=== PATIENT | female | born 1975 | race Caucasian/White ===

== ENCOUNTER 2022-03-11 22:39 | Emergency (ER) | payer OTHER, SELFPAY ==
--- OUTSIDE RECORDS SUMMARY | 2022-03-11 22:58 | XMS REPORT | Continuity of Care Document ---
:[address] [facility] t Address [address] [place] [address] Care Team Providers Name Role Phone SONG Primary Care Physician Unavailable Maynor LOVETT, L Attending Clinician Unavailable Tadeo PITTS Attending Clinician TADEO Attending Clinician Unavailable BIPIN Attending Clinician Unavailable Mac PITTS S Attending Clinician Davon Attending Clinician Karina FU, F Attending Clinician Arnoldo PITTS Attending Clinician LUCILA MONTES Attending Clinician Unavailable Tarun PITTS Attending Clinician Alex LOPES Attending Clinician Ridge FU Attending Clinician Malinda Tadeo MD Attending Clinician Iris Duval MD Attending Clinician Wilson Perez MD Attending Clinician Truong YIP, G Attending Clinician Singer LOPES Attending Clinician TUSHAR Attending Clinician Unavailable Tushar ANP Attending Clinician Sarah ROMAN, S Attending Clinician Sonam PITTS, Christopher Attending Clinician Lee RN, E Attending Clinician Deuce LOVETT Attending Clinician Unavailable Cassandra Sevilla DO Attending Clinician Juan Ramon PITTS Attending Clinician Sirisha PITTS, H Attending Clinician Dev Pandey Attending Clinician Unavailable WILSON PEREZ Attending Clinician Unavailable JUAN RAMON Attending Clinician Unavailable Lorena PITTS, Elijah Attending Clinician Unknown Attending Clinician Unavailable GREYSON WILEY Attending Clinician Unavailable Greyson Wiley MD Attending Clinician Pob, Lab Main Attending Clinician Unavailable Zack Su MD Attending Clinician Arnoldo PITTS Admitting Clinician Alex LOPES Admitting Clinician Iris Duval MD Admitting Clinician Sonam PITTS, Christopher Admitting Clinician [phone] Juan Ramon PITTS Admitting Clinician JUAN RAMON Admitting Clinician Unavailable ARNOLDO Admitting Clinician Unavailable Claudine PITTS, Greyson Admitting Clinician Payers Payer Name Policy Type Policy Number Effective Date Expiration Date S [facility] [place] PEND[place] 2021 00:00:00 Problems Condition Condition Condition Status Onset Resolution Last Treating Co mments Source Name Details Category Date Date Treatment Clinician Date Abdominal Abdominal Disease Active Uni vers pain pain 6-06 ity of 00:00: [address] Colitis Colitis Disease Active Univers 4-25 ity of 00:00: [address] Nausea & Nausea & Disease Active Unive rs vomiting vomiting 3-12 ity of 00:00: [address] Current Current Disease Active Univers mild mild 1-15 ity of episode [place] major major 00 Medical depressive depressive Br anch disorder, disorder, unspecifie unspecifie d whether d whether recurrent recurrent Hypokalemi Hypokalemi Disease Active U nivers a a 1-15 ity of 00:00: [place] 00 Medical Branch Colitis Colitis Disease Active Univers due to due to 1-15 ity of Clostridiu Clostridiu [place] m m 00 Medical difficile difficile Bran ch Intractabl Intractabl Disease Active 2019-11 U nivers e e 2-17 [place] of abdominal abdominal 00:[place] pain pain 00 [facility] Alcohol-in Alcohol-in Disease Active 2019-11 U nivers duced duced 1-10 ity of chronic chronic 00:00: [place] pancreatit pancreatit 00 Me dical is is Branch Screening Screening Disease Active 2019-11 Uni vers for for 1-10 ity of malignant malignant 00:[place] neoplasm neoplasm 00 Medica l of the of the Branch cervix cervix Need for Need for Disease Active 2019-11 Unive rs diphtheria diphtheria 1-10 it y of -tetanus-p -tetanus-p 00:00[place] ertussis ertussis 00 Medica l (Tdap) (Tdap) Branch vaccine vaccine Need for Need for Disease Active 2019-11 Unive rs immunizati immunizati 1-10 it y of on against on against 00:00: [place] influenza influenza 00 [facility] 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 00:00: [place] gland, gland, 00 Medical unspecifie unspecifie Br anch d d laterality laterality 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 arnieers protein-ca protein-ca 7-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 00:00: [place] malnutriti malnutriti 00 Me dical on on Branch Chronic Chronic Disease Active Univers generalize generalize 6-11 it y of d pain d pain 00:00: [place] 00 [facility] Branch Does not Does not Disease Active Unive rs have have 6-11 ity of health health 00:00: [place] insurance insurance 00 [facility] Intractabl Intractabl Disease Active U nivers e vomiting e vomiting 5-24 it y of 00:00: [place] 00 [facility] Branch Alcohol-in Alcohol-in Disease Active U nivers duced duced 5-01 ity of acute acute 00:00: [place] pancreatit pancreatit 00 Me dical is, is, Branch unspecifie unspecifie d d complicati complicati on status on status Alcoholism Alcoholism Disease Active 2020- U nivers 03-13 ity of 00:00: [place] [facility] Generalize Generalize Disease Active 2020- U nivers d d 03-13 ity of abdominal abdominal 00:00[place] discomfort discomfort 00 Me dical Branch Essential Essential Disease Active Uni vers hypertensi hypertensi 03-13 it y of on on 00:00: [place] [facility] Current Current Disease Active 2020- Univers 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-13 ity of episode of episode of 00:[place] major major 00 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, features, unspecifie unspecifie d whether d whether recurrent recurrent Anxiety Anxiety Disease Active 2019- Univers 03-13 ity of 00:00: [place] [facility] Encounter Encounter Disease Active Uni vers for for 03-13 ity of screening screening 00:00: [place] mammogram mammogram 00 [facility] for for Branch malignant malignant neoplasm neoplasm of breast of breast [facility] Disease Active Unive rs discharge discharge 03-13 ity of follow-up follow-up 00:00[place] [facility] Nicotine Nicotine Disease Active Unive rs dependence dependence 03-13 it y of , , 00:00: [place] cigarettes cigarettes 00 Me dical , , Branch uncomplica uncomplica carrie carrie Tobacco Tobacco Disease Active Univers dependence dependence 03-13 it y of 00:00: [place] [facility] Abnormal Abnormal Disease Active Unive rs CT of the CT of the 03-04 ity of abdomen abdomen 00:00: [place] 00 Medical Branch Vomiting, Vomiting, Disease Active 2020 Uni vers intractabi intractabi 03-02 it y of lity of lity of 00:00: [place] vomiting vomiting 00 Medica l not not Branch specified, specified, presence presence of nausea of nausea not not specified, specified, unspecifie unspecifie d vomiting d vomiting type type Allergies, Adverse Reactions, Alerts Allergy Allergy Status Severity Reaction(s) Onset Inactive Treating Comm ents Source Name Type Date Date Clinician Ceftriax Propensi Active Anaphylaxis 2020-0 U nivers one ty to 4-22 ity of Sodium adverse 00:00: [place] reaction 00 Medical s Branch CEFTRIAX DRUG Active Anaphylaxis 2020-0 Uni vers ONE INGREDI 4-22 ity of SODIUM 00:00: [place] 00 Medical Branch NO KNOWN Drug Active Univers ALLERGIE Class ity of S [facility] Social History Social Habit Start Date Stop Date Quantity Comments Source History of tobacco Cigarette Smoker [facility] Exposure to Not sure University SARS-CoV-2 (event) [facility] Cigarettes smoked 2021-05-01 2021-05-01 Univers ity of current (pack per 00:00:00 00:00:00 [facility] ) - Reported Branch Cigarette 2021-05-01 2021-05-01 University of pack-years 00:00:00 00:00:00 [facility] Tobacco use and 2021-05-01 2021-05-01 Never used Universit y of exposure 00:00:00 00:00:00 [facility] Alcohol intake 2021-05-01 2021-05-01 Ex-drinker University of 00:00:00 00:00:00 (finding) [facility] Branch History SDOH 2020-09-29 2020-09-29 3 University o f Financial 00:00:00 00:00:00 [place] [facility] History SDME Food 2020-09-29 2020-09-29 2 Univers ity of Worry 00:00:00 00:00:00 [facility] History SDOH Food 2020-09-29 2020-09-29 2 Univers ity of Scarcity 00:00:00 00:00:00 [facility] History SDOH 2020-09-29 2020-09-29 1 University o f Transport Med 00:00:00 00:00:00 [place] [facility] History SDOH 2020-09-29 2020-09-29 2 University o f Transport Non-Med 00:00:00 00:00:00 [facility] edical Branch History SDOH 2020-09-28 2020-09-28 17 University o f Education 00:00:00 00:00:00 [facility] Alcohol Comment 2020-03-05 2020-03-05 quit Nov 2019 Univer sity of 00:00:00 00:00:00 [facility] Sex Ass[birth year] At [birth year] Universit y of 00:00:00 00:00:00 [place] [facility] Smoking Status Start Date Stop Date Source Unknown if ever smoked Universit y of [facility] Current every day smoker 2021-05-01 00:00[facility]00 [facility] Start Stop Current Ordering Indication Dosage Frequency Signature Comments Components Source Medication Medication Date Date Medication? Clinician (SIG) Name Name pantoprazol No 40mg Take 40 mg Univers e 8-07-08 by mouth ity of (PROTONIX) 22:05: 00:00 [place]. [place] 40 [place] EC 06 :00 Medical tablet Branch pantoprazol 2020- No 40mg Take 40 mg Univers e 8-26 -26 by mouth ity of (PROTONIX) 22:05: 00:00 daily. [place] 40 mg EC 06 :00 Medical tablet Branch PANTOPRAZOL Yes [id number] TAKE ONE Univers E 40 mg EC 8-26 TABLET BY ity of tablet 00:00: MOUTH [place] DAILY Medical Branch PANTOPRAZOL Yes [id number] TAKE ONE Univers E 40 mg EC 8-26 TABLET BY ity of tablet 00:00: MOUTH [place] DAILY Medical Branch PANTOPRAZOL Yes [id number] TAKE ONE Univers E 40 mg EC 8-26 TABLET BY ity of tablet 00:00: MOUTH [place] DAILY Medical Branch PANTOPRAZOL Yes [id number] TAKE ONE Univers E 40 mg EC 8-26 TABLET BY ity of tablet 00:00: MOUTH [place] DAILY Medical Branch levoFLOXaci 2020- No 750mg 750 mg, U nivers n 04-30 Oral, ONCE ity of (LEVAQUIN) 08:45: 07:44 NOW, 1 [place] tablet 750 00 :00 dose, Fri Medi eugenio mg 04/30/21 at Branch 0345, PINEDA
Re ason for Anti-Infec tive: Empiric Therapy for Suspected Infection< br>Empiric Therapy Site: Respirator y
Durat ion of therapy: 72 hours iopamidol 2020- No [id number] 120mL 120 mL, Univers (ISOVUE 04-3018 Intravenou ity o f 370-500 mL) 08:00: 06:48 s, ONCE, 1 [place] injection 00 :00 dose, Fri Medic al 120 mL 6/18/21 at Branch 0300, Routine ketorolac 2020- No 30mg 30 mg, Unive rs (TORADOL) 04-30 Slow IV ity of injection 07:30: 06:37 Push, [place] 30 mg 00 :00 ONCE, 1 Medical dose, Fri Branch 04/30/21 at 0230, Routine
membership counselor approving Restricted medication : RUTH WATTS levoFLOXaci Yes [id number] 750mg Take 1 Univers n 6-18 tablet by ity of (LEVAQUIN) 00:00: mouth [place] 750 mg 00 every 24 Medical tablet (twenty-fo Branch ur) hours. traMADoL 0 Yes [id number] 50mg Take 1 Univers (ULTRAM) 50 6-18 tablet by ity of mg tablet 00:00: mouth [place] 00 every 6 Medical (six) Branch hours as needed for Pain (scale 7-10). Indication s: acute pain levoFLOXaci Yes [id number] 750mg Take 1 Univers n 6-18 tablet by ity of (LEVAQUIN) 00:00: mouth [place] 750 mg 00 every 24 Medical tablet (twenty-fo Branch ur) hours. traMADoL 0 Yes [id number] 50mg Take 1 Univers (ULTRAM) 50 6-18 tablet by ity of mg tablet 00:00: mouth [place] 00 every 6 Medical (six) Branch hours as needed for Pain (scale 7-10). Indication s: acute pain levoFLOXaci 0 Yes [id number] 750mg Take 1 Univers n 6-18 tablet by ity of (LEVAQUIN) 00:00: mouth [place] 750 mg 00 every 24 Medical tablet (twenty-fo Branch ur) hours. traMADoL 2020-0 Yes [id number] 50mg Take 1 Univers (ULTRAM) 50 6-18 tablet by ity of mg tablet 00:00: mouth [place] 00 every 6 Medical (six) Branch hours as needed for Pain (scale 7-10). Indication s: acute pain levoFLOXaci 2020-0 Yes [id number] 750mg Take 1 Univers n 6-18 tablet by ity of (LEVAQUIN) 00:00: mouth [place] 750 mg 00 every 24 Medical tablet (twenty-fo Branch ur) hours. traMADoL 2021-0 Yes [id number] 50mg Take 1 Univers (ULTRAM) 50 6-18 tablet by ity of mg tablet 00:00: mouth [place] 00 every 6 Medical (six) Branch hours as needed for Pain (scale 7-10). Indication s: acute pain levoFLOXaci 0 Yes [id number] 750mg Take 1 Univers n 6-18 tablet by ity of (LEVAQUIN) 00:00: mouth [place] 750 mg 00 every 24 Medical tablet (twenty-fo Branch ur) hours. traMADoL Yes [id number] 50mg Take 1 Univers (ULTRAM) 50 6-18 tablet by ity of mg tablet 00:00: mouth [place] 00 every 6 Medical (six) Branch hours as needed for Pain (scale 7-10). Indication s: acute pain levoFLOXaci Yes [id number] 750mg Take 1 Univers n 6-18 tablet by ity of (LEVAQUIN) 00:00: mouth [place] 750 mg 00 every 24 Medical tablet (twenty-fo Branch ur) hours. traMADoL Yes [id number] 50mg Take 1 Univers (ULTRAM) 50 6-18 tablet by ity of mg tablet 00:00: mouth [place] 00 every 6 Medical (six) Branch hours as needed for Pain (scale 7-10). Indication s: acute pain amLODIPine Yes 10mg Take 10 mg U nivers 10 mg 6-08 by mouth ity of tablet 20:57: daily. [address] busPIRone 5 Yes 5mg Take 5 mg U nivers mg tablet 6-08 by mouth 2 ity of 20:57: (two) [place] 17 times Medical daily. Branch FLUoxetine Yes 40mg Take 40 mg U nivers 40 mg 6-08 by mouth ity of capsule 20:57: daily. [address] lipase-prot Yes 2{capsu Take 2 U nivers ease-amylas 6-08 le} capsules ity of e (CREON) 20:57: by mouth [place] 36,000-114, 17 before Medica l 000- meals. Branch 180,000 Take 2 unit CpDR capsules by mouth with meals and 1 with each snack. metoprolol Yes 25mg Take 25 mg U nivers succinate 6-08 by mouth ity of XL 25 mg 24 20:57: daily. [place] hr tablet 17 Medical Branch pantoprazol Yes 40mg Take 40 mg Univers e 6-08 by mouth ity of (PROTONIX) 20:57: daily. [place] 40 mg EC 17 Medical tablet Branch amLODIPine Yes 10mg Take 10 mg U nivers 10 mg 6-08 by mouth ity of tablet 20:57: daily. [address] busPIRone 5 Yes 5mg Take 5 mg U nivers mg tablet 6-08 by mouth 2 ity of 20:57: (two) [place] 17 times Medical daily. Branch FLUoxetine Yes 40mg Take 40 mg U nivers 40 mg 6-08 by mouth ity of capsule 20:57: daily. [address] lipase-prot Yes 2{capsu Take 2 U nivers ease-amylas 6-08 le} capsules ity of e (CREON) 20:57: by mouth [place] 36,000-114, 17 before Medica l 000- meals. Branch 180,000 Take 2 unit CpDR capsules by mouth with meals and 1 with each snack. metoprolol Yes 25mg Take 25 mg U nivers succinate 6-08 by mouth ity of XL 25 mg 24 20:57: daily. [place] hr tablet [address] [place] [address] Branch pantoprazol Yes 40mg Take 40 mg Univers e 6-08 by mouth ity of (PROTONIX) 20:57: daily. [place] 40 mg EC 17 Medical tablet Branch amLODIPine Yes 10mg Take 10 mg U nivers 10 mg 6-08 by mouth ity of tablet 20:57: daily. [address] busPIRone 5 Yes 5mg Take 5 mg U nivers mg tablet 6-08 by mouth 2 ity of 20:57: (two) [place] 17 times Medical daily. Branch FLUoxetine 0 Yes 40mg Take 40 mg U nivers 40 mg 6-08 by mouth ity of capsule 20:57: daily. [address] lipase-prot Yes 2{capsu Take 2 U nivers ease-amylas 6-08 le} capsules ity of e (CREON) 20:57: by mouth [place] 36,000-114, 17 before Medica l 000- meals. Branch 180,000 Take 2 unit CpDR capsules by mouth with meals and 1 with each snack. metoprolol 0 Yes 25mg Take 25 mg U nivers succinate 6-08 by mouth ity of XL 25 mg 24 20:57: daily. [place] hr tablet 17 Medical Branch pantoprazol Yes 40mg Take 40 mg Univers e 6-08 by mouth ity of (PROTONIX) 20:57: daily. [place] 40 mg EC 17 Medical tablet Branch amLODIPine 0 Yes 10mg Take 10 mg U nivers 10 mg 6-08 by mouth ity of tablet 20:57: daily. [address] Branch busPIRone 5 Yes 5mg Take 5 mg U nivers mg tablet 6-08 by mouth 2 ity of 20:57: (two) [place] 17 times Medical daily. Branch FLUoxetine Yes 40mg Take 40 mg U nivers 40 mg 6-08 by mouth ity of capsule 20:57: daily. [address] lipase-prot Yes 2{capsu Take 2 U nivers ease-amylas 6-08 le} capsules ity of e (CREON) 20:57: by mouth [place] 36,000-114, 17 before Medica l 000- meals. Branch 180,000 Take 2 unit CpDR capsules by mouth with meals and 1 with each snack. metoprolol Yes 25mg Take 25 mg U nivers succinate 6-08 by mouth ity of XL 25 mg 24 20:57: daily. [place] hr tablet Medical Branch pantoprazol Yes 40mg Take 40 mg Univers e 6-08 by mouth ity of (PROTONIX) 20:57: daily. [place] 40 mg EC 17 Medical tablet Branch amLODIPine 0 Yes 10mg Take 10 mg U nivers 10 mg 6-08 by mouth ity of tablet 20:57: daily. [address] busPIRone 5 Yes 5mg Take 5 mg U nivers mg tablet 6-08 by mouth 2 ity of 20:57: (two) [place] 17 times Medical daily. Branch FLUoxetine 0 Yes 40mg Take 40 mg U nivers 40 mg 6-08 by mouth ity of capsule 20:57: daily. [address] lipase-prot Yes 2{capsu Take 2 U nivers ease-amylas 6-08 le} capsules ity of e (CREON) 20:57: by mouth [place] 36,000-114, 17 before Medica l 000- meals. Branch 180,000 Take 2 unit CpDR capsules by mouth with meals and 1 with each snack. metoprolol Yes 25mg Take 25 mg U nivers succinate 6-08 by mouth ity of XL 25 mg 24 20:57: daily. [place] hr tablet 17 [facility] amLODIPine Yes 10mg Take 10 mg U nivers 10 mg 6-08 by mouth ity of tablet 20:57: daily. [address] busPIRone 5 Yes 5mg Take 5 mg U nivers mg tablet 6-08 by mouth 2 ity of 20:57: (two) [place] [address] times Medical daily. Branch FLUoxetine Yes 40mg Take 40 mg U nivers 40 mg 6-08 by mouth ity of capsule 20:57: daily. [address] lipase-prot Yes 2{capsu Take 2 U nivers ease-amylas 6-08 le} capsules ity of e (CREON) 20:57: by mouth [place] 36,000-114, 17 before Medica l 000- meals. Branch 180,000 Take 2 unit CpDR capsules by mouth with meals and 1 with each snack. metoprolol Yes 25mg Take 25 mg U nivers succinate 6-08 by mouth ity of XL 25 mg 24 20:57: daily. [place] hr tablet [address] [place] [address] amLODIPine Yes 10mg Take 10 mg U nivers 10 mg 6-08 by mouth ity of tablet 20:57: daily. [address] busPIRone 5 Yes 5mg Take 5 mg U nivers mg tablet 6-08 by mouth 2 ity of 20:57: (two) [place] [address] times Medical daily. Branch FLUoxetine Yes 40mg Take 40 mg U nivers 40 mg 6-08 by mouth ity of capsule 20:57: daily. [address] lipase-prot Yes 2{capsu Take 2 U nivers ease-amylas 6-08 le} capsules ity of e (CREON) 20:57: by mouth [place] 36,000-114, 17 before Medica l 000- meals. Branch 180,000 Take 2 unit CpDR capsules by mouth with meals and 1 with each snack. metoprolol Yes 25mg Take 25 mg U nivers succinate 6-08 by mouth ity of XL 25 mg 24 20:57: daily. [place] hr tablet [address] [place] [address] Branch amLODIPine Yes 10mg Take 10 mg U nivers 10 mg 6-08 by mouth ity of tablet 20:57: daily. [address] busPIRone 5 Yes 5mg Take 5 mg U nivers mg tablet 6-08 by mouth 2 ity of 20:57: (two) [place] [address] times [facility] daily. Branch FLUoxetine Yes 40mg Take 40 mg U nivers 40 mg 6-08 by mouth ity of capsule 20:57: daily. [address] lipase-prot Yes 2{capsu Take 2 U nivers ease-amylas 6-08 le} capsules ity of e (CREON) 20:57: by mouth [place] 36,000-114, 17 before Medica l 000- meals. Branch 180,000 Take 2 unit CpDR capsules by mouth with meals and 1 with each snack. metoprolol Yes 25mg Take 25 mg U nivers succinate 6-08 by mouth ity of XL 25 mg 24 20:57: daily. [place] hr tablet 17 [facility] Branch acetaminoph Yes [id number] 1{tbl} Take 1-2 Univers en-codeine 6-08 tablets by ity of 300-30 mg 00:00: mouth [place] tablet 00 every 6 Medical (six) Branch hours as needed for Pain (scale 4-6). Indication s: acute pain acetaminoph Yes 4647 1{tbl} Take 1-2 Univers en-codeine 6-08 tablets by ity of 300-30 mg 00:00: mouth [place] tablet 00 every 6 Medical (six) Branch hours as needed for Pain (scale 4-6). Indication s: acute pain acetaminoph Yes 4647 1{tbl} Take 1-2 Univers en-codeine 6-08 tablets by ity of 300-30 mg 00:00: mouth [place] tablet 00 every 6 Medical (six) Branch hours as needed for Pain (scale 4-6). Indication s: acute pain acetaminoph 2020-0 Yes 4647 1{tbl} Take 1-2 Univers en-codeine 6-08 tablets by ity of 300-30 mg 00:00: mouth [place] tablet 00 every 6 Medical (six) Branch hours as needed for Pain (scale 4-6). Indication s: acute pain acetaminoph 2020-0 Yes 4647 1{tbl} Take 1-2 Univers en-codeine 6-08 tablets by ity of 300-30 mg 00:00: mouth [place] tablet 00 every 6 Medical (six) Branch hours as needed for Pain (scale 4-6). Indication s: acute pain acetaminoph 2020-0 Yes 4647 1{tbl} Take 1-2 Univers en-codeine 6-08 tablets by ity of 300-30 mg 00:00: mouth [place] tablet 00 every 6 Medical (six) Branch hours as needed for Pain (scale 4-6). Indication s: acute pain acetaminoph 2020-0 Yes 4647 1{tbl} Take 1-2 Univers en-codeine 6-08 tablets by ity of 300-30 mg 00:00: mouth [place] tablet 00 every 6 Medical (six) Branch hours as needed for Pain (scale 4-6). Indication s: acute pain acetaminoph 2020-0 Yes 4647 1{tbl} Take 1-2 Univers en-codeine 6-08 tablets by ity of 300-30 mg 00:00: mouth [place] tablet 00 every 6 Medical (six) Branch hours as needed for Pain (scale 4-6). Indication s: acute pain nicotine 14 2020- No [id number] 1{patch Apply 1 Univers mg/24 hr 04-20 } Patch to ity of patch 00:00: 04:59 area(s) [place] 00 :00 every 24 Medical (twenty-fo Branch ur) hours for 30 days. nicotine 14 2020-2020- No [id number] 1{patch Apply 1 Univers mg/24 hr 04-20 } Patch to ity of patch 00:00: 04:59 area(s) [place] 00 :00 every 24 Medical (twenty-fo Branch ur) hours for 30 days. nicotine 14 2020- No [id number] 1{patch Apply 1 Univers mg/24 hr 04-20 } Patch to ity of patch 00:00: 04:59 area(s) [place] 00 :00 every 24 Medical ([facility] Branch ur) hours for 30 days. levoFLOXaci 2020- No [id number] 750mg Take 1 Univers n 750 mg 04-20 tablet by ity o f tablet 00:00: 04:59 mouth [place] 00 :00 every 24 Medical ([facility] Branch ur) hours for 4 days. metroNIDAZO 2020- No [id number] 500mg Take 2 Univers LE 250 mg 04-20 tablets by ity of tablet 00:00: 04:59 mouth [place] 00 :00 every 8 Medical (eight) Branch hours for 4 days. levoFLOXaci 2020- No [id number] 750mg Take 1 Univers n 750 mg 04-20 tablet by ity o f tablet 00:00: 04:59 mouth [place] 00 :00 every 24 Medical ([facility] Branch ur) hours for 4 days. metroNIDAZO 2020- No [id number] 500mg Take 2 Univers LE 250 mg 04-20 tablets by ity of tablet 00:00: 04:59 mouth [place] 00 :00 every 8 Medical (eight) Branch hours for 4 days. levoFLOXaci Yes 750mg 750 mg, IV Univers n in D5W 04-19 Piggyback, ity o f (LEVAQUIN) 19:00: Q24H ABX, [place] mg/150 00 First dose Med ical mL (after Branch Piggyback last 750 mg reorder) on Mon04/19/21 at 1400, Until Discontinu ed, 150 mL
Reas on for Anti-Infec tive: Empiric Therapy for Suspected Infection< br>Empiric Therapy Site: Abdominal< br>Duratio n of therapy: 7 days FLUoxetine Yes 40mg 40 mg, Unive rs (PROZAC) 04-19 Oral, ity of capsule 40 14:00: DAILY, [place] mg 00 First dose Medical on Mon04/19/21 at 0900, Until Discontinu ed, Routine pantoprazol Yes 40mg 40 mg, Univ ers e 04-19 Oral, ity of (PROTONIX) 14:00: DAILY, [place] EC tablet 00 First dose Medi eugenio 40 mg on Mon04/19/21 at 0900, Until Discontinu ed, Routine metoprolol Yes 25mg 25 mg, [facility] rs succinate 04-19 Oral, ity of XL (TOPROL 14:00: DAILY, [place] XL) tablet 00 First dose Med ical 25 mg on Mon04/19/21 at 0900, Until Discontinu ed, Routine amLODIPine Yes 10mg 10 mg, Unive rs (NORVASC) 04-19 Oral, ity of tablet 10 14:00: DAILY, [place] mg 00 First dose Medical on Mon04/19/21 at 0900, Until Discontinu ed, Routine metroNIDAZO Yes 500mg 500 mg, IV Univers LE in NaCl 04-19 Piggyback, ity of (iso-os) 05:00: Q8H ABX, [place] (FLAGYL 00 First dose Medica l I.V.) RTU (after Branch IV infusion last 500 mg reorder) on Mon04/19/21 at 0000, Until Discontinu ed, 100 mL
Reas on for Anti-Infec tive: Empiric Therapy for Suspected Infection< br>Empiric Therapy Site: Abdominal< br>Duratio n of therapy: 7 days potassium 2020- No 15mmol 15 mmol, U nivers phosphate 04-19 IV ity of 15 mmol in 02:15: 13:42 Piggyback, [place] NaCl 0.9% 00 :00 ONCE, 1 Medical (NS) 150 mL dose, [facility] piggyback 04/18/21 at 2115, 150 mL busPIRone 0 Yes 5mg 5 mg, Univers (BUSPAR) 04-19 Oral, BID, ity o f tablet 5 mg 01:00: First dose [place] 00 on [facility] 04/18/21 at Branch 2000, Until Discontinu ed, Routine lipase-prot 0 Yes 2{capsu 2 capsule, Univers ease-amylas 04-18 le} Oral, TID ity of e (CREON) 23:00: MEALS, [place] 12,000-38,0 00 First dose Me dical 00 -60,000 on [place] Branch unit 04/18/21 at capsule 2 1800, capsule Until Discontinu ed HYDROcodone Yes 1{tbl} 1 tablet, Univers -acetaminop 04-18 Oral, ity of hen (NORCO 22:37: Q6HPRN, [place] 5) 5-325 mg 56 Starting Medi eugenio tablet 1 [place] 04/18/21 Branc h tablet at 1737, Until Discontinu ed, Routine, Pain (scale 4-6) D5W 0.45% 2020- No IV Univers NaCl 04-18-07 Infusion, ity of (1/2NS) 1 L 21:00: 13:26 at 100 [place] Enrique as + KCL 20 00 :19 mL/hr, Medical mEq CONTINUOUS Branch , Starting 04/18/21 at 1600, Until 04/19/21 at 0826, Routine acetaminoph Yes 650mg 650 mg, Un yogesh en 04-18 Oral, ity of (TYLENOL) 19:56: Q6HPRN, [place] tablet 650 43 Starting Medic al mg [place] 04/18/21 Branch at 1456, Until Discontinu ed, Routine, Pain (scale 1-3) morpHINE Yes 4mg 4 mg, Slow Uni vers injection 4 04-18 IV Push, ity of mg 19:56: Q6HPRN, [place] 01 Starting Medical [place] 04/18/21 Branch at 1456, Until Discontinu ed, STAT, Pain (scale 7-10) proMETHazin Yes 12.5mg 12.5 mg, Univers e 04-18 IV ity of (PHENERGAN) 19:55: Piggyback, [place] 12.5 mg in 51 Q4HPRN, Medica l NaCl 0.9% Starting Branch (NS) 50 mL [place] 04/18/21 IV at 1455, piggyback Until Discontinu ed, Routine, Nausea and Vomiting (N/V) morpHINE 2020- No 4mg 4 mg, Slow Un yogesh injection 4 04-18 06-06 IV Push, ity of mg 18:30: 17:40 ONCE, 1 [place] 00 :00 dose, [place] [facility] 04/18/21 at Branch 1330, STAT KCL 2020- No 40meq 40 mEq, Univers (KLOR-CON 04-18 Oral, ity of M20) tablet 18:15: 17:29 ONCE, 1 [place] 40 mEq 00 :00 dose, [facility] 04/18/21 at Branch 1315, Routine metroNIDAZO 2020- No 500mg 500 mg, IV Univers LE in NaCl 04-18 Piggyback, it y of (iso-os) 18:15: 18:56 ONCE, 1 [place] (FLAGYL 00 :00 dose, [place] [facility] I.V.) RTU 04/18/21 at [facility] h IV infusion 1315, 100 500 mg mL
Reas on for Anti-Infec tive: Empiric Therapy for Suspected Infection< br>Empiric Therapy Site: Abdominal< br>Duratio n of therapy: 7 days iopamidol 2020- No [id number] 100mL 100 mL, Univers (ISOVUE 04-18 Intravenou ity o f 370-500 mL) 18:15: 17:00 s, ONCE, 1 [place] injection 00 :00 dose, [place] Medic al 100 mL 04/18/21 at Branch 1315, Routine NaCl 0.9% 2020- No 1000mL at 999 Uni vers (NS) bolus 04-18 mL/hr, ity of infusion 17:15: 18:40 1,000 mL, [place] Enrique as 1,000 mL 00 :00 IV Medical Infusion, [place] ONCE, 1 dose, 04/18/21 at 1215, STAT levoFLOXaci 2020- No 750mg 750 mg, IV Univers n in D5W 04-18 Piggyback, ity of (LEVAQUIN) 17:15: 20:11 ONCE, 1 [place] Enrique as 750 mg/150 00 :00 dose, [place] [facility] mL 04/18/21 at [place] Piggyback 1215, 150 750 mg mL
Reas on for Anti-Infec tive: Empiric Therapy for Suspected Infection< br>Empiric Therapy Site: Abdominal< br>Duratio n of therapy: 7 days diphenhydrA 2020- No 25mg 25 mg, Uni vers MINE 04-18 Slow IV ity of (BENADRYL) 17:15: 18:47 Push, [place] injection 00 :00 ONCE, 1 Medical 25 mg dose, [facility] 04/18/21 at 1215, STAT haloperidol 2020- No 2.5mg 2.5 mg, U nivers lactate 04-18 Intravenou ity o f (HALDOL) 17:15: 16:14 s, ONCE, 1 [place] injection 00 :00 dose, [place] [facility] al 2.5 mg 04/18/21 at Branch 1215, STAT morpHINE 2020- No 4mg 4 mg, Slow Un yogesh injection 4 04-18 IV Push, ity of mg 16:45: 15:57 ONCE, 1 [place] 00 :00 dose, [place] [facility] 04/18/21 at Branch 1145, STAT metoclopram 2020- No 10mg 10 mg, Uni vers curtis HCl 04-18 Slow IV ity of (REGLAN) 16:30: 15:24 Push, [place] injection 00 :00 ONCE, 1 Medical 10 mg dose, [facility] 04/18/21 at 1130, PINEDA NaCl 0.9% 2020- No 1000mL at 999 Uni vers (NS) bolus 04-18 mL/hr, ity of infusion 16:00: 16:48 1,000 mL, [place] Enrique as 1,000 mL 00 :00 IV Medical Infusion, [place] ONCE, 1 dose, [place] 04/18/21 at 1100, PIENDA lipase-prot 2020- No Take 2 Uni vers ease-amylas 03-10-28 TAB-CAP/M2 i ty of e (CREON) 14:32: 00:00 by mouth [place] Enrique as 36,000-114, 33 :00 before Medica l 000- meals. [place] 180,000 Take 2 unit CpDR capsules by mouth with meals and 1 with each snack. amLODIPine 2020- No [id number] 10mg Take 1 Univers 10 mg 03-10 tablet by ity of tablet 00:00: 04:59 mouth [place] 00 :00 daily for Medical 30 days. [place] busPIRone 5 2020- No [id number] 5mg Take 1 Univers mg tablet 03-10-29 tablet by ity of 00:00: 04:59 mouth 2 [place] 00 :00 (two) Medical times [place] daily for 30 days. FLUoxetine 2020- No [id number] 40mg Take 1 Univers 40 mg - 05-29 capsule by ity of capsule 00:00: 04:59 mouth [place] 00 :00 daily for Medical 30 days. Branch lipase-prot 2020- No [id number] Take 2 Univers ease-amylas 4-28 05-29 TAB-CAP/M2 i ty of e (CREON) 00:00: 04:59 by mouth [place] Enrique as 36,000-114, 00 :00 before Medica l 000- meals for Branch 180,000 30 days. unit CpDR Take 2 capsules by mouth with meals and 1 with each snack. metoprolol 2020- No [id number] 25mg Take 1 Univers succinate -09 04-29 tablet by ity of XL 25 mg 24 00:00: 04:59 mouth [place] hr tablet 00 :00 daily for Medic al 30 days. Branch pantoprazol 2020- No [id number] 40mg Take 1 Univers e 40 mg EC 03-10-29 tablet by ity of tablet 00:00: 04:59 mouth [place] 00 :00 daily for Medical 30 days. Branch amLODIPine 2020- No [id number] 10mg Take 1 Univers 10 mg -09 04-29 tablet by ity of tablet 00:00: 04:59 mouth [place] 00 :00 daily for Medical 30 days. Branch busPIRone 5 2020- No [id number] 5mg Take 1 Univers mg tablet 03-10-29 tablet by ity of 00:00: 04:59 mouth 2 [place] 00 :00 (two) Medical times [place] daily for 30 days. FLUoxetine 2020- No [id number] 40mg Take 1 Univers 40 mg - 05-29 capsule by ity of capsule 00:00: 04:59 mouth [place] 00 :00 daily for Medical 30 days. Branch lipase-prot 2020- No [id number] Take 2 Univers ease-amylas 4-28 05-29 TAB-CAP/M2 i ty of e (CREON) 00:00: 04:59 by mouth [place] Enrique as 36,000-114, 00 :00 before Medica l 000- meals for Branch 180,000 30 days. unit CpDR Take 2 capsules by mouth with meals and 1 with each snack. metoprolol 2020- No [id number] 25mg Take 1 Univers succinate 03-10 tablet by ity of XL 25 mg 24 00:00: 04:59 mouth [place] hr tablet 00 :00 daily for Medic al 30 days. Branch pantoprazol 2020- No [id number] 40mg Take 1 Univers e 40 mg EC 03-10 tablet by ity of tablet 00:00: 04:59 mouth [place] 00 :00 daily for Medical 30 days. Branch proMETHazin 2020- No [id number] 12.5mg Insert 1 Univers e 12.5 mg 03-10 Suppositor ity of suppository 00:00: 04:59 y into [place] Enrique as 00 :00 rectum Medical every 4 Branch (four) hours as needed for N/V unresponsi ve to Ondansetro n for up to 15 days. proMETHazin No [id number] 12.5mg Insert 1 Univers e 12.5 mg 03-10 Suppositor ity of suppository 00:00: 04:59 y into [place] Enrique as 00 :00 rectum Medical every 4 Branch (four) hours as needed for N/V unresponsi ve to Ondansetro n for up to 15 days. acetaminoph 2020- No [id number] 1{tbl} Take 1 U nivers en-codeine 03-10- tablet by ity of 300-30 mg 00:00: 04:59 mouth [place] tablet 00 :00 every 4 Medical (four) Branch hours as needed for Pain (scale 7-10) for up to 7 days. Indication s: acute pain acetaminoph 2020- No [id number] 1{tbl} Take 1 U nivers en-codeine 03-10-06 tablet by ity of 300-30 mg 00:00: 04:59 mouth [place] tablet 00 :00 every 4 Medical (four) Branch hours as needed for Pain (scale 7-10) for up to 7 days. Indication s: acute pain ciprofloxac 2020- No [id number] 500mg Take 1 Univers in HCl 500 03-10 tablet by ity of mg tablet 00:00: 04:59 mouth [place] 00 :00 every 12 Medical (twelve) Branch hours for 3 days. metroNIDAZO 2020- No [id number] 500mg Take 1 Univers LE 500 mg 03-10- tablet by ity of tablet 00:00: 04:59 mouth [place] 00 :00 every 8 Medical (eight) Branch hours for 3 days. acetaminoph Yes 1{tbl} 1 tablet, Univers en-codeine 03-09 Oral, ity of (TYLENOL 21:10: Q4HPRN, [place] #3) 300-30 45 Starting Medic al mg tablet 1 Mon tablet 03/09/21 at 1610, Until Discontinu ed, Routine, Pain (scale 7-10) FENTanyl PF 2020- No 50ug 50 mcg, Un yogesh (SUBLIMAZE 03-08 Slow IV ity o f (PF)) 22:31: 21:11 Push, [place] injection 56 :00 Q3HPRN, Medical 50 mcg Starting Branch Mon03/08/21 at 1731, Until Mon03/09/21 at 1611, Routine, Pain (scale 7-10) FENTanyl PF 2020- No 100ug 100 mcg, Univers (SUBLIMAZE 03-08 Slow IV ity o f (PF)) 19:08: 22:33 Push, [place] injection 03 :12 Q3HPRN, Medical 100 mcg Starting Branch Mon03/08/21 at 1408, Until Mon03/08/21 at 1733, Routine, Pain (scale 7-10) diphenhydrA Yes 25mg 25 mg, Univ ers MINE 03-08 Slow IV ity of (BENADRYL) 15:10: Push, [place] injection 49 Q6HPRN, Medical 25 mg Starting Branch Mon03/08/21 at 1010, Until Discontinu ed, Routine, anxiety / intractabl e nausea FLUoxetine Yes 40mg 40 mg, Unive rs (PROZAC) 03-08 Oral, ity of capsule 40 14:00: DAILY, [place] mg 00 First dose Medical on Mon26/21 at 0900, Until Discontinu ed, Routine pantoprazol Yes 40mg 40 mg, Univ ers e 03-08 Oral, ity of (PROTONIX) 14:00: DAILY, [place] EC tablet 00 First dose Medi eugenio 40 mg on [facility] 03/08/21 at 0900, Until Discontinu ed, Routine metoprolol Yes 25mg 25 mg, Unive rs succinate 03-08 Oral, ity of XL (TOPROL 14:00: DAILY, [place] XL) tablet 00 First dose Med ical 25 mg on Mon [place] 03/08/21 at 0900, Until Discontinu ed, Routine amLODIPine Yes 10mg 10 mg, Unive rs (NORVASC) 03-08 Oral, ity of tablet 10 14:00: DAILY, [place] mg 00 First dose Medical on [facility] 03/08/21 at 0900, Until Discontinu ed, Routine NaCl 0.9% 2020- No 1000mL at 100 Uni vers (NS) IV 03-08 04-28 mL/hr, IV ity of infusion 01:15: 14:23 Infusion, [place] Enrique as 1,000 mL 00 :30 CONTINUOUS Medic al , Starting Branch [place] 03/07/21 at 2015, Until Mon03/10/21 at 0923, Routine busPIRone Yes 5mg 5 mg, Univers (BUSPAR) 03-08 Oral, BID, ity o f tablet 5 mg 01:00: First dose [place] 00 on [facility] 03/07/21 at Branch 2000, Until Discontinu ed, Routine lipase-prot 0 Yes 1{capsu 1 capsule, Univers ease-amylas 03-07 le} Oral, TID ity of e 22:00: MEALS, [place] (PANCREAZE) 00 First dose Me dical 16,800-56,8 on [facility] 00- 98,400 03/07/21 at unit 1700, capsule 1 Until capsule Discontinu ed enoxaparin 0 Yes 40mg 40 mg, Unive rs (LOVENOX) 03-07 Subcutaneo ity of injection 22:00: us, DAILY, [place] 40 mg 00 First dose Medical on [facility] 03/07/21 at 1700, Until Discontinu ed, Routine ketorolac No 15mg 15 mg, Unive rs (TORADOL) 03-0727 Slow IV ity of injection 21:07: 00:46 Push, [place] 15 mg 38 :00 Q8HPRN, 4 Medical doses, Branch Starting [place] 03/07/21 at 1607, Until Discontinu ed, Routine, Breakthrou gh pain
Fa culty member approving Restricted medication : MADDY COBURN FENTanyl PF No 100ug 100 mcg, Univers (SUBLIMAZE 03-07-25 Slow IV ity o f (PF)) 20:30: 19:30 Push, [place] injection 00 :00 ONCE, 1 Medical 100 mcg dose, [facility] 03/07/21 at 1530, STAT metroNIDAZO Yes 500mg 500 mg, IV Univers LE in NaCl 03-07 Infusion, ity of (iso-os) 19:30: Q8H ABX, [place] (FLAGYL 00 First dose Medica l I.V.) RTU on [facility] IV infusion 03/07/21 at 500 mg 1430, Until Discontinu ed, 100 mL
Reas on for Anti-Infec tive: Documented Infection< br>Documen carrie Infection Site: Abdominal< br>Dura tion of Therapy: Other (see Comments) ciprofloxac Yes 400mg 400 mg, IV Univers in in 5 % 25 Piggyback, ity of dextrose 19:30: Administer [place] Enrique as (CIPRO) 00 over 60 Medical piggyback Minutes, Branch 400 mg Q12H ABX, First dose on [place] 03/07/21 at 1430, Until Discontinu ed, PINEDA
Re ason for Anti-Infec tive: Documented Infection< br>Documen carrie Infection Site: Abdominal< br>Duratio n of Therapy: Other (see Comments) NaCl 0.9% No 1000mL at 999 Uni vers (NS) bolus 03-07 04-25 mL/hr, ity of infusion 19:30: 19:28 1,000 mL, [place] Enrique as 1,000 mL 00 :00 IV Medical Infusion, Branch ONCE, 1 dose, [place] 03/07/21 at 1430, STAT proMETHazin 2020- No 12.5mg 12.5 mg, Univers e 03-07 IV ity of (PHENERGAN) 18:45: 17:40 Piggyback, [place] 12.5 mg in 00 :00 ONCE, 1 Medica l NaCl 0.9% dose, [facility] h (NS) 50 mL 03/07/21 at piggyback 1345, 50 mL FENTanyl PF 2020- No 100ug 100 mcg, Univers (SUBLIMAZE 03-07 Slow IV ity o f (PF)) 18:45: 17:39 Push, [place] injection 00 :00 ONCE, 1 Medical 100 mcg dose, [facility] 03/07/21 at 1345, STAT proMETHazin Yes 12.5mg 12.5 mg, Univers e 03-07 Rectal, ity of (PROMETHEGA 18:37: Q4HPRN, [place] Enrique as N) 34 Starting Medical suppository [facility] 12.5 mg 03/07/21 at 1337, Until Discontinu ed, Routine, N/V unresponsi ve to Ondansetro n ondansetron Yes 4mg 4 mg, Slow Univers (ZOFRAN 03-07 IV Push, ity of (PF)) 18:37: Q6HPRN, [place] injection 4 07 Starting Medi eugenio mg [facility] 03/07/21 at 1337, Until Discontinu ed, Routine, Nausea and Vomiting (N/V) FENTanyl PF 2020- No 50ug 50 mcg, Un yogesh (SUBLIMAZE 03-07 Slow IV ity o f (PF)) 18:34: 18:33 Push, [place] injection 42 :42 Q3HPRN, Medical 50 mcg Starting Branch [place] 03/07/21 at 1334, Until 03/08/21 at 1333, Routine, Pain (scale 7-10) traMADoL No 50mg 50 mg, Univer s (ULTRAM) 03-07 Oral, ity of tablet 50 18:34: 18:33 Q8HPRN, [place] mg 38 :38 Starting Medical [facility] 03/07/21 at 1334, Until 03/09/21 at 1333, Routine, Pain (scale 4-6) acetaminoph Yes 650mg 650 mg, Un yogesh en 4-25 Oral, ity of (TYLENOL) 18:34: Q6HPRN, [place] tablet 650 35 Starting Medic al mg [facility] 03/07/21 at 1334, Until Discontinu ed, Routine, Pain (scale 1-3) ondansetron 2020- No 4mg 4 mg, Slow Univers (ZOFRAN 03-07 04-25 IV Push, ity of (PF)) 17:45: 16:39 ONCE, 1 [place] injection 4 00 :00 dose, [place] Med ical mg 03/07/21 at Branch 1245, PINEDA iohexol 2020- No [id number] 100mL 100 mL, U nivers (OMNIPAQUE 03-0725 Intravenou it y of 350 17:30: 17:18 s, ONCE, 1 [place] BULK-100 00 :00 dose, [place] Medica l mL) 03/07/21 at [place] injection 1230, 100 mL Routine morpHINE 2020- No 4mg 4 mg, Slow Un yogesh injection 4 03-07 04-25 IV Push, ity of mg 17:30: 16:34 ONCE, 1 [place] 00 :00 dose, [place] [facility] 03/07/21 at Branch 1230, STAT NaCl 0.9% 2020- No 1000mL at 999 Uni vers (NS) bolus 03-07 04-25 mL/hr, ity of infusion 17:30: 18:27 1,000 mL, [place] Enrique as 1,000 mL 00 :00 IV Medical Infusion, [place] ONCE, 1 dose, [place] 03/07/21 at 1230, STAT proMETHazin Yes [id number] 25mg Take 1 Univers e 25 mg 4-14 tablet by ity of tablet 00:00: mouth [place] 00 every 6 Medical (six) Branch hours as needed for Nausea and Vomiting (N/V). ondansetron Yes [id number] 4mg Take 1 Univers (ZOFRAN) 4 4-14 tablet by ity of mg tablet 00:00: mouth [place] 00 every 8 Medical (eight) Branch hours as needed for Nausea and Vomiting (N/V). proMETHazin 0 2020- No [id number] 25mg Take 1 Univers e 25 mg 4-14 -28 tablet by ity of tablet 00:00: 00:00 mouth [place] 00 :00 every 6 Medical (six) Branch hours as needed for Nausea and Vomiting (N/V). ondansetron 2020- No [id number] 4mg Take 1 Univers (ZOFRAN) 4 4-14 -28 tablet by ity of mg tablet 00:00: 00:00 mouth [place] 00 :00 every 8 Medical (eight) Branch hours as needed for Nausea and Vomiting (N/V). lipase-prot Yes Take 2 Univ ers ease-amylas 3-14 TAB-CAP/M2 it y of e (CREON) 01:22: by mouth [place] 36,000-114, 29 before Medica l 000- meals. Branch 180,000 Take 2 unit CpDR capsules by mouth with meals and 1 with each snack. lipase-prot Yes Take 2 Univ ers ease-amylas 3-14 TAB-CAP/M2 it y of e (CREON) 01:22: by mouth [place] 36,000-114, 29 before Medica l 000- meals. Branch 180,000 Take 2 unit CpDR capsules by mouth with meals and 1 with each snack. lipase-prot Yes Take 2 Univ ers ease-amylas 3-14 TAB-CAP/M2 it y of e (CREON) 01:22: by mouth [place] 36,000-114, 29 before Medica l 000- meals. Branch 180,000 Take 2 unit CpDR capsules by mouth with meals and 1 with each snack. lidocaine 2020- No 1{patch 1 Patch, Univers (LIDODERM) 01-23 } Topical, ity of 5 % (700 15:30: 04:06 Administer [place] mg/patch) 00 :00 over 12 Medical patch 1 Hours, Branch Patch ONCE, 1 dose, 01/23/21 at 0930, Routine enoxaparin Yes 40mg 40 mg, Unive rs (LOVENOX) 01-23 Subcutaneo ity of injection 15:00: us, DAILY, [place] 40 mg 00 First dose Medical on Sat Branch 01/23/21 at 0900, Until Discontinu ed, Routine pantoprazol 2021-0 Yes 40mg 40 mg, Univ ers e 3-13 Oral, ity of (PROTONIX) 15:00: DAILY, [place] EC tablet 00 First dose Medi eugenio 40 mg on [facility] 01/23/21 at 0900, Until Discontinu ed, Routine metoprolol 0 Yes 25mg 25 mg, Unive rs succinate 3-13 Oral, ity of XL (TOPROL 15:00: DAILY, [place] XL) tablet 00 First dose Med ical 25 mg on [facility] 01/23/21 at 0900, Until Discontinu ed, Routine losartan Yes 50mg 50 mg, Univers (COZAAR) 3-13 Oral, ity of tablet 50 15:00: DAILY, [place] mg 00 First dose Medical on [facility] 01/23/21 at 0900, Until Discontinu ed, Routine amLODIPine Yes 10mg 10 mg, Unive rs (NORVASC) 3-13 Oral, ity of tablet 10 15:00: DAILY, [place] mg 00 First dose Medical on [facility] 01/23/21 at 0900, Until Discontinu ed, Routine morpHINE 0 Yes 4mg 4 mg, Slow Uni vers injection 4 -13 IV Push, ity of mg 14:04: Q6HPRN, [place] 09 Starting Medical [facility] 01/23/21 at 0804, Until Discontinu ed, Routine, Pain (scale 7-10) lipase-prot 2020-0 Yes 2{capsu 2 capsule, Univers ease-amylas 3- le} Oral, TID ity of e 14:00: MEALS, [place] (PANCREAZE) 00 First dose Me dical 16,800-56,8 on [facility] Branch 00- 98,400 01/23/21 at unit 0800, capsule 2 Until capsule Discontinu ed busPIRone 0 Yes 5mg 5 mg, Univers (BUSPAR) 3-13 Oral, BID, ity o f tablet 5 mg 14:00: First dose [place] 00 on [facility] 01/23/21 at Branch 0800, Until Discontinu ed, Routine morpHINE 2020-0 2020- No 2mg 2 mg, Slow Un yogesh injection 2 3- 03-13 IV Push, ity of mg 08:14: 08:43 ONCE, 1 [place] 00 :00 dose, [facility] 01/23/21 at Branch 0215, Routine ondansetron 0 Yes 4mg 4 mg, Slow Univers (ZOFRAN 313 IV Push, ity of (PF)) 07:40: Q6HPRN, [place] injection 4 39 Starting Medi eugenio mg Sat [place] 01/23/21 at 0140, Until Discontinu ed, Routine, Nausea and Vomiting (N/V) NaCl 0.9% 0 Yes IV Univers (NS) IV 3 Infusion, ity of infusion 05:15: at 100 [place] 00 mL/hr, Medical CONTINUOUS Branch , Starting 01/22/21 at 2315, Until Discontinu ed, Routine ondansetron 0 2020- No 4mg 4 mg, Slow Univers (ZOFRAN 01-23 IV Push, ity of (PF)) 03:31: 04:09 ONCE, 1 [place] injection 4 00 :00 dose, Mon Med ical mg 01/22/21 at Branch 2145, Routine morpHINE 2020- No 2mg 2 mg, Slow Un yogesh injection 2 01-23 IV Push, ity of mg 03:31: 04:09 ONCE, 1 [place] 00 :00 dose, [facility] Medical 01/22/21 at Branch 2145, Routine acetaminoph 0 Yes 650mg 650 mg, Un yogesh en 3- Oral, ity of (TYLENOL) 03:27: Q6HPRN, [place] tablet 650 55 Starting Medic al mg Fri [place] 01/22/21 at 2127, Until Discontinu ed, Routine, Pain (scale 1-3) proMETHazin 0 Yes 25mg 25 mg, Univ ers e 3-13 Oral, ity of (PHENERGAN) 03:27: Q6HPRN, [place] Enrique as tablet 25 54 Starting Medica l mg Fri [place] 01/22/21 at 2127, Until Discontinu ed, Routine, Nausea and Vomiting (N/V) morpHINE 2020-0 2020- No 4mg 4 mg, Slow Un yogesh injection 4 01-22 IV Push, ity of mg 23:45: 22:55 ONCE, 1 [place] 00 :00 dose, [facility] Medical 01/22/21 at Branch 1745, STAT proMETHazin 2022020- No 25mg 25 mg, IV Univers e 01-22 Piggyback, ity of (PHENERGAN) 23:45: 23:45 ONCE, 1 [place] 25 mg in 00 :00 dose, Fri Medica l NaCl 0.9% 01/22/21 at [facility] ch (NS) 50 mL 1745, 50 piggyback mL diphenhydrA 2020- No 25mg 25 mg, Uni vers MINE 01-22 Intravenou ity of (BENADRYL) 23:15: 22:17 s, ONCE, 1 [place] injection 00 :00 dose, Fri Medic al 25 mg 01/22/21 at Branch 1715, PINEDA metoclopram 2020- No 10mg 10 mg, Uni vers curtis HCl 01-22 Slow IV ity of (REGLAN) 23:15: 22:16 Push, [place] injection 00 :00 ONCE, 1 Medical 10 mg dose, Fri [place] 01/22/21 at 1715, PINEDA haloperidol 2020- No 5mg 5 mg, Univ ers lactate 01-22 Intravenou ity o f (HALDOL) 22:00: 20:58 s, ONCE, 1 [place] injection 5 00 :00 dose, Fri Med ical mg 01/22/21 at Branch 1600, STAT iohexol 2020- No [id number] 120mL 120 mL, U nivers (OMNIPAQUE 01-22 Intravenou it y of 350 21:15: 21:12 s, ONCE, 1 [place] BULK-150 00 :00 dose, Fri Medica l mL) 01/22/21 at Branch injection 1515, 120 mL Routine NaCl 0.9% 2020- No 1000mL at 999 Uni vers (NS) bolus 01-22 mL/hr, ity of infusion 20:30: 01:20 1,000 mL, [place] Enrique as 1,000 mL 00 :00 IV Medical Infusion, Branch ONCE, 1 dose, 01/22/21 at 1430, STAT ondansetron 2020- No 4mg 4 mg, Slow Univers (ZOFRAN 01-22 IV Push, ity of (PF)) 20:30: 20:02 ONCE, 1 [place] injection 4 00 :00 dose, Fri Med ical mg 01/22/21 at Branch 1430, PINEDA morpHINE 2020- No 4mg 4 mg, Slow Un yogesh injection 4 01-2212 IV Push, ity of mg 20:30: 20:02 ONCE, 1 [place] 00 :00 dose, Fri Medical 01/22/21 at Branch 1430, STAT NaCl 0.9% 2020- No 1000mL at 999 Uni vers (NS) bolus 01-2212 mL/hr, ity of infusion 20:00: 22:15 1,000 mL, [place] Enrique as 1,000 mL 00 :00 IV Medical Infusion, Branch ONCE, 1 dose, 01/22/21 at 1400, STAT pantoprazol Yes [id number] 40mg Take 1 Univers e 40 mg EC 3-02 tablet by ity of tablet 00:00: mouth [place] 00 daily. [facility] Branch pantoprazol Yes [id number] 40mg Take 1 Univers e 40 mg EC 3-02 tablet by ity of tablet 00:00: mouth [place] 00 daily. [facility] Branch pantoprazol Yes [id number] 40mg Take 1 Univers e 40 mg EC 3-02 tablet by ity of tablet 00:00: mouth [place] 00 daily. [facility] Branch pantoprazol Yes [id number] 40mg Take 1 Univers e 40 mg EC 3-02 tablet by ity of tablet 00:00: mouth [place] 00 daily. [facility] Branch pantoprazol Yes [id number] 40mg Take 1 Univers e 40 mg EC 3-02 tablet by ity of tablet 00:00: mouth [place] 00 daily. [facility] Branch pantoprazol 2020- No [id number] 40mg Take 1 Univers e 40 mg EC 3-02 04-28 tablet by ity of tablet 00:00: 00:00 mouth [place] 00 :00 daily. [facility] Branch acetaminoph 2020- No [id number] 1{tbl} Take 1 U nivers en-codeine 01-12 03-10 tablet by ity of (TYLENOL-CO 00:00: 05:59 mouth [place] DEINE #3) 00 :00 every 6 Medical 300-30 mg (six) Branch tablet hours as needed for Pain (scale 7-10) for up to 7 days. Indication s: acute pain acetaminoph 2020- No [id number] 1{tbl} Take 1 U nivers en-codeine 3-02 03-10 tablet by ity of (TYLENOL-CO 00:00: 05:59 mouth [place] DEINE #3) 00 :00 every 6 Medical 300-30 mg (six) Branch tablet hours as needed for Pain (scale 7-10) for up to 7 days. Indication s: acute pain proMETHazin Yes [id number] 25mg Take 1 Univers e 25 mg 2-12 tablet by ity of tablet 00:00: mouth [place] 00 every 6 Medical (six) Branch hours as needed for Nausea and Vomiting (N/V). ondansetron Yes [id number] 4mg Take 1 Univers (ZOFRAN) 4 2-12 tablet by ity of mg tablet 00:00: mouth [place] 00 every 8 Medical (eight) Branch hours as needed for Nausea and Vomiting (N/V). proMETHazin Yes [id number] 25mg Take 1 Univers e 25 mg 2-12 tablet by ity of tablet 00:00: mouth [place] 00 every 6 Medical (six) Branch hours as needed for Nausea and Vomiting (N/V). ondansetron 0 Yes [id number] 4mg Take 1 Univers (ZOFRAN) 4 2-12 tablet by ity of mg tablet 00:00: mouth [place] 00 every 8 Medical (eight) Branch hours as needed for Nausea and Vomiting (N/V). proMETHazin 0 Yes [id number] 25mg Take 1 Univers e 25 mg 2-12 tablet by ity of tablet 00:00: mouth [place] 00 every 6 Medical (six) Branch hours as needed for Nausea and Vomiting (N/V). ondansetron 0 Yes [id number] 4mg Take 1 Univers (ZOFRAN) 4 2-12 tablet by ity of mg tablet 00:00: mouth [place] 00 every 8 Medical (eight) Branch hours as needed for Nausea and Vomiting (N/V). proMETHazin 0 Yes [id number] 25mg Take 1 Univers e 25 mg 2-12 tablet by ity of tablet 00:00: mouth [place] 00 every 6 Medical (six) Branch hours as needed for Nausea and Vomiting (N/V). ondansetron 0 Yes [id number] 4mg Take 1 Univers (ZOFRAN) 4 2-12 tablet by ity of mg tablet 00:00: mouth [place] 00 every 8 Medical (eight) Branch hours as needed for Nausea and Vomiting (N/V). proMETHazin 0 Yes [id number] 25mg Take 1 [facility] e 25 mg 2-12 tablet by ity of tablet 00:00: mouth [place] 00 every 6 Medical (six) Branch hours as needed for Nausea and Vomiting (N/V). ondansetron 0 Yes [id number] 4mg Take 1 [facility] (ZOFRAN) 4 2-12 tablet by ity of mg tablet 00:00: mouth [place] 00 every 8 Medical (eight) Branch hours as needed for Nausea and Vomiting (N/V). proMETHazin 0 Yes [id number] 25mg Take 1 [facility] e 25 mg 2-12 tablet by ity of tablet 00:00: mouth [place] 00 every 6 Medical (six) Branch hours as needed for Nausea and Vomiting (N/V). ondansetron Yes [id number] 4mg Take 1 [facility] (ZOFRAN) 4 2-12 tablet by ity of mg tablet 00:00: mouth [place] 00 every 8 Medical (eight) Branch hours as needed for Nausea and Vomiting (N/V). proMETHazin 2020- No [id number] 25mg Take 1 [facility] e 25 mg 2-12 04-14 tablet by ity of tablet 00:00: 00:00 mouth [place] 00 :00 every 6 Medical (six) Branch hours as needed for Nausea and Vomiting (N/V). ondansetron 2020- No [id number] 4mg Take 1 [facility] (ZOFRAN) 4 2-12 04-14 tablet by ity of mg tablet 00:00: 00:00 mouth [place] 00 :00 every 8 Medical (eight) Branch hours as needed for Nausea and Vomiting (N/V). FLUoxetine 0 2020- No 40mg Take 40 mg [facility] (PROZAC) 20 1-15 -15 by mouth ity of mg capsule 15:28: 00:00 [place]. [place] :00 [facility] metoprolol 2020-0 2020- No 25mg Take 25 mg [facility] succinate 1-15 01-15 by mouth ity o f XL 25 mg 24 15:28: 00:00 daily. [place] En[facility] as hr tablet 40 :00 Medical Branch busPIRone 5 0 Yes [id number] 5mg Take 1 [facility] mg tablet 1-15 tablet by ity o f 00:00: mouth 2 [place] 00 (two) Medical times Branch daily. amLODIPine Yes [id number] 10mg Take 1 U nivers 10 mg 1-15 tablet by ity of tablet 00:00: mouth [place] 00 daily. Medical Branch losartan 50 0 Yes [id number] 50mg Take 1 [facility] mg tablet 1-15 tablet by ity o f 00:00: mouth [place] 00 daily. Medical Branch FLUoxetine Yes [id number] 40mg Take 1 U nivers 40 mg 1-15 capsule by ity of capsule 00:00: mouth [place] 00 daily. Medical Branch metoprolol Yes [id number] 25mg Take 1 U nivers succinate 1-15 tablet by ity o f XL 25 mg 24 00:00: mouth [place] hr tablet 00 daily. Medical Branch potassium Yes [id number] 10meq Take 1 U nivers chloride 10 1-15 tablet by ity of mEq CR 00:00: mouth [place] tablet 00 every Medical Monday, Branch Monday and Monday. busPIRone 5 Yes [id number] 5mg Take 1 [facility] mg tablet 1-15 tablet by ity o f 00:00: mouth 2 [place] 00 (two) Medical times Branch daily. amLODIPine Yes [id number] 10mg Take 1 U nivers 10 mg 1-15 tablet by ity of tablet 00:00: mouth [place] 00 daily. Medical Branch losartan 50 0 Yes [id number] 50mg Take 1 [facility] mg tablet 1-15 tablet by ity o f 00:00: mouth [place] 00 daily. Medical Branch FLUoxetine Yes [id number] 40mg Take 1 [facility] nivers 40 mg 1-15 capsule by ity of capsule 00:00: mouth [place] 00 daily. Medical Branch metoprolol Yes [id number] 25mg Take 1 U nivers succinate 1-15 tablet by ity o f XL 25 mg 24 00:00: mouth [place] hr tablet 00 daily. Medical Branch potassium Yes [id number] 10meq Take 1 U nivers chloride 10 1-15 tablet by ity of mEq CR 00:00: mouth [place] tablet 00 every Medical Monday, Branch Monday and Monday. busPIRone 5 Yes [id number] 5mg Take 1 [facility] mg tablet 1-15 tablet by ity o f 00:00: mouth 2 [place] 00 (two) Medical times Branch daily. amLODIPine Yes [id number] 10mg Take 1 U nivers 10 mg 1-15 tablet by ity of tablet 00:00: mouth [place] 00 daily. Medical Branch losartan 50 Yes [id number] 50mg Take 1 [facility] mg tablet 1-15 tablet by ity o f 00:00: mouth [place] 00 daily. Medical Branch FLUoxetine Yes [id number] 40mg Take 1 [facility] nivers 40 mg 1-15 capsule by ity of capsule 00:00: mouth [place] 00 daily. Medical Branch metoprolol Yes [id number] 25mg Take 1 U nivers succinate 1-15 tablet by ity o f XL 25 mg 24 00:00: mouth [place] hr tablet 00 daily. Medical Branch potassium Yes [id number] 10meq Take 1 U nivers chloride 10 1-15 tablet by ity of mEq CR 00:00: mouth [place] tablet 00 every Medical Monday, Branch Monday and Monday. busPIRone 5 Yes [id number] 5mg Take 1 [facility] mg tablet 1-15 tablet by ity o f 00:00: mouth 2 [place] 00 (two) Medical times Branch daily. amLODIPine Yes [id number] 10mg Take 1 U nivers 10 mg 1-15 tablet by ity of tablet 00:00: mouth [place] 00 daily. Medical Branch losartan 50 Yes [id number] 50mg Take 1 [facility] mg tablet 1-15 tablet by ity o f 00:00: mouth [place] 00 daily. Medical Branch FLUoxetine Yes [id number] 40mg Take 1 U nivers 40 mg 1-15 capsule by ity of capsule 00:00: mouth [place] 00 daily. Medical Branch metoprolol Yes [id number] 25mg Take 1 U nivers succinate 1-15 tablet by ity o f XL 25 mg 24 00:00: mouth [place] hr tablet 00 daily. Medical Branch potassium Yes [id number] 10meq Take 1 U nivers chloride 10 1-15 tablet by ity of mEq CR 00:00: mouth [place] tablet 00 every Medical Monday, Branch Monday and Monday. busPIRone 5 Yes [id number] 5mg Take 1 [facility] mg tablet 1-15 tablet by ity o f 00:00: mouth 2 [place] 00 (two) Medical times Branch daily. amLODIPine Yes [id number] 10mg Take 1 U nivers 10 mg 1-15 tablet by ity of tablet 00:00: mouth [place] 00 daily. Medical Branch losartan 50 Yes [id number] 50mg Take 1 [facility] mg tablet 1-15 tablet by ity o f 00:00: mouth [place] 00 daily. Medical Branch FLUoxetine Yes [id number] 40mg Take 1 [facility] nivers 40 mg 1-15 capsule by ity of capsule 00:00: mouth [place] 00 daily. Medical Branch metoprolol Yes [id number] 25mg Take 1 U nivers succinate 1-15 tablet by ity o f XL 25 mg 24 00:00: mouth [place] hr tablet 00 daily. Medical Branch potassium Yes [id number] 10meq Take 1 U nivers chloride 10 1-15 tablet by ity of mEq CR 00:00: mouth [place] tablet 00 every Medical Monday, Branch Monday and Monday. busPIRone 5 Yes [id number] 5mg Take 1 [facility] mg tablet 1-15 tablet by ity o f 00:00: mouth 2 [place] 00 (two) Medical times Branch daily. amLODIPine Yes [id number] 10mg Take 1 U nivers 10 mg 1-15 tablet by ity of tablet 00:00: mouth [place] 00 daily. Medical Branch losartan 50 Yes [id number] 50mg Take 1 [facility] mg tablet 1-15 tablet by ity o f 00:00: mouth [place] 00 daily. Medical Branch FLUoxetine Yes [id number] 40mg Take 1 [facility] nivers 40 mg 1-15 capsule by ity of capsule 00:00: mouth [place] 00 daily. Medical Branch metoprolol Yes [id number] 25mg Take 1 U nivers succinate 1-15 tablet by ity o f XL 25 mg 24 00:00: mouth [place] hr tablet 00 daily. Medical Branch potassium Yes [id number] 10meq Take 1 U nivers chloride 10 1-15 tablet by ity of mEq CR 00:00: mouth [place] tablet 00 every Medical Monday, Branch Monday and Monday. busPIRone 5 Yes [id number] 5mg Take 1 [facility] mg tablet 1-15 tablet by ity o f 00:00: mouth 2 [place] 00 (two) Medical times Branch daily. amLODIPine Yes [id number] 10mg Take 1 U nivers 10 mg 1-15 tablet by ity of tablet 00:00: mouth [place] 00 daily. Medical Branch losartan 50 Yes [id number] 50mg Take 1 [facility] mg tablet 1-15 tablet by ity o f 00:00: mouth [place] 00 daily. Medical Branch FLUoxetine Yes [id number] 40mg Take 1 [facility] nivers 40 mg 1-15 capsule by ity of capsule 00:00: mouth [place] 00 daily. Medical Branch metoprolol Yes [id number] 25mg Take 1 U nivers succinate 1-15 tablet by ity o f XL 25 mg 24 00:00: mouth [place] hr tablet 00 daily. Medical Branch potassium Yes [id number] 10meq Take 1 U nivers chloride 10 1-15 tablet by ity of mEq CR 00:00: mouth [place] tablet 00 every Medical Monday, Branch Monday and Monday. busPIRone 5 Yes [id number] 5mg Take 1 [facility] mg tablet 1-15 tablet by ity o f 00:00: mouth 2 [place] 00 (two) Medical times Branch daily. amLODIPine Yes [id number] 10mg Take 1 U nivers 10 mg 1-15 tablet by ity of tablet 00:00: mouth [place] 00 daily. Medical Branch losartan 50 Yes [id number] 50mg Take 1 [facility] mg tablet 1-15 tablet by ity o f 00:00: mouth [place] 00 daily. Medical Branch FLUoxetine Yes [id number] 40mg Take 1 [facility] nivers 40 mg 1-15 capsule by ity of capsule 00:00: mouth [place] 00 daily. Medical Branch metoprolol Yes [id number] 25mg Take 1 U nivers succinate 1-15 tablet by ity o f XL 25 mg 24 00:00: mouth [place] hr tablet 00 daily. Medical Branch potassium Yes [id number] 10meq Take 1 U nivers chloride 10 1-15 tablet by ity of mEq CR 00:00: mouth [place] tablet 00 every Medical Monday, Branch Monday and Monday. busPIRone 5 Yes [id number] 5mg Take 1 [facility] mg tablet 1-15 tablet by ity o f 00:00: mouth 2 [place] 00 (two) Medical times Branch daily. amLODIPine Yes [id number] 10mg Take 1 [facility] nivers 10 mg 1-15 tablet by ity of tablet 00:00: mouth [place] 00 daily. Medical Branch losartan 50 Yes [id number] 50mg Take 1 [facility] mg tablet 1-15 tablet by ity o f 00:00: mouth [place] 00 daily. Medical Branch FLUoxetine Yes [id number] 40mg Take 1 [facility] nivers 40 mg 1-15 capsule by ity of capsule 00:00: mouth [place] 00 daily. Medical Branch metoprolol Yes [id number] 25mg Take 1 U nivers succinate 1-15 tablet by ity o f XL 25 mg 24 00:00: mouth [place] hr tablet 00 daily. Medical Branch potassium Yes [id number] 10meq Take 1 U nivers chloride 10 1-15 tablet by ity of mEq CR 00:00: mouth [place] tablet 00 every Medical Monday, Branch Monday and Monday. busPIRone 5 Yes [id number] 5mg Take 1 [facility] mg tablet 1-15 tablet by ity o f 00:00: mouth 2 [place] 00 (two) Medical times Branch daily. amLODIPine Yes [id number] 10mg Take 1 U nivers 10 mg 1-15 tablet by ity of tablet 00:00: mouth [place] 00 daily. Medical Branch losartan 50 Yes [id number] 50mg Take 1 [facility] mg tablet 1-15 tablet by ity o f 00:00: mouth [place] 00 daily. Medical Branch FLUoxetine Yes [id number] 40mg Take 1 [facility] nivers 40 mg 1-15 capsule by ity of capsule 00:00: mouth [place] 00 daily. Medical Branch metoprolol Yes [id number] 25mg Take 1 U nivers succinate 1-15 tablet by ity o f XL 25 mg 24 00:00: mouth [place] hr tablet 00 daily. Medical Branch potassium Yes [id number] 10meq Take 1 U nivers chloride 10 -15 tablet by ity of mEq CR 00:00: mouth [place] tablet 00 every Medical Monday, Branch Monday and Monday. busPIRone 5 2020- No [id number] 5mg Take 1 [facility] mg tablet 11-27- tablet by ity of 00:00: 00:00 mouth 2 [place] 00 :00 (two) Medical times Branch daily. amLODIPine 2020- No [id number] 10mg Take 1 [facility] 10 mg -25 02- tablet by ity of tablet 00:00: 00:00 mouth [place] 00 :00 daily. Medical Branch losartan 50 2020- No [id number] 50mg Take 1 [facility] mg tablet 11-27- tablet by ity of 00:00: 00:00 mouth [place] 00 :00 daily. Medical Branch FLUoxetine 2020- No [id number] 40mg Take 1 [facility] 40 mg 11-27- capsule by ity of capsule 00:00: 00:00 mouth [place] 00 :00 daily. Medical Branch metoprolol 2020- No [id number] 25mg Take 1 [facility] succinate 11-27-28 tablet by ity of XL 25 mg 24 00:00: 00:00 mouth [place] hr tablet 00 :00 daily. Medical Branch potassium 2020- No [id number] 10meq Take 1 [facility] chloride 10 11-27 tablet by it y of mEq CR 00:00: 00:00 mouth [place] tablet 00 :00 every Medical Monday, Branch Monday and Monday. amLODIPine 2019-11- No [id number] 10mg Take 1 [facility] 10 mg -04 12- tablet by ity of tablet 00:00: 05:59 mouth [place] 00 :00 daily for Medical 30 days. Branch amLODIPine 2019-11- No [id number] 10mg Take 1 [facility] 10 mg -04 12- tablet by ity of tablet 00:00: 05:59 mouth [place] 00 :00 daily for Medical 30 days. Branch amLODIPine 2019-11- No [id number] 10mg Take 1 [facility] 10 mg 2-22 -22 tablet by ity of tablet 00:00: 05:59 mouth [place] 00 :00 daily for Medical 30 days. Branch amLODIPine 2019-11- No [id number] 10mg Take 1 [facility] 10 mg 2-22 -15 tablet by ity of tablet 00:00: 00:00 mouth [place] 00 :00 daily for Medical 30 days. Branch FLUoxetine 2019-11 Yes 40mg Take 40 mg U nivers (PROZAC) 20 2-21 by mouth ity of mg capsule 20:53: daily. [address] metoprolol 2019-11 Yes 25mg Take 25 mg U nivers succinate 2-21 by mouth ity of XL 25 mg 24 20:53: daily. [place] hr tablet 14 [facility] lipase-prot 2019-11 Yes Take 2 Univ ers ease-amylas 2-21 TAB-CAP/M2 it y of e (CREON) 20:53: by mouth [place] 36,000-114, 14 before Medica l 000- meals. Branch 180,000 Take 2 unit CpDR capsules by mouth with meals and 1 with each snack. FLUoxetine 2019-11 Yes 40mg Take 40 mg U nivers (PROZAC) 20 2-21 by mouth ity of mg capsule 20:53: daily. [address] metoprolol 2019-11 Yes 25mg Take 25 mg U nivers succinate 2-21 by mouth ity of XL 25 mg 24 20:53: daily. [place] hr tablet 14 [facility] lipase-prot 2019-11 Yes Take 2 Univ ers ease-amylas 2-21 TAB-CAP/M2 it y of e (CREON) 20:53: by mouth [place] 36,000-114, 14 before Medica l 000- meals. Branch 180,000 Take 2 unit CpDR capsules by mouth with meals and 1 with each snack. FLUoxetine 2019-11 Yes 40mg Take 40 mg U nivers (PROZAC) 20 2-21 by mouth ity of mg capsule 20:53: daily. [address] metoprolol 2019-11 Yes 25mg Take 25 mg U nivers succinate 2-21 by mouth ity of XL 25 mg 24 20:53: daily. [place] hr tablet 14 [facility] Branch lipase-prot 2020- Yes Take 2 Univ ers ease-amylas 2-21 TAB-CAP/M2 it y of e (CREON) 20:53: by mouth [place] 36,000-114, 14 before Medica l 000- meals. Branch 180,000 Take 2 unit CpDR capsules by mouth with meals and 1 with each snack. lipase-prot 2019- Yes Take 2 Univ ers ease-amylas 2-21 TAB-CAP/M2 it y of e (CREON) 20:53: by mouth [place] 36,000-114, 14 before Medica l 000- meals. Branch 180,000 Take 2 unit CpDR capsules by mouth with meals and 1 with each snack. lipase-prot 2019- Yes Take 2 Univ ers ease-amylas 2-21 TAB-CAP/M2 it y of e (CREON) 20:53: by mouth [place] 36,000-114, 14 before Medica l 000- meals. Branch 180,000 Take 2 unit CpDR capsules by mouth with meals and 1 with each snack. lipase-prot 2019-11 Yes Take 2 Univ ers ease-amylas 2-21 TAB-CAP/M2 it y of e (CREON) 20:53: by mouth [place] 36,000-114, 14 before Medica l 000- meals. Branch 180,000 Take 2 unit CpDR capsules by mouth with meals and 1 with each snack. lipase-prot 2019-11 Yes Take 2 Univ ers ease-amylas 2-21 TAB-CAP/M2 it y of e (CREON) 20:53: by mouth [place] 36,000-114, 14 before Medica l 000- meals. Branch 180,000 Take 2 unit CpDR capsules by mouth with meals and 1 with each snack. lipase-prot 2019- Yes Take 2 Univ ers ease-amylas 2-21 TAB-CAP/M2 it y of e (CREON) 20:53: by mouth [place] 36,000-114, 14 before Medica l 000- meals. Branch 180,000 Take 2 unit CpDR capsules by mouth with meals and 1 with each snack. lipase-prot 2019- Yes Take 2 Univ ers ease-amylas 2-21 TAB-CAP/M2 it y of e (CREON) 20:53: by mouth [place] 36,000-114, 14 before Medica l 000- meals. Branch 180,000 Take 2 unit CpDR capsules by mouth with meals and 1 with each snack. lipase-prot 2019-11 Yes Take 2 Univ ers ease-amylas 2-21 TAB-CAP/M2 it y of e (CREON) 20:53: by mouth [place] 36,000-114, 14 before Medica l 000- meals. Branch 180,000 Take 2 unit CpDR capsules by mouth with meals and 1 with each snack. KCL 20 2019-11- No 40meq 40 mEq, Univer s mEq/15 mL -02 11- Oral, ity of solution 40 16:00: 18:41 ONCE, 1 [place] mEq 00 :00 dose, [facility] Medical 11/02/20 Branch at 1000, Routine amLODIPine 2019-11 Yes 10mg 10 mg, Unive rs (NORVASC) - Oral, ity of tablet 10 15:00: DAILY, [place] mg 00 First dose Medical (after Branch last modificati on) on [facility] 11/02/20 at 0900, Until Discontinu ed, Routine busPIRone 5 2019-11- No [id number] 5mg Take 1 [facility] mg tablet 01-03 tablet by ity of 00:00: 05:59 mouth 2 [place] 00 :00 (two) Medical times Branch daily for 30 days. busPIRone 5 2019-11- No [id number] 5mg Take 1 [facility] mg tablet 01-03- tablet by ity of 00:00: 05:59 mouth 2 [place] 00 :00 (two) Medical times Branch daily for 30 days. busPIRone 5 2019-11- No [id number] 5mg Take 1 [facility] mg tablet 01-03- tablet by ity of 00:00: 05:59 mouth 2 [place] 00 :00 (two) Medical times Branch daily for 30 days. busPIRone 5 2019-11- No [id number] 5mg Take 1 [facility] mg tablet 01-03- tablet by ity of 00:00: 00:00 mouth 2 [place] 00 :00 (two) Medical times Branch daily for 30 days. ondansetron 2019-11- No [id number] 4mg Take 1 [facility] 4 mg tablet 01-03 tablet by it y of 00:00: 05:59 mouth [place] 00 :00 every 8 Medical (eight) Branch hours as needed for Nausea and Vomiting (N/V) for up to 10 days. ondansetron 2019-11 [id number] 4mg Take 1 [facility] 4 mg tablet 01-03 tablet by it y of 00:00: 05:59 mouth [place] 00 :00 every 8 Medical (eight) Branch hours as needed for Nausea and Vomiting (N/V) for up to 10 days. vancomycin 2019-11 No [id number] 125mg Take 1 [facility] 125 mg 2-02 11- capsule by ity of capsule 00:00: 05:59 mouth 4 [place] 00 :00 (four) Medical times Branch daily for 6 days. vancomycin 2019-11 No [id number] 125mg Take 1 [facility] 125 mg 2-02 11- capsule by ity of capsule 00:00: 05:59 mouth 4 [place] 00 :00 (four) Medical times Branch daily for 6 days. acetaminoph 2019-11- No [id number] 1{tbl} Take 1 U nivers en-codeine 01-03 tablet by ity of 300-30 mg 00:00: 05:59 mouth [place] tablet 00 :00 every 8 Medical (eight) Branch hours as needed for Pain (scale 7-10) for up to 5 days. Indication s: acute pain acetaminoph 2019-11 No [id number] 1{tbl} Take 1 U nivers en-codeine 2-02 11- tablet by ity of 300-30 mg 00:00: 05:59 mouth [place] tablet 00 :00 every 8 Medical (eight) Branch hours as needed for Pain (scale 7-10) for up to 5 days. Indication s: acute pain morpHINE 2019-11 Yes 2mg 2 mg, Slow Uni vers injection 2 2-20 IV Push, ity of mg 20:28: Q4HPRN, [place] 41 Starting Medical [facility] 11/01/20 at 1428, Until Discontinu ed, Routine, Pain (scale 7-10) amLODIPine 2019-11- No 5mg 5 mg, Unive rs (NORVASC) 2-20 12-20 Oral, ity of tablet 5 mg 20:15: 20:53 ONCE, 1 [place] 00 :00 dose, [facility] 11/01/20 Branch at 1415, Routine morpHINE 2019-11- No 2mg 2 mg, Slow Un yogesh injection 2 01-02 IV Push, ity of mg 15:36: 20:29 Q4HPRN, [place] 41 :[address] [facility] 11/01/20 at 0936, Until [place] 11/01/20 at 1429, Routine, Pain (scale 7-10) busPIRone 2019-11 Yes 5mg 5 mg, Univers (BUSPAR) 2-20 Oral, BID, ity o f tablet 5 mg 02:00: First dose [place] 00 on [facility] 10/31/20 Branch at 2000, Until Discontinu ed, Routine ALPRAZolam 2019-11 Yes .5mg 0.5 mg, Univ ers (XANAX) 2-20 Oral, ity of tablet 0.5 00:20: TIDPRN, [place] mg 02 Starting [facility] 10/31/20 at 1820, Until Discontinu ed, Routine, anxiety morpHINE 2019-11- No 2mg 2 mg, Slow Un yogesh injection 2 01-01 IV Push, ity of mg 22:52: 05:51 Q4HPRN, [place] 10 :10 Starting [facility] 10/31/20 at 1652, Until [facility] 10/31/20 at 2351, Routine, Pain (scale 7-10) NaCl 0.9% 2019-11 Yes 1000mL at 50 Unive rs (NS) IV 2-19 mL/hr, IV ity of infusion 14:15: Infusion, [place] 1,000 mL 00 CONTINUOUS Medic al , Starting Branch [facility] 10/31/20 at 0815, Until Discontinu ed, Routine morpHINE 2019-11 2020- No 2mg 2 mg, Slow Un yogesh injection 2 01-01 IV Push, ity of mg 14:15: 21:14 Q4HPRN, [place] 00 :00 Starting [facility] 10/31/20 at 0815, Until [facility] 10/31/20 at 1514, Routine, Pain (scale 7-10) hydralAZINE 2019-11 Yes 10mg 10 mg, Univ ers (APRESOLINE 2-19 Slow IV ity o f ) injection 14:10: Push, [place] 10 mg 47 Q4HPRN, Medical Starting Branch [facility] 10/31/20 at 0810, Until Discontinu ed, Routine, DBP=>100; SBP=>160, Q4h for SBP>160 or DBP>100
Indicatio n: Hypertensi ve Emergency HYDROcodone 2019-11 Yes 1{tbl} 1 tablet, Univers -acetaminop 01-01 Oral, ity of hen (NORCO 14:09: Q6HPRN, [place] 5) 5-325 mg 50 Starting Medi eugenio tablet 1 Sat Branch tablet 10/31/20 at 0809, Until Discontinu ed, Routine, Pain (scale 4-6) morpHINE 2019-11 2020- No 2mg 2 mg, Slow Un yogesh injection 2 12-31 IV Push, ity of mg 21:19: 14:09 Q3HPRN, [place] 57 :18 Starting Medical Fri Branch 10/30/20 at 1519, Until 10/31/20 at 0809, Routine, Pain (scale 7-10) KCL 2019-11 2020- No 40meq 40 mEq, Univers (KLOR-CON 12-31 Oral, ity of M20) tablet 18:15: 20:45 ONCE, 1 [place] 40 mEq 00 :00 dose, Fri Medical 10/30/20 Branch at 1215, Routine magnesium 2019-11 2020- No 2g 2 g, IV Univ ers sulfate in 12-31 Piggyback, it y of water 2 18:15: 20:37 ONCE, 1 [place] gram/50 mL 00 :00 dose, Fri Medi eugenio (4 %) 10/30/20 Branch infusion 2 at 1215, g Routine metoprolol 2019-11 Yes 25mg 25 mg, Unive rs succinate 12-31 Oral, ity of XL (TOPROL 15:00: DAILY, [place] XL) tablet 00 First dose Med ical 25 mg on Fri Branch 10/30/20 at 0900, Until Discontinu ed, Routine losartan 2019-11 Yes 50mg 50 mg, Univers (COZAAR) 12-31 Oral, ity of tablet 50 15:00: DAILY, [place] mg 00 First dose Medical on Fri Branch 10/30/20 at 0900, Until Discontinu ed, Routine FLUoxetine 2019-11 Yes 40mg 40 mg, Unive rs (PROZAC) 12-31 Oral, ity of capsule 40 15:00: DAILY, [place] mg 00 First dose Medical on Mon Branch 10/30/20 at 0900, Until Discontinu ed, Routine amLODIPine 2019-11- No 5mg 5 mg, Unive rs (NORVASC) 12-31 Oral, ity of tablet 5 mg 15:00: 19:00 DAILY, [place] Enrique as 00 :30 First dose Medical on Mon Branch 10/30/20 at 0900, Until Discontinu ed, Routine lipase-prot 2019-11 Yes 2{capsu 2 capsule, Univers ease-amylas 12-30 le} Oral, TID ity of e 23:00: MEALS, [place] (PANCREAZE) 00 First dose Me dical 16,800-56,8 on Ne Branch 00 98,400 10/29/20 unit at 1700, capsule 2 Until capsule Discontinu ed
Facu lty member approving Non-formul jesus medication : AZAEL ROGEL
Radha son for non-formul jesus use: PATIENT CURRENTLY TAKING NONFORMULA RY PRODUCT vancomycin 2019-11 Yes 125mg 125 mg, Uni vers (VANCOCIN) 12-30 Oral, QID, ity of capsule 125 22:00: First dose [place] mg 00 on [facility] 10/29/20 Branch at 1600, Until Discontinu ed, Routine
Reason for Anti-Infec tive: Empiric Therapy for Suspected Infection< br>Empiric Therapy Site: Abdominal& lt;br>Dura tion of therapy: 7 days morpHINE 2019-11- No 2mg 2 mg, Slow Un yogesh injection 2 12-30 IV Push, ity of mg 21:01: 21:00 Q3HPRN, [place] 53 :53 Starting Medical [facility] 10/29/20 at 1501, Until Mon10/30/20 at 1500, Routine, Pain (scale 7-10) KCL 2019-11- No 40meq 40 mEq, Univers (KLOR-CON 12-30 Oral, ity of M20) tablet 17:45: 18:56 ONCE, 1 [place] 40 mEq 00 :00 dose, [facility] 10/29/20 Branch at 1145, Routine magnesium 2019-11- No 2g 2 g, IV Univ ers sulfate in 12-30 Piggyback, it y of water 2 17:45: 21:24 ONCE, 1 [place] gram/50 mL 00 :00 dose, Ne Medi eugenio (4 %) 10/29/20 Branch infusion 2 at 1145, g Routine NaCl 0.9% 2019-11- No 1000mL at 125 Uni vers (NS) IV 12-30 12-19 mL/hr, IV ity of infusion 10:00: 14:08 Infusion, [place] En[place] as 1,000 mL 00 :50 CONTINUOUS Medic al , Starting Branch Ne 10/29/20 at 0400, Until 10/31/20 at 0808, Routine enoxaparin 2019-11 Yes 30mg 30 mg, Unive rs (LOVENOX) 12-29 Subcutaneo ity of injection 23:00: [place], DAILY, [place] 30 mg 00 First dose Medical on Wed Branch 10/28/20 at 1700, Until Discontinu ed, Routine pantoprazol 2019-11 Yes 40mg 40 mg, IV U nivers e 12-29 Piggyback, ity of (PROTONIX) 22:15: Q24H, [place] 40 mg in 00 First dose Medic al NaCl 0.9% on Mon Branch (NS) 100 mL 10/28/20 MINI-BAG at 1615, Until Discontinu ed, 100 mL lactated 2019-11- No 1000mL at 125 Univ ers ringers IV 12-29- mL/hr, ity of infusion 21:30: 08:49 1,000 mL, [place] as 1,000 mL 00 :30 IV Medical Infusion, Branch CONTINUOUS , Starting 10/28/20 at 1530, Until Ne 10/29/20 at 0249, Routine dicyclomine 2019-11- No 20mg 20 mg, Uni vers (BENTYL) 12-29 Intramuscu ity of injection 21:30: 20:34 lar, ONCE, [place] 20 mg 00 :00 1 dose, Medical Wed Branch 10/28/20 at 1530, Routine haloperidol 2019-11- No 5mg 5 mg, Univ ers lactate 12-29 Intravenou ity o f (HALDOL) 21:30: 20:40 s, ONCE, 1 [place] injection 5 00 :00 dose, Mon Med ical mg 10/28/20 Branch at 1530, STAT ketorolac 2020-1 2020- No 30mg 30 mg, Unive rs (TORADOL) 12-29 Slow IV ity of injection 20:30: 19:42 Push, [place] 30 mg 00 :00 ONCE, 1 Medical dose, [facility] Branch 10/28/20 at 1430, Routine
membership counselor approving Restricted medication : TRUONG EVELIN Jewel metoclopram 2019-11- No 10mg 10 mg, Uni vers curtis HCl 12-29 Slow IV ity of (REGLAN) 20:30: 19:42 Push, [place] injection 00 :00 ONCE, 1 Medical 10 mg dose, [facility] Branch 10/28/20 at 1430, PINEDA proCHLORper 2019-11 2020- No 10mg 10 mg, IV Univers azine 12-29 Piggyback, ity of (COMPAZINE) 20:26: 20:26 Q4HPRN, [place] 10 mg in 31 :57 Starting Medical NaCl 0.9% [facility] Branch (NS) 10/28/20 piggyback at 1426, Until 11/01/20 at 1426, 50 mL proMETHazin 2019-11 Yes 25mg 25 mg, IV U nivers e 12-29 Piggyback, ity of (PHENERGAN) 20:26: Q4HPRN, Carlos Enrique as 25 mg in 17 Starting Medical NaCl 0.9% [facility] (NS) 50 mL 10/28/20 piggyback at 1426, Until Discontinu ed, 50 mL morpHINE 2019-11- No 2mg 2 mg, Slow Un yogesh injection 2 12-2917 IV Push, ity of mg 20:20: 20:19 Q3HPRN, [place] 13 :13 Starting Medical [facility] 10/28/20 at 1420, Until Ne 10/29/20 at 1419, Routine, Pain (scale 7-10) HYDROcodone 2019-11 2020- No 1{tbl} 1 tablet, Univers -acetaminop 12-29 Oral, ity of hen (NORCO 20:20: 20:19 Q6HPRN, Carlos Enrique as 5) 5-325 mg 02 :02 Starting Medi eugenio tablet 1 [facility] tablet 10/28/20 at 1420, Until 10/30/20 at 1419, Routine, Pain (scale 4-6) acetaminoph 2019-11 Yes 650mg 650 mg, Un yogesh en 12-29 Oral, ity of (TYLENOL) 20:20: Q6HPRN, [place] tablet 650 00 Starting Medic al mg [facility] 10/28/20 at 1420, Until Discontinu ed, Routine, Pain (scale 1-3) NaCl 0.9% 2019-11 2020- No 1000mL at 500 Uni vers (NS) IV 12-29 mL/hr, ity of infusion 18:00: 20:26 Intravenou [place] 1,000 mL 00 :49 s, Medical CONTINUOUS Branch , Starting Mon10/28/20 at 1200, Until Mon10/28/20 at 1426, PINEDA proMETHazin 2019-11- No 25mg 25 mg, IV Univers e 12-29 Piggyback, ity of (PHENERGAN) 18:00: 16:57 ONCE, 1 [place] 25 mg in 00 :00 dose, Mon Medica l NaCl 0.9% 10/28/20 Branch (NS) 50 mL at 1200, piggyback 50 mL iohexol 2019-11 2020- No 120mL 120 mL, Unive rs (OMNIPAQUE 12-29 Intravenou it y of 350 17:45: 17:38 s, ONCE, 1 [place] BULK-150 00 :00 dose, Wed Medica l mL) 10/28/20 Branch injection at 1145, 120 mL Routine FLUoxetine 2019-11 Yes 20mg Take 20 mg U nivers (PROZAC) 20 11-30 by mouth ity of mg capsule 18:46: daily. [place] 19 Medical Branch metoprolol 2019-11 Yes 25mg Take 25 mg U nivers succinate 11-30 by mouth ity of XL 25 mg 24 18:46: daily. [place] hr tablet 19 Medical Branch lipase-prot 2019-11 Yes Take 2 Univ ers ease-amylas -18 TAB-CAP/M2 it y of e (CREON) 18:46: by mouth [place] 36,000-114, 19 before Medica l 000- meals. Branch 180,000 Take 2 unit CpDR capsules by mouth with meals and 1 with each snack. magnesium 2019-11 2020- No 2g 2 g, IV Univ ers sulfate in 11-3018 Piggyback, it y of water 2 02:30: 02:29 ONCE, 1 [place] gram/50 mL 00 :00 dose, Tue Medi eugenio (4 %) 09/29/20 Branch infusion 2 at 2030, g Routine magnesium 2019-11 Yes 400mg 400 mg, Univ ers oxide 1-18 Oral, BID, ity of (MAG-OX 01:30: First dose [place] 400) tablet 00 on Tue Medica l 400 mg 09/29/20 Branch at 1930, Until Discontinu ed, Routine KCL 2019-11 Yes 20meq 20 mEq, Univers (KLOR-CON 1-18 Oral, ity of M20) tablet 01:30: DAILY, [place] 20 mEq 00 First dose Medical on Tue Branch 09/29/20 at 1930, Until Discontinu ed, Routine proMETHazin 2019-11 Yes [id number] 25mg Take 1 Univers e 25 mg -18 tablet by ity of tablet 00:00: mouth 3 [place] 00 (three) Medical times Branch daily as needed for Nausea and Vomiting (N/V). metoclopram 2019-11 Yes [id number] 10mg Take 1 Univers curtis HCl 10 -18 tablet by ity of mg tablet 00:00: mouth 3 [place] 00 (three) Medical times Branch daily as needed for Nausea and Vomiting (N/V). proMETHazin 2019-11 2020- No [id number] 25mg Take 1 Univers e 25 mg -18 12-21 tablet by ity of tablet 00:00: 00:00 mouth 3 [place] 00 :00 (three) Medical times Branch daily as needed for Nausea and Vomiting (N/V). metoclopram 2019-11 2020- No [id number] 10mg Take 1 [facility] curtis HCl 10 -18 12-21 tablet by ity of mg tablet 00:00: 00:00 mouth 3 [place] 00 :00 (three) Medical times Branch daily as needed for Nausea and Vomiting (N/V). lactobacill 2019-11 2020- No [id number] 1{tbl} Take 1 Univers us -18 12-03 tablet by ity of acidophilus 00:00: 05:59 mouth 2 [place] 25 million 00 :00 (two) Medical cell -100 times Branch mg captab daily for 14 days. acetaminoph 2019-11 2020- No [id number] 2{tbl} Take 2 U nivers en-codeine 1-18 11-26 tablets by it y of 300-30 mg 00:00: 05:59 mouth 2 [place] tablet 00 :00 (two) Medical times Branch daily as needed for Pain (scale 4-6) or Pain (scale 7-10) for up to 7 days. Indication s: acute pain ciprofloxac 2019-11 2020- No [id number] 500mg Take 1 Univers in HCl 500 11-30 tablet by ity of mg tablet 00:00: 05:59 mouth [place] 00 :00 every 12 Medical (twelve) Branch hours for 5 days. metroNIDAZO 2019-11- No [id number] 500mg Take 1 Univers LE 500 mg 11-30 tablet by ity of tablet 00:00: 05:59 mouth [place] 00 :00 every 8 Medical (eight) Branch hours for 5 days. morpHINE 2019-11 2020- No 2mg 2 mg, Slow Un yogesh injection 2 11-29 IV Push, ity of mg 20:51: 20:50 Q4HPRN, [place] 08 :08 Starting Medical [facility] 09/29/20 at 1451, Until Mon09/30/20 at 1450, Routine, Pain (scale 7-10) metoclopram 2019-11 Yes 10mg 10 mg, Univ ers curtis HCl 11-29 Slow IV ity of (REGLAN) 20:00: Push, TID, [place] Enrique as injection 00 First dose Medi eugenio 10 mg on [facility] 09/29/20 at 1400, Until Discontinu ed, Routine alum-mag 2019-11 Yes 30mL 30 mL, Univers hydroxide-s -17 Oral, BID, it y of imeth 19:30: First dose [place] (MAALOX 00 on [facility] PLUS / 09/29/20 Branch MAG-AL at 1330, PLUS) Until 200-200-20 Discontinu mg/5 mL ed, suspension Routine 30 mL lactobacill 2019-11 Yes 1{tbl} 1 tablet, Univers us -17 Oral, BID, ity of acidophilus 19:30: First dose [place] (ACIDOPHILL 00 on [facility] l US) 09/29/20 Branch million at 1330, cell -100 Until mg captab 1 Discontinu tablet ed, Routine HYDROcodone 2019-11 Yes 1{tbl} 1 tablet, Univers -acetaminop 1-17 Oral, ity of hen (NORCO 19:16: TIDPRN, [place] 5) 5-325 mg 37 Starting Medi eugenio tablet 1 [facility] tablet 09/29/20 at 1316, Until Discontinu ed, Routine, Pain (scale 4-6) pantoprazol 2019-11 Yes 40mg 40 mg, Univ ers e 17 Oral, ity of (PROTONIX) 15:00: DAILY, [place] EC tablet 00 First dose Medi eugenio 40 mg on [facility] 09/29/20 at 0900, Until Discontinu ed, Routine metoprolol 2019-11 Yes 25mg 25 mg, Unive rs succinate 17 Oral, ity of XL (TOPROL 15:00: DAILY, [place] XL) tablet 00 First dose Med ical 25 mg on [facility] 09/29/20 at 0900, Until Discontinu ed, Routine FLUoxetine 2019-11 Yes 20mg 20 mg, Unive rs (PROZAC) 17 Oral, ity of capsule 20 15:00: DAILY, [place] mg 00 First dose Medical on [facility] 09/29/20 at 0900, Until Discontinu ed, Routine losartan 2019-11 2020- No 50mg 50 mg, Univer s (COZAAR) 11-29 Oral, ity of tablet 50 15:00: 19:14 DAILY, [place] mg 00 :30 First dose Medical on [facility] 09/29/20 at 0900, Until Discontinu ed, Routine amLODIPine 2019-11 2020- No 5mg 5 mg, Unive rs (NORVASC) 11-29 Oral, ity of tablet 5 mg 15:00: 19:14 DAILY, Carlos Enriqeu as 00 :30 First dose Medical on [facility] 09/29/20 at 0900, Until Discontinu ed, Routine lipase-prot 2019-11 Yes 2{capsu 2 capsule, Univers ease-amylas 17 le} Oral, TID ity of e (CREON) 14:00: MEALS, [place] 12,000-38,0 00 First dose Me dical 00 -60,000 on [facility] unit 09/29/20 capsule 2 at 0800, capsule Until Discontinu ed ondansetron 2019-11 Yes 4mg 4 mg, Slow Univers (ZOFRAN 11-29 IV Push, ity of (PF)) 08:45: Q6HPRN, [place] injection 4 10 Starting Medi eugenio mg [facility] 09/29/20 at 0245, Until Discontinu ed, Routine, Nausea and Vomiting (N/V) metoclopram 2019-11- No 10mg 10 mg, Uni vers curtis HCl 11-28 Slow IV ity of (REGLAN) 23:30: 22:25 Push, [place] injection 00 :00 ONCE, 1 Medical 10 mg dose, [facility] 09/28/20 at 1730, PINEDA morpHINE 2019-11- No 2mg 2 mg, Slow Un yogesh injection 2 11-28 IV Push, ity of mg 23:21: 19:17 Q3HPRN, [place] 45 :54 Starting Medical [facility] 09/28/20 at 1721, Until [facility] 09/29/20 at 1317, Routine, Pain (scale 7-10) proMETHazin 2019-11 Yes 25mg 25 mg, IV U nivers e 11-28 Piggyback, ity of (PHENERGAN) 23:18: Q6HPRN, [place] Enrique as 25 mg in 48 Starting Medical NaCl 0.9% [facility] (NS) 50 mL 09/28/20 piggyback at 1718, Until Discontinu ed, 50 mL enoxaparin 2019-11 Yes 30mg 30 mg, Unive rs (LOVENOX) 11-28 Subcutaneo ity of injection 23:00: [place], DAILY, [place] 30 mg 00 First dose Medical on [facility] 09/28/20 at 1700, Until Discontinu ed, Routine D5W 0.45% 2019-11 Yes IV Univers NaCl 11-28 Infusion, ity of (1/2NS) 1 L 21:45: at 125 [place] + KCL 20 00 mL/hr, Medical mEq CONTINUOUS Branch , Starting Mon09/28/20 at 1545, Until Discontinu ed, Routine metroNIDAZO 2019-11 Yes 500mg 500 mg, IV Univers LE in NaCl 11-28 Infusion, ity of (iso-os) 21:30: Q8H ABX, [place] (FLAGYL 00 First dose Medica l I.V.) RTU on [facility] IV infusion 09/28/20 500 mg at 1530, Until Discontinu ed, 100 mL
R zohra for Anti-Infec tive: Documented Infection< br>Documen carrie Infection Site: Abdominal< br>Dura tion of Therapy: Other (see Comments) ciprofloxac 2019-11 Yes 400mg 400 mg, IV Univers in in 5 % 11-28 Piggyback, ity of dextrose 21:30: Administer Carlos Enrique as (CIPRO) 00 over 60 Medical piggyback Minutes, Branch 400 mg Q12H ABX, First dose on 09/28/20 at 1530, Until Discontinu ed, PINEDA
Re ason for Anti-Infec tive: Documented Infection< br>Documen carrie Infection Site: Abdominal< br>Duratio n of Therapy: Other (see Comments) haloperidol 2019-11- No 1mg 1 mg, Univ ers lactate 11-28 Intravenou ity o f (HALDOL) 21:30: 20:34 s, ONCE, 1 [place] injection 1 00 :00 dose, Mon Med ical mg 09/28/20 Branch at 1530, STAT morpHINE 2019-11- No 4mg 4 mg, Slow Un yogesh injection 4 11-28 IV Push, ity of mg 21:15: 20:34 ONCE, 1 [place] 00 :00 dose, Mon Medical 09/28/20 Branch at 1515, STAT ondansetron 2019-11- No 4mg 4 mg, Slow Univers (ZOFRAN 11-28 IV Push, ity of (PF)) 21:00: 20:01 ONCE, 1 [place] injection 4 00 :00 dose, Mon Med ical mg 09/28/20 Branch at 1500, PINEDA iohexol 2019-11 2020- No 120mL 120 mL, Unive rs (OMNIPAQUE 11-28 Intravenou it y of 350 19:45: 19:38 s, ONCE, 1 [place] BULK-150 00 :00 dose, Mon Medica l mL) 09/28/20 Branch injection at 1345, 120 mL Routine haloperidol 2019-11- No 1mg 1 mg, Slow Univers lactate 11-28 IV Push, ity of (HALDOL) 19:15: 18:32 ONCE, 1 [place] injection 1 00 :00 dose, Mon Med ical mg 09/28/20 Branch at 1315, STAT proMETHazin 2019-11 2020- No 25mg 25 mg, IV Univers e 11-28-16 Piggyback, ity of (PHENERGAN) 18:45: 17:55 ONCE, 1 [place] 25 mg in 00 :00 dose, Mon Medica l NaCl 0.9% 09/28/20 Branch (NS) 50 mL at 1245, piggyback 50 mL NaCl 0.9% 2019-11 2020- No 1000mL at 999 Uni vers (NS) bolus 11-28-16 mL/hr, ity of infusion 18:45: 20:03 1,000 mL, [place] Enrique as 1,000 mL 00 :00 IV Medical Infusion, Branch ONCE, 1 dose, 09/28/20 at 1245, STAT haloperidol 2020-0 2020- No 2.5mg 2.5 mg, U nivers lactate 08-05 Slow IV ity of (HALDOL) 18:30: 17:30 Push, [place] injection 00 :00 ONCE, 1 Medical 2.5 mg dose, Wed Branch 08/05/20 at 1330, Routine diphenhydrA 2019-0 2020- No 25mg 25 mg, Uni vers MINE 08-05 Slow IV ity of (BENADRYL) 16:30: 15:41 Push, [place] injection 00 :00 ONCE, 1 Medical 25 mg dose, Wed Branch 08/05/20 at 1130, STAT haloperidol 2020-0 2020- No 2.5mg 2.5 mg, U nivers lactate 08-05 Slow IV ity of (HALDOL) 16:30: 15:38 Push, [place] injection 00 :00 ONCE, 1 Medical 2.5 mg dose, Wed Branch 08/05/20 at 1130, Routine NaCl 0.9% 2020-0 2020- No 1000mL at 999 Uni vers (NS) bolus 08-05-23 mL/hr, ity of infusion 15:30: 20:00 1,000 mL, [place] Enrique as 1,000 mL 00 :00 IV Medical Infusion, Branch ONCE, 1 dose, [facility] 08/05/20 at 1030, STAT NaCl 0.9% 2020-0 2020- No 1000mL at 999 Uni vers (NS) bolus 08-03 09-21 mL/hr, ity of infusion 17:15: 17:20 1,000 mL, [place] Enrique as 1,000 mL 00 :00 IV Medical Piggyback, [place] ONCE, 1 dose, 08/03/20 at 1215, STAT iohexol 2020-0 2020- No 120mL 120 mL, Unive rs (OMNIPAQUE 08-03 Intravenou it y of 350 15:30: 14:47 s, ONCE, 1 [place] BULK-150 00 :00 dose, Mon Medica l mL) 08/03/20 at [place] injection 1030, 120 mL Routine haloperidol 2020-0 2020- No 2.5mg 2.5 mg, U nivers lactate 08-03 Intravenou ity o f (HALDOL) 15:30: 16:11 s, ONCE, 1 [place] injection 00 :00 dose, Mon Medic al 2.5 mg 08/03/20 at Branch 1030, STAT ondansetron 2019-0 2020- No 4mg 4 mg, Slow Univers (ZOFRAN 08-03 IV Push, ity of (PF)) 15:30: 14:21 ONCE, 1 [place] injection 4 00 :00 dose, Mon Med ical mg 08/03/20 at Branch 1030, PINEDA morpHINE 2020-0 2020- No 4mg 4 mg, Slow Un yogesh injection 4 08-03 IV Push, ity of mg 15:30: 14:21 ONCE, 1 [place] 00 :00 dose, Mon Medical 08/03/20 at Branch 1030, STAT sucralfate 2020-0 Yes [id number] 1g Take 1 U nivers 1 gram 9-21 tablet by ity of tablet 00:00: mouth [place] 00 before Medical meals and Branch at bedtime. dicyclomine 2020-0 Yes [id number] 10mg Take 1 Univers (BENTYL) 10 9-21 capsule by it y of mg capsule 00:00: mouth [place] 00 every 8 Medical (eight) Branch hours as needed for Abdominal pain. ondansetron 2020-0 Yes [id number] 4mg Take 1 Univers 4 mg 9-21 tablet by ity of disintegrat 00:00: mouth [place] ing tablet 00 every 8 Medica l (eight) Branch hours as needed for Nausea and Vomiting (N/V). sucralfate 2020-0 Yes [id number] 1g Take 1 U nivers 1 gram 9-21 tablet by ity of tablet 00:00: mouth [place] 00 before Medical meals and Branch at bedtime. dicyclomine 2020-0 Yes [id number] 10mg Take 1 Univers (BENTYL) 10 9-21 capsule by it y of mg capsule 00:00: mouth [place] 00 every 8 Medical (eight) Branch hours as needed for Abdominal pain. ondansetron 2020-0 Yes [id number] 4mg Take 1 Univers 4 mg 9-21 tablet by ity of disintegrat 00:00: mouth [place] ing tablet 00 every 8 Medica l (eight) Branch hours as needed for Nausea and Vomiting (N/V). sucralfate 2020-0 Yes [id number] 1g Take 1 U nivers 1 gram 9-21 tablet by ity of tablet 00:00: mouth [place] 00 before Medical meals and Branch at bedtime. dicyclomine 2020-0 Yes [id number] 10mg Take 1 Univers (BENTYL) 10 9-21 capsule by it y of mg capsule 00:00: mouth [place] 00 every 8 Medical (eight) Branch hours as needed for Abdominal pain. ondansetron 2020-0 Yes [id number] 4mg Take 1 Univers 4 mg 9-21 tablet by ity of disintegrat 00:00: mouth [place] ing tablet 00 every 8 Medica l (eight) Branch hours as needed for Nausea and Vomiting (N/V). sucralfate 2020-0 Yes [id number] 1g Take 1 U nivers 1 gram 9-21 tablet by ity of tablet 00:00: mouth [place] 00 before Medical meals and Branch at bedtime. dicyclomine 2020-0 Yes [id number] 10mg Take 1 Univers (BENTYL) 10 9-21 capsule by it y of mg capsule 00:00: mouth [place] 00 every 8 Medical (eight) Branch hours as needed for Abdominal pain. ondansetron 2020-0 Yes [id number] 4mg Take 1 Univers 4 mg 9-21 tablet by ity of disintegrat 00:00: mouth [place] ing tablet 00 every 8 Medica l (eight) Branch hours as needed for Nausea and Vomiting (N/V). sucralfate 2020-0 Yes [id number] 1g Take 1 U nivers 1 gram 9-21 tablet by ity of tablet 00:00: mouth [place] 00 before Medical meals and Branch at bedtime. dicyclomine 2020-0 Yes [id number] 10mg Take 1 Univers (BENTYL) 10 9-21 capsule by it y of mg capsule 00:00: mouth [place] 00 every 8 Medical (eight) Branch hours as needed for Abdominal pain. ondansetron 2020-0 Yes [id number] 4mg Take 1 Univers 4 mg 9-21 tablet by ity of disintegrat 00:00: mouth [place] ing tablet 00 every 8 Medica l (eight) Branch hours as needed for Nausea and Vomiting (N/V). sucralfate 2020-0 Yes [id number] 1g Take 1 U nivers 1 gram 9-21 tablet by ity of tablet 00:00: mouth [place] 00 before Medical meals and Branch at bedtime. dicyclomine 2020-0 Yes [id number] 10mg Take 1 Univers (BENTYL) 10 9-21 capsule by it y of mg capsule 00:00: mouth [place] 00 every 8 Medical (eight) Branch hours as needed for Abdominal pain. ondansetron 2020-0 Yes [id number] 4mg Take 1 Univers 4 mg 9-21 tablet by ity of disintegrat 00:00: mouth [place] ing tablet 00 every 8 Medica l (eight) Branch hours as needed for Nausea and Vomiting (N/V). sucralfate 2020-0 2020- No [id number] 1g Take 1 Univers 1 gram 9-21 12-21 tablet by ity of tablet 00:00: 00:00 mouth [place] 00 :00 before Medical meals and Branch at bedtime. dicyclomine 2020-0 2020- No [id number] 10mg Take 1 Univers (BENTYL) 10 9-21 12-21 capsule by i ty of mg capsule 00:00: 00:00 mouth [place] 00 :00 every 8 Medical (eight) Branch hours as needed for Abdominal pain. ondansetron 2020-0 2020- No [id number] 4mg Take 1 Univers 4 mg 9-21 12-21 tablet by ity of disintegrat 00:00: 00:00 mouth [place] ing tablet 00 :00 every 8 Medica l (eight) Branch hours as needed for Nausea and Vomiting (N/V). omeprazole 2020-0 2020- No [id number] 20mg Take 1 Univers 20 mg 9-21 10-22 capsule by ity of capsule 00:00: 04:59 mouth [place] 00 :00 daily for Medical 30 days. Branch omeprazole 2020-0 2020- No [id number] 20mg Take 1 Univers 20 mg 9-21 10-22 capsule by ity of capsule 00:00: 04:59 mouth [place] 00 :00 daily for Medical 30 days. Branch omeprazole 2020-0 2020- No [id number] 20mg Take 1 Univers 20 mg 9-21 10-22 capsule by ity of capsule 00:00: 04:59 mouth [place] 00 :00 daily for Medical 30 days. Branch omeprazole 2019-0 2020- No [id number] 20mg Take 1 Univers 20 mg 9-21 10-22 capsule by ity of capsule 00:00: 04:59 mouth [place] 00 :00 daily for Medical 30 days. [place] FLUoxetine 2019-0 Yes 20mg Take 20 mg U nivers (PROZAC) 20 7-10 by mouth ity of mg capsule 20:40: daily. [address] metoprolol 2019-0 Yes 25mg Take 25 mg U nivers succinate 7-10 by mouth ity of XL 25 mg 24 20:40: daily. [place] hr tablet [address] [place] [address] FLUoxetine 0 Yes 20mg Take 20 mg U nivers (PROZAC) 20 7-10 by mouth ity of mg capsule 20:40: daily. [address] metoprolol 2019-0 Yes 25mg Take 25 mg U nivers succinate 7-10 by mouth ity of XL 25 mg 24 20:40: daily. [place] hr tablet [address] [place] [address] FLUoxetine 0 Yes 20mg Take 20 mg U nivers (PROZAC) 20 7-10 by mouth ity of mg capsule 20:40: daily. [address] metoprolol 2020-0 Yes 25mg Take 25 mg U nivers succinate 7-10 by mouth ity of XL 25 mg 24 20:40: daily. [place] hr tablet [address] [place] [address] FLUoxetine 2019-0 Yes 20mg Take 20 mg U nivers (PROZAC) 20 7-10 by mouth ity of mg capsule 20:40: daily. [address] metoprolol 2020-0 Yes 25mg Take 25 mg U nivers succinate 7-10 by mouth ity of XL 25 mg 24 20:40: daily. [place] hr tablet [address] [place] [address] FLUoxetine 2019-0 Yes 20mg Take 20 mg U nivers (PROZAC) 20 7-10 by mouth ity of mg capsule 20:40: daily. [address] metoprolol 2020-0 Yes 25mg Take 25 mg U nivers succinate 7-10 by mouth ity of XL 25 mg 24 20:40: daily. [place] hr tablet 13 [facility] FLUoxetine 2020-0 Yes 20mg Take 20 mg U nivers (PROZAC) 20 7-10 by mouth ity of mg capsule 20:40: daily. [address] metoprolol 2020-0 Yes 25mg Take 25 mg U nivers succinate 7-10 by mouth ity of XL 25 mg 24 20:40: daily. [place] hr tablet [address] [place] [address] FLUoxetine 2020-0 Yes 20mg Take 20 mg U nivers (PROZAC) 20 7-10 by mouth ity of mg capsule 20:40: daily. [address] metoprolol 2020-0 Yes 25mg Take 25 mg U nivers succinate 7-10 by mouth ity of XL 25 mg 24 20:40: daily. [place] hr tablet [address] [place] [address] FLUoxetine 2020-0 Yes 20mg Take 20 mg U nivers (PROZAC) 20 7-10 by mouth ity of mg capsule 20:40: daily. [address] metoprolol 2020-0 Yes 25mg Take 25 mg U nivers succinate 7-10 by mouth ity of XL 25 mg 24 20:40: daily. [place] hr tablet [address] [place] [address] FLUoxetine 2020-0 Yes 20mg Take 20 mg U nivers (PROZAC) 20 7-10 by mouth ity of mg capsule 20:40: daily. [address] metoprolol 2020-0 Yes 25mg Take 25 mg U nivers succinate 7-10 by mouth ity of XL 25 mg 24 20:40: daily. [place] hr tablet [address] [place] [address] FLUoxetine 2020-0 Yes 20mg Take 20 mg U nivers (PROZAC) 20 7-10 by mouth ity of mg capsule 20:40: daily. [address] metoprolol 2020-0 Yes 25mg Take 25 mg U nivers succinate 7-10 by mouth ity of XL 25 mg 24 20:40: daily. [place] hr tablet [address] [place] [address] FLUoxetine 2020-0 Yes 20mg Take 20 mg U nivers (PROZAC) 20 7-10 by mouth ity of mg capsule 20:40: daily. [address] metoprolol 2020-0 Yes 25mg Take 25 mg U nivers succinate 7-10 by mouth ity of XL 25 mg 24 20:40: daily. [place] hr tablet 13 [facility] FLUoxetine 2020-0 Yes 20mg Take 20 mg U nivers (PROZAC) 20 7-10 by mouth ity of mg capsule 20:40: daily. [address] metoprolol 2020-0 Yes 25mg Take 25 mg U nivers succinate 7-10 by mouth ity of XL 25 mg 24 20:40: daily. [place] hr tablet 13 [facility] FLUoxetine 2020-0 Yes 20mg Take 20 mg U nivers (PROZAC) 20 7-10 by mouth ity of mg capsule 19:59: daily. [address] metoprolol 2020-0 Yes 25mg Take 25 mg U nivers succinate 7-10 by mouth ity of XL 25 mg 24 19:59: daily. [place] hr tablet [address] [place] [address] proMETHazin 2019-0 Yes 25mg 25 mg, IV U nivers e 7 Piggyback, ity of (PHENERGAN) 13:40: Q4HPRN, [place] Enrique as 25 mg in 37 Starting Medical NaCl 0.9% Fri Branch (NS) 50 mL 05/22/20 at (COMPOUNDED 0840, ) Piggyback Until 25 mg Discontinu ed, 50 mL morpHINE 2019-0 2020- No 2mg 2 mg, Slow Un yogesh injection 2 05-22 IV Push, ity of mg 12:51: 12:50 Q4HPRN, [place] 57 :57 Starting Medical Fri Branch 05/22/20 at 0751, Until 05/23/20 at 0750, Routine, Pain (scale 7-10), Hold for SBP<110, DBP<60, RR<12, and/or drowsiness /sedation LORazepam 2019-0 Yes .5mg 0.5 mg, Unive rs (ATIVAN) 05-22 Oral, ity of tablet 0.5 01:19: QHSPRN, [place] mg 21 Starting Medical Ne 05/21/20 Branch at 2019, Until Discontinu ed, Routine, Anxiety lipase-prot 2019-0 Yes 2{capsu 2 capsule, Univers ease-amylas 05-22 le} Oral, TID ity of e (CREON) 01:00: MEALS, [place] 12,000-38,0 00 First dose Me dical 00 -60,000 on Ne Branch unit 05/21/20 at capsule 2 1999, capsule Until Discontinu ed, Routine KCL 20 2019-0 2020- No 40meq 40 mEq, Univer s mEq/15 mL 05-22 Oral, BID, ity of solution 40 01:00: 13:36 First dose [place] mEq 00 :49 on Ne Medical 05/21/20 at Branch 2000, Until Discontinu ed, Routine Amylase-Lip 2020-0 2020- No [id number] 53000Q Take 1 Univers ase-Proteas 05-22 capsule by i ty of e (CREON) 00:00: 04:59 mouth 3 [place] 24,000-76,0 00 :00 (three) Medic al 00 -120,000 times Branch unit daily for capsule 7 days. Amylase-Lip 2020-0 2020- No [id number] 00644Q Take 1 Univers ase-Proteas 05-22 capsule by i ty of e (CREON) 00:00: 04:59 mouth 3 [place] 24,000-76,0 00 :00 (three) Medic al 00 -120,000 times Branch unit daily for capsule 7 days. potassium 2020-0 2020- No 10meq 10 mEq, IV Univers chloride 10 05-21 Piggyback, i ty of mEq in 100 19:30: 00:45 Q1H, 3 [place] mL RTU 00 :00 doses, Medical First dose Branch on Mon05/21/20 at 1430, Last dose on Mon05/21/20 at 1600, 100 mL NaCl 0.9% 2020-0 2020- No IV Univers (NS) 1000 05-21 Infusion, ity of mL + KCL 20 14:15: 15:12 at 125 Carlos Enrique as mEq 00 :13 mL/hr, Medical CONTINUOUS Branch , Starting Mon05/21/20 at 0915, Until Mon05/22/20 at 1012, Routine KCL 20 2020-0 2020- No 40meq 40 mEq, Univer s mEq/15 mL 05-21 Oral, ity of solution 40 14:15: 15:06 ONCE, 1 [place] mEq 00 :00 dose, Ne Medical 05/21/20 at Branch 0915, Routine pantoprazol 2020-0 Yes 40mg 40 mg, Univ ers e 7- Oral, ity of (PROTONIX) 14:00: DAILY, [place] EC tablet 00 First dose Medi eugenio 40 mg on [facility] Branch 05/21/20 at 0900, Until Discontinu ed, Routine metoprolol 2020-0 Yes 25mg 25 mg, Unive rs succinate - Oral, ity of XL (TOPROL 14:00: DAILY, [place] XL) tablet 00 First dose Med ical 25 mg on [facility] 05/21/20 at 0900, Until Discontinu ed, Routine losartan 2020-0 Yes 50mg 50 mg, Univers (COZAAR) - Oral, ity of tablet 50 14:00: DAILY, [place] mg 00 First dose Medical on [facility] Branch 05/21/20 at 0900, Until Discontinu ed, Routine FLUoxetine 2020-0 Yes 20mg 20 mg, Unive rs (PROZAC) - Oral, ity of capsule 20 14:00: DAILY, [place] mg 00 First dose Medical on [facility] 05/21/20 at 0900, Until Discontinu ed, Routine amLODIPine 2020-0 Yes 5mg 5 mg, Univer s (NORVASC) 05-21 Oral, ity of tablet 5 mg 14:00: DAILY, [place] 00 First dose Medical on [facility] 05/21/20 at 0900, Until Discontinu ed, Routine magnesium 2020-0 2020- No 2g 2 g, IV Univ ers sulfate in 05-21 07-09 Piggyback, it y of water 2 14:00: 15:07 ONCE, 1 [place] gram/50 mL 00 :00 dose, [facility] Medi eugenio (4 %) 05/21/20 at Branch infusion 2 0900, g Routine HYDROcodone 2020-0 Yes 1{tbl} 1 tablet, Univers -acetaminop - Oral, Q6H, it y of hen (NORCO) 13:15: First dose [place] 10-325 mg 00 on [facility] Medical tablet 1 05/21/20 at Branch tablet 0815, Until Discontinu ed, Routine proMETHazin 2020-0 Yes 25mg 25 mg, IV U nivers e - Piggyback, ity of (PHENERGAN) 13:02: Q4HPRN, [place] Enrique as 25 mg in 09 Starting Medical NaCl 0.9% [facility] 05/21/20 Bran ch (NS) 50 mL at 0802, piggyback Until Discontinu ed, 50 mL lipase-prot 2019-0 2020- No 1{capsu 1 capsule, Univers ease-amylas 05-21 0710 le} Oral, TID it y of e (CREON) 13:00: 00:50 MEALS, [place] 12,000-38,0 00 :41 First dose Me dical 00 -60,000 on Ne Branch unit 05/21/20 at capsule 1 0800, capsule Until Discontinu ed, Routine hydralAZINE 2019-0 Yes 10mg 10 mg, Univ ers (APRESOLINE 05-21 Intravenou it y of ) injection 10:46: s, Q6HPRN, [place] 10 mg 34 Starting Medical Ne 05/21/20 Branch at 0546, Until Discontinu ed, Routine, Hypertensi on FLUoxetine 2020-0 Yes 20mg Take 20 mg U nivers (PROZAC) 20 7- by mouth ity of mg capsule 10:41: daily. [address] metoprolol 2020-0 Yes 25mg Take 25 mg U nivers succinate 7- by mouth ity of XL 25 mg 24 10:41: daily. [place] hr tablet [address] [place] [address] Branch FLUoxetine 2020-0 Yes 20mg Take 20 mg U nivers (PROZAC) 20 7- by mouth ity of mg capsule 10:41: daily. [address] metoprolol 2020-0 Yes 25mg Take 25 mg U nivers succinate 7- by mouth ity of XL 25 mg 24 10:41: daily. [place] hr tablet [address] [place] [address] FLUoxetine 2020-0 Yes 20mg Take 20 mg U nivers (PROZAC) 20 7-09 by mouth ity of mg capsule 10:41: daily. [address] metoprolol 2020-0 Yes 25mg Take 25 mg U nivers succinate 7- by mouth ity of XL 25 mg 24 10:41: daily. [place] hr tablet 19 [facility] Branch NaCl 0.9% 2020-0 2020- No 1000mL at 125 Uni vers (NS) IV 05-21 mL/hr, IV ity of infusion 09:15: 13:06 Infusion, [place] Enrique as 1,000 mL 00 :56 CONTINUOUS Medic al , Starting Branch [facility] 05/21/20 at 0415, Until Ne 05/21/20 at 0806, Routine proCHLORper 0 Yes 10mg 10 mg, Univ ers azine 05-21 Slow IV ity of (COMPAZINE) 09:10: Push, [place] injection 14 Q6HPRN, Medical 10 mg Starting Branch [facility] 05/21/20 at 0410, Until Discontinu ed, Routine, Nausea and Vomiting (N/V), N/V unresponsi ve to Ondansetro n morpHINE 2020- No 2mg 2 mg, Slow Un yogesh injection 2 05-21 0710 IV Push, ity of mg 09:09: 09:08 Q4HPRN, [place] 25 :25 Starting Medical [facility] 05/21/20 Branch at 0409, Until Mon05/22/20 at 0408, Routine, Pain (scale 7-10), Hold for SBP<110, DBP<60, RR<12, and/or drowsiness /sedation acetaminoph Yes 650mg 650 mg, Un yogesh en 05-21 Oral, ity of (TYLENOL) 09:09: Q6HPRN, [place] tablet 650 12 Starting Medic al mg [facility] 05/21/20 Branch at 0409, Until Discontinu ed, Routine, Pain (scale 1-3) LORazepam 2020- No 1mg 1 mg, Slow U nivers (ATIVAN) 05-21 IV Push, ity of injection 1 06:30: 05:31 ONCE, 1 [place] mg 00 :00 dose, Ne Medical 05/21/20 at Branch 0130, STAT proMETHazin 2020- No 25mg 25 mg, IV Univers e 05-21 Piggyback, ity of (PHENERGAN) 06:30: 05:34 ONCE, 1 [place] 25 mg in 00 :00 dose, Ne Medica l NaCl 0.9% 05/21/20 at [facility] h (NS) 50 mL 0130, 50 piggyback mL potassium 2019-0 2020- No 10meq 10 mEq, IV Univers chloride in 05-21 Piggyback, i ty of water 10 05:30: 06:30 ONCE, 1 [place] mEq/100 mL 00 :00 dose, Ne Medi eugenio 10 mEq 05/21/20 at Branch piggyback 0030 proCHLORper 2019-0 2020- No 10mg 10 mg, IV Univers azine 05-21 Piggyback, ity of (COMPAZINE) 04:15: 04:15 ONCE, 1 [place] 10 mg in 00 :00 dose, Wed Medica l NaCl 0.9% 05/20/20 at Branc h (NS) 2315, 50 piggyback mL NaCl 0.9% 2019-0 2020- No 1000mL at 999 Uni vers (NS) bolus 05-21- mL/hr, ity of infusion 04:15: 06:53 1,000 mL, [place] Enrique as 1,000 mL 00 :00 IV Medical Infusion, Branch ONCE, 1 dose, 05/20/20 at 2315, STAT losartan 50 2020-0 Yes [id number] 50mg Take 1 Univers mg tablet 7-09 tablet by ity o f 00:00: mouth [place] 00 daily. [facility] losartan 50 2020-0 Yes [id number] 50mg Take 1 Univers mg tablet 7-09 tablet by ity o f 00:00: mouth [place] 00 daily. [facility] losartan 50 2020-0 Yes [id number] 50mg Take 1 Univers mg tablet 7-09 tablet by ity o f 00:00: mouth [place] 00 daily. [facility] amLODIPine 2020-0 Yes [id number] 5mg Take 1 Univers 5 mg tablet 7-09 tablet by ity of 00:00: mouth [place] 00 daily. [facility] losartan 50 2020-0 Yes [id number] 50mg Take 1 Univers mg tablet 7-09 tablet by ity o f 00:00: mouth [place] 00 daily. [facility] amLODIPine 2020-0 Yes [id number] 5mg Take 1 Univers 5 mg tablet 7-09 tablet by ity of 00:00: mouth [place] 00 daily. [facility] losartan 50 2020-0 Yes [id number] 50mg Take 1 Univers mg tablet 7-09 tablet by ity o f 00:00: mouth [place] 00 daily. [facility] amLODIPine 2020-0 Yes [id number] 5mg Take 1 Univers 5 mg tablet 7-09 tablet by ity of 00:00: mouth [place] 00 daily. [facility] losartan 50 2020-0 Yes [id number] 50mg Take 1 Univers mg tablet 7-09 tablet by ity o f 00:00: mouth [place] 00 daily. Medical Branch amLODIPine 2020-0 Yes [id number] 5mg Take 1 Univers 5 mg tablet 7-09 tablet by ity of 00:00: mouth [place] 00 daily. Medical Branch losartan 50 2020-0 Yes [id number] 50mg Take 1 Univers mg tablet 7-09 tablet by ity o f 00:00: mouth [place] 00 daily. Medical Branch amLODIPine 2020-0 Yes [id number] 5mg Take 1 Univers 5 mg tablet 7-09 tablet by ity of 00:00: mouth [place] 00 daily. Medical Branch losartan 50 2020-0 Yes [id number] 50mg Take 1 Univers mg tablet 7-09 tablet by ity o f 00:00: mouth [place] 00 daily. Medical Branch amLODIPine 2020-0 Yes [id number] 5mg Take 1 Univers 5 mg tablet 7-09 tablet by ity of 00:00: mouth [place] 00 daily. Medical Branch losartan 50 2020-0 Yes [id number] 50mg Take 1 Univers mg tablet 7-09 tablet by ity o f 00:00: mouth [place] 00 daily. Medical Branch amLODIPine 2020-0 Yes [id number] 5mg Take 1 Univers 5 mg tablet 7-09 tablet by ity of 00:00: mouth [place] 00 daily. Medical Branch losartan 50 2020-0 Yes [id number] 50mg Take 1 Univers mg tablet 7-09 tablet by ity o f 00:00: mouth [place] 00 daily. Medical Branch amLODIPine 2020-0 Yes [id number] 5mg Take 1 Univers 5 mg tablet 7-09 tablet by ity of 00:00: mouth [place] 00 daily. Medical Branch losartan 50 2020-0 Yes [id number] 50mg Take 1 Univers mg tablet 7-09 tablet by ity o f 00:00: mouth [place] 00 daily. Medical Branch amLODIPine 2020-0 Yes [id number] 5mg Take 1 Univers 5 mg tablet 7-09 tablet by ity of 00:00: mouth [place] 00 daily. Medical Branch losartan 50 2020-0 Yes [id number] 50mg Take 1 Univers mg tablet 7-09 tablet by ity o f 00:00: mouth [place] 00 daily. Medical Branch amLODIPine 2020-0 Yes [id number] 5mg Take 1 Univers 5 mg tablet 7-09 tablet by ity of 00:00: mouth [place] 00 daily. Medical Branch losartan 50 2020-0 Yes [id number] 50mg Take 1 Univers mg tablet 7-09 tablet by ity o f 00:00: mouth [place] 00 daily. Medical Branch amLODIPine 2020-0 Yes [id number] 5mg Take 1 Univers 5 mg tablet 7-09 tablet by ity of 00:00: mouth [place] 00 daily. Medical Branch losartan 50 2020-0 Yes [id number] 50mg Take 1 Univers mg tablet 7-09 tablet by ity o f 00:00: mouth [place] 00 daily. Medical Branch amLODIPine 2020-0 Yes [id number] 5mg Take 1 Univers 5 mg tablet 7-09 tablet by ity of 00:00: mouth [place] 00 daily. Medical Branch losartan 50 2020-0 Yes [id number] 50mg Take 1 Univers mg tablet 7-09 tablet by ity o f 00:00: mouth [place] 00 daily. Medical Branch amLODIPine 2020-0 Yes [id number] 5mg Take 1 Univers 5 mg tablet 7-09 tablet by ity of 00:00: mouth [place] 00 daily. Medical Branch losartan 50 2020-0 Yes [id number] 50mg Take 1 Univers mg tablet 7-09 tablet by ity o f 00:00: mouth [place] 00 daily. Medical Branch amLODIPine 2020-0 Yes [id number] 5mg Take 1 Univers 5 mg tablet 7-09 tablet by ity of 00:00: mouth [place] 00 daily. Medical Branch losartan 50 2020-0 Yes [id number] 50mg Take 1 Univers mg tablet 7-09 tablet by ity o f 00:00: mouth [place] 00 daily. Medical Branch amLODIPine 2020-0 Yes [id number] 5mg Take 1 Univers 5 mg tablet 7-09 tablet by ity of 00:00: mouth [place] 00 daily. Medical Branch losartan 50 2020-0 Yes [id number] 50mg Take 1 Univers mg tablet 7-09 tablet by ity o f 00:00: mouth [place] 00 daily. Medical Branch amLODIPine 2020-0 Yes [id number] 5mg Take 1 Univers 5 mg tablet 7-09 tablet by ity of 00:00: mouth [place] 00 daily. Medical Branch losartan 50 2020-0 Yes [id number] 50mg Take 1 Univers mg tablet 7-09 tablet by ity o f 00:00: mouth [place] 00 daily. Medical Branch amLODIPine 2020-0 Yes [id number] 5mg Take 1 Univers 5 mg tablet 7-09 tablet by ity of 00:00: mouth [place] 00 daily. Medical Branch losartan 50 2020-0 Yes [id number] 50mg Take 1 Univers mg tablet 7-09 tablet by ity o f 00:00: mouth [place] 00 daily. Medical Branch losartan 50 2019-0 2020- No [id number] 50mg Take 1 Univers mg tablet 05-21 01-15 tablet by ity of 00:00: 00:00 mouth [place] 00 :00 daily. Medical Branch amLODIPine 2019-0 2020- No [id number] 5mg Take 1 Univers 5 mg tablet 05-21 12-21 tablet by it y of 00:00: 00:00 mouth [place] 00 :00 daily. Medical Branch FLUoxetine 2019-0 Yes 20mg Take 20 mg U nivers (PROZAC) 20 7-08 by mouth ity of mg capsule 20:11: daily. [place] [address] Medical Branch metoprolol 2020-0 Yes 25mg Take 25 mg U nivers succinate 7-08 by mouth ity of XL 25 mg 24 20:11: daily. [facility] s [facility] 39 Medical Branch proMETHazin 2019-0 Yes [id number] 25mg Take 1 Univers e 25 mg 7-08 tablet by ity of tablet 00:00: mouth [place] 00 every 6 Medical (six) Branch hours as needed for Nausea and Vomiting (N/V). proMETHazin 2020-0 Yes [id number] 25mg Take 1 Univers e 25 mg 7-08 tablet by ity of tablet 00:00: mouth [place] 00 every 6 Medical (six) Branch hours as needed for Nausea and Vomiting (N/V). proMETHazin 2020-0 Yes [id number] 25mg Take 1 Univers e 25 mg 7-08 tablet by ity of tablet 00:00: mouth [place] 00 every 6 Medical (six) Branch hours as needed for Nausea and Vomiting (N/V). proMETHazin 2020-0 Yes [id number] 25mg Take 1 Univers e 25 mg 7-08 tablet by ity of tablet 00:00: mouth [place] 00 every 6 Medical (six) Branch hours as needed for Nausea and Vomiting (N/V). proMETHazin 2020-0 Yes [id number] 25mg Take 1 Univers e 25 mg 7-08 tablet by ity of tablet 00:00: mouth [place] 00 every 6 Medical (six) Branch hours as needed for Nausea and Vomiting (N/V). HYDROcodone 2020-0 Yes [id number] 1{tbl} Take 1 Un yogesh -acetaminop 7-08 tablet by ity of hen 10-325 00:00: mouth [place] mg tablet 00 every 6 Medical (six) Branch hours as needed for Pain (scale 7-10). Indication s: acute pain proMETHazin 2020-0 Yes [id number] 25mg Take 1 Univers e 25 mg 7-08 tablet by ity of tablet 00:00: mouth [place] 00 every 6 Medical (six) Branch hours as needed for Nausea and Vomiting (N/V). HYDROcodone 2020-0 Yes [id number] 1{tbl} Take 1 Un yogesh -acetaminop 7-08 tablet by ity of hen 10-325 00:00: mouth [place] mg tablet 00 every 6 Medical (six) Branch hours as needed for Pain (scale 7-10). Indication s: acute pain proMETHazin 2020-0 Yes [id number] 25mg Take 1 Univers e 25 mg 7-08 tablet by ity of tablet 00:00: mouth [place] 00 every 6 Medical (six) Branch hours as needed for Nausea and Vomiting (N/V). HYDROcodone 2020-0 Yes [id number] 1{tbl} Take 1 Un yogesh -acetaminop 7-08 tablet by ity of hen 10-325 00:00: mouth [place] mg tablet 00 every 6 Medical (six) Branch hours as needed for Pain (scale 7-10). Indication s: acute pain proMETHazin 2020-0 Yes [id number] 25mg Take 1 Univers e 25 mg 7-08 tablet by ity of tablet 00:00: mouth [place] 00 every 6 Medical (six) Branch hours as needed for Nausea and Vomiting (N/V). HYDROcodone 2020-0 Yes [id number] 1{tbl} Take 1 Un yogesh -acetaminop 7-08 tablet by ity of hen 10-325 00:00: mouth [place] mg tablet 00 every 6 Medical (six) Branch hours as needed for Pain (scale 7-10). Indication s: acute pain proMETHazin 2020-0 Yes [id number] 25mg Take 1 Univers e 25 mg 7-08 tablet by ity of tablet 00:00: mouth [place] 00 every 6 Medical (six) Branch hours as needed for Nausea and Vomiting (N/V). HYDROcodone 2020-0 Yes [id number] 1{tbl} Take 1 Un yogesh -acetaminop 7-08 tablet by ity of hen 10-325 00:00: mouth [place] mg tablet 00 every 6 Medical (six) Branch hours as needed for Pain (scale 7-10). Indication s: acute pain proMETHazin 2020-0 Yes [id number] 25mg Take 1 Univers e 25 mg 7-08 tablet by ity of tablet 00:00: mouth [place] 00 every 6 Medical (six) Branch hours as needed for Nausea and Vomiting (N/V). HYDROcodone 2020-0 Yes [id number] 1{tbl} Take 1 Un yogesh -acetaminop 7-08 tablet by ity of hen 10-325 00:00: mouth [place] mg tablet 00 every 6 Medical (six) Branch hours as needed for Pain (scale 7-10). Indication s: acute pain proMETHazin 2020-0 Yes [id number] 25mg Take 1 Univers e 25 mg 7-08 tablet by ity of tablet 00:00: mouth [place] 00 every 6 Medical (six) Branch hours as needed for Nausea and Vomiting (N/V). HYDROcodone 2020-0 Yes [id number] 1{tbl} Take 1 Un yogesh -acetaminop 7-08 tablet by ity of hen 10-325 00:00: mouth [place] mg tablet 00 every 6 Medical (six) Branch hours as needed for Pain (scale 7-10). Indication s: acute pain proMETHazin 2020-0 Yes [id number] 25mg Take 1 Univers e 25 mg 7-08 tablet by ity of tablet 00:00: mouth [place] 00 every 6 Medical (six) Branch hours as needed for Nausea and Vomiting (N/V). HYDROcodone 2020-0 Yes [id number] 1{tbl} Take 1 Un yogesh -acetaminop 7-08 tablet by ity of hen 10-325 00:00: mouth [place] mg tablet 00 every 6 Medical (six) Branch hours as needed for Pain (scale 7-10). Indication s: acute pain proMETHazin 2020-0 Yes [id number] 25mg Take 1 Univers e 25 mg 7-08 tablet by ity of tablet 00:00: mouth [place] 00 every 6 Medical (six) Branch hours as needed for Nausea and Vomiting (N/V). HYDROcodone 2020-0 Yes [id number] 1{tbl} Take 1 Un yogesh -acetaminop 7-08 tablet by ity of hen 10-325 00:00: mouth [place] mg tablet 00 every 6 Medical (six) Branch hours as needed for Pain (scale 7-10). Indication s: acute pain proMETHazin 2020-0 Yes [id number] 25mg Take 1 Univers e 25 mg 7-08 tablet by ity of tablet 00:00: mouth [place] 00 every 6 Medical (six) Branch hours as needed for Nausea and Vomiting (N/V). HYDROcodone 2020-0 Yes [id number] 1{tbl} Take 1 Un yogesh -acetaminop 7-08 tablet by ity of hen 10-325 00:00: mouth [place] mg tablet 00 every 6 Medical (six) Branch hours as needed for Pain (scale 7-10). Indication s: acute pain proMETHazin 2020-0 Yes [id number] 25mg Take 1 Univers e 25 mg 7-08 tablet by ity of tablet 00:00: mouth [place] 00 every 6 Medical (six) Branch hours as needed for Nausea and Vomiting (N/V). HYDROcodone 2020-0 Yes [id number] 1{tbl} Take 1 Un yogesh -acetaminop 7-08 tablet by ity of hen 10-325 00:00: mouth [place] mg tablet 00 every 6 Medical (six) Branch hours as needed for Pain (scale 7-10). Indication s: acute pain proMETHazin 2020-0 Yes [id number] 25mg Take 1 Univers e 25 mg 7-08 tablet by ity of tablet 00:00: mouth [place] 00 every 6 Medical (six) Branch hours as needed for Nausea and Vomiting (N/V). HYDROcodone 2020-0 Yes [id number] 1{tbl} Take 1 Un yogesh -acetaminop 7-08 tablet by ity of hen 10-325 00:00: mouth [place] mg tablet 00 every 6 Medical (six) Branch hours as needed for Pain (scale 7-10). Indication s: acute pain proMETHazin 2020-0 Yes [id number] 25mg Take 1 Univers e 25 mg 7-08 tablet by ity of tablet 00:00: mouth [place] 00 every 6 Medical (six) Branch hours as needed for Nausea and Vomiting (N/V). HYDROcodone 2020-0 Yes [id number] 1{tbl} Take 1 Un yogesh -acetaminop 7-08 tablet by ity of hen 10-325 00:00: mouth [place] mg tablet 00 every 6 Medical (six) Branch hours as needed for Pain (scale 7-10). Indication s: acute pain proMETHazin 2020-0 Yes [id number] 25mg Take 1 Univers e 25 mg 7-08 tablet by ity of tablet 00:00: mouth [place] 00 every 6 Medical (six) Branch hours as needed for Nausea and Vomiting (N/V). HYDROcodone 2020-0 Yes [id number] 1{tbl} Take 1 Un yogesh -acetaminop 7-08 tablet by ity of hen 10-325 00:00: mouth [place] mg tablet 00 every 6 Medical (six) Branch hours as needed for Pain (scale 7-10). Indication s: acute pain proMETHazin 2020-0 Yes [id number] 25mg Take 1 Univers e 25 mg 7-08 tablet by ity of tablet 00:00: mouth [place] 00 every 6 Medical (six) Branch hours as needed for Nausea and Vomiting (N/V). HYDROcodone 2020-0 Yes [id number] 1{tbl} Take 1 Un yogesh -acetaminop 7-08 tablet by ity of hen 10-325 00:00: mouth [place] mg tablet 00 every 6 Medical (six) Branch hours as needed for Pain (scale 7-10). Indication s: acute pain proMETHazin 2020-0 Yes [id number] 25mg Take 1 Univers e 25 mg 7-08 tablet by ity of tablet 00:00: mouth [place] 00 every 6 Medical (six) Branch hours as needed for Nausea and Vomiting (N/V). HYDROcodone 2020-0 Yes [id number] 1{tbl} Take 1 Un yogesh -acetaminop 7-08 tablet by ity of hen 10-325 00:00: mouth [place] mg tablet 00 every 6 Medical (six) Branch hours as needed for Pain (scale 7-10). Indication s: acute pain proMETHazin 2020-0 Yes [id number] 25mg Take 1 Univers e 25 mg 7-08 tablet by ity of tablet 00:00: mouth [place] 00 every 6 Medical (six) Branch hours as needed for Nausea and Vomiting (N/V). HYDROcodone 2020-0 Yes [id number] 1{tbl} Take 1 Un yogesh -acetaminop 7-08 tablet by ity of hen 10-325 00:00: mouth [place] mg tablet 00 every 6 Medical (six) Branch hours as needed for Pain (scale 7-10). Indication s: acute pain proMETHazin 2020- No [id number] 25mg Take 1 Univers e 25 mg 05-20 tablet by ity of tablet 00:00: 00:00 mouth [place] 00 :00 every 6 Medical (six) Branch hours as needed for Nausea and Vomiting (N/V). HYDROcodone 2019- No [id number] 1{tbl} Take 1 U nivers -acetaminop 05-2021 tablet by it y of hen 10-325 00:00: 00:00 mouth [place] mg tablet 00 :00 every 6 Medical (six) Branch hours as needed for Pain (scale 7-10). Indication s: acute pain doxycycline 2019- No [id number] 100mg Take 1 Univers hyclate 100 05-20-14 capsule by i ty of mg capsule 00:00: 04:59 mouth 2 [place] Enrique as 00 :00 (two) Medical times Branch daily for 5 days. doxycycline 2019- No [id number] 100mg Take 1 Univers hyclate 100 05-20-14 capsule by i ty of mg capsule 00:00: 04:59 mouth 2 [place] Enrique as 00 :00 (two) Medical times Branch daily for 5 days. doxycycline 2019- No [id number] 100mg Take 1 Univers hyclate 100 05-20-14 capsule by i ty of mg capsule 00:00: 04:59 mouth 2 [place] Enrique as 00 :00 (two) Medical times Branch daily for 5 days. doxycycline 2019- No [id number] 100mg Take 1 Univers hyclate 100 05-20-14 capsule by i ty of mg capsule 00:00: 04:59 mouth 2 [place] Enrique as 00 :00 (two) Medical times Branch daily for 5 days. doxycycline 2019-2019- No [id number] 100mg Take 1 Univers hyclate 100 05-20-14 capsule by i ty of mg capsule 00:00: 04:59 mouth 2 [place] Enrique as 00 :00 (two) Medical times Branch daily for 5 days. gadobenate 2019- 2020- No .2mL/kg 12.6 mL Univers dimeglumine 05-19- (0.2 mL/kg i ty of (MULTIHANCE 16:30: 16:30 ?63 kg), [place] -20 mL) 00 :00 Intravenou Medica l injection s, ONCE, 1 Bran ch 12.6 mL dose, [facility] 05/19/20 at 1130, Routine losartan 2020-0 Yes 50mg 50 mg, Univers (COZAAR) 05-19 Oral, ity of tablet 50 14:00: DAILY, [place] mg 00 First dose Medical on [facility] 05/19/20 at 0900, Until Discontinu ed, Routine amLODIPine 2020-0 Yes 5mg 5 mg, Univer s (NORVASC) 05-19 Oral, ity of tablet 5 mg 14:00: DAILY, [place] 00 First dose Medical on [facility] 05/19/20 at 0900, Until Discontinu ed, Routine morpHINE 2019-0 Yes 2mg 2 mg, Slow Uni vers injection 2 05-18 IV Push, ity of mg 17:54: Q4HPRN, [place] 40 Starting Medical [facility] 05/18/20 Branch at 1254, Until Discontinu ed, Routine, Pain (scale 7-10) HYDROcodone 2019-0 2020- No 1{tbl} 1 tablet, Univers -acetaminop 05-18 Oral, ity of hen (NORCO 15:26: 17:50 Q6HPRN, [place] Enrique as 5) 5-325 mg 40 :42 Starting Medi eugenio tablet 1 Mon05/18/20 Branc h tablet at 1026, Until Mon05/18/20 at 1250, Routine, Pain (scale 4-6) sincalide 2019-0 2020- No 1.1ug 1.1 mcg, Un yogesh (KINEVAC) 05-18 IV Push, ity o f injection 15:00: 15:00 ONCE, 1 [place] 1.1 mcg 00 :00 dose, [facility] 05/18/20 at Branch 1000, Routine tc 2020-0 2020- No 9.3mCi 9.3 Univers 99m-mebrofe 05-18 millicurie i ty of hammad 13:45: 13:45 , [place] injection 00 :00 Intravenou Medi eugenio 9.3 s, ONCE, 1 Branch millicurie dose, [facility] 05/18/20 at 0845, Routine haloperidol 2019-0 2020- No 5mg 5 mg, Univ ers lactate 05-17 Intramuscu ity o f (HALDOL) 23:00: 22:37 lar, ONCE, [place] injection 5 00 :00 1 dose, Medic al mg [place] 05/17/20 Branch at 1800, Routine ketorolac 2019-0 2020- No 15mg 15 mg, Unive rs (TORADOL) 05-17 07-06 Slow IV ity of injection 20:24: 17:42 Push, [place] 15 mg 30 :00 Q6HPRN, 4 Medical doses, Branch Starting [place] 05/17/20 at 1524, Until 05/18/20 at 1242, Routine, Pain (scale 4-6), Pain (scale 7-10)
F aculty member approving Restricted medication : SUNITHA CORRAL proCHLORper 2020-0 Yes 5mg 5 mg, IV Un yogesh azine 05-17 Piggyback, ity of (COMPAZINE) 20:23: Q6HPRN, [place] Enrique as 5 mg in 37 Starting Medical NaCl 0.9% [place] 05/17/20 Bran ch (NS) at 1523, piggyback Until Discontinu ed, 50 mL LORazepam 0 Yes .5mg 0.5 mg, Unive rs (ATIVAN) 05-17 Slow IV ity of injection 18:47: Push, [place] 0.5 mg 11 BIDPRN, Medical Starting Branch [place] 05/17/20 at 1347, Until Discontinu ed, Routine, Anxiety ALPRAZolam 2019-0 2020- No .5mg 0.5 mg, Uni vers (XANAX) 05-17 Oral, ity of tablet 0.5 17:39: 18:46 TIDPRN, [place] En[place] as mg 17 :54 Starting Medical [place] 05/17/20 Branch at 1239, Until 05/17/20 at 1346, Routine, anxiety nicotine 2020-0 Yes 1{patch 1 Patch, Un yogesh (NICODERM) 05-16 } Topical, ity o f 14 mg/24 hr 19:30: Administer [place] patch 1 00 over 24 Medical Patch Hours, Branch Q24H, First dose on 05/16/20 at 1430, Until Discontinu ed, Routine busPIRone 2019-0 Yes 10mg 10 mg, Univer s (BUSPAR) 05-16 Oral, BID, ity o f tablet 10 18:30: First dose [place] mg 00 on [facility] Medical 05/16/20 at Branch 1330, Until Discontinu ed, Routine enoxaparin 2020-0 Yes 40mg 40 mg, Unive rs (LOVENOX) 05-16 Subcutaneo ity of injection 14:00: us, DAILY, [place] 40 mg 00 First dose Medical on [facility] Branch 05/16/20 at 0900, Until Discontinu ed, Routine metoprolol 2020-0 Yes 25mg 25 mg, Unive rs succinate 05-16 Oral, ity of XL (TOPROL 14:00: DAILY, [place] XL) tablet 00 First dose Med ical 25 mg on [facility] Branch 05/16/20 at 0900, Until Discontinu ed, Routine FLUoxetine 2020-0 Yes 20mg 20 mg, Unive rs (PROZAC) 05-16 Oral, ity of capsule 20 14:00: DAILY, [place] mg 00 First dose Medical on [facility] Branch 05/16/20 at 0900, Until Discontinu ed, Routine lipase-prot 2020-0 Yes 1{capsu 1 capsule, Univers ease-amylas 05-16 le} Oral, TID ity of e (CREON) 13:00: MEALS, [place] 12,000-38,0 00 First dose Me dical 00 -60,000 on [facility] unit 05/16/20 at capsule 1 0800, capsule Until Discontinu ed, Routine dicyclomine 2020-0 2020- No 20mg 20 mg, Uni vers (BENTYL) 05-16 0704 Intramuscu ity of injection 13:00: 06:32 lar, QID, [place] 20 mg 00 :40 First dose Medical on [facility] Branch 05/16/20 at 0800, Until Discontinu ed, Routine proMETHazin 2020-0 Yes 25mg 25 mg, IV U nivers e 05-16 Piggyback, ity of (PHENERGAN) 12:44: Q4HPRN, [place] En[place] as 25 mg in 34 Starting Medical NaCl 0.9% [facility] 05/16/20 Bran ch (NS) 50 mL at 0744, IV Until piggyback Discontinu ed, Routine, N/V unresponsi ve to Ondansetro n hydralAZINE 2020-0 Yes 5mg 5 mg, Unive rs (APRESOLINE 05-16 Intravenou it y of ) injection 08:08: s, Q4HPRN, [place] 5 mg 09 Starting Medical 05/16/20 Branch at 0308, Until Discontinu ed, Routine, sbp > 160 or dbp > 100 NaCl 0.9% 2020-0 Yes 1000mL at 100 Univ ers (NS) IV 7-04 mL/hr, IV ity of infusion 07:00: Infusion, [place] 1[place]000 [place] 00 CONTINUOUS Medic al , Starting Branch 05/16/20 at 0200, Until Discontinu ed, Routine morpHINE 2020-0 2020- No 2mg 2 mg, Slow Un yogesh injection 2 05-16 07-05 IV Push, ity of mg 06:56: 12:58 Q4HPRN, [place] 47 :18 Starting Medical 05/16/20 Branch at 0156, Until 05/17/20 at 0758, Routine, Pain (scale 7-10) FLUoxetine 2020-0 Yes 20mg Take 20 mg U nivers (PROZAC) 20 05-16 by mouth ity of mg capsule 06:53: daily. [address] Branch metoprolol 2019-0 Yes 25mg Take 25 mg U nivers succinate 05-16 by mouth ity of XL 25 mg 24 06:53: daily. [place] hr tablet 16 [place] Branch traMADol 2019-0 2020- No 50mg 50 mg, Univer s (ULTRAM) 05-16 07-05 Oral, ity of tablet 50 06:30: 12:58 Q8HPRN, [place] mg 02 :18 Starting Medical 05/16/20 Branch at 0130, Until 05/17/20 at 0758, Routine, Pain (scale 4-6) famotidine 2020-0 Yes 20mg 20 mg, Unive rs (PEPCID - Slow IV ity of (PF)) 06:30: Push, [place] injection 00 Q12H, Medical 20 mg First dose Branch on 05/16/20 at 0130, Until Discontinu ed, Routine acetaminoph 2020-0 Yes 650mg 650 mg, Un yogesh en 05-16 Oral, ity of (TYLENOL) 06:29: Q6HPRN, [place] tablet 650 54 Starting Medic al mg 05/16/20 Branch at 0129, Until Discontinu ed, Routine, Pain (scale 1-3) proCHLORper 2019-0 2020- No 10mg 10 mg, IV Univers azine 05-16 Piggyback, ity of (COMPAZINE) 06:15: 05:14 ONCE, 1 [place] 10 mg in 00 :00 dose, Sat Medica l NaCl 0.9% 05/16/20 at Branc h (NS) 0115, 50 piggyback mL KCL 2019-0 2020- No 20meq 20 mEq, IV Unive rs (POTASSIUM 05-16 Piggyback, it y of CHLORIDE) 06:14: 07:34 ONCE, 1 [place] 20 mEq in 00 :00 dose, Sat Medic al NaCl 0.9% 05/16/20 at Branc h (NS) 100 mL 0115, 100 piggyback mL ondansetron 0 Yes 4mg 4 mg, Slow Univers (ZOFRAN 05-16 IV Push, ity of (PF)) 05:53: Q6HPRN, [place] injection 4 28 Starting Medi eugenio mg 05/16/20 Branch at 0053, Until Discontinu ed, Routine, Nausea and Vomiting (N/V) NaCl 0.9% 2019-0 2020- No 1000mL at 999 Uni vers (NS) bolus 05-16 mL/hr, ity of infusion 05:15: 05:14 1,000 mL, [place] Enrique [place] 1,000 mL 00 :00 IV Medical Infusion, Branch ONCE, 1 dose, 05/16/20 at 0015, PINEDA proMETHazin 2019- 2020- No 25mg 25 mg, IV Univers e 05-16 Piggyback, ity of (PHENERGAN) 05:00: 04:23 ONCE, 1 [place] 25 mg in 00 :00 dose, Sat Medica l NaCl 0.9% 05/16/20 at Branc h (NS) 50 mL 0000, 50 piggyback mL metoclopram 2019-0 2020- No 10mg 10 mg, Uni vers curtis HCl 05-16 Slow IV ity of (REGLAN) 03:30: 02:23 Push, [place] injection 00 :00 ONCE, 1 Medical 10 mg dose, Fri Branch 05/15/20 at 2230, PINEDA haloperidol 2019-0 2020- No 2.5mg 2.5 mg, U nivers lactate 05-16-04 Intravenou ity o f (HALDOL) 03:30: 02:23 s, ONCE, 1 [place] injection 00 :00 dose, Fri Medic al 2.5 mg 05/15/20 at Branch 2230, STAT NaCl 0.9% 2019- No 1000mL at 999 Uni vers (NS) bolus 05-16 mL/hr, ity of infusion 02:30: 03:17 1,000 mL, [place] En[place] 1,000 mL 00 :00 IV Medical Infusion, Branch ONCE, 1 dose, 05/15/20 at 2130, PINEDA proMETHazin 2019-0 Yes [id number] 25mg Take 1 Univers e 25 mg 6-11 tablet by ity of tablet 00:00: mouth [place] 00 every 6 Medical (six) Branch hours as needed for Nausea and Vomiting (N/V). acetaminoph 2019-0 Yes [id number] 1{tbl} Take 1 Univers en-codeine 6-11 tablet by ity of 300-30 mg 00:00: mouth [place] tablet 00 every 4 Medical (four) Branch hours as needed for Pain (scale 4-6). proMETHazin 2020-0 Yes [id number] 25mg Take 1 Univers e 25 mg 6-11 tablet by ity of tablet 00:00: mouth [place] 00 every 6 Medical (six) Branch hours as needed for Nausea and Vomiting (N/V). acetaminoph 2020-0 Yes [id number] 1{tbl} Take 1 Univers en-codeine 6-11 tablet by ity of 300-30 mg 00:00: mouth [place] tablet 00 every 4 Medical (four) Branch hours as needed for Pain (scale 4-6). proMETHazin 2020-0 Yes [id number] 25mg Take 1 Univers e 25 mg 6-11 tablet by ity of tablet 00:00: mouth [place] 00 every 6 Medical (six) Branch hours as needed for Nausea and Vomiting (N/V). acetaminoph 2020-0 Yes [id number] 1{tbl} Take 1 Univers en-codeine 6-11 tablet by ity of 300-30 mg 00:00: mouth [place] tablet 00 every 4 Medical (four) Branch hours as needed for Pain (scale 4-6). proMETHazin 2020-0 2020- No [id number] 25mg Take 1 Univers e 25 mg 6- 07-08 tablet by ity of tablet 00:00: 00:00 mouth [place] 00 :00 every 6 Medical (six) Branch hours as needed for Nausea and Vomiting (N/V). acetaminoph 2019- No [id number] 1{tbl} Take 1 Univers en-codeine 6- 07-08 tablet by ity of 300-30 mg 00:00: 00:00 mouth [place] tablet 00 :00 every 4 Medical (four) Branch hours as needed for Pain (scale 4-6). proMETHazin 2019-2019- No [id number] 25mg Take 1 Univers e 25 mg 6-09 19-08 tablet by ity of tablet 00:00: 00:00 mouth [place] 00 :00 every 6 Medical (six) Branch hours as needed for Nausea and Vomiting (N/V). acetaminoph 2019- No [id number] 1{tbl} Take 1 Univers en-codeine 6-09 19-08 tablet by ity of 300-30 mg 00:00: 00:00 mouth [place] tablet 00 :00 every 4 Medical (four) Branch hours as needed for Pain (scale 4-6). FLUoxetine 2020-0 Yes 20mg Take 20 mg U nivers (PROZAC) 20 6-02 by mouth ity of mg capsule 19:36: daily. [address] Branch metoprolol 2020-0 Yes 25mg Take 25 mg U nivers succinate 6-02 by mouth ity of XL 25 mg 24 19:36: daily. [place] hr tablet [address] [place] [address] Branch FLUoxetine 2020-0 Yes 20mg Take 20 mg U nivers (PROZAC) 20 6-02 by mouth ity of mg capsule 19:36: daily. [address] Branch metoprolol 2020-0 Yes 25mg Take 25 mg U nivers succinate 6-02 by mouth ity of XL 25 mg 24 19:36: daily. [place] hr tablet 55 [facility] Branch pantoprazol 2020-0 Yes [id number] 40mg Take 1 Univers e 40 mg EC 6-02 tablet by ity of tablet 00:00: mouth [place] 00 daily. Medical Branch pantoprazol 2020-0 Yes [id number] 40mg Take 1 Univers e 40 mg EC 6-02 tablet by ity of tablet 00:00: mouth [place] 00 daily. Medical Branch pantoprazol 2020-0 Yes [id number] 40mg Take 1 Univers e 40 mg EC 6-02 tablet by ity of tablet 00:00: mouth [place] 00 daily. Medical Branch pantoprazol 2020-0 Yes [id number] 40mg Take 1 Univers e 40 mg EC 6-02 tablet by ity of tablet 00:00: mouth [place] 00 daily. Medical Branch pantoprazol 2020-0 Yes [id number] 40mg Take 1 Univers e 40 mg EC 6-02 tablet by ity of tablet 00:00: mouth [place] 00 daily. Medical Branch pantoprazol 2020-0 Yes [id number] 40mg Take 1 Univers e 40 mg EC 6-02 tablet by ity of tablet 00:00: mouth [place] 00 daily. Medical Branch pantoprazol 2020-0 Yes [id number] 40mg Take 1 Univers e 40 mg EC 6-02 tablet by ity of tablet 00:00: mouth [place] 00 daily. Medical Branch lipase-prot 2020-0 Yes [id number] 1{capsu Take 1 Univers ease-amylas 6-02 le} capsule by it y of e 00:00: mouth 3 [place] 12,000-38,0 00 (three) Medic al 00 -60,000 times Branch unit daily with capsule meals. pantoprazol 2020-0 Yes [id number] 40mg Take 1 Univers e 40 mg EC 6-02 tablet by ity of tablet 00:00: mouth [place] 00 daily. Medical Branch lipase-prot 2020-0 Yes [id number] 1{capsu Take 1 Univers ease-amylas 6-02 le} capsule by it y of e 00:00: mouth 3 [place] 12,000-38,0 00 (three) Medic al 00 -60,000 times Branch unit daily with capsule meals. pantoprazol 2020-0 Yes [id number] 40mg Take 1 Univers e 40 mg EC 6-02 tablet by ity of tablet 00:00: mouth [place] 00 daily. Medical Branch lipase-prot 2020-0 Yes [id number] 1{capsu Take 1 Univers ease-amylas 6-02 le} capsule by it y of e 00:00: mouth 3 [place] 12,000-38,0 00 (three) Medic al 00 -60,000 times Branch unit daily with capsule meals. pantoprazol 2020-0 Yes [id number] 40mg Take 1 Univers e 40 mg EC 6-02 tablet by ity of tablet 00:00: mouth [place] 00 daily. Medical Branch lipase-prot 2020-0 Yes [id number] 1{capsu Take 1 [facility] ease-amylas 6-02 le} capsule by it y of e 00:00: mouth 3 [place] 12,000-38,0 00 (three) Medic al 00 -60,000 times Branch unit daily with capsule meals. pantoprazol 2020-0 Yes [id number] 40mg Take 1 Univers e 40 mg EC 6-02 tablet by ity of tablet 00:00: mouth [place] 00 daily. Medical Branch lipase-prot 2020-0 Yes [id number] 1{capsu Take 1 [facility] ease-amylas 6-02 le} capsule by it y of e 00:00: mouth 3 [place] 12,000-38,0 00 (three) Medic al 00 -60,000 times Branch unit daily with capsule meals. pantoprazol 2020-0 Yes [id number] 40mg Take 1 Univers e 40 mg EC 6-02 tablet by ity of tablet 00:00: mouth [place] 00 daily. Medical Branch lipase-prot 2020-0 Yes [id number] 1{capsu Take 1 [facility] ease-amylas 6-02 le} capsule by it y of e 00:00: mouth 3 [place] 12,000-38,0 00 (three) Medic al 00 -60,000 times Branch unit daily with capsule meals. pantoprazol 2020-0 Yes [id number] 40mg Take 1 Univers e 40 mg EC 6-02 tablet by ity of tablet 00:00: mouth [place] 00 daily. Medical Branch lipase-prot 2020-0 Yes [id number] 1{capsu Take 1 [facility] ease-amylas 6-02 le} capsule by it y of e 00:00: mouth 3 [place] 12,000-38,0 00 (three) Medic al 00 -60,000 times Branch unit daily with capsule meals. pantoprazol 2020-0 Yes [id number] 40mg Take 1 Univers e 40 mg EC 6-02 tablet by ity of tablet 00:00: mouth [place] 00 daily. Medical Branch pantoprazol 2020-0 Yes [id number] 40mg Take 1 Univers e 40 mg EC 6-02 tablet by ity of tablet 00:00: mouth [place] 00 daily. Medical Branch pantoprazol 2020-0 Yes [id number] 40mg Take 1 Univers e 40 mg EC 6-02 tablet by ity of tablet 00:00: mouth [place] 00 daily. Medical Branch pantoprazol 2020-0 Yes [id number] 40mg Take 1 Univers e 40 mg EC 6-02 tablet by ity of tablet 00:00: mouth [place] 00 daily. Medical Branch pantoprazol 2020-0 Yes [id number] 40mg Take 1 Univers e 40 mg EC 6-02 tablet by ity of tablet 00:00: mouth [place] 00 daily. Medical Branch pantoprazol 2020-0 Yes [id number] 40mg Take 1 Univers e 40 mg EC 6-02 tablet by ity of tablet 00:00: mouth [place] 00 daily. Medical Branch pantoprazol 2020-0 Yes [id number] 40mg Take 1 Univers e 40 mg EC 6-02 tablet by ity of tablet 00:00: mouth [place] 00 daily. Medical Branch pantoprazol 2020-0 Yes [id number] 40mg Take 1 Univers e 40 mg EC 6-02 tablet by ity of tablet 00:00: mouth [place] 00 daily. Medical Branch pantoprazol 2020-0 Yes [id number] 40mg Take 1 Univers e 40 mg EC 6-02 tablet by ity of tablet 00:00: mouth [place] 00 daily. Medical Branch pantoprazol 2020-0 Yes [id number] 40mg Take 1 Univers e 40 mg EC 6-02 tablet by ity of tablet 00:00: mouth [place] 00 daily. Medical Branch pantoprazol 2020-0 Yes [id number] 40mg Take 1 Univers e 40 mg EC 6-02 tablet by ity of tablet 00:00: mouth [place] 00 daily. Medical Branch pantoprazol 2020-0 Yes [id number] 40mg Take 1 Univers e 40 mg EC 6-02 tablet by ity of tablet 00:00: mouth [place] 00 daily. Medical Branch pantoprazol 2020-0 Yes [id number] 40mg Take 1 Univers e 40 mg EC 6-02 tablet by ity of tablet 00:00: mouth [place] 00 daily. Medical Branch pantoprazol 2020-0 Yes [id number] 40mg Take 1 Univers e 40 mg EC 6-02 tablet by ity of tablet 00:00: mouth [place] 00 daily. Medical Branch pantoprazol 2020-0 2020- No [id number] 40mg Take 1 Univers e 40 mg EC 6-02 03-02 tablet by ity of tablet 00:00: 00:00 mouth [place] 00 :00 daily. Medical Branch lipase-prot 2020-0 2020- No [id number] 1{capsu Take 1 [facility] ease-amylas 6-02 07-10 le} capsule by i ty of e 00:00: 00:00 mouth 3 [place] 12,000-38,0 00 :00 (three) Medic al 00 -60,000 times Branch unit daily with capsule meals. lipase-prot No [id number] 1{capsu Take 1 Univers ease-amylas 6-02 07-10 le} capsule by i ty of e 00:00: 00:00 mouth 3 [place] 12,000-38,0 00 :00 (three) Medic al 00 -60,000 times Branch unit daily with capsule meals. lipase-prot No [id number] 1{capsu Take 1 [facility] ease-amylas 6-02 07-10 le} capsule by i ty of e 00:00: 00:00 mouth 3 [place] 12,000-38,0 00 :00 (three) Medic al 00 -60,000 times Branch unit daily with capsule meals. proMETHazin No [id number] 25mg Take 1 Univers e 25 mg 6-02 06-11 tablet by ity of tablet 00:00: 00:00 mouth [place] 00 :00 every 4 Medical (four) Branch hours as needed for Nausea and Vomiting (N/V). acetaminoph No [id number] 1{tbl} Take 1 Univers en-codeine 6-02 06-11 tablet by ity of 300-30 mg 00:00: 00:00 mouth [place] tablet 00 :00 every 4 Medical (four) Branch hours as needed for Pain (scale 4-6). proMETHazin No [id number] 25mg Take 1 Univers e 25 mg 6-02 06-11 tablet by ity of tablet 00:00: 00:00 mouth [place] 00 :00 every 4 Medical (four) Branch hours as needed for Nausea and Vomiting (N/V). acetaminoph No [id number] 1{tbl} Take 1 Univers en-codeine 6-02 06-11 tablet by ity of 300-30 mg 00:00: 00:00 mouth [place] tablet 00 :00 every 4 Medical (four) Branch hours as needed for Pain (scale 4-6). lisinopril No [id number] 10mg Take 1 Univers 10 mg 5-27 -27 tablet by ity of tablet 00:00: 04:59 mouth [place] 00 :00 daily for Medical 30 days. [place] lisinopril 2019-0 2020- No [id number] 10mg Take 1 Univers 10 mg 5-27 -27 tablet by ity of tablet 00:00: 04:59 mouth [place] 00 :00 daily for Medical 30 days. [place] lisinopril 2019-2019- No [id number] 10mg Take 1 Univers 10 mg 5-27 -27 tablet by ity of tablet 00:00: 04:59 mouth [place] 00 :00 daily for Medical 30 days. [place] lisinopril 2019-0 2019- No [id number] 10mg Take 1 Univers 10 mg 5-27 -27 tablet by ity of tablet 00:00: 04:59 mouth [place] 00 :00 daily for Medical 30 days. [place] FLUoxetine Yes 20mg Take 20 mg U nivers (PROZAC) 20 5-26 by mouth ity of mg capsule 17:23: daily. [address] busPIRone 0 Yes 10mg Take 10 mg Un yogesh 10 mg 5-26 by mouth 2 ity of tablet 17:23: (two) [place] [address] times Medical daily. Branch metoprolol 0 Yes 25mg Take 25 mg U nivers succinate 5-26 by mouth ity of XL 25 mg 24 17:23: daily. [place] hr tablet 03 [facility] Branch hydralAZINE Yes 10mg 10 mg, Univ ers (APRESOLINE 5-26 Intravenou it y of ) injection 15:20: s, PRN - [place] 10 mg 11 SEE Medical INSTRUCTIO Branch NS, Starting Mon04/07/20 at 1020, Until Discontinu ed, Routine, Hypertensi ve emergency, Hypertensi on, Q4h for SBP>160 or DBP>100 KCL 2019-2019- No 40meq 40 mEq, Univers (KLOR-CON - 05-26 Oral, ity of M20) tablet 14:15: 13:40 ONCE, 1 [place] 40 mEq 00 :00 dose, Tu Medical 04/07/20 at Branch 0915, Routine lisinopril 0 Yes 10mg 10 mg, Unive rs (PRINIVIL,Z 5-26 Oral, ity of ESTRIL) 14:00: DAILY, [place] tablet 10 00 First dose Medi eugenio mg on Branch 04/07/20 at 0900, Until Discontinu ed, Routine proMETHazin 2020-0 Yes [id number] 25mg Take 1 Univers e 25 mg 5-26 tablet by ity of tablet 00:00: mouth [place] 00 every 4 Medical (four) Branch hours as needed for Nausea and Vomiting (N/V). acetaminoph 2020-0 Yes [id number] 1{tbl} Take 1 Univers en-codeine 5-26 tablet by ity of 300-30 mg 00:00: mouth [place] tablet 00 every 4 Medical (four) Branch hours as needed for Pain (scale 4-6). haloperidol 2020-0 2020- No 5mg 5 mg, Univ ers lactate 5-25 05-25 Intravenou ity o f (HALDOL) 19:45: 18:46 s, ONCE, 1 [place] injection 5 00 :00 dose, Mon Med ical mg 04/06/20 at Branch 1445, STAT proCHLORper 2020-0 2020- No 5mg 5 mg, Slow Univers azine 5-25 05-25 IV Push, ity of (COMPAZINE) 14:30: 14:21 ONCE, 1 [place] injection 5 00 :00 dose, Mon Med ical mg 04/06/20 at Branch 0930, Routine enoxaparin 2020-0 Yes 40mg 40 mg, Unive rs (LOVENOX) 5-25 Subcutaneo ity of injection 14:00: us, DAILY, [place] 40 mg 00 First dose Medical on [facility] 04/06/20 at 0900, Until Discontinu ed, Routine sennosides 2020-0 Yes 8.6mg 8.6 mg, Uni vers (SENOKOT) 5-25 Oral, ity of tablet 8.6 14:00: DAILY, [place] mg 00 First dose Medical on [facility] 04/06/20 at 0900, Until Discontinu ed, Routine metoprolol 2020-0 Yes 25mg 25 mg, Unive rs succinate 5-25 Oral, ity of XL (TOPROL 14:00: DAILY, [place] XL) tablet 00 First dose Med ical 25 mg on Mon [place] 5/25/20 at 0900, Until Discontinu ed, Routine FLUoxetine 2020-0 Yes 20mg 20 mg, Unive rs (PROZAC) 5-25 Oral, ity of capsule 20 14:00: DAILY, [place] mg 00 First dose Medical on [facility] 04/06/20 at 0900, Until Discontinu ed, Routine lipase-prot 2020-0 Yes 1{capsu 1 capsule, Univers ease-amylas 5-25 le} Oral, TID ity of e (CREON) 13:00: MEALS, [place] 12,000-38,0 00 First dose Me dical 00 -60,000 on [facility] unit 04/06/20 at capsule 1 0800, capsule Until Discontinu ed, Routine NaCl 0.9% 2020-0 Yes 1000mL at 75 Unive rs (NS) IV 5-25 mL/hr, IV ity of infusion 02:00: Infusion, [place] 1,000 mL 00 CONTINUOUS Medic al , Starting [facility] 04/05/20 at 2100, Until Discontinu ed, Routine busPIRone 2020-0 Yes 10mg 10 mg, Univer s (BUSPAR) 5-25 Oral, BID, ity o f tablet 10 01:00: First dose [place] mg 00 on [facility] 04/05/20 at Branch 1999, Until Discontinu ed, Routine pantoprazol 2020-0 Yes 40mg 40 mg, IV U nivers e 5-25 Piggyback, ity of (PROTONIX) 01:00: Q12H, [place] 40 mg in 00 First dose Medic al NaCl 0.9% on [facility] (NS) 100 mL 04/05/20 at MINI-BAG 1999, Until Discontinu ed, 100 mL haloperidol 2020-0 2020- No 5mg 5 mg, Univ ers lactate 5-25 05-25 Intravenou ity o f (HALDOL) 01:00: 00:01 s, ONCE, 1 [place] injection 5 00 :00 dose, [place] Med ical mg 04/05/20 at Branch 1999, STAT hydralAZINE 2020-0 Yes 10mg 10 mg, Univ ers (APRESOLINE 5-25 Intravenou it y of ) injection 00:53: s, Q4HPRN, [place] [address] [facility] 04/05/20 at 1953, Until Discontinu ed, Routine, Hypertensi on, sbp > 160 or dbp > 100 NaCl 0.9% 2020-0 2020- No 1000mL at 999 Uni vers (NS) IV 5-25 05-25 mL/hr, ity of infusion 00:45: 00:56 Intravenou [place] 1,000 mL 00 :00 s, ONCE, 1 Medic al dose, [facility] 04/05/20 at 1945, Routine morpHINE 2020-0 Yes 2mg 2 mg, Slow Uni vers injection 2 5-25 IV Push, ity of mg 00:35: Q4HPRN, [place] 04 Starting Medical [facility] 04/05/20 at 1935, Until Discontinu ed, Routine, Pain (scale 7-10) traMADol 2019-0 2020- No 50mg 50 mg, Univer s (ULTRAM) 5- 05-27 Oral, ity of tablet 50 00:34: 00:33 Q8HPRN, [place] mg 51 :[address] [facility] 04/05/20 at 1934, Until 04/07/20 at 1933, Routine, Pain (scale 4-6) acetaminoph 2020-0 Yes 650mg 650 mg, Un yogesh en 5-25 Oral, ity of (TYLENOL) 00:34: Q6HPRN, [place] tablet 650 48 Starting Medic al mg [facility] 04/05/20 at 1934, Until Discontinu ed, Routine, Pain (scale 1-3) proMETHazin 2020-0 Yes 25mg 25 mg, IV U nivers e 5-25 Piggyback, ity of (PHENERGAN) 00:23: Q6HPRN, [place] Enrique as 25 mg in 32 Starting Medical NaCl 0.9% [facility] (NS) 50 mL 04/05/20 at piggyback 1923, Until Discontinu ed, 50 mL ondansetron 2020-0 Yes 4mg 4 mg, Slow Univers (ZOFRAN 5-25 IV Push, ity of (PF)) 00:23: Q6HPRN, [place] injection 4 24 Starting Medi eugenio mg [facility] 04/05/20 at 1923, Until Discontinu ed, Routine, Nausea and Vomiting (N/V) metoclopram 2019-0 2020- No 10mg 10 mg, Uni vers curtis HCl 5-25 05-24 Slow IV ity of (REGLAN) 00:15: 23:14 Push, [place] injection 00 :00 ONCE, 1 Medical 10 mg dose, [facility] 04/05/20 at 1915, PINEDA iohexol 2019-0 2020- No 120mL 120 mL, Unive rs (OMNIPAQUE 04-05 Intravenou it y of 350 23:42: 23:42 s, ONCE, 1 [place] BULK-150 00 :00 dose, [place] [facility] mL) 04/05/20 at Branch injection 1845, 120 mL Routine ketorolac 2019-2019- No 30mg 30 mg, Unive rs (TORADOL) 04-05 Slow IV ity of injection 23:15: 22:14 Push, [place] 30 mg 00 :00 ONCE, 1 Medical dose, [facility] 04/05/20 at 1815, Routine
membership counselor approving Restricted medication : EVELIN GUERIN proMETHazin 2020- No 25mg 25 mg, IV Univers e 04-05 Piggyback, ity of (PHENERGAN) 23:15: 22:13 ONCE, 1 [place] 25 mg in 00 :00 dose, [place] [facility] NaCl 0.9% 04/05/20 at Bran ch (NS) 50 mL 1815, 50 piggyback mL traMADol 2020-0 Yes [id number] 100mg Take 1 U nivers 100 mg 24 5-01 tablet by ity o f hr tablet 00:00: mouth once [place] 00 daily as Medical needed for Branch Pain. lipase-prot 2020-0 Yes [id number] 1{capsu Take 1 Univers ease-amylas 5-01 le} capsule by it y of e 00:00: mouth 3 [place] 12,000-38,0 00 (three) Medic al 00 -60,000 times Branch unit daily with capsule meals. traMADol 2020-0 Yes [id number] 100mg Take 1 U nivers 100 mg 24 5-01 tablet by ity o f hr tablet 00:00: mouth once [place] 00 daily as Medical needed for Branch Pain. lipase-prot 2020-0 Yes [id number] 1{capsu Take 1 Univers ease-amylas 5-01 le} capsule by it y of e 00:00: mouth 3 [place] 12,000-38,0 00 (three) Medic al 00 -60,000 times Branch unit daily with capsule meals. lipase-prot 2020-0 Yes [id number] 1{capsu Take 1 Univers ease-amylas 5-01 le} capsule by it y of e 00:00: mouth 3 [place] 12,000-38,0 00 (three) Medic al 00 -60,000 times Branch unit daily with capsule meals. traMADol 2019-0 2020- No [id number] 100mg Take 1 Univers 100 mg 24 5- 05-26 tablet by ity of hr tablet 00:00: 00:00 mouth once [place] 00 :00 daily as Medical needed for Branch Pain. pantoprazol 2020-0 Yes 40mg 40 mg, Univ ers e 4-25 Oral, BID, ity of (PROTONIX) 01:00: First dose [place] EC tablet 00 on Mon Medical 40 mg 4/24/20 at Branch 2000, Until Discontinu ed, Routine FLUoxetine 2020-0 Yes 20mg Take 20 mg U nivers (PROZAC) 20 4-24 by mouth ity of mg capsule 22:29: daily. [place] [address] Medical Branch busPIRone 2020-0 Yes 10mg Take 10 mg Un yogesh 10 mg 4-24 by mouth 2 ity of tablet 22:29: (two) [place] [address] times Medical daily. Branch metoprolol 2020-0 Yes 25mg Take 25 mg U nivers succinate 4-24 by mouth ity of XL 25 mg 24 22:29: daily. [place] hr tablet 53 Medical Branch FLUoxetine 2020-0 Yes 20mg Take 20 mg U nivers (PROZAC) 20 4-24 by mouth ity of mg capsule 22:29: daily. [place] [address] Medical Branch busPIRone 2020-0 Yes 10mg Take 10 mg Un yogesh 10 mg 4-24 by mouth 2 ity of tablet 22:29: (two) [place] [address] times Medical daily. Branch metoprolol 2020-0 Yes 25mg Take 25 mg U nivers succinate 4-24 by mouth ity of XL 25 mg 24 22:29: daily. [place] hr tablet 53 Medical Branch FLUoxetine 2020-0 Yes 20mg Take 20 mg U nivers (PROZAC) 20 4-24 by mouth ity of mg capsule 22:29: daily. [place] [address] Medical Branch busPIRone 2020-0 Yes 10mg Take 10 mg Un yogesh 10 mg 4-24 by mouth 2 ity of tablet 22:29: (two) [place] [address] times [facility] daily. Branch metoprolol 2020-0 Yes 25mg Take 25 mg U nivers succinate 4-24 by mouth ity of XL 25 mg 24 22:29: daily. [place] hr tablet 53 [place] Branch FLUoxetine 2020-0 Yes 20mg Take 20 mg U nivers (PROZAC) 20 4-24 by mouth ity of mg capsule 22:29: daily. [address] Branch busPIRone 2020-0 Yes 10mg Take 10 mg Un yogesh 10 mg 4-24 by mouth 2 ity of tablet 22:29: (two) [address] daily. Branch metoprolol 2020-0 Yes 25mg Take 25 mg U nivers succinate 4-24 by mouth ity of XL 25 mg 24 22:29: daily. [place] hr tablet Medical Branch FLUoxetine 2020-0 Yes 20mg Take 20 mg U nivers (PROZAC) 20 4-24 by mouth ity of mg capsule 22:29: daily. [address] Branch busPIRone 2020-0 Yes 10mg Take 10 mg Un yogesh 10 mg 4-24 by mouth 2 ity of tablet 22:29: (two) [address] daily. Branch metoprolol 2020-0 Yes 25mg Take 25 mg U nivers succinate 4-24 by mouth ity of XL 25 mg 24 22:29: daily. [place] hr tablet Medical Branch FLUoxetine 2019-0 Yes 20mg Take 20 mg U nivers (PROZAC) 20 4-24 by mouth ity of mg capsule 22:29: daily. [address] Branch busPIRone 2019-0 Yes 10mg Take 10 mg Un yogesh 10 mg 4-24 by mouth 2 ity of tablet 22:29: (two) [address] daily. Branch metoprolol 2020-0 Yes 25mg Take 25 mg U nivers succinate 4-24 by mouth ity of XL 25 mg 24 22:29: daily. [place] hr tablet 53 Medical Branch LORazepam 2019-0 2019- No Slow IV Univ ers (ATIVAN) 03-06 Push, PRN, ity of injection 16:30: 16:30 Starting [place] Enrique as 00 :00 [facility] Medical 03/06/20 at Branch 1130, Until Discontinu ed, Routine midazolam 0 2019- No IV Push, Uni vers (VERSED) 03-06 PRN, ity of injection 16:05: 16:20 Starting [place] Enrique as 00 :00 [facility] 03/06/20 at Branch 1105, Until Discontinu ed, Routine FENTanyl PF 2020- No Slow IV Un yogesh (SUBLIMAZE 03-06 Push, PRN, it y of (PF)) 15:54: 16:45 Starting [place] injection 00 :00 [facility] 03/06/20 at Branch 1054, Until Discontinu ed, Routine enoxaparin 2019-0 Yes 40mg 40 mg, Unive rs (LOVENOX) 03-06 Subcutaneo ity of injection 14:00: us, DAILY, [place] 40 mg 00 First dose Medical on Mon [place] 03/06/20 at 0900, Until Discontinu ed, Routine hydralAZINE 0 2020- No 5mg 5 mg, Univ ers (APRESOLINE 03-06 Intravenou i ty of ) injection 02:10: 17:47 s, Q6HPRN, [place] 5 mg 23 :14 Starting [facility] 03/05/20 at 2110, Until Mon03/06/20 at 1247, Routine, Hypertensi on, For SBP greater than 180 or DBP greater than 110 LORazepam 2019- 2020- No .5mg 0.5 mg, Univ ers (ATIVAN) 03-06 Slow IV ity of injection 00:45: 00:14 Push, [place] 0.5 mg 00 :00 ONCE, 1 Medical dose, [facility] 03/05/20 at 1945, Routine sennosides 2019-0 Yes [id number] 8.6mg Take 1 Univers 8.6 mg 4-24 tablet by ity of tablet 00:00: mouth 00 daily. Medical Branch pantoprazol 2019-0 Yes [id number] 40mg Take 1 Univers e 40 mg EC 4-24 tablet by ity of tablet 00:00: mouth 2 [place] 00 (two) Medical times Branch daily. nicotine 14 2019-0 Yes [id number] 1{patch Apply 1 Univers mg/24 hr 4-24 } Patch to ity of patch 00:00: area(s) [place] 00 daily. Medical Branch HYDROcodone 2019-0 Yes [id number] 1{tbl} Take 1 Univers -acetaminop 4-24 tablet by ity of hen 10-325 00:00: mouth [place] mg tablet 00 every 8 Medical (eight) Branch hours as needed for Pain (scale 7-10). hydrOXYzine 2020-0 Yes [id number] 10mg Take 1 Univers 10 mg 4-24 tablet by ity of tablet 00:00: mouth [place] 00 every 6 Medical (six) Branch hours as needed for Anxiety. sennosides 2020-0 Yes [id number] 8.6mg Take 1 Univers 8.6 mg 4-24 tablet by ity of tablet 00:00: mouth [place] 00 daily. Medical Branch pantoprazol 2020-0 Yes [id number] 40mg Take 1 Univers e 40 mg EC 4-24 tablet by ity of tablet 00:00: mouth 2 [place] 00 (two) Medical times Branch daily. nicotine 14 2020-0 Yes [id number] 1{patch Apply 1 Univers mg/24 hr 4-24 } Patch to ity of patch 00:00: area(s) [place] 00 daily. Medical Branch HYDROcodone 2020-0 Yes [id number] 1{tbl} Take 1 Univers -acetaminop 4-24 tablet by ity of hen 10-325 00:00: mouth [place] mg tablet 00 every 8 Medical (eight) Branch hours as needed for Pain (scale 7-10). hydrOXYzine 2020-0 Yes [id number] 10mg Take 1 Univers 10 mg 4-24 tablet by ity of tablet 00:00: mouth [place] 00 every 6 Medical (six) Branch hours as needed for Anxiety. sennosides 2020-0 Yes [id number] 8.6mg Take 1 Univers 8.6 mg 4-24 tablet by ity of tablet 00:00: mouth [place] 00 daily. Medical Branch pantoprazol 2020-0 Yes [id number] 40mg Take 1 Univers e 40 mg EC 4-24 tablet by ity of tablet 00:00: mouth 2 [place] 00 (two) Medical times Branch daily. nicotine 14 2020-0 Yes [id number] 1{patch Apply 1 Univers mg/24 hr 4-24 } Patch to ity of patch 00:00: area(s) [place] 00 daily. Medical Branch HYDROcodone 2020-0 Yes [id number] 1{tbl} Take 1 Univers -acetaminop 4-24 tablet by ity of hen 10-325 00:00: mouth [place] mg tablet 00 every 8 Medical (eight) Branch hours as needed for Pain (scale 7-10). hydrOXYzine 2020-0 Yes [id number] 10mg Take 1 Univers 10 mg 4-24 tablet by ity of tablet 00:00: mouth [place] 00 every 6 Medical (six) Branch hours as needed for Anxiety. sennosides 2020-0 Yes [id number] 8.6mg Take 1 Univers 8.6 mg 4-24 tablet by ity of tablet 00:00: mouth [place] 00 daily. Medical Branch pantoprazol 2020-0 Yes [id number] 40mg Take 1 Univers e 40 mg EC 4-24 tablet by ity of tablet 00:00: mouth 2 [place] 00 (two) Medical times Branch daily. nicotine 14 2020-0 Yes [id number] 1{patch Apply 1 Univers mg/24 hr 4-24 } Patch to ity of patch 00:00: area(s) [place] 00 daily. Medical Branch HYDROcodone 2020-0 Yes [id number] 1{tbl} Take 1 Univers -acetaminop 4-24 tablet by ity of hen 10-325 00:00: mouth [place] mg tablet 00 every 8 Medical (eight) Branch hours as needed for Pain (scale 7-10). hydrOXYzine 2020-0 Yes [id number] 10mg Take 1 Univers 10 mg 4-24 tablet by ity of tablet 00:00: mouth [place] 00 every 6 Medical (six) Branch hours as needed for Anxiety. sennosides 2020-0 Yes [id number] 8.6mg Take 1 Univers 8.6 mg 4-24 tablet by ity of tablet 00:00: mouth [place] 00 daily. Medical Branch pantoprazol 2020-0 Yes [id number] 40mg Take 1 Univers e 40 mg EC 4-24 tablet by ity of tablet 00:00: mouth 2 [place] 00 (two) Medical times Branch daily. nicotine 14 2020-0 Yes [id number] 1{patch Apply 1 Univers mg/24 hr 4-24 } Patch to ity of patch 00:00: area(s) [place] 00 daily. Medical Branch HYDROcodone 2020-0 Yes [id number] 1{tbl} Take 1 Univers -acetaminop 4-24 tablet by ity of hen 10-325 00:00: mouth [place] mg tablet 00 every 8 Medical (eight) Branch hours as needed for Pain (scale 7-10). hydrOXYzine 2020-0 Yes [id number] 10mg Take 1 Univers 10 mg 4-24 tablet by ity of tablet 00:00: mouth [place] 00 every 6 Medical (six) Branch hours as needed for Anxiety. sennosides 2020-0 Yes [id number] 8.6mg Take 1 Univers 8.6 mg 4-24 tablet by ity of tablet 00:00: mouth [place] 00 daily. Medical Branch pantoprazol 2020-0 Yes [id number] 40mg Take 1 Univers e 40 mg EC 4-24 tablet by ity of tablet 00:00: mouth 2 [place] 00 (two) Medical times Branch daily. nicotine 14 2020-0 Yes [id number] 1{patch Apply 1 Univers mg/24 hr 4-24 } Patch to ity of patch 00:00: area(s) [place] 00 daily. Medical Branch HYDROcodone 2020-0 Yes [id number] 1{tbl} Take 1 Univers -acetaminop 4-24 tablet by ity of hen 10-325 00:00: mouth [place] mg tablet 00 every 8 Medical (eight) Branch hours as needed for Pain (scale 7-10). hydrOXYzine 2020-0 Yes [id number] 10mg Take 1 Univers 10 mg 4-24 tablet by ity of tablet 00:00: mouth [place] 00 every 6 Medical (six) Branch hours as needed for Anxiety. sennosides 2020-0 Yes [id number] 8.6mg Take 1 Univers 8.6 mg 4-24 tablet by ity of tablet 00:00: mouth [place] 00 daily. Medical Branch pantoprazol 2020-0 Yes [id number] 40mg Take 1 Univers e 40 mg EC 4-24 tablet by ity of tablet 00:00: mouth 2 [place] 00 (two) Medical times Branch daily. nicotine 14 2020-0 Yes [id number] 1{patch Apply 1 Univers mg/24 hr 4-24 } Patch to ity of patch 00:00: area(s) [place] 00 daily. Medical Branch hydrOXYzine 2020-0 Yes [id number] 10mg Take 1 Univers 10 mg 4-24 tablet by ity of tablet 00:00: mouth [place] 00 every 6 Medical (six) Branch hours as needed for Anxiety. HYDROcodone 2020-0 2020- No [id number] 1{tbl} Take 1 Univers -acetaminop 4-24 05-26 tablet by it y of hen 10-325 00:00: 00:00 mouth [place] mg tablet 00 :00 every 8 Medical (eight) Branch hours as needed for Pain (scale 7-10). nicotine 2020-0 Yes 1{patch 1 Patch, Un yogesh (NICODERM) 03-05 } Topical, ity o f 14 mg/24 hr 03:15: Administer [place] patch 1 00 over 24 Medical Patch Hours, [place] Q24H, First dose on Mon03/04/20 at 2215, Until Discontinu ed, Routine magnesium 2020-0 2020- No 2g 2 g, IV Univ ers sulfate in 03-05 Piggyback, it y of water 2 01:30: 02:13 ONCE, 1 [place] gram/50 mL 00 :00 dose, Mon Medi eugenio (4 %) 03/04/20 at [place] infusion 2 2029, g Routine lactated 2020-0 2020- No 1000mL at 100 Univ ers ringers IV 03-05 mL/hr, ity of infusion 00:45: 17:14 1,000 mL, [place] Enrique as 1,000 mL 00 :54 IV Medical Infusion, Branch CONTINUOUS , Starting Mon03/04/20 at 1945, Until Mon03/06/20 at 1214, Routine KCL 2020-0 2020- No 20meq 20 mEq, Univers (KLOR-CON 03-05 Oral, ity of M20) tablet 00:45: 00:34 ONCE, 1 [place] 20 mEq 00 :00 dose, Mon Medical 03/04/20 at Branch 1945, Routine peg-electro 2020-0 2020- No 4000mL 4,000 mL, Univers lyte soln 03-05 Oral, ity of (GOLYTELY) 00:30: 00:34 ONCE, 1 [place] Enrique as 236-22.74-6 00 :00 dose, Mon Med ical .74 -5.86 03/04/20 at [facility] 1930, solution Routine 4,000 mL magnesium 2020-0 Yes 400mg 400 mg, Univ ers oxide 03-04 Oral, BID, ity of (MAG-OX 23:45: [place] 400[place] tablet 00 on Mon Medica l 400 mg 03/04/20 at Branch 1845, Until Discontinu ed, Routine metoprolol 2020-0 Yes 25mg 25 mg, Unive rs succinate 03-04 Oral, ity of XL (TOPROL 23:30: DAILY, [place] XL) tablet 00 First dose Med ical 25 mg on Mon Branch 03/04/20 at 1830, Until Discontinu ed, Routine FLUoxetine 2020-0 Yes 20mg 20 mg, Unive rs (PROZAC) - Oral, ity of capsule 20 23:30: DAILY, [place] mg 00 First dose Medical on Mon [place] 03/04/20 at 1830, Until Discontinu ed, Routine busPIRone 2020-0 Yes 10mg 10 mg, Univer s (BUSPAR) - Oral, BID, ity o f tablet 10 23:30: First dose [place] mg 00 on Mon [facility] 03/04/20 at Branch 1830, Until Discontinu ed, Routine docusate 2020-0 Yes 100mg 100 mg, [facility] ([facility] - Oral, BID, ity o f capsule 100 23:30: First dose [place] mg 00 on Mon [facility] 03/04/20 at Branch 1830, Until Discontinu ed, Routine sennosides 2020-0 Yes 8.6mg 8.6 mg, Uni vers (SENOKOT) 03-04 Oral, BID, ity of tablet 8.6 23:30: First dose [place] mg 00 on Mon [facility] 03/04/20 at Branch 1830, Until Discontinu ed, Routine LORazepam 2019-0 2020- No .5mg 0.5 mg, [facility] ers (ATIVAN) 03-04 Slow IV ity of injection 23:16: 23:18 Push, [place] 0.5 mg 58 :52 BIDPRN, Medical Starting Branch Mon03/04/20 at 1816, Until Ne 03/05/20 at 1818, Routine, Anxiety lactated 2019-0 2020- No 1000mL at 100 [facility] ers ringers IV 03-04 mL/hr, ity of infusion 15:30: 23:16 1,000 mL, [place] Enrique as 1,000 mL 00 :02 IV Medical Infusion, Branch CONTINUOUS , Starting Mon03/04/20 at 1030, Until Mon03/04/20 at 1816, Routine, PACU ondansetron 2019-0 2020- No 4mg 4 mg, Slow Univers (ZOFRAN 03-04 IV Push, ity of (PF)) 15:15: 15:31 PRN, 1 [place] injection 4 19 :00 dose, Medical mg Starting Branch [facility] 03/04/20 at 1015, Until Discontinu ed, Routine, Nausea and Vomiting (N/V), PACU D5W 0.9% 2019-0 2020- No 1000mL at 150 Univ ers NaCl (NS) 03-0322 mL/hr, ity of IV infusion 23:00: 23:41 1,000 mL, [place] 1,000 mL 00 :28 IV Medical Infusion, Branch CONTINUOUS , Starting Mon03/03/20 at 1800, Until 03/04/20 at 1841, Routine iohexol 2019-0 2020- No 120mL 120 mL, Unive rs (OMNIPAQUE 03-03 Intravenou it y of 350 22:45: 22:45 s, ONCE, 1 [place] BULK-150 00 :00 dose, Tue Medica l mL) 03/03/20 at Branch injection 1745, 120 mL Routine morpHINE 2019-0 Yes 4mg 4 mg, Slow Uni vers injection 4 03-03 IV Push, ity of mg 21:59: Q4HPRN, [place] 08 Starting [facility] 03/03/20 at 1659, Until Discontinu ed, Routine, Pain (scale 7-10) morpHINE 2019-0 2020- No 2mg 2 mg, Slow Un yogesh injection 2 03-03 IV Push, ity of mg 19:30: 21:59 Q4HPRN, [place] 00 :24 Starting [facility] 03/03/20 at 1430, Until [facility] 03/03/20 at 1659, Routine, Pain (scale 7-10) morpHINE 2019-0 2020- No 2mg 2 mg, Slow Un yogesh injection 2 03-03 IV Push, ity of mg 14:47: 19:16 Q6HPRN, [place] 44 :00 Starting [facility] 03/03/20 at 0947, Until [facility] 03/03/20 at 1416, Routine, Pain (scale 7-10) zolpidem 2019-0 Yes 5mg 5 mg, Univers (AMBIEN) 03-03 Oral, ity of tablet 5 mg 04:13: QHSPRN, [place] Enrique as 06 Starting [facility] 03/02/20 at 2313, Until Discontinu ed, Routine, Insomnia pantoprazol 2019-0 2020- No 40mg 40 mg, IV Univers e 03-0324 Piggyback, ity of (PROTONIX) 01:00: 17:48 Q12H, [place] 40 mg in 00 :17 First dose Medic al NaCl 0.9% on Mon Branch (NS) 100 mL 03/02/20 at MINI-BAG 2000, Until Discontinu ed, 100 mL proMETHazin 2020-0 Yes 25mg 25 mg, IV U nivers e - Piggyback, ity of (PHENERGAN) 22:40: Q4HPRN, [place] Enrique as 25 mg in 41 Starting Medical NaCl 0.9% Mon Branch (NS) 50 mL 03/02/20 at IV 1740, piggyback Until Discontinu ed, Routine, Nausea and Vomiting (N/V) D5W 0.45% 2020-0 2020- No IV Univers NaCl -02 03- Infusion, ity of (1/2NS) 1 L 21:30: 21:52 at 150 [place] Enrique as + KCL 20 00 :49 mL/hr, Medical mEq CONTINUOUS Branch , Starting Mon03/02/20 at 1630, Until Tu03/03/20 at 1652, Routine metoclopram 2020-0 2020- No 10mg 10 mg, Uni vers curtis HCl -02 03-20 Slow IV ity of (REGLAN) 18:52: 22:40 Push, [place] injection 00 :51 Q6HPRN, Medical 10 mg Starting Branch 03/02/20 at 1352, Until Mon03/02/20 at 1740, PINEDA, Nausea and Vomiting (N/V) ondansetron 2020-0 Yes 4mg 4 mg, Slow Univers (ZOFRAN 4-20 IV Push, ity of (PF)) 18:51: Q6HPRN, [place] injection 4 45 Starting Medi eugenio mg Mon Branch 03/02/20 at 1351, Until Discontinu ed, PINEDA, Nausea and Vomiting (N/V) D5W 0.45% 2020-0 2020- No IV Univers NaCl -02 03-20 Infusion, ity of (1/2NS) 1 L 18:45: 21:27 at 100 [place] Enrique as + KCL 20 00 :01 mL/hr, Medical mEq CONTINUOUS Branch , Starting Mon03/02/20 at 1345, Until Mon03/02/20 at 1627, Routine LORazepam 2019-0 2020- No .5mg 0.5 mg, Univ ers (ATIVAN) 03-02 Slow IV ity of injection 18:15: 17:46 Push, [place] 0.5 mg 00 :00 ONCE, 1 Medical dose, [facility] 03/02/20 at 1315, STAT NaCl 0.9% 2020- No 1000mL at 999 Uni vers (NS) bolus 03-02 mL/hr, ity of infusion 18:00: 17:47 1,000 mL, [place] Enrique as 1,000 mL 00 :00 IV Medical Infusion, [place] ONCE, 1 dose, [facility] 03/02/20 at 1300, STAT traMADol 2019- No 50mg 50 mg, Univer s (ULTRAM) 03-02 Oral, ity of tablet 50 17:41: 17:40 Q8HPRN, [place] mg 01 :01 Starting Medical [facility] 03/02/20 at 1241, Until 03/04/20 at 1240, Routine, Pain (scale 4-6) acetaminoph Yes 650mg 650 mg, Un yogesh en 03-02 Oral, ity of (TYLENOL) 17:40: Q6HPRN, [place] tablet 650 59 Starting Medic al mg [facility] 03/02/20 at 1240, Until Discontinu ed, Routine, Pain (scale 1-3) proMETHazin 2019- No 12.5mg 12.5 mg, Univers e 03-02 IV ity of (PHENERGAN) 16:30: 15:36 [place], [place] 12.5 mg in 00 :00 ONCE, 1 Medica l NaCl 0.9% dose, [facility] (NS) 50 mL 03/02/20 at piggyback 1130, 50 mL pantoprazol 2019- No 40mg 40 mg, IV Univers e 03-02 Piggyback, ity of (PROTONIX) 15:45: 14:55 ONCE, 1 [place] Enrique as 40 mg in 00 :00 dose, [facility] Medica l NaCl 0.9% 03/02/20 at [facility] ch (NS) 100 mL 1045, 100 MINI-BAG mL metoclopram 2019- No 10mg 10 mg, Uni vers curtis HCl 03-02 Slow IV ity of (REGLAN) 15:45: 14:40 Push, [place] injection 00 :00 ONCE, 1 Medical 10 mg dose, Mon Branch 03/02/20 at 1045, PINEDA NaCl 0.9% 2019- No 1000mL at 999 Uni vers (NS) bolus - 04-20 mL/hr, ity of infusion 15:30: 14:17 1,000 mL, [place] Enrique as 1,000 mL 00 :00 IV Medical Piggyback, Branch ONCE, 1 dose, 03/02/20 at 1030, STAT ondansetron 2019- No 4mg 4 mg, Slow Univers (ZOFRAN -02 03-20 IV Push, ity of (PF)) 15:30: 14:17 ONCE, 1 [place] injection 4 00 :00 dose, Mon Med ical mg 03/02/20 at Branch 1030, PINEDA No known No [facility] Vital Name Observation Time Observation Value Comments Source Systolic blood 2021-04-30 07:00:00 126 mm[Hg] Univer sity [facility] [place] Diastolic blood 2021-04-30 07:00:00 78 [facility]Hg[facility] 2021-04-30 07:00:00 81 /min [facility] Respiratory rate 2021-04-30 07:00:00 20 /[facility] O[facility] saturation in 2021-04-30 07:00:00 96 /min [facility] Arterial blood by [facility] Pulse oximetry [place] Body temperature 2021-04-30 04:54:00 36.72 [facility] Body height 2021-04-30 04:54:00 160 cm [facility] Body weight 2021-04-30 04:54:00 56.7 kg [facility] BMI 2021-04-30 04:54:00 22.14 kg/m2 [facility] Systolic blood 2021-04-20 16:36:00 126 mm[Hg] Univer sity [facility] [place] Diastolic blood 2021-04-20 16:36:00 95 mm[facility]Hg] [facility] 2021-04-20 16:36:00 68 /min [facility] Body temperature 2021-04-20 16:36:00 36.94 [facility] Univ ersity of [place] [facility] Respiratory rate 2021-04-20 16:36:00 18 /min Univ ersity of [place] [facility] Oxygen saturation in 2021-04-20 16:36:00 97 /min University of Arterial blood by [facility] Pulse oximetry Branch Body weight 2021-04-19 09:13:00 65.431 kg Universi ty of [place] [facility] BMI 2021-04-19 09:13:00 25.55 kg/m2 Universi ty of [place] [facility] Body height 2021-04-18 20:39:00 160 cm Universi ty of [place] [facility] Systolic blood 2021-03-10 12:16:00 139 mm[Hg] Univer sity of pressure [place] [facility] Diastolic blood 2021-03-10 12:16:00 94 mm[Hg] Unive rsity of pressure [place] [facility] Heart rate 2021-03-10 12:16:00 70 /min Universi ty of [place] [facility] Body temperature 2021-03-10 12:16:00 36.72 [facility] Univ ersity of [place] [facility] Respiratory rate 2021-03-10 12:16:00 18 /min Univ ersity of [place] [facility] Oxygen saturation in 2021-03-10 12:16:00 95 /min University of Arterial blood by [facility] Pulse oximetry Branch Body height 2021-03-07 19:45:00 160 cm Universi ty of [place] [facility] Body weight 2021-03-07 19:45:00 65.772 kg Universi ty of [place] [facility] BMI 2021-03-07 19:45:00 25.69 kg/m2 Universi ty [facility] [place] [facility] Systolic blood 2021-01-23 13:23:00 141 mm[Hg] Univer sity of pressure [place] [facility] Diastolic blood 2021-01-23 13:23:00 80 mm[Hg] Unive rsity of pressure [place] [facility] Heart rate 2021-01-23 13:23:00 95 /min Universi ty of [place] [facility] Body temperature 2021-01-23 13:23:00 36.28 [facility] Univ ersity of [place] [facility] Respiratory rate 2021-01-23 13:23:00 18 /min Univ ersity of [place] [facility] Oxygen saturation in 2021-01-23 13:23:00 96 /min University of Arterial blood by [facility] eugenio Pulse oximetry Branch Body height 2021-01-23 03:00:00 160 cm Universi ty of [place] [facility] Body weight 2021-01-23 03:00:00 65.908 kg bedscale Universi ty [facility] [place] [facility] BMI 2021-01-23 03:00:00 25.74 kg/m2 Universi ty [facility] [place] [facility] Systolic blood 2020-11-02 17:18:00 144 mm[Hg] Univer sity of pressure [place] [facility] Diastolic blood 2020-11-02 17:18:00 97 mm[Hg] Unive rsity of pressure [place] [facility] Heart rate 2020-11-02 17:18:00 93 /min Universi ty of [place] [facility] Body temperature 2020-11-02 17:18:00 37.11 K[facility] Univ ersity of [place] [facility] Respiratory rate 2020-11-02 17:18:00 20 /min Univ ersity of [place] [facility] Oxygen saturation in 2020-11-02 17:18:00 96 /min University of Arterial blood by [facility] Pulse oximetry Branch Body weight 2020-11-02 09:29:00 65.913 kg Universi ty of [place] [facility] BMI 2020-11-02 09:29:00 25.74 kg/m2 Universi ty [facility] [place] [facility] Body height 2020-10-28 22:57:00 160 cm Universi ty of [place] [facility] Systolic blood 2020-09-30 17:45:00 143 mm[Hg] Univer sity of pressure [place] [facility] Diastolic blood 2020-09-30 17:45:00 85 mm[Hg] Unive rsity of pressure [place] [facility] Heart rate 2020-09-30 17:45:00 70 /min Universi ty of [place] [facility] Body temperature 2020-09-30 17:45:00 36.44 K[facility] Univ ersity of [place] [facility] Respiratory rate 2020-09-30 17:45:00 18 /min Univ ersity of [place] [facility] Oxygen saturation in 2020-09-30 17:45:00 100 /min University of Arterial blood by [facility] Pulse oximetry Branch Body weight 2020-09-30 10:10:00 68.992 kg Universi ty of [place] [facility] BMI 2020-09-30 10:10:00 26.94 kg/m2 Universi ty [facility] [place] [facility] Body height 2020-09-28 22:42:00 160 cm Universi ty of [place] [facility] Systolic blood 2020-08-05 16:00:00 132 mm[Hg] Univer sity of pressure [place] [facility] Diastolic blood 2020-08-05 16:00:00 78 mm[Hg] Unive rsity of pressure [place] [facility] Heart rate 2020-08-05 16:00:00 57 /min Universi ty of [place] [facility] Respiratory rate 2020-08-05 16:00:00 18 /min Univ ersity of [place] [facility] Oxygen saturation in 2020-08-05 16:00:00 97 /min University of Arterial blood by [place] [employer] Pulse oximetry Branch Body temperature 2020-08-05 15:25:00 37.94 [place] Univ ersity of [place] [facility] Body weight 2020-08-05 12:00:00 65.772 kg Universi ty [facility] [place] [facility] BMI 2020-08-05 12:00:00 25.69 kg/m2 Universi ty [facility] [place] [facility] Systolic blood 2020-08-03 19:00:00 141 mm[Hg] Univer sity of pressure [place] [facility] Diastolic blood 2020-08-03 19:00:00 83 mm[Hg] Unive rsity of pressure [place] [facility] Heart rate 2020-08-03 19:00:00 77 /min Universi ty [facility] [place] [facility] Body temperature 2020-08-03 19:00:00 37.17 K[place] Univ ersity of [place] [facility] Respiratory rate 2020-08-03 19:00:00 23 /min Univ ersity of [place] [facility] Oxygen saturation in 2020-08-03 19:00:00 96 /min University of Arterial blood by [place] [employer] eugenio Pulse oximetry Branch Body weight 2020-08-03 14:04:00 65.772 kg Universi ty of [place] [facility] BMI 2020-08-03 14:04:00 25.69 kg/m2 [facility]i ty [facility] [place] [facility] Systolic blood 2020-05-22 16:30:00 129 mm[Hg] Univer sity of pressure [place] [facility] Diastolic blood 2020-05-22 16:30:00 93 mm[Hg] Unive rsity of pressure [place] [facility] Heart rate 2020-05-22 16:30:00 74 /min Universi ty of [place] [facility] Body temperature 2020-05-22 16:30:00 36.89 K[place] Univ ersity of [place] [facility] Respiratory rate 2020-05-22 16:30:00 18 /min Univ ersity of [place] [facility] Oxygen saturation in 2020-05-22 16:30:00 99 /min University of Arterial blood by [facility] Pulse oximetry Branch Body weight 2020-05-22 09:09:00 63.05 kg Universi ty of [place] [facility] BMI 2020-05-22 09:09:00 24.62 kg/m2 Universi ty of [place] [facility] Systolic blood 2020-05-20 16:01:00 153 mm[Hg] Univer sity of pressure [place] [facility] Diastolic blood 2020-05-20 16:01:00 94 mm[Hg] Unive rsity of pressure [place] [facility] Heart rate 2020-05-20 16:01:00 86 /min Universi ty of [place] [facility] Body temperature 2020-05-20 16:01:00 37 Kesha Univ ersity of [place] [facility] Respiratory rate 2020-05-20 16:01:00 18 /min Univ ersity of [place] [facility] Oxygen saturation in 2020-05-20 16:01:00 98 /min University of Arterial blood by [facility] Pulse oximetry Branch Body weight 2020-05-20 09:00:00 64.456 kg Universi ty of [place] [facility] BMI 2020-05-20 09:00:00 25.17 kg/m2 [facility]i ty [facility] [place] [facility] Body height 2020-05-16 07:01:00 160 cm [facility]i ty [facility] [place] [facility] Systolic blood 2020-04-07 15:39:00 146 mm[Hg] Univer sity of pressure [place] [facility] Diastolic blood 2020-04-07 15:39:00 78 mm[Hg] Unive rsity of pressure [place] [facility] Heart rate 2020-04-07 15:39:00 68 /min Universi ty of [place] [facility] Body temperature 2020-04-07 15:39:00 37.17 K[place]ha Univ ersity of [place] [facility] Respiratory rate 2020-04-07 15:39:00 18 /min Univ ersity of [place] [facility] Oxygen saturation in 2020-04-07 15:39:00 98 /min University of Arterial blood by [facility] Pulse oximetry Branch Body weight 2020-04-07 09:01:00 60.963 kg [facility] BMI 2020-04-07 09:01:00 21.69 kg/m2 [facility] Body height 2020-04-05 22:08[facility]-03-06 17:33:00 146 mm[Hg] Univer sity of pressure [facility] Diastolic blood 2020-03-06 17:33:00 96 mm[Hg] Unive rsity of pressure [facility] Heart rate 2020-03-06 17:33:00 73 /min [facility] Body temperature 2020-03-06 17:33:00 36.5 [facility] 2020-03-06 17:33:00 18 /min [facility] in 2020-03-06 17:33:00 99 /min [facility] Arterial blood by [facility] Pulse oximetry Branch Body height 2020-03-06 14:20:00 160 cm [facility] Body weight 2020-03-06 14:20:00 62.596 kg [facility] BMI 2020-03-06 14:20:00 24.45 kg/m2 [facility] Procedures Procedure Date / Time Performing Clinician Source Performed CT ABDOMEN PELVIS W CONTRAST 2021-04-30 Ruth Watts Un iversity of 06:57:51 [facility] XR CHEST 1 VW 2021-04-30 Ruth Watts [facility] 05:13:21 [facility] LIPASE 2021-04-30 Ruth Watts [facility] 05:00:00 [facility] [facility] TROPONIN I 2021-04-30 Ruth Watts [facility] 05:00:00 [facility] COMP. METABOLIC PANEL ([id number]) 2021-04-30 Ruth Watts [facility] of 05:00:00 [facility] CBC WITH DIFF 2021-04-30 Ruth Watts [place] of 05:00:00 [facility] COVID-19 (ID NOW RAPID TESTING) 2021-04-30 Ruth Watts [facility] 05:00:00 [facility] LIPASE 2021-04-20 Geronimo De Los Santos [facility] 08:45:00 [facility] MAGNESIUM 2021-04-20 [facility] of 08:45:00 [facility] BASIC METABOLIC PANEL (NA, K, CL, 2021-04-20 Kade De Los Santos [place] of CO2, GLUCOSE, BUN, CREATININE, 08:45:00 T ex Medical CA) Branch CBC WITH DIFF 2021-04-20 [facility] [place] of 08:45:00 [facility] FECAL LEUKOCYTES 2021-04-19 Juan Ramon [facility] of 09:35:00 [facility] MAGNESIUM 2021-04-[address] [facility] of 08:59:00 [facility] BASIC METABOLIC PANEL (NA, K, CL, 2021-04-19 [facility] of CO2, GLUCOSE, BUN, CREATININE, 08:59:00 [facility] [place] CBC WITH DIFF 2021-04-19 [facility] of 08:59:00 [facility] PHOSPHORUS 2021-04-18 [facility] of 21:55:00 [facility] LACTIC ACID WHOLE BLOOD 2021-04-18 Juan Ramon [facility] ersity of 21:55:00 [facility] PROCALCITONIN 2021-04-18 Juan Ramon [facility] o f 21:55:00 [facility] BLOOD CULTURE SCREEN 2021-04-18 Rehan Collins [facility] ity of 17:37:00 [facility] LACTIC ACID WHOLE BLOOD 2021-04-18 Rehan Collins [facility] ersity of 17:34:00 [facility] BLOOD CULTURE SCREEN 2021-04-18 Rehan Collins [facility] ity of 17:17:00 [facility] CT ABDOMEN PELVIS W CONTRAST 2021-04-18 Rehan Collins [place] of 17:01:30 [facility] POCT TEST 2021-04-18 [facility] of 16:45:00 [facility] URINE DRUG (IMMUNOASSAY) - 2021-04-18 Rehan Collins [facility] of COMPREHENSIVE DRUG SCREEN 16:39:00 [facility] URINALYSIS 2021-04-[address] [facility] o f 16:39:00 [facility] URINE CULTURE 2021-04-[address] [facility] o f 16:39:00 [facility] COVID-19 (ID NOW RAPID TESTING) 2021-04-18 [facility] of 15:59:00 [facility] LAB ONLY COVID INTERPRETATION 2021-04-[address] [facility] of 15:59:00 [facility] LIPASE 2021-04-[address] [facility] o f 15:55:00 [facility] COMP. METABOLIC PANEL ([id number]) 2021-04-[address] [facility] of 15:55:00 [facility] ETHANOL 2021-04-[address] [facility] o f 15:55:00 [facility] CBC WITH DIFF 2021-04-[address] [facility] o f 15:55:00 [facility] CBC WITH DIFF 2021-03-10 Maddy Coburn [place] of 09:07:00 [facility] LACTIC ACID WHOLE BLOOD 2021-03-08 ShahzadilleJey [facility] ty of 09:53:00 [facility] BASIC METABOLIC PANEL (NA, K, CL, 2021-03-08 AlexMaddy [place] of CO2, GLUCOSE, BUN, CREATININE, 09:52:00 T [facility] CBC WITH DIFF 2021-03-08 Maddy Coburn [place] of 09:52:00 [facility] LACTIC ACID WHOLE BLOOD 2021-03-07 Cooper Mcneil [facility] ty of 22:42:00 [facility] TEST, URINE 2021-03-07 Maddy Coburn [place] of 18:03:00 [facility] URINE DRUG (IMMUNOASSAY) - 4 ER 2021-03-07 Cooper Mcneil [place] of PANEL 18:03:00 [facility] BLOOD CULTURE SCREEN 2021-03-07 Cooper Mcneil of 17:50:00 [facility] LACTIC ACID WHOLE BLOOD 2021-03-07 Cooper Mcneil [facility] ty of 17:33:00 [facility] BLOOD CULTURE SCREEN 2021-03-07 Cooper Mcneil of 17:30:00 [facility] CT ABDOMEN PELVIS W CONTRAST 2021-03-07 Cooper Mcneil Uni versity of 17:25:17 [facility] HB ECG ROUTINE & RHYTHM STRIP 2021-03-07 Cooper Mcneil iversity of 16:43:55 [facility] COVID-19 (ID NOW RAPID TESTING) 2021-03-07 Cooper Mcneil of 16:33:00 [facility] LIPASE 2021-03-07 Cooper Mcneil of 16:30:00 [facility] HEPATIC FUNCTION PANEL ([id number]) 2021-03-07 Cooper Mcneil niversity of (ALB,T.PRO,BILI 16:30:00 [facility],BU/BC,ALT,AST,ALK PHOS) [place] BASIC METABOLIC PANEL (NA, K, CL, 2021-03-07 Vince Mcneil [place] of CO2, GLUCOSE, BUN, CREATININE, 16:30:00 [facility] ETHANOL 2021-03-07 Cooper Mcneil of 16:30:00 [facility] CBC WITH DIFF 2021-03-07 Cooper Mcneil of 16:30:00 [facility] PROTHROMBIN TIME / INR 2021-03-07 Cooper Mcneilit y of 16:30:00 [facility] ACTIVATED PARTIAL THRMPLAS HUMBERTO 2021-03-07 Cooper Mcneil niversity of 16:30:00 [facility] TEST, URINE 2021-01-23 [facility] 11:30:00 [facility] MAGNESIUM 2021-01-23 [facility] o f 10:53:00 [facility] COMP. METABOLIC PANEL ([id number]) 2021-01-23 Beto [facility] of 10:53:00 [facility] ETHANOL 2021-01-23 [facility] o f 10:53:00 [facility] CBC WITH DIFF 2021-01-23 [facility] of 10:53:00 [facility] GLYCOSYLATED HEMOGLOBIN (A1C) 2021-01-23 [facility] of 10:53:00 [facility] US ABDOMEN LIMITED 2021-01-23 Beto, [facility] of 06:30:00 [facility] HB ECG ROUTINE & RHYTHM STRIP 2021-01-22 Deejay Sabillon Un iversity of 23:53:07 [facility] ADC / LCC - DRUG SCREEN TRIAGE 2021-01-22 Deejay Sabillon [facility]iversity of 23:35:00 [facility] COVID-19 (ID NOW RAPID TESTING) 2021-01-22 Deejay Sabillon of 22:45:00 [facility] CT ABDOMEN PELVIS W CONTRAST 2021-01-22 Deejay Sabillon Uni versity of 21:13:48 [facility] URINALYSIS 2021-01-22 Deejay Sabillon of 20:07:00 [facility] LIPASE 2021-01-22 Deejay Sabillon [place] of 19:54:00 [facility] COMP. METABOLIC PANEL ([id number]) 2021-01-22 Deejay Sabillon Un iversity of 19:54:00 [facility] CBC WITHOUT DIFF 2021-01-22 Deejay Sabillon [place] of 19:54:00 [facility] COMP. METABOLIC PANEL ([id number]) 2020-11-02 Azael Rogel Un iversity of 10:13:00 [facility] CBC WITH DIFF 2020-11-02 Azael Rogel [place] of 10:13:00 [facility] MAGNESIUM 2020-10-31 Rogel [facility] of 09:59:00 [facility] BASIC METABOLIC PANEL (NA, K, CL, 2020-10-31 Azael Rogel [place] of CO2, GLUCOSE, BUN, CREATININE, 09:59:00 [facility] [place] CBC WITH DIFF 2020-10-31 Azael Rogel [place] of 09:59:00 [facility] MAGNESIUM 2020-10-30 Juan F [facility] of 11:41:00 [facility] BASIC METABOLIC PANEL (NA, K, CL, 2020-10-30 Juan F [facility] of CO2, GLUCOSE, BUN, CREATININE, 11:41:00 [facility] [place] CBC WITH DIFF 2020-10-30 Azael Rogel [place] of 11:41:00 [facility] FECES CULTURE 2020-10-29 Chris Mclaughlin [place] of 22:54:00 [facility] CLOSTRIDIUM DIFFICILE TOXIN 2020-10-29 Chris Mclaughlin [facility] ersity of 22:54:00 [facility] FECAL PATHOGENS BY PCR 2020-10-29 Chris Mclaughlin [facility] y of 22:54:00 [facility] CBC WITH DIFF 2020-10-29 Chris Mclaughlin [place] of 13:43:00 [facility] PHOSPHORUS 2020-10-29 Richard [facility] of 12:30:00 [facility] MAGNESIUM 2020-10-[address] [facility] of 12:30:00 [facility] BASIC METABOLIC PANEL (NA, K, CL, 2020-10-29 SundayAbram [facility] of CO2, GLUCOSE, BUN, CREATININE, 12:30:00 [facility] [place] COVID-19 (ID NOW RAPID TESTING) 2020-10-28 Evelin Guerin [facility] 19:49:00 [facility] LAB ONLY COVID INTERPRETATION 2020-10-28 Evelin Guerin [facility] of 19:49:00 [facility] URINALYSIS 2020-10-28 Truong Evelin [facility] 18:06:00 [facility] ADC / LCC - DRUG SCREEN TRIAGE 2020-10-28 Truong Evelin [facility] 18:06:00 [facility] CT ABDOMEN PELVIS W CONTRAST 2020-10-28 Evelin Guerin Un iversity of 17:42:32 [facility] HB ECG ROUTINE & RHYTHM STRIP 2020-10-28 Evelin Guerin [facility] of 17:05:24 [facility] LIPASE 2020-10-28 Evelin Guerin [facility] 16:54:00 [facility] TROPONIN I 2020-10-28 Truong [facility] 16:54:00 [facility] HEPATIC FUNCTION PANEL ([id number]) 2020-10-28 Evelin Guerin [facility] (ALB,T.PRO,BILI 16:54:00 [facility],BU/BC,ALT,AST,ALK PHOS) [place] BASIC METABOLIC PANEL (NA, K, CL, 2020-10-28 Truong Evelin G [place] of CO2, GLUCOSE, BUN, CREATININE, 16:54:00 T ex [facility]) Branch ETHANOL 2020-10-28 Evelin Guerin [facility] 16:54:00 [facility] CBC WITH DIFF 2020-10-28 Evelin Guerin [facility] 16:54:00 [facility] HOSPITAL ADM - MISC 2020-10-28 Doctor Unassigned, No Univer sity of 06:01:00 Name [facility] PHOSPHORUS 2020-09-30 Mouna Kebede [place] of 10:31:00 [facility] MAGNESIUM 2020-09-30 [facility] of 10:31:00 [facility] COMP. METABOLIC PANEL ([id number]) 2020-09-30 Mouna Kebede iversity of 10:31:00 [facility] CBC WITH DIFF 2020-09-30 [facility] 10:31:00 [facility] BLOOD CULTURE SCREEN 2020-09-30 Delio [facility] of 03:42:00 [facility] BLOOD CULTURE SCREEN 2020-09-30 Delio [facility] of 03:04:00 [facility] PROCALCITONIN 2020-09-30 Delio, [facility] of 03:04:00 [facility] CLOSTRIDIUM DIFFICILE TOXIN 2020-09-29 Chris Mclaughlin [facility] ersity of 19:48:00 [facility] LIPASE 2020-09-29 Delio [facility] of 10:32:00 [facility] MAGNESIUM 2020-09-29 Delio [facility] of 10:32:00 [facility] BASIC METABOLIC PANEL (NA, K, CL, 2020-09-29 Abram Mclaughlin [facility] of CO2, GLUCOSE, BUN, CREATININE, 10:32:00 [facility] SEDIMENTATION RATE 2020-09-29 Delio [facility] of 10:32:00 [facility] CBC WITH DIFF 2020-09-[address] [facility] of 10:32:00 [facility] LACTIC ACID WHOLE BLOOD 2020-09-29 Cooper Mcneil [facility] ty of 05:26:00 [facility] COVID-19 (ID NOW RAPID TESTING) 2020-09-28 Cooper Mcneil [place] of 21:09:00 [facility] LACTIC ACID WHOLE BLOOD 2020-09-28 Cooper Mcneil [facility] ty of 20:59:00 [facility] BLOOD CULTURE SCREEN 2020-09-28 Cooper Mcneil [place] of 20:58:00 [facility] BLOOD CULTURE WORKUP 2020-09-28 Cooper Mcneil [place] of 20:58:00 [facility] GRAM POSITIVE BLOOD PATHOGENS DNA 2020-09-28 Vince Mcneil [place] of PROBE-AEROBIC 20:58:00 [facility] URINALYSIS 2020-09-28 Cooper Mcneil [place] of 19:53:00 [facility] ADC / LCC - DRUG SCREEN TRIAGE 2020-09-28 Cooper Mcneil niversity of 19:52:00 [facility] CT ABDOMEN PELVIS W CONTRAST 2020-09-28 Cooper Mcneil Uni versity of 19:44:06 [facility] LIPASE 2020-09-28 Cooper Mcneil of 17:55:00 [facility] TEST, SERUM 2020-09-28 Cooper Mcneil of 17:55:00 [facility] TROPONIN I 2020-09-28 Cooper Mcneil of 17:55:00 [facility] HEPATIC FUNCTION PANEL ([id number]) 2020-09-28 Cooper Mcneil niversity of (ALB,T.PRO,BILI 17:55:00 [facility],BU/BC,ALT,AST,ALK PHOS) Branch BASIC METABOLIC PANEL (NA, K, CL, 2020-09-28 Vince Mcneil [place] of CO2, GLUCOSE, BUN, CREATININE, 17:55:00 [facility] [place] ETHANOL 2020-09-28 Cooper Mcneil of 17:55:00 [facility] CBC WITH DIFF 2020-09-28 Cooper Mcneil of 17:55:00 [facility] PROTHROMBIN TIME / INR 2020-09-28 Cooper Mcneilit y of 17:55:00 [facility] ACTIVATED PARTIAL THRMPLAS HUMBERTO 2020-09-28 Cooper Mcneil niversity of 17:55:00 [facility] EMERGENCY DEPARTMENT DOCUMENTS 2020-09-28 Doctor Unassigned , [facility] of 06:01:00 Name [facility] URINALYSIS 2020-08-05 Tino Oneil of 16:45:00 [facility] LIPASE 2020-08-05 Tino Oneil of 15:45:00 [facility] COMP. METABOLIC PANEL ([id number]) 2020-08-05 Tino Oneil iversity of 15:45:00 [facility] LIPID PANEL ([id number])(TOTAL 2020-08-05 Tino Oneil sity of CHOLESTEROL, TRIGLYCERIDES, HDL) 15:45:00 [facility] CBC WITH DIFF 2020-08-05 Tino Oneil of 15:45:00 [facility] LACTIC ACID WHOLE BLOOD 2020-08-03 Tino Oneil ty of 17:49:00 [facility] URINALYSIS 2020-08-03 [facility] of 16:15:00 [facility] CT ABDOMEN PELVIS W CONTRAST 2020-08-03 Oneil [facility] versity of 15:15:44 [facility] COVID-19 (ID NOW RAPID TESTING) 2020-08-03 [facility] of 14:12:00 [facility] LIPASE 2020-08-03 [facility] of 14:11:00 [facility] COMP. METABOLIC PANEL ([id number]) 2020-08-03 [place] [facility] iversity of 14:11:00 [facility] LIPID PANEL ([id number])(TOTAL 2020-08-03 [facility] sity of CHOLESTEROL, TRIGLYCERIDES, HDL) 14:11:00 [facility] CBC WITH DIFF 2020-08-03 [facility] of 14:11:00 [facility] GLYCOSYLATED HEMOGLOBIN (A1C) 2020-08-03 Oneil [facility] iversity of 14:11:00 [facility] LACTIC ACID WHOLE BLOOD 2020-08-03 [facility] 14:10:00 [facility] PHOSPHORUS 2020-05-22 [facility] of 06:20:00 [facility] MAGNESIUM 2020-05-22 [facility] of 06:20:00 [facility] BASIC METABOLIC PANEL (NA, K, CL, 2020-05-22 [facility] of CO2, GLUCOSE, BUN, CREATININE, 06:20:00 [facility]) Branch CBC WITH DIFFERENTIAL 2020-05-22 [facility] of 06:20:00 [facility] MAGNESIUM 2020-05-21 Judith Yo [facility] o f 18:31:00 [facility] BASIC METABOLIC PANEL (NA, K, CL, 2020-05-21 [facility] of CO2, GLUCOSE, BUN, CREATININE, 18:31:[address] [facility] [place]) Branch COVID-19 (ID NOW RAPID TESTING) 2020-05-21 Judith Smith [place] of 05:14:00 [facility] LIPASE 2020-05-21 Judith Smith [place] of 03:22:00 [facility] MAGNESIUM 2020-05-21 Ninfa Sevilla [place] of 03:22:00 [facility] COMP. METABOLIC PANEL ([id number]) 2020-05-21 Judith Smith Un iversity of 03:22:00 [facility] CBC WITH DIFFERENTIAL 2020-05-21 Judith Smith [facility] of 03:22:00 [facility] MR ABDOMEN W WO CONTRAST MRCP 2020-05-19 Ganga Cash Un iversity of 16:24:44 [facility] NM HEPATOBILIARY W INTERVENTION 2020-05-18 [facility] of 15:10:00 [facility] BASIC METABOLIC PANEL (NA, K, CL, 2020-05-17 Juan Ramon [facility] of CO2, GLUCOSE, BUN, CREATININE, 08:59:00 T ex Medical [place]) Branch CBC WITH DIFFERENTIAL 2020-05-17 Juan F [facility] of 08:59:00 [facility] ADC / LCC - DRUG SCREEN TRIAGE 2020-05-16 Antonina Yo niversity of 06:51:00 [facility] XR KUB 2020-05-16 Juan Ramon [facility] of 06:40:53 [facility] COVID-19 (ID NOW RAPID TESTING) 2020-05-16 Ninfa Sevilla [place] of 05:01:00 [facility] URINALYSIS 2020-05-16 Ninfa Sevilla [facility] 04:23:00 [facility] LIPASE 2020-05-16 Ninfa Sevilla [place] of 02:22:00 [facility] HEPATIC FUNCTION PANEL ([id number]) 2020-05-16 Ninfa Sevilla [facility] (ALB,T.PRO,BILI 02:22:00 [facility],BU/BC,ALT,AST,ALK PHOS) Branch BASIC METABOLIC PANEL (NA, K, CL, 2020-05-16 Zainab Sevilla ra [facility] CO2, GLUCOSE, BUN, CREATININE, 02:22:00 [facility] ex Medical [place]) Branch CBC WITH DIFFERENTIAL 2020-05-16 Ninfa Sevilla [facility] ity of 02:22:00 [facility] EMERGENCY DEPARTMENT DOCUMENTS 2020-05-15 Doctor Unassigned , [facility] of 05:01:00 Name [facility] BASIC METABOLIC PANEL (NA, K, CL, 2020-04-07 Juan F [facility] CO2, GLUCOSE, BUN, CREATININE, 08:50:00 [facility] [place] CBC WITH DIFFERENTIAL 2020-04-07 Azael Rogel [place] of 08:50:00 [facility] POCT GLUCOSE (AUTOMATED) 2020-04-06 [facility] 16:18:00 [facility] US GALL BLADDER 2020-04-06 Juan Ramon [facility] of 13:43:29 [facility] BASIC METABOLIC PANEL (NA, K, CL, 2020-04-06 [facility] of CO2, GLUCOSE, BUN, CREATININE, 08:06:00 [facility] [place] [place] COVID-19 (ID NOW RAPID TESTING) 2020-04-06 Evelin Guerin [place] of 00:25:00 [facility] CT ABDOMEN PELVIS W CONTRAST 2020-04-05 Evelin Guerin Un iversity of 23:39:23 [facility] URINALYSIS 2020-04-05 Truong [facility] 23:04:00 [facility] ADC / LCC - DRUG SCREEN TRIAGE 2020-04-05 Truong Evelin [facility] 23:04:00 [facility] EKG-12 LEAD 2020-04-05 Ninfa Sevilla [place] of 22:17:33 [facility] LIPASE 2020-04-05 Truong Evelin G [facility] 22:10:00 [facility] MAGNESIUM 2020-04-05 [facility] 22:10:00 [facility] TROPONIN I 2020-04-05 [facility] 22:10:00 [facility] COMP. METABOLIC PANEL ([id number]) 2020-04-05 Evelin Guerin U niversity of 22:10:00 [facility] ETHANOL 2020-04-05 Truong [facility] 22:10:00 [facility] CBC WITH DIFFERENTIAL 2020-04-05 [facility] 22:10:00 [facility] EKG-12 LEAD 2020-04-05 Truong [facility] of 22:08:47 [facility] CANCER ANTIGEN-GI (CA 19-9) 2020-03-06 Mouna Kebede [facility] ersity of 10:53:00 [facility] C-REACTIVE PROTEIN 2020-03-06 Mouna Kebede [place] of 10:53:00 [facility] SEDIMENTATION RATE 2020-03-06 Mouna Kebede [place] of 10:53:00 [facility] COLONOSCOPY 2020-03-05 Nohemi Magallon [place] of 16:21:00 [facility] CARCINOEMBRYONIC ANTIGEN 2020-03-05 Mouna Kebede ity of 15:31:00 [facility] COLONOSCOPY (ENDO) 2020-03-05 Chris Mclaughlin of 13:52:32 [facility] PHOSPHORUS 2020-03-05 Mouna Kebede of 10:23:00 [facility] MAGNESIUM 2020-03-05 Mouna Kebede of 10:23:00 [facility] COMP. METABOLIC PANEL ([id number]) 2020-03-05 Mouna Kebede Un iversity of 10:23:00 [facility] CBC WITH DIFFERENTIAL 2020-03-05 Mouna Kebede of 10:23:00 [facility] PROTHROMBIN TIME / INR 2020-03-05 Mouna Kebedeit y of 10:23:00 [facility] US PELVIS COMPLETE WITH 2020-03-05 Mouna Kebede ty of TRANSVAGINAL 01:35:11 [facility] SURGICAL PATHOLOGY EXAM 2020-03-04 Nohemi Magallon Un iversity of 15:04:00 [facility] ESOPHAGOGASTRODUODENOSCOPY 2020-03-04 Nohemi Magallon [place] of 14:46:00 [facility] EGD (ENDO) 2020-03-04 Shauna Song [place] of 14:39:56 [facility] PHOSPHORUS 2020-03-04 Mouna Kebede of 09:00:00 [facility] MAGNESIUM 2020-03-04 Mouna Kebede of 09:00:00 [facility] BASIC METABOLIC PANEL (NA, K, CL, 2020-03-04 Abram Mclaughlin [facility] of CO2, GLUCOSE, BUN, CREATININE, 09:00:00 T exas Medical CA) Branch CBC WITH DIFFERENTIAL 2020-03-04 Chris Mclaughlin of 09:00:00 [facility] CT ABDOMEN PELVIS W CONTRAST 2020-03-03 Chris Mclaughlin Uni versity of 22:35:33 [facility] BASIC METABOLIC PANEL (NA, K, CL, 2020-03-03 Abram Mclaughlin University of CO2, GLUCOSE, BUN, CREATININE, 08:34:00 [place] [facility] [place]) Branch CBC WITH DIFFERENTIAL 2020-03-03 Chris Mclaughlin of 08:34:00 [facility] ECHO ROUTINE W/DOPPLER COLOR 2020-03-02 Chris Mclaughlin versity of 18:34:01 [facility] XR ABDOMEN ACUTE SERIES 2020-03-02 Cooper Mcneil ty of 17:14:17 [facility] URINALYSIS 2020-03-02 Cooper Mcneil of 16:22:00 [facility] ADC / LCC - DRUG SCREEN TRIAGE 2020-03-02 Cooper Mcneil niversity of 16:21:00 [facility] TEST, SERUM 2020-03-02 Cooper Mcneil of 14:27:00 [facility] PROTHROMBIN TIME / INR 2020-03-02 Cooper Mcneilit y of 14:27:00 [facility] ACTIVATED PARTIAL THRMPLAS HUMBERTO 2020-03-02 Cooper Mcneil niversity of 14:27:00 [facility] EKG-12 LEAD 2020-03-02 Cooper Mcneil of 14:19:13 [facility] LIPASE 2020-03-02 Cooper Mcneil of 14:13:00 [facility] TROPONIN I 2020-03-02 Cooper Mcneil of 14:13:00 [facility] HEPATIC FUNCTION PANEL (99569) 2020-03-02 Cooper Mcneil niversity of (ALB,T.PRO,BILI 14:13:00 [facility],BU/BC,ALT,AST,ALK PHOS) Branch BASIC METABOLIC PANEL (NA, K, CL, 2020-03-02 Vince Mcneil University of CO2, GLUCOSE, BUN, CREATININE, 14:13:00 [facility]) Branch ETHANOL 2020-03-02 Cooper Mcneil of 14:13:00 [facility] CBC WITH DIFFERENTIAL 2020-03-02 Cooper Mcneil of 14:13:00 [facility] N-TERMINAL PRO-BNP 2020-03-02 Cooper Mcneil of 14:13:00 [facility] CORONAVIRUS COVID-19 TESTING 2020-03-02 Cooper Mcneil versity of 14:13:00 [facility] EKG-12 LEAD 2020-03-02 Cooper Mcneil of 14:10:10 [facility] EXTERNAL PROVIDER RECORDS 2020-03-02 Doctor Unassigned, No University of 05:01:00 Name [facility] HOSPITAL ADMISSION 2020-03-02 Doctor Unassigned, No Univers ity of 05:01:00 Name [facility] CBC WITH DIFFERENTIAL 2020-01-01 Shauna Song Universit y of 17:34:00 [facility] GLYCOSYLATED HEMOGLOBIN (A1C) 2020-01-01 Shauna Song U niversity of 17:34:00 [facility] Encounters Start End Encounter Admission Attending Care Care Encounter Source Date/Time Date/Time Type Type Clinicians Facility Department ID 2021-09-13 Emergency [facility] [id number] Univers 02:01:28 ity of [facility] 2021-09-13 Emergency [facility] [id number] Univers 02:01:16 ity of [facility] 2021-09-12 Emergency [facility] [id number] Univers 23:24:18 ity of [facility] 2021-09-12 Emergency [facility] [id number] Univers 15:06:45 ity of [facility] 2021-09-12 Emergency [facility] [id number] Univers 05:36:25 ity of [facility] 2021-09-11 Emergency [facility] [id number] Univers 11:36:34 ity of [facility] 2021-09-11 Emergency [facility] [id number] Univers 05:46:33 ity of [facility] 2021-09-10 Emergency [facility] [id number] Univers 18:59:11 ity of [facility] 2021-09-10 Emergency [facility] [id number] Univers 18:31:55 ity of [facility] 2021-09-10 Emergency [facility] [id number] Univers 05:39:41 ity of [facility] 2021-09-10 Emergency [facility] [id number] Univers 04:39:39 ity of [facility] 2021-07-09 2021-07-09 Telephone Maynor Irwin 1.2.840.114 [id number] Univers 00:00:00 00:00:00 , Jenn Conte [id number] ity of [phone] [place] [address] Branch 2021-07-04 2021-07-04 [facility] 1.2.840.114 [id number] Univers 00:00:00 00:00:00 Jessica Galicia [id number] i ty of [place] [id number] Carlos Enriquea s Professio [phone] [address] Building 2021-06-24 2021-06-24 Outpatient R [facility] [id number] 42Q-20 Univers 10:40:00 10:40:00 JESSICA [id number] [facility] 2021-06-24 2021-06-24 Outpatient R [facility] [id number] Univers 10:40:00 10:40:00 JESSICA [facility] 2021-06-23 2021-06-23 Outpatient R [facility] [id number] 42Q-20 Univers 10:20:00 10:20:00 JESSICA [id number] [facility] 2021-06-23 2021-06-23 [facility] [id number] Univers 10:20:00 10:20:00 JESSICA [facility] 2021-06-18 2021-06-18 Telephone [facility] 1.2.840.114 [id number] Univers 00:00:00 00:00:[address] [facility] [id number] it y [place] 4.2.7.2.686 Carlos Enrique as Professio [phone] [address] Office Building One 2021-05-21 2021-05-21 Outpatient R [facility] [id number] Univers 14:00:00 14:00:00 [id number] [facility] 2021-05-21 2021-05-21 [facility] [id number] Univers 14:00:00 14:00:00 INDIRADENATERRY [facility] 2021-04-29 2021-04-30 Emergency [facility] 1.2.949.055 [id number] Univers 23:48:00 02:58:00 Ruth Johnton 350.1.13.10 it[place] [phone] [facility] 084 Branch 2021-04-21 2021-04-21 Transition Dc Mays 1.2.840.114 [id number] Univers 00:00:00 00:00:00 of Care Martha Conte 350.1.13.10 ity of [place] [phone] [facility] 403 Branch 2021-04-18 2021-04-20 [facility] Karina Rehan [facility] 1.2.8 40.114 [id number] Univers 10:18:00 14:37:00 Chris Barnhart [place] [id number] ity [id number] [place] [phone] [place] 142671 [place] 2021-03-30 2021-03-30 Outpatient R JYOTI GORGE [facility] [id number] Univers 15:30:00 15:30:00 [id number] ity of [facility] 2021-03-30 2021-03-30 Outpatient R JYOTI [facility] [id number] Univers 15:30:00 15:30:00 ity [facility] 2021-03-23 2021-03-23 [facility] [id number] 42Q-20 Univers 11:20:00 11:20:00 JESSICA [id number] ity [facility] 2021-03-23 2021-03-23 [facility] [id number] Univers 11:20:00 11:20:00 JESSICA ity [facility] 2021-03-11 2021-03-11 Dc Cloud 1.2.840.114 [id number] Univers 00:00:00 00:00:00 of Care Martha Conte 350.1.13.10 ity of [place] [phone] [facility] 403 Branch 2021-03-07 2021-03-10 [facility] Cooper Mcneil [facility] 1.2.840.1 [id number] Univers 11:20:00 11:00:00 Encounter Maddy Coburn 350.1.13.10 ity [place] [phone] [address] 2021-03-04 2021-03-04 Outpatient [facility] [id number] Univers 14:30:00 14:30:00 [id number] [facility] 2021-03-04 2021-03-04 Outpatient R [facility] [id number] Univers 14:30:00 14:30:00 [facility] 2021-02-24 2021-02-24 Telemedici [facility] 1.2.840.114 [id number] Univers 07:48:34 10:55:01 ne Visit Jessica Galicia 350.1.13.10 ity [facility] 4.2.7.2.[place] Profess[place] [phone] [place] dicma nal [address] [place] [address] 2021-02-24 2021-02-24 Outpatient R [facility] [id number] 42Q-20 Univers 09:00:00 09:00:00 JESSICA [id number] [facility] 2021-02-24 2021-02-24 Outpatient R [facility] [id number] Univers 09:00:00 09:00:00 JESSICA [facility] 2021-02-23 2021-02-23 Refill [facility] .2.840.114 [id number] Univers 00:00:00 00:00:00 Jessica Galicia 350.1.13.10 i [place] [phone] La dical [place]al [address] [place] [address] 2021-02-23 2021-02-23 Telephone [facility] 1.2.840.114 [id number] Univers 00:00:00 00:00:00 Jessica Galicia 350.1.13.10 i ty [place]2.[place] [phone] La dical nal 044 [facility] 2021-01-22 2021-01-23 Emergency Deejay Sabillon 1.2.840. 114 [id number] Univers 12:08:00 17:00:00 NenachrisMayank 350.1.13. 10 ity of [facility] 4.2.7.2.686 [place] [phone] [facility] 093 [place] 2021-01-12 2021-01-12 [facility] [id number] 42Q-[id number] Univers 16:00:00 16:00:00 JESSICA [id number] ity [facility] 2021-01-12 2021-01-12 Outpatient R [facility] [id number] Univers 16:00:00 16:00:00 JESSICA [facility] 2021-01-12 2021-01-12 Telemedici [facility] 1.2.840.114 [id number] Univers 10:23:44 15:47:19 ne Visit Jessica Galicia 350.1.13.10 it[place] [phone] La dical nal [address] [place] [address] 2021-01-12 2021-01-12 Telephone [facility] 1.2.840.114 [id number] Univers 00:00:00 00:00:00 Jessica Galicia 350.1.13.10 i ty of [place] 4.2.7.[place] [phone] La dical nal 231 [facility] 2021-01-08 2021-01-08 Telephone [facility] 1.2.840.114 [id number] Univers 00:00:00 00:00:00 Jessica Galicia 350.1.13.10 i ty of [place].2.[place] [phone] La dical nal 044 [facility] 2021-01-06 2021-01-06 [facility] 1.2.840.114 [id number] Univers 00:00:00 00:00:00 Paris Galicia 350.1.13.10 i ty of [place] 4.2.7.2.[place] [phone] La dicma nal [address] [place] [address] 2020-12-25 2020-12-25 Telemedici [facility] 1.2.840.114 [id number] Univers 08:52:48 12:11:43 ne Visit Jessica Galicia 350.1.13.10 ity [place] [phone] [address] 2020-12-25 2020-12-25 [facility] [id number] 42Q-20 Univers 09:40:00 09:40:00 JESSICA [id number] [facility] 2020-12-25 2020-12-25 [facility] [id number] Univers 09:40:00 09:40:00 JESSICA [facility] 2020-12-23 2020-12-23 [facility] [id number] 42Q-20 Univers 10:40:00 10:40:00 JESSICA [id number] [facility] 2020-12-23 2020-12-23 [facility] [id number] Univers 10:40:00 10:40:00 JESSICA [facility] 2020-12-23 2020-12-23 Telephone [facility] 1.2.840.114 [id number] Univers 00:00:00 00:00:00 Jessica Galicia 350.1.13.10 i ty [place] [phone] [address] 2020-11-27 2020-11-27 Outpatient [facility] [id number] 42Q-20 Univers 08:40:00 08:40:00 JESSICA [id number] [facility] 2020-11-27 2020-11-27 [facility] [id number] Univers 08:40:00 08:40:00 JESSICA itviktoria [facility] 2020-11-27 2020-11-27 Telemedici [facility] 1.2.840.114 [id number] Univers 08:11:31 08:26:31 ne Visit Jessica Galicia 350.1.13.10 ity of [place] 4.2.7.[place] [phone] La dical nal 044 [facility] 2020-11-25 2020-11-25 Out[facility] [id number] 42Q-20 Univers 09:40:00 09:40:00 JESSICA [id number] ity [facility] 2020-11-25 2020-11-25 Outpatient R [facility] [id number] Univers 09:40:00 09:40:00 JESSICA meehan [facility] 2020-11-19 2020-11-19 Telemedici [facility] 1.2.840.114 [id number] Univers 09:00:00 09:40:00 ne Visit Jessica Galicia 350.1.13.10 ity of [place] 4[place]2.7.2.[place] [phone] La dical nal [address] [place] [address] 2020-11-19 2020-11-19 Outpatient [facility] [id number] Univers 09:00:00 09:00:00 JESSICA ity [facility] 2020-11-03 2020-11-03 Transition Dc Mays 1.2.840.114 [id number] Univers 00:00:00 00:00:00 of Eboni Conte 350.1.13.10 ity of [place] [phone] [facility] 403 Branch 2020-10-28 2020-11-02 [facility] Evelin Guerin [facility] 1.2.840. 114 [id number] Univers 10:32:00 14:53:00 Encounter Chris Mclaughlin 350.1.13.10 ity of [place] 4.2.7.2.[place] [phone] [address] 2020-09-28 2020-09-30 Emergency Cooper Mcneil [facility] 1.2.840. 114 [id number] Univers 11:24:00 12:40:00 Chris Mclaughlin 350.1.13.10 ity of [place].2.[place] [phone] [address] 2020-09-22 2020-09-22 Telemedici [facility] 1.2.840.114 [id number] Univers 07:55:46 16:43:37 ne Visit Jessica Galicia 350.1.13.10 ity of [place] 4.2.7.2.[place] [phone] La dical nal [address] [place] [address] 2020-09-22 2020-09-22 Outpatient R [facility] [id number] 42Q-20 Univers 09:40:00 09:40:00 JESSICA [id number] ity [facility] 2020-09-22 2020-09-22 Outpatient R [facility] [id number] Univers 09:40:00 09:40:00 [facility] 2020-08-10 2020-08-10 Telephone [facility] 1.2.840.114 [id number] Univers 00:00:00 00:00:00 Jessica Galicia 350.1.13.10 i ty of [place] 4.2.7.2.686 [facility] [phone] La dical nal [address] [place] [address] 2020-08-05 2020-08-05 Emergency [facility] 1.2.827.602 [id number] Univers 10:29:00 17:15:00 Tino Galicia 350.1.13.10 i ty of [place] 4.2.7.2.686 [facility] [place] [phone] [address] 2020-08-03 2020-08-03 Emergency [facility] 1.2.563.859 [id number] 1916 [facility] 09:00:00 14:22:00 Tino Galicia 350.1.13.10 i ty [place] [phone] [place] 142674 [place] 2020-07-27 2020-07-27 Outpatient R [facility] [id number] Univers 10:00:00 10:00:00 ISAlphonse, [id number] ity of [facility] 2020-07-27 2020-07-27 Outpatient R [facility] [id number] Univers 10:00:00 10:00:00 CALEB, ity of [facility] 2020-07-06 2020-07-06 Outpatient R [facility] [id number] Univers 11:00:00 11:00:00 CALEB, [id number] ity of [facility] 2020-06-22 2020-06-22 [facility]medici [facility] 1.2.840.114 [id number] Univers 08:27:30 13:13:04 ne Visit Jessica Galicia 350.1.13.10 ity [facility] 4.2.7.2.[place] [phone] La dical nal [address] [place] [address] 2020-06-22 2020-06-22 [facility] [id number] Univers 10:00:00 10:00:00 JESSICA [facility] 2020-06-22 2020-06-22 Outpatient [facility] [id number] 42Q-20 Univers 10:00:00 10:00:00 JESSICA ity [facility] 2020-06-22 2020-06-22 Telephone [facility] 1.2.840.114 [id number] Univers 00:00:00 00:00:00 Jessica Galicia 350.1.13.10 i ty of [place] 4[place].2.[place] [phone] La dical nal [address] [place] [address] 2020-06-17 2020-06-17 Outpatient R [facility] [id number] Univers 08:00:00 08:00:00 CALEB, ity of [facility] 2020-06-17 2020-06-17 Outpatient R [facility] [id number] Univers 08:00:00 08:00:00 ISE, ity of [facility] 2020-06-16 2020-06-16 Outpatient R TADEO [facility] [id number] 42Q-20 Univers 15:00:00 15:00:00 JESSICA [id number] ity of [facility] 2020-06-16 2020-06-16 Outpatient R TADEO [facility] [id number] Univers 15:00:00 15:00:00 JESSICA ity of [facility] 2020-06-10 2020-06-10 Outpatient R [facility] [id number] Univers 13:30:00 13:30:00 ISAlphonse [id number] ity of [facility] 2020-06-10 2020-06-10 Outpatient R [facility] [id number] Univers 13:30:00 13:30:00 ISE, ity of [facility] 2020-06-03 2020-06-03 [facility] 1.2.840.114 [id number] Univers 10:30:00 11:00:00 ne Visit BRENNEN dixon 350.1.13.10 ity of [facility] 4.2.7.2.[place] C[place] AT [phone] La evgeny FRANCIS [address] [place] [address] 2020-06-03 2020-06-03 Outpatient R [facility] [id number] Univers 10:30:00 10:30:00 CALEB [id number] ity of [facility] 2020-06-03 2020-06-03 Outpatient R [facility] [id number] Univers 10:30:00 10:30:00 ISE, ity of [facility] 2020-04-23 2020-05-26 [facility]medici [facility] 1.2.840.114 [id number] Univers 13:37:13 13:31:13 ne Visit Jessica Galicia 350.1.13.10 ity of [place] [phone] La evgeny nal 044 [facility] 2020-05-20 2020-05-22 Emergency Judith Smith [facility] 1.2.840.1 14 [id number] Univers 21:33:07 15:38:00 MandyLinnea mccann Christopher Galicia 350.1.13.10 ity of [place] 4.2.7.2.686 [facility] [phone] [place] [address] [place] 2020-05-22 2020-05-22 Patient Regine Howarddev 1.2.840.114 [id number] Univers 00:00:00 00:00:00 Outreach Alphonse Conte 350.1.13.10 i ty of [place] 4[place]2.7.2.[place] [phone] [facility] 403 [address] 2020-05-21 2020-05-21 Transition Dc Mays 1.2.840.114 [id number] Univers 00:00:00 00:00:00 of Care Martha Conte 350.1.13.10 ity of [place].2.[place] [phone] [address] 2020-05-21 2020-05-21 Telephone JENN Tripathi 1.2.675.974 [id number] Univers 00:00:00 00:00:00 Eliane MENON 350.1.13.10 it y of [facility] 4.2.7.2.686 Carlos Enrique as [phone] [address] 2020-05-15 2020-05-20 Hospital Ninfa Sevilla [facility] 1.2.84 0.114 [id number] Univers 21:13:06 15:09:00 Encounter Antonina Yo 350.1.13.10 ity of [place] 4.2.7.2.686 [facility] [phone] [place] [address] Branch 2020-05-17 2020-05-17 Telephone JENN Grimm 1.2.842.059 [id number] Univers 00:00:00 00:00:00 Piotr MENON 350.1.13.10 i ty of [facility] 4.2.7.2.686 [place] Enrique as [phone] [address] 2020-04-24 2020-04-24 Patient Dannie [facility] 1.2.840.114 [id number] Univers 00:00:00 00:00:00 Outreach Meaghan Galicia 350.1.13.10 ity of [place].2.[place] [phone] La dical nal 231 [facility] 2020-04-23 2020-04-23 Outpatient R TADEO, [facility] [id number] 42Q-20 Univers 14:40:00 14:40:00 JESSICA [id number] ity [facility] 2020-04-23 2020-04-23 Outpatient R TADEO, [facility] [id number] Univers 14:40:00 14:40:00 [facility] 2020-04-14 2020-04-14 Outpatient R KINZAYUNIERMEERA, [facility] [id number] Univers 14:30:00 14:30:00 PARIS [facility] 2020-04-05 2020-04-07 Outpatient X JUAN RAMON [facility] [id number] Univers 17:11:25 11:20:00 ANTONINA [facility] 2020-04-05 2020-04-07 Emergency Evelin Guerin [facility] 1.2.840 .114 [id number] Univers 17:11:25 11:20:00 Antonina Yo 350.1.13.10 ity [facility] 4.2.7.2.[place] [phone] [facility] [address] [place] [address] 2020-03-13 2020-03-13 Telemedici [facility] 1.2.840.114 [id number] Univers 09:21:37 15:27:34 ne Visit Jessica Galicia 350.1.13.10 ity of [place].2.7.2.[place] [phone] La dical nal 044 [facility] 2020-03-13 2020-03-13 [facility] [id number] 42Q-20 Univers 14:20:00 14:20:00 JESSICA ity [facility] 2020-03-13 2020-03-13 Outpatient [facility] [id number] Univers 14:20:00 14:20:00 [facility] 2020-03-12 2020-03-12 Telephone Lorena [facility] 1.2.840.114 [id number] Univers 00:00:00 00:00:00 Randall PRIMARY 350.1.13.10 it y of [place] 4.2.7.2.[place] [phone] La dical [address] 2020-03-10 2020-03-10 Telephone Twila, [facility] 1.2.840.114 [id number] Univers 00:00:00 00:00:00 Attending [facility] 350.1.13.10 ity of [place] 4.2.7.2.686 Carlos Enrique as Professio [phone] La dical nal 044 [address] Office Building One 2020-03-09 2020-03-09 Transition Davon Marichuydev 1.2.840.114 [id number] Univers 00:00:00 00:00:00 of Care Martha Conte 350.1.13.10 ity of [place]2.7.2.686 [place] [phone] [facility] 403 [place] 2020-03-02 2020-03-06 Inpatient X [facility] ELDA [id number] Univers 09:03:51 16:00:00 OPHELIA ity [facility] 2020-03-02 2020-03-06 [facility] Cooper Mcneil 1.2.840.1 [id number] Univers 09:03:51 16:00:00 Encounter Chris Mclaughlin 350.1.13.10 ity of [facility]ia [facility] 4.2.7.2.[address] [place] [address] [phone] [facility] 095 [place] 2020-01-01 2020-01-01 Presiding Judge Yeni Amaya Lab Main [facility] 1.2.8 40.114 [id number] Univers 11:21:38 11:36:38 Visit Joselin Su 350.1.13 .10 ity of [place].2.[place] [phone] La dical nal [address] Building Results Test Test Test Results Result Source Description Time Comments Comments CT ABDOMEN 2021-04- Mild patchy groundglass [facility] PELVIS W 18 attenuation in the right [facility] CONTRAST 07:23:03 middle lobe, Branch possiblyrepresenting a small focus of aspiration or pneumonia. Stable bilateral adrenal nodules. Thickening of the wall of the descending colon, suggestive of colitis.Compared to the prior study, the extent of involvement is less pronounced,with primary involvement of the descending colon rather than pancolitis. RL: [id number] [facility]: [id number] Ordering physician: RUTH WATTS Indication: Diffuse abdominal pain, history of chronic pancreatitis,history of colitis COMPARISON: None TECHNIQUE: Axial images of the abdomen and pelvis are performed followingadministration of intravenous contrast material. Images were reformatted inthe coronal and sagittal plane. CT scan was performed according to ALARA(as low as reasonably achievable) policy. FINDINGS: There is mild patchy groundglass attenuation in the right middlelobe.. The liver, gallbladder, spleen and pancreas are within normallimits. The main pancreatic duct is at the upper limits of normal at 3 mm.There are stable 20 mm left adrenal and 8 mm right adrenal nodule is. Thekidneys are normal in appearance bilaterally without hydronephrosis. Noabdominal aortic aneurysm or dissection is appreciated. There is no free fluid in the pelvis. The CT appearance of the uterus andovaries is within normal limits. There is thickening of the wall of thedescending colon. There is no bowel obstruction, widespread diverticulosisor acute diverticulitis. The appendix is identified and within normallimits. ?Bone windows through the abdomen and pelvis demonstrate no osseousdestructive lesion. [facility], Radiant Results Inft User - 04/30/2021 2:24 AM CDT Ordering physician: RUTH WATTSIndication: Diffuse abdominal pain, history of chronic pancreatitis,history of colitisCOMPARISON: NoneTECHNIQUE: Axial images of the abdomen and pelvis are performed followingadministration of intravenous contrast material. Images were reformatted inthe coronal and sagittal plane. CT scan was performed according to ALARA(as low as reasonably achievable) policy.FINDINGS: There is mild patchy groundglass attenuation in the right middlelobe.. The liver, gallbladder, spleen and pancreas are within normallimits. The main pancreatic duct is at the upper limits of normal at 3 mm.There are stable 20 mm left adrenal and 8 mm right adrenal nodule is. Thekidneys are normal in appearance bilaterally without hydronephrosis. Noabdominal aortic aneurysm or dissection is appreciated.There is no free fluid in the pelvis. The CT appearance of the uterus andovaries is within normal limits. There is thickening of the wall of thedescending colon. There is no bowel obstruction, widespread diverticulosisor acute diverticulitis. The appendix is identified and within normallimits. Bone windows through the abdomen and pelvis demonstrate no osseousdestructive lesion.IMPRESSIONMild patchy groundglass attenuation in the right middle lobe, possiblyrepresenting a small focus of aspiration or pneumonia.Stable bilateral adrenal nodules.Thickening of the wall of the descending colon, suggestive of colitis.Compared to the prior study, the extent of involvement is less pronounced,with primary involvement of the descending colon rather than pancolitis.RL: [id number]: [id number] CHEST 2021-04- Impression: Mild Unive rsity of 18 cardiomegaly without acute [facility] 06:37:24 pulmonary process. RL: Yeni garcia 460 AFC: [id number] Ordering physician: RUTH WATTS Indication: Shortness of breath Comparison: None Findings: Single AP view of the chest. The cardiopericardial silhouette ismildly enlarged. The lungs are clear bilaterally. The visualized bonythorax is intact. [facility], Radiant Results Inft User - 04/30/2021 1:38 AM CDT Ordering physician: RUTH WATTSIndication: Shortness of breathComparison: NoneFindings: Single AP view of the chest. The cardiopericardial silhouette ismildly enlarged. The lungs are clear bilaterally. The visualized bonythorax is intact.IMPRESSIONImpressio n:Mild cardiomegaly without acute pulmonary process.RL: [id number]: [id number] signed by Alexsandra Suazo MD, PhD at 04/30/2021 1:37 AM TROPONIN I 2021-04-30 05:55:52 Test Item Value Reference Range Interpretation Comme nts TROPONIN I (test code = 0.004 ng/mL See_Comment [Au tomated message] The 6561247598) system which nerated this result tra nsmitted reference range : <=0.034. The reference r cayden was not used to int erpret this result as normal/abnormal . THEODORA (test code = THEODORA) Equal or Less than 0.034 ng/ml---Normal ?Note: Cardiac troponin begins to rise 3-4 hours after the onset of ischemia. Repeat in 4-6 hours if the sample was drawn within 3-4 hours of the onset of the symptom and found normal. Between 0.035 and 0.120 ng/mL--- Borderline. Questionable myocardial injury or necrosis ? ?Note: Serial measurement may be necessary to confirm or exclude the diagnosis of myocardial injury or necrosis; Clinical correlation (symptoms, EKGs, imaging studies, and others) required; Repeat in 4-6 hours if clinically indicated. ? Equal or Higher than 0.121 ng/mL---Abnormal. Myocardial Injury or Necrosis Likely ? Biotin has been reported to cause a negative bias, interpret results relative to patient's use of biotin. ? Lab Interpretation (test Normal code = 73063-8) [facility]. METABOLIC PANEL (45210)2021-04-30 05:55:07 Test Item Value Reference Range Interpretation Comments NA (test code = 135 mmol/L 135-145 8805685189) K (test code = 3.6 mmol/L 3.5-5.0 2276114498) CL (test code = 103 mmol/L 98-108 9977098802) CO2 TOTAL (test code = 27 mmol/L 23-31 0988634674) AGAP (test code = 2-16 9426402325) BUN (test code = 11 mg/dL 7-23 2128352609) GLUCOSE (test code = 80 mg/dL 70-110 1846620495) CREATININE (test code = 0.42 mg/dL 0.50-1.04 L 3802520007) TOTAL BILI (test code = 0.7 mg/dL 0.1-1.7 0984944098) CALCIUM (test code = 10.0 mg/dL 8.6-10.6 2126330077) T PROTEIN (test code = 7.4 g/dL 6.3-8.2 7121708922) ALBUMIN (test code = 4.2 g/dL 3.5-5.0 0157518393) ALK PHOS (test code = 80 U/L 34-122 7539708770) ALTv (test code = 19 U/L 5-35 1742-6) AST(SGOT) (test code = 45 U/L 13-40 H 9083399493) eGFR (test code = mL/min/1.73m2 0958932426) THEODORA (test code = THEODORA) Association of Glomerular Filtration Rate (GFR) and Staging of Kidney Disease* + --+ --+ ------+| GFR (mL/min/1.73 m2) ?| With Kidney Damage ?| ?Without Kidney Damage+ --------+ --------+ +| ?>90 ?| ?Stage one ?| ? Normal ?+ ---+ ---+ -------+| ?60-89 ?| ?Stage two ?| ? Decreased GFR ? + --+ --+ ------+| ?30-59 ?| ?Stage three ?| ? Stage three ? + --+ --+ ------+| ?15-29 ?| ?Stage four ? | ? Stage four ?+ ---+ ---+ -------+| ?<15 (or dialysis) ? ?| ?Stage five ? | ? Stage five ?+ ---+ ---+ -------+ *Each stage assumes the associated GFR level has been in effect for at least three months. ?Stages 1 to 5, with or without kidney disease, indicate chronic kidney disease. Notes: Determination of stages one and two (with eGFR >59mL/min/1.73 m2) requires estimation of kidney damage for at least three months as defined by structural or functional abnormalities of the kidney, manifested by either:Pathological abnormalities or Markers of kidney damage (including abnormalities in the composition of the blood or urine or abnormalities in imaging tests). Lab Interpretation Abnormal (test code = 06807-1) [facility]12 Test Item Value Reference Range Interpretation Comments LIPASE (test code = 4398746636) 39 U/L 0-220 Lab Interpretation (test code = Normal 46470-7) [facility] CenterCOVID[facility] (ID NOW RAPID TESTING)2021-04-30 05:36:54 Test Item Value Reference Range Interpretation Comments SARS-CoV-2 Rapid ID NOW Not Detected Not Detected (test code = 05778-9) THEODORA (test code = THEODORA) ID NOW COVID-19 Assay is an isothermal nucleic acid amplification test intended for the qualitative detection of nucleic acid from SARS-CoV-2 viral RNA in nasopharyngeal (EVENT [employer]ING [employer]N) specimens. It is used under Emergency Use Authorization (EUA) by FDA. The limit of detection (LOD) of the assay is 125 Genome Equivalents/mL. A positive result is indicative of the presence of SARS-CoV-2 RNA. ?Clinical correlation with patient history and other diagnostic information is necessary to determine patient infection status. A negative (Not Detected) result does not preclude SARS-CoV-2 infection. In patients with clinical symptoms and other tests that are consistent with SARS-CoV-2 infection, negative results should be treated as presumptive negative and a new specimen should be tested with alternative PCR molecular test. Invalid: Please collect a new specimen for repeat patient testing if clinically indicated. Lab Interpretation Normal (test code = 88899-5) [facility] CenterCB WITH [id number] 05:21:49 Test Item Value Reference Range Interpretation Comments WBC (test code = See_Comment H [Automated 3070-2) message] The system which generated this result transmit carrie reference range : 4.30 - 11.10 10*3/?L. The reference range was not used to interpret this result as normal/abnormal . RBC (test code = See_Comment [Automated 956-8) message] The system which generated this result transmit carrie reference range : 3.93 - 5.25 10*6/?L. The reference range was not used to interpret this result as normal/abnormal . HGB (test code = 12.0 g/dL 11.6-15.0 718-7) HCT (test code = 36.6 % 35.7-45.2 4544-3) MCV (test code = 89.1 fL 80.6-95.5 787-2) MCH (test code = 29.2 pg 25.9-32.8 785-6) MCHC (test code = 32.8 g/dL 31.6-35.1 786-4) RDW-SD (test code = 54.4 fL 39.0-49.9 H 84231-8) RDW-CV (test code = 16.7 % 12.0-15.5 H 788-0) PLT (test code = See_Comment [Automated 777-3) message] The system which generated this result transmit carrie reference range : 166 - 358 10*3/ ?L. The reference range was not u sed to interpret th is result as normal/abnormal . MPV (test code = 9.9 fL 9.5-12.9 31723-6) NRBC/100 WBC (test See_Comment [Automat ed code = 3314387008) message] The system which generated this result transmit carrie reference range : 0.0 - 10.0 /100 WBCs. The reference range was not used to interpret this result as normal/abnormal . NRBC x10^3 (test code <0.01 See_Comment [Auto mated = 5607138925) message] The system which generated this result transmit carrie reference range : 10*3/?L. The reference range was not used to interpret this result as normal/abnormal . GRAN MAT (NEUT) % 75.0 % (test code = 770-8) IMM GRAN % (test code 1.00 % = 5029042340) LYMPH % (test code = 15.7 % 736-9) MONO % (test code = 6.6 % 5905-5) EOS % (test code = 1.2 % 713-8) BASO % (test code = 0.5 % 706-2) GRAN MAT x10^3(ANC) 12.35 10*3/uL 1.88-7.09 H (test code = 0728206340) IMM GRAN x10^3 (test 0.16 10*3/uL 0.00-0.06 H code = 9994992019) LYMPH x10^3 (test code 2.58 10*3/uL 1.32-3.29 = 731-0) MONO x10^3 (test code 1.09 10*3/uL 0.33-0.92 H = 742-7) EOS x10^3 (test code = 0.20 10*3/uL 0.03-0.39 711-2) BASO x10^3 (test code 0.09 10*3/uL 0.01-0.07 H = 704-7) Lab Interpretation Abnormal (test code = 05042-7) [facility] METABOLIC PANEL (NA, K, CL, CO2, GLUCOSE, BUN, CREATININE, CA)2021-04-20 09:57:13 Test Item Value Reference Range Interpretation Comments NA (test code = 139 mmol/L 135-145 6776108560) K (test code = 3.9 mmol/L 3.5-5.0 6413147038) CL (test code = 107 mmol/L 98-108 4417720300) CO2 TOTAL (test code = 25 mmol/L 23-31 3143918094) AGAP (test code = 2-16 3828824856) BUN (test code = 4 mg/dL 7-23 L 5181237284) GLUCOSE (test code = 93 mg/dL 70-110 2460671091) CREATININE (test code = 0.47 mg/dL 0.50-1.04 L 5272465944) CALCIUM (test code = 10.1 mg/dL 8.6-10.6 7798051037) eGFR (test code = mL/min/1.73m2 2963702624) THEODORA (test code = THEODORA) Association of Glomerular Filtration Rate (GFR) and Staging of Kidney Disease* + --+ --+ ------+| GFR (mL/min/1.73 m2) ?| With Kidney Damage ?| ?Without Kidney Damage+ --------+ --------+ +| ?>90 ?| ?Stage one ?| ? Normal ?+ ---+ ---+ -------+| ?60-89 ?| ?Stage two ?| ? Decreased GFR ? + --+ --+ ------+| ?30-59 ?| ?Stage three ?| ? Stage three ? + --+ --+ ------+| ?15-29 ?| ?Stage four ? | ? Stage four ?+ ---+ ---+ -------+| ?<15 (or dialysis) ? ?| ?Stage five ? | ? Stage five ?+ ---+ ---+ -------+ *Each stage assumes the associated GFR level has been in effect for at least three months. ?Stages 1 to 5, with or without kidney disease, indicate chronic kidney disease. Notes: Determination of stages one and two (with eGFR >59mL/min/1.73 m2) requires estimation of kidney damage for at least three months as defined by structural or functional abnormalities of the kidney, manifested by either:Pathological abnormalities or Markers of kidney damage (including abnormalities in the composition of the blood or urine or abnormalities in imaging tests). Lab Interpretation Abnormal (test code = 51504-6) [facility]MAGN[facility]UM2021-[facility]-08 09:57:13 Test Item Value Reference Range Interpretation Comments MAGNESIUM (test code = 2759883312) 1.8 mg/dL 1.7-2.4 Lab Interpretation (test code = Normal 79788-9) [facility] 09:56:32 Test Item Value Reference Range Interpretation Comments LIPASE (test code = 4906659481) 21 U/L 0-220 Lab Interpretation (test code = Normal 59733-2) [facility] WITH [id number] 09:36:49 Test Item Value Reference Range Interpretation Comments WBC (test code = See_Comment H [Automated 7671-2) message] The sy stem which generated this result transmitted reference range : 4.30 - 11.10 10*3/?L. The reference range was not used to interpret this result as normal/abnormal . RBC (test code = See_Comment [Automated 576-8) message] The sy stem which generated this result transmitted reference range : 3.93 - 5.25 10*6/?L. The reference range was not used to interpret this result as normal/abnormal . HGB (test code = 12.7 g/dL 11.6-15.0 718-7) HCT (test code = 39.4 % 35.7-45.2 4544-3) MCV (test code = 89.3 fL 80.6-95.5 787-2) MCH (test code = 28.8 pg 25.9-32.8 785-6) MCHC (test code = 32.2 g/dL 31.6-35.1 786-4) RDW-SD (test code = 55.2 fL 39.0-49.9 H 01488-6) RDW-CV (test code = 16.8 % 12.0-15.5 H 788-0) PLT (test code = See_Comment [Automated 777-3) message] The sy stem which generated this result transmitted reference range : 166 - 358 10*3/ ?L. The reference r cayden was not used to interpret this result as normal/abnormal . MPV (test code = 11.0 fL 9.5-12.9 48421-4) NRBC/100 WBC (test See_Comment [Automat ed code = 2079977511) message] The system which generated this result transmitted reference range : 0.0 - 10.0 /100 WBCs. The refer ence range was not u sed to interpret th is result as normal/abnormal . NRBC x10^3 (test code <0.01 See_Comment [Auto mated = 9301123292) message] The s ystem which generated this result transmitted reference range : 10*3/?L. The reference range was not used to interpret this result as normal/abnormal . GRAN MAT (NEUT) % 72.1 % (test code = 770-8) IMM GRAN % (test code 0.70 % = 9957169708) LYMPH % (test code = 18.5 % 736-9) MONO % (test code = 6.9 % 5905-5) EOS % (test code = 1.2 % 713-8) BASO % (test code = 0.6 % 706-2) GRAN MAT x10^3(ANC) 9.92 10*3/uL 1.88-7.09 H (test code = 7180196833) IMM GRAN x10^3 (test 0.10 10*3/uL 0.00-0.06 H code = 2120274959) LYMPH x10^3 (test code 2.55 10*3/uL 1.32-3.29 = 731-0) MONO x10^3 (test code 0.95 10*3/uL 0.33-0.92 H = 742-7) EOS x10^3 (test code = 0.16 10*3/uL 0.03-0.39 711-2) BASO x10^3 (test code 0.08 10*3/uL 0.01-0.07 H = 704-7) Lab Interpretation Abnormal (test code = 58817-0) [facility] CenterFECAL [id number] 20:28:26 Test Item Value Reference Range Interpretation Comments Fecal Leukocytes (test code = Negative Negative 3159545170) Lab Interpretation (test code = Normal 17843-5) [facility] CenterLAB ONLY COVID [id number] 17:28:19COVID DMT InterpretationInterpretation/Recommendations: Molecular NAAT Tests for Active Infection with the SARS-CoV-2 Virus: The patient has currently tested negative for the SARS-CoV-2 virus that causes COVID-19 illness. This most likely indicates that the patient does not have an active infection with the SARS-CoV-2 virus. However, infection is not completely ruled out as the false negative rate for molecular NAAT testing using a nasopharyngeal sample can be up to 30%, mostly dependent on the timing of sample collection in relation to illness onset and any deficiencies in sampling techniques. If the patient has symptoms concerning for COVID-19 illness, a repeat NAAT test (PCR, Rapid ID Now, etc.) should be performed, at which time the SARS-CoV-2 virus - if present - may have reached a detectable viral load (usually peaking by the end of the first week of symptoms). Tests for IgM and/or IgGAntibodies to the SARS-CoV-2 Virus: If the patient develops COVID-19 illness in the future, testingfor IgM and IgG antibodies approximately 3 weeks after illness onset will likely indicate if the patient has produced antibodies to the SARS-CoV-2 virus. However, some patients may take longer to develop detectable antibodies, while some patients who were infected with SARS-CoV-2 may never develop antibodies. While antibodies to SARS-CoV-2 may provide some degree of immunity, at this time the strength and duration of the antibody response is unknown. ? ? Interpretation Result Comments:These interpretation comments are based upon all COVID-19 testing the patient has had at [facility], including molecular NAAT testing (more commonlyknown as PCR testing and Rapid ID Now testing) and antibody testing. It does not take into account any testing that a patient has had outside of the [facility] medical record. [facility] LABORATORY SERVICESCOVID MwobarmACLE-MdF-3 Rapid ID NOW (no units) ? ? Date ? Value ? 04/18/2021 ? Not Detected ? ? ? 03/07/2021 ? Not Detected ? ? ? 01/22/2021 ? Not Detected ? ? ? 10/28/2020 ? Not Detected ? ? ? 09/28/2020 ? Not Detected ? ? ? 08/03/2020 ? Not Detected ? ? ? 05/21/2020 ? Not Detected ? ?? 05/16/2020 ? Not Detected ? ? ? 04/05/2020 ? Not Detected ? ? ? 03/02/2020 ? Not Detected ? [facility] LABORATORY SERVICESUnMethodist McKinney HospitalUrine [id number] 16:27:48 Test Item Value Reference Range Interpretation Comments URINE CULTURE (test No aerobic growth (< code = 630-4) 1000 CFU/mL) [facility] CenterBasic Metabolic Panel (NA, K, CL, CO2, GLUCOSE, BUN, CREATININE, CA)2021-04-19 10:41:34 Test Item Value Reference Range Interpretation Comments NA (test code = 141 mmol/L 135-145 7276679194) K (test code = 3.9 mmol/L 3.5-5.0 9397963405) CL (test code = 109 mmol/L 98-108 H 6350758617) CO2 TOTAL (test code = 24 mmol/L 23-31 3263672317) AGAP (test code = 2-16 5166888835) BUN (test code = 8 mg/dL 7-23 5666324819) GLUCOSE (test code = 99 mg/dL 70-110 9795573026) CREATININE (test code = 0.49 mg/dL 0.50-1.04 L 3888183174) CALCIUM (test code = 10.5 mg/dL 8.6-10.6 8360312226) eGFR (test code = mL/min/1.73m2 1937171521) THEODORA (test code = THEODORA) Association of Glomerular Filtration Rate (GFR) and Staging of Kidney Disease* + --+ --+ ------+| GFR (mL/min/1.73 m2) ?| With Kidney Damage ?| ?Without Kidney Damage+ --------+ --------+ +| ?>90 ?| ?Stage one ?| ? Normal ?+ ---+ ---+ -------+| ?60-89 ?| ?Stage two ?| ? Decreased GFR ? + --+ --+ ------+| ?30-59 ?| ?Stage three ?| ? Stage three ? + --+ --+ ------+| ?15-29 ?| ?Stage four ? | ? Stage four ?+ ---+ ---+ -------+| ?<15 (or dialysis) ? ?| ?Stage five ? | ? Stage five ?+ ---+ ---+ -------+ *Each stage assumes the associated GFR level has been in effect for at least three months. ?Stages 1 to 5, with or without kidney disease, indicate chronic kidney disease. Notes: Determination of stages one and two (with eGFR >59mL/min/1.73 m2) requires estimation of kidney damage for at least three months as defined by structural or functional abnormalities of the kidney, manifested by either:Pathological abnormalities or Markers of kidney damage (including abnormalities in the composition of the blood or urine or abnormalities in imaging tests). Lab Interpretation Abnormal (test code = 38879-3) [facility] CenterMagnesium [id number] 10:23:08 Test Item Value Reference Range Interpretation Comments MAGNESIUM (test code = 6574206871) 1.9 mg/dL 1.7-2.4 Lab Interpretation (test code = Normal 81534-7) [facility] with Agbnoodvpghx4774-35-63 09:34:01 Test Item Value Reference Range Interpretation Comments WBC (test code = See_Comment H [Automated 6690-2) message] The system which generated this result transmit carrie reference range : 4.30 - 11.10 10*3/?L. The reference range was not used to interpret this result as normal/abnormal . RBC (test code = See_Comment [Automated 789-8) message] The system which generated this result transmit carrie reference range : 3.93 - 5.25 10*6/?L. The reference range was not used to interpret this result as normal/abnormal . HGB (test code = 14.4 g/dL 11.6-15.0 718-7) HCT (test code = 44.0 % 35.7-45.2 4544-3) MCV (test code = 89.4 fL 80.6-95.5 787-2) MCH (test code = 29.3 pg 25.9-32.8 785-6) MCHC (test code = 32.7 g/dL 31.6-35.1 786-4) RDW-SD (test code = 56.8 fL 39.0-49.9 H 24624-7) RDW-CV (test code = 17.5 % 12.0-15.5 H 788-0) PLT (test code = See_Comment [Automated 777-3) message] The system which generated this result transmit carrie reference range : 166 - 358 10*3/ ?L. The reference range was not u sed to interpret th is result as normal/abnormal . MPV (test code = 10.5 fL 9.5-12.9 14106-1) NRBC/100 WBC (test See_Comment [Automat ed code = 1096762479) message] The system which generated this result transmit carrie reference range : 0.0 - 10.0 /100 WBCs. The reference range was not used to interpret this result as normal/abnormal . NRBC x10^3 (test code <0.01 See_Comment [Auto mated = 4598739733) message] The system which generated this result transmit carrie reference range : 10*3/?L. The reference range was not used to interpret this result as normal/abnormal . GRAN MAT (NEUT) % 76.6 % (test code = 770-8) IMM GRAN % (test code 0.50 % = 4002846044) LYMPH % (test code = 15.7 % 736-9) MONO % (test code = 6.1 % 5905-5) EOS % (test code = 0.7 % 713-8) BASO % (test code = 0.4 % 706-2) GRAN MAT x10^3(ANC) 11.95 10*3/uL 1.88-7.09 H (test code = 9340758538) IMM GRAN x10^3 (test 0.08 10*3/uL 0.00-0.06 H code = 5957708880) LYMPH x10^3 (test code 2.46 10*3/uL 1.32-3.29 = 731-0) MONO x10^3 (test code 0.96 10*3/uL 0.33-0.92 H = 742-7) EOS x10^3 (test code = 0.11 10*3/uL 0.03-0.39 711-2) BASO x10^3 (test code 0.06 10*3/uL 0.01-0.07 = 704-7) Lab Interpretation Abnormal (test code = 68271-8) [facility] CenterPROCALCITONIN2021-06-07 06:16:05 Test Item Value Reference Range Interpretation Comments Procalcitonin (test 0.02 ng/mL <0.07 code = 2398482667) THEODORA (test code = THEODORA) INTERPRETATION OF PROCALCITONIN RESULTS IN ADULTS >= 18 YEARS OF AGE Initiation and discontinuation of antibiotics on patients with suspected or confirmed Lower Respiratory Tract Infection in Adults >= 18 years of age. + +-------- --------+ + -----+|Procalcitonin |Interpretation ?|Antibiotic ? ? |Considerations ? |ng/mL ? | ?|recommendation | ? + +-------- --------+ + -----+| <0.1 ? | Bacterial ? ? ?| Strongly ? ? ?| ? | ?| infection very | discouraged ? | Overruling: ? | ?| unlikely ? ? ? | ? | ? Clinically unstable ? ? ? + +-------- --------+ + ? High risk for adverse ? ? | <0.25 ?| Bacterial ? ? ?| Discouraged ? | ? outcome ? | ?| infection ? ? ?| ? | ? SEE IMPORTANT NOTE ?| ?| unlikely ? ? ? | ? | ? + +-------- --------+ + -----+| >=0.25 ? ? ? | Bacterial ? ? ?| Encouraged ? ?| ? | ?| infection ? ? ?| ? | ? | ?| likely ? | ? | Consider treatment failure ?+ +------- ---------+ -+ if levels does not decrease | >0.5 ? | Bacterial ? ? ?| Strongly ? ? ?| appropriately ? | ?| infection very | encouraged ? ?| ? | ?| likely ? | ? | ? + +-------- --------+ + -----+ Discontinuation of antibiotics in high-acuity patients with suspected or confirmed sepsis in Adults >= 18 years of age. + +-------- --------+ + -----+|Procalcitonin |Interpretation ?|Antibiotic ? ? |Considerations ? |ng/mL ? | ?|recommendation | ? + +-------- --------+ + -----+| <0.25 ?| Bacterial ? ? ?| Strongly ? ? ?| ? | ?| infection very | discouraged ? | Overruling: ? | ?| unlikely ? ? ? | ? | ? Clinically unstable ? ? ? + +-------- --------+ + ? High risk for adverse ? ? | <0.5 or drop | Bacterial ? ? ?| Discouraged ? | ? outcome ? | >80% from ? ?| infection ? ? ?| ? | ? SEE IMPORTANT NOTE ?| highest PCT ?| unlikely ? ? ? | ? | ? | level ?| ?| ? | ? + +-------- --------+ + -----+| >=0.5 ?| Bacterial ? ? ?| Encouraged ? ?| ? | ?| infection ? ? ?| ? | ? | ?| likely ? | ? | Consider treatment failure ?+ +------- ---------+ -+ if levels does not decrease | >1.0 ? | Bacterial ? ? ?| Strongly ? ? ?| appropriately ? | ?| infection very | encouraged ? ?| ? | ?| likely ? | ? | ? + +-------- --------+ + -----+ Percentage of drop of Procalcitonin calculation for Discontinuation of antibiotics in high-acuity patients with suspected or confirmed sepsis in Adults >= 18 years of age. ? Procalcitonin highest{}-Procalcitonin current{}Delta Procalcitonin = x100% ? Procalcitonin current {} IMPORTANT NOTE: Procalcitonin may be elevated without bacterial infection by physiologic stress related to trauma, levy, chronic dialysis, metastatic cancer, surgery in the past seven days, malaria, some fungal infections, and some forms of vasculitis. The interpretation algorithm may not apply to patients with immunosuppression (equivalent of >10 mg of prednisone daily), HIV with CD4 cell count < 350 cells/mm3, active malignancy on systemic chemotherapy, solid organ transplant or hematopoietic stem cell transplantation, or hospital acquired pneumonia. Additionally, some clinical trials of procalcitonin have excluded patients with shock requiring vasopressor use, acute respiratory failure requiring mechanical ventilation, or those with known lung abscess/empyema. For further information please refer to:[email or web address] Lab Interpretation Normal (test code = 42718-5) [facility] CenterPhosphorus [id number] 22:28:07 Test Item Value Reference Range Interpretation Comments PHOSPHORUS (test code = 7969107953) 2.2 mg/dL 2.5-5.0 L Lab Interpretation (test code = Abnormal 88568-9) [facility] CenterLactic Acid Whole [id number] 22:19:30 Test Item Value Reference Range Interpretation Comments LACTIC ACID (test code = 1.43 mmol/L 0.50-2.20 5027134981) Lab Interpretation (test code = Normal 34560-8) [facility] CenterCT ABDOMEN PELVIS W [id number] 20:19:24 1. ?No acute intra-abdominal abnormality. 2. ?Similar appearance of prominent gastric folds at the gastricantrum/pylorus as well as prominent colonic thickening at the distaldescending and sigmoid colon. 3. ?Stable appearance of indeterminate adrenal nodules and groundglassopacities at the bilateral lungs. Preliminary Report Dictated by Resident: Javi Awad ?MD Rebecca., have reviewed this study and agree with theabove report.EXAM: CT ABDOMEN PELVIS W CONTRAST 04/18/2021 11:47 AM HISTORY: 45 years- old Female with Nausea/vomiting Abdominal pain, acute,nonlocalized . COMPARISON: CT abdomen pelvis with IV contrast 03/07/2021, 01/22/2021. TECHNIQUE AND FINDINGS: Contiguous axial imagingfrom the level of the lungbases through the pubic symphysis was performed after the administration ofintravenous nonionic iodinated contrast. Abdomen was scanned in venousphase. Corresponding coronal an d sagittal MPR reconstructions wereobtained. ?Auto mA and/or iterative reconstruction were used to reduceradiation dose. FINDINGS: LOWER THORAX: Redemonstration of nonspecific groundglass attenuation in thebilateral lung bases. Calcified granuloma seen in the right upper lobe.Trace streaky bibasilar atelectasis. No pleural or pericardial effusionsare visualized. LIVER: The liver has normal parenchyma and contour. No focal hepatic lesionis seen within the limits of a single phase CT. The portal veins arepatent. GALLBLADDER AND BILIARY TREE: The gallbladder is unremarkable. There is nointra or extrahepatic biliary ductal dilation. SPLEEN: The spleen enhances normally. PANCREAS: The pancreas enhances normally without ductal dilation. ADRENAL GLANDS: Redemonstration of 1.5 cm right and 2.2 cm leftindeterminate attenuation adrenal nodules and appear largely similar toprior. KIDNEYS: The kidneys enhance normally. No nephrolithiasis or hydronephrosisis seen. No masses are seen within the limits of asingle phase CT. PERITONEUM AND RETROPERITONEUM: No free air or free fluid. ABDOMINAL WALL: Unremarkable. LYMPH NODES: Slight improvement in nodular densities scattered throughoutthe abdomen, for example 1.3 cm structure at the tail of the pancreas,previously 1.5 cm (2:46) as well as 1.1 cm mesenteric structure, previously1.4 cm (2:59). GI TRACT: Largely similar appearance of prominent gastric foldsandcircumferential thickening of the distal stomach as well as persistentthickening of a moderate length of sigmoid and descending colon. Tracediverticulosis of the distal sigmoid colon is seen withoutevidence ofdiverticulitis. The appendix is unremarkable.. PELVIS/BLADDER: The urinary bladder is unremarkable. The uterus andbilateral ovaries are unremarkable. VESSELS: Unremarkable. BONES AND SOFT TISSUES: No suspicious lytic or sclerotic bony lesions.Intramedullary nail excision is partially seen at the left femur. [facility], Radiant Results Inft User - 04/18/2021 3:20 PM CDT EXAM: CT ABDOMEN PELVIS W CONTRAST 04/18/2021 11:47 AMHISTORY: 45 years-old Female with Nausea/vomiting Abdominal pain, acute,nonlocalized .COMPARISON: CT abdomen pelvis with IV contrast 03/07/2021, 01/22/2021.TECHNIQUE AND FINDINGS: Contiguous axial imaging from the level of the lungbases through the pubic symphysis was performed after the administration ofintravenous nonionic iodinated contrast. Abdomen was scanned in venousphase. Corresponding coronal and sagittal MPR reconstructions wereobtained. Auto mA and/or iterative reconstruction were used to reduceradiation dose.FINDINGS:LOWER THORAX: Redemonstration of nonspecific groundglass attenuation in thebilateral lung bases. Calcified granuloma seen in the right upper lobe.Trace streaky bibasilar atelectasis. No pleural or pericardial effusionsare visualized. LIVER: The liver has normal parenchyma and contour. No focal hepatic lesionis seen within the limits of a single phase CT. The portal veins arepatent.GALLBLADDER AND BILIARY TREE: The gallbladder is unremarkable. There is nointra or extrahepatic biliary ductal dilation.SPLEEN: The spleen enhances normally. PANCREAS: The pancreas enhances normally without ductal dilation.ADRENAL GLANDS: Redemonstration of 1.5 cm right and 2.2 cm leftindeterminate attenuation adrenal nodules and appear largely similar toprior.KIDNEYS: The kidneys enhance normally. No nephrolithiasis or hydronephrosisis seen. No masses are seen within the limits of a single phase CT. PERITONEUM AND RETROPERITONEUM: No free air or free fluid.ABDOMINAL WALL: Unremarkable.LYMPH NODES: Slight improvement in nodular densities scattered throughoutthe abdomen, for example 1.3 cm structure at the tail of the pancreas,previously 1.5 cm (2:46) as well as 1.1 cm mesenteric structure, previously1.4 cm (2:59).GI TRACT: Largely similar appearance of prominent gastric folds andcircumferential thickening of the distal stomach as well as persistentthickening of a moderate length of sigmoid and descending colon. Tracediverticulosis of the distal sigmoid colon is seen without evidence ofdiverticulitis. The appendix is unremarkable..PELVIS/BLADDER: The urinary bladder is unremarkable. The uterus andbilateral ovaries are unremarkable.VESSELS: Unremarkable.BONES AND SOFT TISSUES: No suspicious lytic or sclerotic bony lesions.Intramedullary nail excision is partially seen at the left femur.IMPRESSION1. No acute intra-abdominal abnormality.2. Similar appearance of prominent gastric folds at the gastricantrum/pylorus as well as prominent colonic thickening at the distaldescending and sigmoid colon.3. Stable appearance of indeterminate adrenal nodules and groundglassopacities at the bilateral lungs.Preliminary Report Dictated by Resident: Javi Karimi MD., have reviewed thisstudy and agree with theabove report. [facility] CenterETHANOL2021-06-06 18:13:26 Test Item Value Reference Range Interpretation Comments ALCOHOL (test code = <10 mg/dL 5024445569) THEODORA (test code = THEODORA) <10 [id number] Toxic>100 Depression of MANAGER PUBLISHING>400 Fatalities Reported [facility] CenterDRUG SCREEN PANEL 2 [id number] 17:54:21 Test Item Value Reference Range Interpretation Comments AMPHET (test code = Negative Negative 8082552098) KOTA U (test code = Negative Negative 4152029503) BENZO U (test code = Presumptive Positive Negative A 1889020897) Cocaine Metabolite (test Negative Negative code = 5236886732) METHADONE (test code = Negative Negative 4916726085) OPIATES (test code = Presumptive Positive Negative A 5387913672) PCP (test code = Negative Negative 8117672878) THC (test code = Presumptive Positive Negative A 0126762384) THEODORA (test code = THEODORA) Urine Drug Cutoff Ranges Cocaine: ? 150 ng/mLBenzodiazepines: ? ? 200 ng/mLMethadone: ? 300 ng/mLAmphetamine: ? 1,000 ng/mLOpiates: ? 300 ng/mLCannabinoids: ?50 ng/mLPhencyclidine: ? ? ? 25 ng/mLBarbiturates: ?200 ng/mL The results are to be used only for medical (i.e., treatment) purposes. Unconfirmed screening results must not be used for non-medical purposes (e.g., employment testing, legal testing). Lab Interpretation (test Abnormal code = 73146-9) [facility] CenterLactic Acid Whole [id number] 17:37:56 Test Item Value Reference Range Interpretation Comments LACTIC ACID (test code = 3.24 mmol/L 0.50-2.20 H 3102057856) Lab Interpretation (test code = Abnormal 65355-6) [facility] CenterUrinalysis2021-06-06 17:09:41 Test Item Value Reference Range Interpretation Comments APPEARANCE (test code = Hazy Clear A 1605339944) COLOR (test code = Yellow Yellow 8623073821) PH (test code = 4.8-8.0 A 8131629906) SP GRAVITY (test code = 1.003-1.030 3273668662) GLU U QUAL (test code = 50 mg/dL Normal A 5920781451) BLOOD (test code = Negative Negative 3912767653) KETONES (test code = 5 mg/dL Negative A 1489657696) PROTEIN (test code = 30 mg/dL Negative A 2887-8) UROBILIN (test code = Normal Normal 8835011004) BILIRUBIN (test code = Negative Negative 3260596355) NITRITE (test code = Negative Negative 6083695679) LEUK BIRDIE (test code = Negative Negative 7119812263) RBC/HPF (test code = See_Comment H [Autom ated message] 8678038064) The system [employer] generated this result transmitted ref erence range: 0 - 3 HP F. The reference range was not used to int erpret this result as normal/abnormal . WBC/HPF (test code = See_Comment H [Autom ated message] 1535308637) The system [employer] generated this result transmitted ref erence range: 0 - 5 HP F. The reference range was not used to int erpret this result as normal/abnormal . BACTERIA (test code = Many Negative A 0154275269) MUCOUS (test code = Slight Negative LPF A 5084619546) SQ EPITH (test code = HPF 5756353955) Lab Interpretation (test Abnormal code = 08977-9) [facility] CenterCOVID-19 (ID NOW RAPID TESTING)2021-04-18 16:52:35 Test Item Value Reference Range Interpretation Comments SARS-CoV-2 Rapid ID NOW Not Detected Not Detected (test code = 97415-8) THEODORA (test code = THEODORA) ID NOW COVID-19 Assay is an isothermal nucleic acid amplification test intended for the qualitative detection of nucleic acid from SARS-CoV-2 viral RNA in nasopharyngeal (EVENT [employer]ANNING [employer]N) specimens. It is used under Emergency Use Authorization (EUA) by FDA. The limit of detection (LOD) of the assay is 125 Genome Equivalents/mL. A positive result is indicative of the presence of SARS-CoV-2 RNA. ?Clinical correlation with patient history and other diagnostic information is necessary to determine patient infection status. A negative (Not Detected) result does not preclude SARS-CoV-2 infection. In patients with clinical symptoms and other tests that are consistent with SARS-CoV-2 infection, negative results should be treated as presumptive negative and a new specimen should be tested with alternative PCR molecular test. Invalid: Please collect a new specimen for repeat patient testing if clinically indicated. Lab Interpretation Normal (test code = 21270-5) [facility] CenterPOCT [id number] 16:45:00 Test Item Value Reference Range Interpretation Comments POCT PREG (test code = 1605) negative On board controls acceptable with present C Line (test code = 3574) POCT PREG LOT # (test code = 3575) [id number] POCT PREG TEST DATE (test 10/12/2022 code = 3576) Lab Interpretation (test code = Normal 73819-7) [facility] with [id number] 16:36:18 Test Item Value Reference Range Interpretation Comments WBC (test code = See_Comment H [Automated 6690-2) message] The system which generated this result transmit carrie reference range : 4.30 - 11.10 10*3/?L. The reference range was not used to interpret this result as normal/abnormal . RBC (test code = See_Comment [Automated 789-8) message] The system which generated this result transmit carrie reference range : 3.93 - 5.25 10*6/?L. The reference range was not used to interpret this result as normal/abnormal . HGB (test code = 14.4 g/dL 11.6-15.0 718-7) HCT (test code = 43.6 % 35.7-45.2 4544-3) MCV (test code = 87.9 fL 80.6-95.5 787-2) MCH (test code = 29.0 pg 25.9-32.8 785-6) MCHC (test code = 33.0 g/dL 31.6-35.1 786-4) RDW-SD (test code = 53.9 fL 39.0-49.9 H 66492-7) RDW-CV (test code = 16.7 % 12.0-15.5 H 788-0) PLT (test code = See_Comment [Automated 777-3) message] The system which generated this result transmit carrie reference range : 166 - 358 10*3/ ?L. The reference range was not u sed to interpret th is result as normal/abnormal . MPV (test code = 10.7 fL 9.5-12.9 20947-4) NRBC/100 WBC (test See_Comment [Automat ed code = 8551457195) message] The system which generated this result transmit carrie reference range : 0.0 - 10.0 /100 WBCs. The reference range was not used to interpret this result as normal/abnormal . NRBC x10^3 (test code <0.01 See_Comment [Auto mated = 6830506038) message] The system which generated this result transmit carrie reference range : 10*3/?L. The reference range was not used to interpret this result as normal/abnormal . GRAN MAT (NEUT) % 91.6 % (test code = 770-8) IMM GRAN % (test code 0.70 % = 9021293132) LYMPH % (test code = 4.0 % 736-9) MONO % (test code = 3.3 % 5905-5) EOS % (test code = 0.0 % 713-8) BASO % (test code = 0.4 % 706-2) GRAN MAT x10^3(ANC) 22.53 10*3/uL 1.88-7.09 H (test code = 8369920886) IMM GRAN x10^3 (test 0.16 10*3/uL 0.00-0.06 H code = 1636765975) LYMPH x10^3 (test code 0.99 10*3/uL 1.32-3.29 L = 731-0) MONO x10^3 (test code 0.80 10*3/uL 0.33-0.92 = 742-7) EOS x10^3 (test code = <0.03 0.03-0.39 L 711-2) BASO x10^3 (test code 0.09 10*3/uL 0.01-0.07 H = 704-7) Lab Interpretation Abnormal (test code = 75246-3) [facility]. METABOLIC PANEL (48902)2021-04-18 16:14:51 Test Item Value Reference Range Interpretation Comments NA (test code = 140 mmol/L 135-145 8344614159) K (test code = 3.2 mmol/L 3.5-5.0 L 8606022255) CL (test code = 105 mmol/L 98-108 2463048363) CO2 TOTAL (test code = 23 mmol/L 23-31 7996809572) AGAP (test code = 2-16 9043452836) BUN (test code = 17 mg/dL 7-23 1440309096) GLUCOSE (test code = 178 mg/dL 70-110 H 1828811837) CREATININE (test code = 0.60 mg/dL 0.50-1.04 8608008513) TOTAL BILI (test code = 0.9 mg/dL 0.1-1.1 9159593774) CALCIUM (test code = 10.7 mg/dL 8.6-10.6 H 7636073869) T PROTEIN (test code = 8.3 g/dL 6.3-8.2 H 0088922392) ALBUMIN (test code = 4.8 g/dL 3.5-5.0 4945873817) ALK PHOS (test code = 129 U/L 34-122 H 8541834108) ALTv (test code = 23 U/L 5-35 1742-6) AST(SGOT) (test code = 36 U/L 13-40 6274121484) eGFR (test code = mL/min/1.73m2 2186107551) THEODORA (test code = THEODORA) Association of Glomerular Filtration Rate (GFR) and Staging of Kidney Disease* + --+ --+ ------+| GFR (mL/min/1.73 m2) ?| With Kidney Damage ?| ?Without Kidney Damage+ --------+ --------+ +| ?>90 ?| ?Stage one ?| ? Normal ?+ ---+ ---+ -------+| ?60-89 ?| ?Stage two ?| ? Decreased GFR ? + --+ --+ ------+| ?30-59 ?| ?Stage three ?| ? Stage three ? + --+ --+ ------+| ?15-29 ?| ?Stage four ? | ? Stage four ?+ ---+ ---+ -------+| ?<15 (or dialysis) ? ?| ?Stage five ? | ? Stage five ?+ ---+ ---+ -------+ *Each stage assumes the associated GFR level has been in effect for at least three months. ?Stages 1 to 5, with or without kidney disease, indicate chronic kidney disease. Notes: Determination of stages one and two (with eGFR >59mL/min/1.73 m2) requires estimation of kidney damage for at least three months as defined by structural or functional abnormalities of the kidney, manifested by either:Pathological abnormalities or Markers of kidney damage (including abnormalities in the composition of the blood or urine or abnormalities in imaging tests). Lab Interpretation Abnormal (test code = 05428-2) [facility] CenterLIPASE2021-06-06 16:14:31 Test Item Value Reference Range Interpretation Comments LIPASE (test code = 5051167259) 33 U/L 0-220 Lab Interpretation (test code = Normal 75820-2) [facility] WITH [id number] 09:40:02 Test Item Value Reference Range Interpretation Comments WBC (test code = See_Comment [Automated 6690-2) message] The sy stem which generated this result transmitted reference range : 4.30 - 11.10 10*3/?L. The reference range was not used to interpret this result as normal/abnormal . RBC (test code = See_Comment [Automated 789-8) message] The sy stem which generated this result transmitted reference range : 3.93 - 5.25 10*6/?L. The reference range was not used to interpret this result as normal/abnormal . HGB (test code = 11.3 g/dL 11.6-15.0 L 718-7) HCT (test code = 35.4 % 35.7-45.2 L 4544-3) MCV (test code = 89.6 fL 80.6-95.5 787-2) MCH (test code = 28.6 pg 25.9-32.8 785-6) MCHC (test code = 31.9 g/dL 31.6-35.1 786-4) RDW-SD (test code = 50.4 fL 39.0-49.9 H 11710-9) RDW-CV (test code = 15.2 % 12.0-15.5 788-0) PLT (test code = See_Comment [Automated 777-3) message] The sy stem which generated this result transmitted reference range : 166 - 358 10*3/ ?L. The reference r cayden was not used to interpret this result as normal/abnormal . MPV (test code = 10.2 fL 9.5-12.9 90296-5) NRBC/100 WBC (test See_Comment [Automat ed code = 5620382519) message] The system which generated this result transmitted reference range : 0.0 - 10.0 /100 WBCs. The refer ence range was not u sed to interpret th is result as normal/abnormal . NRBC x10^3 (test code <0.01 See_Comment [Auto mated = 9661518289) message] The s ystem which generated this result transmitted reference range : 10*3/?L. The reference range was not used to interpret this result as normal/abnormal . GRAN MAT (NEUT) % 76.3 % (test code = 770-8) IMM GRAN % (test code 0.70 % = 4342740513) LYMPH % (test code = 14.3 % 736-9) MONO % (test code = 6.6 % 5905-5) EOS % (test code = 1.6 % 713-8) BASO % (test code = 0.5 % 706-2) GRAN MAT x10^3(ANC) 7.04 10*3/uL 1.88-7.09 (test code = 0473628807) IMM GRAN x10^3 (test 0.06 10*3/uL 0.00-0.06 code = 6460452468) LYMPH x10^3 (test code 1.32 10*3/uL 1.32-3.29 = 731-0) MONO x10^3 (test code 0.61 10*3/uL 0.33-0.92 = 742-7) EOS x10^3 (test code = 0.15 10*3/uL 0.03-0.39 711-2) BASO x10^3 (test code 0.05 10*3/uL 0.01-0.07 = 704-7) Lab Interpretation Abnormal (test code = 19076-1) [facility] Metabolic Panel (NA, K, CL, CO2, GLUCOSE, BUN, CREATININE, CA)2021-03-08 11:47:33 Test Item Value Reference Range Interpretation Comments NA (test code = 138 mmol/L 135-145 4573309753) K (test code = 3.6 mmol/L 3.5-5.0 3954204985) CL (test code = 109 mmol/L 98-108 H 5657312480) CO2 TOTAL (test code = 22 mmol/L 23-31 L 7047394067) AGAP (test code = 2-16 2433268653) BUN (test code = 7 mg/dL 7-23 1474839035) GLUCOSE (test code = 96 mg/dL 70-110 9297301657) CREATININE (test code = 0.44 mg/dL 0.50-1.04 L 4382445378) CALCIUM (test code = 9.2 mg/dL 8.6-10.6 3470521226) eGFR (test code = mL/min/1.73m2 6929551498) THEODORA (test code = THEODORA) Association of Glomerular Filtration Rate (GFR) and Staging of Kidney Disease* + --+ --+ ------+| GFR (mL/min/1.73 m2) ?| With Kidney Damage ?| ?Without Kidney Damage+ --------+ --------+ +| ?>90 ?| ?Stage one ?| ? Normal ?+ ---+ ---+ -------+| ?60-89 ?| ?Stage two ?| ? Decreased GFR ? + --+ --+ ------+| ?30-59 ?| ?Stage three ?| ? Stage three ? + --+ --+ ------+| ?15-29 ?| ?Stage four ? | ? Stage four ?+ ---+ ---+ -------+| ?<15 (or dialysis) ? ?| ?Stage five ? | ? Stage five ?+ ---+ ---+ -------+ *Each stage assumes the associated GFR level has been in effect for at least three months. ?Stages 1 to 5, with or without kidney disease, indicate chronic kidney disease. Notes: Determination of stages one and two (with eGFR >59mL/min/1.73 m2) requires estimation of kidney damage for at least three months as defined by structural or functional abnormalities of the kidney, manifested by either:Pathological abnormalities or Markers of kidney damage (including abnormalities in the composition of the blood or urine or abnormalities in imaging tests). Lab Interpretation Abnormal (test code = 64932-3) [facility] with [id number] 10:40:46 Test Item Value Reference Range Interpretation Comments WBC (test code = See_Comment H [Automated 8640-2) message] The system which generated this result transmit carrie reference range : 4.30 - 11.10 10*3/?L. The reference range was not used to interpret this result as normal/abnormal . RBC (test code = See_Comment [Automated 809-8) message] The system which generated this result transmit carrie reference range : 3.93 - 5.25 10*6/?L. The reference range was not used to interpret this result as normal/abnormal . HGB (test code = 11.9 g/dL 11.6-15.0 718-7) HCT (test code = 35.8 % 35.7-45.2 4544-3) MCV (test code = 88.4 fL 80.6-95.5 787-2) MCH (test code = 29.4 pg 25.9-32.8 785-6) MCHC (test code = 33.2 g/dL 31.6-35.1 786-4) RDW-SD (test code = 51.5 fL 39.0-49.9 H 29472-3) RDW-CV (test code = 15.9 % 12.0-15.5 H 788-0) PLT (test code = See_Comment [Automated 777-3) message] The system which generated this result transmit carrie reference range : 166 - 358 10*3/ ?L. The reference range was not u sed to interpret th is result as normal/abnormal . MPV (test code = 10.5 fL 9.5-12.9 30796-6) NRBC/100 WBC (test See_Comment [Automat ed code = 6059075565) message] The system which generated this result transmit carrie reference range : 0.0 - 10.0 /100 WBCs. The reference range was not used to interpret this result as normal/abnormal . NRBC x10^3 (test code <0.01 See_Comment [Auto mated = 9696593268) message] The system which generated this result transmit carrie reference range : 10*3/?L. The reference range was not used to interpret this result as normal/abnormal . GRAN MAT (NEUT) % 83.9 % (test code = 770-8) IMM GRAN % (test code 0.50 % = 7264493496) LYMPH % (test code = 8.9 % 736-9) MONO % (test code = 6.1 % 5905-5) EOS % (test code = 0.3 % 713-8) BASO % (test code = 0.3 % 706-2) GRAN MAT x10^3(ANC) 14.15 10*3/uL 1.88-7.09 H (test code = 8358282281) IMM GRAN x10^3 (test 0.08 10*3/uL 0.00-0.06 H code = 4011704069) LYMPH x10^3 (test code 1.50 10*3/uL 1.32-3.29 = 731-0) MONO x10^3 (test code 1.03 10*3/uL 0.33-0.92 H = 742-7) EOS x10^3 (test code = 0.05 10*3/uL 0.03-0.39 711-2) BASO x10^3 (test code 0.05 10*3/uL 0.01-0.07 = 704-7) Lab Interpretation Abnormal (test code = 25076-8) [facility] CenterL[facility] Whole [id number] 10:04:06 Test Item Value Reference Range Interpretation Comments LACTIC ACID (test code = 0.84 mmol/L 0.50-2.20 1350495436) Lab Interpretation (test code = Normal 24889-7) [facility] CenterLactic Acid Whole [id number] 22:58:14 Test Item Value Reference Range Interpretation Comments LACTIC ACID (test code = 3.09 mmol/L 0.50-2.20 H 6684855757) Lab Interpretation (test code = Abnormal 55828-6) [facility] CenterPREGNANCY TEST, [id number] 19:53:09 Test Item Value Reference Range Interpretation Comments PREG URINE (test code Negative = 7785812576) THEODORA (test code = THEODORA) Less than 20 IU/L. ?If low titer or ectopic is suspected, resubmit specimen in 48-72 hours. [facility] CenterUR[facility] (IM[facility]OASSAY) - 4 ER PANEL 2021-03-07 19:14:30 Test Item Value Reference Range Interpretation Comments AMPHET (test code = Negative Negative 4013172088) Cocaine Metabolite (test Negative Negative code = 8374060798) OPIATES (test code = Presumptive Positive Negative A 6478269930) THC (test code = Presumptive Positive Negative A 1725102540) THEODORA (test code = THEODORA) Urine Drug Cutoff Ranges Amphetamine: ? 1,000 ng/mLCocaine: ? 150 ng/mLOpiates: ? 300 ng/mLCannabinoids: ?50 ng/mL The results are to be used only for medical (i.e., treatment) purposes. Unconfirmed screening results must not be used for non-medical purposes (e.g., employment testing, legal testing). Lab Interpretation (test Abnormal code = 91303-3) [facility]CT [facility] W [id number] 18:15:36 Wall thickening of the distal descending colon and sigmoid colon suspiciousfor infectious or inflammatory colitis. Scattered colonic diverticulosis. Redemonstration of bilateral adrenal nodules. RL: [id number] AFC: [id number] End of report Ordering physician:COOPER MCNEIL CLINICAL HISTORY: Abdominal abscess/infection suspected Concern fornecrotizingpancreatitis TECHNIQUE: Contrast enhanced CT images were obtained through the abdomenand pelvis withIV contrast. ?Coronal and sagittal reformats were alsoobtained. ALARA (As Low As Reasonably Achievable) ?principles was usedduring this examination. COMPARISON: ?01/22/2021 FINDINGS: The lung bases are clear bilaterally. ? The liver, spleen, gallbladder, pancreas, and kidneys are unremarkable.Redemonstration of bilateral adrenal nodules. No evidence of obstruction. There is wall thickening of the distaldescending colon and sigmoid colon. Scattered colonic diverticuli.Unremarkable appendix. No free fluid or adenopathy is demonstrated in the abdomen or pelvis. Noevidence of free air. The urinary bladder is unremarkable. The uterus is unremarkable. The aortoiliac vessels are normal caliber. Minimal atheroscleroticcalcifications. No acute osseous abnormality. Postsurgical changes of the left femur. [facility], Radiant Results Inft User - 03/07/2021 1:16 PM CDTOrdering physician:COOPER MCNEILCLINICAL HISTORY: Abdominal abscess/infection suspected Concern fornecrotizing pancreatitisTECHNIQUE: Contrast enhanced CT images were obtained through the abdomenand pelvis with IV contrast. Coronal and sagittal reformats were alsoobtained. ALARA (As Low As Reasonably Achievable) principles was usedduring this examination.COMPARISON: 01/22/2021FINDINGS:The lung bases are clear bilaterally. The liver, spleen, gallbladder, pancreas, and kidneys are unremarkable.Redemonstration of bilateral adrenal nodules.No evidence of obstruction. There is wall thickening of the distaldescending colon and sigmoid colon. Scattered colonic diverticuli.Unremarkable appendix.No free fluid or adenopathy is demonstrated in the abdomen or pelvis. Noevidence of free air.The urinary bladder is unremarkable. The uterus is unremarkable.The aortoiliac vessels are normal caliber. Minimal atheroscleroticcalcifications.No acute osseous abnormality. Postsurgical changes of the left femur.IMPRESSIONWall thickening of the distal descending colon and sigmoid colon suspiciousfor infectious or inflammatory colitis.Scattered colonic diverticu losis.Redemonstration of bilateral adrenal nodules.RL: [id number]: [id number] End of report [facility] Acid Whole [id number] 17:41:23 Test Item Value Reference Range Interpretation Comments LACTIC ACID (test code = 3.59 mmol/L 0.50-2.20 H 9752055444) Lab Interpretation (test code = Abnormal 61808-9) [facility] CenterCB with [id number] 17:32:40 Test Item Value Reference Range Interpretation Comments WBC (test code = See_Comment H [Automated 7790-2) message] The system which generated this result transmit carrie reference range : 4.30 - 11.10 10*3/?L. The reference range was not used to interpret this result as normal/abnormal . RBC (test code = See_Comment [Automated 395-8) message] The system which generated this result transmit carrie reference range : 3.93 - 5.25 10*6/?L. The reference range was not used to interpret this result as normal/abnormal . HGB (test code = 14.8 g/dL 11.6-15.0 718-7) HCT (test code = 44.7 % 35.7-45.2 4544-3) MCV (test code = 87.1 fL 80.6-95.5 787-2) MCH (test code = 28.8 pg 25.9-32.8 785-6) MCHC (test code = 33.1 g/dL 31.6-35.1 786-4) RDW-SD (test code = 49.1 fL 39.0-49.9 29170-9) RDW-CV (test code = 15.3 % 12.0-15.5 788-0) PLT (test code = See_Comment H [Automated 777-3) message] The system which generated this result transmit carrie reference range : 166 - 358 10*3/ ?L. The reference range was not u sed to interpret th is result as normal/abnormal . MPV (test code = 9.7 fL 9.5-12.9 83007-0) NRBC/100 WBC (test See_Comment [Automat ed code = 6343026614) message] The system which generated this result transmit carrie reference range : 0.0 - 10.0 /100 WBCs. The reference range was not used to interpret this result as normal/abnormal . NRBC x10^3 (test code <0.01 See_Comment [Auto mated = 7673444877) message] The system which generated this result transmit carrie reference range : 10*3/?L. The reference range was not used to interpret this result as normal/abnormal . GRAN MAT (NEUT) % 93.1 % (test code = 770-8) IMM GRAN % (test code 0.90 % = 0167833212) LYMPH % (test code = 2.9 % 736-9) MONO % (test code = 2.7 % 5905-5) EOS % (test code = 0.0 % 713-8) BASO % (test code = 0.4 % 706-2) GRAN MAT x10^3(ANC) 25.17 10*3/uL 1.88-7.09 H (test code = 7671703910) IMM GRAN x10^3 (test 0.23 10*3/uL 0.00-0.06 H code = 5219686600) LYMPH x10^3 (test code 0.77 10*3/uL 1.32-3.29 L = 731-0) MONO x10^3 (test code 0.73 10*3/uL 0.33-0.92 = 742-7) EOS x10^3 (test code = <0.03 0.03-0.39 L 711-2) BASO x10^3 (test code 0.10 10*3/uL 0.01-0.07 H = 704-7) Lab Interpretation Abnormal (test code = 81694-8) [facility] CenterETHANOL2021-04-25 17:24:12 Test Item Value Reference Range Interpretation Comments ALCOHOL (test code = <10 mg/dL 6371796135) THEODORA (test code = THEODORA) <10 Aczmwpaq04-482 Toxic>100 Depression of MANAGER PUBLISHING>400 Fatalities Reported [facility] (NA, K, CL, CO2, GLUCOSE, BUN, CREATININE, CA)2021-03-07 17:18:15 Test Item Value Reference Range Interpretation Comments NA (test code = 141 mmol/L 135-145 7528733487) K (test code = 4.0 mmol/L 3.5-5.0 1239277447) CL (test code = 106 mmol/L 98-108 3218817413) CO2 TOTAL (test code = 19 mmol/L 23-31 L 1451344062) AGAP (test code = 2-16 2838033364) BUN (test code = 16 mg/dL 7-23 7483338139) GLUCOSE (test code = 156 mg/dL 70-110 H 9771755839) CREATININE (test code = 0.47 mg/dL 0.50-1.04 L 2456836211) CALCIUM (test code = 10.7 mg/dL 8.6-10.6 H 4867050572) eGFR (test code = mL/min/1.73m2 1876761218) THEODORA (test code = THEODORA) Association of Glomerular Filtration Rate (GFR) and Staging of Kidney Disease* + --+ --+ ------+| GFR (mL/min/1.73 m2) ?| With Kidney Damage ?| ?Without Kidney Damage+ --------+ --------+ +| ?>90 ?| ?Stage one ?| ? Normal ?+ ---+ ---+ -------+| ?60-89 ?| ?Stage two ?| ? Decreased GFR ? + --+ --+ ------+| ?30-59 ?| ?Stage three ?| ? Stage three ? + --+ --+ ------+| ?15-29 ?| ?Stage four ? | ? Stage four ?+ ---+ ---+ -------+| ?<15 (or dialysis) ? ?| ?Stage five ? | ? Stage five ?+ ---+ ---+ -------+ *Each stage assumes the associated GFR level has been in effect for at least three months. ?Stages 1 to 5, with or without kidney disease, indicate chronic kidney disease. Notes: Determination of stages one and two (with eGFR >59mL/min/1.73 m2) requires estimation of kidney damage for at least three months as defined by structural or functional abnormalities of the kidney, manifested by either:Pathological abnormalities or Markers of kidney damage (including abnormalities in the composition of the blood or urine or abnormalities in imaging tests). Lab Interpretation Abnormal (test code = 78624-9) [facility] CenterHepatic Function Panel (ALB, T.PRO, BILI T, BU/BC, ALT, AST, ALK PHOS)2021-03-07 17:18:15 Test Item Value Reference Range Interpretation Comments TOTAL BILI (test code = 2683478932) 0.9 mg/dL 0.1-1.1 BILI UNCON (test code = 4102776491) 0.9 mg/dL 0.1-1.1 BILI CONJ (test code = 3360431751) 0.0 mg/dL 0.0-0.3 T PROTEIN (test code = 9719470748) 7.8 g/dL 6.3-8.2 ALBUMIN (test code = 2892960677) 4.8 g/dL 3.5-5.0 ALK PHOS (test code = 9714814834) 180 U/L 34-122 H ALTv (test code = 1742-6) 15 U/L 5-35 AST(SGOT) (test code = 6091504589) 29 U/L 13-40 Lab Interpretation (test code = Abnormal 38133-5) [facility] CenterLipase [id number] 17:18:15 Test Item Value Reference Range Interpretation Comments LIPASE (test code = 5151395117) 41 U/L 0-220 Lab Interpretation (test code = Normal 40709-6) [facility] CenterCOVID-19 (ID NOW RAPID TESTING)2021-03-07 17:01:56 Test Item Value Reference Range Interpretation Comments SARS-CoV-2 Rapid ID NOW Not Detected Not Detected (test code = 57587-8) THEODORA (test code = THEODORA) ID NOW COVID-19 Assay is an isothermal nucleic acid amplification test intended for the qualitative detection of nucleic acid from SARS-CoV-2 viral RNA in nasopharyngeal (EVENT PLANNING INTERN) specimens. It is used under Emergency Use Authorization (EUA) by FDA. The limit of detection (LOD) of the assay is 125 Genome Equivalents/mL. A positive result is indicative of the presence of SARS-CoV-2 RNA. ?Clinical correlation with patient history and other diagnostic information is necessary to determine patient infection status. A negative (Not Detected) result does not preclude SARS-CoV-2 infection. In patients with clinical symptoms and other tests that are consistent with SARS-CoV-2 infection, negative results should be treated as presumptive negative and a new specimen should be tested with alternative PCR molecular test. Invalid: Please collect a new specimen for repeat patient testing if clinically indicated. Lab Interpretation Normal (test code = 46168-8) [facility] CenteraPTT2021-04-25 16:54:54 Test Item Value Reference Range Interpretation Comments APTT Patient (test See_Comment [Automat ed code = 3173-2) message] The system which generated this result transmitted reference range : 23 - 38 Seconds . The reference range was not used to interpr et this result as normal/abnormal . THEODORA (test code = THEODORA) The [facility] patient population mean normal value for aPTT is 30 seconds. Lab Interpretation Normal (test code = 92425-8) [facility] CenterProthrombin Time (PT) / [id number] 16:52:53 Test Item Value Reference Range Interpretation Comments PROTIME PATIENT (test See_Comment [Auto mated message] code = 5964-2) The system wh ich generated this result transmitted ref erence range: 12.0 - 1 4.7 Seconds. The re ference range was not u sed to interpret this result as normal/abnor mal. INR (test code = 6301-6) Nor mal INR <1.1; Warfarin Therap eutic range 2.0 to 3. 0 or 2.5 to 3.5, dep ending upon the indica tions. Lab Interpretation (test Normal code = 27278-4) [facility] CenterUS ABDOMEN [id number] 23:10:00 Unremarkable gallbladder ultrasound. Preliminary Report Dictated by Resident: Johnathan Maloney I, Jazmin Chandler MD., have reviewed this study and agree with theabove report.RIGHT UPPER QUADRANT ABDOMINAL ULTRASOUND HISTORY: Abd pain, RUQ pain COMPARISON: None. FINDINGS: The upper abdominal aorta is normal in caliber with an AP dimension of 1.9cm. PANCREAS: The visualized portions of the pancreatic head and body areunremarkable. LIVER: The liver is normal in size at 15 cm.Normal echogenicity,echotexture, and contour. No focal hepatic lesion. ?Hepatopetal ?flowwithin the main portal vein. GALLBLADDER: No cholelithiasis, pericholecystic fluid, distention, or wallthickening. Negative sonographic Qureshi's sign although the patient waspremedicated. The common bile duct measures 2 mm. RIGHT KIDNEY: The visualized portions of the right kidney are unremarkable. [facility], Radiant Results Inft User -01/23/2021 5:11 PM CSTRIGHT UPPER QUADRANT ABDOMINAL ULTRASOUND HISTORY: Abd pain, RUQ pain COMPARISON: None. FINDINGS:The upper abdominal aorta is normal in caliber with an AP dimension of 1.9cm. PANCREAS: The visualized portions of the pancreatic head and body areunremarkable. LIVER: The liver is normal in size at 15 cm.Normal echogenicity,echotexture, and contour. No focal hepatic lesion. Hepatopetal flowwithin the main portal vein. GALLBLADDER: No cholelithiasis, pericholecystic fluid, distention, or wallthickening. Negative sonographic Qureshi's sign although the patient waspremedicated. Thecommon bile duct measures 2 mm.RIGHT KIDNEY: The visualized portions of the right kidney are unremarkable.IMPRESSION Unremarkable gallbladder ultrasound.Preliminary Report Dictated by Resident: Johnathan Waddell, Jazmin Zelaya MD., have reviewed this study and agree with theabove report.[facility] CenterGLYCOSYLATED HEMOGLOBIN (A1C)2021-01-23 17:29:16 Test Item Value Reference Range Interpretation Comments HGB A1C (test code = 4548-4) 5.4 % 4.0-6.0 Lab Interpretation (test code = Normal 60281-8) [facility] CenterETHANOL2021-03-13 16:01:04 Test Item Value Reference Range Interpretation Comments ALCOHOL (test code = <10 mg/dL 6059033873) THEODORA (test code = Toxic Greater than or THEODORA) equal to 80 mg/dL. NOTE: Whole blood values are approximately 10% to 15% lower than serum and plasma. [facility] CenterMAGNESIUM2021-03-13 15:58:23 Test Item Value Reference Range Interpretation Comments MAGNESIUM (test code = 9895637579) 1.6 mg/dL 1.7-2.4 L Lab Interpretation (test code = Abnormal 46928-2) [facility] CenterPREGNANCY TEST, [id number] 15:31:23 Test Item Value Reference Range Interpretation Comments PREG URINE (test code Negative = 3747410953) THEODORA (test code = THEODORA) Less than 20 IU/L. ?If low titer or ectopic is suspected, resubmit specimen in 48-72 hours. [facility] CenterCB WITH [id number] 12:39:12 Test Item Value Reference Range Interpretation Comments WBC (test code = See_Comment H [Automated 2290-2) message] The system which generated this result transmit carrie reference range : 4.30 - 11.10 10*3/?L. The reference range was not used to interpret this result as normal/abnormal . RBC (test code = See_Comment [Automated 669-8) message] The system which generated this result transmit carrie reference range : 3.93 - 5.25 10*6/?L. The reference range was not used to interpret this result as normal/abnormal . HGB (test code = 11.8 g/dL 11.6-15.0 718-7) HCT (test code = 37.0 % 35.7-45.2 4544-3) MCV (test code = 89.8 fL 80.6-95.5 787-2) MCH (test code = 28.6 pg 25.9-32.8 785-6) MCHC (test code = 31.9 g/dL 31.6-35.1 786-4) RDW-SD (test code = 56.8 fL 39.0-49.9 H 52091-4) RDW-CV (test code = 17.4 % 12.0-15.5 H 788-0) PLT (test code = See_Comment H [Automated 777-3) message] The system which generated this result transmit carrie reference range : 166 - 358 10*3/ ?L. The reference range was not u sed to interpret th is result as normal/abnormal . MPV (test code = 10.1 fL 9.5-12.9 66947-9) NRBC/100 WBC (test See_Comment [Automat ed code = 1162885844) message] The system which generated this result transmit carrie reference range : 0.0 - 10.0 /100 WBCs. The reference range was not used to interpret this result as normal/abnormal . NRBC x10^3 (test code <0.01 See_Comment [Auto mated = 5465988439) message] The system which generated this result transmit carrie reference range : 10*3/?L. The reference range was not used to interpret this result as normal/abnormal . GRAN MAT (NEUT) % 87.6 % (test code = 770-8) IMM GRAN % (test code 0.90 % = 7411368750) LYMPH % (test code = 7.0 % 736-9) MONO % (test code = 4.3 % 5905-5) EOS % (test code = 0.0 % 713-8) BASO % (test code = 0.2 % 706-2) GRAN MAT x10^3(ANC) 20.18 10*3/uL 1.88-7.09 H (test code = 6242597367) IMM GRAN x10^3 (test 0.20 10*3/uL 0.00-0.06 H code = 8912363527) LYMPH x10^3 (test code 1.61 10*3/uL 1.32-3.29 = 731-0) MONO x10^3 (test code 0.99 10*3/uL 0.33-0.92 H = 742-7) EOS x10^3 (test code = <0.03 0.03-0.39 L 711-2) BASO x10^3 (test code 0.05 10*3/uL 0.01-0.07 = 704-7) Lab Interpretation Abnormal (test code = 81957-7) [facility]. METABOLIC PANEL (79457)2021-01-23 12:25:33 Test Item Value Reference Range Interpretation Comments NA (test code = 137 mmol/L 135-145 5159682154) K (test code = 3.3 mmol/L 3.5-5.0 L 4338070446) CL (test code = 105 mmol/L 98-108 2440113589) CO2 TOTAL (test code = 24 mmol/L 23-31 6524070988) AGAP (test code = 2-16 3108332645) BUN (test code = 7 mg/dL 7-23 5922473346) GLUCOSE (test code = 100 mg/dL 70-110 6987065087) CREATININE (test code = 0.40 mg/dL 0.50-1.04 L 4943094028) TOTAL BILI (test code = 0.3 mg/dL 0.1-1.6 2965604605) CALCIUM (test code = 9.0 mg/dL 8.6-10.6 3909075566) T PROTEIN (test code = 6.4 g/dL 6.3-8.2 4902214877) ALBUMIN (test code = 3.4 g/dL 3.5-5.0 L 1837687857) ALK PHOS (test code = 109 U/L 34-122 9828568344) ALTv (test code = 9 U/L 5-35 1742-6) AST(SGOT) (test code = 21 U/L 13-40 9310802067) eGFR Calculation mL/min/1.73m2 (Non-) (test code = 3936922506) eGFR Calculation mL/min/1.73m2 () (test code = 2233060870) THEODORA (test code = THEODORA) Association of Glomerular Filtration Rate (GFR) and Staging of Kidney Disease* + --+ --+ ------+| GFR (mL/min/1.73 m2) ?| With Kidney Damage ?| ?Without Kidney Damage+ --------+ --------+ +| ?>90 ?| ?Stage one ?| ? Normal ?+ ---+ ---+ -------+| ?60-89 ?| ?Stage two ?| ? Decreased GFR ? + --+ --+ ------+| ?30-59 ?| ?Stage three ?| ? Stage three ? + --+ --+ ------+| ?15-29 ?| ?Stage four ? | ? Stage four ?+ ---+ ---+ -------+| ?<15 (or dialysis) ? ?| ?Stage five ? | ? Stage five ?+ ---+ ---+ -------+ *Each stage assumes the associated GFR level has been in effect for at least three months. ?Stages 1 to 5, with or without kidney disease, indicate chronic kidney disease. Notes: Determination of stages one and two (with eGFR >59mL/min/1.73 m2) requires estimation of kidney damage for at least three months as defined by structural or functional abnormalities of the kidney, manifested by either:Pathological abnormalities or Markers of kidney damage (including abnormalities in the composition of the blood or urine or abnormalities in imaging tests). Lab Interpretation Abnormal (test code = 85459-8) [facility] / [facility] - DRUG SCREEN [id number] 00:10:57 Test Item Value Reference Range Interpretation Comments BENZO U (test code = Negative Negative 8857818283) KOTA U (test code = Negative Negative 3821712884) AMPHET (test code = Negative Negative 9401232760) THC (test code = Presumptive Negative A Confirmatio n of 6499712371) Positive Presumptive Positive THC result requires physician order . METHADONE (test code Negative Negative = 5709322326) Meth U (test code = Negative Negative 7877655824) OPIATES (test code = Presumptive Negative A 7151213906) Positive Cocaine Metabolite Negative Negative (test code = 0113635427) PROPOXY (test code = Negative Negative 4038294956) Tric U (test code = Negative Negative 2882070678) PCP (test code = Negative Negative 6107163584) OXYCOD (test code = Negative Negative 7611944118) THEODORA (test code = Urine Drug Cutoff THEODORA) Ranges Benzodiazepines: ? ? 150 ng/mLBarbiturates : ?200 ng/mLAmphetamine: ? 500 ng/mLCannabinoids : ?50 ?ng/mLMethadone: ? 200 ng/mLMethamphetam ine: ? ? 500 ng/mL Opiates: ? 100 ng/mL or 2000 ng/mLCocaine: ? 150 ng/mLPropoxyphene : ?300 ng/mLTricyclics: ?300 ng/mLOxycodone: ? 100 ng/mLPCP: ? 25 ?ng/mL The results are to be used only for medical (i.e., treatment) purposes. Unconfirmed screening results must not be used for non-medical purposes (e.g., employment testing, legal testing). Lab Interpretation Abnormal (test code = 55468-1) [facility] CenterCOVID-19 (ID NOW RAPID TESTING)2021-01-22 23:16:50 Test Item Value Reference Range Interpretation Comments SARS-CoV-2 Rapid ID NOW Not Detected Not Detected (test code = 58598-4) THEODORA (test code = THEODORA) ID NOW COVID-19 Assay is an isothermal nucleic acid amplification test intended for the qualitative detection of nucleic acid from SARS-CoV-2 viral RNA in nasopharyngeal (EVENT PLANNING INTERN) specimens. It is used under Emergency Use Authorization (EUA) by FDA. The limit of detection (LOD) of the assay is 125 Genome Equivalents/mL. A positive result is indicative of the presence of SARS-CoV-2 RNA. ?Clinical correlation with patient history and other diagnostic information is necessary to determine patient infection status. A negative (Not Detected) result does not preclude SARS-CoV-2 infection. In patients with clinical symptoms and other tests that are consistent with SARS-CoV-2 infection, negative results should be treated as presumptive negative and a new specimen should be tested with alternative PCR molecular test. Invalid: Please collect a new specimen for repeat patient testing if clinically indicated. Lab Interpretation Normal (test code = 67022-1) [facility] CenterCT [facility]EN PEL[facility] W [id number] 22:01:40 1. ?No acute abnormality identified in the abdomen or pelvis. 2. ?Persistent prominence of gastric folds with circumferential thickeningin the antrum. (Previously diagnosed with antral gastritis on EGD in February2020). 3. ?Persistent circumferential wall thickening in the sigmoid colon,similar to priorexaminations. Evaluation limited by nondistention.(Previously evaluated with colonoscopy in February 2020.) 4. ?Stable indeterminate adrenal nodules. 5. ?Few peripheral areas of groundglass attenuation inthe lower lobes.Nonspecific and could be seen with infection or inflammation. Considerfurther evaluation of the lungs with chest radiograph.EXAM: CT ABDOMEN PELVIS W CONTRAST HISTORY: 45 year -old woman with abdominal pain, acute, nonlocalized TECHNIQUE: Contrast - IV contrast was given, no oral contrast was given Portal venous phase - abdomen and pelvisReconstructions - coronal and sagittal planes COMPARISON: Multiple prior CT examinations from February 2020 to October 2020 FINDINGS:Statements: None. Thoracic: Few areas of nonspecific groundglass attenuation in the peripheryof the lower lobes (2:4 and 2:9), nonspecific. Band of atelectasis in theright posterior lung base. Hepatobiliary: The liver is unremarkable without focal lesion. Thegallbladder is unremarkable. No biliary dilation. Pancreas: No abnormality identified in the pancreas. Spleen: No abnormality identified in the spleen. Adrenals: Bilateral adrenal nodules (1.6 cm right and 1.9 cm left),unchanged. Genitourinary: No parenchymal abnormality identified in either kidney. Nohydronephrosis. The bladder is unremarkable. The uterus is unremarkable.Dominant follicle or small physiologic cyst at left ovary Gastrointestinal:Persistent prominence of gastric folds and circumferential low- attenuationwall thickening in the distal stomach in this patient with findings ofmoderate antral gastritis on EGD examination in February 2020. No evidence of bowel obstruction or perienteric inflammation. The appendixis normal. Evaluation of the colon given nonspecific distention. Mildpericolonic fat stranding. Few colonic diverticula in the descending andsigmoid colon. Persistent apparent thickening of moderate length segment ofsigmoid colon. Vascular/Lymphatics: No enlarged lymph nodes by CT size criteria. Abdominalaorta is normal in caliber. Minimal atherosclerotic disease. MSK/Body Wall: No concerning bony lesion identified. Andres and screw at theproximal left femur. Peritoneum/Other: No extraluminal air. No extraluminal fluid. [facility], Radiant Results Inft User - 01/22/2021 4:02 PM CSTEXAM: CT ABDOMEN PELVIS W CONTRASTHISTORY: 45 year -old woman with abdominal pain, acute, nonlocalized TECHNIQUE: Contrast - IV contrast was given, no oral contrastwas given Portal venous phase - abdomen and pelvisReconstructions - coronal and sagittal planesCOMPARISON: Multiple prior CT examinations from February 2020 to October 2020FINDINGS:Statements: None.Thoracic: Few areas of nonspecific groundglass attenuation in the peripheryof the lower lobes (2:4 and 2:9), nonspecific. Band of atelectasis in theright posterior lung base.Hepatobiliary: The liver is unremarkable without focal lesion. Thegallbladder is unremarkable. No biliary dilation.Pancreas: No abnormality identified in the pancreas.Spleen: No abnormality identified in the spleen. Adrenals: Bilateraladrenal nodules (1.6 cm right and 1.9 cm left),unchanged. Genitourinary: No parenchymal abnormality identified in either kidney. Nohydronephrosis. The bladder is unremarkable. The uterus is unremarkable .Dominant follicle or small physiologic cyst at left ovaryGastrointestinal:Persistent prominence of gastric folds and circumferential low-attenuationwall thickening in the distal stomach in this patient with findings ofmoderate antral gastritis on EGD examination in February 2020.No evidence of bowel obstruction or perienteric inflammation. The appendixis normal. Evaluation of the colon given nonspecific distention. Mildpericolonic fat stranding. Few colonic diverticula in the descending andsigmoid colon. Persistent apparent thickening of moderate length segment ofsigmoid colon.Vascular/Lymphatics: Noenlarged lymph nodes by CT size criteria. Abdominalaorta is normal in caliber. Minimal atherosclerotic disease.MSK/Body Wall: No concerning bony lesion identified. Andres and screw at theproximal left femur.Peritoneum/Other: No extraluminal air. No extraluminal fluid.IMPRESSION1. No acute abnormality identified in the abdomen or pelvis.2. Persistent prominence of gastric folds with circumferential thickeningin the antrum. (Previously diagnosed with antral gastritis on EGD in February2020).3. Persistent circumferential wall thickening in the sigmoid colon,similar to prior examinations. Evaluation limited by nondistention.(Previously evaluated with colonoscopy in February 2020.)4. Stable indeterminate adrenal nodules.5. Few peripheral areas of groundglass attenuation in the lower lobes.Nonspecific and c ould be seen with infection or inflammation. Considerfurther evaluation of the lungs with chest radiograph.[facility] 20:42:10 Test Item Value Reference Range Interpretation Comments APPEARANCE (test code = Clear Clear 1612137431) COLOR (test code = Yellow Yellow 5951782903) PH (test code = 4.8-8.0 2841164929) SP GRAVITY (test code = 1.003-1.030 4793323830) GLU U QUAL (test code = 50 mg/dL Normal A 2704235778) BLOOD (test code = 3+ Negative A 6113283041) KETONES (test code = 80 mg/dL Negative A 6527914972) PROTEIN (test code = 30 mg/dL Negative A 2887-8) UROBILIN (test code = Normal Normal 0236694296) BILIRUBIN (test code = Negative Negative 4797460308) NITRITE (test code = Negative Negative 3484691875) LEUK BIRDIE (test code = Negative Negative 3552847664) RBC/HPF (test code = >182 See_Comment H [Autom ated message] 5477920922) The system [employer] generated this result transmitted ref erence range: 0 - 3 HP F. The reference range was not used to int erpret this result as normal/abnormal . WBC/HPF (test code = See_Comment [Autom ated message] 0306118277) The system [employer] generated this result transmitted ref erence range: 0 - 5 HP F. The reference range was not used to int erpret this result as normal/abnormal . BACTERIA (test code = Negative Negative 2800215869) MUCOUS (test code = Slight Negative LPF A 4261199183) SQ EPITH (test code = <1 HPF 7985302701) Lab Interpretation (test Abnormal code = 09171-8) [facility] CenterCOMP[facility] MET[facility]OLIC PANEL ([id number])2021-01-22 20:31:50 Test Item Value Reference Range Interpretation Comments NA (test code = 139 mmol/L 135-145 3491628332) K (test code = 3.8 mmol/L 3.5-5.0 5562423893) CL (test code = 108 mmol/L 98-108 7129940883) CO2 TOTAL (test code = 28 mmol/L 23-31 3394098215) AGAP (test code = 2-16 1687877951) BUN (test code = 14 mg/dL 7-23 6343211411) GLUCOSE (test code = 126 mg/dL 70-110 H 9042012551) CREATININE (test code = 0.42 mg/dL 0.50-1.04 L 4918999895) TOTAL BILI (test code = 0.5 mg/dL 0.1-1.9 6988003108) CALCIUM (test code = 9.0 mg/dL 8.6-10.6 0863167993) T PROTEIN (test code = 6.6 g/dL 6.3-8.2 7782673942) ALBUMIN (test code = 3.7 g/dL 3.5-5.0 4522936495) ALK PHOS (test code = 115 U/L 34-122 3365671663) ALTv (test code = 9 U/L 5-35 1742-6) AST(SGOT) (test code = 21 U/L 13-40 1849781528) eGFR Calculation mL/min/1.73m2 (Non-) (test code = 3896132898) eGFR Calculation mL/min/1.73m2 () (test code = 7326470592) THEODORA (test code = THEODORA) Association of Glomerular Filtration Rate (GFR) and Staging of Kidney Disease* + --+ --+ ------+| GFR (mL/min/1.73 m2) ?| With Kidney Damage ?| ?Without Kidney Damage+ --------+ --------+ +| ?>90 ?| ?Stage one ?| ? Normal ?+ ---+ ---+ -------+| ?60-89 ?| ?Stage two ?| ? Decreased GFR ? + --+ --+ ------+| ?30-59 ?| ?Stage three ?| ? Stage three ? + --+ --+ ------+| ?15-29 ?| ?Stage four ? | ? Stage four ?+ ---+ ---+ -------+| ?<15 (or dialysis) ? ?| ?Stage five ? | ? Stage five ?+ ---+ ---+ -------+ *Each stage assumes the associated GFR level has been in effect for at least three months. ?Stages 1 to 5, with or without kidney disease, indicate chronic kidney disease. Notes: Determination of stages one and two (with eGFR >59mL/min/1.73 m2) requires estimation of kidney damage for at least three months as defined by structural or functional abnormalities of the kidney, manifested by either:Pathological abnormalities or Markers of kidney damage (including abnormalities in the composition of the blood or urine or abnormalities in imaging tests). Lab Interpretation Abnormal (test code = 33731-9) [facility] CenterLIPASE2021-[facility] 20:31:50 Test Item Value Reference Range Interpretation Comments LIPASE (test code = 5020701052) 28 U/L 0-220 Lab Interpretation (test code = Normal 35306-6) [facility] WITHOUT [id number] 20:08:21 Test Item Value Reference Range Interpretation Comments WBC (test code = 6690-2) See_Comment H [A utomated message] The system [employer] generated this result transmit carrie reference range : 4.30 - 11.10 10*3/?L. The reference range was not used to interpret this result as normal/abnormal . RBC (test code = 789-8) See_Comment [Au tomated message] The system [employer] generated this result transmit carrie reference range : 3.93 - 5.25 10* 6/?L. The reference r cayden was not used to interpret this result as normal/abnormal . HGB (test code = 718-7) 12.8 g/dL 11.6-15.0 HCT (test code = 4544-3) 39.9 % 35.7-45.2 MCH (test code = 785-6) 28.9 pg 25.9-32.8 MCV (test code = 787-2) 90.1 fL 80.6-95.5 MCHC (test code = 786-4) 32.1 g/dL 31.6-35.1 PLT (test code = 777-3) See_Comment H [Au tomated message] The system [employer] generated this result transmit carrie reference range : 166 - 358 10*3/?L. The reference range was not used to interpret this result as normal/abnormal . MPV (test code = 9.5 fL 9.5-12.9 35850-0) RDW-CV (test code = 17.2 % 12.0-15.5 H 788-0) RDW-SD (test code = 56.6 fL 39.0-49.9 H 61683-5) NRBC x10^3 (test code = <0.01 See_Comment [Au tomated message] 5600334364) The system [employer] generated this result transmit carrie reference range : 10*3/?L. The reference range was not used to interpret this result as normal/abnormal . NRBC/100 WBC (test code See_Comment [Au tomated message] = 8607397950) The system [facility] generated this result transmit carrie reference range : 0.0 - 10.0 /100 WBC s. The reference r cayden was not used to interpret this result as normal/abnormal . IPF % (test code = 1495584352) Lab Interpretation (test Abnormal code = 20979-8) [facility] [id number] 20:23:00 Test Item Value Reference Range Interpretation Comments Feces Culture (test No Salmonella, No code = 625-4) Shigella, No Campylobacter, and No E. coli 0157 isolated. THEODORA (test code = THEODORA) Feces specimens are routinely cultured for Salmonella, Shigella, Campylobacter, and E. coli 0157. [facility]. METABOLIC PANEL ([id number])2020-11-02 11:08:00 Test Item Value Reference Range Interpretation Comments NA (test code = 138 mmol/L 135-145 5041405981) K (test code = 3.5 mmol/L 3.5-5 3249378456) CL (test code = 104 mmol/L 98-108 7095027056) CO2 TOTAL (test code = 25 mmol/L 23-31 8757336188) AGAP (test code = 2-16 4592371290) BUN (test code = 10 mg/dL 7-23 4991711807) GLUCOSE (test code = 105 mg/dL 70-110 9252007424) CREATININE (test code 0.52 mg/dL 0.5-1.04 = 3379674431) TOTAL BILI (test code 0.9 mg/dL 0.1-1.1 = 4130301415) CALCIUM (test code = 9.9 mg/dL 8.6-10.6 5292636039) T PROTEIN (test code = 6.6 g/dL 6.3-8.2 0639710468) ALBUMIN (test code = 3.8 g/dL 3.5-5 0971300136) ALK PHOS (test code = 104 U/L 34-122 0598039264) ALTv (test code = 9 U/L 5-35 1742-6) AST(SGOT) (test code = 15 U/L 13-40 1236452624) eGFR Calculation mL/min/1.73m2 (Non-) (test code = 8352675713) eGFR Calculation mL/min/1.73m2 () (test code = 9258125649) THEODORA (test code = THEODORA) Association of Glomerular Filtration Rate (GFR) and Staging of Kidney Disease* + -+ + ---+| GFR (mL/min/1.73 m2) ?| With Kidney Damage ?| ?Without Kidney Damage+ -------+ ------+ ---------+| ?>90 ?| ?Stage one ?| ? Normal ?+ --+ -+ ----+| ?60-89 ?| ?Stage two ?| ? Decreased GFR ? + -+ + ---+| ?30-59 ?| ?Stage three ?| ? Stage three ? + -+ + ---+| ?15-29 ?| ?Stage four ? | ? Stage four ?+ --+ -+ ----+| ?<15 (or dialysis) ? ?| ?Stage five ? | ? Stage five ?+ --+ -+ ----+ *Each stage assumes the associated GFR level has been in effect for at least three months. ?Stages 1 to 5, with or without kidney disease, indicate chronic kidney disease. Notes: Determination of stages one and two (with eGFR >59mL/min/1.73 m2) requires estimation of kidney damage for at least three months as defined by structural or functional abnormalities of the kidney, manifested by either:Pathological abnormalities or Markers of kidney damage (including abnormalities in the composition of the blood or urine or abnormalities in imaging tests). [facility] WITH [id number] 10:45:00 Test Item Value Reference Range Interpretation Comments WBC (test code = See_Comment H [Automated 1045-2) message] The sy stem which generated this result transmitted reference range : 4.30 - 11.10 10*3/?L. The reference range was not used to interpret this result as normal/abnormal . RBC (test code = See_Comment [Automated 518-8) message] The sy stem which generated this result transmitted reference range : 3.93 - 5.25 10*6/?L. The reference range was not used to interpret this result as normal/abnormal . HGB (test code = 14.3 g/dL 11.6-15 718-7) HCT (test code = 44.1 % 35.7-45.2 4544-3) MCV (test code = 88.2 fL 80.6-95.5 787-2) MCH (test code = 28.6 pg 25.9-32.8 785-6) MCHC (test code = 32.4 g/dL 31.6-35.1 786-4) RDW-SD (test code = 50.1 fL 39-49.9 H 88671-3) RDW-CV (test code = 15.7 % 12-15.5 H 788-0) PLT (test code = See_Comment [Automated 777-3) message] The sy stem which generated this result transmitted reference range : 166 - 358 10*3/ ?L. The reference r cayden was not used to interpret this result as normal/abnormal . MPV (test code = 10.7 fL 9.5-12.9 37082-0) NRBC/100 WBC (test See_Comment [Automat ed code = 1522562442) message] The system which generated this result transmitted reference range : 0.0 - 10.0 /100 WBCs. The refer ence range was not u sed to interpret th is result as normal/abnormal . NRBC x10^3 (test code <0.01 See_Comment [Auto mated = 2606879551) message] The s ystem which generated this result transmitted reference range : 10*3/?L. The reference range was not used to interpret this result as normal/abnormal . GRAN MAT (NEUT) % 69.2 % (test code = 770-8) IMM GRAN % (test code 0.90 % = 3276290498) LYMPH % (test code = 19.8 % 736-9) MONO % (test code = 8.4 % 5905-5) EOS % (test code = 1.1 % 713-8) BASO % (test code = 0.6 % 706-2) GRAN MAT x10^3(ANC) 7.74 10*3/uL 1.88-7.09 H (test code = 2211286656) IMM GRAN x10^3 (test 0.10 10*3/uL 0-0.06 H code = 5948221732) LYMPH x10^3 (test code 2.22 10*3/uL 1.32-3.29 = 731-0) MONO x10^3 (test code 0.94 10*3/uL 0.33-0.92 H = 742-7) EOS x10^3 (test code = 0.12 10*3/uL 0.03-0.39 711-2) BASO x10^3 (test code 0.07 10*3/uL 0.01-0.07 = 704-7) Lab Interpretation Abnormal (test code = 95549-7) [facility] METABOLIC PANEL (NA, K, CL, CO2, GLUCOSE, BUN, CREATININE, CA)2020-10-31 10:38:00 Test Item Value Reference Range Interpretation Comments NA (test code = 136 mmol/L 135-145 5884512428) K (test code = 3.6 mmol/L 3.5-5 1825552210) CL (test code = 107 mmol/L 98-108 6006087503) CO2 TOTAL (test code = 25 mmol/L 23-31 2317457552) AGAP (test code = 2-16 8886737368) BUN (test code = 8 mg/dL 7-23 2674742569) GLUCOSE (test code = 100 mg/dL 70-110 9767032756) CREATININE (test code = 0.46 mg/dL 0.5-1.04 L 7870487068) CALCIUM (test code = 9.1 mg/dL 8.6-10.6 6131420512) eGFR Calculation mL/min/1.73m2 (Non-) (test code = 8546852749) eGFR Calculation mL/min/1.73m2 () (test code = 1917474396) THEODORA (test code = THEODORA) Association of Glomerular Filtration Rate (GFR) and Staging of Kidney Disease* + --+ --+ ------+| GFR (mL/min/1.73 m2) ?| With Kidney Damage ?| ?Without Kidney Damage+ --------+ --------+ +| ?>90 ?| ?Stage one ?| ? Normal ?+ ---+ ---+ -------+| ?60-89 ?| ?Stage two ?| ? Decreased GFR ? + --+ --+ ------+| ?30-59 ?| ?Stage three ?| ? Stage three ? + --+ --+ ------+| ?15-29 ?| ?Stage four ? | ? Stage four ?+ ---+ ---+ -------+| ?<15 (or dialysis) ? ?| ?Stage five ? | ? Stage five ?+ ---+ ---+ -------+ *Each stage assumes the associated GFR level has been in effect for at least three months. ?Stages 1 to 5, with or without kidney disease, indicate chronic kidney disease. Notes: Determination of stages one and two (with eGFR >59mL/min/1.73 m2) requires estimation of kidney damage for at least three months as defined by structural or functional abnormalities of the kidney, manifested by either:Pathological abnormalities or Markers of kidney damage (including abnormalities in the composition of the blood or urine or abnormalities in imaging tests). Lab Interpretation Abnormal (test code = 70097-2) [facility]2020-[facility] 10:38:00 Test Item Value Reference Range Interpretation Comments MAGNESIUM (test code = 7553582686) 2.0 mg/dL 1.7-2.4 Lab Interpretation (test code = Normal 94123-3) [facility] WITH [id number] 10:20:00 Test Item Value Reference Range Interpretation Comments WBC (test code = See_Comment [Automated 4290-2) message] The sy stem which generated this result transmitted reference range : 4.30 - 11.10 10*3/?L. The reference range was not used to interpret this result as normal/abnormal . RBC (test code = See_Comment [Automated 136-8) message] The sy stem which generated this result transmitted reference range : 3.93 - 5.25 10*6/?L. The reference range was not used to interpret this result as normal/abnormal . HGB (test code = 12.8 g/dL 11.6-15 718-7) HCT (test code = 37.9 % 35.7-45.2 4544-3) MCV (test code = 86.9 fL 80.6-95.5 787-2) MCH (test code = 29.4 pg 25.9-32.8 785-6) MCHC (test code = 33.8 g/dL 31.6-35.1 786-4) RDW-SD (test code = 48.8 fL 39-49.9 87274-3) RDW-CV (test code = 15.6 % 12-15.5 H 788-0) PLT (test code = See_Comment [Automated 777-3) message] The sy stem which generated this result transmitted reference range : 166 - 358 10*3/ ?L. The reference r cayden was not used to interpret this result as normal/abnormal . MPV (test code = 10.2 fL 9.5-12.9 97121-3) NRBC/100 WBC (test See_Comment [Automat ed code = 9740712780) message] The system which generated this result transmitted reference range : 0.0 - 10.0 /100 WBCs. The refer ence range was not u sed to interpret th is result as normal/abnormal . NRBC x10^3 (test code <0.01 See_Comment [Auto mated = 8503666379) message] The s ystem which generated this result transmitted reference range : 10*3/?L. The reference range was not used to interpret this result as normal/abnormal . GRAN MAT (NEUT) % 68.5 % (test code = 770-8) IMM GRAN % (test code 0.50 % = 3181809776) LYMPH % (test code = 22.1 % 736-9) MONO % (test code = 7.7 % 5905-5) EOS % (test code = 0.6 % 713-8) BASO % (test code = 0.6 % 706-2) GRAN MAT x10^3(ANC) 7.41 10*3/uL 1.88-7.09 H (test code = 3783886722) IMM GRAN x10^3 (test 0.05 10*3/uL 0-0.06 code = 2860560188) LYMPH x10^3 (test code 2.39 10*3/uL 1.32-3.29 = 731-0) MONO x10^3 (test code 0.83 10*3/uL 0.33-0.92 = 742-7) EOS x10^3 (test code = 0.06 10*3/uL 0.03-0.39 711-2) BASO x10^3 (test code 0.06 10*3/uL 0.01-0.07 = 704-7) Lab Interpretation Abnormal (test code = 77102-8) [facility] CenterFEC[facility]ENS BY [id number] 04:40:00 Test Item Value Reference Range Interpretation Comments Campylobacter (jejuni, Negative Negative, coli and upsaliensis) Indeterminate, (test code = 41787-8) See comment Plesiomonas shigelloides Negative Negative, (test code = 14379-0) Indeterminate, See comment Salmonella (test code = Negative Negative, 95745-9) Indeterminate, See comment Yersinia enterocolitica Negative Negative, (test code = 31916-5) Indeterminate, See comment Vibrio (test code = Negative Negative, 54845-7) Indeterminate, See comment Vibrio cholerae (test Negative Negative, code = 30424-0) Indeterminate, See comment Enteroaggregative E. coli Negative Negative, (EAEC) (test code = Indeterminate, 97503-2) See comment Enteropathogenic E. coli Negative Negative, N/A, (EPEC) (test code = Indeterminate, 67850-9) See comment Enterotoxigenic E. coli Negative Negative, (ETEC) (test code = Indeterminate, 53993-0) See comment Shiga toxin-Producing E. Negative Negative, coli (STEC) (test code = Indeterminate, 70321-2) See comment Shigella/Enteroinvasive Negative Negative, E. coli (EIEC) (test code Indeterminate, = 25454-2) See comment Cryptosporidium (test Negative Negative, code = 27526-8) Indeterminate, See comment Cyclospora cayetanensis Negative Negative, (test code = 43600-5) Indeterminate, See comment Entamoeba histolytica Negative Negative, (test code = 17495-1) Indeterminate, See comment Giardia lamblia (test Negative Negative, code = 34838-1) Indeterminate, See comment Adenovirus F 40/41 (test Negative Negative, code = 59811-7) Indeterminate, See comment Astrovirus (test code = Negative Negative, 00630-9) Indeterminate, See comment Norovirus GI/GII (test Negative Negative, code = 56921-9) Indeterminate, See comment Rotavirus A (test code = Negative Negative, 87426-2) Indeterminate, See comment Sapovirus (test code = Negative Negative, 56111-4) Indeterminate, See comment THEODORA (test code = THEODORA) Negative:A negative result does not rule-out infection. ?This assay does not test for all potential infectious agents of diarrheal disease. Positive:A positive test result does not necessarily indicate the presence of viable organism. Lab Interpretation (test Normal code = 27693-8) [facility] ONLY COVID [id number] 12:55:00COVID DMT InterpretationInterpretation/Recommendations: Molecular NAAT Tests for Active Infection with the SARS-CoV-2 Virus: This patient has a history of testing negative on multiple occasions for hzqGIQN-MpZ-1 virus that causes COVID-19 illness, with no prior history of a positive result. The current test results are also negative. This most likely indicates that the patient does not have an active infection with the SARS-CoV-2 virus, especially if all of these tests coincide with the patient's current presentation. However, infection is not completely ruled out as the false negative rate for molecular NAAT testing using a nasopharyngeal sample can be up to 30%, mostly dependent on the timing of sample collection in relation to illness onset and any deficiencies in sampling techniques. If the patient continues to have persistent or worsening symptoms concerning for COVID-19 illness, a repeat NAAT test (PCR, Rapid ID Now, etc.) should be performed, at which time the SARS-CoV-2 virus - if present - may have reached a detectable viral load (usually peaking by the end of the first week of symptoms). Tests for IgM and/or IgG Antibodies to SARS-CoV-2 Virus: Testing for IgM and IgG antibodies 1-3 weeks after illness onset will indicate whether the patient has produced antibodies to the virus. At this time, it is not known if the production of antibodies - specifically IgG antibodies - indicates whether the patient is immune to future infections with the SARS-CoV-2 virus. Interpretation Result Comments:These interpretation comments are based upon all COVID-19 testing the patient has had at [facility], including molecular NAAT testing (more commonly known as PCR testing and Rapid ID Now testing) and antibody testing. It does not take into account any testing that a patient has had outside of the [facility] medical record. [facility]LABORATORY SERVICESCOVID [id number]-[id number]-4 Rapid ID NOW (no units) ? ? Date ? Value ? 10/28/2020 ? Not Detected ? ? ? 09/28/2020 ? Not Detected ?? ? 08/03/2020 ? Not Detected ? ? ? 05/21/2020 ? Not Detected ? ? ? 05/16/2020 ? Not Detected ? ? ? 04/05/2020 ? Not Detected ? ? ? 03/02/2020 ? Not Detected ? [facility] SERVICESUn[facility] [id number] 12:41:00 Test Item Value Reference Range Interpretation Comments MAGNESIUM (test code = 8581230690) 1.6 mg/dL 1.7-2.4 L Lab Interpretation (test code = Abnormal 47345-1) [facility]OL[facility] (NA, K, CL, CO2, GLUCOSE, BUN, CREATININE, CA)2020-10-30 12:40:00 Test Item Value Reference Range Interpretation Comments NA (test code = 135 mmol/L 135-145 9890473990) K (test code = 3.5 mmol/L 3.5-5 7386333923) CL (test code = 102 mmol/L 98-108 7899236347) CO2 TOTAL (test code = 24 mmol/L 23-31 5303312176) AGAP (test code = 2-16 8698413183) BUN (test code = 7 mg/dL 7-23 0756033925) GLUCOSE (test code = 133 mg/dL 70-110 H 1369593301) CREATININE (test code = 0.36 mg/dL 0.5-1.04 L 6411356493) CALCIUM (test code = 9.3 mg/dL 8.6-10.6 2377463463) eGFR Calculation mL/min/1.73m2 (Non-) (test code = 2503289164) eGFR Calculation mL/min/1.73m2 () (test code = 4813031266) THEODORA (test code = THEODORA) Association of Glomerular Filtration Rate (GFR) and Staging of Kidney Disease* + --+ --+ ------+| GFR (mL/min/1.73 m2) ?| With Kidney Damage ?| ?Without Kidney Damage+ --------+ --------+ +| ?>90 ?| ?Stage one ?| ? Normal ?+ ---+ ---+ -------+| ?60-89 ?| ?Stage two ?| ? Decreased GFR ? + --+ --+ ------+| ?30-59 ?| ?Stage three ?| ? Stage three ? + --+ --+ ------+| ?15-29 ?| ?Stage four ? | ? Stage four ?+ ---+ ---+ -------+| ?<15 (or dialysis) ? ?| ?Stage five ? | ? Stage five ?+ ---+ ---+ -------+ *Each stage assumes the associated GFR level has been in effect for at least three months. ?Stages 1 to 5, with or without kidney disease, indicate chronic kidney disease. Notes: Determination of stages one and two (with eGFR >59mL/min/1.73 m2) requires estimation of kidney damage for at least three months as defined by structural or functional abnormalities of the kidney, manifested by either:Pathological abnormalities or Markers of kidney damage (including abnormalities in the composition of the blood or urine or abnormalities in imaging tests). Lab Interpretation Abnormal (test code = 87758-0) [facility] WITH [id number] 12:31:00 Test Item Value Reference Range Interpretation Comments WBC (test code = See_Comment H [Automated 8231-2) message] The system which generated this result transmit carrie reference range : 4.30 - 11.10 10*3/?L. The reference range was not used to interpret this result as normal/abnormal . RBC (test code = See_Comment [Automated 366-1) message] The system which generated this result transmit carrie reference range : 3.93 - 5.25 10*6/?L. The reference range was not used to interpret this result as normal/abnormal . HGB (test code = 13.3 g/dL 11.6-15 718-7) HCT (test code = 39.2 % 35.7-45.2 4544-3) MCV (test code = 86.0 fL 80.6-95.5 787-2) MCH (test code = 29.2 pg 25.9-32.8 785-6) MCHC (test code = 33.9 g/dL 31.6-35.1 786-4) RDW-SD (test code = 48.4 fL 39-49.9 42571-7) RDW-CV (test code = 15.4 % 12-15.5 788-0) PLT (test code = See_Comment [Automated 777-3) message] The system which generated this result transmit crarie reference range : 166 - 358 10*3/ ?L. The reference range was not u sed to interpret th is result as normal/abnormal . MPV (test code = 11.1 fL 9.5-12.9 99841-4) NRBC/100 WBC (test See_Comment [Automat ed code = 0737672722) message] The system which generated this result transmit carrie reference range : 0.0 - 10.0 /100 WBCs. The reference range was not used to interpret this result as normal/abnormal . NRBC x10^3 (test code <0.01 See_Comment [Auto mated = 1181571962) message] The system which generated this result transmit carrie reference range : 10*3/?L. The reference range was not used to interpret this result as normal/abnormal . GRAN MAT (NEUT) % 91.2 % (test code = 770-8) IMM GRAN % (test code 0.60 % = 0932357331) LYMPH % (test code = 5.6 % 736-9) MONO % (test code = 2.3 % 5905-5) EOS % (test code = 0.0 % 713-8) BASO % (test code = 0.3 % 706-2) GRAN MAT x10^3(ANC) 14.57 10*3/uL 1.88-7.09 H (test code = 8308849692) IMM GRAN x10^3 (test 0.10 10*3/uL 0-0.06 H code = 6698935015) LYMPH x10^3 (test code 0.89 10*3/uL 1.32-3.29 L = 731-0) MONO x10^3 (test code 0.36 10*3/uL 0.33-0.92 = 742-7) EOS x10^3 (test code = <0.03 0.03-0.39 L 711-2) BASO x10^3 (test code 0.05 10*3/uL 0.01-0.07 = 704-7) Lab Interpretation Abnormal (test code = 39029-3) [facility]FF[facility] [id number] 00:59:00 Test Item Value Reference Range Interpretation Comments Clostridioides (Clostridium) Positive Negative A difficile (test code = 59976-7) Lab Interpretation (test code = Abnormal 08633-8) [facility] CenterPhosphorus [id number] 15:26:00 Test Item Value Reference Range Interpretation Comments PHOSPHORUS (test code = 5110367970) 3.2 mg/dL 2.5-5 Lab Interpretation (test code = Normal 91816-5) [facility] CenterB[facility] Metabolic Panel (NA, K, CL, CO2, GLUCOSE, BUN, CREATININE, CA)2020-10-29 15:08:00 Test Item Value Reference Range Interpretation Comments NA (test code = 136 mmol/L 135-145 4164284525) K (test code = 3.3 mmol/L 3.5-5 L 3830685564) CL (test code = 104 mmol/L 98-108 9693354014) CO2 TOTAL (test code = 22 mmol/L 23-31 L 6892867125) AGAP (test code = 2-16 4163534443) BUN (test code = 8 mg/dL 7-23 9497924247) GLUCOSE (test code = 114 mg/dL 70-110 H 2584077026) CREATININE (test code = 0.44 mg/dL 0.5-1.04 L 7357414036) CALCIUM (test code = 9.5 mg/dL 8.6-10.6 7536197771) eGFR Calculation mL/min/1.73m2 (Non-) (test code = 6122324548) eGFR Calculation mL/min/1.73m2 () (test code = 8510916610) THEODORA (test code = THEODORA) Association of Glomerular Filtration Rate (GFR) and Staging of Kidney Disease* + --+ --+ ------+| GFR (mL/min/1.73 m2) ?| With Kidney Damage ?| ?Without Kidney Damage+ --------+ --------+ +| ?>90 ?| ?Stage one ?| ? Normal ?+ ---+ ---+ -------+| ?60-89 ?| ?Stage two ?| ? Decreased GFR ? + --+ --+ ------+| ?30-59 ?| ?Stage three ?| ? Stage three ? + --+ --+ ------+| ?15-29 ?| ?Stage four ? | ? Stage four ?+ ---+ ---+ -------+| ?<15 (or dialysis) ? ?| ?Stage five ? | ? Stage five ?+ ---+ ---+ -------+ *Each stage assumes the associated GFR level has been in effect for at least three months. ?Stages 1 to 5, with or without kidney disease, indicate chronic kidney disease. Notes: Determination of stages one and two (with eGFR >59mL/min/1.73 m2) requires estimation of kidney damage for at least three months as defined by structural or functional abnormalities of the kidney, manifested by either:Pathological abnormalities or Markers of kidney damage (including abnormalities in the composition of the blood or urine or abnormalities in imaging tests). Lab Interpretation Abnormal (test code = 29772-8) [facility] with [id number] 14:01:00 Test Item Value Reference Range Interpretation Comments WBC (test code = See_Comment H [Automated 4213-2) message] The system which generated this result transmit carrie reference range : 4.30 - 11.10 10*3/?L. The reference range was not used to interpret this result as normal/abnormal . RBC (test code = See_Comment [Automated 475-8) message] The system which generated this result transmit carrie reference range : 3.93 - 5.25 10*6/?L. The reference range was not used to interpret this result as normal/abnormal . HGB (test code = 12.9 g/dL 11.6-15 718-7) HCT (test code = 38.1 % 35.7-45.2 4544-3) MCV (test code = 86.6 fL 80.6-95.5 787-2) MCH (test code = 29.3 pg 25.9-32.8 785-6) MCHC (test code = 33.9 g/dL 31.6-35.1 786-4) RDW-SD (test code = 49.9 fL 39-49.9 05098-9) RDW-CV (test code = 15.8 % 12-15.5 H 788-0) PLT (test code = See_Comment [Automated 777-3) message] The system which generated this result transmit carrie reference range : 166 - 358 10*3/ ?L. The reference range was not u sed to interpret th is result as normal/abnormal . MPV (test code = 10.5 fL 9.5-12.9 83097-4) NRBC/100 WBC (test See_Comment [Automat ed code = 1520152298) message] The system which generated this result transmit carrie reference range : 0.0 - 10.0 /100 WBCs. The reference range was not used to interpret this result as normal/abnormal . NRBC x10^3 (test code <0.01 See_Comment [Auto mated = 5173792703) message] The system which generated this result transmit carrie reference range : 10*3/?L. The reference range was not used to interpret this result as normal/abnormal . GRAN MAT (NEUT) % 83.5 % (test code = 770-8) IMM GRAN % (test code 0.80 % = 0312253592) LYMPH % (test code = 10.4 % 736-9) MONO % (test code = 5.1 % 5905-5) EOS % (test code = 0.0 % 713-8) BASO % (test code = 0.2 % 706-2) GRAN MAT x10^3(ANC) 14.30 10*3/uL 1.88-7.09 H (test code = 0297972513) IMM GRAN x10^3 (test 0.14 10*3/uL 0-0.06 H code = 2901960007) LYMPH x10^3 (test code 1.78 10*3/uL 1.32-3.29 = 731-0) MONO x10^3 (test code 0.87 10*3/uL 0.33-0.92 = 742-7) EOS x10^3 (test code = <0.03 0.03-0.39 L 711-2) BASO x10^3 (test code 0.04 10*3/uL 0.01-0.07 = 704-7) Lab Interpretation Abnormal (test code = 34706-4) [facility] CenterMagnesium [id number] 13:57:00 Test Item Value Reference Range Interpretation Comments MAGNESIUM (test code = 7697507218) 1.5 mg/dL 1.7-2.4 L Lab Interpretation (test code = Abnormal 24645-7) [facility] CenterCOVID-19 (ID NOW RAPID TESTING)2020-10-28 20:12:00 Test Item Value Reference Range Interpretation Comments SARS-CoV-2 Rapid ID NOW Not Detected Not Detected (test code = 24704-2) THEODORA (test code = THEODORA) ID NOW COVID-19 Assay is an isothermal nucleic acid amplification test intended for the qualitative detection of nucleic acid from SARS-CoV-2 viral RNA in nasopharyngeal (EVENT [employer]ING [employer]) specimens. It is used under Emergency Use Authorization (EUA) by FDA. The limit of detection (LOD) of the assay is 125 Genome Equivalents/mL. A positive result is indicative of the presence of SARS-CoV-2 RNA. ?Clinical correlation with patient history and other diagnostic information is necessary to determine patient infection status. A negative (Not Detected) result does not preclude SARS-CoV-2 infection. In patients with clinical symptoms and other tests that are consistent with SARS-CoV-2 infection, negative results should be treated as presumptive negative and a new specimen should be tested with alternative PCR molecular test. Invalid: Please collect a new specimen for repeat patient testing if clinically indicated. Lab Interpretation Normal (test code = 89295-2) [facility] CenterETHANOL2020-12-16 20:02:00 Test Item Value Reference Range Interpretation Comments ALCOHOL (test code = <10 mg/dL 7573441016) THEODORA (test code = THEODORA) <10 Exckhqgn49-505 Toxic>100 Depression of MANAGER PUBLISHING>400 Fatalities Reported [facility] CenterADC / [facility] - DRUG SCREEN [id number] 18:36:00 Test Item Value Reference Range Interpretation Comments BENZO U (test code = Presumptive Negative A 3277851047) Positive KOTA U (test code = Negative Negative 8664315394) AMPHET (test code = Negative Negative 9663838165) THC (test code = Presumptive Negative A Confirmatio n of 3182353371) Positive Presumptive Positive THC result requires physician order . METHADONE (test code Negative Negative = 0595309503) Meth U (test code = Negative Negative 4224035590) OPIATES (test code = Presumptive Negative A 5908293601) Positive Cocaine Metabolite Negative Negative (test code = 0386199641) PROPOXY (test code = Negative Negative 1341749124) Tric U (test code = Negative Negative 6898267425) PCP (test code = Negative Negative 2085839462) OXYCOD (test code = Negative Negative 6228454783) THEODORA (test code = Urine Drug Cutoff THEODORA) Ranges Benzodiazepines: ? ? 150 ng/mLBarbiturates : ?200 ng/mLAmphetamine: ? 500 ng/mLCannabinoids : ?50 ?ng/mLMethadone: ? 200 ng/mLMethamphetam ine: ? ? 500 ng/mL Opiates: ? 100 ng/mL or 2000 ng/mLCocaine: ? 150 ng/mLPropoxyphene : ?300 ng/mLTricyclics: ?300 ng/mLOxycodone: ? 100 ng/mLPCP: ? 25 ?ng/mL The results are to be used only for medical (i.e., treatment) purposes. Unconfirmed screening results must not be used for non-medical purposes (e.g., employment testing, legal testing). Lab Interpretation Abnormal (test code = 32440-1) [facility] FfqomiKnoqoawdtv4503-51-74 18:32:00 Test Item Value Reference Range Interpretation Comments APPEARANCE (test code = Clear Clear 6533302605) COLOR (test code = Yellow Yellow 0979588655) PH (test code = 4.8-8.0 0702846711) SP GRAVITY (test code = 1.003-1.030 H 2512890368) GLU U QUAL (test code = Normal Normal 2486641332) BLOOD (test code = Negative Negative 2313897872) KETONES (test code = 20 mg/dL Negative A 9732986469) PROTEIN (test code = Negative Negative 2887-8) UROBILIN (test code = Normal Normal 3236224788) BILIRUBIN (test code = Negative Negative 6837394123) NITRITE (test code = Negative Negative 6782014748) LEUK BIRDIE (test code = Negative Negative 4868211266) RBC/HPF (test code = See_Comment [Autom ated message] 2161396577) The system [employer] generated this result transmitted ref erence range: 0 - 3 HP F. The reference range was not used to int erpret this result as normal/abnormal . WBC/HPF (test code = <1 See_Comment [Autom ated message] 5954627322) The system [employer] generated this result transmitted ref erence range: 0 - 5 HP F. The reference range was not used to int erpret this result as normal/abnormal . BACTERIA (test code = Negative Negative 1782104496) SQ EPITH (test code = HPF 3491198689) Lab Interpretation (test Abnormal code = 42177-0) [facility] CenterCT ABDOMEN PELVIS W [id number] 17:50:14CT Abdomen and Pelvis with intravenous contrast. CLINICAL HISTORY: Abdominal pain. Radiculitis is suspected. DOSE: Up-to-date CT equipment and radiation dose reduction techniques wereemployed. CTDIvol: 6.91 mGy. DLP: 325 mGy-cm. TECHNIQUE : Contiguous axial imaging from the level of the lung basesthrough the pubic symphysis were performed after the uncomplicatedadministration of Omnipaque contrast material. Coronal and sagittalreconstructions were obtained. Auto mA and/or iterative reconstruction wereused to reduce radiation dose. FINDINGS: ? Lower lungs: Clear. No pleural effusion or pericardial effusion. Liver, Gallbladder and Spleen: No focal lesions detected in the liver or inthe spleen. No calcified gallstones. Biliary ducts appear of normal size.Liver measures approximately 13.6 cm in length and spleen is 9 x 3.8 cm. Peritoneum: ?No free air or free fluid. No lymphadenopathy. Pancreas andAdrenals: ?Unremarkable pancreas. 8 mm nodule in the rightadrenal gland and 20 mm nodule in the leftadrenal gland noted, of unknownetiology but likely incidental nonfunctioning adenomas, essentiallyunc hanged compared with September 28, 2020 study. Kidneys and Ureters: ?No visible calculi in the renal collecting systems. No hydroureter or hydronephrosis. Vessels: Mild atherosclerosis. No aortic aneurysm. Retroperitoneum: No abnormal fluid or lymphadenopathy. Bowel: Normal appendix. Diffuse colonic wall thickening with submucosaledema and congestion of the pericolonic fat noted. No localized changesofacute diverticulitis. Small bowel gas pattern is normal. Bladder and Reproductive Organs: Thickened endometrium is likelyphysiologic. Several cystic lesions are seen in the ovaries, consistentwith physiologic changes. Grossly unremarkable unopacified and underdistended urinary bladder. Bones: Metallic andres noted in the left femur. No acute changes in the lowerthoracic or lumbar spines. Mild lumbar levoscoliosis noted. Soft tissues: Small fat-containing indirect type left inguinal hernia. CONCLUSION:1. Abnormal findings in large bowel, particularly more in the distaldescending and sigmoid colon contains, consisting of wall thickening,submucosal edema and minimal congestion of the pericolonic fat. Findingsare consistent with nonspecific colitis. No diverticulitis. Abnormal CTfindings are slightly more severe when compared with the recent CT scan of09/28/2020.2. Bilateral adrenal gland nodules arestable since the previous CT scan. [facility], Radiant Results Inft User - 10/28/2020 11:51 AM CSTCT Abdomen and Pelvis with intravenous contrast.CLINICAL HISTORY: Abdominal pain. Radiculitis is suspected.DOSE: Up-to-date CT equipment and radiation dose reduction techniques wereemployed. CTDIvol: 6.91 mGy. DLP: 325 mGy-cm.TECHNIQUE : Contiguous axial imaging from the level of the lung basesthrough the pubic symphysis were performed after the uncomplicatedadministration of Omnipaque contrast material. Coronal and sagittalreconstructions were obtained. Auto mA and/or iterative reconstruction wereused to reduce radiation dose.FINDINGS: Lower lungs: Clear. No pleural effusion or pericardial effusion.Liver,Gallbladder and Spleen: No focal lesions detected in the liver or inthe spleen. No calcified gallstones. Biliary ducts appear of normal size.Liver measures approximately 13.6 cm in length and spleen is9 x 3.8 cm.Peritoneum: No free air or free fluid. No lymphadenopathy.Pancreas and Adrenals: Unremarkable pancreas. 8 mm nodule in the rightadrenal gland and 20 mm nodule in the left adrenal gland noted, of unknownetiology but likely incidental nonfunctioning adenomas, essentiallyunchanged compared with September 28, 2020 study.Kidneys and Ureters: No visible calculi in the renal collecting systems.No hydroureter or hydronephrosis. Vessels: Mild atherosclerosis. No aortic aneurysm.Retroperitoneum: No abnormal fluid or lymphadenopathy.Bowel: Normal appendix. Diffuse colonic wall thickening with submucosaledema and congestion of the pericolonic fat noted. No localized changes ofacute diverticulitis. Small bowel gas pattern is normal.Bladder and Reproductive Organs: Thickened endometrium is likelyphysiologic. Several cystic lesions are seen in the ovaries, consistentwith physiologic changes. Grossly unremarkable unopacified and underdistended urinary bladder.Bones: Metallic andres noted in the left femur. No acute changes in the lowerthoracic or lumbar spines. Mild lumbar levoscoliosis noted.Softtissues: Small fat-containing indirect type left inguinal hernia.CONCLUSION:1. Abnormal findings in large bowel, particularly more in the distaldescending and sigmoid colon contains, consisting of wall thickening,submucosal edema and minimal congestion of the pericolonic fat. Findingsare consistent with nonspecific colitis. No diverticulitis. Abnormal CTfindings are slightly more severe when comparedwith the recent CT scan of09/28/2020.2. Bilateral adrenal gland nodules are stable since the previous CT scan.[facility] CenterMessi [id number] 17:29:00 Test Item Value Reference Range Interpretation Comments TROPONIN I (test <0.012 See_Comment [Automated code = 1406781143) message] The system which generated this result transmitted reference range : <=0.034 ng/mL. The reference range was not used to interpr et this result as normal/abnormal . THEODORA (test code = Equal or Less than THEODORA) 0.034 ng/ml---Normal ?Note: Cardiac troponin begins to rise 3-4 hours after the onset of ischemia. Repeat in 4-6 hours if the sample was drawn within 3-4 hours of the onset of the symptom and found normal. Between 0.035 and 0.120 ng/mL--- Borderline. Questionable myocardial injury or necrosis ? ?Note: Serial measurement may be necessary to confirm or exclude the diagnosis of myocardial injury or necrosis; Clinical correlation (symptoms, EKGs, imaging studies, and others) required; Repeat in 4-6 hours if clinically indicated. ? Equal or Higher than 0.121 ng/mL---Abnormal. Myocardial Injury or Necrosis Likely ? Biotin has been reported to cause a negative bias, interpret results relative to patient's use of biotin. ? Lab Interpretation Normal (test code = 65084-8) [facility] (NA, K, CL, CO2, GLUCOSE, BUN, CREATININE, CA)2020-10-28 17:18:00 Test Item Value Reference Range Interpretation Comments NA (test code = 138 mmol/L 135-145 7358296757) K (test code = 4.7 mmol/L 3.5-5 4449177744) CL (test code = 106 mmol/L 98-108 2001972053) CO2 TOTAL (test code = 24 mmol/L 23-31 2688709119) AGAP (test code = 2-16 8812168499) BUN (test code = 8 mg/dL 7-23 2609397012) GLUCOSE (test code = 154 mg/dL 70-110 H 2504135720) CREATININE (test code = 0.50 mg/dL 0.5-1.04 2136895465) CALCIUM (test code = 10.0 mg/dL 8.6-10.6 7796005175) eGFR Calculation mL/min/1.73m2 (Non-) (test code = 9969308692) eGFR Calculation mL/min/1.73m2 () (test code = 2046989345) THEODORA (test code = THEODORA) Association of Glomerular Filtration Rate (GFR) and Staging of Kidney Disease* + --+ --+ ------+| GFR (mL/min/1.73 m2) ?| With Kidney Damage ?| ?Without Kidney Damage+ --------+ --------+ +| ?>90 ?| ?Stage one ?| ? Normal ?+ ---+ ---+ -------+| ?60-89 ?| ?Stage two ?| ? Decreased GFR ? + --+ --+ ------+| ?30-59 ?| ?Stage three ?| ? Stage three ? + --+ --+ ------+| ?15-29 ?| ?Stage four ? | ? Stage four ?+ ---+ ---+ -------+| ?<15 (or dialysis) ? ?| ?Stage five ? | ? Stage five ?+ ---+ ---+ -------+ *Each stage assumes the associated GFR level has been in effect for at least three months. ?Stages 1 to 5, with or without kidney disease, indicate chronic kidney disease. Notes: Determination of stages one and two (with eGFR >59mL/min/1.73 m2) requires estimation of kidney damage for at least three months as defined by structural or functional abnormalities of the kidney, manifested by either:Pathological abnormalities or Markers of kidney damage (including abnormalities in the composition of the blood or urine or abnormalities in imaging tests). Lab Interpretation Abnormal (test code = 17491-0) [facility] CenterHepatic Function Panel (ALB, T.PRO, BILI T, BU/BC, ALT, AST, ALK PHOS)2020-10-28 17:18:00 Test Item Value Reference Range Interpretation Comments TOTAL BILI (test code = 6405121206) 0.9 mg/dL 0.1-1.1 BILI UNCON (test code = 3722850231) 0.8 mg/dL 0.1-1.1 BILI CONJ (test code = 3979819308) 0.0 mg/dL 0-0.3 T PROTEIN (test code = 6154954592) 7.6 g/dL 6.3-8.2 ALBUMIN (test code = 8515819192) 4.4 g/dL 3.5-5 ALK PHOS (test code = 9340689880) 139 U/L 34-122 H ALTv (test code = 1742-6) 11 U/L 5-35 AST(SGOT) (test code = 5872839997) 27 U/L 13-40 Lab Interpretation (test code = Abnormal 56740-2) [facility] CenterLipase [id number] 17:18:00 Test Item Value Reference Range Interpretation Comments LIPASE (test code = 2975236886) 29 U/L 0-220 Lab Interpretation (test code = Normal 22477-4) [facility] CenterCBC with [id number] 17:13:00 Test Item Value Reference Range Interpretation Comments WBC (test code = See_Comment H [Automated 6690-2) message] The system which generated this result transmit carrie reference range : 4.30 - 11.10 10*3/?L. The reference range was not used to interpret this result as normal/abnormal . RBC (test code = See_Comment [Automated 789-8) message] The system which generated this result transmit carrie reference range : 3.93 - 5.25 10*6/?L. The reference range was not used to interpret this result as normal/abnormal . HGB (test code = 14.7 g/dL 11.6-15 718-7) HCT (test code = 45.6 % 35.7-45.2 H 4544-3) MCV (test code = 89.2 fL 80.6-95.5 787-2) MCH (test code = 28.8 pg 25.9-32.8 785-6) MCHC (test code = 32.2 g/dL 31.6-35.1 786-4) RDW-SD (test code = 50.3 fL 39-49.9 H 64605-7) RDW-CV (test code = 15.5 % 12-15.5 788-0) PLT (test code = See_Comment [Automated 777-3) message] The system which generated this result transmit carrie reference range : 166 - 358 10*3/ ?L. The reference range was not u sed to interpret th is result as normal/abnormal . MPV (test code = 10.4 fL 9.5-12.9 01523-9) NRBC/100 WBC (test See_Comment [Automat ed code = 3978422599) message] The system which generated this result transmit carrie reference range : 0.0 - 10.0 /100 WBCs. The reference range was not used to interpret this result as normal/abnormal . NRBC x10^3 (test code <0.01 See_Comment [Auto mated = 2728007335) message] The system which generated this result transmit carrie reference range : 10*3/?L. The reference range was not used to interpret this result as normal/abnormal . GRAN MAT (NEUT) % 91.1 % (test code = 770-8) IMM GRAN % (test code 0.50 % = 1642850370) LYMPH % (test code = 5.9 % 736-9) MONO % (test code = 2.0 % 5905-5) EOS % (test code = 0.1 % 713-8) BASO % (test code = 0.4 % 706-2) GRAN MAT x10^3(ANC) 11.63 10*3/uL 1.88-7.09 H (test code = 1625464491) IMM GRAN x10^3 (test 0.07 10*3/uL 0-0.06 H code = 1744258411) LYMPH x10^3 (test code 0.75 10*3/uL 1.32-3.29 L = 731-0) MONO x10^3 (test code 0.25 10*3/uL 0.33-0.92 L = 742-7) EOS x10^3 (test code = <0.03 0.03-0.39 L 711-2) BASO x10^3 (test code 0.05 10*3/uL 0.01-0.07 = 704-7) Lab Interpretation Abnormal (test code = 85486-8) [facility]. METABOLIC PANEL (71447)2020-09-30 15:21:00 Test Item Value Reference Range Interpretation Comments NA (test code = 139 mmol/L 135-145 5339214171) K (test code = 4.1 mmol/L 3.5-5 0899587144) CL (test code = 110 mmol/L 98-108 H 5469717500) CO2 TOTAL (test code = 23 mmol/L 23-31 4202642412) AGAP (test code = 2-16 6233654558) BUN (test code = 4 mg/dL 7-23 L 7631295818) GLUCOSE (test code = 125 mg/dL 70-110 H 6519891530) CREATININE (test code = 0.46 mg/dL 0.5-1.04 L 4346399521) TOTAL BILI (test code = 0.4 mg/dL 0.1-1.1 1855880672) CALCIUM (test code = 9.4 mg/dL 8.6-10.6 6515226599) T PROTEIN (test code = 6.2 g/dL 6.3-8.2 L 6466325152) ALBUMIN (test code = 3.5 g/dL 3.5-5 3699595730) ALK PHOS (test code = 90 U/L 34-122 0724933197) ALTv (test code = 15 U/L 5-35 1742-6) AST(SGOT) (test code = 27 U/L 13-40 4581707838) eGFR Calculation mL/min/1.73m2 (Non-) (test code = 8089234133) eGFR Calculation mL/min/1.73m2 () (test code = 2943003946) THEODORA (test code = THEODORA) Association of Glomerular Filtration Rate (GFR) and Staging of Kidney Disease* + --+ --+ ------+| GFR (mL/min/1.73 m2) ?| With Kidney Damage ?| ?Without Kidney Damage+ --------+ --------+ +| ?>90 ?| ?Stage one ?| ? Normal ?+ ---+ ---+ -------+| ?60-89 ?| ?Stage two ?| ? Decreased GFR ? + --+ --+ ------+| ?30-59 ?| ?Stage three ?| ? Stage three ? + --+ --+ ------+| ?15-29 ?| ?Stage four ? | ? Stage four ?+ ---+ ---+ -------+| ?<15 (or dialysis) ? ?| ?Stage five ? | ? Stage five ?+ ---+ ---+ -------+ *Each stage assumes the associated GFR level has been in effect for at least three months. ?Stages 1 to 5, with or without kidney disease, indicate chronic kidney disease. Notes: Determination of stages one and two (with eGFR >59mL/min/1.73 m2) requires estimation of kidney damage for at least three months as defined by structural or functional abnormalities of the kidney, manifested by either:Pathological abnormalities or Markers of kidney damage (including abnormalities in the composition of the blood or urine or abnormalities in imaging tests). Lab Interpretation Abnormal (test code = 60974-2) [facility]00 Test Item Value Reference Range Interpretation Comments MAGNESIUM (test code = 2119182153) 1.9 mg/dL 1.7-2.4 Lab Interpretation (test code = Normal 53508-1) [facility] CenterPHOSPHORUS2020-11-18 15:15:00 Test Item Value Reference Range Interpretation Comments PHOSPHORUS (test code = 9043526323) 2.8 mg/dL 2.5-5 Lab Interpretation (test code = Normal 23565-5) [facility]BL[facility] [id number] 15:03:00 Test Item Value Reference Range Interpretation Comments Blood Culture-Aerobic Culture positive. No growth AA P revious (test code = 41288-5) See Blood prelim inary Culture Workup verified resu lt for additional was Culture I n information. Progress on 09/28/2020 at 1902 [employer] Blood Culture positive. No growth AA Previous Culture-Anaerobic See Blood preliminar y (test code = 29475-1) Culture Workup veri fied result for additional was Culture I n information. Progress on 09/28/2020 at 1902 [employer]END[employer] Lab Interpretation Abnormal (test code = 82053-5) [facility] WITH [id number] 12:48:00 Test Item Value Reference Range Interpretation Comments WBC (test code = See_Comment [Automated message] 6690-2) The system [employer] generated this result transmitted ref erence range: 4.30 - 1 1.10 10*3/?L. The re ference range was not u sed to interpret this result as normal/abnor mal. RBC (test code = See_Comment [Automated message] 789-8) The system [employer] generated this result transmitted ref erence range: 3.93 - 5 .25 10*6/?L. The re ference range was not u sed to interpret this result as normal/abnor mal. HGB (test code = 12.5 g/dL 11.6-15 718-7) HCT (test code = 38.3 % 35.7-45.2 4544-3) MCV (test code = 90.1 fL 80.6-95.5 787-2) MCH (test code = 29.4 pg 25.9-32.8 785-6) MCHC (test code = 32.6 g/dL 31.6-35.1 786-4) RDW-SD (test code 48.5 fL 39-49.9 = 61368-7) RDW-CV (test code 14.7 % 12-15.5 = 788-0) PLT (test code = See_Comment [Automated message] 777-3) The system whic h generated this result transmitted ref erence range: 166 - 35 8 10*3/?L. The re ference range was not u sed to interpret this result as normal/abnor mal. MPV (test code = 11.2 fL 9.5-12.9 55063-9) NRBC/100 WBC (test See_Comment [Automat ed message] code = 3391330584) The syste m which generated this result transmitted ref erence range: 0.0 - 10 .0 /100 WBCs. The refer ence range was not u sed to interpret this result as normal/abnor mal. NRBC x10^3 (test <0.01 See_Comment [Automated message] code = 7087226216) The syste m which generated this result transmitted ref erence range: 10*3/?L. The reference range was not used to interpr et this result as normal/abnormal . GRAN MAT (NEUT) % 67.1 % (test code = 770-8) IMM GRAN % (test 0.50 % code = 3542969849) LYMPH % (test code 22.8 % = 736-9) MONO % (test code 7.7 % = 5905-5) EOS % (test code = 1.3 % 713-8) BASO % (test code 0.6 % = 706-2) GRAN MAT 5.83 10*3/uL 1.88-7.09 x10^3(ANC) (test code = 4275311499) IMM GRAN x10^3 0.04 10*3/uL 0-0.06 (test code = 6127669946) LYMPH x10^3 (test 1.98 10*3/uL 1.32-3.29 code = 731-0) MONO x10^3 (test 0.67 10*3/uL 0.33-0.92 code = 742-7) EOS x10^3 (test 0.11 10*3/uL 0.03-0.39 code = 711-2) BASO x10^3 (test 0.05 10*3/uL 0.01-0.07 code = 704-7) [facility] CenterPROCALCITONIN2020-11-18 08:08:00 Test Item Value Reference Interpretation Comments Range Procalcitonin (test <0.02 See_Comment [Automa carrie code = 0201878894) message] The system which generated this result transmitted reference range: <0.07 ng/mL. The reference range was not used to interpret this result as normal/abnormal . THEODORA (test code = INTERPRETATION OF THEODORA) PROCALCITONIN RESULTS IN ADULTS >= 18 YEARS OF AGE Initiation and discontinuation of antibiotics on patients with suspected or confirmed Lower Respiratory Tract Infection in Adults >= 18 years of age. + +------ + ----+ +|Procalcit onin |Interpretation ?|Antibiotic ? ? |Considerations ? |ng/mL ? | ?|recommendation | ? + +------ + ----+ +| <0.1 ? | Bacterial ? ? ?| Strongly ? ? ?| ? | ?| infection very | discouraged ? | Overruling: ? | ?| unlikely ? ? ? | ? | ? Clinically unstable ? ? ? + +------ + ----+ ? High risk for adverse ? ? | <0.25 ?| Bacterial ? ? ?| Discouraged ? | ? outcome ? | ?| infection ? ? ?| ? | ? SEE IMPORTANT NOTE ?| ?| unlikely ? ? ? | ? | ? + +------ + ----+ +| >=0.25 ? ? ? | Bacterial ? ? ?| Encouraged ? ?| ? | ?| infection ? ? ?| ? | ? | ?| likely ? | ? | Consider treatment failure ?+ +----- + -----+ if levels does not decrease | >0.5 ? | Bacterial ? ? ?| Strongly ? ? ?| appropriately ? | ?| infection very | encouraged ? ?| ? | ?| likely ? | ? | ? + +------ + ----+ + Discontinuation of antibiotics in high-acuity patients with suspected or confirmed sepsis in Adults >= 18 years of age. + +------ + ----+ +|Procalcit onin |Interpretation ?|Antibiotic ? ? |Considerations ? |ng/mL ? | ?|recommendation | ? + +------ + ----+ +| <0.25 ?| Bacterial ? ? ?| Strongly ? ? ?| ? | ?| infection very | discouraged ? | Overruling: ? | ?| unlikely ? ? ? | ? | ? Clinically unstable ? ? ? + +------ + ----+ ? High risk for adverse ? ? | <0.5 or drop | Bacterial ? ? ?| Discouraged ? | ? outcome ? | >80% from ? ?| infection ? ? ?| ? | ? SEE IMPORTANT NOTE ?| highest PCT ?| unlikely ? ? ? | ? | ? | level ?| ?| ? | ? + +------ + ----+ +| >=0.5 ?| Bacterial ? ? ?| Encouraged ? ?| ? | ?| infection ? ? ?| ? | ? | ?| likely ? | ? | Consider treatment failure ?+ +----- + -----+ if levels does not decrease | >1.0 ? | Bacterial ? ? ?| Strongly ? ? ?| appropriately ? | ?| infection very | encouraged ? ?| ? | ?| likely ? | ? | ? + +------ + ----+ + Percentage of drop of Procalcitonin calculation for Discontinuation of antibiotics in high-acuity patients with suspected or confirmed sepsis in Adults >= 18 years of age. ? Procalcitonin highest{}-Procalcitoni n current{}Delta Procalcitonin = ___ x100% ? Procalcitonin current {} IMPORTANT NOTE: Procalcitonin may be elevated without bacterial infection by physiologic stress related to trauma, levy, chronic dialysis, metastatic cancer, surgery in the past seven days, malaria, some fungal infections, and some forms of vasculitis. The interpretation algorithm may not apply to patients with immunosuppression (equivalent of >10 mg of prednisone daily), HIV with CD4 cell count < 350 cells/mm3, active malignancy on systemic chemotherapy, solid organ transplant or hematopoietic stem cell transplantation, or hospital acquired pneumonia. Additionally, some clinical trials of procalcitonin have excluded patients with shock requiring vasopressor use, acute respiratory failure requiring mechanical ventilation, or those with known lung abscess/empyema. For further information please refer to:[email or web address] Lab Interpretation Normal (test code = 13870-3) [facility] CenterGRAM POSITIVE BLOOD PATHOGENS DNA [id number] 07:16:00 Test Item Value Reference Range Interpretation Comments Streptococcus species Positive Negative, See A (test code = 21570-5) Comment/Narrativ e THEODORA (test code = THEODORA) See blood culture result for additional information. Testing included eleven identification and three resistancemarker targets. Lab Interpretation Abnormal (test code = 80413-8) [facility] CenterCLOSTRIDIUM DIFFICILE [id number] 00:53:00 Test Item Value Reference Range Interpretation Comments Clostridioides (Clostridium) Negative Negative difficile (test code = 61710-8) Lab Interpretation (test code = Normal 89187-4) [facility] CenterSEDIMENTATION [id number] 20:13:00 Test Item Value Reference Range Interpretation Comments ESR (test code = See_Comment [Automated message] 6494284760) The system [employer] generated this result transmitted ref erence range: 0 - 20 m m/HR. The reference r cayden was not used to interpret this result as normal/abnor mal. Lab Interpretation (test Normal code = 37340-8) [facility] 19:44:00 Test Item Value Reference Range Interpretation Comments MAGNESIUM (test code = 5206815405) 1.6 mg/dL 1.7-2.4 L Lab Interpretation (test code = Abnormal 21014-5) [facility] CenterLIPASE2020-11-17 19:43:00 Test Item Value Reference Range Interpretation Comments LIPASE (test code = 1316774706) 27 U/L 0-220 Lab Interpretation (test code = Normal 42141-0) [facility] CenterCBC with [id number] 13:42:00 Test Item Value Reference Range Interpretation Comments WBC (test code = See_Comment H [Automated 8490-2) message] The system which generated this result transmit carrie reference range : 4.30 - 11.10 10*3/?L. The reference range was not used to interpret this result as normal/abnormal . RBC (test code = See_Comment [Automated 799-8) message] The system which generated this result transmit carrie reference range : 3.93 - 5.25 10*6/?L. The reference range was not used to interpret this result as normal/abnormal . HGB (test code = 12.3 g/dL 11.6-15 718-7) HCT (test code = 37.7 % 35.7-45.2 4544-3) MCV (test code = 88.5 fL 80.6-95.5 787-2) MCH (test code = 28.9 pg 25.9-32.8 785-6) MCHC (test code = 32.6 g/dL 31.6-35.1 786-4) RDW-SD (test code = 46.1 fL 39-49.9 74485-3) RDW-CV (test code = 14.4 % 12-15.5 788-0) PLT (test code = See_Comment [Automated 777-3) message] The system which generated this result transmit carrie reference range : 166 - 358 10*3/ ?L. The reference range was not u sed to interpret th is result as normal/abnormal . MPV (test code = 11.0 fL 9.5-12.9 73434-3) NRBC/100 WBC (test See_Comment [Automat ed code = 2682551996) message] The system which generated this result transmit carrie reference range : 0.0 - 10.0 /100 WBCs. The reference range was not used to interpret this result as normal/abnormal . NRBC x10^3 (test code <0.01 See_Comment [Auto mated = 0286145959) message] The system which generated this result transmit carrie reference range : 10*3/?L. The reference range was not used to interpret this result as normal/abnormal . GRAN MAT (NEUT) % 79.5 % (test code = 770-8) IMM GRAN % (test code 0.60 % = 2868513308) LYMPH % (test code = 12.6 % 736-9) MONO % (test code = 7.1 % 5905-5) EOS % (test code = 0.0 % 713-8) BASO % (test code = 0.2 % 706-2) GRAN MAT x10^3(ANC) 16.11 10*3/uL 1.88-7.09 H (test code = 4668063547) IMM GRAN x10^3 (test 0.12 10*3/uL 0-0.06 H code = 4590189636) LYMPH x10^3 (test code 2.55 10*3/uL 1.32-3.29 = 731-0) MONO x10^3 (test code 1.45 10*3/uL 0.33-0.92 H = 742-7) EOS x10^3 (test code = <0.03 0.03-0.39 L 711-2) BASO x10^3 (test code 0.05 10*3/uL 0.01-0.07 = 704-7) REACT LYMPHS (test Rare code = 6795975021) Lab Interpretation Abnormal (test code = 29189-4) [facility] Metabolic Panel (NA, K, CL, CO2, GLUCOSE, BUN, CREATININE, CA)2020-09-29 12:43:00 Test Item Value Reference Range Interpretation Comments NA (test code = 137 mmol/L 135-145 0894074596) K (test code = 3.4 mmol/L 3.5-5 L 1276368105) CL (test code = 108 mmol/L 98-108 7295219873) CO2 TOTAL (test code = 23 mmol/L 23-31 8320695406) AGAP (test code = 2-16 5598809615) BUN (test code = 7 mg/dL 7-23 7116781058) GLUCOSE (test code = 113 mg/dL 70-110 H 2285557488) CREATININE (test code = 0.42 mg/dL 0.5-1.04 L 9588837858) CALCIUM (test code = 9.6 mg/dL 8.6-10.6 9890529913) eGFR Calculation mL/min/1.73m2 (Non-) (test code = 2525674002) eGFR Calculation mL/min/1.73m2 () (test code = 3640700550) THEODORA (test code = THEODORA) Association of Glomerular Filtration Rate (GFR) and Staging of Kidney Disease* + --+ --+ ------+| GFR (mL/min/1.73 m2) ?| With Kidney Damage ?| ?Without Kidney Damage+ --------+ --------+ +| ?>90 ?| ?Stage one ?| ? Normal ?+ ---+ ---+ -------+| ?60-89 ?| ?Stage two ?| ? Decreased GFR ? + --+ --+ ------+| ?30-59 ?| ?Stage three ?| ? Stage three ? + --+ --+ ------+| ?15-29 ?| ?Stage four ? | ? Stage four ?+ ---+ ---+ -------+| ?<15 (or dialysis) ? ?| ?Stage five ? | ? Stage five ?+ ---+ ---+ -------+ *Each stage assumes the associated GFR level has been in effect for at least three months. ?Stages 1 to 5, with or without kidney disease, indicate chronic kidney disease. Notes: Determination of stages one and two (with eGFR >59mL/min/1.73 m2) requires estimation of kidney damage for at least three months as defined by structural or functional abnormalities of the kidney, manifested by either:Pathological abnormalities or Markers of kidney damage (including abnormalities in the composition of the blood or urine or abnormalities in imaging tests). Lab Interpretation Abnormal (test code = 38701-4) [facility]Lauofl [facility] Acid Whole [id number] 05:38:00 Test Item Value Reference Range Interpretation Comments LACTIC ACID (test code = 0.78 mmol/L 6257293044) [facility] CenterCOVID-19 (ID NOW RAPID TESTING)2020-09-28 21:38:00 Test Item Value Reference Range Interpretation Comments SARS-CoV-2 Rapid ID NOW Not Detected Not Detected (test code = 44988-6) THEODORA (test code = THEODORA) ID NOW COVID-19 Assay is an isothermal nucleic acid amplification test intended for the qualitative detection of nucleic acid from SARS-CoV-2 viral RNA in nasopharyngeal ([employer]) specimens. It is used under Emergency Use Authorization (EUA) by FDA. The limit of detection (LOD) of the assay is 125 Genome Equivalents/mL. A positive result is indicative of the presence of SARS-CoV-2 RNA. ?Clinical correlation with patient history and other diagnostic information is necessary to determine patient infection status. A negative (Not Detected) result does not preclude SARS-CoV-2 infection. In patients with clinical symptoms and other tests that are consistent with SARS-CoV-2 infection, negative results should be treated as presumptive negative and a new specimen should be tested with alternative PCR molecular test. Invalid: Please collect a new specimen for repeat patient testing if clinically indicated. Lab Interpretation Normal (test code = 63432-1) [facility] CenterLactic Acid Whole [id number] 21:09:00 Test Item Value Reference Range Interpretation Comments LACTIC ACID (test code = 3.83 mmol/L 7101283613) [facility] CenterCT ABDOMEN PELVIS W [id number] 20:23:491. Diffuse colonic wall thickening and hyperemia is identified with subtlepericolonic edema. The findings suggest a diffuse colitis. No evidence forpneumatosis, perforation or free air is identified.2.Bilateral adrenal nodules are identified measuring up to 1.6 cm ingreatest dimension. These may represent adrenal adenomas, however, adrenalmass protocol CT or MRI may be considered for more definitivecharacterization. RL: 2831 RL: 2831 ORDERING PHYSICIAN: COOPER MCNEIL ABDOMEN AND PELVIS CT WITH INTRAVENOUS CONTRAST. DATE: ?09/28/2020 CLINICAL INDICATIONS: ?Nausea, vomiting. TECHNIQUE: ?Axial computed tomographic images of the abdomen and pelviswere performed after administration of 100 cc of Omnipaque 350intravenously. CT scan was performed according to ALARA (As Low asReasonably Achievable). COMPARISON: ?None. Abdomen findings: The lung bases are clear. The cardiac apex isunremarkable. Diffuse thickening of the wall of the colon is identified with mildhyperemia and slight pericolonic edema. The findings suggest a mild diffusecolitis. No perforation or abscess is identified. A normal appendix isidentified in the right lower quadrant. The stomach and small boweldemonstrate no evidence for obstruction or inflammation. The liver, spleen, pancreas, gallbladder and kidneys have an unremarkablecontrast enhanced appearance. Bilateral adrenal nodules are identifiedwhich measure 1.6 x 1.4 cm on the left and 1.6 x 0.9 cm on the right. Thesemay represent adrenal adenomas, however, adrenal mass protocol CT or MRI isrecommended for more definitive characterization. No adenopathy or free fluid are identified in the abdomen. No acute osseousabnormality is demonstrated. Pelvis findings: The small bowel is unremarkable. Diffuse colonicwallthickening and edema is present. The urinary bladder demonstrates noabnormality. The uterus and ovaries have an unremarkable appearance. Noadenopathy or free fluid are identified in the pelvis. No acute osseousabnormalities demonstrated. [facility], Radiant Results Inft User - 09/28/2020 2:25 PM CSTORDERING PHYSICIAN: COOPER MCNEILABDOMEN AND PELVIS CT WITH INTRAVENOUS CONTRAST.DATE: 09/28/2020CLINICAL INDICATIONS: Nausea, vomiting.TECHNIQUE: Axial computed tomographic images of the abdomen and pelviswere performed after administration of 100 cc of Omnipaque 350intravenously. CT scan was performed according to ALARA (As Low asReasonably Achievable).COMPARISON: None.Abdomen findings: The lung bases are clear. The cardiac apex isunremarkable.Diffuse thickening of the wall of the colon is identified with mildhyperemia and slight pericolonic edema. The findings suggest a mild diffusecolitis. No perforation or abscess is identified. A normal appendix isidentified in the right lower quadrant. Thestomach and small boweldemonstrate no evidence for obstruction or inflammation.The liver, spleen, pancreas, gallbladder and kidneys have an unremarkablecontrast enhanced appearance. Bilateral adrenal nodules are identifiedwhich measure 1.6 x 1.4 cm on the left and 1.6 x 0.9 cm on the right. Thesemay represent adrenal adenomas, however, adrenal mass protocol CT or MRI isrecommended for more definitive characterization.No adenopathy or free fluid are identified in the abdomen. No acute osseousabnormality is demonstrated.Pelvis findings: The small bowel is unremarkable. Diffuse colonic wallthickening and edema is present. The urinary bladder demonstrates noabnormality. The uterus and ovaries have an unremarkable appearance. Noadenopathy or free fluid are identified in the pelvis. No acute osseousabnormalities demonstrated.IMPRESSION1. Diffuse colonic wall thickening and hyperemia is identified withsubtlepericolonic edema. The findings suggest a diffuse colitis. No evidence forpneumatosis, perforation or free air is identified.2. Bilateral adrenal nodules are identified measuring up to 1.6 cm ingreatest dimension. These may represent adrenal adenomas, however, adrenalmass protocol CT or MRI may be considered for more definitivecharacterization.RL: 2831RL: 2831 [facility] CenterUrinalysis2020-11-16 20:18:00 Test Item Value Reference Range Interpretation Comments APPEARANCE (test code = Clear Clear 5217407258) COLOR (test code = Yellow Yellow 1338870165) PH (test code = 4.8-8.0 8526650644) SP GRAVITY (test code = 1.003-1.030 5133652344) GLU U QUAL (test code = 150 mg/dL Normal A 8289224021) BLOOD (test code = Negative Negative 1372816083) KETONES (test code = 20 mg/dL Negative A 0666148577) PROTEIN (test code = Negative Negative 2887-8) UROBILIN (test code = Normal Normal 9685789509) BILIRUBIN (test code = Negative Negative 7907731126) NITRITE (test code = Negative Negative 1618037504) LEUK BIRDIE (test code = Negative Negative 8703809682) RBC/HPF (test code = See_Comment [Autom ated message] 6951661655) The system [employer] generated this result transmit carrie reference range : 0 - 3 HPF. The refe rence range was not u sed to interpret th is result as normal/abnormal . WBC/HPF (test code = See_Comment [Autom ated message] 3312224646) The system [employer] generated this result transmit carrie reference range : 0 - 5 HPF. The refe rence range was not u sed to interpret th is result as normal/abnormal . BACTERIA (test code = Negative Negative 3798290812) SQ EPITH (test code = HPF 4247225725) Lab Interpretation (test Abnormal code = 27047-0) [facility] / [facility] - DRUG SCREEN [id number] 20:13:00 Test Item Value Reference Range Interpretation Comments BENZO U (test code = Negative Negative 5962442611) KOTA U (test code = Negative Negative 1965150936) AMPHET (test code = Negative Negative 1656157932) THC (test code = Presumptive Negative A Confirmatio n of 5076697356) Positive Presumptive Positive THC result requires physician order . METHADONE (test code Negative Negative = 0607701472) Meth U (test code = Negative Negative 6939265724) OPIATES (test code = Negative Negative 2891166697) Cocaine Metabolite Negative Negative (test code = 4501023370) PROPOXY (test code = Negative Negative 9419952750) Tric U (test code = Negative Negative 4285280522) PCP (test code = Negative Negative 9431956129) OXYCOD (test code = Negative Negative 3342322016) THEODORA (test code = Urine Drug Cutoff THEODORA) Ranges Benzodiazepines: ? ? 150 ng/mLBarbiturates : ?200 ng/mLAmphetamine: ? 500 ng/mLCannabinoids : ?50 ?ng/mLMethadone: ? 200 ng/mLMethamphetam ine: ? ? 500 ng/mL Opiates: ? 100 ng/mL or 2000 ng/mLCocaine: ? 150 ng/mLPropoxyphene : ?300 ng/mLTricyclics: ?300 ng/mLOxycodone: ? 100 ng/mLPCP: ? 25 ?ng/mL The results are to be used only for medical (i.e., treatment) purposes. Unconfirmed screening results must not be used for non-medical purposes (e.g., employment testing, legal testing). Lab Interpretation Abnormal (test code = 39689-1) [facility] with [id number] 18:53:00 Test Item Value Reference Range Interpretation Comments WBC (test code = See_Comment H [Automated 1990-2) message] The system which generated this result transmit carrie reference range : 4.30 - 11.10 10*3/?L. The reference range was not used to interpret this result as normal/abnormal . RBC (test code = See_Comment [Automated 789-8) message] The system which generated this result transmit carrie reference range : 3.93 - 5.25 10*6/?L. The reference range was not used to interpret this result as normal/abnormal . HGB (test code = 14.7 g/dL 11.6-15 718-7) HCT (test code = 45.0 % 35.7-45.2 4544-3) MCV (test code = 88.8 fL 80.6-95.5 787-2) MCH (test code = 29.0 pg 25.9-32.8 785-6) MCHC (test code = 32.7 g/dL 31.6-35.1 786-4) RDW-SD (test code = 45.8 fL 39-49.9 45999-0) RDW-CV (test code = 14.0 % 12-15.5 788-0) PLT (test code = See_Comment [Automated 777-3) message] The system which generated this result transmit carrie reference range : 166 - 358 10*3/ ?L. The reference range was not u sed to interpret th is result as normal/abnormal . MPV (test code = 10.3 fL 9.5-12.9 71720-1) NRBC/100 WBC (test See_Comment [Automat ed code = 3320848741) message] The system which generated this result transmit carrie reference range : 0.0 - 10.0 /100 WBCs. The reference range was not used to interpret this result as normal/abnormal . NRBC x10^3 (test code <0.01 See_Comment [Auto mated = 4773007693) message] The system which generated this result transmit carrie reference range : 10*3/?L. The reference range was not used to interpret this result as normal/abnormal . GRAN MAT (NEUT) % 91.1 % (test code = 770-8) IMM GRAN % (test code 0.80 % = 1784505435) LYMPH % (test code = 5.6 % 736-9) MONO % (test code = 2.3 % 5905-5) EOS % (test code = 0.0 % 713-8) BASO % (test code = 0.2 % 706-2) GRAN MAT x10^3(ANC) 15.35 10*3/uL 1.88-7.09 H (test code = 6626942900) IMM GRAN x10^3 (test 0.13 10*3/uL 0-0.06 H code = 6277708671) LYMPH x10^3 (test code 0.95 10*3/uL 1.32-3.29 L = 731-0) MONO x10^3 (test code 0.39 10*3/uL 0.33-0.92 = 742-7) EOS x10^3 (test code = <0.03 0.03-0.39 L 711-2) BASO x10^3 (test code 0.04 10*3/uL 0.01-0.07 = 704-7) Lab Interpretation Abnormal (test code = 03654-1) [facility] CenterP[facility]NCY TEST, [id number] 18:48:00 Test Item Value Reference Range Interpretation Comments PREG SERUM (test code Negative = 1227981153) THEODORA (test code = THEODORA) Less than 10 IU/L. ?If low titer or ectopic is suspected, resubmit specimen in 48-72 hours. [facility] CenterTroponin [id number] 18:44:00 Test Item Value Reference Range Interpretation Comments TROPONIN I (test <0.012 See_Comment [Automated code = 7538293872) message] The system which generated this result transmitted reference range : <=0.034 ng/mL. The reference range was not used to interpr et this result as normal/abnormal . THEODORA (test code = Equal or Less than THEODORA) 0.034 ng/ml---Normal ?Note: Cardiac troponin begins to rise 3-4 hours after the onset of ischemia. Repeat in 4-6 hours if the sample was drawn within 3-4 hours of the onset of the symptom and found normal. Between 0.035 and 0.120 ng/mL--- Borderline. Questionable myocardial injury or necrosis ? ?Note: Serial measurement may be necessary to confirm or exclude the diagnosis of myocardial injury or necrosis; Clinical correlation (symptoms, EKGs, imaging studies, and others) required; Repeat in 4-6 hours if clinically indicated. ? Equal or Higher than 0.121 ng/mL---Abnormal. Myocardial Injury or Necrosis Likely ? Biotin has been reported to cause a negative bias, interpret results relative to patient's use of biotin. ? Lab Interpretation Normal (test code = 31297-9) [facility] 18:44:00 Test Item Value Reference Range Interpretation Comments ALCOHOL (test code = <10 mg/dL 7442428934) THEODORA (test code = THEODORA) <10 [id number] Toxic>100 Depression of MANAGER PUBLISHING>400 Fatalities Reported [facility]eraPTT2020-[facility] 18:35:00 Test Item Value Reference Range Interpretation Comments APTT Patient (test See_Comment [Automat ed code = 3173-2) message] The system which generated this result transmitted reference range : 23 - 38 Seconds . The reference range was not used to interpr et this result as normal/abnormal . THEODORA (test code = THEODORA) The [facility] patient population mean normal value for aPTT is 30 seconds. Lab Interpretation Normal (test code = 03101-8) [facility] CenterBasi Metabolic Panel (NA, K, CL, CO2, GLUCOSE, BUN, CREATININE, CA)2020-09-28 18:34:00 Test Item Value Reference Range Interpretation Comments NA (test code = 140 mmol/L 135-145 0743820271) K (test code = 3.7 mmol/L 3.5-5 8596695847) CL (test code = 109 mmol/L 98-108 H 3236523706) CO2 TOTAL (test code = 22 mmol/L 23-31 L 7006597715) AGAP (test code = 2-16 4912923414) BUN (test code = 16 mg/dL 7-23 1325913528) GLUCOSE (test code = 210 mg/dL 70-110 H 6624718600) CREATININE (test code = 0.51 mg/dL 0.5-1.04 9131000144) CALCIUM (test code = 10.3 mg/dL 8.6-10.6 9754490614) eGFR Calculation mL/min/1.73m2 (Non-) (test code = 6249339800) eGFR Calculation mL/min/1.73m2 () (test code = 0691026293) THEODORA (test code = THEODORA) Association of Glomerular Filtration Rate (GFR) and Staging of Kidney Disease* + --+ --+ ------+| GFR (mL/min/1.73 m2) ?| With Kidney Damage ?| ?Without Kidney Damage+ --------+ --------+ +| ?>90 ?| ?Stage one ?| ? Normal ?+ ---+ ---+ -------+| ?60-89 ?| ?Stage two ?| ? Decreased GFR ? + --+ --+ ------+| ?30-59 ?| ?Stage three ?| ? Stage three ? + --+ --+ ------+| ?15-29 ?| ?Stage four ? | ? Stage four ?+ ---+ ---+ -------+| ?<15 (or dialysis) ? ?| ?Stage five ? | ? Stage five ?+ ---+ ---+ -------+ *Each stage assumes the associated GFR level has been in effect for at least three months. ?Stages 1 to 5, with or without kidney disease, indicate chronic kidney disease. Notes: Determination of stages one and two (with eGFR >59mL/min/1.73 m2) requires estimation of kidney damage for at least three months as defined by structural or functional abnormalities of the kidney, manifested by either:Pathological abnormalities or Markers of kidney damage (including abnormalities in the composition of the blood or urine or abnormalities in imaging tests). Lab Interpretation Abnormal (test code = 83913-1) [facility] CenterHepatic Function Panel (ALB, T.PRO, BILI T, BU/BC, ALT, AST, ALK PHOS)2020-09-28 18:34:00 Test Item Value Reference Range Interpretation Comments TOTAL BILI (test code = 5729239628) 0.7 mg/dL 0.1-1.1 BILI UNCON (test code = 2700394580) 0.7 mg/dL 0.1-1.1 BILI CONJ (test code = 9113340433) 0.0 mg/dL 0-0.3 T PROTEIN (test code = 6536298399) 7.2 g/dL 6.3-8.2 ALBUMIN (test code = 5868478053) 4.1 g/dL 3.5-5 ALK PHOS (test code = 7869295971) 134 U/L 34-122 H ALTv (test code = 1742-6) 17 U/L 5-35 AST(SGOT) (test code = 3393147626) 23 U/L 13-40 Lab Interpretation (test code = Abnormal 68278-9) [facility] CenterLipase [id number] 18:34:00 Test Item Value Reference Range Interpretation Comments LIPASE (test code = 2158222193) 35 U/L 0-220 Lab Interpretation (test code = Normal 09657-1) [facility] CenterProthrombin Time (PT) / [id number] 18:33:00 Test Item Value Reference Range Interpretation Comments PROTIME PATIENT (test See_Comment [Auto mated message] code = 5964-2) The system [employer]-dat[employer] generated this result transmitted ref erence range: 12.0 - 1 4.7 Seconds. The re ference range was not u sed to interpret this result as normal/abnor mal. INR (test code = 6301-6) Nor mal INR <1.1; Warfarin Therap eutic range 2.0 to 3. 0 or 2.5 to 3.5, dep ending upon the indica tions. Lab Interpretation (test Normal code = 73387-2) [facility] CenterURINALYSIS2020-09-23 17:08:00 Test Item Value Reference Range Interpretation Comments APPEARANCE (test code = Cloudy Clear A 9397679955) COLOR (test code = Yellow Yellow 6107930567) PH (test code = 4.8-8.0 9873748305) SP GRAVITY (test code = 1.003-1.030 7831509459) GLU U QUAL (test code = Normal Normal 3856205757) BLOOD (test code = Negative Negative 5045457845) KETONES (test code = 5 mg/dL Negative A 8599704694) PROTEIN (test code = Negative Negative 2887-8) UROBILIN (test code = Normal Normal 3946949778) BILIRUBIN (test code = Negative Negative 4202117075) NITRITE (test code = Negative Negative 9507833224) LEUK BIRDIE (test code = Negative Negative 9763210258) RBC/HPF (test code = See_Comment [Autom ated message] 8735082166) The system [employer] generated this result transmitted ref erence range: 0 - 3 HP F. The reference range was not used to int erpret this result as normal/abnormal . WBC/HPF (test code = <1 See_Comment [Autom ated message] 0621072005) The system [employer] generated this result transmitted ref erence range: 0 - 5 HP F. The reference range was not used to int erpret this result as normal/abnormal . BACTERIA (test code = Moderate Negative A 6351380803) MUCOUS (test code = Slight Negative LPF A 5468603649) AMORPHOUS (test code = Many Rare HPF A 2845028515) SQ EPITH (test code = HPF 3761781566) YEAST BUD (test code = See_Comment [Aut omated message] 1514490779) The system [employer] generated this result transmitted ref erence range: <=1 HPF. The reference range was not used to int erpret this result as normal/abnormal . HYAL CAST (test code = See_Comment [Aut omated message] 1184226416) The system [employer] generated this result transmitted ref erence range: <=2 LPF. The reference range was not used to int erpret this result as normal/abnormal . Lab Interpretation (test Abnormal code = 96860-8) [facility] BranchL[facility] (75532)(TOTAL CHOLESTEROL, TRIGLYCERIDES, HDL)2020-08-05 16:11:00 Test Item Value Reference Range Interpretation Comments CHOL (test code = 215 mg/dL 120-200 H 6155759603) HDL (test code = 63 mg/dL >50 3779315225) HDLC RATIO (test code = See_Comment [Au tomated message] 6216264608) The system [employer] generated this result transmit carrie reference range : <=4.5. The refe rence range was not u sed to interpret th is result as normal/abnormal . TRIG (test code = 121 mg/dL 30-170 2565232375) LDL CHOL (test code = 128 mg/dL See_Comment [Auto mated message] 46623-9) The system [employer] h generated this result transmit carrie reference range : <=160. The refe rence range was not u sed to interpret th is result as normal/abnormal . VLDL (test code = 24 mg/dL 5-60 0269448900) Lab Interpretation (test Abnormal code = 52820-8) [facility] WITH [id number] 16:11:00 Test Item Value Reference Range Interpretation Comments WBC (test code = See_Comment [Automated 0590-2) message] The sy stem which generated this result transmitted reference range : 4.30 - 11.10 10*3/?L. The reference range was not used to interpret this result as normal/abnormal . RBC (test code = See_Comment [Automated 409-8) message] The sy stem which generated this result transmitted reference range : 3.93 - 5.25 10*6/?L. The reference range was not used to interpret this result as normal/abnormal . HGB (test code = 13.9 g/dL 11.6-15 718-7) HCT (test code = 41.4 % 35.7-45.2 4544-3) MCV (test code = 88.1 fL 80.6-95.5 787-2) MCH (test code = 29.6 pg 25.9-32.8 785-6) MCHC (test code = 33.6 g/dL 31.6-35.1 786-4) RDW-SD (test code = 44.3 fL 39-49.9 23773-1) RDW-CV (test code = 13.7 % 12-15.5 788-0) PLT (test code = See_Comment [Automated 357-3) message] The sy stem which generated this result transmitted reference range : 166 - 358 10*3/ ?L. The reference r cayden was not used to interpret this result as normal/abnormal . MPV (test code = 10.6 fL 9.5-12.9 38052-6) NRBC/100 WBC (test See_Comment [Automat ed code = 2712432675) message] The system which generated this result transmitted reference range : 0.0 - 10.0 /100 WBCs. The refer ence range was not u sed to interpret th is result as normal/abnormal . NRBC x10^3 (test code <0.01 See_Comment [Auto mated = 1914814917) message] The s ystem which generated this result transmitted reference range : 10*3/?L. The reference range was not used to interpret this result as normal/abnormal . GRAN MAT (NEUT) % 86.0 % (test code = 770-8) IMM GRAN % (test code 0.50 % = 4737934089) LYMPH % (test code = 9.1 % 736-9) MONO % (test code = 3.6 % 5905-5) EOS % (test code = 0.4 % 713-8) BASO % (test code = 0.4 % 706-2) GRAN MAT x10^3(ANC) 9.56 10*3/uL 1.88-7.09 H (test code = 2831164583) IMM GRAN x10^3 (test 0.05 10*3/uL 0-0.06 code = 8073290943) LYMPH x10^3 (test code 1.01 10*3/uL 1.32-3.29 L = 731-0) MONO x10^3 (test code 0.40 10*3/uL 0.33-0.92 = 742-7) EOS x10^3 (test code = 0.04 10*3/uL 0.03-0.39 711-2) BASO x10^3 (test code 0.04 10*3/uL 0.01-0.07 = 704-7) Lab Interpretation Abnormal (test code = 28380-4) [facility] CenterCOMP. METABOLIC PANEL (41566)2020-08-05 16:11:00 Test Item Value Reference Range Interpretation Comments NA (test code = 137 mmol/L 135-145 3922242972) K (test code = 3.6 mmol/L 3.5-5 4447099262) CL (test code = 104 mmol/L 98-108 9550546035) CO2 TOTAL (test code = 23 mmol/L 23-31 1727810205) AGAP (test code = 2-16 1067119552) BUN (test code = 13 mg/dL 7-23 9915122763) GLUCOSE (test code = 140 mg/dL 70-110 H 0442669276) CREATININE (test code = 0.44 mg/dL 0.5-1.04 L 8162121517) TOTAL BILI (test code = 0.6 mg/dL 0.1-1.0 1393312443) CALCIUM (test code = 10.0 mg/dL 8.6-10.6 3994001089) T PROTEIN (test code = 7.1 g/dL 6.3-8.2 7082494764) ALBUMIN (test code = 3.9 g/dL 3.5-5 0372600315) ALK PHOS (test code = 117 U/L 34-122 4587013839) ALTv (test code = 17 U/L 5-35 1742-6) AST(SGOT) (test code = 25 U/L 13-40 8864745871) eGFR Calculation mL/min/1.73m2 (Non-) (test code = 4660372648) eGFR Calculation mL/min/1.73m2 () (test code = 0373926264) THEODORA (test code = THEODORA) Association of Glomerular Filtration Rate (GFR) and Staging of Kidney Disease* + --+ --+ ------+| GFR (mL/min/1.73 m2) ?| With Kidney Damage ?| ?Without Kidney Damage+ --------+ --------+ +| ?>90 ?| ?Stage one ?| ? Normal ?+ ---+ ---+ -------+| ?60-89 ?| ?Stage two ?| ? Decreased GFR ? + --+ --+ ------+| ?30-59 ?| ?Stage three ?| ? Stage three ? + --+ --+ ------+| ?15-29 ?| ?Stage four ? | ? Stage four ?+ ---+ ---+ -------+| ?<15 (or dialysis) ? ?| ?Stage five ? | ? Stage five ?+ ---+ ---+ -------+ *Each stage assumes the associated GFR level has been in effect for at least three months. ?Stages 1 to 5, with or without kidney disease, indicate chronic kidney disease. Notes: Determination of stages one and two (with eGFR >59mL/min/1.73 m2) requires estimation of kidney damage for at least three months as defined by structural or functional abnormalities of the kidney, manifested by either:Pathological abnormalities or Markers of kidney damage (including abnormalities in the composition of the blood or urine or abnormalities in imaging tests). Lab Interpretation Abnormal (test code = 37202-9) [facility] CenterLIPASE2020-09-23 16:10:00 Test Item Value Reference Range Interpretation Comments LIPASE (test code = 9140299180) 42 U/L 0-220 Lab Interpretation (test code = Normal 42528-0) [facility] CenterLactic Acid Whole [id number] 17:58:00 Test Item Value Reference Range Interpretation Comments LACTIC ACID (test code = 1.61 mmol/L 1807026356) [facility] CenterURINALYSIS2020-09-21 17:13:00 Test Item Value Reference Range Interpretation Comments APPEARANCE (test code = Clear Clear 5680956715) COLOR (test code = Yellow Yellow 5575326800) PH (test code = 4.8-8.0 4050061916) SP GRAVITY (test code = 1.003-1.030 4277354715) GLU U QUAL (test code = Negative Negative 2053516769) BLOOD (test code = Trace Negative A 4692487019) KETONES (test code = Negative Negative 7846264063) PROTEIN (test code = Negative Negative 2887-8) UROBILIN (test code = 0.2 mg/dL See_Comment [Auto mated message] 7185539754) The system [employer] generated this result transmit carrie reference range : 0-1.0 mg/dL. Th e reference range was not used to interpret this result as normal/abnormal . BILIRUBIN (test code = Negative Negative 4523163018) NITRITE (test code = Negative Negative 7138728599) LEUK BIRDIE (test code = Negative Negative 5136721652) RBC/HPF (test code = See_Comment [Autom ated message] 8324968113) The system [employer] generated this result transmit carrie reference range : 0 - 3 HPF. The refe rence range was not u sed to interpret th is result as normal/abnormal . WBC/HPF (test code = See_Comment [Autom ated message] 8069437234) The system [employer] generated this result transmit carrie reference range : 0 - 5 HPF. The refe rence range was not u sed to interpret th is result as normal/abnormal . BACTERIA (test code = Negative Negative 8295287320) SQ EPITH (test code = <1 HPF 8750623318) Lab Interpretation (test Abnormal code = 65580-8) [facility] CenterCT ABDOMEN PELVIS W [id number] 16:01:06 1. ?No acute abdominopelvic process is identified. 2. ?Pancreatic parenchymal atrophy. 3. ?Scattered nodular soft tissue densities in the peritoneal cavity withinterval decrease in size in comparison to the prior exam as describedabove. 4. ?Unchanged circumferential thickening of the gastric antrum-pylorus anddescending/sigmoid colon. 5. ?Stable indeterminate adrenal nodules. Preliminary Report Dictated by Resident: Edward Davidson I, Alexsandra Pedro MD., have reviewed this study and agree with the abovereport.EXAM: CT ABDOMEN AND PELVIS WITH CONTRAST HISTORY: PMH of pancreatitis complaining of sudden onset of pain withnausea/vomiting at 5 am COMPARISON: MR abdomen and MRCP 05/19/2020, abdominalultrasound 04/06/2020,CT abdomen and pelvis 04/05/2020. TECHNIQUE AND FINDINGS: Contiguous axial imaging from the level of the lungbases through the proximal thighs was performed after the administrationofintravenous Omnipaque contrast. Coronal and sagittal reconstructions wereobtained. ?Auto mA and/oriterative reconstruction were used to reduceradiation dose. FINDINGS: LOWER THORAX: The lungs bases are clear. No cardiomegaly. LIVER: No focal hepatic lesions. ?Normal contour. GALLBLADDER AND BILIARY TREE: No biliary ductal dilation. ?No gallbladderwall thickening. SPLEEN: No splenomegaly. PANCREAS: No ductal dilation or masses. Pancreatic parenchymal atrophy. ADRENAL GLANDS: Stable bilateral adrenal nodules are indeterminate,measuring up to 1.4 cm on the left KIDNEYS: No hydronephrosis, stones, or masses. PERITONEUM AND RETROPERITONEUM: No free air or fluid. Scattered nodularsoft tissue throughout the peritoneal cavity with interval decrease in sizein comparison to the prior exam on 04/05/2020,for example: A nodularpancreatic tail soft tissue density has decreased from 3.1 x 3.9 cm to 0.9x 1.5 cm (2:35), left para colonic gutter nodule has decreased from 0.7 to0.5 cm, and right para colonic nodule has decreased from 3.1 x 2.1 to 1.3 x2 cm (2:72), and pancreatic head nodular soft tissue density has decreasedfrom 4.2 x 1.8 to 1.4 x 1.1 cm (2:49). LYMPH NODES: Stable portacaval lymph node measuring 0.8 cm (2:35). GI TRACT: Unchanged circumferential thickening and mucosal enhancement ofthe gastric antrum-pylorus. Unchanged circumferential thickening of thedescending/sigmoid colon. Few diverti cula of the distal descending/sigmoidcolon are seen. ?The appendix is unremarkable. PELVIS/BLADDER: The uterus and bilateral ovaries are unremarkable. Theurinary bladder is partially distended and unremarkable. VESSELS: Unremarkable. BONES AND SOFT TISSUES: No suspicious lytic or sclerotic bony lesions.Partially visualized intramedullary nail and screw fixation of the leftfemur is noted. [facility], Radiant Results Inft User - 08/03/2020 11:02 AM CDTEXAM: CT ABDOMEN AND PELVIS WITH CONTRASTHISTORY: [facility] ofpancreatitis complaining of sudden onset of pain withnausea/vomiting at 5 amCOMPARISON: MR abdomen and MRCP 05/19/2020, abdominal ultrasound 04/06/2020,CT abdomen and pelvis 04/05/2020.TECHNIQUE AND FINDINGS: Contiguous axial imaging from the level of the lungbases through the proximal thighs was performed after the administration ofintravenous Omnipaque contrast. Coronal and sagittal reconstructions were obtained. Auto mA and/or iterative reconstruction were used to reduceradiation dose.FINDINGS:LOWER THORAX: The lungs bases are clear. No cardiomegaly. LIVER: No focal hepatic lesions. Normal contour.GALLBLADDER AND BILIARY TREE: No biliary ductal dilation. No gallbladderwall thickening.SPLEEN: No sp lenomegaly.PANCREAS: No ductal dilation or masses. Pancreatic parenchymal atrophy.ADRENAL GLANDS: Stable bilateral adrenal nodules are indeterminate,measuring up to 1.4 cm on the leftKIDNEYS: No hydronephrosis, stones, or masses.PERITONEUM AND RETROPERITONEUM: No free air or fluid. Scattered nodularsoft tissue throughout the peritoneal cavity with interval decrease in sizein comparison to the prior exam on 04/05/2020, for example: A nodularpancreatic tail soft tissue density has decreased from 3.1 x 3.9 cm to 0.9x 1.5 cm (2:35), left para colonic gutter nodule has decreased from 0.7 to0.5 cm, and right para colonic nodule has decreased from 3.1 x 2.1 to 1.3 x2 cm (2:72), and pancreatic head nodularsoft tissue density has decreasedfrom 4.2 x 1.8 to 1.4 x 1.1 cm (2:49).LYMPH NODES: Stable portacaval lymph node measuring 0.8 cm (2:35).GI TRACT: Unchanged circumferential thickening and mucosal enhanc ement ofthe gastric antrum-pylorus. Unchanged circumferential thickening of thedescending/sigmoid colon. Few diverticula of the distal descending/sigmoidcolon are seen. The appendix is unremarkable.PELVIS/BLADDER: The uterus and bilateral ovaries are unremarkable. Theurinary bladder is partially distended and unremarkable.VESSELS: Unremarkable.BONES AND SOFT TISSUES: No suspicious lytic or scleroticbony lesions.Partially visualized intramedullary nail and screw fixation of the leftfemur is noted.IMPRESSION1. No acute abdominopelvic process is identified.2. Pancreatic parenchymal atrophy.3. Scattered nodular soft tissue densities in the peritoneal cavity withinterval decrease in size in comparison to the prior exam as describedabove.4. Unchanged circumferential thickening of the gastric antrum- pylorus anddescending/sigmoid colon.5. Stable indeterminate adrenal nodules.Preliminary Report Dictated by Resident: Alexsandra Almendarez MD., have reviewed this study and agree with the abovereport.[facility] CenterGLYCOSYLATED HEMOGLOBIN (A1C)2020-08-03 14:40:00 Test Item Value Reference Range Interpretation Comments HGB A1C (test code = 5.4 % 4-6 4548-4) THEODORA (test code = THEODORA) %A1C (NGSP) Interpretation (ADA)4.8-5.6 ? ? Normal or (Non-Diabetic Range)5.7-6.4 ? ? Increased Risk (Pre-Diabetic)>6.5 ?Diabetes Indicated Lab Interpretation Normal (test code = 52173-0) [facility] CenterCOVID-19 (ID NOW RAPID TESTING)2020-08-03 14:37:00 Test Item Value Reference Range Interpretation Comments SARS-CoV-2 Rapid ID NOW Not Detected Not Detected (test code = 05600-7) THEODORA (test code = THEODORA) ID NOW COVID-19 Assay is an isothermal nucleic acid amplification test intended for the qualitative detection of nucleic acid from SARS-CoV-2 viral RNA in nasopharyngeal ([employer]) specimens. It is used under Emergency Use Authorization (EUA) by FDA. The limit of detection (LOD) of the assay is 125 Genome Equivalents/mL. A positive result is indicative of the presence of SARS-CoV-2 RNA. ?Clinical correlation with patient history and other diagnostic information is necessary to determine patient infection status. A negative (Not Detected) result does not preclude SARS-CoV-2 infection. In patients with clinical symptoms and other tests that are consistent with SARS-CoV-2 infection, negative results should be treated as presumptive negative and a new specimen should be tested with alternative PCR molecular test. Invalid: Please collect a new specimen for repeat patient testing if clinically indicated. Lab Interpretation Normal (test code = 07633-7) [facility] CenterLIPID PANEL (46810)(TOTAL CHOLESTEROL, TRIGLYCERIDES, HDL)2020-08-03 14:33:00 Test Item Value Reference Range Interpretation Comments CHOL (test code = 213 mg/dL 120-200 H 9264722713) HDL (test code = 65 mg/dL >50 1731208268) HDLC RATIO (test code = See_Comment [Au tomated message] 3545300072) The system [employer] generated this result transmit carrie reference range : <=4.5. The refe rence range was not u sed to interpret th is result as normal/abnormal . TRIG (test code = 148 mg/dL 30-170 7645934284) LDL CHOL (test code = 118 mg/dL See_Comment [Auto mated message] 83279-8) The system [employer] generated this result transmit carrie reference range : <=160. The refe rence range was not u sed to interpret th is result as normal/abnormal . VLDL (test code = 30 mg/dL 5-60 9163124027) Lab Interpretation (test Abnormal code = 37137-0) [facility]. METABOLIC PANEL (20381)2020-08-03 14:32:00 Test Item Value Reference Range Interpretation Comments NA (test code = 138 mmol/L 135-145 4801242432) K (test code = 3.8 mmol/L 3.5-5 4713801250) CL (test code = 105 mmol/L 98-108 6020090511) CO2 TOTAL (test code = 23 mmol/L 23-31 3500540817) AGAP (test code = 2-16 9063427746) BUN (test code = 13 mg/dL 7-23 7948122652) GLUCOSE (test code = 160 mg/dL 70-110 H 9165491668) CREATININE (test code = 0.59 mg/dL 0.5-1.04 2765222797) TOTAL BILI (test code = 0.4 mg/dL 0.1-1.6 1783691687) CALCIUM (test code = 10.8 mg/dL 8.6-10.6 H 1622721536) T PROTEIN (test code = 7.2 g/dL 6.3-8.2 2798436034) ALBUMIN (test code = 4.1 g/dL 3.5-5 5096210312) ALK PHOS (test code = 125 U/L 34-122 H 4070036182) ALTv (test code = 18 U/L 5-35 1742-6) AST(SGOT) (test code = 24 U/L 13-40 5067238631) eGFR Calculation mL/min/1.73m2 (Non-) (test code = 9317249155) eGFR Calculation mL/min/1.73m2 () (test code = 4721800456) THEODORA (test code = THEODORA) Association of Glomerular Filtration Rate (GFR) and Staging of Kidney Disease* + --+ --+ ------+| GFR (mL/min/1.73 m2) ?| With Kidney Damage ?| ?Without Kidney Damage+ --------+ --------+ +| ?>90 ?| ?Stage one ?| ? Normal ?+ ---+ ---+ -------+| ?60-89 ?| ?Stage two ?| ? Decreased GFR ? + --+ --+ ------+| ?30-59 ?| ?Stage three ?| ? Stage three ? + --+ --+ ------+| ?15-29 ?| ?Stage four ? | ? Stage four ?+ ---+ ---+ -------+| ?<15 (or dialysis) ? ?| ?Stage five ? | ? Stage five ?+ ---+ ---+ -------+ *Each stage assumes the associated GFR level has been in effect for at least three months. ?Stages 1 to 5, with or without kidney disease, indicate chronic kidney disease. Notes: Determination of stages one and two (with eGFR >59mL/min/1.73 m2) requires estimation of kidney damage for at least three months as defined by structural or functional abnormalities of the kidney, manifested by either:Pathological abnormalities or Markers of kidney damage (including abnormalities in the composition of the blood or urine or abnormalities in imaging tests). Lab Interpretation Abnormal (test code = 03851-4) [facility] [facility]2020-09-[facility] 14:32:00 Test Item Value Reference Range Interpretation Comments LIPASE (test code = 1112906469) 40 U/L 0-220 Lab Interpretation (test code = Normal 65358-1) [facility] WITH [id number] 14:18:00 Test Item Value Reference Range Interpretation Comments WBC (test code = See_Comment H [Automated 9903-2) message] The system which generated this result transmit carrie reference range : 4.30 - 11.10 10*3/?L. The reference range was not used to interpret this result as normal/abnormal . RBC (test code = See_Comment [Automated 883-8) message] The system which generated this result transmit carrie reference range : 3.93 - 5.25 10*6/?L. The reference range was not used to interpret this result as normal/abnormal . HGB (test code = 14.1 g/dL 11.6-15 718-7) HCT (test code = 43.5 % 35.7-45.2 4544-3) MCV (test code = 91.4 fL 80.6-95.5 787-2) MCH (test code = 29.6 pg 25.9-32.8 785-6) MCHC (test code = 32.4 g/dL 31.6-35.1 786-4) RDW-SD (test code = 46.1 fL 39-49.9 35386-1) RDW-CV (test code = 13.6 % 12-15.5 788-0) PLT (test code = See_Comment [Automated 777-3) message] The system which generated this result transmit carrie reference range : 166 - 358 10*3/ ?L. The reference range was not u sed to interpret th is result as normal/abnormal . MPV (test code = 9.9 fL 9.5-12.9 11253-9) NRBC/100 WBC (test See_Comment [Automat ed code = 9233703190) message] The system which generated this result transmit carrie reference range : 0.0 - 10.0 /100 WBCs. The reference range was not used to interpret this result as normal/abnormal . NRBC x10^3 (test code <0.01 See_Comment [Auto mated = 1222243277) message] The system which generated this result transmit carrie reference range : 10*3/?L. The reference range was not used to interpret this result as normal/abnormal . GRAN MAT (NEUT) % 85.5 % (test code = 770-8) IMM GRAN % (test code 0.70 % = 3043358101) LYMPH % (test code = 9.6 % 736-9) MONO % (test code = 3.4 % 5905-5) EOS % (test code = 0.4 % 713-8) BASO % (test code = 0.4 % 706-2) GRAN MAT x10^3(ANC) 11.69 10*3/uL 1.88-7.09 H (test code = 8327320161) IMM GRAN x10^3 (test 0.10 10*3/uL 0-0.06 H code = 0958918702) LYMPH x10^3 (test code 1.32 10*3/uL 1.32-3.29 = 731-0) MONO x10^3 (test code 0.47 10*3/uL 0.33-0.92 = 742-7) EOS x10^3 (test code = 0.06 10*3/uL 0.03-0.39 711-2) BASO x10^3 (test code 0.06 10*3/uL 0.01-0.07 = 704-7) Lab Interpretation Abnormal (test code = 17591-2) [facility] Whole [id number] 14:16:00 Test Item Value Reference Range Interpretation Comments LACTIC ACID (test code = 3.50 mmol/L 5936225460) [facility] Metabolic Panel (NA, K, CL, CO2, GLUCOSE, BUN, CREATININE, CA)2020-05-22 07:14:00 Test Item Value Reference Range Interpretation Comments NA (test code = 138 mmol/L 135-145 9916945353) K (test code = 4.0 mmol/L 3.5-5 4509264467) CL (test code = 109 mmol/L 98-108 H 6332997961) CO2 TOTAL (test code = 25 mmol/L 23-31 5527670874) AGAP (test code = 2-16 9016217103) BUN (test code = 8 mg/dL 7-23 0152696962) GLUCOSE (test code = 95 mg/dL 70-110 7453837583) CREATININE (test code = 0.50 mg/dL 0.5-1.04 5670092262) CALCIUM (test code = 9.7 mg/dL 8.6-10.6 7318798157) eGFR Calculation mL/min/1.73m2 (Non-) (test code = 2811526627) eGFR Calculation mL/min/1.73m2 () (test code = 1284761689) THEODORA (test code = THEODORA) Association of Glomerular Filtration Rate (GFR) and Staging of Kidney Disease* + --+ --+ ------+| GFR (mL/min/1.73 m2) ?| With Kidney Damage ?| ?Without Kidney Damage+ --------+ --------+ +| ?>90 ?| ?Stage one ?| ? Normal ?+ ---+ ---+ -------+| ?60-89 ?| ?Stage two ?| ? Decreased GFR ? + --+ --+ ------+| ?30-59 ?| ?Stage three ?| ? Stage three ? + --+ --+ ------+| ?15-29 ?| ?Stage four ? | ? Stage four ?+ ---+ ---+ -------+| ?<15 (or dialysis) ? ?| ?Stage five ? | ? Stage five ?+ ---+ ---+ -------+ *Each stage assumes the associated GFR level has been in effect for at least three months. ?Stages 1 to 5, with or without kidney disease, indicate chronic kidney disease. Notes: Determination of stages one and two (with eGFR >59mL/min/1.73 m2) requires estimation of kidney damage for at least three months as defined by structural or functional abnormalities of the kidney, manifested by either:Pathological abnormalities or Markers of kidney damage (including abnormalities in the composition of the blood or urine or abnormalities in imaging tests). Lab Interpretation Abnormal (test code = 79179-8) [facility]2020-[facility]-10 06:58:00 Test Item Value Reference Range Interpretation Comments MAGNESIUM (test code = 6805617878) 2.2 mg/dL 1.7-2.4 Lab Interpretation (test code = Normal 34226-6) [facility]PHOS[facility]US2020-07-10 06:57:00 Test Item Value Reference Range Interpretation Comments PHOSPHORUS (test code = 3146281466) 2.8 mg/dL 2.5-5 Lab Interpretation (test code = Normal 37381-0) [facility] WITH [id number] 06:33:00 Test Item Value Reference Range Interpretation Comments WBC (test code = See_Comment [Automated message] 6690-2) The system [employer] generated this result transmitted ref erence range: 4.30 - 1 1.10 10*3/?L. The re ference range was not u sed to interpret this result as normal/abnor mal. RBC (test code = See_Comment [Automated message] 789-8) The system [employer] generated this result transmitted ref erence range: 3.93 - 5 .25 10*6/?L. The re ference range was not u sed to interpret this result as normal/abnor mal. HGB (test code = 12.3 g/dL 11.6-15 718-7) HCT (test code = 37.1 % 35.7-45.2 4544-3) MCV (test code = 89.0 fL 80.6-95.5 787-2) MCH (test code = 29.5 pg 25.9-32.8 785-6) MCHC (test code = 33.2 g/dL 31.6-35.1 786-4) RDW-SD (test code 49.1 fL 39-49.9 = 95362-6) RDW-CV (test code 14.9 % 12-15.5 = 788-0) PLT (test code = See_Comment [Automated message] 777-3) The system [employer] generated this result transmitted ref erence range: 166 - 35 8 10*3/?L. The re ference range was not u sed to interpret this result as normal/abnor mal. MPV (test code = 10.1 fL 9.5-12.9 96417-6) NRBC/100 WBC (test See_Comment [Automat ed message] code = 8968556556) The syste m which generated this result transmitted ref erence range: 0.0 - 10 .0 /100 WBCs. The refer ence range was not u sed to interpret this result as normal/abnor mal. NRBC x10^3 (test <0.01 See_Comment [Automated message] code = 5262992753) The syste m which generated this result transmitted ref erence range: 10*3/?L. The reference range was not used to interpr et this result as normal/abnormal . GRAN MAT (NEUT) % 52.7 % (test code = 770-8) IMM GRAN % (test 0.60 % code = 8677392717) LYMPH % (test code 31.6 % = 736-9) MONO % (test code 10.4 % = 5905-5) EOS % (test code = 4.0 % 713-8) BASO % (test code 0.7 % = 706-2) GRAN MAT 4.46 10*3/uL 1.88-7.09 x10^3(ANC) (test code = 0895551571) IMM GRAN x10^3 0.05 10*3/uL 0-0.06 (test code = 9722447578) LYMPH x10^3 (test 2.68 10*3/uL 1.32-3.29 code = 731-0) MONO x10^3 (test 0.88 10*3/uL 0.33-0.92 code = 742-7) EOS x10^3 (test 0.34 10*3/uL 0.03-0.39 code = 711-2) BASO x10^3 (test 0.06 10*3/uL 0.01-0.07 code = 704-7) [facility] Metabolic Panel (NA, K, CL, CO2, GLUCOSE, BUN, CREATININE, CA)2020-05-21 19:22:00 Test Item Value Reference Range Interpretation Comments NA (test code = 137 mmol/L 135-145 1481890821) K (test code = 2.9 mmol/L 3.5-5 LL 8894440208) CL (test code = 105 mmol/L 98-108 5929231939) CO2 TOTAL (test code = 25 mmol/L 23-31 9051156292) AGAP (test code = 2-16 9113862211) BUN (test code = 12 mg/dL 7-23 2825534514) GLUCOSE (test code = 127 mg/dL 70-110 H 2778318563) CREATININE (test code = 0.50 mg/dL 0.5-1.04 5301479079) CALCIUM (test code = 9.4 mg/dL 8.6-10.6 6179758494) eGFR Calculation mL/min/1.73m2 (Non-) (test code = 8670960727) eGFR Calculation mL/min/1.73m2 () (test code = 2586431231) THEODORA (test code = THEODORA) Association of Glomerular Filtration Rate (GFR) and Staging of Kidney Disease* + --+ --+ ------+| GFR (mL/min/1.73 m2) ?| With Kidney Damage ?| ?Without Kidney Damage+ --------+ --------+ +| ?>90 ?| ?Stage one ?| ? Normal ?+ ---+ ---+ -------+| ?60-89 ?| ?Stage two ?| ? Decreased GFR ? + --+ --+ ------+| ?30-59 ?| ?Stage three ?| ? Stage three ? + --+ --+ ------+| ?15-29 ?| ?Stage four ? | ? Stage four ?+ ---+ ---+ -------+| ?<15 (or dialysis) ? ?| ?Stage five ? | ? Stage five ?+ ---+ ---+ -------+ *Each stage assumes the associated GFR level has been in effect for at least three months. ?Stages 1 to 5, with or without kidney disease, indicate chronic kidney disease. Notes: Determination of stages one and two (with eGFR >59mL/min/1.73 m2) requires estimation of kidney damage for at least three months as defined by structural or functional abnormalities of the kidney, manifested by either:Pathological abnormalities or Markers of kidney damage (including abnormalities in the composition of the blood or urine or abnormalities in imaging tests). Lab Interpretation Abnormal (test code = 90417-8) [facility] Test Item Value Reference Range Interpretation Comments MAGNESIUM (test code = 7347806133) 2.6 mg/dL 1.7-2.4 H Lab Interpretation (test code = Abnormal 93974-0) [facility] CenterCOVID[facility] (ID NOW RAPID TESTING)2020-05-21 06:02:00 Test Item Value Reference Range Interpretation Comments SARS-CoV-2 Rapid ID NOW Not Detected Not Detected (test code = 75519-8) THEODORA (test code = THEODORA) ID NOW COVID-19 Assay is an isothermal nucleic acid amplification test intended for the qualitative detection of nucleic acid from SARS-CoV-2 viral RNA in nasopharyngeal ([employer]) specimens. It is used under Emergency Use Authorization (EUA) by FDA. The limit of detection (LOD) of the assay is 125 Genome Equivalents/mL. A positive result is indicative of the presence of SARS-CoV-2 RNA. ?Clinical correlation with patient history and other diagnostic information is necessary to determine patient infection status. A negative (Not Detected) result does not preclude SARS-CoV-2 infection. In patients with clinical symptoms and other tests that are consistent with SARS-CoV-2 infection, negative results should be treated as presumptive negative and a new specimen should be tested with alternative PCR molecular test. Invalid: Please collect a new specimen for repeat patient testing if clinically indicated. Lab Interpretation Normal (test code = 13142-8) [facility] 04:47:00 Test Item Value Reference Range Interpretation Comments MAGNESIUM (test code = 1.6 mg/dL 1.7-2.4 L Sligh t hemolysis 6845833551) Lab Interpretation (test Abnormal code = 98909-3) [facility]. METABOLIC PANEL (22403)2020-05-21 04:05:00 Test Item Value Reference Range Interpretation Comments NA (test code = 136 mmol/L 135-145 7391824564) K (test code = 2.9 mmol/L 3.5-5 LL 6227508394) CL (test code = 100 mmol/L 98-108 2989065046) CO2 TOTAL (test code = 22 mmol/L 23-31 L 1029954915) AGAP (test code = 2-16 8373271910) BUN (test code = 13 mg/dL 7-23 0632538274) GLUCOSE (test code = 101 mg/dL 70-110 7921844351) CREATININE (test code = 0.52 mg/dL 0.5-1.04 0551647169) TOTAL BILI (test code = 1.4 mg/dL 0.1-1.1 H 7910243542) CALCIUM (test code = 10.3 mg/dL 8.6-10.6 3666353036) T PROTEIN (test code = 8.3 g/dL 6.3-8.2 H 5703674678) ALBUMIN (test code = 4.6 g/dL 3.5-5 1286780923) ALK PHOS (test code = 83 U/L 34-122 2226757899) ALTv (test code = 14 U/L 5-35 1742-6) AST(SGOT) (test code = 28 U/L 13-40 2911561564) eGFR Calculation mL/min/1.73m2 (Non-) (test code = 0602284626) eGFR Calculation mL/min/1.73m2 () (test code = 0214638163) THEODORA (test code = THEODORA) Association of Glomerular Filtration Rate (GFR) and Staging of Kidney Disease* + --+ --+ ------+| GFR (mL/min/1.73 m2) ?| With Kidney Damage ?| ?Without Kidney Damage+ --------+ --------+ +| ?>90 ?| ?Stage one ?| ? Normal ?+ ---+ ---+ -------+| ?60-89 ?| ?Stage two ?| ? Decreased GFR ? + --+ --+ ------+| ?30-59 ?| ?Stage three ?| ? Stage three ? + --+ --+ ------+| ?15-29 ?| ?Stage four ? | ? Stage four ?+ ---+ ---+ -------+| ?<15 (or dialysis) ? ?| ?Stage five ? | ? Stage five ?+ ---+ ---+ -------+ *Each stage assumes the associated GFR level has been in effect for at least three months. ?Stages 1 to 5, with or without kidney disease, indicate chronic kidney disease. Notes: Determination of stages one and two (with eGFR >59mL/min/1.73 m2) requires estimation of kidney damage for at least three months as defined by structural or functional abnormalities of the kidney, manifested by either:Pathological abnormalities or Markers of kidney damage (including abnormalities in the composition of the blood or urine or abnormalities in imaging tests). Lab Interpretation Abnormal (test code = 98729-0) [facility] 03:51:00 Test Item Value Reference Range Interpretation Comments LIPASE (test code = 4491546312) 17 U/L 0-220 Lab Interpretation (test code = Normal 11828-2) [facility] WITH [id number] 03:39:00 Test Item Value Reference Range Interpretation Comments WBC (test code = See_Comment H [Automated 1755-2) message] The system which generated this result transmit carrie reference range : 4.30 - 11.10 10*3/?L. The reference range was not used to interpret this result as normal/abnormal . RBC (test code = See_Comment [Automated 790-3) message] The system which generated this result transmit carrie reference range : 3.93 - 5.25 10*6/?L. The reference range was not used to interpret this result as normal/abnormal . HGB (test code = 14.8 g/dL 11.6-15 718-7) HCT (test code = 42.9 % 35.7-45.2 4544-3) MCV (test code = 85.6 fL 80.6-95.5 787-2) MCH (test code = 29.5 pg 25.9-32.8 785-6) MCHC (test code = 34.5 g/dL 31.6-35.1 786-4) RDW-SD (test code = 45.1 fL 39-49.9 08682-4) RDW-CV (test code = 14.5 % 12-15.5 788-0) PLT (test code = See_Comment [Automated 777-3) message] The system which generated this result transmit carrie reference range : 166 - 358 10*3/ ?L. The reference range was not u sed to interpret th is result as normal/abnormal . MPV (test code = 10.4 fL 9.5-12.9 27473-2) NRBC/100 WBC (test See_Comment [Automat ed code = 3884933268) message] The system which generated this result transmit carrie reference range : 0.0 - 10.0 /100 WBCs. The reference range was not used to interpret this result as normal/abnormal . NRBC x10^3 (test code <0.01 See_Comment [Auto mated = 0413515496) message] The system which generated this result transmit carrie reference range : 10*3/?L. The reference range was not used to interpret this result as normal/abnormal . GRAN MAT (NEUT) % 89.5 % (test code = 770-8) IMM GRAN % (test code 0.80 % = 1925364763) LYMPH % (test code = 6.2 % 736-9) MONO % (test code = 2.9 % 5905-5) EOS % (test code = 0.1 % 713-8) BASO % (test code = 0.5 % 706-2) GRAN MAT x10^3(ANC) 11.85 10*3/uL 1.88-7.09 H (test code = 3792036436) IMM GRAN x10^3 (test 0.11 10*3/uL 0-0.06 H code = 6239560404) LYMPH x10^3 (test code 0.82 10*3/uL 1.32-3.29 L = 731-0) MONO x10^3 (test code 0.38 10*3/uL 0.33-0.92 = 742-7) EOS x10^3 (test code = <0.03 0.03-0.39 L 711-2) BASO x10^3 (test code 0.06 10*3/uL 0.01-0.07 = 704-7) Lab Interpretation Abnormal (test code = 52603-0) [facility] CenterMR [facility] CONTRAST [id number] 16:59:56HISTORY: Chronic pancreatitis. TECHNIQUE: MRI studies of the abdomen were obtained using T2 SSFSE, dualecho FSPGR, coronal VIBE/T2 HASTE, axial DWI, axial LAVA/T2 HASTEsequences. Multiple MRCP studies are also obtained. Multiphasecontrast-enhanced T1 fat-sat LAVA imaging was completed after intravenousinjection of 12 mL of MultiHance. FINDINGS: Normal anatomy is demonstrated of the common bile duct,pancreatic duct (both ductal Santorini as well as ventral duct of [place]) with single entranceinto papilla of Vater. There is no dilatationof the biliary duct or the pancreatic duct. No gallstones are seen. Liver, spleen, kidneys appear normal. Left adrenal gland lesion is seen without any specific MRI features. Rightadrenal gland lesion is smaller in size and is also poorly visualizedwithout any specific MRI features. No aortic aneurysm or enlarged lymphnodes in the retroperitoneum. No pleural effusion or pericardial effusionor free fluid in the upper abdomen. Visualized bones showed no abnormalmarrow signal. CONCLUSIONS:1. Mild diffuse atrophy of the pancreas noted, otherwise MRCP studies.2. 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 [facility], Radiant Results Inft User - 05/19/2020 12:01 PM CDTHISTORY: Chronic pancreatitis.TECHNIQUE: MRI studies of the abdomen were obtained using T2 SSFSE, dualecho FSPGR, coronal VIBE/T2 HASTE, axial DWI, axial LAVA/T2 HASTEsequences. Multiple MRCP studies are also obtained. Multiphasecontrast- enhanced T1 fat-sat LAVA imaging was completed after intravenousinjection of 12 mL of MultiHance.FINDINGS: Normal anatomy is demonstrated of the common bile duct,pancreatic duct (both ductal Santorini as well as ventral duct of [place]) with single entrance into papilla of Vater. There is no dilatationof the biliary duct or the pancreatic duct.No gallstones are seen.Liver, spleen,kidneys appear normal.Left adrenal gland lesion is seen without any specific MRI features. Rightadrenal gland lesion is smaller in size and is also poorly visualizedwithout any specific MRI features. No aortic aneurysm or enlarged lymphnodes in the retroperitoneum. No pleural effusion or pericardial effusionor free fluid in the upper abdomen. Visualized bones showed no abnormalmarrow signal.CONCLUSIONS:1. Mild diffuse atrophy of the pancreas noted, otherwise MRCP studies.2. 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 [facility]NM HE[facility] W [id number] 17:44:55 Normal hepatobiliary scintigraphy. 1. Prior cholecystectomy.2. No evidence of biliary obstruction or leak. IGanga MD., have reviewed this study and agree with the abovereport.EXAM DESCRIPTION: HEPATOBILIARY SCAN CLINICAL HISTORY: ?Nausea, vomiting Abdominal pain COMPARISON: None. Correlation with abdominal CT 04/05/2020 TECHNIQUE: The patient received an intravenous injection of 9.3 mCi technetium 99mmebrofenin and sequential images of the abdomen were obtained in the leftanterior oblique projection for one hour. The patient received an intravenous injection of 1.1 mcg CCK and dynamicimaging continued for one hour. FINDINGS: Gallbladder is visualized normally with filling noted at10 minutes. There is normal biliary to bowel transit. Gallbladder ejection fraction was 82%. [facility], Radiant Results Inft User - 05/18/2020 12:46 PM CDTEXAM DESCRIPTION: HEPATOBILIARY SCANCLINICAL HISTORY: Nausea, vomiting Abdominal painCOMPARISON: None. Correlation with abdominal CT 04/05/2020TECHNIQUE:The patient received an intravenous injection of 9.3 mCi technetium 99mmebrofenin and sequential images of the abdomen were obtained in the leftanterior oblique projection for one hour.The patient recei tate an intravenous injection of 1.1 mcg CCK and dynamicimaging continued for one hour.FINDINGS:Gallbladder is visualized normally with filling noted at 10 minutes. There is normal biliary to bowel transit. Gallbladder ejection fraction was 82%. IMPRESSIONNormal hepatobiliary scintigraphy.1. Prior cholecystectomy.2. No evidence of biliary obstruction or leak. I, Ganga Lee MD., have reviewed this study and agree with the abovereport.[facility] (NA, K, CL, CO2, GLUCOSE, BUN, CREATININE, CA) 2020-05-17 11:08:00 Test Item Value Reference Range Interpretation Comments NA (test code = 141 mmol/L 135-145 8975522676) K (test code = 4.0 mmol/L 3.5-5 7419755539) CL (test code = 113 mmol/L 98-108 H 6525197033) CO2 TOTAL (test code = 23 mmol/L 23-31 9187921200) AGAP (test code = 2-16 9552933219) BUN (test code = 11 mg/dL 7-23 2800129759) GLUCOSE (test code = 86 mg/dL 70-110 7397478724) CREATININE (test code = 0.59 mg/dL 0.5-1.04 5802294360) CALCIUM (test code = 10.3 mg/dL 8.6-10.6 6049374656) eGFR Calculation mL/min/1.73m2 (Non-) (test code = 3385802934) eGFR Calculation mL/min/1.73m2 () (test code = 9438028349) THEODORA (test code = THEODORA) Association of Glomerular Filtration Rate (GFR) and Staging of Kidney Disease* + --+ --+ ------+| GFR (mL/min/1.73 m2) ?| With Kidney Damage ?| ?Without Kidney Damage+ --------+ --------+ +| ?>90 ?| ?Stage one ?| ? Normal ?+ ---+ ---+ -------+| ?60-89 ?| ?Stage two ?| ? Decreased GFR ? + --+ --+ ------+| ?30-59 ?| ?Stage three ?| ? Stage three ? + --+ --+ ------+| ?15-29 ?| ?Stage four ? | ? Stage four ?+ ---+ ---+ -------+| ?<15 (or dialysis) ? ?| ?Stage five ? | ? Stage five ?+ ---+ ---+ -------+ *Each stage assumes the associated GFR level has been in effect for at least three months. ?Stages 1 to 5, with or without kidney disease, indicate chronic kidney disease. Notes: Determination of stages one and two (with eGFR >59mL/min/1.73 m2) requires estimation of kidney damage for at least three months as defined by structural or functional abnormalities of the kidney, manifested by either:Pathological abnormalities or Markers of kidney damage (including abnormalities in the composition of the blood or urine or abnormalities in imaging tests). Lab Interpretation Abnormal (test code = 01861-9) [facility] WITH [id number] 10:19:00 Test Item Value Reference Range Interpretation Comments WBC (test code = See_Comment [Automated 8390-2) message] The sy stem which generated this result transmitted reference range : 4.30 - 11.10 10*3/?L. The reference range was not used to interpret this result as normal/abnormal . RBC (test code = See_Comment [Automated 979-8) message] The sy stem which generated this result transmitted reference range : 3.93 - 5.25 10*6/?L. The reference range was not used to interpret this result as normal/abnormal . HGB (test code = 13.7 g/dL 11.6-15 718-7) HCT (test code = 43.0 % 35.7-45.2 4544-3) MCV (test code = 91.5 fL 80.6-95.5 787-2) MCH (test code = 29.1 pg 25.9-32.8 785-6) MCHC (test code = 31.9 g/dL 31.6-35.1 786-4) RDW-SD (test code = 54.3 fL 39-49.9 H 40338-7) RDW-CV (test code = 16.0 % 12-15.5 H 788-0) PLT (test code = See_Comment [Automated 777-3) message] The sy stem which generated this result transmitted reference range : 166 - 358 10*3/ ?L. The reference r cayden was not used to interpret this result as normal/abnormal . MPV (test code = 10.8 fL 9.5-12.9 14334-0) NRBC/100 WBC (test See_Comment [Automat ed code = 4431269334) message] The system which generated this result transmitted reference range : 0.0 - 10.0 /100 WBCs. The refer ence range was not u sed to interpret th is result as normal/abnormal . NRBC x10^3 (test code <0.01 See_Comment [Auto mated = 4060697297) message] The s ystem which generated this result transmitted reference range : 10*3/?L. The reference range was not used to interpret this result as normal/abnormal . GRAN MAT (NEUT) % 56.9 % (test code = 770-8) IMM GRAN % (test code 0.60 % = 8696734066) LYMPH % (test code = 32.7 % 736-9) MONO % (test code = 7.2 % 5905-5) EOS % (test code = 1.7 % 713-8) BASO % (test code = 0.9 % 706-2) GRAN MAT x10^3(ANC) 5.45 10*3/uL 1.88-7.09 (test code = 4829749328) IMM GRAN x10^3 (test 0.06 10*3/uL 0-0.06 code = 8144630389) LYMPH x10^3 (test code 3.13 10*3/uL 1.32-3.29 = 731-0) MONO x10^3 (test code 0.69 10*3/uL 0.33-0.92 = 742-7) EOS x10^3 (test code = 0.16 10*3/uL 0.03-0.39 711-2) BASO x10^3 (test code 0.09 10*3/uL 0.01-0.07 H = 704-7) Lab Interpretation Abnormal (test code = 48376-5) [facility] CenterXR [id number] 13:32:31 No acute intra- abdominal findings. Preliminary Report Dictated by Resident: Lamin Cotton MD., have reviewed this study and agree withthe above report.EXAM: XR KUB HISTORY: n/v COMPARISON: 03/02/2020.. FINDINGS: The bowel gas pattern is unremarkable. No abnormal calcifications or radiopaque stones are identified. No acutebony abnormalities are noted. Left hip intramedullary pin partialvisualized. [facility], Radiant Results Inft User - 05/16/2020 8:33AM CDTEXAM: XR KUBHISTORY: n/v COMPARISON: 03/02/2020..FINDINGS:The bowel gas pattern is unremarkable. No abnormal calcifications or radiopaque stones are identified. No acutebony abnormalities are noted. Left hip intramedullary pin partialvisualized.IMPRESSIONNo acute intra-abdominal findings.Preliminary Report Dictated by Resident: Siddharth Sewell, Lamin Salas MD., have reviewed this study and agree withthe above report.[facility] / [facility] - DRUG SCREEN [id number] 07:34:00 Test Item Value Reference Range Interpretation Comments BENZO U (test code = Presumptive Negative A 1117775441) Positive KOTA U (test code = Negative Negative 4087996462) AMPHET (test code = Negative Negative 5495652454) THC (test code = Presumptive Negative A Confirmatio n of 1733192147) Positive Presumptive Positive THC result requires physician order . METHADONE (test code Negative Negative = 7910238116) Meth U (test code = Negative Negative 4576943228) OPIATES (test code = Negative Negative 1029115549) Cocaine Metabolite Negative Negative (test code = 9133861467) PROPOXY (test code = Negative Negative 6707283746) Tric U (test code = Negative Negative 9959482000) PCP (test code = Negative Negative 1328910394) OXYCOD (test code = Negative Negative 3413905901) THEODORA (test code = Urine Drug Cutoff THEODORA) Ranges Benzodiazepines: ? ? 150 ng/mLBarbiturates : ?200 ng/mLAmphetamine: ? 500 ng/mLCannabinoids : ?50 ?ng/mLMethadone: ? 200 ng/mLMethamphetam ine: ? ? 500 ng/mL Opiates: ? 100 ng/mL or 2000 ng/mLCocaine: ? 150 ng/mLPropoxyphene : ?300 ng/mLTricyclics: ?300 ng/mLOxycodone: ? 100 ng/mLPCP: ? 25 ?ng/mL The results are to be used only for medical (i.e., treatment) purposes. Unconfirmed screening results must not be used for non-medical purposes (e.g., employment testing, legal testing). Lab Interpretation Abnormal (test code = 86343-6) [facility]OVID[facility] ([facility] NOW [facility]ID TESTING)2020-05-16 05:44:00 Test Item Value Reference Range Interpretation Comments SARS-CoV-2 Rapid ID NOW Not Detected Not Detected (test code = 30285-8) THEODORA (test code = THEODORA) ID NOW COVID-19 Assay is an isothermal nucleic acid amplification test intended for the qualitative detection of nucleic acid from SARS-CoV-2 viral RNA in nasopharyngeal (EVENT PLANNING INTERN) specimens. It is used under Emergency Use Authorization (EUA) by FDA. The limit of detection (LOD) of the assay is 125 Genome Equivalents/mL. A positive result is indicative of the presence of SARS-CoV-2 RNA. ?Clinical correlation with patient history and other diagnostic information is necessary to determine patient infection status. A negative (Not Detected) result does not preclude SARS-CoV-2 infection. In patients with clinical symptoms and other tests that are consistent with SARS-CoV-2 infection, negative results should be treated as presumptive negative and a new specimen should be tested with alternative PCR molecular test. Invalid: Please collect a new specimen for repeat patient testing if clinically indicated. Lab Interpretation Normal (test code = 48432-1) [facility] CenterUrinalysis2020-07-04 05:21:00 Test Item Value Reference Range Interpretation Comments APPEARANCE (test code = Hazy Clear A 5951674249) COLOR (test code = Yellow Yellow 9637986495) PH (test code = 4.8-8.0 0818637085) SP GRAVITY (test code = 1.003-1.030 0392935776) GLU U QUAL (test code = 50 mg/dL Normal A 9213749413) BLOOD (test code = Negative Negative 8708661406) KETONES (test code = 20 mg/dL Negative A 4977910442) PROTEIN (test code = Negative Negative 2887-8) UROBILIN (test code = Normal Normal 8882611375) BILIRUBIN (test code = Negative Negative 9873558640) NITRITE (test code = Negative Negative 1212078435) LEUK BIRDIE (test code = Negative Negative 9909022959) RBC/HPF (test code = See_Comment H [Autom ated message] 6257581759) The system [employer] generated this result transmitted ref erence range: 0 - 3 HP F. The reference range was not used to int erpret this result as normal/abnormal . WBC/HPF (test code = See_Comment [Autom ated message] 3162219935) The system [employer] generated this result transmitted ref erence range: 0 - 5 HP F. The reference range was not used to int erpret this result as normal/abnormal . BACTERIA (test code = Few Negative A 2423288886) MUCOUS (test code = Moderate Negative LPF A 7055376025) SQ EPITH (test code = HPF 7429405625) Lab Interpretation (test Abnormal code = 01320-1) [facility] Metabolic Panel (NA, K, CL, CO2, GLUCOSE, BUN, CREATININE, CA)2020-05-16 02:56:00 Test Item Value Reference Range Interpretation Comments NA (test code = 138 mmol/L 135-145 5503037025) K (test code = 3.4 mmol/L 3.5-5 L 3222055581) CL (test code = 106 mmol/L 98-108 6921925057) CO2 TOTAL (test code = 22 mmol/L 23-31 L 3676774625) AGAP (test code = 2-16 0623180627) BUN (test code = 21 mg/dL 7-23 6043385932) GLUCOSE (test code = 164 mg/dL 70-110 H 1899150202) CREATININE (test code = 0.59 mg/dL 0.5-1.04 3243520508) CALCIUM (test code = 11.2 mg/dL 8.6-10.6 H 4581852040) eGFR Calculation mL/min/1.73m2 (Non-) (test code = 4702331874) eGFR Calculation mL/min/1.73m2 () (test code = 0907472128) THEODORA (test code = THEODORA) Association of Glomerular Filtration Rate (GFR) and Staging of Kidney Disease* + --+ --+ ------+| GFR (mL/min/1.73 m2) ?| With Kidney Damage ?| ?Without Kidney Damage+ --------+ --------+ +| ?>90 ?| ?Stage one ?| ? Normal ?+ ---+ ---+ -------+| ?60-89 ?| ?Stage two ?| ? Decreased GFR ? + --+ --+ ------+| ?30-59 ?| ?Stage three ?| ? Stage three ? + --+ --+ ------+| ?15-29 ?| ?Stage four ? | ? Stage four ?+ ---+ ---+ -------+| ?<15 (or dialysis) ? ?| ?Stage five ? | ? Stage five ?+ ---+ ---+ -------+ *Each stage assumes the associated GFR level has been in effect for at least three months. ?Stages 1 to 5, with or without kidney disease, indicate chronic kidney disease. Notes: Determination of stages one and two (with eGFR >59mL/min/1.73 m2) requires estimation of kidney damage for at least three months as defined by structural or functional abnormalities of the kidney, manifested by either:Pathological abnormalities or Markers of kidney damage (including abnormalities in the composition of the blood or urine or abnormalities in imaging tests). Lab Interpretation Abnormal (test code = 15606-0) [facility] CenterHepatic Function Panel (ALB, T.PRO, BILI T, BU/BC, ALT, AST, ALK PHOS)2020-05-16 02:56:00 Test Item Value Reference Range Interpretation Comments TOTAL BILI (test code = 1038125123) 0.9 mg/dL 0.1-1.1 BILI UNCON (test code = 2051910482) 1.0 mg/dL 0.1-1.1 BILI CONJ (test code = 3108490279) 0.0 mg/dL 0-0.3 T PROTEIN (test code = 1845048003) 8.3 g/dL 6.3-8.2 H ALBUMIN (test code = 1877279540) 4.6 g/dL 3.5-5 ALK PHOS (test code = 5731185981) 102 U/L 34-122 ALTv (test code = 1742-6) 19 U/L 5-35 AST(SGOT) (test code = 6057225062) 29 U/L 13-40 Lab Interpretation (test code = Abnormal 57273-4) [facility] CenterLipase [id number] 02:56:00 Test Item Value Reference Range Interpretation Comments LIPASE (test code = 3401395412) 29 U/L 0-220 Lab Interpretation (test code = Normal 98608-1) [facility] CenterCBC WITH [id number] 02:41:00 Test Item Value Reference Range Interpretation Comments WBC (test code = See_Comment H [Automated 6690-2) message] The system which generated this result transmit carrie reference range : 4.30 - 11.10 10*3/?L. The reference range was not used to interpret this result as normal/abnormal . RBC (test code = See_Comment [Automated 789-8) message] The system which generated this result transmit carrie reference range : 3.93 - 5.25 10*6/?L. The reference range was not used to interpret this result as normal/abnormal . HGB (test code = 14.6 g/dL 11.6-15 718-7) HCT (test code = 43.3 % 35.7-45.2 4544-3) MCV (test code = 86.3 fL 80.6-95.5 787-2) MCH (test code = 29.1 pg 25.9-32.8 785-6) MCHC (test code = 33.7 g/dL 31.6-35.1 786-4) RDW-SD (test code = 46.8 fL 39-49.9 85119-8) RDW-CV (test code = 14.9 % 12-15.5 788-0) PLT (test code = See_Comment [Automated 777-3) message] The system which generated this result transmit carrie reference range : 166 - 358 10*3/ ?L. The reference range was not u sed to interpret th is result as normal/abnormal . MPV (test code = 10.1 fL 9.5-12.9 61965-0) NRBC/100 WBC (test See_Comment [Automat ed code = 9544318051) message] The system which generated this result transmit carrie reference range : 0.0 - 10.0 /100 WBCs. The reference range was not used to interpret this result as normal/abnormal . NRBC x10^3 (test code <0.01 See_Comment [Auto mated = 8593481528) message] The system which generated this result transmit carrie reference range : 10*3/?L. The reference range was not used to interpret this result as normal/abnormal . GRAN MAT (NEUT) % 90.5 % (test code = 770-8) IMM GRAN % (test code 0.60 % = 6681197062) LYMPH % (test code = 6.4 % 736-9) MONO % (test code = 2.2 % 5905-5) EOS % (test code = 0.0 % 713-8) BASO % (test code = 0.3 % 706-2) GRAN MAT x10^3(ANC) 15.84 10*3/uL 1.88-7.09 H (test code = 4009515031) IMM GRAN x10^3 (test 0.10 10*3/uL 0-0.06 H code = 9200378269) LYMPH x10^3 (test code 1.12 10*3/uL 1.32-3.29 L = 731-0) MONO x10^3 (test code 0.38 10*3/uL 0.33-0.92 = 742-7) EOS x10^3 (test code = <0.03 0.03-0.39 L 711-2) BASO x10^3 (test code 0.05 10*3/uL 0.01-0.07 = 704-7) Lab Interpretation Abnormal (test code = 98729-3) [facility] METABOLIC PANEL (NA, K, CL, CO2, GLUCOSE, BUN, CREATININE, CA)2020-04-07 10:06:00 Test Item Value Reference Range Interpretation Comments NA (test code = 139 mmol/L 135-145 5165126153) K (test code = 3.4 mmol/L 3.5-5 L 7263922366) CL (test code = 104 mmol/L 98-108 5874890905) CO2 TOTAL (test code = 25 mmol/L 23-31 8331800124) AGAP (test code = 2-16 5087145335) BUN (test code = 11 mg/dL 7-23 1319240901) GLUCOSE (test code = 113 mg/dL 70-110 H 3625287231) CREATININE (test code = 0.44 mg/dL 0.5-1.04 L 2907445768) CALCIUM (test code = 10.0 mg/dL 8.6-10.6 9209430129) eGFR Calculation mL/min/1.73m2 (Non-) (test code = 1011444924) eGFR Calculation mL/min/1.73m2 () (test code = 6512279751) THEODORA (test code = THEODORA) Association of Glomerular Filtration Rate (GFR) and Staging of Kidney Disease* + --+ --+ ------+| GFR (mL/min/1.73 m2) ?| With Kidney Damage ?| ?Without Kidney Damage+ --------+ --------+ +| ?>90 ?| ?Stage one ?| ? Normal ?+ ---+ ---+ -------+| ?60-89 ?| ?Stage two ?| ? Decreased GFR ? + --+ --+ ------+| ?30-59 ?| ?Stage three ?| ? Stage three ? + --+ --+ ------+| ?15-29 ?| ?Stage four ? | ? Stage four ?+ ---+ ---+ -------+| ?<15 (or dialysis) ? ?| ?Stage five ? | ? Stage five ?+ ---+ ---+ -------+ *Each stage assumes the associated GFR level has been in effect for at least three months. ?Stages 1 to 5, with or without kidney disease, indicate chronic kidney disease. Notes: Determination of stages one and two (with eGFR >59mL/min/1.73 m2) requires estimation of kidney damage for at least three months as defined by structural or functional abnormalities of the kidney, manifested by either:Pathological abnormalities or Markers of kidney damage (including abnormalities in the composition of the blood or urine or abnormalities in imaging tests). Lab Interpretation Abnormal (test code = 63067-9) [facility] WITH [id number] 09:38:00 Test Item Value Reference Range Interpretation Comments WBC (test code = See_Comment H [Automated 6690-2) message] The system which generated this result transmit carrie reference range : 4.30 - 11.10 10*3/?L. The reference range was not used to interpret this result as normal/abnormal . RBC (test code = See_Comment [Automated 789-8) message] The system which generated this result transmit carrie reference range : 3.93 - 5.25 10*6/?L. The reference range was not used to interpret this result as normal/abnormal . HGB (test code = 13.6 g/dL 11.6-15 718-7) HCT (test code = 41.3 % 35.7-45.2 4544-3) MCV (test code = 88.4 fL 80.6-95.5 787-2) MCH (test code = 29.1 pg 25.9-32.8 785-6) MCHC (test code = 32.9 g/dL 31.6-35.1 786-4) RDW-SD (test code = 47.5 fL 39-49.9 10216-2) RDW-CV (test code = 14.8 % 12-15.5 788-0) PLT (test code = See_Comment [Automated 777-3) message] The system which generated this result transmit carrie reference range : 166 - 358 10*3/ ?L. The reference range was not u sed to interpret th is result as normal/abnormal . MPV (test code = 11.0 fL 9.5-12.9 57562-4) NRBC/100 WBC (test See_Comment [Automat ed code = 9031610676) message] The system which generated this result transmit carrie reference range : 0.0 - 10.0 /100 WBCs. The reference range was not used to interpret this result as normal/abnormal . NRBC x10^3 (test code <0.01 See_Comment [Auto mated = 6917401486) message] The system which generated this result transmit carrie reference range : 10*3/?L. The reference range was not used to interpret this result as normal/abnormal . GRAN MAT (NEUT) % 83.9 % (test code = 770-8) IMM GRAN % (test code 0.60 % = 8335987080) LYMPH % (test code = 10.0 % 736-9) MONO % (test code = 5.1 % 5905-5) EOS % (test code = 0.0 % 713-8) BASO % (test code = 0.4 % 706-2) GRAN MAT x10^3(ANC) 10.44 10*3/uL 1.88-7.09 H (test code = 3137789203) IMM GRAN x10^3 (test 0.07 10*3/uL 0-0.06 H code = 2965673712) LYMPH x10^3 (test code 1.25 10*3/uL 1.32-3.29 L = 731-0) MONO x10^3 (test code 0.63 10*3/uL 0.33-0.92 = 742-7) EOS x10^3 (test code = <0.03 0.03-0.39 L 711-2) BASO x10^3 (test code 0.05 10*3/uL 0.01-0.07 = 704-7) Lab Interpretation Abnormal (test code = 13215-3) [facility])2020-04-06 16:49:00 Test Item Value Reference Range Interpretation Comments POCT GLU (test code = 9596822357) 114 mg/dL 70-110 H Lab Interpretation (test code = Abnormal 22547-1) [facility] CenterUS GALL [id number] 14:42:32 No cholelithiasis or sonographic evidence of cholecystitis. Preliminary Report Dictated by Resident: Rey Pierce ?MD Esther., have reviewed this study and agree with the abovereport.US GALL BLADDER HISTORY: 44 years-old; Female; N/V COMPARISON: Abdominopelvic CT 04/05/2020 FINDINGS: LIVER: The liver is normal in size and measures 15 cm. Normal echotexture,echogenicity, and contour No focal hepatic lesion. ?Hepatopetal ?flowwithin the main portal vein. GALLBLADDER: There is no cholelithiasis, wall thickening (3 mm),gallbladder distention, or pericholecystic fluid. Negative sonographicMurphy's sign. ?The common bile duct measures 4 mm. PANCREAS: Incompletely visualized due to overlyi ng bowel gas. RIGHT KIDNEY: The partially visualized right kidney is unremarkable. [facility], Radiant Results Inft User - 04/06/2020 9:43 AM CDTUS GALL BLADDER HISTORY: 44 years-old; Female; N/V COMPARISON: Abdominopelvic CT 04/05/2020 FINDINGS: LIVER: The liver is normal in size and measures 15 cm. Normal echotexture,echogenicity, and contour No focal hepatic lesion. Hepatopetal flowwithin the main portal vein. GALLBLADDER: There is no cholelithiasis, wall thickening (3 mm),gallbladder distention, or pericholecystic fluid. Negative sonographicMurphy's sign. The common bile duct measures 4 mm.PANCREAS: Incompletely visualized due to overlying bowel gas.RIGHT KIDNEY: The partially visualized right kidney is unremarkable.IMPRESSIONNo cholelithiasis or sonographic evidence of cholecystitis.Preliminary Report Dictated by Resident: Marisel Phipps, Rey Santana MD., have reviewed this study and agree with the abovereport.[facility] (NA, K, CL, CO2, GLUCOSE, BUN, CREATININE, CA)2020-04-06 10:17:00 Test Item Value Reference Range Interpretation Comments NA (test code = 139 mmol/L 135-145 9184382443) K (test code = 3.2 mmol/L 3.5-5 L 3942550241) CL (test code = 106 mmol/L 98-108 4158947173) CO2 TOTAL (test code = 22 mmol/L 23-31 L 5301242903) AGAP (test code = 2-16 9094553045) BUN (test code = 12 mg/dL 7-23 2403014310) GLUCOSE (test code = 115 mg/dL 70-110 H 7142666762) CREATININE (test code = 0.43 mg/dL 0.5-1.04 L 8467341422) CALCIUM (test code = 9.9 mg/dL 8.6-10.6 9805967166) eGFR Calculation mL/min/1.73m2 (Non-) (test code = 2858591501) eGFR Calculation mL/min/1.73m2 () (test code = 4938058499) THEODORA (test code = THEODORA) Association of Glomerular Filtration Rate (GFR) and Staging of Kidney Disease* + --+ --+ ------+| GFR (mL/min/1.73 m2) ?| With Kidney Damage ?| ?Without Kidney Damage+ --------+ --------+ +| ?>90 ?| ?Stage one ?| ? Normal ?+ ---+ ---+ -------+| ?60-89 ?| ?Stage two ?| ? Decreased GFR ? + --+ --+ ------+| ?30-59 ?| ?Stage three ?| ? Stage three ? + --+ --+ ------+| ?15-29 ?| ?Stage four ? | ? Stage four ?+ ---+ ---+ -------+| ?<15 (or dialysis) ? ?| ?Stage five ? | ? Stage five ?+ ---+ ---+ -------+ *Each stage assumes the associated GFR level has been in effect for at least three months. ?Stages 1 to 5, with or without kidney disease, indicate chronic kidney disease. Notes: Determination of stages one and two (with eGFR >59mL/min/1.73 m2) requires estimation of kidney damage for at least three months as defined by structural or functional abnormalities of the kidney, manifested by either:Pathological abnormalities or Markers of kidney damage (including abnormalities in the composition of the blood or urine or abnormalities in imaging tests). Lab Interpretation Abnormal (test code = 92381-7) [facility] CenterCOVID[facility] (ID NOW RAPID TESTING)2020-04-06 00:45:00 Test Item Value Reference Range Interpretation Comments SARS-CoV-2 Rapid ID NOW Not Detected Not Detected (test code = 93746-1) THEODORA (test code = THEODORA) ID NOW COVID-19 Assay is an isothermal nucleic acid amplification test intended for the qualitative detection of nucleic acid from SARS-CoV-2 viral RNA in nasopharyngeal (EVENT PLANNING INTERN) specimens. It is used under Emergency Use Authorization (EUA) by FDA. The limit of detection (LOD) of the assay is 125 Genome Equivalents/mL. A positive result is indicative of the presence of SARS-CoV-2 RNA. ?Clinical correlation with patient history and other diagnostic information is necessary to determine patient infection status. A negative (Not Detected) result does not preclude SARS-CoV-2 infection. In patients with clinical symptoms and other tests that are consistent with SARS-CoV-2 infection, negative results should be treated as presumptive negative and a new specimen should be tested with alternative PCR molecular test. Invalid: Please collect a new specimen for repeat patient testing if clinically indicated. Lab Interpretation Normal (test code = 58228-1) [facility] CenterCT [facility]BD[facility] PEL[facility] W [id number] 00:41:36 No acute intra-abdominal or pelvic abnormality. Colonic diverticulosis. Marked descending and sigmoid colon circumferentialwall thickening results in significant luminal narrowing. These findingsremain similar to most recent comparison CT dated 03/03/2020. This may beseen with colitis. Stable scattered nodular densities through the peritoneal cavity. Indeterminate bilateral 1.4 cm adrenal nodules. Hepatosteatosis. Preliminary Report Dictated by Resident: Lamin Landrum ?MD Josue., have reviewed this study and agree withthe above report.EXAM: CT ABDOMEN AND PELVIS WITH CONTRAST HISTORY: 44-year-old female with "abdominal pain, fever, abscesssuspected". Pathology for peritoneal implant biopsy resulted no malignancy.Colonoscopy performed February 2020 resulted in no findings to suggestmalignancy. COMPARISON: CT abdomen and pelvis with contrast 03/03/2020. DOSE: 258mGycm TECHNIQUE AND FINDINGS: Contiguous axial imaging from the level of the lungbases through the pubic symphysis was performed after the uncomplicatedadministration of 120 cc of intravenous Omnipaque contrast. Coronal andsagittal reconstructions were obtained. ?Auto mA and/or iterativereconstruction were used toreduce radiation dose. FINDINGS: LOWER THORAX: The lungs bases are clear. No cardiomegaly. LIVER: Diffuse hypoattenuation of the liver is seen. Normal contour. Nofocal hepatic lesions. ?Normal contour.GALLBLADDER AND BILIARY TREE: No biliary ductal dilation. ?No gallbladderwall thickening. SPLEEN: Nosplenomegaly. PANCREAS: No ductal dilation or mass. ADRENAL GLANDS: Heterogeneous bilateral adrenal gland lesions measuring 1.4cm are seen. KIDNEYS: No hydronephrosis, stones, or masses. PERITONEUM ANDRETROPERITONEUM: No free air or fluid. Multiple scattered soft tissue densities are noted along the peritonealcavity, for example:-Inferior to the pancreatic tail, measuring approximately 3.9 x 3.1 cm,unchanged.-Left paracolic gutter, measuring 2.3 cm in AP dimension, previously 2.5cm.-Right paracolicgutter measuring 3.6 cm, unchanged. LYMPH NODES: No enlarged abdominal or pelvic lymph nodes are seen. ?0.7 cmpericolonic lymph node is seen (2:76). GI TRACT: No dilation or wall thickening. Normal appendix (2:90).Descending and sigmoid diverticulosis. Marked circumferential wallthickening of the descending and proximal sigmoid colon (4:42), similar tomost recent comparison CT dated 03/03/2020.. PELVIS/BLADDER: The urinary bladder is mildly distended without wallthickening. The uterus and ovaries areunremarkable. Small volume fluid inthe dependent portion of the pelvis, likely physiologic. VESSELS:Unremarkable. BONES AND SOFT TISSUES: No suspicious lytic or sclerotic bony lesions.Intramedullary nail fixation of the left femur is partially visualized. [facility], Radiant Results Inft User - 04/05/20207:42 PM CDTEXAM: CT ABDOMEN AND PELVIS WITH CONTRASTHISTORY: 44-year-old female with "abdominal pain, fever, abscesssuspected". Pathology for peritoneal implant biopsy resulted no malignancy.Colonoscopy performed February 2020 resulted in no findings to suggestmalignancy.COMPARISON: CT abdomen and pelviswith contrast 03/03/2020.DOSE: 258mGycmTECHNIQUE AND FINDINGS: Contiguous axial imaging from the level of the lungbases through the pubic symphysis was performed after the uncomplicatedadministration of120 cc of intravenous Omnipaque contrast. Coronal andsagittal reconstructions were obtained. Auto mA and/or iterativereconstruction were used to reduce radiation dose.FINDINGS:LOWER THORAX: The lungs bases are clear. No cardiomegaly.LIVER: Diffuse hypoattenuation of the liver is seen. Normal contour.Nofocal hepatic lesions. Normal contour.GALLBLADDER AND BILIARY TREE: No biliary ductal dilation. No gallbladderwall thickening.SPLEEN: No splenomegaly.PANCREAS: No ductal dilation or mass.ADRENAL GLANDS: Heterogeneous bilateral adrenal gland lesions measuring 1.4cm are seen.KIDNEYS: No hydronephrosis, stones, or masses.PERITONEUM AND RETROPERITONEUM: No free air or fluid.Multiple scattered soft tissue densities are noted along the peritonealcavity, for example:-Inferior to the pancreatic tail, measuring approximately 3.9 x 3.1 cm,unchanged.-Left paracolic gutter, measuring 2.3 cm in AP dimension, previously 2.5cm.-Right paracolic gutter measuring 3.6 cm, unchanged.LYMPH NODES: No enlarged abdominal or pelvic lymph nodes are seen. 0.7 cmpericolonic lymph node is seen (2:76).GI TRACT: No dilation or wall thickening. Normal appendix (2:90).Descending and sigmoid diverticulosis. Marked circumferential wallthickening of the descending and proximal sigmoid colon (4:42), similar tomost recent comparison CT dated 03/03/2020..PELVIS/BLADDER: The urinary bladder is mildly distended without wallthickening. The uterus and ovaries are unremarkable. Small volume fluid inthe dependent portion of the pelvis, likely physiologic.VESSELS: Unremarkable.BONES AND SOFT TISSUES: No suspicious lytic or scleroticbony lesions.Intramedullary nail fixation of the left femur is partially visualized.IMPRESSIONNo acute intra-abdominal or pelvic abnormality.Colonic diverticulosis. Marked descending and sigmoid colon circumferentialwall thickening results in significant luminal narrowing. These findingsremain similarto most recent comparison CT dated 03/03/2020. This may beseen with colitis. Stable scattered nodulardensities through the peritoneal cavity.Indeterminate bilateral 1.4 cm adrenal nodules.Hepatosteatosi s.Preliminary Report Dictated by Resident: Jasen Schuler, Lamin Salas MD., have reviewed this study and agree withthe above report. [facility] 23:31:00 Test Item Value Reference Range Interpretation Comments APPEARANCE (test code = Clear Clear 6254305977) COLOR (test code = Yellow Yellow 8494747508) PH (test code = 4.8-8.0 0083435352) SP GRAVITY (test code = 1.003-1.030 5802059799) GLU U QUAL (test code = 50 mg/dL Normal A 3927439206) BLOOD (test code = Negative Negative 2225663619) KETONES (test code = 80 mg/dL Negative A 9602117589) PROTEIN (test code = Negative Negative 2887-8) UROBILIN (test code = Normal Normal 8054817213) BILIRUBIN (test code = Negative Negative 1739849585) NITRITE (test code = Negative Negative 1152643025) LEUK BIRDIE (test code = Negative Negative 4824086313) RBC/HPF (test code = See_Comment [Autom ated message] 4049602170) The system [employer] generated this result transmitted ref erence range: 0 - 3 HP F. The reference range was not used to int erpret this result as normal/abnormal . WBC/HPF (test code = <1 See_Comment [Autom ated message] 3678465224) The system [employer] generated this result transmitted ref erence range: 0 - 5 HP F. The reference range was not used to int erpret this result as normal/abnormal . BACTERIA (test code = Few Negative A 1316750198) MUCOUS (test code = Slight Negative LPF A 2294060502) SQ EPITH (test code = HPF 8685784542) HYAL CAST (test code = See_Comment [Aut omated message] 7229349739) The system [employer] generated this result transmitted ref erence range: <=2 LPF. The reference range was not used to int erpret this result as normal/abnormal . Lab Interpretation (test Abnormal code = 47251-9) [facility] / [facility] - DRUG SCREEN [id number] 23:25:00 Test Item Value Reference Range Interpretation Comments BENZO U (test code = Negative Negative 5847726685) KOTA U (test code = Negative Negative 0858443152) AMPHET (test code = Negative Negative 1436514974) THC (test code = Presumptive Negative A Confirmatio n of 5407725044) Positive Presumptive Positive THC result requires physician order . METHADONE (test code Negative Negative = 6860229164) Meth U (test code = Negative Negative 2206271899) OPIATES (test code = Presumptive Negative A 2688879873) Positive Cocaine Metabolite Negative Negative (test code = 4079627141) PROPOXY (test code = Negative Negative 9946579905) Tric U (test code = Negative Negative 5958563533) PCP (test code = Negative Negative 4837581010) OXYCOD (test code = Negative Negative 7780683860) THEODORA (test code = Urine Drug Cutoff THEODORA) Ranges Benzodiazepines: ? ? 150 ng/mLBarbiturates : ?200 ng/mLAmphetamine: ? 500 ng/mLCannabinoids : ?50 ?ng/mLMethadone: ? 200 ng/mLMethamphetam ine: ? ? 500 ng/mL Opiates: ? 100 ng/mL or 2000 ng/mLCocaine: ? 150 ng/mLPropoxyphene : ?300 ng/mLTricyclics: ?300 ng/mLOxycodone: ? 100 ng/mLPCP: ? 25 ?ng/mL The results are to be used only for medical (i.e., treatment) purposes. Unconfirmed screening results must not be used for non-medical purposes (e.g., employment testing, legal testing). 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 The reference range was not used to interpr et this result as normal/abnormal . THEODORA (test code = Equal or Less than THEODORA) 0.034 ng/ml---Normal ?Note: Cardiac troponin begins to rise 3-4 hours after the onset of ischemia. Repeat in 4-6 hours if the sample was drawn within 3-4 hours of the onset of the symptom and found normal. Between 0.035 and 0.120 ng/mL--- Borderline. Questionable myocardial injury or necrosis ? ?Note: Serial measurement may be necessary to confirm or exclude the diagnosis of myocardial injury or necrosis; Clinical correlation (symptoms, EKGs, imaging studies, and others) required; Repeat in 4-6 hours if clinically indicated. ? Equal or Higher than 0.121 ng/mL---Abnormal. Myocardial Injury or Necrosis Likely ? Biotin has been reported to cause a negative bias, interpret results relative to patient's use of biotin. ? Lab Interpretation Normal (test code = 62600-7) [facility] CenterCOMP. METABOLIC PANEL (83422)2020-04-05 22:51:00 Test Item Value Reference Range Interpretation Comments NA (test code = 141 mmol/L 135-145 4656160083) K (test code = 3.9 mmol/L 3.5-5 0881014795) CL (test code = 109 mmol/L 98-108 H 9067841829) CO2 TOTAL (test code = 21 mmol/L 23-31 L 6304006032) AGAP (test code = 2-16 5650484444) BUN (test code = 13 mg/dL 7-23 3068474096) GLUCOSE (test code = 159 mg/dL 70-110 H 2474942747) CREATININE (test code = 0.47 mg/dL 0.5-1.04 L 8683831540) TOTAL BILI (test code = 0.9 mg/dL 0.1-1.9 5477362789) CALCIUM (test code = 10.6 mg/dL 8.6-10.6 3263838823) T PROTEIN (test code = 7.7 g/dL 6.3-8.2 2122214950) ALBUMIN (test code = 4.4 g/dL 3.5-5 3562751501) ALK PHOS (test code = 105 U/L 34-122 7003990960) ALTv (test code = 13 U/L 5-35 1742-6) AST(SGOT) (test code = 29 U/L 13-40 7321407769) eGFR Calculation mL/min/1.73m2 (Non-) (test code = 2057846309) eGFR Calculation mL/min/1.73m2 () (test code = 9252133561) THEODORA (test code = THEODORA) Association of Glomerular Filtration Rate (GFR) and Staging of Kidney Disease* + --+ --+ ------+| GFR (mL/min/1.73 m2) ?| With Kidney Damage ?| ?Without Kidney Damage+ --------+ --------+ +| ?>90 ?| ?Stage one ?| ? Normal ?+ ---+ ---+ -------+| ?60-89 ?| ?Stage two ?| ? Decreased GFR ? + --+ --+ ------+| ?30-59 ?| ?Stage three ?| ? Stage three ? + --+ --+ ------+| ?15-29 ?| ?Stage four ? | ? Stage four ?+ ---+ ---+ -------+| ?<15 (or dialysis) ? ?| ?Stage five ? | ? Stage five ?+ ---+ ---+ -------+ *Each stage assumes the associated GFR level has been in effect for at least three months. ?Stages 1 to 5, with or without kidney disease, indicate chronic kidney disease. Notes: Determination of stages one and two (with eGFR >59mL/min/1.73 m2) requires estimation of kidney damage for at least three months as defined by structural or functional abnormalities of the kidney, manifested by either:Pathological abnormalities or Markers of kidney damage (including abnormalities in the composition of the blood or urine or abnormalities in imaging tests). Lab Interpretation Abnormal (test code = 28122-8) [facility] CenterLIPASE2020-05-24 22:51:00 Test Item Value Reference Range Interpretation Comments LIPASE (test code = 2231648408) 34 U/L 0-220 Lab Interpretation (test code = Normal 40918-6) [facility] CenterMAGNESIUM2020-05-24 22:51:00 Test Item Value Reference Range Interpretation Comments MAGNESIUM (test code = 7584689275) 1.7 mg/dL 1.7-2.4 Lab Interpretation (test code = Normal 53344-7) [facility] CenterCB WITH [id number] 22:37:00 Test Item Value Reference Range Interpretation Comments WBC (test code = See_Comment H [Automated 1212-2) message] The system which generated this result transmit carrie reference range : 4.30 - 11.10 10*3/?L. The reference range was not used to interpret this result as normal/abnormal . RBC (test code = See_Comment [Automated 465-8) message] The system which generated this result transmit carrie reference range : 3.93 - 5.25 10*6/?L. The reference range was not used to interpret this result as normal/abnormal . HGB (test code = 15.0 g/dL 11.6-15 718-7) HCT (test code = 45.6 % 35.7-45.2 H 4544-3) MCV (test code = 89.2 fL 80.6-95.5 787-2) MCH (test code = 29.4 pg 25.9-32.8 785-6) MCHC (test code = 32.9 g/dL 31.6-35.1 786-4) RDW-SD (test code = 47.7 fL 39-49.9 26195-2) RDW-CV (test code = 14.6 % 12-15.5 788-0) PLT (test code = See_Comment [Automated 777-3) message] The system which generated this result transmit carrie reference range : 166 - 358 10*3/ ?L. The reference range was not u sed to interpret th is result as normal/abnormal . MPV (test code = 10.5 fL 9.5-12.9 32243-1) NRBC/100 WBC (test See_Comment [Automat ed code = 8169189878) message] The system which generated this result transmit carrie reference range : 0.0 - 10.0 /100 WBCs. The reference range was not used to interpret this result as normal/abnormal . NRBC x10^3 (test code <0.01 See_Comment [Auto mated = 7615503835) message] The system which generated this result transmit carrie reference range : 10*3/?L. The reference range was not used to interpret this result as normal/abnormal . GRAN MAT (NEUT) % 89.0 % (test code = 770-8) IMM GRAN % (test code 0.60 % = 2417920937) LYMPH % (test code = 7.3 % 736-9) MONO % (test code = 2.7 % 5905-5) EOS % (test code = 0.1 % 713-8) BASO % (test code = 0.3 % 706-2) GRAN MAT x10^3(ANC) 10.74 10*3/uL 1.88-7.09 H (test code = 0829962002) IMM GRAN x10^3 (test 0.07 10*3/uL 0-0.06 H code = 3515961378) LYMPH x10^3 (test code 0.88 10*3/uL 1.32-3.29 L = 731-0) MONO x10^3 (test code 0.32 10*3/uL 0.33-0.92 L = 742-7) EOS x10^3 (test code = <0.03 0.03-0.39 L 711-2) BASO x10^3 (test code 0.04 10*3/uL 0.01-0.07 = 704-7) Lab Interpretation Abnormal (test code = 12683-2) [facility] CenterS[facility] PATHOLOGY [id number] 15:05:00 Test Item Value Reference Range Interpretation Comments Case Report (test code Surgical Pathology ? ? = [id number]) ?Case: [id number] ? Authorizing Provider: ?Nohemi Magallon MD ?Collected: ? 03/04/2020 1004 ?Ordering Location: ? ? [facility] ? ? ?Received: ?03/04/2020 1548 ? [facility] ?Pathologist: ? Claudette Singh MD ? Specimen: ? ?STOMACH, antrum ? Final Diagnosis (test b4ngnCUyDHDea3tgBGYltF code = 9711746195) FuZzEwMzNcZnRuYmpcdWMx HHrtkxExPPeri5LwG0PuXc AwMFxhbnNpXGRlZmxhbmcx FYUfNAT3iqEaVVVfJXudEH JpNDokCt8qdYEvwWzhZcHq YSVoq8bdrdKBfsaokTd5kX tzM97ez7T7GbswX5hlHZMh TGckZLBeZXgvbPRzJML5TC KaGON2VUaxiaYlzpP5AHor bNSwRfH0BRa0j3gywFqsCF BzXFT7g8bxYIguhoSuAW5i gh3mzHx6f0ybmzGuASWhHE QibVNRGRPnI4ZbnPvuWo5k aBn0dQzfOgnhNGI6Ger8LR 8zhe62zzb5dNfeEVCpbaag OuA1AXkcVNVhqdlrSSx9GV jmBVFxiSRmYLNunKLlT7Al WWheVT5hnqw6VxFvTP2bqz rwQQscRVWmWBY2EtUeAEGk x7HveekqVwKvbm3tyn82MF U2c9YcwBrbQOF0HHN6SzFt Vv8ouIYcBHPiUW4qMkWvfY WrOTChtp32oJckWMnuukNl vS2iFnNcNVZyxWXpRPBnGA 6gqPCmPAItxP5yhbbvQVFu YnJkcmhlYWRccGdicmRyZm 4keBhxAZY8LQcfZ5lmhZ7w RrF6SWnpR9becL2hJXw8IO thxXG8URPhoQ5sLH1tlmga j2orXUY2FTgpTKAufhX8ii NlMPPrrNBiZ9JokA06MhLu hMGwB0YurY3zSOxqDKAzov w8MaQpFx4aoRHpaEI7MWnq YmtwYWdlXHBnbmNvbnRccG duZGVjXHBsYWluXHBsYWlu XGYwXGZzMjBccWxccGxhaW 5cZjBcZnMyMFxwbGFpblxm MFxmczIwXHBhclxwYXJkXH BsYWluXGYwXGZzMjBccGxh yD9dXxEzGzMdSNAXCtFMUB 4BHPATCXUSZkEFGL4rCEUB A1TDTLbqbWReSZTaCT3vZ5 FTVFJJQyBBTlRSQUwgTVVD I8AIFPqJVOimQjBNC3UXJt HlL3AKPUWWLTUSYSaqrGHp DZSzDX5oQd2eATDWGWDBZB ejC7LdZC8MFBICPM5BLDMB WVEUDYoGW9iHLSuMPE0MDN ZJRURccGFyXHFsXHBsYWlu XCJdYKBlIgTsbSqnkL5yNd UxVwWzYPVsRBRtTW3LVEjn RBULYH0XRS1YGGdCLH9CP0 FOSVNNUyBJREVOVElGSUVE AMPshploMFK4m6ggpYEjRL FhxSDgTwJeLZXeIFTuo4rq ZGVmbGFuZzEwMzNcZnRuYm pdqFAkIUUmXlRjy2lpq559 wRBxq9xdAFRkNoK7kFDvBZ JcaMoafnw6jHclKgLfMQAh x5esqcKyQuDbMAJrCRVeVH XvpDPhB209DTFtCGkhu1gb p6XpGGNblOLop9L3ATCXLD onRdDtU631b2fly7mpjzBz oXQ6YSIaCPH8WSyxxnQtay T5WVpekUZhUnY7ZLumxgBd UErtzwQyjsUlUbw6ACQlK6 81SIP8xVviv6ugGOT1FJMl YGRgXhlvRg0dzYJkW074IT WfWGVQQNTsvHw6XYRbvlYu qcLqaOFDj357U378u1kgGD RjksWceJcDklois4ydI753 XHBhcGVydzEyMjQwXHBhcG QuhCZ2QQVgMG2vuxssLLms DSnqBIZmjqP2YBBqzWKzC7 CaFVJpLD1fpicpMWT2RTer MRAtXHQ8NqNeQSDbh7Qrpx d6KzQxem5edn95DLU1z1Gx iFdhBJT8WVI8DhZuMi6wjP XnLQUsLN1jMvVpdKNfORRy pw32zOstHHjphaSuvR2eBq MgHRVkuHVaVRMtZB2ehNHs WNDicY7vzvzgUVSdLpVieo vlIWCxzHibkyYiLs7wxQmm LOO9SBdpZ0kglH3xOsA1MT cvK5vbsY1lNOa5YGtkeYJ3 SSPeeQ7oAF8gtcguj7ofBA csQYfwRNUzyqA1uvK5MWAj fXUeJ3SsgR2xEQMtBT2stg pcm0frKRK6PHikEQHkTMS6 KmKpHPXcz5Xywwe9EvWkk4 AzgRYkOChzC82tp019QBLa alBgK5lktXXnmdihzOJhop fkXChlkmR7JKXdAMHtCBtg XGYxXGZzMjBcbGFuZzEwMz NcaGljaFxmMVxkYmNoXGYx EZbwD6ffMmTwV0QdDQInYn PviKKlYJmpgJF6KULpRPYo r47dlHu6VDHojckvf1CtDA JdvDCyqTRjyG1tqxNcz8un PTDjFKOuHDQcR7ZeCBU2pB DgHVJlmTHqvFF1SF3eirEz UW4rNJSkJjcjjiNajQAtbk OyOPWuKWrmv8lmJY8bPVAq xBzelA5zqMS0XQNxk2mmmK QpbTHpm1hpe4ZckdRxNUeg GATcKVktCTQlEMGlGI4mKX YrlOFshbFov4K3TrtfoRZm pmjmGfltadQ4FPrpxgijNY YxQPbtL8tjNuJkACEkpLcp Lebdl3ZdRLKbCDTgXesfnN FyfX0= Clinical Information Abnormal CT (test code = 2843563743) Gross Description (test c5thiXPmTLTvlXBqVbRoVT code = 4096940072) XoKWSwv0meQTNekOTyNrFx MzNcZnRuYmpcdWMxXGRlZm Tqc6nme576mNCjy9nuBDLl IzE2mNPiTFCxfDWjG682FZ CdDLdfk4yzy2EyHJYjwIWa w1E0VIDXmbygvOr7b4mcCl AqVlP1jZYkBRalS6sipdHw cXZvSDOfT9XrqzPYRDFtGf q1xMpuU69nj6V2KrmeM1nz ZWQwXGdyZWVuMFxibHVlMC R0IZYqDND9FRwjahUzyvP3 RWthsRNnAaV2WPl8h3eewX vwYTUoSBH2e7wuNGqhkgCd BC3qkz4pzEh3f9aoovRfDC KbIULlfTQZDZLtE4XqnSrp Ah1bqCq1yTscUlgvJVY0Um c9DM3lsf86gik5sPzlEHXr bhvvUhB2IFsgLADviohkUZ s4NWfpXZGihYDnUNAkxUUu L4DtMGmpCS3qjkw4IiNaXO 8uekwsOGueIYQhOIS3DbOj GCNso8RkgndfOqCwkh9ajw 12TYH4l3SooEagMKK4HKO2 CrDxIf0chBWpCCNgSK7oEp OnpOCnZMBqqb54eOtlENsd zsCkeZ7tIdDcMBAgjJBmSC ApDK7zmEBcVQEceR3klyab XHBnYnJkcmhlYWRccGdicm MfEy7bpHljSNY7ZOkoH3ge gM2xIyO5ZUbkG8ugfD0gNG z0HHhseKU0FLEbhF9cTB7f knpwq2qfUWS6HCksYUAxfo Q5hpUtXLQshHYuA9VyrY57 MgLkzMViF0XeiY7yGPwxLK Igghz7AzQtYq7ujKUsoZT7 MFxzYmtwYWdlXHBnbmNvbn RccGduZGVjXHBsYWluXHBs WXocUXAxQCAiZiDzq5SaMB Joa3ceYqHdf2bqiHh3OQbr bFxwbGFpblxmMFxmczIwXH BsEKkeNBCbQUUdIoOfL2Un K4odJA1sCVNzoiKnDXShwB LhSPLvouDfm7ArBJejmsLg IRMyuZeqILW6jBBcNNZbNQ FmZQAeOA33GXTuYIeiFGOe BDMfQnTqoFttQZceCNf5Ns xwbGFpblxmMVxmczIwIHMg bmFtZSwgVUggbnVtYmVyIC MxkV1dVZChROFesBS4fCby xJOlzseiZWmejlEqYEI3Kw ZiTDljTOGhfGnzkT4pLiSs LvKuFTFwFV5gEYAgriEsh7 TiQZ8yFYSznXRyGBVzrggs vKQzNFu8jOElMZKaRnYzpQ tns4OhNMMhIAjdUO90sbBd DE10RTztSX94CBshCD6wQR LnUCraCBFbB0JaD6Z1UWbd XLNeKIDrdIReyA1jlxKzfm FpfBd2IMYmSGY2rVZrhHtf RLSxDxlnmWE8LMKkHuUfxg JmAV34yWEaeOlpa9TeyRm8 jVEvDIxkYYKqpY3hyD4pWL EuXHBhclxwYXJkXHBsYWlu ZQAxELNnZeGhoGpreW5bUk IzJcDnGLNNbAjdABRAO5dw aGFuZXksIFBBXHBsYWluXG YxXGZzMjBcbGFuZzEwMzNc aGljaFxmMVxkYmNoXGYxXG ceM1ksNvHlE3EhNXFsJyCc b8QpABEemYXaLUPnXSgyCT YyXGZzMTZcbGFuZzEwMzNc aGljaFxmMlxkYmNoXGYyXG foO8kwMtYkQ8YdHDZgIGXk cGFyXHBhclxxbFxwbGFpbl xmMFxmczIwXHBsYWluXGYx XGZzMjBccGFyfQ== Embedded Images (test code = 8214380570) [facility] CenterC-REACTIVE [id number] 15:01:00 Test Item Value Reference Range Interpretation Comments CRP (test code = 2883649328) 1.1 mg/dL <0.8 H Lab Interpretation (test code = Abnormal 97093-4) [facility] CenterCANCER ANTIGEN-GI (CA 19-9)2020-03-06 12:43:00 Test Item Value Reference Range Interpretation Comments CA 19-9 (test code = 7.7 U/mL 0-35 3502816958) THEODORA (test code = THEODORA) Biotin has been reported to cause a negative bias, interpret results relative to patient's use of biotin. Lab Interpretation (test Normal code = 01162-8) [facility] CenterSEDIMENTATION [id number] 11:52:00 Test Item Value Reference Range Interpretation Comments ESR (test code = See_Comment [Automated message] 5844074066) The system [employer] generated this result transmitted ref erence range: 0 - 20 m m/HR. The reference r cayden was not used to interpret this result as normal/abnor mal. Lab Interpretation (test Normal code = 78411-2) [facility] CenterCARCINOEMBRYONIC [id number] 21:16:00 Test Item Value Reference Range Interpretation Comments CEA (test code = 1.6 ng/mL 0-10 1534529332) THEODORA (test code = THEODORA) CEA Ranges: Non-Smokers ?0-5.0 ng/mLSmokers ? ? ?0-10.0 ng/mL Lab Interpretation (test Normal code = 29652-5) [facility] CenterCOMP[facility] METABOLIC PANEL (99781)2020-03-05 11:36:00 Test Item Value Reference Range Interpretation Comments NA (test code = 140 mmol/L 135-145 2315434791) K (test code = 3.7 mmol/L 3.5-5 2702529215) CL (test code = 109 mmol/L 98-108 H 1178859101) CO2 TOTAL (test code = 25 mmol/L 23-31 2564686905) AGAP (test code = 2-16 2018083760) BUN (test code = 4 mg/dL 7-23 L 5420820669) GLUCOSE (test code = 79 mg/dL 70-110 5864757956) CREATININE (test code = 0.39 mg/dL 0.5-1.04 L 3314766069) TOTAL BILI (test code = 0.5 mg/dL 0.1-1.4 9422076269) CALCIUM (test code = 9.3 mg/dL 8.6-10.6 4208963552) T PROTEIN (test code = 5.9 g/dL 6.3-8.2 L 1951323919) ALBUMIN (test code = 3.1 g/dL 3.5-5 L 8083200379) ALK PHOS (test code = 50 U/L 34-122 6432215415) ALTv (test code = 15 U/L 5-35 1742-6) AST(SGOT) (test code = 27 U/L 13-40 3118700318) eGFR Calculation mL/min/1.73m2 (Non-) (test code = 7295324315) eGFR Calculation mL/min/1.73m2 () (test code = 0350975210) THEODORA (test code = THEODORA) Association of Glomerular Filtration Rate (GFR) and Staging of Kidney Disease* + --+ --+ ------+| GFR (mL/min/1.73 m2) ?| With Kidney Damage ?| ?Without Kidney Damage+ --------+ --------+ +| ?>90 ?| ?Stage one ?| ? Normal ?+ ---+ ---+ -------+| ?60-89 ?| ?Stage two ?| ? Decreased GFR ? + --+ --+ ------+| ?30-59 ?| ?Stage three ?| ? Stage three ? + --+ --+ ------+| ?15-29 ?| ?Stage four ? | ? Stage four ?+ ---+ ---+ -------+| ?<15 (or dialysis) ? ?| ?Stage five ? | ? Stage five ?+ ---+ ---+ -------+ *Each stage assumes the associated GFR level has been in effect for at least three months. ?Stages 1 to 5, with or without kidney disease, indicate chronic kidney disease. Notes: Determination of stages one and two (with eGFR >59mL/min/1.73 m2) requires estimation of kidney damage for at least three months as defined by structural or functional abnormalities of the kidney, manifested by either:Pathological abnormalities or Markers of kidney damage (including abnormalities in the composition of the blood or urine or abnormalities in imaging tests). Lab Interpretation Abnormal (test code = 16314-1) [facility] CenterMAGNESIUM2020-04-23 11:36:00 Test Item Value Reference Range Interpretation Comments MAGNESIUM (test code = 4874311523) 2.0 mg/dL 1.7-2.4 Lab Interpretation (test code = Normal 65108-2) [facility] CenterPHOSPHORUS2020-04-23 11:36:00 Test Item Value Reference Range Interpretation Comments PHOSPHORUS (test code = 9763690840) 3.3 mg/dL 2.5-5 Lab Interpretation (test code = Normal 16512-6) [facility] CenterPROTHROMBIN TIME / [id number] 10:59:00 Test Item Value Reference Range Interpretation Comments PROTIME PATIENT (test See_Comment [Auto mated message] code = 5964-2) The system [employer] generated this result transmitted ref erence range: 12.0 - 1 4.7 Seconds. The re ference range was not u sed to interpret this result as normal/abnor mal. INR (test code = 6301-6) Nor mal INR <1.1; Warfarin Therap eutic range 2.0 to 3. 0 or 2.5 to 3.5, dep ending upon the indica tions. Lab Interpretation (test Normal code = 46053-4) [facility] CenterCB WITH [id number] 10:55:00 Test Item Value Reference Range Interpretation Comments WBC (test code = See_Comment [Automated 6690-2) message] The sy stem which generated this result transmitted reference range : 4.30 - 11.10 10*3/?L. The reference range was not used to interpret this result as normal/abnormal . RBC (test code = See_Comment L [Automated 789-8) message] The sy stem which generated this result transmitted reference range : 3.93 - 5.25 10*6/?L. The reference range was not used to interpret this result as normal/abnormal . HGB (test code = 10.8 g/dL 11.6-15 L 718-7) HCT (test code = 33.3 % 35.7-45.2 L 4544-3) MCV (test code = 94.3 fL 80.6-95.5 787-2) MCH (test code = 30.6 pg 25.9-32.8 785-6) MCHC (test code = 32.4 g/dL 31.6-35.1 786-4) RDW-SD (test code = 48.1 fL 39-49.9 06669-0) RDW-CV (test code = 13.9 % 12-15.5 788-0) PLT (test code = See_Comment [Automated 777-3) message] The sy stem which generated this result transmitted reference range : 166 - 358 10*3/ ?L. The reference r cayden was not used to interpret this result as normal/abnormal . MPV (test code = 11.1 fL 9.5-12.9 83888-5) NRBC/100 WBC (test See_Comment [Automat ed code = [id number]) message] The system which generated this result transmitted reference range : 0.0 - 10.0 /100 WBCs. The refer ence range was not u sed to interpret th is result as normal/abnormal . NRBC x10^3 (test code <0.01 See_Comment [Auto mated = [id number]) message] The s ystem which generated this result transmitted reference range : 10*3/?L. The reference range was not used to interpret this result as normal/abnormal . GRAN MAT (NEUT) % 59.6 % (test code = 770-8) IMM GRAN % (test code 0.40 % = 5143556477) LYMPH % (test code = 26.5 % 736-9) MONO % (test code = 9.7 % 5905-5) EOS % (test code = 3.0 % 713-8) BASO % (test code = 0.8 % 706-2) GRAN MAT x10^3(ANC) 4.36 10*3/uL 1.88-7.09 (test code = 5707980560) IMM GRAN x10^3 (test 0.03 10*3/uL 0-0.06 code = [id number]) LYMPH x10^3 (test code 1.94 10*3/uL 1.32-3.29 = 731-0) MONO x10^3 (test code 0.71 10*3/uL 0.33-0.92 = 742-7) EOS x10^3 (test code = 0.22 10*3/uL 0.03-0.39 711-2) BASO x10^3 (test code 0.06 10*3/uL 0.01-0.07 = 704-7) Lab Interpretation Abnormal (test code = 14136-7) [facility] PELVIS COMPLETE WITH [id number] 02:21:23 Right ovarian cyst measuring up to 2.4 cm. No suspicious feature. Prominent vessels seen within theendometrium without discernible polypoidlesion or other endometrial abnormality. Correlate with patient's symptoms. Preliminary Report Dictated by Resident: Domenic Landrum MD., have reviewed this study and agree with theabove report.EXAM: PELVIC ULTRASOUND, TRANSABDOMINAL ANDTRANSVAGINAL HISTORY: right ovarian growth, concern for malignancy, concerning CTabdomen. On CT abdomen and pelvis yesterday a right dominant follicle wasseen. No additional abnormality. Ab0, LMP02/19/2020. TECHNIQUE: Real-time grayscale and color Doppler images through the pelvisvia transvaginaland transabdominal approach. COMPARISON: 03/03/2020 FINDINGS: UTERUS: The uterus measures 7.2 x 3.2 x 5.0 cm. The endometrium ishomogeneous and measures 6 mm in thickness. Two prominent vessels appear irene coursing parallel adjacent to or in the endometrium. Cervix contains afew nabothian cysts with the largest one measuring up to 0.6 cm. OVARIES: The right ovary measures 3.4 x 2.3 x 2.7 cm (11 mL) and contains a2.4 x 2 x 2.3 cm anechoic structure without color Doppler flow consistentwith an ovariancyst. The left ovary measures 2.9 x 1.3 x 2.2 cm (4.3 mL).Dominant follicle within the left ovary chelly sures up to 0.9 cm. No adnexal mass. No ?free fluid. [facility], Radiant Results Inft User - 03/04/2020 9:22 PM CDTEXAM: PELVIC ULTRASOUND, TRANSABDOMINAL AND TRANSVAGINALHISTORY: right ovarian growth, concern for malignancy, concerning CTabdomen. On CT abdomen and pelvis yesterday a right dominant follicle wasseen. No additional abnormality. Ab0, LMP 02/19/2020.TECHNIQUE: Real-time grayscale and color Doppler images through the pelvisvia transvaginal and transabdominal approach.COMPARISON: 03/03/2020FINDINGS: UTERUS: The uterus measures 7.2 x 3.2 x 5.0 cm. The endometrium ishomogeneous and measures 6 mm in thickness. Two prominent vessels appear irene coursing parallel adjacent to or in the endometrium. Cervix contains afew nabothian cysts with the largest one measuring up to 0.6 cm.OVARIES: The right ovary measures 3.4 x 2.3 x 2.7 cm (11 mL) and contains a2.4 x 2 x 2.3 cm anechoic structure without color Doppler flow consistentwith an ovarian cyst. The left ovary measures 2.9 x 1.3 x 2.2 cm (4.3 mL).Dominant follicle within the left ovary measures up to 0.9 cm.No adnexal mass.No free fluid.IMPRESSIONRight ovarian cyst measuring up to 2.4 cm. No suspicious feature.Prominent vessels seen withinthe endometrium without discernible polypoidlesion or other endometrial abnormality. Correlate with p atient's symptoms.Preliminary Report Dictated by Resident: Domenic Rose MD., have reviewed this study and agree with theabove report.[facility]00 Test Item Value Reference Range Interpretation Comments MAGNESIUM (test code = 6321370703) 1.5 mg/dL 1.7-2.4 L Lab Interpretation (test code = Abnormal 45726-9) [facility]17:00 Test Item Value Reference Range Interpretation Comments PHOSPHORUS (test code = 3.0 mg/dL 2.5-5 Slig ht hemolysis 3639661348) Lab Interpretation (test Normal code = 23556-2) [facility] (NA, K, CL, CO2, GLUCOSE, BUN, CREATININE, CA)2020-03-04 11:17:00 Test Item Value Reference Range Interpretation Comments NA (test code = 139 mmol/L 135-145 5215637938) K (test code = 3.5 mmol/L 3.5-5 7762891332) CL (test code = 110 mmol/L 98-108 H 8467301770) CO2 TOTAL (test code = 24 mmol/L 23-31 5633710015) AGAP (test code = 2-16 6857222588) BUN (test code = 4 mg/dL 7-23 L 9106677267) GLUCOSE (test code = 100 mg/dL 70-110 0023765770) CREATININE (test code = 0.42 mg/dL 0.5-1.04 L 1070634434) CALCIUM (test code = 9.7 mg/dL 8.6-10.6 6159759025) eGFR Calculation mL/min/1.73m2 (Non-) (test code = 1391036701) eGFR Calculation mL/min/1.73m2 () (test code = 9392456136) THEODORA (test code = THEODORA) Association of Glomerular Filtration Rate (GFR) and Staging of Kidney Disease* + --+ --+ ------+| GFR (mL/min/1.73 m2) ?| With Kidney Damage ?| ?Without Kidney Damage+ --------+ --------+ +| ?>90 ?| ?Stage one ?| ? Normal ?+ ---+ ---+ -------+| ?60-89 ?| ?Stage two ?| ? Decreased GFR ? + --+ --+ ------+| ?30-59 ?| ?Stage three ?| ? Stage three ? + --+ --+ ------+| ?15-29 ?| ?Stage four ? | ? Stage four ?+ ---+ ---+ -------+| ?<15 (or dialysis) ? ?| ?Stage five ? | ? Stage five ?+ ---+ ---+ -------+ *Each stage assumes the associated GFR level has been in effect for at least three months. ?Stages 1 to 5, with or without kidney disease, indicate chronic kidney disease. Notes: Determination of stages one and two (with eGFR >59mL/min/1.73 m2) requires estimation of kidney damage for at least three months as defined by structural or functional abnormalities of the kidney, manifested by either:Pathological abnormalities or Markers of kidney damage (including abnormalities in the composition of the blood or urine or abnormalities in imaging tests). Lab Interpretation Abnormal (test code = 44953-6) [facility] WITH [id number] 11:00:00 Test Item Value Reference Range Interpretation Comments WBC (test code = See_Comment H [Automated 6690-2) message] The sy stem which generated this result transmitted reference range : 4.30 - 11.10 10*3/?L. The reference range was not used to interpret this result as normal/abnormal . RBC (test code = See_Comment L [Automated 789-8) message] The sy stem which generated this result transmitted reference range : 3.93 - 5.25 10*6/?L. The reference range was not used to interpret this result as normal/abnormal . HGB (test code = 11.5 g/dL 11.6-15 L 718-7) HCT (test code = 34.7 % 35.7-45.2 L 4544-3) MCV (test code = 94.3 fL 80.6-95.5 787-2) MCH (test code = 31.3 pg 25.9-32.8 785-6) MCHC (test code = 33.1 g/dL 31.6-35.1 786-4) RDW-SD (test code = 49.3 fL 39-49.9 92164-2) RDW-CV (test code = 14.2 % 12-15.5 788-0) PLT (test code = See_Comment [Automated 777-3) message] The sy stem which generated this result transmitted reference range : 166 - 358 10*3/ ?L. The reference r cayden was not used to interpret this result as normal/abnormal . MPV (test code = 11.9 fL 9.5-12.9 43882-8) NRBC/100 WBC (test See_Comment [Automat ed code = 8377921826) message] The system which generated this result transmitted reference range : 0.0 - 10.0 /100 WBCs. The refer ence range was not u sed to interpret th is result as normal/abnormal . NRBC x10^3 (test code <0.01 See_Comment [Auto mated = 6374929502) message] The s ystem which generated this result transmitted reference range : 10*3/?L. The reference range was not used to interpret this result as normal/abnormal . GRAN MAT (NEUT) % 74.9 % (test code = 770-8) IMM GRAN % (test code 0.60 % = 0246871169) LYMPH % (test code = 15.4 % 736-9) MONO % (test code = 8.5 % 5905-5) EOS % (test code = 0.3 % 713-8) BASO % (test code = 0.3 % 706-2) GRAN MAT x10^3(ANC) 8.44 10*3/uL 1.88-7.09 H (test code = 2222880812) IMM GRAN x10^3 (test 0.07 10*3/uL 0-0.06 H code = 5391426256) LYMPH x10^3 (test code 1.74 10*3/uL 1.32-3.29 = 731-0) MONO x10^3 (test code 0.96 10*3/uL 0.33-0.92 H = 742-7) EOS x10^3 (test code = 0.03 10*3/uL 0.03-0.39 711-2) BASO x10^3 (test code 0.03 10*3/uL 0.01-0.07 = 704-7) Lab Interpretation Abnormal (test code = 76992-0) [facility] W [id number] 04:10:34 Focal circumferential thickening of the stomach antrum/pylorus concerningfor malignancy. Direct visualization with endoscopy is recommended. Marked circumferential segmental rectosigmoid thickening and luminalnarrowing. Underlying mass is not completely excluded. Colitis is anotherpossibility. However, there is no significant hyperemia to this region.Recommend GI consult and endoscopy. Scattered nodular soft tissue densities throughout the peritoneal cavityare concerning for peritoneal carcinomatosis. Recommend tissue sampling. Rectosigmoid intramural collection measuring 1.0 cm with mild periphera lenhancement. Alternatively, this lesion may represent intraluminal pocketof fluid. Assessment is difficult due to prominent wall thickening. Indeterminate 1.5 cm left and 0.7 cm right adrenal nodules.Furthernonemergent evaluation with CT adrenal mass protocol is recommended. Hepatosteatosis. Preliminary Report Dictated by Resident: Domenic Landrum MD., have reviewed this study and agree with theabove report.EXAM: CT ABDOMEN AND PELVIS WITH CONTRAST HISTORY: 44-year-old female "abdominal pain, acute, generalized, emesis,history of pancreatitis". COMPARISON: None. DOSE: 253mGycm TECHNIQUE AND FINDINGS: Contiguous axial imaging from the level of the lungbases through the proximal thighs was performed after the uncomplicatedadministration of intravenous Omnipaque contrast. Coronal and sagittalreconstructions were obtained. Auto mA and/or iterative reconstruction wereused to reduce radiation dose. FINDINGS: LOWER THORAX: Bilateral dependent atelectasis. LIVER: Normal liver contour. Diffuse hypoattenuation of the liver is seen.Mild fatty infiltration at the falciform ligament. Otherwise, no focalhepatic lesion identified. GALLBLADDER AND BILIARY TREE: Neurologically distended gallbladder withoutradiopaque cholelithiasis. No pericholecystic free fluid. No biliary ductaldilatation. SPLEEN: No splenomegaly. PANCREAS: Pancreas is diffusely atrophic. No pancreatic ductal dilatation. ADRENAL GLANDS: 0.7 cm indeterminate right adrenal nodule is present(2:40). 1.5 cm indeterminate left adrenal nodule is present (2:40). KIDNEYS: No hydronephrosis, stones, or mass. PERITONEUM AND RETROPERITONEUM: No free air. Trace pelvic free fluid ispresent. Scattered nodular soft tissue densities are seen throughout the peritonealcavity, for example: -Left paracolic gutter measuring 1.5 x1.3 cm (2:90).-Left paracolic gutter measuring 2.5 x 0.8 cm (2:78).-Adjacent to the pancreatic tail,measuring 4.4 x 2.9 cm (2:50).-Anterior mesentery measuring 2.1 x 4.4 cm (2:64)-Right paracolic gutter measuring 1.9 x 3.6 cm (2:81). LYMPH NODES: No enlarged lymph nodes are identified in the abdomen orpelvis. GI TRACT: Focal circumferential thickening and mucosal enhancement of the stomachantrum/pylorus is seen (2:49). No dilation or wall thickening of the small bowel. Normal appendix (2:97). Prom inent circumferential segmental thickening of the distal sigmoid colon.Involved segment measures approximately 12 cm. An intramuralhypoattenuating lesion with peripheral enhancement in the rectosigmoidmayreflect intramural collection versus luminal contents (2:114). Few rectosigmoid diverticuli without diverticulitis. No evidence ofobstruction at this time. PELVIS/BLADDER: The urinary bladder is mildly distended without wallthickening. The uterus is unremarkable. A dominant follicle is noted in theright ovary measuring 2.3 cm. The left ovary is unremarkable. Trace pelvicfree fluid is present. VESSELS: Patent abdominal vasculature. No significant atheroscleroticcalcifications in the abdominal aorta. BONES AND SOFT TISSUES: No suspicious lytic or sclerotic bony lesions.Hardware fixation of the proximal left femur is partially visualized. [facility], Radiant Results Inft User - 03/03/2020 11:11 PM CDTEXAM: CT ABDOMEN AND PELVIS WITH CONTRASTHISTORY: 44-year-old female "abdominal pain, acute, generalized, emesis,history of pancreatitis".COMPARISON: None.DOSE: 253mGycmTECHNIQUE AND FINDINGS: Contiguousaxial imaging from the level of the lungbases through the proximal thighs was performed after the unc omplicatedadministration of intravenous Omnipaque contrast. Coronal and sagittalreconstructions wereobtained. Auto mA and/or iterative reconstruction wereused to reduce radiation dose.FINDINGS:LOWER THORAX: Bilateral dependent atelectasis. LIVER: Normal liver contour. Diffuse hypoattenuation of the liver is seen.Mild fatty infiltration at the falciform ligament. Otherwise, no focalhepatic lesion identified.GALLBLADDER AND BILIARY TREE: Neurologically distended gallbladder withoutradiopaque cholelithiasis. No pericholecystic free fluid. No biliary ductaldilatation.SPLEEN: No splenomegaly.PANCREAS: Pancreas is diffusely atrophic. No pancreatic ductal dilatation.ADRENAL GLANDS: 0.7 cm indeterminate right adrenal nodule is present(2:40). 1.5 cm indeterminate left adrenal nodule is present (2:40).KIDNEYS: No hydronephrosis, stones, or mass.PERITONEUM AND RETROPERITONEUM: No free air. Trace pelvic free fluid ispresent.Scattered nodular soft tissue densities are seen throughout the peritonealcavity, for example:-Left paracolic gutter measuring 1.5 x 1.3 cm (2:90).-Left paracolic gutter measuring 2.5x 0.8 cm (2:78).-Adjacent to the pancreatic tail, measuring 4.4 x 2.9 cm (2:50).-Anterior mesentery measuring 2.1 x 4.4 cm (2:64)-Right paracolic gutter measuring 1.9 x 3.6 cm (2:81).LYMPH NODES: No enlarged lymph nodes are identified in the abdomen orpelvis.GI TRACT: Focal circumferential thickening and mucosal enhancement of the stomachantrum/pylorus is seen (2:49). No dilation or wall thickening of the small bowel. Normal appendix (2:97).Prominent circumferential segmental thickening of the distal sigmoid colon.Involved segment measures approximately 12 cm. An intramuralhypoattenuating lesion with peripheral enhancement in the rectosigmoid mayreflect intramural collection versus luminal contents (2:114). Few rectosigmoid diverticuli without diverticulitis. No evidence ofobstruction at this time.PELVIS/BLADDER: The urinary bladder is mildly distended without wallthickening. The uterus is unremarkable. A dominant follicle is noted in theright ovary measuring 2.3 cm. The left ovary is unremarkable. Trace pelvicfree fluid is present.VESSELS: Patent abdominal vasculature. No significant atheroscleroticcalcifications in the abdominal aorta.BONES AND SOFT TISSUES: No suspicious lytic or scleroticbony lesions.Hardware fixation of the proximal left femur is partially visualized.IMPRESSIONFocal circumferential thickening of the stomach antrum/pylorus concerningfor malignancy. Direct visualizationwith endoscopy is recommended.Marked circumferential segmental rectosigmoid thickening and luminalnarrowing. Underlying mass is not completely excluded. Colitis is anotherpossibility. However, there isno significant hyperemia to this region.Recommend GI consult and endoscopy.Scattered nodular soft tissue densities throughout the peritoneal cavityare concerning for peritoneal carcinomatosis. Recommend tissue sampling.Rectosigmoid intramural collection measuring 1.0 cm with mild peripheralenhancement. Alternatively, this lesion may represent intraluminal pocketof fluid. Assessment is difficult due to prominent wall thickening.Indeterminate 1.5 cm left and 0.7 cm right adrenal nodules. Furthernonemergent evaluation with CT adrenal mass protocol is recommended.Hepatosteatosis.Preliminary Report Dictated by Resident: Domenic Rose MD., have reviewed this study and agree with theabove report.[facility] WITH DIFFERENTIAL 2020-03-03 10:27:00 Test Item Value Reference Range Interpretation Comments WBC (test code = See_Comment H [Automated 7767-2) message] The system which generated this result transmit carrie reference range : 4.30 - 11.10 10*3/?L. The reference range was not used to interpret this result as normal/abnormal . RBC (test code = See_Comment L [Automated 089-8) message] The system which generated this result transmit carrie reference range : 3.93 - 5.25 10*6/?L. The reference range was not used to interpret this result as normal/abnormal . HGB (test code = 12.1 g/dL 11.6-15 718-7) HCT (test code = 36.0 % 35.7-45.2 4544-3) MCV (test code = 92.3 fL 80.6-95.5 787-2) MCH (test code = 31.0 pg 25.9-32.8 785-6) MCHC (test code = 33.6 g/dL 31.6-35.1 786-4) RDW-SD (test code = 48.2 fL 39-49.9 09494-3) RDW-CV (test code = 14.3 % 12-15.5 788-0) PLT (test code = See_Comment [Automated 777-3) message] The system which generated this result transmit carrie reference range : 166 - 358 10*3/ ?L. The reference range was not u sed to interpret th is result as normal/abnormal . MPV (test code = 11.9 fL 9.5-12.9 50364-6) NRBC/100 WBC (test See_Comment [Automat ed code = 7953072160) message] The system which generated this result transmit carrie reference range : 0.0 - 10.0 /100 WBCs. The reference range was not used to interpret this result as normal/abnormal . NRBC x10^3 (test code <0.01 See_Comment [Auto mated = 6879879777) message] The system which generated this result transmit carrie reference range : 10*3/?L. The reference range was not used to interpret this result as normal/abnormal . GRAN MAT (NEUT) % 88.6 % (test code = 770-8) IMM GRAN % (test code 0.80 % = 6844092423) LYMPH % (test code = 5.1 % 736-9) MONO % (test code = 5.3 % 5905-5) EOS % (test code = 0.0 % 713-8) BASO % (test code = 0.2 % 706-2) GRAN MAT x10^3(ANC) 17.00 10*3/uL 1.88-7.09 H (test code = 0298856350) IMM GRAN x10^3 (test 0.16 10*3/uL 0-0.06 H code = 7713483211) LYMPH x10^3 (test code 0.97 10*3/uL 1.32-3.29 L = 731-0) MONO x10^3 (test code 1.02 10*3/uL 0.33-0.92 H = 742-7) EOS x10^3 (test code = <0.03 0.03-0.39 L 711-2) BASO x10^3 (test code 0.03 10*3/uL 0.01-0.07 = 704-7) Lab Interpretation Abnormal (test code = 41254-9) [facility] Metabolic Panel (NA, K, CL, CO2, GLUCOSE, BUN, CREATININE, CA)2020-03-03 09:50:00 Test Item Value Reference Range Interpretation Comments NA (test code = 134 mmol/L 135-145 L 1556748668) K (test code = 3.9 mmol/L 3.5-5 8394369742) CL (test code = 103 mmol/L 98-108 2605908816) CO2 TOTAL (test code = 22 mmol/L 23-31 L 7073319617) AGAP (test code = 2-16 8024244990) BUN (test code = 5 mg/dL 7-23 L 0729930998) GLUCOSE (test code = 139 mg/dL 70-110 H 1081150554) CREATININE (test code = 0.37 mg/dL 0.5-1.04 L 1193186423) CALCIUM (test code = 9.5 mg/dL 8.6-10.6 0682427276) eGFR Calculation mL/min/1.73m2 (Non-) (test code = 2825549104) eGFR Calculation mL/min/1.73m2 () (test code = 2804040724) THEODORA (test code = THEODORA) Association of Glomerular Filtration Rate (GFR) and Staging of Kidney Disease* + --+ --+ ------+| GFR (mL/min/1.73 m2) ?| With Kidney Damage ?| ?Without Kidney Damage+ --------+ --------+ +| ?>90 ?| ?Stage one ?| ? Normal ?+ ---+ ---+ -------+| ?60-89 ?| ?Stage two ?| ? Decreased GFR ? + --+ --+ ------+| ?30-59 ?| ?Stage three ?| ? Stage three ? + --+ --+ ------+| ?15-29 ?| ?Stage four ? | ? Stage four ?+ ---+ ---+ -------+| ?<15 (or dialysis) ? ?| ?Stage five ? | ? Stage five ?+ ---+ ---+ -------+ *Each stage assumes the associated GFR level has been in effect for at least three months. ?Stages 1 to 5, with or without kidney disease, indicate chronic kidney disease. Notes: Determination of stages one and two (with eGFR >59mL/min/1.73 m2) requires estimation of kidney damage for at least three months as defined by structural or functional abnormalities of the kidney, manifested by either:Pathological abnormalities or Markers of kidney damage (including abnormalities in the composition of the blood or urine or abnormalities in imaging tests). Lab Interpretation Abnormal (test code = 84355-3) [facility]XR [facility] [id number] 17:54:41 No acute intrathoracic abnormality. The bowel gas pattern is nonobstructive. Air- fluid levels are visualizedwithin the gastric body and small bowel without dilatation or evidence offree air on erect images. Preliminary Report Dictated by Resident: Zane Wu MD., have reviewedthis study and agree with the abovereport.PROCEDURE: XR ABDOMEN ACUTE SERIES CLINICAL INDICATION: vomiting COMPARISON: None FINDINGS: The lungs are well-expanded and clear without focal consolidation,pleuraleffusion, or pneumothorax. No subdiaphragmatic free air. The cardiac silhouette is normal in size. No subdiaphragmatic air is seen on erect images. Air-fluid levels arevisualized within the gastric body and loops of small bowel without dilatedbowel loops. No radiopaque stones or abnormal calcifications areidentified. No acute osseous abnormality. Andres and screw fixation securing a leftfemoral fracture is partially visualized superior liver. [facility], Radiant Results Inft User - 03/02/2020 12:55 PM CDTPROCEDURE: XR ABDOMEN ACUTE SERIESCLINICAL INDICATION: vomiting COMPARISON: NoneFINDINGS:The lungs are well-expanded and clear without focal consolidation, pleuraleffusion, or pneumothorax. No subdiaphragmatic free air.The cardiac silhouette is normal in size. No subdiaphragmatic air is seen on erect images. Air-fluid levels arevisualized within the gastric body and loops of small bowel without dilatedbowel loops. No radiopaque stones or abnormal calcifications areidentified.No acute osseous abnormality. Andres and screw fixation securing a leftfemoral fracture is partially visualized superior liver.IMPRESSIONNo acute intrathoracic abnormality.The bowel gas pattern is nonobstructive. Air-fluid lev els are visualizedwithin the gastric body and small bowel without dilatation or evidence offree air on erect images.Preliminary Report Dictated by Resident: Zane Becerra MD., have reviewed this study and agree with the abovereport.[facility] CenterUrinalysis2020-04-20 16:47:00 Test Item Value Reference Range Interpretation Comments APPEARANCE (test code = Clear Clear 0150146652) COLOR (test code = Straw Yellow A 8767777551) PH (test code = 4.8-8.0 7267421721) SP GRAVITY (test code = 1.003-1.030 5944104057) GLU U QUAL (test code = 50 mg/dL Normal A 0326780134) BLOOD (test code = Negative Negative 2140804223) KETONES (test code = 80 mg/dL Negative A 1033086283) PROTEIN (test code = Negative Negative 2887-8) UROBILIN (test code = Normal Normal 0294548902) BILIRUBIN (test code = Negative Negative 1422562953) NITRITE (test code = Negative Negative 5174361314) LEUK BIRDIE (test code = Negative Negative 0237839719) RBC/HPF (test code = See_Comment [Autom ated message] 4452792885) The system [employer] generated this result transmitted ref erence range: 0 - 3 HP F. The reference range was not used to int erpret this result as normal/abnormal . WBC/HPF (test code = See_Comment [Autom ated message] 5614525537) The system [employer] generated this result transmitted ref erence range: 0 - 5 HP F. The reference range was not used to int erpret this result as normal/abnormal . BACTERIA (test code = Negative Negative 5597580138) MUCOUS (test code = Slight Negative LPF A 6814927859) SQ EPITH (test code = HPF 5886333980) Lab Interpretation (test Abnormal code = 06116-8) [facility] / [facility] - DRUG SCREEN [id number] 16:45:00 Test Item Value Reference Range Interpretation Comments BENZO U (test code = Negative Negative 2634557767) KOTA U (test code = Negative Negative 7624952985) AMPHET (test code = Negative Negative 0186847624) THC (test code = Presumptive Negative A Confirmatio n of 4698726016) Positive Presumptive Positive THC result requires physician order . METHADONE (test code Negative Negative = 5183570750) Meth U (test code = Negative Negative 1485011061) OPIATES (test code = Presumptive Negative A 8823601799) Positive Cocaine Metabolite Negative Negative (test code = 6900089471) PROPOXY (test code = Negative Negative 3646313324) Tric U (test code = Negative Negative 7767980320) PCP (test code = Negative Negative 4312822293) OXYCOD (test code = Negative Negative 9043687871) THEODORA (test code = Urine Drug Cutoff THEODORA) Ranges Benzodiazepines: ? ? 150 ng/mLBarbiturates : ?200 ng/mLAmphetamine: ? 500 ng/mLCannabinoids : ?50 ?ng/mLMethadone: ? 200 ng/mLMethamphetam ine: ? ? 500 ng/mL Opiates: ? 100 ng/mL or 2000 ng/mLCocaine: ? 150 ng/mLPropoxyphene : ?300 ng/mLTricyclics: ?300 ng/mLOxycodone: ? 100 ng/mLPCP: ? 25 ?ng/mL The results are to be used only for medical (i.e., treatment) purposes. Unconfirmed screening results must not be used for non-medical purposes (e.g., employment testing, legal testing). Lab Interpretation Abnormal (test code = 62316-4) [facility] CenterPREGNANCY TEST, [id number] 16:08:00 Test Item Value Reference Range Interpretation Comments PREG SERUM (test code Negative = 8588508059) THEODORA (test code = THEODORA) Less than 10 IU/L. ?If low titer or ectopic is suspected, resubmit specimen in 48-72 hours. [facility] CenterLIPASE2020-04-20 15:45:00 Test Item Value Reference Range Interpretation Comments LIPASE (test code = 9013672831) 67 U/L 0-220 Lab Interpretation (test code = Normal 25064-8) [facility] CenterETHANOL2020-04-20 15:38:00 Test Item Value Reference Range Interpretation Comments ALCOHOL (test code = <10 mg/dL 8182045176) THEODORA (test code = THEODORA) <10 Gnyfihov06-513 Toxic>100 Depression of MANAGER PUBLISHING>400 Fatalities Reported [facility] CenterTroponin [id number] 15:01:00 Test Item Value Reference Range Interpretation Comments TROPONIN I (test <0.012 See_Comment [Automated code = 6210282709) message] The system which generated this result transmitted reference range : <=0.034 ng/mL. The reference range was not used to interpr et this result as normal/abnormal . THEODORA (test code = Equal or Less than THEODORA) 0.034 ng/ml---Normal ?Note: Cardiac troponin begins to rise 3-4 hours after the onset of ischemia. Repeat in 4-6 hours if the sample was drawn within 3-4 hours of the onset of the symptom and found normal. Between 0.035 and 0.120 ng/mL--- Borderline. Questionable myocardial injury or necrosis ? ?Note: Serial measurement may be necessary to confirm or exclude the diagnosis of myocardial injury or necrosis; Clinical correlation (symptoms, EKGs, imaging studies, and others) required; Repeat in 4-6 hours if clinically indicated. ? Equal or Higher than 0.121 ng/mL---Abnormal. Myocardial Injury or Necrosis Likely ? Biotin has been reported to cause a negative bias, interpret results relative to patient's use of biotin. ? Lab Interpretation Normal (test code = 73514-4) [facility] CenterN-TERMINAL [id number] 14:58:00 Test Item Value Reference Range Interpretation Comments NT-proBNP (test code 2310 pg/mL See_Comment H [Autom ated = 2157782899) message] The system which generated this result transmitted reference range : <=125. The reference range was not used to interpret this result as normal/abnormal . THEODORA (test code = THEODORA) Biotin has been reported to cause a negative bias, interpret results relative to patient's use of biotin. Lab Interpretation Abnormal (test code = 77119-8) [facility] CenterCORONAVIRUS COVID-19 [id number] 14:58:00 Test Item Value Reference Range Interpretation Comments SARS-CoV-2 (test code = Not Detected Not Detected 23279-2) THEODORA (test code = THEODORA) ID NOW COVID-19 Assay is an isothermal nucleic acid amplification test intended for the qualitative detection of nucleic acid from SARS-CoV-2 viral RNA in nasopharyngeal (EVENT [employer]ING [employer]) specimens. It is used under Emergency Use Authorization (EUA) by FDA. The limit of detection (LOD) of the assay is 125 Genome Equivalents/mL. A positive result is indicative of the presence of SARS-CoV-2 RNA. ?Clinical correlation with patient history and other diagnostic information is necessary to determine patient infection status. A negative (Not Detected) result does not preclude SARS-CoV-2 infection. Clinical correlation with patient history and other diagnostic information should be used in patient management decisions. Invalid: Please collect a new specimen for repeat patient testing if clinically indicated. Lab Interpretation Normal (test code = 68588-8) [facility] CenterProthrombin Time (PT) / [id number] 14:52:00 Test Item Value Reference Range Interpretation Comments PROTIME PATIENT (test See_Comment [Auto mated message] code = 5964-2) The system wh ich generated this result transmitted ref erence range: 12.0 - 1 4.7 Seconds. The re ference range was not u sed to interpret this result as normal/abnor mal. INR (test code = 6301-6) Nor mal INR <1.1; Warfarin Therap eutic range 2.0 to 3. 0 or 2.5 to 3.5, dep ending upon the indica tions. Lab Interpretation (test Normal code = 21329-6) [facility] CenteraPTT2020-04-20 14:51:00 Test Item Value Reference Range Interpretation Comments APTT Patient (test See_Comment [Automat ed code = 3173-2) message] The system which generated this result transmitted reference range : 23 - 38 Seconds . The reference range was not used to interpr et this result as normal/abnormal . THEODORA (test code = THEODORA) The [facility] patient population mean normal value for aPTT is 30 seconds. Lab Interpretation Normal (test code = 07514-3) [facility] CenterBasi Metabolic Panel (NA, K, CL, CO2, GLUCOSE, BUN, CREATININE, CA)2020-03-02 14:49:00 Test Item Value Reference Range Interpretation Comments NA (test code = 139 mmol/L 135-145 8579544709) K (test code = 3.8 mmol/L 3.5-5 9469542777) CL (test code = 108 mmol/L 98-108 0012870442) CO2 TOTAL (test code = 21 mmol/L 23-31 L 2721473392) AGAP (test code = 2-16 7196284876) BUN (test code = 8 mg/dL 7-23 7602425341) GLUCOSE (test code = 133 mg/dL 70-110 H 0118701535) CREATININE (test code = 0.55 mg/dL 0.5-1.04 7933473473) CALCIUM (test code = 10.7 mg/dL 8.6-10.6 H 8164026876) eGFR Calculation mL/min/1.73m2 (Non-) (test code = 6758942236) eGFR Calculation mL/min/1.73m2 () (test code = 2917057406) THEODORA (test code = THEODORA) Association of Glomerular Filtration Rate (GFR) and Staging of Kidney Disease* + --+ --+ ------+| GFR (mL/min/1.73 m2) ?| With Kidney Damage ?| ?Without Kidney Damage+ --------+ --------+ +| ?>90 ?| ?Stage one ?| ? Normal ?+ ---+ ---+ -------+| ?60-89 ?| ?Stage two ?| ? Decreased GFR ? + --+ --+ ------+| ?30-59 ?| ?Stage three ?| ? Stage three ? + --+ --+ ------+| ?15-29 ?| ?Stage four ? | ? Stage four ?+ ---+ ---+ -------+| ?<15 (or dialysis) ? ?| ?Stage five ? | ? Stage five ?+ ---+ ---+ -------+ *Each stage assumes the associated GFR level has been in effect for at least three months. ?Stages 1 to 5, with or without kidney disease, indicate chronic kidney disease. Notes: Determination of stages one and two (with eGFR >59mL/min/1.73 m2) requires estimation of kidney damage for at least three months as defined by structural or functional abnormalities of the kidney, manifested by either:Pathological abnormalities or Markers of kidney damage (including abnormalities in the composition of the blood or urine or abnormalities in imaging tests). Lab Interpretation Abnormal (test code = 13832-5) [facility] CenterHepatic Function Panel (ALB, T.PRO, BILI T, BU/BC, ALT, AST, ALK PHOS)2020-03-02 14:49:00 Test Item Value Reference Range Interpretation Comments TOTAL BILI (test code = 1285027301) 0.5 mg/dL 0.1-1.1 BILI UNCON (test code = 0825395422) 0.6 mg/dL 0.1-1.1 BILI CONJ (test code = 6014795109) 0.0 mg/dL 0-0.3 T PROTEIN (test code = 1070189603) 7.9 g/dL 6.3-8.2 ALBUMIN (test code = 5576116833) 4.6 g/dL 3.5-5 ALK PHOS (test code = 8971333909) 99 U/L 34-122 ALTv (test code = 1742-6) 17 U/L 5-35 AST(SGOT) (test code = 0721032097) 29 U/L 13-40 Lab Interpretation (test code = Normal 98505-1) [facility] WITH [id number] 14:44:00 Test Item Value Reference Range Interpretation Comments WBC (test code = See_Comment [Automated 1490-2) message] The sy stem which generated this result transmitted reference range : 4.30 - 11.10 10*3/?L. The reference range was not used to interpret this result as normal/abnormal . RBC (test code = See_Comment [Automated 991-8) message] The sy stem which generated this result transmitted reference range : 3.93 - 5.25 10*6/?L. The reference range was not used to interpret this result as normal/abnormal . HGB (test code = 14.1 g/dL 11.6-15 718-7) HCT (test code = 43.7 % 35.7-45.2 4544-3) MCV (test code = 93.8 fL 80.6-95.5 787-2) MCH (test code = 30.3 pg 25.9-32.8 785-6) MCHC (test code = 32.3 g/dL 31.6-35.1 786-4) RDW-SD (test code = 48.9 fL 39-49.9 20120-1) RDW-CV (test code = 14.1 % 12-15.5 788-0) PLT (test code = See_Comment [Automated 777-3) message] The sy stem which generated this result transmitted reference range : 166 - 358 10*3/ ?L. The reference r cayden was not used to interpret this result as normal/abnormal . MPV (test code = 10.8 fL 9.5-12.9 88081-3) NRBC/100 WBC (test See_Comment [Automat ed code = 5406919767) message] The system which generated this result transmitted reference range : 0.0 - 10.0 /100 WBCs. The refer ence range was not u sed to interpret th is result as normal/abnormal . NRBC x10^3 (test code <0.01 See_Comment [Auto mated = 6097592637) message] The s ystem which generated this result transmitted reference range : 10*3/?L. The reference range was not used to interpret this result as normal/abnormal . GRAN MAT (NEUT) % 82.3 % (test code = 770-8) IMM GRAN % (test code 0.60 % = 0102446279) LYMPH % (test code = 11.1 % 736-9) MONO % (test code = 4.9 % 5905-5) EOS % (test code = 0.7 % 713-8) BASO % (test code = 0.4 % 706-2) GRAN MAT x10^3(ANC) 8.66 10*3/uL 1.88-7.09 H (test code = 7408822636) IMM GRAN x10^3 (test 0.06 10*3/uL 0-0.06 code = 5365693062) LYMPH x10^3 (test code 1.17 10*3/uL 1.32-3.29 L = 731-0) MONO x10^3 (test code 0.52 10*3/uL 0.33-0.92 = 742-7) EOS x10^3 (test code = 0.07 10*3/uL 0.03-0.39 711-2) BASO x10^3 (test code 0.04 10*3/uL 0.01-0.07 = 704-7) Lab Interpretation Abnormal (test code = 76322-6) [facility] WITH [id number] 17:56:00 Test Item Value Reference Range Interpretation Comments WBC (test code = See_Comment [Automated 6690-2) message] The sy stem which generated this result transmitted reference range : 4.30 - 11.10 10*3/?L. The reference range was not used to interpret this result as normal/abnormal . RBC (test code = See_Comment L [Automated 789-8) message] The sy stem which generated this result transmitted reference range : 3.93 - 5.25 10*6/?L. The reference range was not used to interpret this result as normal/abnormal . HGB (test code = 11.3 g/dL 11.6-15 L 718-7) HCT (test code = 34.9 % 35.7-45.2 L 4544-3) MCV (test code = 98.0 fL 80.6-95.5 H 787-2) MCH (test code = 31.7 pg 25.9-32.8 785-6) MCHC (test code = 32.4 g/dL 31.6-35.1 786-4) RDW-SD (test code = 63.9 fL 39-49.9 H 43556-5) RDW-CV (test code = 17.8 % 12-15.5 H 788-0) PLT (test code = See_Comment [Automated 777-3) message] The sy stem which generated this result transmitted reference range : 166 - 358 10*3/ ?L. The reference r cayden was not used to interpret this result as normal/abnormal . MPV (test code = 10.6 fL 9.5-12.9 35003-8) NRBC/100 WBC (test See_Comment [Automat ed code = 6973311578) message] The system which generated this result transmitted reference range : 0.0 - 10.0 /100 WBCs. The refer ence range was not u sed to interpret th is result as normal/abnormal . NRBC x10^3 (test code <0.01 See_Comment [Auto mated = 5538715026) message] The s ystem which generated this result transmitted reference range : 10*3/?L. The reference range was not used to interpret this result as normal/abnormal . GRAN MAT (NEUT) % 76.2 % (test code = 770-8) IMM GRAN % (test code 0.20 % = 9263183979) LYMPH % (test code = 13.7 % 736-9) MONO % (test code = 5.8 % 5905-5) EOS % (test code = 3.1 % 713-8) BASO % (test code = 1.0 % 706-2) GRAN MAT x10^3(ANC) 7.17 10*3/uL 1.88-7.09 H (test code = 9004021779) IMM GRAN x10^3 (test <0.03 0-0.06 code = 5589917612) LYMPH x10^3 (test code 1.29 10*3/uL 1.32-3.29 L = 731-0) MONO x10^3 (test code 0.55 10*3/uL 0.33-0.92 = 742-7) EOS x10^3 (test code = 0.29 10*3/uL 0.03-0.39 711-2) BASO x10^3 (test code 0.09 10*3/uL 0.01-0.07 H = 704-7) Lab Interpretation Abnormal (test code = 42065-9) [facility] CenterGLYCOSYLATED HEMOGLOBIN (A1C)2020-01-01 17:52:00 Test Item Value Reference Range Interpretation Comments HGB A1C (test code = 5.0 % 4-6 4548-4) THEODORA (test code = THEODORA) %A1C (NGSP) Interpretation (ADA)4.8-5.6 ? ? Normal or (Non-Diabetic Range)5.7-6.4 ? ? Increased Risk (Pre-Diabetic)>6.5 ?Diabetes Indicated Lab Interpretation Normal (test code = 34951-3) [facility]
[2022-03-12] MEDS ORDERED: LIDOCAINE 1% 20 ML MDV ONE (00:10)
[2022-03-12] MEDS ORDERED: HYDROCODONE/APAP 5/325 MG TAB ONE (00:18)
--- NOTE | 2022-03-12 02:40 | ER ---
Nurse's Notes [facility] Name: Melanie Salgado Age: 46 yrs Sex: Female : 1975 Arrival Date: 03/11/2022 Time: 22:42 Bed 6 Private MD: Diagnosis: Abscess of Bartholin's gland Presentation: 03/11 23:22 Chief complaint: Patient states: C/O right groin pain 08/22, abscess noted, pt states ll3 pain started on monday. Coronavirus screen: Vaccine status: Patient reports receiving the 2nd dose of the covid vaccine. At this time, the client does not indicate any symptoms associated with coronavirus-19. Ebola Screen: No symptoms or risks identified at this time. Initial Sepsis Screen: Does the patient meet any 2 criteria? No. Patient's initial sepsis screen is negative. Does the patient have a suspected source of infection? No. Patient's initial sepsis screen is negative. Risk Assessment: Do you want to hurt yourself or someone else? Patient reports no desire to harm self or others. Onset of symptoms was March 09, 2022. 23:22 Method Of Arrival: Ambulatory ll3 23:22 Acuity: STEVEN 3 ll3 Triage Assessment: 23:24 General: Appears uncomfortable, Behavior is cooperative, crying. Pain: Complains of ll3 pain in groin Pain currently is 10 out of 10 on a pain scale. Derm: Abscess located on groin Reports pain that is 10 out of 10 on a pain scale. 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 - Social history:: Smoking status: Reported history of juuling and/or vaping. Screenin:27 Abuse screen: Denies threats or abuse. Nutritional screening: No deficits noted. ll3 Tuberculosis screening: No symptoms or risk factors identified. 03/12 01:40 Fall Risk None identified. vc1 Assessment: 00:03 General: Appears in no apparent distress. Behavior is crying. Pain: Complains of pain ag7 in right groin Pain does not radiate. Pain currently is 10 out of 10 on a pain scale. Quality of pain is described as burning, aching, sharp, Pain began suddenly, Is continuous, Alleviated by nothing. Neuro: Level of Consciousness is awake, alert, obeys commands, Oriented to Appropriate for age Velocity Shooter are equal bilaterally. Cardiovascular: Heart tones S1 S2 present Capillary refill < 3 seconds in bilateral fingers Patient's skin is warm and dry. Respiratory: Airway is patent Trachea midline Respiratory effort is even, unlabored, Respiratory pattern is regular, symmetrical. : Blisters noted Swelling noted on labia on perineum right side with erythema. 01:00 Reassessment: Patient and/or family updated on plan of care and expected duration. Pain vc1 level reassessed. Patient states symptoms have not improved. 02:00 Reassessment: Patient and/or family updated on plan of care and expected duration. Pain vc1 level reassessed. Patient states symptoms have not improved. General: Appears in no apparent distress. uncomfortable, Behavior is crying, inappropriate for age. Pain: Complains of pain in right labia majora Pain does not radiate. Pain currently is 10 out of 10 on a pain scale. Quality of pain is described as burning, sharp. Neuro: Level of Consciousness is awake, alert, obeys commands, Oriented to person, place, time, situation, Appropriate for age. Vital Signs: 03/11 23:22 BP 162 / 90; Pulse 92; Resp 16; Temp 98.1(O); Pulse Ox 100% on R/A; Weight 90.26 kg ll3 (R); Height 5 ft. 4 in. (162.56 cm) (R); Pain 10/10; 03/12 01:38 BP 155 / 86; Pulse 89; Resp 16; Pulse Ox 100% on R/A; vc1 03/11 23:22 Body Mass Index 34.16 (90.26 kg, 162.56 cm) ll3 ED Course: 03/11 22:42 Patient arrived in ED. kz 23:19 Danita Prajapati RN is Primary Nurse. ag7 23:19 Dennis Horner MD is Attending Physician. mh7 23:24 Triage completed. ll3 23:24 Arm band placed on Patient placed in an exam room, on a stretcher, on pulse oximetry. ll3 23:27 Patient has correct armband on for positive identification. Placed in gown. Bed in low ll3 position. Call light in reach. Side rails up X 1. 03/12 02:39 Assist provider with I \T\ D: of an abscess on right Bartholin's gland Set up I\T\D tray. vc 1 Performed by Dennis Horner MD Wound packed. iodoform gauze, Dressing with 4X4s, tape Patient tolerated poorly. 02:56 Patient did not have IV access during this emergency room visit. vc1 Administered Medications: 02:39 Drug: Lidocaine (1 %) 10 ml Volume: 20 ml; Route: Infiltration; vc1 Outcome: 02:39 Discharge ordered by . [facility] 02:55 Discharged to home ambulatory. vc1 02:55 Condition: good 02:55 Discharge instructions given to patient, Instructed on discharge instructions, follow up and referral plans. wound care, Demonstrated understanding of instructions, follow-up care, medications, wound care, Prescriptions given X 2. 02:56 Patient left the ED. vc1 Signatures: Dennis Horner MD MD 7 Lars Ash RN RN ll3 Roxy Ribeiro RN RN vc1 Delfina Mckeon Angela, RN RN ag7
--- NOTE | 2022-03-12 02:40 | EDPHYS ---
Physician Documentation [facility] Name: Melanie Salgado Age: 46 yrs Sex: Female : 1975 Arrival Date: 03/11/2022 Time: 22:42 Bed 6 Private MD: TRIP Physician Dennis Horner HPI: 03/11 23:59 This 46 yrs old Female presents to ER via Ambulatory with complaints of Leg Swelling - mh7 Right. 23:59 the patient presents with a swollen area of the right labia. Description: draining, mh7 erythematous, swollen. Onset: The symptoms/episode began/occurred 4 day(s) ago. Possible cause(s): unknown. Associated signs and symptoms: Pertinent negatives: discharge, foreign body sensation, fever, headache, nausea, shortness of breath, vomiting. Modifying factors: the symptoms are alleviated by nothing, the symptoms are aggravated by squeezing the lesion and expressing the contents, touching. Severity of symptoms: At their worst the symptoms were moderate, 2 day(s) ago, in the emergency department the symptoms are unchanged. The patient has experienced a previous episode, approximately 3 years ago. 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 - Social history:: Smoking status: Reported history of juuling and/or vaping. ROS: 23:59 Constitutional: Negative for fever, chills, and weight loss, Eyes: Negative for injury, mh7 pain, redness, and discharge, ENT: Negative for injury, pain, and discharge, Neck: Negative for injury, pain, and swelling, Cardiovascular: Negative for chest pain, palpitations, and edema, Respiratory: Negative for shortness of breath, cough, wheezing, and pleuritic chest pain, Abdomen/GI: Negative for abdominal pain, nausea, vomiting, diarrhea, and constipation, Back: Negative for injury and pain, MS/Extremity: Negative for injury and deformity, Neuro: Negative for headache, weakness, numbness, tingling, and seizure, Psych: Negative for depression, anxiety, suicide ideation, homicidal ideation, and hallucinations, Allergy/Immunology: Negative for hives, rash, and allergies, Endocrine: Negative for neck swelling, polydipsia, polyuria, polyphagia, and marked weight changes, Hematologic/Lymphatic: Negative for swollen nodes, abnormal bleeding, and unusual bruising. Exam: 23:59 Constitutional: This is a well developed, well nourished patient who is awake, alert, mh7 and in no acute distress. Head/Face: Normocephalic, atraumatic. Eyes: Pupils equal round and reactive to light, extra-ocular motions intact. Lids and lashes normal. Conjunctiva and sclera are non-icteric and not injected. Cornea within normal limits. Periorbital areas with no swelling, redness, or edema. Neck: Trachea midline, no thyromegaly or masses palpated, and no cervical lymphadenopathy. Supple, full range of motion without nuchal rigidity, or vertebral point tenderness. No Meningismus. Chest/axilla: Normal chest wall appearance and motion. Nontender with no deformity. No lesions are appreciated. Cardiovascular: Regular rate and rhythm with a normal S1 and S2. No gallops, murmurs, or rubs. Normal PMI, no JVD. No pulse deficits. Respiratory: Lungs have equal breath sounds bilaterally, clear to auscultation and percussion. No rales, rhonchi or wheezes noted. No increased work of breathing, no retractions or nasal flaring. Abdomen/GI: Soft, non-tender, with normal bowel sounds. No distension or tympany. No guarding or rebound. No evidence of tenderness throughout. Back: No spinal tenderness. No costovertebral tenderness. Full range of motion. MS/ Extremity: Pulses equal, no cyanosis. Neurovascular intact. Full, normal range of motion. Neuro: Awake and alert, GCS 15, oriented to person, place, time, and situation. Cranial nerves II-XII grossly intact. Motor strength 5/5 in all extremities. Sensory grossly intact. Cerebellar exam normal. Normal gait. Psych: Awake, alert, with orientation to person, place and time. Behavior, mood, and affect are within normal limits. 23:59 : Pelvic Exam: External exam: Bartholin's cyst present, erythema is noted, the nurse mh7 was present for the exam. 23:59 Skin: abscess, that is small, approximately 2 cm(s), of the right outer labia, with fluctuance, that is mild, with induration. Vital Signs: 23:22 BP 162 / 90; Pulse 92; Resp 16; Temp 98.1(O); Pulse Ox 100% on R/A; Weight 90.26 kg ll3 (R); Height 5 ft. 4 in. (162.56 cm) (R); Pain 08/22; 03/12 01:38 BP 155 / 86; Pulse 89; Resp 16; Pulse Ox 100% on R/A; vc1 03/11 23:22 Body Mass Index 34.16 (90.26 kg, 162.56 cm) ll3 Procedures: 02:30 I \T\ D: Incision and drainage was performed for an abscess of the right Bartholin's mh7 gland. Prepped with Betadine, Anesthetized with 5 ml's 1% Lidocaine. Incised with #11 blade. Drained small amount purulent fluid. Loculations removed. Abscess cavity explored. Packed with iodoform gauze, Dressing: non-Adherent dressing, the patient tolerated the procedure well. MDM: 02:37 Differential diagnosis: abscess, allergic reaction, cellulitis. Data reviewed: vital [facility] signs, nurses notes. Data interpreted: Pulse oximetry: on room air is 100 %. Interpretation: normal. Counseling: I had a detailed discussion with the patient and/or guardian regarding: the historical points, exam findings, and any diagnostic results supporting the discharge/admit diagnosis, the need for outpatient follow up, to return to the emergency department if symptoms worsen or persist or if there are any questions or concerns that arise at home. Response to treatment: the patient's symptoms have markedly improved after treatment. 02:39 Patient medically screened. [facility] Administered Medications: 02:39 Drug: Lidocaine (1 %) 10 ml Volume: 20 ml; Route: Infiltration; vc1 Disposition Summary: 03/12/22 02:39 Discharge Ordered Location: Home [facility] Problem: new [facility] Symptoms: have improved mh Condition: Stable [facility] Diagnosis - Abscess of Bartholin's gland [facility] Followup: [facility] - With: Private Physician - When: 1 - 2 days - Reason: Wound Recheck, Worsening of condition, Recheck today's complaints, Continuance of care, Re-evaluation by your physician Followup: [facility] - With: Emergency Department - When: 48 Hours - Reason: Wound Recheck, Worsening of condition, Re-evaluation by your physician Discharge Instructions: - Discharge Summary Sheet [facility] - Incision and Drainage [facility] - Skin Abscess, [id number] [facility] - Bartholin's Cyst, [id number] [facility] - Incision and Drainage, Care After [facility] Forms: - Medication Reconciliation Form [facility] - Thank You Letter [facility] - Antibiotic Education [facility] - Prescription Opioid Use [facility] - Work release form vc1 Prescriptions: - ketorolac 10 mg Oral tablet - take 1 tablet by ORAL route every 6 hours As needed not to exceed 40 mg in [facility] 24hrs; 12 tablet; Refills: 0, Product Selection Permitted - Clindamycin HCl 300 mg Oral Capsule - take 1 capsule by ORAL route every 6 hours for 7 days; 28 capsule; Refills: 0, 7 Product Selection Permitted Signatures: Dennis Horner MD MD 7 Lars Ash RN RN 3 Roxy Ribeiro RN RN 1
[2022-03-12 03:16] VITALS: TEMP 98.1; O2SAT 100
[2022-03-12 03:17] VITALS: BP 155/86
== END 2022-03-12 02:56 | disposition home or self-care (01) ==
LOC: ER 22:39
PROC: 0U9L0ZZ Drainage of Vestibular Gland, Open Approach (ICD-10-PCS; principal; 2022-03-12)
DX: N75.1 Abscess of Bartholin's gland (principal); I10 Essential (primary) hypertension; Z88.3 Allergy status to other anti-infective agents
CPT/HCPCS: 99284

== ENCOUNTER 2024-05-21 08:52 | Emergency (ER) | payer SELFPAY ==
--- OUTSIDE RECORDS SUMMARY | 2024-05-21 09:09 | XMS REPORT | Continuity of Care Document ---
Author Name Unknown Address [address] [place] [address] [facility] Address 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 Role Phone PCP, PATIENT DOES NOT HAVE A Primary Care Physic olya Unavailable JIMBO ROMERO Attending Clinician UnavailJIMBO Mccord Attending Clinician UnavailISABELL Mata Attending Clinician Unavailable Sandro YIP, Jeanna Attending Clinician [phone] Isabell Lizarraga MD Attending Clinician +[phone] JESSICA PIEDRA Attending Clinician Unavailable Nighat Sanchez RN Attending Clinician Unavailable RUBIA SALEEM Attending Clinician UnavailBenedicto Nunes MD Attending Clinician [phone] Rubia Saleem MD Attending Clinician [phone] Jessica Piedra MD Attending Clinician [phone] NINFA PEARL Attending Clinician UnavailNinfa Alvarez DO Attending Clinician + [phone] Jenn Mcguire RN Attending Clinician UnaTIM Flores Attending Clinician UnavailRuth Clemons MD Attending Clinician [phone] Martha Mays Attending Clinician [phone] Rehan Kuo Attending Clinician [phone] Arnoldo PITTS, Devin Attending Clinician [phone] GORGE MONTES Attending Clinician Unavailhumza Mcneil MD, Cooper Attending Clinician [phone] Maddy Coburn DO Attending Clinician [phone] Ridge MEDICAL TRANSCRIPTION EDITOR, Deejay Attending Clinician [phone] Carlyle PITTS, Mayank Petty Attending Clinician [phone] Mukund PITTS, Louis Simmons Attending Clinician [phone] Chaim PITTS, Paris Rachel Attending Clinician + [phone] Leona GEOSCIENTIST, Evelin Holloway Attending Clinician [phone] Tino Oneil DO Attending Clinician [phone] KIYA FINLEY Attending Clinician Unav nisha Finley ANP, Kiya Attending Clinician Judith Gracia Attending Clinician [phone] Sonam PITTS, Linnea White Attending Clini reshma Regine Howard RN Attending Clinician [phone] Deuce LOVETT, Eliane Attending Clinician Unavailab Andrei PITTS, Antonina Attending Clinician [phone] Piotr Grimm MD Attending Clinician [phone] Meaghan Pandey Attending Clinician Unavailable PARIS PEREZ Attending Clinician ANTONINA Hopkins Attending Clinician Unavailable Lorena PITTS, Randall Nava Attending Clinician Unknown, Attending Attending Clinician UnavailOPHELIA Murguia Attending Clinician Brittany Chow MD, Ophelia Rubi Attending Clinician + [phone] Po, Y[facility] Main Attending Clinician Unavailhumza Su MD, Joselin Dixon Attending Clinician [phone] JIMBO ROMERO Admitting Clinician UnavailISABELL Mata Admitting Clinician Unavailable Elham PITTS, Isabell Admitting Clinician [phone] RUBIA SALEEM Admitting Clinician Unavailhumza Saleem MD, Rubia Staples Admitting Clinician [phone] NINFA PEARL Admitting Clinician Unavailab Rossi PITTS, Devin Admitting Clinician [phone] Maddy Coburn DO Admitting Clinician Mukund PITTS, Louis Simmons Admitting Clinician +[phone] Sonam PITTS, Linnea White Admitting Clini reshma Antonina Delatorre MD Admitting Clinician [phone] ANTNOINA DELATORRE Admitting Clinician Unavailable DEVIN MCLAUGHLIN Admitting Clinician Unavailable Inez PITTS, Ophelia Rubi Admitting Clinician [phone] Payers Payer Name Policy Type Policy Number Effective Date Expirati on Date Source MEDICAID PENDING PENDING 2021 00:00:00 Problems Condition Name Condition Details Condition Category Status Onset Date Resolution Date Last Treatment Date Treating Clinician Comments Source Acute diverticul itis of intestine Acute diverticul itis of intestine Disease Active 3- 00:00: 00 [facility] Generalize d abdominal pain Generalize d abdominal pain Disease Active 3- 00:00: 00 [facility] Pancreatit is, unspecifie d pancreatit is type Pancreatit is, unspecifie d pancreatit is type Disease Active 2022-11 00:00: 00 [facility] Obesity (BMI 30-39.9) Obesity (BMI 30-39.9) Disease Active 2022-11 00:00: 00 [facility] Abdominal pain Abdominal pain Disease Active 6-06 00:00: 00 [facility] Colitis Colitis Disease Active 4-25 00:00: 00 [facility] Nausea & vomiting Nausea & vomiting Disease Active 3-12 00:00: 00 [facility] Current mild episode of major depressive disorder, unspecifie d whether recurrent Current mild episode of major depressive disorder, unspecifie d whether recurrent Disease Active -15 00:00: 00 [facility] Hypokalemi a Hypokalemi a Disease Active -15 00:00: 00 [facility] Colitis due to Clostridiu m difficile Colitis due to Clostridiu m difficile Disease Active 15 00:00: 00 [facility] Intractabl e abdominal pain Intractabl e abdominal pain Disease Active 2019-11 217 00:00: 00 [facility] Alcohol-in duced chronic pancreatit is Alcohol-in duced chronic pancreatit is Disease Active 2019-11 00:00: 00 [facility] Screening for malignant neoplasm of the cervix Screening for malignant neoplasm of the cervix Disease Active 2019-11 00:00: 00 [facility] Need for diphtheria -tetanus-p ertussis (Tdap) vaccine Need for diphtheria -tetanus-p ertussis (Tdap) vaccine Disease Active 2019-11 00:00: 00 [facility] Need for immunizati on against influenza Need for immunizati on against influenza Disease Active 2019-11 00:00: 00 [facility] Benign tumor of adrenal gland, 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, unspecifie d laterality Disease Active 14 00:00: 00 [facility] 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.1 Mild protein-ca hunter malnutriti on Disease Active 05-21 00:00: 00 [facility] 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.1 Mild protein-ca hunter malnutriti on Disease Active 05-21 00:00: 00 [facility] Chronic generalize d pain Chronic generalize d pain Disease Active 04-23 00:00: 00 [facility] Does not have health insurance Does not have health insurance Disease Active 04-23 00:00: 00 [facility] Does not have health insurance Does not have health insurance Disease Active 2020-0 6-11 00:00: 00 [facility] Intractabl e vomiting Intractabl e vomiting Disease Active 524 00:00: 00 [facility] Alcohol-in duced acute pancreatit is, unspecifie d complicati on status Alcohol-in duced acute pancreatit is, unspecifie d complicati on status Disease Active 03-13 00:00: 00 [facility] Alcoholism Alcoholism Disease Active 03-13 00:00: 00 [facility] Generalize d abdominal discomfort Generalize d abdominal discomfort Disease Active 03-13 00:00: 00 [facility] Essential hypertensi on Essential hypertensi on Disease Active 03-13 00:00: 00 [facility] Current severe episode of major depressive disorder without psychotic features, unspecifie d whether recurrent Current severe episode of major depressive disorder without psychotic features, unspecifie d whether recurrent Disease Active 03-13 00:00: 00 [facility] Anxiety Anxiety Disease Active 03-13 00:00: 00 [facility] Encounter for screening mammogram for malignant neoplasm of breast Encounter for screening mammogram for malignant neoplasm of breast Disease Active 03-13 00:00: 00 [facility] Hospital discharge follow-up Hospital discharge follow-up Disease Active 03-13 00:00: 00 [facility] Nicotine dependence , cigarettes , uncomplica carrie Nicotine dependence , cigarettes , uncomplica carrie Disease Active 03-13 00:00: 00 [facility] Tobacco dependence Tobacco dependence Disease Active 03-13 00:00: 00 [facility] Abnormal CT of the abdomen Abnormal CT of the abdomen Disease Active 03-04 00:00: 00 [facility] Vomiting, intractabi lity of vomiting not specified, presence of nausea not specified, unspecifie d vomiting type Vomiting, intractabi lity of vomiting not specified, presence of nausea not specified, unspecifie d vomiting type Disease Active -20 00:00: 00 [facility] Allergies, Adverse Reactions, Alerts Allergy Name Allergy Type Status Severity Reaction(s) Onset Date Inactive Date Treating Clinician Comments Source CLINDAMY RED DRUG INGREDI Active Anaphylaxis 01-19 00:00: 00 [facility] Clindamy red Propensi ty to adverse reaction s Active Anaphylaxis 01-19 00:00: 00 [facility] Ceftriax one Sodium Propensi ty to adverse reaction s Active Anaphylaxis 03-04 00:00: 00 [facility] CEFTRIAX ONE SODIUM DRUG INGREDI Active Anaphylaxis 03-04 00:00: 00 [facility] NO KNOWN ALLERGIE S Drug Class Active [facility] Social History Social Habit Start Date Stop Date Quantity Comments Source History of tobacco use Cigarette Smoker [facility] Exposure to SARS-CoV-2 (event) Not sure [facility] Alcoholic beverage intake 2024-05-05 00:00:00 2024-05-05 00:00:00 Ex-drinker (finding) [facility] Cigarettes smoked current (pack per day) - Reported 2024-01-20 00:00:00 2024-01-20 00:00:00 [facility] Cigarette pack-years 2024-01-20 00:00:00 2024-01-20 00:00:00 [facility] Tobacco use and exposure 2024-01-20 00:00:00 2024-01-20 00:00:00 Smokeless tobacco non-user [facility] Alcohol intake 2024-01-20 00:00:00 2024-01-20 00:00:00 Ex-drinker (finding) [facility] History SDOH Financial 2020-09-29 00:00:00 2020-09-29 00:00:00 3 [facility] History SDOH Food Worry 2020-09-29 00:00:00 2020-09-29 00:00:00 2 [facility] History SDOH Food Scarcity 2020-09-29 00:00:00 2020-09-29 00:00:00 2 [facility] History SDOH Transport Med 2020-09-29 00:00:00 2020-09-29 00:00:00 1 [facility] History SDOH Transport Non-Med 2020-09-29 00:00:00 2020-09-29 00:00:00 2 [facility] Education 2020-09-28 00:00:00 2020-09-28 00:00:00 17 [facility] Alcohol Comment 2020-03-05 00:00:00 2020-03-05 00:00:00 quit Nov 2019 [facility] History of Social function 2020-03-05 00:00:00 2020-03-05 00:00:00 [facility] Sex assigned at 1975 00:00:00 1975 00:00:00 [facility] Smoking Status Start Date Stop Date Source Unknown if ever smoked [facility] Ex-smoker 2024-01-20 00:00:00 2024-01-20 00:00:00 [facility] Smokes tobacco daily 2023-11-04 00:00:00 [facility] Medications Ordered Medication Name Filled Medication Name Start Date Stop Date Current Medication? Ordering Clinician Indication Dosage Frequency Signature (SIG) Comments Components Source iopamidol (ISOVUE 370-500 mL) injection 85 mL 05-05 20:30: 00 05-05 20:45 :00 No [id number] 85mL 85 mL, Intravenou s, ONCE, 1 dose, On Mon05/05/24 at 1545, Routine [facility] NaCl 0.9% (NS) bolus infusion 1,000 mL 05-05 20:15: 00 05-05 21:54 :00 No 1000mL at 999 mL/hr, 1,000 mL, IV Infusion, ONCE, 1 dose, On Mon05/05/24 at 1515, PINEDA [facility] famotidine (PEPCID (PF)) injection 20 mg 05-05 19:30: 00 05-05 20:04 :00 No 20mg 20 mg, Slow IV Push, ONCE, 1 dose, On Mon05/05/24 at 1430, [facility] proMETHazin e (PHENERGAN) 12.5 mg in NS 50 mL IV piggyback (CNR) 05-05 19:30: 00 05-05 20:21 :00 No 12.5mg 12.5 mg, IV Piggyback, at 200 mL/hr Administer over 15 Minutes, ONCE, 1 dose, On Mon05/05/24 at 1430, PINEDA [facility] morpHINE (4 mg/mL) injection 4 mg 05-05 19:30: 00 05-05 20:04 :00 No 4mg 4 mg, Slow IV Push, ONCE, 1 dose, On Mon05/05/24 at 1430, STAT [facility] proMETHazin e 25 mg tablet 05-05 00:00: 00 Yes [id number] 25mg Take 1 tablet by mouth every 6 (six) hours as needed for Nausea and Vomiting (N/V). [facility] dicyclomine 20 mg tablet 05-05 00:00: 00 Yes [id number] 20mg Take 1 tablet by mouth every 6 (six) hours as needed for Abdominal pain. [facility] traMADoL 50 mg tablet 05-05 00:00: 00 Yes [id number] 50mg Take 1 tablet by mouth every 6 (six) hours as needed (pain). Indication s: acute pain [facility] amoxicillin -clavulanat e (AUGMENTIN) 875-125 mg per tablet 1 tablet 01-23 01:00: 00 01-30 00:59 :00 No 1{tbl} 1 tablet, Oral, Q12H, 14 doses, First dose on Mon01/23/24 at 1999, Last dose on Mon01/30/24 at 0800, Routine
Reason for Anti-Infec tive: Documented Infection< br>Documen carrie Infection Site: Abdominal< br>Duratio n of Therapy: 7 days [facility] metoprolol tartrate 50 mg tablet 01-22 18:27: 31 Yes 100mg Take 2 tablets by mouth in the morning. Take 2 tablets by mouth once daily [facility] Omeprazole 20 mg tablet 01-22 18:27: 31 Yes 20mg Take 1 tablet by mouth in the morning. [facility] traZODone 50 mg tablet 01-22 18:27: 31 Yes 50mg Take 1 tablet by mouth at bedtime as needed for Insomnia. [facility] aspirin 81 mg chewable tablet 01-22 18:27: 31 Yes 81mg Take 1 tablet by mouth in the morning. [facility] ketorolac 10 mg tablet 01-22 18:27: 31 Yes 10mg Take 1 tablet by mouth every 8 (eight) hours. [facility] busPIRone 10 mg tablet 01-22 18:27: 31 Yes 20mg Take 2 tablets by mouth in the morning and 2 tablets in the evening. Take 2 tablets by mouth twice a day [facility] amoxicillin 500 mg capsule 01-22 18:27: 29 01-22 00:00 :00 No 500mg Take 1 capsule by mouth every 8 (eight) hours. For one week [facility] metoprolol succinate XL 50 mg 24 hr tablet 01-22 18:27: 29 01-19 00:00 :00 No 50mg Take 1 tablet by mouth in the morning. Take 2 tablets by mouth once daily [facility] metoprolol succinate XL 25 mg 24 hr tablet 01-22 15:49: 49 01-22 00:00 :00 No 25mg Take 1 tablet by mouth in the morning. [facility] amLODIPine 10 mg tablet 01-22 15:48: 47 01-22 00:00 :00 No 10mg Take 10 mg by mouth daily. [facility] polyethylen e glycol 3350 powder 17 g 01-22 01:00: 00 Yes 17g 17 g, Oral, BID, First dose on Mon01/22/24 at 1999, Until Discontinu ed, Routine [facility] amoxicillin 500 mg capsule 01-22 00:00: 00 Yes [id number] 500mg Take 1 capsule by mouth every 8 (eight) hours. For one week [facility] benzonatate 100 mg capsule 01-22 00:00: 00 Yes [id number] 100mg Take 1 capsule by mouth every 8 (eight) hours as needed for Cough. [facility] ondansetron 4 mg tablet 01-22 00:00: 00 Yes [id number] 4mg Take 1 tablet by mouth every 8 (eight) hours as needed for Nausea and Vomiting (N/V). [facility] acetaminoph en-codeine 300-30 mg tablet 01-22 00:00: 00 01-30 04:59 :00 No [id number] 1{tbl} Take 1 tablet by mouth every 6 (six) hours as needed for Pain (scale 4-6) for up to 7 days. Indication s: acute pain [facility] morpHINE (2 mg/mL) injection 2 mg 01-21 00:38: 30 Yes 2mg 2 mg, Slow IV Push, Q4HPRN, Starting on Mon01/21/24 at 1938, Until Discontinu ed, Routine, Pain (scale 7-10) [facility] morpHINE (2 mg/mL) injection 2 mg 01-20 15:33: 37 01-21 00:21 :08 No 2mg 2 mg, Slow IV Push, Q4HPRN, Starting on Mon01/21/24 at 1033, Until Mon01/21/24 at 1921, Routine, Pain (scale 7-10) [facility] benzonatate (TESSALON PERLES) capsule 100 mg 01-20 15:33: 21 Yes 100mg 100 mg, Oral, Q8HPRN, Starting on Mon01/21/24 at 1033, Until Discontinu ed, Routine, Cough [facility] codeine-gua ifenesin (ROBITUSSIN AC) 10-100 mg/5 mL oral solution 10 mL 01-20 14:00: 57 Yes 10mL 10 mL, Oral, Q6HPRN, Starting on Mon01/21/24 at 0900, Until Discontinu ed, Routine, Cough [facility] FLUoxetine (PROZAC) capsule 40 mg 01-20 14:00: 00 Yes 40mg 40 mg, Oral, DAILY, First dose on 01/21/24 at 0900, Until Discontinu ed, Routine [facility] metoprolol succinate XL (TOPROL XL) tablet 25 mg 01-20 14:00: 00 Yes 25mg 25 mg, Oral, DAILY, First dose on 01/21/24 at 0900, Until Discontinu ed, Routine [facility] amLODIPine (NORVASC) tablet 10 mg 01-20 14:00: 00 Yes 10mg 10 mg, Oral, DAILY, First dose on 01/21/24 at 0900, Until Discontinu ed, Routine [facility] enoxaparin (LOVENOX) injection 40 mg 01-20 14:00: 00 Yes 40mg 40 mg, Subcutaneo us, DAILY, First dose on 01/21/24 at 0900, Until Discontinu ed, Routine [facility] busPIRone (BUSPAR) tablet 10 mg 01-20 13:00: 00 Yes 10mg 10 mg, Oral, BID, First dose on 01/21/24 at 0800, Until Discontinu ed, Routine [facility] pantoprazol e (PROTONIX) EC tablet 40 mg 01-20 11:00: 00 Yes 40mg 40 mg, Oral, QAM-0600, First dose on 01/21/24 at 0600, Until Discontinu ed, Routine [facility] piperacilli n-tazobacta m (ZOSYN) 3.375 g in NaCl 0.9% (NS) 100 mL MINI-BAG 01-20 08:00: 00 01-22 18:00 :00 No 3.375g 3.375 g, IV Piggyback, Q8H ABX, 21 doses, First dose on Mon01/21/24 at 0300, Last dose on 01/27/24 at 1900, Administer over 4 Hours, 100 mL
Reas on for Anti-Infec tive: Documented Infection& lt;br>Docu mented Infection Site: Abdominal< br>Duratio n of Therapy: 7 days [facility] NaCl 0.9% (NS) IV infusion 1,000 mL 01-20 07:15: 00 Yes 1000mL at 100 mL/hr, IV Infusion, CONTINUOUS , Starting on 01/21/24 at 0115, Until Discontinu ed, Routine [facility] diazePAM (VALIUM) tablet 5 mg 01-20 02:14: 45 Yes 5mg 5 mg, Oral, TIDPRN, Starting on 01/20/24 at 2013, Until Discontinu ed, Routine, Agitation, Anxiety [facility] morpHINE (2 mg/mL) injection 5 mg 01-20 02:14: 15 01-20 15:34 :06 No 5mg 5 mg, Slow IV Push, Q4HPRN, Starting on 01/20/24 at 2013, Until [place] 01/21/24 at 1034, Routine, Pain (scale 7-10) [facility] HYDROcodone -acetaminop hen (NORCO) 10-325 mg tablet 1 tablet 01-20 02:14: 07 Yes 1{tbl} 1 tablet, Oral, Q4HPRN, Starting on 01/20/24 at 2013, Until Discontinu ed, Routine, Pain (scale 4-6) [facility] ondansetron (ZOFRAN) tablet 4 mg 01-20 02:12: 47 Yes 4mg 4 mg, Oral, Q6HPRN, Starting on 01/20/24 at 2011, Until Discontinu ed, Routine, Nausea and Vomiting (N/V) [facility] ondansetron (ZOFRAN (PF)) injection 4 mg 01-20 00:22: 09 Yes 4mg 4 mg, Slow IV Push, Q6HPRN, Starting on 01/20/24 at 1822, Until Discontinu ed, Routine, Nausea and Vomiting (N/V) [facility] morpHINE (2 mg/mL) injection 4 mg 01-20 00:22: 08 01-20 02:14 :29 No 4mg 4 mg, Slow IV Push, Q4HPRN, Starting on 3/9/24 at 1822, Until 01/20/24 at 2014, Routine, Pain (scale 7-10) [facility] acetaminoph en (TYLENOL) tablet 650 mg 01-20 00:22: 01 Yes 650mg 650 mg, Oral, Q6HPRN, Starting on 01/20/24 at 1822, Until Discontinu ed, Routine, Pain (scale 1-3), Temp > 38 C [facility] NaCl 0.9% (NS) bolus infusion 1,000 mL 01-20 00:15: 00 01-19 23:23 :00 No 1000mL at 999 mL/hr, 1,000 mL, IV Infusion, ONCE, 1 dose, On 01/20/24 at 1815, [facility] piperacilli n-tazobacta m (ZOSYN) 3.375 g in NaCl 0.9% (NS) 100 mL MINI-BAG 01-20 00:00: 00 01-20 00:49 :00 No 3.375g 3.375 g, IV Piggyback, ONCE, 1 dose, On 01/20/24 at 1800, Administer over 30 Minutes, 100 mL
Reas on for Anti-Infec tive: Documented Infection< br>Documen carrie Infection Site: Abdominal< br>Duratio n of Therapy: Other (see Comments) [facility] dicyclomine (BENTYL) tablet 20 mg 01-19 23:30: 00 01-19 23:23 :00 No 20mg 20 mg, Oral, ONCE, 1 dose, [facility] 1730[facility] 370-500 mL) injection 85 mL 01-19 22:30: 00 01-19 22:45 :00 No [id number] 85mL 85 mL, Intravenou s, ONCE, 1 dose, On 01/20/24 at 1645, Routine [facility] dicyclomine 20 mg tablet 01-19 00:00: 00 01-19 00:00 :00 No 20mg Take 1 tablet by mouth every 6 (six) hours as needed for Abdominal pain. [facility] ondansetron 4 mg disintegrat ing tablet 01-19 00:00: 00 01-19 00:00 :00 No 4mg Take 1 tablet by mouth every 8 (eight) hours as needed for Nausea and Vomiting (N/V). [facility] chlordiazeP OXIDE (LIBRIUM) capsule 10 mg 2022-11 02:00: 00 Yes 10mg 10 mg, Oral, BID, First dose (after last modificati on) on 11/05/23 at 2000, Until Discontinu ed, Routine [facility] diazePAM (VALIUM) tablet 5 mg 2022-11 16:47: 25 Yes 5mg 5 mg, Oral, BIDPRN, Starting on Mon11/05/23 at 1047, Until Discontinu ed, Routine, Agitation, Anxiety [facility] HYDROcodone -acetaminop hen (NORCO) 10-325 mg tablet 1 tablet 2022-11 16:46: 43 Yes 1{tbl} 1 tablet, Oral, Q6HPRN, Starting on 11/05/23 at 1046, Until Discontinu ed, Routine, Pain (scale 7-10) [facility] amLODIPine (NORVASC) tablet 5 mg 2022-11 15:15: 00 Yes 5mg 5 mg, Oral, DAILY, First dose on Mon11/05/23 at 0915, Until Discontinu ed, Routine [facility] magnesium sulfate in water 2 gram/50 mL (4 %) infusion 2 g 2022-11 14:30: 00 11-05 15:49 :00 No 2g 2 g, IV Piggyback, Administer over 60 Minutes, ONCE, 1 dose, On Mon11/05/23 at 0830, Routine [facility] amLODIPine 10 mg tablet 2022-11 13:23: 18 Yes 10mg Take 10 mg by mouth daily. [facility] metoprolol succinate XL 25 mg 24 hr tablet 2022-11 13:23: 18 Yes 25mg Take 25 mg by mouth daily. [facility] busPIRone 5 mg tablet 2022-11 12:37: 19 11-05 00:00 :00 No 5mg Take 5 mg by mouth 2 (two) times daily. [facility] FLUoxetine 40 mg capsule 2022-11 12:37: 19 11-05 00:00 :00 No 40mg Take 40 mg by mouth daily. [facility] lipase-prot ease-amylas e (CREON) 36,000-114, 000- 180,000 unit CpDR 2022-11 12:37: 19 11-05 00:00 :00 No 2{capsu le} Take 2 capsules by mouth before meals. Take 2 capsules by mouth with meals and 1 with each snack. [facility] cloNIDine (CATAPRES) tablet 0.2 mg 2022-11 04:15: 00 11-05 03:53 :00 No .2mg 0.2 mg, Oral, ONCE, 1 dose, On 11/04/23 at 2215, Routine [facility] hydralAZINE (APRESOLINE ) injection 10 mg 2022-11 03:19: 55 Yes 10mg 10 mg, Slow IV Push, Q4HPRN, Starting on 11/04/23 at 2119, Until Discontinu ed, Routine, DBP=>100; SBP=>180 [facility] busPIRone (BUSPAR) tablet 10 mg 2022-11 02:00: 00 Yes 10mg 10 mg, Oral, BID, First dose (after last modificati on) on 11/04/23 at 2000, Until Discontinu ed, Routine [facility] FLUoxetine (PROZAC) capsule 40 mg 2022-11 02:00: 00 Yes 40mg 40 mg, Oral, BID, First dose (after last modificati on) on 11/04/23 at 2000, Until Discontinu ed, Routine [facility] potassium chloride in water 10 mEq/100 mL RTU 10 mEq 2022-11 02:00: 00 11-05 06:50 :00 No 10meq 10 mEq, IV Piggyback, Q2H, 3 doses, First dose (after last modificati on) on 11/04/23 at 2000, Last dose on 11/05/23 at 0000, Administer over 60 Minutes, 100 mL [facility] diazePAM 5 mg tablet 2022-11 00:00: 00 Yes [id number] 5mg Take 1 tablet by mouth 2 (two) times daily as needed for Agitation or Anxiety. [facility] ondansetron 4 mg tablet 2022-11 00:00: 00 Yes [id number] 4mg Take 1 tablet by mouth every 6 (six) hours as needed for Nausea and Vomiting (N/V). [facility] busPIRone 10 mg tablet 2022-11 00:00: 00 01-22 00:00 :00 No 10mg Take 1 tablet by mouth in the morning and 1 tablet in the evening. [facility] FLUoxetine 40 mg capsule 2022-11 00:00: 00 01-22 00:00 :00 No 40mg Take 1 capsule by mouth in the morning and 1 capsule in the evening. [facility] HYDROcodone -acetaminop hen 5-325 mg tablet 2022-11 00:00: 00 11-10 05:59 :00 No [id number] 1{tbl} Take 1 tablet by mouth every 4 (four) hours as needed for Pain (scale 4-6) for up to 4 days. Indication s: acute pain [facility] [facility] HYDROcodone -acetaminop hen 10-325 mg tablet 2022-11 00:00: 00 11-05 00:00 :00 No [id number] 1{tbl} Take 1 tablet by mouth every 6 (six) hours as needed for Pain (scale 7-10) for up to 4 days. Indication s: acute pain [facility] potassium chloride in water 10 mEq/100 mL RTU 10 mEq 2022-11 00:00: 00 11-04 23:38 :25 No 10meq 10 mEq, IV Piggyback, Q1H, 4 doses, First dose on 11/04/23 at 1800, Last dose on 11/04/23 at 2100, Administer over 60 Minutes, 100 mL [facility] enoxaparin (LOVENOX) injection 30 mg 2022-11 23:00: 00 Yes 30mg 30 mg, Subcutaneo us, DAILY, First dose on 11/04/23 at 1700, Until Discontinu ed, Routine [facility] Potassium Bicarb-Citr ic Acid (EFFER-K) effervescen t tablet 40 mEq 2022-11 23:00: 00 11-04 22:41 :00 No 40meq 40 mEq, Oral, ONCE, 1 dose, On 11/04/23 at 1700, Routine [facility] metoprolol succinate XL (TOPROL XL) tablet 25 mg 2022-11 22:15: 00 Yes 25mg 25 mg, Oral, DAILY, First dose on 11/04/23 at 1615, Until Discontinu ed, Routine [facility] magnesium sulfate in water 2 gram/50 mL (4 %) infusion 2 g 2022-11 17:15: 00 11-04 18:15 :00 No 2g 2 g, IV Piggyback, Administer over 60 Minutes, ONCE, 1 dose, On 11/04/23 at 1115, Routine [facility] pantoprazol e (PROTONIX) EC tablet 40 mg 2022-11 16:30: 00 Yes 40mg 40 mg, Oral, DAILY, First dose on 11/04/23 at 1030, Until Discontinu ed, Routine [facility] busPIRone (BUSPAR) tablet 5 mg 2022-11 16:30: 00 11-04 22:14 :20 No 5mg 5 mg, Oral, BID, First dose on 11/04/23 at 1030, Until Discontinu ed, Routine [facility] FLUoxetine (PROZAC) capsule 40 mg 2022-11 16:30: 00 11-04 22:14 :20 No 40mg 40 mg, Oral, DAILY, First dose on 11/04/23 at 1030, Until Discontinu ed, Routine [facility] morpHINE (4 mg/mL) injection 4 mg 2022-11 16:27: 47 11-05 16:47 :48 No 4mg 4 mg, Slow IV Push, Q4HPRN, Starting on 11/04/23 at 1027, Until 11/05/23 at 1047, Routine, Pain (scale 7-10) [facility] docusate (COLACE) capsule 100 mg 2022-11 15:00: 00 Yes 100mg 100 mg, Oral, DAILY, First dose on 11/04/23 at 0900, Until Discontinu ed, Routine [facility] potassium chloride in water 10 mEq/100 mL RTU 10 mEq 2022-11 14:15: 00 11-04 14:46 :00 No 10meq 10 mEq, IV Piggyback, ONCE, 1 dose, On 11/04/23 at 0815, Administer over 60 Minutes, 100 mL [facility] HYDROcodone -acetaminop hen (NORCO 5) 5-325 mg tablet 1 tablet 2022-11 11:00: 00 11-06 05:59 :00 No 1{tbl} 1 tablet, Oral, Q4HPRN, Starting on 11/04/23 at 0500, Until 11/05/23 at 2359, Routine, Pain (scale 4-6) [facility] FENTanyl PF (SUBLIMAZE (PF)) injection 25 mcg 2022-11 11:00: 00 11-04 16:28 :22 No 25ug 25 mcg, Slow IV Push, Q4HPRN, Starting on 11/04/23 at 0500, Until 11/04/23 at 1028, Routine, Pain (scale 7-10) [facility] FENTanyl PF (SUBLIMAZE (PF)) injection 50 mcg 2022-11 07:15: 00 11-04 06:17 :00 No 50ug 50 mcg, Slow IV Push, ONCE, 1 dose, On 11/04/23 at 0115, STAT [facility] potassium chloride in water 10 mEq/100 mL RTU 10 mEq 2022-11 07:00: 00 11-04 11:48 :00 No 10meq 10 mEq, IV Piggyback, Q1H, 4 doses, First dose on 11/04/23 at 0100, Last dose on 11/04/23 at 0400, Administer over 60 Minutes, 100 mL [facility] NaCl 0.9% (NS) IV infusion 1,000 mL 2022-11 06:30: 00 Yes 1000mL at 150 mL/hr, IV Infusion, CONTINUOUS , Starting on 11/04/23 at 0030, Until Discontinu ed, Routine [facility] chlordiazeP OXIDE (LIBRIUM) capsule 10 mg 2022-11 06:30: 00 11-05 14:58 :48 No 10mg 10 mg, Oral, TID, First dose on 11/04/23 at 0030, Until Discontinu ed, Routine [facility] diazePAM (VALIUM) injection 2 mg 2022-11 06:26: 36 11-05 16:47 :48 No 2mg 2 mg, Slow IV Push, TIDPRN, Starting on 11/04/23 at 0026, Until 11/05/23 at 1047, Routine, Agitation [facility] ondansetron (ZOFRAN (PF)) injection 4 mg 2022-11 06:25: 39 Yes 4mg 4 mg, Slow IV Push, Q6HPRN, Starting on 11/04/23 at 0025, Until Discontinu ed, Routine, Nausea and Vomiting (N/V) [facility] FENTanyl PF (SUBLIMAZE (PF)) injection 25 mcg 2022-11 06:25: 31 11-04 10:59 :53 No 25ug 25 mcg, Slow IV Push, Q6HPRN, Starting on 11/04/23 at 0025, Until 11/04/23 at 0459, Routine, Pain (scale 7-10) [facility] HYDROcodone -acetaminop hen (NORCO 5) 5-325 mg tablet 1 tablet 2022-11 06:25: 23 11-04 10:59 :53 No 1{tbl} 1 tablet, Oral, Q6HPRN, Starting on 11/04/23 at 0025, Until 11/04/23 at 0459, Routine, Pain (scale 4-6) [facility] acetaminoph en (TYLENOL) tablet 650 mg 2022-11 06:25: 21 Yes 650mg 650 mg, Oral, Q6HPRN, Starting on 11/04/23 at 0025, Until Discontinu ed, Routine, Pain (scale 1-3) [facility] cloNIDine (CATAPRES) tablet 0.1 mg 2022-11 06:15: 00 11-04 06:38 :00 No .1mg 0.1 mg, Oral, ONCE, 1 dose, On 11/04/23 at 0015, STAT [facility] famotidine (PEPCID (PF)) injection 20 mg 2022-11 06:00: 00 11-04 05:00 :00 No 20mg 20 mg, Slow IV Push, ONCE, 1 dose, On 11/04/23 at 0000, [facility] ondansetron (ZOFRAN (PF)) injection 4 mg 2022-11 05:00: 00 11-04 05:00 :00 No 4mg 4 mg, Slow IV Push, ONCE, 1 dose, On Mon11/03/23 at 2300, [facility] furosemide (LASIX) injection 40 mg 2022-11 15:15: 00 09-15 15:26 :00 No 40mg 40 mg, IV Push, ONCE, 1 dose, On Mon09/15/23 at 1015, [facility] albuterol (PROVENTIL) 2.5 mg /3 mL (0.083 %) nebulizer solution 5 mg 2022-11 15:15: 00 09-15 14:30 :00 No 5mg 5 mg, Inhalation , ONCE, 1 dose, On Mon09/15/23 at 1015, [facility] albuterol 90 mcg/actuati on inhaler 2022-11 00:00: 00 Yes [id number] 2{puff} Inhale 2 Puffs every 4 (four) hours as needed for Wheezing or Shortness of Breath. [facility] levoFLOXaci n 750 mg tablet 2022-11 00:00: 00 11-03 00:00 :00 No [id number] 750mg Take 1 tablet by mouth every 24 (twenty-fo ur) hours. [facility] pantoprazol e (PROTONIX) 40 mg EC tablet 07-08 22:05: 06 07-08 00:00 :00 No 40mg Take 40 mg by mouth daily. [facility] PANTOPRAZOL E 40 mg EC tablet 07-08 00:00: 00 Yes [id number] TAKE ONE TABLET BY MOUTH DAILY [facility] levoFLOXaci n (LEVAQUIN) tablet 750 mg 04-30 08:45: 00 04-30 07:44 :00 No 750mg 750 mg, Oral, ONCE NOW, 1 dose, Mon04/30/21 at 0345, [facility]
Re ason for Anti-Infec tive: Empiric Therapy for Suspected Infection< br>Empiric Therapy Site: Respirator y
Durat ion of therapy: 72 hours [facility] iopamidol (ISOVUE 370-500 mL) injection 120 mL 04-30 08:00: 00 04-30 06:48 :00 No [id number] 120mL 120 mL, Intravenou s, ONCE, 1 dose, Mon04/30/21 at 0300, Routine [facility] ketorolac (TORADOL) injection 30 mg 04-30 07:30: 00 04-30 06:37 :00 No 30mg 30 mg, Slow IV Push, ONCE, 1 dose, Mon04/30/21 at 0230, Routine
[place] tribunal member approving Restricted medication : RUTH WATTS [facility] levoFLOXaci n (LEVAQUIN) 750 mg tablet 04-30 00:00: 00 09-15 00:00 :00 No [id number] 750mg Take 1 tablet by mouth every 24 (twenty-fo ur) hours. [facility] traMADoL (ULTRAM) 50 mg tablet 04-30 00:00: 00 09-15 00:00 :00 No [id number] 50mg Take 1 tablet by mouth every 6 (six) hours as needed for Pain (scale 7-10). Indication s: acute pain [facility] amLODIPine 10 mg tablet 04-20 20:57: 17 Yes 10mg Take 10 mg by mouth daily. [facility] busPIRone 5 mg tablet 04-20 20:57: 17 Yes 5mg Take 5 mg by mouth 2 (two) times daily. [facility] FLUoxetine 40 mg capsule 04-20 20:57: 17 Yes 40mg Take 40 mg by mouth daily. [facility] lipase-prot ease-amylas e (CREON) 36,000-114, 000- 180,000 unit CpDR 04-20 20:57: 17 Yes 2{capsu le} Take 2 capsules by mouth before meals. Take 2 capsules by mouth with meals and 1 with each snack. [facility] metoprolol succinate XL 25 mg 24 hr tablet 04-20 20:57: 17 Yes 25mg Take 25 mg by mouth daily. [facility] pantoprazol e (PROTONIX) 40 mg EC tablet 04-20 20:57: 17 Yes 40mg Take 40 mg by mouth daily. [facility] amLODIPine 10 mg tablet 04-20 15:57: 17 Yes 10mg Take 10 mg by mouth daily. [facility] busPIRone 5 mg tablet 04-20 15:57: 17 Yes 5mg Take 5 mg by mouth 2 (two) times daily. [facility] FLUoxetine 40 mg capsule 04-20 15:57: 17 Yes 40mg Take 40 mg by mouth daily. [facility] lipase-prot ease-amylas e (CREON) 36,000-114, 000- 180,000 unit CpDR 04-20 15:57: 17 Yes 2{capsu le} Take 2 capsules by mouth before meals. Take 2 capsules by mouth with meals and 1 with each snack. [facility] metoprolol succinate XL 25 mg 24 hr tablet 04-20 15:57: 17 Yes 25mg Take 25 mg by mouth daily. [facility] acetaminoph en-codeine 300-30 mg tablet 04-20 00:00: 00 09-15 00:00 :00 No [id number] 1{tbl} Take 1-2 tablets by mouth every 6 (six) hours as needed for Pain (scale 4-6). Indication s: acute pain [facility] nicotine 14 mg/24 hr patch 04-20 00:00: 00 05-21 04:59 :00 No [id number] 1{patch } Apply 1 Patch to area(s) every 24 (twenty-fo ur) hours for 30 days. [facility] levoFLOXaci n 750 mg tablet 04-20 00:00: 00 04-25 04:59 :00 No [id number] 750mg Take 1 tablet by mouth every 24 (twenty-fo ur) hours for 4 days. [facility] metroNIDAZO LE 250 mg tablet 04-20 00:00: 00 04-25 04:59 :00 No [id number] 500mg Take 2 tablets by mouth every 8 (eight) hours for 4 days. [facility] levoFLOXaci n in D5W (LEVAQUIN) 750 mg/150 mL Piggyback 750 mg 04-19 19:00: 00 Yes 750mg 750 mg, IV Piggyback, Q24H ABX, First dose (after last reorder) on Mon04/19/21 at 1400, Until Discontinu ed, 150 mL
Reas on for Anti-Infec tive: Empiric Therapy for Suspected Infection< br>Empiric Therapy Site: Abdominal< br>Duratio n of therapy: 7 days [facility] FLUoxetine (PROZAC) capsule 40 mg 04-19 14:00: 00 Yes 40mg 40 mg, Oral, DAILY, First dose on Mon04/19/21 at 0900, Until Discontinu ed, Routine [facility] pantoprazol e (PROTONIX) EC tablet 40 mg 04-19 14:00: 00 Yes 40mg 40 mg, Oral, DAILY, First dose on Mon04/19/21 at 0900, Until Discontinu ed, Routine [facility] metoprolol succinate XL (TOPROL XL) tablet 25 mg 04-19 14:00: 00 Yes 25mg 25 mg, Oral, DAILY, First dose on Mon04/19/21 at 0900, Until Discontinu ed, Routine [facility] amLODIPine (NORVASC) tablet 10 mg 04-19 14:00: 00 Yes 10mg 10 mg, Oral, DAILY, First dose on Mon04/19/21 at 0900, Until Discontinu ed, Routine [facility] metroNIDAZO LE in NaCl (iso-os) (FLAGYL I.V.) RTU IV infusion 500 mg 04-19 05:00: 00 Yes 500mg 500 mg, IV Piggyback, Q8H ABX, First dose (after last reorder) on Mon04/19/21 at 0000, Until Discontinu ed, 100 mL
Reas on for Anti-Infec tive: Empiric Therapy for Suspected Infection< br>Empiric Therapy Site: Abdominal< br>Duratio n of therapy: 7 days [facility] potassium phosphate 15 mmol in NaCl 0.9% (NS) 150 mL piggyback 04-19 02:15: 00 04-19 13:42 :00 No 15mmol 15 mmol, IV Piggyback, ONCE, 1 dose, Mon04/18/21 at 2115, 150 mL [facility] busPIRone (BUSPAR) tablet 5 mg 04-19 01:00: 00 Yes 5mg 5 mg, Oral, BID, First dose on Mon04/18/21 at 2000, Until Discontinu ed, Routine [facility] lipase-prot ease-amylas e (CREON) 12,000-38,0 00 -60,000 unit capsule 2 capsule 04-18 23:00: 00 Yes 2{capsu le} 2 capsule, Oral, TID MEALS, First dose on Mon04/18/21 at 1800, Until Discontinu ed [facility] HYDROcodone -acetaminop hen (NORCO 5) 5-325 mg tablet 1 tablet 04-18 22:37: 56 Yes 1{tbl} 1 tablet, Oral, Q6HPRN, Starting Mon04/18/21 at 1737, Until Discontinu ed, Routine, Pain (scale 4-6) [facility] D5W 0.45% NaCl (1/2NS) 1 L + KCL 20 mEq 04-18 21:00: 00 04-19 13:26 :19 No IV Infusion, at 100 mL/hr, CONTINUOUS , Starting Mon04/18/21 at 1600, Until Mon04/19/21 at 0826, Routine [facility] acetaminoph en (TYLENOL) tablet 650 mg 04-18 19:56: 43 Yes 650mg 650 mg, Oral, Q6HPRN, Starting Mon04/18/21 at 1456, Until Discontinu ed, Routine, Pain (scale 1-3) [facility] morpHINE injection 4 mg 04-18 19:56: 01 Yes 4mg 4 mg, Slow IV Push, Q6HPRN, Starting [place] 04/18/21 at 1456, Until Discontinu ed, STAT, Pain (scale 7-10) [facility] proMETHazin e (PHENERGAN) 12.5 mg in NaCl 0.9% (NS) 50 mL IV piggyback 04-18 19:55: 51 Yes 12.5mg 12.5 mg, IV Piggyback, Q4HPRN, Starting [place] 04/18/21 at 1455, Until Discontinu ed, Routine, Nausea and Vomiting (N/V) [facility] morpHINE injection 4 mg 04-18 18:30: 00 04-18 17:40 :00 No 4mg 4 mg, Slow IV Push, ONCE, 1 dose, [place] 04/18/21 at 1330, STAT [facility] KCL (KLOR-CON M20) tablet 40 mEq 04-18 18:15: 00 04-18 17:29 :00 No 40meq 40 mEq, Oral, ONCE, 1 dose, 04/18/21 at 1315, Routine [facility] metroNIDAZO LE in NaCl (iso-os) (FLAGYL I.V.) RTU IV infusion 500 mg 04-18 18:15: 00 04-18 18:56 :00 No 500mg 500 mg, IV Piggyback, ONCE, 1 dose, 04/18/21 at 1315, 100 mL
Reas on for Anti-Infec tive: Empiric Therapy for Suspected Infection< br>Empiric Therapy Site: Abdominal< br>Duratio n of therapy: 7 days [facility] iopamidol (ISOVUE 370-500 mL) injection 100 mL 04-18 18:15: 00 04-18 17:00 :00 No [id number] 100mL 100 mL, Intravenou s, ONCE, 1 dose, 04/18/21 at 1315, Routine [facility] NaCl 0.9% (NS) bolus infusion 1,000 mL 04-18 17:15: 00 04-18 18:40 :00 No 1000mL at 999 mL/hr, 1,000 mL, IV Infusion, ONCE, 1 dose, 04/18/21 at 1215, STAT [facility] levoFLOXaci n in D5W (LEVAQUIN) 750 mg/150 mL Piggyback 750 mg 04-18 17:15: 00 04-18 20:11 :00 No 750mg 750 mg, IV Piggyback, ONCE, 1 dose, 04/18/21 at 1215, 150 mL
Reas on for Anti-Infec tive: Empiric Therapy for Suspected Infection< br>Empiric Therapy Site: Abdominal< br>Duratio n of therapy: 7 days [facility] diphenhydrA MINE (BENADRYL) injection 25 mg 04-18 17:15: 00 04-18 18:47 :00 No 25mg 25 mg, Slow IV Push, ONCE, 1 dose, 04/18/21 at 1215, STAT [facility] haloperidol lactate (HALDOL) injection 2.5 mg 04-18 17:15: 00 04-18 16:14 :00 No 2.5mg 2.5 mg, Intravenou s, ONCE, 1 dose, 04/18/21 at 1215, STAT [facility] morpHINE injection 4 mg 04-18 16:45: 00 04-18 15:57 :00 No 4mg 4 mg, Slow IV Push, ONCE, 1 dose, 04/18/21 at 1145, STAT [facility] metoclopram curtis HCl (REGLAN) injection 10 mg 04-18 16:30: 00 04-18 15:24 :00 No 10mg 10 mg, Slow IV Push, ONCE, 1 dose, 04/18/21 at 1130, [facility] NaCl 0.9% (NS) bolus infusion 1,000 mL 04-18 16:00: 00 04-18 16:48 :00 No 1000mL at 999 mL/hr, 1,000 mL, IV Infusion, ONCE, 1 dose, 04/18/21 at 1100, [facility] lipase-prot ease-amylas e (CREON) 36,000-114, 000- 180,000 unit CpDR 03-10 14:32: 33 03-10 00:00 :00 No Take 2 TAB-CAP/M2 by mouth before meals. Take 2 capsules by mouth with meals and 1 with each snack. [facility] amLODIPine 10 mg tablet 03-10 00:00: 00 04-10 04:59 :00 No [id number] 10mg Take 1 tablet by mouth daily for 30 days. [facility] busPIRone 5 mg tablet 03-10 00:00: 00 04-10 04:59 :00 No [id number] 5mg Take 1 tablet by mouth 2 (two) times daily for 30 days. [facility] FLUoxetine 40 mg capsule 03-10 00:00: 00 04-10 04:59 :00 No [id number] 40mg Take 1 capsule by mouth daily for 30 days. [facility] lipase-prot ease-amylas e (CREON) 36,000-114, 000- 180,000 unit CpDR 03-10 00:00: 00 04-10 04:59 :00 No [id number] Take 2 TAB-CAP/M2 by mouth before meals for 30 days. Take 2 capsules by mouth with meals and 1 with each snack. [facility] metoprolol succinate XL 25 mg 24 hr tablet 03-10 00:00: 00 04-10 04:59 :00 No [id number] 25mg Take 1 tablet by mouth daily for 30 days. [facility] pantoprazol e 40 mg EC tablet 03-10 00:00: 00 04-10 04:59 :00 No [id number] 40mg Take 1 tablet by mouth daily for 30 days. [facility] proMETHazin e 12.5 mg suppository 03-10 00:00: 00 03-26 04:59 :00 No [id number] 12.5mg Insert 1 Suppositor y into rectum every 4 (four) hours as needed for N/V unresponsi ve to Ondansetro n for up to 15 days. [facility] acetaminoph en-codeine 300-30 mg tablet 03-10 00:00: 00 03-18 04:59 :00 No [id number] 1{tbl} Take 1 tablet by mouth every 4 (four) hours as needed for Pain (scale 7-10) for up to 7 days. Indication s: acute pain [facility] ciprofloxac in HCl 500 mg tablet 03-10 00:00: 00 03-14 04:59 :00 No [id number] 500mg Take 1 tablet by mouth every 12 (twelve) hours for 3 days. [facility] metroNIDAZO LE 500 mg tablet 2021-0 4-28 00:00: 00 03-14 04:59 :00 No [id number] 500mg Take 1 tablet by mouth every 8 (eight) hours for 3 days. [facility] acetaminoph en-codeine (TYLENOL #3) 300-30 mg tablet 1 tablet 03-09 21:10: 45 Yes 1{tbl} 1 tablet, Oral, Q4HPRN, Starting Mon03/09/21 at 1610, Until Discontinu ed, Routine, Pain (scale 7-10) [facility] FENTanyl PF (SUBLIMAZE (PF)) injection 50 mcg 03-08 22:31: 56 03-09 21:11 :00 No 50ug 50 mcg, Slow IV Push, Q3HPRN, Starting Mon03/08/21 at 1731, Until Mon03/09/21 at 1611, Routine, Pain (scale 7-10) [facility] FENTanyl PF (SUBLIMAZE (PF)) injection 100 mcg 03-08 19:08: 03 03-08 22:33 :12 No 100ug 100 mcg, Slow IV Push, Q3HPRN, Starting Mon03/08/21 at 1408, Until Mon03/08/21 at 1733, Routine, Pain (scale 7-10) [facility] diphenhydrA MINE (BENADRYL) injection 25 mg 03-08 15:10: 49 Yes 25mg 25 mg, Slow IV Push, Q6HPRN, Starting Mon03/08/21 at 1010, Until Discontinu ed, Routine, anxiety / intractabl e nausea [facility] FLUoxetine (PROZAC) capsule 40 mg 03-08 14:00: 00 Yes 40mg 40 mg, Oral, DAILY, First dose on Mon03/08/21 at 0900, Until Discontinu ed, Routine [facility] pantoprazol e (PROTONIX) EC tablet 40 mg 03-08 14:00: 00 Yes 40mg 40 mg, Oral, DAILY, First dose on Mon03/08/21 at 0900, Until Discontinu ed, Routine [facility] metoprolol succinate XL (TOPROL XL) tablet 25 mg 03-08 14:00: 00 Yes 25mg 25 mg, Oral, DAILY, First dose on Mon03/08/21 at 0900, Until Discontinu ed, Routine [facility] amLODIPine (NORVASC) tablet 10 mg 03-08 14:00: 00 Yes 10mg 10 mg, Oral, DAILY, First dose on Mon03/08/21 at 0900, Until Discontinu ed, Routine [facility] NaCl 0.9% (NS) IV infusion 1,000 mL 03-08 01:15: 00 03-10 14:23 :30 No 1000mL at 100 mL/hr, IV Infusion, CONTINUOUS , Starting Mon03/07/21 at 2015, Until Mon03/10/21 at 0923, Routine [facility] busPIRone (BUSPAR) tablet 5 mg 03-08 01:00: 00 Yes 5mg 5 mg, Oral, BID, First dose on [place] 03/07/21 at 2000, Until Discontinu ed, Routine [facility] lipase-prot ease-amylas e (PANCREAZE) 16,800-56,8 00- 98,400 unit capsule 1 capsule 03-07 22:00: 00 Yes 1{capsu le} 1 capsule, Oral, TID MEALS, First dose on [place] 03/07/21 at 1700, Until Discontinu ed [facility] enoxaparin (LOVENOX) injection 40 mg 03-07 22:00: 00 Yes 40mg 40 mg, Subcutaneo us, DAILY, First dose on Mon03/07/21 at 1700, Until Discontinu ed, Routine [facility] ketorolac (TORADOL) injection 15 mg 03-07 21:07: 38 03-09 00:46 :00 No 15mg 15 mg, Slow IV Push, Q8HPRN, 4 doses, Starting [place] 03/07/21 at 1607, Until Discontinu ed, Routine, Breakthrou gh pain
Fa culty member approving Restricted medication : MADDY COBURN [facility] FENTanyl PF (SUBLIMAZE (PF)) injection 100 mcg 03-07 20:30: 00 03-07 19:30 :00 No 100ug 100 mcg, Slow IV Push, ONCE, 1 dose, [place] 03/07/21 at 1530, STAT [facility] metroNIDAZO LE in NaCl (iso-os) (FLAGYL I.V.) RTU IV infusion 500 mg 03-07 19:30: 00 Yes 500mg 500 mg, IV Infusion, Q8H ABX, First dose on Mon03/07/21 at 1430, Until Discontinu ed, 100 mL
Reas on for Anti-Infec tive: Documented Infection< br>Documen carrie Infection Site: Abdominal< br>Duratio n of Therapy: Other (see Comments) [facility] ciprofloxac in in 5 % dextrose (CIPRO) piggyback 400 mg 03-07 19:30: 00 Yes 400mg 400 mg, IV Piggyback, Administer over 60 Minutes, Q12H ABX, First dose on Mon03/07/21 at 1430, Until Discontinu ed, [place]
Re ason for Anti-Infec tive: Documented Infection< br>Documen carrie Infection Site: Abdominal< br>Duratio n of Therapy: Other (see Comments) [facility] NaCl 0.9% (NS) bolus infusion 1,000 mL 03-07 19:30: 00 03-07 19:28 :00 No 1000mL at 999 mL/hr, 1,000 mL, IV Infusion, ONCE, 1 dose, [place] 03/07/21 at 1430, STAT [facility] proMETHazin e (PHENERGAN) 12.5 mg in NaCl 0.9% (NS) 50 mL piggyback 03-07 18:45: 00 03-07 17:40 :00 No 12.5mg 12.5 mg, IV Piggyback, ONCE, 1 dose, [place] 03/07/21 at 1345, 50 mL [facility] FENTanyl PF (SUBLIMAZE (PF)) injection 100 mcg 03-07 18:45: 00 03-07 17:39 :00 No 100ug 100 mcg, Slow IV Push, ONCE, 1 dose, 03/07/21 at 1345, STAT [facility] proMETHazin e (PROMETHEGA N) suppository 12.5 mg 03-07 18:37: 34 Yes 12.5mg 12.5 mg, Rectal, Q4HPRN, Starting 03/07/21 at 1337, Until Discontinu ed, Routine, N/V unresponsi ve to Ondansetro n [facility] ondansetron (ZOFRAN (PF)) injection 4 mg 03-07 18:37: 07 Yes 4mg 4 mg, Slow IV Push, Q6HPRN, Starting 03/07/21 at 1337, Until Discontinu ed, Routine, Nausea and Vomiting (N/V) [facility] FENTanyl PF (SUBLIMAZE (PF)) injection 50 mcg 03-07 18:34: 42 03-08 18:33 :42 No 50ug 50 mcg, Slow IV Push, Q3HPRN, Starting 03/07/21 at 1334, Until 03/08/21 at 1333, Routine, Pain (scale 7-10) [facility] traMADoL (ULTRAM) tablet 50 mg 03-07 18:34: 38 03-09 18:33 :38 No 50mg 50 mg, Oral, Q8HPRN, Starting Mon03/07/21 at 1334, Until 03/09/21 at 1333, Routine, Pain (scale 4-6) [facility] acetaminoph en (TYLENOL) tablet 650 mg 03-07 18:34: 35 Yes 650mg 650 mg, Oral, Q6HPRN, Starting 03/07/21 at 1334, Until Discontinu ed, Routine, Pain (scale 1-3) [facility] ondansetron (ZOFRAN (PF)) injection 4 mg 03-07 17:45: 00 03-07 16:39 :00 No 4mg 4 mg, Slow IV Push, ONCE, 1 dose, 03/07/21 at 1245, [facility]ED[place] [facility] iohexol (OMNIPAQUE 350 BULK-100 mL) injection 100 mL 03-07 17:30: 00 03-07 17:18 :00 No [id number] 100mL 100 mL, Intravenou s, ONCE, 1 dose, 03/07/21 at 1230, Routine [facility] morpHINE injection 4 mg 03-07 17:30: 03-07 16:34 :00 No 4mg 4 mg, Slow IV Push, ONCE, 1 dose, 03/07/21 at 1230, STAT [facility] NaCl 0.9% (NS) bolus infusion 1,000 mL 03-07 17:30: 03-07 18:27 :00 No 1000mL at 999 mL/hr, 1,000 mL, IV Infusion, ONCE, 1 dose, [place] 03/07/21 at 1230, STAT [facility] proMETHazin e 25 mg tablet 02-24 00:00: 00 Yes [id number] 25mg Take 1 tablet by mouth every 6 (six) hours as needed for Nausea and Vomiting (N/V). [facility] ondansetron (ZOFRAN) 4 mg tablet 02-24 00:00: 00 Yes [id number] 4mg Take 1 tablet by mouth every 8 (eight) hours as needed for Nausea and Vomiting (N/V). [facility] lipase-prot ease-amylas e (CREON) 36,000-114, 000- 180,000 unit CpDR 01-24 01:22: 29 Yes Take 2 TAB-CAP/M2 by mouth before meals. Take 2 capsules by mouth with meals and 1 with each snack. [facility] lidocaine (LIDODERM) 5 % (700 mg/patch) patch 1 Patch 01-23 15:30: 00 01-24 04:06 :00 No 1{patch } 1 Patch, Topical, Administer over 12 Hours, ONCE, 1 dose, 01/23/21 at 0930, Routine [facility] enoxaparin (LOVENOX) injection 40 mg 01-23 15:00: 00 Yes 40mg 40 mg, Subcutaneo us, DAILY, First dose on 01/23/21 at 0900, Until Discontinu ed, Routine [facility] pantoprazol e (PROTONIX) EC tablet 40 mg 01-23 15:00: 00 Yes 40mg 40 mg, Oral, DAILY, First dose on 01/23/21 at 0900, Until Discontinu ed, Routine [facility] metoprolol succinate XL (TOPROL XL) tablet 25 mg 01-23 15:00: 00 Yes 25mg 25 mg, Oral, DAILY, First dose on 01/23/21 at 0900, Until Discontinu ed, [facility]ine [facility] [facility] (COZAAR[facility] tablet 50 mg 01-23 15:00: 00 Yes 50mg 50 mg, Oral, DAILY, First dose on 01/23/21 at 0900, Until Discontinu ed, Routine [facility] amLODIPine (NORVASC) tablet 10 mg 01-23 15:00: 00 Yes 10mg 10 mg, Oral, DAILY, First dose on 01/23/21 at 0900, Until Discontinu ed, Routine [facility] morpHINE injection 4 mg 01-23 14:04: 09 Yes 4mg 4 mg, Slow IV Push, Q6HPRN, Starting 01/23/21 at 0804, Until Discontinu ed, Routine, Pain (scale 7-10) [facility] lipase-prot ease-amylas e (PANCREAZE) 16,800-56,8 00- 98,400 unit capsule 2 capsule 01-23 14:00: 00 Yes 2{capsu le} 2 capsule, Oral, TID MEALS, First dose on 01/23/21 at 0800, Until Discontinu ed [facility] busPIRone (BUSPAR) tablet 5 mg 01-23 14:00: 00 Yes 5mg 5 mg, Oral, BID, First dose on 01/23/21 at 0800, Until Discontinu ed, Routine [facility] morpHINE injection 2 mg 01-23 08:14: 00 01-23 08:43 :00 No 2mg 2 mg, Slow IV Push, ONCE, 1 dose, 01/23/21 at 0215, Routine [facility] ondansetron (ZOFRAN (PF)) injection 4 mg 01-23 07:40: 39 Yes 4mg 4 mg, Slow IV Push, Q6HPRN, Starting 01/23/21 at 0140, Until Discontinu ed, Routine, Nausea and Vomiting (N/V) [facility] NaCl 0.9% (NS) IV infusion 01-23 05:15: 00 Yes IV Infusion, at 100 mL/hr, CONTINUOUS , Starting Mon01/22/21 at 2315, Until Discontinu ed, Routine [facility] ondansetron (ZOFRAN (PF)) injection 4 mg 01-23 03:31: 00 01-23 04:09 :00 No 4mg 4 mg, Slow IV Push, ONCE, 1 dose, Mon01/22/21 at 2145, Routine [facility] morpHINE injection 2 mg 01-23 03:31: 00 01-23 04:09 :00 No 2mg 2 mg, Slow IV Push, ONCE, 1 dose, Mon01/22/21 at 2145, Routine [facility] acetaminoph en (TYLENOL) tablet 650 mg 01-23 03:27: 55 Yes 650mg 650 mg, Oral, Q6HPRN, Starting Mon01/22/21 at 2127, Until Discontinu ed, Routine, Pain (scale 1-3) [facility] proMETHazin e (PHENERGAN) tablet 25 mg 01-23 03:27: 54 Yes 25mg 25 mg, Oral, Q6HPRN, Starting Mon01/22/21 at 2127, Until Discontinu ed, Routine, Nausea and Vomiting (N/V) [facility] morpHINE injection 4 mg 01-22 23:45: 00 01-22 22:55 :00 No 4mg 4 mg, Slow IV Push, ONCE, 1 dose, 01/22/21 at 1745, STAT [facility] proMETHazin e (PHENERGAN) 25 mg in NaCl 0.9% (NS) 50 mL piggyback 01-22 23:45: 00 01-22 23:45 :00 No 25mg 25 mg, IV Piggyback, ONCE, 1 dose, 01/22/21 at 1745, 50 mL [facility] diphenhydrA MINE (BENADRYL) injection 25 mg 01-22 23:15: 00 01-22 22:17 :00 No 25mg 25 mg, Intravenou s, ONCE, 1 dose, 01/22/21 at 1715, [facility] metoclopram curtis HCl (REGLAN) injection 10 mg 01-22 23:15: 00 01-22 22:16 :00 No 10mg 10 mg, Slow IV Push, ONCE, 1 dose, 01/22/21 at 1715, [facility] haloperidol lactate (HALDOL) injection 5 mg 01-22 22:00: 00 01-22 20:58 :00 No 5mg 5 mg, Intravenou s, ONCE, 1 dose, 01/22/21 at 1600, STAT [facility] iohexol (OMNIPAQUE 350 BULK-150 mL) injection 120 mL 01-22 21:15: 00 01-22 21:12 :00 No [id number] 120mL 120 mL, Intravenou s, ONCE, 1 dose, 01/22/21 at 1515, Routine [facility] NaCl 0.9% (NS) bolus infusion 1,000 mL 01-22 20:30: 00 01-23 01:20 :00 No 1000mL at 999 mL/hr, 1,000 mL, IV Infusion, ONCE, 1 dose, 01/22/21 at 1430, STAT [facility] ondansetron (ZOFRAN (PF)) injection 4 mg 01-22 20:30: 00 01-22 20:02 :00 No 4mg 4 mg, Slow IV Push, ONCE, 1 dose, 01/22/21 at 1430, PINEDA [facility] morpHINE injection 4 mg 01-22 20:30: 00 01-22 20:02 :00 No 4mg 4 mg, Slow IV Push, ONCE, 1 dose, Mon01/22/21 at 1430, STAT [facility] NaCl 0.9% (NS) bolus infusion 1,000 mL 01-22 20:00: 00 01-22 22:15 :00 No 1000mL at 999 mL/hr, 1,000 mL, IV Infusion, ONCE, 1 dose, Mon01/22/21 at 1400, STAT [facility] pantoprazol e 40 mg EC tablet 01-12 00:00: 00 03-10 00:00 :00 No [id number] 40mg Take 1 tablet by mouth daily. [facility] acetaminoph en-codeine (TYLENOL-CO DEINE #3) 300-30 mg tablet 01-12 00:00: 00 01-20 05:59 :00 No [id number] 1{tbl} Take 1 tablet by mouth every 6 (six) hours as needed for Pain (scale 7-10) for up to 7 days. Indication s: acute pain [facility] proMETHazin e 25 mg tablet 12-25 00:00: 00 02-24 00:00 :00 No [id number] 25mg Take 1 tablet by mouth every 6 (six) hours as needed for Nausea and Vomiting (N/V). [facility] ondansetron (ZOFRAN) 4 mg tablet 12-25 00:00: 00 02-24 00:00 :00 No [id number] 4mg Take 1 tablet by mouth every 8 (eight) hours as needed for Nausea and Vomiting (N/V). [facility] FLUoxetine (PROZAC) 20 mg capsule - 15:28: 40 11-27 00:00 :00 No 40mg Take 40 mg by mouth daily. [facility] metoprolol succinate XL 25 mg 24 hr tablet 11-27 15:28: 40 11-27 00:00 :00 No 25mg Take 25 mg by mouth daily. [facility] busPIRone 5 mg tablet 11-27 00:00: 00 03-10 00:00 :00 No [id number] 5mg Take 1 tablet by mouth 2 (two) times daily. [facility] amLODIPine 10 mg tablet 11-27 00:00: 00 03-10 00:00 :00 No [id number] 10mg Take 1 tablet by mouth daily. [facility] losartan 50 mg tablet 11-27 00:00: 00 03-10 00:00 :00 No [id number] 50mg Take 1 tablet by mouth daily. [facility] FLUoxetine 40 mg capsule 11-27 00:00: 00 03-10 00:00 :00 No [id number] 40mg Take 1 capsule by mouth daily. [facility] metoprolol succinate XL 25 mg 24 hr tablet 11-27 00:00: 00 03-10 00:00 :00 No [id number] 25mg Take 1 tablet by mouth daily. [facility] potassium chloride 10 mEq CR tablet 11-27 00:00: 00 03-10 00:00 :00 No [id number] 10meq Take 1 tablet by mouth every Monday, Monday and Monday. [facility] amLODIPine 10 mg tablet 2019-11 00:00: 00 11-27 00:00 :00 No [id number] 10mg Take 1 tablet by mouth daily for 30 days. [facility] FLUoxetine (PROZAC) 20 mg capsule 2019-11 20:53: 14 Yes 40mg Take 40 mg by mouth daily. [facility] metoprolol succinate XL 25 mg 24 hr tablet 2019-11 20:53: 14 Yes 25mg Take 25 mg by mouth daily. [facility] lipase-prot ease-amylas e (CREON) 36,000-114, 000- 180,000 unit CpDR 2019-11 20:53: 14 Yes Take 2 TAB-CAP/M2 by mouth before meals. Take 2 capsules by mouth with meals and 1 with each snack. [facility] KCL 20 mEq/15 mL solution 40 mEq 2019-11 16:00: 00 11-02 18:41 :00 No 40meq 40 mEq, Oral, ONCE, 1 dose, Mon11/02/20 at 1000, Routine [facility] amLODIPine (NORVASC) tablet 10 mg 2019-11 15:00: 00 Yes 10mg 10 mg, Oral, DAILY, First dose (after last modificati on) on Mon11/02/20 at 0900, Until Discontinu ed, Routine [facility] busPIRone 5 mg tablet 2019-11 00:00: 00 11-27 00:00 :00 No [id number] 5mg Take 1 tablet by mouth 2 (two) times daily for 30 days. [facility] ondansetron 4 mg tablet 2019-11 00:00: 00 11-13 05:59 :00 No [id number] 4mg Take 1 tablet by mouth every 8 (eight) hours as needed for Nausea and Vomiting (N/V) for up to 10 days. [facility] vancomycin 125 mg capsule 2019-11 00:00: 00 11-09 05:59 :00 No [id number] 125mg Take 1 capsule by mouth 4 (four) times daily for 6 days. [facility] acetaminoph en-codeine 300-30 mg tablet 2019-11 00:00: 00 11-08 05:59 :00 No [id number] 1{tbl} Take 1 tablet by mouth every 8 (eight) hours as needed for Pain (scale 7-10) for up to 5 days. Indication s: acute pain [facility] morpHINE injection 2 mg 2019-11 20:28: 41 Yes 2mg 2 mg, Slow IV Push, Q4HPRN, Starting 11/01/20 at 1428, Until Discontinu ed, Routine, Pain (scale 7-10) [facility] amLODIPine (NORVASC) tablet 5 mg 2019-11 20:15: 00 11-01 20:53 :00 No 5mg 5 mg, Oral, ONCE, 1 dose, 11/01/20 at 1415, [facility] 2 mg 2019-11 15:36: 41 11-01 20:29 :17 No 2mg 2 mg, Slow IV Push, Q4HPRN, Starting 11/01/20 at 0936, Until 11/01/20 at 1429, Routine, Pain (scale 7-10) [facility] busPIRone (BUSPAR) tablet 5 mg 2019-11 02:00: 00 Yes 5mg 5 mg, Oral, BID, First dose on 10/31/20 at 2000, Until Discontinu ed, Routine [facility] ALPRAZolam (XANAX) tablet 0.5 mg 2019-11 00:20: 02 Yes .5mg 0.5 mg, Oral, TIDPRN, Starting 10/31/20 at 1820, Until Discontinu ed, Routine, anxiety [facility] morpHINE injection 2 mg 2019-11 22:52: 10 11-01 05:51 :10 No 2mg 2 mg, Slow IV Push, Q4HPRN, Starting 10/31/20 at 1652, Until 10/31/20 at 2351, Routine, Pain (scale 7-10) [facility] NaCl 0.9% (NS) IV infusion 1,000 mL 2019-11 14:15: 00 Yes 1000mL at 50 mL/hr, IV Infusion, CONTINUOUS , Starting 10/31/20 at 0815, Until Discontinu ed, Routine [facility] morpHINE injection 2 mg 2019-11 14:15: 00 10-31 21:14 :00 No 2mg 2 mg, Slow IV Push, Q4HPRN, Starting 10/31/20 at 0815, Until 10/31/20 at 1514, Routine, Pain (scale 7-10) [facility] hydralAZINE (APRESOLINE ) injection 10 mg 2019-11 14:10: 47 Yes 10mg 10 mg, Slow IV Push, Q4HPRN, Starting 10/31/20 at 0810, Until Discontinu ed, Routine, DBP=>100; SBP=>160, Q4h for SBP>160 or DBP>100
Indicatio n: Hypertensi ve Emergency [facility] HYDROcodone -acetaminop hen (NORCO 5) 5-325 mg tablet 1 tablet 2019-11 14:09: 50 Yes 1{tbl} 1 tablet, Oral, Q6HPRN, Starting 10/31/20 at 0809, Until Discontinu ed, Routine, Pain (scale 4-6) [facility] morpHINE injection 2 mg 2019-11 21:19: 57 10-31 14:09 :18 No 2mg 2 mg, Slow IV Push, Q3HPRN, Starting Mon10/30/20 at 1519, Until 10/31/20 at 0809, Routine, Pain (scale 7-10) [facility] KCL (KLOR-CON M20) tablet 40 mEq 2019-11 18:15: 00 10-30 20:45 :00 No 40meq 40 mEq, Oral, ONCE, 1 dose, Mon10/30/20 at 1215, Routine [facility] magnesium sulfate in water 2 gram/50 mL (4 %) infusion 2 g 2019-11 18:15: 00 10-30 20:37 :00 No 2g 2 g, IV Piggyback, ONCE, 1 dose, Mon10/30/20 at 1215, Routine [facility] metoprolol succinate XL (TOPROL XL) tablet 25 mg 2019-11 15:00: 00 Yes 25mg 25 mg, Oral, DAILY, First dose on Mon10/30/20 at 0900, Until Discontinu ed, Routine [facility] losartan (COZAAR) tablet 50 mg 2019-11 15:00: 00 Yes 50mg 50 mg, Oral, DAILY, First dose on Mon10/30/20 at 0900, Until Discontinu ed, Routine [facility] FLUoxetine (PROZAC) capsule 40 mg 2019-11 15:00: 00 Yes 40mg 40 mg, Oral, DAILY, First dose on Mon10/30/20 at 0900, Until Discontinu ed, Routine [facility] amLODIPine (NORVASC) tablet 5 mg 2019-11 15:00: 00 11-01 19:00 :30 No 5mg 5 mg, Oral, DAILY, First dose on Mon10/30/20 at 0900, Until Discontinu ed, Routine [facility] lipase-prot ease-amylas e (PANCREAZE) 16,800-56,8 00- 98,400 unit capsule 2 capsule 2019-11 23:00: 00 Yes 2{capsu le} 2 capsule, Oral, TID MEALS, First dose on Mon10/29/20 at 1700, Until Discontinu ed
Facu lty member approving Non-formul jesus medication : AZAEL ROGEL
Fieldon son for non-formul jesus use: PATIENT CURRENTLY TAKING NONFORMULA RY PRODUCT [facility] vancomycin (VANCOCIN) capsule 125 mg 2019-11 22:00: 00 Yes 125mg 125 mg, Oral, QID, First dose on Mon10/29/20 at 1600, Until Discontinu ed, Routine
Reason for Anti-Infec tive: Empiric Therapy for Suspected Infection< br>Empiric Therapy Site: Abdominal< br>Duratio n of therapy: 7 days [facility] morpHINE injection 2 mg 2019-11 21:01: 53 10-30 21:00 :53 No 2mg 2 mg, Slow IV Push, Q3HPRN, Starting Mon10/29/20 at 1501, Until Mon10/30/20 at 1500, Routine, Pain (scale 7-10) [facility] KCL (KLOR-CON M20) tablet 40 mEq 2019-11 17:45: 00 10-29 18:56 :00 No 40meq 40 mEq, Oral, ONCE, 1 dose, Mon10/29/20 at 1145, Routine [facility] magnesium sulfate in water 2 gram/50 mL (4 %) infusion 2 g 2019-11 17:45: 00 10-29 21:24 :00 No 2g 2 g, IV Piggyback, ONCE, 1 dose, Ne 10/29/20 at 1145, Routine [facility] NaCl 0.9% (NS) IV infusion 1,000 mL 2019-11 10:00: 00 10-31 14:08 :50 No 1000mL at 125 mL/hr, IV Infusion, CONTINUOUS , Starting Ne 10/29/20 at 0400, Until 10/31/20 at 0808, Routine [facility] enoxaparin (LOVENOX) injection 30 mg 2019-11 23:00: 00 Yes 30mg 30 mg, Subcutaneo us, DAILY, First dose on Mon10/28/20 at 1700, Until Discontinu ed, Routine [facility] pantoprazol e (PROTONIX) 40 mg in NaCl 0.9% (NS) 100 mL MINI-BAG 2019-11 22:15: 00 Yes 40mg 40 mg, IV Piggyback, Q24H, First dose on Mon10/28/20 at 1615, Until Discontinu ed, 100 mL [facility] lactated ringers IV infusion 1,000 mL 2019-11 21:30: 00 10-29 08:49 :30 No 1000mL at 125 mL/hr, 1,000 mL, IV Infusion, CONTINUOUS , Starting Mon10/28/20 at 1530, Until Ne 10/29/20 at 0249, Routine [facility] dicyclomine (BENTYL) injection 20 mg 2019-11 21:30: 00 10-28 20:34 :00 No 20mg 20 mg, Intramuscu lar, ONCE, 1 dose, Mon10/28/20 at 1530, Routine [facility] haloperidol lactate (HALDOL) injection 5 mg 2019-11 21:30: 00 10-28 20:40 :00 No 5mg 5 mg, Intravenou s, ONCE, 1 dose, Mon10/28/20 at 1530, STAT [facility] ketorolac (TORADOL) injection 30 mg 2019-11 20:30: 00 10-28 19:42 :00 No 30mg 30 mg, Slow IV Push, ONCE, 1 dose, Mon10/28/20 at 1430, Routine
[place] tribunal member approving Restricted medication : EVELIN GUERIN [facility] metoclopram curtis HCl (REGLAN) injection 10 mg 2019-11 20:30: 00 10-28 19:42 :00 No 10mg 10 mg, Slow IV Push, ONCE, 1 dose, Mon10/28/20 at 1430, PINEDA [facility] proCHLORper azine (COMPAZINE) 10 mg in NaCl 0.9% (NS) piggyback 2019-11 20:26: 31 11-01 20:26 :57 No 10mg 10 mg, IV Piggyback, Q4HPRN, Starting Mon10/28/20 at 1426, Until 11/01/20 at 1426, 50 mL [facility] proMETHazin e (PHENERGAN) 25 mg in NaCl 0.9% (NS) 50 mL piggyback 2019-11 20:26: 17 Yes 25mg 25 mg, IV Piggyback, Q4HPRN, Starting Mon10/28/20 at 1426, Until Discontinu ed, 50 mL [facility] morpHINE injection 2 mg 2019-11 20:20: 13 10-29 20:19 :13 No 2mg 2 mg, Slow IV Push, Q3HPRN, Starting Mon10/28/20 at 1420, Until Ne 10/29/20 at 1419, Routine, Pain (scale 7-10) [facility] HYDROcodone -acetaminop hen (NORCO 5) 5-325 mg tablet 1 tablet 2019-11 20:20: 02 10-30 20:19 :02 No 1{tbl} 1 tablet, Oral, Q6HPRN, Starting Mon10/28/20 at 1420, Until 10/30/20 at 1419, Routine, Pain (scale 4-6) [facility] acetaminoph en (TYLENOL) tablet 650 mg 2019-11 20:20: 00 Yes 650mg 650 mg, Oral, Q6HPRN, Starting Mon10/28/20 at 1420, Until Discontinu ed, Routine, Pain (scale 1-3) [facility] NaCl 0.9% (NS) IV infusion 1,000 mL 2019-11 18:00: 00 10-28 20:26 :49 No 1000mL at 500 mL/hr, Intravenou s, CONTINUOUS , Starting Mon10/28/20 at 1200, Until Mon10/28/20 at 1426, PINEDA [facility] proMETHazin e (PHENERGAN) 25 mg in NaCl 0.9% (NS) 50 mL piggyback 2019-11 18:00: 00 10-28 16:57 :00 No 25mg 25 mg, IV Piggyback, ONCE, 1 dose, Mon10/28/20 at 1200, 50 mL [facility] iohexol (OMNIPAQUE 350 BULK-150 mL) injection 120 mL 2019-11 17:45: 00 10-28 17:38 :00 No 120mL 120 mL, Intravenou s, ONCE, 1 dose, Mon10/28/20 at 1145, Routine [facility] FLUoxetine (PROZAC) 20 mg capsule 2019-11 18:46: 19 Yes 20mg Take 20 mg by mouth daily. [facility] metoprolol succinate XL 25 mg 24 hr tablet 2019-11 18:46: 19 Yes 25mg Take 25 mg by mouth daily. [facility] lipase-prot ease-amylas e (CREON) 36,000-114, 000- 180,000 unit CpDR 2019-11 18:46: 19 Yes Take 2 TAB-CAP/M2 by mouth before meals. Take 2 capsules by mouth with meals and 1 with each snack. [facility] magnesium sulfate in water 2 gram/50 mL (4 %) infusion 2 g 2019-11 02:30: 00 09-30 02:29 :00 No 2g 2 g, IV Piggyback, ONCE, 1 dose, Mon09/29/20 at 2030, Routine [facility] magnesium oxide (MAG-OX 400) tablet 400 mg 2019-11 01:30: 00 Yes 400mg 400 mg, Oral, BID, First dose on Mon09/29/20 at 1930, Until Discontinu ed, Routine [facility] KCL (KLOR-CON M20) tablet 20 mEq 2019-11 01:30: 00 Yes 20meq 20 mEq, Oral, DAILY, First dose on Mon09/29/20 at 1930, Until Discontinu ed, Routine [facility] proMETHazin e 25 mg tablet 2019-11 00:00: 11-02 00:00 :00 No [id number] 25mg Take 1 tablet by mouth 3 (three) times daily as needed for Nausea and Vomiting (N/V). [facility] metoclopram curtis HCl 10 mg tablet 2019-11 00:00: 11-02 00:00 :00 No [id number] 10mg Take 1 tablet by mouth 3 (three) times daily as needed for Nausea and Vomiting (N/V). [facility] lactobacill us acidophilus 25 million cell -100 mg captab 2019-11 00:00: 00 10-15 05:59 :00 No [id number] 1{tbl} Take 1 tablet by mouth 2 (two) times daily for 14 days. [facility] acetaminoph en-codeine 300-30 mg tablet 2019-11 00:00: 00 10-08 05:59 :00 No [id number] 2{tbl} Take 2 tablets by mouth 2 (two) times daily as needed for Pain (scale 4-6) or Pain (scale 7-10) for up to 7 days. Indication s: acute pain [facility] ciprofloxac in HCl 500 mg tablet 2019-11 00:00: 00 10-06 05:59 :00 No [id number] 500mg Take 1 tablet by mouth every 12 (twelve) hours for 5 days. [facility] metroNIDAZO LE 500 mg tablet 2019-11 00:00: 00 10-06 05:59 :00 No [id number] 500mg Take 1 tablet by mouth every 8 (eight) hours for 5 days. [facility] morpHINE injection 2 mg 2019-11 20:51: 08 09-30 20:50 :08 No 2mg 2 mg, Slow IV Push, Q4HPRN, Starting Mon09/29/20 at 1451, Until Mon09/30/20 at 1450, Routine, Pain (scale 7-10) [facility] metoclopram curtis HCl (REGLAN) injection 10 mg 2019-11 20:00: 00 Yes 10mg 10 mg, Slow IV Push, TID, First dose on Mon09/29/20 at 1400, Until Discontinu ed, Routine [facility] alum-mag hydroxide-s imeth (MAALOX PLUS / MAG-AL PLUS) 200-200-20 mg/5 mL suspension 30 mL 2019-11 19:30: 00 Yes 30mL 30 mL, Oral, BID, First dose on Mon09/29/20 at 1330, Until Discontinu ed, Routine [facility] lactobacill us acidophilus (ACIDOPHILL US) 25 million cell -100 mg captab 1 tablet 2019-11 19:30: 00 Yes 1{tbl} 1 tablet, Oral, BID, First dose on Mon09/29/20 at 1330, Until Discontinu ed, Routine [facility] HYDROcodone -acetaminop hen (NORCO 5) 5-325 mg tablet 1 tablet 2019-11 19:16: 37 Yes 1{tbl} 1 tablet, Oral, TIDPRN, Starting Mon09/29/20 at 1316, Until Discontinu ed, Routine, Pain (scale 4-6) [facility] pantoprazol e (PROTONIX) EC tablet 40 mg 2019-11 15:00: 00 Yes 40mg 40 mg, Oral, DAILY, First dose on Mon09/29/20 at 0900, Until Discontinu ed, Routine [facility] metoprolol succinate XL (TOPROL XL) tablet 25 mg 2019-11 15:00: 00 Yes 25mg 25 mg, Oral, DAILY, First dose on Mon09/29/20 at 0900, Until Discontinu ed, [facility] FLU[facility] ([facility]AC) capsule 20 mg 2019-11 15:00: 00 Yes 20mg 20 mg, Oral, DAILY, First dose on Mon09/29/20 at 0900, Until Discontinu ed, Routine [facility] losartan (COZAAR) tablet 50 mg 2019-11 15:00: 00 09-29 19:14 :30 No 50mg 50 mg, Oral, DAILY, First dose on Mon09/29/20 at 0900, Until Discontinu ed, Routine [facility] amLODIPine (NORVASC) tablet 5 mg 2019-11 15:00: 00 09-29 19:14 :30 No 5mg 5 mg, Oral, DAILY, First dose on Mon09/29/20 at 0900, Until Discontinu ed, Routine [facility] lipase-prot ease-amylas e (CREON) 12,000-38,0 00 -60,000 unit capsule 2 capsule 2019-11 14:00: 00 Yes 2{capsu le} 2 capsule, Oral, TID MEALS, First dose on Mon09/29/20 at 0800, Until Discontinu ed [facility] ondansetron (ZOFRAN (PF)) injection 4 mg 2019-11 08:45: 10 Yes 4mg 4 mg, Slow IV Push, Q6HPRN, Starting Mon09/29/20 at 0245, Until Discontinu ed, Routine, Nausea and Vomiting (N/V) [facility] metoclopram curtis HCl (REGLAN) injection 10 mg 2019-11 23:30: 00 09-28 22:25 :00 No 10mg 10 mg, Slow IV Push, ONCE, 1 dose, Mon09/28/20 at 1730, PINEDA [facility] morpHINE injection 2 mg 2019-11 23:21: 45 09-29 19:17 :54 No 2mg 2 mg, Slow IV Push, Q3HPRN, Starting Mon09/28/20 at 1721, Until Mon09/29/20 at 1317, Routine, Pain (scale 7-10) [facility] proMETHazin e (PHENERGAN) 25 mg in NaCl 0.9% (NS) 50 mL piggyback 2019-11 23:18: 48 Yes 25mg 25 mg, IV Piggyback, Q6HPRN, Starting Mon09/28/20 at 1718, Until Discontinu ed, 50 mL [facility] enoxaparin (LOVENOX) injection 30 mg 2019-11 23:00: 00 Yes 30mg 30 mg, Subcutaneo us, DAILY, First dose on Mon09/28/20 at 1700, Until Discontinu ed, Routine [facility] D5W 0.45% NaCl (1/2NS) 1 L + KCL 20 mEq 2019-11 21:45: 00 Yes IV Infusion, at 125 mL/hr, CONTINUOUS , Starting Mon09/28/20 at 1545, Until Discontinu ed, Routine [facility] metroNIDAZO LE in NaCl (iso-os) (FLAGYL I.V.) RTU IV infusion 500 mg 2019-11 21:30: 00 Yes 500mg 500 mg, IV Infusion, Q8H ABX, First dose on Mon09/28/20 at 1530, Until Discontinu ed, 100 mL
Reas on for Anti-Infec tive: Documented Infection< br>Documen carrie Infection Site: Abdominal< br>Duratio n of Therapy: Other (see Comments) [facility] ciprofloxac in in 5 % dextrose (CIPRO) piggyback 400 mg 2019-11 21:30: 00 Yes 400mg 400 mg, IV Piggyback, Administer over 60 Minutes, Q12H ABX, First dose on Mon09/28/20 at 1530, Until Discontinu ed, PINEDA
Re ason for Anti-Infec tive: Documented Infection< br>Documen carrie Infection Site: Abdominal< br>Duratio n of Therapy: Other (see Comments) [facility] haloperidol lactate (HALDOL) injection 1 mg 2019-11 21:30: 00 09-28 20:34 :00 No 1mg 1 mg, Intravenou s, ONCE, 1 dose, Mon09/28/20 at 1530, STAT [facility] morpHINE injection 4 mg 2019-11 21:15: 00 09-28 20:34 :00 No 4mg 4 mg, Slow IV Push, ONCE, 1 dose, 09/28/20 at 1515, STAT [facility] ondansetron (ZOFRAN (PF)) injection 4 mg 2019-11 21:00: 00 09-28 20:01 :00 No 4mg 4 mg, Slow IV Push, ONCE, 1 dose, 09/28/20 at 1500, PINEDA [facility] iohexol (OMNIPAQUE 350 BULK-150 mL) injection 120 mL 2019-11 19:45: 00 09-28 19:38 :00 No 120mL 120 mL, Intravenou s, ONCE, 1 dose, 09/28/20 at 1345, Routine [facility] haloperidol lactate (HALDOL) injection 1 mg 2019-11 19:15: 00 09-28 18:32 :00 No 1mg 1 mg, Slow IV Push, ONCE, 1 dose, 09/28/20 at 1315, STAT [facility] proMETHazin e (PHENERGAN) 25 mg in NaCl 0.9% (NS) 50 mL piggyback 2019-11 18:45: 00 09-28 17:55 :00 No 25mg 25 mg, IV Piggyback, ONCE, 1 dose, 09/28/20 at 1245, 50 mL [facility] NaCl 0.9% (NS) bolus infusion 1,000 mL 2019-11 18:45: 00 09-28 20:03 :00 No 1000mL at 999 mL/hr, 1,000 mL, IV Infusion, ONCE, 1 dose, 09/28/20 at 1245, STAT [facility] haloperidol lactate (HALDOL) injection 2.5 mg 08-05 18:30: 00 08-05 17:30 :00 No 2.5mg 2.5 mg, Slow IV Push, ONCE, 1 dose, 08/05/20 at 1330, Routine [facility] diphenhydrA MINE (BENADRYL) injection 25 mg 08-05 16:30: 00 08-05 15:41 :00 No 25mg 25 mg, Slow IV Push, ONCE, 1 dose, 08/05/20 at 1130, STAT [facility] haloperidol lactate (HALDOL) injection 2.5 mg 08-05 16:30: 00 08-05 15:38 :00 No 2.5mg 2.5 mg, Slow IV Push, ONCE, 1 dose, 08/05/20 at 1130, Routine [facility] NaCl 0.9% (NS) bolus infusion 1,000 mL 08-05 15:30: 08-05 20:00 :00 No 1000mL at 999 mL/hr, 1,000 mL, IV Infusion, ONCE, 1 dose, 08/05/20 at 1030, STAT [facility] NaCl 0.9% (NS) bolus infusion 1,000 mL 08-03 17:15: 00 08-03 17:20 :00 No 1000mL at 999 mL/hr, 1,000 mL, IV Piggyback, ONCE, 1 dose, 08/03/20 at 1215, STAT [facility] iohexol (OMNIPAQUE 350 BULK-150 mL) injection 120 mL 08-03 15:30: 00 08-03 14:47 :00 No 120mL 120 mL, Intravenou s, ONCE, 1 dose, 08/03/20 at 1030, Routine [facility] haloperidol lactate (HALDOL) injection 2.5 mg 08-03 15:30: 00 08-03 16:11 :00 No 2.5mg 2.5 mg, Intravenou s, ONCE, 1 dose, 08/03/20 at 1030, STAT [facility] ondansetron (ZOFRAN (PF)) injection 4 mg 08-03 15:30: 00 08-03 14:21 :00 No 4mg 4 mg, Slow IV Push, ONCE, 1 dose, 08/03/20 at 1030, PINEDA [facility] morpHINE injection 4 mg 08-03 15:30: 00 08-03 14:21 :00 No 4mg 4 mg, Slow IV Push, ONCE, 1 dose, 08/03/20 at 1030, STAT [facility] sucralfate 1 gram tablet 08-03 00:00: 00 11-02 00:00 :00 No [id number] 1g Take 1 tablet by mouth before meals and at bedtime. [facility] dicyclomine (BENTYL) 10 mg capsule 08-03 00:00: 11-02 00:00 :00 No [id number] 10mg Take 1 capsule by mouth every 8 (eight) hours as needed for Abdominal pain. [facility] ondansetron 4 mg disintegrat ing tablet 08-03 00:00: 00 11-02 00:00 :00 No [id number] 4mg Take 1 tablet by mouth every 8 (eight) hours as needed for Nausea and Vomiting (N/V). [facility] omeprazole 20 mg capsule 08-03 00:00: 00 09-03 04:59 :00 No [id number] 20mg Take 1 capsule by mouth daily for 30 days. [facility] FLUoxetine (PROZAC) 20 mg capsule 05-22 20:40: 13 Yes 20mg Take 20 mg by mouth daily. [facility] metoprolol succinate XL 25 mg 24 hr tablet 05-22 20:40: 13 Yes 25mg Take 25 mg by mouth daily. [facility] FLUoxetine (PROZAC) 20 mg capsule 05-22 19:59: 15 Yes 20mg Take 20 mg by mouth daily. [facility] metoprolol succinate XL 25 mg 24 hr tablet 05-22 19:59: 15 Yes 25mg Take 25 mg by mouth daily. [facility] proMETHazin e (PHENERGAN) 25 mg in NaCl 0.9% (NS) 50 mL (COMPOUNDED ) Piggyback 25 mg 05-22 13:40: 37 Yes 25mg 25 mg, IV Piggyback, Q4HPRN, Starting Mon05/22/20 at 0840, Until Discontinu ed, 50 mL [facility] morpHINE injection 2 mg 05-22 12:51: 57 05-23 12:50 :57 No 2mg 2 mg, Slow IV Push, Q4HPRN, Starting Mon05/22/20 at 0751, Until 05/23/20 at 0750, Routine, Pain (scale 7-10), Hold for SBP<110, DBP<60, RR<12, and/or drowsiness /sedation [facility] LORazepam (ATIVAN) tablet 0.5 mg 05-22 01:19: 21 Yes .5mg 0.5 mg, Oral, QHSPRN, Starting Mon05/21/20 at 2019, Until Discontinu ed, Routine, Anxiety [facility] lipase-prot ease-amylas e (CREON) 12,000-38,0 00 -60,000 unit capsule 2 capsule 05-22 01:00: 00 Yes 2{capsu le} 2 capsule, Oral, TID MEALS, First dose on Mon05/21/20 at 2000, Until Discontinu ed, Routine [facility] KCL 20 mEq/15 mL solution 40 mEq 05-22 01:00: 00 05-22 13:36 :49 No 40meq 40 mEq, Oral, BID, First dose on Mon05/21/20 at 2000, Until Discontinu ed, Routine [facility] Amylase-Lip ase-Proteas e (CREON) 24,000-76,0 00 -120,000 unit capsule 05-22 00:00: 00 05-30 04:59 :00 No [id number] Take 1 capsule by mouth 3 (three) times daily for 7 days. [facility] potassium chloride 10 mEq in 100 mL RTU 05-21 19:30: 00 05-22 00:45 :00 No 10meq 10 mEq, IV Piggyback, Q1H, 3 doses, First dose on Mon05/21/20 at 1430, Last dose on Mon05/21/20 at 1600, 100 mL [facility] NaCl 0.9% (NS) 1000 mL + KCL 20 mEq 05-21 14:15: 00 05-22 15:12 :13 No IV Infusion, at 125 mL/hr, CONTINUOUS , Starting Mon05/21/20 at 0915, Until Mon05/22/20 at 1012, Routine [facility] KCL 20 mEq/15 mL solution 40 mEq 05-21 14:15: 00 05-21 15:06 :00 No 40meq 40 mEq, Oral, ONCE, 1 dose, En 05/21/20 at 0915, Routine [facility] pantoprazol e (PROTONIX) EC tablet 40 mg 05-21 14:00: 00 Yes 40mg 40 mg, Oral, DAILY, First dose on Ne 05/21/20 at 0900, Until Discontinu ed, Routine [facility] metoprolol succinate XL (TOPROL XL) tablet 25 mg 05-21 14:00: 00 Yes 25mg 25 mg, Oral, DAILY, First dose on Ne 05/21/20 at 0900, Until Discontinu ed, Routine [facility] losartan (COZAAR) tablet 50 mg 05-21 14:00: 00 Yes 50mg 50 mg, Oral, DAILY, First dose on Ne 05/21/20 at 0900, Until Discontinu ed, Routine [facility] FLUoxetine (PROZAC) capsule 20 mg 05-21 14:00: 00 Yes 20mg 20 mg, Oral, DAILY, First dose on Ne 05/21/20 at 0900, Until Discontinu ed, Routine [facility] amLODIPine (NORVASC) tablet 5 mg 05-21 14:00: 00 Yes 5mg 5 mg, Oral, DAILY, First dose on Ne 05/21/20 at 0900, Until Discontinu ed, Routine [facility] magnesium sulfate in water 2 gram/50 mL (4 %) infusion 2 g 05-21 14:00: 00 05-21 15:07 :00 No 2g 2 g, IV Piggyback, ONCE, 1 dose, Ne 7/9/20 at 0900, Routine [facility] HYDROcodone -acetaminop hen (NORCO) 10-325 mg tablet 1 tablet 05-21 13:15: 00 Yes 1{tbl} 1 tablet, Oral, Q6H, First dose on Ne 05/21/20 at 0815, Until Discontinu ed, Routine [facility] proMETHazin e (PHENERGAN) 25 mg in NaCl 0.9% (NS) 50 mL piggyback 05-21 13:02: 09 Yes 25mg 25 mg, IV Piggyback, Q4HPRN, Starting [facility] 05/21/20 at 0802, Until Discontinu ed, 50 mL [facility] lipase-prot ease-amylas e (CREON) 12,000-38,0 00 -60,000 unit capsule 1 capsule 05-21 13:00: 00 05-22 00:50 :41 No 1{capsu le} 1 capsule, Oral, TID MEALS, First dose on Ne 05/21/20 at 0800, Until Discontinu ed, Routine [facility] hydralAZINE (APRESOLINE ) injection 10 mg 05-21 10:46: 34 Yes 10mg 10 mg, Intravenou s, Q6HPRN, Starting Ne 05/21/20 at 0546, Until Discontinu ed, Routine, Hypertensi on [facility] FLUoxetine (PROZAC) 20 mg capsule 05-21 10:41: 19 Yes 20mg Take 20 mg by mouth daily. [facility] metoprolol succinate XL 25 mg 24 hr tablet 05-21 10:41: 19 Yes 25mg Take 25 mg by mouth daily. [facility] NaCl 0.9% (NS) IV infusion 1,000 mL 05-21 09:15: 00 05-21 13:06 :56 No 1000mL at 125 mL/hr, IV Infusion, CONTINUOUS , Starting [facility] 05/21/20 at 0415, Until Ne 05/21/20 at 0806, Routine [facility] proCHLORper azine (COMPAZINE) injection 10 mg 05-21 09:10: 14 Yes 10mg 10 mg, Slow IV Push, Q6HPRN, Starting Ne 05/21/20 at 0410, Until Discontinu ed, Routine, Nausea and Vomiting (N/V), N/V unresponsi ve to Ondansetro n [facility] morpHINE injection 2 mg 05-21 09:09: 25 05-22 09:08 :25 No 2mg 2 mg, Slow IV Push, Q4HPRN, Starting Mon05/21/20 at 0409, Until Mon05/22/20 at 0408, Routine, Pain (scale 7-10), Hold for SBP<110, DBP<60, RR<12, and/or drowsiness /sedation [facility] acetaminoph en (TYLENOL) tablet 650 mg 05-21 09:09: 12 Yes 650mg 650 mg, Oral, Q6HPRN, Starting [facility] 05/21/20 at 0409, Until Discontinu ed, Routine, Pain (scale 1-3) [facility] LORazepam (ATIVAN) injection 1 mg 05-21 06:30: 00 05-21 05:31 :00 No 1mg 1 mg, Slow IV Push, ONCE, 1 dose, [facility] 05/21/20 at 0130, STAT [facility] proMETHazin e (PHENERGAN) 25 mg in NaCl 0.9% (NS) 50 mL piggyback 05-21 06:30: 00 05-21 05:34 :00 No 25mg 25 mg, IV Piggyback, ONCE, 1 dose, [facility] 05/21/20 at 0130, 50 mL [facility] potassium chloride in water 10 mEq/100 mL 10 mEq piggyback 05-21 05:30: 00 05-21 06:30 :00 No 10meq 10 mEq, IV Piggyback, ONCE, 1 dose, [facility] 05/21/20 at 0030 [facility] proCHLORper azine (COMPAZINE) 10 mg in NaCl 0.9% (NS) piggyback 05-21 04:15: 00 05-21 04:15 :00 No 10mg 10 mg, IV Piggyback, ONCE, 1 dose, 05/20/20 at 2315, 50 mL [facility] NaCl 0.9% (NS) bolus infusion 1,000 mL 05-21 04:15: 00 05-21 06:53 :00 No 1000mL at 999 mL/hr, 1,000 mL, IV Infusion, ONCE, 1 dose, Mon05/20/20 at 2315, STAT [facility] losartan 50 mg tablet 05-21 00:00: 11-27 00:00 :00 No [id number] 50mg Take 1 tablet by mouth daily. [facility] amLODIPine 5 mg tablet 05-21 00:00: 11-02 00:00 :00 No [id number] 5mg Take 1 tablet by mouth daily. [facility] FLUoxetine (PROZAC) 20 mg capsule 05-20 20:11: 39 Yes 20mg Take 20 mg by mouth daily. [facility] metoprolol succinate XL 25 mg 24 hr tablet 05-20 20:11: 39 Yes 25mg Take 25 mg by mouth daily. [facility] proMETHazin e 25 mg tablet 05-20 00:00: 00 12-25 00:00 :00 No [id number] 25mg Take 1 tablet by mouth every 6 (six) hours as needed for Nausea and Vomiting (N/V). [facility] HYDROcodone -acetaminop hen 10-325 mg tablet 05-20 00:00: 11-02 00:00 :00 No [id number] 1{tbl} Take 1 tablet by mouth every 6 (six) hours as needed for Pain (scale 7-10). Indication s: acute pain [facility] doxycycline hyclate 100 mg capsule 05-20 00:00: 00 05-26 04:59 :00 No [id number] 100mg Take 1 capsule by mouth 2 (two) times daily for 5 days. [facility] gadobenate dimeglumine (MULTIHANCE -20 mL) injection 12.6 mL 05-19 16:30: 00 05-19 16:30 :00 No .2mL/kg 12.6 mL (0.2 mL/kg ?63 kg), Intravenou s, ONCE, 1 dose, Mon05/19/20 at 1130, Routine [facility] losartan (COZAAR) tablet 50 mg 05-19 14:00: 00 Yes 50mg 50 mg, Oral, DAILY, First dose on Mon05/19/20 at 0900, Until Discontinu ed, Routine [facility] amLODIPine (NORVASC) tablet 5 mg 05-19 14:00: 00 Yes 5mg 5 mg, Oral, DAILY, First dose on Mon05/19/20 at 0900, Until Discontinu ed, Routine [facility] morpHINE injection 2 mg 05-18 17:54: 40 Yes 2mg 2 mg, Slow IV Push, Q4HPRN, Starting Mon05/18/20 at 1254, Until Discontinu ed, Routine, Pain (scale 7-10) [facility] HYDROcodone -acetaminop hen (NORCO 5) 5-325 mg tablet 1 tablet 05-18 15:26: 40 05-18 17:50 :42 No 1{tbl} 1 tablet, Oral, Q6HPRN, Starting Mon05/18/20 at 1026, Until Mon05/18/20 at 1250, Routine, Pain (scale 4-6) [facility] sincalide (KINEVAC) injection 1.1 mcg 05-18 15:00: 00 05-18 15:00 :00 No 1.1ug 1.1 mcg, IV Push, ONCE, 1 dose, Mon05/18/20 at 1000, Routine [facility] tc 99m-mebrofe hammad injection 9.3 millicurie 05-18 13:45: 00 05-18 13:45 :00 No 9.3mCi 9.3 millicurie , Intravenou s, ONCE, 1 dose, Mon05/18/20 at 0845, Routine [facility] haloperidol lactate (HALDOL) injection 5 mg 05-17 23:00: 00 05-17 22:37 :00 No 5mg 5 mg, Intramuscu lar, ONCE, 1 dose, 05/17/20 at 1800, Routine [facility] ketorolac (TORADOL) injection 15 mg 05-17 20:24: 30 05-18 17:42 :00 No 15mg 15 mg, Slow IV Push, Q6HPRN, 4 doses, Starting 05/17/20 at 1524, Until 05/18/20 at 1242, Routine, Pain (scale 4-6), Pain (scale 7-10)
F aculty member approving Restricted medication : SUINTHA CORRAL [facility] proCHLORper azine (COMPAZINE) 5 mg in NaCl 0.9% (NS) piggyback 05-17 20:23: 37 Yes 5mg 5 mg, IV Piggyback, Q6HPRN, Starting 05/17/20 at 1523, Until Discontinu ed, 50 mL [facility] LORazepam (ATIVAN) injection 0.5 mg 05-17 18:47: 11 Yes .5mg 0.5 mg, Slow IV Push, BIDPRN, Starting 05/17/20 at 1347, Until Discontinu ed, Routine, Anxiety [facility] ALPRAZolam (XANAX) tablet 0.5 mg 05-17 17:39: 17 05-17 18:46 :54 No .5mg 0.5 mg, Oral, TIDPRN, Starting Mon05/17/20 at 1239, Until 05/17/20 at 1346, Routine, anxiety [facility] nicotine (NICODERM) 14 mg/24 hr patch 1 Patch 05-16 19:30: 00 Yes 1{patch } 1 Patch, Topical, Administer over 24 Hours, Q24H, First dose on 05/16/20 at 1430, Until Discontinu ed, Routine [facility] busPIRone (BUSPAR) tablet 10 mg 05-16 18:30: 00 Yes 10mg 10 mg, Oral, BID, First dose on 05/16/20 at 1330, Until Discontinu ed, Routine [facility] enoxaparin (LOVENOX) injection 40 mg 05-16 14:00: 00 Yes 40mg 40 mg, Subcutaneo us, DAILY, First dose on 05/16/20 at 0900, Until Discontinu ed, Routine [facility] metoprolol succinate XL (TOPROL XL) tablet 25 mg 05-16 14:00: 00 Yes 25mg 25 mg, Oral, DAILY, First dose on 05/16/20 at 0900, Until Discontinu ed, Routine [facility] FLUoxetine (PROZAC) capsule 20 mg 05-16 14:00: 00 Yes 20mg 20 mg, Oral, DAILY, First dose on 05/16/20 at 0900, Until Discontinu ed, Routine [facility] lipase-prot ease-amylas e (CREON) 12,000-38,0 00 -60,000 unit capsule 1 capsule 05-16 13:00: 00 Yes 1{capsu le} 1 capsule, Oral, TID MEALS, First dose on 05/16/20 at 0800, Until Discontinu ed, Routine [facility] dicyclomine (BENTYL) injection 20 mg 05-16 13:00: 00 05-16 06:32 :40 No 20mg 20 mg, Intramuscu lar, QID, First dose on 05/16/20 at 0800, Until Discontinu ed, Routine [facility] proMETHazin e (PHENERGAN) 25 mg in NaCl 0.9% (NS) 50 mL IV piggyback 05-16 12:44: 34 Yes 25mg 25 mg, IV Piggyback, Q4HPRN, Starting 05/16/20 at 0744, Until Discontinu ed, Routine, N/V unresponsi ve to Ondansetro n [facility] hydralAZINE (APRESOLINE ) injection 5 mg 05-16 08:08: 09 Yes 5mg 5 mg, Intravenou s, Q4HPRN, Starting 05/16/20 at 0308, Until Discontinu ed, Routine, sbp > 160 or dbp > 100 [facility] NaCl 0.9% (NS) IV infusion 1,000 mL 05-16 07:00: 00 Yes 1000mL at 100 mL/hr, IV Infusion, CONTINUOUS , Starting 05/16/20 at 0200, Until Discontinu ed, Routine [facility] morpHINE injection 2 mg 05-16 06:56: 47 05-17 12:58 :18 No 2mg 2 mg, Slow IV Push, Q4HPRN, Starting 05/16/20 at 0156, Until 05/17/20 at 0758, Routine, Pain (scale 7-10) [facility] FLUoxetine (PROZAC) 20 mg capsule 05-16 06:53: 16 Yes 20mg Take 20 mg by mouth daily. [facility] metoprolol succinate XL 25 mg 24 hr tablet 05-16 06:53: 16 Yes 25mg Take 25 mg by mouth daily. [facility] traMADol (ULTRAM) tablet 50 mg 05-16 06:30: 02 05-17 12:58 :18 No 50mg 50 mg, Oral, Q8HPRN, Starting 05/16/20 at 0130, Until 05/17/20 at 0758, Routine, Pain (scale 4-6) [facility] famotidine (PEPCID (PF)) injection 20 mg 05-16 06:30: 00 Yes 20mg 20 mg, Slow IV Push, Q12H, First dose on 05/16/20 at 0130, Until Discontinu ed, Routine [facility] acetaminoph en (TYLENOL) tablet 650 mg 05-16 06:29: 54 Yes 650mg 650 mg, Oral, Q6HPRN, Starting 05/16/20 at 0129, Until Discontinu ed, Routine, Pain (scale 1-3) [facility] proCHLORper azine (COMPAZINE) 10 mg in NaCl 0.9% (NS) piggyback 05-16 06:15: 00 05-16 05:14 :00 No 10mg 10 mg, IV Piggyback, ONCE, 1 dose, 05/16/20 at 0115, 50 mL [facility] KCL (POTASSIUM CHLORIDE) 20 mEq in NaCl 0.9% (NS) 100 mL piggyback 05-16 06:14: 00 05-16 07:34 :00 No 20meq 20 mEq, IV Piggyback, ONCE, 1 dose, 05/16/20 at 0115, 100 mL [facility] ondansetron (ZOFRAN (PF)) injection 4 mg 05-16 05:53: 28 Yes 4mg 4 mg, Slow IV Push, Q6HPRN, Starting 05/16/20 at 0053, Until Discontinu ed, Routine, Nausea and Vomiting (N/V) [facility] NaCl 0.9% (NS) bolus infusion 1,000 mL 05-16 05:15: 00 05-16 05:14 :00 No 1000mL at 999 mL/hr, 1,000 mL, IV Infusion, ONCE, 1 dose, 05/16/20 at 0015, PINEDA [facility] proMETHazin e (PHENERGAN) 25 mg in NaCl 0.9% (NS) 50 mL piggyback 05-16 05:00: 00 05-16 04:23 :00 No 25mg 25 mg, IV Piggyback, ONCE, 1 dose, 05/16/20 at 0000, 50 mL [facility] metoclopram curtis HCl (REGLAN) injection 10 mg 05-16 03:30: 00 05-16 02:23 :00 No 10mg 10 mg, Slow IV Push, ONCE, 1 dose, 05/15/20 at 2230, PINEDA [facility] haloperidol lactate (HALDOL) injection 2.5 mg 05-16 03:30: 00 05-16 02:23 :00 No 2.5mg 2.5 mg, Intravenou s, ONCE, 1 dose, 05/15/20 at 2230, STAT [facility] NaCl 0.9% (NS) bolus infusion 1,000 mL 05-16 02:30: 00 05-16 03:17 :00 No 1000mL at 999 mL/hr, 1,000 mL, IV Infusion, ONCE, 1 dose, Mon05/15/20 at 2130, PINEDA [facility] proMETHazin e 25 mg tablet 04-23 00:00: 00 05-20 00:00 :00 No [id number] 25mg Take 1 tablet by mouth every 6 (six) hours as needed for Nausea and Vomiting (N/V). [facility] acetaminoph en-codeine 300-30 mg tablet 04-23 00:00: 00 05-20 00:00 :00 No [id number] 1{tbl} Take 1 tablet by mouth every 4 (four) hours as needed for Pain (scale 4-6). [facility] FLUoxetine (PROZAC) 20 mg capsule 04-14 19:36: 55 Yes 20mg Take 20 mg by mouth daily. [facility] metoprolol succinate XL 25 mg 24 hr tablet 04-14 19:36: 55 Yes 25mg Take 25 mg by mouth daily. [facility] pantoprazol e 40 mg EC tablet 04-14 00:00: 00 01-12 00:00 :00 No [id number] 40mg Take 1 tablet by mouth daily. [facility] lipase-prot ease-amylas e 12,000-38,0 00 -60,000 unit capsule 04-14 00:00: 00 05-22 00:00 :00 No [id number] 1{capsu le} Take 1 capsule by mouth 3 (three) times daily with meals. [facility] proMETHazin e 25 mg tablet 04-14 00:00: 00 04-23 00:00 :00 No [id number] 25mg Take 1 tablet by mouth every 4 (four) hours as needed for Nausea and Vomiting (N/V). [facility] acetaminoph en-codeine 300-30 mg tablet 04-14 00:00: 00 04-23 00:00 :00 No [id number] 1{tbl} Take 1 tablet by mouth every 4 (four) hours as needed for Pain (scale 4-6). [facility] lisinopril 10 mg tablet 04-08 00:00: 00 05-09 04:59 :00 No [id number] 10mg Take 1 tablet by mouth daily for 30 days. [facility] FLUoxetine (PROZAC) 20 mg capsule 04-07 17:23: 03 Yes 20mg Take 20 mg by mouth daily. [facility] busPIRone 10 mg tablet 04-07 17:23: 03 Yes 10mg Take 10 mg by mouth 2 (two) times daily. [facility] metoprolol succinate XL 25 mg 24 hr tablet 04-07 17:23: 03 Yes 25mg Take 25 mg by mouth daily. [facility] hydralAZINE (APRESOLINE ) injection 10 mg 04-07 15:20: 11 Yes 10mg 10 mg, Intravenou s, PRN - SEE INSTRUCTIO NS, Starting Mon04/07/20 at 1020, Until Discontinu ed, Routine, Hypertensi ve emergency, Hypertensi on, Q4h for SBP>160 or DBP>100 [facility] KCL (KLOR-CON M20) tablet 40 mEq 04-07 14:15: 00 04-07 13:40 :00 No 40meq 40 mEq, Oral, ONCE, 1 dose, Mon04/07/20 at 0915, Routine [facility] lisinopril (PRINIVIL,Z ESTRIL) tablet 10 mg 04-07 14:00: 00 Yes 10mg 10 mg, Oral, DAILY, First dose on Mon04/07/20 at 0900, Until Discontinu ed, Routine [facility] proMETHazin e 25 mg tablet 04-07 00:00: 00 Yes [id number] 25mg Take 1 tablet by mouth every 4 (four) hours as needed for Nausea and Vomiting (N/V). [facility] acetaminoph en-codeine 300-30 mg tablet 04-07 00:00: 00 Yes [id number] 1{tbl} Take 1 tablet by mouth every 4 (four) hours as needed for Pain (scale 4-6). [facility] haloperidol lactate (HALDOL) injection 5 mg 04-06 19:45: 00 04-06 18:46 :00 No 5mg 5 mg, Intravenou s, ONCE, 1 dose, Mon04/06/20 at 1445, STAT [facility] proCHLORper azine (COMPAZINE) injection 5 mg 04-06 14:30: 00 04-06 14:21 :00 No 5mg 5 mg, Slow IV Push, ONCE, 1 dose, Mon04/06/20 at 0930, Routine [facility] enoxaparin (LOVENOX) injection 40 mg 04-06 14:00: 00 Yes 40mg 40 mg, Subcutaneo us, DAILY, First dose on Mon04/06/20 at 0900, Until Discontinu ed, Routine [facility] sennosides (SENOKOT) tablet 8.6 mg 04-06 14:00: 00 Yes 8.6mg 8.6 mg, Oral, DAILY, First dose on Mon04/06/20 at 0900, Until Discontinu ed, Routine [facility] metoprolol succinate XL (TOPROL XL) tablet 25 mg 04-06 14:00: 00 Yes 25mg 25 mg, Oral, DAILY, First dose on Mon04/06/20 at 0900, Until Discontinu ed, Routine [facility] FLUoxetine (PROZAC) capsule 20 mg 04-06 14:00: 00 Yes 20mg 20 mg, Oral, DAILY, First dose on Mon04/06/20 at 0900, Until Discontinu ed, Routine [facility] lipase-prot ease-amylas e (CREON) 12,000-38,0 00 -60,000 unit capsule 1 capsule 04-06 13:00: 00 Yes 1{capsu le} 1 capsule, Oral, TID MEALS, First dose on Mon04/06/20 at 0800, Until Discontinu ed, Routine [facility] NaCl 0.9% (NS) IV infusion 1,000 mL 04-06 02:00: 00 Yes 1000mL at 75 mL/hr, IV Infusion, CONTINUOUS , Starting 04/05/20 at 2100, Until Discontinu ed, Routine [facility] busPIRone (BUSPAR) tablet 10 mg 04-06 01:00: 00 Yes 10mg 10 mg, Oral, BID, First dose on Mon04/05/20 at 1999, Until Discontinu ed, Routine [facility] pantoprazol e (PROTONIX) 40 mg in NaCl 0.9% (NS) 100 mL MINI-BAG 04-06 01:00: 00 Yes 40mg 40 mg, IV Piggyback, Q12H, First dose on Mon04/05/20 at 1999, Until Discontinu ed, 100 mL [facility] haloperidol lactate (HALDOL) injection 5 mg 04-06 01:00: 00 04-06 00:01 :00 No 5mg 5 mg, Intravenou s, ONCE, 1 dose, Mon04/05/20 at 1999, STAT [facility] hydralAZINE (APRESOLINE ) injection 10 mg 04-06 00:53: 13 Yes 10mg 10 mg, Intravenou s, Q4HPRN, Starting Mon04/05/20 at 195, Until Discontinu ed, Routine, Hypertensi on, sbp > 160 or dbp > 100 [facility] NaCl 0.9% (NS) IV infusion 1,000 mL 04-06 00:45: 00 04-06 00:56 :00 No 1000mL at 999 mL/hr, Intravenou s, ONCE, 1 dose, Mon04/05/20 at 1945, Routine [facility] morpHINE injection 2 mg 04-06 00:35: 04 Yes 2mg 2 mg, Slow IV Push, Q4HPRN, Starting Mon04/05/20 at 193, Until Discontinu ed, Routine, Pain (scale 7-10) [facility] traMADol (ULTRAM) tablet 50 mg 04-06 00:34: 51 04-08 00:33 :51 No 50mg 50 mg, Oral, Q8HPRN, Starting Mon04/05/20 at 1934, Until Mon04/07/20 at 193, Routine, Pain (scale 4-6) [facility] acetaminoph en (TYLENOL) tablet 650 mg 04-06 00:34: 48 Yes 650mg 650 mg, Oral, Q6HPRN, Starting [place] 04/05/20 at 193, Until Discontinu ed, Routine, Pain (scale 1-3) [facility] proMETHazin e (PHENERGAN) 25 mg in NaCl 0.9% (NS) 50 mL piggyback 04-06 00:23: 32 Yes 25mg 25 mg, IV Piggyback, Q6HPRN, Starting [place] 04/05/20 at 192, Until Discontinu ed, 50 mL [facility] ondansetron (ZOFRAN (PF)) injection 4 mg 04-06 00:23: 24 Yes 4mg 4 mg, Slow IV Push, Q6HPRN, Starting [place] 04/05/20 at 1922, Until Discontinu ed, Routine, Nausea and Vomiting (N/V) [facility] metoclopram curtis HCl (REGLAN) injection 10 mg 04-06 00:15: 00 04-05 23:14 :00 No 10mg 10 mg, Slow IV Push, ONCE, 1 dose, [place] 04/05/20 at 1915, PINEDA [facility] iohexol (OMNIPAQUE 350 BULK-150 mL) injection 120 mL 04-05 23:42: 00 04-05 23:42 :00 No 120mL 120 mL, Intravenou s, ONCE, 1 dose, [place] 04/05/20 at 1845, Routine [facility] ketorolac (TORADOL) injection 30 mg 04-05 23:15: 00 04-05 22:14 :00 No 30mg 30 mg, Slow IV Push, ONCE, 1 dose, [place] 04/05/20 at 1815, Routine
[place] tribunal member approving Restricted medication : EVELIN GUERIN [facility] proMETHazin e (PHENERGAN) 25 mg in NaCl 0.9% (NS) 50 mL piggyback 04-05 23:15: 00 04-05 22:13 :00 No 25mg 25 mg, IV Piggyback, ONCE, 1 dose, Mon04/05/20 at 1815, 50 mL [facility] lipase-prot ease-amylas e 12,000-38,0 00 -60,000 unit capsule 03-13 00:00: 00 Yes [id number] 1{capsu le} Take 1 capsule by mouth 3 (three) times daily with meals. [facility] traMADol 100 mg 24 hr tablet 03-13 00:00: 00 04-07 00:00 :00 No [id number] 100mg Take 1 tablet by mouth once daily as needed for Pain. [facility] pantoprazol e (PROTONIX) EC tablet 40 mg 03-07 01:00: 00 Yes 40mg 40 mg, Oral, BID, First dose on Mon03/06/20 at 2000, Until Discontinu ed, [facility] ([facility] 20 mg capsule 03-06 22:29: 53 Yes 20mg Take 20 mg by mouth daily. [facility] busPIRone 10 mg tablet 03-06 22:29: 53 Yes 10mg Take 10 mg by mouth 2 (two) times daily. [facility] metoprolol succinate XL 25 mg 24 hr tablet 03-06 22:29: 53 Yes 25mg Take 25 mg by mouth daily. [facility] LORazepam (ATIVAN) injection 03-06 16:30: 00 03-06 16:30 :00 No Slow IV Push, PRN, Starting Mon03/06/20 at 1130, Until Discontinu ed, Routine [facility] midazolam (VERSED) injection 03-06 16:05: 00 03-06 16:20 :00 No IV Push, PRN, Starting Mon03/06/20 at 1105, Until Discontinu ed, Routine [facility] FENTanyl PF (SUBLIMAZE (PF)) injection 03-06 15:54: 00 03-06 16:45 :00 No Slow IV Push, PRN, Starting Mon03/06/20 at 1054, Until Discontinu ed, Routine [facility] enoxaparin (LOVENOX) injection 40 mg 03-06 14:00: 00 Yes 40mg 40 mg, Subcutaneo us, DAILY, First dose on Mon03/06/20 at 0900, Until Discontinu ed, Routine [facility] hydralAZINE (APRESOLINE ) injection 5 mg 03-06 02:10: 23 03-06 17:47 :14 No 5mg 5 mg, Intravenou s, Q6HPRN, Starting Mon03/05/20 at 2110, Until Mon03/06/20 at 1247, Routine, Hypertensi on, For SBP greater than 180 or DBP greater than 110 [facility] LORazepam (ATIVAN) injection 0.5 mg 03-06 00:45: 00 03-06 00:14 :00 No .5mg 0.5 mg, Slow IV Push, ONCE, 1 dose, Mon03/05/20 at 1945, Routine [facility] sennosides 8.6 mg tablet 03-06 00:00: 00 Yes [id number] 8.6mg Take 1 tablet by mouth daily. [facility] pantoprazol e 40 mg EC tablet 03-06 00:00: 00 Yes [id number] 40mg Take 1 tablet by mouth 2 (two) times daily. [facility] nicotine 14 mg/24 hr patch 03-06 00:00: 00 Yes [id number] 1{patch } Apply 1 Patch to area(s) daily. [facility] hydrOXYzine 10 mg tablet 03-06 00:00: 00 Yes [id number] 10mg Take 1 tablet by mouth every 6 (six) hours as needed for Anxiety. [facility] HYDROcodone -acetaminop hen 10-325 mg tablet 03-06 00:00: 00 04-07 00:00 :00 No [id number] 1{tbl} Take 1 tablet by mouth every 8 (eight) hours as needed for Pain (scale 7-10). [facility] nicotine (NICODERM) 14 mg/24 hr patch 1 Patch 03-05 03:15: 00 Yes 1{patch } 1 Patch, Topical, Administer over 24 Hours, Q24H, First dose on Mon03/04/20 at 2215, Until Discontinu ed, Routine [facility] magnesium sulfate in water 2 gram/50 mL (4 %) infusion 2 g 03-05 01:30: 00 03-05 02:13 :00 No 2g 2 g, IV Piggyback, ONCE, 1 dose, Mon03/04/20 at 2030, Routine [facility] lactated ringers IV infusion 1,000 mL 03-05 00:45: 00 03-06 17:14 :54 No 1000mL at 100 mL/hr, 1,000 mL, IV Infusion, CONTINUOUS , Starting Mon03/04/20 at 1945, Until Mon03/06/20 at 1214, Routine [facility] KCL (KLOR-CON M20) tablet 20 mEq 03-05 00:45: 00 03-05 00:34 :00 No 20meq 20 mEq, Oral, ONCE, 1 dose, Mon03/04/20 at 1945, Routine [facility] peg-electro lyte soln (GOLYTELY) 236-22.74-6 .74 -5.86 gram solution 4,000 mL 03-05 00:30: 00 03-05 00:34 :00 No 4000mL 4,000 mL, Oral, ONCE, 1 dose, Mon03/04/20 at 1930, Routine [facility] magnesium oxide (MAG-OX 400) tablet 400 mg 03-04 23:45: 00 Yes 400mg 400 mg, Oral, BID, First dose on Mon03/04/20 at 1845, Until Discontinu ed, Routine [facility] metoprolol succinate XL (TOPROL XL) tablet 25 mg 03-04 23:30: 00 Yes 25mg 25 mg, Oral, DAILY, First dose on Mon03/04/20 at 1830, Until Discontinu ed, Routine [facility] FLUoxetine (PROZAC) capsule 20 mg 03-04 23:30: 00 Yes 20mg 20 mg, Oral, DAILY, First dose on Mon03/04/20 at 1830, Until Discontinu ed, [facility]PAR[facility] 10 mg 03-04 23:30: 00 Yes 10mg 10 mg, Oral, BID, First dose on Mon03/04/20 at 1830, Until Discontinu ed, Routine [facility] docusate (COLACE) capsule 100 mg 03-04 23:30: 00 Yes 100mg 100 mg, Oral, BID, First dose on Mon03/04/20 at 1830, Until Discontinu ed, [facility] sennosides (SENOKOT) tablet 8.6 mg 03-04 23:30: 00 Yes 8.6mg 8.6 mg, Oral, BID, First dose on Mon03/04/20 at 1830, Until Discontinu ed, Routine [facility] LORazepam (ATIVAN) injection 0.5 mg 03-04 23:16: 58 03-05 23:18 :52 No .5mg 0.5 mg, Slow IV Push, BIDPRN, Starting Mon03/04/20 at 1816, Until Ne 03/05/20 at 1818, Routine, Anxiety [facility] lactated ringers IV infusion 1,000 mL 03-04 15:30: 00 03-04 23:16 :02 No 1000mL at 100 mL/hr, 1,000 mL, IV Infusion, CONTINUOUS , Starting Mon03/04/20 at 1030, Until Mon03/04/20 at 1816, Routine, PACU [facility] ondansetron (ZOFRAN (PF)) injection 4 mg 03-04 15:15: 19 03-04 15:31 :00 No 4mg 4 mg, Slow IV Push, PRN, 1 dose, Starting Mon03/04/20 at 1015, Until Discontinu ed, Routine, Nausea and Vomiting (N/V), PACU [facility] D5W 0.9% NaCl (NS) IV infusion 1,000 mL 03-03 23:00: 00 03-04 23:41 :28 No 1000mL at 150 mL/hr, 1,000 mL, IV Infusion, CONTINUOUS , Starting Mon03/03/20 at 1800, Until Mon03/04/20 at 1841, Routine [facility] iohexol (OMNIPAQUE 350 BULK-150 mL) injection 120 mL 03-03 22:45: 00 03-03 22:45 :00 No 120mL 120 mL, Intravenou s, ONCE, 1 dose, Mon03/03/20 at 1745, Routine [facility] morpHINE injection 4 mg 03-03 21:59: 08 Yes 4mg 4 mg, Slow IV Push, Q4HPRN, Starting Mon03/03/20 at 1659, Until Discontinu ed, Routine, Pain (scale 7-10) [facility] morpHINE injection 2 mg 03-03 19:30: 00 03-03 21:59 :24 No 2mg 2 mg, Slow IV Push, Q4HPRN, Starting Mon03/03/20 at 1430, Until Mon03/03/20 at 1659, Routine, Pain (scale 7-10) [facility] morpHINE injection 2 mg 03-03 14:47: 44 03-03 19:16 :00 No 2mg 2 mg, Slow IV Push, Q6HPRN, Starting Mon03/03/20 at 0947, Until Mon03/03/20 at 1416, Routine, Pain (scale 7-10) [facility] zolpidem (AMBIEN) tablet 5 mg 03-03 04:13: 06 Yes 5mg 5 mg, Oral, QHSPRN, Starting Mon03/02/20 at 2313, Until Discontinu ed, Routine, Insomnia [facility] pantoprazol e (PROTONIX) 40 mg in NaCl 0.9% (NS) 100 mL MINI-BAG 03-03 01:00: 00 03-06 17:48 :17 No 40mg 40 mg, IV Piggyback, Q12H, First dose on Mon03/02/20 at 2000, Until Discontinu ed, 100 mL [facility] proMETHazin e (PHENERGAN) 25 mg in NaCl 0.9% (NS) 50 mL IV piggyback 03-02 22:40: 41 Yes 25mg 25 mg, IV Piggyback, Q4HPRN, Starting Mon03/02/20 at 1740, Until Discontinu ed, Routine, Nausea and Vomiting (N/V) [facility] D5W 0.45% NaCl (1/2NS) 1 L + KCL 20 mEq 03-02 21:30: 00 03-03 21:52 :49 No IV Infusion, at 150 mL/hr, CONTINUOUS , Starting Mon03/02/20 at 1630, Until Mon03/03/20 at 1652, Routine [facility] metoclopram crutis HCl (REGLAN) injection 10 mg 03-02 18:52: 00 03-02 22:40 :51 No 10mg 10 mg, Slow IV Push, Q6HPRN, Starting Mon03/02/20 at 1352, Until Mon03/02/20 at 1740, PINEDA, Nausea and Vomiting (N/V) [facility] ondansetron (ZOFRAN (PF)) injection 4 mg 03-02 18:51: 45 Yes 4mg 4 mg, Slow IV Push, Q6HPRN, Starting Mon03/02/20 at 1351, Until Discontinu ed, PINEDA, Nausea and Vomiting (N/V) [facility] D5W 0.45% NaCl (1/2NS) 1 L + KCL 20 mEq 03-02 18:45: 00 03-02 21:27 :01 No IV Infusion, at 100 mL/hr, CONTINUOUS , Starting Mon03/02/20 at 1345, Until Mon03/02/20 at 1627, Routine [facility] LORazepam (ATIVAN) injection 0.5 mg 03-02 18:15: 00 03-02 17:46 :00 No .5mg 0.5 mg, Slow IV Push, ONCE, 1 dose, Mon03/02/20 at 1315, STAT [facility] NaCl 0.9% (NS) bolus infusion 1,000 mL 03-02 18:00: 00 03-02 17:47 :00 No 1000mL at 999 mL/hr, 1,000 mL, IV Infusion, ONCE, 1 dose, Mon03/02/20 at 1300, STAT [facility] traMADol (ULTRAM) tablet 50 mg 03-02 17:41: 01 03-04 17:40 :01 No 50mg 50 mg, Oral, Q8HPRN, Starting Mon03/02/20 at 1241, Until Mon03/04/20 at 1240, Routine, Pain (scale 4-6) [facility] acetaminoph en (TYLENOL) tablet 650 mg 03-02 17:40: 59 Yes 650mg 650 mg, Oral, Q6HPRN, Starting Mon03/02/20 at 1240, Until Discontinu ed, Routine, Pain (scale 1-3) [facility] proMETHazin e (PHENERGAN) 12.5 mg in NaCl 0.9% (NS) 50 mL piggyback 03-02 16:30: 00 03-02 15:36 :00 No 12.5mg 12.5 mg, IV Piggyback, ONCE, 1 dose, Mon03/02/20 at 1130, 50 mL [facility] pantoprazol e (PROTONIX) 40 mg in NaCl 0.9% (NS) 100 mL MINI-BAG 03-02 15:45: 00 03-02 14:55 :00 No 40mg 40 mg, IV Piggyback, ONCE, 1 dose, Mon03/02/20 at 1045, 100 mL [facility] metoclopram curtis HCl (REGLAN) injection 10 mg 03-02 15:45: 00 03-02 14:40 :00 No 10mg 10 mg, Slow IV Push, ONCE, 1 dose, Mon03/02/20 at 1045, PINEDA [facility] NaCl 0.9% (NS) bolus infusion 1,000 mL 03-02 15:30: 00 03-02 14:17 :00 No 1000mL at 999 mL/hr, 1,000 mL, IV Piggyback, ONCE, 1 dose, 03/02/20 at 1030, STAT [facility] ondansetron (ZOFRAN (PF)) injection 4 mg 03-02 15:30: 00 03-02 14:17 :00 No 4mg 4 mg, Slow IV Push, ONCE, 1 dose, 03/02/20 at 1030, PINEDA [facility] No known medications No Un [facility] Vital Signs Vital Name Observation Time Observation Value Comments S ource Systolic blood pressure 2024-05-05 22:40:00 174 mm[Hg] Dr. Romero notifed of BP, okay to discharge [facility] Diastolic blood pressure 2024-05-05 22:40:00 98 mm[Hg] Dr. Romero notifed of BP, okay to discharge [facility] Heart rate 2024-05-05 22:40:00 59 /min [facility] Body temperature 2024-05-05 22:40:00 36.5 Kesha [facility] Respiratory rate 2024-05-05 22:40:00 6 /min [facility] Oxygen saturation in Arterial blood by Pulse oximetry 2024-05-05 22:40:00 97 /min [facility] Body height 2024-05-05 18:38:00 162.6 cm [facility] Body weight 2024-05-05 18:38:00 72.576 kg [facility] BMI 2024-05-05 18:38:00 27.46 kg/m2 [facility] Systolic blood pressure 2024-01-23 21:34:00 131 mm[Hg] [facility] Diastolic blood pressure 2024-01-23 21:34:00 86 mm[Hg] [facility] Heart rate 2024-01-23 21:34:00 86 /min [facility] Body temperature 2024-01-23 21:34:00 36.33 Kesha [facility] Respiratory rate 2024-01-23 21:34:00 17 /min [facility] Oxygen saturation in Arterial blood by Pulse oximetry 2024-01-23 21:34:00 92 /min [facility] Body weight 2024-01-22 08:25:00 91.989 kg [facility] BMI 2024-01-22 08:25:00 34.81 kg/m2 [facility] Body height 2024-01-21 04:06:00 162.6 cm [facility] Heart rate 2023-11-05 17:44:00 82 /min [facility] Oxygen saturation in Arterial blood by Pulse oximetry 2023-11-05 17:44:00 99 /min [facility] Systolic blood pressure 2023-11-05 17:43:00 139 mm[Hg] [facility] Diastolic blood pressure 2023-11-05 17:43:00 84 mm[Hg] [facility] Body temperature 2023-11-05 17:43:00 36.33 Kesha [facility] Body weight 2023-11-05 10:19:00 91.491 kg [facility] BMI 2023-11-05 10:19:00 35.73 kg/m2 [facility] Respiratory rate 2023-11-04 14:35:00 25 /min [facility] Body height 2023-11-04 08:00:00 160 cm [facility] Systolic blood pressure 2023-09-15 15:28:00 167 mm[Hg] [facility] Diastolic blood pressure 2023-09-15 15:28:00 88 mm[Hg] [facility] Heart rate 2023-09-15 15:28:00 91 /min [facility] Respiratory rate 2023-09-15 15:28:00 11 /min [facility] Oxygen saturation in Arterial blood by Pulse oximetry 2023-09-15 15:28:00 98 /min [facility] Body temperature 2023-09-15 14:06:00 37 Kesha [facility] Body height 2023-09-15 14:06:00 162.6 cm [facility] Body weight 2023-09-15 14:06:00 81.647 kg [facility] BMI 2023-09-15 14:06:00 30.90 kg/m2 [facility] Systolic blood pressure 2021-04-30 07:00:00 126 mm[Hg] [facility] Diastolic blood pressure 2021-04-30 07:00:00 78 mm[Hg] [facility] Heart rate 2021-04-30 07:00:00 81 /min [facility] Respiratory rate 2021-04-30 07:00:00 20 /min [facility] Oxygen saturation in Arterial blood by Pulse oximetry 2021-04-30 07:00:00 96 /min [facility] Body temperature 2021-04-30 04:54:00 36.72 Kesha [facility] Body height 2021-04-30 04:54:00 160 cm [facility] Body weight 2021-04-30 04:54:00 56.7 kg [facility] BMI 2021-04-30 04:54:00 22.14 kg/m2 [facility] Systolic blood pressure 2021-04-20 16:36:00 126 mm[Hg] [facility] Diastolic blood pressure 2021-04-20 16:36:00 95 mm[Hg] [facility] Heart rate 2021-04-20 16:36:00 68 /min [facility] Body temperature 2021-04-20 16:36:00 36.94 Kesha [facility] Respiratory rate 2021-04-20 16:36:00 18 /min [facility] Oxygen saturation in Arterial blood by Pulse oximetry 2021-04-20 16:36:00 97 /min [facility] Body weight 2021-04-19 09:13:00 65.431 kg [facility] BMI 2021-04-19 09:13:00 25.55 kg/m2 [facility] Body height 2021-04-18 20:39:00 160 cm [facility] Systolic blood pressure 2021-03-10 12:16:00 139 mm[Hg] [facility] Diastolic blood pressure 2021-03-10 12:16:00 94 mm[Hg] [facility] Heart rate 2021-03-10 12:16:00 70 /min [facility] Body temperature 2021-03-10 12:16:00 36.72 Kesha [facility] Respiratory rate 2021-03-10 12:16:00 18 /min [facility] Oxygen saturation in Arterial blood by Pulse oximetry 2021-03-10 12:16:00 95 /min [facility] Body height 2021-03-07 19:45:00 160 cm [facility] Body weight 2021-03-07 19:45:00 65.772 kg [facility] BMI 2021-03-07 19:45:00 25.69 kg/m2 [facility] Systolic blood pressure 2021-01-23 13:23:00 141 mm[Hg] [facility] Diastolic blood pressure 2021-01-23 13:23:00 80 mm[Hg] [facility] Heart rate 2021-01-23 13:23:00 95 /min [facility] Body temperature 2021-01-23 13:23:00 36.28 Kesha [facility] Respiratory rate 2021-01-23 13:23:00 18 /min [facility] Oxygen saturation in Arterial blood by Pulse oximetry 2021-01-23 13:23:00 96 /min [facility] Body height 2021-01-23 03:00:00 160 cm [facility] Body weight 2021-01-23 03:00:00 65.908 kg [facility] BMI 2021-01-23 03:00:00 25.74 kg/m2 [facility] Systolic blood pressure 2020-11-02 17:18:00 144 mm[Hg] [facility] Diastolic blood pressure 2020-11-02 17:18:00 97 mm[Hg] [facility] Heart rate 2020-11-02 17:18:00 93 /min [facility] Body temperature 2020-11-02 17:18:00 37.11 Kesha [facility] Respiratory rate 2020-11-02 17:18:00 20 /min [facility] Oxygen saturation in Arterial blood by Pulse oximetry 2020-11-02 17:18:00 96 /min [facility] Body weight 2020-11-02 09:29:00 65.913 kg [facility] BMI 2020-11-02 09:29:00 25.74 kg/m2 [facility] Body height 2020-10-28 22:57:00 160 cm [facility] Systolic blood pressure 2020-09-30 17:45:00 143 mm[Hg] [facility] Diastolic blood pressure 2020-09-30 17:45:00 85 mm[Hg] [facility] Heart rate 2020-09-30 17:45:00 70 /min [facility] Body temperature 2020-09-30 17:45:00 36.44 Kesha [facility] Respiratory rate 2020-09-30 17:45:00 18 /min [facility] Oxygen saturation in Arterial blood by Pulse oximetry 2020-09-30 17:45:00 100 /min [facility] Body weight 2020-09-30 10:10:00 68.992 kg [facility] BMI 2020-09-30 10:10:00 26.94 kg/m2 [facility] Body height 2020-09-28 22:42:00 160 cm [facility] Systolic blood pressure 2020-08-05 16:00:00 132 mm[Hg] [facility] Diastolic blood pressure 2020-08-05 16:00:00 78 mm[Hg] [facility] Heart rate 2020-08-05 16:00:00 57 /min [facility] Respiratory rate 2020-08-05 16:00:00 18 /min [facility] Oxygen saturation in Arterial blood by Pulse oximetry 2020-08-05 16:00:00 97 /min [facility] Body temperature 2020-08-05 15:25:00 37.94 Kesha [facility] Body weight 2020-08-05 12:00:00 65.772 kg [facility] BMI 2020-08-05 12:00:00 25.69 kg/m2 [facility] Systolic blood pressure 2020-08-03 19:00:00 141 mm[Hg] [facility] Diastolic blood pressure 2020-08-03 19:00:00 83 mm[Hg] [facility] Heart rate 2020-08-03 19:00:00 77 /min [facility] Body temperature 2020-08-03 19:00:00 37.17 Kesha [facility] Respiratory rate 2020-08-03 19:00:00 23 /min [facility] Oxygen saturation in Arterial blood by Pulse oximetry 2020-08-03 19:00:00 96 /min [facility] Body weight 2020-08-03 14:04:00 65.772 kg [facility] BMI 2020-08-03 14:04:00 25.69 kg/m2 [facility] Systolic blood pressure 2020-05-22 16:30:00 129 mm[Hg] [facility] Diastolic blood pressure 2020-05-22 16:30:00 93 mm[Hg] [facility] Heart rate 2020-05-22 16:30:00 74 /min [facility] Body temperature 2020-05-22 16:30:00 36.89 Kesha [facility] Respiratory rate 2020-05-22 16:30:00 18 /min [facility] Oxygen saturation in Arterial blood by Pulse oximetry 2020-05-22 16:30:00 99 /min [facility] Body weight 2020-05-22 09:09:00 63.05 kg [facility] BMI 2020-05-22 09:09:00 24.62 kg/m2 [facility] Systolic blood pressure 2020-05-20 16:01:00 153 mm[Hg] [facility] Diastolic blood pressure 2020-05-20 16:01:00 94 mm[Hg] [facility] Heart rate 2020-05-20 16:01:00 86 /min [facility] Body temperature 2020-05-20 16:01:00 37 Kesha [facility] Respiratory rate 2020-05-20 16:01:00 18 /min [facility] Oxygen saturation in Arterial blood by Pulse oximetry 2020-05-20 16:01:00 98 /min [facility] Body weight 2020-05-20 09:00:00 64.456 kg [facility] BMI 2020-05-20 09:00:00 25.17 kg/m2 [facility] Body height 2020-05-16 07:01:00 160 cm [facility] Systolic blood pressure 2020-04-07 15:39:00 146 mm[Hg] [facility] Diastolic blood pressure 2020-04-07 15:39:00 78 mm[Hg] [facility] Heart rate 2020-04-07 15:39:00 68 /min [facility] Body temperature 2020-04-07 15:39:00 37.17 Kesha [facility] Respiratory rate 2020-04-07 15:39:00 18 /min [facility] Oxygen saturation in Arterial blood by Pulse oximetry 2020-04-07 15:39:00 98 /min [facility] Body weight 2020-04-07 09:01:00 60.963 kg [facility] BMI 2020-04-07 09:01:00 21.69 kg/m2 [facility] Body height 2020-04-05 22:08:00 167.6 cm [facility] Systolic blood pressure 2020-03-06 17:33:00 146 mm[Hg] [facility] Diastolic blood pressure 2020-03-06 17:33:00 96 mm[Hg] [facility] Heart rate 2020-03-06 17:33:00 73 /min [facility] Body temperature 2020-03-06 17:33:00 36.5 Kesha [facility] Respiratory rate 2020-03-06 17:33:00 18 /min [facility] Oxygen saturation in Arterial blood by Pulse oximetry 2020-03-06 17:33:00 99 /min [facility] Body height 2020-03-06 14:20:00 160 cm [facility] Body weight 2020-03-06 14:20:00 62.596 kg [facility] BMI 2020-03-06 14:20:00 24.45 kg/m2 [facility] Procedures Procedure Date / Time Performed Performing Clinician Source CT ABDOMEN PELVIS W CONTRAST 2024-05-05 20:43:00 Jimbo Romero [facility] URINALYSIS 2024-05-05 19:38:00 Jimbo Romero [facility] LIPASE 2024-05-05 19:17:00 Jimbo Romero [facility] TROPONIN I 2024-05-05 19:17:00 Jimbo Romero [facility] COMP. METABOLIC PANEL ([id number]) 2024-05-05 19:17:00 Jimbo Romero [facility] CBC WITH DIFF 2024-05-05 19:17:00 Jimbo Romero [facility] HB ECG ROUTINE & RHYTHM STRIP 2024-05-05 18:43:44 Jimbo Romero [facility] PHOSPHORUS 2024-01-23 09:43:00 Justin Licea [facility] MAGNESIUM 2024-01-23 09:43:00 Justin Licea [facility] BASIC METABOLIC PANEL (NA, K , CL, CO2, GLUCOSE, BUN, CREATININE, CA) 2024-01-23 09:43:00 Justin Licea [facility] CBC WITH DIFF 2024-01-23 09:43:00 Justin Licea [facility] PHOSPHORUS 2024-01-22 08:39:[address] [facility] MAGNESIUM 2024-01-22 08:39:[address] [facility] BASIC METABOLIC PANEL (NA, K , CL, CO2, GLUCOSE, BUN, CREATININE, CA) 2024-01-22 08:39:[address] [facility] CBC WITH DIFF 2024-01-22 08:39:[address] [facility] PHOSPHORUS 2024-01-21 11:31:[address] [facility] MAGNESIUM 2024-01-21 11:31:[address] [facility] BASIC METABOLIC PANEL (NA, K , CL, CO2, GLUCOSE, BUN, CREATININE, CA) 2024-01-21 11:31:[address] [facility] CBC WITH DIFF 2024-01-21 09:10:[address] [facility] CT ABDOMEN PELVIS W CONTRAST 2024-01-20 22:34:34 Sandro [facility] CT MAXILLOFACIAL/MANDIBLE W CONTRAST 2024-01-20 22:34:34 Cooper Mcneil [facility] ASSIGNMENT OF BENEFITS 2024-01-20 21:55:58 Doctor Unassigned, [place] [facility] LIPASE 2024-01-20 21:54:00 [place] [facility] [place] [facility] COMP. METABOLIC PANEL ([id number]) 2024-01-20 21:54:00 Jeanna Jo [facility] ETHANOL 2024-01-20 21:54:00 [place] [facility] WITH DIFF 2024-01-20 21:54:00 [facility] URINALYSIS 2024-01-20 21:54:00 [facility] POCT TEST 2024-01-20 21:54:00 [facility] LIPASE 2023-11-05 09:27:00 Isabell Lizarraga [facility] MAGNESIUM 2023-11-05 09:27:00 Rubia Saleem [facility] HEPATIC FUNCTION PANEL (8007 6) (ALB,T.PRO,BILI T,BU/BC,ALT,AST,ALK PHOS) 2023-11-05 09:27:00 Isabell Lizarraga [facility] BASIC METABOLIC PANEL (NA, K , CL, CO2, GLUCOSE, BUN, CREATININE, CA) 2023-11-05 09:27:00 Rubia Saleem [facility] CBC WITH DIFF 2023-11-05 09:27:00 Rubia Saleem [facility] LIPASE 2023-11-04 17:01:00 Rubia Saleem [facility] MAGNESIUM 2023-11-04 17:01:00 Isabell Lizarraga [facility] HEPATIC FUNCTION PANEL (8007 6) (ALB,T.PRO,BILI T,BU/BC,ALT,AST,ALK PHOS) 2023-11-04 17:01:00 Isabell Lizarraga [facility] COMP. METABOLIC PANEL ([id number]) 2023-11-04 17:01:00 Rubia Saleem [facility] LIPID PANEL ([id number])(TOTAL CHOLESTEROL, TRIGLYCERIDES, HDL) 2023-11-04 17:01:00 Rubia Saleem [facility] PHOSPHORUS 2023-11-04 04:54:00 Rubia Saleem [facility] LIPASE 2023-11-04 04:54:00 Benedicto Valentin [facility] MAGNESIUM 2023-11-04 04:54:00 Isabell Lizarraga [facility] TROPONIN I 2023-11-04 04:54:00 Benedicto Valentin [facility] HEPATIC FUNCTION PANEL (8007 6) (ALB,T.PRO,BILI T,BU/BC,ALT,AST,ALK PHOS) 2023-11-04 04:54:00 Rubia Saleem [facility] COMP. METABOLIC PANEL ([id number]) 2023-11-04 04:54:00 Benedicto Valentin [facility] CBC WITH DIFF 2023-11-04 04:54:00 Benedicto Valentin [facility] EKG-12 LEAD 2023-09-15 15:41:31 Ninfa Pearl [facility] XR CHEST 1 VW 2023-09-15 14:25:46 Ninfa Pearl [facility] TROPONIN I 2023-09-15 14:22:00 Ninfa Pearl [facility] COMP. METABOLIC PANEL ([id number]) 2023-09-15 14:22:00 Ninfa Pearl [facility] CBC WITH DIFF 2023-09-15 14:22:00 Ninfa Pearl [facility] RAPID INFLUENZA A/B 2023-09-15 14:22:00 Ninfa Pearl [facility] N-TERMINAL PRO-BNP 2023-09-15 14:22:00 Ninfa Pearl [facility] COVID-19 (ID NOW RAPID TESTING) 14:22:00 Ninfa Pearl [facility] CONSENT/REFUSAL FOR DIAGNOSI S AND TREATMENT 2023-09-15 14:02:33 Doctor Unassigned, [place] [facility] CT ABDOMEN PELVIS W CONTRAST 2021-04-30 06:57:51 Ruth Watts [facility] XR CHEST 1 VW 2021-04-30 05:13:21 Ruth Watts [facility] LIPASE 2021-04-30 05:00:00 Ruth Watts [facility] TROPONIN I 2021-04-30 05:00:00 Ruth Watts [facility] COMP. METABOLIC PANEL ([id number]) 2021-04-30 05:00:00 Ruth Watts [facility] CBC WITH DIFF 2021-04-30 05:00:00 Ruth Watts [facility] COVID-19 (ID NOW RAPID TESTING) 05:00:00 Ruth Watts [facility] LIPASE 2021-04-20 08:45:00 Geronimo De Los Santos [facility] MAGNESIUM 2021-04-20 08:45:00 Geronimo De Los Santos [facility] BASIC METABOLIC PANEL (NA, K , CL, CO2, GLUCOSE, BUN, CREATININE, CA) 2021-04-20 08:45:00 Geronimo De Los Santos [facility] CBC WITH DIFF 2021-04-20 08:45:00 Geronimo De Los Santos [facility] FECAL LEUKOCYTES 2021-04-19 09:35:00 Judith Delatorre [facility] MAGNESIUM 2021-04-19 08:59:00 Devin Mclaughlin [facility] BASIC METABOLIC PANEL (NA, K , CL, CO2, GLUCOSE, BUN, CREATININE, CA) 2021-04-19 08:59:00 Devin Mclaughlin [facility] CBC WITH DIFF 2021-04-19 08:59:00 Devin Mclaughlin [facility] PHOSPHORUS 2021-04-18 21:55:00 Devin Mclaughlin [facility] LACTIC ACID WHOLE BLOOD 2021-04-18 21:55:00 Judith Delatorre [facility] PROCALCITONIN 2021-04-18 21:55:00 Judith Delatorre [facility] BLOOD CULTURE SCREEN 2021-04-18 17:37:00 Rehan Collins [facility] LACTIC ACID WHOLE BLOOD 2021-04-18 17:34:00 Rehan Collins [facility] BLOOD CULTURE SCREEN 2021-04-18 17:17:00 Rehan Collins [facility] CT ABDOMEN PELVIS W CONTRAST 2021-04-18 17:01:30 Rehan Collins [facility] POCT TEST 2021-04-18 16:45:00 Rehan Collins [facility] URINE DRUG (IMMUNOASSAY) - COMPREHENSIVE DRUG SCREEN 2021-04-18 16:39:00 Rehan Collins [facility] URINALYSIS 2021-04-18 16:39:00 Rehan Collins [facility] URINE CULTURE 2021-04-18 16:39:00 Rehan Collins [facility] COVID-19 (ID NOW RAPID TESTING) 15:59:00 Rehan Collins [facility] LAB ONLY COVID INTERPRETATION 2021-04-18 15:59:00 Rehan Collins [facility] LIPASE 2021-04-18 15:55:00 Rehan Collins [facility] COMP. METABOLIC PANEL ([id number]) 2021-04-18 15:55:00 Rehan Collins [facility] ETHANOL 2021-04-18 15:55:00 Rehan Collins [facility] CBC WITH DIFF 2021-04-18 15:55:00 Rehan Collins [facility] CBC WITH DIFF 2021-03-10 09:07:00 Maddy Coburn [facility] LACTIC ACID WHOLE BLOOD 2021-03-08 09:53:00 Isabell Lizarraga [facility] BASIC METABOLIC PANEL (NA, K , CL, CO2, GLUCOSE, BUN, CREATININE, CA) 2021-03-08 09:52:00 Maddy Coburn [facility] CBC WITH DIFF 2021-03-08 09:52:00 Maddy Coburn [facility] LACTIC ACID WHOLE BLOOD 2021-03-07 22:42:00 Cooper Mcneil [facility] TEST, URINE 2021-03-07 18:03:00 Maddy Coburn [facility] URINE DRUG (IMMUNOASSAY) - 4 ER PANEL 2021-03-07 18:03:00 Cooper Mcneil [facility] BLOOD CULTURE SCREEN 2021-03-07 17:50:00 [facility] 2021-03-07 17:33:00 [facility] 2021-03-07 17:30:[address] [facility] [address] [facility] PELVIS W CONTRAST 2021-03-07 17:25:17 [facility]OUTINE & RHYTHM STRIP 2021-03-07 16:43:55 [facility] (ID NOW RAPID TESTING) 16:33:00 [facility] 2021-03-07 16:30:00 Tarun [facility] HEPATIC FUNCTION PANEL (8007 6) (ALB,T.PRO,BILI T,BU/BC,ALT,AST,ALK PHOS) 2021-03-07 16:30:00 Tarun [facility] BASIC METABOLIC PANEL (NA, K , CL, CO2, GLUCOSE, BUN, CREATININE, CA) 2021-03-07 16:30:00 [facility] 2021-03-07 16:30:00 Tarun [facility] CBC WITH DIFF 2021-03-07 16:30:00 Tarun [facility] PROTHROMBIN TIME / INR 2021-03-07 16:30:00 Tarun [facility] ACTIVATED PARTIAL THRMPLAS HUMBERTO 2021-02-12 5 16:30:00 Tarun [facility] TEST, URINE 2021-01-23 11:30:00 Beto [facility] MAGNESIUM 2021-01-23 10:53:00 Inez [facility] COMP. METABOLIC PANEL ([id number]) 2021-01-23 10:53:00 Beto [facility] ETHANOL 2021-01-23 10:53:00 Inez [facility] CBC WITH DIFF 2021-01-23 10:53:00 Beto [facility] GLYCOSYLATED HEMOGLOBIN (A1C) 2021-01-23 10:53:00 Von Chow [facility] US ABDOMEN LIMITED 2021-01-23 06:30:00 Shane Pérez [facility] HB ECG ROUTINE & RHYTHM STRIP 2021-01-22 23:53:07 Deejay Sabillon [facility] ADC / LCC - DRUG SCREEN TRIAGE 2021-01-11 2 23:35:00 Deejay Sabillon [facility] COVID-19 (ID NOW RAPID TESTING) 22:45:00 Deejay Sabillon [facility] CT ABDOMEN PELVIS W CONTRAST 2021-01-22 21:13:48 Deejay Sabillon [facility] URINALYSIS 2021-01-22 20:07:00 Deejay Sabillon [facility] LIPASE 2021-01-22 19:54:00 Deejay Sabillon [facility] COMP. METABOLIC PANEL ([id number]) 2021-01-22 19:54:00 Deejay Sabillon [facility] CBC WITHOUT DIFF 2021-01-22 19:54:00 Deejay Sabillon [facility] COMP. METABOLIC PANEL ([id number]) 2020-11-02 10:13:00 Juan F [facility] CBC WITH DIFF 2020-11-02 10:13:00 Juan F [facility] MAGNESIUM 2020-10-31 09:59:00 Rogel [facility] BASIC METABOLIC PANEL (NA, K , CL, CO2, GLUCOSE, BUN, CREATININE, CA) 2020-10-31 09:59:00 Juan F [facility] CBC WITH DIFF 2020-10-31 09:59:00 Juan F [facility] MAGNESIUM 2020-10-30 11:41:00 Juan F [facility] BASIC METABOLIC PANEL (NA, K , CL, CO2, GLUCOSE, BUN, CREATININE, CA) 2020-10-30 11:41:00 Juan F [facility] CBC WITH DIFF 2020-10-30 11:41:00 Juan F [facility] FECES CULTURE 2020-10-29 22:54:00 Devin Mclaughlin [facility] CLOSTRIDIUM DIFFICILE TOXIN 2020-10-29 22:54:00 Devin Mclaughlin [facility] FECAL PATHOGENS BY PCR 2020-10-29 22:54:00 Devin Mclaughlin [facility] CBC WITH DIFF 2020-10-29 13:43:00 Devin Mclaughlin [facility] PHOSPHORUS 2020-10-29 12:30:00 HardeepadrianaItalia dong [facility] MAGNESIUM 2020-10-29 12:30:00 Devin Mclaughlin [facility] BASIC METABOLIC PANEL (NA, K , CL, CO2, GLUCOSE, BUN, CREATININE, CA) 2020-10-29 12:30:00 Devin Mclaughlin [facility] COVID-19 (ID NOW RAPID TESTING) 19:49:00 Evelin Guerin [facility] LAB ONLY COVID INTERPRETATION 2020-10-28 19:49:00 Evelin Guerin [facility] URINALYSIS 2020-10-28 18:06:00 Evelin Guerin [facility] ADC / LCC - DRUG SCREEN TRIAGE 2020-10-13 6 18:06:00 Evelin Guerin [facility] CT ABDOMEN PELVIS W CONTRAST 2020-10-28 17:42:32 Evelin Guerin [facility] HB ECG ROUTINE & RHYTHM STRIP 2020-10-28 17:05:24 Evelin Guerin [facility] LIPASE 2020-10-28 16:54:00 Evelin Guerin [facility] TROPONIN I 2020-10-28 16:54:00 Evelin Guerin [facility] HEPATIC FUNCTION PANEL (8007 6) (ALB,T.PRO,BILI T,BU/BC,ALT,AST,ALK PHOS) 2020-10-28 16:54:00 Evelin Guerin [facility] BASIC METABOLIC PANEL (NA, K , CL, CO2, GLUCOSE, BUN, CREATININE, CA) 2020-10-28 16:54:00 Evelin Guerin [facility] ETHANOL 2020-10-28 16:54:00 Evelin Guerin [facility] CBC WITH DIFF 2020-10-28 16:54:00 Evelin Guerin [facility] HOSPITAL ADM - MISC 2020-10-28 06:01:00 Doctor Unassigned, [place] [facility] PHOSPHORUS 2020-09-30 10:31:00 Delio [facility] MAGNESIUM 2020-09-30 10:31:00 Delio [facility] COMP. METABOLIC PANEL ([id number]) 2020-09-30 10:31:00 Delio [facility] CBC WITH DIFF 2020-09-30 10:31:00 Delio [facility] BLOOD CULTURE SCREEN 2020-09-30 03:42:00 Delio [facility] BLOOD CULTURE SCREEN 2020-09-30 03:04:00 Delio [facility] PROCALCITONIN 2020-09-30 03:04:00 Delio [facility] CLOSTRIDIUM DIFFICILE TOXIN 2020-09-29 19:48:00 [facility] LIPASE 2020-09-29 10:32:00 Delio [facility] MAGNESIUM 2020-09-29 10:32:00 Delio [facility] BASIC METABOLIC PANEL (NA, K , CL, CO2, GLUCOSE, BUN, CREATININE, CA) 2020-09-29 10:32:00 Devin Mclaughlin [facility] SEDIMENTATION RATE 2020-09-29 10:32:00 Delio [facility] CBC WITH DIFF 2020-09-29 10:32:00 [facility] LACTIC ACID WHOLE BLOOD 2020-09-29 05:26:00 Tarun Cooper [facility] COVID-19 (ID NOW RAPID TESTING) 21:09:00 Tarun [facility] LACTIC ACID WHOLE BLOOD 2020-09-28 20:59:00 Tarun [facility] BLOOD CULTURE SCREEN 2020-09-28 20:58:00 Tarun [facility] BLOOD CULTURE WORKUP 2020-09-28 20:58:00 Tarun [facility] GRAM POSITIVE BLOOD PATHOGEN S DNA PROBE-AEROBIC 2020-09-28 20:58:00 Tarun [facility] URINALYSIS 2020-09-28 19:53:00 [facility] - [facility]UG SCREEN TRIAGE 2020-09-13 6 19:52:[address] [facility] [address] [facility] PELVIS W CONTRAST 2020-09-28 19:44:06 [facility] 2020-09-28 17:55:00 [facility], SERUM 2020-09-28 17:55:00 [facility] 2020-09-28 17:55:00 [facility] HEPATIC FUNCTION PANEL (8007 6) (ALB,T.PRO,BILI T,BU/BC,ALT,AST,ALK PHOS) 2020-09-28 17:55:00 Tarun [facility] BASIC METABOLIC PANEL (NA, K , CL, CO2, GLUCOSE, BUN, CREATININE, CA) 2020-09-28 17:55:00 Tarun [facility] ETHANOL 2020-09-28 17:55:00 [facility] WITH DIFF 2020-09-28 17:55:00 Tarun [facility] PROTHROMBIN TIME / INR 2020-09-28 17:55:00 Tarun [facility] ACTIVATED PARTIAL THRMPLAS HUMBERTO 2020-09-13 6 17:55:00 Tarun [facility] EMERGENCY DEPARTMENT DOCUMENTS 2020-09-13 6 06:01:00 Doctor Unassigned, [place] [facility] URINALYSIS 2020-08-05 16:45:[address] [facility] LIPASE 2020-08-05 15:45:[address] [facility] COMP. METABOLIC PANEL ([id number]) 2020-08-05 15:45:[address] [facility] LIPID PANEL ([id number])(TOTAL CHOLESTEROL, TRIGLYCERIDES, HDL) 2020-08-05 15:45:[address] [facility] CBC WITH DIFF 2020-08-05 15:45:[address] [facility] LACTIC ACID WHOLE BLOOD 2020-08-03 17:49:[address] [facility] URINALYSIS 2020-08-03 16:15:[address] [facility] CT ABDOMEN PELVIS W CONTRAST 2020-08-03 15:15:[address] [facility] COVID-19 (ID NOW RAPID TESTING) 14:12:[address] [facility] LIPASE 2020-08-03 14:11:[address] [facility] COMP. METABOLIC PANEL ([id number]) 2020-08-03 14:11:[address] [facility] LIPID PANEL ([id number])(TOTAL CHOLESTEROL, TRIGLYCERIDES, HDL) 2020-08-03 14:11:[address] [facility] CBC WITH DIFF 2020-08-03 14:11:[address] [facility] GLYCOSYLATED HEMOGLOBIN (A1C) 2020-08-03 14:11:[address] [facility] LACTIC ACID WHOLE BLOOD 2020-08-03 14:10:[address] [facility] PHOSPHORUS 2020-05-22 06:20:00 [facility] MAGNESIUM 2020-05-22 06:20:00 [facility] BASIC METABOLIC PANEL (NA, K , CL, CO2, GLUCOSE, BUN, CREATININE, CA) 2020-05-22 06:20:00 Linnea Mastersdev [facility] CBC WITH DIFFERENTIAL 2020-05-22 06:20:00 [facility] MAGNESIUM 2020-05-21 18:31:00 Judith Delatorre [facility] BASIC METABOLIC PANEL (NA, K , CL, CO2, GLUCOSE, BUN, CREATININE, CA) 2020-05-21 18:31:00 Linnea Mastersdev [facility] COVID-19 (ID NOW RAPID TESTING) 05:14:00 Judith Smith [facility] LIPASE 2020-05-21 03:22:00 Judith Smith [facility] MAGNESIUM 2020-05-21 03:22:00 Ninfa Pearl [facility] COMP. METABOLIC PANEL ([id number]) 2020-05-21 03:22:00 Judith Smith [facility] CBC WITH DIFFERENTIAL 2020-05-21 03:22:00 Judith Smith [facility] MR ABDOMEN W WO CONTRAST MRCP 2020-05-19 16:24:44 Ganga Cash [facility] NM HEPATOBILIARY W INTERVENTION 15:10:00 Sunitha Corral [facility] BASIC METABOLIC PANEL (NA, K , CL, CO2, GLUCOSE, BUN, CREATININE, CA) 2020-05-17 08:59:00 Juan Ramon [facility] CBC WITH DIFFERENTIAL 2020-05-17 08:59:00 Azael Rogel [facility] ADC / LCC - DRUG SCREEN TRIAGE 4 06:51:00 [facility] XR KUB 2020-05-16 06:40:53 [facility] COVID-19 (ID NOW RAPID TESTING) 05:01:00 Ninfa Pearl [facility] URINALYSIS 2020-05-16 04:23:00 Ninfa Pearl [facility] LIPASE 2020-05-16 02:22:00 Ninfa Pearl [facility] HEPATIC FUNCTION PANEL (8007 6) (ALB,T.PRO,BILI T,BU/BC,ALT,AST,ALK PHOS) 2020-05-16 02:22:00 Ninfa Pearl [facility] BASIC METABOLIC PANEL (NA, K , CL, CO2, GLUCOSE, BUN, CREATININE, CA) 2020-05-16 02:22:00 Ninfa Pearl [facility] CBC WITH DIFFERENTIAL 2020-05-16 02:22:00 Ninfa Pearl [facility] EMERGENCY DEPARTMENT DOCUMENTS 3 05:01:00 Doctor Unassigned, [place] [facility] BASIC METABOLIC PANEL (NA, K , CL, CO2, GLUCOSE, BUN, CREATININE, CA) 2020-04-07 08:50:00 Azael Rogel [facility] CBC WITH DIFFERENTIAL 2020-04-07 08:50:00 Azael Rogel [facility] POCT GLUCOSE (AUTOMATED) 2020-04-06 16:18:00 Antonina Delatorre [facility] US GALL BLADDER 2020-04-06 13:43:29 Antonina Delatorre [facility] BASIC METABOLIC PANEL (NA, K , CL, CO2, GLUCOSE, BUN, CREATININE, CA) 2020-04-06 08:06:00 Juan Ramon [facility] COVID-19 (ID NOW RAPID TESTING) 00:25:00 Evelin Guerin [facility] CT ABDOMEN PELVIS W CONTRAST 2020-04-05 23:39:23 Evelin Guerin [facility] URINALYSIS 2020-04-05 23:04:00 Evelin Guerin [facility] ADC / LCC - DRUG SCREEN TRIAGE 2020-03-14 4 23:04:00 Evelin Guerin [facility] EKG-12 LEAD 2020-04-05 22:17:33 Ninfa Pearl [facility] LIPASE 2020-04-05 22:10:00 Evelin Guerin [facility] MAGNESIUM 2020-04-05 22:10:00 Evelin Guerin [facility] TROPONIN I 2020-04-05 22:10:00 Evelin Guerin [facility] COMP. METABOLIC PANEL ([id number]) 2020-04-05 22:10:00 Evelin Guerin [facility] ETHANOL 2020-04-05 22:10:00 Evelin Guerin [facility] CBC WITH DIFFERENTIAL 2020-04-05 22:10:00 Evelin Guerin [facility] EKG-12 LEAD 2020-04-05 22:08:47 Evelin Guerin [facility] CANCER ANTIGEN-GI (CA 19-9) 2020-03-06 10:53:00 Mouna Kebede [facility] C-REACTIVE PROTEIN 2020-03-06 10:53:00 Mouna Kebede [facility] SEDIMENTATION RATE 2020-03-06 10:53:00 Delio kirill [facility] COLONOSCOPY 2020-03-05 16:21:00 Nohemi Magallon [facility] CARCINOEMBRYONIC ANTIGEN 2020-03-05 15:31:00 Mouna Kebede [facility] COLONOSCOPY (ENDO) 2020-03-05 13:52:32 Devin Mclaughlin [facility] PHOSPHORUS 2020-03-05 10:23:00 Delio kirill [facility] MAGNESIUM 2020-03-05 10:23:00 Delio [facility] COMP. METABOLIC PANEL ([id number]) 2020-03-05 10:23:00 Delio [facility] CBC WITH DIFFERENTIAL 2020-03-05 10:23:00 Delio kirill [facility] PROTHROMBIN TIME / INR 2020-03-05 10:23:00 Delio kirill [facility] US PELVIS COMPLETE WITH TRANSVAGINAL 2020-03-05 01:35:11 Delio [facility] SURGICAL PATHOLOGY EXAM 2020-03-04 15:04:00 Nohemi Magallon [facility] ESOPHAGOGASTRODUODENOSCOPY 2020-03-04 14:46:00 Nohemi Magallon [facility] EGD (ENDO) 2020-03-04 14:39:56 Shauna Song [facility] PHOSPHORUS 2020-03-04 09:00:00 Delio [facility] MAGNESIUM 2020-03-04 09:00:00 Delio [facility] BASIC METABOLIC PANEL (NA, K , CL, CO2, GLUCOSE, BUN, CREATININE, CA) 2020-03-04 09:00:00 Devin Mclaughlin [facility] CBC WITH DIFFERENTIAL 2020-03-04 09:00:00 Devin Mclaughlin [facility] CT ABDOMEN PELVIS W CONTRAST 2020-03-03 22:35:33 Arnoldo Devin [facility] BASIC METABOLIC PANEL (NA, K , CL, CO2, GLUCOSE, BUN, CREATININE, CA) 2020-03-03 08:34:00 Devin Mclaughlin [facility] CBC WITH DIFFERENTIAL 2020-03-03 08:34:00 Arnoldo Devin [facility] ECHO ROUTINE W/DOPPLER COLOR 2020-03-02 18:34:01 Arnoldo Devin [facility] XR ABDOMEN ACUTE SERIES 2020-03-02 17:14:17 Cooper Mcneil [facility] URINALYSIS 2020-03-02 16:22:00 Cooper Mcneil [facility] ADC / LCC - DRUG SCREEN TRIAGE 2020-02-13 0 16:21:00 Cooper Mcneil [facility] TEST, SERUM 2020-03-02 14:27:00 [facility] 2020-03-02 14:27:00 [facility] ACTIVATED PARTIAL THRMPLAS HUMBERTO 2020-02-13 0 14:27:00 Cooper Mcneil [facility] EKG-12 LEAD 2020-03-02 14:19:13 Cooper Mcneil [facility] LIPASE 2020-03-02 14:13:00 [facility] 2020-03-02 14:13:00 [facility] HEPAT[facility] FUNCTION PANEL (8007 6) (ALB,T.PRO,BILI T,BU/BC,ALT,AST,ALK PHOS) 2020-03-02 14:13:00 [facility] BASIC METABOLIC PANEL (NA, K , CL, CO2, GLUCOSE, BUN, CREATININE, CA) 2020-03-02 14:13:00 [facility] 2020-03-02 14:13:00 [facility] CBC WITH DIFFERENTIAL 2020-03-02 14:13:00 Tarun [facility] N-TERMINAL PRO-BNP 2020-03-02 14:13:00 Tarun [facility] CORONAVIRUS COVID-19 TESTING 2020-03-02 14:13:00 [facility] 2020-03-02 14:10:10 [facility]TER[facility] PROVIDER RECORDS 2020-03-02 05:01:00 Doctor Unassigned, [place] [facility] HOSPITAL ADMISSION 2020-03-02 05:01:00 Doctor Unassigned, [place] [facility] CBC WITH DIFFERENTIAL 2020-01-01 17:34:00 Shauna Song [facility] GLYCOSYLATED HEMOGLOBIN (A1C) 2020-01-01 17:34:00 Shauna Song [facility] Encounters Start Date/Time End Date/Time Encounter Type Admission Type Attending Clinicians Care Facility Care Department Encounter ID Source 2021-09-13 02:01:28 Emergency [facility] [id number] [facility] 2021-09-13 02:01:16 Emergency [facility] [id number] [facility] 2021-09-12 23:24:18 Emergency [facility] [id number] [facility] 2021-09-12 15:06:45 Emergency [facility] [id number] [facility] 2021-09-12 05:36:25 Emergency [facility] [id number] [facility] 2021-09-11 11:36:34 Emergency [facility] [id number] [facility] 2021-09-11 05:46:33 Emergency [facility] [id number] [facility] 2021-09-10 18:59:11 Emergency [facility] [id number] [facility] 2021-09-10 18:31:55 Emergency [facility] [id number] [facility] 2021-09-10 05:39:41 Emergency [facility] [id number] [facility] 2021-09-10 04:39:39 Emergency [facility] [id number] [facility] 2024-05-05 13:37:00 2024-05-05 17:50:00 Emergency X JIMBO ROMERO [facility] [id number] [facility] 2024-05-05 13:37:00 2024-05-05 17:50:00 Emergency Jimbo Romero [facility] 1.2.840.114 350.1.13.10 4.2.7.2.686 [id number] [facility] 2024-01-20 15:38:00 2024-01-23 18:00:00 Inpatient X ELHAM ISABELL [facility] [id number] [facility] 2024-01-20 15:38:00 2024-01-23 18:00:00 Hospital Encounter Jeanna Jo Jelani [facility] 1.2840.114 350.1.13.10 4.2.7.2.686 [id number] [facility] 2024-01-16 16:00:00 2024-01-16 16:00:00 Outpatient R JESSICA PIEDRA [facility] [id number] [facility] 2023-12-20 14:00:00 2023-12-20 14:00:00 Outpatient R JESSICA PIEDRA [facility] [id number] [facility] 2023-11-09 00:00:00 2023-11-09 00:00:00 Transition of Care Daniel Nighat ANTONYDev DRE CHAPARRO 1.840.114 350.1.13.10 4.2.7.2.686 [id number] [facility] 2023-11-03 22:45:00 2023-11-05 13:23:00 Inpatient X RUBIA SALEEM [facility] ELDA [id number] [facility] 2023-11-03 22:45:00 2023-11-05 13:23:00 Hospital Encounter Benedicto Valentin Rubia Saleem [facility] 1.84.114 350.1.13.10 4.2.7.2.686 [id number] [facility] 2023-10-21 00:00:00 2023-10-21 00:00:00 Telephone Jessica Piedra [facility] 1.84.114 350.1.13.10 4.2.7.2.686 [id number] [facility] 2023-09-15 09:08:00 2023-09-15 10:52:00 Emergency X NINFA PEARL [facility] ERT [id number] [facility] 2023-09-15 09:08:00 2023-09-15 10:52:00 Emergency Roel Ninfa Cassandra [facility] 1.2.840.114 350.1.13.10 4.2.7.2.686 [id number] [facility] 2021-07-09 00:00:00 2021-07-09 00:00:00 Telephone Jenn Mcguire 1.2.840.114 350.1.13.10 4.2.7.2.686 [id number] [facility] 2021-07-04 00:00:00 2021-07-04 00:00:00 Refill Jessica Piedra [facility] 1.2.840.114 350.1.13.10 4.2.7.2.686 [id number] [facility] 2021-06-24 10:40:00 2021-06-24 10:40:00 Outpatient R JESSICA PIEDRA [facility] [id number] [facility] 2021-06-23 10:20:00 2021-06-23 10:20:00 Outpatient JESSICA ALEX [facility] [id number] [facility] 2021-06-18 00:00:00 2021-06-18 00:00:00 Telephone Jessica Piedra [facility] Office [facility] 1..840.114 350.1.13.10 4.2.7.2.686 [id number] [facility] 2021-05-21 14:00:00 2021-05-21 14:00:00 Outpatient R TIM VOSS [facility] [id number] [facility] 2021-04-29 23:48:00 2021-04-30 02:58:00 Emergency Ruth Watts [facility] 1.2.840.114 350.1.13.10 4.2.7.2.686 [id number] [facility] 2021-04-21 00:00:00 2021-04-21 00:00:00 Transition of Care Martha Mays 1.2.840.114 350.1.13.10 4.2.7.2.686 [id number] [facility] 2021-04-18 10:18:00 2021-04-20 14:37:00 Hospital Encounter Rehan Collins Yaman [facility] 1.2.840.114 350.1.13.10 4.2.7.2.686 [id number] [facility] 2021-03-30 15:30:00 2021-03-30 15:30:00 Outpatient R GORGE MONTES [facility] [id number] [facility] 2021-03-23 11:20:00 2021-03-23 11:20:00 Outpatient R JESSICA PIEDRA [facility] [id number] [facility] 2021-03-11 00:00:00 2021-03-11 00:00:00 Transition of Care Martha Mays 1.2.840.114 350.1.13.10 4.2.7.2.686 [id number] [facility] 2021-03-07 11:20:00 2021-03-10 11:00:00 Hospital Encounter Cooper Mcneil David [facility] 1.2.840.114 350.1.13.10 4.2.7.2.686 [id number] [facility] 2021-03-04 14:30:00 2021-03-04 14:30:00 Outpatient R [facility] [id number] [facility] 2021-02-24 07:48:34 2021-02-24 10:55:01 Telemedici ne Visit Jessica Piedra [facility] 1.2.840.114 350.1.13.10 4.2.7.2.686 [id number] [facility] 2021-02-24 09:00:00 2021-02-24 09:00:00 Outpatient R JESSICA PIEDRA [facility] [id number] [facility] 2021-02-23 00:00:00 2021-02-23 00:00:00 Refill Jessica Piedra [facility] 1.2.840.114 350.1.13.10 4.2.7.2.686 [id number] [facility] 2021-02-23 00:00:00 2021-02-23 00:00:00 Telephone Tadeo [facility] 1.2.840.114 350.1.13.10 4.2.7.2.686 [id number] [facility] 2021-01-22 12:08:00 2021-01-23 17:00:00 Emergency Deejay Sabillon, Mayank Duval, [facility] 1.2.840.114 350.1.13.10 4.2.7.2.686 [id number] [facility] 2021-01-12 16:00:00 2021-01-12 16:00:00 Outpatient R JESSICA PIEDRA [facility] [id number] [facility] 2021-01-12 10:23:44 2021-01-12 15:47:19 Telemedici ne Visit Jessica Piedra [facility] 1.2.840.114 350.1.13.10 4.2.7.2.686 [id number] [facility] 2021-01-12 00:00:00 2021-01-12 00:00:00 Telephone Jessica Piedra [facility] Katya Lam [facility] 1.2.840.114 350.1.13.10 4.2.7.2.686 [id number] [facility] 2021-01-08 00:00:00 2021-01-08 00:00:[address] [facility] 1.2.840.114 350.1.13.10 4.2.7.2.686 [id number] [facility] 2021-01-06 00:00:00 2021-01-06 00:00:00 Paris Long [facility] 1.2.840.114 350.1.13.10 4.2.7.2.686 [id number] [facility] 2020-12-25 08:52:48 2020-12-25 12:11:43 Telemedici ne Visit Jessica Piedra [facility] 1.2.840.114 350.1.13.10 4.2.7.2.686 [id number] [facility] 2020-12-25 09:40:00 2020-12-25 09:40:00 Outpatient R JESSICA PIEDRA [facility] [id number] [facility] 2020-12-23 10:40:00 2020-12-23 10:40:00 Outpatient R JESSICA PIEDRA [facility] [id number] [facility] 2020-12-23 00:00:00 2020-12-23 00:00:[address] [facility] 1.2.840.114 350.1.13.10 4.2.7.2.686 [id number] [facility] 2020-11-27 08:40:00 2020-11-27 08:40:00 Outpatient R JESSICA PIEDRA [facility] [id number] [facility] 2020-11-27 08:11:31 2020-11-27 08:26:31 Telemedici ne Visit Jessica Piedra [facility] 1.2.840.114 350.1.13.10 4.2.7.2.686 [id number] [facility] 2020-11-25 09:40:00 2020-11-25 09:40:00 Outpatient R JESSICA PIEDRA [facility] [id number] [facility] 2020-11-19 09:00:00 2020-11-19 09:40:00 Telemedici ne Visit Jessica Piedra [facility] 1.2.840.114 350.1.13.10 4.2.7.2.686 [id number] [facility] 2020-11-19 09:00:00 2020-11-19 09:00:00 Outpatient R JESSICA PIEDRA [facility] [id number] [facility] 2020-11-03 00:00:00 2020-11-03 00:00:00 Transition of Care Martha Mays 1.2840.114 350.1.13.10 4.2.7.2.686 [id number] [facility] 2020-10-28 10:32:00 2020-11-02 14:53:00 Hospital Encounter Evelin Guerin Yaman [facility] 1.2.840.114 350.1.13.10 4.2.7.2.686 [id number] [facility] 2020-09-28 11:24:00 2020-09-30 12:40:00 Emergency Cooper Mcneil Yaman [facility] 1.2.840.114 350.1.13.10 4.2.7.2.686 [id number] [facility] 2020-09-22 07:55:46 2020-09-22 16:43:37 Telemedici ne Visit Tadeo [facility] 1.2.840.114 350.1.13.10 4.2.7.2.686 [id number] [facility] 2020-09-22 09:40:00 2020-09-22 09:40:00 Outpatient R TADEOJESSICA [facility] [id number] [facility] 2020-08-10 00:00:00 2020-08-10 00:00:00 Telephone Jessica Piedra [facility] 1.2.840.114 350.1.13.10 4.2.7.2.686 [id number] [facility] 2020-08-05 10:29:00 2020-08-05 17:15:00 Emergency Singer [facility] 1.2.840.114 350.1.13.10 4.2.7.2.686 [id number] [facility] 2020-08-03 09:00:00 2020-08-03 14:22:[address] Emergency Singer [facility] 1.2.840.114 350.1.13.10 4.2.7.2.686 [id number] [facility] 2020-07-27 10:00:00 2020-07-27 10:00:00 Outpatient R KIYA GARCIA [facility] [id number] [facility] 2020-06-22 08:27:30 2020-06-22 13:13:04 Telemedici ne Visit [facility] 1.2.840.114 350.1.13.10 4.2.7.2.686 [id number] [facility] 2020-06-22 10:00:00 2020-06-22 10:00:00 Outpatient R JESSICA PIEDRA [facility] [id number] [facility] 2020-06-22 00:00:00 2020-06-22 00:00:00 Telephone Jessica Piedra [facility] 1.2.840.114 350.1.13.10 4.2.7.2.686 [id number] [facility] 2020-06-17 08:00:00 2020-06-17 08:00:00 [facility] [id number] 2020-06-16 15:00:00 2020-06-16 15:00:00 Outpatient R JESSICA PIEDRA [facility] [id number] [facility] 2020-06-10 13:30:00 2020-06-10 13:30:00 Outpatient R KIYA GARCIA [facility] [id number] [facility] 2020-06-03 10:30:00 2020-06-03 11:00:00 Telemedici ne Visit [facility] 1..840.114 350.1.13.10 4.2.7.2.686 [id number] [facility] 2020-06-03 10:30:00 2020-06-03 10:30:00 Outpatient R KIYA GARCIA [facility] [id number] [facility] 2020-04-23 13:37:13 2020-05-26 13:31:13 Telemedici ne Visit [facility] 1.2.840.114 350.1.13.10 4.2.7.2.686 [id number] [facility] 2020-05-20 21:33:07 2020-05-22 15:38:00 Emergency Judith Smith, Vantessa Robles [facility] 1.2.840.114 350.1.13.10 4.2.7.2.686 [id number] [facility] 2020-05-22 00:00:00 2020-05-22 00:00:00 Patient Outreach Regine Howarddev Chaparro 1.2.840.114 350.1.13.10 4.2.7.2.686 [id number] [facility] 2020-05-21 00:00:00 2020-05-21 00:00:00 Transition of Care MaysMartha rothmandev Conteviktoria Chaparro 1.2.840.114 350.1.13.10 4.2.7.2.686 [id number] [facility] 2020-05-21 00:00:00 2020-05-21 00:00:00 Telephone Eliane Tripathi [facility] 1.2.840.114 350.1.13.10 4.2.7.2.686 [id number] [facility] 2020-05-15 21:13:06 2020-05-20 15:09:00 Hospital Encounter Ninfa Pearl Shebey [facility] 1.2.840.114 350.1.13.10 4.2.7.2.686 [id number] [facility] 2020-05-17 00:00:00 2020-05-17 00:00:00 Telephone Piotr Grimm [facility] 1.2.840.114 350.1.13.10 4.2.7.2.686 [id number] [facility] 2020-04-24 00:00:00 2020-04-24 00:00:00 Patient Outreach Meaghan Pandey [facility] 1..114 350.1.13.10 4.2.7.2.686 [id number] [facility] 2020-04-23 14:40:00 2020-04-23 14:40:00 Outpatient R JESSICA PIEDRA [facility] [id number] [facility] 2020-04-14 14:30:00 2020-04-14 14:30:00 Outpatient R PARIS PEREZ [facility] [id number] [facility] 2020-04-05 17:11:25 2020-04-07 11:20:00 Outpatient X [facility] [id number] [facility] 2020-04-05 17:11:25 2020-04-07 11:20:00 Emergency Leona[facility]..114 350.1.13.10 4.2.7.2.686 [id number] [facility] 2020-03-13 09:21:37 2020-03-13 15:27:34 Telemedici ne Visit Jessica Piedra [facility] 1..114 350.1.13.10 4.2.7.2.686 [id number] [facility] 2020-03-13 14:20:00 2020-03-13 14:20:00 Outpatient R JESSICA PIEDRA [facility] [id number] [facility] 2020-03-12 00:00:00 2020-03-12 00:00:00 Telephone Randall Carrillo [facility] 1.84.114 350.1.13.10 4.2.7.2.686 [id number] [facility] 2020-03-10 00:00:00 2020-03-10 00:00:00 Telephone Unknown, Attending [facility] Office Building One 1.2840.114 350.1.13.10 4.2.7.2.686 [id number] [facility] 2020-03-09 00:00:00 2020-03-09 00:00:00 Transition of Care Martha Mays 1.2840.114 350.1.13.10 4.2.7.2.686 [id number] [facility] 2020-03-02 09:03:51 2020-03-06 16:00:00 Inpatient X INEZ OPHELIA [facility] [id number] [facility] 2020-03-02 09:03:51 2020-03-06 16:00:00 Hospital Encounter Cooper Mcneil Yaman Nguyen, Ophelia [facility] 1.2840.114 350.1.13.10 4.2.7.2.686 [id number] [facility] 2020-01-01 11:21:38 2020-01-01 11:36:38 Jacquard Card Cutter Visit Pob, Adc Lab Main Joselin Su [facility] 1.2.840.114 350.1.13.10 4.2.7.2.686 [id number] [facility] Results Test Description Test Time Test Comments Results Result Comments Source CT ABDOMEN PELVIS W CONTRAST 2024-04-14 3 21:37:59 EXAM: CT ABDOMEN PELVIS W CONTRAST HISTORY: 48 years -old Female with Abdominal pain, acute, nonlocalized non-focal abdominal pain greatest in upper abdomen; history ofdiverticulitis with abscess in 01/2024. ORDERING PHYSICIAN: JIMBO ROMERO TECHNIQUE: Contiguous volumetric CT images were obtained from the lower chest throughthe abdomen and pelvis with intravenous contrast. ?Images were displayed inaxial, coronal, and sagittal planes. ?All CT scans are performed using doseoptimization techniques as appropriate to the exam being performed. Thesetechniques include automatic exposure control and/or standardized protocolsutilizing dose matching according to exam type and patient size. COMPARISON: 01/20/2024 FINDINGS:Statements: None. Thoracic: Included images of the lower chest demonstrate no abnormalities. Hepatobiliary: Hepatomegaly with hepatic steatosis. No focal hepaticlesion. The gallbladder is unremarkable. No biliary dilation. Pancreas: No abnormality identified in the pancreas. Spleen: No abnormality identified in the spleen. Adrenals: There is a 1.7 cm left adrenal nodule of indeterminant density. Genitourinary: No parenchymal abnormality identified in either kidney. Nohydronephrosis. The bladder is contracted limiting evaluation. The uterusis unremarkable. No adnexal mass. Gastrointestinal: No evidence of bowel obstruction. There is a long segmentwall thickening in the transverse colon, descending colon, and sigmoidcolon. Mild diverticulosis. The appendix is normal. Vascular/Lymphatics: No enlarged lymph nodes by CT size criteria. Abdominalaorta is normal in caliber. MSK: No concerning bony lesion identified. ORIF hardware in the proximalleft femur. Other: No extraluminal air. No ext[facility]uminal fluid. [facility]78[facility]-05 20:14:29* Test Item Value Reference Range Interpretation Comme nts NA (test code = 1971502201) 136 mmol/L 135-145 K (test code = 3336795895) 3.2 mmol/L 3.5-5.0 L CL (test code = 5011251232) 100 mmol/L 98-108 CO2 TOTAL (test code = 7745402747) 24 mmol/L 23-31 AGAP (test code = 0201458054) 12 2-16 BUN (test code = 4325991966) 11 mg/dL 7-23 GLUCOSE (test code = 7945517371) 166 mg/dL 70-110 H CREATININE (test code = 2160-0) 0.52 mg/dL 0.50-1.04 TOTAL BILI (test code = 0516338395) 1.1 mg/dL 0.1-1.1 CALCIUM (test code = 8957507620) 10.2 mg/dL 8.6-10.6 T PROTEIN (test code = 3465668182) 7.4 g/dL 6.3-8.2 ALBUMIN (test code = 9671105536) 4.3 g/dL 3.5-5.0 ALK PHOS (test code = 8159242396) 93 U/L 34-122 ALTv (test code = 1742-6) 178 U/L 5-35 H AST(SGOT) (test code = 4563000154) 173 U/L 13-40 H eGFR (test code = 26701-8) 114.8 mL/min/1.73m2 CKD-EPI eGFR (2020). Assuming creatinine has been stable day-to-day for at least three months, the eGFR indicates Category G1 (>= 90 mL/min/1.73 m2) Lab Interpretation (test code = 22896-0) [facility]normal [facility]:14[facility]* Test Item Value Reference Range Interpretation Comme nts LIPASE (test code = 5085250453) 54 U/L 0-220 Lab Interpretation (test cod e = 93041-3) Normal [facility] WITH [id number] 19:57:09* Test Item Value Reference Range Interpretation Comme nts WBC (test code = 6690-2) 9.08 4.30-11.10 RBC (test code = 789-8) 5.02 3.93-5.25 HGB (test code = 718-7) 16.0 g/dL 11.6-15.0 H HCT (test code = 4544-3) 47.2 % 35.7-45.2 H MCV (test code = 787-2) 94.0 fL 80.6-95.5 MCH (test code = 785-6) 31.9 pg 25.9-32.8 MCHC (test code = 786-4) 33.9 g/dL 31.6-35.1 RDW-SD (test code = 66834-7) 45.5 fL 39.0-49.9 RDW-CV (test code = 788-0) 13.2 % 12.0-15.5 PLT (test code = 777-3) 199 166-358 MPV (test code = 76273-9) 12.1 fL 9.5-12.9 NRBC/100 WBC (test code = 3723022643) 0.0 0.0-10.0 NRBC x10^3 (test code = 7221776574) See_Comment [Automated messa ge] The system which generated this result transmitted reference range: 10*3/?L. The reference range was not used to interpret this result as normal/abnormal. GRAN MAT (NEUT) % (test code = 770-8) 84.1 % IMM GRAN % (test code = 2281017089) 0.30 % LYMPH % (test code = 736-9) 9.8 % MONO % (test code = 5905-5) 5.0 % EOS % (test code = 713-8) 0.2 % BASO % (test code = 706-2) 0.6 % GRAN MAT x10^3(ANC) (test code = 3178969385) 7.64 10*3/uL 1.88-7.09 H IMM GRAN x10^3 (test code = 3613608172) 0.03 10*3/uL 0.00-0.06 LYMPH x10^3 (test code = 731-0) 0.89 10*3/uL 1.32-3.29 L MONO x10^3 (test code = 742-7) 0.45 10*3/uL 0.33-0.92 EOS x10^3 (test code = 711-2) 0.03-0.39 L BASO x10^3 (test code = 704-7) 0.05 10*3/uL 0.01-0.07 Lab Interpretation (test code = 21591-5) [facility]normal [facility] 10:20:46* Test Item Value Reference Range Interpretation Comme nts MAGNESIUM (test code = 6369215726) 1.9 mg/dL 1.7-2.4 Lab Interpretation (test cod e = 87519-9) Normal [facility] (NA, K, CL, CO2, GLUCOSE, BUN, CREATININE, CA)2024-01-22 10:20:30* Test Item Value Reference Range Interpretation Comme nts NA (test code = 8256790021) 138 mmol/L 135-145 K (test code = 5748007514) 3.7 mmol/L 3.5-5.0 CL (test code = 1768156662) 103 mmol/L 98-108 CO2 TOTAL (test code = 0979116962) 30 mmol/L 23-31 AGAP (test code = 8676533017) 5 2-16 BUN (test code = 3574926535) 9 mg/dL 7-23 GLUCOSE (test code = 9679611369) 119 mg/dL 70-110 H CREATININE (test code = 2160-0) 0.54 mg/dL 0.50-1.04 CALCIUM (test code = 7673223396) 9.1 mg/dL 8.6-10.6 eGFR (test code = 74938-2) 113.7 mL/min/1.73m2 CKD-EPI eGFR (2020). Assuming creatinine has been stable day-to-day for at least three months, the eGFR indicates Category G1 (>= 90 mL/min/1.73 m2) Lab Interpretation (test code = 65982-8) [facility] Test Item Value Reference Range Interpretation Comme nts PHOSPHORUS (test code = 3264679476) 2.9 mg/dL 2.5-5.0 Lab Interpretation (test cod e = 37140-3) Normal [facility] with [id number] 09:56:45* Test Item Value Reference Range Interpretation Comme nts WBC (test code = 6690-2) 8.92 4.30-11.10 RBC (test code = 789-8) 3.90 3.93-5.25 L HGB (test code = 718-7) 11.7 g/dL 11.6-15.0 HCT (test code = 4544-3) 37.2 % 35.7-45.2 MCV (test code = 787-2) 95.4 fL 80.6-95.5 MCH (test code = 785-6) 30.0 pg 25.9-32.8 MCHC (test code = 786-4) 31.5 g/dL 31.6-35.1 L RDW-SD (test code = 54575-5) 56.9 fL 39.0-49.9 H RDW-CV (test code = 788-0) 16.1 % 12.0-15.5 H PLT (test code = 777-3) 252 166-358 MPV (test code = 11534-6) 11.0 fL 9.5-12.9 NRBC/100 WBC (test code = 4723810944) 0.0 0.0-10.0 NRBC x10^3 (test code = 1920979174) See_Comment [Automated [employer]] The system which generated this result transmitted reference range: 10*3/?L. The reference range was not used to interpret this result as normal/abnormal. GRAN MAT (NEUT) % (test code = 770-8) 76.9 % IMM GRAN % (test code = 0958436457) 0.30 % LYMPH % (test code = 736-9) 10.3 % MONO % (test code = 5905-5) 9.8 % EOS % (test code = 713-8) 2.1 % BASO % (test code = 706-2) 0.6 % GRAN MAT x10^3(ANC) (test code = 1427272725) 6.86 10*3/uL 1.88-7.09 IMM GRAN x10^3 (test code = 3755341476) 0.03 10*3/uL 0.00-0.06 LYMPH x10^3 (test code = 731-0) 0.92 10*3/uL 1.32-3.29 L MONO x10^3 (test code = 742-7) 0.87 10*3/uL 0.33-0.92 EOS x10^3 (test code = 711-2) 0.19 10*3/uL 0.03-0.39 BASO x10^3 (test code = 704-7) 0.05 10*3/uL 0.01-0.07 Lab Interpretation (test code = 76083-2) [facility] W [id number] 13:48:06EXAM: CT MAXILLOFACIAL/MANDIBLE W CONTRAST HISTORY: Sublingual/mandibular abscess . History obtained from [facility]: Patient with left jaw pain from suspected badtooth which is currently on antibiotics for. TECHNIQUE: Routine contrast enhanced CT of the maxilla and face wasperformed. Coronal and sagittal reformats were obtained. COMPARISON: none FINDINGS: Hardware fixation of left lateral wall and inferior orbital floor fracturesare present. No acute facial fractures are identified. A chronic fractureof the left zygomatic arch is noted. A chronic fracture of the leftpterygoid spine is present. There is symmetric soft tissue of the nasopharynx and oropharynx. The softtissues are unremarkable without lesions. The submandibular and parotid glands are unremarkable. The mandible and temporomandibular joints are unremarkable. ?A dental carieseen involving the left second mandibular molar. The paranasal air sinuses and mastoid air cells are clear.[facility] with Fuuatssqbjkj5628-73-01 10:07:07* Test Item Value Reference Range Interpretation Comme nts WBC (test code = 6690-2) 8.32 4.30-11.10 RBC (test code = 789-8) 3.81 3.93-5.25 L HGB (test code = 718-7) 11.4 g/dL 11.6-15.0 L HCT (test code = 4544-3) 35.2 % 35.7-45.2 L MCV (test code = 787-2) 92.4 fL 80.6-95.5 MCH (test code = 785-6) 29.9 pg 25.9-32.8 MCHC (test code = 786-4) 32.4 g/dL 31.6-35.1 RDW-SD (test code = 36906-8) 55.7 fL 39.0-49.9 H RDW-CV (test code = 788-0) 16.6 % 12.0-15.5 H PLT (test code = 777-3) 253 166-358 MPV (test code = 95698-8) 11.9 fL 9.5-12.9 NRBC/100 WBC (test code = 5052991230) 0.0 0.0-10.0 NRBC x10^3 (test code = 4821114602) See_Comment [Automated messa ge] The system which generated this result transmitted reference range: 10*3/?L. The reference range was not used to interpret this result as normal/abnormal. GRAN MAT (NEUT) % (test code = 770-8) 75.8 % IMM GRAN % (test code = 9412647956) 0.50 % LYMPH % (test code = 736-9) 13.5 % MONO % (test code = 5905-5) 8.8 % EOS % (test code = 713-8) 1.0 % BASO % (test code = 706-2) 0.4 % GRAN MAT x10^3(ANC) (test code = 5393999828) 6.32 10*3/uL 1.88-7.09 IMM GRAN x10^3 (test code = 2155358718) 0.04 10*3/uL 0.00-0.06 LYMPH x10^3 (test code = 731-0) 1.12 10*3/uL 1.32-3.29 L MONO x10^3 (test code = 742-7) 0.73 10*3/uL 0.33-0.92 EOS x10^3 (test code = 711-2) 0.08 10*3/uL 0.03-0.39 BASO x10^3 (test code = 704-7) 0.03 10*3/uL 0.01-0.07 Lab Interpretation (test code = 38317-0) [facility]normal [facility] W [id number] 23:39:33CT ABDOMEN PELVIS W CONTRAST Indication: Abdominal pain, acute, nonlocalized ? Comparison: April RL: Ordering Clinician: JEANNA JO Technique: Axial CT images of the abdomen and pelvis were performed with ivcontrast. Sagittal and coronal reformats were created. Dose reductiontec hniques were used (ALARA). Technical Quality: Adequate Discussion:Lines/Devices: None. Chest/Vessels: No acute abnormalities within the lung bases. ?The aorta isacutely normal. Organs: No acute liverpathology. ?No gallbladder abnormalities. ?Theportal vein is patent. ?The pancreas is normal. ?No splenic masses. ?Leftadrenal nodule measuring 1.7 cm nonspecific and 56 Hounsfield units butstable since 2020. : No hydronephrosis. No renal stones. The ureters are normal. ?Thebladder is normal. GI:Diverticulosis of the large bowel without acute diverticulitis of thesigmoid colon with a small posterior abscess measuring 2.1 x 3.0 x 2.4 cm No small bowel obstruction. ?Normal appendix. Misc.: Subcentimeter lymph nodes are below size criteria. ?No nondependentfree air. Skeleton: No acute osseouspathology.[facility] Jkaseaj1576-37-57 22:41:52* Test Item Value Reference Range Interpretation Comme nts ALCOHOL (test code = 0374123345) 55 mg/dL THEODORA (test code = THEODORA) <10 Bwswjkjv37-465 Toxic>100 Depression of DINKEY ENGINEER>400 Fatalities Reported [facility]OLIC PANEL (23435)2024-01-20 22:41:12* Test Item Value Reference Range Interpretation Comme nts NA (test code = 3588305027) 139 mmol/L 135-145 K (test code = 9948065327) 3.5 mmol/L 3.5-5.0 CL (test code = 6033277629) 106 mmol/L 98-108 CO2 TOTAL (test code = 1344632715) 25 mmol/L 23-31 AGAP (test code = 2767453771) 8 2-16 BUN (test code = 2414997856) 9 mg/dL 7-23 GLUCOSE (test code = 7688020507) 170 mg/dL 70-110 H CREATININE (test code = 2160-0) 0.51 mg/dL 0.50-1.04 TOTAL BILI (test code = 9188509854) 0.7 mg/dL 0.1-1.1 CALCIUM (test code = 5019406092) 9.3 mg/dL 8.6-10.6 T PROTEIN (test code = 8967777207) 7.2 g/dL 6.3-8.2 ALBUMIN (test code = 1123940872) 3.8 g/dL 3.5-5.0 ALK PHOS (test code = 4840122202) 101 U/L 34-122 ALTv (test code = 1742-6) 32 U/L 5-35 AST(SGOT) (test code = 8834103630) 36 U/L 13-40 eGFR (test code = 13345-5) 115.3 mL/min/1.73m2 CKD-EPI eGFR (2020). Assuming creatinine has been stable day-to-day for at least three months, the eGFR indicates Category G1 (>= 90 mL/min/1.73 m2) Lab Interpretation (test code = 84677-5) [facility]normal [facility] 22:40:52* Test Item Value Reference Range Interpretation Comme nts LIPASE (test code = 4884225004) 54 U/L 0-220 Lab Interpretation (test cod e = 99469-7) Normal [facility] WITH [id number] 22:28:52* Test Item Value Reference Range Interpretation Comme nts WBC (test code = 6690-2) 10.25 4.30-11.10 RBC (test code = 789-8) 4.17 3.93-5.25 HGB (test code = 718-7) 12.3 g/dL 11.6-15.0 HCT (test code = 4544-3) 38.4 % 35.7-45.2 MCV (test code = 787-2) 92.1 fL 80.6-95.5 MCH (test code = 785-6) 29.5 pg 25.9-32.8 MCHC (test code = 786-4) 32.0 g/dL 31.6-35.1 RDW-SD (test code = 68120-1) 55.3 fL 39.0-49.9 H RDW-CV (test code = 788-0) 16.1 % 12.0-15.5 H PLT (test code = 777-3) 254 166-358 MPV (test code = 62701-7) 11.4 fL 9.5-12.9 NRBC/100 WBC (test code = 3097122187) 0.0 0.0-10.0 NRBC x10^3 (test code = 3116787751) See_Comment [Automated E-Diversify Yourselfa ge] The system which generated this result transmitted reference range: 10*3/?L. The reference range was not used to interpret this result as normal/abnormal. GRAN MAT (NEUT) % (test code = 770-8) 79.8 % IMM GRAN % (test code = 0564555916) 0.40 % LYMPH % (test code = 736-9) 10.0 % MONO % (test code = 5905-5) 8.8 % EOS % (test code = 713-8) 0.5 % BASO % (test code = 706-2) 0.5 % GRAN MAT x10^3(ANC) (test code = 7008395011) 8.18 10*3/uL 1.88-7.09 H IMM GRAN x10^3 (test code = 5809126146) 0.04 10*3/uL 0.00-0.06 LYMPH x10^3 (test code = 731-0) 1.03 10*3/uL 1.32-3.29 L MONO x10^3 (test code = 742-7) 0.90 10*3/uL 0.33-0.92 EOS x10^3 (test code = 711-2) 0.05 10*3/uL 0.03-0.39 BASO x10^3 (test code = 704-7) 0.05 10*3/uL 0.01-0.07 Lab Interpretation (test code = 40452-4) [facility]normal [facility] [id number] 21:54:00* Test Item Value Reference Range Interpretation Comme nts POCT PREG (test code = 1605) Negative On board controls acceptable with C Line (test code = 3574) Yes POCT PREG LOT # (test code = 3575) [id number] POCT PREG TEST DATE ( test code = 3576) 12-18-2024 Lab Interpretation (test cod e = 45126-3) Normal [facility]le[facility] Function [facility] (02322) (ALB,T.PRO,BILI T,BU/BC,ALT,AST,ALK PHOS)2023-11-05 16:18:48* Test Item Value Reference Range Interpretation Comme nts TOTAL BILI (test code = 5827414699) 0.6 mg/dL 0.1-1.1 BILI UNCON (test code = 7956972774) 0.3 mg/dL 0.1-1.1 BILI CONJ (test code = 4863138347) 0.0 mg/dL 0.0-0.3 T PROTEIN (test code = 3379532801) 6.1 g/dL 6.3-8.2 L ALBUMIN (test code = 6735366027) 3.1 g/dL 3.5-5.0 L ALK PHOS (test code = 7369882321) 77 U/L 34-122 ALTv (test code = 1742-6) 36 U/L 5-35 H AST(SGOT) (test code = 6579161127) 41 U/L 13-40 H Lab Interpretation (test cod e = 80552-2) Abnormal [facility] with Qyumlmvbxzjy7645-13-61 10:25:09* Test Item Value Reference Range Interpretation Comme nts WBC (test code = 6690-2) 7.02 See_Comment [Automated messa ge] The system which generated this result transmitted reference range: 4.30 - 11.10 10*3/?L. The reference range was not used to interpret this result as normal/abnormal. RBC (test code = 789-8) 3.80 See_Comment L [Automated messa ge] The system which generated this result transmitted reference range: 3.93 - 5.25 10*6/?L. The reference range was not used to interpret this result as normal/abnormal. HGB (test code = 718-7) 10.9 g/dL 11.6-15.0 L HCT (test code = 4544-3) 35.2 % 35.7-45.2 L MCV (test code = 787-2) 92.6 fL 80.6-95.5 MCH (test code = 785-6) 28.7 pg 25.9-32.8 MCHC (test code = 786-4) 31.0 g/dL 31.6-35.1 L RDW-SD (test code = 50688-5) 51.1 fL 39.0-49.9 H RDW-CV (test code = 788-0) 15.2 % 12.0-15.5 PLT (test code = 777-3) 200 See_Comment [Automated messa ge] The system which generated this result transmitted reference range: 166 - 358 10*3/?L. The reference range was not used to interpret this result as normal/abnormal. MPV (test code = 78069-5) 10.8 fL 9.5-12.9 NRBC/100 WBC (test code = 6139950663) 0.0 See_Comment [Automated me ssage] The system which generated this result transmitted reference range: 0.0 - 10.0 /100 WBCs. The reference range was not used to interpret this result as normal/abnormal. NRBC x10^3 (test code = 1413340400) See_Comment [Automated messa ge] The system which generated this result transmitted reference range: 10*3/?L. The reference range was not used to interpret this result as normal/abnormal. GRAN MAT (NEUT) % (test code = 770-8) 67.9 % IMM GRAN % (test code = 2374446644) 0.40 % LYMPH % (test code = 736-9) 19.4 % MONO % (test code = 5905-5) 8.0 % EOS % (test code = 713-8) 3.7 % BASO % (test code = 706-2) 0.6 % GRAN MAT x10^3(ANC) (test code = 3019735819) 4.77 10*3/uL 1.88-7.09 IMM GRAN x10^3 (test code = 3802044191) 0.03 10*3/uL 0.00-0.06 LYMPH x10^3 (test code = 731-0) 1.36 10*3/uL 1.32-3.29 MONO x10^3 (test code = 742-7) 0.56 10*3/uL 0.33-0.92 EOS x10^3 (test code = 711-2) 0.26 10*3/uL 0.03-0.39 BASO x10^3 (test code = 704-7) 0.04 10*3/uL 0.01-0.07 Lab Interpretation (test code = 18978-5) [facility]normal [facility]leMagnesium Yzopn0839-77-30 10:24:49* Test Item Value Reference Range Interpretation Comme nts MAGNESIUM (test code = 9214780520) 1.7 mg/dL 1.7-2.4 Lab Interpretation (test cod e = 50686-9) Normal [facility] Metabolic Panel (NA, K, CL, CO2, GLUCOSE, BUN, CREATININE, CA)2023-11-05 10:24:29* Test Item Value Reference Range Interpretation Comme nts NA (test code = 0407215559) 138 mmol/L 135-145 K (test code = 1063151572) 3.5 mmol/L 3.5-5.0 CL (test code = 4070437453) 107 mmol/L 98-108 CO2 TOTAL (test code = 2472839633) 26 mmol/L 23-31 AGAP (test code = 9174559612) 5 2-16 BUN (test code = 8800583090) 7 mg/dL 7-23 GLUCOSE (test code = 1687224145) 112 mg/dL 70-110 H CREATININE (test code = 4523775870) 0.41 mg/dL 0.50-1.04 L CALCIUM (test code = 7117760789) 7.3 mg/dL 8.6-10.6 L eGFR (test code = 60496-0) 121.5 mL/min/1.73m2 CKD-EPI eGFR (2020). Assuming creatinine has been stable day-to-day for at least three months, the eGFR indicates Category G1 (>= 90 mL/min/1.73 m2) Lab Interpretation (test code = 53148-9) [facility]normal [facility]le[facility]2023-12-24 10:23:48* Test Item Value Reference Range Interpretation Comme nts LIPASE (test code = 4750879105) 644 U/L 0-220 H Lab Interpretation (test cod e = 58367-8) [facility]normal [facility]leMagnesium2023-12-23 16:04:01* Test Item Value Reference Range Interpretation Comme nts MAGNESIUM (test code = 6531312513) 1.3 mg/dL 1.7-2.4 L Lab Interpretation (test cod e = 82051-2) [facility]normal [facility]le[facility]AT[facility] FUNCTION PANEL (89932) (ALB,T.PRO,BILI T,BU/BC,ALT,AST,ALK PHOS)2023-11-04 10:58:24* Test Item Value Reference Range Interpretation Comme nts TOTAL BILI (test code = 7367192993) 0.6 mg/dL 0.1-1.1 BILI UNCON (test code = 8155274817) 0.3 mg/dL 0.1-1.1 BILI CONJ (test code = 9133017031) 0.0 mg/dL 0.0-0.3 T PROTEIN (test code = 5039440767) 7.0 g/dL 6.3-8.2 ALBUMIN (test code = 7888684458) 3.9 g/dL 3.5-5.0 ALK PHOS (test code = 3896253543) 110 U/L 34-122 ALTv (test code = 1742-6) 56 U/L 5-35 H AST(SGOT) (test code = 1964079728) 62 U/L 13-40 H Lab Interpretation (test cod e = 76882-9) Abnormal [facility]lePhosphorus Ccqcw7885-33-70 10:58:04* Test Item Value Reference Range Interpretation Comme nts PHOSPHORUS (test code = 2404268408) 2.7 mg/dL 2.5-5.0 Lab Interpretation (test cod e = 48691-4) Normal [facility]leTROPONIN Q0327-89-96 05:48:10* Test Item Value Reference Range Interpretation Comme nts TROPONIN I (test code = 8368720561) <=0.034 THEODORA (test code = THEODORA) Reference (Normal) Range (defined by the 99th percentile reference limit): <= 0.034 ng/mL Note: Cardiac troponin begins to rise 3-4 hours after the onset of ischemia. Repeat in 4-6 hours if the sample was drawn within 3-4 hours of the onset of the symptom and found normal. Diagnosis of myocardial injury is made with acute changes in cTn concentrations with at least one serial sample above the 99th percentile upper reference limit (URL), taken together with the patient's clinical presentation. Biotin has been reported to cause a negative bias, interpret results relative to patient's use of biotin. Lab Interpretation (test code = 46600-6) Normal [facility]le[facility] METABOLIC PANEL (87690)2023-11-04 05:39:05* Test Item Value Reference Range Interpretation Comme nts NA (test code = 1085244044) 136 mmol/L 135-145 K (test code = 3899182757) 2.6 mmol/L 3.5-5.0 LL CL (test code = 2187150751) 101 mmol/L 98-108 CO2 TOTAL (test code = 2820597142) 26 mmol/L 23-31 AGAP (test code = 8910230942) 9 2-16 BUN (test code = 2952087598) 20 mg/dL 7-23 GLUCOSE (test code = 2372068186) 180 mg/dL 70-110 H CREATININE (test code = 3433654355) 0.64 mg/dL 0.50-1.04 TOTAL BILI (test code = 4172139763) 0.6 mg/dL 0.1-1.1 CALCIUM (test code = 1948282172) 9.0 mg/dL 8.6-10.6 T PROTEIN (test code = 2217880091) 7.0 g/dL 6.3-8.2 ALBUMIN (test code = 2245808335) 4.0 g/dL 3.5-5.0 ALK PHOS (test code = 5848620803) 111 U/L 34-122 ALTv (test code = 1742-6) 56 U/L 5-35 H AST(SGOT) (test code = 2978152598) 50 U/L 13-40 H eGFR (test code = 37379-7) 109.2 mL/min/1.73m2 CKD-EPI eGFR (2020). Assuming creatinine has been stable day-to-day for at least three months, the eGFR indicates Category G1 (>= 90 mL/min/1.73 m2) Lab Interpretation (test code = 51818-5) [facility]normal [facility]2023-[facility]-23 05:37:09* Test Item Value Reference Range Interpretation Comme nts LIPASE (test code = 6177616319) 1327 U/L 0-220 H Lab Interpretation (test cod e = 79032-3) [facility]normal [facility] WITH MBJC1801-71-64 05:14:06* Test Item Value Reference Range Interpretation Comme nts WBC (test code = 6690-2) 8.96 See_Comment [Automated E-Diversify Yourselfa ge] The system which generated this result transmitted reference range: 4.30 - 11.10 10*3/?L. The reference range was not used to interpret this result as normal/abnormal. RBC (test code = 789-8) 4.18 See_Comment [Automated messa ge] The system which generated this result transmitted reference range: 3.93 - 5.25 10*6/?L. The reference range was not used to interpret this result as normal/abnormal. HGB (test code = 718-7) 12.1 g/dL 11.6-15.0 HCT (test code = 4544-3) 37.3 % 35.7-45.2 MCV (test code = 787-2) 89.2 fL 80.6-95.5 MCH (test code = 785-6) 28.9 pg 25.9-32.8 MCHC (test code = 786-4) 32.4 g/dL 31.6-35.1 RDW-SD (test code = 04077-7) 47.8 fL 39.0-49.9 RDW-CV (test code = 788-0) 14.7 % 12.0-15.5 PLT (test code = 777-3) 243 See_Comment [Automated messa ge] The system which generated this result transmitted reference range: 166 - 358 10*3/?L. The reference range was not used to interpret this result as normal/abnormal. MPV (test code = 81648-6) 10.0 fL 9.5-12.9 NRBC/100 WBC (test code = 9972967461) 0.0 See_Comment [Automated Lexim ssage] The system which generated this result transmitted reference range: 0.0 - 10.0 /100 WBCs. The reference range was not used to interpret this result as normal/abnormal. NRBC x10^3 (test code = 1306084105) See_Comment [Automated messa ge] The system which generated this result transmitted reference range: 10*3/?L. The reference range was not used to interpret this result as normal/abnormal. GRAN MAT (NEUT) % (test code = 770-8) 86.6 % IMM GRAN % (test code = 5415113913) 0.40 % LYMPH % (test code = 736-9) 7.5 % MONO % (test code = 5905-5) 4.9 % EOS % (test code = 713-8) 0.2 % BASO % (test code = 706-2) 0.4 % GRAN MAT x10^3(ANC) (test code = 9678030028) 7.75 10*3/uL 1.88-7.09 H IMM GRAN x10^3 (test code = 3525674414) 0.04 10*3/uL 0.00-0.06 LYMPH x10^3 (test code = 731-0) 0.67 10*3/uL 1.32-3.29 L MONO x10^3 (test code = 742-7) 0.44 10*3/uL 0.33-0.92 EOS x10^3 (test code = 711-2) 0.03-0.39 L BASO x10^3 (test code = 704-7) 0.04 10*3/uL 0.01-0.07 Lab Interpretation (test code = 08944-8) [facility]normal [facility]le[facility] [id number] 15:15:37* Test Item Value Reference Range Interpretation Comme nts TROPONIN I (test code = 9479241801) 0.002 ng/mL <=0.034 THEODORA (test code = THEODORA) Reference (Normal) Range (defined by the 99th percentile reference limit): <= 0.034 ng/mL Note: Cardiac troponin begins to rise 3-4 hours after the onset of ischemia. Repeat in 4-6 hours if the sample was drawn within 3-4 hours of the onset of the symptom and found normal. Diagnosis of myocardial injury is made with acute changes in cTn concentrations with at least one serial sample above the 99th percentile upper reference limit (URL), taken together with the patient's clinical presentation. Biotin has been reported to cause a negative bias, interpret results relative to patient's use of biotin. Lab Interpretation (test code = 23965-5) Normal [facility]le[facility] METABOLIC PANEL (42852)2023-09-15 15:15:32* Test Item Value Reference Range Interpretation Comme nts NA (test code = 9141113163) 136 mmol/L 135-145 K (test code = 9702172710) 3.5 mmol/L 3.5-5.0 CL (test code = 1100356536) 103 mmol/L 98-108 CO2 TOTAL (test code = 5349574924) 20 mmol/L 23-31 L AGAP (test code = 3487329511) 13 2-16 BUN (test code = 0204662488) 11 mg/dL 7-23 GLUCOSE (test code = 7831002230) 213 mg/dL 70-110 H CREATININE (test code = 1439665882) 0.40 mg/dL 0.50-1.04 L TOTAL BILI (test code = 1135770662) 0.6 mg/dL 0.1-1.1 CALCIUM (test code = 0228624808) 9.1 mg/dL 8.6-10.6 T PROTEIN (test code = 7364986112) 7.0 g/dL 6.3-8.2 ALBUMIN (test code = 6508108487) 3.9 g/dL 3.5-5.0 ALK PHOS (test code = 9152339027) 99 U/L 34-122 ALTv (test code = 1742-6) 73 U/L 5-35 H AST(SGOT) (test code = 8984170309) 45 U/L 13-40 H eGFR (test code = 04108-0) 123.0 mL/min/1.73m2 CKD-EPI eGFR (2020). Assuming creatinine has been stable day-to-day for at least three months, the eGFR indicates Category G1 (>= 90 mL/min/1.73 m2) Lab Interpretation (test code = 97682-8) [facility]normal [facility]le[facility] T[facility]-RCY7869-22-03 15:12:54* Test Item Value Reference Range Interpretation Comme nts NT-proBNP (test code = 10739-6) 1430 pg/mL <=125 H THEODORA (test code = THEODORA) Positive: Heart Failure Likely Lab Interpretation (test code = 03677-9) Abnormal [facility] WITH BAKS9045-95-41 14:52:53* Test Item Value Reference Range Interpretation Comme nts WBC (test code = 6690-2) 10.69 See_Comment [Automated messa ge] The system which generated this result transmitted reference range: 4.30 - 11.10 10*3/?L. The reference range was not used to interpret this result as normal/abnormal. RBC (test code = 789-8) 3.59 See_Comment L [Automated messa ge] The system which generated this result transmitted reference range: 3.93 - 5.25 10*6/?L. The reference range was not used to interpret this result as normal/abnormal. HGB (test code = 718-7) 10.8 g/dL 11.6-15.0 L HCT (test code = 4544-3) 33.5 % 35.7-45.2 L MCV (test code = 787-2) 93.3 fL 80.6-95.5 MCH (test code = 785-6) 30.1 pg 25.9-32.8 MCHC (test code = 786-4) 32.2 g/dL 31.6-35.1 RDW-SD (test code = 67163-8) 46.1 fL 39.0-49.9 RDW-CV (test code = 788-0) 13.5 % 12.0-15.5 PLT (test code = 777-3) 272 See_Comment [Automated E-Diversify Yourselfa ge] The system which generated this result transmitted reference range: 166 - 358 10*3/?L. The reference range was not used to interpret this result as normal/abnormal. MPV (test code = 60704-0) 10.6 fL 9.5-12.9 NRBC/100 WBC (test code = 9577874914) 0.0 See_Comment [Automated Lexim ssage] The system which generated this result transmitted reference range: 0.0 - 10.0 /100 WBCs. The reference range was not used to interpret this result as normal/abnormal. NRBC x10^3 (test code = 2759197252) See_Comment [Automated E-Diversify Yourself[employer] App] The system which generated this result transmitted reference range: 10*3/?L. The reference range was not used to interpret this result as normal/abnormal. GRAN MAT (NEUT) % (test code = 770-8) 82.1 % IMM GRAN % (test code = 3775328081) 0.50 % LYMPH % (test code = 736-9) 10.2 % MONO % (test code = 5905-5) 5.1 % EOS % (test code = 713-8) 1.5 % BASO % (test code = 706-2) 0.6 % GRAN MAT x10^3(ANC) (test code = 3612465389) 8.79 10*3/uL 1.88-7.09 H IMM GRAN x10^3 (test code = 8242009427) 0.05 10*3/uL 0.00-0.06 LYMPH x10^3 (test code = 731-0) 1.09 10*3/uL 1.32-3.29 L MONO x10^3 (test code = 742-7) 0.54 10*3/uL 0.33-0.92 EOS x10^3 (test code = 711-2) 0.16 10*3/uL 0.03-0.39 BASO x10^3 (test code = 704-7) 0.06 10*3/uL 0.01-0.07 Lab Interpretation (test code = 26416-5) [facility] [id number] 07:23:03Mild patchy groundglass attenuation in the right middle lobe, possiblyrepresenting a small focus ofaspiration or pneumonia. Stable bilateral adrenal nodules. Thickening of the wall of the descendingcolon, suggestive of colitis.Compared to the prior study, the extent of involvement is less pronounc ed,with primary involvement of the descending colon rather than pancolitis. RL: 460 AFC: [id number] Ordering physician: RUTH WATTS Indication: Diffuse abdominal pain, history of chronic pancreatitis,history of colitis COMPARISON: None TECHNIQUE: Axial images of the abdomen and pelvis are performed followingadministration of intravenous contrast material. Images were reformatted inthe coronal and sagittal plane. CT scan was performed according to ALARA(as low as reasonably achievable) policy. FINDINGS: There is mild patchygroundglass attenuation in the right middlelobe.. The liver, [...] uterus andovaries is within normal limits. There isthickening of the wall of thedescending colon. There [...] of the uterus andovaries is within normal limit s. There is thickening of the wall of [...] the descending colon rather than pancolitis.RL: 460AFC: [id number] [facility] 1 [id number] 06:37:24Impression: Mild cardiomegaly without acute pulmonary process. RL: 460 AFC: [id number] Ordering physician: RUTH WATTS Indication: Shortness of breath Comparison: None Findings: Single AP view of the chest. The cardiopericardialsilhouette ismildly enlarged. The lungs are clear bilaterally. The visualized bonythorax is intact.[facility], Radiant Results Inft User - 04/30/2021 1:38 AM CDT Ordering physician: RUTH WATTSIndication: Shortness of breathComparison: NoneFindings: Single AP view of the chest. The cardiopericardial silhouette ismildly enlarged. The lungsare clear bilaterally. The visualized bonythorax is intact.IMPRESSIONImpression:Mild cardiomegaly wi thout acute pulmonary process.RL: 460AFC: [id number] signed by Alexsandra Suazo MD, PhD at 04/30/2021 1:37 AMUnSur[facility] of [facility] [id number] 05:55:52* Test Item Value Reference Range Interpretation Comme nts TROPONIN I (test code = 9949229336) 0.004 ng/mL See_Comment [Automated message] The system which generated this result transmitted reference range: <=0.034. The reference range was not used to interpret this result as normal/abnormal. THEODORA (test code = THEODORA) Equal or [...] use of biotin. ? Lab Interpretation (test code = 49361-3) Normal [facility]. METABOLIC PANEL (97984)2021-04-30 05:55:07* Test Item Value Reference Range Interpretation Comme nts NA (test code = 1578930506) 135 mmol/L 135-145 K (test code = 3798820723) 3.6 mmol/L 3.5-5.0 CL (test code = 1646066485) 103 mmol/L 98-108 CO2 TOTAL (test code = 9448065078) 27 mmol/L 23-31 AGAP (test code = 0581107262) 2-16 BUN (test code = 9768993115) 11 mg/dL 7-23 GLUCOSE (test code = 9874890083) 80 mg/dL 70-110 CREATININE (test code = 1979638650) 0.42 mg/dL 0.50-1.04 L TOTAL BILI (test code = 3515502245) 0.7 mg/dL 0.1-1.1 CALCIUM (test code = 3853933733) 10.0 mg/dL 8.6-10.6 T PROTEIN (test code = 1080323786) 7.4 g/dL 6.3-8.2 ALBUMIN (test code = 1448685895) 4.2 g/dL 3.5-5.0 ALK PHOS (test code = 0460203806) 80 U/L 34-122 ALTv (test code = 1742-6) 19 U/L 5-35 AST(SGOT) (test code = 7634618818) 45 U/L 13-40 H eGFR (test code = 2460882322) mL/min/1.73m2 THEODORA (test code = THEODORA) Association of [...] or abnormalities in imaging tests). Lab Interpretation (test code = 90560-4) [facility] 05:44:12* Test Item Value Reference Range Interpretation Comme nts LIPASE (test code = 5314975785) 39 U/L 0-220 Lab Interpretation (test cod e = 89761-5) Normal [facility] (ID NOW RAPID TESTING)2021-04-30 05:36:54* Test Item Value Reference Range Interpretation Comme nts SARS-CoV-2 Rapid ID NOW (test code = 12814-3) Not Detected Not Detected THEODORA (test code = THEODORA) ID NOW COVID-19 As say is an isothermal nucleic acid amplification test intended for the qualitative detection of nucleic acid from SARS-CoV-2 viral RNA in nasopharyngeal (GEOSCIENTIST) specimens. It is used under Emergency Use [...] patient testing if clinically indicated. Lab Interpretation (test code = 78893-7) Normal [facility] WITH [id number] 05:21:49* Test Item Value Reference Range Interpretation Comme nts WBC (test code = 6690-2) See_Comment H [Automated message] The system which generated this result transmitted reference range: 4.30 - 11.10 10*3/?L. The reference range was not used to interpret this result as normal/abnormal. RBC (test code = 789-8) See_Comment [Automated message] The system which generated this result transmitted reference range: 3.93 - 5.25 10*6/?L. The reference range was not used to interpret this result as normal/abnormal. HGB (test code = 718-7) 12.0 g/dL 11.6-15.0 HCT (test code = 4544-3) 36.6 % 35.7-45.2 MCV (test code = 787-2) 89.1 fL 80.6-95.5 MCH (test code = 785-6) 29.2 pg 25.9-32.8 MCHC (test code = 786-4) 32.8 g/dL 31.6-35.1 RDW-SD (test code = 86836-1) 54.4 fL 39.0-49.9 H RDW-CV (test code = 788-0) 16.7 % 12.0-15.5 H PLT (test code = 777-3) See_Comment [Automated message] The system which generated this result transmitted reference range: 166 - 358 10*3/?L. The reference range was not used to interpret this result as normal/abnormal. MPV (test code = 39047-5) 9.9 fL 9.5-12.9 NRBC/100 WBC (test code = 5851985751) See_Comment [Automated message] The system which generated this result transmitted reference range: 0.0 - 10.0 /100 WBCs. The reference range was not used to interpret this result as normal/abnormal. NRBC x10^3 (test code = 5067712282) <0.01 See_Comment [Automated message] The system which generated this result transmitted reference range: 10*3/?L. The reference range was not used to interpret this result as normal/abnormal. GRAN MAT (NEUT) % (test code = 770-8) 75.0 % IMM GRAN % (test code = 6030972667) 1.00 % LYMPH % (test code = 736-9) 15.7 % MONO % (test code = 5905-5) 6.6 % EOS % (test code = 713-8) 1.2 % BASO % (test code = 706-2) 0.5 % GRAN MAT x10^3(ANC) (test code = 0937673813) 12.35 10*3/uL 1.88-7.09 H IMM GRAN x10^3 (test code = 9382117088) 0.16 10*3/uL 0.00-0.06 H LYMPH x10^3 (test code = 731-0) 2.58 10*3/uL 1.32-3.29 MONO x10^3 (test code = 742-7) 1.09 10*3/uL 0.33-0.92 H EOS x10^3 (test code = 711-2) 0.20 10*3/uL 0.03-0.39 BASO x10^3 (test code = 704-7) 0.09 10*3/uL 0.01-0.07 H Lab Interpretation (test code = 60091-5) Abnormal [facility] METABOLIC PANEL (NA, K, CL, CO2, GLUCOSE, BUN, CREATININE, CA)2021-04-20 09:57:13* Test Item Value Reference Range Interpretation Comme nts NA (test code = 6205994778) 139 mmol/L 135-145 K (test code = 2952682118) 3.9 mmol/L 3.5-5.0 CL (test code = 4922127207) 107 mmol/L 98-108 CO2 TOTAL (test code = 6688788928) 25 mmol/L 23-31 AGAP (test code = 5094643295) 2-16 BUN (test code = 3063910202) 4 mg/dL 7-23 L GLUCOSE (test code = 5915962944) 93 mg/dL 70-110 CREATININE (test code = 4632199275) 0.47 mg/dL 0.50-1.04 L CALCIUM (test code = 2415440640) 10.1 mg/dL 8.6-10.6 eGFR (test code = 1406045719) mL/min/1.73m2 THEODORA (test code = THEODORA) Association of [...] or abnormalities in imaging tests). Lab Interpretation (test code = 66516-2) [facility]normal [facility]leMAGNESIUM2021-06-08 09:57:13* Test Item Value Reference Range Interpretation Comme nts MAGNESIUM (test code = 7474543305) 1.8 mg/dL 1.7-2.4 Lab Interpretation (test cod e = 67965-7) Normal [facility]21-[facility] 09:56:32* Test Item Value Reference Range Interpretation Comme nts LIPASE (test code = 1789321732) 21 U/L 0-220 Lab Interpretation (test cod e = 84890-4) Normal [facility] WITH [id number] 09:36:49* Test Item Value Reference Range Interpretation Comme nts WBC (test code = 6690-2) See_Comment H [Automated messa ge] The system which generated this result transmitted reference range: 4.30 - 11.10 10*3/?L. The reference range was not used to interpret this result as normal/abnormal. RBC (test code = 789-8) See_Comment [Automated E-Diversify Yourselfa ge] The system which generated this result transmitted reference range: 3.93 - 5.25 10*6/?L. The reference range was not used to interpret this result as normal/abnormal. HGB (test code = 718-7) 12.7 g/dL 11.6-15.0 HCT (test code = 4544-3) 39.4 % 35.7-45.2 MCV (test code = 787-2) 89.3 fL 80.6-95.5 MCH (test code = 785-6) 28.8 pg 25.9-32.8 MCHC (test code = 786-4) 32.2 g/dL 31.6-35.1 RDW-SD (test code = 70494-3) 55.2 fL 39.0-49.9 H RDW-CV (test code = 788-0) 16.8 % 12.0-15.5 H PLT (test code = 777-3) See_Comment [Automated E-Diversify Yourselfa ge] The system which generated this result transmitted reference range: 166 - 358 10*3/?L. The reference range was not used to interpret this result as normal/abnormal. MPV (test code = 60164-6) 11.0 fL 9.5-12.9 NRBC/100 WBC (test code = 0381422370) See_Comment [Automated Lexim ssage] The system which generated this result transmitted reference range: 0.0 - 10.0 /100 WBCs. The reference range was not used to interpret this result as normal/abnormal. NRBC x10^3 (test code = 5836068472) <0.01 See_Comment [Automated E-Diversify Yourselfa ge] The system which generated this result transmitted reference range: 10*3/?L. The reference range was not used to interpret this result as normal/abnormal. GRAN MAT (NEUT) % (test code = 770-8) 72.1 % IMM GRAN % (test code = 9496618134) 0.70 % LYMPH % (test code = 736-9) 18.5 % MONO % (test code = 5905-5) 6.9 % EOS % (test code = 713-8) 1.2 % BASO % (test code = 706-2) 0.6 % GRAN MAT x10^3(ANC) (test code = 0768372803) 9.92 10*3/uL 1.88-7.09 H IMM GRAN x10^3 (test code = 2589787139) 0.10 10*3/uL 0.00-0.06 H LYMPH x10^3 (test code = 731-0) 2.55 10*3/uL 1.32-3.29 MONO x10^3 (test code = 742-7) 0.95 10*3/uL 0.33-0.92 H EOS x10^3 (test code = 711-2) 0.16 10*3/uL 0.03-0.39 BASO x10^3 (test code = 704-7) 0.08 10*3/uL 0.01-0.07 H Lab Interpretation (test code = 33671-6) Abnormal [facility]leFECAL [id number] 20:28:26* Test Item Value Reference Range Interpretation Comme nts Fecal Leukocytes (test code = 7733779597) Negative Negative Lab Interpretation (test cod e = 88609-6) Normal [facility]le[facility] ONLY COVID [id number] 17:28:19COVID DMT InterpretationInterpretation/Recommendations: Molecular NAAT Tests for [...] Tests for IgM and/or IgG Antibodies to the SARS-CoV-2 Virus: If the patient develops COVID-19 illness in the future, testing for IgM and IgG antibodies approximately 3 weeks [...] COVID-19 testing the patient has had at [facility], including molecular NAAT testing (more commonly known as PCR testing and Rapid ID Now testing) and antibody testing. It does not take into account any testing that a patient has had outside of the [facility] medical record. [facility] LABORATORY SERVICESCOVID FxbtblaBJTK-KhA-8 Rapid ID NOW (no units) ? ? Date ? Value ? 04/18/2021 ? Not Detected ? ? ? 03/07/2021 ? Not Detected ? ? ? 01/22/2021 ? Not Detected ? ? ? 10/28/2020 ? Not Detected ? ? ? 09/28/2020 ? Not Detected ? ? ? 08/03/2020 ? Not Detected ? ? ? 05/21/2020 ? Not Detec carrie ? ? ? 05/16/2020 ? Not Detected ? ? ? 04/05/2020 ? Not Detected ? ? ? 03/02/2020 ? Not Detected ? [facility]ORATORY SERVICESTexas [facility] AzleUrine Dehdlgg1503-34-16 16:27:48* Test Item Value Reference Range Interpretation Comme nts URINE CULTURE (test code = 630-4) No aerobic growth (< 1000 CFU/mL) [facility] Metabolic Panel (NA, K, CL, CO2, GLUCOSE, BUN, CREATININE, CA)2021-04-19 10:41:34* Test Item Value Reference Range Interpretation Comme nts NA (test code = 4832996731) 141 mmol/L 135-145 K (test code = 0002011353) 3.9 mmol/L 3.5-5.0 CL (test code = 2867020867) 109 mmol/L 98-108 H CO2 TOTAL (test code = 8441593294) 24 mmol/L 23-31 AGAP (test code = 6454474548) 2-16 BUN (test code = 2454559198) 8 mg/dL 7-23 GLUCOSE (test code = 7753225009) 99 mg/dL 70-110 CREATININE (test code = 9816917243) 0.49 mg/dL 0.50-1.04 L CALCIUM (test code = 8166280597) 10.5 mg/dL 8.6-10.6 eGFR (test code = 1724020688) mL/min/1.73m2 THEODORA (test code = THEODORA) Association of [...] or abnormalities in imaging tests). Lab Interpretation (test code = 09139-1) Abnormal [facility] AzleMagnesium Tegbk1341-27-51 10:23:08* Test Item Value Reference Range Interpretation Comme nts MAGNESIUM (test code = 4304846685) 1.9 mg/dL 1.7-2.4 Lab Interpretation (test cod e = 34358-6) Normal [facility] with Nvxrlrzsrpvl3606-57-16 09:34:01* Test Item Value Reference Range Interpretation Comme nts WBC (test code = 6690-2) See_Comment H [Automated message] The system which generated this result transmitted reference range: 4.30 - 11.10 10*3/?L. The reference range was not used to interpret this result as normal/abnormal. RBC (test code = 789-8) See_Comment [Automated message] The system which generated this result transmitted reference range: 3.93 - 5.25 10*6/?L. The reference range was not used to interpret this result as normal/abnormal. HGB (test code = 718-7) 14.4 g/dL 11.6-15.0 HCT (test code = 4544-3) 44.0 % 35.7-45.2 MCV (test code = 787-2) 89.4 fL 80.6-95.5 MCH (test code = 785-6) 29.3 pg 25.9-32.8 MCHC (test code = 786-4) 32.7 g/dL 31.6-35.1 RDW-SD (test code = 48173-6) 56.8 fL 39.0-49.9 H RDW-CV (test code = 788-0) 17.5 % 12.0-15.5 H PLT (test code = 777-3) See_Comment [Automated message] The system which generated this result transmitted reference range: 166 - 358 10*3/?L. The reference range was not used to interpret this result as normal/abnormal. MPV (test code = 82822-2) 10.5 fL 9.5-12.9 NRBC/100 WBC (test code = 4947875222) See_Comment [Automated message] The system which generated this result transmitted reference range: 0.0 - 10.0 /100 WBCs. The reference range was not used to interpret this result as normal/abnormal. NRBC x10^3 (test code = 9739102379) <0.01 See_Comment [Automated message] The system which generated this result transmitted reference range: 10*3/?L. The reference range was not used to interpret this result as normal/abnormal. GRAN MAT (NEUT) % (test code = 770-8) 76.6 % IMM GRAN % (test code = 1542223686) 0.50 % LYMPH % (test code = 736-9) 15.7 % MONO % (test code = 5905-5) 6.1 % EOS % (test code = 713-8) 0.7 % BASO % (test code = 706-2) 0.4 % GRAN MAT x10^3(ANC) (test code = 6435112802) 11.95 10*3/uL 1.88-7.09 H IMM GRAN x10^3 (test code = 6665901242) 0.08 10*3/uL 0.00-0.06 H LYMPH x10^3 (test code = 731-0) 2.46 10*3/uL 1.32-3.29 MONO x10^3 (test code = 742-7) 0.96 10*3/uL 0.33-0.92 H EOS x10^3 (test code = 711-2) 0.11 10*3/uL 0.03-0.39 BASO x10^3 (test code = 704-7) 0.06 10*3/uL 0.01-0.07 Lab Interpretation (test code = 06339-1) [facility]normal [facility]lePROCALCITONIN2021-06-07 06:16:05* Test Item Value Reference Range Interpretation Comme nts Procalcitonin (test code = 3634176264) 0.02 ng/mL <0.07 THEODORA (test code = THEODORA) INTERPRETATION OF [...] lung abscess/empyema. For further information please refer to:[email or web address] Lab Interpretation (test code = 50273-2) Normal [facility] AzlePhosphorus Vrsci0754-58-46 22:28:07* Test Item Value Reference Range Interpretation Comme nts PHOSPHORUS (test code = 3732246853) 2.2 mg/dL 2.5-5.0 L Lab Interpretation (test cod e = 57019-6) Abnormal [facility] AzleLactic Acid Whole Vmvup7120-86-05 22:19:30* Test Item Value Reference Range Interpretation Comme nts LACTIC ACID (test code = 9118550356) 1.43 mmol/L 0.50-2.20 Lab Interpretation (test cod e = 94812-4) Normal [facility]leCT ABDOMEN PELVIS W [id number] 20:19:241. ?No acute intra-abdominal abnormality. 2. ?Similar appearance [...] years-old Female with Nausea/vomiting Abdominal pain, acute,nonlocalized . COMPARISON: CT abdomen pelvis with IV contrast 03/07/2021, 01/22/2021. TECHNIQUE AND FINDINGS: Contiguous axial imaging from the level of the lungbases through the pubic symphysis was performed after the administration ofintravenous nonionic iodinated contrast. Abdomen was scanned in venousphase. Corresponding coronal and sagittal MPR reconstructions wereobtained. ?Auto mA and/or iterative reconstruction were used to reduceradiation dose. FINDINGS: LOWER THORAX: Redemonstration of nonspecific groundglass attenuation in thebilateral lung bases. Calcified granuloma seen in the right upper lobe.Trace streaky bibasilar atelectasis. No pleural or pericardial effusionsare visualized. LIVER: The liver has normalparenchyma and contour. No focal hepatic lesionis seen within the limits of a single phase CT. The portal veins arepatent. GALLBLADDER AND BILIARY TREE: The gallbladder is unremarkable. There is nointra or extrahepatic biliary ductal dilation. SPLEEN: The spleen enhances normally. PANCREAS: The pancreas enhances normally without ductal dilation. ADRENAL GLANDS: Redemonstration of 1.5 cm right and2.2 cm leftindeterminate attenuation adrenal nodules and appear [...] the pancreas,previously 1.5 cm (2:46) as well as1.1 cm mesenteric structure, previously1.4 cm (2:59). GI TRACT: Largely similar appearance of prominent gastric folds andcircumferential thickening of the distal stomach as well as persistentthickening of a moderate length of sigmoid and descending colon. Tracediverticulosis of the distal sigmoid colon is seen without evidence ofdiverticulitis. The appendix is unremarkable.. PELVIS/BLADDER: The urinary bladder is unremarkable. The uterus andbilateral ovaries are unremarkable. VESSELS: Unremarkable. BONES AND SOFT TISSUES: No suspicious lytic or sclerotic bony lesions.Intramedullary nail excision is partially seen at the left femur. [facility], Radiant Results Inft User - 04/18/2021 3:20 [...] AND RETROPERITONEUM: No free air or free fluid.ABDOMINALWALL: Unremarkable.LYMPH NODES: Slight improvement in nodular densities [...] lytic or sclerotic bony lesions.Intramedullary nail excision ispartially seen at the left femur.IMPRESSION1. No acute intra-abdominal abnormality.2. Similar appear ance of prominent gastric folds at the gastricantrum/pylorus as well as prominent colonic thickening at the distaldescending and sigmoid colon.3. Stable appearance of indeterminate adrenal nodules and groundglassopacities at the bilateral lungs.Preliminary Report Dictated by Resident: Javi Karimi MD., have reviewed this study and agree with theabove report. [facility] AzleETHANOL2021-06-06 18:13:26* Test Item Value Reference Range Interpretation Comme nts ALCOHOL (test code = 4398205730) <10 mg/dL THEODORA (test code = THEODORA) <10 Squsucks46-014 Toxic>100 Depression of DINKEY ENGINEER>400 Fatalities Reported [facility] AzleDRUG SCREEN PANEL 2 [id number] 17:54:21* Test Item Value Reference Range Interpretation Comme nts AMPHET (test code = 1852380143) Negative Negative KOTA U (test code = 0623025359) Negative Negative BENZO U (test code = 1391916358) Presumptive Positive Negative A Cocaine Metabolite (test code = 4102643316) Negative Negative METHADONE (test code = 0586726133) Negative Negative OPIATES (test code = 8833802213) Presumptive Positive Negative A PCP (test code = 5330388290) Negative Negative THC (test code = 2211274868) Presumptive Positive Negative A THEODORA (test code = THEODORA) Urine Drug [...] employment testing, legal testing). Lab Interpretation (test code = 01945-1) Abnormal [facility] AzleLactic Acid Whole Igsiy7264-22-44 17:37:56* Test Item Value Reference Range Interpretation Comme nts LACTIC ACID (test code = 7854430436) 3.24 mmol/L 0.50-2.20 H Lab Interpretation (test cod e = 73270-0) Abnormal [facility] AzleUrinalysis2021-06-06 17:09:41* Test Item Value Reference Range Interpretation Comme nts APPEARANCE (test code = 9513381398) Hazy Clear A COLOR (test code = 7010894341) Yellow Yellow PH (test code = 2954631750) 4.8-8.0 A SP GRAVITY (test code = 2164301467) 1.003-1.030 GLU U QUAL (test code = 2187633435) 50 mg/dL Normal A BLOOD (test code = 2678792574) Negative Negative KETONES (test code = 2712725156) 5 mg/dL Negative A PROTEIN (test code = 2887-8) 30 mg/dL Negative A UROBILIN (test code = 4545762832) Normal Normal BILIRUBIN (test code = 6270862509) Negative Negative NITRITE (test code = 3536597189) Negative Negative LEUK BIRDIE (test code = 8034470499) Negative Negative RBC/HPF (test code = 4079846155) See_Comment H [Automated messa ge] The system which generated this result transmitted reference range: 0 - 3 HPF. The reference range was not used to interpret this result as normal/abnormal. WBC/HPF (test code = 8765549164) See_Comment H [Automated messa ge] The system which generated this result transmitted reference range: 0 - 5 HPF. The reference range was not used to interpret this result as normal/abnormal. BACTERIA (test code = 2362952431) Many Negative A MUCOUS (test code = 3583700782) Slight Negative LPF A SQ EPITH (test code = 4362868529) HPF Lab Interpretation (test code = 86756-6) [facility]normal [facility]leCOVID[facility] (ID NOW RAPID TESTING)2021-04-18 16:52:35* Test Item Value Reference Range Interpretation Comme nts SARS-CoV-2 Rapid ID NOW (test code = 10320-4) Not Detected Not Detected THEODORA (test code = THEODORA) ID NOW COVID-19 As say is an isothermal nucleic acid amplification test intended for the qualitative detection of nucleic acid from SARS-CoV-2 viral RNA in nasopharyngeal (GEOSCIENTIST) specimens. It is used under Emergency Use [...] patient testing if clinically indicated. Lab Interpretation (test code = 26182-8) Normal [facility] AzlePOCT NFJP9190-70-21 16:45:00* Test Item Value Reference Range Interpretation Comme nts POCT PREG (test code = 1605) negative On board controls acceptable with C Line (test code = 3574) present POCT PREG LOT # (test code = 3575) [id number] POCT PREG TEST DATE ( test code = 3576) 10/12/2022 Lab Interpretation (test cod e = 54008-8) Normal [facility] with Srjyxinzvwse9844-16-08 16:36:18* Test Item Value Reference Range Interpretation Comme nts WBC (test code = 6690-2) See_Comment H [Automated message] The system which generated this result transmitted reference range: 4.30 - 11.10 10*3/?L. The reference range was not used to interpret this result as normal/abnormal. RBC (test code = 789-8) See_Comment [Automated message] The system which generated this result transmitted reference range: 3.93 - 5.25 10*6/?L. The reference range was not used to interpret this result as normal/abnormal. HGB (test code = 718-7) 14.4 g/dL 11.6-15.0 HCT (test code = 4544-3) 43.6 % 35.7-45.2 MCV (test code = 787-2) 87.9 fL 80.6-95.5 MCH (test code = 785-6) 29.0 pg 25.9-32.8 MCHC (test code = 786-4) 33.0 g/dL 31.6-35.1 RDW-SD (test code = 97244-5) 53.9 fL 39.0-49.9 H RDW-CV (test code = 788-0) 16.7 % 12.0-15.5 H PLT (test code = 777-3) See_Comment [Automated message] The system which generated this result transmitted reference range: 166 - 358 10*3/?L. The reference range was not used to interpret this result as normal/abnormal. MPV (test code = 50977-6) 10.7 fL 9.5-12.9 NRBC/100 WBC (test code = 9238403537) See_Comment [Automated message] The system which generated this result transmitted reference range: 0.0 - 10.0 /100 WBCs. The reference range was not used to interpret this result as normal/abnormal. NRBC x10^3 (test code = 1337685485) <0.01 See_Comment [Automated message] The system which generated this result transmitted reference range: 10*3/?L. The reference range was not used to interpret this result as normal/abnormal. GRAN MAT (NEUT) % (test code = 770-8) 91.6 % IMM GRAN % (test code = 9036449150) 0.70 % LYMPH % (test code = 736-9) 4.0 % MONO % (test code = 5905-5) 3.3 % EOS % (test code = 713-8) 0.0 % BASO % (test code = 706-2) 0.4 % GRAN MAT x10^3(ANC) (test code = 4599838214) 22.53 10*3/uL 1.88-7.09 H IMM GRAN x10^3 (test code = 1615297104) 0.16 10*3/uL 0.00-0.06 H LYMPH x10^3 (test code = 731-0) 0.99 10*3/uL 1.32-3.29 L MONO x10^3 (test code = 742-7) 0.80 10*3/uL 0.33-0.92 EOS x10^3 (test code = 711-2) <0.03 0.03-0.39 L BASO x10^3 (test code = 704-7) 0.09 10*3/uL 0.01-0.07 H Lab Interpretation (test code = 57753-8) [facility] ([facility]806[facility]2021-[facility]-18 16:14:51* Test Item Value Reference Range Interpretation Comme nts NA (test code = 5769133573) 140 mmol/L 135-145 K (test code = 1761294653) 3.2 mmol/L 3.5-5.0 L CL (test code = 7904255193) 105 mmol/L 98-108 CO2 TOTAL (test code = 2720089091) 23 mmol/L 23-31 AGAP (test code = 8948322029) 2-16 BUN (test code = 2667138312) 17 mg/dL 7-23 GLUCOSE (test code = 1699931010) 178 mg/dL 70-110 H CREATININE (test code = 4868572680) 0.60 mg/dL 0.50-1.04 TOTAL BILI (test code = 1473446394) 0.9 mg/dL 0.1-1.1 CALCIUM (test code = 8249373025) 10.7 mg/dL 8.6-10.6 H T PROTEIN (test code = 9945053086) 8.3 g/dL 6.3-8.2 H ALBUMIN (test code = 9952221791) 4.8 g/dL 3.5-5.0 ALK PHOS (test code = 4748565867) 129 U/L 34-122 H ALTv (test code = 1742-6) 23 U/L 5-35 AST(SGOT) (test code = 3527144294) 36 U/L 13-40 eGFR (test code = 3939185290) mL/min/1.73m2 THEODORA (test code = THEODORA) Association of [...] or abnormalities in imaging tests). Lab Interpretation (test code = 58966-1) [facility]normal [facility] 16:14:31* Test Item Value Reference Range Interpretation Comme nts LIPASE (test code = 6468703962) 33 U/L 0-220 Lab Interpretation (test cod e = 72811-1) Normal [facility] WITH KWRQ7830-52-63 09:40:02* Test Item Value Reference Range Interpretation Comme nts WBC (test code = 6690-2) See_Comment [Automated [employer]] The system which generated this result transmitted reference range: 4.30 - 11.10 10*3/?L. The reference range was not used to interpret this result as normal/abnormal. RBC (test code = 789-8) See_Comment [Automated [employer]] The system which generated this result transmitted reference range: 3.93 - 5.25 10*6/?L. The reference range was not used to interpret this result as normal/abnormal. HGB (test code = 718-7) 11.3 g/dL 11.6-15.0 L HCT (test code = 4544-3) 35.4 % 35.7-45.2 L MCV (test code = 787-2) 89.6 fL 80.6-95.5 MCH (test code = 785-6) 28.6 pg 25.9-32.8 MCHC (test code = 786-4) 31.9 g/dL 31.6-35.1 RDW-SD (test code = 32358-8) 50.4 fL 39.0-49.9 H RDW-CV (test code = 788-0) 15.2 % 12.0-15.5 PLT (test code = 777-3) See_Comment [Automated messa ge] The system which generated this result transmitted reference range: 166 - 358 10*3/?L. The reference range was not used to interpret this result as normal/abnormal. MPV (test code = 69139-3) 10.2 fL 9.5-12.9 NRBC/100 WBC (test code = 7212785294) See_Comment [Automated Lexim ssage] The system which generated this result transmitted reference range: 0.0 - 10.0 /100 WBCs. The reference range was not used to interpret this result as normal/abnormal. NRBC x10^3 (test code = 0992024465) <0.01 See_Comment [Automated E-Diversify Yourselfa ge] The system which generated this result transmitted reference range: 10*3/?L. The reference range was not used to interpret this result as normal/abnormal. GRAN MAT (NEUT) % (test code = 770-8) 76.3 % IMM GRAN % (test code = 9578498187) 0.70 % LYMPH % (test code = 736-9) 14.3 % MONO % (test code = 5905-5) 6.6 % EOS % (test code = 713-8) 1.6 % BASO % (test code = 706-2) 0.5 % GRAN MAT x10^3(ANC) (test code = 6838607752) 7.04 10*3/uL 1.88-7.09 IMM GRAN x10^3 (test code = 5032318252) 0.06 10*3/uL 0.00-0.06 LYMPH x10^3 (test code = 731-0) 1.32 10*3/uL 1.32-3.29 MONO x10^3 (test code = 742-7) 0.61 10*3/uL 0.33-0.92 EOS x10^3 (test code = 711-2) 0.15 10*3/uL 0.03-0.39 BASO x10^3 (test code = 704-7) 0.05 10*3/uL 0.01-0.07 Lab Interpretation (test code = 59294-2) Abnormal [facility] Metabolic Panel (NA, K, CL, CO2, GLUCOSE, BUN, CREATININE, CA)2021-03-08 11:47:33* Test Item Value Reference Range Interpretation Comme nts NA (test code = 2454195171) 138 mmol/L 135-145 K (test code = 0721044604) 3.6 mmol/L 3.5-5.0 CL (test code = 8803918510) 109 mmol/L 98-108 H CO2 TOTAL (test code = 6039062208) 22 mmol/L 23-31 L AGAP (test code = 1111810181) 2-16 BUN (test code = 8612434358) 7 mg/dL 7-23 GLUCOSE (test code = 3694949037) 96 mg/dL 70-110 CREATININE (test code = 4658661704) 0.44 mg/dL 0.50-1.04 L CALCIUM (test code = 0654754290) 9.2 mg/dL 8.6-10.6 eGFR (test code = 7094419678) mL/min/1.73m2 THEODORA (test code = THEODORA) Association of [...] or abnormalities in imaging tests). Lab Interpretation (test code = 10847-1) Abnormal [facility] with Pndaigxgjrfe9186-05-47 10:40:46* Test Item Value Reference Range Interpretation Comme nts WBC (test code = 6690-2) See_Comment H [Automated message] The system which generated this result transmitted reference range: 4.30 - 11.10 10*3/?L. The reference range was not used to interpret this result as normal/abnormal. RBC (test code = 789-8) See_Comment [Automated message] The system which generated this result transmitted reference range: 3.93 - 5.25 10*6/?L. The reference range was not used to interpret this result as normal/abnormal. HGB (test code = 718-7) 11.9 g/dL 11.6-15.0 HCT (test code = 4544-3) 35.8 % 35.7-45.2 MCV (test code = 787-2) 88.4 fL 80.6-95.5 MCH (test code = 785-6) 29.4 pg 25.9-32.8 MCHC (test code = 786-4) 33.2 g/dL 31.6-35.1 RDW-SD (test code = 81688-1) 51.5 fL 39.0-49.9 H RDW-CV (test code = 788-0) 15.9 % 12.0-15.5 H PLT (test code = 777-3) See_Comment [Automated message] The system which generated this result transmitted reference range: 166 - 358 10*3/?L. The reference range was not used to interpret this result as normal/abnormal. MPV (test code = 34172-2) 10.5 fL 9.5-12.9 NRBC/100 WBC (test code = 5958934452) See_Comment [Automated message] The system which generated this result transmitted reference range: 0.0 - 10.0 /100 WBCs. The reference range was not used to interpret this result as normal/abnormal. NRBC x10^3 (test code = 5439297223) <0.01 See_Comment [Automated message] The system which generated this result transmitted reference range: 10*3/?L. The reference range was not used to interpret this result as normal/abnormal. GRAN MAT (NEUT) % (test code = 770-8) 83.9 % IMM GRAN % (test code = 6185586855) 0.50 % LYMPH % (test code = 736-9) 8.9 % MONO % (test code = 5905-5) 6.1 % EOS % (test code = 713-8) 0.3 % BASO % (test code = 706-2) 0.3 % GRAN MAT x10^3(ANC) (test code = 8811641550) 14.15 10*3/uL 1.88-7.09 H IMM GRAN x10^3 (test code = 0485029586) 0.08 10*3/uL 0.00-0.06 H LYMPH x10^3 (test code = 731-0) 1.50 10*3/uL 1.32-3.29 MONO x10^3 (test code = 742-7) 1.03 10*3/uL 0.33-0.92 H EOS x10^3 (test code = 711-2) 0.05 10*3/uL 0.03-0.39 BASO x10^3 (test code = 704-7) 0.05 10*3/uL 0.01-0.07 Lab Interpretation (test code = 68848-2) [facility] Zbmhc7373-94-18 10:04:06* Test Item Value Reference Range Interpretation Comme nts LACTIC ACID (test code = 7661135217) 0.84 mmol/L 0.50-2.20 Lab Interpretation (test cod e = 42403-9) Normal [facility]le[facility] Whole Ngyau6402-63-14 22:58:14* Test Item Value Reference Range Interpretation Comme nts LACTIC ACID (test code = 6067896366) 3.09 mmol/L 0.50-2.20 H Lab Interpretation (test cod e = 71049-4) Abnormal [facility]le[facility], [id number] 19:53:09* Test Item Value Reference Range Interpretation Comme nts PREG URINE (test code = 8466796138) Negative THEODORA (test code = THEODORA) Less than 20 IU/L. ?If low titer or ectopic is suspected, resubmit specimen in 48-72 hours. [facility]IMMUNOASSAY) - 4 ER PANEL 2021-03-07 19:14:30* Test Item Value Reference Range Interpretation Comme nts AMPHET (test code = 5215619386) Negative Negative Cocaine Metabolite (test code = 1060129063) Negative Negative OPIATES (test code = 4056714373) Presumptive Positive Negative A THC (test code = 5349538617) Presumptive Positive Negative A THEODORA (test code = THEODORA) Urine Drug Cutoff Ranges Amphetamine: ? 1,000 ng/mLCocaine: ? 150 ng/mLOpiates: ? 300 ng/mLCannabinoids: ?50 ng/mL The results are to be used only for medical (i.e., treatment) purposes. Unconfirmed screening results must not be used for non-medical purposes (e.g., employment testing, legal testing). Lab Interpretation (test code = 48888-4) [facility]normal [facility] PEL[facility] W [id number] 18:15:36Wall thickening of the distal descending colon and sigmoid colon suspiciousfor infectious or inflammatory colitis. Scattered colonic diverticulosis. Redemonstration of bilateral adrenal nodules. RL: 5045 AFC: [id number] End of report Ordering physician:COOPER MCNEIL CLINICAL HISTORY: Abdominal abscess/infection suspected Concern fornecrotizing pancreatitis TECHNIQUE: Contrast enhanced CT images were obtained through the abdomenand pelvis with IV contrast. ?Coronal and sagittal reformats were alsoobtained. [...] acute osseous abnormality. Postsurgical changes of the leftfemur. [facility], Radiant Results Inft User - 03/07/2021 1:16 PM CDTOrdering physician:COOPER MCNEILCLINICAL HISTORY: Abdominal abscess/infection suspected Concern fornecrotizing pancreatitisTECHNIQUE: Contrast enhanced CT images were obtained through the abdomenand pelvis with IV contrast. Coronal andsagittal reformats were alsoobtained. ALARA (As Low As Reasonably Achievable) principles was usedduring this examination.COMPARISON: 01/22/2021FINDINGS:The lung bases are clear bilaterally. The liver,spleen, gallbladder, pancreas, and kidneys are unremarkable.Redemonstration of bilateral adrenal nodules.No evidence of obstruction. There is wall thickening of the distaldescending colon and sigmoid colon. Scattered colonic diverticuli.Unremarkable appendix.No free fluid or adenopathy is demonstrated in the abdomen or pelvis. Noevidence of free air.The urinary bladder is unremarkable. The uterusis unremarkable.The aortoiliac vessels are normal caliber. Minimal atheroscleroticcalcifications.Noacute osseous abnormality. Postsurgical changes of the left femur.IMPRESSIONWall thickening of the distal descending colon and sigmoid colon suspiciousfor infectious or inflammatory colitis.Scatteredcolonic diverticulosis.Redemonstration of bilateral adrenal nodules.RL: 5045AFC: [id number] End of report [facility]leL[facility] Whole Pshbg5273-23-32 17:41:23* Test Item Value Reference Range Interpretation Comme nts LACTIC ACID (test code = 6025681845) 3.59 mmol/L 0.50-2.20 H Lab Interpretation (test cod e = 14680-7) Abnormal [facility]le[facility] with Hxhyboxgscbv1349-08-93 17:32:40* Test Item Value Reference Range Interpretation Comme nts WBC (test code = 6690-2) See_Comment H [Automated message] The system which generated this result transmitted reference range: 4.30 - 11.10 10*3/?L. The reference range was not used to interpret this result as normal/abnormal. RBC (test code = 789-8) See_Comment [Automated message] The system which generated this result transmitted reference range: 3.93 - 5.25 10*6/?L. The reference range was not used to interpret this result as normal/abnormal. HGB (test code = 718-7) 14.8 g/dL 11.6-15.0 HCT (test code = 4544-3) 44.7 % 35.7-45.2 MCV (test code = 787-2) 87.1 fL 80.6-95.5 MCH (test code = 785-6) 28.8 pg 25.9-32.8 MCHC (test code = 786-4) 33.1 g/dL 31.6-35.1 RDW-SD (test code = 85972-5) 49.1 fL 39.0-49.9 RDW-CV (test code = 788-0) 15.3 % 12.0-15.5 PLT (test code = 777-3) See_Comment H [Automated message] The system which generated this result transmitted reference range: 166 - 358 10*3/?L. The reference range was not used to interpret this result as normal/abnormal. MPV (test code = 33183-4) 9.7 fL 9.5-12.9 NRBC/100 WBC (test code = 2868233230) See_Comment [Automated message] The system which generated this result transmitted reference range: 0.0 - 10.0 /100 WBCs. The reference range was not used to interpret this result as normal/abnormal. NRBC x10^3 (test code = 5432510189) <0.01 See_Comment [Automated message] The system which generated this result transmitted reference range: 10*3/?L. The reference range was not used to interpret this result as normal/abnormal. GRAN MAT (NEUT) % (test code = 770-8) 93.1 % IMM GRAN % (test code = 9267459784) 0.90 % LYMPH % (test code = 736-9) 2.9 % MONO % (test code = 5905-5) 2.7 % EOS % (test code = 713-8) 0.0 % BASO % (test code = 706-2) 0.4 % GRAN MAT x10^3(ANC) (test code = 8530757129) 25.17 10*3/uL 1.88-7.09 H IMM GRAN x10^3 (test code = 7356742783) 0.23 10*3/uL 0.00-0.06 H LYMPH x10^3 (test code = 731-0) 0.77 10*3/uL 1.32-3.29 L MONO x10^3 (test code = 742-7) 0.73 10*3/uL 0.33-0.92 EOS x10^3 (test code = 711-2) <0.03 0.03-0.39 L BASO x10^3 (test code = 704-7) 0.10 10*3/uL 0.01-0.07 H Lab Interpretation (test code = 35774-7) Abnormal [facility]le[facility]OL[facility] 17:24:12* Test Item Value Reference Range Interpretation Comme nts ALCOHOL (test code = 7475633984) <10 mg/dL THEODORA (test code = THEODORA) <10 Pjkldbkk16-344 Toxic>100 Depression of DINKEY ENGINEER>400 Fatalities Reported [facility]leB[facility] (NA, K, CL, CO2, GLUCOSE, BUN, CREATININE, CA)2021-03-07 17:18:15* Test Item Value Reference Range Interpretation Comme nts NA (test code = 0520157164) 141 mmol/L 135-145 K (test code = 4053366566) 4.0 mmol/L 3.5-5.0 CL (test code = 3561180572) 106 mmol/L 98-108 CO2 TOTAL (test code = 9443175942) 19 mmol/L 23-31 L AGAP (test code = 2525419938) 2-16 BUN (test code = 1830723083) 16 mg/dL 7-23 GLUCOSE (test code = 0539427786) 156 mg/dL 70-110 H CREATININE (test code = 8060849933) 0.47 mg/dL 0.50-1.04 L CALCIUM (test code = 3755377721) 10.7 mg/dL 8.6-10.6 H eGFR (test code = 0043705375) mL/min/1.73m2 THEODORA (test code = THEODORA) Association of [...] or abnormalities in imaging tests). Lab Interpretation (test code = 62884-1) Abnormal [facility] Azle[facility]atic Function Panel (ALB, T.PRO, BILI T, BU/BC, ALT, AST, ALK PHOS)2021-03-07 17:18:15* Test Item Value Reference Range Interpretation Comme nts TOTAL BILI (test code = 6904460127) 0.9 mg/dL 0.1-1.1 BILI UNCON (test code = 2839018647) 0.9 mg/dL 0.1-1.1 BILI CONJ (test code = 3502532706) 0.0 mg/dL 0.0-0.3 T PROTEIN (test code = 5356065357) 7.8 g/dL 6.3-8.2 ALBUMIN (test code = 4528809227) 4.8 g/dL 3.5-5.0 ALK PHOS (test code = 7851626031) 180 U/L 34-122 H ALTv (test code = 1742-6) 15 U/L 5-35 AST(SGOT) (test code = 6041250000) 29 U/L 13-40 Lab Interpretation (test cod e = 30407-9) Abnormal [facility] AzleLipase Dgzwa5492-89-36 17:18:15* Test Item Value Reference Range Interpretation Comme nts LIPASE (test code = 3601825129) 41 U/L 0-220 Lab Interpretation (test cod e = 48002-3) Normal [facility]leCOVID[facility]19 (ID NOW RAPID TESTING)2021-03-07 17:01:56* Test Item Value Reference Range Interpretation Comme nts SARS-CoV-2 Rapid ID NOW (test code = 98925-7) Not Detected Not Detected THEODORA (test code = THEODORA) ID NOW COVID-19 As say is an isothermal nucleic acid amplification test intended for the qualitative detection of nucleic acid from SARS-CoV-2 viral RNA in nasopharyngeal (GEOSCIENTIST) specimens. It is used under Emergency Use [...] patient testing if clinically indicated. Lab Interpretation (test code = 56118-2) Normal [facility] AzleaPTT2021-04-25 16:54:54* Test Item Value Reference Range Interpretation Comme nts APTT Patient (test code = 3173-2) See_Comment [Automated message] The system which generated this result transmitted reference range: 23 - 38 Seconds. The reference range was not used to interpret this result as normal/abnormal. THEODORA (test code = THEODORA) The [facility] patient population mean normal value for aPTT is 30 seconds. Lab Interpretation (test code = 41473-9) Normal [facility] AzleProthrombin Time (PT) / [id number] 16:52:53 * Test Item Value Reference Range Interpretation Comme nts PROTIME PATIENT (test code = 5964-2) See_Comment [Automated E-Diversify Yourselfa Targeter App] The system which generated this result transmitted reference range: 12.0 - 14.7 Seconds. The reference range was not used to interpret this result as normal/abnormal. INR (test code = 6301-6) Normal INR <1.1; Warfarin Therapeutic range 2.0 to 3.0 or 2.5 to 3.5, depending upon the indications. Lab Interpretation (test code = 99087-5) Normal [facility]leUS ABDOMEN GASULGQ8858-97-84 23:10:00 Unremarkable gallbladder ultrasound. Preliminary Report Dictated [...] The common bile duct measures 2 mm. RIGHTKIDNEY: The visualized portions of the right kidney are unremarkable. [facility], Radiant Results Inft User - 01/23/2021 5:11 PM CSTRIGHT UPPER QUADRANT ABDOMINAL ULTRASOUND [...] waspremedicated. The common bile duct measures 2 mm.RIGHT KIDNEY: The visualized portions of the right kidney areunremarkable.IMPRESSION Unremarkable gallbladder ultrasound.Preliminary Report Dictated by Resident: Johnathan Waddell, Jazmin Zelaya MD., have reviewed this study and agree with theabove report.[facility] AzleGLYCOSYLATED HEMOGLOBIN (A1C)2021-01-23 17:29:16* Test Item Value Reference Range Interpretation Comme nts HGB A1C (test code = 4548-4) 5.4 % 4.0-6.0 Lab Interpretation (test cod e = 89061-9) Normal [facility]leETHANOL2021-03-13 16:01:04* Test Item Value Reference Range Interpretation Comme nts ALCOHOL (test code = 3874006212) <10 mg/dL THEODORA (test code = THEODORA) Toxic Greater than or equal to 80 mg/dL. NOTE: Whole blood values are approximately 10% to 15% lower than serum and plasma. [facility] AzleMAGNESIUM2021-03-13 15:58:23* Test Item Value Reference Range Interpretation Comme nts MAGNESIUM (test code = 0043442254) 1.6 mg/dL 1.7-2.4 L Lab Interpretation (test cod e = 69555-8) Abnormal [facility]lePREGNANCY TEST, [id number] 15:31:23* Test Item Value Reference Range Interpretation Comme nts PREG URINE (test code = 3932027344) Negative THEODORA (test code = THEODORA) Less than 20 IU/L. ?If low titer or ectopic is suspected, resubmit specimen in 48-72 hours. [facility] AzleCBC WITH [id number] 12:39:12* Test Item Value Reference Range Interpretation Comme nts WBC (test code = 6690-2) See_Comment H [Automated message] The system which generated this result transmitted reference range: 4.30 - 11.10 10*3/?L. The reference range was not used to interpret this result as normal/abnormal. RBC (test code = 789-8) See_Comment [Automated message] The system which generated this result transmitted reference range: 3.93 - 5.25 10*6/?L. The reference range was not used to interpret this result as normal/abnormal. HGB (test code = 718-7) 11.8 g/dL 11.6-15.0 HCT (test code = 4544-3) 37.0 % 35.7-45.2 MCV (test code = 787-2) 89.8 fL 80.6-95.5 MCH (test code = 785-6) 28.6 pg 25.9-32.8 MCHC (test code = 786-4) 31.9 g/dL 31.6-35.1 RDW-SD (test code = 41399-0) 56.8 fL 39.0-49.9 H RDW-CV (test code = 788-0) 17.4 % 12.0-15.5 H PLT (test code = 777-3) See_Comment H [Automated message] The system which generated this result transmitted reference range: 166 - 358 10*3/?L. The reference range was not used to interpret this result as normal/abnormal. MPV (test code = 59105-5) 10.1 fL 9.5-12.9 NRBC/100 WBC (test code = 1445978297) See_Comment [Automated message] The system which generated this result transmitted reference range: 0.0 - 10.0 /100 WBCs. The reference range was not used to interpret this result as normal/abnormal. NRBC x10^3 (test code = 8116197184) <0.01 See_Comment [Automated message] The system which generated this result transmitted reference range: 10*3/?L. The reference range was not used to interpret this result as normal/abnormal. GRAN MAT (NEUT) % (test code = 770-8) 87.6 % IMM GRAN % (test code = 7328255830) 0.90 % LYMPH % (test code = 736-9) 7.0 % MONO % (test code = 5905-5) 4.3 % EOS % (test code = 713-8) 0.0 % BASO % (test code = 706-2) 0.2 % GRAN MAT x10^3(ANC) (test code = 4543085673) 20.18 10*3/uL 1.88-7.09 H IMM GRAN x10^3 (test code = 5592927534) 0.20 10*3/uL 0.00-0.06 H LYMPH x10^3 (test code = 731-0) 1.61 10*3/uL 1.32-3.29 MONO x10^3 (test code = 742-7) 0.99 10*3/uL 0.33-0.92 H EOS x10^3 (test code = 711-2) <0.03 0.03-0.39 L BASO x10^3 (test code = 704-7) 0.05 10*3/uL 0.01-0.07 Lab Interpretation (test code = 87093-3) Abnormal [facility] AzleCOMP. METABOLIC PANEL (42208)2021-01-23 12:25:33* Test Item Value Reference Range Interpretation Comme nts NA (test code = 2229299567) 137 mmol/L 135-145 K (test code = 8872007903) 3.3 mmol/L 3.5-5.0 L CL (test code = 1368327549) 105 mmol/L 98-108 CO2 TOTAL (test code = 3242520981) 24 mmol/L 23-31 AGAP (test code = 6213769227) 2-16 BUN (test code = 8041651650) 7 mg/dL 7-23 GLUCOSE (test code = 4691162049) 100 mg/dL 70-110 CREATININE (test code = 9159438017) 0.40 mg/dL 0.50-1.04 L TOTAL BILI (test code = 3779512861) 0.3 mg/dL 0.1-1.1 CALCIUM (test code = 1871060914) 9.0 mg/dL 8.6-10.6 T PROTEIN (test code = 7845242957) 6.4 g/dL 6.3-8.2 ALBUMIN (test code = 4953095131) 3.4 g/dL 3.5-5.0 L ALK PHOS (test code = 0125678532) 109 U/L 34-122 ALTv (test code = 1742-6) 9 U/L 5-35 AST(SGOT) (test code = 4309515577) 21 U/L 13-40 eGFR Calculation (Non-) (test code = 5484897928) mL/min/1.73m2 eGFR Calculation () (test code = 5073604705) mL/min/1.73m2 THEODORA (test code = THEODORA) Association of [...] or abnormalities in imaging tests). Lab Interpretation (test code = 54608-7) Abnormal [facility] / [facility] - DRUG SCREEN [id number] 00:10:57* Test Item Value Reference Range Interpretation Comme nts BENZO U (test code = 0555575882) Negative Negative KOTA U (test code = 9387594424) Negative Negative AMPHET (test code = 6280953535) Negative Negative THC (test code = 1121597095) Presumptive Positive Negative A Confirmation of Presumptive Positive THC result requires physician order. METHADONE (test code = 4316630533) Negative Negative Meth U (test code = 2637186568) Negative Negative OPIATES (test code = 5823817315) Presumptive Positive Negative A Cocaine Metabolite (test code = 5131224814) Negative Negative PROPOXY (test code = 7697888803) Negative Negative Tric U (test code = 3961307903) Negative Negative PCP (test code = 9429940869) Negative Negative OXYCOD (test code = 8392453419) Negative Negative THEODORA (test code = THEODORA) Urine Drug Cutoff Ranges Benzodiazepines: ? ? 150 ng/mLBarbiturates : [...] employment testing, legal testing). Lab Interpretation (test code = 38402-1) [facility]normal [facility] (ID NOW RAPID TESTING)2021-01-22 23:16:50* Test Item Value Reference Range Interpretation Comme nts SARS-CoV-2 Rapid ID NOW (test code = 00627-1) Not Detected Not Detected THEODORA (test code = THEODORA) ID NOW COVID-19 As say is an isothermal nucleic acid amplification test intended for the qualitative detection of nucleic acid from SARS-CoV-2 viral RNA in nasopharyngeal (GEOSCIENTIST) specimens. It is used under Emergency Use [...] patient testing if clinically indicated. Lab Interpretation (test code = 10586-7) Normal [facility]leCT ABDOMEN PELVIS W [id number] 22:01:401. ?No acute abnormality identified in the abdomen or pelvis. 2. ?Persistent prominence of gastric folds with circumferential thickeningin the antrum. (Previously diagnosed with antral gastritis on EGD in February2020). 3. ?Persistent circumferential wall thickening in the sigmoid colon,similar to prio r examinations. Evaluation limited by nondistention.(Previously evaluated with colonoscopy in February2020.) 4. ?Stable indeterminate adrenal nodules. 5. ?Few peripheral areas of groundglass attenuation in the lower lobes.Nonspecific and could be seen with [...] biliary dilation.Pancreas: No abnormality identified in the pancreas. Spleen: [...] nodes by CT size criteria. Abdominalaorta is normalin caliber. Minimal atherosclerotic disease. MSK/Body Wall: No concerning bony lesion identified. Andres and screw at theproximal left femur. Peritoneum/Other: No extraluminal air. No extraluminal fluid. [facility], Radiant Results Inft User - 01/22/2021 4:02 PM CSTEXAM: CT ABDOMEN PELVIS W CONTRASTHISTORY:45 year -old woman with abdominal pain, acute, nonlocalized TECHNIQUE: Contrast - IV contrast was given, no oral contrast was given Portal venous phase - abdomen and pelvisReconstructions - coronal and sagittal planesCOMPARISON: Multiple prior CT examinations from February 2020 to October 2020FINDINGS:Statements: None.Thoracic: Few areas of nonspecific groundglass attenuation in the peripheryof thelower lobes (2:4 and 2:9), nonspecific. Band of atelectasis in theright posterior lung base.Hepatobiliary: The liver is unremarkable without focal lesion. Thegallbladder is unremarkable. No biliary dilation.Pancreas: No abnormality identified in the pancreas.Spleen: No abnormality identified in thespleen. Adrenals: Bilateral adrenal nodules (1.6 cm right [...] thickening of moderate length segment ofsigmoid colon.Vascular/Lymphatics: No enlarged lymph nodes by CT size criteria. Abdominalaorta is normal in caliber. Minimal atherosclerotic disease.MSK/Body Wall: No concerning bony lesion identified.Andres and screw at theproximal left femur.Peritoneum/Other: No extraluminal air. No extraluminal fluid.IMPRESSION1. No acute abnormality identified in the abdomen or pelvis.2. Persistent prominence of gastric folds with circumferential thickeningin the antrum. (Previously diagnosed with antral gastritis on EGD in February2020).3. Persistent circumferential wall thickening in the sigmoid colon,similar to prior examinations. Evaluation limited by nondistention.(Previously evaluated with colonoscopy inApril 2019.)4. Stable indeterminate adrenal nodules.5. Few peripheral areas of groundglass attenuation in the lower lobes.Nonspecific and could be seen with infection or inflammation. Considerfurtherevaluation of the lungs with chest radiograph.[facility] 20:42:10* Test Item Value Reference Range Interpretation Comme nts APPEARANCE (test code = 0126288094) Clear Clear COLOR (test code = 1264642331) Yellow Yellow PH (test code = 6751861329) 4.8-8.0 SP GRAVITY (test code = 8284684714) 1.003-1.030 GLU U QUAL (test code = 5005954285) 50 mg/dL Normal A BLOOD (test code = 1816621594) 3+ Negative A KETONES (test code = 7524242124) 80 mg/dL Negative A PROTEIN (test code = 2887-8) 30 mg/dL Negative A UROBILIN (test code = 0148815706) Normal Normal BILIRUBIN (test code = 3450997129) Negative Negative NITRITE (test code = 7198784800) Negative Negative LEUK BIRDIE (test code = 4041628762) Negative Negative RBC/HPF (test code = 1692579577) >182 See_Comment H [Automated [employer]-Divers[employer] Yourselfa ge] The system which generated this result transmitted reference range: 0 - 3 HPF. The reference range was not used to interpret this result as normal/abnormal. WBC/HPF (test code = 2188567724) See_Comment [Automated [employer]self[employer] ge] The system which generated this result transmitted reference range: 0 - 5 HPF. The reference range was not used to interpret this result as normal/abnormal. BACTERIA (test code = 5017428097) Negative Negative MUCOUS (test code = 3662943998) Slight Negative LPF A SQ EPITH (test code = 9281246367) <1 HPF Lab Interpretation (test code = 29275-0) [facility]normal [facility] METABOLIC PANEL (21731)2021-01-22 20:31:50* Test Item Value Reference Range Interpretation Comme nts NA (test code = 4430958636) 139 mmol/L 135-145 K (test code = 3081273793) 3.8 mmol/L 3.5-5.0 CL (test code = 9950871675) 108 mmol/L 98-108 CO2 TOTAL (test code = 3351763890) 28 mmol/L 23-31 AGAP (test code = 1645476646) 2-16 BUN (test code = 6553231814) 14 mg/dL 7-23 GLUCOSE (test code = 2841414291) 126 mg/dL 70-110 H CREATININE (test code = 2868963585) 0.42 mg/dL 0.50-1.04 L TOTAL BILI (test code = 8516659418) 0.5 mg/dL 0.1-1.1 CALCIUM (test code = 4133763589) 9.0 mg/dL 8.6-10.6 T PROTEIN (test code = 7638692042) 6.6 g/dL 6.3-8.2 ALBUMIN (test code = 2337994284) 3.7 g/dL 3.5-5.0 ALK PHOS (test code = 3649981833) 115 U/L 34-122 ALTv (test code = 1742-6) 9 U/L 5-35 AST(SGOT) (test code = 9408599072) 21 U/L 13-40 eGFR Calculation (Non-) (test code = 1220172147) mL/min/1.73m2 eGFR Calculation () (test code = 1119507465) mL/min/1.73m2 THEODORA (test code = THEODORA) Association of [...] or abnormalities in imaging tests). Lab Interpretation (test code = 29035-4) [facility]normal [facility]21[facility]12 20:31:50* Test Item Value Reference Range Interpretation Comme nts LIPASE (test code = 9268455107) 28 U/L 0-220 Lab Interpretation (test cod e = 58631-5) Normal [facility] WITHOUT [id number] 20:08:21* Test Item Value Reference Range Interpretation Comme nts WBC (test code = 6690-2) See_Comment H [Automated message] The system which generated this result transmitted reference range: 4.30 - 11.10 10*3/?L. The reference range was not used to interpret this result as normal/abnormal. RBC (test code = 789-8) See_Comment [Automated message] The system which generated this result transmitted reference range: 3.93 - 5.25 10*6/?L. The reference range was not used to interpret this result as normal/abnormal. HGB (test code = 718-7) 12.8 g/dL 11.6-15.0 HCT (test code = 4544-3) 39.9 % 35.7-45.2 MCH (test code = 785-6) 28.9 pg 25.9-32.8 MCV (test code = 787-2) 90.1 fL 80.6-95.5 MCHC (test code = 786-4) 32.1 g/dL 31.6-35.1 PLT (test code = 777-3) See_Comment H [Automated message] The system which generated this result transmitted reference range: 166 - 358 10*3/?L. The reference range was not used to interpret this result as normal/abnormal. MPV (test code = 66962-0) 9.5 fL 9.5-12.9 RDW-CV (test code = 788-0) 17.2 % 12.0-15.5 H RDW-SD (test code = 41073-7) 56.6 fL 39.0-49.9 H NRBC x10^3 (test code = 9139833902) <0.01 See_Comment [Automated E-[employer]self[employer] ge] The system which generated this result transmitted reference range: 10*3/?L. The reference range was not used to interpret this result as normal/abnormal. NRBC/100 WBC (test code = 2688725264) See_Comment [Automated E[employer] Yourself[employer] ge] The system which generated this result transmitted reference range: 0.0 - 10.0 /100 WBCs. The reference range was not used to interpret this result as normal/abnormal. IPF % (test code = 3318894124) Lab Interpretation (test code = 64716-9) Abnormal [facility] [id number] 20:23:00* Test Item Value Reference Range Interpretation Comme nts Feces Culture (test code = 625-4) No Salmonella, No Shigella, No Campylobacter, and No E. coli 0157 isolated. THEODORA (test code = THEODORA) Feces specimens ar e routinely cultured for Salmonella, Shigella, Campylobacter, and E. coli 0157. [facility]. METABOLIC PANEL (20330)2020-11-02 11:08:00* Test Item Value Reference Range Interpretation Comme nts NA (test code = 0640793191) 138 mmol/L 135-145 K (test code = 9080631100) 3.5 mmol/L 3.5-5 CL (test code = 2917095661) 104 mmol/L 98-108 CO2 TOTAL (test code = 3355801735) 25 mmol/L 23-31 AGAP (test code = 0017203995) 2-16 BUN (test code = 0459927433) 10 mg/dL 7-23 GLUCOSE (test code = 8070096386) 105 mg/dL 70-110 CREATININE (test code = 4035114786) 0.52 mg/dL 0.5-1.04 TOTAL BILI (test code = 5430835671) 0.9 mg/dL 0.1-1.1 CALCIUM (test code = 4549517151) 9.9 mg/dL 8.6-10.6 T PROTEIN (test code = 7790672437) 6.6 g/dL 6.3-8.2 ALBUMIN (test code = 9995407984) 3.8 g/dL 3.5-5 ALK PHOS (test code = 0220638493) 104 U/L 34-122 ALTv (test code = 1742-6) 9 U/L 5-35 AST(SGOT) (test code = 2581810537) 15 U/L 13-40 eGFR Calculation (Non-) (test code = 7779624656) mL/min/1.73m2 eGFR Calculation () (test code = 0890829677) mL/min/1.73m2 THEODORA (test code = THEODORA) Association of [...] or urine or abnormalities in imaging tests). [facility] WITH [id number] 10:45:00* Test Item Value Reference Range Interpretation Comme nts WBC (test code = 6690-2) See_Comment H [Automated messa ge] The system which generated this result transmitted reference range: 4.30 - 11.10 10*3/?L. The reference range was not used to interpret this result as normal/abnormal. RBC (test code = 789-8) See_Comment [Automated messa ge] The system which generated this result transmitted reference range: 3.93 - 5.25 10*6/?L. The reference range was not used to interpret this result as normal/abnormal. HGB (test code = 718-7) 14.3 g/dL 11.6-15 HCT (test code = 4544-3) 44.1 % 35.7-45.2 MCV (test code = 787-2) 88.2 fL 80.6-95.5 MCH (test code = 785-6) 28.6 pg 25.9-32.8 MCHC (test code = 786-4) 32.4 g/dL 31.6-35.1 RDW-SD (test code = 04526-3) 50.1 fL 39-49.9 H RDW-CV (test code = 788-0) 15.7 % 12-15.5 H PLT (test code = 777-3) See_Comment [Automated messa ge] The system which generated this result transmitted reference range: 166 - 358 10*3/?L. The reference range was not used to interpret this result as normal/abnormal. MPV (test code = 92524-3) 10.7 fL 9.5-12.9 NRBC/100 WBC (test code = 7142539451) See_Comment [Automated Lexim ssage] The system which generated this result transmitted reference range: 0.0 - 10.0 /100 WBCs. The reference range was not used to interpret this result as normal/abnormal. NRBC x10^3 (test code = 4008352854) <0.01 See_Comment [Automated messa ge] The system which generated this result transmitted reference range: 10*3/?L. The reference range was not used to interpret this result as normal/abnormal. GRAN MAT (NEUT) % (test code = 770-8) 69.2 % IMM GRAN % (test code = 9543137563) 0.90 % LYMPH % (test code = 736-9) 19.8 % MONO % (test code = 5905-5) 8.4 % EOS % (test code = 713-8) 1.1 % BASO % (test code = 706-2) 0.6 % GRAN MAT x10^3(ANC) (test code = 8830413138) 7.74 10*3/uL 1.88-7.09 H IMM GRAN x10^3 (test code = 4680020580) 0.10 10*3/uL 0-0.06 H LYMPH x10^3 (test code = 731-0) 2.22 10*3/uL 1.32-3.29 MONO x10^3 (test code = 742-7) 0.94 10*3/uL 0.33-0.92 H EOS x10^3 (test code = 711-2) 0.12 10*3/uL 0.03-0.39 BASO x10^3 (test code = 704-7) 0.07 10*3/uL 0.01-0.07 Lab Interpretation (test code = 21649-2) Abnormal [facility] METABOLIC PANEL (NA, K, CL, CO2, GLUCOSE, BUN, CREATININE, CA)2020-10-31 10:38:00* Test Item Value Reference Range Interpretation Comme nts NA (test code = 8890979709) 136 mmol/L 135-145 K (test code = 4077451604) 3.6 mmol/L 3.5-5 CL (test code = 1562544900) 107 mmol/L 98-108 CO2 TOTAL (test code = 0564359025) 25 mmol/L 23-31 AGAP (test code = 2062496322) 2-16 BUN (test code = 5103557190) 8 mg/dL 7-23 GLUCOSE (test code = 6233506804) 100 mg/dL 70-110 CREATININE (test code = 5053169434) 0.46 mg/dL 0.5-1.04 L CALCIUM (test code = 0036247867) 9.1 mg/dL 8.6-10.6 eGFR Calculation (Non-) (test code = 9341522473) mL/min/1.73m2 eGFR Calculation () (test code = 0265197694) mL/min/1.73m2 THEODORA (test code = THEODORA) Association of [...] or abnormalities in imaging tests). Lab Interpretation (test code = 40885-9) [facility]normal [facility]2020-12-19 10:38:00* Test Item Value Reference Range Interpretation Comme nts MAGNESIUM (test code = 5661981802) 2.0 mg/dL 1.7-2.4 Lab Interpretation (test cod e = 73269-2) Normal [facility] WITH [id number] 10:20:00* Test Item Value Reference Range Interpretation Comme nts WBC (test code = 6690-2) See_Comment [Automated [employer]] The system which generated this result transmitted reference range: 4.30 - 11.10 10*3/?L. The reference range was not used to interpret this result as normal/abnormal. RBC (test code = 789-8) See_Comment [Automated messa ge] The system which generated this result transmitted reference range: 3.93 - 5.25 10*6/?L. The reference range was not used to interpret this result as normal/abnormal. HGB (test code = 718-7) 12.8 g/dL 11.6-15 HCT (test code = 4544-3) 37.9 % 35.7-45.2 MCV (test code = 787-2) 86.9 fL 80.6-95.5 MCH (test code = 785-6) 29.4 pg 25.9-32.8 MCHC (test code = 786-4) 33.8 g/dL 31.6-35.1 RDW-SD (test code = 04943-2) 48.8 fL 39-49.9 RDW-CV (test code = 788-0) 15.6 % 12-15.5 H PLT (test code = 777-3) See_Comment [Automated messa ge] The system which generated this result transmitted reference range: 166 - 358 10*3/?L. The reference range was not used to interpret this result as normal/abnormal. MPV (test code = 35257-2) 10.2 fL 9.5-12.9 NRBC/100 WBC (test code = 1032544965) See_Comment [Automated Lexim ssage] The system which generated this result transmitted reference range: 0.0 - 10.0 /100 WBCs. The reference range was not used to interpret this result as normal/abnormal. NRBC x10^3 (test code = 2269400174) <0.01 See_Comment [Automated messa ge] The system which generated this result transmitted reference range: 10*3/?L. The reference range was not used to interpret this result as normal/abnormal. GRAN MAT (NEUT) % (test code = 770-8) 68.5 % IMM GRAN % (test code = 5890349938) 0.50 % LYMPH % (test code = 736-9) 22.1 % MONO % (test code = 5905-5) 7.7 % EOS % (test code = 713-8) 0.6 % BASO % (test code = 706-2) 0.6 % GRAN MAT x10^3(ANC) (test code = 9551946135) 7.41 10*3/uL 1.88-7.09 H IMM GRAN x10^3 (test code = 7140696803) 0.05 10*3/uL 0-0.06 LYMPH x10^3 (test code = 731-0) 2.39 10*3/uL 1.32-3.29 MONO x10^3 (test code = 742-7) 0.83 10*3/uL 0.33-0.92 EOS x10^3 (test code = 711-2) 0.06 10*3/uL 0.03-0.39 BASO x10^3 (test code = 704-7) 0.06 10*3/uL 0.01-0.07 Lab Interpretation (test code = 49246-1) [facility]normal [facility] BY [id number] 04:40:00* Test Item Value Reference Range Interpretation Comme nts Campylobacter (jejuni, coli and upsaliensis) (test code = 56950-7) Negative Negative, Indeterminate, See comment Plesiomonas shigelloides (test code = 10061-8) Negative Negative, Indeterminate, See comment Salmonella (test code = 40236-6) Negative Negative, Indeterminate, See comment Yersinia enterocolitica (test code = 90708-3) Negative Negative, Indeterminate, See comment Vibrio (test code = 40495-0) Negative Negative, Indeterminate, See comment Vibrio cholerae (test code = 46441-3) Negative Negative, Indeterminate, See comment Enteroaggregative E. coli (EAEC) (test code = 35417-2) Negative Negative, Indeterminate, See comment Enteropathogenic E. coli (EPEC) (test code = 97302-1) Negative Negative, N/A, Indeterminate, See comment Enterotoxigenic E. coli (ETEC) (test code = 85235-5) Negative Negative, Indeterminate, See comment Shiga toxin-Producing E. coli (STEC) (test code = 29978-5) Negative Negative, Indeterminate, See comment Shigella/Enteroinvasive E. coli (EIEC) (test code = 86582-4) Negative Negative, Indeterminate, See comment Cryptosporidium (test code = 00063-9) Negative Negative, Indeterminate, See comment Cyclospora cayetanensis (test code = 09166-8) Negative Negative, Indeterminate, See comment Entamoeba histolytica (test code = 33132-3) Negative Negative, Indeterminate, See comment Giardia lamblia (test code = 53665-2) Negative Negative, Indeterminate, See comment Adenovirus F 40/41 (test code = 63312-8) Negative Negative, Indeterminate, See comment Astrovirus (test code = 27568-9) Negative Negative, Indeterminate, See comment Norovirus GI/GII (test code = 98332-7) Negative Negative, Indeterminate, See comment Rotavirus A (test code = 49574-0) Negative Negative, Indeterminate, See comment Sapovirus (test code = 82646-6) Negative Negative, Indeterminate, See comment THEODORA (test code = THEODORA) Negative:A negativ e result does not rule-out infection. ?This assay does not test for all potential infectious agents of diarrheal disease. Positive:A positive test result does not necessarily indicate the presence of viable organism. Lab Interpretation (test code = 79535-4) [facility] COVID [id number] 12:55:00COVID DMT InterpretationInterpretation/Recommendations: Molecular NAAT Tests for Active Infection with the SARS-CoV-2 Virus: This patient has a history of testing negative on multiple occasions for the SARS-CoV-2 virus that causes COVID-19 illness, with no [...] illness onset and any deficiencies in sampling techniques.If the patient continues to have persistent or worsening symptoms concerning for COVID-19 illness, a repeat NAAT test (PCR, Rapid ID Now, etc.) should be performed, at which time the SARS-CoV-2 virus- if present - may have reached a [...] COVID-19 testing the patient has had at [facility], including molecular NAAT testing (more commonly known as PCR testing and Rapid ID Now testing) and antibody t esting. It does not take into account any testing that a patient has had outside of the [facility] medical record. [facility] LABORATORY SERVICESCOVID PdipdpyYNDO-DnL-0 Rapid ID NOW (no units) ? ? Date ? Value ? 10/28/2020 ? Not Detected ? ? ? 09/28/2020 ? Not Detected ? ? ? 08/03/2020 ? Not Detected ? ? ? 05/21/2020 ? Not Detected? ? ? 05/16/2020 ? Not Detected ? ? ? 04/05/2020 ? Not Detected ? ? ? 03/02/2020 ? Not Detected ? [facility] SERVICESUnCH[facility] HospitalMAGNESIUM2020-12-18 12:41:00* Test Item Value Reference Range Interpretation Comme nts MAGNESIUM (test code = 2239814124) 1.6 mg/dL 1.7-2.4 L Lab Interpretation (test cod e = 63959-5) [facility]normal [facility] (NA, K, CL, CO2, GLUCOSE, BUN, CREATININE, CA)2020-10-30 12:40:00* Test Item Value Reference Range Interpretation Comme nts NA (test code = 5808651569) 135 mmol/L 135-145 K (test code = 5147042122) 3.5 mmol/L 3.5-5 CL (test code = 4407574632) 102 mmol/L 98-108 CO2 TOTAL (test code = 2863348951) 24 mmol/L 23-31 AGAP (test code = 5364163074) 2-16 BUN (test code = 0047440789) 7 mg/dL 7-23 GLUCOSE (test code = 0982063332) 133 mg/dL 70-110 H CREATININE (test code = 3376231209) 0.36 mg/dL 0.5-1.04 L CALCIUM (test code = 7468805539) 9.3 mg/dL 8.6-10.6 eGFR Calculation (Non-) (test code = 7497399015) mL/min/1.73m2 eGFR Calculation () (test code = 8776621848) mL/min/1.73m2 THEODORA (test code = THEODORA) Association of [...] or abnormalities in imaging tests). Lab Interpretation (test code = 66793-5) Abnormal [facility] WITH [id number] 12:31:00* Test Item Value Reference Range Interpretation Comme nts WBC (test code = 6690-2) See_Comment H [Automated message] The system which generated this result transmitted reference range: 4.30 - 11.10 10*3/?L. The reference range was not used to interpret this result as normal/abnormal. RBC (test code = 789-8) See_Comment [Automated message] The system which generated this result transmitted reference range: 3.93 - 5.25 10*6/?L. The reference range was not used to interpret this result as normal/abnormal. HGB (test code = 718-7) 13.3 g/dL 11.6-15 HCT (test code = 4544-3) 39.2 % 35.7-45.2 MCV (test code = 787-2) 86.0 fL 80.6-95.5 MCH (test code = 785-6) 29.2 pg 25.9-32.8 MCHC (test code = 786-4) 33.9 g/dL 31.6-35.1 RDW-SD (test code = 38969-7) 48.4 fL 39-49.9 RDW-CV (test code = 788-0) 15.4 % 12-15.5 PLT (test code = 777-3) See_Comment [Automated message] The system which generated this result transmitted reference range: 166 - 358 10*3/?L. The reference range was not used to interpret this result as normal/abnormal. MPV (test code = 48423-0) 11.1 fL 9.5-12.9 NRBC/100 WBC (test code = 9816249559) See_Comment [Automated message] The system which generated this result transmitted reference range: 0.0 - 10.0 /100 WBCs. The reference range was not used to interpret this result as normal/abnormal. NRBC x10^3 (test code = 8507733631) <0.01 See_Comment [Automated message] The system which generated this result transmitted reference range: 10*3/?L. The reference range was not used to interpret this result as normal/abnormal. GRAN MAT (NEUT) % (test code = 770-8) 91.2 % IMM GRAN % (test code = 6702493352) 0.60 % LYMPH % (test code = 736-9) 5.6 % MONO % (test code = 5905-5) 2.3 % EOS % (test code = 713-8) 0.0 % BASO % (test code = 706-2) 0.3 % GRAN MAT x10^3(ANC) (test code = 7471729775) 14.57 10*3/uL 1.88-7.09 H IMM GRAN x10^3 (test code = 4536863584) 0.10 10*3/uL 0-0.06 H LYMPH x10^3 (test code = 731-0) 0.89 10*3/uL 1.32-3.29 L MONO x10^3 (test code = 742-7) 0.36 10*3/uL 0.33-0.92 EOS x10^3 (test code = 711-2) <0.03 0.03-0.39 L BASO x10^3 (test code = 704-7) 0.05 10*3/uL 0.01-0.07 Lab Interpretation (test code = 78040-4) [facility]normal [facility]le[facility]ID[facility] DIFFICILE [id number] 00:59:00 * Test Item Value Reference Range Interpretation Comme nts Clostridioides (Clostridium) difficile (test code = 54272-3) Positive Negative A Lab Interpretation (test cod e = 76445-9) [facility]normal [facility] AzlePhosphorus [id number] 15:26:00* Test Item Value Reference Range Interpretation Comme nts PHOSPHORUS (test code = 5717828909) 3.2 mg/dL 2.5-5 Lab Interpretation (test cod e = 22761-3) [facility]le[facility] (NA, K, CL, CO2, GLUCOSE, BUN, CREATININE, CA)2020-10-29 15:08:00* Test Item Value Reference Range Interpretation Comme nts NA (test code = 1958182136) 136 mmol/L 135-145 K (test code = 8089009996) 3.3 mmol/L 3.5-5 L CL (test code = 8725098695) 104 mmol/L 98-108 CO2 TOTAL (test code = 3551488915) 22 mmol/L 23-31 L AGAP (test code = 9226679309) 2-16 BUN (test code = 3191580604) 8 mg/dL 7-23 GLUCOSE (test code = 8914816858) 114 mg/dL 70-110 H CREATININE (test code = 6605411005) 0.44 mg/dL 0.5-1.04 L CALCIUM (test code = 2038540875) 9.5 mg/dL 8.6-10.6 eGFR Calculation (Non-) (test code = 6504051838) mL/min/1.73m2 eGFR Calculation () (test code = 4895676425) mL/min/1.73m2 THEODORA (test code = THEODORA) Association of [...] or abnormalities in imaging tests). Lab Interpretation (test code = 81340-9) Abnormal [facility] with [id number] 14:01:00* Test Item Value Reference Range Interpretation Comme nts WBC (test code = 6690-2) See_Comment H [Automated message] The system which generated this result transmitted reference range: 4.30 - 11.10 10*3/?L. The reference range was not used to interpret this result as normal/abnormal. RBC (test code = 789-8) See_Comment [Automated message] The system which generated this result transmitted reference range: 3.93 - 5.25 10*6/?L. The reference range was not used to interpret this result as normal/abnormal. HGB (test code = 718-7) 12.9 g/dL 11.6-15 HCT (test code = 4544-3) 38.1 % 35.7-45.2 MCV (test code = 787-2) 86.6 fL 80.6-95.5 MCH (test code = 785-6) 29.3 pg 25.9-32.8 MCHC (test code = 786-4) 33.9 g/dL 31.6-35.1 RDW-SD (test code = 31298-1) 49.9 fL 39-49.9 RDW-CV (test code = 788-0) 15.8 % 12-15.5 H PLT (test code = 777-3) See_Comment [Automated message] The system which generated this result transmitted reference range: 166 - 358 10*3/?L. The reference range was not used to interpret this result as normal/abnormal. MPV (test code = 53913-9) 10.5 fL 9.5-12.9 NRBC/100 WBC (test code = 0853238043) See_Comment [Automated message] The system which generated this result transmitted reference range: 0.0 - 10.0 /100 WBCs. The reference range was not used to interpret this result as normal/abnormal. NRBC x10^3 (test code = 3520904158) <0.01 See_Comment [Automated message] The system which generated this result transmitted reference range: 10*3/?L. The reference range was not used to interpret this result as normal/abnormal. GRAN MAT (NEUT) % (test code = 770-8) 83.5 % IMM GRAN % (test code = 6124230053) 0.80 % LYMPH % (test code = 736-9) 10.4 % MONO % (test code = 5905-5) 5.1 % EOS % (test code = 713-8) 0.0 % BASO % (test code = 706-2) 0.2 % GRAN MAT x10^3(ANC) (test code = 8250911351) 14.30 10*3/uL 1.88-7.09 H IMM GRAN x10^3 (test code = 8119226399) 0.14 10*3/uL 0-0.06 H LYMPH x10^3 (test code = 731-0) 1.78 10*3/uL 1.32-3.29 MONO x10^3 (test code = 742-7) 0.87 10*3/uL 0.33-0.92 EOS x10^3 (test code = 711-2) <0.03 0.03-0.39 L BASO x10^3 (test code = 704-7) 0.04 10*3/uL 0.01-0.07 Lab Interpretation (test code = 52052-2) [facility]normal [facility] AzleMagnesium [id number] 13:57:00* Test Item Value Reference Range Interpretation Comme nts MAGNESIUM (test code = 7165425442) 1.5 mg/dL 1.7-2.4 L Lab Interpretation (test cod e = 17589-2) [facility]normal [facility]le[facility] (ID NOW RAPID TESTING)2020-10-28 20:12:00* Test Item Value Reference Range Interpretation Comme nts SARS-CoV-2 Rapid ID NOW (test code = 58551-7) Not Detected Not Detected THEODORA (test code = THEODORA) ID NOW COVID-19 As say is an isothermal nucleic acid amplification test intended for the qualitative detection of nucleic acid from SARS-CoV-2 viral RNA in nasopharyngeal (GEOSCIENTIST) specimens. It is used under Emergency Use [...] patient testing if clinically indicated. Lab Interpretation (test code = 50990-1) Normal [facility]leETHANOL2020-12-16 20:02:00* Test Item Value Reference Range Interpretation Comme nts ALCOHOL (test code = 8991807363) <10 mg/dL THEODORA (test code = THEODORA) <10 Avguadxs64-550 Toxic>100 Depression of DINKEY ENGINEER>400 Fatalities Reported [facility] / [facility] - DRUG SCREEN [id number] 18:36:00* Test Item Value Reference Range Interpretation Comme nts BENZO U (test code = 9034887400) Presumptive Positive Negative A KOTA U (test code = 3511468543) Negative Negative AMPHET (test code = 8759284866) Negative Negative THC (test code = 7421952212) Presumptive Positive Negative A Confirmation of Presumptive Positive THC result requires physician order. METHADONE (test code = 9239062680) Negative Negative Meth U (test code = 2868896119) Negative Negative OPIATES (test code = 1125179760) Presumptive Positive Negative A Cocaine Metabolite (test code = 3748963072) Negative Negative PROPOXY (test code = 8093926437) Negative Negative Tric U (test code = 9044273818) Negative Negative PCP (test code = 2853363420) Negative Negative OXYCOD (test code = 4578752891) Negative Negative THEODORA (test code = THEODORA) Urine Drug Cutoff Ranges Benzodiazepines: ? ? 150 ng/mLBarbiturates : [...] employment testing, legal testing). Lab Interpretation (test code = 87613-0) [facility] 18:32:00* Test Item Value Reference Range Interpretation Comme nts APPEARANCE (test code = 9763933122) Clear Clear COLOR (test code = 1248618065) Yellow Yellow PH (test code = 0368525566) 4.8-8.0 SP GRAVITY (test code = 1073476642) 1.003-1.030 H GLU U QUAL (test code = 6033008546) Normal Normal BLOOD (test code = 8082297848) Negative Negative KETONES (test code = 7521708732) 20 mg/dL Negative A PROTEIN (test code = 2887-8) Negative Negative UROBILIN (test code = 2351440750) Normal Normal BILIRUBIN (test code = 0476724912) Negative Negative NITRITE (test code = 4994172669) Negative Negative LEUK BIRDIE (test code = 7874275234) Negative Negative RBC/HPF (test code = 5829211462) See_Comment [Automated [employer]self[employer]] The system which generated this result transmitted reference range: 0 - 3 HPF. The reference range was not used to interpret this result as normal/abnormal. WBC/HPF (test code = 2741285917) <1 See_Comment [Automated [employer]self[employer]] The system which generated this result transmitted reference range: 0 - 5 HPF. The reference range was not used to interpret this result as normal/abnormal. BACTERIA (test code = 9299157674) Negative Negative SQ EPITH (test code = 6630040794) HPF Lab Interpretation (test code = 36146-4) [facility]normal [facility] W [id number] 17:50:14CT Abdomen and Pelvis with intravenous contrast. CLINICAL HISTORY: Abdominal pain. Radiculitis is suspected. DOSE: Up-to-date CT equipment and radiation dose reduction techniques wereemployed. CTDIvol: 6.91 mGy. DLP: 325 mGy-cm. TECHNIQUE : Contiguous axial imaging from the level of the lung basesth rough the pubic symphysis were performed after the [...] air or free fluid. No lymphadenopathy. Pancreas and Adrenals: ?Unremarkable pancreas. 8 mm nodule in the rightadrenal gland and 20 mm nodule inthe left adrenal gland noted, of unknownetiology but likely incidental nonfunctioning adenomas, essentiallyunchanged compared with September 28, 2020 study. Kidneys and Ureters: ?No visible calculi inthe renal collecting systems. No hydroureter or hydronephrosis. Vessels: Mild atherosclerosis. No ao rtic aneurysm. Retroperitoneum: No abnormal fluid or lymphadenopathy. Bowel: Normal appendix. Diffuse colonic wall thickening with submucosaledema and congestion of the pericolonic fat noted. No localized changes ofacute diverticulitis. Small bowel gas pattern is normal. Bladder and Reproductive Org ans: Thickened endometrium is likelyphysiologic. Several cystic lesions [...] nodules are stable since the previous CT scan. [facility], Radiant Results Inft User - 10/28/2020 11:51 [...] dose.FINDINGS: Lower lungs: Clear. No pleural effusion orpericardial effusion.Liver, Gallbladder and Spleen: No focal lesions detected in the liver or inthespleen. No calcified gallstones. Biliary ducts appear of normal size.Liver measures approximately 13.6 cm in length and spleen is 9 x 3.8 cm.Peritoneum: No free air or free fluid. No lymphadenopathy.Pancreas and Adrenals: Unremarkable pancreas. 8 mm nodule in the rightadrenal gland and 20 mm nodulein the left adrenal gland noted, of unknownetiology but likely incidental nonfunctioning adenomas, e ssentiallyunchanged compared with September 28, 2020 study.Kidneys and Ureters: No visible calculi in the renal collecting systems. [...] acute changes in the lowerthoracic or lumbar spines.Mild lumbar levoscoliosis noted.Soft tissues: Small fat-containing indirect type left inguinal herni a.CONCLUSION:1. Abnormal findings in large bowel, particularly more in the distaldescending and sigmoid colon contains, consisting of wall thickening,submucosal edema and minimal congestion of the pericolonic fat. Findingsare consistent with nonspecific colitis. No diverticulitis. Abnormal CTfindings are slightly more severe when compared with the recent CT scan of09/28/2020.2. Bilateral adrenal gland nodules are stable since the previous CT scan.[facility]leTroponin [id number] 17:29:00* Test Item Value Reference Range Interpretation Comme nts TROPONIN I (test code = 4586086340) <0.012 See_Comment [Automated message] The system which generated this result transmitted reference range: <=0.034 ng/mL. The reference range was not used to interpret this result as normal/abnormal. THEODORA (test code = THEODORA) Equal or [...] use of biotin. ? Lab Interpretation (test code = 79382-2) Normal [facility]le[facility] Met[facility] (NA, K, CL, CO2, GLUCOSE, BUN, CREATININE, CA)2020-10-28 17:18:00* Test Item Value Reference Range Interpretation Comme nts NA (test code = 7191145643) 138 mmol/L 135-145 K (test code = 7399297970) 4.7 mmol/L 3.5-5 CL (test code = 9640062754) 106 mmol/L 98-108 CO2 TOTAL (test code = 1538362792) 24 mmol/L 23-31 AGAP (test code = 4539014673) 2-16 BUN (test code = 7691111383) 8 mg/dL 7-23 GLUCOSE (test code = 8819957264) 154 mg/dL 70-110 H CREATININE (test code = 7684261108) 0.50 mg/dL 0.5-1.04 CALCIUM (test code = 4445754150) 10.0 mg/dL 8.6-10.6 eGFR Calculation (Non-) (test code = 0842503109) mL/min/1.73m2 eGFR Calculation () (test code = 9525637059) mL/min/1.73m2 THEODORA (test code = THEODORA) Association of [...] or abnormalities in imaging tests). Lab Interpretation (test code = 73743-1) Abnormal [facility]le[facility]atic Function Panel (ALB, T.PRO, BILI T, BU/BC, ALT, AST, ALK PHOS)2020-10-28 17:18:00* Test Item Value Reference Range Interpretation Comme nts TOTAL BILI (test code = 1410287938) 0.9 mg/dL 0.1-1.1 BILI UNCON (test code = 0248147249) 0.8 mg/dL 0.1-1.1 BILI CONJ (test code = 7724359900) 0.0 mg/dL 0-0.3 T PROTEIN (test code = 7522012031) 7.6 g/dL 6.3-8.2 ALBUMIN (test code = 4421843197) 4.4 g/dL 3.5-5 ALK PHOS (test code = 3683646579) 139 U/L 34-122 H ALTv (test code = 1742-6) 11 U/L 5-35 AST(SGOT) (test code = 6257080998) 27 U/L 13-40 Lab Interpretation (test cod e = 63031-2) Abnormal [facility] AzleLipase [id number] 17:18:00* Test Item Value Reference Range Interpretation Comme nts LIPASE (test code = 1324871083) 29 U/L 0-220 Lab Interpretation (test cod e = 05630-5) Normal [facility]leCBC with [id number] 17:13:00* Test Item Value Reference Range Interpretation Comme nts WBC (test code = 6690-2) See_Comment H [Automated message] The system which generated this result transmitted reference range: 4.30 - 11.10 10*3/?L. The reference range was not used to interpret this result as normal/abnormal. RBC (test code = 789-8) See_Comment [Automated message] The system which generated this result transmitted reference range: 3.93 - 5.25 10*6/?L. The reference range was not used to interpret this result as normal/abnormal. HGB (test code = 718-7) 14.7 g/dL 11.6-15 HCT (test code = 4544-3) 45.6 % 35.7-45.2 H MCV (test code = 787-2) 89.2 fL 80.6-95.5 MCH (test code = 785-6) 28.8 pg 25.9-32.8 MCHC (test code = 786-4) 32.2 g/dL 31.6-35.1 RDW-SD (test code = 05782-3) 50.3 fL 39-49.9 H RDW-CV (test code = 788-0) 15.5 % 12-15.5 PLT (test code = 777-3) See_Comment [Automated message] The system which generated this result transmitted reference range: 166 - 358 10*3/?L. The reference range was not used to interpret this result as normal/abnormal. MPV (test code = 71926-1) 10.4 fL 9.5-12.9 NRBC/100 WBC (test code = 5682872186) See_Comment [Automated message] The system which generated this result transmitted reference range: 0.0 - 10.0 /100 WBCs. The reference range was not used to interpret this result as normal/abnormal. NRBC x10^3 (test code = 1670012024) <0.01 See_Comment [Automated message] The system which generated this result transmitted reference range: 10*3/?L. The reference range was not used to interpret this result as normal/abnormal. GRAN MAT (NEUT) % (test code = 770-8) 91.1 % IMM GRAN % (test code = 7065640988) 0.50 % LYMPH % (test code = 736-9) 5.9 % MONO % (test code = 5905-5) 2.0 % EOS % (test code = 713-8) 0.1 % BASO % (test code = 706-2) 0.4 % GRAN MAT x10^3(ANC) (test code = 5228942764) 11.63 10*3/uL 1.88-7.09 H IMM GRAN x10^3 (test code = 7233807501) 0.07 10*3/uL 0-0.06 H LYMPH x10^3 (test code = 731-0) 0.75 10*3/uL 1.32-3.29 L MONO x10^3 (test code = 742-7) 0.25 10*3/uL 0.33-0.92 L EOS x10^3 (test code = 711-2) <0.03 0.03-0.39 L BASO x10^3 (test code = 704-7) 0.05 10*3/uL 0.01-0.07 Lab Interpretation (test code = 88381-7) [facility]normal [facility]leCOMP. METABOLIC PANEL (39751)2020-09-30 15:21:00* Test Item Value Reference Range Interpretation Comme nts NA (test code = 5037093456) 139 mmol/L 135-145 K (test code = 7060337815) 4.1 mmol/L 3.5-5 CL (test code = 5568346128) 110 mmol/L 98-108 H CO2 TOTAL (test code = 3792392633) 23 mmol/L 23-31 AGAP (test code = 9384463983) 2-16 BUN (test code = 4962396244) 4 mg/dL 7-23 L GLUCOSE (test code = 1897124313) 125 mg/dL 70-110 H CREATININE (test code = 9097249917) 0.46 mg/dL 0.5-1.04 L TOTAL BILI (test code = 5138177275) 0.4 mg/dL 0.1-1.1 CALCIUM (test code = 6572637040) 9.4 mg/dL 8.6-10.6 T PROTEIN (test code = 3045596061) 6.2 g/dL 6.3-8.2 L ALBUMIN (test code = 4176511176) 3.5 g/dL 3.5-5 ALK PHOS (test code = 3573594253) 90 U/L 34-122 ALTv (test code = 1742-6) 15 U/L 5-35 AST(SGOT) (test code = 0520664314) 27 U/L 13-40 eGFR Calculation (Non-) (test code = 7617611353) mL/min/1.73m2 eGFR Calculation () (test code = 7228278805) mL/min/1.73m2 THEODORA (test code = THEODORA) Association of [...] or abnormalities in imaging tests). Lab Interpretation (test code = 51951-3) [facility]normal [facility]leMAGNESIUM2020-11-18 15:15:00* Test Item Value Reference Range Interpretation Comme nts MAGNESIUM (test code = 9206445391) 1.9 mg/dL 1.7-2.4 Lab Interpretation (test cod e = 46969-4) Normal [facility]lePHOSPHORUS2020-11-18 15:15:00* Test Item Value Reference Range Interpretation Comme nts PHOSPHORUS (test code = 1470701273) 2.8 mg/dL 2.5-5 Lab Interpretation (test cod e = 47297-2) Normal [facility]leBLOOD CULTURE [id number] 15:03:00* Test Item Value Reference Range Interpretation Comme nts Blood Culture-Aerobic (test code = 25099-8) Culture positive. See Blood Culture Workup for additional information. No growth AA Previous preliminary verified result was Culture In Progress on 09/28/2020 at 1902 [employer] Blood Culture-Anaerobic (test code = 92699-6) Culture positive. See Blood Culture Workup for additional information. 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 The reference range was not used to interpret this result as normal/abnormal. RBC (test code = 789-8) See_Comment [Automated [employer]self[employer]] The system which generated this result transmitted reference range: 3.93 - 5.25 10*6/?L. The reference range was not used to interpret this result as normal/abnormal. HGB (test code = 718-7) 12.5 g/dL 11.6-15 HCT (test code = 4544-3) 38.3 % 35.7-45.2 MCV (test code = 787-2) 90.1 fL 80.6-95.5 MCH (test code = 785-6) 29.4 pg 25.9-32.8 MCHC (test code = 786-4) 32.6 g/dL 31.6-35.1 RDW-SD (test code = 91532-9) 48.5 fL 39-49.9 RDW-CV (test code = 788-0) 14.7 % 12-15.5 PLT (test code = 777-3) See_Comment [Automated [employer]self[employer]] The system which generated this result transmitted reference range: 166 - 358 10*3/?L. The reference range was not used to interpret this result as normal/abnormal. MPV (test code = 42060-0) 11.2 fL 9.5-12.9 NRBC/100 WBC (test code = 2182274544) See_Comment [Automated me ssage] The system which generated this result transmitted reference range: 0.0 - 10.0 /100 WBCs. The reference range was not used to interpret this result as normal/abnormal. NRBC x10^3 (test code = 1540798591) <0.01 See_Comment [Automated me ssage] The system which generated this result transmitted reference range: 10*3/?L. The reference range was not used to interpret this result as normal/abnormal. GRAN MAT (NEUT) % (test code = 770-8) 67.1 % IMM GRAN % (test code = 9343973395) 0.50 % LYMPH % (test code = 736-9) 22.8 % MONO % (test code = 5905-5) 7.7 % EOS % (test code = 713-8) 1.3 % BASO % (test code = 706-2) 0.6 % GRAN MAT x10^3(ANC) (test code = 8968762861) 5.83 10*3/uL 1.88-7.09 IMM GRAN x10^3 (test code = 9147165584) 0.04 10*3/uL 0-0.06 LYMPH x10^3 (test code = 731-0) 1.98 10*3/uL 1.32-3.29 MONO x10^3 (test code = 742-7) 0.67 10*3/uL 0.33-0.92 EOS x10^3 (test code = 711-2) 0.11 10*3/uL 0.03-0.39 BASO x10^3 (test code = 704-7) 0.05 10*3/uL 0.01-0.07 [facility]lePROCALCITONIN2020-11-18 08:08:00* Test Item Value Reference Range Interpretation Comments Procalcitonin (test code = 1392995848) <0.02 See_Comment [Automated message] The system which generated this result transmitted reference range: <0.07 ng/mL. The reference range was not used to interpret this result as normal/abnormal . THEODORA (test code = THEODORA) INTERPRETATION OF [...] lung abscess/empyema. For further information please refer to:[email or web address] Lab Interpretation (test code = 79580-2) Normal [facility] AzleGRAM POSITIVE BLOOD PATHOGENS DNA [id number]-[id number] 07:16:00* Test Item Value Reference Range Interpretation Comme nts Streptococcus species (test code = 21032-5) Positive Negative, See Comment/Narrativ e A THEODORA (test code = THEODORA) See blood culture result for additional information. Testing included eleven identification and three resistancemarker targets. Lab Interpretation (test code = 52310-3) Abnormal [facility]leCLOSTRIDIUM DIFFICILE [id number] 00:53:00 * Test Item Value Reference Range Interpretation Comme nts Clostridioides (Clostridium) difficile (test code = 57665-0) Negative Negative Lab Interpretation (test cod e = 10399-6) Normal [facility] AzleSEDIMENTATION [id number] 20:13:00* Test Item Value Reference Range Interpretation Comme nts ESR (test code = 1778356864) See_Comment [Automated messa ge] The system which generated this result transmitted reference range: 0 - 20 mm/HR. The reference range was not used to interpret this result as normal/abnormal. Lab Interpretation (test code = 43998-9) Normal [facility]leMAGNESIUM2020-11-17 19:44:00* Test Item Value Reference Range Interpretation Comme nts MAGNESIUM (test code = 4104205415) 1.6 mg/dL 1.7-2.4 L Lab Interpretation (test cod e = 90544-1) Abnormal [facility]leLIPASE2020-11-17 19:43:00* Test Item Value Reference Range Interpretation Comme nts LIPASE (test code = 3049912652) 27 U/L 0-220 Lab Interpretation (test cod e = 68422-8) Normal [facility]leCBC with Glaqcmzzigua1884-10-94 13:42:00* Test Item Value Reference Range Interpretation Comme nts WBC (test code = 6690-2) See_Comment H [Automated message] The system which generated this result transmitted reference range: 4.30 - 11.10 10*3/?L. The reference range was not used to interpret this result as normal/abnormal. RBC (test code = 789-8) See_Comment [Automated message] The system which generated this result transmitted reference range: 3.93 - 5.25 10*6/?L. The reference range was not used to interpret this result as normal/abnormal. HGB (test code = 718-7) 12.3 g/dL 11.6-15 HCT (test code = 4544-3) 37.7 % 35.7-45.2 MCV (test code = 787-2) 88.5 fL 80.6-95.5 MCH (test code = 785-6) 28.9 pg 25.9-32.8 MCHC (test code = 786-4) 32.6 g/dL 31.6-35.1 RDW-SD (test code = 35175-7) 46.1 fL 39-49.9 RDW-CV (test code = 788-0) 14.4 % 12-15.5 PLT (test code = 777-3) See_Comment [Automated message] The system which generated this result transmitted reference range: 166 - 358 10*3/?L. The reference range was not used to interpret this result as normal/abnormal. MPV (test code = 87818-8) 11.0 fL 9.5-12.9 NRBC/100 WBC (test code = 7641040876) See_Comment [Automated message] The system which generated this result transmitted reference range: 0.0 - 10.0 /100 WBCs. The reference range was not used to interpret this result as normal/abnormal. NRBC x10^3 (test code = 6418927034) <0.01 See_Comment [Automated message] The system which generated this result transmitted reference range: 10*3/?L. The reference range was not used to interpret this result as normal/abnormal. GRAN MAT (NEUT) % (test code = 770-8) 79.5 % IMM GRAN % (test code = 0901158580) 0.60 % LYMPH % (test code = 736-9) 12.6 % MONO % (test code = 5905-5) 7.1 % EOS % (test code = 713-8) 0.0 % BASO % (test code = 706-2) 0.2 % GRAN MAT x10^3(ANC) (test code = 7735250973) 16.11 10*3/uL 1.88-7.09 H IMM GRAN x10^3 (test code = 4417752481) 0.12 10*3/uL 0-0.06 H LYMPH x10^3 (test code = 731-0) 2.55 10*3/uL 1.32-3.29 MONO x10^3 (test code = 742-7) 1.45 10*3/uL 0.33-0.92 H EOS x10^3 (test code = 711-2) <0.03 0.03-0.39 L BASO x10^3 (test code = 704-7) 0.05 10*3/uL 0.01-0.07 REACT LYMPHS (test code = 6391843484) Rare Lab Interpretation (test code = 91116-4) Abnormal [facility] Metabolic Panel (NA, K, CL, CO2, GLUCOSE, BUN, CREATININE, CA)2020-09-29 12:43:00* Test Item Value Reference Range Interpretation Comme nts NA (test code = 1373171237) 137 mmol/L 135-145 K (test code = 6922990783) 3.4 mmol/L 3.5-5 L CL (test code = 3165200827) 108 mmol/L 98-108 CO2 TOTAL (test code = 9415704726) 23 mmol/L 23-31 AGAP (test code = 6985070455) 2-16 BUN (test code = 6631656660) 7 mg/dL 7-23 GLUCOSE (test code = 5005823429) 113 mg/dL 70-110 H CREATININE (test code = 7446723501) 0.42 mg/dL 0.5-1.04 L CALCIUM (test code = 3895243209) 9.6 mg/dL 8.6-10.6 eGFR Calculation (Non-) (test code = 5989837098) mL/min/1.73m2 eGFR Calculation () (test code = 1006716396) mL/min/1.73m2 THEODORA (test code = THEODORA) Association of [...] or abnormalities in imaging tests). Lab Interpretation (test code = 15126-6) [facility]normal [facility] AzleLactic Acid Whole [id number] 05:38:00* Test Item Value Reference Range Interpretation Comme nts LACTIC ACID (test code = 3812083285) 0.78 mmol/L [facility] AzleCOVID-19 (ID NOW RAPID TESTING)2020-09-28 21:38:00* Test Item Value Reference Range Interpretation Comme nts SARS-CoV-2 Rapid ID NOW (test code = 08033-2) Not Detected Not Detected THEODORA (test code = THEODORA) ID NOW COVID-19 As say is an isothermal nucleic acid amplification test intended for the qualitative detection of nucleic acid from SARS-CoV-2 viral RNA in nasopharyngeal (GEOSCIENTIST) specimens. It is used under Emergency Use [...] patient testing if clinically indicated. Lab Interpretation (test code = 05426-5) Normal [facility] AzleLactic Acid Whole [id number] 21:09:00* Test Item Value Reference Range Interpretation Comme nts LACTIC ACID (test code = 0067248547) 3.83 mmol/L [facility]leCT ABDOMEN PELVIS W [id number] 20:23:491. Diffuse colonic wall thickening and hyperemia is identified with subtlepericolonic edema. The findings suggest a diffuse colitis. No evidence forpneumatosis, perforation or free air is identified.2. Bilateral adrenal nodules are identified measuring up to 1.6 cm ingreatest dimension. These may re present adrenal adenomas, however, adrenalmass protocol CT or [...] demonstrated. Pelvis findings: The small bowel is unremarkable.Diffuse colonic wallthickening and edema is present. The [...] slight pericolonic edema. The findings suggest a milddiffusecolitis. No perforation or abscess is identified. A [...] is present. The urinary bladder demonstrates noabnormality. Theuterus and ovaries have an unremarkable appearance. Noadenopathy [...] be considered for more definitivecharacterization.RL: [id number]: 2831 [facility] AzleUrinalysis2020-11-16 20:18:00* Test Item Value Reference Range Interpretation Comme nts APPEARANCE (test code = 9679279106) Clear Clear COLOR (test code = 7687478019) Yellow Yellow PH (test code = 2116148928) 4.8-8.0 SP GRAVITY (test code = 2063649228) 1.003-1.030 GLU U QUAL (test code = 3728095651) 150 mg/dL Normal A BLOOD (test code = 3648055828) Negative Negative KETONES (test code = 2461888447) 20 mg/dL Negative A PROTEIN (test code = 2887-8) Negative Negative UROBILIN (test code = 6271868458) Normal Normal BILIRUBIN (test code = 2475755000) Negative Negative NITRITE (test code = 8576836135) Negative Negative LEUK BIRDIE (test code = 3081130778) Negative Negative RBC/HPF (test code = 0161723656) See_Comment [Automated [employer]] The system which generated this result transmitted reference range: 0 - 3 HPF. The reference range was not used to interpret this result as normal/abnormal. WBC/HPF (test code = 3697674687) See_Comment [Automated [employer] Yourself[employer] ge] The system which generated this result transmitted reference range: 0 - 5 HPF. The reference range was not used to interpret this result as normal/abnormal. BACTERIA (test code = 2406124063) Negative Negative SQ EPITH (test code = 1332413177) HPF Lab Interpretation (test code = 55019-7) Abnormal [facility] / [facility] - DRUG SCREEN [id number] 20:13:00* Test Item Value Reference Range Interpretation Comme nts BENZO U (test code = 0721756323) Negative Negative KOTA U (test code = 7819762275) Negative Negative AMPHET (test code = 8421109033) Negative Negative THC (test code = 6382682693) Presumptive Positive Negative A Confirmation of Presumptive Positive THC result requires physician order. METHADONE (test code = 0074977126) Negative Negative Meth U (test code = 1359971256) Negative Negative OPIATES (test code = 7218906743) Negative Negative Cocaine Metabolite (test code = 5915294886) Negative Negative PROPOXY (test code = 0001346583) Negative Negative Tric U (test code = 4527295039) Negative Negative PCP (test code = 3232596588) Negative Negative OXYCOD (test code = 9115725210) Negative Negative THEODORA (test code = THEODORA) Urine Drug Cutoff Ranges Benzodiazepines: ? ? 150 ng/mLBarbiturates : [...] employment testing, legal testing). Lab Interpretation (test code = 11496-2) Abnormal [facility] with Jpyiigecmssc4649-82-84 18:53:00* Test Item Value Reference Range Interpretation Comme nts WBC (test code = 6690-2) See_Comment H [Automated message] The system which generated this result transmitted reference range: 4.30 - 11.10 10*3/?L. The reference range was not used to interpret this result as normal/abnormal. RBC (test code = 789-8) See_Comment [Automated message] The system which generated this result transmitted reference range: 3.93 - 5.25 10*6/?L. The reference range was not used to interpret this result as normal/abnormal. HGB (test code = 718-7) 14.7 g/dL 11.6-15 HCT (test code = 4544-3) 45.0 % 35.7-45.2 MCV (test code = 787-2) 88.8 fL 80.6-95.5 MCH (test code = 785-6) 29.0 pg 25.9-32.8 MCHC (test code = 786-4) 32.7 g/dL 31.6-35.1 RDW-SD (test code = 70778-1) 45.8 fL 39-49.9 RDW-CV (test code = 788-0) 14.0 % 12-15.5 PLT (test code = 777-3) See_Comment [Automated message] The system which generated this result transmitted reference range: 166 - 358 10*3/?L. The reference range was not used to interpret this result as normal/abnormal. MPV (test code = 55219-5) 10.3 fL 9.5-12.9 NRBC/100 WBC (test code = 7264521454) See_Comment [Automated message] The system which generated this result transmitted reference range: 0.0 - 10.0 /100 WBCs. The reference range was not used to interpret this result as normal/abnormal. NRBC x10^3 (test code = 5752603527) <0.01 See_Comment [Automated message] The system which generated this result transmitted reference range: 10*3/?L. The reference range was not used to interpret this result as normal/abnormal. GRAN MAT (NEUT) % (test code = 770-8) 91.1 % IMM GRAN % (test code = 0552096804) 0.80 % LYMPH % (test code = 736-9) 5.6 % MONO % (test code = 5905-5) 2.3 % EOS % (test code = 713-8) 0.0 % BASO % (test code = 706-2) 0.2 % GRAN MAT x10^3(ANC) (test code = 9812057696) 15.35 10*3/uL 1.88-7.09 H IMM GRAN x10^3 (test code = 5164992982) 0.13 10*3/uL 0-0.06 H LYMPH x10^3 (test code = 731-0) 0.95 10*3/uL 1.32-3.29 L MONO x10^3 (test code = 742-7) 0.39 10*3/uL 0.33-0.92 EOS x10^3 (test code = 711-2) <0.03 0.03-0.39 L BASO x10^3 (test code = 704-7) 0.04 10*3/uL 0.01-0.07 Lab Interpretation (test code = 16073-5) [facility]normal [facility] [id number] 18:48:00* Test Item Value Reference Range Interpretation Comme nts PREG SERUM (test code = 6188105060) Negative THEODORA (test code = THEODORA) Less than 10 IU/L. ?If low titer or ectopic is suspected, resubmit specimen in 48-72 hours. [facility]leTroponin [id number] 18:44:00* Test Item Value Reference Range Interpretation Comme nts TROPONIN I (test code = 3933016957) <0.012 See_Comment [Automated message] The system which generated this result transmitted reference range: <=0.034 ng/mL. The reference range was not used to interpret this result as normal/abnormal. THEODORA (test code = THEODORA) Equal or [...] use of biotin. ? Lab Interpretation (test code = 06045-7) Normal [facility]2020-[facility]16 18:44:00* Test Item Value Reference Range Interpretation Comme nts ALCOHOL (test code = 3278655101) <10 mg/dL THEODORA (test code = THEODORA) <10 [id number] Toxic>100 Depression of DINKEY ENGINEER>400 Fatalities Reported [facility]leaPTT2020-11-16 18:35:00* Test Item Value Reference Range Interpretation Comme nts APTT Patient (test code = 3173-2) See_Comment [Automated message] The system which generated this result transmitted reference range: 23 - 38 Seconds. The reference range was not used to interpret this result as normal/abnormal. THEODORA (test code = THEODORA) The [facility] patient population mean normal value for aPTT is 30 seconds. Lab Interpretation (test code = 76248-5) Normal [facility] Metabolic Panel (NA, K, CL, CO2, GLUCOSE, BUN, CREATININE, CA)2020-09-28 18:34:00* Test Item Value Reference Range Interpretation Comme nts NA (test code = 2987976220) 140 mmol/L 135-145 K (test code = 8810261080) 3.7 mmol/L 3.5-5 CL (test code = 0503476857) 109 mmol/L 98-108 H CO2 TOTAL (test code = 3619921610) 22 mmol/L 23-31 L AGAP (test code = 5088854963) 2-16 BUN (test code = 9211123561) 16 mg/dL 7-23 GLUCOSE (test code = 2687010825) 210 mg/dL 70-110 H CREATININE (test code = 1956903467) 0.51 mg/dL 0.5-1.04 CALCIUM (test code = 7747413375) 10.3 mg/dL 8.6-10.6 eGFR Calculation (Non-) (test code = 8024540754) mL/min/1.73m2 eGFR Calculation () (test code = 3746965087) mL/min/1.73m2 THEODORA (test code = THEODORA) Association of [...] or abnormalities in imaging tests). Lab Interpretation (test code = 42793-7) Abnormal [facility]le[facility]atic Function Panel (ALB, T.PRO, BILI T, BU/BC, ALT, AST, ALK PHOS)2020-09-28 18:34:00* Test Item Value Reference Range Interpretation Comme [facility] TOTAL BILI (test code = 4097982771) 0.7 mg/dL 0.1-1.1 BILI UNCON (test code = 1427076101) 0.7 mg/dL 0.1-1.1 BILI CONJ (test code = 9734285014) 0.0 mg/dL 0-0.3 T PROTEIN (test code = 8855776234) 7.2 g/dL 6.3-8.2 ALBUMIN (test code = 0731443161) 4.1 g/dL 3.5-5 ALK PHOS (test code = 7548049938) 134 U/L 34-122 H ALTv (test code = 1742-6) 17 U/L 5-35 AST(SGOT) (test code = 5071313770) 23 U/L 13-40 Lab Interpretation (test cod e = 81704-4) Abnormal [facility]leLipase [id number] 18:34:00* Test Item Value Reference Range Interpretation Comme [facility] LIPASE (test code = 7809234433) 35 U/L 0-220 Lab Interpretation (test cod e = 70501-0) Normal [facility]leProthrombin Time (PT) / [id number] 18:33:00 * Test Item Value Reference Range Interpretation Comme nts PROTIME PATIENT (test code = 5964-2) See_Comment [Automated [employer]self[employer] ge] The system which generated this result transmitted reference range: 12.0 - 14.7 Seconds. The reference range was not used to interpret this result as normal/abnormal. INR (test code = 6301-6) Normal INR <1.1; Warfarin Therapeutic range 2.0 to 3.0 or 2.5 to 3.5, depending upon the indications. Lab Interpretation (test code = 97792-5) Normal [facility]leURINALYSIS2020-09-23 17:08:00* Test Item Value Reference Range Interpretation Comme nts APPEARANCE (test code = 0864151152) Cloudy Clear A COLOR (test code = 9341933286) Yellow Yellow PH (test code = 9531563204) 4.8-8.0 SP GRAVITY (test code = 8456140654) 1.003-1.030 GLU U QUAL (test code = 3124502848) Normal Normal BLOOD (test code = 6285170719) Negative Negative KETONES (test code = 7493051065) 5 mg/dL Negative A PROTEIN (test code = 2887-8) Negative Negative UROBILIN (test code = 8734891012) Normal Normal BILIRUBIN (test code = 2337452343) Negative Negative NITRITE (test code = 1227144985) Negative Negative LEUK BIRDIE (test code = 6240469759) Negative Negative RBC/HPF (test code = 3577986568) See_Comment [Automated [employer]self[employer] ge] The system which generated this result transmitted reference range: 0 - 3 HPF. The reference range was not used to interpret this result as normal/abnormal. WBC/HPF (test code = 9650945997) <1 See_Comment [Automated [employer]self[employer] ge] The system which generated this result transmitted reference range: 0 - 5 HPF. The reference range was not used to interpret this result as normal/abnormal. BACTERIA (test code = 2062188559) Moderate Negative A MUCOUS (test code = 7879354866) Slight Negative LPF A AMORPHOUS (test code = 0487454968) Many Rare HPF A SQ EPITH (test code = 4689686794) HPF YEAST BUD (test code = 1441241039) See_Comment [Automated [employer]self[employer] ge] The system which generated this result transmitted reference range: <=1 HPF. The reference range was not used to interpret this result as normal/abnormal. HYAL CAST (test code = 1499588577) See_Comment [Automated messa ge] The system which generated this result transmitted reference range: <=2 LPF. The reference range was not used to interpret this result as normal/abnormal. Lab Interpretation (test code = 55685-8) Abnormal [facility] WITH [id number] 16:11:00* Test Item Value Reference Range Interpretation Comme nts WBC (test code = 6690-2) See_Comment [Automated messa ge] The system which generated this result transmitted reference range: 4.30 - 11.10 10*3/?L. The reference range was not used to interpret this result as normal/abnormal. RBC (test code = 789-8) See_Comment [Automated messa ge] The system which generated this result transmitted reference range: 3.93 - 5.25 10*6/?L. The reference range was not used to interpret this result as normal/abnormal. HGB (test code = 718-7) 13.9 g/dL 11.6-15 HCT (test code = 4544-3) 41.4 % 35.7-45.2 MCV (test code = 787-2) 88.1 fL 80.6-95.5 MCH (test code = 785-6) 29.6 pg 25.9-32.8 MCHC (test code = 786-4) 33.6 g/dL 31.6-35.1 RDW-SD (test code = 33577-1) 44.3 fL 39-49.9 RDW-CV (test code = 788-0) 13.7 % 12-15.5 PLT (test code = 777-3) See_Comment [Automated messa ge] The system which generated this result transmitted reference range: 166 - 358 10*3/?L. The reference range was not used to interpret this result as normal/abnormal. MPV (test code = 41422-9) 10.6 fL 9.5-12.9 NRBC/100 WBC (test code = 2682392000) See_Comment [Automated Lexim ssage] The system which generated this result transmitted reference range: 0.0 - 10.0 /100 WBCs. The reference range was not used to interpret this result as normal/abnormal. NRBC x10^3 (test code = 0902187628) <0.01 See_Comment [Automated messa ge] The system which generated this result transmitted reference range: 10*3/?L. The reference range was not used to interpret this result as normal/abnormal. GRAN MAT (NEUT) % (test code = 770-8) 86.0 % IMM GRAN % (test code = 9330346836) 0.50 % LYMPH % (test code = 736-9) 9.1 % MONO % (test code = 5905-5) 3.6 % EOS % (test code = 713-8) 0.4 % BASO % (test code = 706-2) 0.4 % GRAN MAT x10^3(ANC) (test code = 5185538413) 9.56 10*3/uL 1.88-7.09 H IMM GRAN x10^3 (test code = 2146096512) 0.05 10*3/uL 0-0.06 LYMPH x10^3 (test code = 731-0) 1.01 10*3/uL 1.32-3.29 L MONO x10^3 (test code = 742-7) 0.40 10*3/uL 0.33-0.92 EOS x10^3 (test code = 711-2) 0.04 10*3/uL 0.03-0.39 BASO x10^3 (test code = 704-7) 0.04 10*3/uL 0.01-0.07 Lab Interpretation (test code = 64864-7) Abnormal [facility]. METABOLIC PANEL (97065)2020-08-05 16:11:00* Test Item Value Reference Range Interpretation Comme nts NA (test code = 1788724816) 137 mmol/L 135-145 K (test code = 6108026638) 3.6 mmol/L 3.5-5 CL (test code = 5359674970) 104 mmol/L 98-108 CO2 TOTAL (test code = 1507402697) 23 mmol/L 23-31 AGAP (test code = 4769852510) 2-16 BUN (test code = 6355371749) 13 mg/dL 7-23 GLUCOSE (test code = 3003975069) 140 mg/dL 70-110 H CREATININE (test code = 1398610959) 0.44 mg/dL 0.5-1.04 L TOTAL BILI (test code = 6144117535) 0.6 mg/dL 0.1-1.1 CALCIUM (test code = 6999278159) 10.0 mg/dL 8.6-10.6 T PROTEIN (test code = 2126390618) 7.1 g/dL 6.3-8.2 ALBUMIN (test code = 9494175544) 3.9 g/dL 3.5-5 ALK PHOS (test code = 4724289305) 117 U/L 34-122 ALTv (test code = 1742-6) 17 U/L 5-35 AST(SGOT) (test code = 7533357974) 25 U/L 13-40 eGFR Calculation (Non-) (test code = 1430210618) mL/min/1.73m2 eGFR Calculation () (test code = 3493221372) mL/min/1.73m2 THEODORA (test code = THEODORA) Association of [...] or abnormalities in imaging tests). Lab Interpretation (test code = 86049-7) [facility]normal [facility]leLIPID PANEL (03350)(TOTAL CHOLESTEROL, TRIGLYCERIDES, HDL)2020-08-05 16:11:00* Test Item Value Reference Range Interpretation Comme nts CHOL (test code = 1151947905) 215 mg/dL 120-200 H HDL (test code = 3499590897) 63 mg/dL >50 HDLC RATIO (test code = 2606413169) See_Comment [Automated [employer]] The system which generated this result transmitted reference range: <=4.5. The reference range was not used to interpret this result as normal/abnormal. TRIG (test code = 1483538141) 121 mg/dL 30-170 LDL CHOL (test code = 37541-6) 128 mg/dL See_Comment [Automated [employer]] The system which generated this result transmitted reference range: <=160. The reference range was not used to interpret this result as normal/abnormal. VLDL (test code = 7750989284) 24 mg/dL 5-60 Lab Interpretation (test code = 55147-2) [facility]normal [facility]2020-[facility] 16:10:00* Test Item Value Reference Range Interpretation Comme nts LIPASE (test code = 0299229548) 42 U/L 0-220 Lab Interpretation (test cod e = 44984-1) Normal [facility] AzleLactic Acid Whole [id number] 17:58:00* Test Item Value Reference Range Interpretation Comme nts LACTIC ACID (test code = 1792485405) 1.61 mmol/L [facility]le[facility]INALYSIS2020-09-21 17:13:00* Test Item Value Reference Range Interpretation Comme nts APPEARANCE (test code = 2595213346) Clear Clear COLOR (test code = 4376737448) Yellow Yellow PH (test code = 6267198813) 4.8-8.0 SP GRAVITY (test code = 0415732433) 1.003-1.030 GLU U QUAL (test code = 4808041558) Negative Negative BLOOD (test code = 1793475493) Trace Negative A KETONES (test code = 1530256538) Negative Negative PROTEIN (test code = 2887-8) Negative Negative UROBILIN (test code = 3900838221) 0.2 mg/dL See_Comment [Automated [employer]self[employer] App] The system which generated this result transmitted reference range: 0-1.0 mg/dL. The reference range was not used to interpret this result as normal/abnormal. BILIRUBIN (test code = 8738585451) Negative Negative NITRITE (test code = 7970779631) Negative Negative LEUK BIRDIE (test code = 9399822386) Negative Negative RBC/HPF (test code = 3915966478) See_Comment [Automated messa ge] The system which generated this result transmitted reference range: 0 - 3 HPF. The reference range was not used to interpret this result as normal/abnormal. WBC/HPF (test code = 0761958211) See_Comment [Automated [employer]-Divers[employer] Yourself[employer] ge] The system which generated this result transmitted reference range: 0 - 5 HPF. The reference range was not used to interpret this result as normal/abnormal. BACTERIA (test code = 1849882326) Negative Negative SQ EPITH (test code = 6362969915) <1 HPF Lab Interpretation (test code = 87735-8) Abnormal [facility]leCT ABDOMEN PELVIS W [id number] 16:01:061. ?No acute abdominopelvic process is identified. 2. ?Pancreatic parenchymal atrophy. 3. ?Scattered nodular soft tissue densities in the peritoneal cavity withinterval decrease in size in comparisonto the prior exam as describedabove. 4. ?Unchanged circumferential thickening of the gastric antrum-pylorus anddescending/sigmoid colon. 5. ?Stable indeterminate adrenal nodules. Preliminary Report Dictated by Resident: Alexsandra Musa MD., have reviewed this study and agree with the abovereport.EXAM: CT ABDOMEN AND PELVIS WITH CONTRAST HISTORY: PMH of pancreatitis complaining of sudden onset of pain withnausea/vomiting at 5 am COMPARISON: MR abdomen and MRCP 05/19/2020, abdominal ultrasound 04/06/2020,CT abdomen and pelvis 04/05/2020. TECHNIQUE AND FINDINGS: Contiguous axialimaging from the level of the lungbases through the proximal thighs was performed after the administration ofintravenous Omnipaque contrast. Coronal and sagittal reconstructions wereobtained. ?Auto mA and/or iterative reconstruction [...] decrease in sizein comparison to the prior examon 04/05/2020, for example: A nodularpancreatic tail soft [...] diverticula of the distal descending/sigmoidcolon are seen. ?The appendix is unremarkable. PELVIS/BLADDER: The uterus and bilateral ovaries are unremarkable. Theurinary bladder is partially distended and unremarkable. VESSELS: Unremarkable. BONES AND SOFT TISSUES: No suspicious lytic or sclerotic bony lesions.Partially visualized intramedullary nail and screw fixation of the leftfemur is noted. [facility], Radiant Results Inft User - 08/03/2020 11:02 AM CDTEXAM: CT ABDOMEN AND PELVIS WITH CONTRASTHISTORY: PMH of pancreatitis complaining of sudden onset of pain withnausea/vomiting at 5 amCOMPARISON: MR abdomen and MRCP 05/19/2020, abdominal ultrasound 04/06/2020,CT abdomen and pelvis 04/05/2020.TECHNIQUE AND FINDINGS: Contiguous axial imaging from the level of the lungbases through the proximal thighs was performed after the administration ofintravenous Omnipaque contrast. Coronal andsagittal reconstructions wereobtained. Auto mA and/or iterative reconstruction were used to reducera diation dose.FINDINGS:LOWER THORAX: The lungs bases are clear. No cardiomegaly. LIVER: No focal hepatic lesions. Normal contour.GALLBLADDER AND BILIARY TREE: No biliary ductal dilation. No gallbladderwall thickening.SPLEEN: No splenomegaly.PANCREAS: No ductal dilation or masses. Pancreatic parenchymal atrophy.ADRENAL GLANDS: Stable bilateral adrenal nodules are indeterminate,measuring up to 1.4 cm on the leftKIDNEYS: No hydronephrosis, stones, or masses.PERITONEUM AND RETROPERITONEUM: No free air or fluid. Scattered nodularsoft tissue throughout the peritoneal cavity with interval decrease insizein comparison to the prior exam on 04/05/2020, for example: A nodularpancreatic tail soft tissuedensity has decreased from 3.1 x 3.9 cm to 0.9x 1.5 cm (2:35), left para colonic gutter nodule has decreased from 0.7 to0.5 cm, and right para colonic nodule has decreased from 3.1 x 2.1 to 1.3 x2 cm (2:72), and pancreatic head nodular soft tissue density has decreasedfrom 4.2 x 1.8 to 1.4 x 1.1 cm(2:49).LYMPH NODES: Stable portacaval lymph node measuring 0.8 cm (2:35).GI TRACT: Unchanged circumferential thickening and mucosal enhancement ofthe gastric antrum-pylorus. Unchanged circumferentialthickening of thedescending/sigmoid colon. Few diverticula of the distal descending/sigmoidcolon are seen. The appendix is unremarkable.PELVIS/BLADDER: The uterus and bilateral ovaries are unremarkable. Theurinary bladder is partially distended and unremarkable.VESSELS: Unremarkable.BONES AND SOFT T ISSUES: No suspicious lytic or sclerotic bony lesions.Partially visualized intramedullary nail and screw fixation of the leftfemur is noted.IMPRESSION1. No acute abdominopelvic process is identified.2. Pancreatic parenchymal atrophy.3. Scattered nodular soft tissue densities in the peritoneal cavity withinterval decrease in size in comparison to the prior exam as describedabove.4. Unchanged circumferential thickening of the gastric antrum-pylorus anddescending/sigmoid colon.5. Stable indeterminate adrenal nodules.Preliminary Report Dictated by Resident: Edward Smalls, Alexsandra Pedro MD., have reviewed this study and agree with the abovereport.[facility]leGLYCOSYLATED HEMOGLOBIN (A1C)2020-08-03 14:40:00* Test Item Value Reference Range Interpretation Comme nts HGB A1C (test code = 4548-4) 5.4 % 4-6 THEODORA (test code = THEODORA) %A1C (NGSP) Interpretation (ADA)4.8-5.6 ? ? Normal or (Non-Diabetic Range)5.7-6.4 ? ? Increased Risk (Pre-Diabetic)>6.5 ?Diabetes Indicated Lab Interpretation (test code = 71637-7) Normal [facility]leCOVID[facility] (ID NOW RAPID TESTING)2020-08-03 14:37:00* Test Item Value Reference Range Interpretation Comme nts SARS-CoV-2 Rapid ID NOW (test code = 21587-7) Not Detected Not Detected THEODORA (test code = THEODORA) ID NOW COVID-19 As say is an isothermal nucleic acid amplification test intended for the qualitative detection of nucleic acid from SARS-CoV-2 viral RNA in nasopharyngeal (GEOSCIENTIST) specimens. It is used under Emergency Use [...] patient testing if clinically indicated. Lab Interpretation (test code = 02518-6) Normal [facility] AzleLIPID PANEL (26655)(TOTAL CHOLESTEROL, TRIGLYCERIDES, HDL)2020-08-03 14:33:00* Test Item Value Reference Range Interpretation Comme nts CHOL (test code = 9952705663) 213 mg/dL 120-200 H HDL (test code = 9583115925) 65 mg/dL >50 HDLC RATIO (test code = 7495077739) See_Comment [Automated [employer] Social] The system which generated this result transmitted reference range: <=4.5. The reference range was not used to interpret this result as normal/abnormal. TRIG (test code = 0686138707) 148 mg/dL 30-170 LDL CHOL (test code = 85251-4) 118 mg/dL See_Comment [Automated [employer] Social] The system which generated this result transmitted reference range: <=160. The reference range was not used to interpret this result as normal/abnormal. VLDL (test code = 2846034531) 30 mg/dL 5-60 Lab Interpretation (test code = 02136-1) Abnormal [facility]. METABOLIC PANEL (18854)2020-08-03 14:32:00* Test Item Value Reference Range Interpretation Comme nts NA (test code = 9690421263) 138 mmol/L 135-145 K (test code = 5430722582) 3.8 mmol/L 3.5-5 CL (test code = 6797371514) 105 mmol/L 98-108 CO2 TOTAL (test code = 6614620491) 23 mmol/L 23-31 AGAP (test code = 8845732769) 2-16 BUN (test code = 8779626293) 13 mg/dL 7-23 GLUCOSE (test code = 2895463054) 160 mg/dL 70-110 H CREATININE (test code = 6226043870) 0.59 mg/dL 0.5-1.04 TOTAL BILI (test code = 4604700219) 0.4 mg/dL 0.1-1.1 CALCIUM (test code = 2228078706) 10.8 mg/dL 8.6-10.6 H T PROTEIN (test code = 5554909964) 7.2 g/dL 6.3-8.2 ALBUMIN (test code = 5195916335) 4.1 g/dL 3.5-5 ALK PHOS (test code = 8605815476) 125 U/L 34-122 H ALTv (test code = 1742-6) 18 U/L 5-35 AST(SGOT) (test code = 1525062139) 24 U/L 13-40 eGFR Calculation (Non-) (test code = 3361862323) mL/min/1.73m2 eGFR Calculation () (test code = 4980849263) mL/min/1.73m2 THEODORA (test code = THEODORA) Association of [...] or abnormalities in imaging tests). Lab Interpretation (test code = 21358-2) [facility]normal [facility]leL[facility]ASE2020-09-21 14:32:00* Test Item Value Reference Range Interpretation Comme nts LIPASE (test code = 2644204051) 40 U/L 0-220 Lab Interpretation (test cod e = 17200-4) Normal [facility] AzleCB WITH [id number] 14:18:00* Test Item Value Reference Range Interpretation Comme nts WBC (test code = 6690-2) See_Comment H [Automated message] The system which generated this result transmitted reference range: 4.30 - 11.10 10*3/?L. The reference range was not used to interpret this result as normal/abnormal. RBC (test code = 789-8) See_Comment [Automated message] The system which generated this result transmitted reference range: 3.93 - 5.25 10*6/?L. The reference range was not used to interpret this result as normal/abnormal. HGB (test code = 718-7) 14.1 g/dL 11.6-15 HCT (test code = 4544-3) 43.5 % 35.7-45.2 MCV (test code = 787-2) 91.4 fL 80.6-95.5 MCH (test code = 785-6) 29.6 pg 25.9-32.8 MCHC (test code = 786-4) 32.4 g/dL 31.6-35.1 RDW-SD (test code = 66196-6) 46.1 fL 39-49.9 RDW-CV (test code = 788-0) 13.6 % 12-15.5 PLT (test code = 777-3) See_Comment [Automated message] The system which generated this result transmitted reference range: 166 - 358 10*3/?L. The reference range was not used to interpret this result as normal/abnormal. MPV (test code = 48527-8) 9.9 fL 9.5-12.9 NRBC/100 WBC (test code = 4976405689) See_Comment [Automated message] The system which generated this result transmitted reference range: 0.0 - 10.0 /100 WBCs. The reference range was not used to interpret this result as normal/abnormal. NRBC x10^3 (test code = 4469122462) <0.01 See_Comment [Automated message] The system which generated this result transmitted reference range: 10*3/?L. The reference range was not used to interpret this result as normal/abnormal. GRAN MAT (NEUT) % (test code = 770-8) 85.5 % IMM GRAN % (test code = 9691237957) 0.70 % LYMPH % (test code = 736-9) 9.6 % MONO % (test code = 5905-5) 3.4 % EOS % (test code = 713-8) 0.4 % BASO % (test code = 706-2) 0.4 % GRAN MAT x10^3(ANC) (test code = 4649600199) 11.69 10*3/uL 1.88-7.09 H IMM GRAN x10^3 (test code = 5942906998) 0.10 10*3/uL 0-0.06 H LYMPH x10^3 (test code = 731-0) 1.32 10*3/uL 1.32-3.29 MONO x10^3 (test code = 742-7) 0.47 10*3/uL 0.33-0.92 EOS x10^3 (test code = 711-2) 0.06 10*3/uL 0.03-0.39 BASO x10^3 (test code = 704-7) 0.06 10*3/uL 0.01-0.07 Lab Interpretation (test code = 50801-2) [facility]normal [facility]leL[facility] Acid Whole [id number] 14:16:00* Test Item Value Reference Range Interpretation Comme nts LACTIC ACID (test code = 9605543007) 3.50 mmol/L [facility] (NA, K, CL, CO2, GLUCOSE, BUN, CREATININE, CA)2020-05-22 07:14:00* Test Item Value Reference Range Interpretation Comme nts NA (test code = 7264589244) 138 mmol/L 135-145 K (test code = 2286366994) 4.0 mmol/L 3.5-5 CL (test code = 7992467609) 109 mmol/L 98-108 H CO2 TOTAL (test code = 9711953827) 25 mmol/L 23-31 AGAP (test code = 5921529940) 2-16 BUN (test code = 3665875037) 8 mg/dL 7-23 GLUCOSE (test code = 1316242954) 95 mg/dL 70-110 CREATININE (test code = 7888466015) 0.50 mg/dL 0.5-1.04 CALCIUM (test code = 7720909689) 9.7 mg/dL 8.6-10.6 eGFR Calculation (Non-) (test code = 1118924185) mL/min/1.73m2 eGFR Calculation () (test code = 4665490517) mL/min/1.73m2 THEODORA (test code = THEODORA) Association of [...] or abnormalities in imaging tests). Lab Interpretation (test code = 68996-0) [facility] 06:58[facility]* Test Item Value Reference Range Interpretation Comme nts MAGNESIUM (test code = 3138239034) 2.2 mg/dL 1.7-2.4 Lab Interpretation (test cod e = 83566-8) [facility] 06:57:00* Test Item Value Reference Range Interpretation Comme nts PHOSPHORUS (test code = 2095876800) 2.8 mg/dL 2.5-5 Lab Interpretation (test cod e = 92242-1) Normal [facility] WITH [id number] 06:33:00* Test Item Value Reference Range Interpretation Comme nts WBC (test code = 6690-2) See_Comment [Automated messa ge] The system which generated this result transmitted reference range: 4.30 - 11.10 10*3/?L. The reference range was not used to interpret this result as normal/abnormal. RBC (test code = 789-8) See_Comment [Automated E-Divers[employer] Yourself[employer] ge] The system which generated this result transmitted reference range: 3.93 - 5.25 10*6/?L. The reference range was not used to interpret this result as normal/abnormal. HGB (test code = 718-7) 12.3 g/dL 11.6-15 HCT (test code = 4544-3) 37.1 % 35.7-45.2 MCV (test code = 787-2) 89.0 fL 80.6-95.5 MCH (test code = 785-6) 29.5 pg 25.9-32.8 MCHC (test code = 786-4) 33.2 g/dL 31.6-35.1 RDW-SD (test code = 97217-6) 49.1 fL 39-49.9 RDW-CV (test code = 788-0) 14.9 % 12-15.5 PLT (test code = 777-3) See_Comment [Automated [employer]self[employer] App] The system which generated this result transmitted reference range: 166 - 358 10*3/?L. The reference range was not used to interpret this result as normal/abnormal. MPV (test code = 53733-1) 10.1 fL 9.5-12.9 NRBC/100 WBC (test code = 8774885377) See_Comment [Automated Lexim ssage] The system which generated this result transmitted reference range: 0.0 - 10.0 /100 WBCs. The reference range was not used to interpret this result as normal/abnormal. NRBC x10^3 (test code = 1230893365) <0.01 See_Comment [Automated Lexim ssage] The system which generated this result transmitted reference range: 10*3/?L. The reference range was not used to interpret this result as normal/abnormal. GRAN MAT (NEUT) % (test code = 770-8) 52.7 % IMM GRAN % (test code = 3043508049) 0.60 % LYMPH % (test code = 736-9) 31.6 % MONO % (test code = 5905-5) 10.4 % EOS % (test code = 713-8) 4.0 % BASO % (test code = 706-2) 0.7 % GRAN MAT x10^3(ANC) (test code = 9163484450) 4.46 10*3/uL 1.88-7.09 IMM GRAN x10^3 (test code = 1865927317) 0.05 10*3/uL 0-0.06 LYMPH x10^3 (test code = 731-0) 2.68 10*3/uL 1.32-3.29 MONO x10^3 (test code = 742-7) 0.88 10*3/uL 0.33-0.92 EOS x10^3 (test code = 711-2) 0.34 10*3/uL 0.03-0.39 BASO x10^3 (test code = 704-7) 0.06 10*3/uL 0.01-0.07 [facility] Metabolic Panel (NA, K, CL, CO2, GLUCOSE, BUN, CREATININE, CA)2020-05-21 19:22:00* Test Item Value Reference Range Interpretation Comme nts NA (test code = 3877365513) 137 mmol/L 135-145 K (test code = 5820060134) 2.9 mmol/L 3.5-5 LL CL (test code = 4558089391) 105 mmol/L 98-108 CO2 TOTAL (test code = 3071304510) 25 mmol/L 23-31 AGAP (test code = 2049587567) 2-16 BUN (test code = 2399226230) 12 mg/dL 7-23 GLUCOSE (test code = 1844658968) 127 mg/dL 70-110 H CREATININE (test code = 8307261294) 0.50 mg/dL 0.5-1.04 CALCIUM (test code = 0167359732) 9.4 mg/dL 8.6-10.6 eGFR Calculation (Non-) (test code = 7894218430) mL/min/1.73m2 eGFR Calculation () (test code = 0794025220) mL/min/1.73m2 THEODORA (test code = THEODORA) Association of [...] or abnormalities in imaging tests). Lab Interpretation (test code = 40043-7) [facility] 19:10:00* Test Item Value Reference Range Interpretation Comme nts MAGNESIUM (test code = 3888841983) 2.6 mg/dL 1.7-2.4 H Lab Interpretation (test cod e = 44680-2) [facility]normal [facility] (ID NOW RAPID TESTING)2020-05-21 06:02:00* Test Item Value Reference Range Interpretation Comme nts SARS-CoV-2 Rapid ID NOW (test code = 33081-6) Not Detected Not Detected THEODORA (test code = THEODORA) ID NOW COVID-19 As say is an isothermal nucleic acid amplification test intended for the qualitative detection of nucleic acid from SARS-CoV-2 viral RNA in nasopharyngeal (GEOSCIENTIST) specimens. It is used under Emergency Use [...] patient testing if clinically indicated. Lab Interpretation (test code = 77544-6) [facility]2020-07-09 04:47:00* Test Item Value Reference Range Interpretation Comme nts MAGNESIUM (test code = 2146397702) 1.6 mg/dL 1.7-2.4 L Slight hemolysis Lab Interpretation (test code = 40932-8) Abnormal [facility]. METABOLIC PANEL (92178)2020-05-21 04:05:00* Test Item Value Reference Range Interpretation Comme nts NA (test code = 1616414592) 136 mmol/L 135-145 K (test code = 2047513460) 2.9 mmol/L 3.5-5 LL CL (test code = 8056024719) 100 mmol/L 98-108 CO2 TOTAL (test code = 3254109993) 22 mmol/L 23-31 L AGAP (test code = 0877007100) 2-16 BUN (test code = 2553440483) 13 mg/dL 7-23 GLUCOSE (test code = 1277116914) 101 mg/dL 70-110 CREATININE (test code = 5056322985) 0.52 mg/dL 0.5-1.04 TOTAL BILI (test code = 3408750763) 1.4 mg/dL 0.1-1.1 H CALCIUM (test code = 9473136694) 10.3 mg/dL 8.6-10.6 T PROTEIN (test code = 0664126061) 8.3 g/dL 6.3-8.2 H ALBUMIN (test code = 2135749690) 4.6 g/dL 3.5-5 ALK PHOS (test code = 3474424571) 83 U/L 34-122 ALTv (test code = 1742-6) 14 U/L 5-35 AST(SGOT) (test code = 2110172848) 28 U/L 13-40 eGFR Calculation (Non-) (test code = 9039931320) mL/min/1.73m2 eGFR Calculation () (test code = 5506966138) mL/min/1.73m2 THEODORA (test code = THEODORA) Association of [...] or abnormalities in imaging tests). Lab Interpretation (test code = 42218-0) [facility]normal [facility] 03:51:00* Test Item Value Reference Range Interpretation Comme nts LIPASE (test code = 4566710219) 17 U/L 0-220 Lab Interpretation (test cod e = 94430-8) [facility] WITH [id number] 03:39:00* Test Item Value Reference Range Interpretation Comme nts WBC (test code = 6690-2) See_Comment H [Automated message] The system which generated this result transmitted reference range: 4.30 - 11.10 10*3/?L. The reference range was not used to interpret this result as normal/abnormal. RBC (test code = 789-8) See_Comment [Automated message] The system which generated this result transmitted reference range: 3.93 - 5.25 10*6/?L. The reference range was not used to interpret this result as normal/abnormal. HGB (test code = 718-7) 14.8 g/dL 11.6-15 HCT (test code = 4544-3) 42.9 % 35.7-45.2 MCV (test code = 787-2) 85.6 fL 80.6-95.5 MCH (test code = 785-6) 29.5 pg 25.9-32.8 MCHC (test code = 786-4) 34.5 g/dL 31.6-35.1 RDW-SD (test code = 48700-7) 45.1 fL 39-49.9 RDW-CV (test code = 788-0) 14.5 % 12-15.5 PLT (test code = 777-3) See_Comment [Automated message] The system which generated this result transmitted reference range: 166 - 358 10*3/?L. The reference range was not used to interpret this result as normal/abnormal. MPV (test code = 36121-0) 10.4 fL 9.5-12.9 NRBC/100 WBC (test code = 6489409247) See_Comment [Automated message] The system which generated this result transmitted reference range: 0.0 - 10.0 /100 WBCs. The reference range was not used to interpret this result as normal/abnormal. NRBC x10^3 (test code = 2206631379) <0.01 See_Comment [Automated message] The system which generated this result transmitted reference range: 10*3/?L. The reference range was not used to interpret this result as normal/abnormal. GRAN MAT (NEUT) % (test code = 770-8) 89.5 % IMM GRAN % (test code = 4144992297) 0.80 % LYMPH % (test code = 736-9) 6.2 % MONO % (test code = 5905-5) 2.9 % EOS % (test code = 713-8) 0.1 % BASO % (test code = 706-2) 0.5 % GRAN MAT x10^3(ANC) (test code = 0538427689) 11.85 10*3/uL 1.88-7.09 H IMM GRAN x10^3 (test code = 5050579458) 0.11 10*3/uL 0-0.06 H LYMPH x10^3 (test code = 731-0) 0.82 10*3/uL 1.32-3.29 L MONO x10^3 (test code = 742-7) 0.38 10*3/uL 0.33-0.92 EOS x10^3 (test code = 711-2) <0.03 0.03-0.39 L BASO x10^3 (test code = 704-7) 0.06 10*3/uL 0.01-0.07 Lab Interpretation (test code = 54283-6) [facility]normal [facility] A[facility] W WO CONTRAST [id number] 16:59:56HISTORY: Chronic pancreatitis. TECHNIQUE: MRI studies of the abdomen were obtained using T2 SSFSE, dualecho FSPGR, coronal VIBE/T2 HASTE, axial DWI, axial LAVA/T2 HASTEsequences. Multiple MRCP studies are also obtained. Multiphasecontrast-enhanced T1 fat-sat LAVA imaging was completed after intraven ousinjection of 12 mL of MultiHance. FINDINGS: Normal [...] aortic aneurysm or enlarged lymphnodes in the retroperitoneum.No pleural effusion or pericardial effusionor free fluid in the upper abdomen. Visualized bones showed no abnormalmarrow signal. CONCLUSIONS:1. Mild diffuse atrophy of the pancreas noted, otherwise MRCP studies.2. 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 [facility], [facility]iant Results Inft User - 05/19/2020 12:01 PM CDTHISTORY: Chronic pancreatitis.TECHNIQUE: MRI studies of the abdomen were obtained using T2 SSFSE, dualecho FSPGR, coronal VIBE/T2 HASTE, axial DWI, axial LAVA/T2 HASTEsequences. Multiple MRCP studies are also obtained. Multiphasecontrast-enhanced T1 fat-sat LAVA imaging was completed after intravenousinjection of 12 mL of MultiHance.FINDINGS: Normal anatomy is demonstrated of the common bile duct,pancreaticduct (both ductal Santorini as well as ventral duct of W[place]joining) with single entrance into papilla of Vater. There is no dilatationof the biliary duct or the pancreatic duct.No gallstones are se en.Liver, spleen, kidneys appear normal.Left adrenal gland lesion is seen [...] but most likelyprobably incidental benign nonfunctioning adenomas. [facility] [id number] 17:44:55Normal hepatobiliary scintigraphy. 1. Prior cholecystectomy.2. No evidence [...] Gallbladder is visualized normally with filling noted at 10 minutes. There is normal biliary to bowel transit. Gallbladder ejection fraction was 82%. [facility] In[facility] User - 05/18/2020 12:46 PM CDTEXAM DESCRIPTION: HEPATOBILIARY SCANCLINICAL HISTORY: Nausea, vomiting Abdominal painCOMPARISON: None. Correlation with abdominal CT 04/05/2020TECHNIQUE:The patient received an intravenous injection of 9.3 mCi technetium 99mmebrofenin and sequentialimages of the abdomen were obtained in the leftanterior oblique projection for one hour.The patientreceived an intravenous injection of 1.1 mcg CCK and dynamicimaging continued for one hour.FINDINGS:Gallbladder is visualized normally with filling noted at 10 minutes. There is normal biliary to bowel transit. Gallbladder ejection fraction was 82%. IMPRESSIONNormal hepatobiliary scintigraphy.1. Prior cholecystectomy.2. No evidence of biliary obstruction or leak. I, Ganga Lee MD., have reviewed this study and agree with the abovereport.[facility] Metabolic [facility] (NA, K, CL, CO2, GLUCOSE, BUN, CREATININE, CA)2020-05-17 11:08:00* Test Item Value Reference Range Interpretation Comme nts NA (test code = 9428055530) 141 mmol/L 135-145 K (test code = 0212680530) 4.0 mmol/L 3.5-5 CL (test code = 3385877722) 113 mmol/L 98-108 H CO2 TOTAL (test code = 5280926992) 23 mmol/L 23-31 AGAP (test code = 7425655553) 2-16 BUN (test code = 0013328468) 11 mg/dL 7-23 GLUCOSE (test code = 6747491795) 86 mg/dL 70-110 CREATININE (test code = 6963626668) 0.59 mg/dL 0.5-1.04 CALCIUM (test code = 0115437729) 10.3 mg/dL 8.6-10.6 eGFR Calculation (Non-) (test code = 7577682533) mL/min/1.73m2 eGFR Calculation () (test code = 9603299940) mL/min/1.73m2 THEODORA (test code = THEODORA) Association of [...] or abnormalities in imaging tests). Lab Interpretation (test code = 81389-7) Abnormal [facility] WITH [id number] 10:19:00* Test Item Value Reference Range Interpretation Comme nts WBC (test code = 6690-2) See_Comment [[facility]] The system which generated this result transmitted reference range: 4.30 - 11.10 10*3/?L. The reference range was not used to interpret this result as normal/abnormal. RBC (test code = 789-8) See_Comment [[facility] [employer]] The system which generated this result transmitted reference range: 3.93 - 5.25 10*6/?L. The reference range was not used to interpret this result as normal/abnormal. HGB (test code = 718-7) 13.7 g/dL 11.6-15 HCT (test code = 4544-3) 43.0 % 35.7-45.2 MCV (test code = 787-2) 91.5 fL 80.6-95.5 MCH (test code = 785-6) 29.1 pg 25.9-32.8 MCHC (test code = 786-4) 31.9 g/dL 31.6-35.1 RDW-SD (test code = 49242-1) 54.3 fL 39-49.9 H RDW-CV (test code = 788-0) 16.0 % 12-15.5 H PLT (test code = 777-3) See_Comment [Automated messa ge] The system which generated this result transmitted reference range: 166 - 358 10*3/?L. The reference range was not used to interpret this result as normal/abnormal. MPV (test code = 08000-9) 10.8 fL 9.5-12.9 NRBC/100 WBC (test code = 1307238803) See_Comment [Automated Lexim ssage] The system which generated this result transmitted reference range: 0.0 - 10.0 /100 WBCs. The reference range was not used to interpret this result as normal/abnormal. NRBC x10^3 (test code = 6494947880) <0.01 See_Comment [Automated messa ge] The system which generated this result transmitted reference range: 10*3/?L. The reference range was not used to interpret this result as normal/abnormal. GRAN MAT (NEUT) % (test code = 770-8) 56.9 % IMM GRAN % (test code = 6499156760) 0.60 % LYMPH % (test code = 736-9) 32.7 % MONO % (test code = 5905-5) 7.2 % EOS % (test code = 713-8) 1.7 % BASO % (test code = 706-2) 0.9 % GRAN MAT x10^3(ANC) (test code = 7549786080) 5.45 10*3/uL 1.88-7.09 IMM GRAN x10^3 (test code = 0725971608) 0.06 10*3/uL 0-0.06 LYMPH x10^3 (test code = 731-0) 3.13 10*3/uL 1.32-3.29 MONO x10^3 (test code = 742-7) 0.69 10*3/uL 0.33-0.92 EOS x10^3 (test code = 711-2) 0.16 10*3/uL 0.03-0.39 BASO x10^3 (test code = 704-7) 0.09 10*3/uL 0.01-0.07 H Lab Interpretation (test code = 47164-1) [facility]normal [facility]XR [id number] 13:32:31No acute intra- abdominal findings. Preliminary Report Dictated by Resident: Lamin Cotton MD., have reviewed this study and agree withthe above report.EXAM: XR KUB HISTORY: n/v COMPARISON: 03/02/2020.. FINDINGS: The bowel gas pattern is unremarkable. No abnormal calcifications or radiopaque stones are identified. No acutebony abnormalities are noted. Left hip intramedullary pin partialvisualized. [facility], [facility] Results Inft User - 05/16/2020 8:33 AM CDTEXAM: XR KUBHISTORY: n/v COMPARISON: 03/02/2020..FINDINGS:The bowel gas pattern is unremarkable. No abnormal calcifications or radiopaque stones are identified. No acutebony abnormalities are noted. Left hip intramedullary pin partialvisualized.IMPRESSIONNo acute intra-abdominal findings.Preliminary Report Dictated by Resident: Lamin Dai MD., have reviewed this study and agree withthe above report.[facility] / [facility] - DRUG SCREEN [id number] 07:34:00* Test Item Value Reference Range Interpretation Comme nts BENZO U (test code = 3979795190) Presumptive Positive Negative A KOTA U (test code = 7946962079) Negative Negative AMPHET (test code = 5338999343) Negative Negative THC (test code = 7617760113) Presumptive Positive Negative A Confirmation of Presumptive Positive THC result requires physician order. METHADONE (test code = 1627599053) Negative Negative Meth U (test code = 3205893915) Negative Negative OPIATES (test code = 7199248517) Negative Negative Cocaine Metabolite (test code = 5618245603) Negative Negative PROPOXY (test code = 1882217681) Negative Negative Tric U (test code = 7016460641) Negative Negative PCP (test code = 2353433248) Negative Negative OXYCOD (test code = 1576385975) Negative Negative THEODORA (test code = THEODORA) Urine Drug Cutoff Ranges Benzodiazepines: ? ? 150 ng/mLBarbiturates : [...] employment testing, legal testing). Lab Interpretation (test code = 78243-6) [facility] (ID NOW RAPID TESTING)2020-05-16 05:44:00* Test Item Value Reference Range Interpretation Comme nts SARS-CoV-2 Rapid ID NOW (test code = 32937-4) Not Detected Not Detected THEODORA (test code = THEODORA) ID NOW COVID-19 As say is an isothermal nucleic acid amplification test intended for the qualitative detection of nucleic acid from SARS-CoV-2 viral RNA in nasopharyngeal (GEOSCIENTIST) specimens. It is used under Emergency Use [...] patient testing if clinically indicated. Lab Interpretation (test code = 02129-5) Normal [facility]le[facility]inalysis2020-07-04 05:21:00* Test Item Value Reference Range Interpretation Comme nts APPEARANCE (test code = 1399004168) Hazy Clear A COLOR (test code = 6807150301) Yellow Yellow PH (test code = 1569901603) 4.8-8.0 SP GRAVITY (test code = 5958987533) 1.003-1.030 GLU U QUAL (test code = 4644368065) 50 mg/dL Normal A BLOOD (test code = 5091601960) Negative Negative KETONES (test code = 9041520679) 20 mg/dL Negative A PROTEIN (test code = 2887-8) Negative Negative UROBILIN (test code = 3747045279) Normal Normal BILIRUBIN (test code = 5993159818) Negative Negative NITRITE (test code = 0144605340) Negative Negative LEUK BIRDIE (test code = 6889080380) Negative Negative RBC/HPF (test code = 6409199457) See_Comment H [Automated E-Divers[employer] Yourselfa ge] The system which generated this result transmitted reference range: 0 - 3 HPF. The reference range was not used to interpret this result as normal/abnormal. WBC/HPF (test code = 7588002483) See_Comment [Automated E-Divers[employer] Yourselfa ge] The system which generated this result transmitted reference range: 0 - 5 HPF. The reference range was not used to interpret this result as normal/abnormal. BACTERIA (test code = 0767269825) Few Negative A MUCOUS (test code = 2095736151) Moderate Negative LPF A SQ EPITH (test code = 1743440876) HPF Lab Interpretation (test code = 94564-5) Abnormal [facility] Metabolic Panel (NA, K, CL, CO2, GLUCOSE, BUN, CREATININE, CA)2020-05-16 02:56:00* Test Item Value Reference Range Interpretation Comme nts NA (test code = 7074113881) 138 mmol/L 135-145 K (test code = 7016944515) 3.4 mmol/L 3.5-5 L CL (test code = 7295047731) 106 mmol/L 98-108 CO2 TOTAL (test code = 8917271174) 22 mmol/L 23-31 L AGAP (test code = 5556316821) 2-16 BUN (test code = 0774463913) 21 mg/dL 7-23 GLUCOSE (test code = 9201675001) 164 mg/dL 70-110 H CREATININE (test code = 4659039980) 0.59 mg/dL 0.5-1.04 CALCIUM (test code = 5765257874) 11.2 mg/dL 8.6-10.6 H eGFR Calculation (Non-) (test code = 7691380500) mL/min/1.73m2 eGFR Calculation () (test code = 2479927912) mL/min/1.73m2 THEODORA (test code = THEODORA) Association of [...] or abnormalities in imaging tests). Lab Interpretation (test code = 26080-1) [facility]normal [facility] (ALB, T.PRO, BILI T, BU/BC, ALT, AST, ALK PHOS)2020-05-16 02:56:00* Test Item Value Reference Range Interpretation Comme nts TOTAL BILI (test code = 8022395781) 0.9 mg/dL 0.1-1.1 BILI UNCON (test code = 5420948138) 1.0 mg/dL 0.1-1.1 BILI CONJ (test code = 3217151410) 0.0 mg/dL 0-0.3 T PROTEIN (test code = 9459305764) 8.3 g/dL 6.3-8.2 H ALBUMIN (test code = 8195607105) 4.6 g/dL 3.5-5 ALK PHOS (test code = 1551551791) 102 U/L 34-122 ALTv (test code = 1742-6) 19 U/L 5-35 AST(SGOT) (test code = 3341106618) 29 U/L 13-40 Lab Interpretation (test cod e = 49017-9) [facility]normal [facility]leLip[facility] [id number] 02:56:00* Test Item Value Reference Range Interpretation Comme nts LIPASE (test code = 3271107025) 29 U/L 0-220 Lab Interpretation (test cod e = 60130-5) [facility] WITH [id number] 02:41:00* Test Item Value Reference Range Interpretation Comme nts WBC (test code = 6690-2) See_Comment H [Automated message] The system which generated this result transmitted reference range: 4.30 - 11.10 10*3/?L. The reference range was not used to interpret this result as normal/abnormal. RBC (test code = 789-8) See_Comment [Automated message] The system which generated this result transmitted reference range: 3.93 - 5.25 10*6/?L. The reference range was not used to interpret this result as normal/abnormal. HGB (test code = 718-7) 14.6 g/dL 11.6-15 HCT (test code = 4544-3) 43.3 % 35.7-45.2 MCV (test code = 787-2) 86.3 fL 80.6-95.5 MCH (test code = 785-6) 29.1 pg 25.9-32.8 MCHC (test code = 786-4) 33.7 g/dL 31.6-35.1 RDW-SD (test code = 79600-2) 46.8 fL 39-49.9 RDW-CV (test code = 788-0) 14.9 % 12-15.5 PLT (test code = 777-3) See_Comment [Automated message] The system which generated this result transmitted reference range: 166 - 358 10*3/?L. The reference range was not used to interpret this result as normal/abnormal. MPV (test code = 73759-0) 10.1 fL 9.5-12.9 NRBC/100 WBC (test code = 6142429061) See_Comment [Automated message] The system which generated this result transmitted reference range: 0.0 - 10.0 /100 WBCs. The reference range was not used to interpret this result as normal/abnormal. NRBC x10^3 (test code = 2692145860) <0.01 See_Comment [Automated message] The system which generated this result transmitted reference range: 10*3/?L. The reference range was not used to interpret this result as normal/abnormal. GRAN MAT (NEUT) % (test code = 770-8) 90.5 % IMM GRAN % (test code = 5862544564) 0.60 % LYMPH % (test code = 736-9) 6.4 % MONO % (test code = 5905-5) 2.2 % EOS % (test code = 713-8) 0.0 % BASO % (test code = 706-2) 0.3 % GRAN MAT x10^3(ANC) (test code = 3741738451) 15.84 10*3/uL 1.88-7.09 H IMM GRAN x10^3 (test code = 9510449286) 0.10 10*3/uL 0-0.06 H LYMPH x10^3 (test code = 731-0) 1.12 10*3/uL 1.32-3.29 L MONO x10^3 (test code = 742-7) 0.38 10*3/uL 0.33-0.92 EOS x10^3 (test code = 711-2) <0.03 0.03-0.39 L BASO x10^3 (test code = 704-7) 0.05 10*3/uL 0.01-0.07 Lab Interpretation (test code = 58266-2) Abnormal [facility] METABOLIC PANEL (NA, K, CL, CO2, GLUCOSE, BUN, CREATININE, CA)2020-04-07 10:06:00* Test Item Value Reference Range Interpretation Comme nts NA (test code = 7024926144) 139 mmol/L 135-145 K (test code = 8257560199) 3.4 mmol/L 3.5-5 L CL (test code = 0228226603) 104 mmol/L 98-108 CO2 TOTAL (test code = 1767071449) 25 mmol/L 23-31 AGAP (test code = 8726795897) 2-16 BUN (test code = 4808841388) 11 mg/dL 7-23 GLUCOSE (test code = 8160110276) 113 mg/dL 70-110 H CREATININE (test code = 9314139922) 0.44 mg/dL 0.5-1.04 L CALCIUM (test code = 4893235598) 10.0 mg/dL 8.6-10.6 eGFR Calculation (Non-) (test code = 7373352673) mL/min/1.73m2 eGFR Calculation () (test code = 6790490424) mL/min/1.73m2 THEODORA (test code = THEODORA) Association of [...] or abnormalities in imaging tests). Lab Interpretation (test code = 61309-1) Abnormal [facility] WITH [id number] 09:38:00* Test Item Value Reference Range Interpretation Comme nts WBC (test code = 6690-2) See_Comment H [Automated message] The system which generated this result transmitted reference range: 4.30 - 11.10 10*3/?L. The reference range was not used to interpret this result as normal/abnormal. RBC (test code = 789-8) See_Comment [Automated message] The system which generated this result transmitted reference range: 3.93 - 5.25 10*6/?L. The reference range was not used to interpret this result as normal/abnormal. HGB (test code = 718-7) 13.6 g/dL 11.6-15 HCT (test code = 4544-3) 41.3 % 35.7-45.2 MCV (test code = 787-2) 88.4 fL 80.6-95.5 MCH (test code = 785-6) 29.1 pg 25.9-32.8 MCHC (test code = 786-4) 32.9 g/dL 31.6-35.1 RDW-SD (test code = 05383-6) 47.5 fL 39-49.9 RDW-CV (test code = 788-0) 14.8 % 12-15.5 PLT (test code = 777-3) See_Comment [Automated message] The system which generated this result transmitted reference range: 166 - 358 10*3/?L. The reference range was not used to interpret this result as normal/abnormal. MPV (test code = 74301-9) 11.0 fL 9.5-12.9 NRBC/100 WBC (test code = 2810695257) See_Comment [Automated message] The system which generated this result transmitted reference range: 0.0 - 10.0 /100 WBCs. The reference range was not used to interpret this result as normal/abnormal. NRBC x10^3 (test code = 9360951773) <0.01 See_Comment [Automated message] The system which generated this result transmitted reference range: 10*3/?L. The reference range was not used to interpret this result as normal/abnormal. GRAN MAT (NEUT) % (test code = 770-8) 83.9 % IMM GRAN % (test code = 3688251019) 0.60 % LYMPH % (test code = 736-9) 10.0 % MONO % (test code = 5905-5) 5.1 % EOS % (test code = 713-8) 0.0 % BASO % (test code = 706-2) 0.4 % GRAN MAT x10^3(ANC) (test code = 3680698913) 10.44 10*3/uL 1.88-7.09 H IMM GRAN x10^3 (test code = 3393968573) 0.07 10*3/uL 0-0.06 H LYMPH x10^3 (test code = 731-0) 1.25 10*3/uL 1.32-3.29 L MONO x10^3 (test code = 742-7) 0.63 10*3/uL 0.33-0.92 EOS x10^3 (test code = 711-2) <0.03 0.03-0.39 L BASO x10^3 (test code = 704-7) 0.05 10*3/uL 0.01-0.07 Lab Interpretation (test code = 45366-5) [facility] 16:49:00* Test Item Value Reference Range Interpretation Comme nts POCT GLU (test code = 0350336995) 114 mg/dL 70-110 H Lab Interpretation (test cod e = 31615-1) Abnormal [facility]leUS GALL [id number] 14:42:32No cholelithiasis or sonographic evidence of cholecystitis. Preliminary Report Dictated by Resident: Rey Pierce MD., have reviewed this study and agree with the abovereport.US GALL BLADDER HISTORY: 44 years-old; Female; N/V COMPARISON: Abdominopelvic CT 04/05/2020 FINDINGS: LIVER: The liver is normal in size and measures 15 cm. Normal echotexture,echogenicity, and contour Nofocal hepatic lesion. ?Hepatopetal ?flowwithin the main portal vein. GALLBLADDER: There is no cholelithiasis, wall thickening (3 mm),gallbladder distention, or pericholecystic fluid. Negative sonographicMurphy's sign. ?The common bile duct measures 4 mm. PANCREAS: Incompletely visualized due to over lying bowel gas. RIGHT KIDNEY: The partially visualized right kidney is unremarkable. [facility], RadiantResults Inft User - 04/06/2020 9:43 AM CDTUS GALL BLADDER HISTORY: 44 years-old; Female; N/V COMPARISON: Abdominopelvic CT 04/05/2020 FINDINGS: LIVER: The liver is normal in size and measures 15 cm. No rmal echotexture,echogenicity, and contour No focal hepatic lesion. Hepatopetal flowwithin the mainportal vein. GALLBLADDER: There is no cholelithiasis, wall thickening (3 mm),gallbladder distention, or pericholecystic fluid. Negative sonographicMurphy's sign. The common bile duct measures 4 mm.PANCREAS: Incompletely visualized due to overlying bowel gas.RIGHT KIDNEY: The partially visualized right kidney is unremarkable.IMPRESSIONNo cholelithiasis or sonographic evidence of cholecystitis.Preliminary Report Dictated by Resident: Marisel Phipps, Rey Santana MD., have reviewed this study and agree with the abovereport.[facility] (NA, K, CL, CO2, GLUCOSE, BUN, CREATININE, CA)2020-04-06 10:17:00* Test Item Value Reference Range Interpretation Comme nts NA (test code = 4092219020) 139 mmol/L 135-145 K (test code = 1870686938) 3.2 mmol/L 3.5-5 L CL (test code = 4700717602) 106 mmol/L 98-108 CO2 TOTAL (test code = 1542567798) 22 mmol/L 23-31 L AGAP (test code = 3474742056) 2-16 BUN (test code = 3917281848) 12 mg/dL 7-23 GLUCOSE (test code = 4817520787) 115 mg/dL 70-110 H CREATININE (test code = 7063982460) 0.43 mg/dL 0.5-1.04 L CALCIUM (test code = 8710611727) 9.9 mg/dL 8.6-10.6 eGFR Calculation (Non-) (test code = 2718041357) mL/min/1.73m2 eGFR Calculation () (test code = 9590683923) mL/min/1.73m2 THEODORA (test code = THEODORA) Association of [...] or abnormalities in imaging tests). Lab Interpretation (test code = 81262-5) [facility]normal [facility] (ID NOW RAPID TESTING)2020-04-06 00:45:00* Test Item Value Reference Range Interpretation Comme nts SARS-CoV-2 Rapid ID NOW (test code = 36862-7) Not Detected Not Detected THEODORA (test code = THEODORA) ID NOW COVID-19 As say is an isothermal nucleic acid amplification test intended for the qualitative detection of nucleic acid from SARS-CoV-2 viral RNA in nasopharyngeal (GEOSCIENTIST) specimens. It is used under Emergency Use [...] patient testing if clinically indicated. Lab Interpretation (test code = 35642-0) Normal [facility] ABDOMEN PELVIS W [id number] 00:41:36No acute intra-abdominal or pelvic abnormality. Colonic diverticulosis. Marked descending and sigmoid colon circumferentialwall thickening results in significant luminal narrowing. These findingsremain similar to most recent comparison CT dated 03/03/2020. This may beseen with colitis. Stable scattered nodular densities through the peritoneal cavity. Indeterminate bilateral 1.4 cm adrenal nodules.Hepatosteatosis. Preliminary Report Dictated by Resident: Lamin Landrum ?MD Josue., have reviewed this study and agree withthe above report.EXAM: CT ABDOMEN AND PELVIS WITH CONTRAST HISTORY: 44-year-old female with "abdominal pain, fever, abscesssuspected". Pathology for peritoneal implant biopsy resulted no malignancy.Colonoscopy performed February 2020 resulted in no findings to suggestmalignancy. COMPARISON: CT abdomen and pelvis with contrast 03/03/2020. DOSE: 258mGycmTECHNIQUE AND FINDINGS: Contiguous axial imaging from the level of the lungbases through the pubic symphysis was performed after the uncomplicatedadministration of 120 cc of intravenous Omnipaque contrast. Coronal andsagittal reconstructions were obtained. ?Auto mA and/or iterativereconstruction were used to reduce radiation dose. FINDINGS: LOWER THORAX: The lungs bases are clear. No cardiomegaly. LIVER: Diffuse hypoattenuation of the liver is seen. Normal contour. Nofocal hepatic lesions. ?Normal contour. GALLBLADDER AND BILIARY TREE: No biliary ductal dilation. ?No gallbladderwall thickening. SPLEEN: No splenomegaly. PANCREAS: No ductal dilation or mass. ADRENAL GLANDS: Heterogeneous bilateral adrenal gland lesions measuring 1.4cm are seen. KIDNEYS: No hydronephrosis, stones, or masses. PERITONEUM AND RETROPERITONEUM: No free air or fluid. Multiple scattered soft tissue densities are noted along the peritonealcavity, for example:-Inferior to the pancreatic tail, measuring approximately 3.9 x 3.1 cm,unchanged.-Left paracolic gutter, measuring 2.3 cm in AP dimension, previously 2.5cm.-Right paracolic gutter measuring 3.6 cm, unchanged. LYMPH NODES: No enlarged abdominal or pelvic lymph nodes are seen. ?0.7 cmpericolonic lymph node is seen (2:76). GI TRACT: No dilation or wall thickening. Normal appendix (2:90).Descending and sigmoid diverticulosis. Marked circumferential wallthickening of the descending and proximal sigmoid colon (4:42), similar tomost recent comparison CT dated 03/03/2020.. PELVIS/BLADDER: The urinary bladder is mildly distended without wallthickening. Theuterus and ovaries are unremarkable. Small volume fluid inthe dependent portion of the pelvis, likely physiologic. VESSELS: Unremarkable. BONES AND SOFT TISSUES: No suspicious lytic or sclerotic bony lesions.Intramedullary nail fixation of the left femur is partially visualized. [facility], Radiant Results Inft User - 04/05/2020 7:42 PM CDTEXAM: CT ABDOMEN AND PELVIS WITH CONTRASTHISTORY: 44-year-old female with "abdominal pain, fever, abscesssuspected". Pathology for peritoneal implant biopsy resulted no malignancy.Colonoscopy performed February 2020 resulted in no findings to suggestmalignancy.COMPARISON: CT abdomen and pelvis with contrast 03/03/2020.DOSE: 258mGycmTECHNIQUE AND FINDINGS: Contiguous axial imaging from the level of the lungbases through the pubic symphysis was performed after the u ncomplicatedadministration of 120 cc of intravenous Omnipaque contrast. Coronal andsagittal reconstructions were obtained. Auto mA and/or iterativereconstruction were used to reduce radiation dose.FINDINGS:LOWER THORAX: The lungs bases are clear. No cardiomegaly.LIVER: Diffuse hypoattenuation of the liver is seen. Normal contour. Nofocal hepatic lesions. Normal contour.GALLBLADDER AND BILIARY TREE: [...] of the pelvis, likely physiologic.VESSELS: Unremarkable.BONES AND SOFTTISSUES: No suspicious lytic or sclerotic bony lesions.Intramedullary nail fixation of the left femur is partially visualized.IMPRESSIONNo acute intra-abdominal or pelvic abnormality.Colonic diverticulosis. Marked descending and sigmoid colon circumferentialwall thickening results in significant luminal narrowing. These findingsremain similar to most recent comparison CT dated 03/03/2020. This maybeseen with colitis. Stable scattered nodular densities through the peritoneal cavity.Indeterminatebilateral 1.4 cm adrenal nodules.Hepatosteatosis.Preliminary Report Dictated by Resident: Jasen Schuler, Lamin Salas MD., have reviewed this study and agree withthe above report.[facility] [id number] 23:31:00* Test Item Value Reference Range Interpretation Comme nts APPEARANCE (test code = 2806033023) Clear Clear COLOR (test code = 8552190465) Yellow Yellow PH (test code = 6001029870) 4.8-8.0 SP GRAVITY (test code = 4453109218) 1.003-1.030 GLU U QUAL (test code = 6049197849) 50 mg/dL Normal A BLOOD (test code = 8246024498) Negative Negative KETONES (test code = 1228337803) 80 mg/dL Negative A PROTEIN (test code = 2887-8) Negative Negative UROBILIN (test code = 3407619576) Normal Normal BILIRUBIN (test code = 0674731694) Negative Negative NITRITE (test code = 3278596587) Negative Negative LEUK BIRDIE (test code = 5135179281) Negative Negative RBC/HPF (test code = 7829807341) See_Comment [Automated messa ge] The system which generated this result transmitted reference range: 0 - 3 HPF. The reference range was not used to interpret this result as normal/abnormal. WBC/HPF (test code = 1051408461) <1 See_Comment [Automated messa ge] The system which generated this result transmitted reference range: 0 - 5 HPF. The reference range was not used to interpret this result as normal/abnormal. BACTERIA (test code = 4330368549) Few Negative A MUCOUS (test code = 2037674943) Slight Negative LPF A SQ EPITH (test code = 7290424188) HPF HYAL CAST (test code = 6054933620) See_Comment [Automated messa ge] The system which generated this result transmitted reference range: <=2 LPF. The reference range was not used to interpret this result as normal/abnormal. Lab Interpretation (test code = 47237-3) Abnormal [facility] / [facility] - DRUG SCREEN [id number] 23:25:00* Test Item Value Reference Range Interpretation Comme nts BENZO U (test code = 7970439575) Negative Negative KOTA U (test code = 8226332622) Negative Negative AMPHET (test code = 9002570042) Negative Negative THC (test code = 6852774389) Presumptive Positive Negative A Confirmation of Presumptive Positive THC result requires physician order. METHADONE (test code = 0123127515) Negative Negative Meth U (test code = 7139074105) Negative Negative OPIATES (test code = 6196008806) Presumptive Positive Negative A Cocaine Metabolite (test code = 3008257371) Negative Negative PROPOXY (test code = 7757532750) Negative Negative Tric U (test code = 7005864436) Negative Negative PCP (test code = 3026544993) Negative Negative OXYCOD (test code = 8823229053) Negative Negative THEODORA (test code = THEODORA) Urine Drug Cutoff Ranges Benzodiazepines: ? ? 150 ng/mLBarbiturates : [...] employment testing, legal testing). Lab Interpretation (test code = 88001-5) [facility]normal [facility]leETHANOL2020-05-24 23:06:00* Test Item Value Reference Range Interpretation Comme nts ALCOHOL (test code = 3779505552) <10 mg/dL THEODORA (test code = THEODORA) <10 [id number] Toxic>100 Depression of DINKEY ENGINEER>400 Fatalities Reported [facility]leTROPONIN [id number] 23:02:00* Test Item Value Reference Range Interpretation Comme nts TROPONIN I (test code = 2623523991) <0.012 See_Comment [Automated message] The system which generated this result transmitted reference range: <=0.034 ng/mL. The reference range was not used to interpret this result as normal/abnormal. THEODORA (test code = THEODORA) Equal or [...] use of biotin. ? Lab Interpretation (test code = 45303-2) Normal [facility]le[facility]. METABOLIC PANEL (77425)2020-04-05 22:51:00* Test Item Value Reference Range Interpretation Comme nts NA (test code = 4529856521) 141 mmol/L 135-145 K (test code = 6137300734) 3.9 mmol/L 3.5-5 CL (test code = 8548717711) 109 mmol/L 98-108 H CO2 TOTAL (test code = 2648564006) 21 mmol/L 23-31 L AGAP (test code = 6325253313) 2-16 BUN (test code = 3284941832) 13 mg/dL 7-23 GLUCOSE (test code = 3501374936) 159 mg/dL 70-110 H CREATININE (test code = 4846124623) 0.47 mg/dL 0.5-1.04 L TOTAL BILI (test code = 8554794648) 0.9 mg/dL 0.1-1.1 CALCIUM (test code = 8585859559) 10.6 mg/dL 8.6-10.6 T PROTEIN (test code = 5626987522) 7.7 g/dL 6.3-8.2 ALBUMIN (test code = 0721736166) 4.4 g/dL 3.5-5 ALK PHOS (test code = 7648617091) 105 U/L 34-122 ALTv (test code = 1742-6) 13 U/L 5-35 AST(SGOT) (test code = 7805925905) 29 U/L 13-40 eGFR Calculation (Non-) (test code = 9193253297) mL/min/1.73m2 eGFR Calculation () (test code = 7894262288) mL/min/1.73m2 THEODORA (test code = THEODORA) Association of [...] or abnormalities in imaging tests). Lab Interpretation (test code = 47970-1) Abnormal [facility]le[facility]IPASE2020-05-24 22:51:00* Test Item Value Reference Range Interpretation Comme nts LIPASE (test code = 5234339187) 34 U/L 0-220 Lab Interpretation (test cod e = 18361-3) Normal [facility]leMAGNESIUM2020-05-24 22:51:00* Test Item Value Reference Range Interpretation Comme nts MAGNESIUM (test code = 0849215326) 1.7 mg/dL 1.7-2.4 Lab Interpretation (test cod e = 73497-6) Normal [facility]leCB WITH [id number] 22:37:00* Test Item Value Reference Range Interpretation Comme nts WBC (test code = 6690-2) See_Comment H [Automated message] The system which generated this result transmitted reference range: 4.30 - 11.10 10*3/?L. The reference range was not used to interpret this result as normal/abnormal. RBC (test code = 789-8) See_Comment [Automated message] The system which generated this result transmitted reference range: 3.93 - 5.25 10*6/?L. The reference range was not used to interpret this result as normal/abnormal. HGB (test code = 718-7) 15.0 g/dL 11.6-15 HCT (test code = 4544-3) 45.6 % 35.7-45.2 H MCV (test code = 787-2) 89.2 fL 80.6-95.5 MCH (test code = 785-6) 29.4 pg 25.9-32.8 MCHC (test code = 786-4) 32.9 g/dL 31.6-35.1 RDW-SD (test code = 12380-8) 47.7 fL 39-49.9 RDW-CV (test code = 788-0) 14.6 % 12-15.5 PLT (test code = 777-3) See_Comment [Automated message] The system which generated this result transmitted reference range: 166 - 358 10*3/?L. The reference range was not used to interpret this result as normal/abnormal. MPV (test code = 32159-2) 10.5 fL 9.5-12.9 NRBC/100 WBC (test code = 6990308517) See_Comment [Automated message] The system which generated this result transmitted reference range: 0.0 - 10.0 /100 WBCs. The reference range was not used to interpret this result as normal/abnormal. NRBC x10^3 (test code = 0385693136) <0.01 See_Comment [Automated message] The system which generated this result transmitted reference range: 10*3/?L. The reference range was not used to interpret this result as normal/abnormal. GRAN MAT (NEUT) % (test code = 770-8) 89.0 % IMM GRAN % (test code = 8437312100) 0.60 % LYMPH % (test code = 736-9) 7.3 % MONO % (test code = 5905-5) 2.7 % EOS % (test code = 713-8) 0.1 % BASO % (test code = 706-2) 0.3 % GRAN MAT x10^3(ANC) (test code = 1181705990) 10.74 10*3/uL 1.88-7.09 H IMM GRAN x10^3 (test code = 3854366316) 0.07 10*3/uL 0-0.06 H LYMPH x10^3 (test code = 731-0) 0.88 10*3/uL 1.32-3.29 L MONO x10^3 (test code = 742-7) 0.32 10*3/uL 0.33-0.92 L EOS x10^3 (test code = 711-2) <0.03 0.03-0.39 L BASO x10^3 (test code = 704-7) 0.04 10*3/uL 0.01-0.07 Lab Interpretation (test code = 37755-4) Abnormal [facility] [id number] 15:05:00* Test Item Value Reference Range Interpretation Comme nts Case Report (test code = 2293314503) Surgical Pathology ?Case: [id number] ? Authorizing Provider: ?Nohemi Magallon MD ?Collected: ? 03/04/2020 1004 ?Ordering Location: ? ? [facility] ? ? ?Received: ?03/04/2020 1548 ? [facility] ?Pathologist: ? Claudette Singh MD ? Specimen: ? ?STOMACH, antrum ? Final Diagnosis (test code = 5034575486) s4jybGOqNQKig7ucXHDtpS FuZzEwMzNcZnRuYmpcdWMx LGypanAlFQwil9BcX0UwBd AwMFxhbnNpXGRlZmxhbmcx VBQpDSG8kaEjKTTwKQyoJG ZcGCviNf1qjAQmlIqeZiOq BJQqc7rilaLRjtgjvLd3mM jjA70jv0R1SjwpE0aaYUYr CTckXAVaADzfhCQpDPD5PH QiDKL6WSwaoaRosfF4DNbb tZBwXxH3FKz0s3ykwCdqON UgZOU7w0yoEDcuhfGiZB9m nu3wxBq0u2xhbvUnOENjXJ PzwUYHTLBeM2HrkWsdIp6c iSc9qUmoQyymGDV7Vsu7EP 6rsp70tgf9jVpxISWysbgp WtX3JTopGMLpyoxcPBr3ZJ koDSLsgJHtULNcmXHvB8Bo TIqlFS6kyrn7ZqPyEE6bxk rhBBdcOTKqZFS3KfPqUUEg m5DfknldQmFgyp1yxb77KL B2g0GmxPcwMNR4CDN8FbEm Uy2kpUYaLCZoIJ3nJrQvrK YeZXAtlb23vDnlBMvuldTb tW1cOxFiFLUzjSVyNBSpNM 1snMJuANTnyP3dmzszAMDj YnJkcmhlYWRccGdicmRyZm 0yeLfgCOG3KQgmZ5dzcU9n KnV4MWhrL4kdbQ5wLIz8VG foiZF4YRCumZ5jXJ1crpuw j7fdNIN8UCxwAYTkueG8bo NwOHQlcTIaN5KvoP95YiKi gEUaM0PwqZ8nRWzuCDAeac o6WyGhGs3nuYVagEX0WNiv YmtwYWdlXHBnbmNvbnRccG duZGVjXHBsYWluXHBsYWlu XGYwXGZzMjBccWxccGxhaW 5cZjBcZnMyMFxwbGFpblxm MFxmczIwXHBhclxwYXJkXH BsYWluXGYwXGZzMjBccGxh rE4pSrYqSeNhDFZVIzPZFO 4IMKYUETBYKcMKFV9aZMTF A3XIZViraILcRKTsMC5xP1 FTVFJJQyBBTlRSQUwgTVVD B2ZUNZnKTExgHoDJC0UVFn AuY6MHNRNGQZRBHDgahYXk QDRoOD2iVr9cMUQBXKZUYV wnI2NuMA5USCPWDW9TKWRL OHGXISrZC0cZJHrFEG7WNL ZJRURccGFyXHFsXHBsYWlu GYBzSSVvDeUdfKvgxJ6bRq ThOpIbUOIlUBMuBV5MGLcf JCANIN1UAY3EBWzVRG1FD2 FOSVNNUyBJREVOVElGSUVE KDUqtaouRMS1s8semYAcMT EvnWZnQkYrBQSqWFFai3ot ZGVmbGFuZzEwMzNcZnRuYm ysbEFoSJDvHzNjc5gtz018 lALly7avIMZiFzK7lHPeTT VvoXoffpk9vUooMdHzOOMt q3otzyNcHgBpEDKpKPZwLR KlrQWyZ976PAAhVQsxm9fg z6QzGPYwoMSwy9Y3ZSILTC emLvFeV981l4bua0daqjVw rFZ5LSIoBIH5TXmyeiZtvc F8HBjjqOOrYeY9DEpzniFe NVbeseIakgQzRmo6LFCsY7 04BEC0pPoiz0qjTVE3WBXi NEYhYzqeVb1qtEGcP006DI CqEDZFOSWgdOa1EYCdtpEv kqHusAKTy740O837l9qmBL CkyrLxzBfGhqqxz7dmW979 XHBhcGVydzEyMjQwXHBhcG ExiFT7OHYgFW4qpjlmNPxx IIzsQVUxfcV4OOTewWBgT0 KeXMHrKY3xeepgMEV3AAlz RIPxPXA9GfBnLYPhn5Uirh q8JcUpkr4tgt78VSJ6u9Zt tRfaXPU1MYX0SmWuZz2mfR YxFZGcZC2zWbViqIJvLOJx bg59jUlxLVujnoAylQ3dWc HoMVPvsMWgQIWtPV0avBRs UUNshJ4qtxecFEBtRxYqqh vpWBKfrVbtelQeQw0zaMve JNO7SVelJ0ndzY7bPcE5PX rfI5dtwA9qPLm4ZFuslUJ3 BEDbuX0gRZ6wvmqna8elVN veLAyaSSHkvdC2ekJ4YYRe qYDyY9CdkP2kLDZzHR1vmv trj0bwNAX0UVcbEEDoQOJ3 JhWnMJVuf7Qispc4KbObg8 MztSYsXWsvY70gf111VOTd ohRvR6rriLJjnjyurNMlyl sqDPcsrrT1YZBgYGVyRVfv XGYxXGZzMjBcbGFuZzEwMz NcaGljaFxmMVxkYmNoXGYx UZndC0efNhTuU1NuSGXuBz RevKYaHPlegQW0BMSeGIAb d46jkFb1CZGrrlvyk9CaTY DubYIxrLVpfR3lypPcc8vn THRoGBDqMKWzC0ElIRK1bO YeOXBspASrlHS3OJ2qauIe SC1cBKMaJzqgmjVteFGgsk TrMBDxCQlpt1seSB9oJRFp uZhyyB5tzRF6RVDwf5cbfF RcsDHxv4hyu9PhuqBqFDfg BNDtFXyqRDJhYFRrFB4lTR DkfTBtohQxc9X9FzukqKWg hnqpUfwrhmL2OMidfapdDS AzYMbnM6bzEmQdKVOncVur Lwyky2DpLBHlFJMzZwaiqX FyfX0= Clinical Information (test code = 7697567526) Abnormal CT Gross Description (test code = 9212914988) q2gghEKlDESozJOgBaEvFR BiNPJjf3klELMttFRrHxPn MzNcZnRuYmpcdWMxXGRlZm Izn2tpa116aCSdy5ooUUHa KuB9cZBkWRWsxWTyT852PB DwQQcrj6ahj7OiTJEsnBOc d9C3PMZZnkoyvYo8l4kaTw FqBbF0nVKyDYxlS9sdxxHj tGFlPKGhZ0OzkrOUTRZsQj k6fLttK70hz9V4KdlxB4qe ZWQwXGdyZWVuMFxibHVlMC P5ZNWxJIV8FSwkspRntbA3 PWjmpLXwAxF5BXy8i0puhY gxOIWkEOL5n9ejYIdjruVd II0yms5bbQw9l1bijzSuPP YnHSVigBVGVLGxA3LwaOjg Ap8gvLl0wTyqPgnaSVZ8Fi y6FW2pvv73hfu9zVepNNXz wrxnLjA2OQdwQUBrzgqyTV w0WImkHYHeyMZzCVGcePRl P4RqGAukFV8lmbv5LeGnGS 0zxlgaCNizGUNtLZZ6ZjZt OEMty9XsrcdrRwWlvw2jut 69NYO5e8TgvIvwNXY6HXY7 WhAsFt0foQDsINMfIC5sTr XtbZGbDHWwiy84uEftEPhz mqLvxP3uOmFiAJIytBQnUZ MtYR3mtCQjZQLnpH3jnokr XHBnYnJkcmhlYWRccGdicm DjKi8rrCkvHLQ3HEioJ4ki nO3jOaZ0YVtaB8ucnZ5iYZ j1QMvajIM8HKZymC9mKT8p mcayj1mrZIJ5RExlIDFgkx B2ygWcYXWwlVKzF0InnH97 YjJisVLrA8XrgZ2eVAjkNL Aswrm2EkCuJq7neUGiwRR5 MFxzYmtwYWdlXHBnbmNvbn RccGduZGVjXHBsYWluXHBs GHxmCJSjFRBhPzIqi0BjIZ Gom8smZvKfd2rdiVu2XChv bFxwbGFpblxmMFxmczIwXH EkWLqdCKLbITCnKoBpM9Vg T3ljUT1hVAVikyJsILWyyC ViDQOwlqHpy6UzZXvhuyLt SSYkcMbtCFZ5xGVxQDLbIK VsHTArEL37FTGuLYjyCAKu YYYnItAqxZcvDVmrDAi9Tl xwbGFpblxmMVxmczIwIHMg bmFtZSwgVUggbnVtYmVyIC SbiG3eAFBeLHAamLO1gKet fNCcbkaqMIttkxBeGIM4Ay SmGSewWFJwpYzyvV3sKpUw KeOaSJClTB6gOFZxscUlz5 SkUH7xNQNhsSXqNSLhonew cAJbJXu0kBDcYMHsYqNmiP wfl4ScLVWwOCjqCE03ihEb MT48WKmuHU24QXvkMB6iIF EnYWjfDHGbC6UfE7Y3QPru NFZxTTGzlNZqsJ4ydhBghd AzvBz3TJXjIQV4wFHueAnl OKBsKpxqePN1TNOmLxWxuw NqXK87gKRqpBoda3EjrFh4 gKDkBRvdRUQvbH6ioB4vEJ EuXHBhclxwYXJkXHBsYWlu TZYoUWFbOhLojYkzhB4kLf HcTzHfIJLDwQqpBMDHH9la aGFuZXksIFBBXHBsYWluXG YxXGZzMjBcbGFuZzEwMzNc aGljaFxmMVxkYmNoXGYxXG fzQ9ttLaTeO2ZwSKSkVjYv n5ZaYGNdaTIyLKVnVSneDM YyXGZzMTZcbGFuZzEwMzNc aGljaFxmMlxkYmNoXGYyXG wmT9pyUfKgZ3OwYEPuTZLb cGFyXHBhclxxbFxwbGFpbl xmMFxmczIwXHBsYWluXGYx XGZzMjBccGFyfQ== Embedded Images (test code = 6178376483) [facility] [id number] 15:01:00* Test Item Value Reference Range Interpretation Comme nts CRP (test code = 6436089806) 1.1 mg/dL <0.8 H Lab Interpretation (test cod e = 37996-8) [facility]normal [facility] (CA 19-9)2020-03-06 12:43:00 * Test Item Value Reference Range Interpretation Comme nts CA 19-9 (test code = 4872352521) 7.7 U/mL 0-35 THEODORA (test code = THEODORA) Biotin has been reported to cause a negative bias, interpret results relative to patient's use of biotin. Lab Interpretation (test code = 60296-4) [facility]leSEDIMENT[facility] [id number] 11:52:00* Test Item Value Reference Range Interpretation Comme nts ESR (test code = 6005645790) See_Comment [Automated messa ge] The system which generated this result transmitted reference range: 0 - 20 mm/HR. The reference range was not used to interpret this result as normal/abnormal. Lab Interpretation (test code = 34413-4) [facility] [id number] 21:16:00* Test Item Value Reference Range Interpretation Comme nts CEA (test code = 5714685345) 1.6 ng/mL 0-10 THEODORA (test code = THEODORA) CEA Ranges: Non-Smokers ?0-5.0 ng/mLSmokers ? ? ?0-10.0 ng/mL Lab Interpretation (test code = 58590-3) [facility]OL[facility] PAN[facility] (90906)2020-03-05 11:36:00* Test Item Value Reference Range Interpretation Comme nts NA (test code = 3330231436) 140 mmol/L 135-145 K (test code = 3426695167) 3.7 mmol/L 3.5-5 CL (test code = 7042791571) 109 mmol/L 98-108 H CO2 TOTAL (test code = 2454798057) 25 mmol/L 23-31 AGAP (test code = 5580606128) 2-16 BUN (test code = 7919636953) 4 mg/dL 7-23 L GLUCOSE (test code = 3746620101) 79 mg/dL 70-110 CREATININE (test code = 8126389603) 0.39 mg/dL 0.5-1.04 L TOTAL BILI (test code = 0161518935) 0.5 mg/dL 0.1-1.1 CALCIUM (test code = 9923410414) 9.3 mg/dL 8.6-10.6 T PROTEIN (test code = 2219688492) 5.9 g/dL 6.3-8.2 L ALBUMIN (test code = 8733107916) 3.1 g/dL 3.5-5 L ALK PHOS (test code = 5846869017) 50 U/L 34-122 ALTv (test code = 1742-6) 15 U/L 5-35 AST(SGOT) (test code = 4956684942) 27 U/L 13-40 eGFR Calculation (Non-) (test code = 0177905102) mL/min/1.73m2 eGFR Calculation () (test code = 9516288600) mL/min/1.73m2 THEODORA (test code = THEODORA) Association of [...] or abnormalities in imaging tests). Lab Interpretation (test code = 46647-9) [facility] 11:36:00* Test Item Value Reference Range Interpretation Comme nts MAGNESIUM (test code = 1821328528) 2.0 mg/dL 1.7-2.4 Lab Interpretation (test cod e = 01355-6) [facility] 11:36:00* Test Item Value Reference Range Interpretation Comme nts PHOSPHORUS (test code = 0489146279) 3.3 mg/dL 2.5-5 Lab Interpretation (test cod e = 66715-7) Normal [facility]lePROTHROMBIN TIME / [id number] 10:59:00* Test Item Value Reference Range Interpretation Comme nts PROTIME PATIENT (test code = 5964-2) See_Comment [Automated messa ge] The system which generated this result transmitted reference range: 12.0 - 14.7 Seconds. The reference range was not used to interpret this result as normal/abnormal. INR (test code = 6301-6) Normal INR <1.1; Warfarin Therapeutic range 2.0 to 3.0 or 2.5 to 3.5, depending upon the indications. Lab Interpretation (test code = 17639-5) Normal [facility] WITH [id number] 10:55:00* Test Item Value Reference Range Interpretation Comme [facility] WBC (test code = 6690-2) See_Comment [Automated messa ge] The system which generated this result transmitted reference range: 4.30 - 11.10 10*3/?L. The reference range was not used to interpret this result as normal/abnormal. RBC (test code = 789-8) See_Comment L [Automated messa ge] The system which generated this result transmitted reference range: 3.93 - 5.25 10*6/?L. The reference range was not used to interpret this result as normal/abnormal. HGB (test code = 718-7) 10.8 g/dL 11.6-15 L HCT (test code = 4544-3) 33.3 % 35.7-45.2 L MCV (test code = 787-2) 94.3 fL 80.6-95.5 MCH (test code = 785-6) 30.6 pg 25.9-32.8 MCHC (test code = 786-4) 32.4 g/dL 31.6-35.1 RDW-SD (test code = 84999-0) 48.1 fL 39-49.9 RDW-CV (test code = 788-0) 13.9 % 12-15.5 PLT (test code = 777-3) See_Comment [Automated messa ge] The system which generated this result transmitted reference range: 166 - 358 10*3/?L. The reference range was not used to interpret this result as normal/abnormal. MPV (test code = 88233-0) 11.1 fL 9.5-12.9 NRBC/100 WBC (test code = 5551765361) See_Comment [Automated me ssage] The system which generated this result transmitted reference range: 0.0 - 10.0 /100 WBCs. The reference range was not used to interpret this result as normal/abnormal. NRBC x10^3 (test code = 7301709986) <0.01 See_Comment [Automated messa ge] The system which generated this result transmitted reference range: 10*3/?L. The reference range was not used to interpret this result as normal/abnormal. GRAN MAT (NEUT) % (test code = 770-8) 59.6 % IMM GRAN % (test code = 8798697635) 0.40 % LYMPH % (test code = 736-9) 26.5 % MONO % (test code = 5905-5) 9.7 % EOS % (test code = 713-8) 3.0 % BASO % (test code = 706-2) 0.8 % GRAN MAT x10^3(ANC) (test code = 8256134618) 4.36 10*3/uL 1.88-7.09 IMM GRAN x10^3 (test code = 1038027871) 0.03 10*3/uL 0-0.06 LYMPH x10^3 (test code = 731-0) 1.94 10*3/uL 1.32-3.29 MONO x10^3 (test code = 742-7) 0.71 10*3/uL 0.33-0.92 EOS x10^3 (test code = 711-2) 0.22 10*3/uL 0.03-0.39 BASO x10^3 (test code = 704-7) 0.06 10*3/uL 0.01-0.07 Lab Interpretation (test code = 00375-0) Abnormal [facility] PELVIS COMPLETE WITH [id number] 02:21:23Right ovarian cyst measuring up to 2.4 cm. No suspicious feature. Prominent vessels seen within theendometrium without discernible polypoidlesion or other endometrial abnormality. Correlate with patient's symptoms. Preliminary Report Dictated by Resident: Domenic Landrum MD., have reviewed this study and agree with theabove report.EXAM: PELVIC ULTRASOUND, TRANSABDOMINAL AND TRANSVAGINAL HISTORY: right ovarian growth, concern for malignancy, concerning CTabdomen. On CT abdomen and pelvis yesterday a right dominant follicle wasseen. No additional abnormality. Ab0, LMP 02/19/2020. TECHNIQUE: Real-time grayscale and color Doppler images through the pelvisvia transvaginal and transabdominal approach. COMPARISON: 03/03/2020 FINDINGS: UTERUS: The [...] the left ovary measures up to 0.9 cm. No adnexal mass. No ?free fluid. [facility], Radiant Results Inft User - 03/04/2020 9:22 PM CDTEXAM: PELVIC ULTRASOUND, TRANSABDOMINAL AND TRANSVAGINALHISTORY: right ovarian growth, concern for malignancy, concerning CTabdomen. On CT abdomen and pelvis yesterday a right dominant follicle wasseen. No additional abnormality. Ab0, LMP 02/19/2020.TECHNIQUE: Real-time etienne bailee and color Doppler images through the pelvisvia [...] an ovarian cyst. The left ovary measures 2.9x 1.3 x 2.2 cm (4.3 mL).Dominant follicle within the left ovary measures up to 0.9 cm.No adnexal mas s.No free fluid.IMPRESSIONRight ovarian cyst measuring up to 2.4 cm. No suspicious feature.Prominent vessels seen within the endometrium without discernible polypoidlesion or other endometrial abnormality. Correlate with patient's symptoms.Preliminary Report Dictated by Resident: Jasen Schuler, Domenic Maya MD., have reviewed this study and agree with theabove report. [facility] 21:17:00* Test Item Value Reference Range Interpretation Comme nts MAGNESIUM (test code = 4204906133) 1.5 mg/dL 1.7-2.4 L Lab Interpretation (test cod e = 70172-5) [facility]normal [facility]2020-04-22 21:17:00* Test Item Value Reference Range Interpretation Comme nts PHOSPHORUS (test code = 6457784988) 3.0 mg/dL 2.5-5 Slight hemolysis Lab Interpretation (test code = 06137-2) Normal [facility]le[facility] METABOLIC PANEL (NA, K, CL, CO2, GLUCOSE, BUN, CREATININE, CA)2020-03-04 11:17:00* Test Item Value Reference Range Interpretation Comme nts NA (test code = 4705243893) 139 mmol/L 135-145 K (test code = 4573533275) 3.5 mmol/L 3.5-5 CL (test code = 4646481619) 110 mmol/L 98-108 H CO2 TOTAL (test code = 3243223168) 24 mmol/L 23-31 AGAP (test code = 3662496908) 2-16 BUN (test code = 8821317331) 4 mg/dL 7-23 L GLUCOSE (test code = 5548735455) 100 mg/dL 70-110 CREATININE (test code = 2922126488) 0.42 mg/dL 0.5-1.04 L CALCIUM (test code = 7767111103) 9.7 mg/dL 8.6-10.6 eGFR Calculation (Non-) (test code = 8809440589) mL/min/1.73m2 eGFR Calculation () (test code = 0594104531) mL/min/1.73m2 THEODORA (test code = THEODORA) Association of [...] or abnormalities in imaging tests). Lab Interpretation (test code = 30714-7) Abnormal [facility] WITH [id number] 11:00:00* Test Item Value Reference Range Interpretation Comme nts WBC (test code = 6690-2) See_Comment H [Automated [employer]] The system which generated this result transmitted reference range: 4.30 - 11.10 10*3/?L. The reference range was not used to interpret this result as normal/abnormal. RBC (test code = 789-8) See_Comment L [Automated [employer] Social] The system which generated this result transmitted reference range: 3.93 - 5.25 10*6/?L. The reference range was not used to interpret this result as normal/abnormal. HGB (test code = 718-7) 11.5 g/dL 11.6-15 L HCT (test code = 4544-3) 34.7 % 35.7-45.2 L MCV (test code = 787-2) 94.3 fL 80.6-95.5 MCH (test code = 785-6) 31.3 pg 25.9-32.8 MCHC (test code = 786-4) 33.1 g/dL 31.6-35.1 RDW-SD (test code = 90402-6) 49.3 fL 39-49.9 RDW-CV (test code = 788-0) 14.2 % 12-15.5 PLT (test code = 777-3) See_Comment [Automated E-Diversify Yourselfa ge] The system which generated this result transmitted reference range: 166 - 358 10*3/?L. The reference range was not used to interpret this result as normal/abnormal. MPV (test code = 46292-5) 11.9 fL 9.5-12.9 NRBC/100 WBC (test code = 9326908483) See_Comment [Automated Lexim ssage] The system which generated this result transmitted reference range: 0.0 - 10.0 /100 WBCs. The reference range was not used to interpret this result as normal/abnormal. NRBC x10^3 (test code = 2425046199) <0.01 See_Comment [Automated E-Diversify Yourselfa ge] The system which generated this result transmitted reference range: 10*3/?L. The reference range was not used to interpret this result as normal/abnormal. GRAN MAT (NEUT) % (test code = 770-8) 74.9 % IMM GRAN % (test code = 1860781443) 0.60 % LYMPH % (test code = 736-9) 15.4 % MONO % (test code = 5905-5) 8.5 % EOS % (test code = 713-8) 0.3 % BASO % (test code = 706-2) 0.3 % GRAN MAT x10^3(ANC) (test code = 7340897163) 8.44 10*3/uL 1.88-7.09 H IMM GRAN x10^3 (test code = 3808688618) 0.07 10*3/uL 0-0.06 H LYMPH x10^3 (test code = 731-0) 1.74 10*3/uL 1.32-3.29 MONO x10^3 (test code = 742-7) 0.96 10*3/uL 0.33-0.92 H EOS x10^3 (test code = 711-2) 0.03 10*3/uL 0.03-0.39 BASO x10^3 (test code = 704-7) 0.03 10*3/uL 0.01-0.07 Lab Interpretation (test code = 77524-8) [facility]normal [facility] PEL[facility] W [id number] 04:10:34Focal circumferential thickening of the stomach antrum/pylorus concerningfor malignancy. Direct visualization with endoscopy is recommended. Marked circumferential segmental rectosigmoid thickening and luminalnarrowing. Underlying mass is not completely excluded. Colitis is anotherpossibility. Howev er, there is no significant hyperemia to this region.Recommend GI consult and endoscopy. Scattered nodular soft tissue densities throughout the peritoneal cavityare concerning for peritoneal carcinomatosis. Recommend tissue sampling. Rectosigmoid intramural collection measuring 1.0 cm with mild bria pheralenhancement. Alternatively, this lesion may represent intraluminal pocketof fluid. Assessmentis difficult due to prominent wall thickening. Indeterminate [...] the liver is seen.Mild fatty infiltration at thefalciform ligament. Otherwise, no focalhepatic lesion identified. GALLBLADDER [...] for example: -Left paracolic gutter measuring 1.5 x 1.3 cm (2:90).-Left paracolic gutter measuring 2.5 x 0.8 cm (2:78).-Adjacent to the pancreatic tail, [...] of the small bowel. Normal appendix (2:97). Prominent circumferential segmental thickening of the distal sigmoid [...] cm. The left ovary is unremarkable. Trace pel vicfree fluid is present. VESSELS: Patent abdominal vasculature. No significant atheroscleroticcalcifications in the abdominal aorta. BONES AND SOFT TISSUES: No suspicious lytic or sclerotic bony lesions.Hardware fixation of the proximal left femur is partially visualized. [facility], Radiant Results Inft User - 03/03/2020 11:11 PM CDTEXAM: CT ABDOMEN AND PELVIS WITH CONTRASTHISTORY: 44-year-old female "abdominal pain, acute, generalized, emesis,history of pancreatitis".COMPARISON: None.DOSE: 253mGycmTECHNIQUE AND FINDINGS: Contiguous axial imaging from the [...] for example:-Left paracolic gutter measuring 1.5 x 1.3cm (2:90).-Left paracolic gutter measuring 2.5 x 0.8 cm (2:78).-Adjacent to the pancreatic tail, measuring 4.4 x 2.9 cm (2:50).-Anterior mesentery measuring 2.1 x 4.4 cm (2:64)-Right paracolic guttermeasuring 1.9 x 3.6 cm (2:81).LYMPH NODES: No [...] unremarkable. A dominant follicle is noted in ther ight ovary measuring 2.3 cm. The left ovary is unremarkable. Trace pelvicfree fluid is present.VESSELS: Patent abdominal vasculature. No significant atheroscleroticcalcifications in the abdominal aorta.BONES AND SOFT TISSUES: No suspicious lytic or sclerotic bony lesions.Hardware fixation of the proximal left femur is partially visualized.IMPRESSIONFocal circumferential thickening of the stomach antrum/pylorus concerningfor malignancy. Direct visualization with endoscopy is recommended.Marked circumferential segmental rectosigmoid thickening [...] right adrenal nodules. Furthernonemergent evaluation with CT adrenalmass protocol is recommended.Hepatosteatosis.Preliminary Report Dictated by Resident: Jasen Schuler, Domenic Maya MD., have reviewed this study and agree with theabove report.[facility]leCB WITH DIFFERENTIAL 2020-03-03 10:27:00* Test Item Value Reference Range Interpretation Comme nts WBC (test code = 6690-2) See_Comment H [Automated message] The system which generated this result transmitted reference range: 4.30 - 11.10 10*3/?L. The reference range was not used to interpret this result as normal/abnormal. RBC (test code = 789-8) See_Comment L [Automated message] The system which generated this result transmitted reference range: 3.93 - 5.25 10*6/?L. The reference range was not used to interpret this result as normal/abnormal. HGB (test code = 718-7) 12.1 g/dL 11.6-15 HCT (test code = 4544-3) 36.0 % 35.7-45.2 MCV (test code = 787-2) 92.3 fL 80.6-95.5 MCH (test code = 785-6) 31.0 pg 25.9-32.8 MCHC (test code = 786-4) 33.6 g/dL 31.6-35.1 RDW-SD (test code = 22480-1) 48.2 fL 39-49.9 RDW-CV (test code = 788-0) 14.3 % 12-15.5 PLT (test code = 777-3) See_Comment [Automated message] The system which generated this result transmitted reference range: 166 - 358 10*3/?L. The reference range was not used to interpret this result as normal/abnormal. MPV (test code = 28628-3) 11.9 fL 9.5-12.9 NRBC/100 WBC (test code = 5707545455) See_Comment [Automated message] The system which generated this result transmitted reference range: 0.0 - 10.0 /100 WBCs. The reference range was not used to interpret this result as normal/abnormal. NRBC x10^3 (test code = 2874717193) <0.01 See_Comment [Automated message] The system which generated this result transmitted reference range: 10*3/?L. The reference range was not used to interpret this result as normal/abnormal. GRAN MAT (NEUT) % (test code = 770-8) 88.6 % IMM GRAN % (test code = 2315009836) 0.80 % LYMPH % (test code = 736-9) 5.1 % MONO % (test code = 5905-5) 5.3 % EOS % (test code = 713-8) 0.0 % BASO % (test code = 706-2) 0.2 % GRAN MAT x10^3(ANC) (test code = 3393056803) 17.00 10*3/uL 1.88-7.09 H IMM GRAN x10^3 (test code = 4483493170) 0.16 10*3/uL 0-0.06 H LYMPH x10^3 (test code = 731-0) 0.97 10*3/uL 1.32-3.29 L MONO x10^3 (test code = 742-7) 1.02 10*3/uL 0.33-0.92 H EOS x10^3 (test code = 711-2) <0.03 0.03-0.39 L BASO x10^3 (test code = 704-7) 0.03 10*3/uL 0.01-0.07 Lab Interpretation (test code = 18981-1) [facility]normal [facility] (NA, K, CL, CO2, GLUCOSE, BUN, CREATININE, CA)2020-03-03 09:50:00* Test Item Value Reference Range Interpretation Comme nts NA (test code = 0908775536) 134 mmol/L 135-145 L K (test code = 4076196935) 3.9 mmol/L 3.5-5 CL (test code = 1443115411) 103 mmol/L 98-108 CO2 TOTAL (test code = 9530045568) 22 mmol/L 23-31 L AGAP (test code = 6774028982) 2-16 BUN (test code = 6945006365) 5 mg/dL 7-23 L GLUCOSE (test code = 9572917862) 139 mg/dL 70-110 H CREATININE (test code = 5937532436) 0.37 mg/dL 0.5-1.04 L CALCIUM (test code = 7221514740) 9.5 mg/dL 8.6-10.6 eGFR Calculation (Non-) (test code = 8011802432) mL/min/1.73m2 eGFR Calculation () (test code = 7098799518) mL/min/1.73m2 THEODORA (test code = THEODORA) Association of [...] or abnormalities in imaging tests). Lab Interpretation (test code = 30113-3) [facility]normal [facility]leXR ABDOMEN ACUTE [id number] 17:54:41No acute intrathoracic abnormality. The bowel gas pattern is nonobstructive. Air- fluid levels are visualizedwithin the gastric body and small bowel without dilatation or evidence offree air on erect images. Preliminary Report Dictated by Resident: Zane Wu MD., have reviewed this study and agree with the abovereport.PROCEDURE: XR ABDOMEN ACUTE SERIES CLINICAL INDICATION:vomiting COMPARISON: None FINDINGS: The lungs are well-expanded and clear without focal consolidation, pleuraleffusion, or pneumothorax. No subdiaphragmatic free air. The cardiac silhouette is normalin size. No subdiaphragmatic air is seen on erect images. Air-fluid levels arevisualized within thegastric body and loops of small bowel without dilatedbowel loops. No radiopaque stones or abnormal calcifications areidentified. No acute osseous abnormality. Andres and screw fixation securing a leftfemoral fracture is partially visualized superior liver. [facility], Radiant Results Inft User - 03/02/2020 12:55 [...] No radiopaque stones or abnormal calcifications areidentified.No acuteosseous abnormality. Andres and screw fixation securing a leftfemoral fracture is partially visualizedsuperior liver.IMPRESSIONNo acute intrathoracic abnormality.The bowel gas pattern is nonobstructive. Air-fluid levels are visualizedwithin the gastric body and small bowel without dilatation or evidence offree air on erect images.Preliminary Report Dictated by Resident: Ganga Locke, Zane Apple MD., have reviewed this study and agree with the abovereport.[facility] AzleUrinalysis2020-04-20 16:47:00 * Test Item Value Reference Range Interpretation Comme nts APPEARANCE (test code = 3742022074) Clear Clear COLOR (test code = 8174428352) Straw Yellow A PH (test code = 6586221375) 4.8-8.0 SP GRAVITY (test code = 4661729187) 1.003-1.030 GLU U QUAL (test code = 4156062610) 50 mg/dL Normal A BLOOD (test code = 1272784208) Negative Negative KETONES (test code = 0667631814) 80 mg/dL Negative A PROTEIN (test code = 2887-8) Negative Negative UROBILIN (test code = 1776518257) Normal Normal BILIRUBIN (test code = 4531894967) Negative Negative NITRITE (test code = 2338254236) Negative Negative LEUK BIRDIE (test code = 5863032873) Negative Negative RBC/HPF (test code = 1091702992) See_Comment [Automated E-Diversify Yourselfa ge] The system which generated this result transmitted reference range: 0 - 3 HPF. The reference range was not used to interpret this result as normal/abnormal. WBC/HPF (test code = 8488809641) See_Comment [Automated E-Diversify Yourselfa ge] The system which generated this result transmitted reference range: 0 - 5 HPF. The reference range was not used to interpret this result as normal/abnormal. BACTERIA (test code = 0565672094) Negative Negative MUCOUS (test code = 5985385974) Slight Negative LPF A SQ EPITH (test code = 0596679556) HPF Lab Interpretation (test code = 31896-5) Abnormal [facility] / [facility] - DRUG SCREEN [id number] 16:45:00* Test Item Value Reference Range Interpretation Comme nts BENZO U (test code = 4119470536) Negative Negative KOTA U (test code = 2668285295) Negative Negative AMPHET (test code = 2156099620) Negative Negative THC (test code = 2095622270) Presumptive Positive Negative A Confirmation of Presumptive Positive THC result requires physician order. METHADONE (test code = 3990158047) Negative Negative Meth U (test code = 7850861335) Negative Negative OPIATES (test code = 4325748572) Presumptive Positive Negative A Cocaine Metabolite (test code = 3612106428) Negative Negative PROPOXY (test code = 2176441687) Negative Negative Tric U (test code = 3688058052) Negative Negative PCP (test code = 1995383563) Negative Negative OXYCOD (test code = 6504843952) Negative Negative THEODORA (test code = THEODORA) Urine Drug Cutoff Ranges Benzodiazepines: ? ? 150 ng/mLBarbiturates : [...] employment testing, legal testing). Lab Interpretation (test code = 17547-3) Abnormal [facility]lePREGNANCY TEST, [id number] 16:08:00* Test Item Value Reference Range Interpretation Comme nts PREG SERUM (test code = 9348788612) Negative THEODORA (test code = THEODORA) Less than 10 IU/L. ?If low titer or ectopic is suspected, resubmit specimen in 48-72 hours. [facility]leLIPASE2020-04-20 15:45:00* Test Item Value Reference Range Interpretation Comme nts LIPASE (test code = 0096172631) 67 U/L 0-220 Lab Interpretation (test cod e = 12319-2) Normal [facility]leETHANOL2020-04-20 15:38:00* Test Item Value Reference Range Interpretation Comme nts ALCOHOL (test code = 6368260178) <10 mg/dL THEODORA (test code = THEODORA) <10 [id number] Toxic>100 Depression of DINKEY ENGINEER>400 Fatalities Reported [facility] AzleTroponin [id number] 15:01:00* Test Item Value Reference Range Interpretation Comme nts TROPONIN I (test code = 8438733581) <0.012 See_Comment [Automated message] The system which generated this result transmitted reference range: <=0.034 ng/mL. The reference range was not used to interpret this result as normal/abnormal. THEODORA (test code = THEODORA) Equal or [...] use of biotin. ? Lab Interpretation (test code = 48451-1) Normal [facility] AzleN-TERMINAL [id number] 14:58:00* Test Item Value Reference Range Interpretation Comme nts NT-proBNP (test code = 2244472886) 2310 pg/mL See_Comment H [Automated message] The system which generated this result transmitted reference range: <=125. The reference range was not used to interpret this result as normal/abnormal. THEODORA (test code = THEODORA) Biotin has been reported to cause a negative bias, interpret results relative to patient's use of biotin. Lab Interpretation (test code = 11840-7) Abnormal [facility] AzleCORONAVIRUS COVID-19 [id number] 14:58:00* Test Item Value Reference Range Interpretation Comme [facility] SARS-CoV-2 (test code = 86447-3) Not Detected Not Detected THEODORA (test code = THEODORA) ID NOW COVID-19 As say is an isothermal nucleic acid amplification test intended for the qualitative detection of nucleic acid from SARS-CoV-2 viral RNA in nasopharyngeal (GEOSCIENTIST) specimens. It is used under Emergency Use [...] patient testing if clinically indicated. Lab Interpretation (test code = 80798-7) Normal [facility] AzleProthrombin Time (PT) / [id number] 14:52:00 * Test Item Value Reference Range Interpretation Comme [facility] PROTIME PATIENT (test code = 5964-2) See_Comment [Automated messa ge] The system which generated this result transmitted reference range: 12.0 - 14.7 Seconds. The reference range was not used to interpret this result as normal/abnormal. INR (test code = 6301-6) Normal INR <1.1; Warfarin Therapeutic range 2.0 to 3.0 or 2.5 to 3.5, depending upon the indications. Lab Interpretation (test code = 64539-4) Normal [facility] AzleaPTT2020-04-20 14:51:00* Test Item Value Reference Range Interpretation Comme [facility] APTT Patient (test code = 3173-2) See_Comment [Automated message] The system which generated this result transmitted reference range: 23 - 38 Seconds. The reference range was not used to interpret this result as normal/abnormal. THEODORA (test code = THEODORA) The [facility] patient population mean normal value for aPTT is 30 seconds. Lab Interpretation (test code = 92854-2) Normal [facility] (NA, K, CL, CO2, GLUCOSE, BUN, CREATININE, CA)2020-03-02 14:49:00* Test Item Value Reference Range Interpretation Comme nts NA (test code = 9617962622) 139 mmol/L 135-145 K (test code = 4538627608) 3.8 mmol/L 3.5-5 CL (test code = 6847835099) 108 mmol/L 98-108 CO2 TOTAL (test code = 2211924414) 21 mmol/L 23-31 L AGAP (test code = 3892582362) 2-16 BUN (test code = 4573978628) 8 mg/dL 7-23 GLUCOSE (test code = 0415874435) 133 mg/dL 70-110 H CREATININE (test code = 1508524133) 0.55 mg/dL 0.5-1.04 CALCIUM (test code = 0284479045) 10.7 mg/dL 8.6-10.6 H eGFR Calculation (Non-) (test code = 7295829197) mL/min/1.73m2 eGFR Calculation () (test code = 7121734293) mL/min/1.73m2 THEODORA (test code = THEODORA) Association of [...] or abnormalities in imaging tests). Lab Interpretation (test code = 16153-0) Abnormal [facility] AzleHepatic Function Panel (ALB, T.PRO, BILI T, BU/BC, ALT, AST, ALK PHOS)2020-03-02 14:49:00* Test Item Value Reference Range Interpretation Comme nts TOTAL BILI (test code = 4435421091) 0.5 mg/dL 0.1-1.1 BILI UNCON (test code = 5621643747) 0.6 mg/dL 0.1-1.1 BILI CONJ (test code = 5878507320) 0.0 mg/dL 0-0.3 T PROTEIN (test code = 5451622897) 7.9 g/dL 6.3-8.2 ALBUMIN (test code = 0923358833) 4.6 g/dL 3.5-5 ALK PHOS (test code = 2949627211) 99 U/L 34-122 ALTv (test code = 1742-6) 17 U/L 5-35 AST(SGOT) (test code = 8948950154) 29 U/L 13-40 Lab Interpretation (test cod e = 11198-7) [facility] PGLQHNUNIIDJ5258-99-08 14:44:00* Test Item Value Reference Range Interpretation Comme nts WBC (test code = 6690-2) See_Comment [Automated E-Diversify Yourself[employer] Targeter App] The system which generated this result transmitted reference range: 4.30 - 11.10 10*3/?L. The reference range was not used to interpret this result as normal/abnormal. RBC (test code = 789-8) See_Comment [Automated E-Divers[employer] Yourself[employer] Targeter App] The system which generated this result transmitted reference range: 3.93 - 5.25 10*6/?L. The reference range was not used to interpret this result as normal/abnormal. HGB (test code = 718-7) 14.1 g/dL 11.6-15 HCT (test code = 4544-3) 43.7 % 35.7-45.2 MCV (test code = 787-2) 93.8 fL 80.6-95.5 MCH (test code = 785-6) 30.3 pg 25.9-32.8 MCHC (test code = 786-4) 32.3 g/dL 31.6-35.1 RDW-SD (test code = 60229-8) 48.9 fL 39-49.9 RDW-CV (test code = 788-0) 14.1 % 12-15.5 PLT (test code = 777-3) See_Comment [Automated messa ge] The system which generated this result transmitted reference range: 166 - 358 10*3/?L. The reference range was not used to interpret this result as normal/abnormal. MPV (test code = 22407-7) 10.8 fL 9.5-12.9 NRBC/100 WBC (test code = 6914924739) See_Comment [Automated Lexim ssage] The system which generated this result transmitted reference range: 0.0 - 10.0 /100 WBCs. The reference range was not used to interpret this result as normal/abnormal. NRBC x10^3 (test code = 3068791293) <0.01 See_Comment [Automated messa ge] The system which generated this result transmitted reference range: 10*3/?L. The reference range was not used to interpret this result as normal/abnormal. GRAN MAT (NEUT) % (test code = 770-8) 82.3 % IMM GRAN % (test code = 7868264841) 0.60 % LYMPH % (test code = 736-9) 11.1 % MONO % (test code = 5905-5) 4.9 % EOS % (test code = 713-8) 0.7 % BASO % (test code = 706-2) 0.4 % GRAN MAT x10^3(ANC) (test code = 7902167054) 8.66 10*3/uL 1.88-7.09 H IMM GRAN x10^3 (test code = 6518553517) 0.06 10*3/uL 0-0.06 LYMPH x10^3 (test code = 731-0) 1.17 10*3/uL 1.32-3.29 L MONO x10^3 (test code = 742-7) 0.52 10*3/uL 0.33-0.92 EOS x10^3 (test code = 711-2) 0.07 10*3/uL 0.03-0.39 BASO x10^3 (test code = 704-7) 0.04 10*3/uL 0.01-0.07 Lab Interpretation (test code = 51207-7) Abnormal [facility] WITH NVFNQMNIVESF0841-41-08 17:56:00* Test Item Value Reference Range Interpretation Comme nts WBC (test code = 6690-2) See_Comment [Automated messa ge] The system which generated this result transmitted reference range: 4.30 - 11.10 10*3/?L. The reference range was not used to interpret this result as normal/abnormal. RBC (test code = 789-8) See_Comment L [Automated messa ge] The system which generated this result transmitted reference range: 3.93 - 5.25 10*6/?L. The reference range was not used to interpret this result as normal/abnormal. HGB (test code = 718-7) 11.3 g/dL 11.6-15 L HCT (test code = 4544-3) 34.9 % 35.7-45.2 L MCV (test code = 787-2) 98.0 fL 80.6-95.5 H MCH (test code = 785-6) 31.7 pg 25.9-32.8 MCHC (test code = 786-4) 32.4 g/dL 31.6-35.1 RDW-SD (test code = 23240-4) 63.9 fL 39-49.9 H RDW-CV (test code = 788-0) 17.8 % 12-15.5 H PLT (test code = 777-3) See_Comment [Automated E-Diversify Yourselfa ge] The system which generated this result transmitted reference range: 166 - 358 10*3/?L. The reference range was not used to interpret this result as normal/abnormal. MPV (test code = 64088-8) 10.6 fL 9.5-12.9 NRBC/100 WBC (test code = 4690530725) See_Comment [Automated me ssage] The system which generated this result transmitted reference range: 0.0 - 10.0 /100 WBCs. The reference range was not used to interpret this result as normal/abnormal. NRBC x10^3 (test code = 1205628660) <0.01 See_Comment [Automated messa ge] The system which generated this result transmitted reference range: 10*3/?L. The reference range was not used to interpret this result as normal/abnormal. GRAN MAT (NEUT) % (test code = 770-8) 76.2 % IMM GRAN % (test code = 5765151061) 0.20 % LYMPH % (test code = 736-9) 13.7 % MONO % (test code = 5905-5) 5.8 % EOS % (test code = 713-8) 3.1 % BASO % (test code = 706-2) 1.0 % GRAN MAT x10^3(ANC) (test code = 1524157038) 7.17 10*3/uL 1.88-7.09 H IMM GRAN x10^3 (test code = 8840461082) <0.03 0-0.06 LYMPH x10^3 (test code = 731-0) 1.29 10*3/uL 1.32-3.29 L MONO x10^3 (test code = 742-7) 0.55 10*3/uL 0.33-0.92 EOS x10^3 (test code = 711-2) 0.29 10*3/uL 0.03-0.39 BASO x10^3 (test code = 704-7) 0.09 10*3/uL 0.01-0.07 H Lab Interpretation (test code = 59224-9) [facility]normal [facility]A1C)2020-01-01 17:52:00* Test Item Value Reference Range Interpretation Comme nts HGB A1C (test code = 4548-4) 5.0 % 4-6 THEODORA (test code = THEODORA) %A1C (NGSP) Interpretation (ADA)4.8-5.6 ? ? Normal or (Non-Diabetic Range)5.7-6.4 ? ? Increased Risk (Pre-Diabetic)>6.5 ?Diabetes Indicated Lab Interpretation (test code = 45880-5) Normal [facility] Consult Notes Date/Time Note Provider Source 2024-01-21 15:31:05 0243-15-47P54:31:05A ssociated Order(s): CONSULT GENERAL SURGERY GENERAL SURGERY CONSULTATION NOTEReason for Consultation / Chief Complaint: Diverticulitis with abscessConsult Requested By: Dr. Gross of Present Illness: Melanie Salgado is a 48 year old female with a PMH significant for HTN, anxiety with depression, and chronic pancreatitis secondary to alcohol abuse presented to the ED this morning with a c/o abdominal pain. She reports a 4 week history of left sided abdominal pain. The pain started initially as an intermittent pain which progressed over the past 1.5 weeks to a constant pain. The pain radiated around her left side to her back and to her upper abdomen. The pain was initially associated with nausea. Over the past 2 days she developed decreased appetite and vomiting. She typically as chronic loose stools, up to 3 times per day, however her stools have changed to small volume and infrequent. She denies dark or bloody BM's. She denies fever. Her last colonoscopy was in 02/2020, she was found to have pancolonic diverticulosis and a 1.5 cm tubular adenoma of the sigmoid colon which was removed by hot snare. Work up in the ED demonstrated a WBC of 10 and sigmoid diverticulitis with small abscess. Since her admission she was started on Zosyn. She is NPO and still reports some LLQ pain. She was started on amoxicillin last week for a tooth abscess by her dentist and is scheduled to undergo extraction this week. She is currently smoking and occasionally drinks alcohol.Past Medical History:Past Medical History:Diagnosis DateAlcoholismAnxietyDepressionHTN (hypertension)PancreatitisPast Surgical History:Past Surgical History:Procedure Laterality DateCOLONOSCOPY N/A 03/05/2020Surgeon: Nohemi Magallon MD; Location: [facility] OR LocationESOPHAGOGASTRODUODENOSCOPY Upper 03/04/2020Surgeon: Nohemi Magallon MD; Location: [facility] OR LocationPR ANESTHESIA FACIAL BONES OR SKULL NOSREVISE TOTAL HIP REPLACEMENTAllergies:AllergiesAllergen ReactionsClindamycin AnaphylaxisRocephin [Ceftriaxone Sodium] AnaphylaxisMedications:Current Discharge Medication ListSTOP taking these medicationsamoxicillin 500 mg capsule Comments:Reason for Stopping:aspirin 81 mg chewable tablet Comments:Reason for Stopping:busPIRone 10 mg tablet Comments:Reason for Stopping:ketorolac 10 mg tablet Comments:Reason for Stopping:metoprolol tartrate 50 mg tablet Comments:Reason for Stopping:Omeprazole 20 mg tablet Comments:Reason for Stopping:traZODone 50 mg tablet Comments:Reason for Stopping:busPIRone 10 mg tablet Comments:Reason for Stopping:diazePAM 5 mg tablet Comments:Reason for Stopping:FLUoxetine 40 mg capsule Comments:Reason for Stopping:ondansetron 4 mg tablet Comments:Reason for Stopping:albuterol 90 mcg/actuation inhaler Comments:Reason for Stopping:PANTOPRAZOLE 40 mg EC tablet Comments:Reason for Stopping:amLODIPine 10 mg tablet Comments:Reason for Stopping:metoprolol succinate XL 25 mg 24 hr tablet Comments:Reason for Stopping:Current Facility-Administered MedicationsMedication Dose Route Frequency Last Rate Last Adminbenzonatate (TESSALON PERLES) capsule 100 mg 100 mg Oral Q8HPRN 100 mg at 01/21/24 1147codeine-guaifenesin (ROBITUSSIN AC) 10-100 mg/5 mL oral solution 10 mL 10 mL Oral A0WUPJwpmtNOAM (2 mg/mL) injection 2 mg 2 mg Slow IV Push E0BHMAEfXw 0.9% (NS) IV infusion 1,000 mL 1,000 mL IV Infusion CONTINUOUS 100 mL/hr at 01/21/24 1148 1,000 mL at 01/21/24 1148acetaminophen (TYLENOL) tablet 650 mg 650 mg Oral U9WFHIzhGFGOIvqs (NORVASC) tablet 10 mg 10 mg Oral DAILY 10 mg at 01/21/24 0814busPIRone (BUSPAR) tablet 10 mg 10 mg Oral BID 10 mg at 01/21/24 0814diazePAM (VALIUM) tablet 5 mg 5 mg Oral TIDPRN 5 mg at 01/21/24 0814enoxaparin (LOVENOX) injection 40 mg 40 mg Subcutaneous DAILY 40 mg at 01/21/24 0814FLUoxetine (PROZAC) capsule 40 mg 40 mg Oral DAILY 40 mg at 01/21/24 0814HYDROcodone-acetaminophen (NORCO) 10-325 mg tablet 1 tablet 1 tablet Oral Q4HPRN 1 tablet at 01/21/24 1303metoprolol succinate XL (TOPROL XL) tablet 25 mg 25 mg Oral DAILY 25 mg at 01/21/24 0814ondansetron (ZOFRAN (PF)) injection 4 mg 4 mg Slow IV Push K2YKZBslnigggbicr (ZOFRAN) tablet 4 mg 4 mg Oral B6FYOVtmzkdolxequc (PROTONIX) EC tablet 40 mg 40 mg Oral QAM-0600 40 mg at 01/21/24 0528piperacillin-tazobactam (ZOSYN) 3.375 g in NaCl 0.9% (NS) 100 mL MINI-BAG 3.375 g IV Piggyback Q8H ABX 25 mL/hr at 01/21/24 1153 3.375 g at 01/21/24 1153Family History:Family HistoryAdopted: YesProblem Relation Age of OnsetDiabetes MotherCancer Paternal GrandmotherSocial History:Social HistorySocioeconomic HistoryMarital status: SingleNumber of children: 0Highest education level: Bachelor's degree (e.g., BA, AB, BS)Tobacco UseSmoking status: FormerPacks/day: 0.50Years: 20.00Additional pack years: 0.00Total pack years: 10.00Types: CigarettesSmokeless tobacco: NeverVaping UseVaping Use: Never usedSubstance and Sexual ActivityAlcohol use: Not CurrentlyComment: quit Nov 2019Drug use: YesTypes: MarijuanaSocial Determinants of HealthFinancial Resource Strain: Medium Risk (09/28/2020)Overall Financial Resource Strain (CARDIA)Difficulty of Paying Living Expenses: Somewhat hardFood Insecurity: Food Insecurity Present (09/28/2020)Hunger Vital SignWorried About Running Out of Food in the Last Year: Sometimes trueRan Out of Food in the Last Year: Sometimes trueTransportation Needs: Unmet Transportation Needs (09/28/2020)PRAPARE - TransportationLack of Transportation (Medical): YesLack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 increased pain that is not controlled by medicationsNo adverse reaction to meds given in ER noted upon dischargePIV d'cd, dressing to site, catheter in tact.Awake, alert oriented, resp reg unlabored, skin w/d, pt leaving amb with steady gait, in no apparent distress, [address]-9Oyxn[address] OvhqXT4693-02-40N37:50:31[facility] department NoteTXT1.2.840.604915.1.13.104.2.7.2.179530|2129 [id number] for patient sosz46635-5SdgoDHGWASLHVTCGavqbwjdw C-CDA narrative [id number] Noe RN[address] Ok[id number] XMNYUEHADW1718-84-89H04:50:311.2.840.713305.1.72 .3.15|1.2.840.979184.1.13.104.2.7.2.727879_21293 68677 Janette Noe RN [facility] 2024-05-05 14:53:50 9508-67-06N01:53:50Formatting of this no te might be different from the original.Gave report to BONY Noe 11943-3Zlcexdcyx department BxfzPR1970-21-35B16:54:00[facility] department NoteTXT1.2.840.638098.1.13.104.2.7.2.036710|2129 229455SWHtraqnnzi for patient hkgg22347-1YroxGMYMVOYUCRFIubuhbxbb C-CDA narrative [address] [id number] LQLKANTMBT4223-68-81N85:54:001.2.840.541072.1.72 .3.15|1.2.840.554617.1.13.104.2.7.2.727879_21293 84729 [facility] 2024-05-05 13:44:31 0217-17-81B90:44:31Formatting of this no te might be different from the original.During triage patient states she has HTN and take blood pressure medication. Patient states she has not been able to keep her blood pressure medications down for the past three days. [address]-5Oobzrjpbw department KrsdMT0146-69-61G95:45:31[facility] NoteTXT1.2.840.451008.1.13.104.2.7.2.044656|2129 [id number] for patient pjhf20883-1SggrDFSIZUYRCSNRstmthphj C-CDA narrative [id number] MADVPKIBNG2632-61-68O84:45:311.2.840.922080.1.72 .3.15|1.2.840.278040.1.13.104.2.7.2.727879_21293 22978 [facility] 2024-05-05 13:37:21 4202-63-34T33:37:21Formatting of this no te might be different from the original.Patient arrived by [facility] for abdominal pain and chest pain. Patient states she has chronic pancreatitis. 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 37320-4Zhggwarbx department Triage zrjhAP1811-35-38G37:38:10[facility] Triage noteTXT1.2.840.955906.1.13.104.2.7.2.269037|2129 [id number] for patient cbbl44085-0Koebregsp department NoteLNNARRATIVEFormatted C-CDA narrative [id number] S Cryer RN[address] Dd[id number] LYQTFLOJNY8029-76-06K57:38:101.2.840.717108.1.72 .3.15|1.2.840.686629.1.13.104.2.7.2.727879_21293 30013 Guru Dawkins RN [facility] 2024-05-05 13:35:00 3592-76-35O08:35:00Associated Order(s): EKG-12 Lead ROUTINE ONCEPre-Procedure Diagnose(s): Abdominal pain, unspecified abdominal locationPost-Procedure Diagnose(s): Abdominal pain, unspecified abdominal location [facility] Emergency Department NotePatient Name: Melanie Quevedo of : 1975 48 year old femaleTreatment Room: [facility]/TH2Nvrnavl Record Number: [id number] Care Physician: No primary care provider on file.Patient Escorted by: Self [9]Mode of Arrival: EMS - [place] [47]EMS Treatment Prior to ED Arrival:OPERATIONS SUPERVISOR 2ND SHIFT treatment: Analgesic;NonePTA treatment comments: Fentanyl and ZofranTravel and Exposure Screening:SymptomsDoes patient have any of these symptoms?: (not recorded)Exposure ScreeningHas patient had contact with someone with a communicable disease in the last month?: (not recorded)Diseases exposed to:: (not recorded)Is Patient ?: (not recorded)Exposure Date: (not recorded)Chief Complaint:Chief ComplaintPatient presents withAbdominal PainChest PainHistory of Present Illness:3 days of persistent nausea with vomiting. Multiple episodes. Concurrent watery diarrhea. All non-bloody. Non-focal abdominal pain, cramping, greatest in upper abdomen, wax/wane intensity, aggravated with emesis, radiates to sternal / esophageal region. Subjective fever. (+) chills. (+) myalgia. Poor PO intake last 3 days. No dysuria. Sense of decreased urine output. EMS administered zofran, fentanyl.Recent encounters:1. 01/20/24 to 01/23/24. ADC. Diverticulitis with abscess2. 11/03/23 to 11/05/23. ADC. Abdominal pain. Chronic pancreatitis.History provided by: PatientPast Medical History/Immunizations:Past Medical History:Diagnosis DateAlcoholismAnxietyDepressionHTN (hypertension)PancreatitisTetanus received in last 5 years: YesAllergies:AllergiesAllergen ReactionsClindamycin AnaphylaxisRocephin [Ceftriaxone Sodium] AnaphylaxisPast Social History:Tobacco UseFormer; 0.5 packs/day; Smoked an average of 0.5 packs/day for 20.0 years; Types: CigarettesSmokeless Tobacco: Never used smokeless tobacco.Vaping UseNever usedAlcohol UseNot Currently.Comments: quit Nov 2019Drug UseYes; Marijuana.Past Surgical History:Past Surgical History:Procedure Laterality DateCOLONOSCOPY N/A 03/05/2020Surgeon: Nohemi Magallon MD; [facility] Upper 03/04/2020Surgeon: Nohemi Magallon MD; [facility] ANESTHESIA FACIAL BONES OR SKULL NOSREVISE TOTAL HIP REPLACEMENTReview of Systems:Review of SystemsConstitutional: Positive for chills and fever (subjective).HENT: Negative.Eyes: Negative.Respiratory: Negative.Gastrointestinal: Positive for abdominal pain, diarrhea, nausea and vomiting. Negative for blood in stool.Genitourinary: Positive for decreased urine volume. Negative for dysuria and frequency.Musculoskeletal: Positive for myalgias.Neurological: Negative.Psychiatric/Behavioral: Negative.Physical Exam:ED Triage Vitals [05/05/24 1338]Weight 72.6 kg (160 lb)Actual or estimatedHeight 1.626 m (5' 4")BP (!) 194/113Pulse 72Resp 13Temp 36.7 ?C (98.1 ?F)Temp source OralSpO2 97 %Measured on Room airPhysical ExamVitals and nursing note reviewed.Constitutional:General: She is not in acute distress.Appearance: Normal appearance. She is not ill-appearing, toxic-appearing or diaphoretic.HENT:Head: Normocephalic and atraumatic.Right Ear: External ear normal.Left Ear: External ear normal.Nose: Nose normal.Mouth/Throat:Mouth: Mucous membranes are moist.Eyes:Extraocular Movements: Extraocular movements intact.Conjunctiva/sclera: Conjunctivae normal.Cardiovascular:Rate and Rhythm: Normal rate and regular rhythm.Pulmonary:Effort: Pulmonary effort is normal. No respiratory distress.Breath sounds: Normal breath sounds. No wheezing, rhonchi or rales.Abdominal:General: There is no distension.Palpations: Abdomen is soft.Tenderness: There is abdominal tenderness (non-focal ttp greatest in upper abdomen).Musculoskeletal:General: Normal range of motion.Skin:General: Skin is warm and dry.Neurological:General: No focal deficit present.Mental Status: She is alert.Psychiatric:Mood and Affect: Mood normal.Behavior: Behavior normal.Thought Content: Thought content normal.Judgment: Judgment normal.Radiology:CT ABDOMEN PELVIS W CONTRASTFinal ResultEXAM: CT ABDOMEN PELVIS W CONTRASTHISTORY: 48 years -old Female with Abdominal pain, acute, nonlocalizednon-focal abdominal pain greatest in upper abdomen; history ofdiverticulitis with abscess in 01/2024.ORDERING PHYSICIAN: JIMBO ROMEROTECHNIQUE:Contiguous volumetric CT images were obtained from the lower chest throughthe abdomen and pelvis with intravenous contrast. Images were displayedinaxial, coronal, and sagittal planes. All CT scans are performed usingdoseoptimization techniques as appropriate to the exam being performed. Thesetechniques include automatic exposure control and/or standardizedprotocolsutilizing dose matching according to exam type and patient size.COMPARISON: 01/20/2024FINDINGS:Statements: None.Thoracic: Included images of the lower chest demonstrate no abnormalities.Hepatobiliary: Hepatomegaly with hepatic steatosis. No focal hepaticlesion. The gallbladder is unremarkable. No biliary dilation.Pancreas: No abnormality identified in the pancreas.Spleen: No abnormality identified in the spleen.Adrenals: There is a 1.7 cm left adrenal nodule of indeterminant density.Genitourinary: No parenchymal abnormality identified in either kidney. Nohydronephrosis. The bladder is contracted limiting evaluation. The uterusis unremarkable. No adnexal mass.Gastrointestinal: No evidence of bowel obstruction. There is a longsegmentwall thickening in the transverse colon, descending colon, and sigmoidcolon. Mild diverticulosis. The appendix is normal.Vascular/Lymphatics: No enlarged lymph nodes by CT size criteria.Abdominalaorta is normal in caliber.MSK: No concerning bony lesion identified. ORIF hardware in the proximalleft femur.Other: No extraluminal air. No extraluminal fluid.IMPRESSION1. Long segment wall thickening in the colon concerning for colitis.2. Hepatomegaly with hepatic steatosis.3. Mild diverticulosis.4. Indeterminate 1.7 cm left adrenal nodule is unchanged. Again kcieuodofy29 month follow-up CT or MRI with adrenal protocol.RL: 4131AFC: [id number] of report Lab Results:Lab ResultsCBC WITH DIFF - AbnormalResult Value Ref RangeWBC 9.08 4.30 - 11.10 10*3/?LRBC 5.02 3.93 - 5.25 10*6/?LHGB 16.0 (*) 11.6 - 15.0 g/dLHCT 47.2 (*) 35.7 - 45.2 %MCV 94.0 80.6 - 95.5 fLMCH 31.9 25.9 - 32.8 pgMCHC 33.9 31.6 - 35.1 g/dLRDW-SD 45.5 39.0 - 49.9 fLRDW-CV 13.2 12.0 - 15.5 %PLT 199 166 - 358 10*3/?LMPV 12.1 9.5 - 12.9 fLNRBC/100 WBC 0.0 0.0 - 10.0 /100 WBCsNRBC x10^3 <0.01 10*3/?LGRAN MAT (NEUT) % 84.1 %IMM GRAN % 0.30 %LYMPH % 9.8 %MONO % 5.0 %EOS % 0.2 %BASO % 0.6 %GRAN MAT x10^3(ANC) 7.64 (*) 1.88 - 7.09 10*3/uLIMM GRAN x10^3 0.03 0.00 - 0.06 10*3/uLLYMPH x10^3 0.89 (*) 1.32 - 3.29 10*3/uLMONO x10^3 0.45 0.33 - 0.92 10*3/uLEOS x10^3 <0.03 (*) 0.03 - 0.39 10*3/uLBASO x10^3 0.05 0.01 - 0.07 10*3/uLCOMP. METABOLIC PANEL (11235) - AbnormalNA 136 135 - 145 mmol/LK 3.2 (*) 3.5 - 5.0 mmol/LCL 100 98 - 108 mmol/LCO2 TOTAL 24 23 - 31 mmol/LAGAP 12 2 - 16BUN 11 7 - 23 mg/dLGLUCOSE 166 (*) 70 - 110 mg/dLCREATININE 0.52 0.50 - 1.04 mg/dLTOTAL BILI 1.1 0.1 - 1.1 mg/dLCALCIUM 10.2 8.6 - 10.6 mg/Nancy PROTEIN 7.4 6.3 - 8.2 g/dLALBUMIN 4.3 3.5 - 5.0 g/dLALK PHOS 93 34 - 122 U/LALTv 178 (*) 5 - 35 U/LAST(SGOT) 173 (*) 13 - 40 U/LeGFR 114.8 mL/min/1.97i6ZNVHWIXVAB - AbnormalAPPEARANCE Cloudy (*) ClearCOLOR Rosalina (*) YellowPH 6.0 4.8 - 8.0SP GRAVITY 1.024 1.003 - 1.030GLU U QUAL Normal NormalBLOOD Negative NegativeKETONES 5 mg/dL (*) NegativePROTEIN 100 mg/dL (*) NegativeUROBILIN 2.0 mg/dL (*) NormalBILIRUBIN Negative NegativeNITRITE Negative NegativeLEUK BIRDIE Negative NegativeRBC/HPF 3 0 - 3 HPFWBC/HPF 2 0 - 5 HPFBACTERIA Negative NegativeMUCOUS Moderate (*) Negative LPFSQ EPITH 42 HPFCA OXALATE 56 (*) <=1 HPFLIPASE - NormalLIPASE 54 0 - 220 U/LTROPONIN I - NormalTROPONIN I 0.005 <=0.034 ng/mLEKG:If EKG completed, see Procedure Note.Orders and Treatments:Orders Placed This EncounterProceduresCT ABDOMEN PELVIS W CONTRASTCBC WITH DIFFCOMP. METABOLIC PANEL (97788)LIPASETROPONIN IURINALYSISOrders Placed This EncounterMedicationsNaCl 0.9% (NS) bolus infusion 1,000 mLmorpHINE (4 mg/mL) injection 4 mgproMETHazine (PHENERGAN) 12.5 mg in NS 50 mL IV piggyback (CNR)famotidine (PEPCID (PF)) injection 20 mgiopamidol (ISOVUE 370-500 mL) injection 85 mLproMETHazine 25 mg tabletdicyclomine 20 mg tablettraMADoL 50 mg tabletFirst Provider Eval:ED EventsDate/Time Event User Kutazcud25/23/24 1408 Medical Screening Begins JIMBO ROMERO MD --05/05/24 1408 First Provider Evaluation JIMBO ROMERO MD --ED COURSEDiagnosis/Impression as of 05/05/24 1736Abdominal pain, unspecified abdominal locationNausea and vomiting, unspecified vomiting typeDiarrhea, unspecified typeProcedures:EKG-12 Lead ROUTINE ONCEDate/Time: 05/05/2024 2:33 PMPerformed by: Jimbo Romero MDAuthorized by: Jimbo Romero MDECG interpreted by ED Physician in the absence of a clinical administrator: yesPrevious ECG:Previous ECG: Compared to currentComparison ECG info: Compared to EKG of 09/15/2023 no significant changesInterpretation:Interpretation: non-specificRate:ECG rate: 67ECG rate assessment: normalRhythm:Rhythm: sinus rhythmEctopy:Ectopy: noneQRS:QRS axis: Normal (-13)ST segments:ST segments: Non-specificT waves:T waves: non-specificComments:Qtc 454MDM:Medical Decision MakingPrimary impression: nausea with vomitingSecondary impression: diarrhea, abdominal painDifferential Diagnoses, including but not limited to: electrolyte / glucose abnl, anemia, manuel, pancreatitis, gastritis, cholecystitis, recurrent diverticulitis, cystitis, arrhythmia, acute coronary eventProblems Addressed:Abdominal pain, unspecified abdominal location: acute illness or injuryNausea and vomiting, unspecified vomiting type: acute illness or injuryAmount and/or Complexity of Data ReviewedIndependent Historian:Details: selfLabs: ordered. Decision-making details documented in ED Course.Radiology: ordered. Decision-making details documented in ED Course.RiskPrescription drug management.Parenteral controlled substances.Risk Details: Unremarkable OBS in ED. Symptoms improved. Declines PO challenge. Resting comfortably. Findings and plan discussed with patient. No findings that require acute hospitalization today. Symptomatic mgmt.Flowsheet Documentation:Scoring Tools:No data recordedDisposition/Condition:ED DispositionED DispositionDisch - HomeConditionStableComment--Discharge Medications:Patient's MedicationsSTART taking these medicationsDICYCLOMINE 20 MG TABLET Take 1 tablet by mouth every 6 (six) hours as needed for Abdominal pain.PROMETHAZINE 25 MG TABLET Take 1 tablet by mouth every 6 (six) hours as needed for Nausea and Vomiting (N/V).TRAMADOL 50 MG TABLET Take 1 tablet by mouth every 6 (six) hours as needed (pain). Indications: acute painCONTINUE taking these medications which have NOT CHANGEDALBUTEROL 90 MCG/ACTUATION INHALER Inhale 2 Puffs every 4 (four) hours as needed for Wheezing or Shortness of Breath.ASPIRIN 81 MG CHEWABLE TABLET Take 1 tablet by mouth in the morning.BENZONATATE 100 MG CAPSULE Take 1 capsule by mouth every 8 (eight) hours as needed for Cough.BUSPIRONE 10 MG TABLET Take 2 tablets by mouth in the morning and 2 tablets in the evening. Take 2 tablets by mouth twice a dayDIAZEPAM 5 MG TABLET Take 1 tablet by mouth 2 (two) times daily as needed for Agitation or Anxiety.KETOROLAC 10 MG TABLET Take 1 tablet by mouth every 8 (eight) hours.METOPROLOL TARTRATE 50 MG TABLET Take 2 tablets by mouth in the morning. Take 2 tablets by mouth once dailyOMEPRAZOLE 20 MG TABLET Take 1 tablet by mouth in the morning.ONDANSETRON 4 MG TABLET Take 1 tablet by mouth every 6 (six) hours as needed for Nausea and Vomiting (N/V).ONDANSETRON 4 MG TABLET Take 1 tablet by mouth every 8 (eight) hours as needed for Nausea and Vomiting (N/V).PANTOPRAZOLE 40 MG EC TABLET TAKE ONE TABLET BY MOUTH DAILYTRAZODONE 50 MG TABLET Take 1 tablet by mouth at bedtime as needed for Insomnia.START taking Modified Medications as PrescribedNo medications on fileSTOP taking these medicationsNo medications on fileFollow-up:PCPElectronically signed by:Jimbo Romero MD05/05/24 1736 30883-3Agkyqryje Emergency department HsgpNJ2001-92-24W11:36:44Physician Emergency department NoteTXT1.2.840.523545.1.13.104.2.7.2.503914|2129 280796XBLwwedyfzf for patient nvwc81311-1Vudzscryt department NoteLNNARRATIVEFormatted C-CDA narrative text[address] StreetGt[id number] TBUMOKFWTW8238-59-42D94:36:441.2.840.711854.1.72 .3.15|1.2.840.727852.1.13.104.2.7.2.727879_21293 20651 [facility] 2024-01-23 16:30:35 3448-63-82M83:30:35Formatting of this no te might be different from the original.Problem: PainGoal: Control of pain at or below patient's documented comfort goalOutcome: Adequate for dischargeGoal: Reduction in pain sensationOutcome: Adequate for dischargeProblem: Venous Thromboembolism, (actual or risk of)Goal: Absence of venous thromboembolism (Risk)Outcome: Adequate for dischargeGoal: Prevent further complications associated with VTE diagnosis (Actual)Outcome: Adequate for dischargeProblem: Skin integrity Impaired (Risk or Actual)Goal: Prevention of new skin breakdownOutcome: Adequate for dischargeProblem: Discharge PlanningGoal: Adequate for dischargeOutcome: Adequate for discharge 20538-7Rpek of care bpnpGN9089-45-53D92:30:37Plan of care noteTXT1.2.840.831572.1.13.104.2.7.2.208820|2046 122319JSMeimtptiy for patient fpyc76792-5EuldRXAXSFLKQMFTzcbrbhpe C-CDA narrative gjrm807687858Oxihde Tessa Tessa Alvarez [address] [id number] ETUYFMGWTP0114-48-47B51:30:371.2.840.431505.1.72 .3.15|1.2.840.177893.1.13.104.2.7.2.727879_20474 83430 Selene Alvarez [facility] 2024-01-23 03:58:50 6885-24-08D28:58:50Formatting of this no te might be different from the original.Problem: PainGoal: Control of pain at or below patient's documented comfort goalOutcome: Progressing as expectedGoal: Reduction in pain sensationOutcome: Progressing as expectedProblem: Venous Thromboembolism, (actual or risk of)Goal: Absence of venous thromboembolism (Risk)Outcome: Progressing as expectedGoal: Prevent further complications associated with VTE diagnosis (Actual)Outcome: Progressing as expectedProblem: Skin integrity Impaired (Risk or Actual)Goal: Prevention of new skin breakdownOutcome: Progressing as expectedProblem: Discharge PlanningGoal: Adequate for dischargeOutcome: Progressing as expected 96801-0Sabk of care erxvDJ3301-07-97N06:58:53Plan of care noteTXT1.2.840.098063.1.13.104.2.7.2.193377|6 464470PMSvamziboi for patient dekq18854-0WdlvTGDRYXVXASRUrutoskju C-CDA narrative [id number] Cardenas [address] StreetKw[id number] AMMGAQESII4502-63-25W50:58:531.2.840.032086.1.72 .3.15|1.2.840.334343.1.13.104.2.7.2.727879_20464 34384 Katelyn Raymond RN [facility] 2024-01-22 17:23:03 7451-61-17D41:23:03Formatting of this no te might be different from the original.Problem: PainGoal: Control of pain at or below patient's documented comfort goalOutcome: Progressing as expectedGoal: Reduction in pain sensationOutcome: Progressing as expectedProblem: Venous Thromboembolism, (actual or risk of)Goal: Absence of venous thromboembolism (Risk)Outcome: Progressing as expectedGoal: Prevent further complications associated with VTE diagnosis (Actual)Outcome: Progressing as expectedProblem: Skin integrity Impaired (Risk or Actual)Goal: Prevention of new skin breakdownOutcome: Progressing as expectedProblem: Discharge PlanningGoal: Adequate for dischargeOutcome: Progressing as expected 62550-3Izux of care rtquQS4026-73-94T37:23:04Plan of care noteTXT1.2.840.514720.1.13.104.2.7.2.510521|2046 261512UATaziocmuk for patient zvjk19869-7BpfsOYTLOZZBJHUPhldcwxlt C-CDA narrative textUT41 [address] [id number] URMVFJYYJA5669-38-99F55:23:041.2.840.517241.1.72 .3.15|1.2.840.160087.1.13.104.2.7.2.727879_20464 89313 [facility] 2024-01-21 23:40:11 9151-43-45Q59:40:11Formatting of this no te might be different from the original.Problem: PainGoal: Control of pain at or below patient's documented comfort goalOutcome: Progressing as expectedGoal: Reduction in pain sensationOutcome: Progressing as expectedProblem: Venous Thromboembolism, (actual or risk of)Goal: Absence of venous thromboembolism (Risk)Outcome: Progressing as expectedGoal: Prevent further complications associated with VTE diagnosis (Actual)Outcome: Progressing as expectedProblem: Skin integrity Impaired (Risk or Actual)Goal: Prevention of new skin breakdownOutcome: Progressing as expectedProblem: Discharge PlanningGoal: Adequate for dischargeOutcome: Progressing as expected 10474-7Zcot of care llpcPE4390-78-67Q69:40:14Plan of care noteTXT1.2.840.344203.1.13.104.2.7.2.615924|2045 716542VCWehfiywso for patient eejx09703-4JzzcJCJGIDRVRMTBfjmhgscz C-CDA narrative text[address]Ahx[id number] KBHMQTBWHY9668-78-62C40:40:141.2.840.224153.1.72 .3.15|1.2.840.213193.1.13.104.2.7.2.727879_20455 76561 [facility] 2024-01-21 12:04:59 9320-70-93M79:04:59Formatting of this no te might be different from the original.Problem: PainGoal: Control of pain at or below patient's documented comfort goalOutcome: Progressing as expectedGoal: Reduction in pain sensationOutcome: Progressing as expectedProblem: Venous Thromboembolism, (actual or risk of)Goal: Absence of venous thromboembolism (Risk)Outcome: Progressing as expectedGoal: Prevent further complications associated with VTE diagnosis (Actual)Outcome: Progressing as expectedProblem: Skin integrity Impaired (Risk or Actual)Goal: Prevention of new skin breakdownOutcome: Progressing as expectedProblem: Discharge PlanningGoal: Adequate for dischargeOutcome: Progressing as expected 80376-2Scgg of care tdqgHD2892-23-88D22:05:03Plan of care noteTXT1.2.840.898610.1.13.104.2.7.2.153457|2045 092825NGPyxlsekgt for patient ocdi42547-7XbmdJZTYYUTBSBUNcbqthvsc C-CDA narrative uxcu849577329Duadvg L Saldana [address] StreetFacmHlduhnvjbFjdrfkhdwMSPT2330068571ARKEKPJAFEES VHCCTWPKWW0757-40-43E70:05:031.2.840.916748.1.72 .3.15|1.2.840.586010.1.13.104.2.7.2.727879_20455 55206 Jasen Clancy [facility] 2024-01-20 23:32:54 8570-60-48N68:32:54Formatting of this no te might be different from the original.Problem: PainGoal: Control of pain at or below patient's documented comfort goal01/20/2024 233 by Armando Ram RNOutcome: Progressing as expected01/20/2024 233 by Armando Ram RNOutcome: Progressing as expected01/20/2024 233 by Armando Ram RNOutcome: Progressing as expectedGoal: Reduction in pain sensation01/20/20242331 by Armando Ram RNOutcome: Progressing as expected01/20/2024 233 by Armando Ram RNOutcome: Progressing as expected01/20/2024 233 by Armando Ram RNOutcome: Progressing as expectedProblem: Venous Thromboembolism, (actual or risk of)Goal: Absence of venous thromboembolism (Risk)01/20/20242331 by Armando Ram RNOutcome: Progressing as expected01/20/2024 233 by Yo, Viness Maryanne M, RNOutcome: Progressing as expected01/20/2024 233 by Armando Ram, RNOutcome: Progressing as expectedGoal: Prevent further complications associated with VTE diagnosis (Actual)01/20/2024 233 by Armando Ram, RNOutcome: Progressing as expected01/20/2024 2332 by Armando Ram, RNOutcome: Progressing as expected01/20/2024 233 by Armando Ram RNOutcome: Progressing as expectedProblem: Skin integrity Impaired (Risk or Actual)Goal: Prevention of new skin breakdown01/20/2024 233 by Armando Ram RNOutcome: Progressing as expected01/20/2024 233 by Armando Ram RNOutcome: Progressing as expected01/20/2024 233 by Armando Ram RNOutcome: Progressing as expectedProblem: Discharge PlanningGoal: Adequate for discharge01/20/2024 233 by Armando Ram, RNOutcome: Progressing as expected01/20/2024 233 by Armando Ram, RNOutcome: Progressing as expected01/20/2024 233 by Armando Ram RNOutcome: Progressing as expected 56393-1Vjcd of care ooulRL7060-49-60P78:32:59Plan of care noteTXT1.2.840.590165.1.13.104.2.7.2.592773|2045 994614NBPeqhcktur for patient ubes80203-1YzucGQFKIKDPOCEUsybabhlo C-CDA narrative text[address] YylbXejkujpwgIwdjjgzenXFQG4088990508TSWHZSCFFCNZ WSSXXLFKQV5288-02-99T95:32:591.2.840.590301.1.72 .3.15|1.2.840.883041.1.13.104.2.7.2.727879_20453 23286 [facility] 2024-01-20 18:47:33 4483-98-22X16:47:33Formatting of this no te might be different from the original.Patient admitted to [facility] [address] for diagnosis of generalized abdominal pain, facial swelling, dental caries, alcohol dependence with unspecified alcohol-induced disorder, acute diverticulitis of intestine.Patient agrees to admission, discussed plan of care with patient and family.Patient is awake, A&Ox4, RR even and unlabored on RA. Color appropriate for race. PIV intact x2 infusing normal saline.No adverse reaction to medications administered while in ED.Belongings with patient to unit. 54971-1Gyqxhebzk department OyaiPD8218-02-48C46:49:12[facility] NoteTXT1.2.840.817170.1.13.104.2.7.2.546599|2045 447198WUPlampzwjp for patient wlzd57537-6PiorKRRKCZDYZQENnbyrqmof C-CDA narrative textUT[address] SnhiB[id number] FHGKKDJUVY5472-97-01S10:49:121.2.840.603075.1.72 .3.15|1.2.840.303750.1.13.104.2.7.2.727879_20453 80824 [facility] 2024-01-20 18:46:28 4649-82-47Q46:46:28Formatting of this no te might be different from the original.Nurse ReportReport given to BONY Aggarwal. Chief complaint, assessment findings, infusion verify and orders reviewed. Plan of care discussed with both nurses. Patient/family members [place] [address]-0Hieugrfuv department WcbpNC7084-43-03D74:46:44[facility] department NoteTXT1.2.840.988551.1.13.104.2.7.2.261488|2045 379727ORYjfpeetpr for patient eztv13181-8FwtyYIGFILZICVQTsculfaqm C-CDA narrative [id number] FLORESGFZJWNDHLM3985-73-81S88:46:441.2.840.295717.1.72 .3.15|1.2.840.513461.1.13.104.2.7.2.727879_20453 64001 [facility] 2024-01-20 15:40:50 0885-95-10H19:40:50Formatting of this no te might be different from the original.Patient arrived via [facility] c/o of abdominal pain on and off for the past several weeks associated with nausea, vomiting, diarrhea today it has gotten worse where she had trouble keep her balance at work.EMS established iv detacker gave 15 toradol, 40 of fentanyl and 4 zofran.Hx: pancreatitis 29575-6Psisrpbim department Triage iusfXS3733-12-16T96:43:02Emer[facility] Triage noteTXT1.2.840.141378.1.13.104.2.7.2.067545|2045 046300YNWfzxwokxe for patient lwfp22378-5Mpwanubbz department NoteLNNARRATIVEFormatted C-CDA narrative [id number] NSDHAPZSRH8908-49-66X04:43:021.2.840.731962.1.72 .3.15|1.2.840.229382.1.13.104.2.7.2.727879_20453 34947 [facility] 2024-01-20 15:37:00 2259-15-80M13:37:00Formatting of this no te might be different from the original.AdmissionCareGuideline: Diverticulitis (Acute) - OBS, ObservationBased on the indications selected for the patient, the bed status of Observation was determined to be METThe following indications were selected as present at the time of evaluation of the patient:- Acute symptoms (eg, pain, vomiting) not sufficiently responsive to emergency department care- Findings necessitating further evaluation (eg, abscess, pericolic extraluminal gas on imaging)AdmissionCare documentation entered by: Jeanna DeanFormerly [facility], 27th edition, Copyright ? 2022 [facility] All Rights Reserved.7989-27-40Q23:52:45-06:00 188249MA Admission Criteria1.2.840.290556.1.13.104.2.7.4.506263.501 :52:46EC Admission CriteriaTXT1.2.840.721980.1.13.104.2.7.2.038474| 1341052123LCNhhuimqfj for patient fijx89535-8ApliFUPESJPCNVBHtotrbihg C-CDA narrative text[address] FxtrRjfkpnoxaCxgfkhmlhOOCE1305256363OEKSAJSIZFZS LECUZRYYBX6550-02-06Y74:52:461.2.840.826260.1.72 .3.15|1.2.840.466631.1.13.104.2.7.2.727879_20453 00979 [facility] 2023-11-09 13:48:59 7595-27-93V55:48:59Formatting of this no te is different from the original.TRANSITIONAL CARE MANAGEMENT EZLENERATT39/28/2023Melanie Salgado448642QMelanie Salgado is a 48 year old /White female was admitted on 11/03/23 to [facility] ICU. She was discharged on 11/05/23 with discharge disposition of HR- Routine Discharge.Admitting Physician: Rubia SaleemDischarge Diagnosis: Acute alcoholic pancreatitisHypokalemiaHypomagnesemiaLinked EpisodesType: Episode: Status: Noted: Resolved: Last update: Updated by:TRANSITION OF CARE TCM Active 11/09/2023 11/09/2023 9:38 AM Nighat Sanchez RNComments:SAMANTHA Paj-qmvg-zk-face outreach documentation:Discharge AssessmentChart Assessed: 11/09/23Future Appointments:Future AppointmentsProvider Department Dept Phone12/20/2023 2:00 PM Jessica Piedra MD [facility] [phone] CM attempted to contact patient x2. CM left a discreet voicemail explaining purpose of call and call back information. Nighat Sanchez RN, MSN, MEDSURG-BC, CCRN, CCMTransitions of Care ManagerProficient Indonesian InterpreterAmbulatory Care ManagementOffice: [phone] signed by Nighat Sanchez RN at 11/09/2023 1:49 PM BXR80548-9Cjjodazfz encounter ZluwWH3065-97-44I19:49:43Telephone encounter NoteTXT1.2.840.943943.1.13.104.2.7.2.133542|1986 407933ZLTeaowxzyy for patient uari30075-0AcnbXDLQNDNBXPVEtxkyuncb C-CDA narrative cxsb425147886Ohhtu Daniel LOVETT[address] FnugPixieeaojBjorlkhgfEKSE0534740246GJDBGEJNTLLT JCZIGNVEHX7459-54-99I09:49:431.2.840.302936.1.72 .3.15|1.2.840.367031.1.13.104.2.7.2.727879_19860 83330 Nighat Sanchez RN [facility] 2023-11-09 09:39:04 9352-87-90A51:39:04Formatting of this no te might be different from the original.REGI LVM to return call. Will attempt again at a later time. 71487-0Chekkotuf encounter MunqME5117-18-17H42:39:28Telephone encounter NoteTXT1.2.840.497755.1.13.104.2.7.2.131271|1985 227374OXPrqtnvzsd for patient useb35349-0EqceWALEKFZQDFOTgwgwyjke C-CDA narrative text[id number] TQSVNVLMPS4062-78-01A69:39:281.2.840.475731.1.72 .3.15|1.2.840.724345.1.13.104.2.7.2.727879_19868 28830 [facility] 2023-11-05 12:49:40 9685-44-45R79:49:40Formatting of this no te might be different from the original.Problem: Discharge PlanningGoal: Adequate for dischargeOutcome: Adequate for dischargeGoal: Effective communicationOutcome: Adequate for dischargeProblem: PainGoal: Control of pain at or below patient's documented comfort goalOutcome: Adequate for dischargeGoal: Reduction in pain sensationOutcome: Adequate for dischargeProblem: Falls, Risk ofGoal: Absence of fallsOutcome: Adequate for discharge 46893-0Dwvz of care zamfBJ0622-84-31T87:49:42Plan of care noteTXT1.2.840.241582.1.13.104.2.7.2.279610|1984 780825ZKIftsasabl for patient kvtg89988-7SkgaCCKLROHZNCJIpekbwnrb C-CDA narrative cepn218439009FydhTabitha FUNG[id number] OVRAFEJOYJ8295-51-82O14:49:421.2.840.175501.1.72 .3.15|1.2.840.866692.1.13.104.2.7.2.727879_ 03034 Tabitha Cuenca RN [facility] 2023-11-04 23:01:08 3763-50-47J84:01:08Formatting of this no te might be different from the original.Problem: Discharge PlanningGoal: Adequate for dischargeOutcome: Progressing as expectedGoal: Effective communicationOutcome: Progressing as expectedProblem: PainGoal: Control of pain at or below patient's documented comfort goalOutcome: Progressing as expectedGoal: Reduction in pain sensationOutcome: Progressing as expectedProblem: Falls, Risk ofGoal: Absence of fallsOutcome: Progressing as expected 20228-6Pubx of care itfoCG4249-44-99S86:01:12Plan of care noteTXT1.2.840.875223.1.13.104.2.7.2.865933|1984 656419ALZhntdxcni for patient awrc20772-2EqidBJAJRADHFIXZwcminnsr C-CDA narrative text[address] MybpAqagkrmltBwukpkiwgFPDQ7033741468XHIWWFWSBMWA JVLUOAIOPT5933-16-18I48:01:121.2.840.312298.1.72 .3.15|1.2.840.755435.1.13.104.2.7.2.727879_19840 43449 [facility] 2023-11-04 18:58:13 4924-27-47J21:58:13Formatting of this no te might be different from the original.Problem: Discharge PlanningGoal: Adequate for dischargeOutcome: Progressing as expectedGoal: Effective communicationOutcome: Progressing as expectedProblem: PainGoal: Control of pain at or below patient's documented comfort goalOutcome: Progressing as expectedGoal: Reduction in pain sensationOutcome: Progressing as expectedProblem: Falls, Risk ofGoal: Absence of fallsOutcome: Progressing as expected 68892-1Mpgd of care niwfCC0545-63-82K08:58:18Plan of care noteTXT1.2.840.746905.1.13.104.2.7.2.181231|1983 111841SIFpoghllao for patient ekqb52156-8LarcZPUTPRXYPHSSfhdnzmkd C-CDA narrative Fontself48 [id number] GCSCNPEEVE8319-68-32O17:58:181.2.840.920323.1.72 .3.15|1.2.840.817539.1.13.104.2.7.2.727879_19849 65516 [facility] 2023-11-04 03:41:35 8636-73-65H06:41:35Formatting of this no te might be different from the original.Problem: Discharge PlanningGoal: Adequate for dischargeOutcome: Progressing as expectedGoal: Effective communicationOutcome: Progressing as expectedProblem: PainGoal: Control of pain at or below patient's documented comfort goalOutcome: Progressing as expectedGoal: Reduction in pain sensationOutcome: Progressing as expectedProblem: Falls, Risk ofGoal: Absence of fallsOutcome: Progressing as expected 25561-1Pfnd of care tpvxDD1714-06-15S39:41:39Plan of care noteTXT1.2.840.164871.1.13.104.2.7.2.551354|1983 623387ICBgdrkytvr for patient pslj00322-0RgcqQIJZLCVURSPIluhdmyyp C-CDA Plaxica[id number] VIEW REGIONAL HOSPITAL - CASPEREMWSSQCCYL7254-51-82T50:41:391.2.840.450224.1.72 .3.15|1.2.840.584212.1.13.104.2.7.2.727879_19846 43974 [facility] 2023-11-04 01:40:57 1611-42-77Q07:40:57Formatting of this no te might be different from the original.Patient admitted to Med/surg for diagnosis of epigastric abdominal pain, alcohol-indused acute pancreatitis, and hypokalemiaPatient agrees to admission, discussed plan of care with patient and family.Patient is awake, alert, oriented, resp reg unlabored, color appropriate for race, PIV intactNo adverse reaction to medications administered while in EDBelongings with patient to unitReport to Mónica LOVETT 77469-2Mfvurylbv department MljrVD4578-78-36K59:42:46Emergen department NoteTXT1.2.840.793016.1.13.104.2.7.2.484319|1984 353946ZUXebpnziaz for patient fqwf37565-2QgbvUODDCFKQEXGTdgtkcpgv C-CDA narrative qvmi576572883Pqlffjo A Diaz RN[address] RhubTtkornfpjJvmbxxipyDWPA4681394587WNYATLSLXXXI LIPNCOVOMF3030-65-57I38:42:461.2.840.733626.1.72 .3.15|1.2.840.230173.1.13.104.2.7.2.727879_19846 54669 Monica Elder RN [facility] 2023-11-04 00:59:08 8112-81-09A42:59:08Formatting of this no te might be different from the original.Nurse ReportReport given to BONY Sales over the phone, no questions received. Chief complaint, assessment findings and medications were discussed. Plan of care discussed with patient, patient aware of plan.Patient in stable condition at time report was given,no distress. Vital signs reassessed.[place] [address]-7Iwxoowesx department CokeDK9169-02-41Z22:59:31Emer[facility] department NoteTXT1.2.840.575005.1.13.104.2.7.2.674873|1983 237356SUNoxerkeel for patient abof87040-8ZuaeNQSNOCONQNEZsgxoirpa C-CDA narrative ublh674729688Wrvwvwvr Oxford RN[id number] VVINYSCWGX2338-10-60S45:59:311.2.840.202534.1.72 .3.15|1.2.840.671768.1.13.104.2.7.2.727879_19846 59008 Jodi Peter RN [facility] 2023-11-03 22:44:30 9362-61-47S38:44:30Formatting of this no te might be different from the original.Abdominal pain and nausea since AM. Tender to mid upper abdomen. Vomited x 3 and "a lot of dry heaving"HX: Anxiety, HTN, PancreatitisLJEMS started 18 g iv to right forearmGave:1 liter PXTQ48os bsrifmb39.5 mg Xztvkhcxo322 mcg FentanylBGL 180 44720-0Ulbksxyaj department Triage tbbtSK1491-48-77I37:48:07Emer[facility] department Triage noteTXT1.2.840.191754.1.13.104.2.7.2.629495|1983 901986PFLizbmopve for patient kaag09897-8Treopfrtx department NoteLNNARRATIVEFormatted C-CDA narrative mbos364071250XrrpmOphelia Paul RN[id number] YNBETSOKRQ7273-23-35U61:48:071.2.840.181272.1.72 .3.15|1.2.840.978407.1.13.104.2.7.2.727879_19846 95075 Ophelia Paul RN [facility] - [facility] 2023-11-03 22:42:00 8297-06-93L16:42:00Formatting of this no te is different from the original.[facility] Emergency Department NotePatient Name: Melanie Lite of : 1975 48 year old femaleTreatment Room: [address] Record Number: [id number] Care Physician: Jessica PiedraPatient Escorted by: Self [9]Mode of Arrival: EMS - [facility] [51]EMS Treatment Prior to ED Arrival:Travel and Exposure Screening:SymptomsDoes patient have any of these symptoms?: (not recorded)Exposure ScreeningHas patient had contact with someone with a communicable disease in the last month?: (not recorded)Diseases exposed to:: (not recorded)Is Patient ?: (not recorded)Exposure Date: (not recorded)Chief Complaint:Chief ComplaintPatient presents withAbdominal PainHistory of Present Illness:This is a 48 year old female with epigastric pain and vomiting. Reports drinking 4 alcoholic drinks last evening, and emesis started this morning. No diarrhea. No fever, chills. Emesis is >20 episodes, dry heaves now, not bloody. Pain is aching, constant, moderate, burning, does not radiate to back. Denies black tarry stools. She has a history of alcohol induced pancreatitis in the past. Lives alone, reports no self harm. EMS gave patient 1L IVF, ketorolac, fentanyl, and promethazine. Patient reports symptoms are significantly improved afterward.Past Medical History/Immunizations:Past Medical History:Diagnosis DateAlcoholismAnxietyDepressionHTN (hypertension)PancreatitisTetanus received in last 5 years: YesChildhood immunizations: Ol-ky-uxixVtjybtjkx:AllergiesAllergen ReactionsRocephin [Ceftriaxone Sodium] AnaphylaxisPast Social History:Tobacco UseEvery Day; 0.50 packs/day for 20.00 years; Types: CigarettesSmokeless Tobacco: Never used smokeless tobacco.Vaping UseNever usedAlcohol UseNot Currently.Comments: quit Nov 2019Drug UseYes; Marijuana.Past Surgical History:Past Surgical History:Procedure Laterality DateCOLONOSCOPY N/A 03/05/2020Surgeon: Nohemi Magallon MD; [facility] Upper 03/04/2020Surgeon: Nohemi Magallon MD; [facility] ANESTHESIA FACIAL BONES OR SKULL NOSREVISE TOTAL HIP REPLACEMENTReview of Systems:Review of SystemsConstitutional: Negative for chills and fever.HENT: Negative for congestion.Respiratory: Negative for cough and shortness of breath.Cardiovascular: Negative for chest pain and leg swelling.Gastrointestinal: Positive for abdominal pain, nausea and vomiting. Negative for blood in stool and diarrhea.Genitourinary: Negative for dysuria and frequency.Musculoskeletal: Negative for back pain.Skin: Negative for rash.Neurological: Negative for dizziness, weakness, numbness and headaches.Psychiatric/Behavioral: Negative for confusion.Physical Exam:ED Triage Vitals [11/03/23 2248]Weight 77.1 kg (170 lb)Actual or estimated Estimated by patient/family reportHeight 1.6 m (5' 3")BP (!) 182/132Pulse 85Resp 14Temp 36.8 ?C (98.3 ?F)Temp source OralSpO2 96 %Measured on Room airPhysical ExamVitals and nursing note reviewed.Constitutional:General: She is not in acute distress.Appearance: Normal appearance. She is well-developed. She is not ill-appearing, toxic-appearing or diaphoretic.HENT:Nose: No congestion.Mouth/Throat:Mouth: Mucous membranes are moist.Eyes:General: No scleral icterus.Conjunctiva/sclera: Conjunctivae normal.Cardiovascular:Rate and Rhythm: Normal rate and regular rhythm.Heart sounds: Normal heart sounds. No murmur heard.No friction rub. No gallop.Pulmonary:Effort: Pulmonary effort is normal. No respiratory distress.Breath sounds: Normal breath sounds. No stridor. No wheezing or rales.Abdominal:General: There is no distension.Palpations: There is no mass.Tenderness: There is abdominal tenderness. There is no guarding or rebound.Comments: Epigastric tenderness, no peritonitis, no Qureshi's sign.Musculoskeletal:Cervical back: Normal range of motion and neck supple.Right lower leg: No edema.Left lower leg: No edema.Skin:General: Skin is warm and dry.Capillary Refill: Capillary refill takes less than 2 seconds.Coloration: Skin is not pale.Findings: No erythema or rash.Neurological:General: No focal deficit present.Mental Status: She is alert and oriented to person, place, and time.Psychiatric:Mood and Affect: Mood normal.Behavior: Behavior normal.Radiology:No orders to displayLab Results:Lab ResultsCOMP. METABOLIC PANEL (18068) - AbnormalResult Value Ref RangeNA 136 135 - 145 mmol/LK 2.6 (*) 3.5 - 5.0 mmol/LCL 101 98 - 108 mmol/LCO2 TOTAL 26 23 - 31 mmol/LAGAP 9 2 - 16BUN 20 7 - 23 mg/dLGLUCOSE 180 (*) 70 - 110 mg/dLCREATININE 0.64 0.50 - 1.04 mg/dLTOTAL BILI 0.6 0.1 - 1.1 mg/dLCALCIUM 9.0 8.6 - 10.6 mg/Nancy PROTEIN 7.0 6.3 - 8.2 g/dLALBUMIN 4.0 3.5 - 5.0 g/dLALK PHOS 111 34 - 122 U/LALTv 56 (*) 5 - 35 U/LAST(SGOT) 50 (*) 13 - 40 U/LeGFR 109.2 mL/min/1.97o7FJIQYZ - AbnormalLIPASE 1,327 (*) 0 - 220 U/LCBC WITH DIFF - AbnormalWBC 8.96 4.30 - 11.10 10*3/?LRBC 4.18 3.93 - 5.25 10*6/?LHGB 12.1 11.6 - 15.0 g/dLHCT 37.3 35.7 - 45.2 %MCV 89.2 80.6 - 95.5 fLMCH 28.9 25.9 - 32.8 pgMCHC 32.4 31.6 - 35.1 g/dLRDW-SD 47.8 39.0 - 49.9 fLRDW-CV 14.7 12.0 - 15.5 %PLT 243 166 - 358 10*3/?LMPV 10.0 9.5 - 12.9 fLNRBC/100 WBC 0.0 0.0 - 10.0 /100 WBCsNRBC x10^3 <0.01 10*3/?LGRAN MAT (NEUT) % 86.6 %IMM GRAN % 0.40 %LYMPH % 7.5 %MONO % 4.9 %EOS % 0.2 %BASO % 0.4 %GRAN MAT x10^3(ANC) 7.75 (*) 1.88 - 7.09 10*3/uLIMM GRAN x10^3 0.04 0.00 - 0.06 10*3/uLLYMPH x10^3 0.67 (*) 1.32 - 3.29 10*3/uLMONO x10^3 0.44 0.33 - 0.92 10*3/uLEOS x10^3 <0.03 (*) 0.03 - 0.39 10*3/uLBASO x10^3 0.04 0.01 - 0.07 10*3/uLTROPONIN I - NormalTROPONIN I <0.012 <=0.034 ng/mLHEPATIC FUNCTION PANEL (85959) (ALB,T.PRO,BILI T,BU/BC,ALT,AST,ALK PHOS)PHOSPHORUSLIPASEEKG:If EKG completed, see Procedure Note.Orders and Treatments:Orders Placed This EncounterProceduresUS ABDOMEN LIMITEDCOMP. METABOLIC PANEL (44844)LIPASETROPONIN ICBC WITH DIFFCBC with DifferentialBasic Metabolic Panel (NA, K, CL, CO2, GLUCOSE, BUN, CREATININE, CA)HEPATIC FUNCTION PANEL (89815) (ALB,T.PRO,BILI T,BU/BC,ALT,AST,ALK PHOS)Magnesium SerumPhosphorus SerumLipaseOrders Placed This EncounterMedicationsfamotidine (PEPCID (PF)) injection 20 mgondansetron (ZOFRAN (PF)) injection 4 mglactated ringers IV infusion 1,000 mLpotassium chloride in water 10 mEq/100 mL RTU 10 mEqcloNIDine (CATAPRES) tablet 0.1 mgFENTanyl PF (SUBLIMAZE (PF)) injection 50 mcgNaCl 0.9% (NS) IV infusion 1,000 mLenoxaparin (LOVENOX) injection 30 mgacetaminophen (TYLENOL) tablet 650 mgHYDROcodone-acetaminophen (NORCO 5) 5-325 mg tablet 1 tabletFENTanyl PF (SUBLIMAZE (PF)) injection 25 mcgdocusate (COLACE) capsule 100 mgondansetron (ZOFRAN (PF)) injection 4 mgchlordiazePOXIDE (LIBRIUM) capsule 10 mgdiazePAM (VALIUM) injection 2 mgFirst Provider Eval:ED EventsDate/Time Event User [id number]/22/232246 Medical Screening Begins BENEDICTO VALENTIN MD R --11/03/232246 First Provider Evaluation BENEDICTO VALENTIN MD R --ED COURSEED Course as of 11/04/23 0046Fri Nov 03 Lipase elevated. K+ is 2.6 from emesis, will replete IV. Keep NPO. Admit for pancreatitis, likely ETOH induced, patient updated and agreeable to stay. Start maintenance IV fluids. Glucose normal, no AG. Clonidine for elevated BP. [RM]2302 MDM: Epigastric burning pain, too numerous to count dry heaving episodes, seems to have resolved post Phenergan by EMS. Treat with famotidine and Zofran. Obtain labs to assess for pancreatitis, biliary process, anemia. She endorses ETOH use last evening and there is history of chronic pancreatitis. Abdomen exam without peritonitis. No Qureshi's sign. No jaundice. BP elevated, patient anxious, no tremor, may also be mediated by pain. Received ketorolac and fentanyl per EMS which is controlling the pain for now. Given 1L IVF pre hospital, defer further fluid administration for the time being. Keep NPO. [RM]ED Course User Index[RM] Benedicto Valentin, MDDiagnosis/Impression as of 11/04/23 0046Epigastric abdominal painAlcohol-induced acute pancreatitis, unspecified complication statusHypokalemiaProcedures:ProceduresMDM:Medica l Decision MakingAmount and/or Complexity of Data ReviewedLabs: ordered.RiskPrescription drug management.Parenteral controlled substances.Decision regarding hospitalization.Flowsheet Documentation:Scoring Tools:No data recordedDisposition/Condition:ED DispositionED DispositionAdmit - InpatientConditionStableComment--Discharge Medications:Patient's MedicationsSTART taking these medicationsNo medications on fileCONTINUE taking these medications which have NOT CHANGEDALBUTEROL 90 MCG/ACTUATION INHALER Inhale 2 Puffs every 4 (four) hours as needed for Wheezing or Shortness of Breath.AMLODIPINE 10 MG TABLET Take 10 mg by mouth daily.BUSPIRONE 5 MG TABLET Take 5 mg by mouth 2 (two) times daily.FLUOXETINE 40 MG CAPSULE Take 40 mg by mouth daily.PFTGCT-TSNLDCYU-EEVEOME (CREON) 36,000-114,000- 180,000 UNIT CPDR Take 2 capsules by mouth before meals. Take 2 capsules by mouth with meals and 1 with each snack.METOPROLOL SUCCINATE XL 25 MG 24 HR TABLET Take 25 mg by mouth daily.PANTOPRAZOLE 40 MG EC TABLET TAKE ONE TABLET BY MOUTH DAILYSTART taking Modified Medications as PrescribedNo medications on fileSTOP taking these medicationsLEVOFLOXACIN 750 MG TABLET Take 1 tablet by mouth every 24 (twenty-four) hours.Follow-up:Electronically signed by:Benedicto Valentin MD11/04/23 0017Benedicto Valentin MD11/04/23 0046 [id number] Emergency department [id number] Emergency department [id number] for patient [id number] department NoteLNNARRATIVEFormatted C-CDA narrative text[address] [id number] [id number] .[id number] [facility]
[2024-05-21] MEDS ORDERED: ONDANSETRON 4 MG/2 ML VIAL ONE (09:32)
[2024-05-21] MEDS ORDERED: KETOROLAC 30 MG/ML INJ ONE (09:32)
[2024-05-21] MEDS ORDERED: FAMOTIDINE 20 MG/2 ML VIAL IV ONE (09:33)
[2024-05-21] MEDS ORDERED: NA CHLORIDE 0.9% 1,000 ML ONE (09:33)
[2024-05-21 09:59] LABS: Absolute Basophils 0.1 K/uL (0-0.5); Absolute Eosinophils 0.1 K/uL (0-0.5); Absolute Lymphocytes (CBC) 1.1 K/uL (0.7-4.9); Absolute Monocytes 0.4 K/uL (0.1-1.3); Absolute Neutrophil 6.7 K/uL (1.8-8.0); Basophils % 0.8 % (0-1.3); Eosinophils % 1.2 % (0-4.4); Hematocrit 44.3 % (36.0-45.0); Hemoglobin 14.9 g/dL (12.0-15.0); Lymphocytes % 12.8 % (15.3-44.8); MCH 31.6 pg (27.0-35.0); MCHC 33.7 g/dL (32.0-36.0); MCV 93.8 fL (80-100); Neutrophils % 80.2 % (41.7-73.7); Nucleated Red Blood Cells % 0.4 % (0-0); Platelets 184 thou/uL (152-406); RBC Red Blood Cell Count 4.72 M/uL (3.86-4.86)
[2024-05-21 10:07] LABS: Albumin 3.1 g/dL (3.4-5.0); Albumin/Globulin Ratio 0.9 (1.1-1.8); Anion Gap 6.6 mEq/L (5.0-15.0); Bilirubin Total 0.6 mg/dL (0.2-1.0); Globulin 3.3 g/dL (2.3-3.5); Potassium 3.6 mEq/L (3.5-5.1); Protein, Total 6.4 g/dL (6.4-8.2)
--- NOTE | 2024-05-21 10:55 | RAD REPORT ---
EXAM DESCRIPTION: CT - Abdomen Pelvis W Contrast - 05/21/2024 10:11 am CLINICAL HISTORY: Abdominal pain COMPARISON: none. TECHNIQUE: Computed axial tomography of the abdomen pelvis was obtained. 100 cc Isovue-300 was admin istered intravenously. Oral contrast was not requested which limits evaluation of bowel and appendix All CT scans are performed using dose optimization technique as appropriate and may include automated exposure control or mA/KV adjustment according to patient size. FINDINGS: Compression fracture superior aspect L1 vertebral body estimated 32%. No significant retro pulsion bone into spinal canal. Fatty liver Spleen, pancreas, right adrenal and kidneys are unremarkable 2.1 centimeter left adrenal nodule Hounsfield 60. Additional smaller left adrenal nodule. Normal appendix Diverticula stem colon. Mild to moderate stranding adjacent to the proximal sigmoid colon. 4 millimet er extraluminal air bubble. 6 millimeter abscess. Wall of sigmoid colon thickened. IMPRESSION: Perforated sigmoid diverticulitis. 6 millimeter adjacent abscess. Pneumoperitoneum is no t present. Thickening of the wall of sigmoid colon all likely secondary to inflammation. Neoplasm considered les s likely but can be monitored on subsequent 2.1 centimeter left adrenal nodule probably an adenoma. However, it is recommended that patient chemi eugenio shift MRI for confirmation Gyxl-gl-lyugktns compression fracture L1 vertebral body probably acute/subacute. If clinically indica carrie MRI could be obtained for further evaluation
--- NOTE | 2024-05-21 11:07 | ER ---
Nurse's Notes [facility] Name: Melanie Salgado Age: 48 yrs Sex: Female : 1975 Arrival Date: 05/21/2024 Time: 08:52 Bed 14 Private MD: Diagnosis: Diverticulitis of large intestine with perforation and abscess without bleeding Presentation: 05/21 08:53 Chief complaint: EMS states: n/v/d abd pain and back pain x3 days. Coronavirus screen: kc6 At this time, the client does not indicate any symptoms associated with coronavirus-19. Ebola Screen: No symptoms or risks identified at this time. Initial Sepsis Screen: Does the patient meet any 2 criteria? No. Patient's initial sepsis screen is negative. Does the patient have a suspected source of infection? No. Patient's initial sepsis screen is negative. Risk Assessment: Do you want to hurt yourself or someone else? Patient reports no desire to harm self or others. Onset of symptoms was May 18, 2024. 08:53 Method Of Arrival: EMS: [facility] kc6 08:53 Acuity: STEVEN 3 kc6 08:59 Care prior to arrival: Medication(s) given: zofran 4 mg, 15mg of IV Toradol given en kc6 route IV initiated. 20 GA, in the right forearm, Glucose check: 106. Triage Assessment: 08:55 General: Appears in no apparent distress. uncomfortable, well groomed, well developed, kc6 Behavior is calm, cooperative, appropriate for age. Pain: Complains of pain in left low back, right low back, right lower quadrant and left lower quadrant Pain does not radiate. Pain currently is 10 out of 10 on a pain scale. Quality of pain is described as sharp, stabbing, Pain began 2-3 days ago. Is continuous. EENT: No signs and/or symptoms were reported regarding the EENT system. Neuro: Level of Consciousness is awake, alert, obeys commands, Oriented to person, place, time, situation, Appropriate for age. Cardiovascular: Capillary refill < 3 seconds. Respiratory: Airway is patent Trachea midline Respiratory effort is even, unlabored, Respiratory pattern is regular, symmetrical. GI: Abdomen is flat, non-distended, Reports lower abdominal pain, diarrhea, intolerance of fluids, intolerance of food, nausea, vomiting. : No signs and/or symptoms were reported regarding the genitourinary system. Derm: No signs and/or symptoms reported regarding the dermatologic system. Skin is intact, is healthy with good turgor, Skin is pink, warm \\T\\ dry. Musculoskeletal: No signs and/or symptoms reported regarding the musculoskeletal system. Circulation, motion, and sensation intact. Capillary refill < 3 seconds, Range of motion: intact in all extremities. 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 - Infectious Disease History:: Denies. - Social history:: Smoking status: Reported history of juuling and/or vaping. Screenin:[address] [facility] ED Fall Risk Assessment (Adult) History of falling in the last 3 months, kc6 including since admission No falls in past 3 months (0 pts) Confusion or Disorientation No (0 pts) Intoxicated or Sedated No (0 pts) Impaired Gait No (0 pts) Mobility Assist Device Used No (0 pt) Altered Elimination No (0 pt) Score/Fall Risk Level 0 - 2 = Low Risk. Abuse screen: Denies threats or abuse. Denies injuries from another. Nutritional screening: No deficits noted. Tuberculosis screening: No symptoms or risk factors identified. Assessment: 08:52 General: Appears in no apparent distress. uncomfortable, Behavior is calm, cooperative. rs5 Pain: Complains of pain in lower back Pain currently is 9 out of 10 on a pain scale. Quality of pain is described as aching, Is continuous. Neuro: Level of Consciousness is awake, alert, obeys commands, Oriented to person, place, time, situation. Cardiovascular: Patient's skin is warm and dry. Respiratory: Airway is patent Respiratory effort is even, unlabored, Respiratory pattern is regular, symmetrical. GI: Abdomen is round non-distended, Bowel sounds present X 4 quads. Abd is soft and non tender X 4 quads. Reports nausea, vomiting. : No signs and/or symptoms were reported regarding the genitourinary system. EENT: No signs and/or symptoms were reported regarding the EENT system. Derm: Skin is intact, Skin is pink, warm \\T\\ dry. Musculoskeletal: Range of motion: intact in all extremities. 09:59 Pain: Complains of pain in back Pain currently is 8 out of 10 on a pain scale. Quality rs5 of pain is described as aching, Is continuous. GI: Reports nausea. 10:00 Reassessment: Pt states "the nausea medicine and pain medicine you guys gave me isn't rs5 working" provider notified. Vital Signs: 08:53 BP 185 / 95; Pulse 82; Resp 19 S; Temp 98.2(O); Pulse Ox 97% on R/A; Weight 72.57 kg kc6 (R); Height 5 ft. 4 in. (R); Pain 10/10; 10:08 BP 167 / 97; Pulse 77; Resp 17; Pulse Ox 99% on R/A; rs5 08:53 Body Mass Index 27.46 (72.57 kg, 162.56 cm) kc6 08:53 Pain Scale: Adult kc6 ED Course: 08:52 Patient arrived in ED. kc6 08:55 Triage completed. kc6 08:55 Arm band placed on. kc6 08:59 Patient has correct armband on for positive identification. Bed in low position. Call kc6 light in reach. Side rails up X2. Pulse ox on. NIBP on. Pillow given. 09:00 Maintain EMS IV. Dressing intact. Good blood return noted. Site clean \\T\\ dry. Gauge \\T\\ ashlee 6 site: 20G RFA. Flushed right forearm. 09:02 Ross Calabrese DO is Attending Physician. ms3 09:12 Jessica Paul, RN is Primary Nurse. kc6 10:08 No provider procedures requiring assistance completed. rs5 10:13 CT Abd/Pelvis - IV Contrast Only In Process Unspecified. EDMS 12:13 called Kimi the household refrigerator mechanic at [facility] gave her patient information/ eb She will contact the transfer center. 12:18 patient declined at [facility]/ [facility] eb 12:58 initiated a transfer with Venice Pascual from the [facility] [place]. eb 14:19 connected the hospitalist from [facility] with Dr. Calabrese for eb patient transfer consultation. 14:[address] Weathers again with Dr. Calabrese for patient transfer consultation. eb Administered Medications: 09:43 Drug: NS 0.9% IV 1000 ml IV at 1 bolus Per protocol; 1000 mL bolus Route: IV; Rate: 1 zl bolus; Site: right forearm; 10:00 Follow up: Response: No adverse reaction rs5 09:43 Drug: Famotidine IVP 20 mg IVP once; dilute with 10 mL 0.9% NaCl; give over 2 minutes zl Route: IVP; Site: right forearm; 10:00 Follow up: Response: No adverse reaction rs5 09:43 Drug: TORadol - Ketorolac IVP 15 mg IVP once Route: IVP; Site: right forearm; zl 10:00 Follow up: Response: No adverse reaction rs5 09:43 Drug: Ondansetron IVP 4 mg IVP once; over 2 minutes Route: IVP; Site: right forearm; zl 10:00 Follow up: Response: No adverse reaction rs5 11:20 Drug: Piperacillin-Tazobactam IVPB 3.375 grams IVPB once over 60 mins; (mix in NS 100 rs5 mL) Route: IVPB; Infused Over: 60 mins; Site: right antecubital; 11:20 Drug: morphine IVP or IV 4 mg IVP once over 4 mins Route: IVP; Infused Over: 4 mins; rs5 Site: right antecubital; 11:20 Drug: Promethazine IM 25 mg IM once Route: IM; Site: left deltoid; rs5 Medication: 10:08 VIS not applicable for this client. rs5 Outcome: 11:07 ER care complete, transfer ordered by MD. shahid 18:19 Patient left the ED. rs5 Signatures: Dispatcher [employer] EDMS Venice Eden Marcus, DO DO ms3 Jessica Paul RN RN kc6 Dave Geiger RN RN rs5 Daren Maki RN RN zl Corrections: (The following items were deleted from the chart) 10:06 08:58 Reassessment: please see triage kc6 rs5 10:08 10:00 Reassessment: Pt states "the nausea medicine and pain medicine you guys gave me rs5 isn't working". rs5
--- NOTE | 2024-05-21 11:07 | EDPHYS ---
Physician Documentation [facility] Name: Melanie Salgado Age: 48 yrs Sex: Female : 1975 Arrival Date: 05/21/2024 Time: 08:52 Bed 14 Private MD: ED Physician Ross Calabrese HPI: 05/21 09:48 This 48 yrs old Female presents to ER via EMS with complaints of Abdominal Pain, ms3 Nausea/Vomiting/Diarrhea. 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 Patient states her discomfort is rated a 10/10. She denies any alleviating or inciting factors. 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 - Infectious Disease History:: Denies. - Social history:: Smoking status: Reported history of juuling and/or vaping. ROS: 09:48 Constitutional: Negative for fever, and chills. Neck: Negative for injury, pain, and ms3 swelling, Cardiovascular: Negative for chest pain, and palpitations. Respiratory: Negative for shortness of breath, cough, wheezing, and pleuritic chest pain, MS/Extremity: Negative for injury and deformity, Skin: Negative for injury, rash, and discoloration, 09:48 Abdomen/GI: Positive for abdominal pain, Exam: 09:48 Constitutional: This is a well developed, well nourished patient who is awake, alert, ms3 and in no acute distress. Head/Face: Normocephalic, atraumatic. Chest/axilla: Normal chest wall appearance and motion. Nontender with no deformity. Cardiovascular: Regular rate and rhythm with a normal S1 and S2. No gallops, murmurs, or rubs. Normal PMI, no JVD. No pulse deficits. Respiratory: Lungs have equal breath sounds bilaterally, clear to auscultation and percussion. No rales, rhonchi or wheezes noted. No increased work of breathing, no retractions or nasal flaring. Skin: Warm, dry with normal turgor. Normal color with no rashes, no lesions, and no evidence of cellulitis. MS/ Extremity: Pulses equal, no cyanosis. Neurovascular intact. Full, normal range of motion. 09:48 Abdomen/GI: Inspection: abdomen appears normal, Bowel sounds: normal, Palpation: moderate abdominal tenderness, in all quadrants, Vital Signs: 08:53 BP 185 / 95; Pulse 82; Resp 19 S; Temp 98.2(O); Pulse Ox 97% on R/A; Weight 72.57 kg kc6 (R); Height 5 ft. 4 in. (R); Pain 10/10; 10:08 BP 167 / 97; Pulse 77; Resp 17; Pulse Ox 99% on R/A; rs5 08:53 Body Mass Index 27.46 (72.57 kg, 162.56 cm) kc6 08:53 Pain Scale: Adult kc6 MDM: 09:28 Patient medically screened. ms3 09:48 Differential diagnosis: Nonspecific abd pain, pancreatitis, appendicitis, ms3 diverticulitis. 14:21 Data reviewed: vital signs, nurses notes, and as a result, I will Will transfer ms3 patient.. Consideration of Admission/Observation Patient transferred. Management of patient was discussed with the following: Hospitalist: Dr Ponce. Talent Associate: General Surgery. I considered the following discharge prescriptions or medication management in the emergency department Medications were administered in the Emergency Department. See MAR. Historians other than the Patient: EMS: [facility]. Care significantly affected by the following chronic conditions: Hypertension. Counseling: I had a detailed discussion with the patient and/or guardian regarding the historical points, exam findings, and any diagnostic results supporting the discharge/admit diagnosis, lab results, radiology results, the need to transfer to another facility, No OR available at [facility]. ED course: Discussed necessity of transfer to consultation with the patient. Patient understands agrees with plan. All questions were answered.. 05/21 09:29 Order name: CBC with Diff; Complete Time: 10:24 ms3 05/21 09:29 Order name: CMP; Complete Time: 10:24 ms3 05/21 09:29 Order name: Lipase; Complete Time: 10:24 ms3 05/21 09:29 Order name: CT Abd/Pelvis - IV Contrast Only; Complete Time: 10:58 ms3 05/21 09:29 Order name: IV Saline Lock; Complete Time: 09:30 ms3 05/21 09:29 Order name: Labs collected and sent; Complete Time: 09:40 ms3 Administered Medications: 09:43 Drug: NS 0.9% IV 1000 ml IV at 1 bolus Per protocol; 1000 mL bolus Route: IV; Rate: 1 zl bolus; Site: right forearm; 10:00 Follow up: Response: No adverse reaction rs5 09:43 Drug: Famotidine IVP 20 mg IVP once; dilute with 10 mL 0.9% NaCl; give over 2 minutes zl Route: IVP; Site: right forearm; 10:00 Follow up: Response: No adverse reaction rs5 09:43 Drug: TORadol - Ketorolac IVP 15 mg IVP once Route: IVP; Site: right forearm; zl 10:00 Follow up: Response: No adverse reaction rs5 09:43 Drug: Ondansetron IVP 4 mg IVP once; over 2 minutes Route: IVP; Site: right forearm; zl 10:00 Follow up: Response: No adverse reaction rs5 11:20 Drug: Piperacillin-Tazobactam IVPB 3.375 grams IVPB once over 60 mins; (mix in NS 100 rs5 mL) Route: IVPB; Infused Over: 60 mins; Site: right antecubital; 11:20 Drug: morphine IVP or IV 4 mg IVP once over 4 mins Route: IVP; Infused Over: 4 mins; rs5 Site: right antecubital; 11:20 Drug: Promethazine IM 25 mg IM once Route: IM; Site: left deltoid; rs5 Disposition Summary: 05/21/24 11:07 Transfer Ordered Notes: [facility] Reason: Higher level of care ms3 Condition: Stable ms3 Problem: new ms3 Symptoms: are unchanged ms3 Accepting Physician: (05/21/24 18:19) rs5 Diagnosis - Diverticulitis of large intestine with perforation and abscess without bleeding ms3 Forms: - Medication Reconciliation Form ms3 - SBAR form ms3 Signatures: Dispatcher [employer] EDMS Ross Calabrese DO DO ms3 Jessica Paul RN RN kc6 Dave Geiger, RN RN rs5 Daren Maki RN RN zl Corrections: (The following items were deleted from the chart) 18:19 11:07 Dr shahid rs5
[2024-05-21] MEDS ORDERED: MORPHINE 4 MG/ML SYR ONE ×3 (11:21→17:02)
[2024-05-21] MEDS ORDERED: NA CHLORIDE 0.9% 100 ML ONE (11:21)
[2024-05-21] MEDS ORDERED: PIPERACIL/TAZO 3.375 GM VIAL IV ONE (11:21)
[2024-05-21] MEDS ORDERED: PROMETHAZINE INJ 25 MG/ML AMP ONE (11:21)
[2024-05-21 21:52] VITALS: TEMP 98.2
[2024-05-21 22:14] VITALS: BP 167/97; O2SAT 99
== END 2024-05-21 18:19 | disposition short-term general hospital (02) ==
LOC: ER 08:52
DX: K57.32 Diverticulitis of large intestine without perforation or abscess without bleeding (principal); R11.2 Nausea with vomiting, unspecified; R10.9 Unspecified abdominal pain; K21.9 Gastro-esophageal reflux disease without esophagitis; I10 Essential (primary) hypertension; F17.290 Nicotine dependence, other tobacco product, uncomplicated; K86.1 Other chronic pancreatitis; Z88.1 Allergy status to other antibiotic agents
CPT/HCPCS: 36415; 74177; 80053; 83690; 85025; 96372; 99284; J2405; J2543; J2550; J7030; Q9967

== ENCOUNTER 2024-10-16 22:28 | Emergency (ER) | payer SELFPAY ==
--- OUTSIDE RECORDS SUMMARY | 2024-10-16 22:42 | XMS REPORT | Continuity of Care Document ---
Author Name Unknown Address [address] [facility] [address] [place] [address] [facility] Address [address] [facility] [address] [place] [address] Care Team Providers Care Measurement Analyst Name Role Phone PRAVIN ROBERSON Primary Care Physician PRAVIN Reyes Attending Clinician Unavailab PRAVIN Campos Attending Clinician Unavailab POPEYE Lynn Attending Clinician Unavail able POPEYE MARQUEZ Attending Clinician Unavail able Popeye Marquez MD Attending Clinician [phone] ISRA CHENG Attending Clinician Unavailab ISRA López Attending Clinician Unavailab Pravin Campos MD Attending Clinician [phone] Isra Cheng NP Attending Clinician [phone] ANDREW HENDRICKS Attending Clinician Unavailable ANDREW HENDRICKS Attending Clinician Unavailable Andrew Hendricks MD Attending Clinician [phone] RUTH WATTS Attending Clinician Unavailable RUTH WATTS Attending Clinician Unavailable Sarah Saavedra Attending Clinician Unavailable JIMBO ROMERO Attending Clinician Unavailhumza JIMBO Rosas Attending Clinician Unavailabl ISABELL Barajas Attending Clinician Unavailable Sandro YIP, Jeanna Attending Clinician +[phone] Isabell Lizarraga MD Attending Clinician +[phone] JESSICA PIEDRA Attending Clinician Unavailable Daniel LOVETT, Nighat Attending Clinician Unavailable RUBIA SALEEM Attending Clinician Unavailhumza ramy Valentin MD, Benedicto Attending Clinician [phone] Beny PITTS, Rubia Staples Attending Clinician [phone] Brittney PITTS, Jessica Attending Clinician + [phone] NINFA PEARL Attending Clinician Unavailab Ninfa Aguilera DO Attending Clinician [phone] Maynor LOVETT, Jenn Aranda Attending Clinician Unav ailable TIM VOSS Attending Clinician Unavailabl Martha Foster Attending Clinician [phone] Karina HAZARDOUS MATERIALS WASTE TECHNICIAN, Rehan Soares Attending Clinician [phone] Arnoldo PITTS, Devin Attending Clinician [phone] GORGE MONTES Attending Clinician Unavailhumza Cooper Rider MD Attending Clinician [phone] Maddy Coburn DO Attending Clinician [phone] Ridge HAZARDOUS MATERIALS WASTE TECHNICIAN, Deejay Attending Clinician [phone] Carlyle PITTS, Mayank Petty Attending Clinician [phone] Louis Duval MD Attending Clinician [phone] Paris Perez MD Attending Clinician +[phone] Leona YIP, Evelin Holloway Attending Clinician +[phone] Tino Oneil DO Attending Clinician + [phone] KIYA FINLEY Attending Clinician Unav ailable Kiya Harvey Attending Clinician Judith Gracia Attending Clinician [phone] Sonam PITTS, Linnea White Attending Clini reshma Lee RN, Regine Cunha Attending Clinician [phone] Deuce LOVETT, Eliane Attending Clinician Unavailab shanna Delatorre MD, Antonina Attending Clinician [phone] Sirisha PITTS, Piotr Godfrey Attending Clinician [phone] Meaghan Pandey Attending Clinician Unavailable PARIS PEREZ Attending Clinician ANTONINA Hopkins Attending Clinician Unavailable Lorena PITTS, Randall Nava Attending Clinician Unknown, Attending Attending Clinician UnavailOPHELIA Murguia Attending Clinician Brittany Wiley MD, Ophelia Rubi Attending Clinician + [phone] [facility] Main Attending Clinician Unavailhumza Su MD, Joselin Dixon Attending Clinician [phone] POPEYE MARQUEZ Admitting Clinician Unavail able JIMBO ROMERO Admitting Clinician UnavailRUTH Fuentes Admitting Clinician Unavailable Evan Ponce Admitting Clinician Unavailable ISABELL LIZARRAGA Admitting Clinician Unavailable Elham PITTS, Isabell Admitting Clinician [phone] RUBIA SALEEM Admitting Clinician UnavailRubia Sunshine MD Admitting Clinician [phone] NINFA PEARL Admitting Clinician Unavailab Devin Richey MD Admitting Clinician [phone] Maddy Coburn DO Admitting Clinician [phone] Louis Duval MD Admitting Clinician [phone] Sonam PITTS, Linnea White Admitting Clini reshma Antonina Delatorre MD Admitting Clinician [phone] ANTONINA DELATORRE Admitting Clinician Unavailable DEVIN MCLAUGHLIN Admitting Clinician Unavailable Claudine PITTS, Ophelia Rubi Admitting Clinician + [phone] Payers Payer Name Policy Type Policy Number Effective Date Expirati on Date Source MEDICAID PENDING PENDING 2021 00:00:00 ADRIANNA FRIEDMAN [id number] 2023 00:00:00 2024 00:00:00 Problems Condition Name Condition Details Condition Category Status Onset Date Resolution Date Last Treatment Date Treating Clinician Comments Source Generalize d abdominal pain Generalize d abdominal pain Disease Active 3-09 00:00: 00 [facility] Pancreatit is, unspecifie d pancreatit is type Pancreatit is, unspecifie d pancreatit is type Disease Active 2022-11 00:00: 00 [facility] Obesity (BMI 30-39.9) Obesity (BMI 30-39.9) Disease Active 2022-11 00:00: 00 [facility] Abdominal pain Abdominal pain Disease Active 6 00:00: 00 [facility] Colitis Colitis Disease Active 4-25 00:00: 00 [facility] Nausea & vomiting Nausea & vomiting Disease Active 3 00:00: 00 [facility] Current mild episode of major depressive disorder, unspecifie d whether recurrent Current mild episode of major depressive disorder, unspecifie d whether recurrent Disease Active 11-27 00:00: 00 [facility] Hypokalemi a Hypokalemi a Disease Active 1 00:00: 00 [facility] Colitis due to Clostridiu m difficile Colitis due to Clostridiu m difficile Disease Active 11-27 00:00: 00 [facility] Intractabl e abdominal pain Intractabl e abdominal pain Disease Active 2019-11 2 00:00: 00 [facility] Alcohol-in duced chronic pancreatit is Alcohol-in duced chronic pancreatit is Disease Active 2019-11 00:00: 00 [facility] Screening for malignant neoplasm of the cervix Screening for malignant neoplasm of the cervix Disease Active 2019-11 00:00: 00 [facility] Need for diphtheria -tetanus-p ertussis (Tdap) vaccine Need for diphtheria -tetanus-p ertussis (Tdap) vaccine Disease Active 2019-11- 00:00: 00 [facility] Need for immunizati on against influenza Need for immunizati on against influenza Disease Active 2019-11 00:00: 00 [facility] Benign tumor of adrenal gland, 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, unspecifie d laterality Disease Active 7-14 00:00: 00 [facility] 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.1 Mild protein-ca hunter malnutriti on Disease Active 709 00:00: 00 [facility] 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.1 Mild protein-ca hunter malnutriti on Disease Active 05-21 00:00: 00 [facility] Chronic generalize d pain Chronic generalize d pain Disease Active 04-23 00:00: 00 [facility] Does not have health insurance Does not have health insurance Disease Active 04-23 00:00: 00 [facility] Does not have health insurance Does not have health insurance Disease Active 04-23 00:00: 00 [facility] Intractabl e vomiting Intractabl e vomiting Disease Active 04-05 00:00: 00 [facility] Alcohol-in duced acute pancreatit is, unspecifie d complicati on status Alcohol-in duced acute pancreatit is, unspecifie d complicati on status Disease Active 03-13 00:00: 00 [facility] Alcoholism Alcoholism Disease Active 03-13 00:00: 00 [facility] Generalize d abdominal discomfort Generalize d abdominal discomfort Disease Active 03-13 00:00: 00 [facility] Essential hypertensi on Essential hypertensi on Disease Active 03-13 00:00: 00 [facility] Current severe episode of major depressive disorder without psychotic features, unspecifie d whether recurrent Current severe episode of major depressive disorder without psychotic features, unspecifie d whether recurrent Disease Active 03-13 00:00: 00 [facility] Anxiety Anxiety Disease Active 5- 00:00: 00 [facility] Encounter for screening mammogram for malignant neoplasm of breast Encounter for screening mammogram for malignant neoplasm of breast Disease Active 5- 00:00: 00 [facility] Hospital discharge follow-up Hospital discharge follow-up Disease Active 5- 00:00: 00 [facility] Nicotine dependence , cigarettes , uncomplica carrie Nicotine dependence , cigarettes , uncomplica carrie Disease Active 5- 00:00: 00 [facility] Nicotine dependence , cigarettes , uncomplica carrie Nicotine dependence , cigarettes , uncomplica carrie Disease Active 5 00:00: 00 [facility] Tobacco dependence Tobacco dependence Disease Active 5 00:00: [address] [facility] [address] CT of the abdomen Abnormal CT of the abdomen Disease Active 03-04 00:00: 00 [facility] Vomiting, intractabi lity of vomiting not specified, presence of nausea not specified, unspecifie d vomiting type Vomiting, intractabi lity of vomiting not specified, presence of nausea not specified, unspecifie d vomiting type Disease Active 4-20 00:00: 00 [facility] Diverticul itis of intestine with abscess Problem Active [facility] Allergies, Adverse Reactions, Alerts Allergy Name Allergy Type Status Severity Reaction(s) Onset Date Inactive Date Treating Clinician Comments Source ceftriax one Allergy to substanc e Active Unknown 05-21 20:29: 05 [facility] ciproflo xacin Allergy to substanc e Active Unknown 05-21 20:29: 05 [facility] ciproflo xacin DA Active U Anaphylaxis 05-21 00:00: 00 [facility] ceftriax one DA Active U Anaphylaxis 05-21 00:00: 00 [facility]UG INGREDI Active Anaphylaxis 3-09 00:00: 00 [facility] Clindamy red Propensi ty to adverse reaction s Active Anaphylaxis 01-19 00:00: 00 [facility] Ceftriax one Sodium Propensi ty to adverse reaction s Active Anaphylaxis 03-04 00:00: 00 [facility] CEFTRIAX ONE SODIUM DRUG INGREDI Active Anaphylaxis 03-04 00:00: 00 [facility] NO KNOWN ALLERGIE S Drug Class Active [facility] Family History Family Member Diagnosis Comments Start Date Stop Date Sourc e Mother Family Breast Cancer?No [facility] Mother Family Coronary Alayna ry Disease?No [facility] Mother Family Congenital Heart Disease?No [facility] Family Myocardial Infarction?No [facility] Mother Family Stroke?No [facility] Mother Family Diabetes?Yes [facility] Mother Family Colorectal Cancer?No [facility] Social History Social Habit Start Date Stop Date Quantity Comments Source History of tobacco use [facility] Exposure to SARS-CoV-2 (event) Not sure [facility] Alcoholic beverage intake 2024-09-19 00:00:00 2024-09-19 00:00:00 Ex-drinker (finding) [facility] Sex 2024-05-26 14:01:00 2024-05-26 14:01:00 Female (finding) [facility] Cigarettes smoked current (pack per day) - Reported 2024-01-20 00:00:00 2024-01-20 00:00:00 [facility] Cigarette pack-years 2024-01-20 00:00:00 2024-01-20 00:00:00 [facility] Tobacco use and exposure 2024-01-20 00:00:00 2024-01-20 00:00:00 Smokeless tobacco non-user [facility] Alcohol intake 2024-01-20 00:00:00 2024-01-20 00:00:00 Ex-drinker (finding) [facility] History SDOH Financial 2020-09-29 00:00:00 2020-09-29 00:00:[address] [facility] History SDOH Food Worry 2020-09-29 00:00:00 2020-09-29 00:00:[address] [facility] History SDOH Food Scarcity 2020-09-29 00:00:00 2020-09-29 00:00:[address] [facility] History SDOH Transport Med 2020-09-29 00:00:00 2020-09-29 00:00:[address] [facility] History SDOH Transport Non-Med 2020-09-29 00:00:00 2020-09-29 00:00:[address] [facility] Education 2020-09-28 00:00:00 2020-09-28 00:00:[address] [facility] Alcohol Comment 2020-03-05 00:00:00 2020-03-05 00:00:[address] [facility] History of Social function 2020-03-05 00:00:00 2020-03-05 00:00:00 [facility] Sex Assigned At 1975 00:00:00 1975 00:00:00 Female [facility] Smoking Status Start Date Stop Date Source Unknown [facility] Ex-smoker 2024-01-20 00:00:00 2024-01-20 00:00:00 [facility] Smokes tobacco daily 2023-11-04 00:00:00 [facility] Medications Ordered Medication Name Filled Medication Name Start Date Stop Date Current Medication? Ordering Clinician Indication Dosage Frequency Signature (SIG) Comments Components Source amoxicillin -clavulanat e (AUGMENTIN) 875-125 mg per tablet 1 tablet 2023-11 20:30: 00 10-09 19:40 :00 No 1{tbl} 1 tablet, Oral, ONCE NOW, 1 dose, On Mon10/09/24 at 1430, Routine, Reason for Anti-Infec tive: Documented Infection, Documented Infection Site: Abdominal, Duration of Therapy: Once (ED) [facility] losartan (COZAAR) tablet 50 mg 2023-11 20:15: 00 10-09 19:38 :00 No 50mg 50 mg, Oral, ONCE, 1 dose, On Mon10/09/24 at 1415, Routine [facility] iopamidol (ISOVUE 370-500 mL) injection 84 mL 2023-11 19:45: 00 10-09 18:45 :00 No [id number] 84mL 84 mL, Intravenou s, ONCE, 1 dose, On Mon10/09/24 at 1345, Routine [facility] labetaloL (NORMODYNE) 5 mg/mL injection 10 mg 2023-11 18:15: 00 10-09 18:36 :00 No 10mg 10 mg, Slow IV Push, ONCE, 1 dose, On Mon10/09/24 at 1215, [facility] cloNIDine (CATAPRES) tablet 0.1 mg 2023-11 18:15: 00 10-09 18:35 :00 No .1mg 0.1 mg, Oral, ONCE, 1 dose, On Mon10/09/24 at 1215, STAT [facility] acetaminoph en (TYLENOL) tablet 650 mg 2023-11 18:15: 00 10-09 18:35 :00 No 650mg 650 mg, Oral, ONCE, 1 dose, On Mon10/09/24 at 1215, [facility] amoxicillin -clavulanat e 875-125 mg per tablet 2023-11 00:00: 00 10-09 00:00 :00 No [id number] 1{tbl} Take 1 tablet by mouth every 12 (twelve) hours for 7 days. [facility] FLUoxetine 20 mg tablet 2023-11 13:19: 39 Yes 20mg Take 1 tablet by mouth in the morning and 1 tablet in the evening. [facility] losartan 50 mg tablet 2023-11 00:00: 00 Yes [id number] 50mg Take 1 tablet by mouth in the morning. [facility] metoprolol tartrate 50 mg tablet 2023-11 00:00: 00 Yes [id number] 50mg Take 1 tablet by mouth in the morning and 1 tablet in the evening. Take 2 tablets by mouth once daily [facility] amoxicillin -clavulanat e (AUGMENTIN) 875-125 mg per tablet 2023-11 00:00: 00 09-27 05:59 :00 Yes [id number] 1{tbl} Take 1 tablet by mouth in the morning and 1 tablet in the evening. Do all this for 7 days. [facility] HYDROcodone -acetaminop hen (NORCO 5) tablet 2 tablet 2023-11 02:30: 00 09-14 02:29 :00 No 2{tbl} 2 tablet, Oral, ONCE, 1 dose, [facility] Mon09/13/24 at 2130[facility] 30 mg 2023-11 02:30: 00 09-14 01:44 :00 No 30mg 30 mg, Slow IV Push, ONCE, 1 dose, On Mon09/13/24 at 2130, [facility] labetaloL (NORMODYNE) 5 mg/mL injection 20 mg 2023-11 01:45: 00 09-14 01:45 :00 No 20mg 20 mg, Slow IV Push, ONCE, 1 dose, On Mon09/13/24 at 2045, [facility] LORazepam (ATIVAN) injection 1 mg 2023-11 01:45: 00 09-14 01:42 :00 No 1mg 1 mg, Slow IV Push, ONCE, 1 dose, On Mon09/13/24 at 2045, STAT [facility] doxycycline hyclate 100 mg capsule 2023-11 00:00: 00 Yes [id number] 100mg Take 1 capsule by mouth in the morning and 1 capsule in the evening. [facility] HYDROcodone -acetaminop hen 5-325 mg tablet 2023-11 00:00: 00 09-21 05:59 :00 Yes [id number] 1{tbl} Take 1-2 tablets by mouth every 6 (six) hours as needed for Pain (scale 4-6) for up to 7 days. Indication s: acute pain [facility] ibuprofen 600 mg tablet 2023-11 00:00: 00 09-19 05:59 :00 Yes [id number] 600mg Take 1 tablet by mouth every 6 (six) hours as needed for Pain (scale 4-6) for up to 5 days. [facility] LORazepam (ATIVAN) 1 mg tablet 2023-11 00:00: 00 09-17 05:59 :00 Yes [id number] 1mg Take 1 tablet by mouth 3 (three) times daily as needed for Anxiety or Agitation for up to 3 days. [facility] FENTanyl PF (SUBLIMAZE (PF)) injection 50 mcg 05-27 04:45: 00 05-27 03:40 :00 No 50ug 50 mcg, Slow IV Push, ONCE, 1 dose, On Mon05/26/24 at 2345, Routine [facility] ketorolac (TORADOL) injection 30 mg 05-27 02:30: 00 05-27 01:47 :00 No 30mg 30 mg, Slow IV Push, ONCE, 1 dose, On Mon05/26/24 at 2130, Routine [facility] Nifedipine (Procardia Xl) 30 MG Er.Tab 05-26 00:00: [address] [facility] Amoxicillin /Potassium Clav (Augmentin) 875 MG Tab 05-26 00:00: 00 No 875MG Every [address] [facility] traMADoL (ULTRAM) 50 mg tablet 05-26 00:00: 00 09-19 00:00 :00 No [id number] 50mg Take 1 tablet by mouth every 6 (six) hours as needed for Pain (scale 7-10). Indication s: acute pain [facility] docusate sodium 250 mg capsule 05-26 00:00: 00 09-19 00:00 :00 No [id number] 250mg Take 1 capsule by mouth 2 (two) times daily as needed for Constipati on. [facility] Fluoxetine Hcl 20 MG Tablet 05-21 00:00: 00 No 20MG Twice Daily [facility] Hydrocodone /Acetaminop hen (Hydrocodon e-Acetamin 7.5-300) 1 EACH Tablet 05-21 00:00: [address] [facility] Promethazin e (Phenergan) 25 MG Tab 05-21 00:00: 00 No 25MG Every 6 Hours as needed for Nausea/Vom iting [facility] Buspirone Hcl 10 MG Tablet 05-21 00:00: 00 No 20MG Twice Daily [facility] Dicyclomine (Bentyl) 20 MG Tab 05-21 00:00: 00 No 20MG Four Times Daily as needed for abdominal cramps [facility] Metoprolol Succinate (Toprol Xl) 50 MG Tab.Er.24h 05-21 00:00: [address] [facility] Omeprazole 20 MG Tablet. 05-21 00:00: 00 No 40MG Twice Daily [facility] Trazodone Hcl 100 MG Tablet 05-21 00:00: 00 No 100MG Bedtime as needed for Insomnia [facility] iopamidol (ISOVUE 370-500 mL) injection 85 mL 05-05 20:30: 00 05-05 20:45 :00 No [id number] 85mL 85 mL, Intravenou s, ONCE, 1 dose, On 05/05/24 at 1545, Routine [facility] NaCl 0.9% (NS) bolus infusion 1,000 mL 05-05 20:15: 00 05-05 21:54 :00 No 1000mL at 999 mL/hr, 1,000 mL, IV Infusion, ONCE, 1 dose, On Mon05/05/24 at 1515, [facility] famotidine (PEPCID (PF)) injection 20 mg 05-05 19:30: 00 05-05 20:04 :00 No 20mg 20 mg, Slow IV Push, ONCE, 1 dose, On 05/05/24 at 1430, [facility] proMETHazin e (PHENERGAN) 12.5 mg in NS 50 mL IV piggyback (CNR) 05-05 19:30: 00 05-05 20:21 :00 No 12.5mg 12.5 mg, IV Piggyback, at 200 mL/hr Administer over 15 Minutes, ONCE, 1 dose, On Mon05/05/24 at 1430, [facility] morpHINE (4 mg/mL) injection 4 mg 05-05 19:30: 00 05-05 20:04 :00 No 4mg 4 mg, Slow IV Push, ONCE, 1 dose, On Mon05/05/24 at 1430, STAT [facility] proMETHazin e 25 mg tablet 05-05 00:00: 00 09-19 00:00 :00 No [id number] 25mg Take 1 tablet by mouth every 6 (six) hours as needed for Nausea and Vomiting (N/V). [facility] dicyclomine 20 mg tablet 05-05 00:00: 00 09-19 00:00 :00 No [id number] 20mg Take 1 tablet by mouth every 6 (six) hours as needed for Abdominal pain. [facility] traMADoL 50 mg tablet 05-05 00:00: 00 09-19 00:00 :00 No [id number] 50mg Take 1 tablet by mouth every 6 (six) hours as needed (pain). Indication s: acute pain [facility] amoxicillin -clavulanat e (AUGMENTIN) 875-125 mg per tablet 1 tablet 13 01:00: 00 01-30 00:59 :00 No 1{tbl} 1 tablet, Oral, Q12H, 14 doses, First dose on Mon01/23/24 at 2000, Last dose on Mon01/30/24 at 0800, Routine
Reason for Anti-Infec tive: Documented Infection< br>Documen carrie Infection Site: Abdominal< br>Duratio n of Therapy: 7 days [facility] busPIRone 10 mg tablet 12 18:27: 31 Yes 20mg Take 2 tablets by mouth in the morning and 2 tablets in the evening. Take 2 tablets by mouth twice a day [facility] Omeprazole 20 mg tablet 01-22 18:27: 31 Yes 20mg Take 1 tablet by mouth in the morning. [facility] traZODone 50 mg tablet 01-22 18:27: 31 Yes 50mg Take 1 tablet by mouth at bedtime as needed for Insomnia. [facility] aspirin 81 mg chewable tablet 01-22 18:27: 31 Yes 81mg Take 1 tablet by mouth in the morning. [facility] ketorolac 10 mg tablet 01-22 18:27: 31 09-19 00:00 :00 No 10mg Take 1 tablet by mouth every 8 (eight) hours. [facility] metoprolol tartrate 50 mg tablet 01-22 18:27: 09-19 00:00 :00 No 100mg Take 2 tablets by mouth in the morning. Take 2 tablets by mouth once daily [facility] amoxicillin 500 mg capsule 01-22 18:27: 29 01-22 00:00 :00 No 500mg Take 1 capsule by mouth every 8 (eight) hours. For one week [facility] metoprolol succinate XL 50 mg 24 hr tablet 01-22 18:27: 29 01-19 00:00 :00 No 50mg Take 1 tablet by mouth in the morning. Take 2 tablets by mouth once daily [facility] metoprolol succinate XL 25 mg 24 hr tablet 01-22 15:49: 49 01-22 00:00 :00 No 25mg Take 1 tablet by mouth in the morning. [facility] amLODIPine 10 mg tablet 01-22 15:48: 47 01-22 00:00 :00 No 10mg Take 10 mg by mouth daily. [facility] polyethylen e glycol 3350 powder 17 g 01-22 01:00: 00 Yes 17g 17 g, Oral, BID, First dose on Mon01/22/24 at 2000, Until Discontinu ed, Routine [facility] amoxicillin 500 mg capsule 01-22 00:00: 00 Yes [id number] 500mg Take 1 capsule by mouth every 8 (eight) hours. For one week [facility] benzonatate 100 mg capsule 01-22 00:00: 00 Yes [id number] 100mg Take 1 capsule by mouth every 8 (eight) hours as needed for Cough. [facility] ondansetron 4 mg tablet 01-22 00:00: 00 09-19 00:00 :00 No [id number] 4mg Take 1 tablet by mouth every 8 (eight) hours as needed for Nausea and Vomiting (N/V). [facility] acetaminoph en-codeine 300-30 mg tablet 01-22 00:00: 00 01-30 04:59 :00 No [id number] 1{tbl} Take 1 tablet by mouth every 6 (six) hours as needed for Pain (scale 4-6) for up to 7 days. Indication s: acute pain [facility] morpHINE (2 mg/mL) injection 2 mg 01-21 00:38: 30 Yes 2mg 2 mg, Slow IV Push, Q4HPRN, Starting on Mon01/21/24 at 1938, Until Discontinu ed, Routine, Pain (scale 7-10) [facility] morpHINE (2 mg/mL) injection 2 mg 01-20 15:33: 37 01-21 00:21 :08 No 2mg 2 mg, Slow IV Push, Q4HPRN, Starting on Mon01/21/24 at 1033, Until 01/21/24 at 1921, Routine, Pain (scale 7-10) [facility] benzonatate (TESSALON PERLES) capsule 100 mg 01-20 15:33: 21 Yes 100mg 100 mg, Oral, Q8HPRN, Starting on 01/21/24 at 1033, Until Discontinu ed, Routine, Cough [facility] codeine-gua ifenesin (ROBITUSSIN AC) 10-100 mg/5 mL oral solution 10 mL 01-20 14:00: 57 Yes 10mL 10 mL, Oral, Q6HPRN, Starting on 01/21/24 at 0900, Until Discontinu ed, Routine, Cough [facility] FLUoxetine (PROZAC) capsule 40 mg 01-20 14:00: 00 Yes 40mg 40 mg, Oral, DAILY, First dose on 01/21/24 at 0900, Until Discontinu ed, [facility] metoprol[facility] succinate XL (TOPROL XL) tablet 25 mg 01-20 14:00: 00 Yes 25mg 25 mg, Oral, DAILY, First dose on 01/21/24 at 0900, Until Discontinu ed, Routine [facility] amLODIPine (NORVASC) tablet 10 mg 01-20 14:00: 00 Yes 10mg 10 mg, Oral, DAILY, First dose on 01/21/24 at 0900, Until Discontinu ed, Routine [facility] enoxaparin (LOVENOX) injection 40 mg 01-20 14:00: 00 Yes 40mg 40 mg, Subcutaneo us, DAILY, First dose on 01/21/24 at 0900, Until Discontinu ed, Routine [facility] busPIRone (BUSPAR) tablet 10 mg 01-20 13:00: 00 Yes 10mg 10 mg, Oral, BID, First dose on 01/21/24 at 0800, Until Discontinu ed, Routine [facility] pantoprazol e (PROTONIX) EC tablet 40 mg 01-20 11:00: 00 Yes 40mg 40 mg, Oral, QAM-0600, First dose on 01/21/24 at 0600, Until Discontinu ed, [facility] piperacilli n-tazobacta m (ZOSYN) 3.375 g in NaCl 0.9% (NS) 100 mL MINI-BAG 01-20 08:00: 00 01-22 18:00 :00 No 3.375g 3.375 g, IV Piggyback, Q8H ABX, 21 doses, First dose on 01/21/24 at 0300, Last dose on 01/27/24 at 1900, Administer over 4 Hours, 100 mL
Reas on for Anti-Infec tive: Documented Infection& lt;br>Docu mented Infection Site: Abdominal< br>Duratio n of Therapy: [address] [facility] NaCl 0.9% (NS) IV infusion 1,000 mL 01-20 07:15: 00 Yes 1000mL at 100 mL/hr, IV Infusion, CONTINUOUS , Starting on [place] 01/21/24 at 0115, Until Discontinu ed, Routine [facility] diazePAM (VALIUM) tablet 5 mg 01-20 02:14: 45 Yes 5mg 5 mg, Oral, TIDPRN, Starting on [facility] 01/20/24 at 2013, Until Discontinu ed, Routine, Agitation, Anxiety [facility] morpHINE (2 mg/mL) injection 5 mg 01-20 02:14: 15 01-20 15:34 :06 No 5mg 5 mg, Slow IV Push, Q4HPRN, Starting on [facility] 01/20/24 at 2013, Until [place] 01/21/24 at 1034, Routine, Pain (scale 7-10) [facility] HYDROcodone -acetaminop hen (NORCO) 10-325 mg tablet 1 tablet 01-20 02:14: 07 Yes 1{tbl} 1 tablet, Oral, Q4HPRN, Starting on [facility] 01/20/24 at 2013, Until Discontinu ed, Routine, Pain (scale 4-6) [facility] ondansetron (ZOFRAN) tablet 4 mg 01-20 02:12: 47 Yes 4mg 4 mg, Oral, Q6HPRN, Starting on [facility] 01/20/24 at 2011, Until Discontinu ed, Routine, Nausea and Vomiting (N/V) [facility] ondansetron (ZOFRAN (PF)) injection 4 mg 01-20 00:22: 09 Yes 4mg 4 mg, Slow IV Push, Q6HPRN, Starting on 01/20/24 at 1822, Until Discontinu ed, Routine, Nausea and Vomiting (N/V) [facility] morpHINE (2 mg/mL) injection 4 mg 01-20 00:22: 08 01-20 02:14 :29 No 4mg 4 mg, Slow IV Push, Q4HPRN, Starting on 01/20/24 at 1822, Until 01/20/24 at 2014, Routine, Pain (scale 7-10) [facility] acetaminoph en (TYLENOL) tablet 650 mg 01-20 00:22: 01 Yes 650mg 650 mg, Oral, Q6HPRN, Starting on 01/20/24 at 1822, Until Discontinu ed, Routine, Pain (scale 1-3), Temp > 38 C [facility] NaCl 0.9% (NS) bolus infusion 1,000 mL 01-20 00:15: 00 01-19 23:23 :00 No 1000mL at 999 mL/hr, 1,000 mL, IV Infusion, ONCE, 1 dose, On 01/20/24 at 1815, [facility] piperacilli n-tazobacta m (ZOSYN) 3.375 g in NaCl 0.9% (NS) 100 mL MINI-BAG 01-20 00:00: 00 01-20 00:49 :00 No 3.375g 3.375 g, IV Piggyback, ONCE, 1 dose, On 01/20/24 at 1800, Administer over 30 Minutes, 100 mL
Reas on for Anti-Infec tive: Documented Infection< br>Documen carrie Infection Site: Abdominal< br>Duratio n of Therapy: Other (see Comments) [facility] dicyclomine (BENTYL) tablet 20 mg 01-19 23:30: 00 01-19 23:23 :00 No 20mg 20 mg, Oral, ONCE, 1 dose, On 01/20/24 at 1730, [facility] iopamidol (ISOVUE 370-500 mL) injection 85 mL 01-19 22:30: 00 01-19 22:45 :00 No [id number] 85mL 85 mL, Intravenou s, ONCE, 1 dose, On 01/20/24 at 1645, Routine [facility] dicyclomine 20 mg tablet 01-19 00:00: 00 01-19 00:00 :00 No 20mg Take 1 tablet by mouth every 6 (six) hours as needed for Abdominal pain. [facility] ondansetron 4 mg disintegrat ing tablet 01-19 00:00: 00 01-19 00:00 :00 No 4mg Take 1 tablet by mouth every 8 (eight) hours as needed for Nausea and Vomiting (N/V). [facility] chlordiazeP OXIDE (LIBRIUM) capsule 10 mg 2022-11 02:00: 00 Yes 10mg 10 mg, Oral, BID, First dose (after last modificati on) on 11/05/23 at 2000, Until Discontinu ed, Routine [facility] diazePAM (VALIUM) tablet 5 mg 2022-11 16:47: 25 Yes 5mg 5 mg, Oral, BIDPRN, Starting on 11/05/23 at 1047, Until Discontinu ed, Routine, Agitation, Anxiety [facility] HYDROcodone -acetaminop hen (NORCO) 10-325 mg tablet 1 tablet 2022-11 16:46: 43 Yes 1{tbl} 1 tablet, Oral, Q6HPRN, Starting on 11/05/23 at 1046, Until Discontinu ed, Routine, Pain (scale 7-10) [facility] amLODIPine (NORVASC) tablet 5 mg 2022-11 15:15: 00 Yes 5mg 5 mg, Oral, DAILY, First dose on 11/05/23 at 0915, Until Discontinu ed, Routine [facility] magnesium sulfate in water 2 gram/50 mL (4 %) infusion 2 g 2022-11 14:30: 00 11-05 15:49 :00 No 2g 2 g, IV Piggyback, Administer over 60 Minutes, ONCE, 1 dose, On 11/05/23 at 0830, Routine [facility] amLODIPine 10 mg tablet 2022-11 13:23: 18 Yes 10mg Take 10 mg by mouth daily. [facility] metoprolol succinate XL 25 mg 24 hr tablet 2022-11 13:23: 18 Yes 25mg Take 25 mg by mouth daily. [facility] busPIRone 5 mg tablet 2022-11 12:37: 19 11-05 00:00 :00 No 5mg Take 5 mg by mouth 2 (two) times daily. [facility] FLUoxetine 40 mg capsule 2022-11 12:37: 11-05 00:00 :00 No 40mg Take 40 mg by mouth daily. [facility] lipase-prot ease-amylas e (CREON) 36,000-114, 000- 180,000 unit CpDR 2022-11 12:37: 11-05 00:00 :00 No 2{capsu le} Take 2 capsules by mouth before meals. Take 2 capsules by mouth with meals and 1 with each snack. [facility] cloNIDine (CATAPRES) tablet 0.2 mg 2022-11 04:15: 00 11-05 03:53 :00 No .2mg 0.2 mg, Oral, ONCE, 1 dose, On 11/04/23 at 2215, Routine [facility] hydralAZINE (APRESOLINE ) injection 10 mg 2022-11 03:19: 55 Yes 10mg 10 mg, Slow IV Push, Q4HPRN, Starting on 11/04/23 at 2119, Until Discontinu ed, Routine, DBP=>100; SBP=>180 [facility] busPIRone (BUSPAR) tablet 10 mg 2022-11 02:00: 00 Yes 10mg 10 mg, Oral, BID, First dose (after last modificati on) on 11/04/23 at 2000, Until Discontinu ed, Routine [facility] FLUoxetine (PROZAC) capsule 40 mg 2022-11 02:00: 00 Yes 40mg 40 mg, Oral, BID, First dose (after last modificati on) on 11/04/23 at 1999, Until Discontinu ed, Routine [facility] potassium chloride in water 10 mEq/100 mL RTU 10 mEq 2022-11 02:00: 00 11-05 06:50 :00 No 10meq 10 mEq, IV Piggyback, Q2H, 3 doses, First dose (after last modificati on) on 11/04/23 at 2000, Last dose on 11/05/23 at 0000, Administer over 60 Minutes, 100 mL [facility] ondansetron 4 mg tablet 2022-11 00:00: 00 Yes [id number] 4mg Take 1 tablet by mouth every 6 (six) hours as needed for Nausea and Vomiting (N/V). [facility] diazePAM 5 mg tablet 2022-11 00:00: 00 09-19 00:00 :00 No [id number] 5mg Take 1 tablet by mouth 2 (two) times daily as needed for Agitation or Anxiety. [facility] busPIRone 10 mg tablet 2022-11 00:00: 00 01-22 00:00 :00 No 10mg Take 1 tablet by mouth in the morning and 1 tablet in the evening. [facility] FLUoxetine 40 mg capsule 2022-11 00:00: 00 01-22 00:00 :00 No 40mg Take 1 capsule by mouth in the morning and 1 capsule in the evening. [facility] HYDROcodone -acetaminop hen 5-325 mg tablet 2022-11 00:00: 00 11-10 05:59 :00 No [id number] 1{tbl} Take 1 tablet by mouth every 4 (four) hours as needed for Pain (scale 4-6) for up to 4 days. Indication s: acute pain [facility] HYDROcodone -acetaminop hen 10-325 mg tablet 2022-11 00:00: 00 11-05 00:00 :00 No [id number] 1{tbl} Take 1 tablet by mouth every 6 (six) hours as needed for Pain (scale 7-10) for up to 4 days. Indication s: acute pain [facility] potassium chloride in water 10 mEq/100 mL RTU 10 mEq 2022-11 00:00: 00 11-04 23:38 :25 No 10meq 10 mEq, IV Piggyback, Q1H, 4 doses, First dose on 11/04/23 at 1800, Last dose on 11/04/23 at 2100, Administer over 60 Minutes, [address] [facility] enoxaparin (LOVENOX) injection 30 mg 2022-11 23:00: 00 Yes 30mg 30 mg, Subcutaneo us, DAILY, First dose on 11/04/23 at 1700, Until Discontinu ed, Routine [facility] Potassium Bicarb-Citr ic Acid (EFFER-K) effervescen t tablet 40 mEq 2022-11 23:00: 00 11-04 22:41 :00 No 40meq 40 mEq, Oral, ONCE, 1 dose, On 11/04/23 at 1700, Routine [facility] metoprolol succinate XL (TOPROL XL) tablet 25 mg 2022-11 22:15: 00 Yes 25mg 25 mg, Oral, DAILY, First dose on 11/04/23 at 1615, Until Discontinu ed, Routine [facility] magnesium sulfate in water 2 gram/50 mL (4 %) infusion 2 g 2022-11 17:15: 00 11-04 18:15 :00 No 2g 2 g, IV Piggyback, Administer over 60 Minutes, ONCE, 1 dose, On 11/04/23 at 1115, Routine [facility] pantoprazol e (PROTONIX) EC tablet 40 mg 2022-11 16:30: 00 Yes 40mg 40 mg, Oral, DAILY, First dose on 11/04/23 at 1030, Until Discontinu ed, Routine [facility] busPIRone (BUSPAR) tablet 5 mg 2022-11 16:30: 00 11-04 22:14 :20 No 5mg 5 mg, Oral, BID, First dose on 11/04/23 at 1030, Until Discontinu ed, Routine [facility] FLUoxetine (PROZAC) capsule 40 mg 2022-11 16:30: 00 11-04 22:14 :20 No 40mg 40 mg, Oral, DAILY, First dose on 11/04/23 at 1030, Until Discontinu ed, Routine [facility] morpHINE (4 mg/mL) injection 4 mg 2022-11 16:27: 47 11-05 16:47 :48 No 4mg 4 mg, Slow IV Push, Q4HPRN, Starting on 11/04/23 at 1027, Until 11/05/23 at 1047, Routine, Pain (scale 7-10) [facility] docusate (COLACE) capsule 100 mg 2022-11 15:00: 00 Yes 100mg 100 mg, Oral, DAILY, First dose on 11/04/23 at 0900, Until Discontinu ed, Routine [facility] potassium chloride in water 10 mEq/100 mL RTU 10 mEq 2022-11 14:15: 00 11-04 14:46 :00 No 10meq 10 mEq, IV Piggyback, ONCE, 1 dose, On 11/04/23 at 0815, Administer over 60 Minutes, 100 mL [facility] HYDROcodone -acetaminop hen (NORCO 5) 5-325 mg tablet 1 tablet 2022-11 11:00: 00 11-06 05:59 :00 No 1{tbl} 1 tablet, Oral, Q4HPRN, Starting on 11/04/23 at 0500, Until 11/05/23 at 2359, Routine, Pain (scale 4-6) [facility] FENTanyl PF (SUBLIMAZE (PF)) injection 25 mcg 2022-11 11:00: 00 11-04 16:28 :22 No 25ug 25 mcg, Slow IV Push, Q4HPRN, Starting on 11/04/23 at 0500, Until 11/04/23 at 1028, Routine, Pain (scale 7-10) [facility] FENTanyl PF (SUBLIMAZE (PF)) injection 50 mcg 2022-11 07:15: 00 11-04 06:17 :00 No 50ug 50 mcg, Slow IV Push, ONCE, 1 dose, On 11/04/23 at 0115, STAT [facility] potassium chloride in water 10 mEq/100 mL RTU 10 mEq 2022-11 07:00: 00 11-04 11:48 :00 No 10meq 10 mEq, IV Piggyback, Q1H, 4 doses, First dose on 11/04/23 at 0100, Last dose on 11/04/23 at 0400, Administer over 60 Minutes, 100 mL [facility] NaCl 0.9% (NS) IV infusion 1,000 mL 2022-11 06:30: 00 Yes 1000mL at 150 mL/hr, IV Infusion, CONTINUOUS , Starting on 11/04/23 at 0030, Until Discontinu ed, Routine [facility] chlordiazeP OXIDE (LIBRIUM) capsule 10 mg 2022-11 06:30: 00 11-05 14:58 :48 No 10mg 10 mg, Oral, TID, First dose on 11/04/23 at 0030, Until Discontinu ed, Routine [facility] diazePAM (VALIUM) injection 2 mg 2022-11 06:26: 36 11-05 16:47 :48 No 2mg 2 mg, Slow IV Push, TIDPRN, Starting on 11/04/23 at 0026, Until 11/05/23 at 1047, Routine, Agitation [facility] ondansetron (ZOFRAN (PF)) injection 4 mg 2022-11 06:25: 39 Yes 4mg 4 mg, Slow IV Push, Q6HPRN, Starting on 11/04/23 at 0025, Until Discontinu ed, Routine, Nausea and Vomiting (N/V) [facility] FENTanyl PF (SUBLIMAZE (PF)) injection 25 mcg 2022-11 06:25: 31 11-04 10:59 :53 No 25ug 25 mcg, Slow IV Push, Q6HPRN, Starting on 11/04/23 at 0025, Until 11/04/23 at 0459, Routine, Pain (scale 7-10) [facility] HYDROcodone -acetaminop hen (NORCO 5) 5-325 mg tablet 1 tablet 2022-11 06:25: 23 11-04 10:59 :53 No 1{tbl} 1 tablet, Oral, Q6HPRN, Starting on 11/04/23 at 0025, Until 11/04/23 at 0459, Routine, Pain (scale 4-6) [facility] acetaminoph en (TYLENOL) tablet 650 mg 2022-11 06:25: 21 Yes 650mg 650 mg, Oral, Q6HPRN, Starting on 11/04/23 at 0025, Until Discontinu ed, Routine, Pain (scale 1-3) [facility] cloNIDine (CATAPRES) tablet 0.1 mg 2022-11 06:15: 00 11-04 06:38 :00 No .1mg 0.1 mg, Oral, ONCE, 1 dose, On Mon11/04/23 at 0015, STAT [facility] famotidine (PEPCID (PF)) injection 20 mg 2022-11 06:00: 00 11-04 05:00 :00 No 20mg 20 mg, Slow IV Push, ONCE, 1 dose, On Mon11/04/23 at 0000, [facility] ondansetron (ZOFRAN (PF)) injection 4 mg 2022-11 05:00: 00 11-04 05:00 :00 No 4mg 4 mg, Slow IV Push, ONCE, 1 dose, [facility]11/03/23 at 2300, [facility] 40 mg 2022-11 15:15: 00 09-15 15:26 :00 No 40mg 40 mg, IV Push, ONCE, 1 dose, On Mon09/15/23 at 1015, [facility] albuterol (PROVENTIL) 2.5 mg /3 mL (0.083 %) nebulizer solution 5 mg 2022-11 15:15: 00 09-15 14:30 :00 No 5mg 5 mg, Inhalation , ONCE, 1 dose, On Mon09/15/23 at 1015, [facility] albuterol 90 mcg/actuati on inhaler 2022-11 00:00: 00 09-19 00:00 :00 No [id number] 2{puff} Inhale 2 Puffs every 4 (four) hours as needed for Wheezing or Shortness of Breath. [facility] levoFLOXaci n 750 mg tablet 2022-11 00:00: 00 11-03 00:00 :00 No [id number] 750mg Take 1 tablet by mouth every 24 (twenty-fo ur) hours. [facility] pantoprazol e (PROTONIX) 40 mg EC tablet 07-08 22:05: 07-08 00:00 :00 No 40mg Take 40 mg by mouth daily. [facility] PANTOPRAZOL E 40 mg EC tablet 07-08 00:00: 00 09-19 00:00 :00 No [id number] TAKE ONE TABLET BY MOUTH DAILY [facility] levoFLOXaci n (LEVAQUIN) tablet 750 mg 04-30 08:45: 00 04-30 07:44 :00 No 750mg 750 mg, Oral, ONCE NOW, 1 dose, Mon04/30/21 at 0345, [facility]
Re ason for Anti-Infec tive: Empiric Therapy for Suspected Infection< br>Empiric Therapy Site: Respirator y
Durat ion of therapy: 72 hours [facility] iopamidol (ISOVUE 370-500 mL) injection 120 mL 04-30 08:00: 00 04-30 06:48 :00 No [id number] 120mL 120 mL, Intravenou s, ONCE, 1 dose, Mon04/30/21 at 0300, Routine [facility] ketorolac (TORADOL) injection 30 mg 04-30 07:30: 00 04-30 06:37 :00 No 30mg 30 mg, Slow IV Push, ONCE, 1 dose, Mon04/30/21 at 0230, Routine
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 [facility] traMADoL (ULTRAM) 50 mg tablet 04-30 00:00: 00 09-15 00:00 :00 No [id number] 50mg Take 1 tablet by mouth every 6 (six) hours as needed for Pain (scale 7-10). Indication s: acute pain [facility] amLODIPine 10 mg tablet 04-20 20:57: 17 Yes 10mg Take 10 mg by mouth daily. [facility] busPIRone 5 mg tablet 04-20 20:57: 17 Yes 5mg Take 5 mg by mouth 2 (two) times daily. [facility] FLUoxetine 40 mg capsule 04-20 20:57: 17 Yes 40mg Take 40 mg by mouth daily. [facility] lipase-prot ease-amylas e (CREON) 36,000-114, 000- 180,000 unit CpDR 04-20 20:57: 17 Yes 2{capsu le} Take 2 capsules by mouth before meals. Take 2 capsules by mouth with meals and 1 with each snack. [facility] metoprolol succinate XL 25 mg 24 hr tablet 04-20 20:57: 17 Yes 25mg Take 25 mg by mouth daily. [facility] pantoprazol e (PROTONIX) 40 mg EC tablet 04-20 20:57: 17 Yes 40mg Take 40 mg by mouth daily. [facility] amLODIPine 10 mg tablet 04-20 15:57: 17 Yes 10mg Take 10 mg by mouth daily. [facility] busPIRone 5 mg tablet 04-20 15:57: 17 Yes 5mg Take 5 mg by mouth 2 (two) times daily. [facility] FLUoxetine 40 mg capsule 04-20 15:57: 17 Yes 40mg Take 40 mg by mouth daily. [facility] lipase-prot ease-amylas e (CREON) 36,000-114, 000- 180,000 unit CpDR 04-20 15:57: 17 Yes 2{capsu le} Take 2 capsules by mouth before meals. Take 2 capsules by mouth with meals and 1 with each snack. [facility] metoprolol succinate XL 25 mg 24 hr tablet 04-20 15:57: 17 Yes 25mg Take 25 mg by mouth daily. [facility] acetaminoph en-codeine 300-30 mg tablet 04-20 00:00: 00 09-15 00:00 :00 No [id number] 1{tbl} Take 1-2 tablets by mouth every 6 (six) hours as needed for Pain (scale 4-6). Indication s: acute pain [facility] nicotine 14 mg/24 hr patch 04-20 00:00: 00 05-21 04:59 :00 No [id number] 1{patch } Apply 1 Patch to area(s) every 24 (twenty-fo ur) hours for 30 days. [facility] levoFLOXaci n 750 mg tablet 04-20 00:00: 00 04-25 04:59 :00 No [id number] 750mg Take 1 tablet by mouth every 24 (twenty-fo ur) hours for 4 days. [facility] metroNIDAZO LE 250 mg tablet 04-20 00:00: 00 04-25 04:59 :00 No [id number] 500mg Take 2 tablets by mouth every 8 (eight) hours for 4 days. [facility] levoFLOXaci n in D5W (LEVAQUIN) 750 mg/150 mL Piggyback 750 mg 04-19 19:00: 00 Yes 750mg 750 mg, IV Piggyback, Q24H ABX, First dose (after last reorder) on Mon04/19/21 at 1400, Until Discontinu ed, 150 mL
Reas on for Anti-Infec tive: Empiric Therapy for Suspected Infection< br>Empiric Therapy Site: Abdominal< br>Duratio n of therapy: 7 days [facility] FLUoxetine (PROZAC) capsule 40 mg 04-19 14:00: 00 Yes 40mg 40 mg, Oral, DAILY, First dose on Mon04/19/21 at 0900, Until Discontinu ed, Routine [facility] pantoprazol e (PROTONIX) EC tablet 40 mg 04-19 14:00: 00 Yes 40mg 40 mg, Oral, DAILY, First dose on Mon04/19/21 at 0900, Until Discontinu ed, Routine [facility] metoprolol succinate XL (TOPROL XL) tablet 25 mg 04-19 14:00: 00 Yes 25mg 25 mg, Oral, DAILY, First dose on Mon04/19/21 at 0900, Until Discontinu ed, Routine [facility] amLODIPine (NORVASC) tablet 10 mg 04-19 14:00: 00 Yes 10mg 10 mg, Oral, DAILY, First dose on Mon04/19/21 at 0900, Until Discontinu ed, Routine [facility] metroNIDAZO LE in NaCl (iso-os) (FLAGYL I.V.) RTU IV infusion 500 mg 04-19 05:00: 00 Yes 500mg 500 mg, IV Piggyback, Q8H ABX, First dose (after last reorder) on Mon04/19/21 at 0000, Until Discontinu ed, 100 mL
Reas on for Anti-Infec tive: Empiric Therapy for Suspected Infection< br>Empiric Therapy Site: Abdominal< br>Duratio n of therapy: 7 days [facility] potassium phosphate 15 mmol in NaCl 0.9% (NS) 150 mL piggyback 04-19 02:15: 00 04-19 13:42 :00 No 15mmol 15 mmol, IV Piggyback, ONCE, 1 dose, 04/18/21 at 2115, [address] [facility] busPIRone (BUSPAR) tablet 5 mg 04-19 01:00: 00 Yes 5mg 5 mg, Oral, BID, First dose on Mon04/18/21 at 2000, Until Discontinu ed, Routine [facility] lipase-prot ease-amylas e (CREON) 12,000-38,0 00 -60,000 unit capsule 2 capsule 04-18 23:00: 00 Yes 2{capsu le} 2 capsule, Oral, TID MEALS, First dose on Mon04/18/21 at 1800, Until Discontinu ed [facility] HYDROcodone -acetaminop hen (NORCO 5) 5-325 mg tablet 1 tablet 04-18 22:37: 56 Yes 1{tbl} 1 tablet, Oral, Q6HPRN, Starting Mon04/18/21 at 1737, Until Discontinu ed, Routine, Pain (scale 4-6) [facility] D5W 0.45% NaCl (1/2NS) 1 L + KCL 20 mEq 04-18 21:00: 00 04-19 13:26 :19 No IV Infusion, at 100 mL/hr, CONTINUOUS , Starting Mon04/18/21 at 1600, Until Mon04/19/21 at 0826, Routine [facility] acetaminoph en (TYLENOL) tablet 650 mg 04-18 19:56: 43 Yes 650mg 650 mg, Oral, Q6HPRN, Starting Mon04/18/21 at 1456, Until Discontinu ed, Routine, Pain (scale 1-3) [facility] morpHINE injection 4 mg 04-18 19:56: 01 Yes 4mg 4 mg, Slow IV Push, Q6HPRN, Starting [place] 04/18/21 at 1456, Until Discontinu ed, STAT, Pain (scale 7-10) [facility] proMETHazin e (PHENERGAN) 12.5 mg in NaCl 0.9% (NS) 50 mL IV piggyback 04-18 19:55: 51 Yes 12.5mg 12.5 mg, IV Piggyback, Q4HPRN, Starting 04/18/21 at 1455, Until Discontinu ed, Routine, Nausea and Vomiting (N/V) [facility] morpHINE injection 4 mg 04-18 18:30: 00 04-18 17:40 :00 No 4mg 4 mg, Slow IV Push, ONCE, 1 dose, 04/18/21 at 1330, STAT [facility] KCL (KLOR-CON M20) tablet 40 mEq 04-18 18:15: 00 04-18 17:29 :00 No 40meq 40 mEq, Oral, ONCE, 1 dose, 04/18/21 at 1315, Routine [facility] metroNIDAZO LE in NaCl (iso-os) (FLAGYL I.V.) RTU IV infusion 500 mg 04-18 18:15: 00 04-18 18:56 :00 No 500mg 500 mg, IV Piggyback, ONCE, 1 dose, 04/18/21 at 1315, 100 mL
Reas on for Anti-Infec tive: Empiric Therapy for Suspected Infection< br>Empiric Therapy Site: Abdominal< br>Duratio n of therapy: 7 days [facility] iopamidol (ISOVUE 370-500 mL) injection 100 mL 04-18 18:15: 00 04-18 17:00 :00 No [id number] 100mL 100 mL, Intravenou s, ONCE, 1 dose, [place] 04/18/21 at 1315, Routine [facility] NaCl 0.9% (NS) bolus infusion 1,000 mL 04-18 17:15: 00 04-18 18:40 :00 No 1000mL at 999 mL/hr, 1,000 mL, IV Infusion, ONCE, 1 dose, 04/18/21 at 1215, STAT [facility] levoFLOXaci n in D5W (LEVAQUIN) 750 mg/150 mL Piggyback 750 mg 04-18 17:15: 00 04-18 20:11 :00 No 750mg 750 mg, IV Piggyback, ONCE, 1 dose, 04/18/21 at 1215, 150 mL
Reas on for Anti-Infec tive: Empiric Therapy for Suspected Infection< br>Empiric Therapy Site: Abdominal< br>Duratio n of therapy: 7 days [facility] diphenhydrA MINE (BENADRYL) injection 25 mg 04-18 17:15: 00 04-18 18:47 :00 No 25mg 25 mg, Slow IV Push, ONCE, 1 dose, 04/18/21 at 1215, STAT [facility] haloperidol lactate (HALDOL) injection 2.5 mg 04-18 17:15: 00 04-18 16:14 :00 No 2.5mg 2.5 mg, Intravenou s, ONCE, 1 dose, 04/18/21 at 1215, STAT [facility] morpHINE injection 4 mg 04-18 16:45: 00 04-18 15:57 :00 No 4mg 4 mg, Slow IV Push, ONCE, 1 dose, 04/18/21 at 1145, STAT [facility] metoclopram curtis HCl (REGLAN) injection 10 mg 04-18 16:30: 00 04-18 15:24 :00 No 10mg 10 mg, Slow IV Push, ONCE, 1 dose, 04/18/21 at 1130, [facility] NaCl 0.9% (NS) bolus infusion 1,000 mL 04-18 16:00: 00 04-18 16:48 :00 No 1000mL at 999 mL/hr, 1,000 mL, IV Infusion, ONCE, 1 dose, 04/18/21 at 1100, [facility] lipase-prot ease-amylas e (CREON) 36,000-114, 000- 180,000 unit CpDR 03-10 14:32: 33 03-10 00:00 :00 No Take 2 TAB-CAP/M2 by mouth before meals. Take 2 capsules by mouth with meals and 1 with each snack. [facility] amLODIPine 10 mg tablet 03-10 00:00: 00 04-10 04:59 :00 No [id number] 10mg Take 1 tablet by mouth daily for 30 days. [facility] busPIRone 5 mg tablet 03-10 00:00: 04-10 04:59 :00 No [id number] 5mg Take 1 tablet by mouth 2 (two) times daily for 30 days. [facility] FLUoxetine 40 mg capsule 03-10 00:00: 00 04-10 04:59 :00 No [id number] 40mg Take 1 capsule by mouth daily for 30 days. [facility] lipase-prot ease-amylas e (CREON) 36,000-114, 000- 180,000 unit CpDR 03-10 00:00: 00 04-10 04:59 :00 No [id number] Take 2 TAB-CAP/M2 by mouth before meals for 30 days. Take 2 capsules by mouth with meals and 1 with each snack. [facility] metoprolol succinate XL 25 mg 24 hr tablet 03-10 00:00: 04-10 04:59 :00 No [id number] 25mg Take 1 tablet by mouth daily for 30 days. [facility] pantoprazol e 40 mg EC tablet 03-10 00:00: 00 04-10 04:59 :00 No [id number] 40mg Take 1 tablet by mouth daily for 30 days. [facility] proMETHazin e 12.5 mg suppository 03-10 00:00: 00 03-26 04:59 :00 No [id number] 12.5mg Insert 1 Suppositor y into rectum every 4 (four) hours as needed for N/V unresponsi ve to Ondansetro n for up to 15 days. [facility] acetaminoph en-codeine 300-30 mg tablet 03-10 00:00: 00 03-18 04:59 :00 No [id number] 1{tbl} Take 1 tablet by mouth every 4 (four) hours as needed for Pain (scale 7-10) for up to 7 days. Indication s: acute pain [facility] ciprofloxac in HCl 500 mg tablet 03-10 00:00: 00 03-14 04:59 :00 No [id number] 500mg Take 1 tablet by mouth every 12 (twelve) hours for 3 days. [facility] metroNIDAZO LE 500 mg tablet 03-10 00:00: 00 03-14 04:59 :00 No [id number] 500mg Take 1 tablet by mouth every 8 (eight) hours for 3 days. [facility] acetaminoph en-codeine (TYLENOL #3) 300-30 mg tablet 1 tablet 03-09 21:10: 45 Yes 1{tbl} 1 tablet, Oral, Q4HPRN, Starting Mon03/09/21 at 1610, Until Discontinu ed, Routine, Pain (scale 7-10) [facility] FENTanyl PF (SUBLIMAZE (PF)) injection 50 mcg 03-08 22:31: 56 03-09 21:11 :00 No 50ug 50 mcg, Slow IV Push, Q3HPRN, Starting Mon03/08/21 at 1731, Until Mon03/09/21 at 1611, Routine, Pain (scale 7-10) [facility] FENTanyl PF (SUBLIMAZE (PF)) injection 100 mcg 03-08 19:08: 03 03-08 22:33 :12 No 100ug 100 mcg, Slow IV Push, Q3HPRN, Starting Mon03/08/21 at 1408, Until Mon03/08/21 at 1733, Routine, Pain (scale 7-10) [facility] diphenhydrA MINE (BENADRYL) injection 25 mg 03-08 15:10: 49 Yes 25mg 25 mg, Slow IV Push, Q6HPRN, Starting Mon03/08/21 at 1010, Until Discontinu ed, Routine, anxiety / intractabl e nausea [facility] FLUoxetine (PROZAC) capsule 40 mg 03-08 14:00: 00 Yes 40mg 40 mg, Oral, DAILY, First dose on Mon03/08/21 at 0900, Until Discontinu ed, Routine [facility] pantoprazol e (PROTONIX) EC tablet 40 mg 03-08 14:00: 00 Yes 40mg 40 mg, Oral, DAILY, First dose on Mon03/08/21 at 0900, Until Discontinu ed, Routine [facility] metoprolol succinate XL (TOPROL XL) tablet 25 mg 03-08 14:00: 00 Yes 25mg 25 mg, Oral, DAILY, First dose on Mon03/08/21 at 0900, Until Discontinu ed, Routine [facility] amLODIPine (NORVASC) tablet 10 mg 03-08 14:00: 00 Yes 10mg 10 mg, Oral, DAILY, First dose on Mon03/08/21 at 0900, Until Discontinu ed, Routine [facility] NaCl 0.9% (NS) IV infusion 1,000 mL 03-08 01:15: 00 03-10 14:23 :30 No 1000mL at 100 mL/hr, IV Infusion, CONTINUOUS , Starting Mon03/07/21 at 2015, Until Mon03/10/21 at 0923, Routine [facility] busPIRone (BUSPAR) tablet 5 mg 03-08 01:00: 00 Yes 5mg 5 mg, Oral, BID, First dose on Mon03/07/21 at 2000, Until Discontinu ed, Routine [facility] lipase-prot ease-amylas e (PANCREAZE) 16,800-56,8 00- 98,400 unit capsule 1 capsule 03-07 22:00: 00 Yes 1{capsu le} 1 capsule, Oral, TID MEALS, First dose on Mon03/07/21 at 1700, Until Discontinu ed [facility] enoxaparin (LOVENOX) injection 40 mg 03-07 22:00: 00 Yes 40mg 40 mg, Subcutaneo us, DAILY, First dose on Mon03/07/21 at 1700, Until Discontinu ed, Routine [facility] ketorolac (TORADOL) injection 15 mg 03-07 21:07: 38 03-09 00:46 :00 No 15mg 15 mg, Slow IV Push, Q8HPRN, 4 doses, Starting 03/07/21 at 1607, Until Discontinu ed, Routine, Breakthrou gh pain
Fa culty member approving Restricted medication : MADDY [facility] FENTanyl PF (SUBLIMAZE (PF)) injection 100 mcg 03-07 20:30: 00 03-07 19:30 :00 No 100ug 100 mcg, Slow IV Push, ONCE, 1 dose, 03/07/21 at 1530, STAT [facility] metroNIDAZO LE in NaCl (iso-os) (FLAGYL I.V.) RTU IV infusion 500 mg 03-07 19:30: 00 Yes 500mg 500 mg, IV Infusion, Q8H ABX, First dose on 03/07/21 at 1430, Until Discontinu ed, 100 mL
Reas on for Anti-Infec tive: Documented Infection< br>Documen carrie Infection Site: Abdominal< br>Duratio n of Therapy: Other (see Comments) [facility] ciprofloxac in in 5 % dextrose (CIPRO) piggyback 400 mg 03-07 19:30: 00 Yes 400mg 400 mg, IV Piggyback, Administer over 60 Minutes, Q12H ABX, First dose on 03/07/21 at 1430, Until Discontinu ed, [facility]
Re ason for Anti-Infec tive: Documented Infection< br>Documen carrie Infection Site: Abdominal< br>Duratio n of Therapy: Other (see Comments) [facility] NaCl 0.9% (NS) bolus infusion 1,000 mL 03-07 19:30: 00 03-07 19:28 :00 No 1000mL at 999 mL/hr, 1,000 mL, IV Infusion, ONCE, 1 dose, [place] 03/07/21 at 1430, STAT [facility] proMETHazin e (PHENERGAN) 12.5 mg in NaCl 0.9% (NS) 50 mL piggyback 03-07 18:45: 00 03-07 17:40 :00 No 12.5mg 12.5 mg, IV Piggyback, ONCE, 1 dose, 03/07/21 at 1345, 50 mL [facility] FENTanyl PF (SUBLIMAZE (PF)) injection 100 mcg 03-07 18:45: 00 03-07 17:39 :00 No 100ug 100 mcg, Slow IV Push, ONCE, 1 dose, 03/07/21 at 1345, STAT [facility] proMETHazin e (PROMETHEGA N) suppository 12.5 mg 03-07 18:37: 34 Yes 12.5mg 12.5 mg, Rectal, Q4HPRN, Starting 03/07/21 at 1337, Until Discontinu ed, Routine, N/V unresponsi ve to Ondansetro n [facility] ondansetron (ZOFRAN (PF)) injection 4 mg 03-07 18:37: 07 Yes 4mg 4 mg, Slow IV Push, Q6HPRN, Starting 03/07/21 at 1337, Until Discontinu ed, Routine, Nausea and Vomiting (N/V) [facility] FENTanyl PF (SUBLIMAZE (PF)) injection 50 mcg 03-07 18:34: 42 03-08 18:33 :42 No 50ug 50 mcg, Slow IV Push, Q3HPRN, Starting Mon03/07/21 at 1334, Until 03/08/21 at 1333, Routine, Pain (scale 7-10) [facility] traMADoL (ULTRAM) tablet 50 mg 03-07 18:34: 38 03-09 18:33 :38 No 50mg 50 mg, Oral, Q8HPRN, Starting 03/07/21 at 1334, Until 03/09/21 at 1333, Routine, Pain (scale 4-6) [facility] acetaminoph en (TYLENOL) tablet 650 mg 03-07 18:34: 35 Yes 650mg 650 mg, Oral, Q6HPRN, Starting 03/07/21 at 1334, Until Discontinu ed, Routine, Pain (scale 1-3) [facility] ondansetron (ZOFRAN (PF)) injection 4 mg 03-07 17:45: 00 03-07 16:39 :00 No 4mg 4 mg, Slow IV Push, ONCE, 1 dose, [place] 03/07/21 at 1245, [facility] iohexol (OMNIPAQUE 350 BULK-100 mL) injection 100 mL 03-07 17:30: 00 03-07 17:18 :00 No [id number] 100mL 100 mL, Intravenou s, ONCE, 1 dose, [place] 03/07/21 at 1230, Routine [facility] morpHINE injection 4 mg 03-07 17:30: 00 03-07 16:34 :00 No 4mg 4 mg, Slow IV Push, ONCE, 1 dose, [place] 03/07/21 at 1230, STAT [facility] NaCl 0.9% (NS) bolus infusion 1,000 mL 03-07 17:30: 00 03-07 18:27 :00 No 1000mL at 999 mL/hr, 1,000 mL, IV Infusion, ONCE, 1 dose, [place] 03/07/21 at 1230, STAT [facility] proMETHazin e 25 mg tablet 02-24 00:00: 00 Yes [id number] 25mg Take 1 tablet by mouth every 6 (six) hours as needed for Nausea and Vomiting (N/V). [facility] ondansetron (ZOFRAN) 4 mg tablet 02-24 00:00: 00 Yes [id number] 4mg Take 1 tablet by mouth every 8 (eight) hours as needed for Nausea and Vomiting (N/V). [facility] lipase-prot ease-amylas e (CREON) 36,000-114, 000- 180,000 unit CpDR 14 01:22: 29 Yes Take 2 TAB-CAP/M2 by mouth before meals. Take 2 capsules by mouth with meals and 1 with each snack. [facility] lidocaine (LIDODERM) 5 % (700 mg/patch) patch 1 Patch 01-23 15:30: 00 01-24 04:06 :00 No 1{patch } 1 Patch, Topical, Administer over 12 Hours, ONCE, 1 dose, 01/23/21 at 0930, Routine [facility] enoxaparin (LOVENOX) injection 40 mg 01-23 15:00: 00 Yes 40mg 40 mg, Subcutaneo us, DAILY, First dose on 01/23/21 at 0900, Until Discontinu ed, Routine [facility] pantoprazol e (PROTONIX) EC tablet 40 mg 01-23 15:00: 00 Yes 40mg 40 mg, Oral, DAILY, First dose on 01/23/21 at 0900, Until Discontinu ed, Routine [facility] metoprolol succinate XL (TOPROL XL) tablet 25 mg 01-23 15:00: 00 Yes 25mg 25 mg, Oral, DAILY, First dose on 01/23/21 at 0900, Until Discontinu ed, Routine [facility] losartan (COZAAR) tablet 50 mg 01-23 15:00: 00 Yes 50mg 50 mg, Oral, DAILY, First dose on 01/23/21 at 0900, Until Discontinu ed, Routine [facility] amLODIPine (NORVASC) tablet 10 mg 01-23 15:00: 00 Yes 10mg 10 mg, Oral, DAILY, First dose on 01/23/21 at 0900, Until Discontinu ed, [facility] 4 mg 01-23 14:04: 09 Yes 4mg 4 mg, Slow IV Push, Q6HPRN, Starting 01/23/21 at 0804, Until Discontinu ed, Routine, Pain (scale 7-10) [facility] lipase-prot ease-amylas e (PANCREAZE) 16,800-56,8 00- 98,400 unit capsule 2 capsule 01-23 14:00: 00 Yes 2{capsu le} 2 capsule, Oral, TID MEALS, First dose on 01/23/21 at 0800, Until Discontinu ed [facility] busPIRone (BUSPAR) tablet 5 mg 01-23 14:00: 00 Yes 5mg 5 mg, Oral, BID, First dose on 01/23/21 at 0800, Until Discontinu ed, Routine [facility] morpHINE injection 2 mg 01-23 08:14: 00 01-23 08:43 :00 No 2mg 2 mg, Slow IV Push, ONCE, 1 dose, 01/23/21 at 0215, Routine [facility] ondansetron (ZOFRAN (PF)) injection 4 mg 01-23 07:40: 39 Yes 4mg 4 mg, Slow IV Push, Q6HPRN, Starting 01/23/21 at 0140, Until Discontinu ed, Routine, Nausea and Vomiting (N/V) [facility] NaCl 0.9% (NS) IV infusion 01-23 05:15: 00 Yes IV Infusion, at 100 mL/hr, CONTINUOUS , Starting Mon01/22/21 at 2315, Until Discontinu ed, Routine [facility] ondansetron (ZOFRAN (PF)) injection 4 mg 01-23 03:31: 00 01-23 04:09 :00 No 4mg 4 mg, Slow IV Push, ONCE, 1 dose, Mon01/22/21 at 2145, Routine [facility] morpHINE injection 2 mg 01-23 03:31: 00 01-23 04:09 :00 No 2mg 2 mg, Slow IV Push, ONCE, 1 dose, Mon01/22/21 at 2145, Routine [facility] acetaminoph en (TYLENOL) tablet 650 mg 01-23 03:27: 55 Yes 650mg 650 mg, Oral, Q6HPRN, Starting Mon01/22/21 at 2127, Until Discontinu ed, Routine, Pain (scale 1-3) [facility] proMETHazin e (PHENERGAN) tablet 25 mg 01-23 03:27: 54 Yes 25mg 25 mg, Oral, Q6HPRN, Starting Mon01/22/21 at 2127, Until Discontinu ed, Routine, Nausea and Vomiting (N/V) [facility] morpHINE injection 4 mg 01-22 23:45: 00 01-22 22:55 :00 No 4mg 4 mg, Slow IV Push, ONCE, 1 dose, Mon01/22/21 at 1745, STAT [facility] proMETHazin e (PHENERGAN) 25 mg in NaCl 0.9% (NS) 50 mL piggyback 01-22 23:45: 00 01-22 23:45 :00 No 25mg 25 mg, IV Piggyback, ONCE, 1 dose, Mon01/22/21 at 1745, 50 mL [facility] diphenhydrA MINE (BENADRYL) injection 25 mg 01-22 23:15: 00 01-22 22:17 :00 No 25mg 25 mg, Intravenou s, ONCE, 1 dose, 01/22/21 at 1715, [facility] metoclopram curtis HCl (REGLAN) injection 10 mg 01-22 23:15: 00 01-22 22:16 :00 No 10mg 10 mg, Slow IV Push, ONCE, 1 dose, 01/22/21 at 1715, [facility] haloperidol lactate (HALDOL) injection 5 mg 01-22 22:00: 00 01-22 20:58 :00 No 5mg 5 mg, Intravenou s, ONCE, 1 dose, 01/22/21 at 1600, STAT [facility] iohexol (OMNIPAQUE 350 BULK-150 mL) injection 120 mL 01-22 21:15: 00 01-22 21:12 :00 No [id number] 120mL 120 mL, Intravenou s, ONCE, 1 dose, 01/22/21 at 1515, Routine [facility] NaCl 0.9% (NS) bolus infusion 1,000 mL 01-22 20:30: 00 01-23 01:20 :00 No 1000mL at 999 mL/hr, 1,000 mL, IV Infusion, ONCE, 1 dose, 01/22/21 at 1430, STAT [facility] ondansetron (ZOFRAN (PF)) injection 4 mg 01-22 20:30: 00 01-22 20:02 :00 No 4mg 4 mg, Slow IV Push, ONCE, 1 dose, 01/22/21 at 1430, [facility] morpHINE injection 4 mg 01-22 20:30: 00 01-22 20:02 :00 No 4mg 4 mg, Slow IV Push, ONCE, 1 dose, 01/22/21 at 1430, STAT [facility] NaCl 0.9% (NS) bolus infusion 1,000 mL 01-22 20:00: 00 01-22 22:15 :00 No 1000mL at 999 mL/hr, 1,000 mL, IV Infusion, ONCE, 1 dose, 01/22/21 at 1400, STAT [facility] pantoprazol e 40 mg EC tablet 01-12 00:00: 00 03-10 00:00 :00 No [id number] 40mg Take 1 tablet by mouth daily. [facility] acetaminoph en-codeine (TYLENOL-CO DEINE #3) 300-30 mg tablet 01-12 00:00: 00 01-20 05:59 :00 No [id number] 1{tbl} Take 1 tablet by mouth every 6 (six) hours as needed for Pain (scale 7-10) for up to 7 days. Indication s: acute pain [facility] proMETHazin e 25 mg tablet 12-25 00:00: 00 02-24 00:00 :00 No [id number] 25mg Take 1 tablet by mouth every 6 (six) hours as needed for Nausea and Vomiting (N/V). [facility] ondansetron (ZOFRAN) 4 mg tablet 2021-0 2-12 00:00: 00 02-24 00:00 :00 No [id number] 4mg Take 1 tablet by mouth every 8 (eight) hours as needed for Nausea and Vomiting (N/V). [facility] FLUoxetine (PROZAC) 20 mg capsule 11-27 15:28: 40 11-27 00:00 :00 No 40mg Take 40 mg by mouth daily. [facility] metoprolol succinate XL 25 mg 24 hr tablet 11-27 15:28: 40 11-27 00:00 :00 No 25mg Take 25 mg by mouth daily. [facility] busPIRone 5 mg tablet 11-27 00:00: 00 03-10 00:00 :00 No [id number] 5mg Take 1 tablet by mouth 2 (two) times daily. [facility] amLODIPine 10 mg tablet 11-27 00:00: 00 03-10 00:00 :00 No [id number] 10mg Take 1 tablet by mouth daily. [facility] losartan 50 mg tablet 11-27 00:00: 00 03-10 00:00 :00 No [id number] 50mg Take 1 tablet by mouth daily. [facility] FLUoxetine 40 mg capsule 11-27 00:00: 00 03-10 00:00 :00 No [id number] 40mg Take 1 capsule by mouth daily. [facility] metoprolol succinate XL 25 mg 24 hr tablet 11-27 00:00: 00 03-10 00:00 :00 No [id number] 25mg Take 1 tablet by mouth daily. [facility] potassium chloride 10 mEq CR tablet 11-27 00:00: 00 03-10 00:00 :00 No [id number] 10meq Take 1 tablet by mouth every Monday, Monday and Monday. [facility] amLODIPine 10 mg tablet 2019-11 00:00: 00 11-27 00:00 :00 No [id number] 10mg Take 1 tablet by mouth daily for 30 days. [facility] FLUoxetine (PROZAC) 20 mg capsule 2019-11 20:53: 14 Yes 40mg Take 40 mg by mouth daily. [facility] metoprolol succinate XL 25 mg 24 hr tablet 2019-11 20:53: 14 Yes 25mg Take 25 mg by mouth daily. [facility] lipase-prot ease-amylas e (CREON) 36,000-114, 000- 180,000 unit CpDR 2019-11 20:53: 14 Yes Take 2 TAB-CAP/M2 by mouth before meals. Take 2 capsules by mouth with meals and 1 with each snack. [facility] KCL 20 mEq/15 mL solution 40 mEq 2019-11 16:00: 00 11-02 18:41 :00 No 40meq 40 mEq, Oral, ONCE, 1 dose, Mon11/02/20 at 1000, Routine [facility] amLODIPine (NORVASC) tablet 10 mg 2019-11 15:00: 00 Yes 10mg 10 mg, Oral, DAILY, First dose (after last modificati on) on Mon11/02/20 at 0900, Until Discontinu ed, Routine [facility] busPIRone 5 mg tablet 2019-11 00:00: 00 11-27 00:00 :00 No [id number] 5mg Take 1 tablet by mouth 2 (two) times daily for 30 days. [facility] ondansetron 4 mg tablet 2019-11 00:00: 00 11-13 05:59 :00 No [id number] 4mg Take 1 tablet by mouth every 8 (eight) hours as needed for Nausea and Vomiting (N/V) for up to 10 days. [facility] vancomycin 125 mg capsule 2019-11 00:00: 00 11-09 05:59 :00 No [id number] 125mg Take 1 capsule by mouth 4 (four) times daily for 6 days. [facility] acetaminoph en-codeine 300-30 mg tablet 2019-11 00:00: 00 2020- 12-27 05:59 :00 No [id number] 1{tbl} Take 1 tablet by mouth every 8 (eight) hours as needed for Pain (scale 7-10) for up to 5 days. Indication s: acute pain [facility] morpHINE injection 2 mg 2019-11 20:28: 41 Yes 2mg 2 mg, Slow IV Push, Q4HPRN, Starting 11/01/20 at 1428, Until Discontinu ed, Routine, Pain (scale 7-10) [facility] amLODIPine (NORVASC) tablet 5 mg 2019-11 20:15: 00 11-01 20:53 :00 No 5mg 5 mg, Oral, ONCE, 1 dose, 11/01/20 at 1415, Routine [facility] morpHINE injection 2 mg 2019-11 15:36: 41 11-01 20:29 :17 No 2mg 2 mg, Slow IV Push, Q4HPRN, Starting 11/01/20 at 0936, Until 11/01/20 at 1429, Routine, Pain (scale 7-10) [facility] busPIRone (BUSPAR) tablet 5 mg 2019-11 02:00: 00 Yes 5mg 5 mg, Oral, BID, First dose on 10/31/20 at 2000, Until Discontinu ed, Routine [facility] ALPRAZolam (XANAX) tablet 0.5 mg 2019-11 00:20: 02 Yes .5mg 0.5 mg, Oral, TIDPRN, Starting 10/31/20 at 1820, Until Discontinu ed, Routine, anxiety [facility] morpHINE injection 2 mg 2019-11 22:52: 10 11-01 05:51 :10 No 2mg 2 mg, Slow IV Push, Q4HPRN, Starting 10/31/20 at 1652, Until 10/31/20 at 2351, Routine, Pain (scale 7-10) [facility] NaCl 0.9% (NS) IV infusion 1,000 mL 2019-11 14:15: 00 Yes 1000mL at 50 mL/hr, IV Infusion, CONTINUOUS , Starting 10/31/20 at 0815, Until Discontinu ed, Routine [facility] morpHINE injection 2 mg 2019-11 14:15: 00 10-31 21:14 :00 No 2mg 2 mg, Slow IV Push, Q4HPRN, Starting 10/31/20 at 0815, Until 10/31/20 at 1514, Routine, Pain (scale 7-10) [facility] hydralAZINE (APRESOLINE ) injection 10 mg 2019-11 14:10: 47 Yes 10mg 10 mg, Slow IV Push, Q4HPRN, Starting 10/31/20 at 0810, Until Discontinu ed, Routine, DBP=>100; SBP=>160, Q4h for SBP>160 or DBP>100
Indicatio n: Hypertensi ve Emergency [facility] HYDROcodone -acetaminop hen (NORCO 5) 5-325 mg tablet 1 tablet 2019-11 14:09: 50 Yes 1{tbl} 1 tablet, Oral, Q6HPRN, Starting 10/31/20 at 0809, Until Discontinu ed, Routine, Pain (scale 4-6) [facility] morpHINE injection 2 mg 2019-11 21:19: 57 10-31 14:09 :18 No 2mg 2 mg, Slow IV Push, Q3HPRN, Starting 10/30/20 at 1519, Until 10/31/20 at 0809, Routine, Pain (scale 7-10) [facility] KCL (KLOR-CON M20) tablet 40 mEq 2019-11 18:15: 00 10-30 20:45 :00 No 40meq 40 mEq, Oral, ONCE, 1 dose, Mon10/30/20 at 1215, Routine [facility] magnesium sulfate in water 2 gram/50 mL (4 %) infusion 2 g 2019-11 18:15: 00 10-30 20:37 :00 No 2g 2 g, IV Piggyback, ONCE, 1 dose, Mon10/30/20 at 1215, Routine [facility] metoprolol succinate XL (TOPROL XL) tablet 25 mg 2019-11 15:00: 00 Yes 25mg 25 mg, Oral, DAILY, First dose on Mon10/30/20 at 0900, Until Discontinu ed, Routine [facility] losartan (COZAAR) tablet 50 mg 2019-11 15:00: 00 Yes 50mg 50 mg, Oral, DAILY, First dose on Mon10/30/20 at 0900, Until Discontinu ed, Routine [facility] FLUoxetine (PROZAC) capsule 40 mg 2019-11 15:00: 00 Yes 40mg 40 mg, Oral, DAILY, First dose on Mon10/30/20 at 0900, Until Discontinu ed, Routine [facility] amLODIPine (NORVASC) tablet 5 mg 2019-11 15:00: 00 11-01 19:00 :30 No 5mg 5 mg, Oral, DAILY, First dose on Mon10/30/20 at 0900, Until Discontinu ed, Routine [facility] lipase-prot ease-amylas e (PANCREAZE) 16,800-56,8 00- 98,400 unit capsule 2 capsule 2019-11 23:00: 00 Yes 2{capsu le} 2 capsule, Oral, TID MEALS, First dose on Mon10/29/20 at 1700, Until Discontinu ed
Facu lty member approving Non-formul jesus medication : AZAEL ROGEL
[place] son for non-formul jesus use: PATIENT CURRENTLY TAKING NONFORMULA RY PRODUCT [facility] vancomycin (VANCOCIN) capsule 125 mg 2019-11 22:00: 00 Yes 125mg 125 mg, Oral, QID, First dose on Mon10/29/20 at 1600, Until Discontinu ed, Routine
Reason for Anti-Infec tive: Empiric Therapy for Suspected Infection< br>Empiric Therapy Site: Abdominal< br>Duratio n of therapy: 7 days [facility] morpHINE injection 2 mg 2019-11 21:01: 53 10-30 21:00 :53 No 2mg 2 mg, Slow IV Push, Q3HPRN, Starting Mon10/29/20 at 1501, Until Mon10/30/20 at 1500, Routine, Pain (scale 7-10) [facility] KCL (KLOR-CON M20) tablet 40 mEq 2019-11 17:45: 00 10-29 18:56 :00 No 40meq 40 mEq, Oral, ONCE, 1 dose, Ne 10/29/20 at 1145, Routine [facility] magnesium sulfate in water 2 gram/50 mL (4 %) infusion 2 g 2019-11 17:45: 00 10-29 21:24 :00 No 2g 2 g, IV Piggyback, ONCE, 1 dose, Ne 10/29/20 at 1145, Routine [facility] NaCl 0.9% (NS) IV infusion 1,000 mL 2019-11 10:00: 00 10-31 14:08 :50 No 1000mL at 125 mL/hr, IV Infusion, CONTINUOUS , Starting Ne 10/29/20 at 0400, Until 10/31/20 at 0808, Routine [facility] enoxaparin (LOVENOX) injection 30 mg 2019-11 23:00: 00 Yes 30mg 30 mg, Subcutaneo us, DAILY, First dose on Mon10/28/20 at 1700, Until Discontinu ed, Routine [facility] pantoprazol e (PROTONIX) 40 mg in NaCl 0.9% (NS) 100 mL MINI-BAG 2019-11 22:15: 00 Yes 40mg 40 mg, IV Piggyback, Q24H, First dose on Mon10/28/20 at 1615, Until Discontinu ed, [address] [facility] lactated ringers IV infusion 1,000 mL 2019-11 21:30: 00 10-29 08:49 :30 No 1000mL at 125 mL/hr, 1,000 mL, IV Infusion, CONTINUOUS , Starting Mon10/28/20 at 1530, Until Ne 10/29/20 at 0249, [facility]BENTYL[facility] 20 mg 2019-11 21:30: 00 10-28 20:34 :00 No 20mg 20 mg, Intramuscu lar, ONCE, 1 dose, Mon10/28/20 at 1530, Routine [facility] haloperidol lactate (HALDOL) injection 5 mg 2019-11 21:30: 00 10-28 20:40 :00 No 5mg 5 mg, Intravenou s, ONCE, 1 dose, Mon10/28/20 at 1530, STAT [facility] ketorolac (TORADOL) injection 30 mg 2019-11 20:30: 00 10-28 19:42 :00 No 30mg 30 mg, Slow IV Push, ONCE, 1 dose, Mon10/28/20 at 1430, Routine
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 : EVELIN GUERIN [facility] metoclopram curtis HCl (REGLAN) injection 10 mg 2019-11 20:30: 00 10-28 19:42 :00 No 10mg 10 mg, Slow IV Push, ONCE, 1 dose, Mon10/28/20 at 1430, [facility] proCHLORper azine (COMPAZINE) 10 mg in NaCl 0.9% (NS) piggyback 2019-11 20:26: 31 11-01 20:26 :57 No 10mg 10 mg, IV Piggyback, Q4HPRN, Starting Mon10/28/20 at 1426, Until 11/01/20 at 1426, 50 mL [facility] proMETHazin e (PHENERGAN) 25 mg in NaCl 0.9% (NS) 50 mL piggyback 2019-11 20:26: 17 Yes 25mg 25 mg, IV Piggyback, Q4HPRN, Starting Mon10/28/20 at 1426, Until Discontinu ed, 50 mL [facility] morpHINE injection 2 mg 2019-11 20:20: 13 10-29 20:19 :13 No 2mg 2 mg, Slow IV Push, Q3HPRN, Starting Mon10/28/20 at 1420, Until Ne 10/29/20 at 1419, Routine, Pain (scale 7-10) [facility] HYDROcodone -acetaminop hen (NORCO 5) 5-325 mg tablet 1 tablet 2019-11 20:20: 02 10-30 20:19 :02 No 1{tbl} 1 tablet, Oral, Q6HPRN, Starting Mon10/28/20 at 1420, Until Mon10/30/20 at 1419, Routine, Pain (scale 4-6) [facility] acetaminoph en (TYLENOL) tablet 650 mg 2019-11 20:20: 00 Yes 650mg 650 mg, Oral, Q6HPRN, Starting Mon10/28/20 at 1420, Until Discontinu ed, Routine, Pain (scale 1-3) [facility] NaCl 0.9% (NS) IV infusion 1,000 mL 2019-11 18:00: 00 10-28 20:26 :49 No 1000mL at 500 mL/hr, Intravenou s, CONTINUOUS , Starting Mon10/28/20 at 1200, Until Mon10/28/20 at 1426, [facility] proMETHazin e (PHENERGAN) 25 mg in NaCl 0.9% (NS) 50 mL piggyback 2019-11 18:00: 00 10-28 16:57 :00 No 25mg 25 mg, IV Piggyback, ONCE, 1 dose, Mon10/28/20 at 1200, 50 mL [facility] iohexol (OMNIPAQUE 350 BULK-150 mL) injection 120 mL 2019-11 17:45: 00 10-28 17:38 :00 No 120mL 120 mL, Intravenou s, ONCE, 1 dose, Mon10/28/20 at 1145, Routine [facility] FLUoxetine (PROZAC) 20 mg capsule 2019-11 18:46: 19 Yes 20mg Take 20 mg by mouth daily. [facility] metoprolol succinate XL 25 mg 24 hr tablet 2019-11 18:46: 19 Yes 25mg Take 25 mg by mouth daily. [facility] lipase-prot ease-amylas e (CREON) 36,000-114, 000- 180,000 unit CpDR 2019-11 18:46: 19 Yes Take 2 TAB-CAP/M2 by mouth before meals. Take 2 capsules by mouth with meals and 1 with each snack. [facility] magnesium sulfate in water 2 gram/50 mL (4 %) infusion 2 g 2019-11 02:30: 00 09-30 02:29 :00 No 2g 2 g, IV Piggyback, ONCE, 1 dose, Mon09/29/20 at 2030, Routine [facility] magnesium oxide (MAG-OX 400) tablet 400 mg 2019-11 01:30: 00 Yes 400mg 400 mg, Oral, BID, First dose on Mon09/29/20 at 1930, Until Discontinu ed, Routine [facility] KCL (KLOR-CON M20) tablet 20 mEq 2019-11 01:30: 00 Yes 20meq 20 mEq, Oral, DAILY, First dose on Mon09/29/20 at 1930, Until Discontinu ed, Routine [facility] proMETHazin e 25 mg tablet 2019-11 00:00: 00 11-02 00:00 :00 No [id number] 25mg Take 1 tablet by mouth 3 (three) times daily as needed for Nausea and Vomiting (N/V). [facility] metoclopram curtis HCl 10 mg tablet 2019-11 00:00: 00 11-02 00:00 :00 No [id number] 10mg Take 1 tablet by mouth 3 (three) times daily as needed for Nausea and Vomiting (N/V). [facility] lactobacill us acidophilus 25 million cell -100 mg captab 2019-11 00:00: 00 10-15 05:59 :00 No [id number] 1{tbl} Take 1 tablet by mouth 2 (two) times daily for 14 days. [facility] acetaminoph en-codeine 300-30 mg tablet 2019-11 00:00: 00 10-08 05:59 :00 No [id number] 2{tbl} Take 2 tablets by mouth 2 (two) times daily as needed for Pain (scale 4-6) or Pain (scale 7-10) for up to 7 days. Indication s: acute pain [facility] ciprofloxac in HCl 500 mg tablet 2019-11 00:00: 00 10-06 05:59 :00 No [id number] 500mg Take 1 tablet by mouth every 12 (twelve) hours for 5 days. [facility] metroNIDAZO LE 500 mg tablet 2019-11 00:00: 00 10-06 05:59 :00 No [id number] 500mg Take 1 tablet by mouth every 8 (eight) hours for 5 days. [facility] morpHINE injection 2 mg 2019-11 20:51: 08 09-30 20:50 :08 No 2mg 2 mg, Slow IV Push, Q4HPRN, Starting Mon09/29/20 at 1451, Until Mon09/30/20 at 1450, Routine, Pain (scale 7-10) [facility] metoclopram curtis HCl (REGLAN) injection 10 mg 2019-11 20:00: 00 Yes 10mg 10 mg, Slow IV Push, TID, First dose on Mon09/29/20 at 1400, Until Discontinu ed, Routine [facility] alum-mag hydroxide-s imeth (MAALOX PLUS / MAG-AL PLUS) 200-200-20 mg/5 mL suspension 30 mL 2019-11 19:30: 00 Yes 30mL 30 mL, Oral, BID, First dose on Mon09/29/20 at 1330, Until Discontinu ed, Routine [facility] lactobacill us acidophilus (ACIDOPHILL US) 25 million cell -100 mg captab 1 tablet 2019-11 19:30: 00 Yes 1{tbl} 1 tablet, Oral, BID, First dose on Mon09/29/20 at 1330, Until Discontinu ed, Routine [facility] HYDROcodone -acetaminop hen (NORCO 5) 5-325 mg tablet 1 tablet 2019-11 19:16: 37 Yes 1{tbl} 1 tablet, Oral, TIDPRN, Starting Mon09/29/20 at 1316, Until Discontinu ed, Routine, Pain (scale 4-6) [facility] pantoprazol e (PROTONIX) EC tablet 40 mg 2019-11 15:00: 00 Yes 40mg 40 mg, Oral, DAILY, First dose on Mon09/29/20 at 0900, Until Discontinu ed, [facility] succ[facility] (TOPROL XL) tablet 25 mg 2019-11 15:00: 00 Yes 25mg 25 mg, Oral, DAILY, First dose on Mon09/29/20 at 0900, Until Discontinu ed, Routine [facility] FLUoxetine (PROZAC) capsule 20 mg 2019-11 15:00: 00 Yes 20mg 20 mg, Oral, DAILY, First dose on Mon09/29/20 at 0900, Until Discontinu ed, [facility] losartan (COZAAR) tablet 50 mg 2019-11 15:00: 00 09-29 19:14 :30 No 50mg 50 mg, Oral, DAILY, First dose on Mon09/29/20 at 0900, Until Discontinu ed, Routine [facility] amLODIPine (NORVASC) tablet 5 mg 2019-11 15:00: 00 09-29 19:14 :30 No 5mg 5 mg, Oral, DAILY, First dose on Mon09/29/20 at 0900, Until Discontinu ed, Routine [facility] lipase-prot ease-amylas e (CREON) 12,000-38,0 00 -60,000 unit capsule 2 capsule 2019-11 14:00: 00 Yes 2{capsu le} 2 capsule, Oral, TID MEALS, First dose on Mon09/29/20 at 0800, Until Discontinu ed [facility] ondansetron (ZOFRAN (PF)) injection 4 mg 2019-11 08:45: 10 Yes 4mg 4 mg, Slow IV Push, Q6HPRN, Starting Mon09/29/20 at 0245, Until Discontinu ed, Routine, Nausea and Vomiting (N/V) [facility] metoclopram curtis HCl (REGLAN) injection 10 mg 2019-11 23:30: 00 09-28 22:25 :00 No 10mg 10 mg, Slow IV Push, ONCE, 1 dose, Mon09/28/20 at 1730, [facility] morpHINE injection 2 mg 2019-11 23:21: 45 09-29 19:17 :54 No 2mg 2 mg, Slow IV Push, Q3HPRN, Starting Mon09/28/20 at 1721, Until Mon09/29/20 at 1317, Routine, Pain (scale 7-10) [facility] proMETHazin e (PHENERGAN) 25 mg in NaCl 0.9% (NS) 50 mL piggyback 2019-11 23:18: 48 Yes 25mg 25 mg, IV Piggyback, Q6HPRN, Starting Mon09/28/20 at 1718, Until Discontinu ed, 50 mL [facility] enoxaparin (LOVENOX) injection 30 mg 2019-11 23:00: 00 Yes 30mg 30 mg, Subcutaneo us, DAILY, First dose on Mon09/28/20 at 1700, Until Discontinu ed, Routine [facility] D5W 0.45% NaCl (1/2NS) 1 L + KCL 20 mEq 2019-11 21:45: 00 Yes IV Infusion, at 125 mL/hr, CONTINUOUS , Starting Mon09/28/20 at 1545, Until Discontinu ed, Routine [facility] metroNIDAZO LE in NaCl (iso-os) (FLAGYL I.V.) RTU IV infusion 500 mg 2019-11 21:30: 00 Yes 500mg 500 mg, IV Infusion, Q8H ABX, First dose on Mon09/28/20 at 1530, Until Discontinu ed, 100 mL
Reas on for Anti-Infec tive: Documented Infection< br>Documen carrie Infection Site: Abdominal< br>Duratio n of Therapy: Other (see Comments) [facility] ciprofloxac in in 5 % dextrose (CIPRO) piggyback 400 mg 2019-11 21:30: 00 Yes 400mg 400 mg, IV Piggyback, Administer over 60 Minutes, Q12H ABX, First dose on Mon09/28/20 at 1530, Until Discontinu ed, [facility]
Re ason for Anti-Infec tive: Documented Infection< br>Documen carrie Infection Site: Abdominal< br>Duratio n of Therapy: Other (see Comments) [facility] haloperidol lactate (HALDOL) injection 1 mg 2019-11 21:30: 00 09-28 20:34 :00 No 1mg 1 mg, Intravenou s, ONCE, 1 dose, Mon09/28/20 at 1530, STAT [facility] morpHINE injection 4 mg 2019-11 21:15: 00 09-28 20:34 :00 No 4mg 4 mg, Slow IV Push, ONCE, 1 dose, Mon09/28/20 at 1515, STAT [facility] ondansetron (ZOFRAN (PF)) injection 4 mg 2019-11 21:00: 00 09-28 20:01 :00 No 4mg 4 mg, Slow IV Push, ONCE, 1 dose, Mon09/28/20 at 1500, [facility] iohexol (OMNIPAQUE 350 BULK-150 mL) injection 120 mL 2019-11 19:45: 00 09-28 19:38 :00 No 120mL 120 mL, Intravenou s, ONCE, 1 dose, Mon09/28/20 at 1345, Routine [facility] haloperidol lactate (HALDOL) injection 1 mg 2019-11 19:15: 00 09-28 18:32 :00 No 1mg 1 mg, Slow IV Push, ONCE, 1 dose, Mon09/28/20 at 1315, STAT [facility] proMETHazin e (PHENERGAN) 25 mg in NaCl 0.9% (NS) 50 mL piggyback 2019-11 18:45: 00 09-28 17:55 :00 No 25mg 25 mg, IV Piggyback, ONCE, 1 dose, Mon09/28/20 at 1245, 50 mL [facility] NaCl 0.9% (NS) bolus infusion 1,000 mL 2019-11 18:45: 00 09-28 20:03 :00 No 1000mL at 999 mL/hr, 1,000 mL, IV Infusion, ONCE, 1 dose, 09/28/20 at 1245, [facility] haloperidol lactate (HALDOL) injection 2.5 mg 08-05 18:30: 00 08-05 17:30 :00 No 2.5mg 2.5 mg, Slow IV Push, ONCE, 1 dose, 08/05/20 at 1330, [facility] diphenhydrA MINE (BENADRYL) injection 25 mg 08-05 16:30: 00 08-05 15:41 :00 No 25mg 25 mg, Slow IV Push, ONCE, 1 dose, 08/05/20 at 1130, [facility] haloperidol lactate (HALDOL) injection 2.5 mg 08-05 16:30: 00 08-05 15:38 :00 No 2.5mg 2.5 mg, Slow IV Push, ONCE, 1 dose, 08/05/20 at 1130, [facility] NaCl 0.9% (NS) bolus infusion 1,000 mL 08-05 15:30: 08-05 20:00 :00 No 1000mL at 999 mL/hr, 1,000 mL, IV Infusion, ONCE, 1 dose, 08/05/20 at 1030, [facility] NaCl 0.9% (NS) bolus infusion 1,000 mL 08-03 17:15: 00 08-03 17:20 :00 No 1000mL at 999 mL/hr, 1,000 mL, IV Piggyback, ONCE, 1 dose, 08/03/20 at 1215, [facility] iohexol (OMNIPAQUE 350 BULK-150 mL) injection 120 mL 08-03 15:30: 00 08-03 14:47 :00 No 120mL 120 mL, Intravenou s, ONCE, 1 dose, 08/03/20 at 1030, [facility] haloperidol lactate (HALDOL) injection 2.5 mg 08-03 15:30: 00 08-03 16:11 :00 No 2.5mg 2.5 mg, Intravenou s, ONCE, 1 dose, Mon08/03/20 at 1030, STAT [facility] ondansetron (ZOFRAN (PF)) injection 4 mg 08-03 15:30: 00 08-03 14:21 :00 No 4mg 4 mg, Slow IV Push, ONCE, 1 dose, Mon08/03/20 at 1030, [facility] morpHINE injection 4 mg 08-03 15:30: 00 08-03 14:21 :00 No 4mg 4 mg, Slow IV Push, ONCE, 1 dose, Mon08/03/20 at 1030, STAT [facility] sucralfate 1 gram tablet 08-03 00:00: 00 11-02 00:00 :00 No [id number] 1g Take 1 tablet by mouth before meals and at bedtime. [facility] dicyclomine (BENTYL) 10 mg capsule 08-03 00:00: 11-02 00:00 :00 No [id number] 10mg Take 1 capsule by mouth every 8 (eight) hours as needed for Abdominal pain. [facility] ondansetron 4 mg disintegrat ing tablet 08-03 00:00: 11-02 00:00 :00 No [id number] 4mg Take 1 tablet by mouth every 8 (eight) hours as needed for Nausea and Vomiting (N/V). [facility] omeprazole 20 mg capsule 08-03 00:00: 09-03 04:59 :00 No [id number] 20mg Take 1 capsule by mouth daily for 30 days. [facility] FLUoxetine (PROZAC) 20 mg capsule 05-22 20:40: 13 Yes 20mg Take 20 mg by mouth daily. [facility] metoprolol succinate XL 25 mg 24 hr tablet 05-22 20:40: 13 Yes 25mg Take 25 mg by mouth daily. [facility] FLUoxetine (PROZAC) 20 mg capsule 05-22 19:59: 15 Yes 20mg Take 20 mg by mouth daily. [facility] metoprolol succinate XL 25 mg 24 hr tablet 05-22 19:59: 15 Yes 25mg Take 25 mg by mouth daily. [facility] proMETHazin e (PHENERGAN) 25 mg in NaCl 0.9% (NS) 50 mL (COMPOUNDED ) Piggyback 25 mg 05-22 13:40: 37 Yes 25mg 25 mg, IV Piggyback, Q4HPRN, Starting Mon05/22/20 at 0840, Until Discontinu ed, 50 mL [facility] morpHINE injection 2 mg 05-22 12:51: 57 05-23 12:50 :57 No 2mg 2 mg, Slow IV Push, Q4HPRN, Starting Mon05/22/20 at 0751, Until 05/23/20 at 0750, Routine, Pain (scale 7-10), Hold for SBP<110, DBP<60, RR<12, and/or drowsiness /sedation [facility] LORazepam (ATIVAN) tablet 0.5 mg 05-22 01:19: 21 Yes .5mg 0.5 mg, Oral, QHSPRN, Starting Mon05/21/20 at 2019, Until Discontinu ed, Routine, Anxiety [facility] lipase-prot ease-amylas e (CREON) 12,000-38,0 00 -60,000 unit capsule 2 capsule 05-22 01:00: 00 Yes 2{capsu le} 2 capsule, Oral, TID MEALS, First dose on Mon05/21/20 at 1999, Until Discontinu ed, Routine [facility] KCL 20 mEq/15 mL solution 40 mEq 05-22 01:00: 00 05-22 13:36 :49 No 40meq 40 mEq, Oral, BID, First dose on Mon05/21/20 at 1999, Until Discontinu ed, Routine [facility] Amylase-Lip ase-Proteas e (CREON) 24,000-76,0 00 -120,000 unit capsule 05-22 00:00: 00 05-30 04:59 :00 No [id number] Take 1 capsule by mouth 3 (three) times daily for 7 days. [facility] potassium chloride 10 mEq in 100 mL RTU 05-21 19:30: 00 05-22 00:45 :00 No 10meq 10 mEq, IV Piggyback, Q1H, 3 doses, First dose on Mon05/21/20 at 1430, Last dose on Mon05/21/20 at 1600, 100 mL [facility] NaCl 0.9% (NS) 1000 mL + KCL 20 mEq 05-21 14:15: 00 05-22 15:12 :13 No IV Infusion, at 125 mL/hr, CONTINUOUS , Starting Mon05/21/20 at 0915, Until Mon05/22/20 at 1012, Routine [facility] KCL 20 mEq/15 mL solution 40 mEq 05-21 14:15: 00 05-21 15:06 :00 No 40meq 40 mEq, Oral, ONCE, 1 dose, Mon05/21/20 at 0915, Routine [facility] pantoprazol e (PROTONIX) EC tablet 40 mg 05-21 14:00: 00 Yes 40mg 40 mg, Oral, DAILY, First dose on Mon05/21/20 at 0900, Until Discontinu ed, Routine [facility] metoprolol succinate XL (TOPROL XL) tablet 25 mg 05-21 14:00: 00 Yes 25mg 25 mg, Oral, DAILY, First dose on Mon05/21/20 at 0900, Until Discontinu ed, Routine [facility] losartan (COZAAR) tablet 50 mg 05-21 14:00: 00 Yes 50mg 50 mg, Oral, DAILY, First dose on Mon05/21/20 at 0900, Until Discontinu ed, Routine [facility] FLUoxetine (PROZAC) capsule 20 mg 05-21 14:00: 00 Yes 20mg 20 mg, Oral, DAILY, First dose on Mon05/21/20 at 0900, Until Discontinu ed, Routine [facility] amLODIPine (NORVASC) tablet 5 mg 05-21 14:00: 00 Yes 5mg 5 mg, Oral, DAILY, First dose on Ne 05/21/20 at 0900, Until Discontinu ed, Routine [facility] magnesium sulfate in water 2 gram/50 mL (4 %) infusion 2 g 05-21 14:00: 00 05-21 15:07 :00 No 2g 2 g, IV Piggyback, ONCE, 1 dose, [facility] 05/21/20 at 0900, Routine [facility] HYDROcodone -acetaminop hen (NORCO) 10-325 mg tablet 1 tablet 05-21 13:15: 00 Yes 1{tbl} 1 tablet, Oral, Q6H, First dose on Ne 05/21/20 at 0815, Until Discontinu ed, Routine [facility] proMETHazin e (PHENERGAN) 25 mg in NaCl 0.9% (NS) 50 mL piggyback 05-21 13:02: 09 Yes 25mg 25 mg, IV Piggyback, Q4HPRN, Starting [facility] 05/21/20 at 0802, Until Discontinu ed, 50 mL [facility] lipase-prot ease-amylas e (CREON) 12,000-38,0 00 -60,000 unit capsule 1 capsule 05-21 13:00: 00 05-22 00:50 :41 No 1{capsu le} 1 capsule, Oral, TID MEALS, First dose on Ne 05/21/20 at 0800, Until Discontinu ed, Routine [facility] hydralAZINE (APRESOLINE ) injection 10 mg 05-21 10:46: 34 Yes 10mg 10 mg, Intravenou s, Q6HPRN, Starting [facility] 05/21/20 at 0546, Until Discontinu ed, Routine, Hypertensi on [facility] FLUoxetine (PROZAC) 20 mg capsule 05-21 10:41: 19 Yes 20mg Take 20 mg by mouth daily. [facility] metoprolol succinate XL 25 mg 24 hr tablet 05-21 10:41: 19 Yes 25mg Take 25 mg by mouth daily. [facility] NaCl 0.9% (NS) IV infusion 1,000 mL 05-21 09:15: 00 05-21 13:06 :56 No 1000mL at 125 mL/hr, IV Infusion, CONTINUOUS , Starting Mon05/21/20 at 0415, Until Mon05/21/20 at 0806, Routine [facility] proCHLORper azine (COMPAZINE) injection 10 mg 05-21 09:10: 14 Yes 10mg 10 mg, Slow IV Push, Q6HPRN, Starting Mon05/21/20 at 0410, Until Discontinu ed, Routine, Nausea and Vomiting (N/V), N/V unresponsi ve to Ondansetro n [facility] morpHINE injection 2 mg 05-21 09:09: 25 05-22 09:08 :25 No 2mg 2 mg, Slow IV Push, Q4HPRN, Starting Mon05/21/20 at 0409, Until Mon05/22/20 at 0408, Routine, Pain (scale 7-10), Hold for SBP<110, DBP<60, RR<12, and/or drowsiness /sedation [facility] acetaminoph en (TYLENOL) tablet 650 mg 05-21 09:09: 12 Yes 650mg 650 mg, Oral, Q6HPRN, Starting Mon05/21/20 at 0409, Until Discontinu ed, Routine, Pain (scale 1-3) [facility] LORazepam (ATIVAN) injection 1 mg 05-21 06:30: 00 05-21 05:31 :00 No 1mg 1 mg, Slow IV Push, ONCE, 1 dose, Ne 05/21/20 at 0130, STAT [facility] proMETHazin e (PHENERGAN) 25 mg in NaCl 0.9% (NS) 50 mL piggyback 05-21 06:30: 00 05-21 05:34 :00 No 25mg 25 mg, IV Piggyback, ONCE, 1 dose, Ne 05/21/20 at 0130, 50 mL [facility] potassium chloride in water 10 mEq/100 mL 10 mEq piggyback 05-21 05:30: 00 05-21 06:30 :00 No 10meq 10 mEq, IV Piggyback, ONCE, 1 dose, Ne 05/21/20 at 0030 [facility] proCHLORper azine (COMPAZINE) 10 mg in NaCl 0.9% (NS) piggyback 05-21 04:15: 00 05-21 04:15 :00 No 10mg 10 mg, IV Piggyback, ONCE, 1 dose, 05/20/20 at 2315, 50 mL [facility] NaCl 0.9% (NS) bolus infusion 1,000 mL 05-21 04:15: 00 05-21 06:53 :00 No 1000mL at 999 mL/hr, 1,000 mL, IV Infusion, ONCE, 1 dose, Mon05/20/20 at 2315, STAT [facility] losartan 50 mg tablet 05-21 00:00: 00 11-27 00:00 :00 No [id number] 50mg Take 1 tablet by mouth daily. [facility] amLODIPine 5 mg tablet 05-21 00:00: 00 11-02 00:00 :00 No [id number] 5mg Take 1 tablet by mouth daily. [facility] FLUoxetine (PROZAC) 20 mg capsule 05-20 20:11: 39 Yes 20mg Take 20 mg by mouth daily. [facility] metoprolol succinate XL 25 mg 24 hr tablet 05-20 20:11: 39 Yes 25mg Take 25 mg by mouth daily. [facility] proMETHazin e 25 mg tablet 05-20 00:00: 00 12-25 00:00 :00 No [id number] 25mg Take 1 tablet by mouth every 6 (six) hours as needed for Nausea and Vomiting (N/V). [facility] HYDROcodone -acetaminop hen 10-325 mg tablet 05-20 00:00: 00 11-02 00:00 :00 No [id number] 1{tbl} Take 1 tablet by mouth every 6 (six) hours as needed for Pain (scale 7-10). Indication s: acute pain [facility] doxycycline hyclate 100 mg capsule 05-20 00:00: 00 05-26 04:59 :00 No [id number] 100mg Take 1 capsule by mouth 2 (two) times daily for 5 days. [facility] gadobenate dimeglumine (MULTIHANCE -20 mL) injection 12.6 mL 05-19 16:30: 00 05-19 16:30 :00 No .2mL/kg 12.6 mL (0.2 mL/kg ?63 kg), Intravenou s, ONCE, 1 dose, Mon05/19/20 at 1130, Routine [facility] losartan (COZAAR) tablet 50 mg 05-19 14:00: 00 Yes 50mg 50 mg, Oral, DAILY, First dose on Mon05/19/20 at 0900, Until Discontinu ed, Routine [facility] amLODIPine (NORVASC) tablet 5 mg 05-19 14:00: 00 Yes 5mg 5 mg, Oral, DAILY, First dose on Mon05/19/20 at 0900, Until Discontinu ed, Routine [facility] morpHINE injection 2 mg 05-18 17:54: 40 Yes 2mg 2 mg, Slow IV Push, Q4HPRN, Starting Mon05/18/20 at 1254, Until Discontinu ed, Routine, Pain (scale 7-10) [facility] HYDROcodone -acetaminop hen (NORCO 5) 5-325 mg tablet 1 tablet 05-18 15:26: 40 05-18 17:50 :42 No 1{tbl} 1 tablet, Oral, Q6HPRN, Starting Mon05/18/20 at 1026, Until Mon05/18/20 at 1250, Routine, Pain (scale 4-6) [facility] sincalide (KINEVAC) injection 1.1 mcg 05-18 15:00: 00 05-18 15:00 :00 No 1.1ug 1.1 mcg, IV Push, ONCE, 1 dose, Mon05/18/20 at 1000, Routine [facility] tc 99m-mebrofe hammad injection 9.3 millicurie 05-18 13:45: 00 05-18 13:45 :00 No 9.3mCi 9.3 millicurie , Intravenou s, ONCE, 1 dose, 05/18/20 at 0845, Routine [facility] haloperidol lactate (HALDOL) injection 5 mg 05-17 23:00: 00 05-17 22:37 :00 No 5mg 5 mg, Intramuscu lar, ONCE, 1 dose, 05/17/20 at 1800, Routine [facility] ketorolac (TORADOL) injection 15 mg 05-17 20:24: 30 05-18 17:42 :00 No 15mg 15 mg, Slow IV Push, Q6HPRN, 4 doses, Starting 05/17/20 at 1524, Until 05/18/20 at 1242, Routine, Pain (scale 4-6), Pain (scale 7-10)
F aculty member approving Restricted medication : SUNITHA CORRAL [facility] proCHLORper azine (COMPAZINE) 5 mg in NaCl 0.9% (NS) piggyback 05-17 20:23: 37 Yes 5mg 5 mg, IV Piggyback, Q6HPRN, Starting 05/17/20 at 1523, Until Discontinu ed, 50 mL [facility] LORazepam (ATIVAN) injection 0.5 mg 05-17 18:47: 11 Yes .5mg 0.5 mg, Slow IV Push, BIDPRN, Starting Mon05/17/20 at 1347, Until Discontinu ed, Routine, Anxiety [facility] ALPRAZolam (XANAX) tablet 0.5 mg 05-17 17:39: 17 05-17 18:46 :54 No .5mg 0.5 mg, Oral, TIDPRN, Starting 05/17/20 at 1239, Until 05/17/20 at 1346, Routine, anxiety [facility] nicotine (NICODERM) 14 mg/24 hr patch 1 Patch 05-16 19:30: 00 Yes 1{patch } 1 Patch, Topical, Administer over 24 Hours, Q24H, First dose on [facility] 05/16/20 at 1430, Until Discontinu ed, Routine [facility] busPIRone (BUSPAR) tablet 10 mg 05-16 18:30: 00 Yes 10mg 10 mg, Oral, BID, First dose on [facility] 05/16/20 at 1330, Until Discontinu ed, Routine [facility] enoxaparin (LOVENOX) injection 40 mg 05-16 14:00: 00 Yes 40mg 40 mg, Subcutaneo us, DAILY, First dose on [facility] 05/16/20 at 0900, Until Discontinu ed, Routine [facility] metoprolol succinate XL (TOPROL XL) tablet 25 mg 05-16 14:00: 00 Yes 25mg 25 mg, Oral, DAILY, First dose on [facility] 05/16/20 at 0900, Until Discontinu ed, Routine [facility] FLUoxetine (PROZAC) capsule 20 mg 05-16 14:00: 00 Yes 20mg 20 mg, Oral, DAILY, First dose on [facility] 05/16/20 at 0900, Until Discontinu ed, Routine [facility] lipase-prot ease-amylas e (CREON) 12,000-38,0 00 -60,000 unit capsule 1 capsule 05-16 13:00: 00 Yes 1{capsu le} 1 capsule, Oral, TID MEALS, First dose on [facility] 05/16/20 at 0800, Until Discontinu ed, Routine [facility] dicyclomine (BENTYL) injection 20 mg 05-16 13:00: 00 05-16 06:32 :40 No 20mg 20 mg, Intramuscu lar, QID, First dose on [facility] 05/16/20 at 0800, Until Discontinu ed, Routine [facility] proMETHazin e (PHENERGAN) 25 mg in NaCl 0.9% (NS) 50 mL IV piggyback 05-16 12:44: 34 Yes 25mg 25 mg, IV Piggyback, Q4HPRN, Starting 05/16/20 at 0744, Until Discontinu ed, Routine, N/V unresponsi ve to Ondansetro n [facility] hydralAZINE (APRESOLINE ) injection 5 mg 05-16 08:08: 09 Yes 5mg 5 mg, Intravenou s, Q4HPRN, Starting 05/16/20 at 0308, Until Discontinu ed, Routine, sbp > 160 or dbp > 100 [facility] NaCl 0.9% (NS) IV infusion 1,000 mL 05-16 07:00: 00 Yes 1000mL at 100 mL/hr, IV Infusion, CONTINUOUS , Starting 05/16/20 at 0200, Until Discontinu ed, Routine [facility] morpHINE injection 2 mg 05-16 06:56: 47 05-17 12:58 :18 No 2mg 2 mg, Slow IV Push, Q4HPRN, Starting 05/16/20 at 0156, Until 05/17/20 at 0758, Routine, Pain (scale 7-10) [facility] FLUoxetine (PROZAC) 20 mg capsule 05-16 06:53: 16 Yes 20mg Take 20 mg by mouth daily. [facility] metoprolol succinate XL 25 mg 24 hr tablet 05-16 06:53: 16 Yes 25mg Take 25 mg by mouth daily. [facility] traMADol (ULTRAM) tablet 50 mg 05-16 06:30: 02 05-17 12:58 :18 No 50mg 50 mg, Oral, Q8HPRN, Starting 05/16/20 at 0130, Until 05/17/20 at 0758, Routine, Pain (scale 4-6) [facility] famotidine (PEPCID (PF)) injection 20 mg 05-16 06:30: 00 Yes 20mg 20 mg, Slow IV Push, Q12H, First dose on 05/16/20 at 0130, Until Discontinu ed, Routine [facility] acetaminoph en (TYLENOL) tablet 650 mg 05-16 06:29: 54 Yes 650mg 650 mg, Oral, Q6HPRN, Starting 05/16/20 at 0129, Until Discontinu ed, Routine, Pain (scale 1-3) [facility] proCHLORper azine (COMPAZINE) 10 mg in NaCl 0.9% (NS) piggyback 05-16 06:15: 00 05-16 05:14 :00 No 10mg 10 mg, IV Piggyback, ONCE, 1 dose, 05/16/20 at 0115, 50 mL [facility] KCL (POTASSIUM CHLORIDE) 20 mEq in NaCl 0.9% (NS) 100 mL piggyback 05-16 06:14: 00 05-16 07:34 :00 No 20meq 20 mEq, IV Piggyback, ONCE, 1 dose, 05/16/20 at 0115, 100 mL [facility] ondansetron (ZOFRAN (PF)) injection 4 mg 05-16 05:53: 28 Yes 4mg 4 mg, Slow IV Push, Q6HPRN, Starting 05/16/20 at 0053, Until Discontinu ed, Routine, Nausea and Vomiting (N/V) [facility] NaCl 0.9% (NS) bolus infusion 1,000 mL 05-16 05:15: 00 05-16 05:14 :00 No 1000mL at 999 mL/hr, 1,000 mL, IV Infusion, ONCE, 1 dose, 05/16/20 at 0015, [facility] proMETHazin e (PHENERGAN) 25 mg in NaCl 0.9% (NS) 50 mL piggyback 05-16 05:00: 00 05-16 04:23 :00 No 25mg 25 mg, IV Piggyback, ONCE, 1 dose, 05/16/20 at 0000, 50 mL [facility] metoclopram curtis HCl (REGLAN) injection 10 mg 05-16 03:30: 00 05-16 02:23 :00 No 10mg 10 mg, Slow IV Push, ONCE, 1 dose, 05/15/20 at 2230, [facility] haloperidol lactate (HALDOL) injection 2.5 mg 05-16 03:30: 00 05-16 02:23 :00 No 2.5mg 2.5 mg, Intravenou s, ONCE, 1 dose, Mon05/15/20 at 2230, STAT [facility] NaCl 0.9% (NS) bolus infusion 1,000 mL 05-16 02:30: 00 05-16 03:17 :00 No 1000mL at 999 mL/hr, 1,000 mL, IV Infusion, ONCE, 1 dose, Mon05/15/20 at 2130, [facility] proMETHazin e 25 mg tablet 04-23 00:00: 05-20 00:00 :00 No [id number] 25mg Take 1 tablet by mouth every 6 (six) hours as needed for Nausea and Vomiting (N/V). [facility] acetaminoph en-codeine 300-30 mg tablet 04-23 00:00: 05-20 00:00 :00 No [id number] 1{tbl} Take 1 tablet by mouth every 4 (four) hours as needed for Pain (scale 4-6). [facility] FLUoxetine (PROZAC) 20 mg capsule 04-14 19:36: 55 Yes 20mg Take 20 mg by mouth daily. [facility] metoprolol succinate XL 25 mg 24 hr tablet 04-14 19:36: 55 Yes 25mg Take 25 mg by mouth daily. [facility] pantoprazol e 40 mg EC tablet 04-14 00:00: 00 01-12 00:00 :00 No [id number] 40mg Take 1 tablet by mouth daily. [facility] lipase-prot ease-amylas e 12,000-38,0 00 -60,000 unit capsule 04-14 00:00: 00 05-22 00:00 :00 No [id number] 1{capsu le} Take 1 capsule by mouth 3 (three) times daily with meals. [facility] proMETHazin e 25 mg tablet 04-14 00:00: 04-23 00:00 :00 No [id number] 25mg Take 1 tablet by mouth every 4 (four) hours as needed for Nausea and Vomiting (N/V). [facility] acetaminoph en-codeine 300-30 mg tablet 04-14 00:00: 04-23 00:00 :00 No [id number] 1{tbl} Take 1 tablet by mouth every 4 (four) hours as needed for Pain (scale 4-6). [facility] lisinopril 10 mg tablet 04-08 00:00: 05-09 04:59 :00 No [id number] 10mg Take 1 tablet by mouth daily for 30 days. [facility] FLUoxetine (PROZAC) 20 mg capsule 04-07 17:23: 03 Yes 20mg Take 20 mg by mouth daily. [facility] busPIRone 10 mg tablet 04-07 17:23: 03 Yes 10mg Take 10 mg by mouth 2 (two) times daily. [facility] metoprolol succinate XL 25 mg 24 hr tablet 04-07 17:23: 03 Yes 25mg Take 25 mg by mouth daily. [facility] hydralAZINE (APRESOLINE ) injection 10 mg 04-07 15:20: 11 Yes 10mg 10 mg, Intravenou s, PRN - SEE INSTRUCTIO NS, Starting Mon04/07/20 at 1020, Until Discontinu ed, Routine, Hypertensi ve emergency, Hypertensi on, Q4h for SBP>160 or DBP>100 [facility] KCL (KLOR-CON M20) tablet 40 mEq 04-07 14:15: 00 04-07 13:40 :00 No 40meq 40 mEq, Oral, ONCE, 1 dose, Mon04/07/20 at 0915, Routine [facility] lisinopril (PRINIVIL,Z ESTRIL) tablet 10 mg 04-07 14:00: 00 Yes 10mg 10 mg, Oral, DAILY, First dose on Mon04/07/20 at 0900, Until Discontinu ed, Routine [facility] proMETHazin e 25 mg tablet 04-07 00:00: 00 Yes [id number] 25mg Take 1 tablet by mouth every 4 (four) hours as needed for Nausea and Vomiting (N/V). [facility] acetaminoph en-codeine 300-30 mg tablet 04-07 00:00: 00 Yes [id number] 1{tbl} Take 1 tablet by mouth every 4 (four) hours as needed for Pain (scale 4-6). [facility] haloperidol lactate (HALDOL) injection 5 mg 04-06 19:45: 00 04-06 18:46 :00 No 5mg 5 mg, Intravenou s, ONCE, 1 dose, Mon04/06/20 at 1445, STAT [facility] proCHLORper azine (COMPAZINE) injection 5 mg 04-06 14:30: 00 04-06 14:21 :00 No 5mg 5 mg, Slow IV Push, ONCE, 1 dose, Mon04/06/20 at 0930, Routine [facility] enoxaparin (LOVENOX) injection 40 mg 04-06 14:00: 00 Yes 40mg 40 mg, Subcutaneo us, DAILY, First dose on Mon04/06/20 at 0900, Until Discontinu ed, Routine [facility] sennosides (SENOKOT) tablet 8.6 mg 04-06 14:00: 00 Yes 8.6mg 8.6 mg, Oral, DAILY, First dose on Mon04/06/20 at 0900, Until Discontinu ed, Routine [facility] metoprolol succinate XL (TOPROL XL) tablet 25 mg 04-06 14:00: 00 Yes 25mg 25 mg, Oral, DAILY, First dose on Mon04/06/20 at 0900, Until Discontinu ed, Routine [facility] FLUoxetine (PROZAC) capsule 20 mg 04-06 14:00: 00 Yes 20mg 20 mg, Oral, DAILY, First dose on Mon04/06/20 at 0900, Until Discontinu ed, Routine [facility] lipase-prot ease-amylas e (CREON) 12,000-38,0 00 -60,000 unit capsule 1 capsule 04-06 13:00: 00 Yes 1{capsu le} 1 capsule, Oral, TID MEALS, First dose on 04/06/20 at 0800, Until Discontinu ed, Routine [facility] NaCl 0.9% (NS) IV infusion 1,000 mL 04-06 02:00: 00 Yes 1000mL at 75 mL/hr, IV Infusion, CONTINUOUS , Starting 04/05/20 at 2100, Until Discontinu ed, Routine [facility] busPIRone (BUSPAR) tablet 10 mg 04-06 01:00: 00 Yes 10mg 10 mg, Oral, BID, First dose on Mon04/05/20 at 1999, Until Discontinu ed, Routine [facility] pantoprazol e (PROTONIX) 40 mg in NaCl 0.9% (NS) 100 mL MINI-BAG 04-06 01:00: 00 Yes 40mg 40 mg, IV Piggyback, Q12H, First dose on Mon04/05/20 at 2000, Until Discontinu ed, 100 mL [facility] haloperidol lactate (HALDOL) injection 5 mg 04-06 01:00: 00 04-06 00:01 :00 No 5mg 5 mg, Intravenou s, ONCE, 1 dose, [place] 04/05/20 at 2000, STAT [facility] hydralAZINE (APRESOLINE ) injection 10 mg 04-06 00:53: 13 Yes 10mg 10 mg, Intravenou s, Q4HPRN, Starting [place] 04/05/20 at 1953, Until Discontinu ed, Routine, Hypertensi on, sbp > 160 or dbp > 100 [facility] NaCl 0.9% (NS) IV infusion 1,000 mL 04-06 00:45: 00 04-06 00:56 :00 No 1000mL at 999 mL/hr, Intravenou s, ONCE, 1 dose, [place] 04/05/20 at 1945, Routine [facility] morpHINE injection 2 mg 04-06 00:35: 04 Yes 2mg 2 mg, Slow IV Push, Q4HPRN, Starting Mon04/05/20 at 193, Until Discontinu ed, Routine, Pain (scale 7-10) [facility] traMADol (ULTRAM) tablet 50 mg 04-06 00:34: 51 04-08 00:33 :51 No 50mg 50 mg, Oral, Q8HPRN, Starting Mon04/05/20 at 193, Until Tu04/07/20 at 193, Routine, Pain (scale 4-6) [facility] acetaminoph en (TYLENOL) tablet 650 mg 04-06 00:34: 48 Yes 650mg 650 mg, Oral, Q6HPRN, Starting Mon04/05/20 at 193, Until Discontinu ed, Routine, Pain (scale 1-3) [facility] proMETHazin e (PHENERGAN) 25 mg in NaCl 0.9% (NS) 50 mL piggyback 04-06 00:23: 32 Yes 25mg 25 mg, IV Piggyback, Q6HPRN, Starting Mon04/05/20 at 192, Until Discontinu ed, 50 mL [facility] ondansetron (ZOFRAN (PF)) injection 4 mg 04-06 00:23: 24 Yes 4mg 4 mg, Slow IV Push, Q6HPRN, Starting Mon04/05/20 at 192, Until Discontinu ed, Routine, Nausea and Vomiting (N/V) [facility] metoclopram curtis HCl (REGLAN) injection 10 mg 04-06 00:15: 00 04-05 23:14 :00 No 10mg 10 mg, Slow IV Push, ONCE, 1 dose, [place] 04/05/20 at 1915, [place] [facility] iohexol (OMNIPAQUE 350 BULK-150 mL) injection 120 mL 04-05 23:42: 00 04-05 23:42 :00 No 120mL 120 mL, Intravenou s, ONCE, 1 dose, [place] 04/05/20 at 1845, Routine [facility] ketorolac (TORADOL) injection 30 mg 04-05 23:15: 00 04-05 22:14 :00 No 30mg 30 mg, Slow IV Push, ONCE, 1 dose, 04/05/20 at 1815, Routine
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 [facility] traMADol 100 mg 24 hr tablet 03-13 00:00: 00 04-07 00:00 :00 No [id number] 100mg Take 1 tablet by mouth once daily as needed for Pain. [facility] pantoprazol e (PROTONIX) EC tablet 40 mg 03-07 01:00: 00 Yes 40mg 40 mg, Oral, BID, First dose on Mon03/06/20 at 2000, Until Discontinu ed, Routine [facility] FLUoxetine (PROZAC) 20 mg capsule 03-06 22:29: 53 Yes 20mg Take 20 mg by mouth daily. [facility] busPIRone 10 mg tablet 03-06 22:29: 53 Yes 10mg Take 10 mg by mouth 2 (two) times daily. [facility] metoprolol succinate XL 25 mg 24 hr tablet 03-06 22:29: 53 Yes 25mg Take 25 mg by mouth daily. [facility] LORazepam (ATIVAN) injection 03-06 16:30: 00 03-06 16:30 :00 No Slow IV Push, PRN, Starting Mon03/06/20 at 1130, Until Discontinu ed, [facility] ([facility] 03-06 16:05: 00 03-06 16:20 :00 No IV Push, PRN, Starting Mon03/06/20 at 1105, Until Discontinu ed, Routine [facility] FENTanyl PF (SUBLIMAZE (PF)) injection 03-06 15:54: 00 03-06 16:45 :00 No Slow IV Push, PRN, Starting Mon03/06/20 at 1054, Until Discontinu ed, Routine [facility] enoxaparin (LOVENOX) injection 40 mg 03-06 14:00: 00 Yes 40mg 40 mg, Subcutaneo us, DAILY, First dose on Mon03/06/20 at 0900, Until Discontinu ed, Routine [facility] hydralAZINE (APRESOLINE ) injection 5 mg 03-06 02:10: 23 03-06 17:47 :14 No 5mg 5 mg, Intravenou s, Q6HPRN, Starting Mon03/05/20 at 2110, Until Mon03/06/20 at 1247, Routine, Hypertensi on, For SBP greater than 180 or DBP greater than 110 [facility] LORazepam (ATIVAN) injection 0.5 mg 03-06 00:45: 00 03-06 00:14 :00 No .5mg 0.5 mg, Slow IV Push, ONCE, 1 dose, Mon03/05/20 at 1945, Routine [facility] sennosides 8.6 mg tablet 03-06 00:00: 00 Yes [id number] 8.6mg Take 1 tablet by mouth daily. [facility] pantoprazol e 40 mg EC tablet 03-06 00:00: 00 Yes [id number] 40mg Take 1 tablet by mouth 2 (two) times daily. [facility] nicotine 14 mg/24 hr patch 03-06 00:00: 00 Yes [id number] 1{patch } Apply 1 Patch to area(s) daily. [facility] hydrOXYzine 10 mg tablet 03-06 00:00: 00 Yes [id number] 10mg Take 1 tablet by mouth every 6 (six) hours as needed for Anxiety. [facility] HYDROcodone -acetaminop hen 10-325 mg tablet 03-06 00:00: 00 04-07 00:00 :00 No [id number] 1{tbl} Take 1 tablet by mouth every 8 (eight) hours as needed for Pain (scale 7-10). [facility] nicotine (NICODERM) 14 mg/24 hr patch 1 Patch 03-05 03:15: 00 Yes 1{patch } 1 Patch, Topical, Administer over 24 Hours, Q24H, First dose on Mon03/04/20 at 2215, Until Discontinu ed, Routine [facility] magnesium sulfate in water 2 gram/50 mL (4 %) infusion 2 g 03-05 01:30: 00 03-05 02:13 :00 No 2g 2 g, IV Piggyback, ONCE, 1 dose, Mon03/04/20 at 2030, Routine [facility] lactated ringers IV infusion 1,000 mL 03-05 00:45: 00 03-06 17:14 :54 No 1000mL at 100 mL/hr, 1,000 mL, IV Infusion, CONTINUOUS , Starting Mon03/04/20 at 1945, Until Mon03/06/20 at 1214, Routine [facility] KCL (KLOR-CON M20) tablet 20 mEq 03-05 00:45: 00 03-05 00:34 :00 No 20meq 20 mEq, Oral, ONCE, 1 dose, Mon03/04/20 at 1945, Routine [facility] peg-electro lyte soln (GOLYTELY) 236-22.74-6 .74 -5.86 gram solution 4,000 mL 03-05 00:30: 00 03-05 00:34 :00 No 4000mL 4,000 mL, Oral, ONCE, 1 dose, Mon03/04/20 at 1930, Routine [facility] magnesium oxide (MAG-OX 400) tablet 400 mg 03-04 23:45: 00 Yes 400mg 400 mg, Oral, BID, First dose on Mon03/04/20 at 1845, Until Discontinu ed, Routine [facility] metoprolol succinate XL (TOPROL XL) tablet 25 mg 03-04 23:30: 00 Yes 25mg 25 mg, Oral, DAILY, First dose on Mon03/04/20 at 1830, Until Discontinu ed, Routine [facility] FLUoxetine (PROZAC) capsule 20 mg 03-04 23:30: 00 Yes 20mg 20 mg, Oral, DAILY, First dose on Mon03/04/20 at 1830, Until Discontinu ed, Routine [facility] busPIRone (BUSPAR) tablet 10 mg 03-04 23:30: 00 Yes 10mg 10 mg, Oral, BID, First dose on Mon03/04/20 at 1830, Until Discontinu ed, Routine [facility] docusate (COLACE) capsule 100 mg 03-04 23:30: 00 Yes 100mg 100 mg, Oral, BID, First dose on Mon03/04/20 at 1830, Until Discontinu ed, Routine [facility] sennosides (SENOKOT) tablet 8.6 mg 03-04 23:30: 00 Yes 8.6mg 8.6 mg, Oral, BID, First dose on Mon03/04/20 at 1830, Until Discontinu ed, Routine [facility] LORazepam (ATIVAN) injection 0.5 mg 03-04 23:16: 58 03-05 23:18 :52 No .5mg 0.5 mg, Slow IV Push, BIDPRN, Starting Mon03/04/20 at 1816, Until Ne 03/05/20 at 1818, Routine, Anxiety [facility] lactated ringers IV infusion 1,000 mL 03-04 15:30: 00 03-04 23:16 :02 No 1000mL at 100 mL/hr, 1,000 mL, IV Infusion, CONTINUOUS , Starting Mon03/04/20 at 1030, Until Mon03/04/20 at 1816, Routine, PACU [facility] ondansetron (ZOFRAN (PF)) injection 4 mg 03-04 15:15: 19 03-04 15:31 :00 No 4mg 4 mg, Slow IV Push, PRN, 1 dose, Starting Mon03/04/20 at 1015, Until Discontinu ed, Routine, Nausea and Vomiting (N/V), PACU [facility] D5W 0.9% NaCl (NS) IV infusion 1,000 mL 03-03 23:00: 00 03-04 23:41 :28 No 1000mL at 150 mL/hr, 1,000 mL, IV Infusion, CONTINUOUS , Starting Mon03/03/20 at 1800, Until Mon03/04/20 at 1841, Routine [facility] iohexol (OMNIPAQUE 350 BULK-150 mL) injection 120 mL 03-03 22:45: 00 03-03 22:45 :00 No 120mL 120 mL, Intravenou s, ONCE, 1 dose, Mon03/03/20 at 1745, Routine [facility] morpHINE injection 4 mg 03-03 21:59: 08 Yes 4mg 4 mg, Slow IV Push, Q4HPRN, Starting Mon03/03/20 at 1659, Until Discontinu ed, Routine, Pain (scale 7-10) [facility] morpHINE injection 2 mg 03-03 19:30: 00 03-03 21:59 :24 No 2mg 2 mg, Slow IV Push, Q4HPRN, Starting Mon03/03/20 at 1430, Until Mon03/03/20 at 1659, Routine, Pain (scale 7-10) [facility] morpHINE injection 2 mg 03-03 14:47: 44 03-03 19:16 :00 No 2mg 2 mg, Slow IV Push, Q6HPRN, Starting Mon03/03/20 at 0947, Until Mon03/03/20 at 1416, Routine, Pain (scale 7-10) [facility] zolpidem (AMBIEN) tablet 5 mg 03-03 04:13: 06 Yes 5mg 5 mg, Oral, QHSPRN, Starting Mon03/02/20 at 2313, Until Discontinu ed, Routine, Insomnia [facility] pantoprazol e (PROTONIX) 40 mg in NaCl 0.9% (NS) 100 mL MINI-BAG 03-03 01:00: 00 03-06 17:48 :17 No 40mg 40 mg, IV Piggyback, Q12H, First dose on Mon03/02/20 at 2000, Until Discontinu ed, 100 mL [facility] proMETHazin e (PHENERGAN) 25 mg in NaCl 0.9% (NS) 50 mL IV piggyback 03-02 22:40: 41 Yes 25mg 25 mg, IV Piggyback, Q4HPRN, Starting Mon03/02/20 at 1740, Until Discontinu ed, Routine, Nausea and Vomiting (N/V) [facility] D5W 0.45% NaCl (1/2NS) 1 L + KCL 20 mEq 03-02 21:30: 00 03-03 21:52 :49 No IV Infusion, at 150 mL/hr, CONTINUOUS , Starting Mon03/02/20 at 1630, Until Mon03/03/20 at 1652, Routine [facility] metoclopram curtis HCl (REGLAN) injection 10 mg 03-02 18:52: 00 03-02 22:40 :51 No 10mg 10 mg, Slow IV Push, Q6HPRN, Starting Mon03/02/20 at 1352, Until Mon03/02/20 at 1740, PINEDA, Nausea and Vomiting (N/V) [facility] ondansetron (ZOFRAN (PF)) injection 4 mg 03-02 18:51: 45 Yes 4mg 4 mg, Slow IV Push, Q6HPRN, Starting Mon03/02/20 at 1351, Until Discontinu ed, PINEDA, Nausea and Vomiting (N/V) [facility] D5W 0.45% NaCl (1/2NS) 1 L + KCL 20 mEq 03-02 18:45: 00 03-02 21:27 :01 No IV Infusion, at 100 mL/hr, CONTINUOUS , Starting Mon03/02/20 at 1345, Until Mon03/02/20 at 1627, Routine [facility] LORazepam (ATIVAN) injection 0.5 mg 03-02 18:15: 00 03-02 17:46 :00 No .5mg 0.5 mg, Slow IV Push, ONCE, 1 dose, Mon03/02/20 at 1315, STAT [facility] NaCl 0.9% (NS) bolus infusion 1,000 mL 03-02 18:00: 00 03-02 17:47 :00 No 1000mL at 999 mL/hr, 1,000 mL, IV Infusion, ONCE, 1 dose, Mon03/02/20 at 1300, STAT [facility] traMADol (ULTRAM) tablet 50 mg 03-02 17:41: 01 03-04 17:40 :01 No 50mg 50 mg, Oral, Q8HPRN, Starting Mon03/02/20 at 1241, Until Mon03/04/20 at 1240, Routine, Pain (scale 4-6) [facility] acetaminoph en (TYLENOL) tablet 650 mg 03-02 17:40: 59 Yes 650mg 650 mg, Oral, Q6HPRN, Starting Mon03/02/20 at 1240, Until Discontinu ed, Routine, Pain (scale 1-3) [facility] proMETHazin e (PHENERGAN) 12.5 mg in NaCl 0.9% (NS) 50 mL piggyback 03-02 16:30: 00 03-02 15:36 :00 No 12.5mg 12.5 mg, IV Piggyback, ONCE, 1 dose, Mon03/02/20 at 1130, 50 mL [facility] pantoprazol e (PROTONIX) 40 mg in NaCl 0.9% (NS) 100 mL MINI-BAG 03-02 15:45: 00 03-02 14:55 :00 No 40mg 40 mg, IV Piggyback, ONCE, 1 dose, Mon03/02/20 at 1045, 100 mL [facility] metoclopram curtis HCl (REGLAN) injection 10 mg 03-02 15:45: 00 03-02 14:40 :00 No 10mg 10 mg, Slow IV Push, ONCE, 1 dose, Mon03/02/20 at 1045, [facility] NaCl 0.9% (NS) bolus infusion 1,000 mL 03-02 15:30: 00 03-02 14:17 :00 No 1000mL at 999 mL/hr, 1,000 mL, IV Piggyback, ONCE, 1 dose, 03/02/20 at 1030, STAT [facility] ondansetron (ZOFRAN (PF)) injection 4 mg 03-02 15:30: 00 03-02 14:17 :00 No 4mg 4 mg, Slow IV Push, ONCE, 1 dose, 03/02/20 at 1030, [facility] No known medications No Un yogesh [facility] Vital Signs Vital Name Observation Time Observation Value Comments S ource Systolic blood pressure 2024-10-09 19:00:00 181 mm[Hg] [facility] Diastolic blood pressure 2024-10-09 19:00:00 108 mm[Hg] [facility] Heart rate 2024-10-09 19:00:00 83 /min [facility] Respiratory rate 2024-10-09 19:00:00 7 /min [facility] Oxygen saturation in Arterial blood by Pulse oximetry 2024-10-09 19:00:00 97 /min [facility] Body temperature 2024-10-09 16:23:[address] [facility] Body height 2024-10-09 16:23:[address] [facility] Body weight 2024-10-09 16:23:[address] [facility] BMI 2024-10-09 16:23:00 29.18 kg/m2 [facility] Systolic blood pressure 2024-09-19 19:05:00 153 mm[Hg] [facility] Diastolic blood pressure 2024-09-19 19:05:00 100 mm[Hg] [facility] Heart rate 2024-09-19 19:05:00 73 /min [facility] Body temperature 2024-09-19 19:05:[address] [facility] Respiratory rate 2024-09-19 19:05:00 18 /min [facility] Body height 2024-09-19 19:05:[address] [facility] Body weight 2024-09-19 19:05:[address] [facility] BMI 2024-09-19 19:05:00 30.11 kg/m2 [facility] Oxygen saturation in Arterial blood by Pulse oximetry 2024-09-19 19:05:00 99 /min [facility] Systolic blood pressure 2024-09-14 02:45:00 155 mm[Hg] [facility] Diastolic blood pressure 2024-09-14 02:45:00 112 mm[Hg] [facility] Heart rate 2024-09-14 02:45:00 99 /min [facility] Body temperature 2024-09-14 02:45:[address] [facility] Respiratory rate 2024-09-14 02:45:00 16 /min [facility] Oxygen saturation in Arterial blood by Pulse oximetry 2024-09-14 02:45:00 99 /min [facility] Body height 2024-09-14 00:52:[address] [facility] Body weight 2024-09-14 00:52:[address] [facility] BMI 2024-09-14 00:52:00 30.11 kg/m2 [facility] Heart rate 2024-05-27 03:40:00 78 /min [facility] Body temperature 2024-05-27 03:40:[address] [facility] Oxygen saturation in Arterial blood by Pulse oximetry 2024-05-27 03:40:00 96 /min [facility] Systolic blood pressure 2024-05-27 03:21:42 150 mm[Hg] [facility] Diastolic blood pressure 2024-05-27 03:21:42 104 mm[Hg] [facility] Respiratory rate 2024-05-27 03:21:42 16 /min [facility] Body height 2024-05-27 00:54:[address] [facility] Body weight 2024-05-27 00:54:[address] [facility] BMI 2024-05-27 00:54:00 28.80 kg/m2 [facility] WEIGHT 2024-05-21 19:42:00 76.484997 kg HEIGHT 2024-05-21 19:42:00 162.56 cm Body Temperature 2024-05-26 13:00:00 98.0 [degF] [facility] Heart Rate 2024-05-26 13:00:00 79 /min [facility] Respiratory rate 2024-05-26 13:00:00 16 /min [facility] Oxygen saturation by Pulse oximetry 2024-05-26 13:00:00 97 /min [facility] BP Systolic 2024-05-26 13:00:00 183 mm[Hg] [facility] BP Diastolic 2024-05-26 13:00:00 105 mm[Hg] [facility] Height 2024-05-21 19:35:00 162.56 cm [facility] Weight 2024-05-21 19:35:00 76.79 kg [facility] BMI (Body Mass Index) 2024-05-21 19:35:00 29.0 kg/m2 [facility] Systolic blood pressure 2024-05-05 22:40:00 174 mm[Hg] Dr. Romero notifed of BP, adia to discharge [facility] Diastolic blood pressure 2024-05-05 22:40:00 98 mm[Hg] Dr. Romero notifed of BP, okay to discharge [facility] Heart rate 2024-05-05 22:40:00 59 /min [facility] Body temperature 2024-05-05 22:40:[address] [facility] Respiratory rate 2024-05-05 22:40:00 6 /min [facility] Oxygen saturation in Arterial blood by Pulse oximetry 2024-05-05 22:40:00 97 /min [facility] Body height 2024-05-05 18:38:[address] [facility] Body weight 2024-05-05 18:38:[address] [facility] BMI 2024-05-05 18:38:00 27.46 kg/m2 [facility] Systolic blood pressure 2024-01-23 21:34:00 131 mm[Hg] [facility] Diastolic blood pressure 2024-01-23 21:34:00 86 mm[Hg] [facility] Heart rate 2024-01-23 21:34:00 86 /min [facility] Body temperature 2024-01-23 21:34:[address] [facility] Respiratory rate 2024-01-23 21:34:00 17 /min [facility] Oxygen saturation in Arterial blood by Pulse oximetry 2024-01-23 21:34:00 92 /min [facility] Body weight 2024-01-22 08:25:[address] [facility] BMI 2024-01-22 08:25:00 34.81 kg/m2 [facility] Body height 2024-01-21 04:06:[address] [facility] Heart rate 2023-11-05 17:44:00 82 /min [facility] Oxygen saturation in Arterial blood by Pulse oximetry 2023-11-05 17:44:00 99 /min [facility] Systolic blood pressure 2023-11-05 17:43:00 139 mm[Hg] [facility] Diastolic blood pressure 2023-11-05 17:43:00 84 mm[Hg] [facility] Body temperature 2023-11-05 17:43:[address] [facility] Body weight 2023-11-05 10:19:[address] [facility] BMI 2023-11-05 10:19:00 35.73 kg/m2 [facility] Respiratory rate 2023-11-04 14:35:00 25 /min [facility] Body height 2023-11-04 08:00:[address] [facility] Systolic blood pressure 2023-09-15 15:28:00 167 mm[Hg] [facility] Diastolic blood pressure 2023-09-15 15:28:00 88 mm[Hg] [facility] Heart rate 2023-09-15 15:28:00 91 /min [facility] Respiratory rate 2023-09-15 15:28:00 11 /min [facility] Oxygen saturation in Arterial blood by Pulse oximetry 2023-09-15 15:28:00 98 /min [facility] Body temperature 2023-09-15 14:06:[address] [facility] Body height 2023-09-15 14:06:[address] [facility] Body weight 2023-09-15 14:06:[address] [facility] BMI 2023-09-15 14:06:00 30.90 kg/m2 [facility] Systolic blood pressure 2021-04-30 07:00:00 126 mm[Hg] [facility] Diastolic blood pressure 2021-04-30 07:00:00 78 mm[Hg] [facility] Heart rate 2021-04-30 07:00:00 81 /min [facility] Respiratory rate 2021-04-30 07:00:00 20 /min [facility] Oxygen saturation in Arterial blood by Pulse oximetry 2021-04-30 07:00:00 96 /min [facility] Body temperature 2021-04-30 04:54:[address] [facility] Body height 2021-04-30 04:54:[address] [facility] Body weight 2021-04-30 04:54:[address] [facility] BMI 2021-04-30 04:54:00 22.14 kg/m2 [facility] Systolic blood pressure 2021-04-20 16:36:00 126 mm[Hg] [facility] Diastolic blood pressure 2021-04-20 16:36:00 95 mm[Hg] [facility] Heart rate 2021-04-20 16:36:00 68 /min [facility] Body temperature 2021-04-20 16:36:[address] [facility] Respiratory rate 2021-04-20 16:36:00 18 /min [facility] Oxygen saturation in Arterial blood by Pulse oximetry 2021-04-20 16:36:00 97 /min [facility] Body weight 2021-04-19 09:13:[address] [facility] BMI 2021-04-19 09:13:00 25.55 kg/m2 [facility] Body height 2021-04-18 20:39:[address] [facility] Systolic blood pressure 2021-03-10 12:16:00 139 mm[Hg] [facility] Diastolic blood pressure 2021-03-10 12:16:00 94 mm[Hg] [facility] Heart rate 2021-03-10 12:16:00 70 /min [facility] Body temperature 2021-03-10 12:16:[address] [facility] Respiratory rate 2021-03-10 12:16:00 18 /min [facility] Oxygen saturation in Arterial blood by Pulse oximetry 2021-03-10 12:16:00 95 /min [facility] Body height 2021-03-07 19:45:[address] [facility] Body weight 2021-03-07 19:45:[address] [facility] BMI 2021-03-07 19:45:00 25.69 kg/m2 [facility] Systolic blood pressure 2021-01-23 13:23:00 141 mm[Hg] [facility] Diastolic blood pressure 2021-01-23 13:23:00 80 mm[Hg] [facility] Heart rate 2021-01-23 13:23:00 95 /min [facility] Body temperature 2021-01-23 13:23:[address] [facility] Respiratory rate 2021-01-23 13:23:00 18 /min [facility] Oxygen saturation in Arterial blood by Pulse oximetry 2021-01-23 13:23:00 96 /min [facility] Body height 2021-01-23 03:00:[address] [facility] Body weight 2021-01-23 03:00:[address] [facility] BMI 2021-01-23 03:00:00 25.74 kg/m2 [facility] Systolic blood pressure 2020-11-02 17:18:00 144 mm[Hg] [facility] Diastolic blood pressure 2020-11-02 17:18:00 97 mm[Hg] [facility] Heart rate 2020-11-02 17:18:00 93 /min [facility] Body temperature 2020-11-02 17:18:[address] [facility] Respiratory rate 2020-11-02 17:18:00 20 /min [facility] Oxygen saturation in Arterial blood by Pulse oximetry 2020-11-02 17:18:00 96 /min [facility] Body weight 2020-11-02 09:29:[address] [facility] BMI 2020-11-02 09:29:00 25.74 kg/m2 [facility] Body height 2020-10-28 22:57:[address] [facility] Systolic blood pressure 2020-09-30 17:45:00 143 mm[Hg] [facility] Diastolic blood pressure 2020-09-30 17:45:00 85 mm[Hg] [facility] Heart rate 2020-09-30 17:45:00 70 /min [facility] Body temperature 2020-09-30 17:45:[address] [facility] Respiratory rate 2020-09-30 17:45:00 18 /min [facility] Oxygen saturation in Arterial blood by Pulse oximetry 2020-09-30 17:45:00 100 /min [facility] Body weight 2020-09-30 10:10:[address] [facility] BMI 2020-09-30 10:10:00 26.94 kg/m2 [facility] Body height 2020-09-28 22:42:[address] [facility] Systolic blood pressure 2020-08-05 16:00:00 132 mm[Hg] [facility] Diastolic blood pressure 2020-08-05 16:00:00 78 mm[Hg] [facility] Heart rate 2020-08-05 16:00:00 57 /min [facility] Respiratory rate 2020-08-05 16:00:00 18 /min [facility] Oxygen saturation in Arterial blood by Pulse oximetry 2020-08-05 16:00:00 97 /min [facility] Body temperature 2020-08-05 15:25:[address] [facility] Body weight 2020-08-05 12:00:[address] [facility] BMI 2020-08-05 12:00:00 25.69 kg/m2 [facility] Systolic blood pressure 2020-08-03 19:00:00 141 mm[Hg] [facility] Diastolic blood pressure 2020-08-03 19:00:00 83 mm[Hg] [facility] Heart rate 2020-08-03 19:00:00 77 /min [facility] Body temperature 2020-08-03 19:00:[address] [facility] Respiratory rate 2020-08-03 19:00:00 23 /min [facility] Oxygen saturation in Arterial blood by Pulse oximetry 2020-08-03 19:00:00 96 /min [facility] Body weight 2020-08-03 14:04:[address] [facility] BMI 2020-08-03 14:04:00 25.69 kg/m2 [facility] Systolic blood pressure 2020-05-22 16:30:00 129 mm[Hg] [facility] Diastolic blood pressure 2020-05-22 16:30:00 93 mm[Hg] [facility] Heart rate 2020-05-22 16:30:00 74 /min [facility] Body temperature 2020-05-22 16:30:[address] [facility] Respiratory rate 2020-05-22 16:30:00 18 /min [facility] Oxygen saturation in Arterial blood by Pulse oximetry 2020-05-22 16:30:00 99 /min [facility] Body weight 2020-05-22 09:09:[address] [facility] BMI 2020-05-22 09:09:00 24.62 kg/m2 [facility] Systolic blood pressure 2020-05-20 16:01:00 153 mm[Hg] [facility] Diastolic blood pressure 2020-05-20 16:01:00 94 mm[Hg] [facility] Heart rate 2020-05-20 16:01:00 86 /min [facility] Body temperature 2020-05-20 16:01:[address] [facility] Respiratory rate 2020-05-20 16:01:00 18 /min [facility] Oxygen saturation in Arterial blood by Pulse oximetry 2020-05-20 16:01:00 98 /min [facility] Body weight 2020-05-20 09:00:[address] [facility] BMI 2020-05-20 09:00:00 25.17 kg/m2 [facility] Body height 2020-05-16 07:01:[address] [facility] Systolic blood pressure 2020-04-07 15:39:00 146 mm[Hg] [facility] Diastolic blood pressure 2020-04-07 15:39:00 78 mm[Hg] [facility] Heart rate 2020-04-07 15:39:00 68 /min [facility] Body temperature 2020-04-07 15:39:[address] [facility] Respiratory rate 2020-04-07 15:39:00 18 /min [facility] Oxygen saturation in Arterial blood by Pulse oximetry 2020-04-07 15:39:00 98 /min [facility] Body weight 2020-04-07 09:01:[address] [facility] BMI 2020-04-07 09:01:00 21.69 kg/m2 [facility] Body height 2020-04-05 22:08:[address] [facility] Systolic blood pressure 2020-03-06 17:33:00 146 mm[Hg] [facility] Diastolic blood pressure 2020-03-06 17:33:00 96 mm[Hg] [facility] Heart rate 2020-03-06 17:33:00 73 /min [facility] Body temperature 2020-03-06 17:33:[address] [facility] Respiratory rate 2020-03-06 17:33:00 18 /min [facility] Oxygen saturation in Arterial blood by Pulse oximetry 2020-03-06 17:33:00 99 /min [facility] Body height 2020-03-06 14:20:[address] [facility] Body weight 2020-03-06 14:20:[address] [facility] BMI 2020-03-06 14:20:00 24.45 kg/m2 [facility] Procedures Procedure Date / Time Performed Performing Clinician Source CT ABDOMEN PELVIS W CONTRAST 2024-10-09 18:36:[address] [facility] URINALYSIS 2024-10-09 18:08:[address] [facility] POCT TEST 2024-10-09 18:08:[address] [facility] XR CHEST 1 VW 2024-10-09 16:51:[address] [facility] LIPASE 2024-10-09 16:42:[address] [facility] TROPONIN I 2024-10-09 16:42:[address] [facility] COMP. METABOLIC PANEL (83846) 2024-10-09 16:42:[address] [facility] CBC WITH DIFF 2024-10-09 16:42:[address] [facility] EKG-12 LEAD 2024-09-14 02:47:[address] [facility] XR CHEST 1 VW 2024-09-14 02:05:25 Jimbo Romero [facility] LIPASE 2024-09-14 01:10:00 Heather [facility] TROPONIN I 2024-09-14 01:10:00 Jimbo Romero [facility] COMP. METABOLIC PANEL ([id number]) 2024-09-14 01:10:00 Jimbo Romero [facility] CBC WITH DIFF 2024-09-14 01:10:[address] [facility] CT ABDOMEN PELVIS WO CONTRAST 2024-05-27 01:50:[address] [facility] LIPASE 2024-05-27 01:29:[address] [facility] COMP. METABOLIC PANEL ([id number]) 2024-05-27 01:29:[address] [facility] CBC WITH DIFF 2024-05-27 01:29:[address] [facility] URINALYSIS 2024-05-27 01:29:[address] [facility] LACTIC ACID WHOLE BLOOD 2024-05-27 01:29:[address] [facility] MRI Lumbar Spine WO Con 2024-05-22 04:06:[address] [facility] [address] ABDOMEN PELVIS W CONTRAST 2024-05-05 20:43:00 Heather [facility] URINALYSIS 2024-05-05 19:38:00 Heather [facility] LIPASE 2024-05-05 19:17:00 Heather [facility] TROPONIN I 2024-05-05 19:17:00 Heather [facility] COMP. METABOLIC PANEL ([id number]) 2024-05-05 19:17:00 Heather [facility] CBC WITH DIFF 2024-05-05 19:17:00 Heather [facility] HB ECG ROUTINE & RHYTHM STRIP 2024-05-05 18:43:44 Heather [facility] PHOSPHORUS 2024-01-23 09:43:00 Justin Licea [facility] MAGNESIUM 2024-01-23 09:43:00 Justin Licea [facility] BASIC METABOLIC PANEL (NA, K , CL, CO2, GLUCOSE, BUN, CREATININE, CA) 2024-01-23 09:43:00 Justin Licea [facility] CBC WITH DIFF 2024-01-23 09:43:00 Justin Licea [facility] PHOSPHORUS 2024-01-22 08:39:00 Elham [facility] MAGNESIUM 2024-01-22 08:39:00 Elham [facility] BASIC METABOLIC PANEL (NA, K , CL, CO2, GLUCOSE, BUN, CREATININE, CA) 2024-01-22 08:39:00 Elham [facility] CBC WITH DIFF 2024-01-22 08:39:00 Elham [facility] PHOSPHORUS 2024-01-21 11:31:00 Elham [facility] MAGNESIUM 2024-01-21 11:31:00 Elham [facility] BASIC METABOLIC PANEL (NA, K , CL, CO2, GLUCOSE, BUN, CREATININE, CA) 2024-01-21 11:31:[address] [facility] CBC WITH DIFF 2024-01-21 09:10:[address] [facility] CT ABDOMEN PELVIS W CONTRAST 2024-01-20 22:34:[facility] MAXILLOFACIAL/MANDIBLE W CONTRAST 2024-01-20 22:34:[address] [facility] ASSIGNMENT OF BENEFITS 2024-01-20 21:55:58 Doctor Unassigned, [place] [facility] LIPASE 2024-01-20 21:54:[address] [facility] [facility] COMP. METABOLIC PANEL ([id number]) 2024-01-20 21:54:[address] [facility] [facility] ETHANOL 2024-01-20 21:54:00 Sandro [facility] CBC WITH DIFF 2024-01-20 21:54:00 Sandro [facility] URINALYSIS 2024-01-20 21:54:00 Sandro [facility] POCT TEST 2024-01-20 21:54:[address] [facility] [facility] LIPASE 2023-11-05 09:27:[address] [facility] MAGNESIUM 2023-11-05 09:27:[address] [facility] HEPATIC FUNCTION PANEL (8007 [id number]) (ALB,T.PRO,BILI T,BU/BC,ALT,AST,ALK PHOS) 2023-11-05 09:27:[facility] (NA, K , CL, CO2, GLUCOSE, BUN, CREATININE, CA) 2023-11-05 09:27:[address] [facility] CBC WITH DIFF 2023-11-05 09:27:[address] [facility] LIPASE 2023-11-04 17:01:[address] [facility] MAGNESIUM 2023-11-04 17:01:[address] [facility] HEPATIC FUNCTION PANEL (8007 6) (ALB,T.PRO,BILI T,BU/BC,ALT,AST,ALK PHOS) 2023-11-04 17:01:[address] [facility] COMP. METABOLIC PANEL ([id number]) 2023-11-04 17:01:[address] [facility] LIPID PANEL ([id number])(TOTAL CHOLESTEROL, TRIGLYCERIDES, HDL) 2023-11-04 17:01:[address] [facility] PHOSPHORUS 2023-11-04 04:54:[address] [facility] LIPASE 2023-11-04 04:54:[address] [facility] MAGNESIUM 2023-11-04 04:54:[address] [facility] TROPONIN I 2023-11-04 04:54:[address] [facility] HEPATIC FUNCTION PANEL (8007 6) (ALB,T.PRO,BILI T,BU/BC,ALT,AST,ALK PHOS) 2023-11-04 04:54:[address] [facility] COMP. METABOLIC PANEL ([id number]) 2023-11-04 04:54:[address] [facility] CBC WITH DIFF 2023-11-04 04:54:[address] [facility] EKG-12 LEAD 2023-09-15 15:41:[address] [facility] XR CHEST 1 VW 2023-09-15 14:25:[address] [facility] TROPONIN I 2023-09-15 14:22:[address] [facility] COMP. METABOLIC PANEL ([id number]) 2023-09-15 14:22:[address] [facility] CBC WITH DIFF 2023-09-15 14:22:[address] [facility] RAPID INFLUENZA A/B 2023-09-15 14:22:[address] [facility] N-TERMINAL PRO-BNP 2023-09-15 14:22:[address] [facility] COVID-19 (ID NOW RAPID TESTING) 14:22:[address] [facility] CONSENT/REFUSAL FOR DIAGNOSI S AND TREATMENT 2023-09-15 14:02:33 Doctor Unassigned, [place] [facility] CT ABDOMEN PELVIS W CONTRAST 2021-04-30 06:57:[address] [facility] XR CHEST 1 VW 2021-04-30 05:13:[address] [facility] LIPASE 2021-04-30 05:00:[address] [facility] TROPONIN I 2021-04-30 05:00:[address] [facility] COMP. METABOLIC PANEL ([id number]) 2021-04-30 05:00:[address] [facility] CBC WITH DIFF 2021-04-30 05:00:[address] [facility] COVID-19 (ID NOW RAPID TESTING) 05:00:[address] [facility] LIPASE 2021-04-20 08:45:[address] [facility] MAGNESIUM 2021-04-20 08:45:[address] [facility] BASIC METABOLIC PANEL (NA, K , CL, CO2, GLUCOSE, BUN, CREATININE, CA) 2021-04-20 08:45:[address] [facility] CBC WITH DIFF 2021-04-20 08:45:[address] [facility] FECAL LEUKOCYTES 2021-04-19 09:35:[address] [facility] MAGNESIUM 2021-04-19 08:59:[address] [facility] BASIC METABOLIC PANEL (NA, K , CL, CO2, GLUCOSE, BUN, CREATININE, CA) 2021-04-19 08:59:[address] [facility] CBC WITH DIFF 2021-04-19 08:59:[address] [facility] PHOSPHORUS 2021-04-18 21:55:[address] [facility] LACTIC ACID WHOLE BLOOD 2021-04-18 21:55:[address] [facility] PROCALCITONIN 2021-04-18 21:55:[address] [facility] BLOOD CULTURE SCREEN 2021-04-18 17:37:[address] [facility] LACTIC ACID WHOLE BLOOD 2021-04-18 17:34:[address] [facility] BLOOD CULTURE SCREEN 2021-04-18 17:17:[address] [facility] CT ABDOMEN PELVIS W CONTRAST 2021-04-18 17:01:[address] [facility] POCT TEST 2021-04-18 16:45:[address] [facility] URINE DRUG (IMMUNOASSAY) - COMPREHENSIVE DRUG SCREEN 2021-04-18 16:39:[address] [facility] URINALYSIS 2021-04-18 16:39:[address] [facility] URINE CULTURE 2021-04-18 16:39:[address] [facility] COVID-19 (ID NOW RAPID TESTING) 15:59:[address] [facility] LAB ONLY COVID INTERPRETATION 2021-04-18 15:59:[address] [facility] LIPASE 2021-04-18 15:55:[address] [facility] COMP. METABOLIC PANEL ([id number]) 2021-04-18 15:55:[address] [facility] ETHANOL 2021-04-18 15:55:[address] [facility] CBC WITH DIFF 2021-04-18 15:55:[address] [facility] CBC WITH DIFF 2021-03-10 09:07:[address] [facility] LACTIC ACID WHOLE BLOOD 2021-03-08 09:53:[address] [facility] BASIC METABOLIC PANEL (NA, K , CL, CO2, GLUCOSE, BUN, CREATININE, CA) 2021-03-08 09:52:[address] [facility] CBC WITH DIFF 2021-03-08 09:52:00 Alex [facility] LACTIC ACID WHOLE BLOOD 2021-03-07 22:42:[address] [facility] TEST, URINE 2021-03-07 18:03:[address] [facility] URINE DRUG (IMMUNOASSAY) - 4 ER PANEL 2021-03-07 18:03:00 [facility] 2021-03-07 17:50:[address] [facility] LACTIC ACID WHOLE BLOOD 2021-03-07 17:33:00 [facility]EN 2021-03-07 17:30:[address] [facility] CT ABDOMEN PELVIS W CONTRAST 2021-03-07 17:25:[address] [facility] HB ECG ROUTINE & RHYTHM STRIP 2021-03-07 16:43:[address] [facility] COVID-19 (ID NOW RAPID TESTING) 16:33:[address] [facility] LIPASE 2021-03-07 16:30:[address] [facility] HEPATIC FUNCTION PANEL (8007 [id number]) (ALB,T.PRO,BILI T,BU/BC,ALT,AST,ALK PHOS) 2021-03-07 16:30:[address] [facility] BASIC METABOLIC PANEL (NA, K , CL, CO2, GLUCOSE, BUN, CREATININE, CA) 2021-03-07 16:30:[address] [facility] ETHANOL 2021-03-07 16:30:[address] [facility] CBC WITH DIFF 2021-03-07 16:30:00 [facility] / [facility] 2021-03-07 16:30:00 [facility] ACTIVATED PARTIAL THRMPLAS HUMBERTO 2021-02-12 5 16:30:00 [facility], [facility]INE 2021-01-23 11:30:00 Beto [facility] MAGNESIUM 2021-01-23 10:53:00 Claudine [facility] COMP. METABOLIC PANEL ([id number]) 2021-01-23 10:53:00 Beto [facility] ETHANOL 2021-01-23 10:53:00 Claudine [facility] CBC WITH DIFF 2021-01-23 10:53:00 Beto [facility] GLYCOSYLATED HEMOGLOBIN (A1C) 2021-01-23 10:53:00 Claudine [facility] US ABDOMEN LIMITED 2021-01-23 06:30:00 Beto [facility] HB ECG ROUTINE & RHYTHM STRIP 2021-01-22 23:53:07 [facility] ADC / LCC - DRUG SCREEN TRIAGE 2021-01-11 2 23:35:00 [facility] COVID-19 (ID NOW RAPID TESTING) 22:45:[address] [facility] [address] ABDOMEN PELVIS W CONTRAST 2021-01-22 21:13:48 [facility] URINALYSIS 2021-01-22 20:07:00 [facility] LIPASE 2021-01-22 19:54:00 [facility] COMP. METABOLIC PANEL ([id number]) 2021-01-22 19:54:00 [facility] CBC WITHOUT DIFF 2021-01-22 19:54:00 [facility] COMP. METABOLIC PANEL ([id number]) 2020-11-02 10:13:[address] [facility] CBC WITH DIFF 2020-11-02 10:13:[address] [facility] MAGNESIUM 2020-10-31 09:59:[address] [facility] BASIC METABOLIC PANEL (NA, K , CL, CO2, GLUCOSE, BUN, CREATININE, CA) 2020-10-31 09:59:[address] [facility] CBC WITH DIFF 2020-10-31 09:59:[address] [facility] MAGNESIUM 2020-10-30 11:41:[address] [facility] BASIC METABOLIC PANEL (NA, K , CL, CO2, GLUCOSE, BUN, CREATININE, CA) 2020-10-30 11:41:[address] [facility] CBC WITH DIFF 2020-10-30 11:41:[address] [facility] FECES CULTURE 2020-10-29 22:54:00 Arnoldo [facility] CLOSTRIDIUM DIFFICILE TOXIN 2020-10-29 22:54:00 Arnoldo [facility] FECAL PATHOGENS BY PCR 2020-10-29 22:54:[address] [facility] CBC WITH DIFF 2020-10-29 13:43:00 Arnoldo [facility] PHOSPHORUS 2020-10-29 12:30:[address] [facility] MAGNESIUM 2020-10-29 12:30:00 Arnoldo [facility] BASIC METABOLIC PANEL (NA, K , CL, CO2, GLUCOSE, BUN, CREATININE, CA) 2020-10-29 12:30:[address] [facility] COVID-19 (ID NOW RAPID TESTING) 19:49:[address] [facility] LAB ONLY COVID INTERPRETATION 2020-10-28 19:49:[address] [facility] URINALYSIS 2020-10-28 18:06:[address] [facility] ADC / LCC - DRUG SCREEN TRIAGE 2020-10-13 6 18:06:[address] [facility] CT ABDOMEN PELVIS W CONTRAST 2020-10-28 17:42:[address] [facility] HB ECG ROUTINE & RHYTHM STRIP 2020-10-28 17:05:[address] [facility] LIPASE 2020-10-28 16:54:00 Evelin [facility] TROPONIN I 2020-10-28 16:54:00 Evelin [facility] HEPATIC FUNCTION PANEL (8007 [id number]) (ALB,T.PRO,BILI T,BU/BC,ALT,AST,ALK PHOS) 2020-10-28 16:54:00 Evelin [facility] BASIC METABOLIC PANEL (NA, K , CL, CO2, GLUCOSE, BUN, CREATININE, CA) 2020-10-28 16:54:[address] [facility] ETHANOL 2020-10-28 16:54:00 Leona [facility] CBC WITH DIFF 2020-10-28 16:54:00 Leona [facility] HOSPITAL ADM - MISC 2020-10-28 06:01:00 Doctor Unassigned, [place] [facility] PHOSPHORUS 2020-09-30 10:31:00 Delio [facility] MAGNESIUM 2020-09-30 10:31:00 Delio [facility] COMP. METABOLIC PANEL ([id number]) 2020-09-30 10:31:00 Delio [facility] CBC WITH DIFF 2020-09-30 10:31:00 Delio [facility] BLOOD CULTURE SCREEN 2020-09-30 03:42:00 Delio [facility] BLOOD CULTURE SCREEN 2020-09-30 03:04:00 Delio [facility] PROCALCITONIN 2020-09-30 03:04:00 Delio [facility] CLOSTRIDIUM DIFFICILE TOXIN 2020-09-29 19:48:[address] [facility] LIPASE 2020-09-29 10:32:00 Delio [facility] MAGNESIUM 2020-09-29 10:32:00 Delio [facility] BASIC METABOLIC PANEL (NA, K , CL, CO2, GLUCOSE, BUN, CREATININE, CA) 2020-09-29 10:32:[address] [facility] SEDIMENTATION RATE 2020-09-29 10:32:[address] [facility] CBC WITH DIFF 2020-09-29 10:32:[address] [facility] LACTIC ACID WHOLE BLOOD 2020-09-29 05:26:[address] [facility] COVID-19 (ID NOW RAPID TESTING) 21:09:[address] [facility] LACTIC ACID WHOLE BLOOD 2020-09-28 20:59:[address] [facility] BLOOD CULTURE SCREEN 2020-09-28 20:58:[address] [facility] BLOOD CULTURE WORKUP 2020-09-28 20:58:[address] [facility] GRAM POSITIVE BLOOD PATHOGEN S DNA PROBE-AEROBIC 2020-09-28 20:58:00 Tarun [facility] URINALYSIS 2020-09-28 19:53:00 [facility] - DRUG SCREEN TRIAGE 2020-09-13 6 19:52:00 [facility] PELVIS W CONTRAST 2020-09-28 19:44:[address] [facility] LIPASE 2020-09-28 17:55:00 [facility] TEST, SERUM 2020-09-28 17:55:00 Tarun [facility] TROPONIN I 2020-09-28 17:55:00 Tarun [facility] HEPATIC FUNCTION PANEL (8007 [id number]) (ALB,T.PRO,BILI T,BU/BC,ALT,AST,ALK PHOS) 2020-09-28 17:55:00 [facility] BASIC METABOLIC PANEL (NA, K , CL, CO2, GLUCOSE, BUN, CREATININE, CA) 2020-09-28 17:55:[address] [facility] ETHANOL 2020-09-28 17:55:00 [facility] WITH DIFF 2020-09-28 17:55:00 [facility] PROT[facility]BIN TIME / INR 2020-09-28 17:55:[address] [facility] ACTIVATED PARTIAL THRMPLAS HUMBERTO 2020-11-1 6 17:55:[address] [facility] EMERGENCY DEPARTMENT DOCUMENTS 2020-09-13 6 06:01:00 Doctor Unassigned, [place] [facility] URINALYSIS 2020-08-05 16:45:00 Singer [facility] LIPASE 2020-08-05 15:45:00 Singer [facility] COMP. METABOLIC PANEL ([id number]) 2020-08-05 15:45:00 Singer [facility] LIPID PANEL ([id number])(TOTAL CHOLESTEROL, TRIGLYCERIDES, HDL) 2020-08-05 15:45:00 Singer [facility] CBC WITH DIFF 2020-08-05 15:45:00 Singer [facility] LACTIC ACID WHOLE BLOOD 2020-08-03 17:49:00 Singer [facility] URINALYSIS 2020-08-03 16:15:00 Singer [facility] CT ABDOMEN PELVIS W CONTRAST 2020-08-03 15:15:44 Singer [facility] COVID-19 (ID NOW RAPID TESTING) 14:12:00 Singer [facility] LIPASE 2020-08-03 14:11:00 Singer [facility] COMP. METABOLIC PANEL ([id number]) 2020-08-03 14:11:00 Singer [facility] LIPID PANEL ([id number])(TOTAL CHOLESTEROL, TRIGLYCERIDES, HDL) 2020-08-03 14:11:00 Singer [facility] CBC WITH DIFF 2020-08-03 14:11:00 Singer [facility] GLYCOSYLATED HEMOGLOBIN (A1C) 2020-08-03 14:11:00 Singer [facility] LACTIC ACID WHOLE BLOOD 2020-08-03 14:10:00 Singer [facility] PHOSPHORUS 2020-05-22 06:20:[address] [facility] [facility]UM 2020-05-22 06:20:00 Arnoldo [facility] BASIC METABOLIC PANEL (NA, K , CL, CO2, GLUCOSE, BUN, CREATININE, CA) 2020-05-22 06:20:[address] [facility] CBC WITH DIFFERENTIAL 2020-05-22 06:20:[address] [facility] MAGNESIUM 2020-05-21 18:31:[address] [facility] BASIC METABOLIC PANEL (NA, K , CL, CO2, GLUCOSE, BUN, CREATININE, CA) 2020-05-21 18:31:[address] [facility] COVID-19 (ID NOW RAPID TESTING) 05:14:[address] [facility] LIPASE 2020-05-21 03:22:[address] [facility] MAGNESIUM 2020-05-21 03:22:[address] [facility] COMP. METABOLIC PANEL (54731) 2020-05-21 03:22:[address] [facility] CBC WITH DIFFERENTIAL 2020-05-21 03:22:[address] [facility] MR ABDOMEN W WO CONTRAST MRCP 2020-05-19 16:24:[address] [facility] NM HEPATOBILIARY W INTERVENTION 15:10:[address] [facility] BASIC METABOLIC PANEL (NA, K , CL, CO2, GLUCOSE, BUN, CREATININE, CA) 2020-05-17 08:59:00 Srinath [facility] CBC WITH DIFFERENTIAL 2020-05-17 08:59:[address] [facility] ADC / LCC - DRUG SCREEN TRIAGE 4 06:51:00 Srinath [facility] XR KUB 2020-05-16 06:40:53 Srinath [facility] COVID-19 (ID NOW RAPID TESTING) 05:01:[address] [facility] URINALYSIS 2020-05-16 04:23:[address] [facility] LIPASE 2020-05-16 02:22:[address] [facility] HEPATIC FUNCTION PANEL (8007 6) (ALB,T.PRO,BILI T,BU/BC,ALT,AST,ALK PHOS) 2020-05-16 02:22:[address] [facility] BASIC METABOLIC PANEL (NA, K , CL, CO2, GLUCOSE, BUN, CREATININE, CA) 2020-05-16 02:22:[address] [facility] CBC WITH DIFFERENTIAL 2020-05-16 02:22:[address] [facility] EMERGENCY DEPARTMENT DOCUMENTS 3 05:01:00 Doctor Unassigned, [place] [facility] BASIC METABOLIC PANEL (NA, K , CL, CO2, GLUCOSE, BUN, CREATININE, CA) 2020-04-07 08:50:[address] [facility] CBC WITH DIFFERENTIAL 2020-04-07 08:50:[address] [facility] POCT GLUCOSE (AUTOMATED) 2020-04-06 16:18:00 [facility] 2020-04-06 13:43:[address] [facility] BASIC METABOLIC PANEL (NA, K , CL, CO2, GLUCOSE, BUN, CREATININE, CA) 2020-04-06 08:06:[address] [facility] COVID-19 (ID NOW RAPID TESTING) 00:25:[address] [facility] CT ABDOMEN PELVIS W CONTRAST 2020-04-05 23:39:[address] [facility] URINALYSIS 2020-04-05 23:04:[address] [facility] ADC / LCC - DRUG SCREEN TRIAGE 2020-03-14 4 23:04:[address] [facility] EKG-12 LEAD 2020-04-05 22:17:[address] [facility] LIPASE 2020-04-05 22:10:[address] [facility] MAGNESIUM 2020-04-05 22:10:[address] [facility] TROPONIN I 2020-04-05 22:10:[address] [facility] COMP. METABOLIC PANEL (94925) 2020-04-05 22:10:[address] [facility] ETHANOL 2020-04-05 22:10:[address] [facility] CBC WITH DIFFERENTIAL 2020-04-05 22:10:[address] [facility] EKG-12 LEAD 2020-04-05 22:08:[address] [facility] CANCER ANTIGEN-GI (CA 19-9) 2020-03-06 10:53:00 Delio [facility] C-REACTIVE PROTEIN 2020-03-06 10:53:00 Delio [facility] SEDIMENTATION RATE 2020-03-06 10:53:00 Delio [facility] COLONOSCOPY 2020-03-05 16:21:[address] [facility] CARCINOEMBRYONIC ANTIGEN 2020-03-05 15:31:00 Delio [facility] COLONOSCOPY (ENDO) 2020-03-05 13:52:[address] [facility] PHOSPHORUS 2020-03-05 10:23:00 Delio [facility] MAGNESIUM 2020-03-05 10:23:00 Delio [facility] COMP. METABOLIC PANEL (49360) 2020-03-05 10:23:00 Delio [facility] CBC WITH DIFFERENTIAL 2020-03-05 10:23:00 Delio [facility] PROTHROMBIN TIME / INR 2020-03-05 10:23:[address] [facility] US PELVIS COMPLETE WITH TRANSVAGINAL 2020-03-05 01:35:11 Delio [facility] SURGICAL PATHOLOGY EXAM 2020-03-04 15:04:[address] [facility] ESOPHAGOGASTRODUODENOSCOPY 2020-03-04 14:46:[address] [facility] EGD (ENDO) 2020-03-04 14:39:[address] [facility] PHOSPHORUS 2020-03-04 09:00:00 Delio [facility] MAGNESIUM 2020-03-04 09:00:00 Delio [facility] BASIC METABOLIC PANEL (NA, K , CL, CO2, GLUCOSE, BUN, CREATININE, CA) 2020-03-04 09:00[facility]00 [facility]ENTIAL 2020-03-04 09:00[facility] [facility] PELVIS W CONTRAST 2020-03-03 22:35:33 [facility] BASIC METABOLIC PANEL (NA, K , CL, CO2, GLUCOSE, BUN, CREATININE, CA) 2020-03-03 08:34:00 [facility] CBC WITH DIFFERENTIAL 2020-03-03 08:34:00 [facility] ECHO ROUTINE W/DOPPLER COLOR 2020-03-02 18:34:01 Arnoldo [facility] XR ABDOMEN ACUTE SERIES 2020-03-02 17:14:17 Tarun [facility] URINALYSIS 2020-03-02 16:22:00 Tarun [facility] ADC / LCC - DRUG SCREEN TRIAGE 2020-02-13 0 16:21:00 Tarun [facility] TEST, SERUM 2020-03-02 14:27:00 Tarun [facility] PROTHROMBIN TIME / INR 2020-03-02 14:27:00 Tarun [facility] ACTIVATED PARTIAL THRMPLAS HUMBERTO 2020-02-13 0 14:27:00 Tarun [facility] EKG-12 LEAD 2020-03-02 14:19:13 Tarun [facility] LIPASE 2020-03-02 14:13:00 Tarun [facility] TROPONIN I 2020-03-02 14:13:00 Tarun [facility] HEPATIC FUNCTION PANEL (8007 6) (ALB,T.PRO,BILI T,BU/BC,ALT,AST,ALK PHOS) 2020-03-02 14:13:00 Tarun [facility] BASIC METABOLIC PANEL (NA, K , CL, CO2, GLUCOSE, BUN, CREATININE, CA) 2020-03-02 14:13:00 Tarun [facility] ETHANOL 2020-03-02 14:13:00 Mcneil, [facility] CBC WITH DIFFERENTIAL 2020-03-02 14:13:[address] [facility] N-TERMINAL PRO-BNP 2020-03-02 14:13:[address] [facility] CORONAVIRUS COVID-19 TESTING 2020-03-02 14:13:[address] [facility] EKG-12 LEAD 2020-03-02 14:10:[address] [facility] EXTERNAL PROVIDER RECORDS 2020-03-02 05:01:00 Doctor Unassigned, [place] [facility] HOSPITAL ADMISSION 2020-03-02 05:01:00 Doctor Unassigned, [place] [facility] CBC WITH DIFFERENTIAL 2020-01-01 17:34:[address] [facility] GLYCOSYLATED HEMOGLOBIN (A1C) 2020-01-01 17:34:[address] [facility] Encounters Start Date/Time End Date/Time Encounter Type Admission Type Attending [facility] Facility Care Department Encounter ID Source 2021-09-13 02:01:28 Emergency [facility] [id number] [facility] 2021-09-13 02:01:16 Emergency [facility] [id number] [facility] 2021-09-12 23:24:18 Emergency [id number] [facility] 2021-09-12 15:06:45 Emergency [facility] [id number] [facility] 2021-09-12 05:36:25 Emergency [facility] [id number] [facility] 2021-09-11 11:36:34 Emergency [facility] [id number] [facility] 2021-09-11 05:46:33 Emergency [facility] [id number] [facility] 2021-09-10 18:59:11 Emergency [facility] [id number] [facility] 2021-09-10 18:31:55 Emergency [facility] [id number] [facility] 2021-09-10 05:39:41 Emergency [facility] [id number] [facility] 2021-09-10 04:39:39 Emergency [facility] [id number] [facility] 2024-10-23 14:40:00 2024-10-23 14:40:00 Outpatient R OBI-BERNADETTE , PRAVIN OBI-BERNADETTE , PRAVIN [facility] [id number] [facility] 2024-10-23 08:40:00 2024-10-23 08:40:00 Outpatient R OBI-BERNADETTE , PRAVIN OBI-BERNADETTE , PRAVIN [facility] [id number] [facility] 2024-10-09 10:26:00 2024-10-09 13:53:00 Emergency X POPEYE MARQUEZ JOSEPH [facility] E[facility] [id number] [facility] 2024-10-09 10:26:00 2024-10-09 13:53:00 Emergency Popeye Marquez [facility] 1.2.840.114 350.1.13.10 4.2.7.2.686 [id number] [facility] 2024-09-19 13:00:00 2024-09-19 13:38:16 Outpatient R OBI-BERNADETTE , PRAVIN OBI-BERNADETTE , PRAVIN [facility] [id number] [facility] 2024-09-19 13:00:00 2024-09-19 13:38:16 [facility] 1.2.840.114 350.1.13.10 4.2.7.2.686 [id number] [facility] 2024-09-19 00:00:00 2024-09-19 10:50:03 Telephone [facility] 1.2.840.114 350.1.13.10 4.2.7.2.686 [id number] [facility] 2024-09-13 19:48:00 2024-09-13 21:52:00 Emergency X ANDREW HENDRICKS NADIM [facility] E[facility] [id number] [facility] 2024-09-13 19:48:00 2024-09-13 21:52:00 Emergency Andrew Hendricks [facility] 1.2.840.114 350.1.13.10 4.2.7.2.686 [id number] [facility] 2024-05-26 19:58:00 2024-05-26 22:53:00 Emergency X RUTH WATTSENRIQUEDIMITRIRUTH [facility] ERT [id number] [facility] 2024-05-26 19:58:00 2024-05-26 22:53:00 Emergency Ruth Watts Nadya [facility] 1..840.114 350.1.13.10 4.2.7.2.686 [id number] [facility] 2024-05-21 19:17:00 2024-05-26 13:55:00 Inpatient U Sarah Saavedra [facility] [id number] [facility] 2024-05-05 13:37:00 2024-05-05 17:50:00 Emergency X JIMBO ROMERO ROBERT [facility] ERT [id number] [facility] 2024-05-05 13:37:00 2024-05-05 17:50:00 Emergency Jimbo Romero [facility] 1..840.114 350.1.13.10 4.2.7.2.686 [id number] [facility] 2024-01-20 15:38:00 2024-01-23 18:00:00 Inpatient X ISABELL LIZARRAGA [facility] ELDA [id number] [facility] 2024-01-20 15:38:00 2024-01-23 18:00:00 Hospital Encounter Jeanna Jo Jelani [facility] 1.2.840.114 350.1.13.10 4.2.7.2.686 [id number] [facility] 2024-01-16 16:00:00 2024-01-16 16:00:00 Outpatient R JESSICA PIEDRA [facility] [id number] [facility] 2023-12-20 14:00:00 2023-12-20 14:00:00 Outpatient R JESSICA PIEDRA [facility] [id number] [facility] 2023-11-09 00:00:00 2023-11-09 00:00:00 Transition of Care Nighat Sanchez [address] 1.840.114 350.1.13.10 4.2.7.2.686 [id number] [facility] 2023-11-03 22:45:00 2023-11-05 13:23:00 Inpatient X RUBIA SALEEM [facility] [id number] [facility] 2023-11-03 22:45:00 2023-11-05 13:23:00 Hospital Encounter Oneal Rubia Lui [facility] 1.840.114 350.1.13.10 4.2.7.2.686 [id number] [facility] 2023-10-21 00:00:00 2023-10-21 00:00:00 Telephone Jessica Piedra [facility]?FREDYTessa [facility] 1..840.114 350.1.13.10 4.2.7.2.686 [id number] [facility] 2023-09-15 09:08:00 2023-09-15 10:52:00 Emergency X NINFA PEARL [facility] ERT [id number] [facility] 2023-09-15 09:08:00 2023-09-15 10:52:00 Emergency Ninfa Pearl [facility] 1.2.840.114 350.1.13.10 4.2.7.2.686 [id number] [facility] 2021-07-09 00:00:00 2021-07-09 00:00:[address] 1.2.840.114 350.1.13.10 4.2.7.2.686 [id number] [facility] 2021-07-04 00:00:00 2021-07-04 00:00:00 Refill Jessica Piedra [facility] 1..840.114 350.1.13.10 4.2.7.2.686 [id number] [facility] 2021-06-24 10:40:00 2021-06-24 10:40:00 Outpatient R JESSICA PIEDRA [facility] [id number] [facility] 2021-06-23 10:20:00 2021-06-23 10:20:00 Outpatient R JESSICA PIEDRA [facility] [id number] [facility] 2021-06-18 00:00:00 2021-06-18 00:00:00 Telephone Jessica Piedra [facility] 1..840.114 350.1.13.10 4.2.7.2.686 [id number] [facility] 2021-05-21 14:00:00 2021-05-21 14:00:00 Outpatient R TIM VOSS [facility] [id number] [facility] 2021-04-29 23:48:00 2021-04-30 02:58:00 Emergency Ruth Watts [facility] 1.2.840.114 350.1.13.10 4.2.7.2.686 [id number] [facility] 2021-04-21 00:00:00 2021-04-21 00:00:00 Transition of Care Martha Mays 1.2.840.114 350.1.13.10 4.2.7.2.686 [id number] [facility] 2021-04-18 10:18:00 2021-04-20 14:37:00 Hospital Encounter Rehan Collins Yaman [facility] 1.2.840.114 350.1.13.10 4.2.7.2.686 [id number] [facility] 2021-03-30 15:30:00 2021-03-30 15:30:00 Outpatient R GORGE MONTES [facility] [id number] [facility] 2021-03-23 11:20:00 2021-03-23 11:20:00 Outpatient R JESSICA PIEDRA [facility] [id number] [facility] 2021-03-11 00:00:00 2021-03-11 00:00:00 Transition of Care Martha Mays 1.2.840.114 350.1.13.10 4.2.7.2.686 [id number] [facility] 2021-03-07 11:20:00 2021-03-10 11:00:00 Hospital Encounter Cooper Mcneil David [facility] 1.2.840.114 350.1.13.10 4.2.7.2.686 [id number] [facility] 2021-03-04 14:30:00 2021-03-04 14:30:00 Outpatient R [facility] [id number] [facility] 2021-02-24 07:48:34 2021-02-24 10:55:01 Telemedici ne Visit Jessica Piedra [facility] 1.2.840.114 350.1.13.10 4.2.7.2.686 [id number] [facility] 2021-02-24 09:00:00 2021-02-24 09:00:00 Outpatient R JESSICA PIEDRA [facility] [id number] [facility] 2021-02-23 00:00:00 2021-02-23 00:00:00 Refill [facility] 1.2.840.114 350.1.13.10 4.2.7.2.686 [id number] [facility] 2021-02-23 00:00:00 2021-02-23 00:00:00 Telephone Jessica Piedra [facility] 1.2.840.114 350.1.13.10 4.2.7.2.686 [id number] [facility] 2021-01-22 12:08:00 2021-01-23 17:00:00 Emergency Deejay Sabillon, Mayank Duval, [facility] 1.2.840.114 350.1.13.10 4.2.7.2.686 [id number] [facility] 2021-01-12 16:00:00 2021-01-12 16:00:00 Outpatient R JESSICA PIEDRA [facility] [id number] [facility] 2021-01-12 10:23:44 2021-01-12 15:47:19 Telemedici ne Visit Britt[facility] 1.2.840.114 350.1.13.10 4.2.7.2.686 [id number] [facility] 2021-01-12 00:00:00 2021-01-12 00:00:00 Telephone Jessica Piedra [facility]ya [facility] 1.2.840.114 350.1.13.10 4.2.7.2.686 [id number] [facility] 2021-01-08 00:00:00 2021-01-08 00:00:00 Telephone Jessica Piedra [facility] 1.2.840.114 350.1.13.10 4.2.7.2.686 [id number] [facility] 2021-01-06 00:00:00 2021-01-06 00:00:00 Paris Long [facility] 1.2.840.114 350.1.13.10 4.2.7.2.686 [id number] [facility] 2020-12-25 08:52:48 2020-12-25 12:11:43 Telemedici ne Visit Jessica Piedra [facility] 1.2.840.114 350.1.13.10 4.2.7.2.686 [id number] [facility] 2020-12-25 09:40:00 2020-12-25 09:40:00 Outpatient R JESSICA PIEDRA [facility] [id number] [facility] 2020-12-23 10:40:00 2020-12-23 10:40:00 Outpatient R JESSICA PIEDRA [facility] [id number] [facility] 2020-12-23 00:00:00 2020-12-23 00:00:00 Telephone Jessica Piedra [facility] 1.2.840.114 350.1.13.10 4.2.7.2.686 [id number] [facility] 2020-11-27 08:40:00 2020-11-27 08:40:00 Outpatient R JESSICA PIEDRA [facility] [id number] [facility] 2020-11-27 08:11:31 2020-11-27 08:26:31 Telemedici ne Visit Britt[facility] 1.2840.114 350.1.13.10 4.2.7.2.686 [id number] [facility] 2020-11-25 09:40:00 2020-11-25 09:40:00 Outpatient R JESSICA PIEDRA [facility] [id number] [facility] 2020-11-19 09:00:00 2020-11-19 09:40:00 Telemedici ne Visit Jessica Piedra [facility] 1.2840.114 350.1.13.10 4.2.7.2.686 [id number] [facility] 2020-11-19 09:00:00 2020-11-19 09:00:00 Outpatient R JESSICA PIEDRA [facility] [id number] [facility] 2020-11-03 00:00:00 2020-11-03 00:00:00 Transition of Care Martha Mays 1.2840.114 350.1.13.10 4.2.7.2.686 [id number] [facility] 2020-10-28 10:32:00 2020-11-02 14:53:00 Hospital Encounter Evelin Guerin Yaman [facility] 1.2840.114 350.1.13.10 4.2.7.2.686 [id number] [facility] 2020-09-28 11:24:00 2020-09-30 12:40:00 Emergency Cooper Mcneil Yaman [facility] 1.2.840.114 350.1.13.10 4.2.7.2.686 [id number] [facility] 2020-09-22 07:55:46 2020-09-22 16:43:37 Telemedici ne Visit Jessica Piedra [facility] 1.2.840.114 350.1.13.10 4.2.7.2.686 [id number] [facility] 2020-09-22 09:40:00 2020-09-22 09:40:00 Outpatient R TRIPKYRACHANARONJESSICA [facility] [id number] [facility] 2020-08-10 00:00:00 2020-08-10 00:00:00 Telephone Jessica Piedra [facility] 1.2.840.114 350.1.13.10 4.2.7.2.686 [id number] [facility] 2020-08-05 10:29:00 2020-08-05 17:15:00 Emergency Singer [facility] 1.2.840.114 350.1.13.10 4.2.7.2.686 [id number] [facility] 2020-08-03 09:00:00 2020-08-03 14:22:00 Emergency Singer [facility] 1.2.840.114 350.1.13.10 4.2.7.2.686 [id number] [facility] 2020-07-27 10:00:00 2020-07-27 10:00:00 Outpatient R KIYA GARCIA [facility] [id number] [facility] 2020-06-22 08:27:30 2020-06-22 13:13:04 Telemedici ne Visit Jessica Piedra [facility] Building 1.2.840.114 350.1.13.10 4.2.7.2.686 [id number] [facility] 2020-06-22 10:00:00 2020-06-22 10:00:00 Outpatient R JESSICA PIEDRA [facility] [id number] [facility] 2020-06-22 00:00:00 2020-06-22 00:00:00 Telephone Jessica Piedra [facility] 1.2.840.114 350.1.13.10 4.2.7.2.686 [id number] [facility] 2020-06-17 08:00:00 2020-06-17 08:00:00 Outpatient R KIYA GARCIA [facility] [id number] [facility] 2020-06-16 15:00:00 2020-06-16 15:00:00 Outpatient R JESSICA PIEDRA [facility] [id number] [facility] 2020-06-10 13:30:00 2020-06-10 13:30:00 Outpatient R KIYA GARCIA [facility] [id number] [facility] 2020-06-03 10:30:00 2020-06-03 11:00:00 [facility] 1.2.840.114 350.1.13.10 4.2.7.2.686 [id number] [facility] 2020-06-03 10:30:00 2020-06-03 10:30:00 Outpatient R KIYA GARCIA [facility] [id number] [facility] 2020-04-23 13:37:13 2020-05-26 13:31:13 Telemedici ne Visit Jessica Piedra [facility] 1.2.840.114 350.1.13.10 4.2.7.2.686 [id number] [facility] 2020-05-20 21:33:07 2020-05-22 15:38:00 Emergency Sarah Judith Nadya Masters, Linnea Durgastephenie [facility] 1.2.840.114 350.1.13.10 4.2.7.2.686 [id number] [facility] 2020-05-22 00:00:00 2020-05-22 00:00:00 Patient Outreach LeeRegine Dc Conte Shankar 1.2.840.114 350.1.13.10 4.2.7.2.686 [id number] [facility] 2020-05-21 00:00:00 2020-05-21 00:00:00 Transition of Care Martha Maysdev Conte Paterson 1.2.840.114 350.1.13.10 4.2.7.2.686 [id number] [facility] 2020-05-21 00:00:00 2020-05-21 00:00:00 Telephone Eliane Tripathi [facility] 1.2.840.114 350.1.13.10 4.2.7.2.686 [id number] [facility] 2020-05-15 21:13:06 2020-05-20 15:09:00 Hospital Encounter Ninfa Pearl Shebey [facility] 1.2.840.114 350.1.13.10 4.2.7.2.686 [id number] [facility] 2020-05-17 00:00:00 2020-05-17 00:00:00 Telephone Piotr Grimm [facility] 1.2840.114 350.1.13.10 4.2.7.2.686 [id number] [facility] 2020-04-24 00:00:00 2020-04-24 00:00:00 Patient Outreach Meaghan Pandey [facility] 1.84.114 350.1.13.10 4.2.7.2.686 [id number] [facility] 2020-04-23 14:40:00 2020-04-23 14:40:00 Outpatient R JESSICA PIEDRA [facility] [id number] [facility] 2020-04-14 14:30:00 2020-04-14 14:30:00 Outpatient R PARIS PEREZ [facility] [id number] [facility] 2020-04-05 17:11:25 2020-04-07 11:20:00 Outpatient Gloria DELATORRE [facility] [id number] [facility] 2020-04-05 17:11:25 2020-04-07 11:20:00 [facility]..114 350.1.13.10 4.2.7.2.686 [id number] [facility] 2020-03-13 09:21:37 2020-03-13 15:27:34 Telemedici ne Visit Jessica Piedra [facility] 1.84.114 350.1.13.10 4.2.7.2.686 [id number] [facility] 2020-03-13 14:20:00 2020-03-13 14:20:00 Outpatient R JESSICA PIEDRA [facility] [id number] [facility] 2020-03-12 00:00:00 2020-03-12 00:00:00 Telephone Randall Carrillo [facility] 1.840.114 350.1.13.10 4.2.7.2.686 [id number] [facility] 2020-03-10 00:00:00 2020-03-10 00:00:00 Telephone Unknown, Attending [facility] 1.2.114 350.1.13.10 4.2.7.2.686 [id number] [facility] 2020-03-09 00:00:00 2020-03-09 00:00:00 Transition of Care Martha Mays 1..114 350.1.13.10 4.2.7.2.686 [id number] [facility] 2020-03-02 09:03:51 2020-03-06 16:00:00 Inpatient X OPHELIA WILEY [facility] [id number] [facility] 2020-03-02 09:03:51 2020-03-06 16:00:00 Hospital Encounter Cooper Mcneil, Devin Wiley, Ophelia [facility] 1.114 350.1.13.10 4.2.7.2.686 [id number] [facility] 2020-01-01 11:21:38 2020-01-01 11:36:38 Barrel Tester Visit Pob, [facility] Joselin Su [facility] 1..114 350.1.13.10 4.2.7.2.686 [id number] [facility] Results Test Description Test Time Test Comments Results Result Comments Source CT ABDOMEN PELVIS W CONTRAST 2024-09 18:56:[address] Abdomen and Pelvis with intravenous contrast. CLINICAL HISTORY: RLQ Abdominal pain. DOSE: Up-to-date CT equipment and radiation dose reduction techniques wereemployed. CTDIvol: ?10.53 mGy. DLP: ?516.52 mGy-cm. TECHNIQUE : Contiguous axial imaging from the level of the lung basesthrough the pubic symphysis were performed after the uncomplicatedadministration of nonionic contrast material. ?Coronal and sagittalreconstructions were obtained. Auto mA and/or iterative reconstruction wereused to reduce radiation dose. FINDINGS: ?Comparison has been made with 05/26/2024 studies. Lower lungs: Calcified granuloma in the right middle lobe. No pleuraleffusion or pericardial effusion. No definite evidence of hiatal hernia. Liver, Gallbladder and Spleen: Liver is 13.3 cm in length and appearsnormal. Spleen is of normal size, 10.5 x 3.7 cm. Gallbladder showed no CTdetectable abnormalities. Peritoneum: ?No free air or free fluid. Small nonspecific reactivelymphadenopathy noted in the right lower quadrant of the abdomen. Pancreas and Adrenals: ?Unremarkable pancreas and right adrenal gland. Leftadrenal gland showed an irregular, roughly oval-shaped 21 x 12 mm nodule ofuncertain etiology. Nodule remains unchanged when compared with noncontrastenhanced CT scan of 05/26/2024.. Kidneys and Ureters: ?No visible calculi in the renal collecting systems. No hydroureter or hydronephrosis. Vessels: Mild atherosclerosis and lower abdominal aorta and right commoniliac artery. Retroperitoneum: No abnormal fluid or lymphadenopathy. Bowel: ?Normal appendix. Diverticulosis of the sigmoid and descending colonnoted with mild congestion of the pericolonic fat surrounding the distaldescending colon. Thickening of the wall of the sigmoid colon could besecondary to prior episodes of diverticulitis. Bladder and Reproductive Organs: ?Unremarkable. Bones: ?Metallic orthopedic hardware in left femur. Old fracture of U4slqee has lost approximately 60-70% of his height. There is minimalworsening in the severity of fracture since May 2024 study. Soft tissues: Small fat-containing indirect type left inguinal hernia. CONCLUSION:1. Moderate uncomplicated acute diverticulitis surrounding distaldescending colon. Normal appendix. 2. Left adrenal gland nodule of uncertain etiology. [facility] [id number] 17:32:36* Test Item Value Reference Range Interpretation Comme nts TROPONIN I (test code = 5238987189) 0.006 ng/mL <=0.034 THEODORA (test code = THEODORA) [...] of biotin. Lab Interpretation (test code = 75336-1) Normal [facility]. Metabolic Panel (64744)2024-10-09 17:21:16* Test Item Value Reference Range Interpretation Comme nts NA (test code = 4184503134) 137 mmol/L 135-145 K (test code = 6230935935) 4.2 mmol/L 3.5-5.0 CL (test code = 9271186573) 101 mmol/L 98-108 CO2 TOTAL (test code = 0474879444) 28 mmol/L 23-31 AGAP (test code = 6479616577) 8 2-16 BUN (test code = 1094112281) 19 mg/dL 7-23 GLUCOSE (test code = 4096172109) 110 mg/dL 70-110 CREATININE (test code = 2160-0) 0.63 mg/dL 0.50-1.04 TOTAL BILI (test code = 9027633342) 0.5 mg/dL 0.1-1.1 CALCIUM (test code = 9564063081) 9.9 mg/dL 8.6-10.6 T PROTEIN (test code = 8379852279) 7.8 g/dL 6.3-8.2 ALBUMIN (test code = 2687459425) 4.5 g/dL 3.5-5.0 ALK PHOS (test code = 6405857330) 124 U/L 34-122 H ALTv (test code = 1742-6) 20 U/L 5-35 AST(SGOT) (test code = 0028679033) 27 U/L 13-40 eGFR (test code = 00650-7) 109.6 mL/min/1.73m2 CKD-EPI eGFR (2020). Assuming creatinine has been stable day-to-day for at least three months, the eGFR indicates Category G1 (>= 90 mL/min/1.73 m2) Lab Interpretation (test code = 51300-5) [facility]normal [facility] 17:20:35* Test Item Value Reference Range Interpretation Comme nts LIPASE (test code = 0100674939) 78 U/L 0-220 Lab Interpretation (test cod e = 25163-7) Normal [facility] CenterCbc with [id number] 17:05:54* Test Item Value Reference Range Interpretation Comme nts WBC (test code = 6690-2) 8.66 4.30-11.10 RBC (test code = 789-8) 4.28 3.93-5.25 HGB (test code = 718-7) 13.7 g/dL 11.6-15.0 HCT (test code = 4544-3) 41.5 % 35.7-45.2 MCV (test code = 787-2) 97.0 fL 80.6-95.5 H MCH (test code = 785-6) 32.0 pg 25.9-32.8 MCHC (test code = 786-4) 33.0 g/dL 31.6-35.1 RDW-SD (test code = 27124-4) 42.9 fL 39.0-49.9 RDW-CV (test code = 788-0) 12.1 % 12.0-15.5 PLT (test code = 777-3) 288 166-358 MPV (test code = 39570-6) 10.1 fL 9.5-12.9 NRBC/100 WBC (test code = 3009211888) 0.0 0.0-10.0 NRBC x10^3 (test code = 2495541313) See_Comment [Automated messa ge] The system which generated this result transmitted reference range: 10*3/?L. The reference range was not used to interpret this result as normal/abnormal. GRAN MAT (NEUT) % (test code = 770-8) 69.9 % IMM GRAN % (test code = 5560467880) 0.30 % LYMPH % (test code = 736-9) 20.6 % MONO % (test code = 5905-5) 6.8 % EOS % (test code = 713-8) 1.7 % BASO % (test code = 706-2) 0.7 % GRAN MAT x10^3(ANC) (test code = 7182702357) 6.05 10*3/uL 1.88-7.09 IMM GRAN x10^3 (test code = 0970754871) 0.03 10*3/uL 0.00-0.06 LYMPH x10^3 (test code = 731-0) 1.78 10*3/uL 1.32-3.29 MONO x10^3 (test code = 742-7) 0.59 10*3/uL 0.33-0.92 EOS x10^3 (test code = 711-2) 0.15 10*3/uL 0.03-0.39 BASO x10^3 (test code = 704-7) 0.06 10*3/uL 0.01-0.07 Lab Interpretation (test code = 11164-1) Abnormal [facility] CHEST 1 [id number] 16:53:00HISTORY: Chest pain. TECHNIQUE: Portable AP view of the chest is obtained. Comparison is beingmade with previous portable study of 09/13/2024. FINDINGS: No acute pneumonia. No pneumothorax or pleural effusion orpulmonary congestion detected. Cardiac size is within upper normal limits. CONCLUSIONS: No signs of acute cardiopulmonary disease.[facility] CHEST 1 2024-09-14 02:44:39Chest X-Ray Indication: chest pain ? Technique: Frontal view(s) of the chest submitted for interpretation. Comparison: 09/15/2023 Ordering Clinician: JIMBO ROMERO Technical Quality: Adequate Findings: No consolidation or effusion. ?No acute mediastinal abnormality. Nopneumothorax. No acute fractures.[facility] CenterTROP[facility]IN [id number] 01:44:03 * Test Item Value Reference Range Interpretation Comme nts TROPONIN I (test code = 9977736696) 0.003 ng/mL <=0.034 THEODORA (test code = THEODORA) [...] of biotin. Lab Interpretation (test code = 13924-5) Normal [facility]. METABOLIC PANEL (91385)2024-09-14 01:32:24* Test Item Value Reference Range Interpretation Comme nts NA (test code = 3582116932) 133 mmol/L 135-145 L K (test code = 8218710489) 4.4 mmol/L 3.5-5.0 CL (test code = 9489419005) 101 mmol/L 98-108 CO2 TOTAL (test code = 1071096383) 22 mmol/L 23-31 L AGAP (test code = 9413329143) 10 2-16 BUN (test code = 1583972532) 23 mg/dL 7-23 GLUCOSE (test code = 0289108322) 104 mg/dL 70-110 CREATININE (test code = 2160-0) 0.61 mg/dL 0.50-1.04 TOTAL BILI (test code = 9805518856) 0.2 mg/dL 0.1-1.1 CALCIUM (test code = 1053084689) 10.3 mg/dL 8.6-10.6 T PROTEIN (test code = 7424637993) 7.9 g/dL 6.3-8.2 ALBUMIN (test code = 3963494365) 4.6 g/dL 3.5-5.0 ALK PHOS (test code = 4623161601) 98 U/L 34-122 ALTv (test code = 1742-6) 22 U/L 5-35 AST(SGOT) (test code = 9054808991) 26 U/L 13-40 eGFR (test code = 49916-3) 110.4 mL/min/1.73m2 CKD-EPI eGFR (2020). Assuming creatinine has been stable day-to-day for at least three months, the eGFR indicates Category G1 (>= 90 mL/min/1.73 m2) Lab Interpretation (test code = 41839-3) Abnormal [facility] CenterLIPASE, [id number] 01:32:04* Test Item Value Reference Range Interpretation Comme nts LIPASE (test code = 0240820844) 52 U/L 0-220 Lab Interpretation (test cod e = 97357-2) Normal [facility] CenterCB WITH [id number] 01:23:46* Test Item Value Reference Range Interpretation Comme nts WBC (test code = 6690-2) 12.00 4.30-11.10 H RBC (test code = 789-8) 4.19 3.93-5.25 HGB (test code = 718-7) 13.1 g/dL 11.6-15.0 HCT (test code = 4544-3) 39.9 % 35.7-45.2 MCV (test code = 787-2) 95.2 fL 80.6-95.5 MCH (test code = 785-6) 31.3 pg 25.9-32.8 MCHC (test code = 786-4) 32.8 g/dL 31.6-35.1 RDW-SD (test code = 01990-5) 41.4 fL 39.0-49.9 RDW-CV (test code = 788-0) 11.9 % 12.0-15.5 L PLT (test code = 777-3) 325 166-358 MPV (test code = 69198-8) 9.7 fL 9.5-12.9 NRBC/100 WBC (test code = 7163492486) 0.0 0.0-10.0 NRBC x10^3 (test code = 2140657352) See_Comment [Automated messa ge] The system which generated this result transmitted reference range: 10*3/?L. The reference range was not used to interpret this result as normal/abnormal. GRAN MAT (NEUT) % (test code = 770-8) 71.6 % IMM GRAN % (test code = 9555883308) 0.90 % LYMPH % (test code = 736-9) 20.8 % MONO % (test code = 5905-5) 5.8 % EOS % (test code = 713-8) 0.3 % BASO % (test code = 706-2) 0.6 % GRAN MAT x10^3(ANC) (test code = 0431792341) 8.59 10*3/uL 1.88-7.09 H IMM GRAN x10^3 (test code = 5015039090) 0.11 10*3/uL 0.00-0.06 H LYMPH x10^3 (test code = 731-0) 2.49 10*3/uL 1.32-3.29 MONO x10^3 (test code = 742-7) 0.70 10*3/uL 0.33-0.92 EOS x10^3 (test code = 711-2) 0.04 10*3/uL 0.03-0.39 BASO x10^3 (test code = 704-7) 0.07 10*3/uL 0.01-0.07 Lab Interpretation (test code = 39218-1) [facility]normal [facility]CT [facility] WO [id number] 02:40:06CT SCAN OF THE ABDOMEN AND PELVIS WITHOUT IV CONTRAST HISTORY: Abdominal pain Ordering physician: RUTH WATTS COMPARISON: ?CT abdomen/pelvis from 05/05/2024. TECHNIQUE: Axial CT scan of the abdomen and pelvis. Coronal and sagittal reformattedimages. Intravenous Contrast: None.Enteric Contrast: None. CT scan was performed according to ALARA (as low as reasonably achievable)principle. RESULT: Lower thorax:Visualized lung bases are clear. Heart is normal in size. No pleural or pericardial effusion. Liver, gallbladder, and biliary system:The liver is normal in size and contour and demonstrates homogeneousattenuation with no large focal mass. There is a subcentimeter hypodensityin the centralright hepatic lobe, too small to characterize butstatistically likely representing a cyst. The gallbladder is unremarkable. There is no intra-or extrahepatic biliaryductal dilatation. Pancreas: Normal .Spleen: Normal. Adrenal glands: There is nodular thickening of the left adrenal gland,nonspecific but can be seen with hyperplasia. The right adrenal gland isunremarkable. Kidneys and ureters:Kidneys are similar in size without large focal soft tissue mass orhydronephrosis. No sizable renal or ureteral calculi identified. No bulky retroperitoneal lymphadenopathy. GI tract:There are sigmoid and descending colon diverticula. There is fat strandingposterior to the mid/distal descending colon. There is a contained structure posterior to the mid/distal descending colonwith internal focus of air, measuring 12 x 12 x 17 mm. This may representcontained perforation. There is mild to moderate amountof stool within the large colon. The GI tract is not obstructed. No bowel wall thickening. Normal caliber appendix. Peritoneum/retroperitoneum: No ascites, pneumoperitoneum, or mesentericlymphadenopathy. Vessels: Normal caliber aorta. Urinary bladder: Predominantly collapsed urinary bladder is noted. Reproductive organs: Uterus is normal in size. No large adnexal mass. There is no free pelvic fluid. There is no bulky iliac or inguinallymphadenopathy. Bones:Bone windows demonstrate mild degenerative changes the thoracolumbar spine.There is mild to moderate compression deformity of the L1 superiorendplate, new from prior study. There is leftward curvature of the inferior left lumbar spine.[facility]. Metabolic Panel (50280)2024-05-27 02:37:30* Test Item Value Reference Range Interpretation Comme nts NA (test code = 3730962082) 135 mmol/L 135-145 K (test code = 7039701904) 4.6 mmol/L 3.5-5.0 CL (test code = 0951307315) 102 mmol/L 98-108 CO2 TOTAL (test code = 8573323630) 27 mmol/L 23-31 AGAP (test code = 6399617945) 6 2-16 BUN (test code = 4547443715) 16 mg/dL 7-23 GLUCOSE (test code = 0754264856) 104 mg/dL 70-110 CREATININE (test code = 2160-0) 0.82 mg/dL 0.50-1.04 TOTAL BILI (test code = 0561711665) 0.8 mg/dL 0.1-1.1 CALCIUM (test code = 3659380415) 10.7 mg/dL 8.6-10.6 H T PROTEIN (test code = 2062666176) 8.4 g/dL 6.3-8.2 H ALBUMIN (test code = 2290926501) 4.5 g/dL 3.5-5.0 ALK PHOS (test code = 9462869362) 138 U/L 34-122 H ALTv (test code = 1742-6) 86 U/L 5-35 H AST(SGOT) (test code = 7563574956) 85 U/L 13-40 H eGFR (test code = 54029-7) 88.4 mL/min/1.73m2 CKD-EPI eGFR (2020). Assuming creatinine has been stable day-to-day for at least three months, the eGFR indicates Category G2 (60 - 89 mL/min/1.73 m2) Lab Interpretation (test code = 88595-7) [facility]normal [facility]Lipase2024-07-15 02:37:10* Test Item Value Reference Range Interpretation Comme nts LIPASE (test code = 9641808155) 68 U/L 0-220 Lab Interpretation (test cod e = 76900-8) Normal [facility] CenterCb with Ihmm7269-87-09 01:49:30* Test Item Value Reference Range Interpretation Comme nts WBC (test code = 6690-2) 7.39 4.30-11.10 RBC (test code = 789-8) 5.09 3.93-5.25 HGB (test code = 718-7) 16.3 g/dL 11.6-15.0 H HCT (test code = 4544-3) 49.2 % 35.7-45.2 H MCV (test code = 787-2) 96.7 fL 80.6-95.5 H MCH (test code = 785-6) 32.0 pg 25.9-32.8 MCHC (test code = 786-4) 33.1 g/dL 31.6-35.1 RDW-SD (test code = 90024-7) 45.8 fL 39.0-49.9 RDW-CV (test code = 788-0) 12.8 % 12.0-15.5 PLT (test code = 777-3) 254 166-358 MPV (test code = 53792-2) 11.1 fL 9.5-12.9 NRBC/100 WBC (test code = 8761607459) 0.0 0.0-10.0 NRBC x10^3 (test code = 7852900680) See_Comment [Automated messa ge] The system which generated this result transmitted reference range: 10*3/?L. The reference range was not used to interpret this result as normal/abnormal. GRAN MAT (NEUT) % (test code = 770-8) 72.1 % IMM GRAN % (test code = 7861246568) 0.30 % LYMPH % (test code = 736-9) 17.7 % MONO % (test code = 5905-5) 7.3 % EOS % (test code = 713-8) 1.8 % BASO % (test code = 706-2) 0.8 % GRAN MAT x10^3(ANC) (test code = 3985281403) 5.33 10*3/uL 1.88-7.09 IMM GRAN x10^3 (test code = 7886674916) 0.00-0.06 LYMPH x10^3 (test code = 731-0) 1.31 10*3/uL 1.32-3.29 L MONO x10^3 (test code = 742-7) 0.54 10*3/uL 0.33-0.92 EOS x10^3 (test code = 711-2) 0.13 10*3/uL 0.03-0.39 BASO x10^3 (test code = 704-7) 0.06 10*3/uL 0.01-0.07 Lab Interpretation (test code = 80653-4) Abnormal [facility] CenterLactic Acid Whole Qscnt2883-71-71 01:36:21* Test Item Value Reference Range Interpretation Comme nts LACTIC ACID (test code = 4478412587) 1.15 mmol/L 0.50-2.20 Lab Interpretation (test cod e = 37940-3) Normal [facility] CenterChemistry2024-07-12 05:23:00* Test Item Value Reference Range Interpretation Comme nts Chemistry (test code = NA-T) 139 mmol/L 136-145 N Chemistry (test code = K-T) 4.2 mmol/L 3.5-5.1 N Chemistry (test code = CL-T) 108 mmol/L 98-107 H Chemistry (test code = CO2-T) 22 mmol/L 22-29 N Chemistry (test code = ANGP) 13 mmol/L 10-20 N Chemistry (test code = BUN) 8 mg/dL 7.0-18.7 N Chemistry (test code = CREATT) 0.70 mg/dL 0.6-1.1 N Chemistry (test code = EGFRCR) 107 Reference Range for Estimated GFR: Greater than 90 mL/min/1.73 w3Tzoczguc eGFR is based on the CKD-EPI 2020 equation thatdoes not use a race coefficient. Chemistry (test code = GLU-T) 100 mg/dL 70-105 N Chemistry (test code = CA-T) 9.4 mg/dL 7.8-10.44 N Chemistry (test code = TBILI-T) 0.4 mg/dL 0.2-1.2 N Chemistry (test code = TP) 6.0 g/dL 6.0-8.3 N Chemistry (test code = ALB) 3.0 g/dL 3.5-5.0 L Chemistry (test code = GLOB) 3.0 g/dL 2.4-3.5 N Chemistry (test code = AG) 1.0 g/dL 1.2-2.2 L Chemistry (test code = ALP) 94 U/L 40-110 N Chemistry (test code = AST) 90 U/L 5-34 H Chemistry (test code = ALT) 84 U/L 8-55 H Irqxnlibi1310-69-36 05:23:00* Test Item Value Reference Range Interpretation Comme nts Chemistry (test code = MG-T) 1.7 mg/dL 1.6-2.6 N Irtynftshi2499-43-77 05:11:00* Test Item Value Reference Range Interpretation Comme nts Hematology (test code = WBCT) 5.00 10x3/uL 4.8-10.8 N Hematology (test code = RBCT) 4.56 mill/uL 4.20-5.40 N Hematology (test code = HGBT) 14.2 g/dL 12.0-16.0 N Hematology (test code = HCTT) 44.9 % 36.0-47.0 N Hematology (test code = MCV) 98.5 fL 78.0-98.0 H Hematology (test code = MCH) 31.1 pg 27.0-31.0 H Hematology (test code = MCHC) 31.6 g/dL 32.0-36.0 L Hematology (test code = RDW) 12.8 % 11.5-14.5 N Hematology (test code = PLTT) 206 10x3/uL 130-400 N Hematology (test code = MPV) 10.4 fL 7.4-10.4 N Hematology (test code = %NEUT) 62.8 % 42.0-75.0 N Hematology (test code = %LYMPH) 23.6 % 21.0-51.0 N Hematology (test code = %MONO) 8.2 % 0.0-10.0 N Hematology (test code = %EOS) 4.0 % 0.0-10.0 N Hematology (test code = %BASO) 1.0 % 0.0-1.0 N Hematology (test code = %IG) 0.4 % 0-5 N Hematology (test code = %NRBC) 0.0 % 0.0-0.0 N Hematology (test code = NEUT#) 3.10 10x3/uL 1.40-6.50 N Hematology (test code = LYMPH#XN) 1.20 10x3/uL 1.20-3.40 N Hematology (test code = MONO#) 0.40 10x3/uL 0.11-0.59 N Hematology (test code = EOS#) 0.20 10x3/uL 0.0-0.7 N Hematology (test code = BASO#) 0.05 10x3/uL 0.0-0.2 N Hematology (test code = IG#) Less than 0.03 10x3/uL 0.00-0.50 N Hematology (test code = NRBC#) Less than 0.01 10x3/uL None Seen Chemistry - Lwkpagn2513-74-05 05:11:00* Test Item Value Reference Range Interpretation Comme [facility] Chemistry - Lactate (test co de = LACT-T) 0.7 mmol/L 0.5-2.2 N Szaaolphe3865-22-03 05:31:00* Test Item Value Reference Range Interpretation Comme nts Chemistry (test code = NA-T) 141 mmol/L 136-145 N Chemistry (test code = K-T) 4.0 mmol/L 3.5-5.1 N Chemistry (test code = CL-T) 110 mmol/L 98-107 H Chemistry (test code = CO2-T) 25 mmol/L 22-29 N Chemistry (test code = ANGP) 10 mmol/L 10-20 N Chemistry (test code = BUN) 8 mg/dL 7.0-18.7 N Chemistry (test code = CREATT) 0.77 mg/dL 0.6-1.1 N Chemistry (test code = EGFRCR) 95 Reference Range for Estimated GFR: Greater than 90 mL/min/1.73 e2Lpypllic eGFR is based on the CKD-EPI 2020 equation thatdoes not use a race coefficient. Chemistry (test code = GLU-T) 92 mg/dL 70-105 N Chemistry (test code = CA-T) 9.2 mg/dL 7.8-10.44 N Chemistry (test code = TBILI-T) 0.5 mg/dL 0.2-1.2 N Chemistry (test code = TP) 6.0 g/dL 6.0-8.3 N Chemistry (test code = ALB) 3.1 g/dL 3.5-5.0 L Chemistry (test code = GLOB) 2.9 g/dL 2.4-3.5 N Chemistry (test code = AG) 1.0 g/dL 1.2-2.2 L Chemistry (test code = ALP) 88 U/L 40-110 N Chemistry (test code = AST) 90 U/L 5-34 H Chemistry (test code = ALT) 82 U/L 8-55 H Yvtrzdnbr9939-85-35 05:31:00* Test Item Value Reference Range Interpretation Comme nts Chemistry (test code = PHOS-T) 3.0 mg/dL 2.3-4.7 N Dmknhpujo5464-75-68 05:31:00* Test Item Value Reference Range Interpretation Comme nts Chemistry (test code = MG-T) 1.7 mg/dL 1.6-2.6 N Chemistry - Dffhnio8472-52-24 05:25:00* Test Item Value Reference Range Interpretation Comme nts Chemistry - Lactate (test co de = LACT-T) 0.6 mmol/L 0.5-2.2 N Ikktbpzdwd4045-69-66 05:12:00* Test Item Value Reference Range Interpretation Comme nts Hematology (test code = WBCT) 5.50 10x3/uL 4.8-10.8 N Hematology (test code = RBCT) 4.54 mill/uL 4.20-5.40 N Hematology (test code = HGBT) 14.3 g/dL 12.0-16.0 N Hematology (test code = HCTT) 44.2 % 36.0-47.0 N Hematology (test code = MCV) 97.4 fL 78.0-98.0 N Hematology (test code = MCH) 31.5 pg 27.0-31.0 H Hematology (test code = MCHC) 32.4 g/dL 32.0-36.0 N Hematology (test code = RDW) 12.8 % 11.5-14.5 N Hematology (test code = PLTT) 193 10x3/uL 130-400 N Hematology (test code = MPV) 10.4 fL 7.4-10.4 N Hematology (test code = %NEUT) 68.1 % 42.0-75.0 N Hematology (test code = %LYMPH) 19.2 % 21.0-51.0 L Hematology (test code = %MONO) 7.7 % 0.0-10.0 N Hematology (test code = %EOS) 3.6 % 0.0-10.0 N Hematology (test code = %BASO) 0.9 % 0.0-1.0 N Hematology (test code = %IG) 0.5 % 0-5 N Hematology (test code = %NRBC) 0.0 % 0.0-0.0 N Hematology (test code = NEUT#) 3.70 10x3/uL 1.40-6.50 N Hematology (test code = LYMPH#XN) 1.10 10x3/uL 1.20-3.40 L Hematology (test code = MONO#) 0.40 10x3/uL 0.11-0.59 N Hematology (test code = EOS#) 0.20 10x3/uL 0.0-0.7 N Hematology (test code = BASO#) 0.05 10x3/uL 0.0-0.2 N Hematology (test code = IG#) 0.03 10x3/uL 0.00-0.50 N Hematology (test code = NRBC#) Less than 0.01 10x3/uL None Seen MRI Lumbar Spine Mgo1166-72-75 08:24:00 [facility] BRYANName: MELANIE SALGADO : 1975 Sex: FMADHURI [facility] Pt Name: MELANIE SALGADO [address] [employer] Phys: Dominik Wellington MD,PhD [place] [id number] : 1975 Age: 48 SEX:F [phone] Exam Date: 05/22/24 Status: ADMIN Acct: [id number] Loc: 2NO Pt Unit #: [id number] Report #: [id number] CC: Dominik Wellington MD, PhD: MRI REPORT Report Status: Signed Order # Category/Exam [id number] MRI/MRI Lumbar Spine WO Con ([id number]): . Results MRI lumbar spine Without IV contrast INDICATIONS: L1 compression. Back pain COMPARISON:None. FINDINGS: Superior endplate compression of L1 vertebra with mild anterior wedging. Edema is present indicatingacute compression injury. Loss of anterior height in the 20% range. Posteriorheight and alignment is preserved. Minimal posterior retropulsion of the posterior superior corner of L1 to the right of midline mildly flattens anterior thecal sac. Disc spaces are preserved. T12-L1:No significant disc bulge or protrusion. No central canal or foraminal stenosis. L1-2:No significant disc bulge or protrusion. No central canal or foraminal stenosis. L2-3:No significant disc bulge or protrusion. No central canal or foraminal stenosis. L3-4:No significant disc bulge or protrusion. No central canal or foraminal stenosis. L4-5:No significant disc bulge or protrusion. No central canal or foraminal stenosis. L5-S1:Mild central disc bulge flattens anterior thecal sac. No central canal or foraminal stenosis. No soft tissue abnormality identified. IMPRESSION: 1.Acute superior endplate compression at L1 is described. Reported By: Nate Weeks MD Electronically Signed Date/Time: 05/22/24818 Technologist:PRAKASH Dictated Date/Time: 05/22/24812 Transcribed Date/Time:[id number] 05:18:00* Test Item Value Reference Range Interpretation Comme nts Chemistry (test code = NA-T) 141 mmol/L 136-145 N Chemistry (test code = K-T) 3.6 mmol/L 3.5-5.1 N Chemistry (test code = CL-T) 108 mmol/L 98-107 H Chemistry (test code = CO2-T) 28 mmol/L 22-29 N Chemistry (test code = ANGP) 9 mmol/L 10-20 L Chemistry (test code = BUN) 12 mg/dL 7.0-18.7 N Chemistry (test code = CREATT) 0.75 mg/dL 0.6-1.1 N Chemistry (test code = EGFRCR) 98 Reference Range for Estimated GFR: Greater than 90 mL/min/1.73 [id number] eGFR is based on the CKD-EPI 2020 equation thatdoes not use a race coefficient. Chemistry (test code = GLU-T) 94 mg/dL 70-105 N Chemistry (test code = CA-T) 9.0 mg/dL 7.8-10.44 N [id number] 05:02:00* Test Item Value Reference Range Interpretation Comme nts Hematology (test code = WBCT) 4.90 10x3/uL 4.8-10.8 N Hematology (test code = RBCT) 4.51 mill/uL 4.20-5.40 N Hematology (test code = HGBT) 14.0 g/dL 12.0-16.0 N Hematology (test code = HCTT) 43.3 % 36.0-47.0 N Hematology (test code = MCV) 96.0 fL 78.0-98.0 N Hematology (test code = MCH) 31.0 pg 27.0-31.0 N Hematology (test code = MCHC) 32.3 g/dL 32.0-36.0 N Hematology (test code = RDW) 13.0 % 11.5-14.5 N Hematology (test code = PLTT) 169 10x3/uL 130-400 N Hematology (test code = MPV) 10.4 fL 7.4-10.4 N Hematology (test code = %NEUT) 69.3 % 42.0-75.0 N Hematology (test code = %LYMPH) 21.0 % 21.0-51.0 N Hematology (test code = %MONO) 6.1 % 0.0-10.0 N Hematology (test code = %EOS) 2.4 % 0.0-10.0 N Hematology (test code = %BASO) 0.8 % 0.0-1.0 N Hematology (test code = %IG) 0.4 % 0-5 N Hematology (test code = %NRBC) 0.0 % 0.0-0.0 N Hematology (test code = NEUT#) 3.40 10x3/uL 1.40-6.50 N Hematology (test code = LYMPH#XN) 1.00 10x3/uL 1.20-3.40 L Hematology (test code = MONO#) 0.30 10x3/uL 0.11-0.59 N Hematology (test code = EOS#) 0.10 10x3/uL 0.0-0.7 N Hematology (test code = BASO#) 0.04 10x3/uL 0.0-0.2 N Hematology (test code = IG#) Less than 0.03 10x3/uL 0.00-0.50 N Hematology (test code = NRBC#) Less than 0.01 10x3/uL None Seen Qbrenkqlm9953-62-70 21:51:00* Test Item Value Reference Range Interpretation Comme nts Chemistry (test code = NA-T) 139 mmol/L 136-145 N Chemistry (test code = K-T) 4.1 mmol/L 3.5-5.1 N Chemistry (test code = CL-T) 106 mmol/L 98-107 N Chemistry (test code = CO2-T) 24 mmol/L 22-29 N Chemistry (test code = ANGP) 13 mmol/L 10-20 N Chemistry (test code = BUN) 11 mg/dL 7.0-18.7 N Chemistry (test code = CREATT) 0.71 mg/dL 0.6-1.1 N Chemistry (test code = EGFRCR) 105 Reference Range for Estimated GFR: Greater than 90 mL/min/1.73 [id number] eGFR is based on the CKD-EPI 2020 equation thatdoes not use a race coefficient. Chemistry (test code = GLU-T) 77 mg/dL 70-105 N Chemistry (test code = CA-T) 9.9 mg/dL 7.8-10.44 N Chemistry - Dxzcktr6955-23-99 21:48:00* Test Item Value Reference Range Interpretation Comme [facility] Chemistry - Lactate (test co de = LACT-T) 0.7 mmol/L 0.5-2.2 N Zzicnvafnw4897-43-89 21:34:00* Test Item Value Reference Range Interpretation Comme nts Hematology (test code = WBCT) 6.00 10x3/uL 4.8-10.8 N Hematology (test code = RBCT) 4.75 mill/uL 4.20-5.40 N Hematology (test code = HGBT) 14.7 g/dL 12.0-16.0 N Hematology (test code = HCTT) 45.2 % 36.0-47.0 N Hematology (test code = MCV) 95.2 fL 78.0-98.0 N Hematology (test code = MCH) 30.9 pg 27.0-31.0 N Hematology (test code = MCHC) 32.5 g/dL 32.0-36.0 N Hematology (test code = RDW) 12.9 % 11.5-14.5 N Hematology (test code = PLTT) 187 10x3/uL 130-400 N Hematology (test code = MPV) 10.4 fL 7.4-10.4 N Hematology (test code = %NEUT) 71.7 % 42.0-75.0 N Hematology (test code = %LYMPH) 19.5 % 21.0-51.0 L Hematology (test code = %MONO) 6.0 % 0.0-10.0 N Hematology (test code = %EOS) 1.8 % 0.0-10.0 N Hematology (test code = %BASO) 0.7 % 0.0-1.0 N Hematology (test code = %IG) 0.3 % 0-5 N Hematology (test code = %NRBC) 0.0 % 0.0-0.0 N Hematology (test code = NEUT#) 4.30 10x3/uL 1.40-6.50 N Hematology (test code = LYMPH#XN) 1.20 10x3/uL 1.20-3.40 N Hematology (test code = MONO#) 0.40 10x3/uL 0.11-0.59 N Hematology (test code = EOS#) 0.10 10x3/uL 0.0-0.7 N Hematology (test code = BASO#) 0.04 10x3/uL 0.0-0.2 N Hematology (test code = IG#) Less than 0.03 10x3/uL 0.00-0.50 N Hematology (test code = NRBC#) Less than 0.01 10x3/uL None Seen CT ABDOMEN PELVIS W [id number] 21:37:59EXAM: CT ABDOMEN PELVIS W CONTRAST HISTORY: 48 [...] There is a long segmentwall thickening in thetransverse colon, descending colon, and sigmoidcolon. Mild diverticulosis. The appendix is normal. Vascular/Lymphatics: No enlarged lymph nodes by CT size criteria. Abdominalaorta is normal in caliber. MSK: No concerning bony lesion identified. ORIF hardware in the proximalleft femur. Other: No extraluminal air. No [facility]inal fluid.[facility]TR[facility] [id number] 20:26:08* Test Item Value Reference Range Interpretation Comme nts TROPONIN I (test code = 3173719503) 0.005 ng/mL <=0.034 THEODORA (test code = THEODORA) [...] of biotin. Lab Interpretation (test code = 66201-1) Normal [facility] CenterCOM[facility] METABOLIC PANEL (20564)2024-05-05 20:14:29* Test Item Value Reference Range Interpretation Comme nts NA (test code = 3398566618) 136 mmol/L 135-145 K (test code = 1988275020) 3.2 mmol/L 3.5-5.0 L CL (test code = 2874970892) 100 mmol/L 98-108 CO2 TOTAL (test code = 7183697167) 24 mmol/L 23-31 AGAP (test code = 5155637826) 12 2-16 BUN (test code = 0688961573) 11 mg/dL 7-23 GLUCOSE (test code = 8897280854) 166 mg/dL 70-110 H CREATININE (test code = 2160-0) 0.52 mg/dL 0.50-1.04 TOTAL BILI (test code = 4940785955) 1.1 mg/dL 0.1-1.1 CALCIUM (test code = 1841231999) 10.2 mg/dL 8.6-10.6 T PROTEIN (test code = 3832348861) 7.4 g/dL 6.3-8.2 ALBUMIN (test code = 0611215947) 4.3 g/dL 3.5-5.0 ALK PHOS (test code = 9484355736) 93 U/L 34-122 ALTv (test code = 1742-6) 178 U/L 5-35 H AST(SGOT) (test code = 0407740923) 173 U/L 13-40 H eGFR (test code = 93673-2) 114.8 mL/min/1.73m2 CKD-EPI eGFR (2020). Assuming creatinine has been stable day-to-day for at least three months, the eGFR indicates Category G1 (>= 90 mL/min/1.73 m2) Lab Interpretation (test code = 97069-6) Abnormal [facility]2024-06-23 20:14:09* Test Item Value Reference Range Interpretation Comme nts LIPASE (test code = 5630134718) 54 U/L 0-220 Lab Interpretation (test cod e = 04380-6) Normal [facility] CenterCB WITH [id number] 19:57:09* Test Item Value Reference Range Interpretation [...] 33.9 g/dL 31.6-35.1 RDW-SD (test code = 34898-7) 45.5 fL 39.0-49.9 RDW-CV (test code = 788-0) 13.2 % 12.0-15.5 PLT (test code = 777-3) 199 166-358 MPV (test code = 44586-4) 12.1 fL 9.5-12.9 NRBC/100 WBC (test code = 3805214781) 0.0 0.0-10.0 NRBC x10^3 (test code = 3226028580) See_Comment [Automated messa ge] The system which generated this result transmitted reference range: 10*3/?L. The reference range was not used to interpret this result as normal/abnormal. GRAN MAT (NEUT) % (test code = 770-8) 84.1 % IMM GRAN % (test code = 7257439980) 0.30 % LYMPH % (test code = 736-9) 9.8 % MONO % (test code = 5905-5) 5.0 % EOS % (test code = 713-8) 0.2 % BASO % (test code = 706-2) 0.6 % GRAN MAT x10^3(ANC) (test code = 7661337439) 7.64 10*3/uL 1.88-7.09 H IMM GRAN x10^3 (test code = 1554174126) 0.03 10*3/uL 0.00-0.06 LYMPH x10^3 (test code = 731-0) 0.89 10*3/uL 1.32-3.29 L MONO x10^3 (test code = 742-7) 0.45 10*3/uL 0.33-0.92 EOS x10^3 (test code = 711-2) 0.03-0.39 L BASO x10^3 (test code = 704-7) 0.05 10*3/uL 0.01-0.07 Lab Interpretation (test code = 81286-5) Abnormal [facility] CenterMagnesium2024-03-11 10:20:46* Test Item Value Reference Range Interpretation Comme nts MAGNESIUM (test code = 7550175942) 1.9 mg/dL 1.7-2.4 Lab Interpretation (test cod e = 25574-0) Normal [facility] (NA, K, CL, CO2, GLUCOSE, BUN, CREATININE, CA)2024-01-22 10:20:30* Test Item Value Reference Range Interpretation Comme nts NA (test code = 4635594004) 138 mmol/L 135-145 K (test code = 0755832672) 3.7 mmol/L 3.5-5.0 CL (test code = 1933433091) 103 mmol/L 98-108 CO2 TOTAL (test code = 6667949148) 30 mmol/L 23-31 AGAP (test code = 7417491197) 5 2-16 BUN (test code = 3065624748) 9 mg/dL 7-23 GLUCOSE (test code = 7603442193) 119 mg/dL 70-110 H CREATININE (test code = 2160-0) 0.54 mg/dL 0.50-1.04 CALCIUM (test code = 3594725600) 9.1 mg/dL 8.6-10.6 eGFR (test code = 15847-7) 113.7 mL/min/1.73m2 CKD-EPI eGFR (2020). Assuming creatinine has been stable day-to-day for at least three months, the eGFR indicates Category G1 (>= 90 mL/min/1.73 m2) Lab Interpretation (test code = 96880-1) Abnormal [facility] CenterPhosphorus2024-03-11 10:20:30* Test Item Value Reference Range Interpretation Comme nts PHOSPHORUS (test code = 5776836001) 2.9 mg/dL 2.5-5.0 Lab Interpretation (test cod e = 46803-7) Normal [facility] CenterCbc with Vhsr2741-53-03 09:56:45* Test Item Value Reference Range Interpretation [...] g/dL 31.6-35.1 L RDW-SD (test code = 93275-4) 56.9 fL 39.0-49.9 H RDW-CV (test code = 788-0) 16.1 % 12.0-15.5 H PLT (test code = 777-3) 252 166-358 MPV (test code = 99825-8) 11.0 fL 9.5-12.9 NRBC/100 WBC (test code = 0239855035) 0.0 0.0-10.0 NRBC x10^3 (test code = 8260594119) See_Comment [Automated [employer]] The system which generated this result transmitted reference range: 10*3/?L. The reference range was not used to interpret this result as normal/abnormal. GRAN MAT (NEUT) % (test code = 770-8) 76.9 % IMM GRAN % (test code = 5465315032) 0.30 % LYMPH % (test code = 736-9) 10.3 % MONO % (test code = 5905-5) 9.8 % EOS % (test code = 713-8) 2.1 % BASO % (test code = 706-2) 0.6 % GRAN MAT x10^3(ANC) (test code = 8138069053) 6.86 10*3/uL 1.88-7.09 IMM GRAN x10^3 (test code = 8163327023) 0.03 10*3/uL 0.00-0.06 LYMPH x10^3 (test code = 731-0) 0.92 10*3/uL 1.32-3.29 L MONO x10^3 (test code = 742-7) 0.87 10*3/uL 0.33-0.92 EOS x10^3 (test code = 711-2) 0.19 10*3/uL 0.03-0.39 BASO x10^3 (test code = 704-7) 0.05 10*3/uL 0.01-0.07 Lab Interpretation (test code = 91613-2) Abnormal [facility] CenterCT MAXILLOFACIAL/MANDIBLE W [id number] 13:48:06EXAM: CT MAXILLOFACIAL/MANDIBLE W CONTRAST HISTORY: Sublingual/mandibular abscess . History obtained from [facility]: Patient with left jaw pain from suspected [...] air sinuses and mastoid air cells are clear.[facility] with Bpfylpbvxeiq5642-60-28 10:07:07* Test Item Value Reference Range Interpretation [...] 32.4 g/dL 31.6-35.1 RDW-SD (test code = 68186-1) 55.7 fL 39.0-49.9 H RDW-CV (test code = 788-0) 16.6 % 12.0-15.5 H PLT (test code = 777-3) 253 166-358 MPV (test code = 39350-9) 11.9 fL 9.5-12.9 NRBC/100 WBC (test code = 5522574689) 0.0 0.0-10.0 NRBC x10^3 (test code = 5467344015) See_Comment [Automated messa ge] The system which generated this result transmitted reference range: 10*3/?L. The reference range was not used to interpret this result as normal/abnormal. GRAN MAT (NEUT) % (test code = 770-8) 75.8 % IMM GRAN % (test code = 8291748883) 0.50 % LYMPH % (test code = 736-9) 13.5 % MONO % (test code = 5905-5) 8.8 % EOS % (test code = 713-8) 1.0 % BASO % (test code = 706-2) 0.4 % GRAN MAT x10^3(ANC) (test code = 8968280509) 6.32 10*3/uL 1.88-7.09 IMM GRAN x10^3 (test code = 7787227022) 0.04 10*3/uL 0.00-0.06 LYMPH x10^3 (test code = 731-0) 1.12 10*3/uL 1.32-3.29 L MONO x10^3 (test code = 742-7) 0.73 10*3/uL 0.33-0.92 EOS x10^3 (test code = 711-2) 0.08 10*3/uL 0.03-0.39 BASO x10^3 (test code = 704-7) 0.03 10*3/uL 0.01-0.07 Lab Interpretation (test code = 87517-4) Abnormal [facility] CenterCT ABDOMEN PELVIS W [id number] 23:39:33CT ABDOMEN PELVIS W CONTRAST Indication: Abdominal [...] criteria. ?No nondependentfree air. Skeleton: No acute osseouspathology.[facility] Rnkulsa8188-15-65 22:41:52* Test Item Value Reference Range Interpretation Comme nts ALCOHOL (test code = 3677464236) 55 mg/dL THEODORA (test code = THEODORA) <10 Iyadlxwz44-431 Toxic>100 Depression of LAST IRONER>[address] [facility] CenterCOMP. METABOLIC PANEL (29658)2024-01-20 22:41:12* Test Item Value Reference Range Interpretation Comme nts NA (test code = 3640035940) 139 mmol/L 135-145 K (test code = 7602085386) 3.5 mmol/L 3.5-5.0 CL (test code = 2926262205) 106 mmol/L 98-108 CO2 TOTAL (test code = 0417591622) 25 mmol/L 23-31 AGAP (test code = 9939365875) 8 2-16 BUN (test code = 9802200869) 9 mg/dL 7-23 GLUCOSE (test code = 8728017190) 170 mg/dL 70-110 H CREATININE (test code = 2160-0) 0.51 mg/dL 0.50-1.04 TOTAL BILI (test code = 4525471921) 0.7 mg/dL 0.1-1.1 CALCIUM (test code = 7363229543) 9.3 mg/dL 8.6-10.6 T PROTEIN (test code = 7005701974) 7.2 g/dL 6.3-8.2 ALBUMIN (test code = 7687229847) 3.8 g/dL 3.5-5.0 ALK PHOS (test code = 5097321711) 101 U/L 34-122 ALTv (test code = 1742-6) 32 U/L 5-35 AST(SGOT) (test code = 8032851218) 36 U/L 13-40 eGFR (test code = 09315-5) 115.3 mL/min/1.73m2 CKD-EPI eGFR (2020). Assuming creatinine has been stable day-to-day for at least three months, the eGFR indicates Category G1 (>= 90 mL/min/1.73 m2) Lab Interpretation (test code = 06089-3) Abnormal [facility] CenterLIPASE2024-03-09 22:40:52* Test Item Value Reference Range Interpretation Comme nts LIPASE (test code = 4592043310) 54 U/L 0-220 Lab Interpretation (test cod e = 51954-2) Normal [facility] WITH [id number] 22:28:52* Test Item Value Reference Range Interpretation [...] 32.0 g/dL 31.6-35.1 RDW-SD (test code = 86415-6) 55.3 fL 39.0-49.9 H RDW-CV (test code = 788-0) 16.1 % 12.0-15.5 H PLT (test code = 777-3) 254 166-358 MPV (test code = 51143-1) 11.4 fL 9.5-12.9 NRBC/100 WBC (test code = 6621035912) 0.0 0.0-10.0 NRBC x10^3 (test code = 8633256014) See_Comment [Automated messa ge] The system which generated this result transmitted reference range: 10*3/?L. The reference range was not used to interpret this result as normal/abnormal. GRAN MAT (NEUT) % (test code = 770-8) 79.8 % IMM GRAN % (test code = 4624992127) 0.40 % LYMPH % (test code = 736-9) 10.0 % MONO % (test code = 5905-5) 8.8 % EOS % (test code = 713-8) 0.5 % BASO % (test code = 706-2) 0.5 % GRAN MAT x10^3(ANC) (test code = 1375761523) 8.18 10*3/uL 1.88-7.09 H IMM GRAN x10^3 (test code = 4839862125) 0.04 10*3/uL 0.00-0.06 LYMPH x10^3 (test code = 731-0) 1.03 10*3/uL 1.32-3.29 L MONO x10^3 (test code = 742-7) 0.90 10*3/uL 0.33-0.92 EOS x10^3 (test code = 711-2) 0.05 10*3/uL 0.03-0.39 BASO x10^3 (test code = 704-7) 0.05 10*3/uL 0.01-0.07 Lab Interpretation (test code = 15492-6) Abnormal [facility] CenterPOCT [id number] 21:54:00* Test Item Value Reference Range Interpretation Comme nts POCT PREG (test code = 1605) Negative On board controls acceptable with C Line (test code = 3574) Yes POCT PREG LOT # (test code = 3575) [id number] POCT PREG TEST DATE ( test code = 3576) 12-18-2024 Lab Interpretation (test cod e = 54407-4) Normal [facility] CenterHepatic Function Panel (41079) (ALB,T.PRO,BILI T,BU/BC,ALT,AST,ALK PHOS)2023-11-05 16:18:48* Test Item Value Reference Range Interpretation Comme nts TOTAL BILI (test code = 2743380864) 0.6 mg/dL 0.1-1.1 BILI UNCON (test code = 6537361923) 0.3 mg/dL 0.1-1.1 BILI CONJ (test code = 9623699303) 0.0 mg/dL 0.0-0.3 T PROTEIN (test code = 0162212127) 6.1 g/dL 6.3-8.2 L ALBUMIN (test code = 9588130367) 3.1 g/dL 3.5-5.0 L ALK PHOS (test code = 3263067294) 77 U/L 34-122 ALTv (test code = 1742-6) 36 U/L 5-35 H AST(SGOT) (test code = 7254946133) 41 U/L 13-40 H Lab Interpretation (test cod e = 50861-3) Abnormal [facility] with Dydakzuwwxcz9619-40-78 10:25:09* Test Item Value Reference Range Interpretation [...] g/dL 31.6-35.1 L RDW-SD (test code = 10819-4) 51.1 fL 39.0-49.9 H RDW-CV (test code = 788-0) 15.2 % 12.0-15.5 PLT (test code = 777-3) 200 See_Comment [Automated messa ge] The system which generated this result transmitted reference range: 166 - 358 10*3/?L. The reference range was not used to interpret this result as normal/abnormal. MPV (test code = 50911-0) 10.8 fL 9.5-12.9 NRBC/100 WBC (test code = 0956693727) 0.0 See_Comment [Automated [employer]] The system which generated this result transmitted reference range: 0.0 - 10.0 /100 WBCs. The reference range was not used to interpret this result as normal/abnormal. NRBC x10^3 (test code = 3051340544) See_Comment [Automated messa ge] The system which generated this result transmitted reference range: 10*3/?L. The reference range was not used to interpret this result as normal/abnormal. GRAN MAT (NEUT) % (test code = 770-8) 67.9 % IMM GRAN % (test code = 4774574898) 0.40 % LYMPH % (test code = 736-9) 19.4 % MONO % (test code = 5905-5) 8.0 % EOS % (test code = 713-8) 3.7 % BASO % (test code = 706-2) 0.6 % GRAN MAT x10^3(ANC) (test code = 2194331266) 4.77 10*3/uL 1.88-7.09 IMM GRAN x10^3 (test code = 2456680555) 0.03 10*3/uL 0.00-0.06 LYMPH x10^3 (test code = 731-0) 1.36 10*3/uL 1.32-3.29 MONO x10^3 (test code = 742-7) 0.56 10*3/uL 0.33-0.92 EOS x10^3 (test code = 711-2) 0.26 10*3/uL 0.03-0.39 BASO x10^3 (test code = 704-7) 0.04 10*3/uL 0.01-0.07 Lab Interpretation (test code = 17987-6) Abnormal [facility] CenterMagnesium Xbaaf6617-41-53 10:24:49* Test Item Value Reference Range Interpretation Comme nts MAGNESIUM (test code = 6771565214) 1.7 mg/dL 1.7-2.4 Lab Interpretation (test cod e = 41622-8) Normal [facility] (NA, K, CL, CO2, GLUCOSE, BUN, CREATININE, CA)2023-11-05 10:24:29* Test Item Value Reference Range Interpretation Comme nts NA (test code = 9226127444) 138 mmol/L 135-145 K (test code = 5581431052) 3.5 mmol/L 3.5-5.0 CL (test code = 4681040767) 107 mmol/L 98-108 CO2 TOTAL (test code = 6193924597) 26 mmol/L 23-31 AGAP (test code = 2406705676) 5 2-16 BUN (test code = 2866370615) 7 mg/dL 7-23 GLUCOSE (test code = 5914586453) 112 mg/dL 70-110 H CREATININE (test code = 1031713164) 0.41 mg/dL 0.50-1.04 L CALCIUM (test code = 7150777455) 7.3 mg/dL 8.6-10.6 L eGFR (test code = 69341-1) 121.5 mL/min/1.73m2 CKD-EPI eGFR (2020). Assuming creatinine has been stable day-to-day for at least three months, the eGFR indicates Category G1 (>= 90 mL/min/1.73 m2) Lab Interpretation (test code = 19141-7) Abnormal [facility] CenterLipase2023-12-24 10:23:48* Test Item Value Reference Range Interpretation Comme nts LIPASE (test code = 0183170788) 644 U/L 0-220 H Lab Interpretation (test cod e = 20699-7) Abnormal [facility] CenterMagnesium2023-12-23 16:04:01* Test Item Value Reference Range Interpretation Comme nts MAGNESIUM (test code = 1783103828) 1.3 mg/dL 1.7-2.4 L Lab Interpretation (test cod e = 42400-4) Abnormal [facility] CenterHEPATIC FUNCTION PANEL (74700) (ALB,T.PRO,BILI T,BU/BC,ALT,AST,ALK PHOS)2023-11-04 10:58:24* Test Item Value Reference Range Interpretation Comme nts TOTAL BILI (test code = 4598487314) 0.6 mg/dL 0.1-1.1 BILI UNCON (test code = 8434771525) 0.3 mg/dL 0.1-1.1 BILI CONJ (test code = 8700127744) 0.0 mg/dL 0.0-0.3 T PROTEIN (test code = 3760179084) 7.0 g/dL 6.3-8.2 ALBUMIN (test code = 6480157870) 3.9 g/dL 3.5-5.0 ALK PHOS (test code = 3590343550) 110 U/L 34-122 ALTv (test code = 1742-6) 56 U/L 5-35 H AST(SGOT) (test code = 7193680026) 62 U/L 13-40 H Lab Interpretation (test cod e = 23698-4) Abnormal [facility] CenterPhosphorus Magte8137-62-53 10:58:04* Test Item Value Reference Range Interpretation Comme nts PHOSPHORUS (test code = 4494404039) 2.7 mg/dL 2.5-5.0 Lab Interpretation (test cod e = 00638-9) Normal [facility] CenterTROPONIN [id number] 05:48:10* Test Item Value Reference Range Interpretation Comme nts TROPONIN I (test code = 2875327690) <=0.034 THEODORA (test code = THEODORA) Reference [...] of biotin. Lab Interpretation (test code = 44061-3) Normal [facility] CenterCOMP. METABOLIC PANEL (40627)2023-11-04 05:39:05* Test Item Value Reference Range Interpretation Comme nts NA (test code = 9181995682) 136 mmol/L 135-145 K (test code = 3539771608) 2.6 mmol/L 3.5-5.0 LL CL (test code = 2109981286) 101 mmol/L 98-108 CO2 TOTAL (test code = 2541642653) 26 mmol/L 23-31 AGAP (test code = 4979746344) 9 2-16 BUN (test code = 9639520666) 20 mg/dL 7-23 GLUCOSE (test code = 7058061071) 180 mg/dL 70-110 H CREATININE (test code = 8617167500) 0.64 mg/dL 0.50-1.04 TOTAL BILI (test code = 2003728394) 0.6 mg/dL 0.1-1.1 CALCIUM (test code = 2449675092) 9.0 mg/dL 8.6-10.6 T PROTEIN (test code = 4630826468) 7.0 g/dL 6.3-8.2 ALBUMIN (test code = 5984499164) 4.0 g/dL 3.5-5.0 ALK PHOS (test code = 9523470660) 111 U/L 34-122 ALTv (test code = 1742-6) 56 U/L 5-35 H AST(SGOT) (test code = 9235048545) 50 U/L 13-40 H eGFR (test code = 06056-1) 109.2 mL/min/1.73m2 CKD-EPI eGFR (2020). Assuming creatinine has been stable day-to-day for at least three months, the eGFR indicates Category G1 (>= 90 mL/min/1.73 m2) Lab Interpretation (test code = 66496-6) Abnormal [facility] CenterLIPASE2023-12-23 05:37:09* Test Item Value Reference Range Interpretation Comme nts LIPASE (test code = 8240776054) 1327 U/L 0-220 H Lab Interpretation (test cod e = 54830-7) Abnormal [facility] CenterCB WITH [id number] 05:14:06* Test Item Value Reference Range Interpretation Comme nts WBC (test code = 6690-2) 8.96 See_Comment [Automated [employer]] The system which generated this result transmitted reference range: 4.30 - 11.10 10*3/?L. The reference range was not used to interpret this result as normal/abnormal. RBC (test code = 789-8) 4.18 See_Comment [Automated [employer]] The system which generated this result transmitted [...] 32.4 g/dL 31.6-35.1 RDW-SD (test code = 99814-0) 47.8 fL 39.0-49.9 RDW-CV (test code = 788-0) 14.7 % 12.0-15.5 PLT (test code = 777-3) 243 See_Comment [Automated messa ge] The system which generated this result transmitted reference range: 166 - 358 10*3/?L. The reference range was not used to interpret this result as normal/abnormal. MPV (test code = 38362-5) 10.0 fL 9.5-12.9 NRBC/100 WBC (test code = 7914935746) 0.0 See_Comment [Automated [employer] ssage] The system which generated this result transmitted reference range: 0.0 - 10.0 /100 WBCs. The reference range was not used to interpret this result as normal/abnormal. NRBC x10^3 (test code = 8317058788) See_Comment [Automated messa ge] The system which generated this result transmitted reference range: 10*3/?L. The reference range was not used to interpret this result as normal/abnormal. GRAN MAT (NEUT) % (test code = 770-8) 86.6 % IMM GRAN % (test code = 6384542887) 0.40 % LYMPH % (test code = 736-9) 7.5 % MONO % (test code = 5905-5) 4.9 % EOS % (test code = 713-8) 0.2 % BASO % (test code = 706-2) 0.4 % GRAN MAT x10^3(ANC) (test code = 5273655339) 7.75 10*3/uL 1.88-7.09 H IMM GRAN x10^3 (test code = 2830361263) 0.04 10*3/uL 0.00-0.06 LYMPH x10^3 (test code = 731-0) 0.67 10*3/uL 1.32-3.29 L MONO x10^3 (test code = 742-7) 0.44 10*3/uL 0.33-0.92 EOS x10^3 (test code = 711-2) 0.03-0.39 L BASO x10^3 (test code = 704-7) 0.04 10*3/uL 0.01-0.07 Lab Interpretation (test code = 38745-5) [facility]normal [id number]:15:37* Test Item Value Reference Range Interpretation Comme nts TROPONIN I (test code = 0485216136) 0.002 ng/mL <=0.034 THEODORA (test code = [...] of biotin. Lab Interpretation (test code = 42169-0) Normal [facility] (94525)2023-09-15 15:15:32* Test Item Value Reference Range Interpretation Comme nts NA (test code = 0295016341) 136 mmol/L 135-145 K (test code = 3453820098) 3.5 mmol/L 3.5-5.0 CL (test code = 9912773437) 103 mmol/L 98-108 CO2 TOTAL (test code = 7020756434) 20 mmol/L 23-31 L AGAP (test code = 6471954534) 13 2-16 BUN (test code = 7414224232) 11 mg/dL 7-23 GLUCOSE (test code = 2127223113) 213 mg/dL 70-110 H CREATININE (test code = 5504248996) 0.40 mg/dL 0.50-1.04 L TOTAL BILI (test code = 2762656573) 0.6 mg/dL 0.1-1.1 CALCIUM (test code = 7208641267) 9.1 mg/dL 8.6-10.6 T PROTEIN (test code = 5235094535) 7.0 g/dL 6.3-8.2 ALBUMIN (test code = 9313301649) 3.9 g/dL 3.5-5.0 ALK PHOS (test code = 2136332829) 99 U/L 34-122 ALTv (test code = 1742-6) 73 U/L 5-35 H AST(SGOT) (test code = 0546070725) 45 U/L 13-40 H eGFR (test code = 28080-2) 123.0 mL/min/1.73m2 CKD-EPI eGFR (2020). Assuming creatinine has been stable day-to-day for at least three months, the eGFR indicates Category G1 (>= 90 mL/min/1.73 m2) Lab Interpretation (test code = 29224-3) Abnormal [id number] 15:12:54* Test Item Value Reference Range Interpretation Comme nts NT-proBNP (test code = 42945-3) 1430 pg/mL <=125 H THEODORA (test code = THEODORA) Positive: Heart Failure Likely Lab Interpretation (test code = 14392-5) Abnormal [facility] [id number] 14:52:53* Test Item Value Reference Range Interpretation Comme nts WBC (test code = 6690-2) 10.69 See_Comment [Automated [employer]] The system which generated this result transmitted reference range: 4.30 - 11.10 10*3/?L. The reference range was not used to interpret this result as normal/abnormal. RBC (test code = 789-8) 3.59 See_Comment L [Automated [employer] ge] The system which generated this result [...] 32.2 g/dL 31.6-35.1 RDW-SD (test code = 97141-7) 46.1 fL 39.0-49.9 RDW-CV (test code = 788-0) 13.5 % 12.0-15.5 PLT (test code = 777-3) 272 See_Comment [Automated [employer] ge] The system which generated this result transmitted reference range: 166 - 358 10*3/?L. The reference range was not used to interpret this result as normal/abnormal. MPV (test code = 08177-7) 10.6 fL 9.5-12.9 NRBC/100 WBC (test code = 0465874868) 0.0 See_Comment [Automated [employer] ssage] The system which generated this result transmitted reference range: 0.0 - 10.0 /100 WBCs. The reference range was not used to interpret this result as normal/abnormal. NRBC x10^3 (test code = 9363854653) See_Comment [Automated [employer] ge] The system which generated this result transmitted reference range: 10*3/?L. The reference range was not used to interpret this result as normal/abnormal. GRAN MAT (NEUT) % (test code = 770-8) 82.1 % IMM GRAN % (test code = 6301993465) 0.50 % LYMPH % (test code = 736-9) 10.2 % MONO % (test code = 5905-5) 5.1 % EOS % (test code = 713-8) 1.5 % BASO % (test code = 706-2) 0.6 % GRAN MAT x10^3(ANC) (test code = 3603810688) 8.79 10*3/uL 1.88-7.09 H IMM GRAN x10^3 (test code = 1841830134) 0.05 10*3/uL 0.00-0.06 LYMPH x10^3 (test code = 731-0) 1.09 10*3/uL 1.32-3.29 L MONO x10^3 (test code = 742-7) 0.54 10*3/uL 0.33-0.92 EOS x10^3 (test code = 711-2) 0.16 10*3/uL 0.03-0.39 BASO x10^3 (test code = 704-7) 0.06 10*3/uL 0.01-0.07 Lab Interpretation (test code = 82198-6) Abnormal [facility] W YKUJSGOF7309-37-17 07:23:03Mild patchy groundglass attenuation in the right middle lobe, possiblyrepresenting a small focus ofaspiration or pneumonia. Stable bilateral adrenal nodules. Thickening of the wall of the descendingcolon, suggestive of colitis.Compared to the prior study, the extent of involvement is less pronounc ed,with primary involvement of the descending colon rather than pancolitis. RL: 460 AFC: 71714 Ordering physician: RUTH WATTS Indication: Diffuse abdominal [...] the descending colon rather than pancolitis.RL: 460AFC: 26859 [facility]XR [facility]ST 1 IR8491-11-78 06:37:24Impression: Mild cardiomegaly without acute pulmonary process. RL: 460 AFC: 09315 Ordering physician: RUTH WATTS Indication: Shortness of [...] cardiomegaly wi thout acute pulmonary process.RL: 460AFC: 83356Kvvejwjirsixla signed by Alexsandra Suazo MD, PhD at 04/30/2021 1:37 [facility] [id number] 05:55:52* Test Item Value Reference Range Interpretation Comme nts TROPONIN I (test code = 9656904718) 0.004 ng/mL See_Comment [Automated message] The system [...] biotin. ? Lab Interpretation (test code = 89232-8) Normal [facility] METABOLIC PANEL (71258)2021-04-30 05:55:07* Test Item Value Reference Range Interpretation Comme nts NA (test code = 1833698281) 135 mmol/L 135-145 K (test code = 9883455853) 3.6 mmol/L 3.5-5.0 CL (test code = 7285602903) 103 mmol/L 98-108 CO2 TOTAL (test code = 0737445698) 27 mmol/L 23-31 AGAP (test code = 6592239721) 2-16 BUN (test code = 8589869455) 11 mg/dL 7-23 GLUCOSE (test code = 8899161547) 80 mg/dL 70-110 CREATININE (test code = 2686945454) 0.42 mg/dL 0.50-1.04 L TOTAL BILI (test code = 7776787040) 0.7 mg/dL 0.1-1.1 CALCIUM (test code = 6568147114) 10.0 mg/dL 8.6-10.6 T PROTEIN (test code = 9741528691) 7.4 g/dL 6.3-8.2 ALBUMIN (test code = 8288058717) 4.2 g/dL 3.5-5.0 ALK PHOS (test code = 8233489335) 80 U/L 34-122 ALTv (test code = 1742-6) 19 U/L 5-35 AST(SGOT) (test code = 6315048877) 45 U/L 13-40 H eGFR (test code = 7501833097) mL/min/1.73m2 THEODORA (test code = THEODORA) Association [...] imaging tests). Lab Interpretation (test code = 54249-0) Abnormal [facility]21-[facility] 05:44:12* Test Item Value Reference Range Interpretation Comme nts LIPASE (test code = 1392928844) 39 U/L 0-220 Lab Interpretation (test cod e = 45668-8) Normal [facility]COVID[facility] (ID NOW RAPID TESTING)2021-04-30 05:36:54* Test Item Value Reference Range Interpretation Comme nts SARS-CoV-2 Rapid ID NOW (test code = 02620-0) Not Detected Not Detected THEODORA (test code = THEODORA) ID NOW COVID-19 As say is an isothermal nucleic acid amplification test intended for the qualitative detection of nucleic acid from SARS-CoV-2 viral RNA in nasopharyngeal (ROLL OFF DRIVER) specimens. It is used under Emergency Use [...] clinically indicated. Lab Interpretation (test code = 60558-5) Normal [facility]CBC WITH [id number] 05:21:49* Test Item Value Reference Range Interpretation [...] 32.8 g/dL 31.6-35.1 RDW-SD (test code = 21358-6) 54.4 fL 39.0-49.9 H RDW-CV (test code = 788-0) 16.7 % 12.0-15.5 H PLT (test code = 777-3) See_Comment [Automated message] The system which generated this result transmitted reference range: 166 - 358 10*3/?L. The reference range was not used to interpret this result as normal/abnormal. MPV (test code = 12015-8) 9.9 fL 9.5-12.9 NRBC/100 WBC (test code = 3071048442) See_Comment [Automated message] The system which generated this result transmitted reference range: 0.0 - 10.0 /100 WBCs. The reference range was not used to interpret this result as normal/abnormal. NRBC x10^3 (test code = 4012015146) <0.01 See_Comment [Automated message] The system which generated this result transmitted reference range: 10*3/?L. The reference range was not used to interpret this result as normal/abnormal. GRAN MAT (NEUT) % (test code = 770-8) 75.0 % IMM GRAN % (test code = 7162103815) 1.00 % LYMPH % (test code = 736-9) 15.7 % MONO % (test code = 5905-5) 6.6 % EOS % (test code = 713-8) 1.2 % BASO % (test code = 706-2) 0.5 % GRAN MAT x10^3(ANC) (test code = 0462354696) 12.35 10*3/uL 1.88-7.09 H IMM GRAN x10^3 (test code = 0941556169) 0.16 10*3/uL 0.00-0.06 H LYMPH x10^3 (test code = 731-0) 2.58 10*3/uL 1.32-3.29 MONO x10^3 (test code = 742-7) 1.09 10*3/uL 0.33-0.92 H EOS x10^3 (test code = 711-2) 0.20 10*3/uL 0.03-0.39 BASO x10^3 (test code = 704-7) 0.09 10*3/uL 0.01-0.07 H Lab Interpretation (test code = 08008-2) Abnormal [facility] METABOLIC PANEL (NA, K, CL, CO2, GLUCOSE, BUN, CREATININE, CA)2021-04-20 09:57:13* Test Item Value Reference Range Interpretation Comme nts NA (test code = 0755384180) 139 mmol/L 135-145 K (test code = 7791552503) 3.9 mmol/L 3.5-5.0 CL (test code = 9229826057) 107 mmol/L 98-108 CO2 TOTAL (test code = 5205876069) 25 mmol/L 23-31 AGAP (test code = 8859141233) 2-16 BUN (test code = 6342878508) 4 mg/dL 7-23 L GLUCOSE (test code = 8828693101) 93 mg/dL 70-110 CREATININE (test code = 0299737983) 0.47 mg/dL 0.50-1.04 L CALCIUM (test code = 4450683208) 10.1 mg/dL 8.6-10.6 eGFR (test code = 5056046109) mL/min/1.73m2 THEODORA (test code = THEODORA) Association [...] imaging tests). Lab Interpretation (test code = 11988-7) Abnormal [facility] CenterMAGNESIUM2021-06-08 09:57:13* Test Item Value Reference Range Interpretation Comme nts MAGNESIUM (test code = 7000682585) 1.8 mg/dL 1.7-2.4 Lab Interpretation (test cod e = 16698-5) Normal [facility]ASE2021-06-08 09:56:32* Test Item Value Reference Range Interpretation Comme nts LIPASE (test code = 5247767959) 21 U/L 0-220 Lab Interpretation (test cod e = 90353-0) Normal [facility] CenterCB WITH [id number] 09:36:49* Test Item Value Reference Range Interpretation Comme nts WBC (test code = 6690-2) See_Comment H [Automated [employer]] The system which generated this result transmitted reference range: 4.30 - 11.10 10*3/?L. The reference range was not used to interpret this result as normal/abnormal. RBC (test code = 789-8) See_Comment [Automated [employer]] The system which generated this result transmitted [...] 32.2 g/dL 31.6-35.1 RDW-SD (test code = 05044-0) 55.2 fL 39.0-49.9 H RDW-CV (test code = 788-0) 16.8 % 12.0-15.5 H PLT (test code = 777-3) See_Comment [Automated [employer] ge] The system which generated this result transmitted reference range: 166 - 358 10*3/?L. The reference range was not used to interpret this result as normal/abnormal. MPV (test code = 60807-5) 11.0 fL 9.5-12.9 NRBC/100 WBC (test code = 0266778616) See_Comment [Automated [employer]] The system which generated this result transmitted reference range: 0.0 - 10.0 /100 WBCs. The reference range was not used to interpret this result as normal/abnormal. NRBC x10^3 (test code = 9512383275) <0.01 See_Comment [Automated [employer] ge] The system which generated this result transmitted reference range: 10*3/?L. The reference range was not used to interpret this result as normal/abnormal. GRAN MAT (NEUT) % (test code = 770-8) 72.1 % IMM GRAN % (test code = 7444556137) 0.70 % LYMPH % (test code = 736-9) 18.5 % MONO % (test code = 5905-5) 6.9 % EOS % (test code = 713-8) 1.2 % BASO % (test code = 706-2) 0.6 % GRAN MAT x10^3(ANC) (test code = 8221065592) 9.92 10*3/uL 1.88-7.09 H IMM GRAN x10^3 (test code = 0059150779) 0.10 10*3/uL 0.00-0.06 H LYMPH x10^3 (test code = 731-0) 2.55 10*3/uL 1.32-3.29 MONO x10^3 (test code = 742-7) 0.95 10*3/uL 0.33-0.92 H EOS x10^3 (test code = 711-2) 0.16 10*3/uL 0.03-0.39 BASO x10^3 (test code = 704-7) 0.08 10*3/uL 0.01-0.07 H Lab Interpretation (test code = 68663-6) Abnormal [facility] CenterFECAL OQMHMYCXSR5016-38-64 20:28:26* Test Item Value Reference Range Interpretation Comme nts Fecal Leukocytes (test code = 5139905047) Negative Negative Lab Interpretation (test cod e = 36981-3) Normal [facility] CenterLAB ONLY COVID LHPTJLCIGIYWAE4576-87-72 17:28:19COVID DMT InterpretationInterpretation/Recommendations: Molecular NAAT Tests for Active Infection with the SARS-CoV-2 Virus: The patient has currently tested negative for the SARS-CoV-2 virus that causes COVID-19 illness. This most likely indicates that the patient does not have an active infectionwith the SARS-CoV-2 virus. However, infection is not completely ruled out as the false negative rate for molecular NAAT testing using a nasopharyngeal sample can be up to 30%, mostly dependent on thetiming of sample collection in relation to illness [...] COVID-19 testing the patient has had at [facility], including molecular NAAT testing (more commonly known as PCR testing and Rapid ID Now testing) and antibody testing. It does not take into account any testing that a patient has had outside of the [facility] medical record. [facility] LABORATORY SERVICESCOVID HowyhaaJNHF-PfV-7 Rapid ID NOW (no units) ? ? Date ? Value ? 04/18/2021 ? Not Detected ? ? ? 03/07/2021 ? Not Detected ? ? ? 01/22/2021? Not Detected ? ? ? 10/28/2020 ? Not Detected ? ? ? 09/28/2020 ? Not Detected ? ? ? 08/03/2020 ? Not Detected ? ? ? 05/21/2020 ? Not Detected ? ? ? 05/16/2020 ? Not Detected ? ? ? 04/05/2020 ? Not Detected ? ? ? 03/02/2020 ? Not Detected ? [facility] LABORATORY SERVICESSt. [facility] Medical CenterUrine Jpkwgcg1806-35-86 16:27:48* Test Item Value Reference Range Interpretation Comme nts URINE CULTURE (test code = 630-4) No aerobic growth (< 1000 CFU/mL) [facility]Basic Met[facility] Panel (NA, K, CL, CO2, GLUCOSE, BUN, CREATININE, CA)2021-04-19 10:41:34* Test Item Value Reference Range Interpretation Comme nts NA (test code = 0571446332) 141 mmol/L 135-145 K (test code = 6926998498) 3.9 mmol/L 3.5-5.0 CL (test code = 2267136176) 109 mmol/L 98-108 H CO2 TOTAL (test code = 8995308575) 24 mmol/L 23-31 AGAP (test code = 4193477559) 2-16 BUN (test code = 4311107715) 8 mg/dL 7-23 GLUCOSE (test code = 0407224355) 99 mg/dL 70-110 CREATININE (test code = 4249057399) 0.49 mg/dL 0.50-1.04 L CALCIUM (test code = 1243164857) 10.5 mg/dL 8.6-10.6 eGFR (test code = 3745583863) mL/min/1.73m2 THEODORA (test code = THEODORA) Association [...] imaging tests). Lab Interpretation (test code = 56404-7) Abnormal [facility] CenterMagnesium Rdylc5628-91-69 10:23:08* Test Item Value Reference Range Interpretation Comme nts MAGNESIUM (test code = 3980495086) 1.9 mg/dL 1.7-2.4 Lab Interpretation (test cod e = 99768-0) Normal [facility] CenterCB with Opmivtyvvakx1511-73-46 09:34:01* Test Item Value Reference Range Interpretation [...] 32.7 g/dL 31.6-35.1 RDW-SD (test code = 08840-6) 56.8 fL 39.0-49.9 H RDW-CV (test code = 788-0) 17.5 % 12.0-15.5 H PLT (test code = 777-3) See_Comment [Automated message] The system which generated this result transmitted reference range: 166 - 358 10*3/?L. The reference range was not used to interpret this result as normal/abnormal. MPV (test code = 22661-2) 10.5 fL 9.5-12.9 NRBC/100 WBC (test code = 8315333358) See_Comment [Automated message] The system which generated this result transmitted reference range: 0.0 - 10.0 /100 WBCs. The reference range was not used to interpret this result as normal/abnormal. NRBC x10^3 (test code = 6129433205) <0.01 See_Comment [Automated message] The system which generated this result transmitted reference range: 10*3/?L. The reference range was not used to interpret this result as normal/abnormal. GRAN MAT (NEUT) % (test code = 770-8) 76.6 % IMM GRAN % (test code = 0535805421) 0.50 % LYMPH % (test code = 736-9) 15.7 % MONO % (test code = 5905-5) 6.1 % EOS % (test code = 713-8) 0.7 % BASO % (test code = 706-2) 0.4 % GRAN MAT x10^3(ANC) (test code = 6556244771) 11.95 10*3/uL 1.88-7.09 H IMM GRAN x10^3 (test code = 2992447203) 0.08 10*3/uL 0.00-0.06 H LYMPH x10^3 (test code = 731-0) 2.46 10*3/uL 1.32-3.29 MONO x10^3 (test code = 742-7) 0.96 10*3/uL 0.33-0.92 H EOS x10^3 (test code = 711-2) 0.11 10*3/uL 0.03-0.39 BASO x10^3 (test code = 704-7) 0.06 10*3/uL 0.01-0.07 Lab Interpretation (test code = 06142-4) Abnormal [facility] CenterPROCALCITONIN2021-06-07 06:16:05* Test Item Value Reference Range Interpretation Comme nts Procalcitonin (test code = 5168804793) 0.02 ng/mL <0.07 THEODORA (test code = [...] lung abscess/empyema. For further information please refer to:[email or web address] Lab Interpretation (test code = 00933-1) Normal [facility] CenterPhosphorus Medic4614-85-35 22:28:07* Test Item Value Reference Range Interpretation Comme nts PHOSPHORUS (test code = 5051810504) 2.2 mg/dL 2.5-5.0 L Lab Interpretation (test cod e = 94815-4) Abnormal [facility] CenterLactic Acid Whole Yzqcm3837-73-99 22:19:30* Test Item Value Reference Range Interpretation Comme nts LACTIC ACID (test code = 6057714488) 1.43 mmol/L 0.50-2.20 Lab Interpretation (test cod e = 14013-7) Normal [facility] CenterCT ABDOMEN PELVIS W LOERHIGZ5686-75-72 20:19:241. ?No acute intra-abdominal abnormality. 2. ?Similar appearance of prominent gastric folds at the gastricantrum/pylorus as well as prominent colonic thickening at the distaldescending and sigmoid colon. 3. ?Stable appearance of indeterminate adrenal nodules and groundglassopacities at the bilateral lungs. Preliminary Report Dictated by Resident: Javi Awad MD., have reviewed this study and agree [...] this study and agree with theabove report. [facility] CenterETHANOL2021-06-06 18:13:26* Test Item Value Reference Range Interpretation Comme nts ALCOHOL (test code = 8157348701) <10 mg/dL THEODORA (test code = THEODORA) <10 Ihshyuon71-349 Toxic>100 Depression of LAST IRONER>[address] [facility] CenterDRUG SCREEN PANEL 2 JJUAM7144-64-41 17:54:21* Test Item Value Reference Range Interpretation Comme nts AMPHET (test code = 3990009483) Negative Negative KOTA U (test code = 1951433348) Negative Negative BENZO U (test code = 6321876757) Presumptive Positive Negative A Cocaine Metabolite (test code = 0626384510) Negative Negative METHADONE (test code = 4649281792) Negative Negative OPIATES (test code = 1476227399) Presumptive Positive Negative A PCP (test code = 5564953180) Negative Negative THC (test code = 3034259063) Presumptive Positive Negative A THEODORA (test code [...] legal testing). Lab Interpretation (test code = 04785-3) Abnormal [facility] CenterLactic Acid Whole Dmfkq8694-40-50 17:37:56* Test Item Value Reference Range Interpretation Comme nts LACTIC ACID (test code = 1740163024) 3.24 mmol/L 0.50-2.20 H Lab Interpretation (test cod e = 69577-9) Abnormal [facility] CenterUrinalysis2021-06-06 17:09:41* Test Item Value Reference Range Interpretation Comme nts APPEARANCE (test code = 4179460892) Hazy Clear A COLOR (test code = 8923712126) Yellow Yellow PH (test code = 5193475223) 4.8-8.0 A SP GRAVITY (test code = 2839381552) 1.003-1.030 GLU U QUAL (test code = 1352549249) 50 mg/dL Normal A BLOOD (test code = 1501427813) Negative Negative KETONES (test code = 5286160624) 5 mg/dL Negative A PROTEIN (test code = 2887-8) 30 mg/dL Negative A UROBILIN (test code = 7102969512) Normal Normal BILIRUBIN (test code = 0022506379) Negative Negative NITRITE (test code = 1188110345) Negative Negative LEUK BIRDIE (test code = 3591922151) Negative Negative RBC/HPF (test code = 5867143369) See_Comment H [Automated messa ge] The system which generated this result transmitted reference range: 0 - 3 HPF. The reference range was not used to interpret this result as normal/abnormal. WBC/HPF (test code = 8340398517) See_Comment H [Automated messa ge] The system which generated this result transmitted reference range: 0 - 5 HPF. The reference range was not used to interpret this result as normal/abnormal. BACTERIA (test code = 7359014763) Many Negative A MUCOUS (test code = 0451996486) Slight Negative LPF A SQ EPITH (test code = 5536548205) HPF Lab Interpretation (test code = 45290-4) Abnormal [facility] CenterCOVID-19 (ID NOW RAPID TESTING)2021-04-18 16:52:35* Test Item Value Reference Range Interpretation Comme nts SARS-CoV-2 Rapid ID NOW (test code = 49806-9) Not Detected Not Detected THEODORA (test code = THEODORA) ID NOW COVID-19 As say is an isothermal nucleic acid amplification test intended for the qualitative detection of nucleic acid from SARS-CoV-2 viral RNA in nasopharyngeal (ROLL OFF DRIVER) specimens. It is used under Emergency Use [...] clinically indicated. Lab Interpretation (test code = 26991-4) Normal [facility] CenterPOCT SXYQ7266-64-79 16:45:00* Test Item Value Reference Range Interpretation Comme nts POCT PREG (test code = 1605) negative On board controls acceptable with C Line (test code = 3574) present POCT PREG LOT # (test code = 3575) [id number] POCT PREG TEST DATE ( test code = 3576) 10/12/2022 Lab Interpretation (test cod e = 69448-1) Normal [facility] CenterCB with Fwqlejvzlgqs2982-69-02 16:36:18* Test Item Value Reference Range Interpretation [...] 33.0 g/dL 31.6-35.1 RDW-SD (test code = 93294-0) 53.9 fL 39.0-49.9 H RDW-CV (test code = 788-0) 16.7 % 12.0-15.5 H PLT (test code = 777-3) See_Comment [Automated message] The system which generated this result transmitted reference range: 166 - 358 10*3/?L. The reference range was not used to interpret this result as normal/abnormal. MPV (test code = 78583-7) 10.7 fL 9.5-12.9 NRBC/100 WBC (test code = 7292303702) See_Comment [Automated message] The system which generated this result transmitted reference range: 0.0 - 10.0 /100 WBCs. The reference range was not used to interpret this result as normal/abnormal. NRBC x10^3 (test code = 1678774783) <0.01 See_Comment [Automated message] The system which generated this result transmitted reference range: 10*3/?L. The reference range was not used to interpret this result as normal/abnormal. GRAN MAT (NEUT) % (test code = 770-8) 91.6 % IMM GRAN % (test code = 4572694605) 0.70 % LYMPH % (test code = 736-9) 4.0 % MONO % (test code = 5905-5) 3.3 % EOS % (test code = 713-8) 0.0 % BASO % (test code = 706-2) 0.4 % GRAN MAT x10^3(ANC) (test code = 1298486398) 22.53 10*3/uL 1.88-7.09 H IMM GRAN x10^3 (test code = 1161516631) 0.16 10*3/uL 0.00-0.06 H LYMPH x10^3 (test code = 731-0) 0.99 10*3/uL 1.32-3.29 L MONO x10^3 (test code = 742-7) 0.80 10*3/uL 0.33-0.92 EOS x10^3 (test code = 711-2) <0.03 0.03-0.39 L BASO x10^3 (test code = 704-7) 0.09 10*3/uL 0.01-0.07 H Lab Interpretation (test code = 90274-5) Abnormal [facility]. METABOLIC PANEL (51044)2021-04-18 16:14:51* Test Item Value Reference Range Interpretation Comme nts NA (test code = 1169317227) 140 mmol/L 135-145 K (test code = 5389802557) 3.2 mmol/L 3.5-5.0 L CL (test code = 7414921847) 105 mmol/L 98-108 CO2 TOTAL (test code = 5141250803) 23 mmol/L 23-31 AGAP (test code = 1751675574) 2-16 BUN (test code = 2401540621) 17 mg/dL 7-23 GLUCOSE (test code = 4820504314) 178 mg/dL 70-110 H CREATININE (test code = 8214119875) 0.60 mg/dL 0.50-1.04 TOTAL BILI (test code = 0419288627) 0.9 mg/dL 0.1-1.1 CALCIUM (test code = 6310602995) 10.7 mg/dL 8.6-10.6 H T PROTEIN (test code = 8316060004) 8.3 g/dL 6.3-8.2 H ALBUMIN (test code = 6278975197) 4.8 g/dL 3.5-5.0 ALK PHOS (test code = 9857092197) 129 U/L 34-122 H ALTv (test code = 1742-6) 23 U/L 5-35 AST(SGOT) (test code = 5166045186) 36 U/L 13-40 eGFR (test code = 4370348566) mL/min/1.73m2 THEODORA (test code = THEODORA) Association [...] imaging tests). Lab Interpretation (test code = 93045-3) Abnormal [facility] CenterLIPASE2021-06-06 16:14:31* Test Item Value Reference Range Interpretation Comme nts LIPASE (test code = 4628985837) 33 U/L 0-220 Lab Interpretation (test cod e = 83498-0) Normal [facility] CenterCB WITH NLMJ3242-15-09 09:40:02* Test Item Value Reference Range Interpretation Comme nts WBC (test code = 6690-2) See_Comment [Automated [employer]] The system which generated this result transmitted reference range: 4.30 - 11.10 10*3/?L. The reference range was not used to interpret this result as normal/abnormal. RBC (test code = 789-8) See_Comment [Automated [employer]] The system which generated this result transmitted [...] 31.9 g/dL 31.6-35.1 RDW-SD (test code = 31747-5) 50.4 fL 39.0-49.9 H RDW-CV (test code = 788-0) 15.2 % 12.0-15.5 PLT (test code = 777-3) See_Comment [Automated [employer]] The system which generated this result transmitted reference range: 166 - 358 10*3/?L. The reference range was not used to interpret this result as normal/abnormal. MPV (test code = 11872-8) 10.2 fL 9.5-12.9 NRBC/100 WBC (test code = 5638116919) See_Comment [Automated me ssage] The system which generated this result transmitted reference range: 0.0 - 10.0 /100 WBCs. The reference range was not used to interpret this result as normal/abnormal. NRBC x10^3 (test code = 3212120314) <0.01 See_Comment [Automated messa ge] The system which generated this result transmitted reference range: 10*3/?L. The reference range was not used to interpret this result as normal/abnormal. GRAN MAT (NEUT) % (test code = 770-8) 76.3 % IMM GRAN % (test code = 2020981953) 0.70 % LYMPH % (test code = 736-9) 14.3 % MONO % (test code = 5905-5) 6.6 % EOS % (test code = 713-8) 1.6 % BASO % (test code = 706-2) 0.5 % GRAN MAT x10^3(ANC) (test code = 9010624824) 7.04 10*3/uL 1.88-7.09 IMM GRAN x10^3 (test code = 6409578928) 0.06 10*3/uL 0.00-0.06 LYMPH x10^3 (test code = 731-0) 1.32 10*3/uL 1.32-3.29 MONO x10^3 (test code = 742-7) 0.61 10*3/uL 0.33-0.92 EOS x10^3 (test code = 711-2) 0.15 10*3/uL 0.03-0.39 BASO x10^3 (test code = 704-7) 0.05 10*3/uL 0.01-0.07 Lab Interpretation (test code = 32420-1) Abnormal [facility] Metabolic Panel (NA, K, CL, CO2, GLUCOSE, BUN, CREATININE, CA)2021-03-08 11:47:33* Test Item Value Reference Range Interpretation Comme nts NA (test code = 1965817838) 138 mmol/L 135-145 K (test code = 7758693258) 3.6 mmol/L 3.5-5.0 CL (test code = 9134175186) 109 mmol/L 98-108 H CO2 TOTAL (test code = 1304862555) 22 mmol/L 23-31 L AGAP (test code = 8156119156) 2-16 BUN (test code = 2401790694) 7 mg/dL 7-23 GLUCOSE (test code = 2309734606) 96 mg/dL 70-110 CREATININE (test code = 9580105211) 0.44 mg/dL 0.50-1.04 L CALCIUM (test code = 8134776713) 9.2 mg/dL 8.6-10.6 eGFR (test code = 8610205742) mL/min/1.73m2 THEODORA (test code = THEODORA) Association [...] imaging tests). Lab Interpretation (test code = 93313-4) Abnormal [facility] with [id number] 10:40:46* Test Item Value Reference Range Interpretation [...] 33.2 g/dL 31.6-35.1 RDW-SD (test code = 61117-9) 51.5 fL 39.0-49.9 H RDW-CV (test code = 788-0) 15.9 % 12.0-15.5 H PLT (test code = 777-3) See_Comment [Automated message] The system which generated this result transmitted reference range: 166 - 358 10*3/?L. The reference range was not used to interpret this result as normal/abnormal. MPV (test code = 23975-4) 10.5 fL 9.5-12.9 NRBC/100 WBC (test code = 5752443846) See_Comment [Automated message] The system which generated this result transmitted reference range: 0.0 - 10.0 /100 WBCs. The reference range was not used to interpret this result as normal/abnormal. NRBC x10^3 (test code = 6497631862) <0.01 See_Comment [Automated message] The system which generated this result transmitted reference range: 10*3/?L. The reference range was not used to interpret this result as normal/abnormal. GRAN MAT (NEUT) % (test code = 770-8) 83.9 % IMM GRAN % (test code = 1575776193) 0.50 % LYMPH % (test code = 736-9) 8.9 % MONO % (test code = 5905-5) 6.1 % EOS % (test code = 713-8) 0.3 % BASO % (test code = 706-2) 0.3 % GRAN MAT x10^3(ANC) (test code = 4035492504) 14.15 10*3/uL 1.88-7.09 H IMM GRAN x10^3 (test code = 4836020861) 0.08 10*3/uL 0.00-0.06 H LYMPH x10^3 (test code = 731-0) 1.50 10*3/uL 1.32-3.29 MONO x10^3 (test code = 742-7) 1.03 10*3/uL 0.33-0.92 H EOS x10^3 (test code = 711-2) 0.05 10*3/uL 0.03-0.39 BASO x10^3 (test code = 704-7) 0.05 10*3/uL 0.01-0.07 Lab Interpretation (test code = 13069-5) Abnormal [facility] Whole [id number] 10:04:06* Test Item Value Reference Range Interpretation Comme nts LACTIC ACID (test code = 7106538144) 0.84 mmol/L 0.50-2.20 Lab Interpretation (test cod e = 78690-7) Normal [facility] CenterLactic Acid Whole Ajrsd3819-17-32 22:58:14* Test Item Value Reference Range Interpretation Comme nts LACTIC ACID (test code = 3894649575) 3.09 mmol/L 0.50-2.20 H Lab Interpretation (test cod e = 37638-8) Abnormal [facility] CenterPREG[facility]NCY TEST, [id number] 19:53:09* Test Item Value Reference Range Interpretation Comme nts PREG URINE (test code = 4524045730) Negative THEODORA (test code = THEODORA) Less than 20 IU/L. ?If low titer or ectopic is suspected, resubmit specimen in 48-[address] [facility]UR[facility]UG (IMMUNOASSAY) - 4 ER PANEL 2021-03-07 19:14:30* Test Item Value Reference Range Interpretation Comme nts AMPHET (test code = 4374129730) Negative Negative Cocaine Metabolite (test code = 3784460416) Negative Negative OPIATES (test code = 6266223434) Presumptive Positive Negative A THC (test code = 8387518985) Presumptive Positive Negative A THEODORA (test code = THEODORA) Urine Drug Cutoff Ranges Amphetamine: ? 1,000 ng/mLCocaine: ? 150 ng/mLOpiates: ? 300 ng/mLCannabinoids: ?50 ng/mL The results are to be used only for medical (i.e., treatment) purposes. Unconfirmed screening results must not be used for non-medical purposes (e.g., employment testing, legal testing). Lab Interpretation (test code = 65601-8) Abnormal [facility] CenterCT ABDOMEN PELVIS W [id number] 18:15:36Wall thickening of the distal descending colon and sigmoid colon suspiciousfor infectious or inflammatory colitis. Scattered colonic diverticulosis. Redemonstration of bilateral adrenal nodules. RL: 5045 AFC: 94520 End of report Ordering physician:COOPER MCNEIL CLINICAL [...] colitis.Scatteredcolonic diverticulosis.Redemonstration of bilateral adrenal nodules.RL: 5045AFC: [address] [facility] CenterLactic Acid Whole [id number] 17:41:23* Test Item Value Reference Range Interpretation Comme nts LACTIC ACID (test code = 7074501787) 3.59 mmol/L 0.50-2.20 H Lab Interpretation (test cod e = 69149-8) Abnormal [facility] CenterCB with Glskiglwlrqh0915-86-10 17:32:40* Test Item Value Reference Range Interpretation [...] 33.1 g/dL 31.6-35.1 RDW-SD (test code = 31487-2) 49.1 fL 39.0-49.9 RDW-CV (test code = 788-0) 15.3 % 12.0-15.5 PLT (test code = 777-3) See_Comment H [Automated message] The system which generated this result transmitted reference range: 166 - 358 10*3/?L. The reference range was not used to interpret this result as normal/abnormal. MPV (test code = 12844-3) 9.7 fL 9.5-12.9 NRBC/100 WBC (test code = 2201183765) See_Comment [Automated message] The system which generated this result transmitted reference range: 0.0 - 10.0 /100 WBCs. The reference range was not used to interpret this result as normal/abnormal. NRBC x10^3 (test code = 7204589899) <0.01 See_Comment [Automated message] The system which generated this result transmitted reference range: 10*3/?L. The reference range was not used to interpret this result as normal/abnormal. GRAN MAT (NEUT) % (test code = 770-8) 93.1 % IMM GRAN % (test code = 1411893447) 0.90 % LYMPH % (test code = 736-9) 2.9 % MONO % (test code = 5905-5) 2.7 % EOS % (test code = 713-8) 0.0 % BASO % (test code = 706-2) 0.4 % GRAN MAT x10^3(ANC) (test code = 0422439103) 25.17 10*3/uL 1.88-7.09 H IMM GRAN x10^3 (test code = 4242727338) 0.23 10*3/uL 0.00-0.06 H LYMPH x10^3 (test code = 731-0) 0.77 10*3/uL 1.32-3.29 L MONO x10^3 (test code = 742-7) 0.73 10*3/uL 0.33-0.92 EOS x10^3 (test code = 711-2) <0.03 0.03-0.39 L BASO x10^3 (test code = 704-7) 0.10 10*3/uL 0.01-0.07 H Lab Interpretation (test code = 92899-5) Abnormal [facility] CenterETHANOL2021-04-25 17:24:12* Test Item Value Reference Range Interpretation Comme nts ALCOHOL (test code = 9392304720) <10 mg/dL THEODORA (test code = THEODORA) <10 Rbrdygay97-812 Toxic>100 Depression of LAST IRONER>[address] [facility] CenterBasi Metabolic Panel (NA, K, CL, CO2, GLUCOSE, BUN, CREATININE, CA)2021-03-07 17:18:15* Test Item Value Reference Range Interpretation Comme nts NA (test code = 2201195982) 141 mmol/L 135-145 K (test code = 8914574441) 4.0 mmol/L 3.5-5.0 CL (test code = 8127937411) 106 mmol/L 98-108 CO2 TOTAL (test code = 6774124881) 19 mmol/L 23-31 L AGAP (test code = 4671737855) 2-16 BUN (test code = 8489493296) 16 mg/dL 7-23 GLUCOSE (test code = 5135186786) 156 mg/dL 70-110 H CREATININE (test code = 2075015722) 0.47 mg/dL 0.50-1.04 L CALCIUM (test code = 6920937390) 10.7 mg/dL 8.6-10.6 H eGFR (test code = 7420179824) mL/min/1.73m2 THEODORA (test code = THEODORA) Association [...] imaging tests). Lab Interpretation (test code = 83670-1) Abnormal [facility] CenterHepatic Function Panel (ALB, T.PRO, BILI T, BU/BC, ALT, AST, ALK PHOS)2021-03-07 17:18:15* Test Item Value Reference Range Interpretation Comme nts TOTAL BILI (test code = 7077052987) 0.9 mg/dL 0.1-1.1 BILI UNCON (test code = 5983121975) 0.9 mg/dL 0.1-1.1 BILI CONJ (test code = 1840924476) 0.0 mg/dL 0.0-0.3 T PROTEIN (test code = 0080154437) 7.8 g/dL 6.3-8.2 ALBUMIN (test code = 2158815282) 4.8 g/dL 3.5-5.0 ALK PHOS (test code = 5134564820) 180 U/L 34-122 H ALTv (test code = 1742-6) 15 U/L 5-35 AST(SGOT) (test code = 2547771705) 29 U/L 13-40 Lab Interpretation (test cod e = 57899-5) Abnormal [facility] CenterLipase Ztzbi9670-65-08 17:18:15* Test Item Value Reference Range Interpretation Comme [facility] LIPASE (test code = 1537581236) 41 U/L 0-220 Lab Interpretation (test cod e = 15215-1) Normal [facility] CenterCOVID-19 (ID NOW RAPID TESTING)2021-03-07 17:01:56* Test Item Value Reference Range Interpretation Comme [facility] SARS-CoV-2 Rapid ID NOW (test code = 54601-4) Not Detected Not Detected THEODORA (test code = THEODORA) ID NOW COVID-19 As say is an isothermal nucleic acid amplification test intended for the qualitative detection of nucleic acid from SARS-CoV-2 viral RNA in nasopharyngeal (ROLL OFF DRIVER) specimens. It is used under Emergency Use [...] clinically indicated. Lab Interpretation (test code = 33070-7) Normal [facility] CenteraPTT2021-04-25 16:54:54* Test Item Value Reference Range Interpretation Comme [facility] APTT Patient (test code = 3173-2) See_Comment [Automated message] The system which generated this result transmitted reference range: 23 - 38 Seconds. The reference range was not used to interpret this result as normal/abnormal. THEODORA (test code = THEODORA) The [facility] patient population mean normal value for aPTT is 30 seconds. Lab Interpretation (test code = 95886-7) Normal [facility] CenterProthrombin Time (PT) / [id number] 16:52:53 * Test Item Value Reference Range Interpretation Comme [facility] PROTIME PATIENT (test code = 5964-2) See_Comment [Automated [employer] ge] The system which generated this result transmitted reference range: 12.0 - 14.7 Seconds. The reference range was not used to interpret this result as normal/abnormal. INR (test code = 6301-6) Normal INR <1.1; Warfarin Therapeutic range 2.0 to 3.0 or 2.5 to 3.5, depending upon the indications. Lab Interpretation (test code = 19998-7) Normal [facility] CenterUS ABDOMEN PYLWEYS5413-97-01 23:10:00 Unremarkable gallbladder ultrasound. Preliminary Report Dictated by Resident: Jazmin Mujica MD., have reviewed this study and agree [...] Unremarkable gallbladder ultrasound.Preliminary Report Dictated by Resident: Jazmin Jones MD., have reviewed this study and agree with theabove report.[facility] CenterGLYCOSYLATED HEMOGLOBIN (A1C)2021-01-23 17:29:16* Test Item Value Reference Range Interpretation Comme nts HGB A1C (test code = 4548-4) 5.4 % 4.0-6.0 Lab Interpretation (test cod e = 14681-2) Normal [facility] CenterETHANOL2021-03-13 16:01:04* Test Item Value Reference Range Interpretation Comme nts ALCOHOL (test code = 3231291588) <10 mg/dL THEODORA (test code = THEODORA) Toxic Greater than or equal to 80 mg/dL. NOTE: Whole blood values are approximately 10% to 15% lower than serum and plasma. [facility] CenterMAGNESIUM2021-03-13 15:58:23* Test Item Value Reference Range Interpretation Comme nts MAGNESIUM (test code = 0077908340) 1.6 mg/dL 1.7-2.4 L Lab Interpretation (test cod e = 96906-2) Abnormal [facility] CenterPREGNANCY TEST, [id number] 15:31:23* Test Item Value Reference Range Interpretation Comme nts PREG URINE (test code = 0468145500) Negative THEODORA (test code = THEODORA) Less than 20 IU/L. ?If low titer or ectopic is suspected, resubmit specimen in 48-[address] [facility] CenterCBC WITH [id number] 12:39:12* Test Item Value Reference Range Interpretation [...] 31.9 g/dL 31.6-35.1 RDW-SD (test code = 45851-0) 56.8 fL 39.0-49.9 H RDW-CV (test code = 788-0) 17.4 % 12.0-15.5 H PLT (test code = 777-3) See_Comment H [Automated message] The system which generated this result transmitted reference range: 166 - 358 10*3/?L. The reference range was not used to interpret this result as normal/abnormal. MPV (test code = 91407-8) 10.1 fL 9.5-12.9 NRBC/100 WBC (test code = 3308165378) See_Comment [Automated message] The system which generated this result transmitted reference range: 0.0 - 10.0 /100 WBCs. The reference range was not used to interpret this result as normal/abnormal. NRBC x10^3 (test code = 0002313122) <0.01 See_Comment [Automated message] The system which generated this result transmitted reference range: 10*3/?L. The reference range was not used to interpret this result as normal/abnormal. GRAN MAT (NEUT) % (test code = 770-8) 87.6 % IMM GRAN % (test code = 6407326112) 0.90 % LYMPH % (test code = 736-9) 7.0 % MONO % (test code = 5905-5) 4.3 % EOS % (test code = 713-8) 0.0 % BASO % (test code = 706-2) 0.2 % GRAN MAT x10^3(ANC) (test code = 1146492428) 20.18 10*3/uL 1.88-7.09 H IMM GRAN x10^3 (test code = 4085352174) 0.20 10*3/uL 0.00-0.06 H LYMPH x10^3 (test code = 731-0) 1.61 10*3/uL 1.32-3.29 MONO x10^3 (test code = 742-7) 0.99 10*3/uL 0.33-0.92 H EOS x10^3 (test code = 711-2) <0.03 0.03-0.39 L BASO x10^3 (test code = 704-7) 0.05 10*3/uL 0.01-0.07 Lab Interpretation (test code = 97026-3) Abnormal [facility] CenterCOMP. METABOLIC PANEL (70892)2021-01-23 12:25:33* Test Item Value Reference Range Interpretation Comme nts NA (test code = 8365953363) 137 mmol/L 135-145 K (test code = 8964641096) 3.3 mmol/L 3.5-5.0 L CL (test code = 0704579998) 105 mmol/L 98-108 CO2 TOTAL (test code = 4847473213) 24 mmol/L 23-31 AGAP (test code = 8928452371) 2-16 BUN (test code = 3107476522) 7 mg/dL 7-23 GLUCOSE (test code = 5631406557) 100 mg/dL 70-110 CREATININE (test code = 9144316868) 0.40 mg/dL 0.50-1.04 L TOTAL BILI (test code = 3897944301) 0.3 mg/dL 0.1-1.1 CALCIUM (test code = 9809249773) 9.0 mg/dL 8.6-10.6 T PROTEIN (test code = 0924365886) 6.4 g/dL 6.3-8.2 ALBUMIN (test code = 1918351316) 3.4 g/dL 3.5-5.0 L ALK PHOS (test code = 7228835178) 109 U/L 34-122 ALTv (test code = 1742-6) 9 U/L 5-35 AST(SGOT) (test code = 9113326491) 21 U/L 13-40 eGFR Calculation (Non-) (test code = 6780494401) mL/min/1.73m2 eGFR Calculation () (test code = 3402106067) mL/min/1.73m2 THEODORA (test code = THEODORA) Association [...] imaging tests). Lab Interpretation (test code = 17551-5) Abnormal [facility] [id number] 00:10:57* Test Item Value Reference Range Interpretation Comme nts BENZO U (test code = 9341920755) Negative Negative KOTA U (test code = 5790646715) Negative Negative AMPHET (test code = 9034395505) Negative Negative THC (test code = 6254473250) Presumptive Positive Negative A Confirmation of Presumptive Positive THC result requires physician order. METHADONE (test code = 5365914346) Negative Negative Meth U (test code = 0318392505) Negative Negative OPIATES (test code = 0255852612) Presumptive Positive Negative A Cocaine Metabolite (test code = 9723961345) Negative Negative PROPOXY (test code = 2951310527) Negative Negative Tric U (test code = 2708307373) Negative Negative PCP (test code = 2054616247) Negative Negative OXYCOD (test code = 0635775027) Negative Negative THEODORA (test code = THEODORA) [...] legal testing). Lab Interpretation (test code = 58680-7) Abnormal [facility] CenterCOVID-19 (ID NOW RAPID TESTING)2021-01-22 23:16:50* Test Item Value Reference Range Interpretation Comme nts SARS-CoV-2 Rapid ID NOW (test code = 00313-9) Not Detected Not Detected THEODORA (test code = THEODORA) ID NOW COVID-19 As say is an isothermal nucleic acid amplification test intended for the qualitative detection of nucleic acid from SARS-CoV-2 viral RNA in nasopharyngeal (ROLL OFF DRIVER) specimens. It is used under Emergency Use [...] clinically indicated. Lab Interpretation (test code = 35055-7) Normal [facility] CenterCT ABDOMEN PELVIS W [id number] 22:01:401. ?No acute abnormality identified in the [...] inflammation. Considerfurtherevaluation of the lungs with chest radiograph.[facility] CenterURINALYSIS 2021-01-22 20:42:10* Test Item Value Reference Range Interpretation Comme nts APPEARANCE (test code = 2801173118) Clear Clear COLOR (test code = 6191086006) Yellow Yellow PH (test code = 7985113107) 4.8-8.0 SP GRAVITY (test code = 9422142769) 1.003-1.030 GLU U QUAL (test code = 1601311529) 50 mg/dL Normal A BLOOD (test code = 3168110619) 3+ Negative A KETONES (test code = 0946994341) 80 mg/dL Negative A PROTEIN (test code = 2887-8) 30 mg/dL Negative A UROBILIN (test code = 0142427097) Normal Normal BILIRUBIN (test code = 1963367338) Negative Negative NITRITE (test code = 5625046526) Negative Negative LEUK BIRDIE (test code = 4652175691) Negative Negative RBC/HPF (test code = 8998889114) >182 See_Comment H [Automated [employer] ge] The system which generated this result transmitted reference range: 0 - 3 HPF. The reference range was not used to interpret this result as normal/abnormal. WBC/HPF (test code = 4800748415) See_Comment [Automated [employer] ge] The system which generated this result transmitted reference range: 0 - 5 HPF. The reference range was not used to interpret this result as normal/abnormal. BACTERIA (test code = 1941413324) Negative Negative MUCOUS (test code = 5375755422) Slight Negative LPF A SQ EPITH (test code = 7307432724) <1 HPF Lab Interpretation (test code = 54385-1) Abnormal [facility] CenterCOMP. METABOLIC PANEL (79928)2021-01-22 20:31:50* Test Item Value Reference Range Interpretation Comme nts NA (test code = 7908501799) 139 mmol/L 135-145 K (test code = 5705422867) 3.8 mmol/L 3.5-5.0 CL (test code = 1712740912) 108 mmol/L 98-108 CO2 TOTAL (test code = 6389363619) 28 mmol/L 23-31 AGAP (test code = 5680030931) 2-16 BUN (test code = 0598854952) 14 mg/dL 7-23 GLUCOSE (test code = 4456740225) 126 mg/dL 70-110 H CREATININE (test code = 3594331906) 0.42 mg/dL 0.50-1.04 L TOTAL BILI (test code = 1299283897) 0.5 mg/dL 0.1-1.1 CALCIUM (test code = 4733384584) 9.0 mg/dL 8.6-10.6 T PROTEIN (test code = 1814698508) 6.6 g/dL 6.3-8.2 ALBUMIN (test code = 4120589753) 3.7 g/dL 3.5-5.0 ALK PHOS (test code = 9848991028) 115 U/L 34-122 ALTv (test code = 1742-6) 9 U/L 5-35 AST(SGOT) (test code = 9759917518) 21 U/L 13-40 eGFR Calculation (Non-) (test code = 2244727167) mL/min/1.73m2 eGFR Calculation () (test code = 3155425478) mL/min/1.73m2 THEODORA (test code = THEODORA) Association [...] imaging tests). Lab Interpretation (test code = 57232-6) Abnormal [facility] CenterLIPASE2021-03-12 20:31:50* Test Item Value Reference Range Interpretation Comme nts LIPASE (test code = 4546101794) 28 U/L 0-220 Lab Interpretation (test cod e = 67834-1) Normal [facility] CenterCBC WITHOUT [id number] 20:08:21* Test Item Value Reference Range Interpretation [...] result as normal/abnormal. MPV (test code = 32558-5) 9.5 fL 9.5-12.9 RDW-CV (test code = 788-0) 17.2 % 12.0-15.5 H RDW-SD (test code = 24261-4) 56.6 fL 39.0-49.9 H NRBC x10^3 (test code = 2131272123) <0.01 See_Comment [Automated [employer]] The system which generated this result transmitted reference range: 10*3/?L. The reference range was not used to interpret this result as normal/abnormal. NRBC/100 WBC (test code = 9708534219) See_Comment [Automated [employer]] The system which generated this result transmitted reference range: 0.0 - 10.0 /100 WBCs. The reference range was not used to interpret this result as normal/abnormal. IPF % (test code = 1393847907) Lab Interpretation (test code = 32644-6) Abnormal [facility] [id number] 20:23:00* Test Item Value Reference Range Interpretation Comme nts Feces Culture (test code = 625-4) No Salmonella, No Shigella, No Campylobacter, and No E. coli 0157 isolated. THEODORA (test code = THEODORA) Feces specimens ar e routinely cultured for Salmonella, Shigella, Campylobacter, and E. coli 0157. [facility]. METABOLIC PANEL (44745)2020-11-02 11:08:00* Test Item Value Reference Range Interpretation Comme nts NA (test code = 1230499941) 138 mmol/L 135-145 K (test code = 6785427283) 3.5 mmol/L 3.5-5 CL (test code = 3360173324) 104 mmol/L 98-108 CO2 TOTAL (test code = 8961852317) 25 mmol/L 23-31 AGAP (test code = 4971814811) 2-16 BUN (test code = 7962233635) 10 mg/dL 7-23 GLUCOSE (test code = 3302041183) 105 mg/dL 70-110 CREATININE (test code = 1241550447) 0.52 mg/dL 0.5-1.04 TOTAL BILI (test code = 3659621896) 0.9 mg/dL 0.1-1.1 CALCIUM (test code = 4187943888) 9.9 mg/dL 8.6-10.6 T PROTEIN (test code = 4547048599) 6.6 g/dL 6.3-8.2 ALBUMIN (test code = 4004531532) 3.8 g/dL 3.5-5 ALK PHOS (test code = 6201778132) 104 U/L 34-122 ALTv (test code = 1742-6) 9 U/L 5-35 AST(SGOT) (test code = 7928109481) 15 U/L 13-40 eGFR Calculation (Non-) (test code = 3207098486) mL/min/1.73m2 eGFR Calculation () (test code = 4219073759) mL/min/1.73m2 THEODORA (test code = THEODORA) Association [...] or urine or abnormalities in imaging tests). [facility] WITH [id number] 10:45:00* Test Item Value Reference Range Interpretation Comme nts WBC (test code = 6690-2) See_Comment H [Automated [employer]] The system which generated this result transmitted [...] 32.4 g/dL 31.6-35.1 RDW-SD (test code = 40255-9) 50.1 fL 39-49.9 H RDW-CV (test code = 788-0) 15.7 % 12-15.5 H PLT (test code = 777-3) See_Comment [Automated messa ge] The system which generated this result transmitted reference range: 166 - 358 10*3/?L. The reference range was not used to interpret this result as normal/abnormal. MPV (test code = 10441-4) 10.7 fL 9.5-12.9 NRBC/100 WBC (test code = 2635492980) See_Comment [Automated [employer] ssage] The system which generated this result transmitted reference range: 0.0 - 10.0 /100 WBCs. The reference range was not used to interpret this result as normal/abnormal. NRBC x10^3 (test code = 5607219031) <0.01 See_Comment [Automated messa ge] The system which generated this result transmitted reference range: 10*3/?L. The reference range was not used to interpret this result as normal/abnormal. GRAN MAT (NEUT) % (test code = 770-8) 69.2 % IMM GRAN % (test code = 0959335906) 0.90 % LYMPH % (test code = 736-9) 19.8 % MONO % (test code = 5905-5) 8.4 % EOS % (test code = 713-8) 1.1 % BASO % (test code = 706-2) 0.6 % GRAN MAT x10^3(ANC) (test code = 6772220315) 7.74 10*3/uL 1.88-7.09 H IMM GRAN x10^3 (test code = 4825238803) 0.10 10*3/uL 0-0.06 H LYMPH x10^3 (test code = 731-0) 2.22 10*3/uL 1.32-3.29 MONO x10^3 (test code = 742-7) 0.94 10*3/uL 0.33-0.92 H EOS x10^3 (test code = 711-2) 0.12 10*3/uL 0.03-0.39 BASO x10^3 (test code = 704-7) 0.07 10*3/uL 0.01-0.07 Lab Interpretation (test code = 27880-0) Abnormal [facility] METABOLIC PANEL (NA, K, CL, CO2, GLUCOSE, BUN, CREATININE, CA)2020-10-31 10:38:00* Test Item Value Reference Range Interpretation Comme nts NA (test code = 9663400345) 136 mmol/L 135-145 K (test code = 6877805927) 3.6 mmol/L 3.5-5 CL (test code = 3772385009) 107 mmol/L 98-108 CO2 TOTAL (test code = 1627995012) 25 mmol/L 23-31 AGAP (test code = 5617761170) 2-16 BUN (test code = 0333683000) 8 mg/dL 7-23 GLUCOSE (test code = 5392993514) 100 mg/dL 70-110 CREATININE (test code = 6946639053) 0.46 mg/dL 0.5-1.04 L CALCIUM (test code = 3722342106) 9.1 mg/dL 8.6-10.6 eGFR Calculation (Non-) (test code = 2056395016) mL/min/1.73m2 eGFR Calculation () (test code = 0795058410) mL/min/1.73m2 THEODORA (test code = THEODORA) Association [...] imaging tests). Lab Interpretation (test code = 18436-9) Abnormal [facility] CenterMAGNESIUM2020-12-19 10:38:00* Test Item Value Reference Range Interpretation Comme nts MAGNESIUM (test code = 4664706590) 2.0 mg/dL 1.7-2.4 Lab Interpretation (test cod e = 92079-8) Normal [facility]CB WITH [id number] 10:20:00* Test Item Value Reference Range Interpretation Comme nts WBC (test code = 6690-2) See_Comment [Automated [employer]] The system which generated this result transmitted reference range: 4.30 - 11.10 10*3/?L. The reference range was not used to interpret this result as normal/abnormal. RBC (test code = 789-8) See_Comment [Automated [employer]] The system which generated this result transmitted [...] 33.8 g/dL 31.6-35.1 RDW-SD (test code = 91199-3) 48.8 fL 39-49.9 RDW-CV (test code = 788-0) 15.6 % 12-15.5 H PLT (test code = 777-3) See_Comment [Automated messa ge] The system which generated this result transmitted reference range: 166 - 358 10*3/?L. The reference range was not used to interpret this result as normal/abnormal. MPV (test code = 26775-6) 10.2 fL 9.5-12.9 NRBC/100 WBC (test code = 1549835203) See_Comment [Automated [employer] ssage] The system which generated this result transmitted reference range: 0.0 - 10.0 /100 WBCs. The reference range was not used to interpret this result as normal/abnormal. NRBC x10^3 (test code = 9532973875) <0.01 See_Comment [Automated messa ge] The system which generated this result transmitted reference range: 10*3/?L. The reference range was not used to interpret this result as normal/abnormal. GRAN MAT (NEUT) % (test code = 770-8) 68.5 % IMM GRAN % (test code = 7016604699) 0.50 % LYMPH % (test code = 736-9) 22.1 % MONO % (test code = 5905-5) 7.7 % EOS % (test code = 713-8) 0.6 % BASO % (test code = 706-2) 0.6 % GRAN MAT x10^3(ANC) (test code = 1269381205) 7.41 10*3/uL 1.88-7.09 H IMM GRAN x10^3 (test code = [id number]) 0.05 10*3/uL 0-0.06 LYMPH x10^3 (test code = 731-0) 2.39 10*3/uL 1.32-3.29 MONO x10^3 (test code = 742-7) 0.83 10*3/uL 0.33-0.92 EOS x10^3 (test code = 711-2) 0.06 10*3/uL 0.03-0.39 BASO x10^3 (test code = 704-7) 0.06 10*3/uL 0.01-0.07 Lab Interpretation (test code = 73181-8) [facility]normal [id number] 04:40:00* Test Item Value Reference Range Interpretation Comme nts Campylobacter (jejuni, coli and upsaliensis) (test code = 71723-3) Negative Negative, Indeterminate, See comment Plesiomonas shigelloides (test code = 91155-9) Negative Negative, Indeterminate, See comment Salmonella (test code = 93038-2) Negative Negative, Indeterminate, See comment Yersinia enterocolitica (test code = 89787-9) Negative Negative, Indeterminate, See comment Vibrio (test code = 00340-0) Negative Negative, Indeterminate, See comment Vibrio cholerae (test code = 50169-0) Negative Negative, Indeterminate, See comment Enteroaggregative E. coli (EAEC) (test code = 85848-6) Negative Negative, Indeterminate, See comment Enteropathogenic E. coli (EPEC) (test code = 76108-6) Negative Negative, N/A, Indeterminate, See comment Enterotoxigenic E. coli (ETEC) (test code = 43258-1) Negative Negative, Indeterminate, See comment Shiga toxin-Producing E. coli (STEC) (test code = 02070-0) Negative Negative, Indeterminate, See comment Shigella/Enteroinvasive E. coli (EIEC) (test code = 87115-8) Negative Negative, Indeterminate, See comment Cryptosporidium (test code = 39069-2) Negative Negative, Indeterminate, See comment Cyclospora cayetanensis (test code = 46171-3) Negative Negative, Indeterminate, See comment Entamoeba histolytica (test code = 86604-2) Negative Negative, Indeterminate, See comment Giardia lamblia (test code = 48232-3) Negative Negative, Indeterminate, See comment Adenovirus F 40/41 (test code = 19327-5) Negative Negative, Indeterminate, See comment Astrovirus (test code = 45494-2) Negative Negative, Indeterminate, See comment Norovirus GI/GII (test code = 37001-0) Negative Negative, Indeterminate, See comment Rotavirus A (test code = 18024-5) Negative Negative, Indeterminate, See comment Sapovirus (test code = 31989-1) Negative Negative, Indeterminate, See comment THEODORA (test code = THEODORA) Negative:A negativ e result does not rule-out infection. ?This assay does not test for all potential infectious agents of diarrheal disease. Positive:A positive test result does not necessarily indicate the presence of viable organism. Lab Interpretation (test code = 91054-4) Normal [facility] COVID [id number] 12:55:00COVID DMT InterpretationInterpretation/Recommendations: Molecular NAAT Tests for [...] COVID-19 testing the patient has had at [facility], including molecular NAAT testing (more commonly known as PCR testing and Rapid ID Now testing) and antibody t esting. It does not take into account any testing that a patient has had outside of the [facility] medical record. [facility] LABORATORY SERVICESCOVID XpbmythEWZR-AvZ-4 Rapid ID NOW (no units) ? ? Date ? Value ? 10/28/2020 ? Not Detected ? ? ? 09/28/2020 ? Not Detected ? ? ? 08/03/2020 ? Not Detected ? ? ? 05/21/2020 ? Not Detected? ? ? 05/16/2020 ? Not Detected ? ? ? 04/05/2020 ? Not Detected ? ? ? 03/02/2020 ? Not Detected ? [facility] SERVICESUnLas [facility]mas Medical CenterMAGNESIUM2020-12-18 12:41:00* Test Item Value Reference Range Interpretation Comme nts MAGNESIUM (test code = 3176723915) 1.6 mg/dL 1.7-2.4 L Lab Interpretation (test cod e = 58726-2) Abnormal [facility] METABOLIC PANEL (NA, K, CL, CO2, GLUCOSE, BUN, CREATININE, CA)2020-10-30 12:40:00* Test Item Value Reference Range Interpretation Comme nts NA (test code = 4094484974) 135 mmol/L 135-145 K (test code = 0674013779) 3.5 mmol/L 3.5-5 CL (test code = 0936417997) 102 mmol/L 98-108 CO2 TOTAL (test code = 3324507403) 24 mmol/L 23-31 AGAP (test code = 9061513921) 2-16 BUN (test code = 4310970047) 7 mg/dL 7-23 GLUCOSE (test code = 4684709971) 133 mg/dL 70-110 H CREATININE (test code = 2176587264) 0.36 mg/dL 0.5-1.04 L CALCIUM (test code = 7456199572) 9.3 mg/dL 8.6-10.6 eGFR Calculation (Non-) (test code = 3452766901) mL/min/1.73m2 eGFR Calculation () (test code = 2679532539) mL/min/1.73m2 THEODORA (test code = THEODORA) Association [...] imaging tests). Lab Interpretation (test code = 64512-1) Abnormal [facility] WITH [id number] 12:31:00* Test Item Value Reference Range Interpretation [...] 33.9 g/dL 31.6-35.1 RDW-SD (test code = 21198-6) 48.4 fL 39-49.9 RDW-CV (test code = 788-0) 15.4 % 12-15.5 PLT (test code = 777-3) See_Comment [Automated message] The system which generated this result transmitted reference range: 166 - 358 10*3/?L. The reference range was not used to interpret this result as normal/abnormal. MPV (test code = 20835-4) 11.1 fL 9.5-12.9 NRBC/100 WBC (test code = 0070185117) See_Comment [Automated message] The system which generated this result transmitted reference range: 0.0 - 10.0 /100 WBCs. The reference range was not used to interpret this result as normal/abnormal. NRBC x10^3 (test code = 4354671214) <0.01 See_Comment [Automated message] The system which generated this result transmitted reference range: 10*3/?L. The reference range was not used to interpret this result as normal/abnormal. GRAN MAT (NEUT) % (test code = 770-8) 91.2 % IMM GRAN % (test code = 7234752032) 0.60 % LYMPH % (test code = 736-9) 5.6 % MONO % (test code = 5905-5) 2.3 % EOS % (test code = 713-8) 0.0 % BASO % (test code = 706-2) 0.3 % GRAN MAT x10^3(ANC) (test code = 8218396945) 14.57 10*3/uL 1.88-7.09 H IMM GRAN x10^3 (test code = 1505092503) 0.10 10*3/uL 0-0.06 H LYMPH x10^3 (test code = 731-0) 0.89 10*3/uL 1.32-3.29 L MONO x10^3 (test code = 742-7) 0.36 10*3/uL 0.33-0.92 EOS x10^3 (test code = 711-2) <0.03 0.03-0.39 L BASO x10^3 (test code = 704-7) 0.05 10*3/uL 0.01-0.07 Lab Interpretation (test code = 63851-0) Abnormal [facility] CenterCLOSTRIDIUM DIFFICILE [id number] 00:59:00 * Test Item Value Reference Range Interpretation Comme nts Clostridioides (Clostridium) difficile (test code = 21584-6) Positive Negative A Lab Interpretation (test cod e = 78392-2) Abnormal [facility] CenterPhosphorus [id number] 15:26:00* Test Item Value Reference Range Interpretation Comme nts PHOSPHORUS (test code = 4455723542) 3.2 mg/dL 2.5-5 Lab Interpretation (test cod e = 20039-6) Normal [facility] CenterBasic Metabolic Panel (NA, K, CL, CO2, GLUCOSE, BUN, CREATININE, CA)2020-10-29 15:08:00* Test Item Value Reference Range Interpretation Comme nts NA (test code = 2367271433) 136 mmol/L 135-145 K (test code = 9917339840) 3.3 mmol/L 3.5-5 L CL (test code = 9620093462) 104 mmol/L 98-108 CO2 TOTAL (test code = 1515741942) 22 mmol/L 23-31 L AGAP (test code = 0407789906) 2-16 BUN (test code = 7336773966) 8 mg/dL 7-23 GLUCOSE (test code = 3557298678) 114 mg/dL 70-110 H CREATININE (test code = 2822713311) 0.44 mg/dL 0.5-1.04 L CALCIUM (test code = 2434500719) 9.5 mg/dL 8.6-10.6 eGFR Calculation (Non-) (test code = 9520842896) mL/min/1.73m2 eGFR Calculation () (test code = 7466523820) mL/min/1.73m2 THEODORA (test code = THEODORA) Association [...] imaging tests). Lab Interpretation (test code = 00662-7) Abnormal [facility] with Jxjvtfhgpisc8853-34-20 14:01:00* Test Item Value Reference Range Interpretation [...] 33.9 g/dL 31.6-35.1 RDW-SD (test code = 45195-5) 49.9 fL 39-49.9 RDW-CV (test code = 788-0) 15.8 % 12-15.5 H PLT (test code = 777-3) See_Comment [Automated message] The system which generated this result transmitted reference range: 166 - 358 10*3/?L. The reference range was not used to interpret this result as normal/abnormal. MPV (test code = 02559-7) 10.5 fL 9.5-12.9 NRBC/100 WBC (test code = 4239058985) See_Comment [Automated message] The system which generated this result transmitted reference range: 0.0 - 10.0 /100 WBCs. The reference range was not used to interpret this result as normal/abnormal. NRBC x10^3 (test code = 5100233130) <0.01 See_Comment [Automated message] The system which generated this result transmitted reference range: 10*3/?L. The reference range was not used to interpret this result as normal/abnormal. GRAN MAT (NEUT) % (test code = 770-8) 83.5 % IMM GRAN % (test code = 4353196891) 0.80 % LYMPH % (test code = 736-9) 10.4 % MONO % (test code = 5905-5) 5.1 % EOS % (test code = 713-8) 0.0 % BASO % (test code = 706-2) 0.2 % GRAN MAT x10^3(ANC) (test code = 9629726714) 14.30 10*3/uL 1.88-7.09 H IMM GRAN x10^3 (test code = 7760548509) 0.14 10*3/uL 0-0.06 H LYMPH x10^3 (test code = 731-0) 1.78 10*3/uL 1.32-3.29 MONO x10^3 (test code = 742-7) 0.87 10*3/uL 0.33-0.92 EOS x10^3 (test code = 711-2) <0.03 0.03-0.39 L BASO x10^3 (test code = 704-7) 0.04 10*3/uL 0.01-0.07 Lab Interpretation (test code = 95926-9) Abnormal [facility] CenterMagnesium [id number] 13:57:00* Test Item Value Reference Range Interpretation Comme nts MAGNESIUM (test code = 8946414255) 1.5 mg/dL 1.7-2.4 L Lab Interpretation (test cod e = 30263-6) Abnormal [facility] CenterCOVID-19 (ID NOW RAPID TESTING)2020-10-28 20:12:00* Test Item Value Reference Range Interpretation Comme nts SARS-CoV-2 Rapid ID NOW (test code = 45917-8) Not Detected Not Detected THEODORA (test code = THEODORA) ID NOW COVID-19 As say is an isothermal nucleic acid amplification test intended for the qualitative detection of nucleic acid from SARS-CoV-2 viral RNA in nasopharyngeal (ROLL OFF DRIVER) specimens. It is used under Emergency Use [...] clinically indicated. Lab Interpretation (test code = 14442-4) Normal [facility] CenterETHANOL2020-12-16 20:02:00* Test Item Value Reference Range Interpretation Comme nts ALCOHOL (test code = 3736452921) <10 mg/dL THEODORA (test code = THEODORA) <10 Kymjrohc90-172 Toxic>100 Depression of LAST IRONER>400 Fatalities Reported [facility] [id number] 18:36:00* Test Item Value Reference Range Interpretation Comme nts BENZO U (test code = 2531252264) Presumptive Positive Negative A KOTA U (test code = 3948874216) Negative Negative AMPHET (test code = 9901739954) Negative Negative THC (test code = 9285061662) Presumptive Positive Negative A Confirmation of Presumptive Positive THC result requires physician order. METHADONE (test code = 4926453686) Negative Negative Meth U (test code = 3856409889) Negative Negative OPIATES (test code = 1331046239) Presumptive Positive Negative A Cocaine Metabolite (test code = 9020180944) Negative Negative PROPOXY (test code = 4271473768) Negative Negative Tric U (test code = 2542792078) Negative Negative PCP (test code = 5207046902) Negative Negative OXYCOD (test code = 8285079974) Negative Negative THEODORA (test code = THEODORA) [...] legal testing). Lab Interpretation (test code = 11255-6) Abnormal [facility] CenterUrinalysis2020-12-16 18:32:00* Test Item Value Reference Range Interpretation Comme nts APPEARANCE (test code = 4263882478) Clear Clear COLOR (test code = 5287499421) Yellow Yellow PH (test code = 4291744155) 4.8-8.0 SP GRAVITY (test code = 4162592424) 1.003-1.030 H GLU U QUAL (test code = 1512741132) Normal Normal BLOOD (test code = 4747357840) Negative Negative KETONES (test code = 9070891887) 20 mg/dL Negative A PROTEIN (test code = 2887-8) Negative Negative UROBILIN (test code = 4656799283) Normal Normal BILIRUBIN (test code = 6922727272) Negative Negative NITRITE (test code = 7470532852) Negative Negative LEUK BIRDIE (test code = 6725219155) Negative Negative RBC/HPF (test code = 8557115474) See_Comment [Automated [employer]] The system which generated this result transmitted reference range: 0 - 3 HPF. The reference range was not used to interpret this result as normal/abnormal. WBC/HPF (test code = 2512873335) <1 See_Comment [Automated [employer]] The system which generated this result transmitted reference range: 0 - 5 HPF. The reference range was not used to interpret this result as normal/abnormal. BACTERIA (test code = 5308567715) Negative Negative SQ EPITH (test code = 9729651192) HPF Lab Interpretation (test code = 38910-5) Abnormal [facility] CenterCT ABDOMEN PELVIS W [id number] 17:50:14CT Abdomen and Pelvis with intravenous contrast. [...] nodules are stable since the previous CT scan.[facility] CenterMessi [id number] 17:29:00* Test Item Value Reference Range Interpretation Comme nts TROPONIN I (test code = 2726532355) <0.012 See_Comment [Automated message] The system which [...] biotin. ? Lab Interpretation (test code = 49588-6) Normal [facility] (NA, K, CL, CO2, GLUCOSE, BUN, CREATININE, CA)2020-10-28 17:18:00* Test Item Value Reference Range Interpretation Comme nts NA (test code = 5367259417) 138 mmol/L 135-145 K (test code = 7291434050) 4.7 mmol/L 3.5-5 CL (test code = 8529406750) 106 mmol/L 98-108 CO2 TOTAL (test code = 8990052248) 24 mmol/L 23-31 AGAP (test code = 7245817376) 2-16 BUN (test code = 2480912360) 8 mg/dL 7-23 GLUCOSE (test code = 2699905961) 154 mg/dL 70-110 H CREATININE (test code = 1452327512) 0.50 mg/dL 0.5-1.04 CALCIUM (test code = 9826381313) 10.0 mg/dL 8.6-10.6 eGFR Calculation (Non-) (test code = 5560125653) mL/min/1.73m2 eGFR Calculation () (test code = 0439907262) mL/min/1.73m2 THEODORA (test code = THEODORA) Association [...] imaging tests). Lab Interpretation (test code = 13232-8) Abnormal [facility] CenterHepatic Function Panel (ALB, T.PRO, BILI T, BU/BC, ALT, AST, ALK PHOS)2020-10-28 17:18:00* Test Item Value Reference Range Interpretation Comme nts TOTAL BILI (test code = 4290881446) 0.9 mg/dL 0.1-1.1 BILI UNCON (test code = 9848341173) 0.8 mg/dL 0.1-1.1 BILI CONJ (test code = 7725774766) 0.0 mg/dL 0-0.3 T PROTEIN (test code = 1296826296) 7.6 g/dL 6.3-8.2 ALBUMIN (test code = 8959223518) 4.4 g/dL 3.5-5 ALK PHOS (test code = 6324766166) 139 U/L 34-122 H ALTv (test code = 1742-6) 11 U/L 5-35 AST(SGOT) (test code = 0539889355) 27 U/L 13-40 Lab Interpretation (test cod e = 10439-0) Abnormal [facility] CenterLipase [id number] 17:18:00* Test Item Value Reference Range Interpretation Comme nts LIPASE (test code = 7205883823) 29 U/L 0-220 Lab Interpretation (test cod e = 03959-7) Normal [facility] CenterCBC with Dppvqeictaxo2757-37-11 17:13:00* Test Item Value Reference Range Interpretation [...] 32.2 g/dL 31.6-35.1 RDW-SD (test code = 62541-0) 50.3 fL 39-49.9 H RDW-CV (test code = 788-0) 15.5 % 12-15.5 PLT (test code = 777-3) See_Comment [Automated message] The system which generated this result transmitted reference range: 166 - 358 10*3/?L. The reference range was not used to interpret this result as normal/abnormal. MPV (test code = 01875-5) 10.4 fL 9.5-12.9 NRBC/100 WBC (test code = 5873172391) See_Comment [Automated message] The system which generated this result transmitted reference range: 0.0 - 10.0 /100 WBCs. The reference range was not used to interpret this result as normal/abnormal. NRBC x10^3 (test code = 4749476856) <0.01 See_Comment [Automated message] The system which generated this result transmitted reference range: 10*3/?L. The reference range was not used to interpret this result as normal/abnormal. GRAN MAT (NEUT) % (test code = 770-8) 91.1 % IMM GRAN % (test code = 1404287416) 0.50 % LYMPH % (test code = 736-9) 5.9 % MONO % (test code = 5905-5) 2.0 % EOS % (test code = 713-8) 0.1 % BASO % (test code = 706-2) 0.4 % GRAN MAT x10^3(ANC) (test code = 9448993612) 11.63 10*3/uL 1.88-7.09 H IMM GRAN x10^3 (test code = 5772581959) 0.07 10*3/uL 0-0.06 H LYMPH x10^3 (test code = 731-0) 0.75 10*3/uL 1.32-3.29 L MONO x10^3 (test code = 742-7) 0.25 10*3/uL 0.33-0.92 L EOS x10^3 (test code = 711-2) <0.03 0.03-0.39 L BASO x10^3 (test code = 704-7) 0.05 10*3/uL 0.01-0.07 Lab Interpretation (test code = 19475-5) Abnormal [facility]. METABOLIC PANEL (58950)2020-09-30 15:21:00* Test Item Value Reference Range Interpretation Comme nts NA (test code = 8230257587) 139 mmol/L 135-145 K (test code = 9909174340) 4.1 mmol/L 3.5-5 CL (test code = 9055258357) 110 mmol/L 98-108 H CO2 TOTAL (test code = 0891974826) 23 mmol/L 23-31 AGAP (test code = 1210731020) 2-16 BUN (test code = 2444494116) 4 mg/dL 7-23 L GLUCOSE (test code = 7813456634) 125 mg/dL 70-110 H CREATININE (test code = 5218021424) 0.46 mg/dL 0.5-1.04 L TOTAL BILI (test code = 3829954888) 0.4 mg/dL 0.1-1.1 CALCIUM (test code = 6839242161) 9.4 mg/dL 8.6-10.6 T PROTEIN (test code = 7729153986) 6.2 g/dL 6.3-8.2 L ALBUMIN (test code = 2090659178) 3.5 g/dL 3.5-5 ALK PHOS (test code = 8064648209) 90 U/L 34-122 ALTv (test code = 1742-6) 15 U/L 5-35 AST(SGOT) (test code = 7447961338) 27 U/L 13-40 eGFR Calculation (Non-) (test code = 2353634268) mL/min/1.73m2 eGFR Calculation () (test code = 9708132341) mL/min/1.73m2 THEODORA (test code = THEODORA) Association [...] imaging tests). Lab Interpretation (test code = 62134-3) Abnormal [facility] CenterMAGNESIUM2020-11-18 15:15:00* Test Item Value Reference Range Interpretation Comme nts MAGNESIUM (test code = 2932912693) 1.9 mg/dL 1.7-2.4 Lab Interpretation (test cod e = 82430-6) Normal [facility] CenterPHOSPHORUS2020-11-18 15:15:00* Test Item Value Reference Range Interpretation Comme nts PHOSPHORUS (test code = 8585148565) 2.8 mg/dL 2.5-5 Lab Interpretation (test cod e = 84284-1) Normal [facility] CenterBLOOD CULTURE [id number] 15:03:00* Test Item Value Reference Range Interpretation Comme nts Blood Culture-Aerobic (test code = 35049-5) Culture positive. See Blood Culture Workup for additional information. 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 See Blood Culture Workup for additional information. 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 CenterCBC WITH [id number] 12:48:00* Test Item Value Reference Range Interpretation [...] 32.6 g/dL 31.6-35.1 RDW-SD (test code = 75664-2) 48.5 fL 39-49.9 RDW-CV (test code = 788-0) 14.7 % 12-15.5 PLT (test code = 777-3) See_Comment [Automated messa ge] The system which generated this result transmitted reference range: 166 - 358 10*3/?L. The reference range was not used to interpret this result as normal/abnormal. MPV (test code = 37678-6) 11.2 fL 9.5-12.9 NRBC/100 WBC (test code = 8656979342) See_Comment [Automated me ssage] The system which generated this result transmitted reference range: 0.0 - 10.0 /100 WBCs. The reference range was not used to interpret this result as normal/abnormal. NRBC x10^3 (test code = 5979093568) <0.01 See_Comment [Automated me ssage] The system which generated this result transmitted reference range: 10*3/?L. The reference range was not used to interpret this result as normal/abnormal. GRAN MAT (NEUT) % (test code = 770-8) 67.1 % IMM GRAN % (test code = 4741352843) 0.50 % LYMPH % (test code = 736-9) 22.8 % MONO % (test code = 5905-5) 7.7 % EOS % (test code = 713-8) 1.3 % BASO % (test code = 706-2) 0.6 % GRAN MAT x10^3(ANC) (test code = 2231549631) 5.83 10*3/uL 1.88-7.09 IMM GRAN x10^3 (test code = 3849526801) 0.04 10*3/uL 0-0.06 LYMPH x10^3 (test code = 731-0) 1.98 10*3/uL 1.32-3.29 MONO x10^3 (test code = 742-7) 0.67 10*3/uL 0.33-0.92 EOS x10^3 (test code = 711-2) 0.11 10*3/uL 0.03-0.39 BASO x10^3 (test code = 704-7) 0.05 10*3/uL 0.01-0.07 [facility] CenterPROCALCITONIN2020-11-18 08:08:00* Test Item Value Reference Range Interpretation Comments Procalcitonin (test code = 6620561280) <0.02 See_Comment [Automated message] The system which [...] lung abscess/empyema. For further information please refer to:[email or web address] p Lab Interpretation (test code = 26838-8) Normal [facility] CenterGRAM POSITIVE BLOOD PATHOGENS DNA HUNYE-SBQVYON3081-00-18 07:16:00* Test Item Value Reference Range Interpretation Comme nts Streptococcus species (test code = 43491-8) Positive Negative, See Comment/Narrativ e Tessa THEODORA (test code = THEODORA) See blood culture result for additional information. Testing included eleven identification and three resistancemarker targets. Lab Interpretation (test code = 50798-4) Abnormal [facility] CenterCLOSTRIDIUM DIFFICILE [id number] 00:53:00 * Test Item Value Reference Range Interpretation Comme nts Clostridioides (Clostridium) difficile (test code = 14739-5) Negative Negative Lab Interpretation (test cod e = 44054-4) Normal [facility] CenterSEDIMENTATION [id number] 20:13:00* Test Item Value Reference Range Interpretation Comme nts ESR (test code = 4004309195) See_Comment [Automated messa ge] The system which generated this result transmitted reference range: 0 - 20 mm/HR. The reference range was not used to interpret this result as normal/abnormal. Lab Interpretation (test code = 16654-1) Normal [facility] CenterMAGNESIUM2020-11-17 19:44:00* Test Item Value Reference Range Interpretation Comme nts MAGNESIUM (test code = 3066377622) 1.6 mg/dL 1.7-2.4 L Lab Interpretation (test cod e = 47258-7) Abnormal [facility] CenterLIPASE2020-11-17 19:43:00* Test Item Value Reference Range Interpretation Comme nts LIPASE (test code = 6129952708) 27 U/L 0-220 Lab Interpretation (test cod e = 00573-6) Normal [facility] CenterCB with Zswhdvtfcmfz9404-41-46 13:42:00* Test Item Value Reference Range Interpretation [...] 32.6 g/dL 31.6-35.1 RDW-SD (test code = 58602-9) 46.1 fL 39-49.9 RDW-CV (test code = 788-0) 14.4 % 12-15.5 PLT (test code = 777-3) See_Comment [Automated message] The system which generated this result transmitted reference range: 166 - 358 10*3/?L. The reference range was not used to interpret this result as normal/abnormal. MPV (test code = 03799-9) 11.0 fL 9.5-12.9 NRBC/100 WBC (test code = 0613419737) See_Comment [Automated message] The system which generated this result transmitted reference range: 0.0 - 10.0 /100 WBCs. The reference range was not used to interpret this result as normal/abnormal. NRBC x10^3 (test code = 2230350312) <0.01 See_Comment [Automated message] The system which generated this result transmitted reference range: 10*3/?L. The reference range was not used to interpret this result as normal/abnormal. GRAN MAT (NEUT) % (test code = 770-8) 79.5 % IMM GRAN % (test code = 3863071991) 0.60 % LYMPH % (test code = 736-9) 12.6 % MONO % (test code = 5905-5) 7.1 % EOS % (test code = 713-8) 0.0 % BASO % (test code = 706-2) 0.2 % GRAN MAT x10^3(ANC) (test code = 4928599466) 16.11 10*3/uL 1.88-7.09 H IMM GRAN x10^3 (test code = 6753198784) 0.12 10*3/uL 0-0.06 H LYMPH x10^3 (test code = 731-0) 2.55 10*3/uL 1.32-3.29 MONO x10^3 (test code = 742-7) 1.45 10*3/uL 0.33-0.92 H EOS x10^3 (test code = 711-2) <0.03 0.03-0.39 L BASO x10^3 (test code = 704-7) 0.05 10*3/uL 0.01-0.07 REACT LYMPHS (test code = 3197730141) Rare Lab Interpretation (test code = 93151-8) Abnormal [facility] (NA, K, CL, CO2, GLUCOSE, BUN, CREATININE, CA)2020-09-29 12:43:00* Test Item Value Reference Range Interpretation Comme nts NA (test code = 1418097541) 137 mmol/L 135-145 K (test code = 3393213425) 3.4 mmol/L 3.5-5 L CL (test code = 7801444186) 108 mmol/L 98-108 CO2 TOTAL (test code = 1330656065) 23 mmol/L 23-31 AGAP (test code = 8780119767) 2-16 BUN (test code = 0081631650) 7 mg/dL 7-23 GLUCOSE (test code = 9739398519) 113 mg/dL 70-110 H CREATININE (test code = 3546561830) 0.42 mg/dL 0.5-1.04 L CALCIUM (test code = 0983416574) 9.6 mg/dL 8.6-10.6 eGFR Calculation (Non-) (test code = 3260305217) mL/min/1.73m2 eGFR Calculation () (test code = 9239411780) mL/min/1.73m2 THEODORA (test code = THEODORA) Association [...] imaging tests). Lab Interpretation (test code = 25388-0) Abnormal [facility] CenterLactic Acid Whole [id number] 05:38:00* Test Item Value Reference Range Interpretation Comme nts LACTIC ACID (test code = 8107239745) 0.78 mmol/L [facility] ([facility] NOW RAPID TESTING)2020-09-28 21:38:00* Test Item Value Reference Range Interpretation Comme nts SARS-CoV-2 Rapid ID NOW (test code = 72348-9) Not Detected Not Detected THEODORA (test code = THEODORA) ID NOW COVID-19 As say is an isothermal nucleic acid amplification test intended for the qualitative detection of nucleic acid from SARS-CoV-2 viral RNA in nasopharyngeal (ROLL OFF DRIVER) specimens. It is used under Emergency Use [...] clinically indicated. Lab Interpretation (test code = 87687-6) Normal [facility] CenterLactic Acid Whole [id number] 21:09:00* Test Item Value Reference Range Interpretation Comme nts LACTIC ACID (test code = 8013223819) 3.83 mmol/L [facility] CenterCT ABDOMEN PELVIS W [id number] 20:23:491. Diffuse colonic wall thickening and hyperemia [...] be considered for more definitivecharacterization.RL: 2831RL: 2831 [facility] CenterUrinalysis2020-11-16 20:18:00* Test Item Value Reference Range Interpretation Comme nts APPEARANCE (test code = 0830449581) Clear Clear COLOR (test code = 5581989458) Yellow Yellow PH (test code = 4095570263) 4.8-8.0 SP GRAVITY (test code = 1804743540) 1.003-1.030 GLU U QUAL (test code = 0692617752) 150 mg/dL Normal A BLOOD (test code = 0194143067) Negative Negative KETONES (test code = 7969299485) 20 mg/dL Negative A PROTEIN (test code = 2887-8) Negative Negative UROBILIN (test code = 2365319688) Normal Normal BILIRUBIN (test code = 8354073308) Negative Negative NITRITE (test code = 2814233744) Negative Negative LEUK BIRDIE (test code = 9913786744) Negative Negative RBC/HPF (test code = 8982686796) See_Comment [Automated [employer] ge] The system which generated this result transmitted reference range: 0 - 3 HPF. The reference range was not used to interpret this result as normal/abnormal. WBC/HPF (test code = 0694162448) See_Comment [Automated [employer] ge] The system which generated this result transmitted reference range: 0 - 5 HPF. The reference range was not used to interpret this result as normal/abnormal. BACTERIA (test code = 8524969510) Negative Negative SQ EPITH (test code = 0144424918) HPF Lab Interpretation (test code = 12831-6) Abnormal [facility] / [facility] - DRUG S[facility]EN [id number] 20:13:00* Test Item Value Reference Range Interpretation Comme nts BENZO U (test code = 3104083713) Negative Negative KOTA U (test code = 4548452042) Negative Negative AMPHET (test code = 9389761745) Negative Negative THC (test code = 0445211830) Presumptive Positive Negative A Confirmation of Presumptive Positive THC result requires physician order. METHADONE (test code = 5193660628) Negative Negative Meth U (test code = 8541218441) Negative Negative OPIATES (test code = 3748210963) Negative Negative Cocaine Metabolite (test code = 2117288275) Negative Negative PROPOXY (test code = 7749973154) Negative Negative Tric U (test code = 0171146630) Negative Negative PCP (test code = 7162248346) Negative Negative OXYCOD (test code = 9126365008) Negative Negative THEODORA (test code = THEODORA) [...] legal testing). Lab Interpretation (test code = 54621-0) Abnormal [facility] with Pkaxpqjowkep2845-24-05 18:53:00* Test Item Value Reference Range Interpretation [...] 32.7 g/dL 31.6-35.1 RDW-SD (test code = 75323-0) 45.8 fL 39-49.9 RDW-CV (test code = 788-0) 14.0 % 12-15.5 PLT (test code = 777-3) See_Comment [Automated message] The system which generated this result transmitted reference range: 166 - 358 10*3/?L. The reference range was not used to interpret this result as normal/abnormal. MPV (test code = 56098-5) 10.3 fL 9.5-12.9 NRBC/100 WBC (test code = 2037418750) See_Comment [Automated message] The system which generated this result transmitted reference range: 0.0 - 10.0 /100 WBCs. The reference range was not used to interpret this result as normal/abnormal. NRBC x10^3 (test code = 9877472828) <0.01 See_Comment [Automated message] The system which generated this result transmitted reference range: 10*3/?L. The reference range was not used to interpret this result as normal/abnormal. GRAN MAT (NEUT) % (test code = 770-8) 91.1 % IMM GRAN % (test code = 1788997924) 0.80 % LYMPH % (test code = 736-9) 5.6 % MONO % (test code = 5905-5) 2.3 % EOS % (test code = 713-8) 0.0 % BASO % (test code = 706-2) 0.2 % GRAN MAT x10^3(ANC) (test code = 7227404748) 15.35 10*3/uL 1.88-7.09 H IMM GRAN x10^3 (test code = 9834023966) 0.13 10*3/uL 0-0.06 H LYMPH x10^3 (test code = 731-0) 0.95 10*3/uL 1.32-3.29 L MONO x10^3 (test code = 742-7) 0.39 10*3/uL 0.33-0.92 EOS x10^3 (test code = 711-2) <0.03 0.03-0.39 L BASO x10^3 (test code = 704-7) 0.04 10*3/uL 0.01-0.07 Lab Interpretation (test code = 93373-1) Abnormal [facility] CenterPREGNANCY TEST, [id number] 18:48:00* Test Item Value Reference Range Interpretation Comme nts PREG SERUM (test code = 4429390014) Negative THEODORA (test code = THEODORA) Less than 10 IU/L. ?If low titer or ectopic is suspected, resubmit specimen in 48-[address] [facility] CenterTroponin [id number] 18:44:00* Test Item Value Reference Range Interpretation Comme nts TROPONIN I (test code = 8179386287) <0.012 See_Comment [Automated message] The system which [...] biotin. ? Lab Interpretation (test code = 18119-4) Normal [facility] CenterETHANOL2020-11-16 18:44:00* Test Item Value Reference Range Interpretation Comme nts ALCOHOL (test code = 1560448946) <10 mg/dL THEODORA (test code = THEODORA) <10 Bjzftqio21-850 Toxic>100 Depression of LAST IRONER>[address] [facility] CenteraPTT2020-11-16 18:35:00* Test Item Value Reference Range Interpretation Comme nts APTT Patient (test code = 3173-2) See_Comment [Automated message] The system which generated this result transmitted reference range: 23 - 38 Seconds. The reference range was not used to interpret this result as normal/abnormal. THEODORA (test code = THEODORA) The [facility] patient population mean normal value for aPTT is 30 seconds. Lab Interpretation (test code = 82011-9) Normal [facility] CenterBasi Metabolic Panel (NA, K, CL, CO2, GLUCOSE, BUN, CREATININE, CA)2020-09-28 18:34:00* Test Item Value Reference Range Interpretation Comme nts NA (test code = 1742522519) 140 mmol/L 135-145 K (test code = 1990187312) 3.7 mmol/L 3.5-5 CL (test code = 9417928779) 109 mmol/L 98-108 H CO2 TOTAL (test code = 8536297642) 22 mmol/L 23-31 L AGAP (test code = 7761528609) 2-16 BUN (test code = 4576004910) 16 mg/dL 7-23 GLUCOSE (test code = 2630687871) 210 mg/dL 70-110 H CREATININE (test code = 3076254896) 0.51 mg/dL 0.5-1.04 CALCIUM (test code = 8804187079) 10.3 mg/dL 8.6-10.6 eGFR Calculation (Non-) (test code = 4713217230) mL/min/1.73m2 eGFR Calculation () (test code = 1659197704) mL/min/1.73m2 THEODORA (test code = THEODORA) Association [...] imaging tests). Lab Interpretation (test code = 39151-3) Abnormal [facility] CenterHepatic Function Panel (ALB, T.PRO, BILI T, BU/BC, ALT, AST, ALK PHOS)2020-09-28 18:34:00* Test Item Value Reference Range Interpretation Comme nts TOTAL BILI (test code = 0998281244) 0.7 mg/dL 0.1-1.1 BILI UNCON (test code = 6432409891) 0.7 mg/dL 0.1-1.1 BILI CONJ (test code = 3537682334) 0.0 mg/dL 0-0.3 T PROTEIN (test code = 7932557204) 7.2 g/dL 6.3-8.2 ALBUMIN (test code = 8488146417) 4.1 g/dL 3.5-5 ALK PHOS (test code = 2676155847) 134 U/L 34-122 H ALTv (test code = 1742-6) 17 U/L 5-35 AST(SGOT) (test code = 4511606769) 23 U/L 13-40 Lab Interpretation (test cod e = 50879-2) Abnormal [facility] CenterLipase [id number] 18:34:00* Test Item Value Reference Range Interpretation Comme nts LIPASE (test code = 0598720582) 35 U/L 0-220 Lab Interpretation (test cod e = 02221-3) Normal [facility] CenterProthrombin Time (PT) / [id number] 18:33:00 * Test Item Value Reference Range Interpretation Comme nts PROTIME PATIENT (test code = 5964-2) See_Comment [Automated [employer]] The system which generated this result transmitted reference range: 12.0 - 14.7 Seconds. The reference range was not used to interpret this result as normal/abnormal. INR (test code = 6301-6) Normal INR <1.1; Warfarin Therapeutic range 2.0 to 3.0 or 2.5 to 3.5, depending upon the indications. Lab Interpretation (test code = 51857-7) Normal [facility] CenterURINALYSIS2020-09-23 17:08:00* Test Item Value Reference Range Interpretation Comme nts APPEARANCE (test code = 1422522300) Cloudy Clear A COLOR (test code = 6196930652) Yellow Yellow PH (test code = 3241263231) 4.8-8.0 SP GRAVITY (test code = 9354197352) 1.003-1.030 GLU U QUAL (test code = 9249726846) Normal Normal BLOOD (test code = 7773997687) Negative Negative KETONES (test code = 3992975874) 5 mg/dL Negative A PROTEIN (test code = 2887-8) Negative Negative UROBILIN (test code = 4235190724) Normal Normal BILIRUBIN (test code = 9149693285) Negative Negative NITRITE (test code = 4470692869) Negative Negative LEUK BIRDIE (test code = 5891042656) Negative Negative RBC/HPF (test code = 2636555738) See_Comment [Automated [employer] ge] The system which generated this result transmitted reference range: 0 - 3 HPF. The reference range was not used to interpret this result as normal/abnormal. WBC/HPF (test code = 7694625346) <1 See_Comment [Automated messa ge] The system which generated this result transmitted reference range: 0 - 5 HPF. The reference range was not used to interpret this result as normal/abnormal. BACTERIA (test code = 5604666153) Moderate Negative A MUCOUS (test code = 3415094798) Slight Negative LPF A AMORPHOUS (test code = 8716995979) Many Rare HPF A SQ EPITH (test code = 7266223678) HPF YEAST BUD (test code = 1391995208) See_Comment [Automated [employer] ge] The system which generated this result transmitted reference range: <=1 HPF. The reference range was not used to interpret this result as normal/abnormal. HYAL CAST (test code = 9630751887) See_Comment [Automated [employer] ge] The system which generated this result transmitted reference range: <=2 LPF. The reference range was not used to interpret this result as normal/abnormal. Lab Interpretation (test code = 67656-6) Abnormal [facility] WITH [id number] 16:11:00* Test Item Value Reference Range Interpretation [...] 33.6 g/dL 31.6-35.1 RDW-SD (test code = 80446-3) 44.3 fL 39-49.9 RDW-CV (test code = 788-0) 13.7 % 12-15.5 PLT (test code = 777-3) See_Comment [Automated messa ge] The system which generated this result transmitted reference range: 166 - 358 10*3/?L. The reference range was not used to interpret this result as normal/abnormal. MPV (test code = 51401-5) 10.6 fL 9.5-12.9 NRBC/100 WBC (test code = 3509911316) See_Comment [Automated [employer] ssage] The system which generated this result transmitted reference range: 0.0 - 10.0 /100 WBCs. The reference range was not used to interpret this result as normal/abnormal. NRBC x10^3 (test code = 9297816493) <0.01 See_Comment [Automated messa ge] The system which generated this result transmitted reference range: 10*3/?L. The reference range was not used to interpret this result as normal/abnormal. GRAN MAT (NEUT) % (test code = 770-8) 86.0 % IMM GRAN % (test code = 5145228904) 0.50 % LYMPH % (test code = 736-9) 9.1 % MONO % (test code = 5905-5) 3.6 % EOS % (test code = 713-8) 0.4 % BASO % (test code = 706-2) 0.4 % GRAN MAT x10^3(ANC) (test code = 6213080891) 9.56 10*3/uL 1.88-7.09 H IMM GRAN x10^3 (test code = 5465485470) 0.05 10*3/uL 0-0.06 LYMPH x10^3 (test code = 731-0) 1.01 10*3/uL 1.32-3.29 L MONO x10^3 (test code = 742-7) 0.40 10*3/uL 0.33-0.92 EOS x10^3 (test code = 711-2) 0.04 10*3/uL 0.03-0.39 BASO x10^3 (test code = 704-7) 0.04 10*3/uL 0.01-0.07 Lab Interpretation (test code = 05625-5) Abnormal [facility] CenterCOMP. METABOLIC PANEL (23616)2020-08-05 16:11:00* Test Item Value Reference Range Interpretation Comme nts NA (test code = 2652420000) 137 mmol/L 135-145 K (test code = 3496446685) 3.6 mmol/L 3.5-5 CL (test code = 6673286772) 104 mmol/L 98-108 CO2 TOTAL (test code = 4071781826) 23 mmol/L 23-31 AGAP (test code = 3037118940) 2-16 BUN (test code = 4151281285) 13 mg/dL 7-23 GLUCOSE (test code = 0669733938) 140 mg/dL 70-110 H CREATININE (test code = 6311449683) 0.44 mg/dL 0.5-1.04 L TOTAL BILI (test code = 2452938576) 0.6 mg/dL 0.1-1.1 CALCIUM (test code = 3118020203) 10.0 mg/dL 8.6-10.6 T PROTEIN (test code = 2727993853) 7.1 g/dL 6.3-8.2 ALBUMIN (test code = 1883984360) 3.9 g/dL 3.5-5 ALK PHOS (test code = 4322812560) 117 U/L 34-122 ALTv (test code = 1742-6) 17 U/L 5-35 AST(SGOT) (test code = 6969291960) 25 U/L 13-40 eGFR Calculation (Non-) (test code = 5022930603) mL/min/1.73m2 eGFR Calculation () (test code = 8124339577) mL/min/1.73m2 THEODORA (test code = THEODORA) Association [...] imaging tests). Lab Interpretation (test code = 22880-5) [facility] BranchL[facility] (64521)(TOTAL CHOLESTEROL, TRIGLYCERIDES, HDL)2020-08-05 16:11:00* Test Item Value Reference Range Interpretation Comme nts CHOL (test code = 5304106255) 215 mg/dL 120-200 H HDL (test code = 3410418236) 63 mg/dL >50 HDLC RATIO (test code = 3902262503) See_Comment [Automated [employer] ge] The system which generated this result transmitted reference range: <=4.5. The reference range was not used to interpret this result as normal/abnormal. TRIG (test code = 2719356800) 121 mg/dL 30-170 LDL CHOL (test code = 09681-9) 128 mg/dL See_Comment [Automated [employer] ge] The system which generated this result transmitted reference range: <=160. The reference range was not used to interpret this result as normal/abnormal. VLDL (test code = 6198064936) 24 mg/dL 5-60 Lab Interpretation (test code = 59882-2) Abnormal [facility] CenterLIPASE2020-09-23 16:10:00* Test Item Value Reference Range Interpretation Comme nts LIPASE (test code = 9582894589) 42 U/L 0-220 Lab Interpretation (test cod e = 10740-5) Normal [facility] CenterLactic Acid Whole Nwksx3028-03-79 17:58:00* Test Item Value Reference Range Interpretation Comme nts LACTIC ACID (test code = 3014505765) 1.61 mmol/L [facility] CenterURINALYSIS2020-09-21 17:13:00* Test Item Value Reference Range Interpretation Comme nts APPEARANCE (test code = 0648270520) Clear Clear COLOR (test code = 4484007002) Yellow Yellow PH (test code = 1015818516) 4.8-8.0 SP GRAVITY (test code = 7687270994) 1.003-1.030 GLU U QUAL (test code = 7721008939) Negative Negative BLOOD (test code = 6417300983) Trace Negative A KETONES (test code = 7009292401) Negative Negative PROTEIN (test code = 2887-8) Negative Negative UROBILIN (test code = 1344406360) 0.2 mg/dL See_Comment [Automated [employer] ge] The system which generated this result transmitted reference range: 0-1.0 mg/dL. The reference range was not used to interpret this result as normal/abnormal. BILIRUBIN (test code = 5926435569) Negative Negative NITRITE (test code = 5969428909) Negative Negative LEUK BIRDIE (test code = 4626141806) Negative Negative RBC/HPF (test code = 3794732928) See_Comment [Automated [employer]] The system which generated this result transmitted reference range: 0 - 3 HPF. The reference range was not used to interpret this result as normal/abnormal. WBC/HPF (test code = 6080552384) See_Comment [Automated [employer]] The system which generated this result transmitted reference range: 0 - 5 HPF. The reference range was not used to interpret this result as normal/abnormal. BACTERIA (test code = 7524522629) Negative Negative SQ EPITH (test code = 4181233732) <1 HPF Lab Interpretation (test code = 97304-1) Abnormal [facility] CenterCT ABDOMEN PELVIS W [id number] 16:01:061. ?No acute abdominopelvic process is identified. [...] reviewed this study and agree with the abovereport.[facility] CenterGLYCOSYLATED HEMOGLOBIN (A1C)2020-08-03 14:40:00* Test Item Value Reference Range Interpretation Comme nts HGB A1C (test code = 4548-4) 5.4 % 4-6 THEODORA (test code = THEODORA) %A1C (NGSP) Interpretation (ADA)4.8-5.6 ? ? Normal or (Non-Diabetic Range)5.7-6.4 ? ? Increased Risk (Pre-Diabetic)>6.5 ?Diabetes Indicated Lab Interpretation (test code = 21574-8) Normal [facility] CenterCOVID-19 (ID NOW RAPID TESTING)2020-08-03 14:37:00* Test Item Value Reference Range Interpretation Comme nts SARS-CoV-2 Rapid ID NOW (test code = 64752-6) Not Detected Not Detected THEODORA (test code = THEODORA) ID NOW COVID-19 As say is an isothermal nucleic acid amplification test intended for the qualitative detection of nucleic acid from SARS-CoV-2 viral RNA in nasopharyngeal (ROLL OFF DRIVER) specimens. It is used under Emergency Use [...] clinically indicated. Lab Interpretation (test code = 99471-2) Normal [facility] CenterLIPID PANEL (09551)(TOTAL CHOLESTEROL, TRIGLYCERIDES, HDL)2020-08-03 14:33:00* Test Item Value Reference Range Interpretation Comme nts CHOL (test code = 7620390039) 213 mg/dL 120-200 H HDL (test code = 6692123971) 65 mg/dL >50 HDLC RATIO (test code = 8193547305) See_Comment [Automated [employer]] The system which generated this result transmitted reference range: <=4.5. The reference range was not used to interpret this result as normal/abnormal. TRIG (test code = 0318126158) 148 mg/dL 30-170 LDL CHOL (test code = 29669-3) 118 mg/dL See_Comment [Automated [employer]] The system which generated this result transmitted reference range: <=160. The reference range was not used to interpret this result as normal/abnormal. VLDL (test code = 5306558646) 30 mg/dL 5-60 Lab Interpretation (test code = 36577-5) Abnormal [facility]. METABOLIC PANEL (16498)2020-08-03 14:32:00* Test Item Value Reference Range Interpretation Comme nts NA (test code = 5010350523) 138 mmol/L 135-145 K (test code = 3462389381) 3.8 mmol/L 3.5-5 CL (test code = 8061813796) 105 mmol/L 98-108 CO2 TOTAL (test code = 4475917783) 23 mmol/L 23-31 AGAP (test code = 0635246045) 2-16 BUN (test code = 9526445916) 13 mg/dL 7-23 GLUCOSE (test code = 0095921225) 160 mg/dL 70-110 H CREATININE (test code = 1413261605) 0.59 mg/dL 0.5-1.04 TOTAL BILI (test code = 4362558389) 0.4 mg/dL 0.1-1.1 CALCIUM (test code = 2134167670) 10.8 mg/dL 8.6-10.6 H T PROTEIN (test code = 5401028750) 7.2 g/dL 6.3-8.2 ALBUMIN (test code = 3454671179) 4.1 g/dL 3.5-5 ALK PHOS (test code = 5489389559) 125 U/L 34-122 H ALTv (test code = 1742-6) 18 U/L 5-35 AST(SGOT) (test code = 9081261096) 24 U/L 13-40 eGFR Calculation (Non-) (test code = 8434869562) mL/min/1.73m2 eGFR Calculation () (test code = 4505292712) mL/min/1.73m2 THEODORA (test code = THEODORA) Association [...] imaging tests). Lab Interpretation (test code = 97549-8) Abnormal [facility] CenterLIPASE2020-09-21 14:32:00* Test Item Value Reference Range Interpretation Comme nts LIPASE (test code = 0996955106) 40 U/L 0-220 Lab Interpretation (test cod e = 59590-3) Normal [facility] CenterCBC WITH [id number] 14:18:00* Test Item Value Reference Range Interpretation [...] 32.4 g/dL 31.6-35.1 RDW-SD (test code = 35279-5) 46.1 fL 39-49.9 RDW-CV (test code = 788-0) 13.6 % 12-15.5 PLT (test code = 777-3) See_Comment [Automated message] The system which generated this result transmitted reference range: 166 - 358 10*3/?L. The reference range was not used to interpret this result as normal/abnormal. MPV (test code = 07475-7) 9.9 fL 9.5-12.9 NRBC/100 WBC (test code = 4918422771) See_Comment [Automated message] The system which generated this result transmitted reference range: 0.0 - 10.0 /100 WBCs. The reference range was not used to interpret this result as normal/abnormal. NRBC x10^3 (test code = 2869806988) <0.01 See_Comment [Automated message] The system which generated this result transmitted reference range: 10*3/?L. The reference range was not used to interpret this result as normal/abnormal. GRAN MAT (NEUT) % (test code = 770-8) 85.5 % IMM GRAN % (test code = 8650604111) 0.70 % LYMPH % (test code = 736-9) 9.6 % MONO % (test code = 5905-5) 3.4 % EOS % (test code = 713-8) 0.4 % BASO % (test code = 706-2) 0.4 % GRAN MAT x10^3(ANC) (test code = 1619191561) 11.69 10*3/uL 1.88-7.09 H IMM GRAN x10^3 (test code = 2429421317) 0.10 10*3/uL 0-0.06 H LYMPH x10^3 (test code = 731-0) 1.32 10*3/uL 1.32-3.29 MONO x10^3 (test code = 742-7) 0.47 10*3/uL 0.33-0.92 EOS x10^3 (test code = 711-2) 0.06 10*3/uL 0.03-0.39 BASO x10^3 (test code = 704-7) 0.06 10*3/uL 0.01-0.07 Lab Interpretation (test code = 82738-1) Abnormal [facility] CenterLactic Acid Whole [id number] 14:16:00* Test Item Value Reference Range Interpretation Comme nts LACTIC ACID (test code = 3035962460) 3.50 mmol/L [facility] Metabolic Panel (NA, K, CL, CO2, GLUCOSE, BUN, CREATININE, CA)2020-05-22 07:14:00* Test Item Value Reference Range Interpretation Comme nts NA (test code = 9100119235) 138 mmol/L 135-145 K (test code = 1510289312) 4.0 mmol/L 3.5-5 CL (test code = 3898522176) 109 mmol/L 98-108 H CO2 TOTAL (test code = 5620756376) 25 mmol/L 23-31 AGAP (test code = 3273412653) 2-16 BUN (test code = 8815129171) 8 mg/dL 7-23 GLUCOSE (test code = 8163864203) 95 mg/dL 70-110 CREATININE (test code = 3606417067) 0.50 mg/dL 0.5-1.04 CALCIUM (test code = 7784062731) 9.7 mg/dL 8.6-10.6 eGFR Calculation (Non-) (test code = 0088921588) mL/min/1.73m2 eGFR Calculation () (test code = 9099050198) mL/min/1.73m2 THEODORA (test code = THEODORA) Association [...] imaging tests). Lab Interpretation (test code = 59560-4) Abnormal [facility] CenterMAGNESIUM2020-07-10 06:58:00* Test Item Value Reference Range Interpretation Comme nts MAGNESIUM (test code = 6137368678) 2.2 mg/dL 1.7-2.4 Lab Interpretation (test cod e = 78644-7) Normal [facility] CenterPHOSPHORUS2020-07-10 06:57:00* Test Item Value Reference Range Interpretation Comme nts PHOSPHORUS (test code = 7966126041) 2.8 mg/dL 2.5-5 Lab Interpretation (test cod e = 44053-8) Normal [facility] CenterCBC WITH [id number] 06:33:00* Test Item Value Reference Range Interpretation Comme nts WBC (test code = 6690-2) See_Comment [Automated [employer]] The system which generated this result transmitted reference range: 4.30 - 11.10 10*3/?L. The reference range was not used to interpret this result as normal/abnormal. RBC (test code = 789-8) See_Comment [Automated [employer]] The system which generated this result transmitted [...] 33.2 g/dL 31.6-35.1 RDW-SD (test code = 54172-8) 49.1 fL 39-49.9 RDW-CV (test code = 788-0) 14.9 % 12-15.5 PLT (test code = 777-3) See_Comment [Automated messa ge] The system which generated this result transmitted reference range: 166 - 358 10*3/?L. The reference range was not used to interpret this result as normal/abnormal. MPV (test code = 20241-3) 10.1 fL 9.5-12.9 NRBC/100 WBC (test code = 7092536798) See_Comment [Automated me ssage] The system which generated this result transmitted reference range: 0.0 - 10.0 /100 WBCs. The reference range was not used to interpret this result as normal/abnormal. NRBC x10^3 (test code = 7745761708) <0.01 See_Comment [Automated me ssage] The system which generated this result transmitted reference range: 10*3/?L. The reference range was not used to interpret this result as normal/abnormal. GRAN MAT (NEUT) % (test code = 770-8) 52.7 % IMM GRAN % (test code = 9483994318) 0.60 % LYMPH % (test code = 736-9) 31.6 % MONO % (test code = 5905-5) 10.4 % EOS % (test code = 713-8) 4.0 % BASO % (test code = 706-2) 0.7 % GRAN MAT x10^3(ANC) (test code = 8164601430) 4.46 10*3/uL 1.88-7.09 IMM GRAN x10^3 (test code = 3367010564) 0.05 10*3/uL 0-0.06 LYMPH x10^3 (test code = 731-0) 2.68 10*3/uL 1.32-3.29 MONO x10^3 (test code = 742-7) 0.88 10*3/uL 0.33-0.92 EOS x10^3 (test code = 711-2) 0.34 10*3/uL 0.03-0.39 BASO x10^3 (test code = 704-7) 0.06 10*3/uL 0.01-0.07 [facility] Metabolic Panel (NA, K, CL, CO2, GLUCOSE, BUN, CREATININE, CA)2020-05-21 19:22:00* Test Item Value Reference Range Interpretation Comme nts NA (test code = 0581124309) 137 mmol/L 135-145 K (test code = 8562641134) 2.9 mmol/L 3.5-5 LL CL (test code = 8718885209) 105 mmol/L 98-108 CO2 TOTAL (test code = 9353817362) 25 mmol/L 23-31 AGAP (test code = 3833226698) 2-16 BUN (test code = 2952054302) 12 mg/dL 7-23 GLUCOSE (test code = 3026216084) 127 mg/dL 70-110 H CREATININE (test code = 2203533263) 0.50 mg/dL 0.5-1.04 CALCIUM (test code = 8422436768) 9.4 mg/dL 8.6-10.6 eGFR Calculation (Non-) (test code = 1534463242) mL/min/1.73m2 eGFR Calculation () (test code = 8489912686) mL/min/1.73m2 THEODORA (test code = THEODORA) Association [...] imaging tests). Lab Interpretation (test code = 95521-6) Abnormal [facility] CenterMAGNESIUM2020-07-09 19:10:00* Test Item Value Reference Range Interpretation Comme nts MAGNESIUM (test code = 9007586380) 2.6 mg/dL 1.7-2.4 H Lab Interpretation (test cod e = 27489-5) Abnormal [facility]COVID[facility] (ID NOW RAPID TESTING)2020-05-21 06:02:00* Test Item Value Reference Range Interpretation Comme nts SARS-CoV-2 Rapid ID NOW (test code = 24439-3) Not Detected Not Detected THEODORA (test code = THEODORA) ID NOW COVID-19 As say is an isothermal nucleic acid amplification test intended for the qualitative detection of nucleic acid from SARS-CoV-2 viral RNA in nasopharyngeal (ROLL OFF DRIVER) specimens. It is used under Emergency Use [...] clinically indicated. Lab Interpretation (test code = 46076-1) Normal [facility]MAG[facility]UM2020-07-09 04:47:00* Test Item Value Reference Range Interpretation Comme nts MAGNESIUM (test code = 0457509859) 1.6 mg/dL 1.7-2.4 L Slight hemolysis Lab Interpretation (test code = 14361-1) Abnormal [facility] CenterCOMP. METABOLIC PANEL (11123)2020-05-21 04:05:00* Test Item Value Reference Range Interpretation Comme nts NA (test code = 6063751698) 136 mmol/L 135-145 K (test code = 8082901994) 2.9 mmol/L 3.5-5 LL CL (test code = 1193755193) 100 mmol/L 98-108 CO2 TOTAL (test code = 9803478763) 22 mmol/L 23-31 L AGAP (test code = 2142547011) 2-16 BUN (test code = 0481743190) 13 mg/dL 7-23 GLUCOSE (test code = 9064452351) 101 mg/dL 70-110 CREATININE (test code = 3019669769) 0.52 mg/dL 0.5-1.04 TOTAL BILI (test code = 2554418880) 1.4 mg/dL 0.1-1.1 H CALCIUM (test code = 4803447895) 10.3 mg/dL 8.6-10.6 T PROTEIN (test code = 9369462161) 8.3 g/dL 6.3-8.2 H ALBUMIN (test code = 1288878291) 4.6 g/dL 3.5-5 ALK PHOS (test code = 1430403866) 83 U/L 34-122 ALTv (test code = 1742-6) 14 U/L 5-35 AST(SGOT) (test code = 6040435760) 28 U/L 13-40 eGFR Calculation (Non-) (test code = 0641139193) mL/min/1.73m2 eGFR Calculation () (test code = 0521361260) mL/min/1.73m2 THEODORA (test code = THEODORA) Association [...] imaging tests). Lab Interpretation (test code = 35378-1) Abnormal [facility] CenterLIPASE2020-07-09 03:51:00* Test Item Value Reference Range Interpretation Comme nts LIPASE (test code = 8977592511) 17 U/L 0-220 Lab Interpretation (test cod e = 03762-3) Normal [facility] CenterCB WITH [id number] 03:39:00* Test Item Value Reference Range Interpretation [...] 34.5 g/dL 31.6-35.1 RDW-SD (test code = 38594-0) 45.1 fL 39-49.9 RDW-CV (test code = 788-0) 14.5 % 12-15.5 PLT (test code = 777-3) See_Comment [Automated message] The system which generated this result transmitted reference range: 166 - 358 10*3/?L. The reference range was not used to interpret this result as normal/abnormal. MPV (test code = 21523-2) 10.4 fL 9.5-12.9 NRBC/100 WBC (test code = 3267000568) See_Comment [Automated message] The system which generated this result transmitted reference range: 0.0 - 10.0 /100 WBCs. The reference range was not used to interpret this result as normal/abnormal. NRBC x10^3 (test code = 6827924765) <0.01 See_Comment [Automated message] The system which generated this result transmitted reference range: 10*3/?L. The reference range was not used to interpret this result as normal/abnormal. GRAN MAT (NEUT) % (test code = 770-8) 89.5 % IMM GRAN % (test code = 3949992148) 0.80 % LYMPH % (test code = 736-9) 6.2 % MONO % (test code = 5905-5) 2.9 % EOS % (test code = 713-8) 0.1 % BASO % (test code = 706-2) 0.5 % GRAN MAT x10^3(ANC) (test code = 3405219950) 11.85 10*3/uL 1.88-7.09 H IMM GRAN x10^3 (test code = 7323959203) 0.11 10*3/uL 0-0.06 H LYMPH x10^3 (test code = 731-0) 0.82 10*3/uL 1.32-3.29 L MONO x10^3 (test code = 742-7) 0.38 10*3/uL 0.33-0.92 EOS x10^3 (test code = 711-2) <0.03 0.03-0.39 L BASO x10^3 (test code = 704-7) 0.06 10*3/uL 0.01-0.07 Lab Interpretation (test code = 30028-7) Abnormal [facility] CenterMR ABDOMEN W WO CONTRAST [id number] 16:59:56HISTORY: Chronic pancreatitis. TECHNIQUE: MRI studies of [...] but most likelyprobably incidental benign nonfunctioning adenomas. [facility] CenterNM HEPATOBILIARY W [id number] 17:44:55Normal hepatobiliary scintigraphy. 1. Prior cholecystectomy.2. No evidence of biliary obstruction or leak. I, Ganga Medrano MD., have reviewed this study and agree [...] bowel transit. Gallbladder ejection fraction was 82%. [facility],Radiant Results Inft User - 05/18/2020 12:46 PM [...] reviewed this study and agree with the abovereport.[facility] Basic Metabolic Panel (NA, K, CL, CO2, GLUCOSE, BUN, CREATININE, CA)2020-05-17 11:08:00* Test Item Value Reference Range Interpretation Comme nts NA (test code = 6366266497) 141 mmol/L 135-145 K (test code = 1669485330) 4.0 mmol/L 3.5-5 CL (test code = 1372059044) 113 mmol/L 98-108 H CO2 TOTAL (test code = 4056170435) 23 mmol/L 23-31 AGAP (test code = 6184356641) 2-16 BUN (test code = 5885053229) 11 mg/dL 7-23 GLUCOSE (test code = 0543725045) 86 mg/dL 70-110 CREATININE (test code = 5183269876) 0.59 mg/dL 0.5-1.04 CALCIUM (test code = 5530396957) 10.3 mg/dL 8.6-10.6 eGFR Calculation (Non-) (test code = 7759982910) mL/min/1.73m2 eGFR Calculation () (test code = 2004480625) mL/min/1.73m2 THEODORA (test code = THEODORA) Association [...] imaging tests). Lab Interpretation (test code = 45457-1) Abnormal [facility] WITH [id number] 10:19:00* Test Item Value Reference Range Interpretation Comme nts WBC (test code = 6690-2) See_Comment [HighlightCam] The system which generated this result transmitted reference range: 4.30 - 11.10 10*3/?L. The reference range was not used to interpret this result as normal/abnormal. RBC (test code = 789-8) See_Comment [HighlightCam] The system which generated this result transmitted [...] 31.9 g/dL 31.6-35.1 RDW-SD (test code = 05665-8) 54.3 fL 39-49.9 H RDW-CV (test code = 788-0) 16.0 % 12-15.5 H PLT (test code = 777-3) See_Comment [Automated messa ge] The system which generated this result transmitted reference range: 166 - 358 10*3/?L. The reference range was not used to interpret this result as normal/abnormal. MPV (test code = 58641-6) 10.8 fL 9.5-12.9 NRBC/100 WBC (test code = 3586011512) See_Comment [Automated me ssage] The system which generated this result transmitted reference range: 0.0 - 10.0 /100 WBCs. The reference range was not used to interpret this result as normal/abnormal. NRBC x10^3 (test code = 3149913176) <0.01 See_Comment [Automated messa ge] The system which generated this result transmitted reference range: 10*3/?L. The reference range was not used to interpret this result as normal/abnormal. GRAN MAT (NEUT) % (test code = 770-8) 56.9 % IMM GRAN % (test code = 6985630071) 0.60 % LYMPH % (test code = 736-9) 32.7 % MONO % (test code = 5905-5) 7.2 % EOS % (test code = 713-8) 1.7 % BASO % (test code = 706-2) 0.9 % GRAN MAT x10^3(ANC) (test code = 2673114332) 5.45 10*3/uL 1.88-7.09 IMM GRAN x10^3 (test code = 7749936693) 0.06 10*3/uL 0-0.06 LYMPH x10^3 (test code = 731-0) 3.13 10*3/uL 1.32-3.29 MONO x10^3 (test code = 742-7) 0.69 10*3/uL 0.33-0.92 EOS x10^3 (test code = 711-2) 0.16 10*3/uL 0.03-0.39 BASO x10^3 (test code = 704-7) 0.09 10*3/uL 0.01-0.07 H Lab Interpretation (test code = 45379-0) Abnormal [facility] CenterXR [id number] 13:32:31No acute intra- abdominal findings. Preliminary Report Dictated by Resident: Mohamed MontesLamin Boyce MD., have reviewed this study and agree [...] reviewed this study and agree withthe above report.[facility] / [facility] - DRUG SCRE[facility] [id number] 07:34:00* Test Item Value Reference Range Interpretation Comme nts BENZO U (test code = 9585018223) Presumptive Positive Negative A KOTA U (test code = 1841174608) Negative Negative AMPHET (test code = 4935750771) Negative Negative THC (test code = 8364589265) Presumptive Positive Negative A Confirmation of Presumptive Positive THC result requires physician order. METHADONE (test code = 3488038763) Negative Negative Meth U (test code = 0805310783) Negative Negative OPIATES (test code = 8571904501) Negative Negative Cocaine Metabolite (test code = 9538910063) Negative Negative PROPOXY (test code = 3351866703) Negative Negative Tric U (test code = 2756662343) Negative Negative PCP (test code = 8641125840) Negative Negative OXYCOD (test code = 8356492898) Negative Negative THEODORA (test code = THEODORA) [...] legal testing). Lab Interpretation (test code = 46358-9) Abnormal [facility] CenterCOVID[facility] (ID NOW RAPID TESTING)2020-05-16 05:44:00* Test Item Value Reference Range Interpretation Comme nts SARS-CoV-2 Rapid ID NOW (test code = 34637-1) Not Detected Not Detected THEODORA (test code = THEODORA) ID NOW COVID-19 As say is an isothermal nucleic acid amplification test intended for the qualitative detection of nucleic acid from SARS-CoV-2 viral RNA in nasopharyngeal (ROLL OFF DRIVER) specimens. It is used under Emergency Use [...] clinically indicated. Lab Interpretation (test code = 03864-7) Normal [facility] CenterUrinalysis2020-07-04 05:21:00* Test Item Value Reference Range Interpretation Comme nts APPEARANCE (test code = 8130115354) Hazy Clear A COLOR (test code = 2865636132) Yellow Yellow PH (test code = 0428425773) 4.8-8.0 SP GRAVITY (test code = 0697319679) 1.003-1.030 GLU U QUAL (test code = 4941581298) 50 mg/dL Normal A BLOOD (test code = 2796018448) Negative Negative KETONES (test code = 6757762835) 20 mg/dL Negative A PROTEIN (test code = 2887-8) Negative Negative UROBILIN (test code = 7950773367) Normal Normal BILIRUBIN (test code = 0303134586) Negative Negative NITRITE (test code = 3405675324) Negative Negative LEUK BIRDIE (test code = 6316722688) Negative Negative RBC/HPF (test code = 8379011150) See_Comment H [Automated [place] ge] The system which generated this result transmitted reference range: 0 - 3 HPF. The reference range was not used to interpret this result as normal/abnormal. WBC/HPF (test code = 1169120316) See_Comment [Automated [place] ge] The system which generated this result transmitted reference range: 0 - 5 HPF. The reference range was not used to interpret this result as normal/abnormal. BACTERIA (test code = 9538970595) Few Negative A MUCOUS (test code = 8012105113) Moderate Negative LPF A SQ EPITH (test code = 4021724707) HPF Lab Interpretation (test code = 54926-1) [facility]normal [facility] (NA, K, CL, CO2, GLUCOSE, BUN, CREATININE, CA)2020-05-16 02:56:00* Test Item Value Reference Range Interpretation Comme nts NA (test code = 8899045358) 138 mmol/L 135-145 K (test code = 2213670633) 3.4 mmol/L 3.5-5 L CL (test code = 4267125471) 106 mmol/L 98-108 CO2 TOTAL (test code = 3976846635) 22 mmol/L 23-31 L AGAP (test code = 2322972558) 2-16 BUN (test code = 2126146999) 21 mg/dL 7-23 GLUCOSE (test code = 1405816100) 164 mg/dL 70-110 H CREATININE (test code = 2911525267) 0.59 mg/dL 0.5-1.04 CALCIUM (test code = 0714911345) 11.2 mg/dL 8.6-10.6 H eGFR Calculation (Non-) (test code = 0539416441) mL/min/1.73m2 eGFR Calculation () (test code = 4133820732) mL/min/1.73m2 THEODORA (test code = THEODORA) Association [...] imaging tests). Lab Interpretation (test code = 28916-7) Abnormal [facility] CenterHepatic Function Panel (ALB, T.PRO, BILI T, BU/BC, ALT, AST, ALK PHOS)2020-05-16 02:56:00* Test Item Value Reference Range Interpretation Comme nts TOTAL BILI (test code = 7062649521) 0.9 mg/dL 0.1-1.1 BILI UNCON (test code = 4545614191) 1.0 mg/dL 0.1-1.1 BILI CONJ (test code = 9760047134) 0.0 mg/dL 0-0.3 T PROTEIN (test code = 2488037608) 8.3 g/dL 6.3-8.2 H ALBUMIN (test code = 4200619788) 4.6 g/dL 3.5-5 ALK PHOS (test code = 4081668525) 102 U/L 34-122 ALTv (test code = 1742-6) 19 U/L 5-35 AST(SGOT) (test code = 7937592543) 29 U/L 13-40 Lab Interpretation (test cod e = 04881-8) Abnormal [facility] CenterLipase [id number] 02:56:00* Test Item Value Reference Range Interpretation Comme nts LIPASE (test code = 8877558033) 29 U/L 0-220 Lab Interpretation (test cod e = 21175-8) Normal [facility] CenterCBC WITH [id number] 02:41:00* Test Item Value Reference Range Interpretation [...] 33.7 g/dL 31.6-35.1 RDW-SD (test code = 45020-0) 46.8 fL 39-49.9 RDW-CV (test code = 788-0) 14.9 % 12-15.5 PLT (test code = 777-3) See_Comment [Automated message] The system which generated this result transmitted reference range: 166 - 358 10*3/?L. The reference range was not used to interpret this result as normal/abnormal. MPV (test code = 71607-5) 10.1 fL 9.5-12.9 NRBC/100 WBC (test code = 9939068517) See_Comment [Automated message] The system which generated this result transmitted reference range: 0.0 - 10.0 /100 WBCs. The reference range was not used to interpret this result as normal/abnormal. NRBC x10^3 (test code = 4113043435) <0.01 See_Comment [Automated message] The system which generated this result transmitted reference range: 10*3/?L. The reference range was not used to interpret this result as normal/abnormal. GRAN MAT (NEUT) % (test code = 770-8) 90.5 % IMM GRAN % (test code = 3241146094) 0.60 % LYMPH % (test code = 736-9) 6.4 % MONO % (test code = 5905-5) 2.2 % EOS % (test code = 713-8) 0.0 % BASO % (test code = 706-2) 0.3 % GRAN MAT x10^3(ANC) (test code = 8386800934) 15.84 10*3/uL 1.88-7.09 H IMM GRAN x10^3 (test code = 4284571060) 0.10 10*3/uL 0-0.06 H LYMPH x10^3 (test code = 731-0) 1.12 10*3/uL 1.32-3.29 L MONO x10^3 (test code = 742-7) 0.38 10*3/uL 0.33-0.92 EOS x10^3 (test code = 711-2) <0.03 0.03-0.39 L BASO x10^3 (test code = 704-7) 0.05 10*3/uL 0.01-0.07 Lab Interpretation (test code = 50422-2) Abnormal [facility] METABOLIC PANEL (NA, K, CL, CO2, GLUCOSE, BUN, CREATININE, CA)2020-04-07 10:06:00* Test Item Value Reference Range Interpretation Comme nts NA (test code = 1067825501) 139 mmol/L 135-145 K (test code = 2395086083) 3.4 mmol/L 3.5-5 L CL (test code = 8922802274) 104 mmol/L 98-108 CO2 TOTAL (test code = 5245606178) 25 mmol/L 23-31 AGAP (test code = 7737114378) 2-16 BUN (test code = 8344239173) 11 mg/dL 7-23 GLUCOSE (test code = 5129322043) 113 mg/dL 70-110 H CREATININE (test code = 8684967061) 0.44 mg/dL 0.5-1.04 L CALCIUM (test code = 3876122395) 10.0 mg/dL 8.6-10.6 eGFR Calculation (Non-) (test code = 6248033966) mL/min/1.73m2 eGFR Calculation () (test code = 6294207794) mL/min/1.73m2 THEODORA (test code = THEODORA) Association [...] imaging tests). Lab Interpretation (test code = 14543-1) Abnormal [facility] WITH [id number] 09:38:00* Test Item Value Reference Range Interpretation [...] 32.9 g/dL 31.6-35.1 RDW-SD (test code = 97112-6) 47.5 fL 39-49.9 RDW-CV (test code = 788-0) 14.8 % 12-15.5 PLT (test code = 777-3) See_Comment [Automated message] The system which generated this result transmitted reference range: 166 - 358 10*3/?L. The reference range was not used to interpret this result as normal/abnormal. MPV (test code = 15108-0) 11.0 fL 9.5-12.9 NRBC/100 WBC (test code = 9366621016) See_Comment [Automated message] The system which generated this result transmitted reference range: 0.0 - 10.0 /100 WBCs. The reference range was not used to interpret this result as normal/abnormal. NRBC x10^3 (test code = 4565953262) <0.01 See_Comment [Automated message] The system which generated this result transmitted reference range: 10*3/?L. The reference range was not used to interpret this result as normal/abnormal. GRAN MAT (NEUT) % (test code = 770-8) 83.9 % IMM GRAN % (test code = 4141453524) 0.60 % LYMPH % (test code = 736-9) 10.0 % MONO % (test code = 5905-5) 5.1 % EOS % (test code = 713-8) 0.0 % BASO % (test code = 706-2) 0.4 % GRAN MAT x10^3(ANC) (test code = 4671774410) 10.44 10*3/uL 1.88-7.09 H IMM GRAN x10^3 (test code = 5489016205) 0.07 10*3/uL 0-0.06 H LYMPH x10^3 (test code = 731-0) 1.25 10*3/uL 1.32-3.29 L MONO x10^3 (test code = 742-7) 0.63 10*3/uL 0.33-0.92 EOS x10^3 (test code = 711-2) <0.03 0.03-0.39 L BASO x10^3 (test code = 704-7) 0.05 10*3/uL 0.01-0.07 Lab Interpretation (test code = 61254-3) Abnormal [facility] CenterPOCT GLUCOSE (AUTOMATED)2020-04-06 16:49:00* Test Item Value Reference Range Interpretation Comme nts POCT GLU (test code = 8403415465) 114 mg/dL 70-110 H Lab Interpretation (test cod e = 92361-5) Abnormal [facility] CenterUS GALL [id number] 14:42:32No cholelithiasis or sonographic evidence of cholecystitis. [...] this study and agree with the abovereport.[facility] Metabolic Panel (NA, K, CL, CO2, GLUCOSE, BUN, CREATININE, CA)2020-04-06 10:17:00* Test Item Value Reference Range Interpretation Comme nts NA (test code = 7074853407) 139 mmol/L 135-145 K (test code = 1931179532) 3.2 mmol/L 3.5-5 L CL (test code = 5479051130) 106 mmol/L 98-108 CO2 TOTAL (test code = 5927118784) 22 mmol/L 23-31 L AGAP (test code = 7892275836) 2-16 BUN (test code = 8722543842) 12 mg/dL 7-23 GLUCOSE (test code = 6266358790) 115 mg/dL 70-110 H CREATININE (test code = 3009246077) 0.43 mg/dL 0.5-1.04 L CALCIUM (test code = 3147081143) 9.9 mg/dL 8.6-10.6 eGFR Calculation (Non-) (test code = 6961812987) mL/min/1.73m2 eGFR Calculation () (test code = 8228568154) mL/min/1.73m2 THEODORA (test code = THEODORA) Association [...] imaging tests). Lab Interpretation (test code = 57571-9) Abnormal [facility] CenterCOVID-[facility] (ID NOW RAPID TESTING)2020-04-06 00:45:00* Test Item Value Reference Range Interpretation Comme nts SARS-CoV-2 Rapid ID NOW (test code = 23257-2) Not Detected Not Detected THEODORA (test code = THEODORA) ID NOW COVID-19 As say is an isothermal nucleic acid amplification test intended for the qualitative detection of nucleic acid from SARS-CoV-2 viral RNA in nasopharyngeal (ROLL OFF DRIVER) specimens. It is used under Emergency Use [...] clinically indicated. Lab Interpretation (test code = 89827-7) Normal [facility] CenterCT ABDOMEN PELVIS W [id number] 00:41:36No acute intra-abdominal or pelvic abnormality. Colonic diverticulosis. Marked descending and sigmoid colon circumferentialwall thickening results in significant luminal narrowing. These findingsremain similar to most recent comparison CT dated 03/03/2020. This may beseen with colitis. Stable scattered nodular densities through the peritoneal cavity. Indeterminate bilateral 1.4 cm adrenal nodules.Hepatosteatosis. Preliminary Report Dictated by Resident: Lamin Landrum MD., have reviewed this study and [...] of the left femur is partially visualized. [facility], Radiant Results Inft User - 04/05/2020 7:42 [...] reviewed this study and agree withthe above report.[facility] NpmomsBPWFJHVUAO6805-97-76 23:31:00* Test Item Value Reference Range Interpretation Comme nts APPEARANCE (test code = 3171747729) Clear Clear COLOR (test code = 2605277945) Yellow Yellow PH (test code = 5028081562) 4.8-8.0 SP GRAVITY (test code = 2643104733) 1.003-1.030 GLU U QUAL (test code = 0117457537) 50 mg/dL Normal A BLOOD (test code = 0341180675) Negative Negative KETONES (test code = 0331916651) 80 mg/dL Negative A PROTEIN (test code = 2887-8) Negative Negative UROBILIN (test code = 3289579563) Normal Normal BILIRUBIN (test code = 5176247432) Negative Negative NITRITE (test code = 3090579795) Negative Negative LEUK BIRDIE (test code = 6281472661) Negative Negative RBC/HPF (test code = 6898974904) See_Comment [Automated messa ge] The system which generated this result transmitted reference range: 0 - 3 HPF. The reference range was not used to interpret this result as normal/abnormal. WBC/HPF (test code = 6482772372) <1 See_Comment [Automated messa ge] The system which generated this result transmitted reference range: 0 - 5 HPF. The reference range was not used to interpret this result as normal/abnormal. BACTERIA (test code = 2121819463) Few Negative A MUCOUS (test code = 3063627600) Slight Negative LPF A SQ EPITH (test code = 4091040981) HPF HYAL CAST (test code = 7769334024) See_Comment [Automated messa ge] The system which generated this result transmitted reference range: <=2 LPF. The reference range was not used to interpret this result as normal/abnormal. Lab Interpretation (test code = 12740-0) Abnormal [facility] / [facility] - [facility] S[facility] [id number] 23:25:00* Test Item Value Reference Range Interpretation Comme nts BENZO U (test code = 9278233107) Negative Negative KOTA U (test code = 9075777842) Negative Negative AMPHET (test code = 4162187706) Negative Negative THC (test code = 9409425885) Presumptive Positive Negative A Confirmation of Presumptive Positive THC result requires physician order. METHADONE (test code = 3157321712) Negative Negative Meth U (test code = 1838153555) Negative Negative OPIATES (test code = 4508225125) Presumptive Positive Negative A Cocaine Metabolite (test code = 9942984191) Negative Negative PROPOXY (test code = 4117591541) Negative Negative Tric U (test code = 3461499236) Negative Negative PCP (test code = 0402688147) Negative Negative OXYCOD (test code = 7959309531) Negative Negative THEODORA (test code = THEODORA) [...] legal testing). Lab Interpretation (test code = 16045-0) Abnormal [facility] CenterETHANOL2020-05-24 23:06:00* Test Item Value Reference Range Interpretation Comme nts ALCOHOL (test code = 5174669915) <10 mg/dL THEODORA (test code = THEODORA) <10 Ieyyliuj66-764 Toxic>100 Depression of LAST IRONER>[address] [facility] CenterTROPONIN [id number] 23:02:00* Test Item Value Reference Range Interpretation Comme nts TROPONIN I (test code = 5752853852) <0.012 See_Comment [Automated message] The system which [...] biotin. ? Lab Interpretation (test code = 42250-2) Normal [facility]. METABOLIC PANEL (61559)2020-04-05 22:51:00* Test Item Value Reference Range Interpretation Comme nts NA (test code = 3969325808) 141 mmol/L 135-145 K (test code = 8266643482) 3.9 mmol/L 3.5-5 CL (test code = 6881325519) 109 mmol/L 98-108 H CO2 TOTAL (test code = 6121671808) 21 mmol/L 23-31 L AGAP (test code = 0940025665) 2-16 BUN (test code = 5569906830) 13 mg/dL 7-23 GLUCOSE (test code = 4681308299) 159 mg/dL 70-110 H CREATININE (test code = 9954062009) 0.47 mg/dL 0.5-1.04 L TOTAL BILI (test code = 2708890777) 0.9 mg/dL 0.1-1.1 CALCIUM (test code = 0724963204) 10.6 mg/dL 8.6-10.6 T PROTEIN (test code = 9285126077) 7.7 g/dL 6.3-8.2 ALBUMIN (test code = 4855811763) 4.4 g/dL 3.5-5 ALK PHOS (test code = 7111824516) 105 U/L 34-122 ALTv (test code = 1742-6) 13 U/L 5-35 AST(SGOT) (test code = 3787056794) 29 U/L 13-40 eGFR Calculation (Non-) (test code = 2859901159) mL/min/1.73m2 eGFR Calculation () (test code = 4700783474) mL/min/1.73m2 THEODORA (test code = THEODORA) Association [...] imaging tests). Lab Interpretation (test code = 71481-9) Abnormal [facility] CenterLIPASE2020-05-24 22:51:00* Test Item Value Reference Range Interpretation Comme nts LIPASE (test code = 5290099894) 34 U/L 0-220 Lab Interpretation (test cod e = 90434-5) Normal [facility] CenterMAGNESIUM2020-05-24 22:51:00* Test Item Value Reference Range Interpretation Comme nts MAGNESIUM (test code = 3694370666) 1.7 mg/dL 1.7-2.4 Lab Interpretation (test cod e = 60825-7) Normal [facility] CenterCBC WITH [id number] 22:37:00* Test Item Value Reference Range Interpretation [...] 32.9 g/dL 31.6-35.1 RDW-SD (test code = 48066-5) 47.7 fL 39-49.9 RDW-CV (test code = 788-0) 14.6 % 12-15.5 PLT (test code = 777-3) See_Comment [Automated message] The system which generated this result transmitted reference range: 166 - 358 10*3/?L. The reference range was not used to interpret this result as normal/abnormal. MPV (test code = 00720-0) 10.5 fL 9.5-12.9 NRBC/100 WBC (test code = 4152648916) See_Comment [Automated message] The system which generated this result transmitted reference range: 0.0 - 10.0 /100 WBCs. The reference range was not used to interpret this result as normal/abnormal. NRBC x10^3 (test code = 6607800688) <0.01 See_Comment [Automated message] The system which generated this result transmitted reference range: 10*3/?L. The reference range was not used to interpret this result as normal/abnormal. GRAN MAT (NEUT) % (test code = 770-8) 89.0 % IMM GRAN % (test code = 9288680650) 0.60 % LYMPH % (test code = 736-9) 7.3 % MONO % (test code = 5905-5) 2.7 % EOS % (test code = 713-8) 0.1 % BASO % (test code = 706-2) 0.3 % GRAN MAT x10^3(ANC) (test code = 0941703629) 10.74 10*3/uL 1.88-7.09 H IMM GRAN x10^3 (test code = 0170968372) 0.07 10*3/uL 0-0.06 H LYMPH x10^3 (test code = 731-0) 0.88 10*3/uL 1.32-3.29 L MONO x10^3 (test code = 742-7) 0.32 10*3/uL 0.33-0.92 L EOS x10^3 (test code = 711-2) <0.03 0.03-0.39 L BASO x10^3 (test code = 704-7) 0.04 10*3/uL 0.01-0.07 Lab Interpretation (test code = 29146-3) Abnormal [facility] [id number] 15:05:00* Test Item Value Reference Range Interpretation Comme nts Case Report (test code = 3611945668) Surgical Pathology ?Case: [id number] ? Authorizing Provider: ?Nohemi Magallon MD ?Collected: ? 03/04/2020 1004 ?Ordering Location: ? ? [facility] ? ? ?Received: ?03/04/2020 1548 ? [facility] ?Pathologist: ? Claudette Singh MD ? Specimen: ? ?STOMACH, antrum ? Final Diagnosis (test code = 9769702229) [id number] FuZzEwMzNcZnRuYmpcdWMx CFacbqQxJOsgk1OmA7BhWz AwMFxhbnNpXGRlZmxhbmcx RGSqHWI2nxNlTYOjVRulEJ ZpFYetTl5ckUKjhGclFkJx WTEkb0hflhEDebuebHi3lH nsY01bu1B2OlwcX6xoXZQy JMvsDPRuTVeayGNzYZU1NX GaSBE6VIbmluRmwcY1IKij uSDyFxP3BUy4a9efjOmtVI YnJVH0h0kxKPhntlYdGK5t bk7fcKd9u5kfniUgQIZmRX LtbWYSAZFqY0TvlVcePa7j kDf1jBidLlxbGED7Rvh1KN 1qbf61zfk8gKfaHNRdhytr OiJ5ERjvDKSsixyzZFc5OR dbGZGfaMZeQCKroAQcD7Ye ZFnvGC2kjvf7ZaJaPQ9ekg qiSVyvPOEyCQW1CcPdXEUw o8LffgpmKmLloz8xmq60YD J7l2KkrGmuJJL0XDX1HuIp Ep1vzVHpCRQtRM1oDxWnxP TyCORstx46nHniSLqdhgHn bR4fZuVlGZMyaRHeBVKjAX 8ttNKrOGOgfD0rtjrrRSOi YnJkcmhlYWRccGdicmRyZm 1tuBdfLCH1XZbqC2cjpU3d HfO4JVucL0ermE1sQLb3VF ofnIL6DXRjqJ9lHA0xzsuh f5zeVID9KCkgGIYhcgJ0pj XcWQOafLIqO9TibL02HqLu rYErD0DfdB8cIDmsBYTbsk z3CwQtPe8icAXjpSQ7MKgy YmtwYWdlXHBnbmNvbnRccG duZGVjXHBsYWluXHBsYWlu XGYwXGZzMjBccWxccGxhaW 5cZjBcZnMyMFxwbGFpblxm MFxmczIwXHBhclxwYXJkXH BsYWluXGYwXGZzMjBccGxh wW0pWnSsOaPuDPELPhOWRC 7CWBXEPDQHHcSLQA9jBCZR A1UQVWgnyTYrZZXnOQ6xE2 FTVFJJQyBBTlRSQUwgTVVD Z3QXPBuUXAouAlVES5GLCq MiQ9SZPWDLETHTZLlzsSTx GMGsUI0xAl7mQFKARUERNJ jbR5XfTL2YQJQIMD9LRBCY TJCGRXgPB3oBIFqRDJ3NKJ ZJRURccGFyXHFsXHBsYWlu VCUbPFNzYwSagNrkvP3dGa KuLeEqZZYaKXJwNU5ZDLfi LYOBDN5XET0BKMyYLF2NN2 FOSVNNUyBJREVOVElGSUVE CXRntunqCEY7x6szmOLrOZ NurTIvHfGaSDSjMVOdt7vw ZGVmbGFuZzEwMzNcZnRuYm aekNRhUPJuOkObi2ifm075 zRZai7geUABsFdD1yHZxIS UufYyqaly4iCkzAkWkMXPb t6fdneTtLnBiDQSkGVCzXH BitQZtN119ISIjHFwrw4dp g1BbITFucGIxr4S3UCYFSS fqMqCjH007n9plq3xpshYn cQX4CILoRCK2BLylpqNxrs Q8PFmhtYKxVbP6FKvwdiFt NUrgmkDnkaKzKwu1FHShX2 08XZO0zAmuk9wsQVC3EGZe KDPpXttcZl7uzJAfS296GH LiOVLRZGBjhWo1CIDbzxXi ubDrgGBVo096E162i5huDH FdzbKswBrPwvdla5hwA055 XHBhcGVydzEyMjQwXHBhcG RfmRV9SOWzDP3zjcseKVwa BLrrSTFnhtU2YHGblSPkH0 OyKCXiON5qjxekJVU6JKvm ZVEmDZU0FuXdMZYkn7Pstp p5ZxFkcq6ygb47DHK4e0Nf gCeyCQL2MLI3ShVaHi0piT VyGLWcZM5dFmNhwHWdKBYh wd51xTxcACykmyQfuD2vDd LaZDYkkHHdJZPdUP2tlFQc DFPqlN8rrdqjVTRqIsHxji orIAZtjBtgcaMrEl8phBhp SPF1ITmgJ6gxmY8cXhJ5TJ zcB0ogjN4mLZp7LSzjaUV6 CKFepF0pSM2wtaxkp8qtZC icDOhcDOWigdY2vxZ8SAZe uPXoP3BfyY9yYYQwVU4blz cux0gzHNH8FCsuHMXuPHT6 LzOsEVGqs9Ywzvp6WhJgq4 DwtEAtCWibT10ar232FIYh qgRsI4kvlFYlyaabkZTcrw vkHLyokbA1QDLpSJPeTLnn XGYxXGZzMjBcbGFuZzEwMz NcaGljaFxmMVxkYmNoXGYx RImvW5qaZcPiZ6ZaSXCbWm OcsCVbCLeyaLE3WWQsSJLe c61hsPz9FHVtnprri9SeAB HtzMAddHZqpH9fcbJpw0ey RODwKEJlPETtC0AgMKW5nB CzVMQjnKKfvNO7VS0lumDz OO9kGYKrYrzcdxVoiDCduv AqNKVcKEpbk3xzMV5hXOPi dBrumW4myJO0IMHpp7zqaP FdzLQmm9ssu7EnleGvGGph SFNtQBdzDZMbMHDsGO1pBI HphONaznSgc3W1ZczxlCBf edjkLmwkiiQ2QVsxpgiqEH UkDOfoG4swOkCeSDPhbUrh Giyrw4HxHYMpPBIrQfjcuM FyfX0= Clinical Information (test code = 9615790645) Abnormal CT Gross Description (test code = 4131445196) f2gwiSYtJPJnnKPnKxYkPO UeZYCne9qjVUOrqERgRtXi MzNcZnRuYmpcdWMxXGRlZm Knq7pqm591dFZcr8ivZYMm GvM1zDRfQGPzqDZqC180AN PvEKlxn2xah3ZtQGEaeYXg g2M0CZVKfvucnAo4i7udNn AjCuO5eBBbESgcE8zjahXy bNHmWZYfS5EfkxHYKVGxMp a4cUojM62rv3T3RbevC1vh ZWQwXGdyZWVuMFxibHVlMC L6YKAfREX4IYmaqaJsjxW7 MXdzeBIdVpE9XFk9c2xdbQ cfLAIiFEX7i5ubFDgcqnEk SU2zob7qtZu8r0zfirFzPF FtYPJtsXOEPPJsC9RozDyk Ch8gaQa4wEtkLqonWCX9Ry v2IH5cpz46lxl3pIqdHXIa thcyUyR6ZXflAWZkjsdrQV i2YRnySPRxdWLdDPMldLJv G4GqDUndKR5vzfy1ZuYfJN 0guolgSMeoEGQeBSD0MxZz EYDlu8CfsshzDqNitw3lfb 81EXU1i1HiyKwwPGC5SDD4 TbPrMu3xjXMwPWDeJK0uHq ViiXMsYBQkgw94hNzeESjb hwSsfM9vIjUdOCRwtKQcDY NcGN9wxLIlHWXmvK6tdghq XHBnYnJkcmhlYWRccGdicm MnRw8isBubCKK6NSdgB7cz iR2eKwU4WFtqD3mmqX1yKM j1QJbrdXF5CYRpbF4tSV3m nydyz1miWEZ9NTukRVMzpx W7mhOkRGUnsXDfL5BlcO43 KbMitTBxY6ClfU4qFYteJF Kcuyz6FyPjMn5rmULlcBQ4 MFxzYmtwYWdlXHBnbmNvbn RccGduZGVjXHBsYWluXHBs PTnoMDIhTBHaWvApe6KlHW Dbx4ocBnDio7qbsAy5NWln bFxwbGFpblxmMFxmczIwXH EwOFkzMSPlPNVqGoJnH5Dj O4fvIS7lPYVvdvSvVAPqxC HfMPQiweQux4BuAMsiinYp GKUgfPbwQDY3kJBcOYDyUC CpMZArXI13JRRpHZcdWHJv VTLmRnBecEfrDUfrTMf1Os xwbGFpblxmMVxmczIwIHMg bmFtZSwgVUggbnVtYmVyIC SolZ4fCDNwIIRkwJY7jThr tHDbtkosJCposdPvSOK2Hh RqHCihQTWbaYcmgD7rCvNm HoMpINQyHR4rXPJsrfXfk4 ViBT5lLZMyrXWaBGPldfmt oONjURg8bFAdZSLqVoKgmN sgj8ZsEUKuXApkFY57fyNk ZS97NLmqTG80KVyfTD9nYH RqCYsxEMZwA3GrH1M6CApj LVHpYDVhlALaoW1ikdTlcg KuhSh3FDIqSYA1dLGhqQwx GQHzAqdzfGR9KNOrYdPbei OjNX32yJTdqSots5NorKm5 cUGbMOdcFLEnsA9rpD8nMO EuXHBhclxwYXJkXHBsYWlu CBEsQFAdNyMbtBnhpT1eYi UoQdMgEHKRhTxxSNUMA9lf aGFuZXksIFBBXHBsYWluXG YxXGZzMjBcbGFuZzEwMzNc aGljaFxmMVxkYmNoXGYxXG bjX9ywRpLpM5KrJPMtLrBn q3SiSQIozKFpJQWjVPmzDZ YyXGZzMTZcbGFuZzEwMzNc aGljaFxmMlxkYmNoXGYyXG ugS2cfBqVjG3XhTBHxWCQp cGFyXHBhclxxbFxwbGFpbl xmMFxmczIwXHBsYWluXGYx XGZzMjBccGFyfQ== Embedded Images (test code = 4212007258) [facility] [id number] 15:01:00* Test Item Value Reference Range Interpretation Comme nts CRP (test code = 6909046322) 1.1 mg/dL <0.8 H Lab Interpretation (test cod e = 25874-2) Abnormal [facility] Center[facility]TIGEN-GI (CA 19-9)2020-03-06 12:43:00 * Test Item Value Reference Range Interpretation Comme nts CA 19-9 (test code = 3369347353) 7.7 U/mL 0-35 THEODORA (test code = THEODORA) Biotin has been reported to cause a negative bias, interpret results relative to patient's use of biotin. Lab Interpretation (test code = 22623-9) Normal [facility] CenterSEDIMENTATION [id number] 11:52:00* Test Item Value Reference Range Interpretation Comme nts ESR (test code = 8830876954) See_Comment [Automated messa ge] The system which generated this result transmitted reference range: 0 - 20 mm/HR. The reference range was not used to interpret this result as normal/abnormal. Lab Interpretation (test code = 66617-0) Normal [facility] CenterCARCINOEMBRYONIC [id number] 21:16:00* Test Item Value Reference Range Interpretation Comme nts CEA (test code = 8966186023) 1.6 ng/mL 0-10 THEODORA (test code = THEODORA) CEA Ranges: Non-Smokers ?0-5.0 ng/mLSmokers ? ? ?0-10.0 ng/mL Lab Interpretation (test code = 86574-7) Normal [facility]. METABOLIC PANEL (32643)2020-03-05 11:36:00* Test Item Value Reference Range Interpretation Comme nts NA (test code = 1467454242) 140 mmol/L 135-145 K (test code = 6148797508) 3.7 mmol/L 3.5-5 CL (test code = 6299434018) 109 mmol/L 98-108 H CO2 TOTAL (test code = 7485018051) 25 mmol/L 23-31 AGAP (test code = 8866275957) 2-16 BUN (test code = 1568915665) 4 mg/dL 7-23 L GLUCOSE (test code = 7562859030) 79 mg/dL 70-110 CREATININE (test code = 8012511033) 0.39 mg/dL 0.5-1.04 L TOTAL BILI (test code = 2512121632) 0.5 mg/dL 0.1-1.1 CALCIUM (test code = 4567317103) 9.3 mg/dL 8.6-10.6 T PROTEIN (test code = 1212690453) 5.9 g/dL 6.3-8.2 L ALBUMIN (test code = 3811439590) 3.1 g/dL 3.5-5 L ALK PHOS (test code = 4823017039) 50 U/L 34-122 ALTv (test code = 1742-6) 15 U/L 5-35 AST(SGOT) (test code = 0761193357) 27 U/L 13-40 eGFR Calculation (Non-) (test code = 4752410410) mL/min/1.73m2 eGFR Calculation () (test code = 4935553610) mL/min/1.73m2 THEODORA (test code = THEODORA) Association [...] imaging tests). Lab Interpretation (test code = 03397-5) Abnormal [facility] CenterMAGNESIUM2020-04-23 11:36:00* Test Item Value Reference Range Interpretation Comme nts MAGNESIUM (test code = 0261831671) 2.0 mg/dL 1.7-2.4 Lab Interpretation (test cod e = 37290-7) Normal [facility] CenterPHOSPHORUS2020-04-23 11:36:00* Test Item Value Reference Range Interpretation Comme nts PHOSPHORUS (test code = 7231648198) 3.3 mg/dL 2.5-5 Lab Interpretation (test cod e = 04899-8) Normal [facility] CenterPROTHROMBIN TIME / [id number] 10:59:00* Test Item Value Reference Range Interpretation Comme nts PROTIME PATIENT (test code = 5964-2) See_Comment [Automated [employer]] The system which generated this result transmitted reference range: 12.0 - 14.7 Seconds. The reference range was not used to interpret this result as normal/abnormal. INR (test code = 6301-6) Normal INR <1.1; Warfarin Therapeutic range 2.0 to 3.0 or 2.5 to 3.5, depending upon the indications. Lab Interpretation (test code = 26392-0) Normal [facility] WITH IHGIGLZPPDIF6415-06-41 10:55:00* Test Item Value Reference Range Interpretation [...] 32.4 g/dL 31.6-35.1 RDW-SD (test code = 18344-2) 48.1 fL 39-49.9 RDW-CV (test code = 788-0) 13.9 % 12-15.5 PLT (test code = 777-3) See_Comment [Automated messa ge] The system which generated this result transmitted reference range: 166 - 358 10*3/?L. The reference range was not used to interpret this result as normal/abnormal. MPV (test code = 50846-0) 11.1 fL 9.5-12.9 NRBC/100 WBC (test code = 0344345264) See_Comment [Automated [employer] ssage] The system which generated this result transmitted reference range: 0.0 - 10.0 /100 WBCs. The reference range was not used to interpret this result as normal/abnormal. NRBC x10^3 (test code = 0427166289) <0.01 See_Comment [Automated messa ge] The system which generated this result transmitted reference range: 10*3/?L. The reference range was not used to interpret this result as normal/abnormal. GRAN MAT (NEUT) % (test code = 770-8) 59.6 % IMM GRAN % (test code = 8300419076) 0.40 % LYMPH % (test code = 736-9) 26.5 % MONO % (test code = 5905-5) 9.7 % EOS % (test code = 713-8) 3.0 % BASO % (test code = 706-2) 0.8 % GRAN MAT x10^3(ANC) (test code = 7584179037) 4.36 10*3/uL 1.88-7.09 IMM GRAN x10^3 (test code = 4984432586) 0.03 10*3/uL 0-0.06 LYMPH x10^3 (test code = 731-0) 1.94 10*3/uL 1.32-3.29 MONO x10^3 (test code = 742-7) 0.71 10*3/uL 0.33-0.92 EOS x10^3 (test code = 711-2) 0.22 10*3/uL 0.03-0.39 BASO x10^3 (test code = 704-7) 0.06 10*3/uL 0.01-0.07 Lab Interpretation (test code = 04363-1) Abnormal [facility] PELVIS COMPLETE WITH [id number] 02:21:23Right ovarian cyst measuring up to 2.4 [...] this study and agree with theabove report. [facility] CenterMAGN[facility]IUM2020-04-22 21:17:00* Test Item Value Reference Range Interpretation Comme nts MAGNESIUM (test code = 4928441457) 1.5 mg/dL 1.7-2.4 L Lab Interpretation (test cod e = 16201-2) Abnormal [facility] CenterPHOSPH[facility]US2020-04-22 21:17:00* Test Item Value Reference Range Interpretation Comme nts PHOSPHORUS (test code = 5130803701) 3.0 mg/dL 2.5-5 Slight hemolysis Lab Interpretation (test code = 49339-6) Normal [facility] (NA, K, CL, CO2, GLUCOSE, BUN, CREATININE, CA)2020-03-04 11:17:00* Test Item Value Reference Range Interpretation Comme nts NA (test code = 7855838011) 139 mmol/L 135-145 K (test code = 9510863460) 3.5 mmol/L 3.5-5 CL (test code = 0889905957) 110 mmol/L 98-108 H CO2 TOTAL (test code = 4870589396) 24 mmol/L 23-31 AGAP (test code = 0230971784) 2-16 BUN (test code = 5308819157) 4 mg/dL 7-23 L GLUCOSE (test code = 8049440832) 100 mg/dL 70-110 CREATININE (test code = 7154782988) 0.42 mg/dL 0.5-1.04 L CALCIUM (test code = 9601722299) 9.7 mg/dL 8.6-10.6 eGFR Calculation (Non-) (test code = 7832534127) mL/min/1.73m2 eGFR Calculation () (test code = 9245923689) mL/min/1.73m2 THEODORA (test code = THEODORA) Association [...] imaging tests). Lab Interpretation (test code = 65039-9) Abnormal [facility] WITH VOWQIHMTBMAM8597-07-97 11:00:00* Test Item Value Reference Range Interpretation Comme nts WBC (test code = 6690-2) See_Comment H [Automated [employer]] The system which generated this result transmitted reference range: 4.30 - 11.10 10*3/?L. The reference range was not used to interpret this result as normal/abnormal. RBC (test code = 789-8) See_Comment L [Automated [employer]] The system which generated this result transmitted [...] 33.1 g/dL 31.6-35.1 RDW-SD (test code = 77662-9) 49.3 fL 39-49.9 RDW-CV (test code = 788-0) 14.2 % 12-15.5 PLT (test code = 777-3) See_Comment [Automated messa ge] The system which generated this result transmitted reference range: 166 - 358 10*3/?L. The reference range was not used to interpret this result as normal/abnormal. MPV (test code = 24389-1) 11.9 fL 9.5-12.9 NRBC/100 WBC (test code = 4585928189) See_Comment [Automated [employer] ssage] The system which generated this result transmitted reference range: 0.0 - 10.0 /100 WBCs. The reference range was not used to interpret this result as normal/abnormal. NRBC x10^3 (test code = 9101014927) <0.01 See_Comment [Automated messa ge] The system which generated this result transmitted reference range: 10*3/?L. The reference range was not used to interpret this result as normal/abnormal. GRAN MAT (NEUT) % (test code = 770-8) 74.9 % IMM GRAN % (test code = 6352826186) 0.60 % LYMPH % (test code = 736-9) 15.4 % MONO % (test code = 5905-5) 8.5 % EOS % (test code = 713-8) 0.3 % BASO % (test code = 706-2) 0.3 % GRAN MAT x10^3(ANC) (test code = 6730131759) 8.44 10*3/uL 1.88-7.09 H IMM GRAN x10^3 (test code = 2180386467) 0.07 10*3/uL 0-0.06 H LYMPH x10^3 (test code = 731-0) 1.74 10*3/uL 1.32-3.29 MONO x10^3 (test code = 742-7) 0.96 10*3/uL 0.33-0.92 H EOS x10^3 (test code = 711-2) 0.03 10*3/uL 0.03-0.39 BASO x10^3 (test code = 704-7) 0.03 10*3/uL 0.01-0.07 Lab Interpretation (test code = 09354-6) Abnormal [facility] CenterCT ABDOMEN PELVIS W IDVUEYOM6100-16-28 04:10:34Focal circumferential thickening of the stomach antrum/pylorus [...] the proximal left femur is partially visualized. [facility], Radiant Results Inft User - 03/03/2020 11:11 [...] reviewed this study and agree with theabove report.[facility] CenterCB WITH DIFFERENTIAL 2020-03-03 10:27:00* Test Item Value [...] 33.6 g/dL 31.6-35.1 RDW-SD (test code = 56959-0) 48.2 fL 39-49.9 RDW-CV (test code = 788-0) 14.3 % 12-15.5 PLT (test code = 777-3) See_Comment [Automated message] The system which generated this result transmitted reference range: 166 - 358 10*3/?L. The reference range was not used to interpret this result as normal/abnormal. MPV (test code = 95635-9) 11.9 fL 9.5-12.9 NRBC/100 WBC (test code = 8516058722) See_Comment [Automated message] The system which generated this result transmitted reference range: 0.0 - 10.0 /100 WBCs. The reference range was not used to interpret this result as normal/abnormal. NRBC x10^3 (test code = 9995817674) <0.01 See_Comment [Automated message] The system which generated this result transmitted reference range: 10*3/?L. The reference range was not used to interpret this result as normal/abnormal. GRAN MAT (NEUT) % (test code = 770-8) 88.6 % IMM GRAN % (test code = 4761002672) 0.80 % LYMPH % (test code = 736-9) 5.1 % MONO % (test code = 5905-5) 5.3 % EOS % (test code = 713-8) 0.0 % BASO % (test code = 706-2) 0.2 % GRAN MAT x10^3(ANC) (test code = 4331426435) 17.00 10*3/uL 1.88-7.09 H IMM GRAN x10^3 (test code = 4766959548) 0.16 10*3/uL 0-0.06 H LYMPH x10^3 (test code = 731-0) 0.97 10*3/uL 1.32-3.29 L MONO x10^3 (test code = 742-7) 1.02 10*3/uL 0.33-0.92 H EOS x10^3 (test code = 711-2) <0.03 0.03-0.39 L BASO x10^3 (test code = 704-7) 0.03 10*3/uL 0.01-0.07 Lab Interpretation (test code = 73173-6) Abnormal [facility] Metabolic Panel (NA, K, CL, CO2, GLUCOSE, BUN, CREATININE, CA)2020-03-03 09:50:00* Test Item Value Reference Range Interpretation Comme nts NA (test code = 3034247882) 134 mmol/L 135-145 L K (test code = 3910995329) 3.9 mmol/L 3.5-5 CL (test code = 8922237403) 103 mmol/L 98-108 CO2 TOTAL (test code = 8131291237) 22 mmol/L 23-31 L AGAP (test code = 9949643514) 2-16 BUN (test code = 9936539883) 5 mg/dL 7-23 L GLUCOSE (test code = 0189943105) 139 mg/dL 70-110 H CREATININE (test code = 9515571080) 0.37 mg/dL 0.5-1.04 L CALCIUM (test code = 3775000768) 9.5 mg/dL 8.6-10.6 eGFR Calculation (Non-) (test code = 1450165534) mL/min/1.73m2 eGFR Calculation () (test code = 1630657703) mL/min/1.73m2 THEODORA (test code = THEODORA) Association [...] imaging tests). Lab Interpretation (test code = 31917-2) Abnormal [facility] CenterXR ABDOMEN ACUTE [id number] 17:54:41No acute intrathoracic abnormality. The bowel gas [...] reviewed this study and agree with the abovereport.[facility] CenterUrinalysis2020-04-20 16:47:00 * Test Item Value Reference Range Interpretation Comme nts APPEARANCE (test code = 5304511447) Clear Clear COLOR (test code = 5676937555) Straw Yellow A PH (test code = 8971713795) 4.8-8.0 SP GRAVITY (test code = 6089035438) 1.003-1.030 GLU U QUAL (test code = 1492207649) 50 mg/dL Normal A BLOOD (test code = 6659668628) Negative Negative KETONES (test code = 8564347345) 80 mg/dL Negative A PROTEIN (test code = 2887-8) Negative Negative UROBILIN (test code = 0507759223) Normal Normal BILIRUBIN (test code = 9496514407) Negative Negative NITRITE (test code = 2537322814) Negative Negative LEUK BIRDIE (test code = 5586630239) Negative Negative RBC/HPF (test code = 9623994356) See_Comment [Automated [employer] ge] The system which generated this result transmitted reference range: 0 - 3 HPF. The reference range was not used to interpret this result as normal/abnormal. WBC/HPF (test code = 8456076454) See_Comment [Automated [employer] ge] The system which generated this result transmitted reference range: 0 - 5 HPF. The reference range was not used to interpret this result as normal/abnormal. BACTERIA (test code = 6824297612) Negative Negative MUCOUS (test code = 4689290136) Slight Negative LPF A SQ EPITH (test code = 4135521878) HPF Lab Interpretation (test code = 91985-4) [facility]normal [facility] [id number] 16:45:00* Test Item Value Reference Range Interpretation Comme nts BENZO U (test code = 6861220453) Negative Negative KOTA U (test code = 6931684640) Negative Negative AMPHET (test code = 4997019017) Negative Negative THC (test code = 7709144255) Presumptive Positive Negative A Confirmation of Presumptive Positive THC result requires physician order. METHADONE (test code = 4187378869) Negative Negative Meth U (test code = 8989627376) Negative Negative OPIATES (test code = 4315018446) Presumptive Positive Negative A Cocaine Metabolite (test code = 5548700328) Negative Negative PROPOXY (test code = 5633578464) Negative Negative Tric U (test code = 0713660618) Negative Negative PCP (test code = 4108260154) Negative Negative OXYCOD (test code = 6620729842) Negative Negative THEODORA (test code = THEODORA) [...] legal testing). Lab Interpretation (test code = 21109-2) Abnormal [facility], [id number] 16:08:00* Test Item Value Reference Range Interpretation Comme nts PREG SERUM (test code = 6451909835) Negative THEODORA (test code = THEODORA) Less than 10 IU/L. ?If low titer or ectopic is suspected, resubmit specimen in 48-[address] [facility]LIPASE2020-04-[facility] 15:45:00* Test Item Value Reference Range Interpretation Comme nts LIPASE (test code = 3598526207) 67 U/L 0-220 Lab Interpretation (test cod e = 87528-5) Normal [facility] CenterETHANOL2020-[facility]-20 15:38:00* Test Item Value Reference Range Interpretation Comme nts ALCOHOL (test code = 3355362908) <10 mg/dL THEODORA (test code = THEODORA) <10 [id number] Toxic>100 Depression of LAST IRONER>[address] [facility] CenterTroponin [id number] 15:01:00* Test Item Value Reference Range Interpretation Comme [facility] TROPONIN I (test code = 3420842813) <0.012 See_Comment [Automated message] The system which [...] biotin. ? Lab Interpretation (test code = 96930-1) Normal [facility] CenterN-TERMINAL [id number] 14:58:00* Test Item Value Reference Range Interpretation Comme [facility] NT-proBNP (test code = 5845111935) 2310 pg/mL See_Comment H [Automated message] The system which generated this result transmitted reference range: <=125. The reference range was not used to interpret this result as normal/abnormal. THEODORA (test code = THEODORA) Biotin has been reported to cause a negative bias, interpret results relative to patient's use of biotin. Lab Interpretation (test code = 33854-4) Abnormal [facility] CenterCORONAVIRUS COVID-19 [id number] 14:58:00* Test Item Value Reference Range Interpretation Comme nts SARS-CoV-2 (test code = 45162-5) Not Detected Not Detected THEODORA (test code = THEODORA) ID NOW COVID-19 As say is an isothermal nucleic acid amplification test intended for the qualitative detection of nucleic acid from SARS-CoV-2 viral RNA in nasopharyngeal (ROLL OFF DRIVER) specimens. It is used under Emergency Use [...] clinically indicated. Lab Interpretation (test code = 05159-9) Normal [facility] CenterProthrombin Time (PT) / [id number] 14:52:00 * Test Item Value Reference Range Interpretation Comme [facility] PROTIME PATIENT (test code = 5964-2) See_Comment [Automated messa ge] The system which generated this result transmitted reference range: 12.0 - 14.7 Seconds. The reference range was not used to interpret this result as normal/abnormal. INR (test code = 6301-6) Normal INR <1.1; Warfarin Therapeutic range 2.0 to 3.0 or 2.5 to 3.5, depending upon the indications. Lab Interpretation (test code = 27307-6) Normal [facility] CenteraPTT2020-04-20 14:51:00* Test Item Value Reference Range Interpretation Comme [facility] APTT Patient (test code = 3173-2) See_Comment [Automated message] The system which generated this result transmitted reference range: 23 - 38 Seconds. The reference range was not used to interpret this result as normal/abnormal. THEODORA (test code = THEODORA) The [facility] patient population mean normal value for aPTT is 30 seconds. Lab Interpretation (test code = 17103-1) Normal [facility] CenterBasi Metabolic Panel (NA, K, CL, CO2, GLUCOSE, BUN, CREATININE, CA)2020-03-02 14:49:00* Test Item Value Reference Range Interpretation Comme [facility] NA (test code = 1546661216) 139 mmol/L 135-145 K (test code = 2285032623) 3.8 mmol/L 3.5-5 CL (test code = 7524739684) 108 mmol/L 98-108 CO2 TOTAL (test code = 5791438579) 21 mmol/L 23-31 L AGAP (test code = 5479649813) 2-16 BUN (test code = 0851324526) 8 mg/dL 7-23 GLUCOSE (test code = 4798282538) 133 mg/dL 70-110 H CREATININE (test code = 7303841821) 0.55 mg/dL 0.5-1.04 CALCIUM (test code = 7823450681) 10.7 mg/dL 8.6-10.6 H eGFR Calculation (Non-) (test code = 0441496452) mL/min/1.73m2 eGFR Calculation () (test code = 0594191239) mL/min/1.73m2 THEODORA (test code = THEODORA) Association [...] imaging tests). Lab Interpretation (test code = 65188-4) Abnormal [facility] CenterHepatic Function Panel (ALB, T.PRO, BILI T, BU/BC, ALT, AST, ALK PHOS)2020-03-02 14:49:00* Test Item Value Reference Range Interpretation Comme nts TOTAL BILI (test code = 5024019484) 0.5 mg/dL 0.1-1.1 BILI UNCON (test code = 8405738823) 0.6 mg/dL 0.1-1.1 BILI CONJ (test code = 0257597743) 0.0 mg/dL 0-0.3 T PROTEIN (test code = 3901048388) 7.9 g/dL 6.3-8.2 ALBUMIN (test code = 8130599013) 4.6 g/dL 3.5-5 ALK PHOS (test code = 2248748289) 99 U/L 34-122 ALTv (test code = 1742-6) 17 U/L 5-35 AST(SGOT) (test code = 5212889582) 29 U/L 13-40 Lab Interpretation (test cod e = 85914-5) Normal [facility] [id number] 14:44:00* Test Item Value Reference Range Interpretation Comme nts WBC (test code = 6690-2) See_Comment [Automated SnappCloud] The system which generated this result transmitted reference range: 4.30 - 11.10 10*3/?L. The reference range was not used to interpret this result as normal/abnormal. RBC (test code = 789-8) See_Comment [Automated SnappCloud] The system which generated this result transmitted [...] 32.3 g/dL 31.6-35.1 RDW-SD (test code = 30257-3) 48.9 fL 39-49.9 RDW-CV (test code = 788-0) 14.1 % 12-15.5 PLT (test code = 777-3) See_Comment [Automated Wegoa ge] The system which generated this result transmitted reference range: 166 - 358 10*3/?L. The reference range was not used to interpret this result as normal/abnormal. MPV (test code = 86233-1) 10.8 fL 9.5-12.9 NRBC/100 WBC (test code = 7584694830) See_Comment [Automated Tokopedia ssage] The system which generated this result transmitted reference range: 0.0 - 10.0 /100 WBCs. The reference range was not used to interpret this result as normal/abnormal. NRBC x10^3 (test code = 6039511458) <0.01 See_Comment [Automated Wegoa ge] The system which generated this result transmitted reference range: 10*3/?L. The reference range was not used to interpret this result as normal/abnormal. GRAN MAT (NEUT) % (test code = 770-8) 82.3 % IMM GRAN % (test code = 4261414507) 0.60 % LYMPH % (test code = 736-9) 11.1 % MONO % (test code = 5905-5) 4.9 % EOS % (test code = 713-8) 0.7 % BASO % (test code = 706-2) 0.4 % GRAN MAT x10^3(ANC) (test code = 7692241645) 8.66 10*3/uL 1.88-7.09 H IMM GRAN x10^3 (test code = 2111699792) 0.06 10*3/uL 0-0.06 LYMPH x10^3 (test code = 731-0) 1.17 10*3/uL 1.32-3.29 L MONO x10^3 (test code = 742-7) 0.52 10*3/uL 0.33-0.92 EOS x10^3 (test code = 711-2) 0.07 10*3/uL 0.03-0.39 BASO x10^3 (test code = 704-7) 0.04 10*3/uL 0.01-0.07 Lab Interpretation (test code = 79161-5) Abnormal [facility] WITH [id number] 17:56:00* Test Item Value Reference Range Interpretation [...] 32.4 g/dL 31.6-35.1 RDW-SD (test code = 64586-9) 63.9 fL 39-49.9 H RDW-CV (test code = 788-0) 17.8 % 12-15.5 H PLT (test code = 777-3) See_Comment [Automated messa ge] The system which generated this result transmitted reference range: 166 - 358 10*3/?L. The reference range was not used to interpret this result as normal/abnormal. MPV (test code = 39508-6) 10.6 fL 9.5-12.9 NRBC/100 WBC (test code = 7458179811) See_Comment [Automated me ssage] The system which generated this result transmitted reference range: 0.0 - 10.0 /100 WBCs. The reference range was not used to interpret this result as normal/abnormal. NRBC x10^3 (test code = 1981823495) <0.01 See_Comment [Automated messa ge] The system which generated this result transmitted reference range: 10*3/?L. The reference range was not used to interpret this result as normal/abnormal. GRAN MAT (NEUT) % (test code = 770-8) 76.2 % IMM GRAN % (test code = 3559937246) 0.20 % LYMPH % (test code = 736-9) 13.7 % MONO % (test code = 5905-5) 5.8 % EOS % (test code = 713-8) 3.1 % BASO % (test code = 706-2) 1.0 % GRAN MAT x10^3(ANC) (test code = 4473493889) 7.17 10*3/uL 1.88-7.09 H IMM GRAN x10^3 (test code = 5609336691) <0.03 0-0.06 LYMPH x10^3 (test code = 731-0) 1.29 10*3/uL 1.32-3.29 L MONO x10^3 (test code = 742-7) 0.55 10*3/uL 0.33-0.92 EOS x10^3 (test code = 711-2) 0.29 10*3/uL 0.03-0.39 BASO x10^3 (test code = 704-7) 0.09 10*3/uL 0.01-0.07 H Lab Interpretation (test code = 71842-2) Abnormal [facility] (A1C)2020-01-01 17:52:00* Test Item Value Reference Range Interpretation Comme nts HGB A1C (test code = 4548-4) 5.0 % 4-6 THEODORA (test code = THEODORA) %A1C (NGSP) Interpretation (ADA)4.8-5.6 ? ? Normal or (Non-Diabetic Range)5.7-6.4 ? ? Increased Risk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 11/03/2023 8.96 NA (mmol/L) Date Value 11/03/2023 136 No results found for: "PT" RBC (10*6/?L) Date Value 11/03/2023 4.18 K (mmol/L) Date Value 11/03/2023 2.6 (LL) INR (no units) Date Value 03/07/2021 1.0 PLT (10*3/?L) Date Value 11/03/2023 243 CALCIUM (mg/dL) Date Value 11/03/2023 9.0 HGB (g/dL) Date Value 11/03/2023 12.1 CL (mmol/L) Date Value 11/03/2023 101 aPTT HCT (%) Date Value 11/03/2023 37.3 BUN (mg/dL) Date Value 11/03/2023 20 APTT Patient (Seconds) Date Value 03/07/2021 25 CREATININE (mg/dL) Date Value 11/03/2023 0.64 IMAGING - reviewed, pertinent results as below: No results found for this visit on 11/03/23. ASSESSMENT: 1. Acute alcoholic pancreatitis 2. Intractable nausea and vomiting 3. Alcohol use 4. History of hypertension 5. History of depression 6. History of anxiety disorder PLAN: 1. Patient with acute alcoholic pancreatitis; will start [...] on a low-dose Librium and will taper this. 2. Patient with history of hypertension; strict blood pressure control 3. History of depression; continue with antidepressant 4. History of anxiety disorder; continue with anxiolytics 5. GI DVT prophylaxis DVT prophylaxis: enoxaparin Stress ulcer prophylaxis: pantoprazole Code status: FULL Advanced Care Planning (Z71.89) Above assessment and plan discussed at length with patient, patient expressed full understanding. Questions and concerned addressed. Surrogate decision maker: NO Level of care expected after discharge: HOME Time spent: 3 minutes discussing the advanced care plan Smoking Cessation: (Z71.6) Tobacco user?: NO Patient will require inpatient stay of 2 midnights or more given high risk of morbidity and mortality. [place] BILINGUAL SPEECH THERAPIST was verified during stay Rubia Saleem MD [facility] - Health Notes Date/Time Note Provider Source 2024-10-09 13:52:17 Pt given printed and verbal discharge instructions regarding chest pain, diverticulitis, encouraged hydration, Prescriptions provided Discussed ibuprofen and to take with food to avoid GI distress. Discussed antibiotic therapy and to take until all completed unless adverse reaction occurs - if occurs, discontinue medication and follow up with pcp/seek medical attention Pt verbalized understanding of instructions, pt awake alert oriented, resp reg unlabored, skin w/d, color appropriate for race, moves all ext well,pt encouraged to follow up with pcp. Advised to seek medical attention for new/prolonged/worsening of symptoms. No adverse reaction to meds given in ER noted upon discharge PIV d'cd, dressing to site, catheter in tact. Awake, alert oriented, resp reg unlabored, skin w/d, pt leaving amb with steady gait, in no apparent distress, 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 Danielle Juarez RN [facility] 2024-10-09 10:22:39 Patient reports chest pain and dizziness for over 2 weeks. States she was sent here by PCP for HTN and she was here 2 weeks ago for the same thing. States they added losartan since last ER visit. 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 Denies fever, cough, n/v. History provided by: Patient Past Medical History/Immunizations: Past Medical History: Diagnosis Date Alcoholism Anxiety Depression HTN (hypertension) Pancreatitis Tetanus received in last 5 years: Unknown Childhood immunizations: Up-to-date Allergies: Allergies Allergen Reactions Clindamycin Anaphylaxis Rocephin [Ceftriaxone Sodium] Anaphylaxis Past Social History: Tobacco Use Former; 0.5 packs/day; Smoked an average of 0.5 packs/day for 20.0 years; Types: Cigarettes Smokeless Tobacco: Never used smokeless tobacco. Vaping Use Never used Alcohol Use Not Currently. Comments: quit Nov 2019 Drug Use Yes; Marijuana. Past Surgical History: Past Surgical History: Procedure Laterality Date COLONOSCOPY N/A 03/05/2020 Surgeon: Nohemi Magallon MD; Location: [facility] OR [facility] ESOPHAGOGASTRODUODENOSCOPY Upper 03/04/2020 Surgeon: Nohemi Magallon MD; Location: [facility] OR [facility] [place] ANESTHESIA FACIAL BONES OR SKULL NOS REVISE TOTAL HIP REPLACEMENT Review of Systems: Review of Systems Constitutional: Negative for activity change, appetite change, chills, diaphoresis, fatigue and fever. HENT: Negative for congestion, ear discharge, ear pain, facial swelling, hearing loss, sore throat, tinnitus, trouble swallowing and voice change. Eyes: Negative for photophobia, pain, discharge, redness, itching and visual disturbance. Respiratory: Negative for apnea, cough, choking, chest tightness, shortness of breath and stridor. Breasts: Negative for discharge. Cardiovascular: Positive for chest pain. Negative for palpitations and leg swelling. Gastrointestinal: Positive for abdominal pain. Negative for abdominal distention, blood in stool, diarrhea, nausea and vomiting. Genitourinary: Negative for dysuria, frequency, hematuria, flank pain, enuresis and difficulty urinating. Musculoskeletal: Negative for arthralgias, back pain, gait problem, joint swelling, myalgias, neck pain and neck stiffness. Skin: Negative for color change, pallor, rash and wound. Neurological: Positive for dizziness. Negative for syncope, facial asymmetry, speech difficulty, weakness, light-headedness and headaches. Psychiatric/Behavioral: Negative for agitation, confusion, hallucinations and self-injury. The patient is not nervous/anxious. Hematological: Negative for adenopathy, cold intolerance and heat intolerance. Does not bruise/bleed easily. Endocrine: Negative for cold intolerance, heat intolerance, polydipsia and polyphagia. Physical Exam: ED Triage Vitals [10/09/24 1023] Weight 77.1 kg (170 lb) Actual or estimated Height 1.626 m (5' 4") BP (!) 194/120 Pulse 78 Resp 20 Temp 36.6 ?C (97.8 ?F) Temp source Oral SpO2 99 % Measured on Room air Physical Exam Constitutional: General: She is not in acute distress. Appearance: She is well-developed. She is not ill-appearing, toxic-appearing or diaphoretic. HENT: Head: Normocephalic and atraumatic. Right Ear: External ear normal. Left Ear: External ear normal. Eyes: General: No scleral icterus. Right eye: No discharge. Left eye: No discharge. Extraocular Movements: Extraocular movements intact. Conjunctiva/sclera: Conjunctivae normal. Pupils: Pupils are equal, round, and reactive to light. Neck: Trachea: No tracheal deviation. Cardiovascular: Rate and Rhythm: Normal rate and regular rhythm. Heart sounds: Normal heart sounds. Pulmonary: Effort: Pulmonary effort is normal. No respiratory distress. Breath sounds: Normal breath sounds. No stridor. No wheezing or rales. Chest: Chest wall: No tenderness. Abdominal: General: There is no distension. Palpations: Abdomen is soft. Tenderness: There is abdominal tenderness (RLQ ttp). There is no guarding. Musculoskeletal: General: No tenderness or deformity. Normal range of motion. Cervical back: Normal range of motion and neck supple. Lymphadenopathy: Cervical: No cervical adenopathy. Skin: General: Skin is warm. Coloration: Skin is not pale. Findings: No erythema or rash. Neurological: General: No focal deficit present. Mental Status: She is alert and oriented to person, place, and time. Cranial Nerves: No cranial nerve deficit. Sensory: No sensory deficit. Motor: No weakness or abnormal muscle tone. Coordination: Coordination normal. Psychiatric: Behavior: Behavior normal. Thought Content: Thought content normal. Judgment: Judgment normal. Radiology: CT ABDOMEN PELVIS W CONTRAST Final Result CT Abdomen and Pelvis with intravenous contrast. CLINICAL HISTORY: RLQ Abdominal pain. DOSE: Up-to-date CT equipment and radiation dose reduction techniques were employed. CTDIvol: 10.53 mGy. DLP: 516.52 mGy-cm. TECHNIQUE : Contiguous axial imaging from the level of the lung bases through the pubic symphysis were performed after the uncomplicated administration of nonionic contrast material. Coronal and sagittal reconstructions were obtained. Auto mA and/or iterative reconstruction were used to reduce radiation dose. FINDINGS: Comparison has been made with 05/26/2024 studies. Lower lungs: Calcified granuloma in the right middle lobe. No pleural effusion or pericardial effusion. No definite evidence of hiatal hernia. Liver, Gallbladder and Spleen: Liver is 13.3 cm in length and appears normal. Spleen is of normal size, 10.5 x 3.7 cm. Gallbladder showed no CT detectable abnormalities. Peritoneum: No free air or free fluid. Small nonspecific reactive lymphadenopathy noted in the right lower quadrant of the abdomen. Pancreas and Adrenals: Unremarkable pancreas and right adrenal gland. Left adrenal gland showed an irregular, roughly oval-shaped 21 x 12 mm nodule of uncertain etiology. Nodule remains unchanged when compared with noncontrast enhanced CT scan of 05/26/2024.. Kidneys and Ureters: No visible calculi in the renal collecting systems. No hydroureter or hydronephrosis. Vessels: Mild atherosclerosis and lower abdominal aorta and right common iliac artery. Retroperitoneum: No abnormal fluid or lymphadenopathy. Bowel: Normal appendix. Diverticulosis of the sigmoid and descending colon noted with mild congestion of the pericolonic fat surrounding the distal descending colon. Thickening of the wall of the sigmoid colon could be secondary to prior episodes of diverticulitis. Bladder and Reproductive Organs: Unremarkable. Bones: Metallic orthopedic hardware in left femur. Old fracture of L1 which has lost approximately 60-70% of his height. There is minimal worsening in the severity of fracture since May 2024 study. Soft tissues: Small fat-containing indirect type left inguinal hernia. CONCLUSION: 1. Moderate uncomplicated acute diverticulitis surrounding distal descending colon. Normal appendix. 2. Left adrenal gland nodule of uncertain etiology. XR CHEST 1 VW Final Result HISTORY: Chest pain. TECHNIQUE: Portable AP view of the chest is obtained. Comparison is being made with previous portable study of 09/13/2024. FINDINGS: No acute pneumonia. No pneumothorax or pleural effusion or pulmonary congestion detected. Cardiac size is within upper normal limits. CONCLUSIONS: No signs of acute cardiopulmonary disease. Lab Results: Lab Results CBC WITH DIFF - Abnormal Result Value Ref Range WBC 8.66 4.30 - 11.10 10*3/?L RBC 4.28 3.93 - 5.25 10*6/?L HGB 13.7 11.6 - 15.0 g/dL HCT 41.5 35.7 - 45.2 % MCV 97.0 (*) 80.6 - 95.5 fL MCH 32.0 25.9 - 32.8 pg MCHC 33.0 31.6 - 35.1 g/dL RDW-SD 42.9 39.0 - 49.9 fL RDW-CV 12.1 12.0 - 15.5 % PLT 288 166 - 358 10*3/?L MPV 10.1 9.5 - 12.9 fL NRBC/100 WBC 0.0 0.0 - 10.0 /100 WBCs NRBC x10 3 <0.01 10*3/?L GRAN MAT (NEUT) % 69.9 % IMM GRAN % 0.30 % LYMPH % 20.6 % MONO % 6.8 % EOS % 1.7 % BASO % 0.7 % GRAN MAT x10 3 (ANC) 6.05 1.88 - 7.09 10*3/uL IMM GRAN x10 3 0.03 0.00 - 0.06 10*3/uL LYMPH x10 3 1.78 1.32 - 3.29 10*3/uL MONO x10 3 0.59 0.33 - 0.92 10*3/uL EOS x10 3 0.15 0.03 - 0.39 10*3/uL BASO x10 3 0.06 0.01 - 0.07 10*3/uL COMP. METABOLIC PANEL (51384) - Abnormal NA 137 135 - 145 mmol/L K 4.2 3.5 - 5.0 mmol/L CL 101 98 - 108 mmol/L CO2 TOTAL 28 23 - 31 mmol/L AGAP 8 2 - 16 BUN 19 7 - 23 mg/dL GLUCOSE 110 70 - 110 mg/dL CREATININE 0.63 0.50 - 1.04 mg/dL TOTAL BILI 0.5 0.1 - 1.1 mg/dL CALCIUM 9.9 8.6 - 10.6 mg/dL T PROTEIN 7.8 6.3 - 8.2 g/dL ALBUMIN 4.5 3.5 - 5.0 g/dL ALK PHOS 124 (*) 34 - 122 U/L ALTv 20 5 - 35 U/L AST(SGOT) 27 13 - 40 U/L eGFR 109.6 mL/min/1.73m2 URINALYSIS - Abnormal APPEARANCE Clear Clear COLOR Straw (*) Yellow PH 5.0 4.8 - 8.0 SP GRAVITY 1.010 1.003 - 1.030 GLU U QUAL Normal Normal BLOOD Negative Negative KETONES Negative Negative PROTEIN Negative Negative UROBILIN Normal Normal BILIRUBIN Negative Negative NITRITE Negative Negative LEUK BIRDIE Negative Negative RBC/HPF 1 0 - 3 HPF WBC/HPF 1 0 - 5 HPF BACTERIA Negative Negative POCT TEST - Normal POCT PREG Negative On board controls acceptable with C Line Yes POCT PREG LOT # [id number] POCT PREG TEST DATE 09/24/2025 LIPASE - Normal LIPASE 78 0 - 220 U/L TROPONIN I - Normal TROPONIN I 0.006 <=0.034 ng/mL EKG: If EKG completed, see Procedure Note. Orders and Treatments: Orders Placed This Encounter Procedures XR CHEST [address] ABDOMEN PELVIS W CONTRAST POCT Test Cbc with Diff Comp. Metabolic Panel (51184) Lipase Urinalysis Troponin I Orders Placed This Encounter Medications acetaminophen (TYLENOL) tablet 650 mg cloNIDine (CATAPRES) tablet 0.1 mg labetaloL (NORMODYNE) 5 mg/mL injection 10 mg iopamidol (ISOVUE 370-500 mL) injection 84 mL amoxicillin-clavulanate 875-125 mg per tablet DISCONTD: amoxicillin-clavulanate 875-125 mg per tablet losartan (COZAAR) tablet 50 mg amoxicillin-clavulanate (AUGMENTIN) 875-125 mg per tablet 1 tablet First Provider Eval: ED Events Date/Time Event User Comments 10/09/24 1031 Medical Screening Begins POPEYE MARQUEZ MD -- 10/09/24 1031 First Provider Evaluation POPEYE MARQUEZ MD -- ED COURSE Diagnosis/Impression as of 10/09/24 1331 Chest pain, unspecified type RLQ abdominal pain Diverticulitis Procedures: Procedures MDM: Medical Decision Making DDx incl appy, atypical CP, essential HTN, hypertensive urgency, MANUEL, anxiety, UTI, et al D/w pt results, rec plan of care for her Diverticulitis and HTN, rec f/u, and red flags for return. Pt reports being able to take Augmentin w/o allergic reaction Amount and/or Complexity of Data Reviewed Labs: ordered. Radiology: ordered. Risk OTC drugs. Prescription drug management. Flowsheet Documentation: Disposition/Condition: ED Disposition ED Disposition Discharge Condition Stable Comment -- Discharge Medications: Patient's Medications START taking these medications AMOXICILLIN-CLAVULANATE 875-125 MG PER TABLET Take 1 tablet by mouth once now for 1 dose. CONTINUE taking these medications which have NOT CHANGED ASPIRIN 81 MG CHEWABLE TABLET Take 1 tablet by mouth in the morning. BENZONATATE 100 MG CAPSULE Take 1 capsule by mouth every 8 (eight) hours as needed for Cough. BUSPIRONE 10 MG TABLET Take 2 tablets by mouth in the morning and 2 tablets in the evening. Take 2 tablets by mouth twice a day DOXYCYCLINE HYCLATE 100 MG CAPSULE Take 1 capsule by mouth in the morning and 1 capsule in the evening. FLUOXETINE 20 MG TABLET Take 1 tablet by mouth in the morning and 1 tablet in the evening. LOSARTAN 50 MG TABLET Take 1 tablet by mouth in the morning. METOPROLOL TARTRATE 50 MG TABLET Take 1 tablet by mouth in the morning and 1 tablet in the evening. Take 2 tablets by mouth once daily OMEPRAZOLE 20 MG TABLET Take 1 tablet by mouth in the morning. ONDANSETRON 4 MG TABLET Take 1 tablet by mouth every 6 (six) hours as needed for Nausea and Vomiting (N/V). TRAZODONE 50 MG TABLET Take 1 tablet by mouth at bedtime as needed for Insomnia. START taking Modified Medications as Prescribed No medications on file STOP taking these medications No medications on file Follow-up: Electronically signed by: Popeye Marquez MD 10/09/24 1329 Popeye Marquez MD 10/09/24 1331 [facility] 2024-09-19 10:37:19 Pt reporting chest pain with new onset of cough and congestion that began 2 days ago. Pt denies fever and reports also coughing up mucous with "brown specks" and chest hurting when taking a deep breath. Pt states was seen in ER on 09/13/2024 for same sx's but did not have cough and congestion at that time. Pt states "It feels like when I had pneumonia". Offered pt appt for today at 1300, pt accepts. Pt informed if chest pain worsens, jaw pain, has SOB or other sx's prior to today's appt pt to proceed to ER for evaluation. Pt verbalizes understanding and agrees w/POC. I Otero RN [facility] 2024-09-19 10:17:34 Patient is having chest pain when taking deep breaths and chest pain when coughing. Patient states it hurts to breath when taking deep breaths. I Tomlinson [facility] 2024-09-13 21:49:56 Pt given printed and verbal discharge instructions regarding chest pain, dental caries, encouraged hydration, 4 Prescription sent to pharmacy Discussed ibuprofen and to take with food to avoid GI distress. Discussed antibiotic therapy and to take until all completed unless adverse reaction occurs - if occurs, discontinue medication and follow up with pcp/seek medical attention Discussed [place] side affects and to avoid driving/operating machinery/or engaging in activities requiring alertness while taking. Pt verbalized understanding of instructions, pt awake alert oriented, resp reg unlabored, skin w/d, color appropriate for race, moves all ext well,pt encouraged to follow up with pcp Advised to seek medical attention for new/prolonged/worsening of symptoms No adverse reaction to meds given in ER noted upon discharge PIV d'cd, dressing to site, catheter in tact. Awake, alert oriented, resp reg unlabored, skin w/d, pt leaving ambulatory without assist, in no apparent distress, Stephane Quinn RN [facility] 2024-09-13 19:50:01 CC: Chest pain and jaw pain since this morning. Pt does have an infected tooth on the L side of face. 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 Pts BP was 200/135 at home. Pt is c/o of tenderness on chest. PMHx: HTN, chronic pancreatitis (last drank yesterday) Awake, alert, oriented, resp reg unlabored, skin intact, color appropriate for race, moves all ext without difficulty, amb Monica Elder RN [facility] 2024-09-13 19:47:00 Associated Order(s): EKG-12 Lead ROUTINE ONCE Pre-Procedure Diagnose(s): Chest pain, unspecified type Post-Procedure Diagnose(s): Chest pain, unspecified type [facility] Emergency Department Note Patient Name: Melanie Salgado Date of : 1975 48 year old female Treatment Room: KS1/KS1 Primary Care Physician: PATIENT DOES NOT HAVE A PCP Patient Escorted by: Family [5] Mode of Arrival: Personal means [1] 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 Pt has hx of alcoholism for 3 years. Pt had relapse last nght and drank last night heavily. Pt still well to work this morning and left early. Chest Pain Pain location: Substernal area Pain quality: aching Pain severity: Mild Timing: Constant Chronicity: New Associated symptoms: no abdominal pain, no altered mental status, no dizziness, no dysphagia, no fatigue, no numbness, no orthopnea and no palpitations Past Medical History/Immunizations: Past Medical History: Diagnosis Date Alcoholism Anxiety Depression HTN (hypertension) Pancreatitis Tetanus received in last 5 years: Yes Allergies: Allergies Allergen Reactions Clindamycin Anaphylaxis Rocephin [Ceftriaxone Sodium] Anaphylaxis Past Social History: Tobacco Use Former; 0.5 packs/day; Smoked an average of 0.5 packs/day for 20.0 years; Types: Cigarettes Smokeless Tobacco: Never used smokeless tobacco. Vaping Use Never used Alcohol Use Not Currently. Comments: quit Nov 2019 Drug Use Yes; Marijuana. Past Surgical History: Past Surgical History: Procedure Laterality Date COLONOSCOPY N/A 03/05/2020 Surgeon: Nohemi Magallon MD; [place] [facility] [place]ENOS[place] Upper 03/04/2020 Surgeon: Nohemi Magallon MD; Location: [facility] OR Location [place] ANESTHESIA FACIAL BONES OR SKULL NOS REVISE TOTAL HIP REPLACEMENT Review of Systems: Review of Systems Constitutional: Negative for fatigue. HENT: Negative for trouble swallowing. Cardiovascular: Positive for chest pain. Negative for palpitations and orthopnea. Gastrointestinal: Negative for abdominal pain. Neurological: Negative for dizziness and numbness. All other systems reviewed and are negative. Physical Exam: ED Triage Vitals [09/13/241951] Weight 77.1 kg (170 lb) Actual or estimated Actual Height 1.6 m (5' 3") BP (!) 207/130 Pulse 90 Resp 16 Temp 36.7 ?C (98 ?F) Temp source Oral SpO2 98 % Measured on Room air Physical Exam Vitals and nursing note reviewed. Constitutional: General: She is in acute distress. Appearance: She is normal weight. HENT: Head: Normocephalic. Nose: Nose normal. Mouth/Throat: Mouth: Mucous membranes are moist. Pharynx: Oropharynx is clear. Comments: Dental caries, poor dentitian Eyes: Extraocular Movements: Extraocular movements intact. Conjunctiva/sclera: Conjunctivae normal. Pupils: Pupils are equal, round, and reactive to light. Cardiovascular: Rate and Rhythm: Normal rate. Pulses: Normal pulses. Pulmonary: Effort: Pulmonary effort is normal. Abdominal: General: Abdomen is flat. Bowel sounds are normal. Musculoskeletal: General: Normal range of motion. Cervical back: Normal range of motion. Skin: General: Skin is warm. Capillary Refill: Capillary refill takes less than 2 seconds. Neurological: General: No focal deficit present. Mental Status: She is alert and oriented to person, place, and time. Mental status is at baseline. Psychiatric: Mood and Affect: Mood normal. Behavior: Behavior normal. Thought Content: Thought content normal. Judgment: Judgment normal. Comments: Tearful and labile.. Radiology: XR CHEST 1 VW Final Result Chest X-Ray Indication: chest pain Technique: Frontal view(s) of the chest submitted for interpretation. Comparison: 09/15/2023 Ordering Clinician: JIMBO ROMERO Technical Quality: Adequate Findings: No consolidation or effusion. No acute mediastinal abnormality. No pneumothorax. No acute fractures. IMPRESSION Impression: No acute abnormalities. No consolidation or pneumothorax. End of report Lab Results: Lab Results COMP. METABOLIC PANEL (06000) - Abnormal Result Value Ref Range NA 133 (*) 135 - 145 mmol/L K 4.4 3.5 - 5.0 mmol/L CL 101 98 - 108 mmol/L CO2 TOTAL 22 (*) 23 - 31 mmol/L AGAP 10 2 - 16 BUN 23 7 - 23 mg/dL GLUCOSE 104 70 - 110 mg/dL CREATININE 0.61 0.50 - 1.04 mg/dL TOTAL BILI 0.2 0.1 - 1.1 mg/dL CALCIUM 10.3 8.6 - 10.6 mg/dL T PROTEIN 7.9 6.3 - 8.2 g/dL ALBUMIN 4.6 3.5 - 5.0 g/dL ALK PHOS 98 34 - 122 U/L ALTv 22 5 - 35 U/L AST(SGOT) 26 13 - 40 U/L eGFR 110.4 mL/min/1.73m2 CBC WITH DIFF - Abnormal WBC 12.00 (*) 4.30 - 11.10 10*3/?L RBC 4.19 3.93 - 5.25 10*6/?L HGB 13.1 11.6 - 15.0 g/dL HCT 39.9 35.7 - 45.2 % MCV 95.2 80.6 - 95.5 fL MCH 31.3 25.9 - 32.8 pg MCHC 32.8 31.6 - 35.1 g/dL RDW-SD 41.4 39.0 - 49.9 fL RDW-CV 11.9 (*) 12.0 - 15.5 % PLT 325 166 - 358 10*3/?L MPV 9.7 9.5 - 12.9 fL NRBC/100 WBC 0.0 0.0 - 10.0 /100 WBCs NRBC x10 3 <0.01 10*3/?L GRAN MAT (NEUT) % 71.6 % IMM GRAN % 0.90 % LYMPH % 20.8 % MONO % 5.8 % EOS % 0.3 % BASO % 0.6 % GRAN MAT x10 3 (ANC) 8.59 (*) 1.88 - 7.09 10*3/uL IMM GRAN x10 3 0.11 (*) 0.00 - 0.06 10*3/uL LYMPH x10 3 2.49 1.32 - 3.29 10*3/uL MONO x10 3 0.70 0.33 - 0.92 10*3/uL EOS x10 3 0.04 0.03 - 0.39 10*3/uL BASO x10 3 0.07 0.01 - 0.07 10*3/uL TROPONIN I - Normal TROPONIN I 0.003 <=0.034 ng/mL LIPASE - Normal LIPASE 52 0 - 220 U/L EKG: If EKG completed, see Procedure Note. Orders and Treatments: Orders Placed This Encounter Procedures XR CHEST 1 VW TROPONIN I COMP. METABOLIC PANEL (85270) LIPASE, SERUM CBC WITH DIFF Orders Placed This Encounter Medications LORazepam (ATIVAN) injection 1 mg ketorolac (TORADOL) injection 30 mg labetaloL (NORMODYNE) 5 mg/mL injection 20 mg HYDROcodone-acetaminophen (NORCO 5) tablet 2 tablet ibuprofen 600 mg tablet LORazepam (ATIVAN) 1 mg tablet HYDROcodone-acetaminophen 5-325 mg tablet doxycycline hyclate 100 mg capsule First Provider Eval: ED Events Date/Time Event User Comments 09/13/242022 Medical Screening Begins ANDREW HENDRICKS MD -- 09/13/242022 First Provider Evaluation ANDREW HENDRICKS MD -- ED COURSE ED Course as of 09/13/242146Sep 13, [id number] Pt reassessed, mainly complain of dental pain now. Will treat with pain meds and antiobiotics. [NI] 2123 BP has improved. Now 135/101 [NI] ED Course User Index [NI] Andrew Hendricks MD Diagnosis/Impression as of 09/13/242146 Chest pain, unspecified type Dental caries Procedures: EKG-12 Lead ROUTINE ONCE Date/Time: 09/13/2024 9:38 PM Performed by: Andrew Hendricks MD Authorized by: Andrew Hendricks MD Rate: ECG rate: 90 ECG rate assessment: normal Rhythm: Rhythm: sinus rhythm QRS: QRS axis: Normal QRS conduction: normal ST segments: ST segments: Non-specific T waves: T waves: non-specific MDM: Medical Decision Making 48 yo with hx dental caries and chest pain. HEART score low. Outpatient cardiology f/u. For dental caries, pain meds and antibiotitcs. Amount and/or Complexity of Data Reviewed Independent Historian: Details: mom ECG/medicine tests: ordered and independent interpretation performed. Decision-making details documented in ED Course. Risk Prescription drug management. Parenteral controlled substances. Flowsheet Documentation: Scoring Tools: No data recorded HEART Score: 2 Disposition/Condition: ED Disposition ED Disposition Discharge Condition Stable Comment -- Discharge Medications: Patient's Medications START taking these medications DOXYCYCLINE HYCLATE 100 MG CAPSULE Take 1 capsule by mouth in the morning and 1 capsule in the evening. HYDROCODONE-ACETAMINOPHEN 5-325 MG TABLET Take 1-2 tablets by mouth every 6 (six) hours as needed for Pain (scale 4-6) for up to 7 days. Indications: acute pain IBUPROFEN 600 MG TABLET Take 1 tablet by mouth every 6 (six) hours as needed for Pain (scale 4-6) for up to 5 days. LORAZEPAM (ATIVAN) 1 MG TABLET Take 1 tablet by mouth 3 (three) times daily as needed for Anxiety or Agitation for up to 3 days. CONTINUE taking these medications which have NOT CHANGED ALBUTEROL 90 MCG/ACTUATION INHALER Inhale 2 Puffs every 4 (four) hours as needed for Wheezing or Shortness of Breath. ASPIRIN 81 MG CHEWABLE TABLET Take 1 tablet by mouth in the morning. BENZONATATE 100 MG CAPSULE Take 1 capsule by mouth every 8 (eight) hours as needed for Cough. BUSPIRONE 10 MG TABLET Take 2 tablets by mouth in the morning and 2 tablets in the evening. Take 2 tablets by mouth twice a day DIAZEPAM 5 MG TABLET Take 1 tablet by mouth 2 (two) times daily as needed for Agitation or Anxiety. DICYCLOMINE 20 MG TABLET Take 1 tablet by mouth every 6 (six) hours as needed for Abdominal pain. DOCUSATE SODIUM 250 MG CAPSULE Take 1 capsule by mouth 2 (two) times daily as needed for Constipation. KETOROLAC 10 MG TABLET Take 1 tablet by mouth every 8 (eight) hours. METOPROLOL TARTRATE 50 MG TABLET Take 2 tablets by mouth in the morning. Take 2 tablets by mouth once daily OMEPRAZOLE 20 MG TABLET Take 1 tablet by mouth in the morning. ONDANSETRON 4 MG TABLET Take 1 tablet by mouth every 6 (six) hours as needed for Nausea and Vomiting (N/V). ONDANSETRON 4 MG TABLET Take 1 tablet by mouth every 8 (eight) hours as needed for Nausea and Vomiting (N/V). PANTOPRAZOLE 40 MG EC TABLET TAKE ONE TABLET BY MOUTH DAILY PROMETHAZINE 25 MG TABLET Take 1 tablet by mouth every 6 (six) hours as needed for Nausea and Vomiting (N/V). TRAMADOL (ULTRAM) 50 MG TABLET Take 1 tablet by mouth every 6 (six) hours as needed for Pain (scale 7-10). Indications: acute pain TRAMADOL 50 MG TABLET Take 1 tablet by mouth every 6 (six) hours as needed (pain). Indications: acute pain TRAZODONE 50 MG TABLET Take 1 tablet by mouth at bedtime as needed for Insomnia. START taking Modified Medications as Prescribed No medications on file STOP taking these medications No medications on file Follow-up: Contact information for follow-up Roma Rey MD Specialty: CARDIOVASCULAR DISEASE [facility] [address] [place] [id number] Electronically signed by: Andrew Hendricks MD 09/13/242146 [facility] 2024-05-26 22:52:36 Pt given printed and verbal discharge instructions regarding abd pain, diverticulitis, fracture L1, Prescriptions provided Discussed tramadol side affects and to avoid driving/operating machinery/or engaging in activities requiring alertness while taking. Pt verbalized understanding of instructions, pt awake alert oriented, resp reg unlabored, skin w/d, color appropriate for race, moves all ext well,pt encouraged to follow up with pcp Advised to seek medical attention for new/prolonged/worsening of symptoms No adverse reaction to meds given in ER noted upon discharge PIV d'cd, dressing to site, catheter in tact. Awake, alert oriented, resp reg unlabored, skin w/d, pt leaving amb with steady gait, in no apparent distress, [facility] 2024-05-26 19:49:49 Patient arrived ambulatory to ED c/o nausea, lower right quadrant abd pain, and back pain. Patient has hx of chronic pancreatitis. Patient was recently discharged from [facility] today. Patient had IV abx while admitted. Aram Coppola RN [facility] 2024-05-26 09:43:00 [facility] Center Name: [address] : 1975, Age: 48, Sex: SOFI[place] [address] Unit #: [id number], Status: DIS IN [phone] Location: SURG B [facility] Report Dict Dr.: Sarah Saavedra MD Admission Date: 05/21/24 Report #: [id number] Discharge Date: 05/26/24 CC: Sarah Saavedra MD, Collin MD OUT OF TOWN PHYSICIAN Discharge Summary Report Status: Signed Provider Encounter Date: 05/26/24 Date of Admission: 05/21/24 19:17 Date of Discharge: 05/26/24 Admitting Provider: Evan Ponce MD Consultations: General Surgery, Neurosurgery Primary Care Physician: OUT OF TOWN Course Hospital Course: FROM HPI: "This is a 48-year-old female patient with a past medical history of alcoholic pancreatitis, hypertension, diverticulitis who was transferred from [facility] on account of perforated diverticulitis with abscess. Symptom started 2 to 3 days ago with intermittent abdominal pain mainly on the left lower abdomen which progressively worsened with associated nausea and nonbloody diarrhea. She notes having similar symptoms a few weeks ago and was seen in an outside ER however was discharged with a diagnosis of possible viral infection. CT prior to transfer a was concerning for diverticular abscess and she was started on Zosyn, IV fluids and Zofran. CT scan also noted left adrenal nodule and L1 compression fractureMRI lumbar spine recommended for further evaluation.. On arrival she had ongoing lower abdominal pain otherwise is generally stable." Pt was evaluated by neurosurgery and recommended TLSO brace with outpatient follow up. Pt was also seen by general surgery, and they said no surgical intervention, and to treat with IV antibiotics. Pt was treated with IV zosyn. Pt had improvement in symptoms and discharged on 05/26/24. Pt to follow up with GI for colonoscopy, and neurosurgery for repeat spinal Xrays. Resuscitation Status: 05/21/24 20:04 Resuscitation Status Routine Resuscitation Status: FULL: Full Resuscitation Lab Results: 05/24/24 04:48 05/24/24 04:48 Vitals: Vital Signs (12 hours) Temp Pulse Resp BP Pulse Ox 05/26/24 09:11 63 05/26/24 09:00 98.0 F 66 16 170/85 H 96 05/26/24 04:30 97.7 F 63 14 146/88 H 95 05/25/24 23:30 97.9 F 69 16 142/97 H 96 Weight Weight 169 lb 4.8 oz Physical Exam: The patient was seen and examined on the day of discharge. General Appearance: NAD, awake alert Eye: PERRL, anicteric sclera ENT: normocephalic atraumatic, no oropharyngeal lesions, moist mucosa Neck: supple, symmetric Heart: RRR, normal S1/S2 Respiratory: CTAB, normal chest expansion Problem Assessment: Acute sigmoid diverticulitis with diverticular abscess and perforation Continue abx Received IV fluids L1 compression fracture Neurosurgery was consulted Continue TLSO brace Hypertension, essential Continue po meds GERD Continue PPI History of left adrenal nodule Outpatient follow-up with PCP Time Spent in discharge related activities (mins): 24 Plan Prescriptions: Amoxicillin/Potassium Clav [Augmentin] 875 mg PO Q12HR #14 tab NIFEdipine [Procardia XL] 30 mg PO DAILY #30 tab Home Medications: Medication Instructions Recorded Confirmed Type Dicyclomine [Bentyl] 20 mg PO QID PRN 05/21/24 05/21/24 History FLUoxetine HCl 20 mg PO BID 05/21/24 05/21/24 History HYDROcodone/Acetaminophen See Rx Instructions .ROUTE .COMPLEX 05/21/24 05/21/24 History [Hydrocodone-Acetamin 7.5-300] Metoprolol Succinate [Toprol Xl] 100 mg PO DAILY 05/21/24 05/21/24 History Omeprazole 40 mg PO BID 05/21/24 05/21/24 History Promethazine [Phenergan] 25 mg PO Q6HR PRN 05/21/24 05/21/24 History busPIRone HCl [Buspirone HCl] 20 mg PO BID 05/21/24 05/21/24 History traZODone HCl [Trazodone HCl] 100 mg PO HS PRN 05/21/24 05/21/24 History Amoxicillin/Potassium Clav 875 mg PO Q12HR #14 tab 05/26/24 Rx [Augmentin] NIFEdipine [Procardia XL] 30 mg PO DAILY #30 tab 05/26/24 Rx Allergies: ceftriaxone [From Rocephin] Allergy (Verified 05/21/24 20:29) Anaphylaxis Per patient report ciprofloxacin [From Cipro] Allergy (Verified 05/21/24 20:29) Anaphylaxis Per patient report Discharge Instructions:: Follow-up on the left adrenal nodule with your PCP for monitoring. Follow up with your GI doctor for a colonoscopy. Follow up with neurosurgery Dr. Joiner for repeat Xrays. Monitor and record your blood pressure. Take this for your next appointment with your PCP, in 1-2 weeks. Activity:: Activity as Tolerated Nourishment:: Heart Healthy Diet Referrals: [facility] PHYSICIAN,OUT OF [Primary Care Provider] - Shashank Joiner MD [Active] - Disposition: HOME Quality CORE MEASURES:: N/A <Electronically signed by Sarah Saavedra MD> 05/27/24 1311 Sarah Saavedra [facility] 2024-05-25 13:32:00 [facility] Center Name: [address] : 1975, Age: 48, Sex: SOFI[place] [address] Unit #: [id number], Status: DIS IN [phone] Location: SURG B [facility] Report Dict DrWhitley: Pretty Georges NP Admission Date: 05/21/24 Report #: [id number] Discharge Date: 05/26/24 CC: General Surgery Progress Note Report Status: Signed Surgery Progress Note: Subj - Subjective Patient reports: no new complaints Narrative: Patient assessed during morning rounds, no signs of acute distress. She is resting comfortably in bed, denies nausea or vomiting. Discussed plan of care with patient, all questions answered. Surgery Progress Note: Obj - Vital signs Vital signs: Vital Signs - Most Recent Temp Pulse Resp BP Pulse Ox 97.8 F 71 15 134/92 H 98 05/25/24 11:52 05/25/24 11:52 05/25/24 11:52 05/25/24 11:52 05/25/24 12:00 - Physical Exam General: no distress, well developed, well nourished ENT: normal mucosa, normal nares Neck: no bev distention, trachea midline Respiratory: normal expansion, normal respiratory effort, breath sounds present Abdomen: soft Integumentary: no rash Musculoskeletal: normal posture Psychiatric: memory intact, oriented to person, oriented to place, speech is normal Surgery Progress Note: Results - Labs Result Diagrams: 05/24/24 04:48 05/24/24 04:48 - EKG Data Rate: normal - Radiology Interpretation Other Status: report reviewed by me Surgery Progress Note: A/P - Plan Plan: #Diverticulitis Outside imaging revealed perforated sigmoid diverticulitis. 6 mm adjacent abscess. Pneumoperitoneum is now present. Thickening of the wall of sigmoid colon all likely secondary to inflammation. Neoplasm considered less likely but could be monitored on subsequent. No signs of acute abdomen IV antibiotics Afebrile No leukocytosis (5) Denies nausea, vomiting Tolerating p.o. diet #Disposition Per primary team Plan of care discussed in detail with patient. All questions and concerns were addressed. Patient verbalized understanding and agrees with plan. Patient seen and examined with plan consensus per Dr. Lao. Disclaimer: This note was generated using [employer] dictation software. Any typographical errors are unintentional and attributed errors in voice recognition. If there are areas of the note that are unclear or do not make sense, please contact me for clarification. <Electronically signed by Pretty Georges ROLL OFF DRIVER> 05/25/24 1338 <Electronically signed by Ophelia Lao MD> 05/28/24 0119 Pretty Georges [facility] 2024-05-25 10:40:00 [facility] Center Name: MELANIE [address] : 1975, Age: 48, Sex: [place]FI[place] [address] Unit #: [id number], Status: ADM [place] [phone] Location: SURG B 0439-P Report Dict DrWhitley: Sarah Saavedra MD Admission Date: 05/21/24 Report #: [id number] Discharge Date: CC: Hospitalist Progress Note Report Status: Signed - Subjective Encounter Date: 05/25/24 Subjective: cc: Abdominal pain Tolerated solid food yesterday and this morning. Denies any abdominal pain or nausea. No bowel movement. Is passing gas. - Objective Vital Signs Weight: Vital Signs (12 hours) Temp Pulse Resp BP Pulse Ox 05/25/24 09:06 10 L 05/25/24 08:00 97.9 F 68 15 138/87 96 05/25/24 00:00 98.1 F 72 18 126/72 95 Weight Weight 169 lb 4.8 oz I O: I/O 05/24/24 05/25/24 05/26/24 06:59 06:59 06:59 Intake Total 480 1530 Balance 480 1530 Result Diagrams: 05/24/24 04:48 05/24/24 04:48 Hospitalist ROS - Review of Systems All other systems reviewed; all pertinent +/- noted in HPI/Subj - Medication Medications: Active Medications Generic Name Dose Route Start Last Admin Trade Name Freq PRN Reason Stop Dose Admin Hydrocodone Bitart/Acetaminophen 1 tab 05/22/24 12:55 05/25/24 09:06 Hydrocodone/Acetaminophen 5/325 Mg Tablet PO 05/25/24 12:56 1 tab Q4H PRN Administration Pain-Severe (7-10) Buspirone HCl 20 mg 05/22/24 21:00 05/25/24 09:06 Buspirone Hcl 10 Mg Tab PO 20 mg BID SURINDER Administration Docusate Sodium 100 mg 05/22/24 21:00 05/25/24 09:05 Docusate 100 Mg Cap PO 100 mg BID SURINDER Administration Fluoxetine HCl 20 mg 05/22/24 21:00 05/25/24 09:05 Fluoxetine Hcl 20 Mg Cap PO 20 mg BID SURINDER Administration Heparin Sodium (Porcine) 5,000 units 05/23/24 21:00 05/25/24 09:05 Heparin 5,000 Units/Ml Vial SC 5,000 units BID SURINDER Administration Hydralazine HCl 10 mg 05/21/24 21:25 05/24/24 16:53 Hydralazine 20 Mg/Ml Vial SLOW IVP 10 mg Q4H PRN Administration SBP Greater Than 180 Piperacillin Sod/Tazobactam 100 mls @ 25 mls/hr 05/22/24 02:00 05/25/24 09:19 Sod 3.375 gm/ Sodium Chloride IVPB 100 mls Q8H SURINDER Administration Metoprolol Succinate 100 mg 05/23/24 09:00 05/25/24 09:09 Metoprolol Succinate Xl 100 Mg Tab PO 100 mg DAILY SURINDER Administration Nifedipine 30 mg 05/24/24 09:00 05/25/24 09:06 Nifedipine Xl 30 Mg Er.Tab PO 30 mg DAILY SURINDER Administration Ondansetron HCl 4 mg 05/21/24 20:04 05/22/24 17:38 Ondansetron Odt 4 Mg Tab PO 4 mg Q6H PRN Administration Nausea/Vomiting Ondansetron HCl 4 mg 05/21/24 20:04 05/23/24 17:41 Ondansetron Pf 4 Mg/2 Ml Vial IVP 4 mg Q6H PRN Administration Nausea/Vomiting Pantoprazole Sodium 40 mg 05/22/24 21:00 05/25/24 09:[address] 40 Mg Tab PO 40 mg BID SURINDER Administration Polyethylene Glycol 17 gm 05/24/24 09:00 05/25/24 09:04 Polyethylene Glycol 3350 17 Gm Packet PO 17 gm DAILY SURINDER Administration Promethazine HCl 25 mg 05/22/24 12:53 05/23/24 13:18 Promethazine 25 Mg Tab PO 25 mg Q6H PRN Administration Nausea/Vomiting Trazodone HCl 100 mg 05/22/24 13:29 05/24/24 21:31 Trazodone Hcl 50 Mg Tab PO 100 mg HSPRN PRN Administration Insomnia Hospitalist Exam Vitals: Vital Signs (12 hours) Temp Pulse Resp BP Pulse Ox 05/25/24 09:06 10 L 05/25/24 08:00 97.9 F 68 15 138/87 96 05/25/24 00:00 98.1 F 72 18 126/72 95 Weight Weight 169 lb 4.8 oz General Appearance: NAD, awake alert Eye: PERRL, anicteric sclera ENT: normocephalic atraumatic, no oropharyngeal lesions, moist mucosa Neck: supple, symmetric Heart: RRR, normal S1/S2 Respiratory: CTAB, normal chest expansion Hosp A/P - Plan Acute sigmoid diverticulitis with diverticular abscess and perforation Continue IV Zosyn Received IV fluids L1 compression fracture Neurosurgery was consulted Continue TLSO brace Hypertension, essential Continue home meds, add nifedipine GERD Continue PPI History of left adrenal nodule Outpatient follow-up with PCP <Electronically signed by Sarah Saavedra MD> 05/25/24 1138 Sarah Saavedra [facility] 2024-05-24 11:30:00 [facility] Center Name: [address] : 1975, Age: 48, Sex: F [place] [id number] Unit #: [id number], Status: ADM IN [phone] Location: SURG B 3309- Report Dict Dr.: Sarah Saavedra MD Admission Date: 05/21/24 Report #: [id number] Discharge Date: CC: Hospitalist Progress Note Report Status: Signed - Subjective Encounter Date: 05/24/24 Subjective: cc: Abdominal pain Patient was seen walking around her room without TLSO brace as I was walking in. Educated patient on wearing TLSO brace with all movement. Diet advance per surgery. Patient denies any abdominal pain or nausea with clear liquids. - Objective Vital Signs Weight: Vital Signs (12 hours) Temp Pulse Resp BP Pulse Ox 05/24/24 08:38 63 05/24/24 07:20 97.6 F 63 17 174/105 H 96 05/24/24 05:15 97.7 F 67 18 175/100 H 95 Weight Weight 169 lb 4.8 oz I O: I/O 05/23/24 05/24/24 05/25/24 06:59 06:59 06:59 Intake Total 480 Balance 480 Result Diagrams: 05/24/24 04:48 05/24/24 04:48 Hospitalist ROS - Review of Systems All other systems reviewed; all pertinent +/- noted in HPI/Subj - Medication Medications: Active Medications Generic Name Dose Route Start Last Admin Trade Name Freq PRN Reason Stop Dose Admin Hydrocodone Bitart/Acetaminophen 1 tab 05/22/24 12:55 05/24/24 08:48 Hydrocodone/Acetaminophen 5/325 Mg Tablet PO 05/25/24 12:56 1 tab Q4H PRN Administration Pain-Severe (7-10) Buspirone HCl 20 mg 05/22/24 21:00 05/24/24 08:38 Buspirone Hcl 10 Mg Tab PO 20 mg BID SURINDER Administration Docusate Sodium 100 mg 05/22/24 21:00 05/24/24 08:37 Docusate 100 Mg Cap PO 100 mg BID SURINDER Administration Fluoxetine HCl 20 mg 05/22/24 21:00 05/24/24 08:37 Fluoxetine Hcl 20 Mg Cap PO 20 mg BID SURINDER Administration Heparin Sodium (Porcine) 5,000 units 05/23/24 21:00 05/24/24 08:38 Heparin 5,000 Units/Ml Vial SC 5,000 units BID SURINDER Administration Hydralazine HCl 10 mg 05/21/24 21:25 05/23/24 14:15 Hydralazine 20 Mg/Ml Vial SLOW IVP 10 mg Q4H PRN Administration SBP Greater Than 180 Piperacillin Sod/Tazobactam 100 mls @ 25 mls/hr 05/22/24 02:00 05/24/24 08:38 Sod 3.375 gm/ Sodium Chloride IVPB 100 mls Q8H SURINDER Administration Sodium Chloride 1,000 mls @ 50 mls/hr 05/23/24 15:27 05/23/24 17:42 Normal Saline 0.9% IV 1,000 mls .Q20H SURINDER Administration Metoprolol Succinate 100 mg 05/23/24 09:00 05/24/24 08:38 Metoprolol Succinate Xl 100 Mg Tab PO 100 mg DAILY SURINDER Administration Morphine Sulfate 2 mg 05/22/24 10:25 05/24/24 08:39 Morphine 2 Mg/Ml Vial SLOW IVP 05/25/24 10:26 2 mg Q4H PRN Administration Pain-Severe (7-10) Nifedipine 30 mg 05/24/24 09:00 05/24/24 08:38 Nifedipine Xl 30 Mg Er.Tab PO 30 mg DAILY SURINDER Administration Ondansetron HCl 4 mg 05/21/24 20:04 05/22/24 17:38 Ondansetron Odt 4 Mg Tab PO 4 mg Q6H PRN Administration Nausea/Vomiting Ondansetron HCl 4 mg 05/21/24 20:04 05/23/24 17:41 Ondansetron Pf 4 Mg/2 Ml Vial IVP 4 mg Q6H PRN Administration Nausea/Vomiting Pantoprazole Sodium 40 mg 05/22/24 21:00 05/24/24 08:[address] 40 Mg Tab PO 40 mg BID SURINDER Administration Polyethylene Glycol 17 gm 05/24/24 09:00 05/24/24 08:38 Polyethylene Glycol 3350 17 Gm Packet PO 17 gm DAILY SURINDER Administration Promethazine HCl 25 mg 05/22/24 12:53 05/23/24 13:18 Promethazine 25 Mg Tab PO 25 mg Q6H PRN Administration Nausea/Vomiting Trazodone HCl 100 mg 05/22/24 13:29 05/22/24 20:08 Trazodone Hcl 50 Mg Tab PO 100 mg HSPRN PRN Administration Insomnia Hospitalist Exam Vitals: Vital Signs (12 hours) Temp Pulse Resp BP Pulse Ox 05/24/24 08:38 63 05/24/24 07:20 97.6 F 63 17 174/105 H 96 05/24/24 05:15 97.7 F 67 18 175/100 H 95 Weight Weight 169 lb 4.8 oz General Appearance: NAD, awake alert Eye: PERRL, anicteric sclera ENT: normocephalic atraumatic, no oropharyngeal lesions, moist mucosa Neck: supple, symmetric Heart: RRR, normal S1/S2 Respiratory: CTAB, normal chest expansion Hosp A/P - Plan Acute sigmoid diverticulitis with diverticular abscess and perforation Continue IV Zosyn Diet advance per surgery Received IV fluids L1 compression fracture Neurosurgery was consulted Continue TLSO brace Hypertension, essential Continue home meds, add nifedipine GERD Continue PPI History of left adrenal nodule Outpatient follow-up with PCP <Electronically signed by Sarah Saavedra MD> 05/25/24 [email or web address] Sarah Saavedra STLSJH 2024-05-24 09:31:00 [facility] Center Name: MELANIE SALGADO [address] : 1975, Age: 48, Sex: F [place] [address] Unit #: [id number], Status: ADM [place] [phone] Location: SURG B [facility] Report Dict DrWhitley: Pretty Georges NP Admission Date: 05/21/24 Report #: [id number] Discharge Date: CC: General Surgery Progress Note Report Status: Signed Surgery Progress Note: Subj - Subjective Patient reports: no new complaints Narrative: Patient assessed during morning rounds with Dr. Lao, no signs of acute distress. She reports feeling "better" but reports she has not had a bowel movement. Until yesterday evening she was n.p.o. Discussed plan of care with patient, all questions answered. Surgery Progress Note: Obj - Vital signs Vital signs: Vital Signs - Most Recent Temp Pulse Resp BP Pulse Ox 97.6 F 63 17 174/105 H 96 05/24/24 07:20 05/24/24 08:38 05/24/24 07:20 05/24/24 07:20 05/24/24 07:20 - Physical Exam General: no distress, well developed ENT: normal mucosa, normal nares Neck: no bev distention, trachea midline Respiratory: normal expansion, normal respiratory effort, breath sounds present Abdomen: soft Integumentary: no rash Musculoskeletal: normal posture Psychiatric: memory intact, oriented to person, oriented to place, speech is normal Surgery Progress Note: Results - Labs Result Diagrams: 05/24/24 04:48 05/24/24 04:48 Lab results: Laboratory Results - last 12 hr 05/24/24 05/24/24 05/24/24 04:48 04:48 04:48 WBC 5.00 RBC 4.56 Hgb 14.2 Hct 44.9 MCV 98.5 H MCH 31.1 H MCHC 31.6 L RDW 12.8 Plt Count 206 MPV 10.4 Immature Gran % (Auto) 0.4 Nucleat RBC Rel Count 0.0 Immature Gran # (Auto) Less than 0.03 Absolute Nucleated RBC Less than 0.01 Neutrophils % 62.8 Lymphocytes % 23.6 Monocytes % 8.2 Eosinophils % 4.0 Basophils % 1.0 Neutrophils # 3.10 Lymphocytes # 1.20 Monocytes # 0.40 Eosinophils # 0.20 Basophils # 0.05 Sodium 139 Potassium 4.2 Chloride 108 H Carbon Dioxide 22 Anion Gap 13 BUN 8 Creatinine 0.70 Est GFR (CKD-EPI 2020) 107 Glucose 100 Lactic Acid 0.7 Calcium 9.4 Magnesium 1.7 Total Bilirubin 0.4 AST 90 H ALT 84 H Alkaline Phosphatase 94 Serum Total Protein 6.0 Albumin 3.0 L Globulin 3.0 Albumin/Globulin Ratio 1.0 L - Radiology Interpretation Other Status: report reviewed by me Surgery Progress Note: A/P - Plan Plan: #Diverticulitis Outside imaging revealed perforated sigmoid diverticulitis. 6 mm adjacent abscess. Pneumoperitoneum is now present. Thickening of the wall of sigmoid colon all likely secondary to inflammation. Neoplasm considered less likely but could be monitored on subsequent. No signs of acute abdomen IV antibiotics Afebrile No leukocytosis (5), continue to trend #Disposition Per primary team General surgery will continue to follow Plan of care discussed in detail with patient. All questions and concerns were addressed. Patient verbalized understanding and agrees with plan. Patient seen and examined with plan consensus per Dr. Lao. Disclaimer: This note was generated using Hatch dictation software. Any typographical errors are unintentional and attributed errors in voice recognition. If there are areas of the note that are unclear or do not make sense, please contact me for clarification. <Electronically signed by Pretty Georges NP> 05/24/24 0933 <Electronically signed by Ophelia Lao MD> 05/25/24 0749 Pretty Georges STLSJH 2024-05-23 21:57:00 [facility] Name: MELANIE SALGADO [address] : 1975, Age: 48, Sex: SOFI[place] [address] Unit #: [id number], Status: DIS IN [phone] Location: SURG B [facility] Attending Phys: Sarah Saavedra MD Discharge Date: 05/26/24 Report #: [id number] Consulting Phys: Kenyatta Kaur PA-C CC: Kenyatta Kaur PA-C, Sapna MD Leach, Collin MD OUT OF TOWN PHYSICIAN CONSULTATION REPORT Report Status: Signed DATE OF CONSULTATION: 05/23/2024 CHIEF COMPLAINT: Low back pain. HISTORY OF PRESENT ILLNESS: Ms. Salgado is a 48-year-old female with past medical history pertinent for alcoholic pancreatitis, diverticulitis, and hypertension, who was transferred to our facility from [facility] where treatment of bowel perforation with abscess. She was incidentally found to have an L1 fracture on CT of the abdomen and pelvis completed prior to transfer. She is reporting back pain when I saw her this morning. She localizes pain across the lower back and upper buttocks area. She denies leg pain. She had no other complaints when I saw her this morning. PAST MEDICAL HISTORY: 1. Alcoholic pancreatitis. 2. Diverticulitis. 3. Hypertension. ALLERGIES: 1. CEFTRIAXONE. 2. CIPROFLOXACIN. HOME MEDICATIONS: 1. Bentyl. 2. Fluoxetine. 3. Hydrocodone/acetaminophen 7.5/300. 4. Metoprolol succinate. 5. Omeprazole. 6. Phenergan. 7. Buspirone. 8. Trazodone. PAST SURGICAL HISTORY: 1. Prior trauma surgeries. 2. [place] tooth extraction. 3. Polypectomy. SOCIAL HISTORY: Previous alcohol use. Current tobacco use. Vaping. FAMILY HISTORY: Noncontributory. REVIEW OF SYSTEMS: 10-point review of systems is negative other than noted in the HPI. PHYSICAL EXAMINATION: GENERAL: Awake, alert, and appropriate. No acute distress. Nontoxic appearing. HEAD: Normocephalic, atraumatic. EENT: Pupils are equal, round, and reactive to light. Extraocular movements are intact. There is no drainage from the nares or external auricular canals. Patent oropharynx. NECK: Supple, nonpainful. Active range of motion is preserved. RESPIRATORY: Nonlabored respirations with no increased work of breathing or signs of respiratory distress. NEUROLOGIC: A and O x3. Cranial nerves 2 through 12 are grossly intact. Normal speech. 5/5 strength throughout the bilateral lower extremity myotomes. EXTREMITIES: No cyanosis. No edema. SKIN: Warm, dry, normal coloration. PSYCHIATRIC: Normal mood, normal affect. IMAGING DATA: MRI of the lumbar spine completed yesterday demonstrates an L1 superior endplate fracture with [id number] anterior wedging, consistent with an acute fracture, given STIR edema is present. There is trace retropulsion into the spinal canal, but there is no evidence of severe canal stenosis. There is no concerning stenosis involving the central canal, lateral recesses, and foramen. DIAGNOSES: 1. Acute L1 superior endplate fracture, initial encounter. 2. Diverticulitis with abscess. PLAN: I discussed this case and reviewed imaging studies with Dr. Joiner. The patient has an acute L1 superior endplate fracture that has no appearance concerning for instability. There is no stenosis or neural element compression evident on MRI of the lumbar spine completed yesterday. The patient denies radicular leg symptoms. She is neurologically intact with full strength throughout the bilateral lower extremity myotomes. Our team has recommended a [facility] clamshell brace on when out of bed. The patient has already obtained a brace and is at the bedside. Our team will arrange for outpatient followup x-rays in 6 and 12 weeks to monitor the fracture healing. The primary reason she was admitted to the hospital was for a diverticular abscess with perforation. Our medical colleagues are managing this with IV antibiotic treatment with Zosyn. Our team will sign off at this time, but feel free to contact Neurosurgery with any questions or concerns. This was a 55-minute initial hospital consultation, in which greater than 50% of the time was spent counseling and coordinating care. The remaining time was spent in review of records, review of imaging, evaluation, examination, and formulation of a plan. Job ID: [id number] Dictated by: Kenyatta Kaur PA-C <Electronically signed by Kenyatta Kaur PA-C> 08/05/24 1350 Dictated Date/Time: 05/23/249 Transcribed Date/Time: 05/23/242151 [employer] Expl[employer] Investigator: Kenyatta Waller STLSJ 2024-05-23 19:29:00 [facility] Center Name: MELANIE SALGADO [address] : 1975, Age: 48, Sex: [place] [address] Unit #: [id number], Status: ADM [place] [phone] Location: SURG B [facility] Report Dict Dr.: TRES SIERRA MD Admission Date: 05/21/24 Report #: [id number] Discharge Date: CC: Hospitalist Progress Note Report Status: Signed - Subjective Encounter Date: 05/23/24 Encounter Time: 15:30 Subjective: Patient seen and examined for diverticular abscess with back pain. Pain controlled on current regimen. Overnight events noted. - Objective Vital Signs Weight: Vital Signs (12 hours) Temp Pulse Pulse Pulse Resp BP BP 05/23/24 17:15 98.1 F 73 18 05/23/24 14:30 78 81 137/71 05/23/24 14:15 78 189/98 H 05/23/24 14:03 70 78 189/98 H 05/23/24 12:00 97.8 F 73 18 05/23/24 08:00 98.9 F 78 18 BP BP Pulse Ox 05/23/24 17:15 143/96 H 96 05/23/24 14:30 123/71 05/23/24 14:15 05/23/24 14:03 137/71 05/23/24 12:00 189/80 H 96 05/23/24 08:00 166/80 H Weight Weight 169 lb 4.8 oz I O: I/O 05/22/24 05/23/24 05/24/24 06:59 06:59 06:59 Intake Total 240 480 Balance 240 480 Result Diagrams: 05/23/24 04:54 05/23/24 04:54 Additional Labs: Abnormal Lab Results - Last 48 hrs 05/21/24 21:24: Lymphocytes % 19.5 L 05/22/24 04:31: Chloride 108 H, Anion Gap 9 L 05/22/24 04:31: Lymphocytes # 1.00 L 05/23/24 04:54: Chloride 110 H, AST 90 H, ALT 82 H, Albumin 3.1 L, Albumin/Globulin Ratio 1.0 L 05/23/24 04:54: MCH 31.5 H, Lymphocytes % 19.2 L, Lymphocytes # 1.10 L EKG Reviewed by me: Yes (Sinus rhythm on tele) Hospitalist ROS - Review of Systems Cardiovascular: denies: chest pain, palpitations Gastrointestinal: denies: nausea, vomiting - Medication Medications: Active Medications Generic Name Dose Route Start Last Admin Trade Name Claudine PRN Reason Stop Dose Admin Hydrocodone Bitart/Acetaminophen 1 tab 05/22/24 12:55 05/23/24 15:39 Hydrocodone/Acetaminophen 5/325 Mg Tablet PO 05/25/24 12:56 1 tab Q4H PRN Administration Pain-Severe (7-10) Buspirone HCl 20 mg 05/22/24 21:00 05/23/24 09:05 Buspirone Hcl 10 Mg Tab PO 20 mg BID SURINDER Administration Diazepam 5 mg 05/23/24 10:51 05/23/24 19:14 Diazepam 5 Mg Tab PO 5 mg Q8H PRN Administration Back pain/spasms Docusate Sodium 100 mg 05/22/24 21:00 05/23/24 09:05 Docusate 100 Mg Cap PO 100 mg BID SURINDER Administration Fluoxetine HCl 20 mg 05/22/24 21:00 05/23/24 09:05 Fluoxetine Hcl 20 Mg Cap PO 20 mg BID SURINDER Administration Hydralazine HCl 10 mg 05/21/24 21:25 05/23/24 14:15 Hydralazine 20 Mg/Ml Vial SLOW IVP 10 mg Q4H PRN Administration SBP Greater Than 180 Piperacillin Sod/Tazobactam 100 mls @ 25 mls/hr 05/22/24 02:00 05/23/24 17:42 Sod 3.375 gm/ Sodium Chloride IVPB 100 mls Q8H SURINDER Administration Sodium Chloride 1,000 mls @ 50 mls/hr 05/23/24 15:27 05/23/24 17:42 Normal Saline 0.9% IV 1,000 mls .Q20H SURINDER Administration Metoprolol Succinate 100 mg 05/23/24 09:00 05/23/24 09:05 Metoprolol Succinate Xl 100 Mg Tab PO 100 mg DAILY SURINDER Administration Morphine Sulfate 2 mg 05/22/24 10:25 05/23/24 17:41 Morphine 2 Mg/Ml Vial SLOW IVP 05/25/24 10:26 2 mg Q4H PRN Administration Pain-Severe (7-10) Ondansetron HCl 4 mg 05/21/24 20:04 05/22/24 17:38 Ondansetron Odt 4 Mg Tab PO 4 mg Q6H PRN Administration Nausea/Vomiting Ondansetron HCl 4 mg 05/21/24 20:04 05/23/24 17:41 Ondansetron Pf 4 Mg/2 Ml Vial IVP 4 mg Q6H PRN Administration Nausea/Vomiting Pantoprazole Sodium 40 mg 05/22/24 21:00 05/23/24 09:[address] 40 Mg Tab PO 40 mg BID SURINDER Administration Promethazine HCl 25 mg 05/22/24 12:53 05/23/24 13:18 Promethazine 25 Mg Tab PO 25 mg Q6H PRN Administration Nausea/Vomiting Trazodone HCl 100 mg 05/22/24 13:29 05/22/24 20:08 Trazodone Hcl 50 Mg Tab PO 100 mg HSPRN PRN Administration Insomnia Hospitalist Exam Vitals: Vital Signs (12 hours) Temp Pulse Pulse Pulse Resp BP BP 05/23/24 17:15 98.1 F 73 18 05/23/24 14:30 78 81 137/71 05/23/24 14:15 78 189/98 H 05/23/24 14:03 70 78 189/98 H 05/23/24 12:00 97.8 F 73 18 05/23/24 08:00 98.9 F 78 18 BP BP Pulse Ox 05/23/24 17:15 143/96 H 96 05/23/24 14:30 123/71 05/23/24 14:15 05/23/24 14:03 137/71 05/23/24 12:00 189/80 H 96 05/23/24 08:00 166/80 H Weight Weight 169 lb 4.8 oz General Appearance: awake alert Neck: symmetric, no JVD Heart: RRR, no gallops Respiratory: no wheezes, no rales, no ronchi Gastrointestinal: soft, normal bowel sounds, no guarding, tender to palpation (Generalized) Extremities: no cyanosis, no clubbing Neurological: no new deficit Musculoskeletal: normal tone, normal strength, generalized weakness Psychiatric: A O x 3 Hosp A/P - Plan 48-year-old female with diverticulosis presenting with abdominal pain. Workup at outside ER was consistent with diverticular abscess. Acute sigmoid diverticulitis with diverticular abscess with perforation Continue IV Zosyn Adequate dietverified with surgery General surgery input appreciated Conservative management per general surgery Superior endplate compression of L1 vertebra Neurosurgery input appreciated TLSO brace Pain control History of left adrenal nodule Patient was advised to follow-up with PCP as outpatient Hypertension Continue Toprol-XL Continue PRN antihypertensives Anxiety Continue home medications GERD Continue PPI DVT prophylaxis Heparin *Disclaimer: This note was generated using Hatch dictation software. Any typographical errors are unintentional and attributed to errors in voice-recognition. If there are any areas of the note that do not make sense, please contact me for clarification. <Electronically signed by Tres Sierra MD> 05/25/241913 Tres Sierra STLSJH 2024-05-23 10:41:00 [facility] Center Name: [address] : 1975, Age: 48, Sex: [place] [address] Unit #: [id number], Status: ADM [place] [phone] Location: SURG B 1419- Report Dict Dr.: Pretty Georges NP Admission Date: 05/21/24 Report #: [id number] Discharge Date: CC: General Surgery Progress Note Report Status: Signed Surgery Progress Note: Subj - Subjective Narrative: Patient assessed during morning rounds with Dr. Acosta, no signs of acute distress. She is laying in bed, brace at bedside. No family at bedside. Plan of care discussed with Dr. Acosta, all questions answered. Surgery Progress Note: Obj - Vital signs Vital signs: Vital Signs - Most Recent Temp Pulse Resp BP Pulse Ox 97.7 F 68 18 140/74 94 L 05/23/24 04:00 05/23/24 04:00 05/23/24 04:00 05/23/24 04:00 05/23/24 04:00 - Physical Exam General: no distress, well developed ENT: normal mucosa, normal nares Neck: no bev distention, trachea midline Respiratory: normal expansion, normal respiratory effort, breath sounds present Abdomen: soft, tender Integumentary: no rash Psychiatric: memory intact, oriented to person, oriented to place, speech is normal Surgery Progress Note: Results - Labs Result Diagrams: 05/24/24 04:48 05/24/24 04:48 Lab results: Laboratory Results - last 12 hr 05/23/24 05/23/24 05/23/24 04:54 04:54 04:54 WBC 5.50 RBC 4.54 Hgb 14.3 Hct 44.2 MCV 97.4 MCH 31.5 H MCHC 32.4 RDW 12.8 Plt Count 193 MPV 10.4 Immature Gran % (Auto) 0.5 Nucleat RBC Rel Count 0.0 Immature Gran # (Auto) 0.03 Absolute Nucleated RBC Less than 0.01 Neutrophils % 68.1 Lymphocytes % 19.2 L Monocytes % 7.7 Eosinophils % 3.6 Basophils % 0.9 Neutrophils # 3.70 Lymphocytes # 1.10 L Monocytes # 0.40 Eosinophils # 0.20 Basophils # 0.05 Sodium 141 Potassium 4.0 Chloride 110 H Carbon Dioxide 25 Anion Gap 10 BUN 8 Creatinine 0.77 Est GFR (CKD-EPI 2020) 95 Glucose 92 Lactic Acid 0.6 Calcium 9.2 Phosphorus 3.0 Magnesium 1.7 Total Bilirubin 0.5 AST 90 H ALT 82 H Alkaline Phosphatase 88 Serum Total Protein 6.0 Albumin 3.1 L Globulin 2.9 Albumin/Globulin Ratio 1.0 L - EKG Data Rate: normal - Radiology Interpretation Other Status: report reviewed by me Surgery Progress Note: A/P - Plan Plan: #Diverticulitis Outside imaging revealed perforated sigmoid diverticulitis. 6 mm adjacent abscess. Pneumoperitoneum is now present. Thickening of the wall of sigmoid colon all likely secondary to inflammation. Neoplasm considered less likely but could be monitored on subsequent. No signs of acute abdomen IV antibiotics Afebrile No leukocytosis (5.5), continue to trend #Disposition Per primary team General surgery will continue to follow Plan of care discussed in detail with patient. All questions and concerns were addressed. Patient verbalized understanding and agrees with plan. Patient seen and examined with plan consensus per Dr. Acosta. Disclaimer: This note was generated using Tomfooleryation software. Any typographical errors are unintentional and attributed errors in voice recognition. If there are areas of the note that are unclear or do not make sense, please contact me for clarification. Attending attestation: Patient seen and examined on rounds with RAYNE. Physical examination performed by me. Shared medical decision making performed with my portion taking 20 of 35 mins total. <Electronically signed by Pretty Georges NP> 05/23/24 1057 <Electronically signed by Pedro Acosta MD> 05/24/24 1625 [facility] 2024-05-22 19:26:00 [facility] Center Name: MELANIE SALGADO [address] : 1975, Age: 48, Sex: SOFI[place] [address] Unit #: [id number], Status: ADM [place] [phone] Location: [address] [place] [address]P Report Dict Dr.: TRES SIERRA MD Admission Date: 05/21/24 Report #: [id number] Discharge Date: CC: Hospitalist Progress Note Report Status: Signed - Subjective Encounter Date: 05/22/24 Encounter Time: 14:00 Subjective: Patient seen and examined for diverticular abscess with compression fracture. Complaining of abdominal pain radiating to her back. Nausea improving. Denies any chest pain or palpitations. - Objective Vital Signs Weight: Vital Signs (12 hours) Temp Pulse Resp BP Pulse Ox 05/22/24 15:46 98.4 F 79 176/91 H 93 L 05/22/24 13:00 97.7 F 71 14 168/82 H 96 05/22/24 08:57 98.1 F 71 13 177/97 H 94 L Weight Weight 169 lb 4.8 oz I O: I/O 05/21/24 05/22/24 05/23/24 06:59 06:59 06:59 Intake Total 240 Balance 240 Result Diagrams: 05/22/24 04:31 05/22/24 04:31 Additional Labs: Abnormal Lab Results - Last 48 hrs 05/21/24 21:24: Lymphocytes % 19.5 L 05/22/24 04:31: Chloride 108 H, Anion Gap 9 L 05/22/24 04:31: Lymphocytes # 1.00 L Radiology Reviewed by me: Yes (MRI lumbar spineL1 compression fracture) EKG Reviewed by me: Yes (Sinus rhythm on tele) Hospitalist ROS - Review of Systems Constitutional: denies: fever, chills Respiratory: denies: cough, shortness of breath Cardiovascular: denies: chest pain, palpitations - Medication Medications: Active Medications Generic Name Dose Route Start Last Admin Trade Name Freq PRN Reason Stop Dose Admin Cyclobenzaprine HCl 5 mg 05/22/24 15:00 05/22/24 17:49 Cyclobenzaprine 10 Mg Tab PO 5 mg TIDPRN PRN Administration Muscle Spasm Hydralazine HCl 10 mg 05/21/24 21:25 05/21/24 22:54 Hydralazine 20 Mg/Ml Vial SLOW IVP 10 mg Q4H PRN Administration SBP Greater Than 180 Sodium Chloride 1,000 mls @ 75 mls/hr 05/21/24 20:15 05/22/24 09:39 Normal Saline 0.9% IV 1,000 mls .[id number] SURINDER Administration Piperacillin Sod/Tazobactam 100 mls @ 25 mls/hr 05/22/24 02:00 05/22/24 17:38 Sod 3.375 gm/ Sodium Chloride IVPB 100 mls Q8H SURINDER Administration Morphine Sulfate 2 mg 05/22/24 10:25 05/22/24 17:38 Morphine 2 Mg/Ml Vial SLOW IVP 05/23/24 10:26 2 mg Q4H PRN Administration Pain-Severe (7-10) Ondansetron HCl 4 mg 05/21/24 20:04 05/22/24 17:38 Ondansetron Odt 4 Mg Tab PO 4 mg Q6H PRN Administration Nausea/Vomiting Hospitalist Exam Vitals: Vital Signs (12 hours) Temp Pulse Resp BP Pulse Ox 05/22/24 15:46 98.4 F 79 176/91 H 93 L 05/22/24 13:00 97.7 F 71 14 168/82 H 96 05/22/24 08:57 98.1 F 71 13 177/97 H 94 L Weight Weight 169 lb 4.8 oz General Appearance: awake alert General - other findings: In mild distress due to pain Eye: anicteric sclera ENT: normocephalic atraumatic, no oropharyngeal lesions Neck: supple, symmetric, no JVD, no thyromegaly Heart: RRR, no gallops, no rubs, normal peripheral pulses Respiratory: no wheezes, no rales, no ronchi, normal chest expansion Gastrointestinal: soft, normal bowel sounds, no guarding, no rigidity, tender to palpation (Generalized) Extremities: no cyanosis, no clubbing, no edema Neurological: no weakness, no focal deficits Neurological - other findings: Neurological exam limited due to low back pain Musculoskeletal: normal tone, normal strength, no muscle wasting, generalized weakness Psychiatric: normal affect, A O x 3 Hosp A/P - Plan 48-year-old female with diverticulosis presenting with abdominal pain. Workup at outside ER was consistent with diverticular abscess. Acute sigmoid diverticulitis with diverticular abscess with perforation Continue IV Zosyn General surgery input appreciated Conservative management per general surgery Superior endplate compression of L1 vertebra Obtain neurosurgery consultation Pain control History of left adrenal nodule Patient was advised to follow-up with PCP as outpatient Hypertension Will restart Toprol-XL Continue PRN antihypertensives Anxiety Restart home medications Patient denies any suicidal ideation GERD Restart PPIs DVT prophylaxis SCDs. Patient does not want heparin to be started *Disclaimer: This note was generated using Hatch dictation software. Any typographical errors are unintentional and attributed to errors in voice-recognition. If there are any areas of the note that do not make sense, please contact me for clarification. <Electronically signed by Tres Sierra MD> 05/23/24 0748 Tres Sierra STLSJH 2024-05-22 06:40:00 [facility] Center Name: M[address]AN[address] : 1975, Age: 48, Sex: [place]FI[place] [address] Unit #: [id number], Status: DIS [place] [phone] [id number]: [facility]G [facility] Report Dict Dr.: Altagracia Hall NP Admission Date: 05/21/24 Report #: [id number] Discharge Date: 05/26/24 CC: General Surgery Consult Note Report Status: Signed Surgery Consult: HPI - Consult details Date: 05/22/24 Time: 06:40 Reason for consult: other (diverticular abscess) History of present illness: Melanie Salgado is a 48-year-old female who presented as a transfer from [facility] for evaluation for diverticulitis with abscess. As per hospital medicine team: "Symptom[s] started 2 to 3 days ago with intermittent abdominal pain mainly on the left lower abdomen which progressively worsened with associated nausea and nonbloody diarrhea. She notes having similar symptoms a few weeks ago and was seen in an outside ER however was discharged with a diagnosis of possible viral infection. CT prior to transfer a was concerning for diverticular abscess and she was started on Zosyn, IV fluids and Zofran. CT scan also noted left adrenal nodule and L1 compression fractureMRI lumbar spine recommended for further evaluation." On evaluation this morning patient reports some moderate pain to the left lower abdomen but endorses most pain is to the lower back. She denies any other symptoms at this time. Surgery Consult: ROS - Review of Systems All systems: 10 systems reviewed and no additional complaints unless stated below. Surgery Consult: H Past Medical History: Recurrent alcoholic pancreatitis, hypertension, diverticulitis, anxiety - Past Social History Smoking Status: Other (vapes) Alcohol Use: in recovery Surgery Consult: Exam - Vital signs Vital signs: Vital Signs - Most Recent Temp Pulse Resp BP Pulse Ox 97.5 F L 80 17 186/88 H 98 05/22/24 05:52 05/22/24 05:52 05/22/24 05:52 05/22/24 05:52 05/22/24 05:52 - Physical Exam General: moderate distress (secondary to pain) Eye: normal ocular movement. negative: icteric ENT: normal nares Neck: no bev distention, trachea midline Respiratory: normal expansion, normal respiratory effort Abdomen: soft, tender (moderated tenderness LLQ). negative: distended Integumentary: no rash Neurologic: normal sensation Musculoskeletal: normal posture Psychiatric: oriented to time, oriented to person, oriented to place Surgery Consult: Meds - Medications Medications: Current Medications Acetaminophen (Acetaminophen 325 Mg Tab) 650 mg PO Q4H PRN PRN Reason: Headache/Fever>101 F/Pain(1-3) Acetaminophen (Acetaminophen 650 Mg Suppository) 650 mg VT Q4H PRN PRN Reason: Headache/Fever>101 F/Pain(1-3) Hydralazine HCl (Hydralazine 20 Mg/Ml Vial) 10 mg SLOW IVP Q4H PRN PRN Reason: SBP Greater Than 180 Last Admin: 05/21/24 22:54 Dose: 10 mg Sodium Chloride (Normal Saline 0.9%) 1,000 mls @ 75 mls/hr IV .[id number] [facility] Last Admin: 05/21/24 21:25 Dose: 1,000 mls Piperacillin Sod/Tazobactam (Sod 3.375 gm/ Sodium Chloride) 100 mls @ 25 mls/hr IVPB Q8H SURINDER Last Admin: 05/22/24 02:19 Dose: 100 mls Morphine Sulfate (Morphine 4 Mg/Ml Vial) 4 mg SLOW IVP Q4H PRN PRN Reason: Pain-Breakthrough Last Admin: 05/22/24 06:11 Dose: 4 mg Ondansetron HCl (Ondansetron Odt 4 Mg Tab) 4 mg PO Q6H PRN PRN Reason: Nausea/Vomiting Last Admin: 05/22/24 02:05 Dose: 4 mg Ondansetron HCl (Ondansetron Pf 4 Mg/2 Ml Vial) 4 mg IVP Q6H PRN PRN Reason: Nausea/Vomiting - Allergies Allergies/Adverse Reactions: Allergies Allergy/AdvReac Type Severity Reaction Status Date / Time ceftriaxone [From Rocephin] Allergy Anaphylaxis Verified 05/21/24 20:29 ciprofloxacin [From Cipro] Allergy Anaphylaxis Verified 05/21/24 20:29 Surgery Consult: Results - Labs Result Diagrams: 05/24/24 04:48 05/24/24 04:48 Lab results: Laboratory Results WBC 4.90 10x3/uL (4.8-10.8) 05/22/24 04:31 RBC 4.51 mill/uL (4.20-5.40) 05/22/24 04:31 Hgb 14.0 g/dL (12.0-16.0) 05/22/24 04:31 Hct 43.3 % (36.0-47.0) 05/22/24 04:31 MCV 96.0 fL (78.0-98.0) 05/22/24 04:31 MCH 31.0 pg (27.0-31.0) 05/22/24 04:31 MCHC 32.3 g/dL (32.0-36.0) 05/22/24 04:31 RDW 13.0 % (11.5-14.5) 05/22/24 04:31 Plt Count 169 10x3/uL (130-400) 05/22/24 04:31 MPV 10.4 fL (7.4-10.4) 05/22/24 04:31 Immature Gran % (Auto) 0.4 % (0-5) 05/22/24 04:31 Nucleat RBC Rel Count 0.0 % (0.0-0.0) 05/22/24 04:31 Immature Gran # (Auto) Less than 0.03 10x3/uL (0.00-0.50) 05/22/24 04:31 Absolute Nucleated RBC Less than 0.01 10x3/uL (None Seen) 05/22/24 04:31 Neutrophils % 69.3 % (42.0-75.0) 05/22/24 04:31 Lymphocytes % 21.0 % (21.0-51.0) 05/22/24 04:31 Monocytes % 6.1 % (0.0-10.0) 05/22/24 04:31 Eosinophils % 2.4 % (0.0-10.0) 05/22/24 04:31 Basophils % 0.8 % (0.0-1.0) 05/22/24 04:31 Neutrophils # 3.40 10x3/uL (1.40-6.50) 05/22/24 04:31 Lymphocytes # 1.00 10x3/uL (1.20-3.40) L 05/22/24 04:31 Monocytes # 0.30 10x3/uL (0.11-0.59) 05/22/24 04:31 Eosinophils # 0.10 10x3/uL (0.0-0.7) 05/22/24 04:31 Basophils # 0.04 10x3/uL (0.0-0.2) 05/22/24 04:31 Sodium 141 mmol/L (136-145) 05/22/24 04:31 Potassium 3.6 mmol/L (3.5-5.1) 05/22/24 04:31 Chloride 108 mmol/L (98-107) H 05/22/24 04:31 Carbon Dioxide 28 mmol/L (22-29) 05/22/24 04:31 Anion Gap 9 mmol/L (10-20) L 05/22/24 04:31 BUN 12 mg/dL (7.0-18.7) 05/22/24 04:31 Creatinine 0.75 mg/dL (0.6-1.1) 05/22/24 04:31 Est GFR (CKD-EPI 2020) 98 05/22/24 04:31 Glucose 94 mg/dL (70-105) 05/22/24 04:31 Lactic Acid 0.7 mmol/L (0.5-2.2) 05/21/24 21:24 Calcium 9.0 mg/dL (7.8-10.44) 05/22/24 04:31 - EKG Data Rate: normal - Radiology Interpretation Other Status: report reviewed by me Additional comments: Abdominal CT from outside facility report: Impression: Perforated sigmoid diverticulitis. 6 mm adjacent abscess. Pneumoperitoneum is now present. Thickening of the wall of the sigmoid colon all likely secondary to inflammation. Neoplasm considered less likely but can be monitored on subsequent. 2.1 cm left adrenal nodule probably adenoma. However it is recommended that the patient chemical shift MRI for confirmation. Mild to moderate compression fracture L1 vertebral body probably acute/subacute. Clinically indicated MRI could be obtained for further evaluation. Surgery Consult: A/P - Problem (1) Diverticulitis of intestine with abscess Current Visit: Yes Code(s): K57.80 - DVTRCLI OF INTEST, PART UNSP, W PERF AND ABSCESS W/O BLEED Status: Acute - Plan Plan: 48-year-old female with diverticulitis with abscess. Afebrile. White count within normal limits. Labs unremarkable. There are no signs of acute peritonitis. There is no indication for surgical intervention at this time. Recommend continued abx treatment per hospitalist medicine Situation discussed in detail with patient. All questions and concerns were addressed. Patient verbalized understanding and agrees with plan. Patient seen and examined with plan consensus per Disclaimer: This note was generated using [employer]atch dictation software. Any typographical errors are unintentional and attributed to errors in voice recognition. If any areas of the note are unclear or do not make sense, please contact me for clarification. Attending attestation: Patient seen and examined on rounds with RAYNE. Physical examination performed by me. Shared medical decision making performed with my portion taking 20 of 35 mins total. A/P diverticulitis with abscess not requiring drainage. IV abx. bowel rest. OR for resection if clinical picture declines or fails to progress <Electronically signed by Altagracia Hall ROLL OFF DRIVER> 05/28/24 0100 <Electronically signed by Pedro Acosta MD> 05/24/24 1251 Altagracia Hall [facility] 2024-05-21 21:10:00 [facility] Center Name: MELANIE SALGADO [address] : 1975, Age: 48, Sex: SOFIYA Angel [id number] Unit #: [id number], Status: ADM [place] [phone] Location: [address] [place] [address] Dominik Wellington MD, PhD Admission Date: 05/21/24 Report #: [id number] Discharge Date: CC: Hospitalist History Physical Report Status: Signed Hospitalist HPI Encounter Date: 05/21/24 Abdominal pain History of Present Illness: This is a 48-year-old female patient with a past medical history of alcoholic pancreatitis, hypertension, diverticulitis who was transferred from [facility] on account of perforated diverticulitis with abscess. Symptom started 2 to 3 days ago with intermittent abdominal pain mainly on the left lower abdomen which progressively worsened with associated nausea and nonbloody diarrhea. She notes having similar symptoms a few weeks ago and was seen in an outside ER however was discharged with a diagnosis of possible viral infection. CT prior to transfer a was concerning for diverticular abscess and she was started on Zosyn, IV fluids and Zofran. CT scan also noted left adrenal nodule and L1 compression fractureMRI lumbar spine recommended for further evaluation.. On arrival she had ongoing lower abdominal pain otherwise is generally stable. Allergies/Adverse Reactions: Allergy/AdvReac Type Severity Reaction Status Date / Time ceftriaxone [From Rocephin] Allergy Anaphylaxis Verified 05/21/24 20:29 ciprofloxacin [From Cipro] Allergy Anaphylaxis Verified 05/21/24 20:29 Home Medications: Medication Instructions Recorded Confirmed Type Dicyclomine [Bentyl] 20 mg PO QID PRN 05/21/24 05/21/24 History FLUoxetine HCl 20 mg PO BID 05/21/24 05/21/24 History HYDROcodone/Acetaminophen See Rx Instructions .ROUTE .COMPLEX 05/21/24 05/21/24 History [Hydrocodone-Acetamin 7.5-300] Metoprolol Succinate [Toprol Xl] 100 mg PO DAILY 05/21/24 05/21/24 History Omeprazole 40 mg PO BID 05/21/24 05/21/24 History Promethazine [Phenergan] 25 mg PO Q6HR PRN 05/21/24 05/21/24 History busPIRone HCl [Buspirone HCl] 20 mg PO BID 05/21/24 05/21/24 History traZODone HCl [Trazodone HCl] 100 mg PO HS PRN 05/21/24 05/21/24 History Past History: Past medical history: Diverticulitis, pancreatitis Past surgical history: Extensive trauma surgery, wisdom tooth removal, polypectomy. Social history: Previous alcohol use. Currently vapes. Family history: Noncontributory. Hospitalist HPI ROS Constitutional: reports: weakness, malaise. denies: fever, chills, sweats Respiratory: denies: cough, shortness of breath, hemoptysis Cardiovascular: denies: chest pain, palpitations, orthopnea Gastrointestinal: reports: nausea, abdominal pain Genitourinary: denies: dysuria, incontinence All other systems reviewed; all pertinent +/- noted in HPI/Subj Hospitalist Exam Vitals: Vital Signs (12 hours) Temp Pulse Resp BP Pulse Ox 05/21/24 19:42 179/90 H 05/21/24 19:35 98.2 F 62 20 212/98 H 95 Weight Weight 169 lb 4.8 oz General Appearance: awake alert Eye: PERRL, anicteric sclera Neck: supple, symmetric, no JVD Heart: RRR, no murmur, no gallops, no rubs Respiratory: CTAB, no wheezes, no rales, no ronchi Gastrointestinal: soft, non-distended, normal bowel sounds, tender to palpation Extremities: no cyanosis, no clubbing, no edema Neurological: cranial nerve grossly intact, no weakness, no focal deficits Psychiatric: normal affect, normal behavior, A O x 3 Hospitalist Results Result Diagrams: 05/22/24 04:31 05/22/24 04:31 Hospitalist H P A/P Plan: This is a 48-year-old female patient with a past medical history of alcoholic pancreatitis, hypertension, diverticulitis who is being admitted for diverticular abscess. Diverticular abscess with perforation Started on Zosynwe will continue IV fluids Pain relief as needed Keep n.p.o. Surgery consult. Left adrenal nodule According to patient this has been chronic She can follow-up on outpatient basis. L1 compression fracture She complains of ongoing low back pain MRI in a.m. for further evaluation Hypertension Monitor BP for now <Electronically signed by Dominik Wellington MD> 05/22/241940 Dominik Wellington STLSJH 2024-05-05 17:48:51 Pt given printed and verbal discharge instructions regarding abdominal pain, N/V/D, and encouraged hydration. Prescriptions sent to pharmacy Discussed tramadol side affects and to avoid driving/operating machinery/or engaging in activities requiring alertness while taking. Pt verbalized understanding of instructions, pt awake alert oriented, resp reg unlabored, skin w/d, color appropriate for race, moves all ext well,pt encouraged to follow up with pcp. Advised to seek medical attention for new/prolonged/worsening of symptoms, Symptoms increased pain that is not controlled by medications No adverse reaction to meds given in ER noted upon discharge PIV d'cd, dressing to site, catheter in tact. Awake, alert oriented, resp reg unlabored, skin w/d, pt leaving amb with steady gait, in no apparent distress, Janette Noe RN [facility] 2024-05-05 14:53:50 Gave report to BONY Noe [facility] 2024-05-05 13:44:31 During triage patient states she has HTN and take blood pressure medication. Patient states she has not been able to keep her blood pressure medications down for the past three days. [facility] 2024-05-05 13:37:21 Patient arrived by [facility] for abdominal pain and chest pain. Patient states she has chronic pancreatitis. 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 Guru Dawkins RN [facility] 2024-05-05 13:35:00 Associated Order(s): EKG-12 Lead ROUTINE ONCE Pre-Procedure Diagnose(s): Abdominal pain, unspecified abdominal location Post-Procedure Diagnose(s): Abdominal pain, unspecified abdominal location [facility] Emergency Department Note Patient Name: Melanie Salgado Date of : 1975 48 year old female Treatment Room: [facility] Primary Care Physician: No primary care provider on file. Patient Escorted by: Self [9] Mode of Arrival: EMS - [place] [[id number]] EMS Treatment Prior to ED Arrival: STERILE PROCESSING TECHNICIAN treatment: Analgesic;None STERILE PROCESSING TECHNICIAN treatment comments: Fentanyl and Zofran Travel and Exposure Screening: Symptoms Does patient have any of these symptoms?: (not recorded) Exposure Screening Has patient had contact with someone with a communicable disease in the last month?: (not recorded) Diseases exposed to:: (not recorded) Is Patient ?: (not recorded) Exposure Date: (not recorded) Chief Complaint: Chief Complaint Patient presents with Abdominal Pain Chest Pain History of Present Illness: 3 days of persistent nausea with vomiting. Multiple episodes. Concurrent watery diarrhea. All non-bloody. Non-focal abdominal pain, cramping, greatest in upper abdomen, wax/wane intensity, aggravated with emesis, radiates to sternal / esophageal region. Subjective fever. (+) chills. (+) myalgia. Poor PO intake last 3 days. No dysuria. Sense of decreased urine output. EMS administered zofran, fentanyl. Recent encounters: 1. 01/20/24 to 01/23/24. ADC. Diverticulitis with abscess 2. 11/03/23 to 11/05/23. ADC. Abdominal pain. Chronic pancreatitis. History provided by: Patient Past Medical History/Immunizations: Past Medical History: Diagnosis Date Alcoholism Anxiety Depression HTN (hypertension) Pancreatitis Tetanus received in last 5 years: Yes Allergies: Allergies Allergen Reactions Clindamycin Anaphylaxis Rocephin [Ceftriaxone Sodium] Anaphylaxis Past Social History: Tobacco Use Former; 0.5 packs/day; Smoked an average of 0.5 packs/day for 20.0 years; Types: Cigarettes Smokeless Tobacco: Never used smokeless tobacco. Vaping Use Never used Alcohol Use Not Currently. Comments: quit Nov 2019 Drug Use Yes; Marijuana. Past Surgical History: Past Surgical History: Procedure Laterality Date COLONOSCOPY N/A 03/05/2020 Surgeon: Nohemi Magallon MD; Location: [facility] OR [facility] ESOPHAGOGASTRODUODENOSCOPY Upper 03/04/2020 Surgeon: Nohemi Magallon MD; Location: [facility] OR [facility] [place] ANESTHESIA FACIAL BONES OR SKULL NOS REVISE TOTAL HIP REPLACEMENT Review of Systems: Review of Systems Constitutional: Positive for chills and fever (subjective). HENT: Negative. Eyes: Negative. Respiratory: Negative. Gastrointestinal: Positive for abdominal pain, diarrhea, nausea and vomiting. Negative for blood in stool. Genitourinary: Positive for decreased urine volume. Negative for dysuria and frequency. Musculoskeletal: Positive for myalgias. Neurological: Negative. Psychiatric/Behavioral: Negative. Physical Exam: ED Triage Vitals [05/05/24 1338] Weight 72.6 kg (160 lb) Actual or estimated Height 1.626 m (5' 4") BP (!) 194/113 Pulse 72 Resp 13 Temp 36.7 ?C (98.1 ?F) Temp source Oral SpO2 97 % Measured on Room air Physical Exam Vitals and nursing note reviewed. Constitutional: General: She is not in acute distress. Appearance: Normal appearance. She is not ill-appearing, toxic-appearing or diaphoretic. HENT: Head: Normocephalic and atraumatic. Right Ear: External ear normal. Left Ear: External ear normal. Nose: Nose normal. Mouth/Throat: Mouth: Mucous membranes are moist. Eyes: Extraocular Movements: Extraocular movements intact. Conjunctiva/sclera: Conjunctivae normal. Cardiovascular: Rate and Rhythm: Normal rate and regular rhythm. Pulmonary: Effort: Pulmonary effort is normal. No respiratory distress. Breath sounds: Normal breath sounds. No wheezing, rhonchi or rales. Abdominal: General: There is no distension. Palpations: Abdomen is soft. Tenderness: There is abdominal tenderness (non-focal ttp greatest in upper abdomen). Musculoskeletal: General: Normal range of motion. Skin: General: Skin is warm and dry. Neurological: General: No focal deficit present. Mental Status: She is alert. Psychiatric: Mood and Affect: Mood normal. Behavior: Behavior normal. Thought Content: Thought content normal. Judgment: Judgment normal. Radiology: CT ABDOMEN PELVIS W CONTRAST Final Result EXAM: CT ABDOMEN PELVIS W CONTRAST HISTORY: 48 years -old Female with Abdominal pain, acute, nonlocalized non-focal abdominal pain greatest in upper abdomen; history of diverticulitis with abscess in 01/2024. ORDERING PHYSICIAN: JIMBO ROMERO TECHNIQUE: Contiguous volumetric CT images were obtained from the lower chest through the abdomen and pelvis with intravenous contrast. Images were displayed in axial, coronal, and sagittal planes. All CT scans are performed using dose optimization techniques as appropriate to the exam being performed. These techniques include automatic exposure control and/or standardized protocols utilizing dose matching according to exam type and patient size. COMPARISON: 01/20/2024 FINDINGS: Statements: None. Thoracic: Included images of the lower chest demonstrate no abnormalities. Hepatobiliary: Hepatomegaly with hepatic steatosis. No focal hepatic lesion. The gallbladder is unremarkable. No biliary dilation. Pancreas: No abnormality identified in the pancreas. Spleen: No abnormality identified in the spleen. Adrenals: There is a 1.7 cm left adrenal nodule of indeterminant density. Genitourinary: No parenchymal abnormality identified in either kidney. No hydronephrosis. The bladder is contracted limiting evaluation. The uterus is unremarkable. No adnexal mass. Gastrointestinal: No evidence of bowel obstruction. There is a long segment wall thickening in the transverse colon, descending colon, and sigmoid colon. Mild diverticulosis. The appendix is normal. Vascular/Lymphatics: No enlarged lymph nodes by CT size criteria. Abdominal aorta is normal in caliber. MSK: No concerning bony lesion identified. ORIF hardware in the proximal left femur. Other: No extraluminal air. No extraluminal fluid. IMPRESSION 1. Long segment wall thickening in the colon concerning for colitis. 2. Hepatomegaly with hepatic steatosis. 3. Mild diverticulosis. 4. Indeterminate 1.7 cm left adrenal nodule is unchanged. Again recommend a 12 month follow-up CT or MRI with adrenal protocol. RL: [id number] AFC: [id number] End of report Lab Results: Lab Results CBC WITH DIFF - Abnormal Result Value Ref Range WBC 9.08 4.30 - 11.10 10*3/?L RBC 5.02 3.93 - 5.25 10*6/?L HGB 16.0 (*) 11.6 - 15.0 g/dL HCT 47.2 (*) 35.7 - 45.2 % MCV 94.0 80.6 - 95.5 fL MCH 31.9 25.9 - 32.8 pg MCHC 33.9 31.6 - 35.1 g/dL RDW-SD 45.5 39.0 - 49.9 fL RDW-CV 13.2 12.0 - 15.5 % PLT 199 166 - 358 10*3/?L MPV 12.1 9.5 - 12.9 fL NRBC/100 WBC 0.0 0.0 - 10.0 /100 WBCs NRBC x10 3 <0.01 10*3/?L GRAN MAT (NEUT) % 84.1 % IMM GRAN % 0.30 % LYMPH % 9.8 % MONO % 5.0 % EOS % 0.2 % BASO % 0.6 % GRAN MAT x10 3 (ANC) 7.64 (*) 1.88 - 7.09 10*3/uL IMM GRAN x10 3 0.03 0.00 - 0.06 10*3/uL LYMPH x10 3 0.89 (*) 1.32 - 3.29 10*3/uL MONO x10 3 0.45 0.33 - 0.92 10*3/uL EOS x10 3 <0.03 (*) 0.03 - 0.39 10*3/uL BASO x10 3 0.05 0.01 - 0.07 10*3/uL COMP. METABOLIC PANEL (39414) - Abnormal NA 136 135 - 145 mmol/L K 3.2 (*) 3.5 - 5.0 mmol/L CL 100 98 - 108 mmol/L CO2 TOTAL 24 23 - 31 mmol/L AGAP 12 2 - 16 BUN 11 7 - 23 mg/dL GLUCOSE 166 (*) 70 - 110 mg/dL CREATININE 0.52 0.50 - 1.04 mg/dL TOTAL BILI 1.1 0.1 - 1.1 mg/dL CALCIUM 10.2 8.6 - 10.6 mg/dL T PROTEIN 7.4 6.3 - 8.2 g/dL ALBUMIN 4.3 3.5 - 5.0 g/dL ALK PHOS 93 34 - 122 U/L ALTv 178 (*) 5 - 35 U/L AST(SGOT) 173 (*) 13 - 40 U/L eGFR 114.8 mL/min/1.73m2 URINALYSIS - Abnormal APPEARANCE Cloudy (*) Clear COLOR Rosalina (*) Yellow PH 6.0 4.8 - 8.0 SP GRAVITY 1.024 1.003 - 1.030 GLU U QUAL Normal Normal BLOOD Negative Negative KETONES 5 mg/dL (*) Negative PROTEIN 100 mg/dL (*) Negative UROBILIN 2.0 mg/dL (*) Normal BILIRUBIN Negative Negative NITRITE Negative Negative LEUK BIRDIE Negative Negative RBC/HPF 3 0 - 3 HPF WBC/HPF 2 0 - 5 HPF BACTERIA Negative Negative MUCOUS Moderate (*) Negative LPF SQ EPITH 42 HPF CA OXALATE 56 (*) <=1 HPF LIPASE - Normal LIPASE 54 0 - 220 U/L TROPONIN I - Normal TROPONIN I 0.005 <=0.034 ng/mL EKG: If EKG completed, see Procedure Note. Orders and Treatments: Orders Placed This Encounter Procedures CT ABDOMEN PELVIS W CONTRAST CBC WITH DIFF COMP. METABOLIC PANEL (07464) LIPASE TROPONIN I URINALYSIS Orders Placed This Encounter Medications NaCl 0.9% (NS) bolus infusion 1,000 mL morpHINE (4 mg/mL) injection 4 mg proMETHazine (PHENERGAN) 12.5 mg in NS 50 mL IV piggyback (CNR) famotidine (PEPCID (PF)) injection 20 mg iopamidol (ISOVUE 370-500 mL) injection 85 mL proMETHazine 25 mg tablet dicyclomine 20 mg tablet traMADoL 50 mg tablet First Provider Eval: ED Events Date/Time Event User Comments 05/05/24 1408 Medical Screening Begins JIMBO ROMERO MD -- 05/05/24 1408 First Provider Evaluation JIMBO ROMERO MD -- ED COURSE Diagnosis/Impression as of 05/05/24 1736 Abdominal pain, unspecified abdominal location Nausea and vomiting, unspecified vomiting type Diarrhea, unspecified type Procedures: EKG-12 Lead ROUTINE ONCE Date/Time: 05/05/2024 2:33 PM Performed by: Jimbo Romero MD Authorized by: Jimbo Romero MD ECG interpreted by ED Physician in the absence of a editor: yes Previous ECG: Previous ECG: Compared to current Comparison ECG info: Compared to EKG of 09/15/2023 no significant changes Interpretation: Interpretation: non-specific Rate: ECG rate: 67 ECG rate assessment: normal Rhythm: Rhythm: sinus rhythm Ectopy: Ectopy: none QRS: QRS axis: Normal (-13) ST segments: ST segments: Non-specific T waves: T waves: non-specific Comments: Qtc 454 MDM: Medical Decision Making Primary impression: nausea with vomiting Secondary impression: diarrhea, abdominal pain Differential Diagnoses, including but not limited to: electrolyte / glucose abnl, anemia, manuel, pancreatitis, gastritis, cholecystitis, recurrent diverticulitis, cystitis, arrhythmia, acute coronary event Problems Addressed: Abdominal pain, unspecified abdominal location: acute illness or injury Nausea and vomiting, unspecified vomiting type: acute illness or injury Amount and/or Complexity of Data Reviewed Independent Historian: Details: self Labs: ordered. Decision-making details documented in ED Course. Radiology: ordered. Decision-making details documented in ED Course. Risk Prescription drug management. Parenteral controlled substances. Risk Details: Unremarkable OBS in ED. Symptoms improved. Declines PO challenge. Resting comfortably. Findings and plan discussed with patient. No findings that require acute hospitalization today. Symptomatic mgmt. Flowsheet Documentation: Scoring Tools: No data recorded Disposition/Condition: ED Disposition ED Disposition Disch - Home Condition Stable Comment -- Discharge Medications: Patient's Medications START taking these medications DICYCLOMINE 20 MG TABLET Take 1 tablet by mouth every 6 (six) hours as needed for Abdominal pain. PROMETHAZINE 25 MG TABLET Take 1 tablet by mouth every 6 (six) hours as needed for Nausea and Vomiting (N/V). TRAMADOL 50 MG TABLET Take 1 tablet by mouth every 6 (six) hours as needed (pain). Indications: acute pain CONTINUE taking these medications which have NOT CHANGED ALBUTEROL 90 MCG/ACTUATION INHALER Inhale 2 Puffs every 4 (four) hours as needed for Wheezing or Shortness of Breath. ASPIRIN 81 MG CHEWABLE TABLET Take 1 tablet by mouth in the morning. BENZONATATE 100 MG CAPSULE Take 1 capsule by mouth every 8 (eight) hours as needed for Cough. BUSPIRONE 10 MG TABLET Take 2 tablets by mouth in the morning and 2 tablets in the evening. Take 2 tablets by mouth twice a day DIAZEPAM 5 MG TABLET Take 1 tablet by mouth 2 (two) times daily as needed for Agitation or Anxiety. KETOROLAC 10 MG TABLET Take 1 tablet by mouth every 8 (eight) hours. METOPROLOL TARTRATE 50 MG TABLET Take 2 tablets by mouth in the morning. Take 2 tablets by mouth once daily OMEPRAZOLE 20 MG TABLET Take 1 tablet by mouth in the morning. ONDANSETRON 4 MG TABLET Take 1 tablet by mouth every 6 (six) hours as needed for Nausea and Vomiting (N/V). ONDANSETRON 4 MG TABLET Take 1 tablet by mouth every 8 (eight) hours as needed for Nausea and Vomiting (N/V). PANTOPRAZOLE 40 MG EC TABLET TAKE ONE TABLET BY MOUTH DAILY TRAZODONE 50 MG TABLET Take 1 tablet by mouth at bedtime as needed for Insomnia. START taking Modified Medications as Prescribed No medications on file STOP taking these medications No medications on file Follow-up: PCP Electronically signed by: Jimbo Romero MD 05/05/24 1736 [facility] 2024-01-23 16:30:35 Problem: Pain Goal: Control of pain at or below patient's documented comfort goal Outcome: Adequate for discharge Goal: Reduction in pain sensation Outcome: Adequate for discharge Problem: Venous Thromboembolism, (actual or risk of) Goal: Absence of venous thromboembolism (Risk) Outcome: Adequate for discharge Goal: Prevent further complications associated with VTE diagnosis (Actual) Outcome: Adequate for discharge Problem: Skin integrity Impaired (Risk or Actual) Goal: Prevention of new skin breakdown Outcome: Adequate for discharge Problem: Discharge Planning Goal: Adequate for discharge Outcome: Adequate for discharge Selene Alvarze RN [facility] 2024-01-23 03:58:50 Problem: Pain Goal: Control of pain at or below patient's documented comfort goal Outcome: Progressing as expected Goal: Reduction in pain sensation Outcome: Progressing as expected Problem: Venous Thromboembolism, (actual or risk of) Goal: Absence of venous thromboembolism (Risk) Outcome: Progressing as expected Goal: Prevent further complications associated with VTE diagnosis (Actual) Outcome: Progressing as expected Problem: Skin integrity Impaired (Risk or Actual) Goal: Prevention of new skin breakdown Outcome: Progressing as expected Problem: Discharge Planning Goal: Adequate for discharge Outcome: Progressing as expected Katelyn Raymond RN [facility] 2024-01-22 17:23:03 Problem: Pain Goal: Control of pain at or below patient's documented comfort goal Outcome: Progressing as expected Goal: Reduction in pain sensation Outcome: Progressing as expected Problem: Venous Thromboembolism, (actual or risk of) Goal: Absence of venous thromboembolism (Risk) Outcome: Progressing as expected Goal: Prevent further complications associated with VTE diagnosis (Actual) Outcome: Progressing as expected Problem: Skin integrity Impaired (Risk or Actual) Goal: Prevention of new skin breakdown Outcome: Progressing as expected Problem: Discharge Planning Goal: Adequate for discharge Outcome: Progressing as expected [facility] 2024-01-21 23:40:11 Problem: Pain Goal: Control of pain at or below patient's documented comfort goal Outcome: Progressing as expected Goal: Reduction in pain sensation Outcome: Progressing as expected Problem: Venous Thromboembolism, (actual or risk of) Goal: Absence of venous thromboembolism (Risk) Outcome: Progressing as expected Goal: Prevent further complications associated with VTE diagnosis (Actual) Outcome: Progressing as expected Problem: Skin integrity Impaired (Risk or Actual) Goal: Prevention of new skin breakdown Outcome: Progressing as expected Problem: Discharge Planning Goal: Adequate for discharge Outcome: Progressing as expected [facility] 2024-01-21 12:04:59 Problem: Pain Goal: Control of pain at or below patient's documented comfort goal Outcome: Progressing as expected Goal: Reduction in pain sensation Outcome: Progressing as expected Problem: Venous Thromboembolism, (actual or risk of) Goal: Absence of venous thromboembolism (Risk) Outcome: Progressing as expected Goal: Prevent further complications associated with VTE diagnosis (Actual) Outcome: Progressing as expected Problem: Skin integrity Impaired (Risk or Actual) Goal: Prevention of new skin breakdown Outcome: Progressing as expected Problem: Discharge Planning Goal: Adequate for discharge Outcome: Progressing as expected [facility] Jasen Clancy RN [facility] 2024-01-20 23:32:54 Problem: Pain Goal: Control of pain at or below patient's documented comfort goal 01/20/20242331 by Armando Ram RN Outcome: Progressing as expected 01/20/20242331 by Armando Ram RN Outcome: Progressing as expected 01/20/20242330 by Armando Ram RN Outcome: Progressing as expected Goal: Reduction in pain sensation 01/20/20242331 by Armando Ram RN Outcome: Progressing as expected 01/20/20242331 by Armando Ram RN Outcome: Progressing as expected 01/20/20242330 by Armando Ram RN Outcome: Progressing as expected Problem: Venous Thromboembolism, (actual or risk of) Goal: Absence of venous thromboembolism (Risk) 01/20/20242331 by Armando Ram RN Outcome: Progressing as expected 01/20/20242331 by Armando Ram RN Outcome: Progressing as expected 01/20/20242330 by Armando Ram RN Outcome: Progressing as expected Goal: Prevent further complications associated with VTE diagnosis (Actual) 01/20/20242331 by Armando Ram RN Outcome: Progressing as expected 01/20/2024 233 by Armando Ram RN Outcome: Progressing as expected 01/20/20242330 by Armando Ram RN Outcome: Progressing as expected Problem: Skin integrity Impaired (Risk or Actual) Goal: Prevention of new skin breakdown 01/20/20242331 by Armando Ram RN Outcome: Progressing as expected 01/20/20242331 by Armando Ram RN Outcome: Progressing as expected 01/20/20242330 by Armando Ram RN Outcome: Progressing as expected Problem: Discharge Planning Goal: Adequate for discharge 01/20/20242331 by Armando Ram RN Outcome: Progressing as expected 01/20/20242331 by Armando Ram RN Outcome: Progressing as expected 01/20/20242330 by Armando Ram RN Outcome: Progressing as expected [facility] 2024-01-20 18:47:33 Patient admitted to [facility] for diagnosis of generalized abdominal pain, facial swelling, dental caries, alcohol dependence with unspecified alcohol-induced disorder, acute diverticulitis of intestine. Patient agrees to admission, discussed plan of care with patient and family. Patient is awake, A&Ox4, RR even and unlabored on RA. Color appropriate for race. PIV intact x2 infusing normal saline. No adverse reaction to medications administered while in ED. Belongings with patient to unit. [facility] 2024-01-20 18:46:28 Nurse Report Report given to BONY Aggarwal. Chief complaint, assessment findings, infusion verify and orders reviewed. Plan of care discussed with both nurses. Patient/family members verbalized understanding. Patricia Da Silva RN [facility] 2024-01-20 15:40:50 Patient arrived via [facility] c/o of abdominal pain on and off for the past several weeks associated with nausea, vomiting, diarrhea today it has gotten worse where she had trouble keep her balance at work. EMS established iv pilot captain gave 15 toradol, 40 of fentanyl and 4 zofran. Hx: pancreatitis [facility] 2024-01-20 15:37:00 AdmissionCare Guideline: Diverticulitis (Acute) - OBS, Observation Based on the indications selected for the patient, the bed status of Observation was determined to be MET The following indications were selected as present at the time of evaluation of the patient: - Acute symptoms (eg, pain, vomiting) not sufficiently responsive to emergency department care - Findings necessitating further evaluation (eg, abscess, pericolic extraluminal gas on imaging) AdmissionCare documentation entered by: Jeanna Jo [facility], 27th edition, Copyright ? 2022 [facility] [employer] [facility] All Rights Reserved. [id number] [facility] 2023-11-09 13:48:59 TRANSITIONAL CARE MANAGEMENT ASSESSMENT 11/09/2023 Melanie Salgado [id number] Melanie Salgado is a 48 year old /White female was admitted on 11/03/23 to [facility] ICU. She was discharged on 11/05/23 with discharge disposition of HR- Routine Discharge. Admitting Physician: Rubia Saleem Discharge Diagnosis: Acute alcoholic pancreatitis Hypokalemia Hypomagnesemia Linked Episodes Type: Episode: Status: Noted: Resolved: Last update: Updated by: TRANSITION OF CARE TCM Active 11/09/2023 11/09/2023 9:38 AM Nighat Sanchez RN Comments: TCM [id number] outreach documentation: Discharge Assessment Chart Assessed: 11/09/23 Future Appointments: Future Appointments Provider Department Dept Phone 12/20/2023 2:00 PM Jessica [facility]iedra [facility] [phone] Transition CM attempted to contact patient x2. CM left a discreet voicemail explaining purpose of call and call back information. 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 Will attempt again at a later time. 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 [facility] 2023-11-05 12:49:40 Problem: Discharge Planning Goal: Adequate for discharge Outcome: Adequate for discharge Goal: Effective communication Outcome: Adequate for discharge Problem: Pain Goal: Control of pain at or below patient's documented comfort goal Outcome: Adequate for discharge Goal: Reduction in pain sensation Outcome: Adequate for discharge Problem: Falls, Risk of Goal: Absence of falls Outcome: Adequate for discharge I Cuenca RN [facility] 2023-11-04 23:01:08 Problem: Discharge Planning Goal: Adequate for discharge Outcome: Progressing as expected Goal: Effective communication Outcome: Progressing as expected Problem: Pain Goal: Control of pain at or below patient's documented comfort goal Outcome: Progressing as expected Goal: Reduction in pain sensation Outcome: Progressing as expected Problem: Falls, Risk of Goal: Absence of falls Outcome: Progressing as expected [facility] 2023-11-04 18:58:13 Problem: Discharge Planning Goal: Adequate for discharge Outcome: Progressing as expected Goal: Effective communication Outcome: Progressing as expected Problem: Pain Goal: Control of pain at or below patient's documented comfort goal Outcome: Progressing as expected Goal: Reduction in pain sensation Outcome: Progressing as expected Problem: Falls, Risk of Goal: Absence of falls Outcome: Progressing as expected [facility] 2023-11-04 03:41:35 Problem: Discharge Planning Goal: Adequate for discharge Outcome: Progressing as expected Goal: Effective communication Outcome: Progressing as expected Problem: Pain Goal: Control of pain at or below patient's documented comfort goal Outcome: Progressing as expected Goal: Reduction in pain sensation Outcome: Progressing as expected Problem: Falls, Risk of Goal: Absence of falls Outcome: Progressing as expected [facility] 2023-11-04 01:40:57 Patient admitted to Med/surg for diagnosis of epigastric abdominal pain, alcohol-indused acute pancreatitis, and hypokalemia Patient agrees to admission, discussed plan of care with patient and family. Patient is awake, alert, oriented, resp reg unlabored, color appropriate for race, PIV intact No adverse reaction to medications administered while in ED Belongings with patient to unit Report to Mónica LOVETT I Elder RN [facility] 2023-11-04 00:59:08 Nurse Report Report given to BONY Sales over the phone, no questions received. Chief complaint, assessment findings and medications were discussed. Plan of care discussed with patient, patient aware of plan. Patient in stable condition at time report was given,no distress. Vital signs reassessed. Patient will be moved upstairs shortly. Jodi Peter RN I Peter RN [facility] 2023-11-03 22:44:30 Abdominal pain and nausea since AM. Tender to mid upper abdomen. Vomited x 3 and "a lot of dry heaving" HX: Anxiety, HTN, Pancreatitis LJEMS started 18 g iv to right forearm Gave: 1 liter NACL 15mg toradol 12.5 mg Phenergan 100 mcg Fentanyl BGL 180 I Paul RN [facility] 2023-11-03 22:42:00 [facility] Emergency Department Note Patient Name: Melanie Salgado Date of : 1975 48 year old female Treatment [facility] Primary Care Physician: Jessica Piedra Patient Escorted by: Self [9] Mode of Arrival: EMS - [facility] [51] EMS Treatment Prior to ED Arrival: Travel and Exposure Screening: Symptoms Does patient have any of these symptoms?: (not recorded) Exposure Screening Has patient had contact with someone with a communicable disease in the last month?: (not recorded) Diseases exposed to:: (not recorded) Is Patient ?: (not recorded) Exposure Date: (not recorded) Chief Complaint: Chief Complaint Patient presents with Abdominal Pain History of Present Illness: This is a 48 year old female with [...] promethazine. Patient reports symptoms are significantly improved afterward. Past Medical History/Immunizations: Past Medical History: Diagnosis Date Alcoholism Anxiety Depression HTN (hypertension) Pancreatitis Tetanus received in last 5 years: Yes Childhood immunizations: Up-to-date Allergies: Allergies Allergen Reactions Rocephin [Ceftriaxone Sodium] Anaphylaxis Past Social History: Tobacco Use Every Day; 0.50 packs/day for 20.00 years; Types: Cigarettes Smokeless Tobacco: Never used smokeless tobacco. Vaping Use Never used Alcohol Use Not Currently. Comments: quit Nov 2019 Drug Use Yes; Marijuana. Past Surgical History: Past Surgical History: Procedure Laterality Date COLONOSCOPY N/A 03/05/2020 Surgeon: Nohemi Magallon MD; Location: [facility] OR Location ESOPHAGOGASTRODUODENOSCOPY Upper 03/04/2020 Surgeon: Nohemi Magallon MD; Location: [facility] OR [facility] [place] ANESTHESIA FACIAL BONES OR SKULL NOS REVISE TOTAL HIP REPLACEMENT Review of Systems: Review of Systems Constitutional: Negative for chills and fever. HENT: Negative for congestion. Respiratory: Negative for cough and shortness of breath. Cardiovascular: Negative for chest pain and leg swelling. Gastrointestinal: Positive for abdominal pain, nausea and vomiting. Negative for blood in stool and diarrhea. Genitourinary: Negative for dysuria and frequency. Musculoskeletal: Negative for back pain. Skin: Negative for rash. Neurological: Negative for dizziness, weakness, numbness and headaches. Psychiatric/Behavioral: Negative for confusion. Physical Exam: ED Triage Vitals [11/03/238] Weight 77.1 kg (170 lb) Actual or estimated Estimated by patient/family report Height 1.6 m (5' 3") BP (!) 182/132 Pulse 85 Resp 14 Temp 36.8 ?C (98.3 ?F) Temp source Oral SpO2 96 % Measured on Room air Physical Exam Vitals and nursing note reviewed. Constitutional: General: She is not in acute distress. Appearance: Normal appearance. She is well-developed. She is not ill-appearing, toxic-appearing or diaphoretic. HENT: Nose: No congestion. Mouth/Throat: Mouth: Mucous membranes are moist. Eyes: General: No scleral icterus. Conjunctiva/sclera: Conjunctivae normal. Cardiovascular: Rate and Rhythm: Normal rate and regular rhythm. Heart sounds: Normal heart sounds. No murmur heard. No friction rub. No gallop. Pulmonary: Effort: Pulmonary effort is normal. No respiratory distress. Breath sounds: Normal breath sounds. No stridor. No wheezing or rales. Abdominal: General: There is no distension. Palpations: There is no mass. Tenderness: There is abdominal tenderness. There is no guarding or rebound. Comments: Epigastric tenderness, no peritonitis, no Qureshi's sign. Musculoskeletal: Cervical back: Normal range of motion and neck supple. Right lower leg: No edema. Left lower leg: No edema. Skin: General: Skin is warm and dry. Capillary Refill: Capillary refill takes less than 2 seconds. Coloration: Skin is not pale. Findings: No erythema or rash. Neurological: General: No focal deficit present. Mental Status: She is alert and oriented to person, place, and time. Psychiatric: Mood and Affect: Mood normal. Behavior: Behavior normal. Radiology: No orders to display Lab Results: Lab Results COMP. METABOLIC PANEL (98020) - Abnormal Result Value Ref Range NA 136 135 - 145 mmol/L K 2.6 (*) 3.5 - 5.0 mmol/L CL 101 98 - 108 mmol/L CO2 TOTAL 26 23 - 31 mmol/L AGAP 9 2 - 16 BUN 20 7 - 23 mg/dL GLUCOSE 180 (*) 70 - 110 mg/dL CREATININE 0.64 0.50 - 1.04 mg/dL TOTAL BILI 0.6 0.1 - 1.1 mg/dL CALCIUM 9.0 8.6 - 10.6 mg/dL T PROTEIN 7.0 6.3 - 8.2 g/dL ALBUMIN 4.0 3.5 - 5.0 g/dL ALK PHOS 111 34 - 122 U/L ALTv 56 (*) 5 - 35 U/L AST(SGOT) 50 (*) 13 - 40 U/L eGFR 109.2 mL/min/1.73m2 LIPASE - Abnormal LIPASE 1,327 (*) 0 - 220 U/L CBC WITH DIFF - Abnormal WBC 8.96 4.30 - 11.10 10*3/?L RBC 4.18 3.93 - 5.25 10*6/?L HGB 12.1 11.6 - 15.0 g/dL HCT 37.3 35.7 - 45.2 % MCV 89.2 80.6 - 95.5 fL MCH 28.9 25.9 - 32.8 pg MCHC 32.4 31.6 - 35.1 g/dL RDW-SD 47.8 39.0 - 49.9 fL RDW-CV 14.7 12.0 - 15.5 % PLT 243 166 - 358 10*3/?L MPV 10.0 9.5 - 12.9 fL NRBC/100 WBC 0.0 0.0 - 10.0 /100 WBCs NRBC x10 3 <0.01 10*3/?L GRAN MAT (NEUT) % 86.6 % IMM GRAN % 0.40 % LYMPH % 7.5 % MONO % 4.9 % EOS % 0.2 % BASO % 0.4 % GRAN MAT x10 3 (ANC) 7.75 (*) 1.88 - 7.09 10*3/uL IMM GRAN x10 3 0.04 0.00 - 0.06 10*3/uL LYMPH x10 3 0.67 (*) 1.32 - 3.29 10*3/uL MONO x10 3 0.44 0.33 - 0.92 10*3/uL EOS x10 3 <0.03 (*) 0.03 - 0.39 10*3/uL BASO x10 3 0.04 0.01 - 0.07 10*3/uL TROPONIN I - Normal TROPONIN I <0.012 <=0.034 ng/mL HEPATIC FUNCTION PANEL (00218) (ALB,T.PRO,BILI T,BU/BC,ALT,AST,ALK PHOS) PHOSPHORUS LIPASE EKG: If EKG completed, see Procedure Note. Orders and Treatments: Orders Placed This Encounter Procedures US ABDOMEN LIMITED COMP. METABOLIC PANEL (33572) LIPASE TROPONIN I CBC WITH DIFF CBC with Differential Basic Metabolic Panel (NA, K, CL, CO2, GLUCOSE, BUN, CREATININE, CA) HEPATIC FUNCTION PANEL (61869) (ALB,T.PRO,BILI T,BU/BC,ALT,AST,ALK PHOS) Magnesium Serum Phosphorus Serum Lipase Orders Placed This Encounter Medications famotidine (PEPCID (PF)) injection 20 mg ondansetron (ZOFRAN (PF)) injection 4 mg lactated ringers IV infusion 1,000 mL potassium chloride in water 10 mEq/100 mL RTU 10 mEq cloNIDine (CATAPRES) tablet 0.1 mg FENTanyl PF (SUBLIMAZE (PF)) injection 50 mcg NaCl 0.9% (NS) IV infusion 1,000 mL enoxaparin (LOVENOX) injection 30 mg acetaminophen (TYLENOL) tablet 650 mg HYDROcodone-acetaminophen (NORCO 5) 5-325 mg tablet 1 tablet FENTanyl PF (SUBLIMAZE (PF)) injection 25 mcg docusate (COLACE) capsule 100 mg ondansetron (ZOFRAN (PF)) injection 4 mg chlordiazePOXIDE (LIBRIUM) capsule 10 mg diazePAM (VALIUM) injection 2 mg First Provider Eval: ED Events Date/Time Event User Comments 11/03/232246 Medical Screening Begins BENEDICTO VALENTIN MD R -- 11/03/232246 First Provider Evaluation BENEDICTO VALENTIN MD R -- ED COURSE ED Course as of 11/04/236 MonNov 03, 2023 2359 Lipase elevated. K+ is 2.6 from emesis, will replete IV. Keep NPO. Admit for pancreatitis, likely ETOH induced, patient updated and agreeable to stay. Start maintenance IV fluids. Glucose normal, no AG. Clonidine for elevated BP. [RM] 2302 MDM: Epigastric burning pain, too numerous to [...] administration for the time being. Keep NPO. [RM] ED Course User Index [RM] Benedicto Valentin MD Diagnosis/Impression as of 11/04/23 0046 Epigastric abdominal pain Alcohol-induced acute pancreatitis, unspecified complication status Hypokalemia Procedures: Procedures MDM: Medical Decision Making Amount and/or Complexity of Data Reviewed Labs: ordered. Risk Prescription drug management. Parenteral controlled substances. Decision regarding hospitalization. Flowsheet Documentation: Scoring Tools: No data recorded Disposition/Condition: ED Disposition ED Disposition Admit - Inpatient Condition Stable Comment -- Discharge Medications: Patient's Medications START taking these medications No medications on file CONTINUE taking these medications which have NOT CHANGED ALBUTEROL 90 MCG/ACTUATION INHALER Inhale 2 Puffs every 4 (four) hours as needed for Wheezing or Shortness of Breath. AMLODIPINE 10 MG TABLET Take 10 mg by mouth daily. BUSPIRONE 5 MG TABLET Take 5 mg by mouth 2 (two) times daily. FLUOXETINE 40 MG CAPSULE Take 40 mg by mouth daily. GQHCHC-[id number]-MHCBENK (CREON) 36,000-114,000- 180,000 UNIT CPDR Take 2 capsules by mouth before meals. Take 2 capsules by mouth with meals and 1 with each snack. METOPROLOL SUCCINATE XL 25 MG 24 HR TABLET Take 25 mg by mouth daily. PANTOPRAZOLE 40 MG EC TABLET TAKE ONE TABLET BY MOUTH DAILY START taking Modified Medications as Prescribed No medications on file STOP taking these medications LEVOFLOXACIN 750 MG TABLET Take 1 tablet by mouth every 24 (twenty-four) hours. Follow-up: Electronically signed by: Benedicto Valentin MD 11/04/23 0017 Benedicto Valentin MD 11/04/23 0046 [facility]
[2024-10-16] MEDS ORDERED: cloNIDine HCL 0.1 MG TAB ONE (23:17)
--- NOTE | 2024-10-17 00:25 | ER ---
Nurse's Notes [facility] Name: Melanie Salgado Age: 48 yrs Sex: Female : 1975 Arrival Date: 10/16/2024 Time: 22:28 Bed DX1 Private MD: Diagnosis: Essential (primary) hypertension Presentation: 10/16 22:53 Chief complaint: Patient states: currently in treatment for ETOH abuse. My BP has been lg3 high and i think i just need a medication adjustment but the facility is making me come here. i would have rather called my doctor in the morning but they didn't give me a choice. i have diverticulitis so the pain is something that i have had. Coronavirus screen: Client denies travel out of the [place] in the last 14 days. At this time, the client does not indicate any symptoms associated with coronavirus-19. Ebola Screen: No symptoms or risks identified at this time. Initial Sepsis Screen: Does the patient meet any 2 criteria? No. Patient's initial sepsis screen is negative. Does the patient have a suspected source of infection? No. Patient's initial sepsis screen is negative. Risk Assessment: Do you want to hurt yourself or someone else? Patient reports no desire to harm self or others. Onset of symptoms was October 16, 2024. 22:53 Method Of Arrival: EMS: [facility] 3 22:53 Acuity: STEVEN 3 lg3 Triage Assessment: 22:57 General: Appears in no apparent distress. comfortable, Behavior is calm, cooperative. lg3 Pain: Complains of pain in chest Pain does not radiate. Pain currently is 2 out of 10 on a pain scale. Quality of pain is described as heavy. EENT: No deficits noted. No signs and/or symptoms were reported regarding the EENT system. Neuro: No deficits noted. Quiñones Agitation-Sedation Scale (RASS): 0 - Alert and Calm Level of Consciousness is awake, alert, obeys commands, Oriented to person, place, time, situation. Cardiovascular: No deficits noted. Reports chest pain, Heart tones S1 S2 present Capillary refill < 3 seconds Clubbing of nail beds is absent JVD is absent Patient's skin is warm and dry. Respiratory: No deficits noted. Airway is patent Trachea midline Respiratory effort is even, unlabored, Respiratory pattern is regular, symmetrical. GI: No deficits noted. No signs and/or symptoms were reported involving the gastrointestinal system. : No signs and/or symptoms were reported regarding the genitourinary system. Derm: No deficits noted. No signs and/or symptoms reported regarding the dermatologic system. Skin is intact, is healthy with good turgor, Skin is dry, Skin is normal, Skin temperature is warm. Musculoskeletal: No deficits noted. No signs and/or symptoms reported regarding the musculoskeletal system. Circulation, motion, and sensation intact. Range of motion: intact in all extremities. FLEXIBLE NANNY: 22:57 LMP N/A - Post-menopause, Not lg3 Historical: - Allergies: 22:57 Cipro IV; lg3 22:57 Rocephin; lg3 - Home Meds: 22:57 Metoprolol Tartrate Oral [Active]; losartan oral [Active]; Prozac Oral [Active]; lg3 Protonix Oral [Active]; - PMHx: 22:57 Diverticulitis; Gastroesophageal reflux disease; Hypertensive disorder; Pancreatitis; lg3 - PSHx: 22:57 None; lg3 - Immunization history:: Adult Immunizations up to date. - Infectious Disease History:: Denies. - Social history:: Smoking status: Reported history of juuling and/or vaping. Patient uses alcohol, currently in ETOH treatment/rehab. days since last use . Patient/guardian denies using street drugs. Screenin:01 [facility] ED Fall Risk Assessment (Adult) History of falling in the last 3 months, lg3 including since admission No falls in past 3 months (0 pts) Confusion or Disorientation No (0 pts) Intoxicated or Sedated No (0 pts) Impaired Gait No (0 pts) Mobility Assist Device Used No (0 pt) Altered Elimination No (0 pt) Score/Fall Risk Level 0 - 2 = Low Risk Oriented to surroundings, Maintained a safe environment, Educated pt \T\ family on fall prevention, incl call for assistance when getting out of bed, Assessed \T\ reinforced patient's understanding of fall precautions. Abuse screen: Denies threats or abuse. Denies injuries from another. Nutritional screening: No deficits noted. Tuberculosis screening: No symptoms or risk factors identified. Assessment: 23:01 General: see triage assessment. Pain: Pain began chronic diverticulitis and lg3 pancreatitis. 23:12 General: pt refusing EKG, iv and blood work at this time. pt request PO medication for lg3 blood pressure. provider notified . 23:48 Reassessment: Patient appears in no apparent distress at this time. No changes from lg3 previously documented assessment. Patient and/or family updated on plan of care and expected duration. Pain level reassessed. Patient is alert, oriented x 3, equal unlabored respirations, skin warm/dry/pink. Vital Signs: 22:53 BP 186 / 106; Pulse 84; Resp 17 S; Temp 98.3(O); Pulse Ox 99% on R/A; Weight 77.11 kg lg3 (R); Height 5 ft. 4 in. (R); 12 00:07 BP 175 / 102; Pulse 81; Resp 18 S; Pulse Ox 99% on R/A; lg3 00:46 BP 157 / 79; Pulse 80; Resp 16; Pulse Ox 98% on R/A; kmf 10/16 22:53 Body Mass Index 29.18 (77.11 kg, 162.56 cm) lg3 ED Course: 10/16 22:31 Patient arrived in ED. gm2 22:33 Kimberly Le FNP-C is PHCP. kb 22:33 Jose Maria Camarena MD is Attending Physician. kb 22:56 XRAY Chest (1 view) In Process Unspecified. EDMS 22:57 Triage completed. lg3 22:57 Arm band placed on left wrist. lg3 23:01 Patient has correct armband on for positive identification. lg3 23:01 Patient maintains SpO2 saturation greater than 95% on room air. lg3 23:24 Patient taken to lobby, ambulatory, steady gait. lg3 10/17 01:05 No provider procedures requiring assistance completed. Patient did not have IV access lg3 during this emergency room visit. 01:06 pt refused cardiac monitoring during ED duration. lg3 Administered Medications: 10/16 23:23 Drug: cloNIDine PO 0.1 mg PO once Route: PO; lg3 10/17 01:06 Follow up: Response: No adverse reaction; Marked relief of symptoms; Blood pressure is lg3 lowered Medication: 01:06 VIS not applicable for this client. lg3 Outcome: 00:25 Discharge ordered by . kb 01:05 Discharged to home ambulatory, lg3 01:05 Condition: stable 01:05 Discharge instructions given to patient, Instructed on discharge instructions, follow up and referral plans. Demonstrated understanding of instructions, follow-up care, 01:07 Patient left the ED. lg3 Signatures: Dispatcher [employer] EDKimberly Rodgers, DANN FU-Sera Richard RN RN lg3 Danielle Pascual [address] Corrections: (The following items were deleted from the chart) 10/16 23:24 23:22 General: pt refusing iv and blood work at this time. pt request PO medication for lg3 blood pressure . lg3
--- NOTE | 2024-10-17 00:25 | EDPHYS ---
Physician Documentation [facility] Name: Melanie Salgado Age: 48 yrs Sex: Female : 1975 Arrival Date: 10/16/2024 Time: 22:28 Bed DX1 Private MD: ED Physician Jose Maria Camarena HPI: 10/17 00:11 This 48 yrs old Female presents to ER via EMS with complaints of Chest Pain. kb 00:11 Pt is a 48 year old female who presents for high blood pressure. states she is kb currently in rehab for alcohol abuse. They checked her BP and it was high. They called EMS due to protocol. States she didn't want to come. Pt does report chest pain, but states that is normal for her. Denies any new symptoms. . 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 - Infectious Disease History:: Denies. - Social history:: Smoking status: Reported history of juuling and/or vaping. Patient uses alcohol, currently in ETOH treatment/rehab. days since last use . Patient/guardian denies using street drugs. ROS: 10/17 00:08 Constitutional: As per HPI kb Exam: 00:08 Constitutional: This is a well developed, well nourished patient who is awake, alert, kb and in no acute distress. Head/Face: Normocephalic, atraumatic. ENT: Moist Mucous membranes Cardiovascular: Regular rate Respiratory: Respirations even and unlabored. No increased work of breathing. Talking in full sentences Skin: Warm, dry with normal turgor. Normal color. MS/ Extremity: Pulses equal, no cyanosis. Neurovascular intact. Full, normal range of motion. Neuro: Awake and alert, GCS 15, oriented to person, place, time, and situation. 00:08 Abdomen/GI: Inspection: abdomen appears normal, Bowel sounds: normal, Palpation: soft, in all quadrants, mild abdominal tenderness, in all quadrants, Vital Signs: 10/16 22:53 BP 186 / 106; Pulse 84; Resp 17 S; Temp 98.3(O); Pulse Ox 99% on R/A; Weight 77.11 kg lg3 (R); Height 5 ft. 4 in. (R); 12 00:07 BP 175 / 102; Pulse 81; Resp 18 S; Pulse Ox 99% on R/A; lg3 00:46 BP 157 / 79; Pulse 80; Resp 16; Pulse Ox 98% on R/A; kmf 10/16 22:53 Body Mass Index 29.18 (77.11 kg, 162.56 cm) lg3 MDM: 10/16 22:33 Medical Screening Exam initiated kb 10/17 00:09 Differential diagnosis: malignant hypertension, arrhythmia, acute mi. Data reviewed: vital signs, nurses notes. Historians other than the Patient: EMS: [facility]. Refusal of service: The patient/guardian displays adequate decision making capability and despite a detailed discussion of alternatives, benefits, risks, and consequences refuses: all lab tests. ED course: Pt states she really didn't want to come in. States she has chronic chest and abd pain so she doesn't think she needs any diagnostic testing. States she would like to get her bp down so she can get back to rehab. 00:24 Counseling: I had a detailed discussion with the patient and/or guardian regarding the kb historical points, exam findings, and any diagnostic results supporting the discharge/admit diagnosis, the need for outpatient follow up, a family practitioner, to return to the emergency department if symptoms worsen or persist or if there are any questions or concerns that arise at home. ED course: Pt requests to go back to facility. States she is tired, but otherwise doesn't have any symptoms. States "It was stupid that I had to come here.". 10/16 22:33 Order name: XRAY Chest (1 view) kb 10/16 22:33 Order name: EKG; Complete Time: 22:34 kb 10/16 22:33 Order name: O2 Per Protocol; Complete Time: 23:56 kb 10/16 22:33 Order name: O2 Sat Monitoring; Complete Time: 23:56 kb 10/17 00:07 Order name: Vital Signs; Complete Time: 00:28 kb Administered Medications: 10/16 23:23 Drug: cloNIDine PO 0.1 mg PO once Route: PO; lg3 10/17 01:06 Follow up: Response: No adverse reaction; Marked relief of symptoms; Blood pressure is lg3 lowered Disposition: 21:16 Co-signature as Attending Physician, Jose Maria Camarena MD I agree with the assessment sp4 and plan of care. I reviewed the patient's care provided by the Advanced Practice Provider and agree with the diagnosis and treatment plan. Disposition Summary: 10/17/24 00:25 Discharge Ordered Notes: Location: Home kb Condition: Stable kb Diagnosis - Essential (primary) hypertension kb Followup: kb - With: Emergency Department - When: As needed - Reason: Worsening of condition Followup: kb - With: Private Physician - When: 2 - 3 days - Reason: Recheck today's complaints, Continuance of care, Re-evaluation by your physician Discharge Instructions: - Discharge Summary Sheet kb - Hypertension, Adult, [id number] kb - Managing Your Hypertension kb Forms: - Medication Reconciliation Form kb - Antibiotic Education kb - Prescription Opioid Use kb - Patient Portal Instructions kb - Leadership Thank You Letter kb Signatures: Dispatcher [employer] EDKimberly Rodgers FNP-Malinda HINOJOSAP-Sera Richard, RN RN Jose Maria Romero MD MD sp4 Corrections: (The following items were deleted from the chart) 10/16 22:34 22:34 BASIC METABOLIC PANEL+C.LAB.BRZ ordered. EDMS EDMS 22:34 22:34 CBC+H.LAB.BRZ ordered. EDDC EDMS 22:34 22:34 Troponin High Sensitivity+C.LAB.BRZ ordered. EDDC EDMS 23:56 22:33 Cardiac monitoring ordered. kb 3 23:56 22:33 EKG - Nurse/Tech ordered. kb 3 23:56 22:33 IV Saline Lock ordered. kb 3 23:56 22:33 Labs collected and sent ordered. kb lg3 10/17 00:25 00:25 Chest pain, unspecified kb kb
--- NOTE | 2024-10-17 06:06 | RAD REPORT ---
EXAM DESCRIPTION: Chest Single View CLINICAL HISTORY: CHEST PAIN TECHNIQUE: AP chest COMPARISON: None available for comparison FINDINGS: CHEST: Heart: The cardiomediastinal silhouette is within normal limits. Lungs: No focal consolidation. Mediastinum: Unremarkable Pleura: No appreciable effusion. No pneumothorax. Bones: Intact IMPRESSION: No acute cardiopulmonary disease. Electronically signed by: Jt Chris MD 10/16/2024 11:52 PM [facility] Due to temporary technical issues with the PACS/[employer] reporting system, reports are being louie d by the in-house radiologist without review as a courtesy to ensure prompt reporting the interpreting radiologist is fully responsible for the content of the report. Transcribed Date/Time: 10/17/2024 6:05 AM
[2024-10-17 08:45] VITALS: TEMP 98.3
[2024-10-17 08:48] VITALS: BP 157/79; O2SAT 98
== END 2024-10-17 01:07 | disposition home or self-care (01) ==
LOC: ER 22:28
DX: I10 Essential (primary) hypertension (principal)
CPT/HCPCS: 71045; 99283